=== PATIENT | female | born 1960 | race Caucasian/White ===

== ENCOUNTER 2016-11-19 20:07 | Emergency (ER) | payer OTHER, SELFPAY ==
--- NOTE | 2016-11-19 21:09 | ERPHSYRPT ---
- History of Present Illness Time Seen by Provider: 11/19/16 21:03 Source: patient Exam Limitations: no limitations Patient Subjective Stated Complaint: Pt sts sore throat - feels like knives - rates pain 8/10 x 2 days with intermittent productive cough - yellow/white sputum. Sts pain in chest with coughing, deep breathing. Pt sts recently around grandson who was sick. Sts no fever. Sts body aches. Sts vomited x 1 last night after coughing fit. Denies nausea. Triage Nursing Assessment: Pt alert, oriented, answers all questions appropriately. Skin p/w/d, resps non-labored. Pt ambulatory to tx room without difficulty steady gait noted. Lung sounds clear equal bilat, no wheezes, rales, rhonchi noted. Heart RRR. SPO2 97% room air. Physician History: This is a 56-year-old morbidly obese white female with history of peripheral neuropathy, congestive heart failure coronary artery disease kidney disease, hypercholesterolemia, high blood pressure, myocardial infarction, sleep apnea, diabetes Patient arrives with complaint of sore throat for 2 days states she's been coughing yellow sputum cough has been intermittent the patient has not had any fever she does have diffuse body aches, symptoms for 2 days Patient has not been vomiting she has no chest pain She is not short of breath Patient is on chronic narcotic analgesia patient apparently takes hydrocodone 10 /325 she states that she has not been taking as much as prescribed the last couple of days. Past medical history includes referral vascular disease, congestive heart failure, coronary artery disease, hypercholesterolemia, high blood pressure, myocardial infarction, sleep apnea, diabetes type 2, fibromyalgia, Crohn's disease, anxiety, depression, clot in the lower left arm, shingles Past surgical history includes cardiac catheter, , tubal ligation, kidney stones removed, D&C Timing/Duration: yesterday Severity: moderate Modifying Factors: Improves With: nothing Associated Symptoms: cough, malaise, other (sore throat), No nausea, No vomiting , No abdominal pain, No shortness of breath, No heartburn, No diaphoresis, No chills, No chest pain, No fever, No headaches, No loss of appetite, No rash, No syncope, No seizure, No weakness Allergies/Adverse Reactions: cyclobenzaprine HCl [From Flexeril] Allergy (Mild, Verified 10/11/16 15:17) Rash Sulfa (Sulfonamide Antibiotics) [Sulfa(Sulfonamide Antibiotics)] Allergy (Mild, Verified 07/21/16 15:17) Rash adhesive Allergy (Verified 07/21/16 15:17) nalbuphine HCl [From Nubain] Adverse Reaction (Intermediate, Verified 07/21/16 15:17) Stomach Cramps patient states she had stomach "burning" and that her legs felt like "rubber bands" meperidine HCl [From Demerol] Adverse Reaction (Mild, Verified 07/21/16 15:17) Vomiting Home Medications: Alprazolam 1 mg [Xanax 1 mg] 1 mg PO TIDPRN PRN 03/17/16 [History] Atorvastatin Calcium [Lipitor] 10 mg PO DAILY 03/17/16 [History] Carvedilol 6.25 mg [Coreg 6.25 MG] 6.25 mg PO BID 03/17/16 [History] Doxycycline Hyclate 100 mg [Vibramycin 100 MG] 100 mg PO DAILY 03/17/16 [ History] Duloxetine HCl 60 mg PO DAILY 03/17/16 [History] Ergocalciferol (Vitamin D2) [Vitamin D2] 50,000 unit PO Q7D 03/17/16 [History] Glyburide 5 mg [Micronase 5 MG] 5 mg PO BID 03/17/16 [History] Hydrochlorothiazide 25 mg [hydroDIURIL 25 MG] 12.5 mg PO DAILY 03/17/16 [ History] Hydrocodone/APAP 10/325 mg [[place] 10/325 MG Tablet] 1 tab PO Q4H PRN PRN 03/17/16 [History] Isosorbide Mononitrate 60 mg [Imdur 60MG] 120 mg PO DAILY 03/17/16 [History] Magnesium Oxide 400 mg [Mag-Ox 400] 800 mg PO DAILY 03/17/16 [History] Meclizine HCl 25 mg [Antivert 25 mg] 25 mg PO TIDPRN 03/17/16 [History] Mesalamine [Pentasa] 1,000 mg PO TID 03/17/16 [History] Metformin HCl 1000 mg [Glucophage 1000 MG] 1,000 mg PO BID 03/17/16 [History] Methocarbamol 500 mg [Robaxin 500 MG] 500 mg PO QIDPRN PRN 03/17/16 [ History] Metoclopramide HCl 10 mg [Reglan 10 MG] 10 mg PO BID PRN PRN 03/17/16 [ History] Omeprazole 20 MG [Prilosec 20 mg] 20 mg PO BID 03/17/16 [History] Sitagliptin Phosphate 50 MG [Januvia 50 MG] 100 mg PO DAILY 03/17/16 [ History] Nitroglycerin 0.4 mg Tablet [Nitrostat 0.4 MG Tablet] 0.4 mg SL Q5MIN PRN MR X 3 PRN 06/15/16 [History] Aripiprazole 10 mg [Abilify 10 MG] 2 mg HS 08/08/16 [History] Morphine Sulfate Cr 30 mg [Ms Contin 30 mg] 30 mg PO Q12H PRN PRN [History] Aspirin 81 gm Chew [Baby Aspirin 81 mg Chew] 81 mg PO DAILY 10/08/16 [ History] Nitroglycerin [Nitro-Dur] 0.3 mg TD DAILY 10/08/16 [History] Hx Tetanus, Diphtheria Vaccination/Date Given: No Hx Influenza Vaccination/Date Given: No Hx Pneumococcal Vaccination/Date Given: No Immunizations Up to Date: No - Review of Systems Constitutional: No Fever, No Chills Eyes: No Symptoms Ears, Nose, & Throat: Throat Pain, No Ear Pain, No Ear Discharge, No Hearing Changes, No Tinnitus, No Nose Pain, No Nose Congestion, No Nose Discharge, No Sinus Drainage, No Epistaxis, No Mouth Pain, No Mouth Swelling, No Loose Teeth, No Throat Swelling, No Hoarse, No Painful Swallowing, No Snoring, No Stridor Respiratory: Cough, No Cyanosis, No Dyspnea, No Dyspnea on Exertion ([place]), No Stridor, No Wheezing Cardiac: No Chest Pain, No Edema, No Syncope Abdominal/Gastrointestinal: No Abdominal Pain, No Nausea, No Vomiting, No Diarrhea Genitourinary Symptoms: No Dysuria Musculoskeletal: Myalgias, No Arthralgias, No Back Pain, No Neck Pain, No Deformity, No Fall, No Injury, No Joint Redness, No Joint Pain, No Joint Swelling Skin: No Rash Neurological: No Dizziness, No Focal Weakness, No Sensory Changes Psychological: No Symptoms Endocrine: No Symptoms All Other Systems: Reviewed and Negative - Past Medical History Pertinent Past Medical History: Yes Neurological History: Peripheral Neuropathy, Other ENT History: No Pertinent History Cardiac History: Congestive Heart Failure, Coronary Artery Disease, High Cholesterol, Hypertension, Myocardial Infarction ([place]) Respiratory History: Sleep Apnea Endocrine Medical History: Diabetes Type II Musculoskeletal History: Fibromyalgia GI Medical History: Colitis, Crohns Disease History: Other Psycho-Social History: Anxiety, Depression Female Reproductive Disorders: No Pertinent History Other Medical History: superficial blood clot lower left arm last admission dx with shingles 06/2016, dizziness, chronic pain - Past Surgical History Past Surgical History: Yes Neuro Surgical History: No Pertinent History Cardiac: Cardiac Catheterization Respiratory: No Pertinent History Gastrointestinal: Other Genitourinary: Other Musculoskeletal: No Pertinent History Female Surgical History: Section, Tubal Ligation Other Surgical History: KIDNEY STONE REMOVAL, D&C - Social History Smoking Status: Never smoker Exposure to second hand smoke: No Alcohol Use: None Drug Use: none Patient Lives Alone: No Significant Family History: diabetes, hypertension - Female History Hx Last Menstrual Period: post-menopausal Hx Now: No - Nursing Vital Signs Nursing Vital Signs: Initial Vital Signs Temperature 97.8 F Temperature Source Oral Pulse Rate 100 Respiratory Rate 20 Blood Pressure [] 140/92 Pain Intensity 7 - Physical Exam General Appearance: no apparent distress, alert Eye Exam: PERRL/EOMI, eyes nml inspection Ears, Nose, Throat Exam: TMs normal, moist mucous membranes, pharyngeal erythema , No pharynx normal (throat mildly erythematous), No TM abnormal (R), No TM abnormal (L) Neck Exam: normal inspection, non-tender, supple, full range of motion Respiratory Exam: normal breath sounds, lungs clear, airway intact, No chest tenderness, No respiratory distress, No diminished breath sounds, No accessory muscle use, No prolonged expirations, No crackles/rales, No rhonchi, No wheezing , No stridor, No pleural rub Cardiovascular Exam: regular rate/rhythm, normal heart sounds, normal peripheral pulses Gastrointestinal/Abdomen Exam: soft, normal bowel sounds, No tenderness, No mass Back Exam: normal inspection, normal range of motion, No CVA tenderness, No vertebral tenderness Extremity Exam: normal inspection, normal range of motion, pelvis stable Neurologic Exam: alert, oriented x 3, cooperative, normal mood/affect, nml cerebellar function, nml station & gait, sensation nml, No motor deficits Lymphatic Exam: No adenopathy SpO2 Interpretation: normal (97%) SpO2: 97 Oxygen Delivery: Room Air - Course Nursing assessment & vital signs reviewed: Yes - Radiology Exams Chest X-ray Interpretation: Interpreted by me (no acute disease process noted), Negative, No Pneumonia, No Pneumothorax Ordered Tests: Active Orders 24 hr Category Date Time Status CHEST 1 VIEW (PORTABLE) Stat Exams 11/19/16 21:03 Taken CULTURE, THROAT Stat Lab 11/19/16 21:10 Received STREP SCREEN-BETA A Stat Lab 11/19/16 21:10 Completed Lab/Rad Data: Laboratory Results 11/19/16 11/19/16 Range/Units 21:10 21:10 Streptococcus Screen NEGATIVE (Negative) Resp Infection Panel NEGATIVE (Negative) - Progress Progress: improved Progress Note: 11/19/16 22:48 Patient has the flu flu swab positive for influenza A. Will place patient on Tamiflu. Patient has narcotic analgesia at home. Will discharge. - Departure Time of Disposition: 22:49 Departure Disposition: Home Clinical Impression: Influenza A, Cough, Sore throat Condition: Fair Critical Care Time: No Referrals: CALVIN PALOMINO [Primary Care Provider] - Additional Instructions: Return home. Tamiflu 75 mg orally twice a day for 5 days. Pain medications as prescribed by your family doctor. Follow-up with your family doctor. Return for acute distress or for severe symptoms. Prescriptions: Oseltamivir 75 mg [Tamiflu 75MG Capsule] 75 mg PO BID #10 cap
[2016-11-19 22:36] VITALS: BP 140/92; PULSE 100
[2016-11-19 22:50] VITALS: O2SAT 97
[2016-11-19] MEDS ORDERED: Tamiflu 75MG Capsule PO ONE ×2 (22:50→22:55)
--- NOTE | 2016-11-20 08:46 | XRAY ---
Indication: Cough. COPD. Comparison: October 08, 2016 Portable chest remains clear. Heart is not enlarged. Bony thorax intact. No new/acute findings.
== END 2016-11-19 23:13 | disposition home or self-care (01) ==
LOC: ED 20:07
DX: J44.1 Chronic obstructive pulmonary disease with (acute) exacerbation (principal); R05 Cough; J02.9 Acute pharyngitis, unspecified; Z79.84 Long term (current) use of oral hypoglycemic drugs; Z79.899 Other long term (current) drug therapy
CPT/HCPCS: 71010; 87070; 87430; 87631; 99282

== ENCOUNTER 2016-11-22 11:46 | Emergency (ER) | payer OTHER, SELFPAY ==
--- NOTE | 2016-11-22 12:13 | ERPHSYRPT ---
- History of Present Illness Time Seen by Provider: 11/22/16 12:10 Source: patient Exam Limitations: no limitations Patient Subjective Stated Complaint: cough Triage Nursing Assessment: was seen on and diagnosed with flu and given tamiflu. pt states she still has cough with no sputum production. denies fever. skin warm/dry. oral intake normal. denies pain with urination or bowels. raspy cough noted- lungs diminshed Physician History: c/o cough for 2-3 days was seen on and diagnosed with flu and given tamiflu. pt states she still has cough with no sputum production. denies fever. Allergies/Adverse Reactions: cyclobenzaprine HCl [From Flexeril] Allergy (Mild, Verified 11/22/16 11:58) Rash Sulfa (Sulfonamide Antibiotics) [Sulfa(Sulfonamide Antibiotics)] Allergy (Mild, Verified 11/22/16 11:58) Rash adhesive Allergy (Verified 11/22/16 11:58) nalbuphine HCl [From Nubain] Adverse Reaction (Intermediate, Verified 11/22/16 11:58) Stomach Cramps patient states she had stomach "burning" and that her legs felt like "rubber bands" meperidine HCl [From Demerol] Adverse Reaction (Mild, Verified 11/22/16 11:58) Vomiting Home Medications: Alprazolam 1 mg [Xanax 1 mg] 1 mg PO TIDPRN PRN 03/17/16 [History] Atorvastatin Calcium [Lipitor] 10 mg PO DAILY 03/17/16 [History] Carvedilol 6.25 mg [Coreg 6.25 MG] 6.25 mg PO BID 03/17/16 [History] Doxycycline Hyclate 100 mg [Vibramycin 100 MG] 100 mg PO DAILY 03/17/16 [ History] Duloxetine HCl 60 mg PO DAILY 03/17/16 [History] Ergocalciferol (Vitamin D2) [Vitamin D2] 50,000 unit PO Q7D 03/17/16 [History] Glyburide 5 mg [Micronase 5 MG] 5 mg PO BID 03/17/16 [History] Hydrochlorothiazide 25 mg [hydroDIURIL 25 MG] 12.5 mg PO DAILY 03/17/16 [ History] Hydrocodone/APAP 10/325 mg [[place] 10/325 MG Tablet] 1 tab PO Q4H PRN PRN 03/17/16 [History] Isosorbide Mononitrate 60 mg [Imdur 60MG] 120 mg PO DAILY 03/17/16 [History] Magnesium Oxide 400 mg [Mag-Ox 400] 800 mg PO DAILY 03/17/16 [History] Meclizine HCl 25 mg [Antivert 25 mg] 25 mg PO TIDPRN 03/17/16 [History] Mesalamine [Pentasa] 1,000 mg PO TID 03/17/16 [History] Metformin HCl 1000 mg [Glucophage 1000 MG] 1,000 mg PO BID 03/17/16 [History] Methocarbamol 500 mg [Robaxin 500 MG] 500 mg PO QIDPRN PRN 03/17/16 [ History] Metoclopramide HCl 10 mg [Reglan 10 MG] 10 mg PO BID PRN PRN 03/17/16 [ History] Omeprazole 20 MG [Prilosec 20 mg] 20 mg PO BID 03/17/16 [History] Sitagliptin Phosphate 50 MG [Januvia 50 MG] 100 mg PO DAILY 03/17/16 [ History] Nitroglycerin 0.4 mg Tablet [Nitrostat 0.4 MG Tablet] 0.4 mg SL Q5MIN PRN MR X 3 PRN 06/15/16 [History] Aripiprazole 10 mg [Abilify 10 MG] 2 mg HS 08/08/16 [History] Morphine Sulfate Cr 30 mg [Ms Contin 30 mg] 30 mg PO Q12H PRN PRN [History] Aspirin 81 gm Chew [Baby Aspirin 81 mg Chew] 81 mg PO DAILY 10/08/16 [ History] Nitroglycerin [Nitro-Dur] 0.3 mg TD DAILY 10/08/16 [History] Hx Tetanus, Diphtheria Vaccination/Date Given: Yes Hx Influenza Vaccination/Date Given: No Hx Pneumococcal Vaccination/Date Given: Yes Immunizations Up to Date: Yes - Review of Systems Constitutional: No Symptoms Eyes: No Symptoms Ears, Nose, & Throat: No Symptoms Respiratory: Cough Cardiac: No Symptoms Abdominal/Gastrointestinal: No Symptoms Genitourinary Symptoms: No Symptoms Musculoskeletal: No Symptoms - Past Medical History Pertinent Past Medical History: Yes Neurological History: Peripheral Neuropathy, Other ENT History: No Pertinent History Cardiac History: Congestive Heart Failure, Coronary Artery Disease, High Cholesterol, Hypertension, Myocardial Infarction ([place]) Respiratory History: Sleep Apnea Endocrine Medical History: Diabetes Type II Musculoskeletal History: Fibromyalgia GI Medical History: Colitis, Crohns Disease History: Other Psycho-Social History: Anxiety, Depression Female Reproductive Disorders: No Pertinent History Other Medical History: superficial blood clot lower left arm last admission dx with shingles 06/2016, dizziness, chronic pain - Past Surgical History Past Surgical History: Yes Neuro Surgical History: No Pertinent History Cardiac: Cardiac Catheterization Respiratory: No Pertinent History Gastrointestinal: Other Genitourinary: Other Musculoskeletal: No Pertinent History Female Surgical History: Section, Tubal Ligation Other Surgical History: KIDNEY STONE REMOVAL, D&C - Social History Smoking Status: Never smoker Exposure to second hand smoke: No Alcohol Use: None Drug Use: none Patient Lives Alone: No Significant Family History: diabetes, hypertension - Female History Hx Now: No - Nursing Vital Signs Nursing Vital Signs: Initial Vital Signs Temperature 98.0 F Temperature Source Oral Pulse Rate 86 Respiratory Rate 22 Blood Pressure [Right Arm] 144/91 Pain Intensity 0 - Physical Exam General Appearance: no apparent distress Eye Exam: PERRL/EOMI Ears, Nose, Throat Exam: normal ENT inspection Neck Exam: normal inspection Respiratory Exam: normal breath sounds Cardiovascular Exam: regular rate/rhythm SpO2: 95 Oxygen Delivery: Room Air - Course Nursing assessment & vital signs reviewed: Yes - Progress Progress: unchanged Air Movement: good Blood Culture(s) Obtained: No Antibiotics given: No Counseled pt/family regarding: diagnosis, need for follow-up - Departure Time of Disposition: 12:11 Departure Disposition: Home Clinical Impression: Influenza A, Cough Condition: Stable Critical Care Time: No Referrals: CALVIN PALOMINO [Primary Care Provider] - Instructions: Cough -- Adult Additional Instructions: VIRAL ILLNESS 1. Rest at home and take any prescribed medications as directed or until gone. 2. Offer plenty of fluids as tolerated. 3. Acetaminophen or Ibuprofen as directed. 4. Be sure to follow up with your family physician or return to the emergency department if symptoms change or become worse. Prescriptions: Guaifenesin/Codeine Phos [Cheratussin AC Syrup] 5 ml PO QID #100 liquid
[2016-11-22 12:25] VITALS: BP 144/70; PULSE 87; O2SAT 97
== END 2016-11-22 12:25 | disposition home or self-care (01) ==
LOC: ED 11:46
DX: J11.1 Influenza due to unidentified influenza virus with other respiratory manifestations (principal); R05 Cough; I50.9 Heart failure, unspecified; I25.10 Atherosclerotic heart disease of native coronary artery without angina pectoris; E78.00 Pure hypercholesterolemia, unspecified; I10 Essential (primary) hypertension; I25.2 Old myocardial infarction
CPT/HCPCS: 99281; 99282

== ENCOUNTER 2017-02-05 13:02 | Emergency (ER) | payer MEDICAID ==
[2017-02-05] MEDS ORDERED: Sodium Chloride 0.9% 1000 ML 1,000 ML IV SCH (13:45)
[2017-02-05] MEDS ORDERED: Sodium Chloride 0.9% 1000 ML 1,000 ML ONE (13:50)
--- NOTE | 2017-02-05 13:50 | ERPHSYRPT ---
- History of Present Illness Time Seen by Provider: 02/05/17 13:46 Historian: patient Exam Limitations: no limitations Patient Subjective Stated Complaint: states having blood in stools since yesterday. hx crohns and UC. states it flares up every year. Triage Nursing Assessment: ambulated to room per self without difficulty. skin w/d, color normal. Physician History: 56-year-old white female with Crohn's arrives with complaints of blood in her stools since 2-3 days. She denies any nausea no vomiting no abdominal pain. Patient states she has a history of Crohn's she states that she cannot get her Pentaza filled without prior authorization Patient is not complaining of dizziness she is not short of breath Past medical history includes peripheral neuropathy, diabetes, sleep apnea, coronary artery disease, hypercholesterolemia, high blood pressure, [place], colitis , fibromyalgia, anxiety, depression, superficial blood clot in the left lower arm, shingles, chronic pain. Past surgical history includes cardiac catheter, tubal ligation, kidney stones Timing/Duration: day(s) (2-3 days) Activities at Onset: none Abdominal Pain Onset Location: other (no pain) Pain Radiation: other (no pain) Severity of Pain-Max: none Severity of Pain-Current: none Modifying Factors: Improves With: other (patient is out of her pentaza) Associated Symptoms: No back, No chest pain, No diaphoresis, No diarrhea, No fever/chills, No fatigue, No headache, No heartburn, No loss of appetite, No nausea, No neck pain, No rash, No shortness of breath, No syncope, No vomiting, No weakness Previous symptoms: same symptoms as today Allergies/Adverse Reactions: cyclobenzaprine HCl [From Flexeril] Allergy (Mild, Verified 02/05/17 13:14) Rash Sulfa (Sulfonamide Antibiotics) [Sulfa(Sulfonamide Antibiotics)] Allergy (Mild, Verified 02/05/17 13:14) Rash adhesive Allergy (Verified 02/05/17 13:14) nalbuphine HCl [From Nubain] Adverse Reaction (Intermediate, Verified 02/05/17 13:14) Stomach Cramps patient states she had stomach "burning" and that her legs felt like "rubber bands" meperidine HCl [From Demerol] Adverse Reaction (Mild, Verified 02/05/17 13:14) Vomiting Home Medications: Alprazolam 1 mg [Xanax 1 mg] 1 mg PO TIDPRN PRN 03/17/16 [History] Atorvastatin Calcium [Lipitor] 10 mg PO HS 03/17/16 [History] Carvedilol 6.25 mg [Coreg 6.25 MG] 6.25 mg PO BID 03/17/16 [History] Doxycycline Hyclate 100 mg [Vibramycin 100 MG] 100 mg PO DAILY 03/17/16 [ History] Duloxetine HCl 60 mg PO DAILY 03/17/16 [History] Ergocalciferol (Vitamin D2) [Vitamin D2] 50,000 unit PO Q7D 03/17/16 [History] Glyburide 5 mg [Micronase 5 MG] 5 mg PO BID 03/17/16 [History] Hydrochlorothiazide 25 mg [hydroDIURIL 25 MG] 25 mg PO DAILY 03/17/16 [ History] Hydrocodone/APAP 10/325 mg [[address] 10/325 MG Tablet] 1 tab PO Q4H PRN PRN 03/17/16 [History] Isosorbide Mononitrate 60 mg [Imdur 60MG] 120 mg PO DAILY 03/17/16 [History] Magnesium Oxide 400 mg [Mag-Ox 400] 800 mg PO DAILY 03/17/16 [History] Meclizine HCl 25 mg [Antivert 25 mg] 25 mg PO TIDPRN 03/17/16 [History] Mesalamine [Pentasa] 500 mg PO BID 03/17/16 [History] Metformin HCl 1000 mg [Glucophage 1000 MG] 1,000 mg PO BID 03/17/16 [History] Methocarbamol 500 mg [Robaxin 500 MG] 500 mg PO QIDPRN PRN 03/17/16 [ History] Omeprazole 20 MG [Prilosec 20 mg] 20 mg PO BID 03/17/16 [History] Sitagliptin Phosphate 50 MG [Januvia 50 MG] 100 mg PO DAILY 03/17/16 [ History] Nitroglycerin 0.4 mg Tablet [Nitrostat 0.4 MG Tablet] 0.4 mg SL Q5MIN PRN MR X 3 PRN 06/15/16 [History] Aripiprazole 10 mg [Abilify 10 MG] 2 mg HS 08/08/16 [History] Aspirin 81 gm Chew [Baby Aspirin 81 mg Chew] 81 mg PO DAILY 10/08/16 [ History] Nitroglycerin [Nitro-Dur] 0.3 mg TD DAILY 10/08/16 [History] Loperamide HCl [Anti-Diarrheal] 2 mg PO .PRN 01/08/17 [History] Primidone 50 MG [Mysoline 50Mg] 50 mg PO TID 02/05/17 [History] Hx Tetanus, Diphtheria Vaccination/Date Given: Yes Hx Influenza Vaccination/Date Given: No Hx Pneumococcal Vaccination/Date Given: Yes - Review of Systems Constitutional: No Fever, No Chills Eyes: No Symptoms Ears, Nose, & Throat: No Symptoms Respiratory: No Symptoms Cardiac: No Chest Pain, No Edema, No Syncope Abdominal/Gastrointestinal: Hematochezia, No Abdominal Pain, No Nausea, No Vomiting, No Diarrhea Genitourinary Symptoms: No Dysuria Musculoskeletal: No Back Pain, No Neck Pain Skin: No Rash Neurological: No Dizziness, No Focal Weakness, No Sensory Changes Psychological: No Symptoms Endocrine: No Symptoms All Other Systems: Reviewed and Negative - Past Medical History Pertinent Past Medical History: Yes Neurological History: Peripheral Neuropathy, Other ENT History: No Pertinent History Cardiac History: Congestive Heart Failure, Coronary Artery Disease, High Cholesterol, Hypertension, Myocardial Infarction ([place]) Respiratory History: Sleep Apnea Endocrine Medical History: Diabetes Type II Musculoskeletal History: Fibromyalgia GI Medical History: Colitis, Crohns Disease History: Other Psycho-Social History: Anxiety, Depression Female Reproductive Disorders: No Pertinent History Other Medical History: superficial blood clot lower left arm last admission dx with shingles 06/2016, dizziness, chronic pain - Past Surgical History Past Surgical History: Yes Neuro Surgical History: No Pertinent History Cardiac: Cardiac Catheterization Respiratory: No Pertinent History Gastrointestinal: Other Genitourinary: Other Musculoskeletal: No Pertinent History Female Surgical History: Section, Tubal Ligation Other Surgical History: KIDNEY STONE REMOVAL, D&C - Social History Smoking Status: Never smoker Exposure to second hand smoke: No Alcohol Use: None Drug Use: none Patient Lives Alone: No Significant Family History: diabetes, hypertension - Female History Hx Now: No - Nursing Vital Signs Nursing Vital Signs: Initial Vital Signs Temperature 97.6 F Temperature Source Oral Pulse Rate 72 Respiratory Rate 16 Blood Pressure [Right Arm] 145/89 Pain Intensity 8 - Physical Exam General Appearance: no apparent distress, alert, other (well-developed morbidly obese white female n no acute distress) Eye Exam: PERRL/EOMI, eyes nml inspection Ears, Nose, Throat Exam: normal ENT inspection, pharynx normal, moist mucous membranes Neck Exam: normal inspection, non-tender, supple, full range of motion Respiratory Exam: normal breath sounds, lungs clear, No respiratory distress Cardiovascular Exam: regular rate/rhythm, normal heart sounds Gastrointestinal/Abdomen Exam: soft, No tenderness, No mass Rectal Exam: other (rectal examination: no obvious bleeding, moderate amount of loose stool) Back Exam: normal inspection, normal range of motion, No CVA tenderness, No vertebral tenderness Extremity Exam: normal inspection, normal range of motion, pelvis stable Neurologic Exam: alert, oriented x 3, cooperative, normal mood/affect, nml cerebellar function, sensation nml, No motor deficits Skin Exam: normal color, warm, dry SpO2 Interpretation: normal (97%) SpO2: 97 Oxygen Delivery: Room Air - Course Nursing assessment & vital signs reviewed: Yes Ordered Tests: Active Orders 24 hr Category Date Time Status IV Insertion STAT Care 02/05/17 13:45 Active Orthostatic Vital Signs STAT Care 02/05/17 14:13 Active CBC W DIFF Stat Lab 02/05/17 13:55 Completed CMP Stat Lab 02/05/17 13:55 Completed Occult Blood,Stool Other Stat Lab 02/05/17 14:14 Completed Medication Summary Generic Name Dose Route Start Last Admin Trade Name Freq PRN Reason Stop Dose Admin Sodium Chloride 1,000 mls @ 100 mls/hr 02/05/17 13:45 02/05/17 14:07 Sodium Chloride 0.9% 1000 Ml IV 03/07/17 13:44 100 mls/hr .Q10H MITCH Administration Lab/Rad Data: Laboratory Result Diagrams 02/05/17 13:55 02/05/17 13:55 Laboratory Results 02/05/17 02/05/17 02/05/17 Range/Units 14:14 13:55 13:55 WBC 8.2 (4.0-10.5) K/mm3 RBC 4.35 (4.1-5.4) M/mm3 Hgb 11.1 L (12.0-16.0) gm/dl Hct 36.5 (35-47) % MCV 83.9 (78-100) fl MCH 25.5 L (26-32) pg MCHC 30.4 L (32-36) g/dl RDW 16.6 H (11.5-14.0) % Plt Count 203 (150-450) K/mm3 MPV 11.9 H (6-9.5) fl Gran % 77.3 H (36.0-66.0) % Lymphocytes % 12.0 L (24.0-44.0) % Monocytes % 7.0 (0.0-12.0) % Eosinophils % 3.3 (0.00-5.0) % Basophils % 0.4 (0.0-0.4) % Basophils # 0.03 (0-0.4) Sodium 139 (136-145) mEq/L Potassium 3.9 (3.5-5.1) mEq/L Chloride 101 (98-107) mEq/L Carbon Dioxide 26.9 (21-32) mEq/L Anion Gap 15.3 H (5-15) MEQ/L BUN 17 (9-20) mg/dL Creatinine 0.99 (0.55-1.30) mg/dl Estimated GFR > 60 ML/MIN Glucose 131 H (70-110) MG/DL Calcium 8.8 (8.5-10.1) mg/dL Total Bilirubin 0.2 (0.2-1.0) mg/dL AST 17 (15-37) U/L ALT 23 (12-78) U/L Alkaline Phosphatase 96 (46-116) U/L Serum Total Protein 7.3 (6.4-8.2) gm/dL Albumin 3.2 L (3.4-5.0) g/dL Stool Occult Blood POSITIVE (Negative) - Progress Progress: improved Progress Note: 02/05/17 14:19 56-year-old white female with history of peripheral neuropathy, diabetes, sleep apnea, coronary artery disease, hypercholesterolemia 48 hours, high blood pressure, myocardial infarction, colitis Patient states she has ulcerative colitis she states that she is not able to fill her Pentaza without prior authorization She states she has had blood in her stools for 2-3 days patient states this consists of seeing some normal stool with blood surrounding it. She is not feeling dizzy she is not having abdominal pain. On physical examination patient has no gross bleeding she has a moderate amount of loose stool. CMP CBC has been ordered. Orthostatic vital signs have been ordered. Occult blood has been ordered. . 02/05/17 14:54 Patient's occult blood is positive in her stool. Patient with a hemoglobin of 11.1 hemoglobin was 12.03 days ago. Patient stable vital signs. Orthostatic vital signs show a heart rate of 72 and a blood pressure 133/85 laying down heart rate 102 but blood pressure rises to 145/89 standing up Patient is given 1 L of normal saline she is stable. Case is discussed with Dr. Holguin the patient's physician. Will go ahead and place patient on tapering prednisone. Patient to follow-up with Dr. Holguin next week sooner if problems. Patient to return for acute distress, severe symptoms. Diagnosis rectal bleeding. Ulcerative colitis. - Departure Time of Disposition: 14:57 Departure Disposition: Home Clinical Impression: Ulcerative colitis Qualifiers: Ulcerative colitis location: unspecified ulcerative colitis location Digestive disease complication type: unspecified complication Qualified Code(s): K51.919 - Ulcerative colitis, unspecified with unspecified complications Gastrointestinal bleeding Qualifiers: GI bleed type/associated pathology: unspecified gastrointestinal hemorrhage type Qualified Code(s): K92.2 - Gastrointestinal hemorrhage, unspecified Condition: Fair Critical Care Time: No Referrals: CALVIN HOLGUIN [Primary Care Provider] - Instructions: Gastrointestinal Bleeding Additional Instructions: Return home. Plenty of fluids clear fluids only 24-48 hours if abdominal pain. Tapering dose of prednisone as prescribed. Follow-up with Dr. Holguin next week call for an appointment follow-up sooner if problems worsening of condition. Return for acute distress severe symptoms.
[2017-02-05 14:05] LABS: BASOPHIL % 0.4 % (0.0-0.4); Eosinophil % 3.3 % (0.00-5.0); Granulocytes % 77.3 % (36.0-66.0); Mean Cell Volume 83.9 fl (78-100); Mean Corpuscular Hemoglobin 25.5 pg (26-32); Mean Platelet Volume 11.9 fl (6-9.5); Platelet Count 203 K/mm3 (150-450); Red Blood Count 4.35 M/mm3 (4.1-5.4); Red Cell Distribution Width 16.6 % (11.5-14.0); White Blood Count 8.2 K/mm3 (4.0-10.5)
[2017-02-05 14:24] VITALS: PULSE 72
[2017-02-05 14:31] LABS: ALBUMIN 3.2 g/dL (3.4-5.0); ALKALINE PHOSPHATASE 96 U/L (46-116); ANION GAP 15.3 MEQ/L (5-15); BILIRUBIN,TOTAL 0.2 mg/dL (0.2-1.0); BLOOD UREA NITROGEN 17 mg/dL (9-20); CHLORIDE 101 mEq/L (98-107); Carbon Dioxide 26.9 mEq/L (21-32); Glucose 131 MG/DL (70-110); Potassium 3.9 mEq/L (3.5-5.1); SGOT/AST 17 U/L (15-37); SGPT/ALT 23 U/L (12-78); SODIUM 139 mEq/L (136-145); Total Protein 7.3 gm/dL (6.4-8.2)
[2017-02-05 15:08] VITALS: BP 145/89
[2017-02-05 15:19] VITALS: O2SAT 97
== END 2017-02-05 15:35 | disposition home or self-care (01) ==
LOC: ED 13:02
DX: K51.919 Ulcerative colitis, unspecified with unspecified complications (principal); K92.2 Gastrointestinal hemorrhage, unspecified; G62.9 Polyneuropathy, unspecified; E11.9 Type 2 diabetes mellitus without complications; Z79.4 Long term (current) use of insulin; G47.30 Sleep apnea, unspecified; I25.10 Atherosclerotic heart disease of native coronary artery without angina pectoris; I50.9 Heart failure, unspecified; E78.00 Pure hypercholesterolemia, unspecified; I10 Essential (primary) hypertension; F41.8 Other specified anxiety disorders; M79.7 Fibromyalgia; I25.2 Old myocardial infarction; Z79.899 Other long term (current) drug therapy
CPT/HCPCS: 36000; 36415; 80053; 82272; 85025; 96360; 99284

== ENCOUNTER 2017-03-08 18:40 | Emergency (ER) | payer OTHER ==
--- NOTE | 2017-03-08 19:25 | ERPHSYRPT ---
- History of Present Illness Time Seen by Provider: 03/08/17 19:16 Historian: patient Exam Limitations: no limitations Patient Subjective Stated Complaint: PT REPORTS CHEST PAIN BEGINNING SEFERINO 2 HRS AGO-TOOK NITRO X 3 WITH NO RELIEF-REPORTS SOB BUT DENIES DIAPHOESIS OR NAUSEA Triage Nursing Assessment: PT PINK WARM ET [id number] NONLABORED-BILATERAL EDEMA NOTED TO LOWER EXTREMITIES Physician History: Pt. with left sided chest pain started at 5PM, while sitting. Pain was sharp, localized, eased after 1 minute and did not change with nitros X 3. CP at its worse 8/10 and now 5/10. States pain worse with expiration. Pt. wit palpitations but no N/V or diaphoresis. Denies recent cough, fever, chills, dizziness or weakness. Did note bilat. feet swelling. Recently had increase in BP meds. States had "heart attack' in 2004 but did not have any stents or CABG. Have had 3 card caths, last 10/24 which showed no blockages at that time. Recently had chemical stress test, which showed blockage. Timing/Duration: hour(s) (2), intermittent Activities at Onset: rest Quality: sharpness Location: other (L sided) Chest Pain Radiation: no radiation Severity of Pain-Max: moderate Severity of Pain-Current: moderate Modifying Factors: Improves With: other (expiration) Associated Symptoms: palpitations, edema, No hurts to breathe, No diaphoresis, No weakness, No syncope, No dizziness Prior Chest Pain/Cardiac Workup: cardiac cath, heart attack, stress test, recently seen/treated Nitro Today/Relief: 0.4 mg x 1 Aspirin Treatment Today: 81 mg x 1 Allergies/Adverse Reactions: cyclobenzaprine HCl [From Flexeril] Allergy (Mild, Verified 03/08/17 18:51) Rash Sulfa (Sulfonamide Antibiotics) [Sulfa(Sulfonamide Antibiotics)] Allergy (Mild, Verified 03/08/17 18:51) Rash adhesive Allergy (Verified 03/08/17 18:51) nalbuphine HCl [From Nubain] Adverse Reaction (Intermediate, Verified 03/08/17 18:51) Stomach Cramps patient states she had stomach "burning" and that her legs felt like "rubber bands" meperidine HCl [From Demerol] Adverse Reaction (Mild, Verified 03/08/17 18:51) Vomiting Home Medications: Alprazolam 1 mg [Xanax 1 mg] 1 mg PO TIDPRN PRN 03/17/16 [History] Atorvastatin Calcium [Lipitor] 10 mg PO HS 03/17/16 [History] Carvedilol 6.25 mg [Coreg 6.25 MG] 6.25 mg PO BID 03/17/16 [History] Doxycycline Hyclate 100 mg [Vibramycin 100 MG] 100 mg PO DAILY 03/17/16 [ History] Duloxetine HCl 60 mg PO DAILY 03/17/16 [History] Ergocalciferol (Vitamin D2) [Vitamin D2] 50,000 unit PO Q7D 03/17/16 [History] Glyburide 5 mg [Micronase 5 MG] 5 mg PO BID 03/17/16 [History] Hydrochlorothiazide 25 mg [hydroDIURIL 25 MG] 25 mg PO DAILY 03/17/16 [ History] Hydrocodone/APAP 10/325 mg [[place] 10/325 MG Tablet] 1 tab PO Q4H PRN PRN 03/17/16 [History] Isosorbide Mononitrate 60 mg [Imdur 60MG] 120 mg PO DAILY 03/17/16 [History] Magnesium Oxide 400 mg [Mag-Ox 400] 800 mg PO DAILY 03/17/16 [History] Meclizine HCl 25 mg [Antivert 25 mg] 25 mg PO TIDPRN 03/17/16 [History] Mesalamine [Pentasa] 500 mg PO BID 03/17/16 [History] Metformin HCl 1000 mg [Glucophage 1000 MG] 1,000 mg PO BID 03/17/16 [History] Methocarbamol 500 mg [Robaxin 500 MG] 500 mg PO QIDPRN PRN 03/17/16 [ History] Omeprazole 20 MG [Prilosec 20 mg] 20 mg PO BID 03/17/16 [History] Sitagliptin Phosphate 50 MG [Januvia 50 MG] 100 mg PO DAILY 03/17/16 [ History] Nitroglycerin 0.4 mg Tablet [Nitrostat 0.4 MG Tablet] 0.4 mg SL Q5MIN PRN MR X 3 PRN 06/15/16 [History] Aripiprazole 10 mg [Abilify 10 MG] 2 mg HS 08/08/16 [History] Aspirin 81 gm Chew [Baby Aspirin 81 mg Chew] 81 mg PO DAILY 10/08/16 [ History] Nitroglycerin [Nitro-Dur] 0.3 mg TD DAILY 10/08/16 [History] Loperamide HCl [Anti-Diarrheal] 2 mg PO .PRN 01/08/17 [History] Primidone 50 MG [Mysoline 50Mg] 50 mg PO TID 02/05/17 [History] Hx Tetanus, Diphtheria Vaccination/Date Given: Yes Hx Influenza Vaccination/Date Given: No Hx Pneumococcal Vaccination/Date Given: Yes Immunizations Up to Date: Yes - Review of Systems Constitutional: No Symptoms, No Fever, No Chills Eyes: No Symptoms Ears, Nose, & Throat: No Symptoms Respiratory: No Cough, No Dyspnea Cardiac: Chest Pain, Edema, Palpitations, No Syncope Abdominal/Gastrointestinal: No Symptoms, No Abdominal Pain, No Nausea, No Vomiting, No Diarrhea Genitourinary Symptoms: No Dysuria Musculoskeletal: No Back Pain, No Neck Pain Skin: No Rash Neurological: No Dizziness, No Focal Weakness, No Sensory Changes Psychological: No Symptoms Endocrine: No Symptoms Immunological/Allergic: No Symptoms All Other Systems: Reviewed and Negative - Past Medical History Pertinent Past Medical History: Yes Neurological History: Peripheral Neuropathy, Other ENT History: No Pertinent History Cardiac History: Congestive Heart Failure, Coronary Artery Disease, High Cholesterol, Hypertension, Myocardial Infarction ([place]) Respiratory History: Sleep Apnea Endocrine Medical History: Diabetes Type II Musculoskeletal History: Fibromyalgia GI Medical History: Colitis, Crohns Disease History: Other Psycho-Social History: Anxiety, Depression Female Reproductive Disorders: No Pertinent History Other Medical History: superficial blood clot lower left arm last admission dx with shingles 06/2016, dizziness, chronic pain - Past Surgical History Past Surgical History: Yes Neuro Surgical History: No Pertinent History Cardiac: Cardiac Catheterization Respiratory: No Pertinent History Gastrointestinal: Other Genitourinary: Other Musculoskeletal: No Pertinent History Female Surgical History: Section, Tubal Ligation Other Surgical History: KIDNEY STONE REMOVAL, D&C - Social History Smoking Status: Never smoker Exposure to second hand smoke: No Alcohol Use: None Drug Use: none Patient Lives Alone: No Significant Family History: diabetes, hypertension - Female History Hx Now: No - Nursing Vital Signs Nursing Vital Signs: Initial Vital Signs Temperature 98.4 F Temperature Source Oral Pulse Rate [Right Radial] 94 Pulse Rate 96 Respiratory Rate 14 Blood Pressure [Right Arm] 138/73 Pain Intensity 4 - Physical Exam General Appearance: no apparent distress, alert, obese Eye Exam: PERRL/EOMI, eyes nml inspection Ears, Nose, Throat Exam: normal ENT inspection, moist mucous membranes Neck Exam: normal inspection, non-tender, supple, full range of motion Respiratory Exam: normal breath sounds, lungs clear, No respiratory distress Cardiovascular Exam: regular rate/rhythm, normal heart sounds Gastrointestinal/Abdomen Exam: soft, No tenderness, No mass Back Exam: normal inspection, No CVA tenderness, No vertebral tenderness Extremity Exam: normal inspection, normal range of motion, pedal edema (non- pitting +1 at best.) Neurologic Exam: alert, oriented x 3, cooperative, supervisor roving II-XII nml as tested, normal mood/affect, sensation nml, No motor deficits Skin Exam: normal color, warm, dry SpO2: 96 Oxygen Delivery: Room Air Ordered Tests: Active Orders 24 hr Category Date Time Status [place] Cutter Operator STAT Care 03/08/17 19:33 Completed EKG-ER Only STAT Care 03/08/17 19:33 Completed IV Insertion STAT Care 03/08/17 19:05 Active IV Insertion STAT Care 03/08/17 19:33 Active CHEST 2 VIEWS (PA AND LAT) Stat Exams 03/08/17 19:33 Taken CHEST WITH CONTRAST [CT] Stat Exams 03/08/17 21:15 Ordered BMP Stat Lab 03/08/17 19:47 Completed CBC W DIFF Stat Lab 03/08/17 19:47 Completed CK-Creatinine Phosphokinase Stat Lab 03/08/17 19:47 Completed D-DIMER QUANTITATION Stat Lab 03/08/17 19:47 Completed NT PRO BNP Stat Lab 03/08/17 19:47 Completed TROPONIN Q3H Lab 03/08/17 19:47 Completed TROPONIN Q3H Lab 03/08/17 22:45 Ordered TROPONIN Q3H Lab 03/09/17 01:45 Ordered TROPONIN Q3H Lab 03/09/17 04:45 Ordered TROPONIN Q3H Lab 03/09/17 07:45 Ordered Medication Summary Discontinued Medications Generic Name Dose Route Start Last Admin Trade Name Fadia PRN Reason Stop Dose Admin Aspirin 324 mg 03/08/17 19:33 03/08/17 19:45 Baby Aspirin 81 Mg Chew PO 03/08/17 19:34 324 mg STAT ONE Administration Aspirin Confirm 03/08/17 19:41 Baby Aspirin 81 Mg Chew Administered 03/08/17 19:42 Dose 324 mg .ROUTE .STK-MED ONE Nitroglycerin 0.4 mg 03/08/17 19:33 03/08/17 19:45 Nitrostat 0.4 Mg (Ed) SL 03/08/17 19:34 0.4 mg STAT ONE Administration Nitroglycerin Confirm 03/08/17 19:42 Nitrostat 0.4 Mg (Ed) Administered 03/08/17 19:43 Dose 0.4 mg SL .STK-MED ONE Lab/Rad Data: Laboratory Result Diagrams 03/08/17 19:47 03/08/17 19:47 Laboratory Results 03/08/17 03/08/17 03/08/17 Range/Units 19:47 19:47 19:47 WBC (4.0-10.5) K/mm3 RBC (4.1-5.4) M/mm3 Hgb (12.0-16.0) gm/dl Hct (35-47) % MCV (78-100) fl MCH (26-32) pg MCHC (32-36) g/dl RDW (11.5-14.0) % Plt Count (150-450) K/mm3 MPV (6-9.5) fl Gran % (36.0-66.0) % Lymphocytes % (24.0-44.0) % Monocytes % (0.0-12.0) % Eosinophils % (0.00-5.0) % Basophils % (0.0-0.4) % Basophils # (0-0.4) D-Dimer 0.757 H* (0.00-0.49) mg/L Sodium 141 (136-145) mEq/L Potassium 3.9 (3.5-5.1) mEq/L Chloride 103 (98-107) mEq/L Carbon Dioxide 29.6 (21-32) mEq/L Anion Gap 11.9 (5-15) MEQ/L BUN 14 (9-20) mg/dL Creatinine 1.02 (0.55-1.30) mg/dl Estimated GFR 60 ML/MIN Glucose 163 H (70-110) MG/DL Calcium 9.0 (8.5-10.1) mg/dL Creatine Kinase 58 (26-192) U/L Troponin I 0.017 (0.000-0.056) ng/ml NT-Pro-B Natriuret Pep 70 (0-125) pg/ml 03/08/17 Range/Units 19:47 WBC 7.0 (4.0-10.5) K/mm3 RBC 4.02 L (4.1-5.4) M/mm3 Hgb 10.2 L (12.0-16.0) gm/dl Hct 34.2 L (35-47) % MCV 85.1 (78-100) fl MCH 25.3 L (26-32) pg MCHC 29.8 L (32-36) g/dl RDW 16.8 H (11.5-14.0) % Plt Count 207 (150-450) K/mm3 MPV 11.8 H (6-9.5) fl Gran % 65.3 (36.0-66.0) % Lymphocytes % 21.2 L (24.0-44.0) % Monocytes % 8.2 (0.0-12.0) % Eosinophils % 4.9 (0.00-5.0) % Basophils % 0.4 (0.0-0.4) % Basophils # 0.03 (0-0.4) D-Dimer (0.00-0.49) mg/L Sodium (136-145) mEq/L Potassium (3.5-5.1) mEq/L Chloride (98-107) mEq/L Carbon Dioxide (21-32) mEq/L Anion Gap (5-15) MEQ/L BUN (9-20) mg/dL Creatinine (0.55-1.30) mg/dl Estimated GFR ML/MIN Glucose (70-110) MG/DL Calcium (8.5-10.1) mg/dL Creatine Kinase (26-192) U/L Troponin I (0.000-0.056) ng/ml NT-Pro-B Natriuret Pep (0-125) pg/ml - Progress Progress: improved Air Movement: good Progress Note: 03/08/17 21:43 Pt. given ASA, Nitro that did seem to improve her symptoms. Pt exceed wt. limit for CT scanner for chest CT. Pt. also given Lovenox after speaking to Dr. June. Blood Culture(s) Obtained: No Antibiotics given: No Discussed with Dr.: Other (Dr. June, sterile preparation technician, notified and agrees to accepting pt.) Will see patient in: other (Transfer to [facility]) Counseled pt/family regarding: diagnosis - Departure Time of Disposition: 21:45 Departure Disposition: Transfer ([facility] accepted by Dr. June) Clinical Impression: Chest pain Condition: Stable Critical Care Time: No
[2017-03-08] MEDS ORDERED: Nitrostat 0.4 MG (ED) SL ONE ×2 (19:33→19:42)
[2017-03-08] MEDS ORDERED: BABY ASPIRIN 81 MG CHEW PO ONE (19:33)
[2017-03-08] MEDS ORDERED: BABY ASPIRIN 81 MG CHEW ONE (19:41)
[2017-03-08 19:51] LABS: BASOPHIL % 0.4 % (0.0-0.4); Eosinophil % 4.9 % (0.00-5.0); Granulocytes % 65.3 % (36.0-66.0); Lymphocytes % 21.2 % (24.0-44.0); Mean Cell Volume 85.1 fl (78-100); Mean Platelet Volume 11.8 fl (6-9.5); Monocytes % 8.2 % (0.0-12.0); Platelet Count 207 K/mm3 (150-450); Red Blood Count 4.02 M/mm3 (4.1-5.4); Red Cell Distribution Width 16.8 % (11.5-14.0)
[2017-03-08 19:53] LABS: Mean Corpuscular Hemoglobin 25.3 pg (26-32)
[2017-03-08 20:22] LABS: ANION GAP 11.9 MEQ/L (5-15); Carbon Dioxide 29.6 mEq/L (21-32); Potassium 3.9 mEq/L (3.5-5.1)
[2017-03-08] MEDS ORDERED: ENOXAPARIN SODIUM SQ ONE (21:55)
[2017-03-08 22:16] VITALS: BP 141/76; PULSE 86; O2SAT 98
--- NOTE | 2017-03-09 17:02 | XRAY ---
Exam: Two-view chest from 03/08/2017. Comparison: Two-view chest from 02/02/2017. Indication: Chest pain, no prior surgeries. Findings: Upright PA and lateral chest films were obtained. The transverse heart size is normal. A small epicardial fat-pad is seen at the left cardiophrenic angle. Moderate tortuosity of both the ascending and descending thoracic aorta is seen. The remainder of the boby and mediastinal structures appears unremarkable. No central vascular congestion is seen. The lungs are adequately expanded. No air space infiltrates or other suspicious parenchymal lung abnormality is seen. No pneumothorax or pleural effusion is seen. The visualized bones appear unremarkable. Impression: 1. No acute cardiopulmonary disease is seen.
== END 2017-03-08 22:51 | disposition short-term general hospital (02) ==
LOC: ED 18:40
DX: R07.89 Other chest pain (principal); R00.2 Palpitations; Z79.899 Other long term (current) drug therapy
CPT/HCPCS: 36000; 36415; 71020; 80048; 82550; 83880; 84484; 85025; 85379; 93005; 93041; 96372; 99285; J1650; A9270-GY

== ENCOUNTER 2017-03-10 17:35 | Emergency (ER) | payer OTHER ==
[2017-03-10 17:47] VITALS: O2SAT 96
--- NOTE | 2017-03-10 18:09 | ERPHSYRPT ---
- History of Present Illness Time Seen by Provider: 03/10/17 18:03 Historian: patient Exam Limitations: no limitations Patient Subjective Stated Complaint: PT REPORTS RIGHT FLANK PAIN BEGINNING YESTERDAY-DENIES DIFFICUTLY WITH URINATION=-DENIES FEVER Triage Nursing Assessment: PT PINK WARM ET [id number] SOFT ET NONTENDER TO PALP Timing/Duration: yesterday Activities at Onset: none Quality: aching Abdominal Pain Onset Location: suprapubic Pain Radiation: no radiation Severity of Pain-Max: mild Severity of Pain-Current: mild Modifying Factors: Improves With: nothing Associated Symptoms: denies symptoms Previous symptoms: same symptoms as today Allergies/Adverse Reactions: cyclobenzaprine HCl [From Flexeril] Allergy (Mild, Verified 03/10/17 17:48) Rash Sulfa (Sulfonamide Antibiotics) [Sulfa(Sulfonamide Antibiotics)] Allergy (Mild, Verified 03/10/17 17:48) Rash adhesive Allergy (Verified 03/10/17 17:48) nalbuphine HCl [From Nubain] Adverse Reaction (Intermediate, Verified 03/10/17 17:48) Stomach Cramps patient states she had stomach "burning" and that her legs felt like "rubber bands" meperidine HCl [From Demerol] Adverse Reaction (Mild, Verified 03/10/17 17:48) Vomiting Home Medications: Alprazolam 1 mg [Xanax 1 mg] 1 mg PO TIDPRN PRN 03/17/16 [History] Atorvastatin Calcium [Lipitor] 10 mg PO HS 03/17/16 [History] Carvedilol 6.25 mg [Coreg 6.25 MG] 6.25 mg PO BID 03/17/16 [History] Doxycycline Hyclate 100 mg [Vibramycin 100 MG] 100 mg PO DAILY 03/17/16 [ History] Duloxetine HCl 60 mg PO DAILY 03/17/16 [History] Ergocalciferol (Vitamin D2) [Vitamin D2] 50,000 unit PO Q7D 03/17/16 [History] Glyburide 5 mg [Micronase 5 MG] 5 mg PO BID 03/17/16 [History] Hydrochlorothiazide 25 mg [hydroDIURIL 25 MG] 25 mg PO DAILY 03/17/16 [ History] Hydrocodone/APAP 10/325 mg [[place] 10/325 MG Tablet] 1 tab PO Q4H PRN PRN 03/17/16 [History] Isosorbide Mononitrate 60 mg [Imdur 60MG] 120 mg PO DAILY 03/17/16 [History] Magnesium Oxide 400 mg [Mag-Ox 400] 800 mg PO DAILY 03/17/16 [History] Meclizine HCl 25 mg [Antivert 25 mg] 25 mg PO TIDPRN 03/17/16 [History] Mesalamine [Pentasa] 500 mg PO BID 03/17/16 [History] Metformin HCl 1000 mg [Glucophage 1000 MG] 1,000 mg PO BID 03/17/16 [History] Methocarbamol 500 mg [Robaxin 500 MG] 500 mg PO QIDPRN PRN 03/17/16 [ History] Omeprazole 20 MG [Prilosec 20 mg] 20 mg PO BID 03/17/16 [History] Sitagliptin Phosphate 50 MG [Januvia 50 MG] 100 mg PO DAILY 03/17/16 [ History] Nitroglycerin 0.4 mg Tablet [Nitrostat 0.4 MG Tablet] 0.4 mg SL Q5MIN PRN MR X 3 PRN 06/15/16 [History] Aripiprazole 10 mg [Abilify 10 MG] 2 mg HS 08/08/16 [History] Aspirin 81 gm Chew [Baby Aspirin 81 mg Chew] 81 mg PO DAILY 10/08/16 [ History] Nitroglycerin [Nitro-Dur] 0.3 mg TD DAILY 10/08/16 [History] Loperamide HCl [Anti-Diarrheal] 2 mg PO .PRN 01/08/17 [History] Primidone 50 MG [Mysoline 50Mg] 50 mg PO TID 02/05/17 [History] Hx Tetanus, Diphtheria Vaccination/Date Given: Yes Hx Influenza Vaccination/Date Given: No Hx Pneumococcal Vaccination/Date Given: Yes Immunizations Up to Date: Yes - Review of Systems Constitutional: No Fever, No Chills Eyes: No Symptoms Ears, Nose, & Throat: No Symptoms Respiratory: No Cough, No Dyspnea Cardiac: No Chest Pain, No Edema, No Syncope Abdominal/Gastrointestinal: Abdominal Pain Genitourinary Symptoms: No Dysuria Musculoskeletal: No Back Pain, No Neck Pain Skin: No Rash Neurological: No Dizziness, No Focal Weakness, No Sensory Changes Psychological: No Symptoms Endocrine: No Symptoms Hematologic/Lymphatic: No Symptoms Immunological/Allergic: No Symptoms All Other Systems: Reviewed and Negative - Past Medical History Pertinent Past Medical History: Yes Neurological History: Peripheral Neuropathy, Other ENT History: No Pertinent History Cardiac History: Congestive Heart Failure, Coronary Artery Disease, High Cholesterol, Hypertension, Myocardial Infarction (MT) Respiratory History: Sleep Apnea Endocrine Medical History: Diabetes Type II Musculoskeletal History: Fibromyalgia GI Medical History: Colitis, Crohns Disease History: Other Psycho-Social History: Anxiety, Depression Female Reproductive Disorders: No Pertinent History Other Medical History: superficial blood clot lower left arm last admission dx with shingles 06/2016, dizziness, chronic pain - Past Surgical History Past Surgical History: Yes Neuro Surgical History: No Pertinent History Cardiac: Cardiac Catheterization Respiratory: No Pertinent History Gastrointestinal: Other Genitourinary: Other Musculoskeletal: No Pertinent History Female Surgical History: Section, Tubal Ligation Other Surgical History: KIDNEY STONE REMOVAL, D&C - Social History Smoking Status: Never smoker Exposure to second hand smoke: No Alcohol Use: None Drug Use: none Patient Lives Alone: No Significant Family History: diabetes, hypertension - Female History Hx Now: No - Nursing Vital Signs Nursing Vital Signs: Initial Vital Signs Temperature 98.1 F Temperature Source Oral Pulse Rate 82 Respiratory Rate 18 Blood Pressure [Right Arm] 126/71 Pain Intensity 8 - Physical Exam General Appearance: mild distress Eye Exam: PERRL/EOMI, eyes nml inspection Ears, Nose, Throat Exam: normal ENT inspection, pharynx normal, moist mucous membranes Neck Exam: normal inspection, non-tender, supple, full range of motion Respiratory Exam: normal breath sounds, lungs clear, No respiratory distress Cardiovascular Exam: regular rate/rhythm, normal heart sounds Gastrointestinal/Abdomen Exam: tenderness Pelvic Exam: not done Rectal Exam: not done Back Exam: normal inspection, normal range of motion, No CVA tenderness, No vertebral tenderness Extremity Exam: normal inspection, normal range of motion, pelvis stable Neurologic Exam: alert, oriented x 3, cooperative, normal mood/affect, nml cerebellar function, sensation nml, No motor deficits Skin Exam: normal color, warm, dry SpO2 Interpretation: normal SpO2: 96 Oxygen Delivery: Room Air Lab/Rad Data: Laboratory Results 03/10/17 Range/Units 18:35 Ur Collection Type CLEAN CATCH Urine Color YELLOW (YELLOW) Urine Appearance CLOUDY (CLEAR) Urine pH 7.5 (5-6) Ur Specific [place] 1.015 (1.005-1.025) Urine Protein 30 (Negative) Urine Glucose (UA) NEGATIVE (NEGATIVE) mg/dL Urine Ketones NEGATIVE (NEGATIVE) Urine Nitrite NEGATIVE (NEGATIVE) Urine Bilirubin NEGATIVE (NEGATIVE) Urine Urobilinogen 0.2 (0-1) mg/dL Urine WBC (Auto) SMALL (NEGATIVE) Urine RBC (Auto) TRACE-INTACT (0-5) Jeff/ul Urine Microscopic WBC 25-50 (0-5) /HPF Ur Epithelial Cells FEW (FEW) /HPF Urine Bacteria MANY (NEGATIVE) /HPF Specimen Received [id number] - Progress Progress: improved - Departure Time of Disposition: 08:57 Departure Disposition: Home Clinical Impression: UTI (urinary tract infection) Condition: Stable Critical Care Time: No Referrals: CALVIN PALOMINO [Primary Care Provider] - Instructions: Urinary Tract Infection (UTI) Additional Instructions: You have a urinary tract infection. There is no indication that you have a kidney stone at this time. Take Macrobid 100 mg twice a day for 7 days. Take Tylenol and ibuprofen as needed for pain. Follow-up in one to 2 days. Prescriptions: Nitrofurantoin Macro 100 mg [Macrobid 100MG Capsule] 100 mg PO BID #14 capsule
--- NOTE | 2017-03-10 18:13 | ERPHSYRPT ---
- History of Present Illness Time Seen by Provider: 03/10/17 18:09 Source: patient Exam Limitations: no limitations Patient Subjective Stated Complaint: PT REPORTS RIGHT FLANK PAIN BEGINNING YESTERDAY-DENIES DIFFICUTLY WITH URINATION=-DENIES FEVER Triage Nursing Assessment: PT PINK WARM ET [id number] SOFT ET NONTENDER TO PALP Physician History: The patient is a morbidly obese 56-year-old female who complains of 2 days of right-sided low back pain. She was in a local hospital for 2 days and when she was being discharged yesterday she noted back pain. She thought it was because she was lying in the bed for 2 days. But is still hurts today. She thinks it might be a kidney stone because she has had a kidney stone in the past. She denies any other problems such as nausea vomiting or diarrhea. Her past medical history is significant for kidney stone, chronic back pain, diabetes, COPD, morbid obesity, ulcerative colitis, Crohn's disease, and hypertension. Timing/Duration: yesterday Method of Injury: other (lying in bed) Quality: aching Back Pain Location: lumbar spine, paraspinous muscles (right) Severity of Pain-Max: mild Severity of Pain-Current: mild Modifying Factors: Improves With: nothing Associated Symptoms: denies symptoms Previous symptoms: no prior history Allergies/Adverse Reactions: cyclobenzaprine HCl [From Flexeril] Allergy (Mild, Verified 03/10/17 17:48) Rash Sulfa (Sulfonamide Antibiotics) [Sulfa(Sulfonamide Antibiotics)] Allergy (Mild, Verified 03/10/17 17:48) Rash adhesive Allergy (Verified 03/10/17 17:48) nalbuphine HCl [From Nubain] Adverse Reaction (Intermediate, Verified 03/10/17 17:48) Stomach Cramps patient states she had stomach "burning" and that her legs felt like "rubber bands" meperidine HCl [From Demerol] Adverse Reaction (Mild, Verified 03/10/17 17:48) Vomiting Home Medications: Alprazolam 1 mg [Xanax 1 mg] 1 mg PO TIDPRN PRN 03/17/16 [History] Atorvastatin Calcium [Lipitor] 10 mg PO HS 03/17/16 [History] Carvedilol 6.25 mg [Coreg 6.25 MG] 6.25 mg PO BID 03/17/16 [History] Doxycycline Hyclate 100 mg [Vibramycin 100 MG] 100 mg PO DAILY 03/17/16 [ History] Duloxetine HCl 60 mg PO DAILY 03/17/16 [History] Ergocalciferol (Vitamin D2) [Vitamin D2] 50,000 unit PO Q7D 03/17/16 [History] Glyburide 5 mg [Micronase 5 MG] 5 mg PO BID 03/17/16 [History] Hydrochlorothiazide 25 mg [hydroDIURIL 25 MG] 25 mg PO DAILY 03/17/16 [ History] Hydrocodone/APAP 10/325 mg [[place] 10/325 MG Tablet] 1 tab PO Q4H PRN PRN 03/17/16 [History] Isosorbide Mononitrate 60 mg [Imdur 60MG] 120 mg PO DAILY 03/17/16 [History] Magnesium Oxide 400 mg [Mag-Ox 400] 800 mg PO DAILY 03/17/16 [History] Meclizine HCl 25 mg [Antivert 25 mg] 25 mg PO TIDPRN 03/17/16 [History] Mesalamine [Pentasa] 500 mg PO BID 03/17/16 [History] Metformin HCl 1000 mg [Glucophage 1000 MG] 1,000 mg PO BID 03/17/16 [History] Methocarbamol 500 mg [Robaxin 500 MG] 500 mg PO QIDPRN PRN 03/17/16 [ History] Omeprazole 20 MG [Prilosec 20 mg] 20 mg PO BID 03/17/16 [History] Sitagliptin Phosphate 50 MG [Januvia 50 MG] 100 mg PO DAILY 03/17/16 [ History] Nitroglycerin 0.4 mg Tablet [Nitrostat 0.4 MG Tablet] 0.4 mg SL Q5MIN PRN MR X 3 PRN 06/15/16 [History] Aripiprazole 10 mg [Abilify 10 MG] 2 mg HS 08/08/16 [History] Aspirin 81 gm Chew [Baby Aspirin 81 mg Chew] 81 mg PO DAILY 10/08/16 [ History] Nitroglycerin [Nitro-Dur] 0.3 mg TD DAILY 10/08/16 [History] Loperamide HCl [Anti-Diarrheal] 2 mg PO .PRN 01/08/17 [History] Primidone 50 MG [Mysoline 50Mg] 50 mg PO TID 02/05/17 [History] Hx Tetanus, Diphtheria Vaccination/Date Given: Yes Hx Influenza Vaccination/Date Given: No Hx Pneumococcal Vaccination/Date Given: Yes Immunizations Up to Date: Yes - Review of Systems Constitutional: No Fever, No Chills Eyes: No Symptoms Ears, Nose, & Throat: No Symptoms Respiratory: No Cough, No Dyspnea Cardiac: No Chest Pain, No Edema, No Syncope Abdominal/Gastrointestinal: Other, No Abdominal Pain, No Nausea, No Vomiting, No Diarrhea Genitourinary Symptoms: No Dysuria Musculoskeletal: Back Pain Skin: No Rash Neurological: No Dizziness, No Focal Weakness, No Sensory Changes Psychological: No Symptoms Endocrine: No Symptoms Hematologic/Lymphatic: No Symptoms Immunological/Allergic: No Symptoms All Other Systems: Reviewed and Negative - Past Medical History Pertinent Past Medical History: Yes Neurological History: Peripheral Neuropathy, Other ENT History: No Pertinent History Cardiac History: Congestive Heart Failure, Coronary Artery Disease, High Cholesterol, Hypertension, Myocardial Infarction (CT) Respiratory History: Sleep Apnea Endocrine Medical History: Diabetes Type II Musculoskeletal History: Fibromyalgia GI Medical History: Colitis, Crohns Disease History: Other Psycho-Social History: Anxiety, Depression Female Reproductive Disorders: No Pertinent History Other Medical History: superficial blood clot lower left arm last admission dx with shingles 06/2016, dizziness, chronic pain - Past Surgical History Past Surgical History: Yes Neuro Surgical History: No Pertinent History Cardiac: Cardiac Catheterization Respiratory: No Pertinent History Gastrointestinal: Other Genitourinary: Other Musculoskeletal: No Pertinent History Female Surgical History: Section, Tubal Ligation Other Surgical History: KIDNEY STONE REMOVAL, D&C - Social History Smoking Status: Never smoker Exposure to second hand smoke: No Alcohol Use: None Drug Use: none Patient Lives Alone: No Significant Family History: diabetes, hypertension - Female History Hx Now: No - Nursing Vital Signs Nursing Vital Signs: Initial Vital Signs Temperature 98.1 F Temperature Source Oral Pulse Rate 84 Respiratory Rate 18 Blood Pressure [Right Arm] 163/94 Pain Intensity 8 - Physical Exam General Appearance: no apparent distress, alert Eye Exam: PERRL/EOMI, eyes nml inspection Ears, Nose, Throat Exam: normal ENT inspection Neck Exam: normal inspection, non-tender, supple, full range of motion, No meningismus, No midline tenderness Respiratory Exam: normal breath sounds, lungs clear, No respiratory distress Cardiovascular Exam: regular rate/rhythm, normal heart sounds Gastrointestinal Exam: soft, No tenderness, No mass Pelvic Exam: not done Rectal Exam: not done Back Exam: muscle spasm (right paraspinous muscle) Extremity Exam: normal inspection, normal range of motion, No calf tenderness, No pedal edema Neurologic Exam: alert, oriented x 3, cooperative, manager reliability II-XII nml as tested, normal mood/affect, nml station & gait, sensation nml, No motor deficits Skin Exam: normal color, warm, dry, No rash SpO2 Interpretation: normal SpO2: 96 Oxygen Delivery: Room Air Ordered Tests: Active Orders 24 hr Category Date Time Status CULTURE,URINE Stat Lab 03/10/17 18:35 Received UA W/ MICROSCOPIC Stat Lab 03/10/17 18:35 Completed Lab/Rad Data: Laboratory Results 03/10/17 Range/Units 18:35 Ur Collection Type CLEAN CATCH Urine Color YELLOW (YELLOW) Urine Appearance CLOUDY (CLEAR) Urine pH 7.5 (5-6) Ur Specific [place] 1.015 (1.005-1.025) Urine Protein 30 (Negative) Urine Glucose (UA) NEGATIVE (NEGATIVE) mg/dL Urine Ketones NEGATIVE (NEGATIVE) Urine Nitrite NEGATIVE (NEGATIVE) Urine Bilirubin NEGATIVE (NEGATIVE) Urine Urobilinogen 0.2 (0-1) mg/dL Urine WBC (Auto) SMALL (NEGATIVE) Urine RBC (Auto) TRACE-INTACT (0-5) Jeff/ul Urine Microscopic WBC 25-50 (0-5) /HPF Ur Epithelial Cells FEW (FEW) /HPF Urine Bacteria MANY (NEGATIVE) /HPF Specimen Received [id number] - Progress Progress: unchanged Counseled pt/family regarding: diagnosis, need for follow-up - Departure Time of Disposition: 19:13 Departure Disposition: Home Clinical Impression: UTI (urinary tract infection) Condition: Stable Critical Care Time: No Additional Instructions: You have a urinary tract infection. There is no indication that you have a kidney stone at this time. Take Macrobid 100 mg twice a day for 7 days. Take Tylenol and ibuprofen as needed for pain. Follow-up in one to 2 days. Prescriptions: Nitrofurantoin Macro 100 mg [Macrobid 100MG Capsule] 100 mg PO BID #14 capsule
[2017-03-10 19:06] LABS: Collection Type CLEAN CATCH
[2017-03-10 19:07] LABS: COMPLETE URINE MICROSCOPIC? YES; Ph 7.5 (5-6)
[2017-03-10 19:08] LABS: Bacteria MANY /HPF (NEGATIVE); Epithelial Cells FEW /HPF (FEW); WBC 25-50 /HPF (0-5)
[2017-03-10 19:09] LABS: ADD URINE CULTURE? YES (NO)
[2017-03-10 19:26] VITALS: BP 126/71; PULSE 82
== END 2017-03-10 19:27 | disposition home or self-care (01) ==
LOC: ED 17:35
DX: N39.0 Urinary tract infection, site not specified (principal)
CPT/HCPCS: 81000; 87077; 87086; 87186; 99282

== ENCOUNTER 2017-05-17 15:44 | Emergency (ER) | payer OTHER ==
[2017-05-17 15:54] VITALS: O2SAT 96
--- NOTE | 2017-05-17 16:16 | ERPHSYRPT ---
- History of Present Illness Time Seen by Provider: 05/17/17 16:04 Source: patient, EMS Exam Limitations: no limitations Patient Subjective Stated Complaint: pt here for rectal bleeding for a week getting worse, bright red with a few clots.abd,back, leg pain, vomited x1 yesterday, took immoduium yesterday Triage Nursing Assessment: pt alert, resp easy,skin w/d pink, abd large and soft , swelling to feet Physician History: The patient is a morbidly obese 57-year-old female brought in by ambulance from home complaining of mild rectal bleeding for 2 weeks that may have gotten slightly worse today. She says she has GI bleeding at least once a month and usually gets prednisone from her primary care provider. She called her primary care provider and was told by the nurse to come to the ER. Her rectal bleeding has been bright red blood that she notices on the toilet paper after a bowel movement. Today there was slightly more blood on the toilet paper and she thought there might of been a blood clot. She has generalized abdominal pain. She denies nausea or vomiting. He her past medical history is significant for Crohn's disease, ulcerative colitis, morbid obesity, COPD, coronary artery disease, diabetes, hypertension, and anxiety. Timing/Duration: week(s) (2) Severity: mild Associated Symptoms: denies symptoms Allergies/Adverse Reactions: cyclobenzaprine HCl [From Flexeril] Allergy (Mild, Verified 05/17/17 15:55) Rash Sulfa (Sulfonamide Antibiotics) [Sulfa(Sulfonamide Antibiotics)] Allergy (Mild, Verified 05/17/17 15:55) Rash adhesive Allergy (Verified 05/17/17 15:55) nalbuphine HCl [From Nubain] Adverse Reaction (Intermediate, Verified 05/17/17 15:55) Stomach Cramps patient states she had stomach "burning" and that her legs felt like "rubber bands" meperidine HCl [From Demerol] Adverse Reaction (Mild, Verified 05/17/17 15:55) Vomiting Home Medications: Alprazolam 1 mg [Xanax 1 mg] 1 mg PO TIDPRN PRN 03/17/16 [History] Atorvastatin Calcium [Lipitor] 10 mg PO HS 03/17/16 [History] Carvedilol 6.25 mg [Coreg 6.25 MG] 12.5 mg PO BID 03/17/16 [History] Doxycycline Hyclate 100 mg [Vibramycin 100 MG] 100 mg PO DAILY 03/17/16 [ History] Duloxetine HCl 60 mg PO DAILY 03/17/16 [History] Ergocalciferol (Vitamin D2) [Vitamin D2] 50,000 unit PO Q7D 03/17/16 [History] Glyburide 5 mg [Micronase 5 MG] 5 mg PO BID 03/17/16 [History] Hydrochlorothiazide 25 mg [hydroDIURIL 25 MG] 25 mg PO DAILY 03/17/16 [ History] Hydrocodone/APAP 10/325 mg [[place] 10/325 MG Tablet] 1 tab PO Q4H PRN PRN 03/17/16 [History] Isosorbide Mononitrate 60 mg [Imdur 60MG] 120 mg PO DAILY 03/17/16 [History] Magnesium Oxide 400 mg [Mag-Ox 400] 800 mg PO DAILY 03/17/16 [History] Meclizine HCl 25 mg [Antivert 25 mg] 25 mg PO TIDPRN 03/17/16 [History] Mesalamine [Pentasa] 500 mg PO BID 03/17/16 [History] Metformin HCl 1000 mg [Glucophage 1000 MG] 1,000 mg PO BID 03/17/16 [History] Methocarbamol 500 mg [Robaxin 500 MG] 1,000 mg PO QIDPRN PRN 03/17/16 [ History] Omeprazole 20 MG [Prilosec 20 mg] 20 mg PO BID 03/17/16 [History] Sitagliptin Phosphate 50 MG [Januvia 50 MG] 100 mg PO DAILY 03/17/16 [ History] Nitroglycerin 0.4 mg Tablet [Nitrostat 0.4 MG Tablet] 0.4 mg SL Q5MIN PRN MR X 3 PRN 06/15/16 [History] Aripiprazole 10 mg [Abilify 10 MG] 2 mg HS 08/08/16 [History] Aspirin 81 gm Chew [Baby Aspirin 81 mg Chew] 81 mg PO DAILY 10/08/16 [ History] Nitroglycerin [Nitro-Dur] 0.3 mg TD DAILY 10/08/16 [History] Loperamide HCl [Anti-Diarrheal] 2 mg PO .PRN 01/08/17 [History] Primidone 50 MG [Mysoline 50Mg] 50 mg PO TID 02/05/17 [History] Hx Tetanus, Diphtheria Vaccination/Date Given: Yes Hx Influenza Vaccination/Date Given: No Hx Pneumococcal Vaccination/Date Given: No Immunizations Up to Date: Yes - Review of Systems Constitutional: No Fever, No Chills Eyes: No Symptoms Ears, Nose, & Throat: No Symptoms Respiratory: No Cough, No Dyspnea Cardiac: No Chest Pain, No Edema, No Syncope Abdominal/Gastrointestinal: Abdominal Pain, Other (rectal bleeding) Genitourinary Symptoms: No Dysuria Musculoskeletal: No Back Pain, No Neck Pain Skin: No Rash Neurological: No Dizziness, No Focal Weakness, No Sensory Changes Psychological: No Symptoms Endocrine: No Symptoms Hematologic/Lymphatic: No Symptoms Immunological/Allergic: No Symptoms All Other Systems: Reviewed and Negative - Past Medical History Pertinent Past Medical History: Yes Neurological History: Peripheral Neuropathy, Other ENT History: No Pertinent History Cardiac History: Congestive Heart Failure, Coronary Artery Disease, High Cholesterol, Hypertension, Myocardial Infarction ([place]) Respiratory History: Sleep Apnea Endocrine Medical History: Diabetes Type II Musculoskeletal History: Fibromyalgia GI Medical History: Colitis, Crohns Disease History: Other Psycho-Social History: Anxiety, Depression Female Reproductive Disorders: No Pertinent History Other Medical History: superficial blood clot lower left arm last admission dx with shingles 06/2016, dizziness, chronic pain - Past Surgical History Past Surgical History: Yes Neuro Surgical History: No Pertinent History Cardiac: Cardiac Catheterization Respiratory: No Pertinent History Gastrointestinal: Other Genitourinary: Other Musculoskeletal: No Pertinent History Female Surgical History: Section, Tubal Ligation Other Surgical History: KIDNEY STONE REMOVAL, D&C - Social History Smoking Status: Never smoker Exposure to second hand smoke: No Alcohol Use: None Drug Use: none Patient Lives Alone: No Significant Family History: diabetes, hypertension - Female History Hx Last Menstrual Period: post Hx Now: No - Nursing Vital Signs Nursing Vital Signs: Initial Vital Signs Temperature 97.8 F 05/17/17 15:45 Pulse Rate 100 H 05/17/17 15:45 Respiratory Rate 16 05/17/17 15:45 Blood Pressure 111/59 05/17/17 15:45 O2 Sat by Pulse Oximetry 96 05/17/17 15:45 Pain Scale Pain Intensity 7 - Physical Exam General Appearance: no apparent distress, alert Eye Exam: PERRL/EOMI, eyes nml inspection Ears, Nose, Throat Exam: normal ENT inspection, TMs normal, pharynx normal, moist mucous membranes Neck Exam: normal inspection, non-tender, supple, full range of motion Respiratory Exam: normal breath sounds, lungs clear, No respiratory distress Cardiovascular Exam: regular rate/rhythm, normal heart sounds, normal peripheral pulses Gastrointestinal/Abdomen Exam: tenderness Pelvic Exam: not done Back Exam: normal inspection, normal range of motion, No CVA tenderness, No vertebral tenderness Extremity Exam: normal inspection, normal range of motion, pelvis stable Neurologic Exam: alert, oriented x 3, cooperative, normal mood/affect, nml cerebellar function, nml station & gait, sensation nml, No motor deficits Skin Exam: normal color, warm, dry, No rash Lymphatic Exam: No adenopathy SpO2 Interpretation: normal SpO2: 96 Oxygen Delivery: Room Air - Radiology Exams Abdomen X-ray Interpretation: Interpreted by me, Negative (neg abd and chest) Ordered Tests: Active Orders 24 hr Category Date Time Status IV Insertion STAT Care 05/17/17 16:21 Active OBSTR/ACUTE ABDOMEN SERIES Stat Exams 05/17/17 16:22 Taken BMP Stat Lab 05/17/17 15:55 Completed CBC W DIFF Stat Lab 05/17/17 15:55 Completed Lactic Acid Stat Lab 05/17/17 16:21 Completed Occult Blood,Stool Other Stat Lab 05/17/17 17:48 Completed PROTIME WITH INR Stat Lab 05/17/17 15:55 Completed Medication Summary Discontinued Medications Generic Name Dose Route Start Last Admin Trade Name Freq PRN Reason Stop Dose Admin Pantoprazole Sodium 40 mg 05/17/17 16:21 05/17/17 16:37 Protonix 40 Mg Iv IV 05/17/17 16:22 40 mg STAT ONE Administration Pantoprazole Sodium Confirm 05/17/17 16:32 Protonix 40 Mg Iv Administered 05/17/17 16:33 Dose 40 mg IV .STIPPLEX-MED ONE Lab/Rad Data: Laboratory Result Diagrams 05/17/17 15:55 05/17/17 15:55 Laboratory Results 05/17/17 05/17/17 05/17/17 Range/Units 17:48 16:21 15:55 WBC (4.0-10.5) K/mm3 RBC (4.1-5.4) M/mm3 Hgb (12.0-16.0) gm/dl Hct (35-47) % MCV (78-100) fl MCH (26-32) pg MCHC (32-36) g/dl RDW (11.5-14.0) % Plt Count (150-450) K/mm3 MPV (6-9.5) fl Gran % (36.0-66.0) % Lymphocytes % (24.0-44.0) % Monocytes % (0.0-12.0) % Eosinophils % (0.00-5.0) % Basophils % (0.0-0.4) % Basophils # (0-0.4) INR 1.11 (0.8-3.0) Sodium (136-145) mEq/L Potassium (3.5-5.1) mEq/L Chloride (98-107) mEq/L Carbon Dioxide (21-32) mEq/L Anion Gap (5-15) MEQ/L BUN (9-20) mg/dL Creatinine (0.55-1.30) mg/dl Estimated GFR ML/MIN Glucose (70-110) MG/DL Lactic Acid 1.3 (0.4-2.0) Calcium (8.5-10.1) mg/dL Stool Occult Blood POSITIVE (Negative) 05/17/17 05/17/17 Range/Units 15:55 15:55 WBC 10.3 (4.0-10.5) K/mm3 RBC 3.96 L (4.1-5.4) M/mm3 Hgb 10.0 L (12.0-16.0) gm/dl Hct 34.0 L (35-47) % MCV 85.9 (78-100) fl MCH 25.2 L (26-32) pg MCHC 29.4 L (32-36) g/dl RDW 17.0 H (11.5-14.0) % Plt Count 207 (150-450) K/mm3 MPV 12.5 H (6-9.5) fl Gran % 81.3 H (36.0-66.0) % Lymphocytes % 9.2 L (24.0-44.0) % Monocytes % 5.7 (0.0-12.0) % Eosinophils % 3.6 (0.00-5.0) % Basophils % 0.2 (0.0-0.4) % Basophils # 0.02 (0-0.4) INR (0.8-3.0) Sodium 144 (136-145) mEq/L Potassium 3.9 (3.5-5.1) mEq/L Chloride 106 (98-107) mEq/L Carbon Dioxide 30.2 (21-32) mEq/L Anion Gap 11.6 (5-15) MEQ/L BUN 15 (9-20) mg/dL Creatinine 0.80 (0.55-1.30) mg/dl Estimated GFR > 60 ML/MIN Glucose 80 (70-110) MG/DL Lactic Acid (0.4-2.0) Calcium 8.9 (8.5-10.1) mg/dL Stool Occult Blood (Negative) - Progress Progress: improved Counseled pt/family regarding: lab results, diagnosis, need for follow-up, rad results - Departure Time of Disposition: 18:06 Departure Disposition: Home Clinical Impression: GI bleed Condition: Stable Critical Care Time: No Additional Instructions: You had a mild GI bleed that may have been due to an exacerbation of Crohn's disease or ulcerative colitis. You were given Protonix 40 mg by IV in the ER. Take a Medrol Dosepak as directed. Follow-up with your primary care provider in 2-3 days. Prescriptions: Methylprednisolone Packet [Medrol Dosepack] 0 mg PO UD #1 packet
[2017-05-17] MEDS ORDERED: PROTONIX 40 MG IV IV ONE ×2 (16:21→16:32)
[2017-05-17 16:27] LABS: BASOPHIL % 0.2 % (0.0-0.4); Eosinophil % 3.6 % (0.00-5.0); Granulocytes % 81.3 % (36.0-66.0); Lymphocytes % 9.2 % (24.0-44.0); Mean Cell Volume 85.9 fl (78-100); Mean Platelet Volume 12.5 fl (6-9.5); Monocytes % 5.7 % (0.0-12.0); Platelet Count 207 K/mm3 (150-450); Red Blood Count 3.96 M/mm3 (4.1-5.4); White Blood Count 10.3 K/mm3 (4.0-10.5)
[2017-05-17 16:28] LABS: Mean Corpuscular Hemoglobin 25.2 pg (26-32)
[2017-05-17 16:43] LABS: INR 1.11 (0.8-3.0); PROTIME 12.6 SECONDS (9.95-12.35)
[2017-05-17 16:47] LABS: ANION GAP 11.6 MEQ/L (5-15); BLOOD UREA NITROGEN 15 mg/dL (9-20); CHLORIDE 106 mEq/L (98-107); Carbon Dioxide 30.2 mEq/L (21-32); Glucose 80 MG/DL (70-110); Potassium 3.9 mEq/L (3.5-5.1); SODIUM 144 mEq/L (136-145)
[2017-05-17 16:57] VITALS: BP 118/63; PULSE 80
--- NOTE | 2017-05-18 08:49 | XRAY ---
Indication: Rectal bleeding for 2 weeks. Comparison: Chest exam March 08, 2017. 2 views of the abdomen nonacute and nonobstructed. Solid organs unremarkable. Osseous structures intact with mild spinal degenerative spondylosis. Single PA chest again demonstrates normal heart, lungs, and bony thorax. Impression: Negative abdomen. Stable normal 1 view chest.
== END 2017-05-17 18:26 | disposition home or self-care (01) ==
LOC: ED 15:44
DX: K92.2 Gastrointestinal hemorrhage, unspecified (principal); K50.90 Crohn's disease, unspecified, without complications; K51.90 Ulcerative colitis, unspecified, without complications; E66.01 Morbid (severe) obesity due to excess calories; J44.9 Chronic obstructive pulmonary disease, unspecified; I25.10 Atherosclerotic heart disease of native coronary artery without angina pectoris; E11.9 Type 2 diabetes mellitus without complications; I10 Essential (primary) hypertension; F41.9 Anxiety disorder, unspecified; Z79.899 Other long term (current) drug therapy; Z79.84 Long term (current) use of oral hypoglycemic drugs; Z79.891 Long term (current) use of opiate analgesic
CPT/HCPCS: 36000; 36415; 74022; 80048; 82272; 83605; 85025; 85610; 96374; 99284

== ENCOUNTER 2017-12-01 17:46 | Emergency (ER) | payer OTHER ==
[2017-12-01] MEDS ORDERED: DUONEB 0.5-3 MG/3 ml Neb IH ONE ×2 (18:11→18:19)
--- NOTE | 2017-12-01 18:11 | ERPHSYRPT ---
- History of Present Illness Source: patient Exam Limitations: no limitations Patient Subjective Stated Complaint: pt states she has a cough and that at times she coughs so hard she shakes like she is having a seizure Triage Nursing Assessment: pt pale warm and [id number] noted during triage- lungs clear-pt able to speak in complete senteces with ease-pt reports all over body aches Timing/Duration: yesterday Cough Quality/Degree: moderate Possible Cause: no prior episodes Modifying Factors: Improves With: nothing Associated Symptoms: chills, cough, nasal congestion, sore throat Hx Tetanus, Diphtheria Vaccination/Date Given: Yes Hx Influenza Vaccination/Date Given: No Hx Pneumococcal Vaccination/Date Given: No Immunizations Up to Date: Yes <LITO GONZALES - Last Filed: 12/01/17 18:07> <RONALD CINTRON - Last Filed: 12/01/17 22:25> - History of Present Illness Time Seen by Provider: 12/01/17 18:00 Physician History: 57 y/o female comes to the ER with complaints of cough, congestion, and shortness of breath for the past 2 weeks. However, over the last 2 days, patient has been having subjective chills, muscle aches and worsening cough. Pt has been using mucinex with no relief. Pt states that the cough has been so bad that she feels as if she is going to pass out. No sick contacts. Pt denies any chest pain, abdominal pain, nausea, vomiting or diarrhea. (LITO GONZALES) Allergies/Adverse Reactions: cyclobenzaprine HCl [From Flexeril] Allergy (Mild, Verified 12/01/17 17:57) Rash Sulfa (Sulfonamide Antibiotics) [Sulfa(Sulfonamide Antibiotics)] Allergy (Mild, Verified 12/01/17 17:57) Rash adhesive Allergy (Verified 12/01/17 17:57) nalbuphine HCl [From Nubain] Adverse Reaction (Intermediate, Verified 12/01/17 17:57) Stomach Cramps patient states she had stomach "burning" and that her legs felt like "rubber bands" meperidine HCl [From Demerol] Adverse Reaction (Mild, Verified 12/01/17 17:57) Vomiting Home Medications: Carvedilol 6.25 mg [Coreg 6.25 MG] 12.5 mg PO BID 03/17/16 [History] Doxycycline Hyclate 100 mg [Vibramycin 100 MG] 100 mg PO DAILY 03/17/16 [ History] Duloxetine HCl 60 mg PO DAILY 03/17/16 [History] Ergocalciferol (Vitamin D2) [Vitamin D2] 50,000 unit PO Q7D 03/17/16 [History] Glyburide 5 mg [Micronase 5 MG] 5 mg PO BID 03/17/16 [History] Magnesium Oxide 400 mg [Mag-Ox 400] 800 mg PO DAILY 03/17/16 [History] Mesalamine [Pentasa] 500 mg PO BID 03/17/16 [History] Metformin HCl 1000 mg [Glucophage 1000 MG] 1,000 mg PO BID 03/17/16 [History] Methocarbamol 500 mg [Robaxin 500 MG] 1,000 mg PO QIDPRN PRN 03/17/16 [ History] Omeprazole 20 MG [Prilosec 20 mg] 20 mg PO BID 03/17/16 [History] Sitagliptin Phosphate 50 MG [Januvia 50 MG] 100 mg PO DAILY 03/17/16 [ History] Nitroglycerin 0.4 mg Tablet [Nitrostat 0.4 MG Tablet] 0.4 mg SL Q5MIN PRN MR X 3 PRN 06/15/16 [History] Aripiprazole 10 mg [Abilify 10 MG] 2 mg HS 08/08/16 [History] Aspirin 81 gm Chew [Baby Aspirin 81 mg Chew] 81 mg PO DAILY 10/08/16 [ History] Nitroglycerin [Nitro-Dur] 0.3 mg TD DAILY 10/08/16 [History] Loperamide HCl [Anti-Diarrheal] 2 mg PO .PRN 01/08/17 [History] Primidone 50 MG [Mysoline 50Mg] 50 mg PO TID 02/05/17 [History] Hydrochlorothiazide 12.5 mg DAILY 07/06/17 [History] Potassium Chloride 10 Meq Tab* [Klor Con 10 MEQ] 10 meq DAILY 09/26/17 [ History] - Review of Systems Constitutional: Chills, No Fever Eyes: No Symptoms Ears, Nose, & Throat: No Symptoms Respiratory: Cough, Dyspnea, Dyspnea on Exertion ([place]) Cardiac: No Chest Pain, No Edema, No Syncope Abdominal/Gastrointestinal: No Abdominal Pain, No Nausea, No Vomiting, No Diarrhea Genitourinary Symptoms: No Dysuria Musculoskeletal: Myalgias, No Back Pain, No Neck Pain Skin: No Rash Neurological: No Dizziness, No Focal Weakness, No Sensory Changes Psychological: No Symptoms Endocrine: No Symptoms All Other Systems: Reviewed and Negative <LITO GONZALES - Last Filed: 12/01/17 18:07> - Past Medical History Pertinent Past Medical History: Yes Neurological History: Peripheral Neuropathy, Other ENT History: No Pertinent History, Cataracts Cardiac History: Congestive Heart Failure, Coronary Artery Disease, High Cholesterol, Hypertension, Myocardial Infarction ([place]) Respiratory History: Sleep Apnea Endocrine Medical History: Diabetes Type II Musculoskeletal History: Fibromyalgia GI Medical History: Colitis, Crohns Disease History: Other Psycho-Social History: Anxiety, Depression Female Reproductive Disorders: No Pertinent History Other Medical History: superficial blood clot lower left arm last admission dx with shingles 06/2016, dizziness, chronic pain - Past Surgical History Past Surgical History: Yes Neuro Surgical History: No Pertinent History Cardiac: Cardiac Catheterization Respiratory: No Pertinent History Gastrointestinal: Other Genitourinary: Other Musculoskeletal: No Pertinent History Female Surgical History: Section, Tubal Ligation Other Surgical History: KIDNEY STONE REMOVAL, D&C - Social History Smoking Status: Never smoker Exposure to second hand smoke: No Alcohol Use: None Drug Use: none Patient Lives Alone: No Significant Family History: diabetes, hypertension - Female History Hx Now: No <LITO GONZALES - Last Filed: 12/01/17 18:07> - Physical Exam General Appearance: mild distress, alert Eye Exam: PERRL/EOMI, eyes nml inspection Ears, Nose, Throat Exam: normal ENT inspection, TMs normal, pharynx normal, moist mucous membranes Neck Exam: normal inspection, non-tender, supple, full range of motion Respiratory Exam: normal breath sounds, wheezing, No lungs clear, No respiratory distress Cardiovascular Exam: regular rate/rhythm, normal heart sounds Gastrointestinal/Abdomen Exam: soft, No tenderness Back Exam: normal inspection, No CVA tenderness, No vertebral tenderness Extremity Exam: normal inspection, normal range of motion Neurologic Exam: alert, oriented x 3, cooperative, normal mood/affect, sensation nml, No motor deficits Skin Exam: normal color, warm, dry, No rash Lymphatic Exam: No adenopathy SpO2: 96 Oxygen Delivery: Room Air <GONZALES,NOAH - Last Filed: 12/01/17 18:07> - Nursing Vital Signs Nursing Vital Signs: Initial Vital Signs Temperature 98.6 F 12/01/17 17:52 Pulse Rate 88 12/01/17 17:52 Respiratory Rate 26 H 12/01/17 17:52 Blood Pressure 187/101 12/01/17 17:52 O2 Sat by Pulse Oximetry 96 12/01/17 17:52 Pain Scale Pain Intensity 3 - Course Nursing assessment & vital signs reviewed: Yes EKG Interpreted by Me: RATE, Sinus Rhythm, Left [place] Deviation, NORMAL INTERVALS , Non-specific ST Changes - Radiology Exams Chest X-ray Interpretation: Interpreted by me, Negative <RONALD CINTRON - Last Filed: 12/01/17 22:25> Ordered Tests: Active Orders 24 hr Category Date Time Status EKG-ER Only STAT Care 12/01/17 18:11 Active EKG-ER Only STAT Care 12/01/17 20:21 Active IV Insertion STAT Care 12/01/17 18:11 Active CHEST 2 VIEWS (PA AND LAT) Stat Exams 12/01/17 18:12 Taken BLOOD CULTURE Stat Lab 12/01/17 18:34 Received CBC W DIFF Stat Lab 12/01/17 18:27 Completed CMP Stat Lab 12/01/17 18:27 Completed NT PRO BNP Stat Lab 12/01/17 18:27 Completed TROPONIN Q3H Lab 12/01/17 18:27 Completed TROPONIN Q3H Lab 12/01/17 20:30 Completed TROPONIN Q3H Lab 12/02/17 00:15 Ordered TROPONIN Q3H Lab 12/02/17 03:15 Ordered TROPONIN Q3H Lab 12/02/17 06:15 Ordered Respiratory Nebulizer STAT RT 12/01/17 18:12 Active Medication Summary Discontinued Medications Generic Name Dose Route Start Last Admin Trade Name Freq PRN Reason Stop Dose Admin Albuterol/Ipratropium 3 ml 12/01/17 18:11 12/01/17 18:33 Duoneb 0.5-3 Mg/3 Ml Neb IH 12/01/17 18:12 3 ml STAT ONE Administration Albuterol/Ipratropium Confirm 12/01/17 18:19 Duoneb 0.5-3 Mg/3 Ml Neb Administered 12/01/17 18:20 Dose 3 ml IH .STK-MED ONE Lab/Rad Data: Laboratory Result Diagrams 12/01/17 18:27 12/01/17 18:27 Laboratory Results 12/01/17 12/01/17 12/01/17 Range/Units 20:30 18:34 18:27 WBC (4.0-10.5) K/mm3 RBC (4.1-5.4) M/mm3 Hgb (12.0-16.0) gm/dl Hct (35-47) % MCV (78-100) fl MCH (26-32) pg MCHC (32-36) g/dl RDW (11.5-14.0) % Plt Count (150-450) K/mm3 MPV (6-9.5) fl Gran % (36.0-66.0) % Lymphocytes % (24.0-44.0) % Monocytes % (0.0-12.0) % Eosinophils % (0.00-5.0) % Basophils % (0.0-0.4) % Basophils # (0-0.4) Sodium (136-145) mEq/L Potassium (3.5-5.1) mEq/L Chloride (98-107) mEq/L Carbon Dioxide (21-32) mEq/L Anion Gap (5-15) MEQ/L BUN (9-20) mg/dL Creatinine (0.55-1.30) mg/dl Estimated GFR ML/MIN Glucose (70-110) MG/DL Calcium (8.5-10.1) mg/dL Total Bilirubin (0.2-1.0) mg/dL AST (15-37) U/L ALT (12-78) U/L Alkaline Phosphatase (46-116) U/L Troponin I < 0.017 < 0.017 (0.000-0.056) ng/ml NT-Pro-B Natriuret Pep (0-125) pg/ml Serum Total Protein (6.4-8.2) gm/dL Albumin (3.4-5.0) g/dL Influenza Type A Ag NEGATIVE (NEGATIVE) Influenza Type B Ag NEGATIVE (NEGATIVE) RSV (PCR) NEGATIVE (Negative) 12/01/17 12/01/17 Range/Units 18:27 18:27 WBC 9.0 (4.0-10.5) K/mm3 RBC 3.92 L (4.1-5.4) M/mm3 Hgb 9.9 L (12.0-16.0) gm/dl Hct 32.5 L (35-47) % MCV 82.9 (78-100) fl MCH 25.2 L (26-32) pg MCHC 30.5 L (32-36) g/dl RDW 17.3 H (11.5-14.0) % Plt Count 219 (150-450) K/mm3 MPV 12.2 H (6-9.5) fl Gran % 77.1 H (36.0-66.0) % Lymphocytes % 12.5 L (24.0-44.0) % Monocytes % 5.8 (0.0-12.0) % Eosinophils % 4.3 (0.00-5.0) % Basophils % 0.3 (0.0-0.4) % Basophils # 0.03 (0-0.4) Sodium 138 (136-145) mEq/L Potassium 4.7 (3.5-5.1) mEq/L Chloride 102 (98-107) mEq/L Carbon Dioxide 25.9 (21-32) mEq/L Anion Gap 14.8 (5-15) MEQ/L BUN 16 (9-20) mg/dL Creatinine 0.92 (0.55-1.30) mg/dl Estimated GFR > 60 ML/MIN Glucose 106 (70-110) MG/DL Calcium 9.0 (8.5-10.1) mg/dL Total Bilirubin 0.20 (0.2-1.0) mg/dL AST 21 (15-37) U/L ALT 14 (12-78) U/L Alkaline Phosphatase 105 (46-116) U/L Troponin I (0.000-0.056) ng/ml NT-Pro-B Natriuret Pep 142 H (0-125) pg/ml Serum Total Protein 6.7 (6.4-8.2) gm/dL Albumin 3.0 L (3.4-5.0) g/dL Influenza Type A Ag (NEGATIVE) Influenza Type B Ag (NEGATIVE) RSV (PCR) (Negative) <LITO GONZALES - Last Filed: 12/01/17 18:07> - Progress Progress: improved Air Movement: fair <RONALD CINTRON - Last Filed: 12/01/17 22:25> - Progress Progress Note: 12/01/17 22:21 Pt remains afebrile, stable, no severe pain or distress, mild cough, comfortable. I explained her all test results, will discharge her with instructions to continue oral fluids, and follow up with her doctor in 2-3 days , return if severe shortness of breath, chest pain, vomiting, or fever> 102 F. She will be started on PO Zithromax. (RONALD CINTRON) <LITO GONZALES - Last Filed: 12/01/17 18:07> - Departure Time of Disposition: 22:23 Departure Disposition: Home Critical Care Time: No <RONALD CINTRON - Last Filed: 12/01/17 22:25> - Departure Clinical Impression: Bronchitis Condition: Stable Referrals: CALVIN PALOMINO [Primary Care Provider] - Instructions: Acute Bronchitis, Acute Bronchitis, Adult (DC) Additional Instructions: Rest x 2-3 days, drink plenty of fluids, return if severe shortness of breath, vomiting, fever> 102 F! Continue Albuterol inhaler as directed! Prescriptions: Azithromycin 250 mg [Zithromax 250 MG TABLET] 250 mg PO ZPACK #6 tablet
[2017-12-01 18:53] LABS: BASOPHIL % 0.3 % (0.0-0.4); Basophil (Absolute #) 0.03 (0-0.4); Eosinophil % 4.3 % (0.00-5.0); Eosinophil (Absolute #) 0.39 (0-0.5); Granulocyte Absolute (ANC) 6.96 (1.4-6.9); Granulocytes % 77.1 % (36.0-66.0); Hematocrit 32.5 % (35-47); Hemoglobin 9.9 gm/dl (12.0-16.0); Lymphocyte (Absolute #) 1.13 (1.0-4.6); Lymphocytes % 12.5 % (24.0-44.0); Mean Cell Volume 82.9 fl (78-100); Mean Corpuscular Hgb Concent. 30.5 g/dl (32-36); Mean Platelet Volume 12.2 fl (6-9.5); Monocyte (Absolute #) 0.52 (0.0-1.3); Monocytes % 5.8 % (0.0-12.0); Platelet Count 219 K/mm3 (150-450); Red Blood Count 3.92 M/mm3 (4.1-5.4); Red Cell Distribution Width 17.3 % (11.5-14.0)
[2017-12-01 19:05] LABS: Mean Corpuscular Hemoglobin 25.2 pg (26-32)
[2017-12-01 19:15] LABS: ALKALINE PHOSPHATASE 105 U/L (46-116); ANION GAP 14.8 MEQ/L (5-15); BLOOD UREA NITROGEN 16 mg/dL (9-20); CHLORIDE 102 mEq/L (98-107); Carbon Dioxide 25.9 mEq/L (21-32); Creatinine 1 0.92 mg/dl (0.55-1.30); EST GLOMERULAR FILTRATION RATE > 60 ML/MIN; Glucose 106 MG/DL (70-110); NT PRO BNP 142 pg/ml (0-125); Potassium 4.7 mEq/L (3.5-5.1); SGOT/AST 21 U/L (15-37); SGPT/ALT 14 U/L (12-78); SODIUM 138 mEq/L (136-145); Total Protein 6.7 gm/dL (6.4-8.2)
[2017-12-01 20:01] LABS: INFLUENZA A NEGATIVE (NEGATIVE); INFLUENZA B NEGATIVE (NEGATIVE); RESPIRATORY SYNCTIAL VIRUS NEGATIVE (Negative)
[2017-12-01 22:39] VITALS: BP 129/68; PULSE 78; O2SAT 97
--- NOTE | 2017-12-02 08:42 | XRAY ---
Indication: Short of breath and cough. Seizure. Comparison: August 09, 2017. PA/lateral chest unchanged again with minimal left base atelectasis/scarring and right lung calcified granulomas. Remaining heart, lungs, and bony thorax unremarkable. No new/acute findings.
== END 2017-12-01 22:39 | disposition home or self-care (01) ==
LOC: ED 17:46
DX: J40 Bronchitis, not specified as acute or chronic (principal); Z79.899 Other long term (current) drug therapy
CPT/HCPCS: 36000; 36415; 71046; 80053; 83880; 84484; 85025; 87040; 87631; 93005; 94640; 99284; A9270-GY

== ENCOUNTER 2018-01-25 19:26 | Emergency (ER) | payer MEDICARE ==
[2018-01-25] MEDS ORDERED: Sodium Chloride 0.9% 1000 ML 1,000 ML IV STA (20:48)
[2018-01-25] MEDS ORDERED: Sodium Chloride 0.9% 1000 ML 1,000 ML ONE (20:52)
[2018-01-25 20:53] LABS: BASOPHIL % 0.2 % (0.0-0.4); Basophil (Absolute #) 0.02 (0-0.4); Eosinophil % 3.2 % (0.00-5.0); Eosinophil (Absolute #) 0.32 (0-0.5); Granulocyte Absolute (ANC) 7.71 (1.4-6.9); Granulocytes % 76.7 % (36.0-66.0); Hemoglobin 10.8 gm/dl (12.0-16.0); Lymphocyte (Absolute #) 1.32 (1.0-4.6); Lymphocytes % 13.1 % (24.0-44.0); Mean Cell Volume 84.3 fl (78-100); Mean Corpuscular Hgb Concent. 30.9 g/dl (32-36); Mean Platelet Volume 12.2 fl (6-9.5); Monocyte (Absolute #) 0.68 (0.0-1.3); Monocytes % 6.8 % (0.0-12.0); Platelet Count 249 K/mm3 (150-450); Red Blood Count 4.15 M/mm3 (4.1-5.4); Red Cell Distribution Width 17.3 % (11.5-14.0); White Blood Count 10.1 K/mm3 (4.0-10.5)
[2018-01-25 21:15] LABS: ALBUMIN 3.9 g/dL (3.5-5.0); ANION GAP 16.9 MEQ/L (5-15); BILIRUBIN,TOTAL 0.2 mg/dL (0.2-1.3); Calcium 9.6 mg/dL (8.4-10.2); Creatinine 1 1.46 mg/dL (0.52-1.04); Potassium 4.2 mmol/L (3.5-5.1); Total Protein 7.4 g/dL (6.3-8.2)
[2018-01-25 21:24] LABS: NT PRO BNP 67.6 pg/mL (0-900)
[2018-01-25 21:31] LABS: INR 1.11 (0.8-3.0)
[2018-01-25 21:53] VITALS: BP 111/59; PULSE 84
--- NOTE | 2018-01-25 21:57 | ERPHSYRPT ---
- History of Present Illness Time Seen by Provider: 01/25/18 19:50 Source: patient Exam Limitations: clinical condition Patient Subjective Stated Complaint: Pt arrives to ER with c/o dizziness that led to syncopal episode stating while walking, leaned back against the wall and slid down stating had LOC for a few seconds stating this has happened in the past. States soon after episode, checked BP and found was 90/73 manual. States while slidding down wall she "sqatted" and now has pain to left knee d/t "no cartiledge" Triage Nursing Assessment: Pt does not appear to be in any distress at this time with respirations easy even regular and unlabored. A&Ox4 and able to ambulated from EMS cot to ER bed without difficulty. States "my head feels funky " but denies dizziness. Physician History: PATIENT WITH A HISTORY OF CROHNS DISEASE, TYPE 2 DIABETES, HAS CHRONIC DIARRHEA , COMPLAINS OF NEAR SYNCOPE EPISODES X 2 DAYS AND LOW BLOOD PRESSURE. DENIES CHEST PAIN, DYSPNEA, HEADACHE, BLURRED VISION, NUMBNESS, TINGLING OR WEAKNESS IN EXTREMITIES. Timing/Duration: day(s) Severity: moderate Modifying Factors: Improves With: movement, other (STANDING) Associated Symptoms: other (DIZZINESS) Allergies/Adverse Reactions: cyclobenzaprine HCl [From Flexeril] Allergy (Mild, Verified 01/25/18 19:42) Rash Sulfa (Sulfonamide Antibiotics) [Sulfa(Sulfonamide Antibiotics)] Allergy (Mild, Verified 01/25/18 19:42) Rash adhesive Allergy (Verified 01/25/18 19:42) nalbuphine HCl [From Nubain] Adverse Reaction (Intermediate, Verified 01/25/18 19:42) Stomach Cramps patient states she had stomach "burning" and that her legs felt like "rubber bands" meperidine HCl [From Demerol] Adverse Reaction (Mild, Verified 01/25/18 19:42) Vomiting Home Medications: Carvedilol 6.25 mg [Coreg 6.25 MG] 12.5 mg PO BID 03/17/16 [History] Duloxetine HCl 60 mg PO DAILY 03/17/16 [History] Ergocalciferol (Vitamin D2) [Vitamin D2] 50,000 unit PO Q7D 03/17/16 [History] Glyburide 5 mg [Micronase 5 MG] 5 mg PO BID 03/17/16 [History] Magnesium Oxide 400 mg [Mag-Ox 400] 800 mg PO DAILY 03/17/16 [History] Mesalamine [Pentasa] 500 mg PO BID 03/17/16 [History] Metformin HCl 1000 mg [Glucophage 1000 MG] 1,000 mg PO BID 03/17/16 [History] Methocarbamol 500 mg [Robaxin 500 MG] 1,000 mg PO QIDPRN PRN 03/17/16 [ History] Omeprazole 20 MG [Prilosec 20 mg] 20 mg PO BID 03/17/16 [History] Sitagliptin Phosphate 50 MG [Januvia 50 MG] 100 mg PO DAILY 03/17/16 [ History] Nitroglycerin 0.4 mg Tablet [Nitrostat 0.4 MG Tablet] 0.4 mg SL Q5MIN PRN MR X 3 PRN 06/15/16 [History] Aripiprazole 10 mg [Abilify 10 MG] 2 mg HS 08/08/16 [History] Aspirin 81 gm Chew [Baby Aspirin 81 mg Chew] 81 mg PO DAILY 10/08/16 [ History] Nitroglycerin [Nitro-Dur] 0.3 mg TD DAILY 10/08/16 [History] Loperamide HCl [Anti-Diarrheal] 2 mg PO .PRN 01/08/17 [History] Primidone 50 MG [Mysoline 50Mg] 50 mg PO TID 02/05/17 [History] Hydrochlorothiazide 12.5 mg DAILY 07/06/17 [History] Potassium Chloride 10 Meq Tab* [Klor Con 10 MEQ] 10 meq DAILY 07/06/17 [ History] Atorvastatin Calcium 10 mg PO DAILY 01/25/18 [History] Famotidine 40 mg PO DAILY 01/25/18 [History] Lisinopril 5 mg [Zestril 5 MG] 2.5 mg PO DAILY 01/25/18 [History] Torsemide 10 mg PO 01/25/18 [History] Hx Tetanus, Diphtheria Vaccination/Date Given: Yes Hx Influenza Vaccination/Date Given: No Hx Pneumococcal Vaccination/Date Given: No Immunizations Up to Date: Yes - Review of Systems Constitutional: No Fever, No Chills Eyes: No Symptoms Ears, Nose, & Throat: No Symptoms Respiratory: No Symptoms, No Cough, No Dyspnea Cardiac: No Symptoms, No Chest Pain, No Edema, No Syncope Abdominal/Gastrointestinal: No Symptoms, No Abdominal Pain, No Nausea, No Vomiting, No Diarrhea (CHRONIC) Genitourinary Symptoms: No Symptoms, No Dysuria Musculoskeletal: No Back Pain, No Neck Pain Skin: No Rash Neurological: Dizziness, Other (LIGHTHEADEDNESS), No Focal Weakness, No Sensory Changes Psychological: No Symptoms Endocrine: No Symptoms All Other Systems: Reviewed and Negative - Past Medical History Pertinent Past Medical History: Yes Neurological History: Peripheral Neuropathy, Other ENT History: No Pertinent History, Cataracts Cardiac History: Congestive Heart Failure, Coronary Artery Disease, High Cholesterol, Hypertension, Myocardial Infarction ([place]) Respiratory History: Sleep Apnea Endocrine Medical History: Diabetes Type II Musculoskeletal History: Fibromyalgia GI Medical History: Colitis, Crohns Disease History: Other Psycho-Social History: Anxiety, Depression Female Reproductive Disorders: No Pertinent History Other Medical History: superficial blood clot lower left arm last admission dx with shingles 06/2016, dizziness, chronic pain - Past Surgical History Past Surgical History: Yes Neuro Surgical History: No Pertinent History Cardiac: Cardiac Catheterization Respiratory: No Pertinent History Gastrointestinal: Other Genitourinary: Other Musculoskeletal: No Pertinent History Female Surgical History: Section, Tubal Ligation Other Surgical History: KIDNEY STONE REMOVAL, D&C - Social History Smoking Status: Never smoker Exposure to second hand smoke: No Alcohol Use: None Drug Use: none Patient Lives Alone: No Significant Family History: diabetes, hypertension - Female History Hx Now: No - Nursing Vital Signs Nursing Vital Signs: Initial Vital Signs Temperature 98.9 F 01/25/18 19:32 Pulse Rate 86 01/25/18 19:32 Respiratory Rate 20 01/25/18 19:32 Blood Pressure 109/59 01/25/18 19:32 O2 Sat by Pulse Oximetry 95 01/25/18 19:32 Pain Scale Pain Intensity 5 - Physical Exam General Appearance: no apparent distress, alert Eye Exam: PERRL/EOMI, eyes nml inspection Ears, Nose, Throat Exam: normal ENT inspection, TMs normal, pharynx normal, moist mucous membranes Neck Exam: normal inspection, non-tender, supple, full range of motion Respiratory Exam: normal breath sounds, lungs clear, No respiratory distress Cardiovascular Exam: regular rate/rhythm, normal heart sounds, normal peripheral pulses Gastrointestinal/Abdomen Exam: soft, normal bowel sounds (NONTENDERNESS), No tenderness, No mass Back Exam: normal inspection, normal range of motion, No CVA tenderness, No vertebral tenderness Extremity Exam: normal inspection, normal range of motion, pelvis stable Neurologic Exam: alert, oriented x 3, cooperative, normal mood/affect, nml cerebellar function, nml station & gait, sensation nml, No motor deficits Skin Exam: normal color, warm, dry, No rash Lymphatic Exam: No adenopathy SpO2 Interpretation: normal SpO2: 95 Oxygen Delivery: Room Air - Course EKG Interpreted by Me: RATE, Sinus Rhythm, NORMAL AXIS, Non-specific ST Changes - Radiology Exams Chest X-ray Interpretation: Interpreted by me (POOR INSPIRATION, ELEVATION RIGHT HEMIDIAPHRAM, MILD VENOUS HILAR CONGESTION) Ordered Tests: Active Orders 24 hr Category Date Time Status Salesperson Shoes STAT Care 01/25/18 20:48 Active EKG-ER Only STAT Care 01/25/18 20:48 Active Orthostatic Vital Signs STAT Care 01/25/18 19:55 Active CHEST 1 VIEW (PORTABLE) Stat Exams 01/25/18 20:48 Taken CBC W DIFF Stat Lab 01/25/18 20:30 Completed CMP Stat Lab 01/25/18 20:30 Completed NT PRO BNP Stat Lab 01/25/18 20:30 Completed PROTIME WITH INR Stat Lab 01/25/18 20:30 Completed TROPONIN Q3H Lab 01/25/18 20:30 Completed TROPONIN Q3H Lab 01/25/18 23:15 Ordered TROPONIN Q3H Lab 01/26/18 02:15 Ordered TROPONIN Q3H Lab 01/26/18 05:15 Ordered TROPONIN Q3H Lab 01/26/18 08:15 Ordered UA W/RFX UR CULTURE Stat Lab 01/25/18 22:30 Received Medication Summary Discontinued Medications Generic Name Dose Route Start Last Admin Trade Name Freq PRN Reason Stop Dose Admin Sodium Chloride 1,000 mls @ 999 mls/hr 01/25/18 20:48 01/25/18 20:53 Sodium Chloride 0.9% 1000 Ml IV 01/25/18 21:48 999 mls/hr .Q1H1M STA Administration Sodium Chloride Confirm 04/17/18 20:52 Sodium Chloride 0.9% 1000 Ml Administered 01/25/18 20:53 Dose 1,000 mls @ ud .ROUTE .K-MED ONE Lab/Rad Data: Laboratory Result Diagrams 01/25/18 20:30 01/25/18 20:30 Laboratory Results 01/25/18 01/25/18 01/25/18 Range/Units 20:30 20:30 20:30 WBC (4.0-10.5) K/mm3 RBC (4.1-5.4) M/mm3 Hgb (12.0-16.0) gm/dl Hct (35-47) % MCV (78-100) fl MCH (26-32) pg MCHC (32-36) g/dl RDW (11.5-14.0) % Plt Count (150-450) K/mm3 MPV (6-9.5) fl Gran % (36.0-66.0) % Eos # (Auto) (0-0.5) Absolute Lymphs (auto) (1.0-4.6) Absolute Monos (auto) (0.0-1.3) Lymphocytes % (24.0-44.0) % Monocytes % (0.0-12.0) % Eosinophils % (0.00-5.0) % Basophils % (0.0-0.4) % Absolute Granulocytes (1.4-6.9) Basophils # (0-0.4) PT 12.3 (9.95-12.35) SECONDS INR 1.11 (0.8-3.0) Sodium 137 (137-145) mmol/L Potassium 4.2 (3.5-5.1) mmol/L Chloride 101 (98-107) mmol/L Carbon Dioxide 23 (22-30) mmol/L Anion Gap 16.9 H (5-15) MEQ/L BUN 22 H (7-17) mg/dL Creatinine 1.46 H (0.52-1.04) mg/dL Estimated GFR 39.4 ML/MIN Glucose 94 (74-106) mg/dL Calcium 9.6 (8.4-10.2) mg/dL Total Bilirubin 0.20 (0.2-1.3) mg/dL AST 20 (14-36) U/L ALT 17 (0-35) U/L Alkaline Phosphatase 104 (38-126) U/L Troponin I < 0.012 (0.000-0.034) ng/mL NT-Pro-B Natriuret Pep 67.6 (0-900) pg/mL Serum Total Protein 7.4 (6.3-8.2) g/dL Albumin 3.9 (3.5-5.0) g/dL 01/25/18 Range/Units 20:30 WBC 10.1 (4.0-10.5) K/mm3 RBC 4.15 (4.1-5.4) M/mm3 Hgb 10.8 L (12.0-16.0) gm/dl Hct 35.0 (35-47) % MCV 84.3 (78-100) fl MCH 26.0 (26-32) pg MCHC 30.9 L (32-36) g/dl RDW 17.3 H (11.5-14.0) % Plt Count 249 (150-450) K/mm3 MPV 12.2 H (6-9.5) fl Gran % 76.7 H (36.0-66.0) % Eos # (Auto) 0.32 (0-0.5) Absolute Lymphs (auto) 1.32 (1.0-4.6) Absolute Monos (auto) 0.68 (0.0-1.3) Lymphocytes % 13.1 L (24.0-44.0) % Monocytes % 6.8 (0.0-12.0) % Eosinophils % 3.2 (0.00-5.0) % Basophils % 0.2 (0.0-0.4) % Absolute Granulocytes 7.71 H (1.4-6.9) Basophils # 0.02 (0-0.4) PT (9.95-12.35) SECONDS INR (0.8-3.0) Sodium (137-145) mmol/L Potassium (3.5-5.1) mmol/L Chloride (98-107) mmol/L Carbon Dioxide (22-30) mmol/L Anion Gap (5-15) MEQ/L BUN (7-17) mg/dL Creatinine (0.52-1.04) mg/dL Estimated GFR ML/MIN Glucose (74-106) mg/dL Calcium (8.4-10.2) mg/dL Total Bilirubin (0.2-1.3) mg/dL AST (14-36) U/L ALT (0-35) U/L Alkaline Phosphatase (38-126) U/L Troponin I (0.000-0.034) ng/mL NT-Pro-B Natriuret Pep (0-900) pg/mL Serum Total Protein (6.3-8.2) g/dL Albumin (3.5-5.0) g/dL - Progress Progress: improved Progress Note: 01/25/18 22:50 ORTHOSTASIS SUPINE BP 105/61 PULSE 61, SITTING BP 88/50 PULSE 104, ADMINISTERED 1 LITER FLUID BOLUS, BP 109/76 Counseled pt/family regarding: lab results, diagnosis, need for follow-up, rad results - Departure Time of Disposition: 23:00 Departure Disposition: Home Clinical Impression: ORTHOSTATIC HYPOTENSION Condition: Stable Critical Care Time: No Referrals: CALVIN PALOMINO [Primary Care Provider] - Additional Instructions: AVOID TAKING LISINOPRIL 5MG UNTIL WEDNESDAY. TAPER DOSE OF COREG TO 6.25MG TWICE DAILY. CONSULT YOUR PRIMARY CARE PROVIDER FOR MEDICATION ADJUSTMENT . DRINK PLENTY OF FLUIDS. RETURN TO EMERGENCY FOR LOW BLOOD PRESSURE
[2018-01-25 21:58] VITALS: O2SAT 95
[2018-01-25 22:51] LABS: Appearance SLIGHTLY CLOUDY (CLEAR); Bilirubin NEGATIVE (NEGATIVE); Blood NEGATIVE Ery/ul (0-5); Glucose NEGATIVE (NEGATIVE); Ketones NEGATIVE (NEGATIVE); Leukocyte Esterase 1+ (NEGATIVE); Nitrite POSITIVE (NEGATIVE); Protein,Urine Dip TRACE (Negative); Urobilinogen NORMAL mg/dL (0-1)
[2018-01-25 23:02] LABS: Bacteria MODERATE /HPF (NEGATIVE); Epithelial Cells MODERATE /HPF (FEW); RBC 0-2 /HPF (0-2)
[2018-01-25] MEDS ORDERED: ROCEPHIN 1 Gm-D5w 50 ml Bag** 1 G/50 ML IVPB IV STA (23:08)
[2018-01-25] MEDS ORDERED: ROCEPHIN 1 Gm-D5w 50 ml Bag** 1 G/50 ML IVPB IV ONE (23:10)
--- NOTE | 2018-01-26 09:06 | XRAY ---
Indication: Cough. Comparison: December 01, 2017. Portable chest underinflated today accentuating the cardiopulmonary structures and crowding the lung bases. Remaining heart, lungs, and bony thorax unremarkable.
== END 2018-01-26 00:10 | disposition home or self-care (01) ==
LOC: ED 19:26
DX: I95.1 Orthostatic hypotension (principal); R42 Dizziness and giddiness; Z79.899 Other long term (current) drug therapy; E11.9 Type 2 diabetes mellitus without complications; Z79.84 Long term (current) use of oral hypoglycemic drugs; I10 Essential (primary) hypertension
CPT/HCPCS: 36000; 36415; 71045; 80053; 81000; 83880; 84484; 85025; 85610; 87077; 87086; 87186; 93005; 93041; 99283; 99284; J0696

== ENCOUNTER 2018-10-08 18:42 | Emergency (ER) | payer MEDICARE ==
--- NOTE | 2018-10-08 19:20 | ERPHSYRPT ---
- History of Present Illness Time Seen by Provider: 10/08/18 19:00 Source: patient, EMS Patient Subjective Stated Complaint: pt reports approx 1700 tonight she began having left knee pain increased with movement. pt reports seeing 3 orthopedic surgeons in the past for knee issues r/t arthritis. pt denies any injury. Triage Nursing Assessment: pt is aox3, pupils perrl, afebrile, resps easy and non labored, radial pulses strong and equal, pt skin pink warm dry. pt has obese lower extremities with no apparent edema noted, bilat knees measuring approx 61cm. skin is intact. pt ambulated several steps from cot to stretcher with no apparent difficulty. pedal pulses present and equal. Physician History: 58 y/o morbidly obese white female with diabetes and htn presents with sudden onset of anterolateral left knee pain. pt has chronic knee pain/issues. pt denies any injury. pt has been evaluated by three orthopedic surgeons, all stating they would not operate on this pt. pt states she was able to ambulate in the last 2 hours with a walker. Method of Injury: other (no injury) Occurred: hours ago (2) Quality: stabbing Severity of Pain-Max: moderate Severity of Pain-Current: mild Lower Extremities Pain: knee: left Modifying Factors: Improves With: other (ambulated) Allergies/Adverse Reactions: cyclobenzaprine HCl [From Flexeril] Allergy (Mild, Verified 10/08/18 19:04) Rash Sulfa (Sulfonamide Antibiotics) [Sulfa(Sulfonamide Antibiotics)] Allergy (Mild, Verified 10/08/18 19:04) Rash adhesive Allergy (Verified 10/08/18 19:04) nalbuphine HCl [From Nubain] Adverse Reaction (Intermediate, Verified 10/08/18 19:04) Stomach Cramps patient states she had stomach "burning" and that her legs felt like "rubber bands" meperidine HCl [From Demerol] Adverse Reaction (Mild, Verified 10/08/18 19:04) Vomiting Home Medications: Carvedilol 6.25 mg [Coreg 6.25 MG] 12.5 mg PO BID 03/17/16 [History] Duloxetine HCl 60 mg PO DAILY 03/17/16 [History] Ergocalciferol (Vitamin D2) [Vitamin D2] 50,000 unit PO Q7D 03/17/16 [History] Glyburide 5 mg [Micronase 5 MG] 5 mg PO BID 03/17/16 [History] Magnesium Oxide 400 mg [Mag-Ox 400] 800 mg PO DAILY 03/17/16 [History] Mesalamine [Pentasa] 500 mg PO BID 03/17/16 [History] Metformin HCl 1000 mg [Glucophage 1000 MG] 1,000 mg PO BID 03/17/16 [History] Methocarbamol 500 mg [Robaxin 500 MG] 1,000 mg PO QIDPRN PRN 03/17/16 [ History] Omeprazole 20 MG [Prilosec 20 mg] 20 mg PO BID 03/17/16 [History] Sitagliptin Phosphate 50 MG [Januvia 50 MG] 100 mg PO DAILY 03/17/16 [ History] Nitroglycerin 0.4 mg Tablet [Nitrostat 0.4 MG Tablet] 0.4 mg SL Q5MIN PRN MR X 3 PRN 06/15/16 [History] Aripiprazole 10 mg [Abilify 10 MG] 2 mg HS 08/08/16 [History] Aspirin 81 gm Chew [Baby Aspirin 81 mg Chew] 81 mg PO DAILY 10/08/16 [ History] Nitroglycerin [Nitro-Dur] 0.3 mg TD DAILY 10/08/16 [History] Loperamide HCl [Anti-Diarrheal] 2 mg PO .PRN 01/08/17 [History] Primidone 50 MG [Mysoline 50Mg] 50 mg PO TID 02/05/17 [History] Potassium Chloride 10 Meq Tab* [Klor Con 10 MEQ] 10 meq DAILY 07/06/17 [ History] hydroCHLOROthiazide [Hydrochlorothiazide] 12.5 mg DAILY 07/06/17 [History] Atorvastatin Calcium 10 mg PO DAILY 01/25/18 [History] Famotidine 40 mg PO DAILY 01/25/18 [History] Lisinopril 5 mg [Zestril 5 MG] 2.5 mg PO DAILY 01/25/18 [History] Torsemide 10 mg PO 01/25/18 [History] Hx Tetanus, Diphtheria Vaccination/Date Given: No Hx Influenza Vaccination/Date Given: No Hx Pneumococcal Vaccination/Date Given: No Immunizations Up to Date: Yes - Review of Systems Constitutional: No Symptoms Eyes: No Symptoms Ears, Nose, & Throat: No Symptoms Respiratory: No Symptoms Cardiac: No Symptoms Abdominal/Gastrointestinal: No Symptoms Genitourinary Symptoms: No Symptoms Musculoskeletal: Joint Pain (left knee) Skin: No Symptoms Neurological: No Symptoms Psychological: No Symptoms Endocrine: No Symptoms Hematologic/Lymphatic: No Symptoms Immunological/Allergic: No Symptoms All Other Systems: Reviewed and Negative - Past Medical History Pertinent Past Medical History: Yes Neurological History: Peripheral Neuropathy, Other ENT History: No Pertinent History, Cataracts Cardiac History: Congestive Heart Failure, Coronary Artery Disease, High Cholesterol, Hypertension, Myocardial Infarction ([place]) Respiratory History: Sleep Apnea Endocrine Medical History: Diabetes Type II Musculoskeletal History: Fibromyalgia GI Medical History: Colitis, Crohns Disease History: Other Psycho-Social History: Anxiety, Depression Female Reproductive Disorders: No Pertinent History Other Medical History: superficial blood clot lower left arm last admission dx with shingles 06/2016, dizziness, chronic pain - Past Surgical History Past Surgical History: Yes Neuro Surgical History: No Pertinent History Cardiac: Cardiac Catheterization Respiratory: No Pertinent History Gastrointestinal: Other Genitourinary: Other Musculoskeletal: No Pertinent History Female Surgical History: Section, Tubal Ligation Other Surgical History: KIDNEY STONE REMOVAL, D&C - Social History Smoking Status: Never smoker Exposure to second hand smoke: No Alcohol Use: None Drug Use: none Patient Lives Alone: No Significant Family History: diabetes, hypertension - Female History Hx Now: No - Nursing Vital Signs Nursing Vital Signs: Initial Vital Signs Temperature 98.0 F 10/08/18 18:43 Pulse Rate 100 H 10/08/18 18:43 Respiratory Rate 24 10/08/18 18:43 Blood Pressure 161/63 10/08/18 18:43 O2 Sat by Pulse Oximetry 96 10/08/18 18:43 Pain Scale Pain Intensity 4 - Physical Exam General Appearance: no apparent distress, alert, anxiety Neck Exam: normal inspection, non-tender, supple, full range of motion Cardiovascular/Respiratory Exam: chest non-tender, normal breath sounds, regular rate/rhythm Gastrointestinal/Abdominal Exam: non-tender, soft Back Exam: normal inspection, normal range of motion, No CVA tenderness, No vertebral tenderness Hips Exam: bilateral: non-tender, normal inspection, normal range of motion, no evidence of injury Legs Exam: bilateral leg: non-tender, normal inspection, normal range of motion , no evidence of injury Knees Exam: right knee: non-tender, left knee: normal inspection, normal range of motion, no evidence of injury, soft tissue tenderness Ankle Exam: bilateral ankle: non-tender, normal inspection, normal range of motion, no evidence of injury Foot Exam: bilateral foot: non-tender, normal inspection, normal range of motion , no evidence of injury Neuro/Tendon Exam: normal sensation, normal motor functions, normal tendon functions Mental Status Exam: alert, oriented x 3, cooperative Skin Exam: normal color, warm, dry SpO2 Interpretation: normal SpO2: 96 Oxygen Delivery: Room Air - Course Nursing assessment & vital signs reviewed: Yes Ordered Tests: Active Orders 24 hr Category Date Time Status KNEE (3 VIEWS) Stat Exams 10/08/18 19:22 Taken - Progress Progress: unchanged Progress Note: 10/08/18 20:39 xray left knee-tricompartmental osteoarthritis Counseled pt/family regarding: diagnosis, need for follow-up, rad results - Departure Time of Disposition: 20:40 Departure Disposition: Home Clinical Impression: Osteoarthritis Condition: Stable Critical Care Time: No Referrals: CALVIN PALOMINO [Primary Care Provider] - Additional Instructions: follow up with primary doctor and orthopedic surgeon for further management Prescriptions: Prednisone 10 mg [Deltasone 10 mg] 10 mg PO BID #12 tablet
[2018-10-08] MEDS ORDERED: NORCO 5/325 MG PO ONE (20:42)
[2018-10-08] MEDS ORDERED: DELTASONE 10 MG PO ONE (20:42)
[2018-10-08] MEDS ORDERED: DELTASONE 20 MG ONE (20:46)
[2018-10-08] MEDS ORDERED: NORCO 5/325 MG ONE (20:46)
[2018-10-08 22:04] VITALS: BP 130/70; PULSE 88; O2SAT 95
--- NOTE | 2018-10-08 22:08 | XRAY ---
Indication: Lateral knee pain. No known injury. Comparison: May 17, 2014. 3 views of the left knee demonstrates progressive worsening moderate/advanced tricompartmental degenerative changes again greatest medial compartment. No new/acute bony, articular, or soft tissue abnormalities. Comment: Preliminary interpretation was made by [facility]. No discrepancy.
== END 2018-10-08 22:05 | disposition home or self-care (01) ==
LOC: ED 18:42
DX: M17.12 Unilateral primary osteoarthritis, left knee (principal); M25.562 Pain in left knee; Z79.899 Other long term (current) drug therapy; E11.9 Type 2 diabetes mellitus without complications; Z79.84 Long term (current) use of oral hypoglycemic drugs; I10 Essential (primary) hypertension
CPT/HCPCS: 73562; 99284; A9270-GY

== ENCOUNTER 2019-01-18 09:01 | Emergency (ER) | payer MEDICARE ==
[2019-01-18 09:29] VITALS: O2SAT 98
--- NOTE | 2019-01-18 09:42 | ERPHSYRPT ---
- History of Present Illness Time Seen by Provider: 01/18/19 09:30 Historian: patient Exam Limitations: no limitations Patient Subjective Stated Complaint: states right flank pain since this AM hx kidney stone Triage Nursing Assessment: alert and in no distress. c/o pain ro right flank this AM has Hx kidney stones. denies fever. staes stones were on the right. nausdea/no vomiting Physician History: 58 y/o morbidly obese white female with h/o kidney stones, presents with sudden onset of right flank pain since this am. pt states she can take percocet and dilaudid for pain and only antibx allergic to is sulfa. pt denies cp, denies abd pain. pt does have some chronic lower back pain issues but todays pain is different. pt denies n/v/d. pt denies hematuria and denies dysuria. Timing/Duration: today Activities at Onset: none Quality: sharpness, stabbing Abdominal Pain Onset Location: flank (right ) Pain Radiation: no radiation Severity of Pain-Max: moderate Severity of Pain-Current: moderate (worse with movement) Modifying Factors: Improves With: other (took ibuprofen this am without improvement) Previous symptoms: same symptoms as today Allergies/Adverse Reactions: cyclobenzaprine HCl [From Flexeril] Allergy (Mild, Verified 01/18/19 09:30) Rash Sulfa (Sulfonamide Antibiotics) [Sulfa(Sulfonamide Antibiotics)] Allergy (Mild, Verified 01/18/19 09:30) Rash adhesive Allergy (Verified 01/18/19 09:30) nalbuphine HCl [From Nubain] Adverse Reaction (Intermediate, Verified 01/18/19 09:30) Stomach Cramps patient states she had stomach "burning" and that her legs felt like "rubber bands" meperidine HCl [From Demerol] Adverse Reaction (Mild, Verified 01/18/19 09:30) Vomiting Home Medications: Carvedilol 6.25 mg [Coreg 6.25 MG] 12.5 mg PO BID 03/17/16 [History] Duloxetine HCl 60 mg PO DAILY 03/17/16 [History] Ergocalciferol (Vitamin D2) [Vitamin D2] 50,000 unit PO Q7D 03/17/16 [History] Glyburide 5 mg [Micronase 5 MG] 5 mg PO BID 03/17/16 [History] Magnesium Oxide 400 mg [Mag-Ox 400] 800 mg PO DAILY 03/17/16 [History] Mesalamine [Pentasa] 500 mg PO BID 03/17/16 [History] Metformin HCl 1000 mg [Glucophage 1000 MG] 1,000 mg PO BID 03/17/16 [History] Methocarbamol 500 mg [Robaxin 500 MG] 1,000 mg PO QIDPRN PRN 03/17/16 [ History] Omeprazole 20 MG [Prilosec 20 mg] 20 mg PO BID 03/17/16 [History] Sitagliptin Phosphate 50 MG [Januvia 50 MG] 100 mg PO DAILY 03/17/16 [ History] Nitroglycerin 0.4 mg Tablet [Nitrostat 0.4 MG Tablet] 0.4 mg SL Q5MIN PRN MR X 3 PRN 06/15/16 [History] Aripiprazole 10 mg [Abilify 10 MG] 2 mg HS 08/08/16 [History] Aspirin 81 gm Chew [Baby Aspirin 81 mg Chew] 81 mg PO DAILY 10/08/16 [ History] Nitroglycerin [Nitro-Dur] 0.3 mg TD DAILY 10/08/16 [History] Loperamide HCl [Anti-Diarrheal] 2 mg PO .PRN 01/08/17 [History] Primidone 50 MG [Mysoline 50Mg] 50 mg PO TID 02/05/17 [History] Potassium Chloride 10 Meq Tab* [Klor Con 10 MEQ] 10 meq DAILY 07/06/17 [ History] hydroCHLOROthiazide [Hydrochlorothiazide] 12.5 mg DAILY 07/06/17 [History] Atorvastatin Calcium 10 mg PO DAILY 01/25/18 [History] Famotidine 40 mg PO DAILY 01/25/18 [History] Lisinopril 5 mg [Zestril 5 MG] 2.5 mg PO DAILY 01/25/18 [History] Torsemide 10 mg PO 01/25/18 [History] Hx Tetanus, Diphtheria Vaccination/Date Given: No Hx Influenza Vaccination/Date Given: No Hx Pneumococcal Vaccination/Date Given: No - Review of Systems Constitutional: No Symptoms Eyes: No Symptoms Ears, Nose, & Throat: No Symptoms Respiratory: No Symptoms Cardiac: No Symptoms Abdominal/Gastrointestinal: No Symptoms Genitourinary Symptoms: Flank Pain (right) Musculoskeletal: No Symptoms Skin: No Symptoms Neurological: No Symptoms Psychological: No Symptoms Endocrine: No Symptoms Hematologic/Lymphatic: No Symptoms Immunological/Allergic: No Symptoms All Other Systems: Reviewed and Negative - Past Medical History Pertinent Past Medical History: Yes Neurological History: Peripheral Neuropathy, Other ENT History: No Pertinent History, Cataracts Cardiac History: Congestive Heart Failure, Coronary Artery Disease, High Cholesterol, Hypertension, Myocardial Infarction ([place]) Respiratory History: Sleep Apnea Endocrine Medical History: Diabetes Type II Musculoskeletal History: Fibromyalgia GI Medical History: Colitis, Crohns Disease History: Other Psycho-Social History: Anxiety, Depression Female Reproductive Disorders: No Pertinent History Other Medical History: superficial blood clot lower left arm last admission dx with shingles 06/2016, dizziness, chronic pain - Past Surgical History Past Surgical History: Yes Neuro Surgical History: No Pertinent History Cardiac: Cardiac Catheterization Respiratory: No Pertinent History Gastrointestinal: Other Genitourinary: Other Musculoskeletal: No Pertinent History Female Surgical History: Section, Tubal Ligation Other Surgical History: KIDNEY STONE REMOVAL, D&C - Social History Smoking Status: Never smoker Exposure to second hand smoke: No Alcohol Use: None Drug Use: none Patient Lives Alone: No Significant Family History: diabetes, hypertension - Female History Hx Now: No - Nursing Vital Signs Nursing Vital Signs: Initial Vital Signs Temperature 97.8 F 01/18/19 09:23 Pulse Rate 94 H 01/18/19 09:23 Respiratory Rate 18 01/18/19 09:23 Blood Pressure 184/94 01/18/19 09:23 O2 Sat by Pulse Oximetry 98 01/18/19 09:23 Pain Scale Pain Intensity 6 - Physical Exam General Appearance: mild distress, alert, anxiety Eye Exam: PERRL/EOMI Ears, Nose, Throat Exam: normal ENT inspection, moist mucous membranes Neck Exam: normal inspection, non-tender, supple, full range of motion Respiratory Exam: normal breath sounds, lungs clear, airway intact, No chest tenderness, No respiratory distress Cardiovascular Exam: regular rate/rhythm, normal heart sounds, normal peripheral pulses Gastrointestinal/Abdomen Exam: soft, normal bowel sounds, No tenderness, No guarding, No rebound Pelvic Exam: not done Rectal Exam: not done Back Exam: normal inspection, normal range of motion, CVA tenderness (right), No vertebral tenderness Extremity Exam: normal inspection, normal range of motion, pelvis stable Neurologic Exam: alert, oriented x 3, cooperative, bath mixer II-XII nml as tested Skin Exam: normal color, warm, dry Lymphatic Exam: No adenopathy SpO2 Interpretation: normal SpO2: 98 O2 Delivery: Room Air - Course Nursing assessment & vital signs reviewed: Yes Ordered Tests: Active Orders 24 hr Category Date Time Status CULTURE,URINE Stat Lab 01/18/19 09:36 Received UA W/RFX UR CULTURE Stat Lab 01/18/19 09:36 Completed Lab/Rad Data: Laboratory Results 01/18/19 Range/Units 09:36 Urine Color WILLI (YELLOW) Urine Appearance CLOUDY (CLEAR) Urine pH 5.0 (5-6) Ur Specific [place] 1.034 (1.005-1.025) Urine Protein 100 (Negative) Urine Ketones TRACE (NEGATIVE) Urine Blood NEGATIVE (0-5) Jeff/ul Urine Nitrite POSITIVE (NEGATIVE) Urine Bilirubin SMALL (NEGATIVE) Urine Urobilinogen NEGATIVE (0-1) mg/dL Ur Leukocyte Esterase MODERATE (NEGATIVE) Urine WBC (Auto) 16-25 (0-5) /HPF Urine RBC (Auto) NONE (0-2) /HPF U Hyaline Cast (Auto) 3-5 (0-2) /LPF U Epithel Cells (Auto) FEW (FEW) /HPF Urine Bacteria (Auto) MANY (NEGATIVE) /HPF Urine Mucus (Auto) SLIGHT (NEGATIVE) /HPF Urine Culture Reflexed YES (NO) Urine Glucose NEGATIVE (NEGATIVE) mg/dL - Progress Progress: unchanged Counseled pt/family regarding: lab results, diagnosis, need for follow-up - Departure Departure Disposition: Home Clinical Impression: UTI (urinary tract infection) Condition: Stable Critical Care Time: No Referrals: CALVIN PALOMINO [Primary Care Provider] - Additional Instructions: drink plenty of fluids. add ibuprofen for pain. follow up with primary doctor for persistent symptoms Prescriptions: Hydrocodone/APAP 5/325 [[place] 5/325 mg] 1 each PO Q12H PRN PRN #5 tablet MDD 2 PRN Reason: Pain Ciprofloxacin [Cipro 500 MG] 500 mg PO BID #20 tablet
[2019-01-18 09:57] LABS: Appearance CLOUDY (CLEAR); Bacteria MANY /HPF (NEGATIVE); Bilirubin SMALL (NEGATIVE); Blood NEGATIVE Ery/ul (0-5); Epithelial Cells FEW /HPF (FEW); Glucose NEGATIVE (NEGATIVE); Ketones TRACE (NEGATIVE); Leukocyte Esterase MODERATE (NEGATIVE); Mucus SLIGHT /HPF (NEGATIVE); Nitrite POSITIVE (NEGATIVE); Protein,Urine Dip 100 (Negative); Specific Gravity 1.034 (1.005-1.025); Urobilinogen NEGATIVE mg/dL (0-1)
[2019-01-18 10:23] VITALS: BP 186/88; PULSE 72
== END 2019-01-18 10:27 | disposition home or self-care (01) ==
LOC: ED 09:01
DX: N39.0 Urinary tract infection, site not specified (principal); I50.9 Heart failure, unspecified; E78.00 Pure hypercholesterolemia, unspecified; I10 Essential (primary) hypertension; G62.9 Polyneuropathy, unspecified; G47.30 Sleep apnea, unspecified; I25.2 Old myocardial infarction; E11.9 Type 2 diabetes mellitus without complications; M79.7 Fibromyalgia; K50.90 Crohn's disease, unspecified, without complications; F41.8 Other specified anxiety disorders; Z87.442 Personal history of urinary calculi; Z79.899 Other long term (current) drug therapy
CPT/HCPCS: 81001; 87077; 87086; 87186; 99283

== ENCOUNTER 2019-02-07 19:04 | Emergency (ER) | payer MEDICARE ==
[2019-02-07] MEDS ORDERED: Sodium Chloride 0.9% 1000 ML 1,000 ML ONE ×2 (19:35→23:00)
[2019-02-07] MEDS: Sodium Chloride 0.9% 1000 ML 1,000 ML IV STA ×2 (19:39→23:08)
[2019-02-07] MEDS: COREG 12.5 MG PO STA (19:48)
[2019-02-07 20:04] LABS: BASOPHIL % 0.3 % (0.0-0.4); Basophil (Absolute #) 0.03 (0-0.4); Eosinophil % 5.1 % (0.00-5.0); Eosinophil (Absolute #) 0.58 (0-0.5); Granulocyte Absolute (ANC) 8.83 (1.4-6.9); Granulocytes % 77.5 % (36.0-66.0); Hematocrit 39.2 % (35-47); Hemoglobin 11.9 gm/dl (12.0-16.0); Lymphocyte (Absolute #) 1.35 (1.0-4.6); Lymphocytes % 11.9 % (24.0-44.0); Mean Cell Volume 80.5 fl (78-100); Mean Corpuscular Hemoglobin 24.4 pg (26-32); Mean Corpuscular Hgb Concent. 30.4 g/dl (32-36); Mean Platelet Volume 12.5 fl (6-9.5); Monocyte (Absolute #) 0.59 (0.0-1.3); Monocytes % 5.2 % (0.0-12.0); Platelet Count 288 K/mm3 (150-450); Red Blood Count 4.87 M/mm3 (4.1-5.4); Red Cell Distribution Width 17.5 % (11.5-14.0); White Blood Count 11.4 K/mm3 (4.0-10.5)
[2019-02-07 20:18] LABS: ALKALINE PHOSPHATASE 145 U/L (38-126); ANION GAP 19.6 MEQ/L (5-15); BLOOD UREA NITROGEN 21 mg/dL (7-17); CHLORIDE 100 mmol/L (98-107); Calcium 9.6 mg/dL (8.4-10.2); Carbon Dioxide 22 mmol/L (22-30); Glucose 220 mg/dL (74-106); MAGNESIUM 1.7 mg/dL (1.6-2.3); Potassium 4.3 mmol/L (3.5-5.1); SGOT/AST 45 U/L (14-36); SGPT/ALT 28 U/L (0-35); SODIUM 138 mmol/L (137-145); Total Protein 8.1 g/dL (6.3-8.2)
[2019-02-07 20:57] LABS: Lactic Acid 3.7 (0.4-2.0)
[2019-02-07 22:37] LABS: Slide Review 1 YES
[2019-02-07 23:14] LABS: Appearance SLIGHTLY CLOUDY (CLEAR); Bacteria RARE /HPF (NEGATIVE); Bilirubin NEGATIVE (NEGATIVE); Blood NEGATIVE Ery/ul (0-5); Epithelial Cells RARE /HPF (FEW); Glucose NEGATIVE (NEGATIVE); Hyaline Casts 0-2 /LPF (0-2); Ketones NEGATIVE (NEGATIVE); Leukocyte Esterase NEGATIVE (NEGATIVE); Mucus SLIGHT /HPF (NEGATIVE); Nitrite NEGATIVE (NEGATIVE); Protein,Urine Dip NEGATIVE (Negative); Specific Gravity 1.027 (1.005-1.025); Urobilinogen NEGATIVE mg/dL (0-1)
[2019-02-07 23:46] LABS: Lactic Acid 2.6 (0.4-2.0)
[2019-02-08 00:01] VITALS: O2SAT 96
[2019-02-08 00:38] LABS: ANION GAP 15.2 MEQ/L (5-15); BLOOD UREA NITROGEN 20 mg/dL (7-17); CHLORIDE 104 mmol/L (98-107); Calcium 8.9 mg/dL (8.4-10.2); Carbon Dioxide 23 mmol/L (22-30); Glucose 142 mg/dL (74-106); Potassium 4.1 mmol/L (3.5-5.1); SODIUM 138 mmol/L (137-145)
[2019-02-08 01:14] VITALS: BP 160/92; PULSE 88
--- NOTE | 2019-02-08 01:18 | ERPHSYRPT ---
- History of Present Illness Source: patient Exam Limitations: no limitations Patient Subjective Stated Complaint: dizziness, nausea, had hgb AIC yesterday 9.05 Triage Nursing Assessment: lungs clear, pt gets sob with minimal exertion. heart tones regular. Abd lg, obese with active bs x4 quad. no edema noted. BS 216 here in ER. Physician History: Pt is a 58 y/o female with a h/o DM II, that presented to the ER with complasins of high BG and dizziness. Pt's BG in the ER was in the 200s, but as pt had dizziness, she decided to stay in the ED. Pt complains of polydipsia and polyuria. No chest pain or palpitations. No SOB or cough. Pt denies F/C/ S. No N/V/D or abdominal pain. Timing/Duration: today Severity: mild Associated Symptoms: denies symptoms Allergies/Adverse Reactions: cyclobenzaprine HCl [From Flexeril] Allergy (Mild, Verified 01/18/19 09:30) Rash Sulfa (Sulfonamide Antibiotics) [Sulfa(Sulfonamide Antibiotics)] Allergy (Mild, Verified 01/18/19 09:30) Rash adhesive Allergy (Verified 01/18/19 09:30) nalbuphine HCl [From Nubain] Adverse Reaction (Intermediate, Verified 01/18/19 09:30) Stomach Cramps patient states she had stomach "burning" and that her legs felt like "rubber bands" ciprofloxacin [From Cipro] Adverse Reaction (Mild, Verified 02/07/19 19:24) meperidine HCl [From Demerol] Adverse Reaction (Mild, Verified 01/18/19 09:30) Vomiting Home Medications: Carvedilol 6.25 mg [Coreg 6.25 MG] 12.5 mg PO BID 03/17/16 [History] Duloxetine HCl 60 mg PO DAILY 03/17/16 [History] Ergocalciferol (Vitamin D2) [Vitamin D2] 50,000 unit PO Q7D 03/17/16 [History] Glyburide 5 mg [Micronase 5 MG] 5 mg PO BID 03/17/16 [History] Mesalamine [Pentasa] 500 mg PO BID 03/17/16 [History] Metformin HCl 1000 mg [Glucophage 1000 MG] 1,000 mg PO BID 03/17/16 [History] Methocarbamol 500 mg [Robaxin 500 MG] 1,000 mg PO QIDPRN PRN 03/17/16 [ History] Omeprazole 20 MG [Prilosec 20 mg] 20 mg PO BID 03/17/16 [History] Sitagliptin Phosphate 50 MG [Januvia 50 MG] 100 mg PO DAILY 03/17/16 [ History] Nitroglycerin 0.4 mg Tablet [Nitrostat 0.4 MG Tablet] 0.4 mg SL Q5MIN PRN MR X 3 PRN 06/15/16 [History] Aripiprazole 10 mg [Abilify 10 MG] 2 mg HS 08/08/16 [History] Aspirin 81 gm Chew [Baby Aspirin 81 mg Chew] 81 mg PO DAILY 10/08/16 [ History] Loperamide HCl [Anti-Diarrheal] 2 mg PO .PRN 01/08/17 [History] Primidone 50 MG [Mysoline 50Mg] 50 mg PO BID 02/05/17 [History] Atorvastatin Calcium 10 mg PO DAILY 01/25/18 [History] Lisinopril 5 mg [Zestril 5 MG] 2.5 mg PO DAILY 01/25/18 [History] Hx Tetanus, Diphtheria Vaccination/Date Given: No (not up to date on tetanus) Hx Influenza Vaccination/Date Given: No Hx Pneumococcal Vaccination/Date Given: No Immunizations Up to Date: No - Review of Systems Constitutional: No Fever, No Chills Eyes: No Symptoms Ears, Nose, & Throat: No Symptoms Respiratory: No Cough, No Dyspnea Cardiac: No Chest Pain, No Edema, No Syncope Abdominal/Gastrointestinal: No Abdominal Pain, No Nausea, No Vomiting, No Diarrhea Genitourinary Symptoms: No Dysuria Musculoskeletal: No Back Pain, No Neck Pain Neurological: No Dizziness, No Focal Weakness, No Sensory Changes Endocrine: Polyuria, Polydipsia - Past Medical History Pertinent Past Medical History: Yes Neurological History: Migraines ENT History: Cataracts Cardiac History: Coronary Artery Disease, High Cholesterol, Hypertension, Myocardial Infarction ([place]) Respiratory History: Asthma, Bronchitis, COPD, Sleep Apnea Endocrine Medical History: Diabetes Type II Musculoskeletal History: Arthritis, Degenerative Disk Disease, Fibromyalgia, Osteoarthritis GI Medical History: Crohns Disease, Diverticulitis, GERD History: No Pertinent History Psycho-Social History: Anxiety, Depression Female Reproductive Disorders: No Pertinent History Other Medical History: uti, yeast infection - Past Surgical History Past Surgical History: Yes Neuro Surgical History: No Pertinent History Cardiac: Cardiac Catheterization Respiratory: No Pertinent History Gastrointestinal: No Pertinent History Genitourinary: No Pertinent History Musculoskeletal: No Pertinent History Female Surgical History: Dilation & Curettage, Section, Tubal Ligation Other Surgical History: KIDNEY STONE REMOVAL, D&C - Social History Smoking Status: Never smoker Exposure to second hand smoke: Yes Alcohol Use: None Drug Use: none Patient Lives Alone: No Significant Family History: diabetes, hypertension - Female History Hx Now: No - Nursing Vital Signs Nursing Vital Signs: Initial Vital Signs Temperature 98.6 F 02/07/19 19:04 Pulse Rate 110 H 02/07/19 19:04 Respiratory Rate 20 02/07/19 19:04 Blood Pressure 190/90 02/07/19 19:04 O2 Sat by Pulse Oximetry 90 L 02/07/19 19:04 Pain Scale Pain Intensity 0 - Physical Exam General Appearance: no apparent distress, alert Eye Exam: PERRL/EOMI, eyes nml inspection Ears, Nose, Throat Exam: normal ENT inspection, TMs normal, pharynx normal, moist mucous membranes Neck Exam: normal inspection, non-tender, supple, full range of motion Respiratory Exam: normal breath sounds, lungs clear, No respiratory distress Cardiovascular Exam: regular rate/rhythm, normal heart sounds, normal peripheral pulses Gastrointestinal/Abdomen Exam: soft, normal bowel sounds, No tenderness, No mass Extremity Exam: normal inspection, normal range of motion, pelvis stable Neurologic Exam: alert, oriented x 3, cooperative, normal mood/affect, nml cerebellar function, nml station & gait, sensation nml, No motor deficits SpO2 Interpretation: normal SpO2: 96 - Course Nursing assessment & vital signs reviewed: Yes EKG Interpreted by Me: RATE (102), Sinus Rhythm, Non-specific ST Changes Ordered Tests: Active Orders 24 hr Category Date Time Status ACCUCHECK [Accucheck] STAT Care 02/07/19 19:13 Active Clean Catch Urine Specimen STAT Care 02/07/19 22:51 Active EKG-ER Only STAT Care 02/07/19 20:10 Active IV Insertion STAT Care 02/07/19 20:10 Active BMP Stat Lab 02/07/19 00:27 Completed CBC W DIFF Stat Lab 02/07/19 20:00 Completed CMP Stat Lab 02/07/19 20:00 Completed CULTURE,URINE Stat Lab 02/07/19 23:00 Received Lactic Acid Stat Lab 02/07/19 23:40 Results Lactic Acid Urgent Lab 02/07/19 20:50 Completed MAGNESIUM Stat Lab 02/07/19 20:00 Completed UA W/RFX UR CULTURE Stat Lab 02/07/19 23:00 Completed Medication Summary Discontinued Medications Generic Name Dose Route Start Last Admin Trade Name Freq PRN Reason Stop Dose Admin Carvedilol 12.5 mg 02/07/19 19:41 02/07/19 19:48 Coreg 12.5 Mg PO 02/07/19 19:42 Not Given ONCE STA Sodium Chloride 1,000 mls @ 999 mls/hr 02/07/19 19:32 02/07/19 20:40 Sodium Chloride 0.9% 1000 Ml IV 02/07/19 20:32 Infused .Q1H1M STA Infusion Sodium Chloride Confirm 02/07/19 19:35 Sodium Chloride 0.9% 1000 Ml Administered 02/07/19 19:36 Dose 1,000 mls @ ud .ROUTE .STK-MED ONE Sodium Chloride Confirm 02/07/19 23:00 Sodium Chloride 0.9% 1000 Ml Administered 02/07/19 23:01 Dose 1,000 mls @ ud .ROUTE .STK-MED ONE Sodium Chloride 1,000 mls @ 999 mls/hr 02/07/19 23:05 02/08/19 00:09 Sodium Chloride 0.9% 1000 Ml IV 02/08/19 00:05 Infused .Q1H1M STA Infusion Lab/Rad Data: Laboratory Result Diagrams 02/07/19 20:00 02/07/19 20:00 Laboratory Results 02/07/19 02/07/19 02/07/19 Range/Units 23:40 23:00 20:50 WBC (4.0-10.5) K/mm3 RBC (4.1-5.4) M/mm3 Hgb (12.0-16.0) gm/dl Hct (35-47) % MCV (78-100) fl MCH (26-32) pg MCHC (32-36) g/dl RDW (11.5-14.0) % Plt Count (150-450) K/mm3 MPV (6-9.5) fl Gran % (36.0-66.0) % Eos # (Auto) (0-0.5) Absolute Lymphs (auto) (1.0-4.6) Absolute Monos (auto) (0.0-1.3) Lymphocytes % (24.0-44.0) % Monocytes % (0.0-12.0) % Eosinophils % (0.00-5.0) % Basophils % (0.0-0.4) % Absolute Granulocytes (1.4-6.9) Basophils # (0-0.4) Sodium (137-145) mmol/L Potassium (3.5-5.1) mmol/L Chloride (98-107) mmol/L Carbon Dioxide (22-30) mmol/L Anion Gap (5-15) MEQ/L BUN (7-17) mg/dL Creatinine (0.52-1.04) mg/dL Estimated GFR ML/MIN Glucose (74-106) mg/dL Lactic Acid 2.6 H 3.7 H (0.4-2.0) Calcium (8.4-10.2) mg/dL Magnesium (1.6-2.3) mg/dL Total Bilirubin (0.2-1.3) mg/dL AST (14-36) U/L ALT (0-35) U/L Alkaline Phosphatase (38-126) U/L Serum Total Protein (6.3-8.2) g/dL Albumin (3.5-5.0) g/dL Urine Color YELLOW (YELLOW) Urine Appearance SLIGHTLY CLOUDY (CLEAR) Urine pH 5.0 (5-6) Ur Specific [place] 1.027 (1.005-1.025) Urine Protein NEGATIVE (Negative) Urine Ketones NEGATIVE (NEGATIVE) Urine Blood NEGATIVE (0-5) Jeff/ul Urine Nitrite NEGATIVE (NEGATIVE) Urine Bilirubin NEGATIVE (NEGATIVE) Urine Urobilinogen NEGATIVE (0-1) mg/dL Ur Leukocyte Esterase NEGATIVE (NEGATIVE) Urine WBC (Auto) 3-5 (0-5) /HPF Urine RBC (Auto) NONE (0-2) /HPF U Hyaline Cast (Auto) 0-2 (0-2) /LPF U Epithel Cells (Auto) RARE (FEW) /HPF Urine Bacteria (Auto) RARE (NEGATIVE) /HPF Urine Mucus (Auto) SLIGHT (NEGATIVE) /HPF Urine Culture Reflexed ORDERED SEPARATELY (NO) Urine Glucose NEGATIVE (NEGATIVE) mg/dL Slides for Path Review 02/07/19 02/07/19 02/07/19 Range/Units 20:00 20:00 00:27 WBC 11.4 H (4.0-10.5) K/mm3 RBC 4.87 (4.1-5.4) M/mm3 Hgb 11.9 L (12.0-16.0) gm/dl Hct 39.2 (35-47) % MCV 80.5 (78-100) fl MCH 24.4 L (26-32) pg MCHC 30.4 L (32-36) g/dl RDW 17.5 H (11.5-14.0) % Plt Count 288 (150-450) K/mm3 MPV 12.5 H (6-9.5) fl Gran % 77.5 H (36.0-66.0) % Eos # (Auto) 0.58 H (0-0.5) Absolute Lymphs (auto) 1.35 (1.0-4.6) Absolute Monos (auto) 0.59 (0.0-1.3) Lymphocytes % 11.9 L (24.0-44.0) % Monocytes % 5.2 (0.0-12.0) % Eosinophils % 5.1 H (0.00-5.0) % Basophils % 0.3 (0.0-0.4) % Absolute Granulocytes 8.83 H (1.4-6.9) Basophils # 0.03 (0-0.4) Sodium 138 138 (137-145) mmol/L Potassium 4.3 4.1 (3.5-5.1) mmol/L Chloride 100 104 (98-107) mmol/L Carbon Dioxide 22 23 (22-30) mmol/L Anion Gap 19.6 H 15.2 H (5-15) MEQ/L BUN 21 H 20 H (7-17) mg/dL Creatinine 0.70 0.60 (0.52-1.04) mg/dL Estimated GFR > 60.0 > 60.0 ML/MIN Glucose 220 H 142 H (74-106) mg/dL Lactic Acid (0.4-2.0) Calcium 9.6 8.9 (8.4-10.2) mg/dL Magnesium 1.7 (1.6-2.3) mg/dL Total Bilirubin 0.30 (0.2-1.3) mg/dL AST 45 H (14-36) U/L ALT 28 (0-35) U/L Alkaline Phosphatase 145 H (38-126) U/L Serum Total Protein 8.1 (6.3-8.2) g/dL Albumin 4.0 (3.5-5.0) g/dL Urine Color (YELLOW) Urine Appearance (CLEAR) Urine pH (5-6) Ur Specific [place] (1.005-1.025) Urine Protein (Negative) Urine Ketones (NEGATIVE) Urine Blood (0-5) Jeff/ul Urine Nitrite (NEGATIVE) Urine Bilirubin (NEGATIVE) Urine Urobilinogen (0-1) mg/dL Ur Leukocyte Esterase (NEGATIVE) Urine WBC (Auto) (0-5) /HPF Urine RBC (Auto) (0-2) /HPF U Hyaline Cast (Auto) (0-2) /LPF U Epithel Cells (Auto) (FEW) /HPF Urine Bacteria (Auto) (NEGATIVE) /HPF Urine Mucus (Auto) (NEGATIVE) /HPF Urine Culture Reflexed (NO) Urine Glucose (NEGATIVE) mg/dL Slides for Path Review YES - Progress Progress: improved Progress Note: 02/08/19 01:21 Pt had lab work done that showed elevated lactic acid, and a GAP of 19.6. Pt got 2 lit of NS IV and repeat lactate was 2.6 with GAP of 15.2 and BG of 142. UA was clean. Vitals improved and HR stabilized. Pt is much improved. She was educated about dehydration that is caused secondary to elevated BG. Pt was advised to f/u with her PCP, and keep diabetic diet. Pt was advised to increase her fluid intake. Discussed with : Ezio Will see patient in: office Counseled pt/family regarding: need for follow-up - Departure Departure Disposition: Home Clinical Impression: Hyperglycemia due to type 2 diabetes mellitus Condition: Stable Critical Care Time: No Referrals: CALVIN PALOMINO [Primary Care Provider] - Additional Instructions: F/u with PCP and take meds as directed. Keep DM diet, and increase fluid intake.
== END 2019-02-08 01:36 | disposition home or self-care (01) ==
LOC: ED 19:04
DX: E11.65 Type 2 diabetes mellitus with hyperglycemia (principal); I10 Essential (primary) hypertension; I25.2 Old myocardial infarction; E78.00 Pure hypercholesterolemia, unspecified; J44.9 Chronic obstructive pulmonary disease, unspecified; M19.90 Unspecified osteoarthritis, unspecified site; F41.9 Anxiety disorder, unspecified; F32.9 Major depressive disorder, single episode, unspecified; G47.30 Sleep apnea, unspecified; Z79.899 Other long term (current) drug therapy
CPT/HCPCS: 36000; 36415; 80048; 80053; 81001; 82962; 83605; 83735; 85025; 87086; 93005; 96360; 96361; 99284

== ENCOUNTER 2019-08-31 20:34 | Emergency (ER) | payer MEDICARE ==
--- NOTE | 2019-08-31 20:50 | ERPHSYRPT ---
- History of Present Illness Time Seen by Provider: 08/31/19 20:50 Allergies/Adverse Reactions: cyclobenzaprine HCl [From Flexeril] Allergy (Mild, Verified 01/18/19 09:30) Rash Sulfa (Sulfonamide Antibiotics) [Sulfa(Sulfonamide Antibiotics)] Allergy (Mild, Verified 01/18/19 09:30) Rash adhesive Allergy (Verified 01/18/19 09:30) nalbuphine HCl [From Nubain] Adverse Reaction (Intermediate, Verified 01/18/19 09:30) Stomach Cramps patient states she had stomach "burning" and that her legs felt like "rubber bands" ciprofloxacin [From Cipro] Adverse Reaction (Mild, Verified 02/07/19 19:24) meperidine HCl [From Demerol] Adverse Reaction (Mild, Verified 01/18/19 09:30) Vomiting Home Medications: Carvedilol 6.25 mg [Coreg 6.25 MG] 12.5 mg PO BID 03/17/16 [History] Duloxetine HCl 60 mg PO DAILY 03/17/16 [History] Ergocalciferol (Vitamin D2) [Vitamin D2] 50,000 unit PO Q7D 03/17/16 [History] Glyburide 5 mg [Micronase 5 MG] 5 mg PO BID 03/17/16 [History] Mesalamine [Pentasa] 500 mg PO BID 03/17/16 [History] Metformin HCl 1000 mg [Glucophage 1000 MG] 1,000 mg PO BID 03/17/16 [History] Methocarbamol 500 mg [Robaxin 500 MG] 1,000 mg PO QIDPRN PRN 03/17/16 [ History] Omeprazole 20 MG [Prilosec 20 mg] 20 mg PO BID 03/17/16 [History] Sitagliptin Phosphate 50 MG [Januvia 50 MG] 100 mg PO DAILY 03/17/16 [ History] Nitroglycerin 0.4 mg Tablet [Nitrostat 0.4 MG Tablet] 0.4 mg SL Q5MIN PRN MR X 3 PRN 06/15/16 [History] Aripiprazole 10 mg [Abilify 10 MG] 2 mg HS 08/08/16 [History] Aspirin 81 gm Chew [Baby Aspirin 81 mg Chew] 81 mg PO DAILY 10/08/16 [ History] Loperamide HCl [Anti-Diarrheal] 2 mg PO .PRN 01/08/17 [History] Primidone 50 MG [Mysoline 50Mg] 50 mg PO BID 02/05/17 [History] Atorvastatin Calcium 10 mg PO DAILY 01/25/18 [History] Lisinopril 5 mg [Zestril 5 MG] 2.5 mg PO DAILY 01/25/18 [History] Hx Tetanus, Diphtheria Vaccination/Date Given: No (not up to date on tetanus) Hx Influenza Vaccination/Date Given: No Hx Pneumococcal Vaccination/Date Given: No - Past Medical History Pertinent Past Medical History: Yes Neurological History: Migraines ENT History: Cataracts Cardiac History: Coronary Artery Disease, High Cholesterol, Hypertension, Myocardial Infarction ([place]) Respiratory History: Asthma, Bronchitis, COPD, Sleep Apnea Endocrine Medical History: Diabetes Type II Musculoskeletal History: Arthritis, Degenerative Disk Disease, Fibromyalgia, Osteoarthritis GI Medical History: Crohns Disease, Diverticulitis, GERD History: No Pertinent History Psycho-Social History: Anxiety, Depression Female Reproductive Disorders: No Pertinent History Other Medical History: uti, yeast infection - Past Surgical History Past Surgical History: Yes Neuro Surgical History: No Pertinent History Cardiac: Cardiac Catheterization Respiratory: No Pertinent History Gastrointestinal: No Pertinent History Genitourinary: No Pertinent History Musculoskeletal: No Pertinent History Female Surgical History: Dilation & Curettage, Section, Tubal Ligation Other Surgical History: KIDNEY STONE REMOVAL, D&C - Social History Smoking Status: Never smoker Exposure to second hand smoke: Yes Alcohol Use: None Drug Use: none Patient Lives Alone: No Significant Family History: diabetes, hypertension - Departure Referrals: CALVIN PALOMINO [Primary Care Provider] -
[2019-08-31 21:05] VITALS: O2SAT 96
--- NOTE | 2019-08-31 21:09 | ERPHSYRPT ---
- History of Present Illness Time Seen by Provider: 08/31/19 21:05 Historian: patient Exam Limitations: no limitations Patient Subjective Stated Complaint: pt is alert and oriented, sweating, rates pain as 7/10 in back Triage Nursing Assessment: pt alert and oriented, [id number] pain as 7/10 states she has more pain today than yesterday. Physician History: 59 y/o morbidly obese white female with h/o kidney stones but also recurrent right flank pain and utis. pt is allergic to sulfa antibx. pt denies abd pain. pt here with right flank pain. began yesterday and worse tonight. denies n/v/d Timing/Duration: yesterday Activities at Onset: none Quality: sharpness Abdominal Pain Onset Location: flank (right ) Pain Radiation: no radiation Severity of Pain-Max: mild Severity of Pain-Current: mild Associated Symptoms: back (right flank pain) Previous symptoms: same symptoms as today Allergies/Adverse Reactions: cyclobenzaprine HCl [From Flexeril] Allergy (Mild, Verified 08/31/19 21:01) Rash Sulfa (Sulfonamide Antibiotics) [Sulfa(Sulfonamide Antibiotics)] Allergy (Mild, Verified 08/31/19 21:01) Rash adhesive Allergy (Verified 08/31/19 21:01) nalbuphine HCl [From Nubain] Adverse Reaction (Intermediate, Verified 08/31/19 21:01) Stomach Cramps patient states she had stomach "burning" and that her legs felt like "rubber bands" ciprofloxacin [From Cipro] Adverse Reaction (Mild, Verified 08/31/19 21:01) meperidine HCl [From Demerol] Adverse Reaction (Mild, Verified 08/31/19 21:01) Vomiting Home Medications: Carvedilol 6.25 mg [Coreg 6.25 MG] 12.5 mg PO BID 03/17/16 [History] Duloxetine HCl 60 mg PO DAILY 03/17/16 [History] Ergocalciferol (Vitamin D2) [Vitamin D2] 50,000 unit PO Q7D 03/17/16 [History] Glyburide 5 mg [Micronase 5 MG] 5 mg PO BID 03/17/16 [History] Mesalamine [Pentasa] 500 mg PO BID 03/17/16 [History] Metformin HCl 1000 mg [Glucophage 1000 MG] 1,000 mg PO BID 03/17/16 [History] Methocarbamol 500 mg [Robaxin 500 MG] 1,000 mg PO QIDPRN PRN 03/17/16 [ History] Omeprazole 20 MG [Prilosec 20 mg] 20 mg PO BID 03/17/16 [History] Sitagliptin Phosphate 50 MG [Januvia 50 MG] 100 mg PO DAILY 03/17/16 [ History] Nitroglycerin 0.4 mg Tablet [Nitrostat 0.4 MG Tablet] 0.4 mg SL Q5MIN PRN MR X 3 PRN 06/15/16 [History] Aripiprazole 10 mg [Abilify 10 MG] 2 mg HS 08/08/16 [History] Aspirin 81 gm Chew [Baby Aspirin 81 mg Chew] 81 mg PO DAILY 10/08/16 [ History] Loperamide HCl [Anti-Diarrheal] 2 mg PO .PRN 01/08/17 [History] Primidone 50 MG [Mysoline 50Mg] 50 mg PO BID 02/05/17 [History] Atorvastatin Calcium 10 mg PO DAILY 01/25/18 [History] Lisinopril 5 mg [Zestril 5 MG] 2.5 mg PO DAILY 01/25/18 [History] Hx Tetanus, Diphtheria Vaccination/Date Given: No (not up to date on tetanus) Hx Influenza Vaccination/Date Given: No Hx Pneumococcal Vaccination/Date Given: No - Review of Systems Constitutional: No Symptoms Eyes: No Symptoms Ears, Nose, & Throat: No Symptoms Respiratory: No Symptoms Cardiac: No Symptoms Abdominal/Gastrointestinal: No Symptoms Genitourinary Symptoms: Flank Pain (right) Musculoskeletal: No Symptoms Skin: No Symptoms Neurological: No Symptoms Psychological: No Symptoms Endocrine: No Symptoms Hematologic/Lymphatic: No Symptoms Immunological/Allergic: No Symptoms All Other Systems: Reviewed and Negative - Past Medical History Pertinent Past Medical History: Yes Neurological History: Migraines ENT History: Cataracts Cardiac History: Coronary Artery Disease, High Cholesterol, Hypertension, Myocardial Infarction (ID) Respiratory History: Asthma, Bronchitis, COPD, Sleep Apnea Endocrine Medical History: Diabetes Type II Musculoskeletal History: Arthritis, Degenerative Disk Disease, Fibromyalgia, Osteoarthritis GI Medical History: Crohns Disease, Diverticulitis, GERD History: No Pertinent History Psycho-Social History: Anxiety, Depression Female Reproductive Disorders: No Pertinent History Other Medical History: uti, yeast infection, - Past Surgical History Past Surgical History: Yes Neuro Surgical History: No Pertinent History Cardiac: Cardiac Catheterization Respiratory: No Pertinent History Gastrointestinal: No Pertinent History Genitourinary: No Pertinent History Musculoskeletal: No Pertinent History Female Surgical History: Dilation & Curettage, Section, Tubal Ligation Other Surgical History: KIDNEY STONE REMOVAL, D&C - Social History Smoking Status: Never smoker Exposure to second hand smoke: Yes Alcohol Use: None Drug Use: none Patient Lives Alone: No Significant Family History: diabetes, hypertension - Female History Hx Now: No - Nursing Vital Signs Nursing Vital Signs: Initial Vital Signs Temperature 98.7 F 08/31/19 20:59 Pulse Rate 81 08/31/19 20:59 Respiratory Rate 20 08/31/19 20:59 Blood Pressure 195/90 08/31/19 20:59 O2 Sat by Pulse Oximetry 96 08/31/19 20:59 Pain Scale Pain Intensity 7 - Physical Exam General Appearance: no apparent distress, alert Eye Exam: PERRL/EOMI, eyes nml inspection Ears, Nose, Throat Exam: normal ENT inspection, moist mucous membranes Neck Exam: normal inspection, non-tender, supple, full range of motion Respiratory Exam: normal breath sounds, lungs clear, No chest tenderness, No respiratory distress, No airway intact Gastrointestinal/Abdomen Exam: soft, normal bowel sounds, No tenderness Pelvic Exam: not done Rectal Exam: not done Back Exam: normal inspection, normal range of motion, CVA tenderness (right mild ), No vertebral tenderness Extremity Exam: normal inspection, normal range of motion, pelvis stable Neurologic Exam: alert, oriented x 3, cooperative, 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 Skin Exam: normal color, warm, dry Lymphatic Exam: No adenopathy SpO2 Interpretation: normal SpO2: 96 O2 Delivery: Room Air - Course Nursing assessment & vital signs reviewed: Yes Ordered Tests: Active Orders 24 hr Category Date Time Status CULTURE,URINE Stat Lab 08/31/19 22:15 Received UA W/RFX UR CULTURE Stat Lab 08/31/19 22:15 Completed Lab/Rad Data: Laboratory Results 08/31/19 Range/Units 22:15 Urine Color YELLOW (YELLOW) Urine Appearance SLIGHTLY CLOUDY (CLEAR) Urine pH 5.0 (5-6) Ur Specific [place] 1.018 (1.005-1.025) Urine Protein NEGATIVE (Negative) Urine Ketones NEGATIVE (NEGATIVE) Urine Blood NEGATIVE (0-5) Jeff/ul Urine Nitrite POSITIVE (NEGATIVE) Urine Bilirubin NEGATIVE (NEGATIVE) Urine Urobilinogen NEGATIVE (0-1) mg/dL Ur Leukocyte Esterase SMALL (NEGATIVE) Urine WBC (Auto) 16-25 (0-5) /HPF Urine RBC (Auto) 0-2 (0-2) /HPF U Epithel Cells (Auto) NONE (FEW) /HPF Urine Bacteria (Auto) MODERATE (NEGATIVE) /HPF Urine Mucus (Auto) SLIGHT (NEGATIVE) /HPF Urine Culture Reflexed YES (NO) Urine Glucose NEGATIVE (NEGATIVE) mg/dL - Progress Progress: unchanged Counseled pt/family regarding: lab results, diagnosis - Departure Departure Disposition: Home Clinical Impression: UTI (urinary tract infection) Condition: Stable Critical Care Time: No Referrals: CALVIN PALOMINO [Primary Care Provider] - Additional Instructions: drink plenty of fluids. follow up with primary doctor further management. tylenol and ibuprofen at home Prescriptions: Cephalexin Mh 500 mg [Keflex 500 mg] 500 mg PO TID #21 capsule
[2019-08-31 22:34] LABS: Appearance SLIGHTLY CLOUDY (CLEAR); Bacteria MODERATE /HPF (NEGATIVE); Bilirubin NEGATIVE (NEGATIVE); Blood NEGATIVE Ery/ul (0-5); Glucose NEGATIVE (NEGATIVE); Ketones NEGATIVE (NEGATIVE); Leukocyte Esterase SMALL (NEGATIVE); Mucus SLIGHT /HPF (NEGATIVE); Nitrite POSITIVE (NEGATIVE); Protein,Urine Dip NEGATIVE (Negative); RBC 0-2 /HPF (0-2); Specific Gravity 1.018 (1.005-1.025); Urobilinogen NEGATIVE mg/dL (0-1)
[2019-08-31] MEDS ORDERED: NORCO 5/325 MG PO ONE (22:48)
[2019-08-31] MEDS ORDERED: Rocephin 1000 MG INJ IM ONE (22:48)
[2019-08-31] MEDS ORDERED: XYLOCAINE 1% HCL 20 ML MDV ONE (23:02)
[2019-08-31] MEDS ORDERED: Rocephin 1000 MG INJ ONE (23:02)
[2019-08-31] MEDS ORDERED: NORCO 5/325 MG ONE (23:02)
[2019-08-31 23:29] VITALS: BP 143/80; PULSE 80
== END 2019-08-31 23:20 | disposition home or self-care (01) ==
LOC: ED 20:34
DX: N39.0 Urinary tract infection, site not specified (principal); R10.9 Unspecified abdominal pain; Z79.899 Other long term (current) drug therapy; I25.10 Atherosclerotic heart disease of native coronary artery without angina pectoris; E78.00 Pure hypercholesterolemia, unspecified; I10 Essential (primary) hypertension; I25.2 Old myocardial infarction; E11.9 Type 2 diabetes mellitus without complications; J44.9 Chronic obstructive pulmonary disease, unspecified; Z79.84 Long term (current) use of oral hypoglycemic drugs
CPT/HCPCS: 81001; 87077; 87086; 87186; 96372; 99284; J0696; A9270-GY

== ENCOUNTER 2019-12-05 16:03 | Emergency (ER) | payer MEDICARE ==
--- NOTE | 2019-12-05 16:37 | ERPHSYRPT ---
- History of Present Illness Time Seen by Provider: 12/05/19 16:36 Source: patient Exam Limitations: no limitations Patient Subjective Stated Complaint: Pt states "I was seen at [facility] for bronchitis recently and I still just feel yucky. I am tired and my sugar is running high." Triage Nursing Assessment: Pt presented alert and orietned X 3, skin pwd Pt ambulates with an upright steady gait, able to speak in clear full sentences pt breathing tachy and deep. Pt stated she has body aches, cough and was recently seen at [facility] for bronchitis Physician History: Is a 59-year-old female who presents with a chief complaint of a cough and chest pain. Onset reported was 1 to 2 weeks ago. She endorsed having a productive cough a week ago in which she was coughing up green-tinged sputum and reportedly was seen at [facility] emergency department and diagnosed with bronchitis. Since that time, she is endorsed having intermittent chest pressure which she had during the ED visit which she describes as being midsternal, nonradiating, and is intermittent. The episodes of chest pain would last minutes before resolving spontaneously. She denies increasing shortness of breath from her baseline, nausea, vomiting, diaphoresis and left arm numbness and tingling. She reportedly has a follow-up appointment with her ext js developer tomorrow morning, Dr. Couch. Associated Symptoms: cough, chest pain, No nausea, No vomiting, No abdominal pain, No shortness of breath, No diaphoresis, No fever, No loss of appetite, No rash, No syncope Allergies/Adverse Reactions: cyclobenzaprine HCl [From Flexeril] Allergy (Mild, Verified 08/31/19 21:01) Rash Sulfa (Sulfonamide Antibiotics) [Sulfa(Sulfonamide Antibiotics)] Allergy (Mild, Verified 08/31/19 21:01) Rash adhesive Allergy (Verified 08/31/19 21:01) nalbuphine HCl [From Nubain] Adverse Reaction (Intermediate, Verified 08/31/19 21:01) Stomach Cramps patient states she had stomach "burning" and that her legs felt like "rubber bands" ciprofloxacin [From Cipro] Adverse Reaction (Mild, Verified 08/31/19 21:01) meperidine HCl [From Demerol] Adverse Reaction (Mild, Verified 08/31/19 21:01) Vomiting Home Medications: Duloxetine HCl 60 mg PO DAILY 03/17/16 [History] Ergocalciferol (Vitamin D2) [Vitamin D2] 50,000 unit PO Q7D 03/17/16 [History] Mesalamine [Pentasa] 500 mg PO BID 03/17/16 [History] Metformin HCl 1000 mg [Glucophage 1000 MG] 1,000 mg PO BID 03/17/16 [History] Methocarbamol 500 mg [Robaxin 500 MG] 1,000 mg PO QIDPRN PRN 03/17/16 [ History] Omeprazole 20 MG [Prilosec 20 mg] 20 mg PO BID 03/17/16 [History] Aripiprazole 10 mg [Abilify 10 MG] 2 mg PO HS 08/08/16 [History] Loperamide HCl [Anti-Diarrheal] 2 mg PO .PRN 01/08/17 [History] Primidone 50 MG [Mysoline 50Mg] 50 mg PO BID 02/05/17 [History] Atorvastatin Calcium 10 mg PO DAILY 01/25/18 [History] Alprazolam [Alprazolam ER] 0.5 mg PO TID 12/05/19 [History] Insulin Aspart Prot/Insuln Asp [Novolog Mix 70-30 Flexpen Syrn] 100 unit SQ DAILY 12/05/19 [History] Insulin Glargine,Hum.rec.anlog [Basaglar Kwikpen U-100] 100 unit SQ DAILY [History] Meclizine HCl 25 mg [Antivert 25 mg] 25 mg PO DAILY 12/05/19 [History] Hx Tetanus, Diphtheria Vaccination/Date Given: No Hx Influenza Vaccination/Date Given: No Hx Pneumococcal Vaccination/Date Given: No Immunizations Up to Date: Yes - Review of Systems Constitutional: No Fever, No Chills Eyes: No Symptoms Ears, Nose, & Throat: No Symptoms, No Nose Congestion, No Throat Pain, No Throat Swelling Respiratory: Cough, Dyspnea on Exertion ([place]), No Dyspnea Cardiac: Chest Pain, No Edema, No Palpitations, No Syncope, No Orthopnea Abdominal/Gastrointestinal: No Abdominal Pain, No Nausea, No Vomiting, No Diarrhea, No Constipation Musculoskeletal: No Symptoms Skin: No Symptoms Neurological: No Symptoms, No Dizziness, No Headache Psychological: No Symptoms Endocrine: No Symptoms Hematologic/Lymphatic: No Symptoms Immunological/Allergic: No Symptoms All Other Systems: Reviewed and Negative - Past Medical History Pertinent Past Medical History: Yes Neurological History: Migraines ENT History: Cataracts Cardiac History: Coronary Artery Disease, High Cholesterol, Hypertension, Myocardial Infarction (DC) Respiratory History: Asthma, Bronchitis, COPD, Sleep Apnea Endocrine Medical History: Diabetes Type II Musculoskeletal History: Arthritis, Degenerative Disk Disease, Fibromyalgia, Osteoarthritis GI Medical History: Crohns Disease, Diverticulitis, GERD History: No Pertinent History Psycho-Social History: Anxiety, Depression Female Reproductive Disorders: No Pertinent History Other Medical History: uti, yeast infection, - Past Surgical History Past Surgical History: Yes Neuro Surgical History: No Pertinent History Cardiac: Cardiac Catheterization Respiratory: No Pertinent History Gastrointestinal: No Pertinent History Genitourinary: No Pertinent History Musculoskeletal: No Pertinent History Female Surgical History: Dilation & Curettage, Section, Tubal Ligation Other Surgical History: KIDNEY STONE REMOVAL, D&C - Social History Smoking Status: Never smoker Exposure to second hand smoke: Yes Alcohol Use: None Drug Use: none Patient Lives Alone: No Significant Family History: diabetes, hypertension - Female History Hx Now: No - Nursing Vital Signs Nursing Vital Signs: Initial Vital Signs Temperature 98.1 F 12/05/19 16:16 Pulse Rate 102 H 12/05/19 16:16 Respiratory Rate 24 12/05/19 16:16 Blood Pressure 164/88 12/05/19 16:16 O2 Sat by Pulse Oximetry 98 12/05/19 16:16 Pain Scale Pain Intensity 0 - Physical Exam General Appearance: no apparent distress, obese, other (Patient was intermittently coughing during her emergency department stay.) Eye Exam: PERRL/EOMI, eyes nml inspection, No scleral icterus, No pale conjunctivae, No photophobia, No EOM palsy/anisocoria Ears, Nose, Throat Exam: normal ENT inspection, pharynx normal, No pharyngeal erythema Neck Exam: normal inspection Respiratory Exam: normal breath sounds, chest tenderness, lungs clear, airway intact, No respiratory distress, No diminished breath sounds Cardiovascular Exam: normal peripheral pulses, tachycardia, capillary refill <2 sec, other (Trace bilateral lower extremity edema), No murmur, No friction rub, No gallop Gastrointestinal/Abdomen Exam: soft, No tenderness, No distention, No mass, No guarding Pelvic Exam: not done Rectal Exam: deferred Back Exam: normal inspection Extremity Exam: normal inspection, No tenderness Neurologic Exam: alert, oriented x 3, cooperative Skin Exam: normal color, warm, dry, No rash, No petechiae, No jaundice Lymphatic Exam: adenopathy SpO2 Interpretation: normal SpO2: 98 O2 Delivery: Room Air - Course Nursing assessment & vital signs reviewed: Yes EKG Interpreted by Me: RATE, Sinus Rhythm, Other (Sinus tachycardiaVentricular rate 102 bpmPR 184 msQRS duration 72 msQT/QTc 342/446 msNo evidence of acute myocardial ischemia or injury. EKG is similar appearance on EKG dated December 01, 2017) - Radiology Exams Chest X-ray Interpretation: Reviewed by me, Negative (No evidence of acute cardiopulmonary process) - CT Exams Chest CT Interpretation: Negative (Compared to CTA dated March 19, 2016 there is suboptimal opacification of the pulmonary arteries. No obvious central PE no new or acute findings) Ordered Tests: Active Orders 24 hr Category Date Time Status EKG-ER Only STAT Care 12/05/19 16:36 Active IV Insertion STAT Care 12/05/19 16:36 Active CHEST 2 VIEWS (PA AND LAT) Stat Exams 12/05/19 16:36 Completed CHEST WITH CONTRAST [CT] Stat Exams 12/05/19 18:45 Taken BMP Stat Lab 12/05/19 16:40 Completed CBC W DIFF Stat Lab 12/05/19 16:40 Completed D-DIMER QUANTITATIVE Stat Lab 12/05/19 18:09 Completed TROPONIN Stat Lab 12/05/19 16:40 Completed TROPONIN Stat Lab 12/05/19 19:30 Completed Lab/Rad Data: Laboratory Result Diagrams 12/05/19 16:40 12/05/19 16:40 Laboratory Results 12/05/19 12/05/19 12/05/19 Range/Units 19:30 18:09 16:40 WBC (4.0-10.5) K/mm3 RBC (4.1-5.4) M/mm3 Hgb (12.0-16.0) gm/dl Hct (35-47) % MCV (78-100) fl MCH (26-32) pg MCHC (32-36) g/dl RDW (11.5-14.0) % Plt Count (150-450) K/mm3 MPV (7.5-11.0) fl Gran % (36.0-66.0) % Eos # (Auto) (0-0.5) Absolute Lymphs (auto) (1.0-4.6) Absolute Monos (auto) (0.0-1.3) Lymphocytes % (24.0-44.0) % Monocytes % (0.0-12.0) % Eosinophils % (0.00-5.0) % Basophils % (0.0-0.4) % Absolute Granulocytes (1.4-6.9) Basophils # (0-0.4) D-Dimer 964 H* (215-500) ng/mL Sodium (137-145) mmol/L Potassium (3.5-5.1) mmol/L Chloride (98-107) mmol/L Carbon Dioxide (22-30) mmol/L Anion Gap (5-15) MEQ/L BUN (7-17) mg/dL Creatinine (0.52-1.04) mg/dL Estimated GFR ML/MIN Glucose (74-106) mg/dL Calcium (8.4-10.2) mg/dL Troponin I < 0.012 < 0.012 (0.000-0.034) ng/mL 12/05/19 12/05/19 Range/Units 16:40 16:40 WBC 10.3 (4.0-10.5) K/mm3 RBC 4.50 (4.1-5.4) M/mm3 Hgb 10.6 L (12.0-16.0) gm/dl Hct 35.6 (35-47) % MCV 79.1 (78-100) fl MCH 23.6 L (26-32) pg MCHC 29.8 L (32-36) g/dl RDW 17.8 H (11.5-14.0) % Plt Count 335 (150-450) K/mm3 MPV 11.5 H (7.5-11.0) fl Gran % 80.7 H (36.0-66.0) % Eos # (Auto) 0.45 (0-0.5) Absolute Lymphs (auto) 1.08 (1.0-4.6) Absolute Monos (auto) 0.42 (0.0-1.3) Lymphocytes % 10.5 L (24.0-44.0) % Monocytes % 4.1 (0.0-12.0) % Eosinophils % 4.4 (0.00-5.0) % Basophils % 0.3 (0.0-0.4) % Absolute Granulocytes 8.34 H (1.4-6.9) Basophils # 0.03 (0-0.4) D-Dimer (215-500) ng/mL Sodium 138 (137-145) mmol/L Potassium 3.8 (3.5-5.1) mmol/L Chloride 106 (98-107) mmol/L Carbon Dioxide 21 L (22-30) mmol/L Anion Gap 14.4 (5-15) MEQ/L BUN 18 H (7-17) mg/dL Creatinine 0.75 (0.52-1.04) mg/dL Estimated GFR > 60.0 ML/MIN Glucose 257 H (74-106) mg/dL Calcium 9.4 (8.4-10.2) mg/dL Troponin I (0.000-0.034) ng/mL - Progress Progress: improved Progress Note: 12/05/19 20:11 Nontoxic in appearance. The patient is afebrile and looks well-hydrated. She did have some persistent tachycardia and because of her complaint of chest pain in addition to shortness of breath a d-dimer was obtained given her intermediate risk on her well score for PE and ultimately was elevated. A follow-up CTA of her chest was obtained to rule out pulmonary embolism in addition to aortic dissection it was negative for either. Serial troponins were within normal limits and her EKG appeared to have no evidence of acute myocardial ischemia or injury. Ultimately, her pain may be chest wall pain in addition to possible pleurisy and I feel she is likely suffering an upper respiratory tract infection that is likely viral at this time. She does have a prompt follow-up appointment scheduled with a ext js developer tomorrow morning and I feel that she can be safely discharged home to follow-up as scheduled for further evaluation and management for her reported chest pain. Currently I feel the likelihood of an ACS equivalent at this time is low given some of her atypical features. ED return precautions for chest pain was given. Counseled pt/family regarding: lab results, diagnosis, need for follow-up, rad results - Departure Departure Disposition: Home Clinical Impression: Chest pain in adult, Cough, Normocytic anemia, Hyperglycemia due to type 2 diabetes mellitus Condition: Stable Critical Care Time: No Referrals: CALVIN PALOMINO [Primary Care Provider] - SUJEY COUCH [CONSULTING PHYSICIAN] - Instructions: Chest Pain (DC), Hyperglycemia, Adult (DC) Additional Instructions: Please follow-up as scheduled with your ext js developer, Dr. Couch, tomorrow as scheduled per your report.
[2019-12-05 16:46] LABS: Absolute Neutrophil Ct (ANC) 8.34 (1.4-6.9); BASOPHIL % 0.3 % (0.0-0.4); Basophil (Absolute #) 0.03 (0-0.4); Eosinophil % 4.4 % (0.00-5.0); Eosinophil (Absolute #) 0.45 (0-0.5); Hematocrit 35.6 % (35-47); Hemoglobin 10.6 gm/dl (12.0-16.0); Lymphocyte (Absolute #) 1.08 (1.0-4.6); Lymphocytes % 10.5 % (24.0-44.0); Mean Cell Volume 79.1 fl (78-100); Mean Corpuscular Hemoglobin 23.6 pg (26-32); Mean Corpuscular Hgb Concent. 29.8 g/dl (32-36); Mean Platelet Volume 11.5 fl (7.5-11.0); Monocyte (Absolute #) 0.42 (0.0-1.3); Monocytes % 4.1 % (0.0-12.0); Neutrophil % 80.7 % (36.0-66.0); Platelet Count 335 K/mm3 (150-450); Red Cell Distribution Width 17.8 % (11.5-14.0); White Blood Count 10.3 K/mm3 (4.0-10.5)
[2019-12-05 17:08] LABS: ANION GAP 14.4 MEQ/L (5-15); BLOOD UREA NITROGEN 18 mg/dL (7-17); CHLORIDE 106 mmol/L (98-107); Calcium 9.4 mg/dL (8.4-10.2); Carbon Dioxide 21 mmol/L (22-30); Creatinine 1 0.75 mg/dL (0.52-1.04); Glucose 257 mg/dL (74-106); Potassium 3.8 mmol/L (3.5-5.1); SODIUM 138 mmol/L (137-145)
--- NOTE | 2019-12-05 17:14 | XRAY ---
Indication: Cough. Comparison: January 25, 2018. PA/lateral chest better inflated and clear. Heart and mediastinal structures within normal limits. Bony thorax intact with minimal degenerative changes. Impression: Nonacute chest.
[2019-12-05 20:14] VITALS: BP 109/68; PULSE 96
[2019-12-05 20:16] VITALS: O2SAT 98
--- NOTE | 2019-12-06 08:40 | XRAY ---
Indication: Chest pain, short of breath, and elevated d-dimer. Multiple contiguous axial images obtained through the chest using 100 cc Isovue 370 contrast and PE protocol. Comparison: March 19, 2016. There is suboptimal opacification of the pulmonary arteries limiting evaluation for pulmonary embolus. No obvious central pulmonary embolus. Heart is not enlarged. Aorta is normal in course and caliber. No pathologic mediastinal/hilar lymphadenopathy. Lungs again demonstrate minimal bilateral dependent atelectasis. No suspicious pulmonary mass, infiltrate, or effusion. Bony thorax intact. Limited upper abdomen again demonstrate mild fatty liver. Impression: 1. Pulmonary embolus evaluation limited due to suboptimal opacification. No obvious central pulmonary embolus. 2. No new or acute cardiopulmonary abnormalities. 3. Stable fatty liver.
== END 2019-12-05 20:21 | disposition home or self-care (01) ==
LOC: ED 16:03
DX: R07.9 Chest pain, unspecified (principal); D64.89 Other specified anemias; E11.65 Type 2 diabetes mellitus with hyperglycemia
CPT/HCPCS: 36000; 36415; 71046; 71260; 80048; 84484; 85025; 85379; 93005; 99284

== ENCOUNTER 2020-01-07 23:00 | Emergency (ER) | payer MEDICARE ==
[2020-01-07] MEDS ORDERED: BABY ASPIRIN 81 MG CHEW PO ONE (23:13)
[2020-01-07] MEDS ORDERED: Sodium Chloride 0.9% 1000 ML 1,000 ML IV STA (23:13)
[2020-01-07] MEDS ORDERED: Zofran 4 MG/2 ML VIAL IV ONE (23:15)
[2020-01-07] MEDS ORDERED: solu-MEDROL 125 MG IV ONE (23:15)
[2020-01-07] MEDS ORDERED: Zofran 4 MG/2 ML VIAL ONE (23:29)
[2020-01-07] MEDS ORDERED: BABY ASPIRIN 81 MG CHEW ONE (23:29)
[2020-01-07] MEDS ORDERED: solu-MEDROL 125 MG ONE (23:29)
[2020-01-07] MEDS ORDERED: Sodium Chloride 0.9% 1000 ML 1,000 ML ONE (23:29)
--- NOTE | 2020-01-07 23:29 | ERPHSYRPT ---
- History of Present Illness Time Seen by Provider: 01/07/20 23:03 Exam Limitations: no limitations Patient Subjective Stated Complaint: pt states her colon has been bleeding for 3 weeks- states she has been increasingly weak and has been having trouble staying awake today. states she has exertional shortness of breath Triage Nursing Assessment: pt alert and oriented, answers qustions approp. pt ambulatory with steady gait noted. pt short of breath with exertion. skin pink warm and dry. abd soft, pt reports mild tenderness with palpation. bowel sounds present x4- hyper. Physician History: Patient states that she has had a lower GI bleed for up to 3 weeks. States it is intermittently bright red stool. She states that she has no dark melena. No falls no trauma. Patient does endorse some mild shortness of breath that has been going on for a similar time period. She also feels like she is dehydrated. She feels slightly nauseous without any vomiting or diarrhea. She adamantly denies any COVID exposures. Location: lower GI bleed Quality: bright red blood Radiation: none Severity: moderate Duration: 3 weeks Timing: gradual Modifying factors/associated signs and symptoms: none tried Allergies/Adverse Reactions: cyclobenzaprine HCl [From Flexeril] Allergy (Mild, Verified 01/07/20 23:49) Rash Sulfa (Sulfonamide Antibiotics) [Sulfa(Sulfonamide Antibiotics)] Allergy (Mild, Verified 01/07/20 23:49) Rash adhesive Allergy (Verified 01/07/20 23:49) nalbuphine HCl [From Nubain] Adverse Reaction (Intermediate, Verified 01/07/20 23:49) Stomach Cramps patient states she had stomach "burning" and that her legs felt like "rubber bands" ciprofloxacin [From Cipro] Adverse Reaction (Mild, Verified 01/07/20 23:49) meperidine HCl [From Demerol] Adverse Reaction (Mild, Verified 01/07/20 23:49) Vomiting Home Medications: Duloxetine HCl 60 mg PO DAILY 03/17/16 [History] Ergocalciferol (Vitamin D2) [Vitamin D2] 50,000 unit PO Q7D 03/17/16 [History] Mesalamine [Pentasa] 500 mg PO BID 03/17/16 [History] Metformin HCl 1000 mg [Glucophage 1000 MG] 1,000 mg PO BID 03/17/16 [History] Methocarbamol 500 mg [Robaxin 500 MG] 1,000 mg PO QIDPRN PRN 03/17/16 [ History] Omeprazole 20 MG [Prilosec 20 mg] 20 mg PO BID 03/17/16 [History] Aripiprazole 10 mg [Abilify 10 MG] 2 mg PO HS 08/08/16 [History] Loperamide HCl [Anti-Diarrheal] 2 mg PO .PRN 01/08/17 [History] Primidone 50 MG [Mysoline 50Mg] 50 mg PO BID 02/05/17 [History] Atorvastatin Calcium 10 mg PO DAILY 01/25/18 [History] Alprazolam [Alprazolam ER] 0.5 mg PO TID 12/05/19 [History] Insulin Aspart Prot/Insuln Asp [Novolog Mix 70-30 Flexpen Syrn] 100 unit SQ DAILY 12/05/19 [History] Insulin Glargine,Hum.rec.anlog [Basaglar Kwikpen U-100] 100 unit SQ DAILY [History] Meclizine HCl 25 mg [Antivert 25 mg] 25 mg PO DAILY 12/05/19 [History] Hx Tetanus, Diphtheria Vaccination/Date Given: No Hx Influenza Vaccination/Date Given: No Hx Pneumococcal Vaccination/Date Given: No Immunizations Up to Date: No Travel Risk - International Travel Have you traveled outside of the country in past 3 weeks: No Have you or anyone close to you been diagnosed with or: No Do your reside in a community with a known COVID-19 case?: Yes If Yes where:: [facility] Coronavirus Screening Has patient experienced Coronavirus symptoms: No - Review of Systems Constitutional: No Fever, No Chills Eyes: No Symptoms Ears, Nose, & Throat: No Symptoms Respiratory: Dyspnea on Exertion ([place]), No Cough, No Dyspnea Cardiac: No Chest Pain, No Edema, No Syncope Abdominal/Gastrointestinal: Other (bright red blood per stool), No Abdominal Pain, No Nausea, No Vomiting, No Diarrhea Genitourinary Symptoms: No Dysuria Musculoskeletal: No Back Pain, No Neck Pain Skin: No Rash Neurological: No Dizziness, No Focal Weakness, No Sensory Changes Psychological: No Symptoms Endocrine: No Symptoms All Other Systems: Reviewed and Negative - Past Medical History Pertinent Past Medical History: Yes Neurological History: Migraines ENT History: Cataracts Cardiac History: Coronary Artery Disease, High Cholesterol, Hypertension, Myocardial Infarction ([place]) Respiratory History: Asthma, Bronchitis, COPD, Sleep Apnea Endocrine Medical History: Diabetes Type II Musculoskeletal History: Arthritis, Degenerative Disk Disease, Fibromyalgia, Osteoarthritis GI Medical History: Crohns Disease, Diverticulitis, GERD History: No Pertinent History Psycho-Social History: Anxiety, Depression Female Reproductive Disorders: No Pertinent History Other Medical History: uti, yeast infection, - Past Surgical History Past Surgical History: Yes Neuro Surgical History: No Pertinent History Cardiac: Cardiac Catheterization Respiratory: No Pertinent History Gastrointestinal: No Pertinent History Genitourinary: No Pertinent History Musculoskeletal: No Pertinent History Female Surgical History: Dilation & Curettage, Section, Tubal Ligation Other Surgical History: KIDNEY STONE REMOVAL, D&C. heart cath x3, no stents - Social History Smoking Status: Never smoker Exposure to second hand smoke: No Alcohol Use: None Drug Use: none Patient Lives Alone: No Significant Family History: diabetes, hypertension - Nursing Vital Signs Nursing Vital Signs: Initial Vital Signs Temperature 99.4 F 01/07/20 23:05 Pulse Rate 108 H 01/07/20 23:05 Respiratory Rate 22 01/07/20 23:05 Blood Pressure 174/88 01/07/20 23:05 O2 Sat by Pulse Oximetry 98 01/07/20 23:05 Pain Scale Pain Intensity 6 - Physical Exam General Appearance: no apparent distress, alert Eye Exam: PERRL/EOMI, eyes nml inspection Ears, Nose, Throat Exam: normal ENT inspection, pharynx normal, moist mucous membranes Neck Exam: normal inspection, non-tender, supple, full range of motion Respiratory Exam: normal breath sounds, lungs clear, No respiratory distress Cardiovascular Exam: regular rate/rhythm, normal heart sounds Gastrointestinal/Abdomen Exam: soft, other (No bright red blood on my rectal exam. No dark tarry stools. Rectal exam was otherwise normal. Good sphincter tone. No obvious external or internal hemorrhoids.), No tenderness, No mass Back Exam: normal inspection, normal range of motion, No CVA tenderness, No vertebral tenderness Extremity Exam: normal inspection, normal range of motion, pelvis stable Neurologic Exam: alert, oriented x 3, cooperative, normal mood/affect, nml cerebellar function, sensation nml, No motor deficits Skin Exam: normal color, warm, dry SpO2: 98 Ordered Tests: Active Orders 24 hr Category Date Time Status Cadd Instructor STAT Care 01/07/20 23:14 Active EKG-ER Only STAT Care 01/07/20 23:13 Active IV Insertion STAT Care 01/07/20 23:13 Active CHEST 1 VIEW (PORTABLE) Stat Exams 01/07/20 23:14 Taken CBC W DIFF Stat Lab 01/07/20 00:11 Completed CMP Stat Lab 01/07/20 00:11 Completed NT PRO BNP Stat Lab 01/07/20 00:11 Completed Occult Blood, Other Screening Stat Lab 01/08/20 01:05 Ordered TROPONIN Q3H Lab 01/07/20 00:11 Completed TROPONIN Q3H Lab 01/08/20 02:15 Ordered TROPONIN Q3H Lab 01/08/20 05:15 Ordered TROPONIN Q3H Lab 01/08/20 08:15 Ordered TROPONIN Q3H Lab 01/08/20 11:15 Ordered Medication Summary Discontinued Medications Generic Name Dose Route Start Last Admin Trade Name Octavioq PRN Reason Stop Dose Admin Aspirin 324 mg 01/07/20 23:13 01/07/20 23:36 Baby Aspirin 81 Mg Chew PO 01/07/20 23:14 324 mg STAT ONE Administration Aspirin Confirm 01/07/20 23:29 Baby Aspirin 81 Mg Chew Administered 01/07/20 23:30 Dose 324 mg .ROUTE .STK-MED ONE Sodium Chloride 1,000 mls @ 999 mls/hr 01/07/20 23:13 01/07/20 23:37 Sodium Chloride 0.9% 1000 Ml IV 01/08/20 00:13 999 mls/hr .Q1H1M STA Administration Sodium Chloride Confirm 01/07/20 23:29 Sodium Chloride 0.9% 1000 Ml Administered 01/07/20 23:30 Dose 1,000 mls @ ud .ROUTE .STK-MED ONE Methylprednisolone Sodium Succinate 125 mg 01/07/20 23:15 01/07/20 23:36 Solu-Medrol 125 Mg IV 01/07/20 23:16 125 mg STAT ONE Administration Methylprednisolone Sodium Succinate Confirm 01/07/20 23:29 Solu-Medrol 125 Mg Administered 01/07/20 23:30 Dose 125 mg .ROUTE .STK-MED ONE Ondansetron HCl 4 mg 01/07/20 23:15 01/07/20 23:36 Zofran 4 Mg/2 Ml Vial IV 01/07/20 23:16 4 mg STAT ONE Administration Ondansetron HCl Confirm 01/07/20 23:29 Zofran 4 Mg/2 Ml Vial Administered 01/07/20 23:30 Dose 4 mg .ROUTE .STK-MED ONE Lab/Rad Data: Laboratory Result Diagrams 01/07/20 00:11 01/07/20 00:11 Laboratory Results 01/07/20 01/07/20 01/07/20 Range/Units 00:11 00:11 00:11 WBC 6.5 (4.0-10.5) K/mm3 RBC 4.23 (4.1-5.4) M/mm3 Hgb 10.1 L (12.0-16.0) gm/dl Hct 33.4 L (35-47) % MCV 79.0 (78-100) fl MCH 23.9 L (26-32) pg MCHC 30.2 L (32-36) g/dl RDW 18.4 H (11.5-14.0) % Plt Count 259 (150-450) K/mm3 MPV 12.5 H (7.5-11.0) fl Gran % 66.9 H (36.0-66.0) % Eos # (Auto) 0.42 (0-0.5) Absolute Lymphs (auto) 1.18 (1.0-4.6) Absolute Monos (auto) 0.54 (0.0-1.3) Lymphocytes % 18.1 L (24.0-44.0) % Monocytes % 8.3 (0.0-12.0) % Eosinophils % 6.4 H (0.00-5.0) % Basophils % 0.3 (0.0-0.4) % Absolute Granulocytes 4.37 (1.4-6.9) Basophils # 0.02 (0-0.4) Sodium 136 L (137-145) mmol/L Potassium 4.4 (3.5-5.1) mmol/L Chloride 103 (98-107) mmol/L Carbon Dioxide 23 (22-30) mmol/L Anion Gap 13.5 (5-15) MEQ/L BUN 13 (7-17) mg/dL Creatinine 0.66 (0.52-1.04) mg/dL Estimated GFR > 60.0 ML/MIN Glucose 423 H (74-106) mg/dL Calcium 8.8 (8.4-10.2) mg/dL Total Bilirubin 0.30 (0.2-1.3) mg/dL AST 26 (14-36) U/L ALT 24 (0-35) U/L Alkaline Phosphatase 130 H (38-126) U/L Troponin I < 0.012 (0.000-0.034) ng/mL NT-Pro-B Natriuret Pep 133 (0-900) pg/mL Serum Total Protein 7.3 (6.3-8.2) g/dL Albumin 3.6 (3.5-5.0) g/dL Influenza Type A Ag (NEGATIVE) Influenza Type B Ag (NEGATIVE) RSV (PCR) (Negative) 01/07/20 Range/Units 00:10 WBC (4.0-10.5) K/mm3 RBC (4.1-5.4) M/mm3 Hgb (12.0-16.0) gm/dl Hct (35-47) % MCV (78-100) fl MCH (26-32) pg MCHC (32-36) g/dl RDW (11.5-14.0) % Plt Count (150-450) K/mm3 MPV (7.5-11.0) fl Gran % (36.0-66.0) % Eos # (Auto) (0-0.5) Absolute Lymphs (auto) (1.0-4.6) Absolute Monos (auto) (0.0-1.3) Lymphocytes % (24.0-44.0) % Monocytes % (0.0-12.0) % Eosinophils % (0.00-5.0) % Basophils % (0.0-0.4) % Absolute Granulocytes (1.4-6.9) Basophils # (0-0.4) Sodium (137-145) mmol/L Potassium (3.5-5.1) mmol/L Chloride (98-107) mmol/L Carbon Dioxide (22-30) mmol/L Anion Gap (5-15) MEQ/L BUN (7-17) mg/dL Creatinine (0.52-1.04) mg/dL Estimated GFR ML/MIN Glucose (74-106) mg/dL Calcium (8.4-10.2) mg/dL Total Bilirubin (0.2-1.3) mg/dL AST (14-36) U/L ALT (0-35) U/L Alkaline Phosphatase (38-126) U/L Troponin I (0.000-0.034) ng/mL NT-Pro-B Natriuret Pep (0-900) pg/mL Serum Total Protein (6.3-8.2) g/dL Albumin (3.5-5.0) g/dL Influenza Type A Ag NEGATIVE (NEGATIVE) Influenza Type B Ag NEGATIVE (NEGATIVE) RSV (PCR) NEGATIVE (Negative) - Progress Progress: improved Progress Note: 01/07/20 23:34 Differential diagnosis includes pneumonia, infection, STEMI, lower GI bleed, anemia. - We'll obtain basic labs, fluids, EKG, troponin, chest x-ray - I feel comfortable with one time negative troponin given symptoms have improved and started greater then 6 hours ago. - EKG shows no ST changes - my read. See full read below. - O2 saturations consistently greater than 95%. - CXR shows no pneumonia, pneumothorax - my read - no other obvious lab abnormalities 01/08/20 01:05 Patient feels improved with medication here. No obvious lab abnormalities. H& H is stable. Influenza swab negative. Lower suspicion for coronavirus at this time. Patient will need closer follow-up with PCP. Reexam tomorrow. Return here for any new or changing symptoms. Counseled pt/family regarding: lab results, diagnosis - Departure Departure Disposition: Home Clinical Impression: Lower gastrointestinal distress Condition: Stable Critical Care Time: No Referrals: CALVIN PALOMINO [Primary Care Provider] - Instructions: Gastrointestinal Bleeding (DC)
[2020-01-08 00:12] VITALS: O2SAT 98
[2020-01-08 00:18] LABS: Absolute Neutrophil Ct (ANC) 4.37 (1.4-6.9); BASOPHIL % 0.3 % (0.0-0.4); Basophil (Absolute #) 0.02 (0-0.4); Eosinophil % 6.4 % (0.00-5.0); Eosinophil (Absolute #) 0.42 (0-0.5); Hematocrit 33.4 % (35-47); Hemoglobin 10.1 gm/dl (12.0-16.0); Lymphocyte (Absolute #) 1.18 (1.0-4.6); Lymphocytes % 18.1 % (24.0-44.0); Mean Corpuscular Hemoglobin 23.9 pg (26-32); Mean Corpuscular Hgb Concent. 30.2 g/dl (32-36); Mean Platelet Volume 12.5 fl (7.5-11.0); Monocyte (Absolute #) 0.54 (0.0-1.3); Monocytes % 8.3 % (0.0-12.0); Neutrophil % 66.9 % (36.0-66.0); Platelet Count 259 K/mm3 (150-450); Red Blood Count 4.23 M/mm3 (4.1-5.4); Red Cell Distribution Width 18.4 % (11.5-14.0); White Blood Count 6.5 K/mm3 (4.0-10.5)
[2020-01-08 00:30] LABS: ALBUMIN 3.6 g/dL (3.5-5.0); ALKALINE PHOSPHATASE 130 U/L (38-126); ANION GAP 13.5 MEQ/L (5-15); BLOOD UREA NITROGEN 13 mg/dL (7-17); CHLORIDE 103 mmol/L (98-107); Calcium 8.8 mg/dL (8.4-10.2); Carbon Dioxide 23 mmol/L (22-30); Creatinine 1 0.66 mg/dL (0.52-1.04); Glucose 423 mg/dL (74-106); NT PRO BNP 133 pg/mL (0-900); Potassium 4.4 mmol/L (3.5-5.1); SGOT/AST 26 U/L (14-36); SGPT/ALT 24 U/L (0-35); SODIUM 136 mmol/L (137-145); Total Protein 7.3 g/dL (6.3-8.2)
[2020-01-08 00:41] LABS: INFLUENZA A NEGATIVE (NEGATIVE); INFLUENZA B NEGATIVE (NEGATIVE); RESPIRATORY SYNCTIAL VIRUS NEGATIVE (Negative)
[2020-01-08 01:06] VITALS: BP 129/77; PULSE 87
[2020-01-08 02:02] LABS: Slide Review 1 YES
--- NOTE | 2020-01-08 07:57 | XRAY ---
Indication: Pneumonia. Comparison: December 05, 2019. Portable chest less inflated and remains clear. Heart is not enlarged for AP portable technique. No new/acute findings.
== END 2020-01-08 01:12 | disposition home or self-care (01) ==
LOC: ED 23:00
DX: K30 Functional dyspepsia (principal); I10 Essential (primary) hypertension
CPT/HCPCS: 36000; 36415; 71045; 80053; 82272; 83880; 84484; 85025; 87631; 93005; 93041; 96374; 96375; 99284; J2405; J2930; A9270-GY

== ENCOUNTER 2020-08-02 03:25 | Observation (INO) | payer MEDICARE ==
--- NOTE | 2020-08-02 04:02 | ERPHSYRPT ---
- History of Present Illness Historian: patient, EMS Exam Limitations: no limitations Patient Subjective Stated Complaint: pt states she has had high blood sugar at home- was reading high. took 60 units of novolog at home at approx 1800 and night time insulin 55 units at approx 2300 Triage Nursing Assessment: pt arrive per ambulance, ambulates from ems cot into bathroom and to room. steady gait noted. pt short of breath with exertion. skin warm and dry. heart rate 91 on monitor, sinus rhythm at this time Physician History: 60 yo wf w mid-sternal chest pain wo radiation x 3 hours. Pt took 2SL NTG w improvement in pain from 6 to 4. Pain accompanied w Nausea/Dyspnea wo vomiting/diaphoresis. She has a h/o [place]/DM/Hyperlipidemia/HTN but does not smoke. EMS gave ASA. Timing/Duration: other (3Hr) Quality: sharpness Location: substernal Chest Pain Radiation: no radiation Severity of Pain-Max: moderate Severity of Pain-Current: moderate Modifying Factors: Improves With: nitroglycerin Associated Symptoms: nausea, shortness of breath, No vomiting, No palpitations, No heartburn, No abdominal pain, No cough, No hurts to breathe, No diaphoresis, No chills, No fever, No fatigue, No weakness, No swelling/lump in chest, No syncope, No rash, No headache, No dizziness, No edema, No back pain Prior Chest Pain/Cardiac Workup: heart attack Nitro Today/Relief: 0.4 mg x 2 Aspirin Treatment Today: 81 mg x 4 Allergies/Adverse Reactions: cyclobenzaprine HCl [From Flexeril] Allergy (Mild, Verified 08/02/20 03:43) Rash metoclopramide [From Reglan] Allergy (Mild, Verified 08/02/20 03:43) Rash Sulfa (Sulfonamide Antibiotics) [Sulfa(Sulfonamide Antibiotics)] Allergy (Mild, Verified 08/02/20 03:43) Rash adhesive Allergy (Verified 08/02/20 03:43) nalbuphine HCl [From Nubain] Adverse Reaction (Intermediate, Verified 08/02/20 03:43) Stomach Cramps patient states she had stomach "burning" and that her legs felt like "rubber bands" ciprofloxacin [From Cipro] Adverse Reaction (Mild, Verified 08/02/20 03:43) meperidine HCl [From Demerol] Adverse Reaction (Mild, Verified 08/02/20 03:43) Vomiting Home Medications: Duloxetine HCl 60 mg PO DAILY 03/17/16 [History] Ergocalciferol (Vitamin D2) [Vitamin D2] 50,000 unit PO Q7D 03/17/16 [History] Mesalamine [Pentasa] 500 mg PO BID 03/17/16 [History] Metformin HCl 1000 mg [Glucophage 1000 MG] 1,000 mg PO BID 03/17/16 [History] Methocarbamol 500 mg [Robaxin 500 MG] 1,000 mg PO QIDPRN PRN 03/17/16 [History] Omeprazole 20 MG [Prilosec 20 mg] 20 mg PO BID 03/17/16 [History] Aripiprazole 10 mg [Abilify 10 MG] 2 mg PO HS 08/08/16 [History] Loperamide HCl [Anti-Diarrheal] 2 mg PO .PRN PRN 01/08/17 [History] Primidone 50 MG [Mysoline 50Mg] 50 mg PO BID 02/05/17 [History] Atorvastatin Calcium 10 mg PO DAILY 01/25/18 [History] Alprazolam [Alprazolam ER] 0.5 mg PO TIDPRN 12/05/19 [History] Insulin Glargine,Hum.rec.anlog [Basaglar Kwikpen U-100] 55 unit SQ HS 12/05/19 [History] Meclizine HCl 25 mg [Antivert 25 mg] 25 mg PO DAILY PRN 12/05/19 [History] Insulin Aspart [Novolog] 32 unit SQ TID 08/02/20 [History] Hx Tetanus, Diphtheria Vaccination/Date Given: No Hx Influenza Vaccination/Date Given: No Hx Pneumococcal Vaccination/Date Given: No Immunizations Up to Date: No Travel Risk - International Travel Have you traveled outside of the country in past 3 weeks: No - Coronavirus Screening Are you exhibiting any of the following symptoms?: No Close contact with a COVID-19 positive Pt in past 14-21 Days: No - Review of Systems Constitutional: No Symptoms Eyes: No Symptoms Ears, Nose, & Throat: No Symptoms Respiratory: No Symptoms, Dyspnea Cardiac: No Symptoms, Chest Pain Abdominal/Gastrointestinal: No Symptoms, Nausea Genitourinary Symptoms: No Symptoms Musculoskeletal: No Symptoms Skin: No Symptoms Neurological: No Symptoms Psychological: No Symptoms Endocrine: No Symptoms Hematologic/Lymphatic: No Symptoms Immunological/Allergic: No Symptoms - Past Medical History Pertinent Past Medical History: Yes Neurological History: Migraines ENT History: Cataracts Cardiac History: Coronary Artery Disease, High Cholesterol, Hypertension, Myocardial Infarction ([place]) Respiratory History: Asthma, Bronchitis, COPD, Sleep Apnea Endocrine Medical History: Diabetes Type II Musculoskeletal History: Arthritis, Degenerative Disk Disease, Fibromyalgia, Osteoarthritis GI Medical History: Crohns Disease, Diverticulitis, GERD History: No Pertinent History Psycho-Social History: Anxiety, Depression Female Reproductive Disorders: No Pertinent History Other Medical History: uti, yeast infection, - Past Surgical History Past Surgical History: Yes Neuro Surgical History: No Pertinent History Cardiac: Cardiac Catheterization Respiratory: No Pertinent History Gastrointestinal: No Pertinent History Genitourinary: No Pertinent History Musculoskeletal: No Pertinent History Female Surgical History: Dilation & Curettage, Section, Tubal Ligation Other Surgical History: KIDNEY STONE REMOVAL, D&C. heart cath x3, no stents - Social History Smoking Status: Never smoker Exposure to second hand smoke: No Alcohol Use: None Drug Use: none Patient Lives Alone: No Significant Family History: diabetes, hypertension - Nursing Vital Signs Nursing Vital Signs: Initial Vital Signs Temperature 98.3 F 08/02/20 03:28 Pulse Rate 91 H 08/02/20 03:28 Respiratory Rate 24 08/02/20 03:28 Blood Pressure 148/92 08/02/20 03:28 O2 Sat by Pulse Oximetry 97 08/02/20 03:28 Pain Scale Pain Intensity 3 - Physical Exam General Appearance: no apparent distress Eye Exam: PERRL/EOMI Ears, Nose, Throat Exam: normal ENT inspection, TMs normal, pharynx normal, moist mucous membranes Neck Exam: normal inspection Respiratory Exam: normal breath sounds, lungs clear, airway intact, No respiratory distress Cardiovascular Exam: regular rate/rhythm, normal heart sounds, No murmur Gastrointestinal/Abdomen Exam: soft, normal bowel sounds Back Exam: normal inspection, normal range of motion Extremity Exam: normal inspection, normal range of motion Neurologic Exam: alert, oriented x 3, cooperative, head worker II-XII nml as tested, normal mood/affect, sensation nml, No motor deficits, No sensory deficit Skin Exam: normal color, warm, dry, No rash Lymphatic Exam: No adenopathy SpO2 Interpretation: normal SpO2: 97 O2 Delivery: Room Air - Course EKG Interpreted by Me: RATE (NSR/R89/Normal QT-QTc/low voltage due to morbid obesity) Ordered Tests: Medication Summary Discontinued Medications Generic Name Dose Route Start Last Admin Trade Name Freq PRN Reason Stop Dose Admin Acetaminophen 650 mg 08/02/20 05:25 Tylenol 325 Mg PO 09/01/20 05:24 Q4H PRN PRN PAIN AND/OR FEVER Al Hydrox/Mg Hydrox/Simethicone 30 ml 08/02/20 05:25 08/02/20 06:02 Maalox Es 30 Ml Unit Dose PO 09/01/20 05:24 30 ml Q4H PRN PRN Administration INDIGESTION Al Hydrox/Mg Hydrox/Simethicone Confirm 08/02/20 06:01 Maalox Es 30 Ml Unit Dose Administered 08/02/20 06:02 Dose 30 ml .ROUTE .STK-MED ONE Alprazolam 0.5 mg 08/02/20 09:53 Xanax 0.5 Mg PO 09/01/20 09:52 TIDPRN PRN Aripiprazole 2.5 mg 08/02/20 22:00 Abilify 10 Mg PO 09/01/20 21:59 HS MITCH Aspirin 325 mg 08/02/20 10:00 08/02/20 09:25 Ecotrin 325 Mg PO 09/01/20 09:59 325 mg DAILY MITCH Administration Duloxetine HCl 60 mg 08/02/20 10:00 08/02/20 12:57 Cymbalta 30 Mg Capsule PO 09/01/20 09:59 60 mg DAILY MITCH Administration Enoxaparin Sodium 40 mg 08/02/20 10:00 08/02/20 09:25 Enoxaparin Sodium SQ 09/01/20 09:59 40 mg DAILY MITCH Administration Ergocalciferol 50,000 unit 08/04/20 10:00 Vitamin D2 PO 09/03/20 09:59 Q7D MITCH Sodium Chloride 1,000 mls @ 50 mls/hr 08/02/20 09:00 08/02/20 12:57 Sodium Chloride 0.45% 1000 Ml IV 09/01/20 08:59 50 mls/hr .Q20H MITCH Administration Insulin Glargine 55 unit 08/02/20 22:00 Lantus Insulin SQ 09/01/20 21:59 HS MITCH Insulin Human Lispro 0 unit 08/02/20 05:25 Humalog SQ 09/01/20 05:24 UD PRN HYPERGLYCEMIA Insulin Human Lispro 0 unit 08/02/20 08:54 08/02/20 09:25 Humalog SQ 09/01/20 08:53 2 unit UD PRN Administration HYPERGLYCEMIA Insulin Human Lispro 32 unit 08/02/20 12:00 08/02/20 12:59 Humalog SQ 09/01/20 11:59 32 unit TIDWM MITCH Administration Insulin Human Regular 10 unit 08/02/20 05:01 08/02/20 05:12 Humulin R SQ 08/02/20 05:02 10 unit STAT ONE Administration Insulin Human Regular Confirm 08/02/20 05:09 Humulin R Administered 08/02/20 05:10 Dose 10 unit .ROUTE .STK-MED ONE Isosorbide Mononitrate 60 mg 08/02/20 08:46 08/02/20 12:26 Imdur 60mg PO 09/01/20 08:45 Not Given BID MITCH Loperamide HCl 2 mg 08/02/20 09:42 Imodium 2 Mg PO 09/01/20 09:41 .PRN PRN DIARRHEA Lorazepam 0.5 mg 08/02/20 12:39 08/02/20 12:59 Ativan 0.5 Mg PO 08/02/20 12:40 0.5 mg ONCE ONE Administration Magnesium Hydroxide 30 - 60 ml 08/02/20 05:25 Milk Of Magnesia 30 Ml PO 09/01/20 05:24 QDP PRN CONSTIPATION Magnesium Oxide 800 mg 08/02/20 05:02 08/02/20 05:06 Mag-Ox 400 PO 08/02/20 05:03 800 mg ONCE STA Administration Magnesium Oxide Confirm 08/02/20 05:05 Mag-Ox 400 Administered 08/02/20 05:06 Dose 800 mg .ROUTE .STK-MED ONE Metformin HCl 1,000 mg 08/02/20 10:00 08/02/20 12:57 Glucophage 500 Mg PO 09/01/20 09:59 1,000 mg BIDWM MITCH Administration Methocarbamol 1,000 mg 08/02/20 09:42 Robaxin 500 Mg PO 09/01/20 09:41 QIDPRN PRN PAIN Miscellaneous Information 1 each 08/02/20 10:15 Medication Intervention PO 09/01/20 10:14 .RN TO CHECK ON MITCH Nitroglycerin 1 gm 08/02/20 05:31 08/02/20 05:36 Nitro-Bid 2% Ud Packets TOP 08/02/20 05:32 1 gm STAT ONE Administration Nitroglycerin Confirm 08/02/20 05:33 Nitro-Bid 2% Ud Packets Administered 08/02/20 05:34 Dose 1 gm .ROUTE .STK-MED ONE Ondansetron HCl 4 mg 08/02/20 05:25 Zofran 4 Mg/2 Ml Vial IV 09/01/20 05:24 Q4H PRN PRN NAUSEA/VOMITING Pantoprazole Sodium 40 mg 08/02/20 04:37 08/02/20 04:40 Protonix 40 Mg Iv IV 08/02/20 04:38 40 mg STAT ONE Administration Pantoprazole Sodium Confirm 08/02/20 04:37 Protonix 40 Mg Iv Administered 08/02/20 04:38 Dose 40 mg IV .STK-MED ONE Primidone 50 mg 08/02/20 10:00 08/02/20 12:59 Mysoline 50mg PO 09/01/20 09:59 50 mg BID MITCH Administration Senna/Docusate Sodium 2 udtab 08/02/20 05:25 Senokot-S Tablet PO 09/01/20 05:24 BID PRN PRN CONSTIPATION Simvastatin 10 mg 08/02/20 10:00 08/02/20 12:59 Zocor 10mg PO 09/01/20 09:59 10 mg DAILY MITCH Administration Lab/Rad Data: Laboratory Result Diagrams 08/02/20 04:35 08/02/20 04:35 Laboratory Results 08/02/20 08/02/20 08/02/20 Range/Units 04:35 04:35 04:35 WBC (4.0-10.5) K/mm3 RBC (4.1-5.4) M/mm3 Hgb (12.0-16.0) gm/dl Hct (35-47) % MCV (78-100) fl MCH (26-32) pg MCHC (32-36) g/dl RDW (11.5-14.0) % Plt Count (150-450) K/mm3 Gran % (36.0-66.0) % Eos # (Auto) (0-0.5) Absolute Lymphs (auto) (1.0-4.6) Absolute Monos (auto) (0.0-1.3) Lymphocytes % (24.0-44.0) % Monocytes % (0.0-12.0) % Eosinophils % (0.00-5.0) % Basophils % (0.0-0.4) % Absolute Granulocytes (1.4-6.9) Basophils # (0-0.4) PT 13.3 H (9.95-12.35) SECONDS INR 1.18 (0.8-3.0) APTT 24.9 L (25.3-37.0) SECONDS Sodium 136 L (137-145) mmol/L Potassium 4.4 (3.5-5.1) mmol/L Chloride 102 (98-107) mmol/L Carbon Dioxide 29 (22-30) mmol/L Anion Gap 9.0 (5-15) MEQ/L BUN 16 (7-17) mg/dL Creatinine 0.70 (0.52-1.04) mg/dL Estimated GFR > 60.0 ML/MIN Glucose 345 H (74-106) mg/dL Calcium 9.3 (8.4-10.2) mg/dL Magnesium 1.5 L (1.6-2.3) mg/dL Total Bilirubin 0.30 (0.2-1.3) mg/dL AST 33 (14-36) U/L ALT 27 (0-35) U/L Alkaline Phosphatase 121 (38-126) U/L Troponin I < 0.012 (0.000-0.034) ng/mL Serum Total Protein 7.0 (6.3-8.2) g/dL Albumin 3.7 (3.5-5.0) g/dL Slides for Path Review 10/23/20 Range/Units 04:35 WBC 9.0 (4.0-10.5) K/mm3 RBC 4.34 (4.1-5.4) M/mm3 Hgb 9.5 L (12.0-16.0) gm/dl Hct 33.3 L (35-47) % MCV 76.7 L (78-100) fl MCH 21.9 L (26-32) pg MCHC 28.5 L (32-36) g/dl RDW 19.0 H (11.5-14.0) % Plt Count 213 (150-450) K/mm3 Gran % 71.5 H (36.0-66.0) % Eos # (Auto) 0.33 (0-0.5) Absolute Lymphs (auto) 1.60 (1.0-4.6) Absolute Monos (auto) 0.60 (0.0-1.3) Lymphocytes % 17.8 L (24.0-44.0) % Monocytes % 6.7 (0.0-12.0) % Eosinophils % 3.7 (0.00-5.0) % Basophils % 0.3 (0.0-0.4) % Absolute Granulocytes 6.44 (1.4-6.9) Basophils # 0.03 (0-0.4) PT (9.95-12.35) SECONDS INR (0.8-3.0) APTT (25.3-37.0) SECONDS Sodium (137-145) mmol/L Potassium (3.5-5.1) mmol/L Chloride (98-107) mmol/L Carbon Dioxide (22-30) mmol/L Anion Gap (5-15) MEQ/L BUN (7-17) mg/dL Creatinine (0.52-1.04) mg/dL Estimated GFR ML/MIN Glucose (74-106) mg/dL Calcium (8.4-10.2) mg/dL Magnesium (1.6-2.3) mg/dL Total Bilirubin (0.2-1.3) mg/dL AST (14-36) U/L ALT (0-35) U/L Alkaline Phosphatase (38-126) U/L Troponin I (0.000-0.034) ng/mL Serum Total Protein (6.3-8.2) g/dL Albumin (3.5-5.0) g/dL Slides for Path Review YES - Progress Progress: improved Progress Note: 08/02/20 05:29 Pt's pain improved during ER stay. Admit per Dr. Holguin Discussed with : Baudilio Will see patient in: hospital (observation) - Departure Departure Disposition: Observation Clinical Impression: Chest pain, Hyperglycemia due to type 2 diabetes mellitus Condition: Stable Critical Care Time: No
[2020-08-02] MEDS ORDERED: PROTONIX 40 MG IV IV ONE ×2 (04:37)
[2020-08-02 04:38] LABS: Absolute Neutrophil Ct (ANC) 6.44 (1.4-6.9); BASOPHIL % 0.3 % (0.0-0.4); Basophil (Absolute #) 0.03 (0-0.4); Eosinophil % 3.7 % (0.00-5.0); Eosinophil (Absolute #) 0.33 (0-0.5); Hematocrit 33.3 % (35-47); Hemoglobin 9.5 gm/dl (12.0-16.0); Lymphocytes % 17.8 % (24.0-44.0); Mean Cell Volume 76.7 fl (78-100); Mean Corpuscular Hemoglobin 21.9 pg (26-32); Mean Corpuscular Hgb Concent. 28.5 g/dl (32-36); Monocytes % 6.7 % (0.0-12.0); Neutrophil % 71.5 % (36.0-66.0); Platelet Count 213 K/mm3 (150-450); Red Blood Count 4.34 M/mm3 (4.1-5.4)
[2020-08-02 04:45] LABS: INR 1.18 (0.8-3.0); PROTIME 13.3 SECONDS (9.95-12.35)
[2020-08-02 04:47] LABS: PTT 24.9 SECONDS (25.3-37.0)
[2020-08-02 04:49] LABS: ALBUMIN 3.7 g/dL (3.5-5.0); ALKALINE PHOSPHATASE 121 U/L (38-126); BLOOD UREA NITROGEN 16 mg/dL (7-17); CHLORIDE 102 mmol/L (98-107); Calcium 9.3 mg/dL (8.4-10.2); Carbon Dioxide 29 mmol/L (22-30); EST GLOMERULAR FILTRATION RATE > 60.0 ML/MIN; Glucose 345 mg/dL (74-106); MAGNESIUM 1.5 mg/dL (1.6-2.3); Potassium 4.4 mmol/L (3.5-5.1); SGOT/AST 33 U/L (14-36); SGPT/ALT 27 U/L (0-35); SODIUM 136 mmol/L (137-145)
[2020-08-02] MEDS ORDERED: HUMULIN R SQ ONE (05:01)
[2020-08-02] MEDS ORDERED: MAG-OX 400 PO STA (05:02)
[2020-08-02] MEDS ORDERED: MAG-OX 400 ONE (05:05)
[2020-08-02] MEDS ORDERED: HUMULIN R ONE (05:09)
[2020-08-02] MEDS ORDERED: HUMALOG SQ PRN ×2 (05:25→08:54)
[2020-08-02] MEDS ORDERED: Senokot-S Tablet PO PRN (05:25)
[2020-08-02] MEDS ORDERED: MAALOX ES 30 ML UNIT DOSE PO PRN (05:25)
[2020-08-02] MEDS ORDERED: TYLENOL 325 MG PO PRN (05:25)
[2020-08-02] MEDS ORDERED: Zofran 4 MG/2 ML VIAL IV PRN (05:25)
[2020-08-02] MEDS ORDERED: MILK OF MAGNESIA 30 ML PO PRN (05:25)
[2020-08-02] MEDS ORDERED: NITRO-BID 2% UD PACKETS TOP ONE (05:31)
[2020-08-02] MEDS ORDERED: NITRO-BID 2% UD PACKETS ONE (05:33)
[2020-08-02] MEDS ORDERED: MAALOX ES 30 ML UNIT DOSE ONE (06:01)
[2020-08-02 08:29] LABS: Slide Review 1 YES
--- NOTE | 2020-08-02 09:14 | HP ---
CHIEF COMPLAINT: Chest pain. HISTORY OF PRESENT ILLNESS: The patient is a 60 year old white female who reports that she has been having trouble with sugars recently. Last evening she had sugar that was too high to measure. She has the [employer] to check them frequently and noted that she took 60 units of insulin, Humalog in addition to her Basaglar at night and by the time she reached the emergency room her sugars were coming down and by this morning they were down to 200. The patient however had complained of chest discomfort, heartburn and pain at level of 6 on a scale of 1 to 10. She reports she took Nitro which did resolve her pain. She presented herself to the emergency room at which time she reported she was having discomfort of about 4 on a scale of 1 to 10 and feels more like a pressure on her chest. The patient does see Dr. Selby and had heart cath in the last couple of years but apparently from what she said was okay. There was no specific mentioning of how her arteries looked otherwise. PAST MEDICAL/SURGICAL HISTORY: The patient has a long history of ulcerative colitis and diabetes mellitus. She is morbidly obese. HOME MEDICATIONS: Currently include duloxetine 60 mg a day, vitamin D 50,000 units once a week, Pentasa 500 mg b.i.d., Metformin 1,000 mg b.i.d., Robaxin 500 mg four times a day as needed for back pain, omeprazole 20 mg b.i.d., aripiprazole 2 mg at night, Lomotil 2 mg PRN for diarrhea, Primidone 50 mg b.i.d., Atorvastatin 10 mg a day, Alprazolam Extended Release 0.5 mg t.i.d., meclizine 25 mg b.i.d., NovoLog 32 units three times a day. ALLERGIES: REGLAN. SULFA. NUBAIN. CIPRO. DEMEROL. CYCLOBENZAPRINE. PHYSICAL EXAMINATION: The patient's vital signs initially in the emergency room showed temperature 98.3F, pulse 91, respiratory rate 24 and blood pressure 148/92. O2 saturation 97%. HEENT: Normocephalic, atraumatic. Pupils equal round reactive to light. Extraocular movements intact. Oropharynx is pink and moist. NECK: Supple without lymphadenopathy, thyromegaly or JVD. CHEST: Clear to auscultation with good air movement bilaterally. HEART: Regular rate and rhythm without murmurs. ABDOMEN: Soft. No palpable masses. EXTREMITIES: Without cyanosis, clubbing or edema. NEUROLOGIC: The patient is alert and oriented x3. LAB DATA AND TESTS: The patient did receive Protonix IV in the emergency room and had been placed on some Nitro paste. The patient's white count was 9,000. Her hemoglobin 9.5, PLT count 213,000. It was noted that the patient's hemoglobin has been falling somewhat over the past several times that she has been checked although she does take aspirin and has history of colitis. Her sugar in the emergency room was 345, BUN 16, creatinine 0.7. Liver enzymes were normal. Electrolytes were normal. Troponin less than 0.012. Her EKG showed no specific ST-T wave changes concerning for ischemia. ASSESSMENT: The patient has been admitted to the hospital for serial troponins. She has been placed on Nitro paste. We will give her Imdur 60 mg b.i.d. which the patient reports that she has taken at home but is not currently on her medicine list. If the patient's troponins begin rising, we will send her to her database software technician, Dr. Selby, in [place] for further evaluation and management. Otherwise, we will control her sugars with sliding scale coverage and continue her usual use of home medications otherwise.
--- NOTE | 2020-08-02 09:17 | XRAY ---
Indication: Chest pain. Comparison: January 07, 2020. Portable chest remains clear and heart is upper limits normal for AP portable technique. Bony thorax intact again with mild degenerative changes. No new/acute findings.
[2020-08-02] MEDS: Imdur 60MG PO SCH ×2 (09:25→12:26)
[2020-08-02] MEDS ORDERED: Robaxin 500 MG PO PRN (09:42)
[2020-08-02] MEDS ORDERED: IMODIUM 2 MG PO PRN (09:42)
[2020-08-02] MEDS ORDERED: ALPRAZOLAM 0.5 MG PO SCH (09:45)
[2020-08-02] MEDS ORDERED: xanAX 0.5 MG PO PRN (09:53)
[2020-08-02] MEDS ORDERED: Zocor 10MG PO SCH (10:00)
[2020-08-02] MEDS ORDERED: Ecotrin 325 MG PO SCH (10:00)
[2020-08-02] MEDS ORDERED: NON-FORMULARY ITEM (Duloxetine Hcl [Duloxetine Hcl] 60 MG) PO SCH (10:00)
[2020-08-02] MEDS ORDERED: ENOXAPARIN SODIUM SQ SCH (10:00)
[2020-08-02] MEDS ORDERED: MYSOLINE 50MG PO SCH (10:00)
[2020-08-02] MEDS ORDERED: MESALAMINE 500 MG PO SCH (10:00)
[2020-08-02] MEDS ORDERED: INSULIN ASPART 32 UNIT SQ SCH (10:00)
[2020-08-02] MEDS ORDERED: NON-FORMULARY ITEM (Metformin Hcl 1000 Mg [Glucophage 1000 Mg] 1,000 MG) PO SCH (10:00)
[2020-08-02] MEDS ORDERED: Cymbalta 30 MG Capsule PO SCH (10:00)
[2020-08-02] MEDS ORDERED: Glucophage 500 MG PO SCH (10:00)
[2020-08-02] MEDS ORDERED: MEDICATION INTERVENTION PO SCH (10:15)
[2020-08-02] MEDS ORDERED: HUMALOG SQ SCH (12:00)
[2020-08-02 12:06] VITALS: BP 133/69; PULSE 88
[2020-08-02] MEDS ORDERED: Ativan 0.5 MG PO ONE (12:39)
[2020-08-02] MEDS ORDERED: INSULIN GLARGINE HUM REC ANLOG 55 UNIT SQ SCH (22:00)
[2020-08-02] MEDS ORDERED: Lantus Insulin SQ SCH (22:00)
[2020-08-02] MEDS ORDERED: Abilify 10 MG PO SCH (22:00)
[2020-08-04] MEDS ORDERED: VITAMIN D2 PO SCH (10:00)
[2020-08-06 07:30] VITALS: O2SAT 97
== END 2020-08-02 17:25 | disposition home or self-care (01) ==
LOC: ED 03:25 → MED SURG 05:41
PROVIDERS: ADMIT Family Medicine; ATTEND Family Medicine
DX: I20.0 Unstable angina (principal); E11.9 Type 2 diabetes mellitus without complications; Z79.899 Other long term (current) drug therapy
CPT/HCPCS: 36000; 36415; 71045; 80053; 82962; 83735; 84484; 85025; 85610; 85730; 93005; 93268; 96372; 96374; 99285; J1650; J1815; J1817; A9270-GY; G0378

== ENCOUNTER 2020-12-31 06:07 | Emergency (ER) | payer MEDICARE ==
--- NOTE | 2020-12-31 06:57 | ERPHSYRPT ---
- History of Present Illness Historian: patient Exam Limitations: no limitations Patient Subjective Stated Complaint: . Triage Nursing Assessment: . Timing/Duration: day(s) (1 day) Activities at Onset: rest Quality: aching Abdominal Pain Onset Location: periumbilical, generalized abdomen Severity of Pain-Max: mild Severity of Pain-Current: mild Modifying Factors: Improves With: nothing Associated Symptoms: diarrhea, nausea, No back, No chest pain, No diaphoresis, No fever/chills, No fatigue, No headache, No heartburn, No loss of appetite, No neck pain, No rash, No shortness of breath, No syncope, No vomiting, No weakness Previous symptoms: same symptoms as today Hx Tetanus, Diphtheria Vaccination/Date Given: No Hx Influenza Vaccination/Date Given: No Hx Pneumococcal Vaccination/Date Given: No Immunizations Up to Date: Yes <CHANDAN FREEDMAN - Last Filed: 12/31/20 06:52> <JASON WHITING - Last Filed: 12/31/20 09:26> - History of Present Illness Time Seen by Provider: 12/31/20 07:10 Physician History: 60 yo wf w periumbilical abdominal pain x 1day which is rated a 3 and described as an ache. Pt has a h/o Crohn's Dz and believes this to be a flare. Pain has only been up to a 5 and nothing makes better or worse. She has had nausea/diarrhea/hematochezia wo vomiting/melena/dysuria/hematuria/fever. Pt is not on Remicade or other immuno-modulating drugs at this time. (CHANDAN FREEDMAN) Allergies/Adverse Reactions: cyclobenzaprine HCl [From Flexeril] Allergy (Mild, Verified 08/02/20 03:43) Rash metoclopramide [From Reglan] Allergy (Mild, Verified 08/02/20 03:43) Rash Sulfa (Sulfonamide Antibiotics) [Sulfa(Sulfonamide Antibiotics)] Allergy (Mild, Verified 08/02/20 03:43) Rash adhesive Allergy (Verified 08/02/20 03:43) nalbuphine HCl [From Nubain] Adverse Reaction (Intermediate, Verified 08/02/20 03:43) Stomach Cramps patient states she had stomach "burning" and that her legs felt like "rubber bands" ciprofloxacin [From Cipro] Adverse Reaction (Mild, Verified 08/02/20 03:43) meperidine HCl [From Demerol] Adverse Reaction (Mild, Verified 08/02/20 03:43) Vomiting Home Medications: Duloxetine HCl 60 mg PO DAILY 03/17/16 [History] Ergocalciferol (Vitamin D2) [Vitamin D2] 50,000 unit PO Q7D 03/17/16 [History] Mesalamine [Pentasa] 500 mg PO BID 03/17/16 [History] Metformin HCl 1000 mg [Glucophage 1000 MG] 1,000 mg PO BID 03/17/16 [History] Methocarbamol 500 mg [Robaxin 500 MG] 1,000 mg PO QIDPRN PRN 03/17/16 [History] Omeprazole 20 MG [Prilosec 20 mg] 20 mg PO BID 03/17/16 [History] Aripiprazole 10 mg [Abilify 10 MG] 2 mg PO HS 08/08/16 [History] Loperamide HCl [Anti-Diarrheal] 2 mg PO .PRN PRN 01/08/17 [History] Atorvastatin Calcium 10 mg PO DAILY 01/25/18 [History] Insulin Glargine,Hum.rec.anlog [Basaglar Kwikpen U-100] 38 unit SQ HS 12/05/19 [History] Meclizine HCl 25 mg [Antivert 25 mg] 25 mg PO DAILY PRN 12/05/19 [History] Insulin Aspart [Novolog] 36 unit SQ AC 08/02/20 [History] Isosorbide Mononitrate 60 mg [Imdur 60MG] 120 mg PO DAILY 12/31/20 [History] Levothyroxine Sodium 25 Mcg [Synthroid 25 Mcg] 25 mcg PO DAILY 12/31/20 [History] Metoprolol Succinate 100 mg [Toprol Xl 100 MG] 100 mg PO DAILY 12/31/20 [History] Travel Risk - International Travel Have you traveled outside of the country in past 3 weeks: No - Coronavirus Screening Are you exhibiting any of the following symptoms?: No Close contact with a COVID-19 positive Pt in past 14-21 Days: No <CHANDAN FREEDMAN - Last Filed: 12/31/20 06:52> - Review of Systems Constitutional: No Symptoms Eyes: No Symptoms Ears, Nose, & Throat: No Symptoms Respiratory: No Symptoms Cardiac: No Symptoms Abdominal/Gastrointestinal: Abdominal Pain, Nausea, Diarrhea, Hematochezia, No Vomiting, No Constipation, No Hematemesis, No Melena, No Dysphagia, No Appetite Changes Genitourinary Symptoms: No Symptoms Musculoskeletal: No Symptoms Skin: No Symptoms Neurological: No Symptoms Psychological: No Symptoms Endocrine: No Symptoms Hematologic/Lymphatic: No Symptoms Immunological/Allergic: No Symptoms <TANOCHANDAN - Last Filed: 12/31/20 06:52> - Past Medical History Pertinent Past Medical History: Yes Neurological History: Migraines ENT History: Cataracts Cardiac History: Coronary Artery Disease, High Cholesterol, Hypertension, Myocardial Infarction ([place]) Respiratory History: Asthma, Bronchitis, COPD, Sleep Apnea Endocrine Medical History: Diabetes Type II Musculoskeletal History: Arthritis, Degenerative Disk Disease, Fibromyalgia, Osteoarthritis GI Medical History: Crohns Disease, Diverticulitis, GERD History: No Pertinent History Psycho-Social History: Anxiety, Depression Female Reproductive Disorders: No Pertinent History Other Medical History: uti, yeast infection, neuropathy - Past Surgical History Past Surgical History: Yes Neuro Surgical History: No Pertinent History Cardiac: Cardiac Catheterization Respiratory: No Pertinent History Gastrointestinal: No Pertinent History Genitourinary: No Pertinent History Musculoskeletal: No Pertinent History Female Surgical History: Dilation & Curettage, Section, Tubal Ligation Other Surgical History: KIDNEY STONE REMOVAL, D&C. heart cath x3, no stents - Social History Smoking Status: Never smoker Exposure to second hand smoke: No Alcohol Use: None Drug Use: none Patient Lives Alone: Yes Significant Family History: diabetes, hypertension <CHANDAN FREEDMAN - Last Filed: 12/31/20 06:52> - Physical Exam General Appearance: no apparent distress Eye Exam: PERRL/EOMI, eyes nml inspection Ears, Nose, Throat Exam: normal ENT inspection, TMs normal, pharynx normal, moist mucous membranes Neck Exam: normal inspection, non-tender, supple, full range of motion, No meningismus, No mass, No Brudzinski, No Kernig's Respiratory Exam: normal breath sounds, lungs clear, airway intact, No respiratory distress Cardiovascular Exam: tachycardia (Mild wo murmur) Gastrointestinal/Abdomen Exam: soft, normal bowel sounds, tenderness (Mild diffuse wo guarding/rebound) Back Exam: normal inspection, normal range of motion, CVA tenderness Extremity Exam: normal inspection, normal range of motion Neurologic Exam: alert, oriented x 3, cooperative, 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, normal mood/affect, nml station & gait, sensation nml, No motor deficits, No sensory deficit Skin Exam: normal color, warm, dry, No rash Lymphatic Exam: No adenopathy SpO2 Interpretation: normal SpO2: 98 O2 Delivery: Room Air <CHANDAN FREEDMAN - Last Filed: 12/31/20 06:52> - Nursing Vital Signs Nursing Vital Signs: Initial Vital Signs Temperature 97.7 F 12/31/20 06:13 Pulse Rate 114 H 12/31/20 06:13 Respiratory Rate 22 12/31/20 06:13 Blood Pressure 208/104 12/31/20 06:13 O2 Sat by Pulse Oximetry 98 12/31/20 06:13 Pain Scale Pain Intensity 2 - Course Nursing assessment & vital signs reviewed: Yes - CT Exams Abdomen/Pelvis CT Interpretation: Tele-radiologist Report (CAT scan abdomen pelvis reveals bilateral renal cysts. There is an enlarging cyst of the left currently 3.6 cm previously 2.3 cm. New 1.2 cm right lower pole renal cyst remaining CT abdomen pelvis with contrast exam is negative) <JASON WHITING - Last Filed: 12/31/20 09:26> Ordered Tests: Active Orders 24 hr Category Date Time Status ABDOMEN AND PELVIS W CONTRAST [CT] Stat Exams 12/31/20 07:30 Completed AMYLASE Stat Lab 12/31/20 06:25 Completed CBC W DIFF Stat Lab 12/31/20 06:25 Completed CMP Stat Lab 12/31/20 06:25 Completed CULTURE,URINE Stat Lab 12/31/20 07:00 Received ESR [Erythrocyte Sedimentation Rate] Stat Lab 12/31/20 06:40 Completed LIPASE Stat Lab 12/31/20 06:25 Completed POCT GLUCOSE Stat Lab 12/31/20 09:09 Completed TROPONIN Q3H Lab 12/31/20 06:25 Completed TROPONIN Q3H Lab 12/31/20 09:45 Ordered TROPONIN Q3H Lab 12/31/20 12:45 Ordered TROPONIN Q3H Lab 12/31/20 15:45 Ordered TROPONIN Q3H Lab 12/31/20 18:45 Ordered UA W/RFX UR CULTURE Stat Lab 12/31/20 07:00 Completed Medication Summary Discontinued Medications Generic Name Dose Route Start Last Admin Trade Name Fadia PRN Reason Stop Dose Admin Sodium Chloride 1,000 mls @ 999 mls/hr 12/31/20 07:29 12/31/20 08:52 Sodium Chloride 0.9% 1000 Ml IV 12/31/20 08:29 Infused .Q1H1M STA Infusion Sodium Chloride Confirm 12/31/20 07:34 Sodium Chloride 0.9% 1000 Ml Administered 12/31/20 07:35 Dose 1,000 mls @ ud .ROUTE .STK-MED ONE Ceftriaxone Sodium/Dextrose 1 g in 50 mls @ 100 mls/hr 12/31/20 08:49 12/31/20 08:51 Rocephin 1 Gm-D5w 50 Ml Bag IV 12/31/20 09:18 100 mls/hr STAT ONE 100 mls/hr Administration Ceftriaxone Sodium/Dextrose Confirm 12/31/20 08:49 Rocephin 1 Gm-D5w 50 Ml Bag Administered 12/31/20 08:50 Dose 1 g in 50 mls @ ud IV .STK-MED ONE Lab/Rad Data: Laboratory Result Diagrams 12/31/20 06:25 12/31/20 06:25 Laboratory Results 12/31/20 12/31/20 12/31/20 Range/Units 09:09 07:00 06:40 WBC (4.0-10.5) K/mm3 RBC (4.1-5.4) M/mm3 Hgb (12.0-16.0) gm/dl Hct (35-47) % MCV (78-100) fl MCH (26-32) pg MCHC (32-36) g/dl RDW (11.5-14.0) % Plt Count (150-450) K/mm3 Gran % (36.0-66.0) % Eos # (Auto) (0-0.5) Absolute Lymphs (auto) (1.0-4.6) Absolute Monos (auto) (0.0-1.3) Lymphocytes % (24.0-44.0) % Monocytes % (0.0-12.0) % Eosinophils % (0.00-5.0) % Basophils % (0.0-0.4) % Absolute Granulocytes (1.4-6.9) Basophils # (0-0.4) ESR 54 H (0-20) mm/hr Sodium (137-145) mmol/L Potassium (3.5-5.1) mmol/L Chloride (98-107) mmol/L Carbon Dioxide (22-30) mmol/L Anion Gap (5-15) MEQ/L BUN (7-17) mg/dL Creatinine (0.52-1.04) mg/dL Estimated GFR ML/MIN Glucose (74-106) mg/dL POC Glucometer 248 H (74 to 106) mg/dL Calcium (8.4-10.2) mg/dL Total Bilirubin (0.2-1.3) mg/dL AST (14-36) U/L ALT (0-35) U/L Alkaline Phosphatase (38-126) U/L Troponin I (0.000-0.034) ng/mL Serum Total Protein (6.3-8.2) g/dL Albumin (3.5-5.0) g/dL Amylase (30-110) U/L Lipase (23-300) U/L Urine Color WILLI (YELLOW) Urine Appearance CLOUDY (CLEAR) Urine pH 6.0 (5-6) Ur Specific [place] 1.021 (1.005-1.025) Urine Protein 100 (Negative) Urine Ketones NEGATIVE (NEGATIVE) Urine Blood NEGATIVE (0-5) Jeff/ul Urine Nitrite NEGATIVE (NEGATIVE) Urine Bilirubin NEGATIVE (NEGATIVE) Urine Urobilinogen 2 (0-1) mg/dL Ur Leukocyte Esterase MODERATE (NEGATIVE) Urine WBC (Auto) >100 (0-5) /HPF Urine RBC (Auto) 3-5 (0-2) /HPF U Epithel Cells (Auto) RARE (FEW) /HPF Urine Bacteria (Auto) PACKED (NEGATIVE) /HPF Urine Mucus (Auto) SLIGHT (NEGATIVE) /HPF Urine Culture Reflexed YES (NO) Urine Glucose 50 (NEGATIVE) mg/dL 12/31/20 12/31/20 12/31/20 Range/Units 06:25 06:25 06:25 WBC 8.7 (4.0-10.5) K/mm3 RBC 4.82 (4.1-5.4) M/mm3 Hgb 10.0 L (12.0-16.0) gm/dl Hct 35.1 (35-47) % MCV 72.8 L (78-100) fl MCH 20.7 L (26-32) pg MCHC 28.5 L (32-36) g/dl RDW 18.8 H (11.5-14.0) % Plt Count 232 (150-450) K/mm3 Gran % 78.7 H (36.0-66.0) % Eos # (Auto) 0.26 (0-0.5) Absolute Lymphs (auto) 0.98 L (1.0-4.6) Absolute Monos (auto) 0.59 (0.0-1.3) Lymphocytes % 11.2 L (24.0-44.0) % Monocytes % 6.8 (0.0-12.0) % Eosinophils % 3.0 (0.00-5.0) % Basophils % 0.3 (0.0-0.4) % Absolute Granulocytes 6.87 (1.4-6.9) Basophils # 0.03 (0-0.4) ESR (0-20) mm/hr Sodium 136 L (137-145) mmol/L Potassium 4.0 (3.5-5.1) mmol/L Chloride 101 (98-107) mmol/L Carbon Dioxide 20 L (22-30) mmol/L Anion Gap 18.5 H (5-15) MEQ/L BUN 15 (7-17) mg/dL Creatinine 0.60 (0.52-1.04) mg/dL Estimated GFR > 60.0 ML/MIN Glucose 330 H (74-106) mg/dL POC Glucometer (74 to 106) mg/dL Calcium 9.5 (8.4-10.2) mg/dL Total Bilirubin 0.40 (0.2-1.3) mg/dL AST 38 H (14-36) U/L ALT 31 (0-35) U/L Alkaline Phosphatase 172 H (38-126) U/L Troponin I < 0.012 (0.000-0.034) ng/mL Serum Total Protein 7.7 (6.3-8.2) g/dL Albumin 4.1 (3.5-5.0) g/dL Amylase 47 (30-110) U/L Lipase 70 (23-300) U/L Urine Color (YELLOW) Urine Appearance (CLEAR) Urine pH (5-6) Ur Specific [place] (1.005-1.025) Urine Protein (Negative) Urine Ketones (NEGATIVE) Urine Blood (0-5) Jeff/ul Urine Nitrite (NEGATIVE) Urine Bilirubin (NEGATIVE) Urine Urobilinogen (0-1) mg/dL Ur Leukocyte Esterase (NEGATIVE) Urine WBC (Auto) (0-5) /HPF Urine RBC (Auto) (0-2) /HPF U Epithel Cells (Auto) (FEW) /HPF Urine Bacteria (Auto) (NEGATIVE) /HPF Urine Mucus (Auto) (NEGATIVE) /HPF Urine Culture Reflexed (NO) Urine Glucose (NEGATIVE) mg/dL - Progress Progress: improved Counseled pt/family regarding: lab results, diagnosis, need for follow-up, rad results <JASON WHITING - Last Filed: 12/31/20 09:26> - Progress Progress Note: Patient endorsed to Dr. Whiting at approximately 7 AM. Labs ordered. Labs were pending. Dr. Whiting ordered IV fluids and CT abdomen pelvis. Lab results reveals a microcytic anemia with a mild anion gap acidosis and hyperglycemia consistent with a mild DKA. Patient does have a history of diabetes. UA significant for urinary tract infection. Patient received a gram of ceftriaxone. CT abdomen pelvis shows bilateral renal cysts. Otherwise negative. Patient declined pain medication. We will hydrate patient recheck glucose and discharge home. We will forward a prescription for Keflex to patient's pharmacy to treat her urinary tract infection. Patient states she is experience bright red blood per rectum. There is no rectal bleeding at this time. Patient understands the importance of following up with her primary care doctor regarding this finding. However she states she recently had a colonoscopy that was negative. Nonetheles s this complaint needs to be looked into further on an outpatient basis. 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 Patient agrees to follow-up with her primary care doctor within 48 hours for reevaluation. She voices no other complaints or concerns at this time. 12/31/20 08:52 Accu-Chek after 1 L of fluid is 248. Patient reassessed. She feels well. Patient states is ready for discharge. Will discharge home at this time. Prescription for Keflex forwarded to patient's pharmacy. Patient voices no other complaints concerns at this time. 12/31/20 09:24 12/31/20 09:26 Portions of this note were created with voice recognition technology. There may be grammatical, spelling, punctuation or sound alike errors (JASON WHITING) <CHANDAN FREEDMAN - Last Filed: 12/31/20 06:52> - Departure Departure Disposition: Home Critical Care Time: No <JASON WHITING - Last Filed: 12/31/20 09:26> - Departure Clinical Impression: Abdominal pain, Microcytic anemia, High anion gap metabolic acidosis, Hyperglycemia, DKA (diabetic ketoacidoses), UTI (urinary tract infection), Renal cysts, acquired, bilateral, BRBPR (bright red blood per rectum) Condition: Stable Referrals: CALVIN PALOMINO [Primary Care Provider] - Additional Instructions: Discharge/Care Plan ENRICO SMALLWOOD was seen on 12/31/20 in the Emergency Room. The patient was counseled regarding Diagnosis,Lab results, Imaging studies, need for follow up and when to return to the Emergency Room. Prescriptions given: Discharge Note I have spoken with the patient and/or caregivers. I have explained the patient's condition, diagnosis and treatment plan based on the information available to me at this time. I have answered the patient's and/or caregiver's questions and addressed any concerns. The patient and/or caregivers have as good understanding of the patient's diagnosis, condition and treatment plan as can be expected at this point. The vital signs have been stable. The patient's condition is stable and appropriate for discharge from the emergency department. The patient will pursue further outpatient evaluation with the primary care physician or other designated or consulting physician as outlined in the discharge instructions. The patient and/or caregivers are agreeable to this plan of care and follow-up instructions have been explained in detail. The patient and/or caregivers have received these instruction. The patient/and or caregivers are aware that any significant change in condition or worsening of symptoms should prompt an immediate return to this or the closest emergency department or call 911. Prescriptions: Cephalexin Mh 500 mg [Keflex 500 mg] 500 mg PO BID 7 Days #14 capsule
[2020-12-31 07:07] LABS: Absolute Neutrophil Ct (ANC) 6.87 (1.4-6.9); BASOPHIL % 0.3 % (0.0-0.4); Basophil (Absolute #) 0.03 (0-0.4); Eosinophil (Absolute #) 0.26 (0-0.5); Hematocrit 35.1 % (35-47); Lymphocyte (Absolute #) 0.98 (1.0-4.6); Lymphocytes % 11.2 % (24.0-44.0); Mean Cell Volume 72.8 fl (78-100); Mean Corpuscular Hemoglobin 20.7 pg (26-32); Mean Corpuscular Hgb Concent. 28.5 g/dl (32-36); Monocyte (Absolute #) 0.59 (0.0-1.3); Monocytes % 6.8 % (0.0-12.0); Neutrophil % 78.7 % (36.0-66.0); Platelet Count 232 K/mm3 (150-450); Red Blood Count 4.82 M/mm3 (4.1-5.4); Red Cell Distribution Width 18.8 % (11.5-14.0); White Blood Count 8.7 K/mm3 (4.0-10.5)
[2020-12-31 07:20] LABS: ALBUMIN 4.1 g/dL (3.5-5.0); ALKALINE PHOSPHATASE 172 U/L (38-126); AMYLASE 47 U/L (30-110); ANION GAP 18.5 MEQ/L (5-15); BLOOD UREA NITROGEN 15 mg/dL (7-17); CHLORIDE 101 mmol/L (98-107); Calcium 9.5 mg/dL (8.4-10.2); Carbon Dioxide 20 mmol/L (22-30); EST GLOMERULAR FILTRATION RATE > 60.0 ML/MIN; Glucose 330 mg/dL (74-106); LIPASE 70 U/L (23-300); SGOT/AST 38 U/L (14-36); SGPT/ALT 31 U/L (0-35); SODIUM 136 mmol/L (137-145); Total Protein 7.7 g/dL (6.3-8.2)
[2020-12-31] MEDS ORDERED: Sodium Chloride 0.9% 1000 ML 1,000 ML IV STA (07:29)
[2020-12-31] MEDS ORDERED: Sodium Chloride 0.9% 1000 ML 1,000 ML ONE (07:34)
[2020-12-31 08:32] LABS: Appearance CLOUDY (CLEAR); Bacteria PACKED /HPF (NEGATIVE); Bilirubin NEGATIVE (NEGATIVE); Blood NEGATIVE Ery/ul (0-5); Epithelial Cells RARE /HPF (FEW); Glucose 50 mg/dL (NEGATIVE); Ketones NEGATIVE (NEGATIVE); Leukocyte Esterase MODERATE (NEGATIVE); Mucus SLIGHT /HPF (NEGATIVE); Nitrite NEGATIVE (NEGATIVE); Protein,Urine Dip 100 (Negative); Specific Gravity 1.021 (1.005-1.025); Urobilinogen 2 mg/dL (0-1); WBC >100 /HPF (0-5)
--- NOTE | 2020-12-31 08:40 | XRAY ---
Indication: Abdomen pain and diarrhea. Blood in stool. History of Crohn's disease. Multiple contiguous images obtained through the abdomen and pelvis using 80 cc Isovue 370 contrast. Comparison: June 14, 2016. Lung bases again demonstrate dependent atelectasis without focal infiltrate or effusion. Heart is not enlarged. Noncontrasted stomach and bowel loops are nonobstructed. Appendix not seen. Normal ileocecal junction. No bowel wall thickening or free fluid/air. Enlarging 3.6 cm left mid renal cyst previously 2.3 cm. New 1.2 cm right lower pole renal cyst. Remaining liver, gallbladder, pancreas, spleen, adrenal glands, kidneys, ureters, bladder, and uterus appear unremarkable. Minimal aortoiliac calcifications. No AAA or pathologic retroperitoneal lymphadenopathy. Osseous structures intact with minimal degenerative changes throughout the spine. Stable tiny fatty umbilical hernia. Impression: 1. Bilateral renal cysts. 2. Remaining CT abdomen/pelvis with contrast exam is negative.
[2020-12-31] MEDS ORDERED: ROCEPHIN 1 Gm-D5w 50 ml Bag** 1 G/50 ML IVPB IV ONE ×2 (08:49)
[2020-12-31 09:11] VITALS: BP 132/57
[2020-12-31 09:40] VITALS: PULSE 84; O2SAT 92
[2020-12-31 14:50] LABS: Slide Review 1 YES
== END 2020-12-31 09:52 | disposition home or self-care (01) ==
LOC: ED 06:07
DX: R10.9 Unspecified abdominal pain (principal)
CPT/HCPCS: 36000; 36415; 74177; 80053; 81001; 82150; 82947; 83690; 84484; 85025; 85652; 87077; 87086; 87186; 96360; 96365; 99284; J0696

== ENCOUNTER 2021-01-12 18:57 | Emergency (ER) | payer MEDICARE ==
[2021-01-12] MEDS ORDERED: Sodium Chloride 0.9% 1000 ML 1,000 ML IV STA (19:39)
[2021-01-12] MEDS ORDERED: TYLENOL 325 MG PO ONE (19:39)
[2021-01-12] MEDS ORDERED: Zofran 4 MG/2 ML VIAL IV ONE (19:39)
[2021-01-12] MEDS ORDERED: TORAdol 30 mg Injection IV ONE (19:39)
--- NOTE | 2021-01-12 19:45 | ERPHSYRPT ---
- History of Present Illness Time Seen by Provider: 01/12/21 19:00 Source: patient Exam Limitations: no limitations Patient Subjective Stated Complaint: pt states "I think that I have a kidney stone." "I had one 10 years ago." Triage Nursing Assessment: pt ambulated into the er; pt is axo x4; c/o rt lower back pain; pt states 7/10 pain; pt states that she has blood in her stool; pt has tenderness to rt lower back with palpation; clear lung sounds in all lobe; active bowel sounds in all quads; hypertensive; pt states she has history of kidney stones; pt states "It feels the same as before when I had a kidney stone." Physician History: Patient is here with right lower flank pain. Has been going on for 4 days. No known falls or trauma. Patient states that she was lifting some boxes. She states that it started hurting the day after this. No fever no chills. No chest pain, shortness of breath. No vomiting. Some very mild nausea associate with the pain. Location: right lower flank pain Quality: sharp Radiation: none Severity: moderate Duration: 4 days Timing: gradual Modifying factors/associated signs and symptoms: home medication Timing/Duration: day(s) Severity: moderate Modifying Factors: Improves With: eating Associated Symptoms: nausea Allergies/Adverse Reactions: cyclobenzaprine HCl [From Flexeril] Allergy (Mild, Verified 01/12/21 19:08) Rash metoclopramide [From Reglan] Allergy (Mild, Verified 01/12/21 19:08) Rash Sulfa (Sulfonamide Antibiotics) [Sulfa(Sulfonamide Antibiotics)] Allergy (Mild, Verified 01/12/21 19:08) Rash adhesive Allergy (Verified 01/12/21 19:08) nalbuphine HCl [From Nubain] Adverse Reaction (Intermediate, Verified 01/12/21 19:08) Stomach Cramps patient states she had stomach "burning" and that her legs felt like "rubber bands" ciprofloxacin [From Cipro] Adverse Reaction (Mild, Verified 01/12/21 19:08) meperidine HCl [From Demerol] Adverse Reaction (Mild, Verified 01/12/21 19:08) Vomiting Home Medications: Duloxetine HCl 60 mg PO DAILY 03/17/16 [History] Ergocalciferol (Vitamin D2) [Vitamin D2] 50,000 unit PO Q7D 03/17/16 [History] Mesalamine [Pentasa] 500 mg PO BID 03/17/16 [History] Metformin HCl 1000 mg [Glucophage 1000 MG] 1,000 mg PO BID 03/17/16 [History] Methocarbamol 500 mg [Robaxin 500 MG] 1,000 mg PO QIDPRN PRN 03/17/16 [History] Omeprazole 20 MG [Prilosec 20 mg] 20 mg PO BID 03/17/16 [History] Aripiprazole 10 mg [Abilify 10 MG] 2 mg PO HS 08/08/16 [History] Atorvastatin Calcium 10 mg PO DAILY 01/25/18 [History] Insulin Glargine,Hum.rec.anlog [Basaglar Kwikpen U-100] 36 unit SQ HS 12/05/19 [History] Meclizine HCl 25 mg [Antivert 25 mg] 25 mg PO DAILY PRN 12/05/19 [History] Insulin Aspart [Novolog] 38 unit SQ ACHS 08/02/20 [History] Isosorbide Mononitrate 60 mg [Imdur 60MG] 120 mg PO DAILY 12/31/20 [History] Levothyroxine Sodium 25 Mcg [Synthroid 25 Mcg] 25 mcg PO DAILY 12/31/20 [History] Metoprolol Succinate 100 mg [Toprol Xl 100 MG] 100 mg PO DAILY 12/31/20 [History] Hx Tetanus, Diphtheria Vaccination/Date Given: No Hx Influenza Vaccination/Date Given: No Hx Pneumococcal Vaccination/Date Given: No Travel Risk - International Travel Have you traveled outside of the country in past 3 weeks: No - Coronavirus Screening Are you exhibiting any of the following symptoms?: No Close contact with a COVID-19 positive Pt in past 14-21 Days: No - Vaccine Status Have you recieved a Covid-19 vaccination: No - Review of Systems Constitutional: No Fever, No Chills Eyes: No Symptoms Ears, Nose, & Throat: No Symptoms Respiratory: No Cough, No Dyspnea Cardiac: No Chest Pain, No Edema, No Syncope Abdominal/Gastrointestinal: Other (right lower flank pain), No Abdominal Pain, No Nausea, No Vomiting, No Diarrhea Genitourinary Symptoms: No Dysuria Musculoskeletal: No Back Pain, No Neck Pain Skin: No Rash Neurological: No Dizziness, No Focal Weakness, No Sensory Changes Psychological: No Symptoms Endocrine: No Symptoms All Other Systems: Reviewed and Negative - Past Medical History Pertinent Past Medical History: Yes Neurological History: Migraines ENT History: Cataracts Cardiac History: Coronary Artery Disease, High Cholesterol, Hypertension, Myocardial Infarction (MT) Respiratory History: Asthma, Bronchitis, COPD, Sleep Apnea Endocrine Medical History: Diabetes Type II Musculoskeletal History: Arthritis, Degenerative Disk Disease, Fibromyalgia, Osteoarthritis GI Medical History: Crohns Disease, Diverticulitis, GERD History: No Pertinent History Psycho-Social History: Anxiety, Depression Female Reproductive Disorders: No Pertinent History Other Medical History: uti, yeast infection, neuropathy - Past Surgical History Past Surgical History: Yes Neuro Surgical History: No Pertinent History Cardiac: Cardiac Catheterization Respiratory: No Pertinent History Gastrointestinal: No Pertinent History Genitourinary: No Pertinent History Musculoskeletal: No Pertinent History Female Surgical History: Dilation & Curettage, Section, Tubal Ligation Other Surgical History: KIDNEY STONE REMOVAL, D&C. heart cath x3, no stents - Social History Smoking Status: Never smoker Exposure to second hand smoke: No Alcohol Use: None Drug Use: none Patient Lives Alone: Yes Significant Family History: diabetes, hypertension - Female History Hx Now: No - Nursing Vital Signs Nursing Vital Signs: Initial Vital Signs Temperature 98.1 F 01/12/21 19:12 Pulse Rate 82 01/12/21 19:12 Respiratory Rate 24 01/12/21 19:12 Blood Pressure 152/69 01/12/21 19:12 O2 Sat by Pulse Oximetry 96 01/12/21 19:12 Pain Scale Pain Intensity 5 - Physical Exam General Appearance: no apparent distress, alert Eye Exam: PERRL/EOMI, eyes nml inspection Ears, Nose, Throat Exam: normal ENT inspection, TMs normal, pharynx normal, moist mucous membranes Neck Exam: normal inspection, non-tender, supple, full range of motion Respiratory Exam: normal breath sounds, lungs clear, No respiratory distress Cardiovascular Exam: regular rate/rhythm, normal heart sounds, normal peripheral pulses Gastrointestinal/Abdomen Exam: soft, normal bowel sounds, other (right lower flank tenderness to palpation ), No tenderness, No mass Back Exam: normal inspection, normal range of motion, No CVA tenderness, No vertebral tenderness Extremity Exam: normal inspection, normal range of motion, pelvis stable Neurologic Exam: alert, oriented x 3, cooperative, normal mood/affect, nml cerebellar function, nml station & gait, sensation nml, No motor deficits Skin Exam: normal color, warm, dry, No rash Lymphatic Exam: No adenopathy SpO2: 96 - Course Nursing assessment & vital signs reviewed: No Ordered Tests: Active Orders 24 hr Category Date Time Status EKG-ER Only STAT Care 01/12/21 19:39 Active IV Insertion STAT Care 01/12/21 19:39 Active ABDOMEN AND PELVIS W CONTRAST [CT] Stat Exams 01/12/21 20:52 Taken CBC W DIFF Stat Lab 01/12/21 19:35 Completed CMP Stat Lab 01/12/21 19:35 Completed CULTURE,URINE Stat Lab 01/12/21 19:35 Received LIPASE Stat Lab 01/12/21 19:35 Completed UA W/RFX UR CULTURE Stat Lab 01/12/21 19:35 Completed Medication Summary Discontinued Medications Generic Name Dose Route Start Last Admin Trade Name Freq PRN Reason Stop Dose Admin Acetaminophen 975 mg 01/12/21 19:39 01/12/21 20:02 Tylenol 325 Mg PO 01/12/21 19:40 975 mg STAT ONE Administration Acetaminophen Confirm 01/12/21 19:58 Tylenol 325 Mg Administered 01/12/21 19:59 Dose 975 mg .ROUTE .STK-MED ONE Sodium Chloride 1,000 mls @ 999 mls/hr 01/12/21 19:39 01/12/21 21:03 Sodium Chloride 0.9% 1000 Ml IV 01/12/21 20:39 Infused .Q1H1M STA Infusion Sodium Chloride Confirm 01/12/21 19:58 Sodium Chloride 0.9% 1000 Ml Administered 01/12/21 19:59 Dose 1,000 mls @ ud .ROUTE .STK-MED ONE Piperacillin Sod/Tazobactam 100 mls @ 200 mls/hr 01/12/21 20:52 01/12/21 21:19 Sod 4.5 gm/ Sodium Chloride IV 01/12/21 21:21 200 mls/hr STAT ONE Administration Sodium Chloride Confirm 01/12/21 21:14 Sodium Chloride 100ml Mini-Bag Plus Administered 01/12/21 21:15 Dose 100 mls @ ud IV .STK-MED ONE Ketorolac Tromethamine 30 mg 01/12/21 19:39 01/12/21 20:02 Toradol 30 Mg Injection IV 01/12/21 19:40 30 mg STAT ONE Administration Ketorolac Tromethamine Confirm 01/12/21 19:58 Toradol 30 Mg Injection Administered 01/12/21 19:59 Dose 30 mg .ROUTE .STK-MED ONE Ondansetron HCl 4 mg 01/12/21 19:39 01/12/21 20:03 Zofran 4 Mg/2 Ml Vial IV 01/12/21 19:40 4 mg STAT ONE Administration Ondansetron HCl Confirm 01/12/21 19:58 Zofran 4 Mg/2 Ml Vial Administered 01/12/21 19:59 Dose 4 mg .ROUTE .STK-MED ONE Piperacillin Sod/Tazobactam Sod Confirm 01/12/21 21:14 Zosyn Inj Administered 01/12/21 21:15 Dose 4.5 gm IV .STK-MED ONE Lab/Rad Data: Laboratory Result Diagrams 01/12/21 19:35 01/12/21 19:35 Laboratory Results 01/12/21 01/12/21 01/12/21 Range/Units 19:35 19:35 19:35 WBC 11.3 H (4.0-10.5) K/mm3 RBC 4.57 (4.1-5.4) M/mm3 Hgb 9.6 L (12.0-16.0) gm/dl Hct 33.6 L (35-47) % MCV 73.5 L (78-100) fl MCH 21.0 L (26-32) pg MCHC 28.6 L (32-36) g/dl RDW 19.3 H (11.5-14.0) % Plt Count 313 (150-450) K/mm3 Gran % 76.1 H (36.0-66.0) % Eos # (Auto) 0.26 (0-0.5) Absolute Lymphs (auto) 1.55 (1.0-4.6) Absolute Monos (auto) 0.87 (0.0-1.3) Lymphocytes % 13.7 L (24.0-44.0) % Monocytes % 7.7 (0.0-12.0) % Eosinophils % 2.3 (0.00-5.0) % Basophils % 0.2 (0.0-0.4) % Absolute Granulocytes 8.62 H (1.4-6.9) Basophils # 0.02 (0-0.4) Sodium 137 (137-145) mmol/L Potassium 4.1 (3.5-5.1) mmol/L Chloride 104 (98-107) mmol/L Carbon Dioxide 18 L (22-30) mmol/L Anion Gap 18.9 H (5-15) MEQ/L BUN 12 (7-17) mg/dL Creatinine 0.71 (0.52-1.04) mg/dL Estimated GFR > 60.0 ML/MIN Glucose 109 H (74-106) mg/dL Calcium 9.5 (8.4-10.2) mg/dL Total Bilirubin 0.40 (0.2-1.3) mg/dL AST 33 (14-36) U/L ALT 23 (0-35) U/L Alkaline Phosphatase 126 (38-126) U/L Serum Total Protein 7.8 (6.3-8.2) g/dL Albumin 4.0 (3.5-5.0) g/dL Lipase 18 L (23-300) U/L Urine Color WILLI (YELLOW) Urine Appearance CLOUDY (CLEAR) Urine pH 5.0 (5-6) Ur Specific [place] 1.034 (1.005-1.025) Urine Protein 100 (Negative) Urine Ketones NEGATIVE (NEGATIVE) Urine Blood SMALL (0-5) Jeff/ul Urine Nitrite POSITIVE (NEGATIVE) Urine Bilirubin NEGATIVE (NEGATIVE) Urine Urobilinogen NEGATIVE (0-1) mg/dL Ur Leukocyte Esterase SMALL (NEGATIVE) Urine WBC (Auto) 11-15 (0-5) /HPF Urine RBC (Auto) 3-5 (0-2) /HPF U Hyaline Cast (Auto) 0-2 (0-2) /LPF U Epithel Cells (Auto) RARE (FEW) /HPF Urine Bacteria (Auto) MANY (NEGATIVE) /HPF Urine Mucus (Auto) SLIGHT (NEGATIVE) /HPF Urine Culture Reflexed YES (NO) Urine Glucose 150 (NEGATIVE) mg/dL - Progress Progress: improved Progress Note: 01/12/21 19:45 differential diagnosis includes kidney stone, compression fracture, infection, UTI, triple AAA - basic labs including: CBC, lipase, CMP, UA - insert IV for fluids, pain meds, nausea control - consider imaging: CT ab/pelvis 01/12/21 21:35 UA demonstrates obvious UTI. First dose of antibiotics given IV in the emergency room tonight. Going home we will place patient on Bactrim. Close follow-up with PCP to check urine cultures. Patient will return here for any new or worsening symptoms. No signs of sepsis or other sinister pathology tonight. Plan of care was discussed with patient and all questions answered. The patient is agreeable to be discharged home and both verbal and printed discharge instructions were provided.The patient agreed to seek outpatient follow up as discussed. The patient was given strict instructions to return to the emergency department for worsening symptoms or any other emergent concerns. The patient verbalized understanding. Counseled pt/family regarding: lab results, diagnosis, need for follow-up, rad results - Departure Departure Disposition: Home Clinical Impression: UTI (urinary tract infection) Condition: Stable Critical Care Time: No Referrals: CALVIN PALOMINO [Primary Care Provider] - Instructions: Acute Cystitis (DC) Prescriptions: Smz/Tmp Ds Tablet [Bactrim Ds Tablet] 1 udtab PO BID #14 tablet
[2021-01-12 19:53] LABS: Absolute Neutrophil Ct (ANC) 8.62 (1.4-6.9); BASOPHIL % 0.2 % (0.0-0.4); Basophil (Absolute #) 0.02 (0-0.4); Eosinophil % 2.3 % (0.00-5.0); Eosinophil (Absolute #) 0.26 (0-0.5); Hematocrit 33.6 % (35-47); Hemoglobin 9.6 gm/dl (12.0-16.0); Lymphocyte (Absolute #) 1.55 (1.0-4.6); Lymphocytes % 13.7 % (24.0-44.0); Mean Cell Volume 73.5 fl (78-100); Mean Corpuscular Hgb Concent. 28.6 g/dl (32-36); Monocyte (Absolute #) 0.87 (0.0-1.3); Monocytes % 7.7 % (0.0-12.0); Neutrophil % 76.1 % (36.0-66.0); Platelet Count 313 K/mm3 (150-450); Red Blood Count 4.57 M/mm3 (4.1-5.4); Red Cell Distribution Width 19.3 % (11.5-14.0); White Blood Count 11.3 K/mm3 (4.0-10.5)
[2021-01-12 19:54] LABS: Appearance CLOUDY (CLEAR); Bacteria MANY /HPF (NEGATIVE); Bilirubin NEGATIVE (NEGATIVE); Blood SMALL Ery/ul (0-5); Epithelial Cells RARE /HPF (FEW); Glucose 150 mg/dL (NEGATIVE); Hyaline Casts 0-2 /LPF (0-2); Ketones NEGATIVE (NEGATIVE); Leukocyte Esterase SMALL (NEGATIVE); Mucus SLIGHT /HPF (NEGATIVE); Nitrite POSITIVE (NEGATIVE); Protein,Urine Dip 100 (Negative); Specific Gravity 1.034 (1.005-1.025); Urobilinogen NEGATIVE mg/dL (0-1)
[2021-01-12] MEDS ORDERED: Zofran 4 MG/2 ML VIAL ONE (19:58)
[2021-01-12] MEDS ORDERED: TYLENOL 325 MG ONE (19:58)
[2021-01-12] MEDS ORDERED: TORAdol 30 mg Injection ONE (19:58)
[2021-01-12] MEDS ORDERED: Sodium Chloride 0.9% 1000 ML 1,000 ML ONE (19:58)
[2021-01-12 20:00] LABS: ALKALINE PHOSPHATASE 126 U/L (38-126); ANION GAP 18.9 MEQ/L (5-15); BLOOD UREA NITROGEN 12 mg/dL (7-17); CHLORIDE 104 mmol/L (98-107); Calcium 9.5 mg/dL (8.4-10.2); Carbon Dioxide 18 mmol/L (22-30); Creatinine 1 0.71 mg/dL (0.52-1.04); EST GLOMERULAR FILTRATION RATE > 60.0 ML/MIN; Glucose 109 mg/dL (74-106); LIPASE 18 U/L (23-300); Potassium 4.1 mmol/L (3.5-5.1); SGOT/AST 33 U/L (14-36); SGPT/ALT 23 U/L (0-35); SODIUM 137 mmol/L (137-145); Total Protein 7.8 g/dL (6.3-8.2)
[2021-01-12] MEDS ORDERED: Zosyn INJ 4.5 GM in Sodium Chloride 100ML MINI-BAG PLUS 100 ML IV ONE (20:52)
[2021-01-12] MEDS ORDERED: Sodium Chloride 100ML MINI-BAG PLUS 100 ML IV ONE (21:14)
[2021-01-12] MEDS ORDERED: Zosyn INJ IV ONE (21:14)
[2021-01-12 21:23] VITALS: O2SAT 96
[2021-01-12 21:56] VITALS: BP 124/65; PULSE 71
[2021-01-13 02:18] LABS: Slide Review 1 YES
--- NOTE | 2021-01-13 08:54 | XRAY ---
Indication: Right flank pain. Multiple contiguous axial images obtained through the abdomen and pelvis using 80 cc Isovue 370 contrast. Comparison: December 31, 2020. Lung bases again noted demonstrates bilateral dependent atelectasis. No infiltrate or effusion. Heart is not enlarged. Noncontrasted stomach and bowel loops remain nonobstructed. Appendix not seen. No free fluid/air. Stable bilateral renal cysts. Remaining liver, gallbladder, pancreas, spleen, adrenal glands, kidneys, ureters, bladder, and uterus appear unremarkable. Stable minimal aortoiliac calcifications. No AAA or pathologic retroperitoneal lymphadenopathy. Osseous structures intact again with minimal degenerative changes throughout the spine and mild degenerative changes both hips. Impression: Stable CT abdomen/pelvis with contrast exam again demonstrating incidental bilateral renal cysts and chronic bony findings. No new or acute abnormalities. Comment: Preliminary interpretation was made by [facility]. No critical discrepancy.
== END 2021-01-12 21:56 | disposition home or self-care (01) ==
LOC: ED 18:57
DX: N39.0 Urinary tract infection, site not specified (principal)
CPT/HCPCS: 36000; 36415; 74177; 80053; 81001; 83690; 85025; 87077; 87086; 87186; 93005; 96374; 96375; 99284; J1885; J2405; J2543; A9270-GY

== ENCOUNTER 2021-01-18 05:45 | Inpatient (IN) | payer MEDICARE ==
--- NOTE | 2021-01-18 06:00 | ERPHSYRPT ---
- History of Present Illness Historian: patient Exam Limitations: no limitations Timing/Duration: day(s) (3) Activities at Onset: none Quality: fullness, pressure Abdominal Pain Onset Location: generalized abdomen Pain Radiation: no radiation Severity of Pain-Max: mild Severity of Pain-Current: mild Modifying Factors: Improves With: nothing Associated Symptoms: shortness of breath, No nausea, No vomiting Previous symptoms: same symptoms as today Hx Tetanus, Diphtheria Vaccination/Date Given: No Hx Influenza Vaccination/Date Given: No Hx Pneumococcal Vaccination/Date Given: No <WIL OCONNELL - Last Filed: 01/18/21 07:08> <TIM SANDERS - Last Filed: 01/18/21 10:06> - History of Present Illness Time Seen by Provider: 01/18/21 06:00 Physician History: This is a morbidly obese 60-year-old white female with a history of coronary artery disease Hypertension, myocardial infarction, asthma, hypothyroidism, elevated cholesterol, COPD, diabetes, diverticulitis, Crohn's disease (on Pentasa) gastroesophageal reflux disease, anxiety and depression and presents with rectal bleeding has been present for 3 days and associated mild shortness of breath. Patient is not on any anticoagulation therapy. Patient was seen here on 01/12/2021 and diagnosed with a urinary tract infection and was sent home with a prescription of Bactrim DS. Her current symptoms are different than that on the prior visit. Patient states she often has some rectal bleeding but this last 3 days there is been associated blood clots. She denies chest pain. She describes her abdominal pain is more of a pressure or fullness bilaterally and generally. (WIL OCONNELL) Allergies/Adverse Reactions: cyclobenzaprine HCl [From Flexeril] Allergy (Mild, Verified 01/18/21 06:38) Rash metoclopramide [From Reglan] Allergy (Mild, Verified 01/18/21 06:38) Rash Sulfa (Sulfonamide Antibiotics) [Sulfa(Sulfonamide Antibiotics)] Allergy (Mild, Verified 01/18/21 06:38) Rash adhesive Allergy (Verified 01/18/21 06:38) nalbuphine HCl [From Nubain] Adverse Reaction (Intermediate, Verified 01/18/21 06:38) Stomach Cramps patient states she had stomach "burning" and that her legs felt like "rubber bands" ciprofloxacin [From Cipro] Adverse Reaction (Mild, Verified 01/18/21 06:38) meperidine HCl [From Demerol] Adverse Reaction (Mild, Verified 01/18/21 06:38) Vomiting Home Medications: Duloxetine HCl 60 mg PO DAILY 03/17/16 [History] Ergocalciferol (Vitamin D2) [Vitamin D2] 50,000 unit PO Q7D 03/17/16 [History] Mesalamine [Pentasa] 500 mg PO BID 03/17/16 [History] Metformin HCl 1000 mg [Glucophage 1000 MG] 1,000 mg PO BID 03/17/16 [History] Methocarbamol 500 mg [Robaxin 500 MG] 1,000 mg PO QIDPRN PRN 03/17/16 [History] Omeprazole 20 MG [Prilosec 20 mg] 20 mg PO BID 03/17/16 [History] Aripiprazole 10 mg [Abilify 10 MG] 2 mg PO HS 08/08/16 [History] Atorvastatin Calcium 10 mg PO DAILY 01/25/18 [History] Insulin Glargine,Hum.rec.anlog [Basaglar Kwikpen U-100] 36 unit SQ HS 12/05/19 [History] Meclizine HCl 25 mg [Antivert 25 mg] 25 mg PO DAILY PRN 12/05/19 [History] Insulin Aspart [Novolog] 38 unit SQ AC 08/02/20 [History] Isosorbide Mononitrate 60 mg [Imdur 60MG] 120 mg PO DAILY 12/31/20 [History] Levothyroxine Sodium 25 Mcg [Synthroid 25 Mcg] 25 mcg PO DAILY 12/31/20 [History] Metoprolol Succinate 100 mg [Toprol Xl 100 MG] 100 mg PO DAILY 12/31/20 [History] Travel Risk - International Travel Have you traveled outside of the country in past 3 weeks: No - Coronavirus Screening Are you exhibiting any of the following symptoms?: No Close contact with a COVID-19 positive Pt in past 14-21 Days: No - Vaccine Status Have you recieved a Covid-19 vaccination: No <WIL OCONNELL - Last Filed: 01/18/21 07:08> - Review of Systems Constitutional: No Symptoms Eyes: No Symptoms Ears, Nose, & Throat: No Symptoms Respiratory: Dyspnea Cardiac: No Symptoms Abdominal/Gastrointestinal: Abdominal Pain, Hematochezia Genitourinary Symptoms: No Symptoms Musculoskeletal: No Symptoms Skin: No Symptoms Neurological: No Symptoms Psychological: No Symptoms Endocrine: No Symptoms Hematologic/Lymphatic: No Symptoms Immunological/Allergic: No Symptoms All Other Systems: Reviewed and Negative <WIL OCONNELL - Last Filed: 01/18/21 07:08> - Past Medical History Pertinent Past Medical History: Yes Neurological History: Migraines ENT History: Cataracts Cardiac History: Coronary Artery Disease, High Cholesterol, Hypertension, Myocardial Infarction ([place]) Respiratory History: Asthma, Bronchitis, COPD, Sleep Apnea Endocrine Medical History: Diabetes Type II Musculoskeletal History: Arthritis, Degenerative Disk Disease, Fibromyalgia, Osteoarthritis GI Medical History: Crohns Disease, Diverticulitis, GERD History: No Pertinent History Psycho-Social History: Anxiety, Depression Female Reproductive Disorders: No Pertinent History Other Medical History: uti, yeast infection, neuropathy - Past Surgical History Past Surgical History: Yes Neuro Surgical History: No Pertinent History Cardiac: Cardiac Catheterization Respiratory: No Pertinent History Gastrointestinal: No Pertinent History Genitourinary: No Pertinent History Musculoskeletal: No Pertinent History Female Surgical History: Dilation & Curettage, Section, Tubal Ligation Other Surgical History: KIDNEY STONE REMOVAL, D&C. heart cath x3, no stents - Social History Smoking Status: Never smoker Exposure to second hand smoke: No Alcohol Use: None Drug Use: none Patient Lives Alone: Yes Significant Family History: diabetes, hypertension <WIL OCONNELL - Last Filed: 01/18/21 07:08> - Physical Exam General Appearance: no apparent distress, alert, anxiety, obese Eye Exam: PERRL/EOMI, eyes nml inspection Ears, Nose, Throat Exam: normal ENT inspection, moist mucous membranes Neck Exam: normal inspection, non-tender, supple, full range of motion Respiratory Exam: normal breath sounds, lungs clear, airway intact, No chest tenderness, No respiratory distress Cardiovascular Exam: regular rate/rhythm, normal heart sounds, normal peripheral pulses Gastrointestinal/Abdomen Exam: soft, normal bowel sounds, tenderness, No guarding (Mild diffuse), No rebound Pelvic Exam: not done Rectal Exam: not done Back Exam: normal inspection, normal range of motion, No CVA tenderness, No vertebral tenderness Extremity Exam: normal inspection, normal range of motion, pelvis stable Neurologic Exam: alert, oriented x 3, cooperative, cath lab manager II-XII nml as tested, normal mood/affect, nml cerebellar function, nml station & gait, sensation nml Skin Exam: normal color, warm, dry Lymphatic Exam: No adenopathy SpO2 Interpretation: normal O2 Delivery: Room Air <WIL OCONNELL - Last Filed: 01/18/21 07:08> - Nursing Vital Signs Nursing Vital Signs: Initial Vital Signs Temperature 98.2 F 01/18/21 06:14 Pulse Rate 86 01/18/21 06:14 Respiratory Rate 20 01/18/21 06:14 Blood Pressure 163/86 01/18/21 06:14 O2 Sat by Pulse Oximetry 95 01/18/21 06:14 Pain Scale Pain Intensity 6 - Course Nursing assessment & vital signs reviewed: Yes <WIL OCONNELL - Last Filed: 01/18/21 07:08> Ordered Tests: Active Orders 24 hr Category Date Time Status EKG-ER Only STAT Care 01/18/21 08:21 Active IV Insertion STAT Care 01/18/21 06:50 Active ABDOMEN AND PELVIS W/0 CONTRAS [CT] Stat Exams 01/18/21 06:50 Completed CHEST WITH CONTRAST [CT] Stat Exams 01/18/21 08:01 Taken AMYLASE Stat Lab 01/18/21 06:51 Completed CBC W DIFF Stat Lab 01/18/21 06:51 Completed CMP Stat Lab 01/18/21 06:51 Completed D-DIMER QUANTITATIVE Stat Lab 01/18/21 06:51 Completed LIPASE Stat Lab 01/18/21 06:51 Completed Lactic Acid Stat Lab 01/18/21 07:25 Completed Manual Differential NC Stat Lab 01/18/21 06:51 Completed POCT GLUCOSE Stat Lab 01/18/21 09:49 Completed PROTIME WITH INR Stat Lab 01/18/21 06:51 Completed TROPONIN Q3H Lab 01/18/21 08:30 Completed TROPONIN Q3H Lab 01/18/21 11:30 Ordered TROPONIN Q3H Lab 01/18/21 14:30 Ordered TROPONIN Q3H Lab 01/18/21 17:30 Ordered TROPONIN Q3H Lab 01/18/21 20:30 Ordered TROPONIN Q3H Lab 01/18/21 23:30 Ordered Medication Summary Discontinued Medications Generic Name Dose Route Start Last Admin Trade Name Fadia PRN Reason Stop Dose Admin Hydralazine HCl 10 mg 01/18/21 08:05 01/18/21 09:56 Apresoline 20 Mg/Ml Inj IV 01/18/21 08:06 10 mg STAT ONE Administration Hydralazine HCl Confirm 01/18/21 08:17 Apresoline 20 Mg/Ml Inj Administered 01/18/21 08:18 Dose 20 mg .ROUTE .STK-MED ONE Sodium Chloride 1,000 mls @ 999 mls/hr 01/18/21 06:50 01/18/21 08:17 Sodium Chloride 0.9% 1000 Ml IV 01/18/21 07:50 Infused .Q1H1M STA Infusion Sodium Chloride Confirm 01/18/21 07:15 Sodium Chloride 0.9% 1000 Ml Administered 01/18/21 07:16 Dose 1,000 mls @ ud .ROUTE .STK-MED ONE Piperacillin Sod/Tazobactam 100 mls @ 200 mls/hr 01/18/21 08:38 Sod 3.375 gm/ Sodium Chloride IV 01/18/21 09:07 STAT ONE Methylprednisolone Sodium Succinate 125 mg 01/18/21 08:01 01/18/21 08:19 Solu-Medrol 125 Mg IV 01/18/21 08:02 125 mg STAT ONE Administration Methylprednisolone Sodium Succinate Confirm 01/18/21 08:16 Solu-Medrol 125 Mg Administered 01/18/21 08:17 Dose 125 mg .ROUTE .STK-MED ONE Lab/Rad Data: Laboratory Result Diagrams 01/18/21 06:51 01/18/21 06:51 Laboratory Results 01/18/21 01/18/21 01/18/21 Range/Units 09:49 08:30 07:25 WBC (4.0-10.5) K/mm3 RBC (4.1-5.4) M/mm3 Hgb (12.0-16.0) gm/dl Hct (35-47) % MCV (78-100) fl MCH (26-32) pg MCHC (32-36) g/dl RDW (11.5-14.0) % Plt Count (150-450) K/mm3 PT (9.95-12.35) SECONDS INR (0.8-3.0) D-Dimer (215-500) ng/mL Sodium (137-145) mmol/L Potassium (3.5-5.1) mmol/L Chloride (98-107) mmol/L Carbon Dioxide (22-30) mmol/L Anion Gap (5-15) MEQ/L BUN (7-17) mg/dL Creatinine (0.52-1.04) mg/dL Estimated GFR ML/MIN Glucose (74-106) mg/dL POC Glucometer 258 H (74 to 106) mg/dL Lactic Acid 1.8 (0.4-2.0) Calcium (8.4-10.2) mg/dL Total Bilirubin (0.2-1.3) mg/dL AST (14-36) U/L ALT (0-35) U/L Alkaline Phosphatase (38-126) U/L Troponin I 0.014 (0.000-0.034) ng/mL Serum Total Protein (6.3-8.2) g/dL Albumin (3.5-5.0) g/dL Amylase (30-110) U/L Lipase (23-300) U/L 01/18/21 01/18/21 01/18/21 Range/Units 06:51 06:51 06:51 WBC 6.5 (4.0-10.5) K/mm3 RBC 4.02 L (4.1-5.4) M/mm3 Hgb 8.5 L (12.0-16.0) gm/dl Hct 29.4 L (35-47) % MCV 73.1 L (78-100) fl MCH 21.1 L (26-32) pg MCHC 28.9 L (32-36) g/dl RDW 19.0 H (11.5-14.0) % Plt Count 227 (150-450) K/mm3 PT 13.4 H (9.95-12.35) SECONDS INR 1.18 (0.8-3.0) D-Dimer 1867 H* (215-500) ng/mL Sodium 136 L (137-145) mmol/L Potassium 3.7 (3.5-5.1) mmol/L Chloride 103 (98-107) mmol/L Carbon Dioxide 25 (22-30) mmol/L Anion Gap 11.9 (5-15) MEQ/L BUN 10 (7-17) mg/dL Creatinine 0.54 (0.52-1.04) mg/dL Estimated GFR > 60.0 ML/MIN Glucose 293 H (74-106) mg/dL POC Glucometer (74 to 106) mg/dL Lactic Acid (0.4-2.0) Calcium 8.8 (8.4-10.2) mg/dL Total Bilirubin 0.40 (0.2-1.3) mg/dL AST 24 (14-36) U/L ALT 18 (0-35) U/L Alkaline Phosphatase 134 H (38-126) U/L Troponin I (0.000-0.034) ng/mL Serum Total Protein 6.5 (6.3-8.2) g/dL Albumin 3.3 L (3.5-5.0) g/dL Amylase 32 (30-110) U/L Lipase 19 L (23-300) U/L - Progress Progress: improved Counseled pt/family regarding: lab results, diagnosis, need for follow-up, rad results <WIL OCONNELL - Last Filed: 01/18/21 07:08> <TIM SANDERS - Last Filed: 01/18/21 10:06> - Progress Progress Note: 01/18/21 06:49 I reviewed the patient history, condition and pending lab and radiographic studies that need to be followed up on with Dr. Sanders. He accepts the patient in transfer at shift change. (WIL OCONNELL) 01/18/21 09:30 60 years old with multiple medical problems is checked out to me at shift change from Dr. Oconnell with pending work-up. Patient presented with 3 days history of left-sided dull aching pain and hematochezia and passing clots last night. She was also complaining of generalized weakness some some shortness of breath. Her work-up showed drop of hemoglobin from her baseline around 10-8.5 with normal platelets. Chemistry profile showed elevated blood glucose but she is not in DKA. She is given fluid bolus. She is not hypotensive and her blood pressure is actually on the higher side of 180s. Will give hydralazine if it goes to [address] abdomen pelvis without contrast showed diffuse colitis on the left, given a dose of Zosyn. She is also given Solu-Medrol for acute flareup of Crohn's. Discussed with , reviewed patient history, work-up, recommended transfer to facility with GI services because of her dropping hemoglobin which I believe is reasonable. I have discussed with [facility] hospitalist as patient has multiple other specialist up there and wants to go there. Patient would be accepted after discussion with GI on-call at [facility]. 01/18/21 10:[address] Phil Plaza, GI on-call at [facility], reviewed patient history/pres entation and work-up. Thanks this is the classic presentation of Crohn's flareup, recommended keeping patient in here and giving IV Solu-Medrol 40 mg twice daily and then switch to oral. If hemoglobin further drops patient needs transfusions. Do not think patient needs to be scoped are need any intervention from GI standpoint. I have discussed with again and he is okay with keeping patient in here. Plan discussed with patient to understand and agrees with it. (TIM SANDERS) - Departure Departure Disposition: Home Critical Care Time: No <WIL OCONNELL - Last Filed: 01/18/21 07:08> - Departure Departure Disposition: Transfer <TIM SANDERS - Last Filed: 01/18/21 10:06> - Departure Clinical Impression: Acute lower GI bleeding, Colitis, Symptomatic anemia, Hyperglycemia, Uncontrolled hypertension Condition: Stable Referrals: CALVIN PALOMINO [Primary Care Provider] -
[2021-01-18] MEDS ORDERED: Sodium Chloride 0.9% 1000 ML 1,000 ML IV STA (06:50)
[2021-01-18] MEDS ORDERED: Sodium Chloride 0.9% 1000 ML 1,000 ML ONE (07:15)
[2021-01-18 07:50] LABS: INR 1.18 (0.8-3.0); PROTIME 13.4 SECONDS (9.95-12.35)
[2021-01-18 07:56] LABS: Hematocrit 29.4 % (35-47); Hemoglobin 8.5 gm/dl (12.0-16.0); Mean Cell Volume 73.1 fl (78-100); Mean Corpuscular Hemoglobin 21.1 pg (26-32); Mean Corpuscular Hgb Concent. 28.9 g/dl (32-36); Platelet Count 227 K/mm3 (150-450); Red Blood Count 4.02 M/mm3 (4.1-5.4); White Blood Count 6.5 K/mm3 (4.0-10.5)
[2021-01-18 07:57] LABS: ALBUMIN 3.3 g/dL (3.5-5.0); ALKALINE PHOSPHATASE 134 U/L (38-126); AMYLASE 32 U/L (30-110); ANION GAP 11.9 MEQ/L (5-15); BLOOD UREA NITROGEN 10 mg/dL (7-17); CHLORIDE 103 mmol/L (98-107); Calcium 8.8 mg/dL (8.4-10.2); Carbon Dioxide 25 mmol/L (22-30); Creatinine 1 0.54 mg/dL (0.52-1.04); EST GLOMERULAR FILTRATION RATE > 60.0 ML/MIN; Glucose 293 mg/dL (74-106); LIPASE 19 U/L (23-300); Potassium 3.7 mmol/L (3.5-5.1); SGOT/AST 24 U/L (14-36); SGPT/ALT 18 U/L (0-35); SODIUM 136 mmol/L (137-145); Total Protein 6.5 g/dL (6.3-8.2)
[2021-01-18] MEDS ORDERED: solu-MEDROL 125 MG IV ONE (08:01)
[2021-01-18] MEDS ORDERED: APRESOLINE 20 MG/ML INJ IV ONE (08:05)
[2021-01-18] MEDS ORDERED: solu-MEDROL 125 MG ONE (08:16)
[2021-01-18] MEDS ORDERED: APRESOLINE 20 MG/ML INJ ONE (08:17)
[2021-01-18] MEDS ORDERED: Zosyn 3.375 GM Vial 3.375 GM in Sodium Chloride 100ML MINI-BAG PLUS 100 ML IV ONE (08:38)
--- NOTE | 2021-01-18 08:40 | XRAY ---
Indication: Rectal bleeding. History of Crohn's disease. Multiple contiguous axial images obtained through the abdomen and pelvis without contrast. Comparison: January 12, 2021. Lung bases again demonstrates mild dependent atelectasis. Heart is not enlarged. Noncontrasted stomach and bowel loops remain nonobstructed. Normal ileocecal junction. Appendix not seen. Distal transverse, descending, and proximal sigmoid colon now demonstrates mild wall thickening with minimal stranding favoring colitis. No free fluid/air. Gallbladder moderately distended without gallstones or biliary distention. Stable bilateral renal cysts. Remaining liver, gallbladder, pancreas, spleen, adrenal glands, kidneys, ureters, bladder, and uterus appear unremarkable for noncontrast exam. Stable minimal aortoiliac calcifications without AAA. Impression: 1. New mild left hemicolon colitis as detailed. No complications. 2. Distended gallbladder without gallstones. 3. Stable bilateral renal cysts. Comment: Preliminary interpretation was made by C. No critical discrepancy.
[2021-01-18] MEDS ORDERED: HOLD METFORMIN PRODUCTS FOR 48 HOURS MC SCH (09:00)
[2021-01-18] MEDS ORDERED: Zosyn 3.375 GM Vial IV ONE (10:22)
[2021-01-18] MEDS ORDERED: Sodium Chloride 100ML MINI-BAG PLUS 100 ML IV ONE (10:23)
[2021-01-18 11:39] LABS: INFLUENZA A NEGATIVE (NEGATIVE); INFLUENZA B NEGATIVE (NEGATIVE); RESPIRATORY SYNCTIAL VIRUS NEGATIVE (Negative)
--- NOTE | 2021-01-18 12:19 | XRAY ---
Indication: Short of breath. Elevated d-dimer. Multiple contiguous images obtained through the chest using 100 cc Isovue 370 contrast and PE protocol. Comparison: December 20, 2020. There is good opacification of the pulmonary arteries to include the lobar and segmental branches. No pulmonary embolus. Heart is borderline enlarged. Aorta is normal in course and caliber. No pathologic mediastinal/hilar lymphadenopathy. Lungs again demonstrates mild bilateral dependent atelectasis. Stable benign medial right upper lobe and peripheral right middle lobe noncalcified micronodules. No new pulmonary mass, infiltrate, or effusion. Bony thorax intact with minimal degenerative changes throughout the spine. CT abdomen/pelvis reported separately. Impression: 1. Negative pulmonary embolus. No acute cardiopulmonary abnormalities. 2. Stable benign right upper/right middle lobe noncalcified micronodules. Comment: Preliminary interpretation was made by [facility]. No critical discrepancy.
[2021-01-18 12:40] LABS: ABO TYPING A; RH TYPING POSITIVE
[2021-01-18 12:42] LABS: Antibody Screen POSITIVE (NEGATIVE)
[2021-01-18] MEDS ORDERED: HUMALOG SQ PRN (12:42)
[2021-01-18] MEDS ORDERED: Zofran 4 MG/2 ML VIAL IV PRN (12:42)
[2021-01-18] MEDS ORDERED: MORPHINE SULFATE 2 MG INJ IV PRN (12:42)
[2021-01-18] MEDS ORDERED: HUMULIN R SQ PRN (12:42)
--- NOTE | 2021-01-18 12:47 | PCM.HP ---
History of Present Illness - Chief Complaint Chief Complaint: abdominal pain for 2-3 days History of Present Illness: is a 60 year old female morbidly obese with a history of coronary artery disease Hypertension, myocardial infarction, asthma, hypothyroidism, elevated cholesterol, COPD, diabetes, diverticulitis, Crohn's disease (on Pentasa) gastroesophageal reflux disease, anxiety and depression and presents with rectal bleeding has been present for 3 days and associated mild shortness of breath. Patient is not on any anticoagulation therapy. Patient was seen here on 01/12/2021 and diagnosed with a urinary tract infection and was sent home with a prescription of Bactrim DS. Her current symptoms are different than that on the prior visit. Patient states she often has some rectal bleeding but this last 3 days there is been associated blood clots. She denies chest pain. She describes her abdominal pain is more of a pressure or fullness bilaterally and generally. - Review of Systems Constitutional: No Fever, No Chills Eyes: No Symptoms Ears, Nose, & Throat: No Symptoms Respiratory: No Cough, No Short Of Breath Cardiac: No Chest Pain, No Edema, No Syncope Abdominal/Gastrointestinal: No Abdominal Pain, No Nausea, No Vomiting, No Diarrhea Genitourinary Symptoms: No Dysuria Musculoskeletal: No Back Pain, No Neck Pain Skin: No Rash Neurological: No Dizziness, No Focal Weakness, No Sensory Changes Psychological: No Symptoms Endocrine: No Symptoms Hematologic/Lymphatic: No Symptoms Immunological/Allergic: No Symptoms Medications & Allergies Home Medications: Home Medication List Duloxetine HCl 60 mg PO DAILY 03/17/16 [History Confirmed 01/18/21] Ergocalciferol (Vitamin D2) [Vitamin D2] 50,000 unit PO Q7D 03/17/16 [History Confirmed 01/18/21] Mesalamine [Pentasa] 500 mg PO BID 03/17/16 [History Confirmed 01/18/21] Metformin HCl 1000 mg [Glucophage 1000 MG] 1,000 mg PO BID 03/17/16 [History Confirmed 01/18/21] Methocarbamol 500 mg [Robaxin 500 MG] 1,000 mg PO QIDPRN PRN 03/17/16 [History Confirmed 01/18/21] Omeprazole 20 MG [Prilosec 20 mg] 20 mg PO BID 03/17/16 [History Confirmed 01/18/21] Aripiprazole 10 mg [Abilify 10 MG] 2 mg PO HS 08/08/16 [History Confirmed 01/18/21] Atorvastatin Calcium 10 mg PO DAILY 01/25/18 [History Confirmed 01/18/21] Insulin Glargine,Hum.rec.anlog [Basaglar Kwikpen U-100] 36 unit SQ HS 12/05/19 [History Confirmed 01/18/21] Meclizine HCl 25 mg [Antivert 25 mg] 25 mg PO DAILY PRN 12/05/19 [History Confirmed 01/18/21] Insulin Aspart [Novolog] 38 unit SQ AC 08/02/20 [History Confirmed 01/18/21] Isosorbide Mononitrate 60 mg [Imdur 60MG] 120 mg PO DAILY 12/31/20 [History Confirmed 01/18/21] Levothyroxine Sodium 25 Mcg [Synthroid 25 Mcg] 25 mcg PO DAILY 12/31/20 [History Confirmed 01/18/21] Metoprolol Succinate 100 mg [Toprol Xl 100 MG] 100 mg PO DAILY 12/31/20 [History Confirmed 01/18/21] Allergies/Adverse Reactions: Allergies Allergy/AdvReac Type Severity Reaction Status Date / Time cyclobenzaprine HCl Allergy Mild Rash Verified 01/18/21 06:38 [From Flexeril] metoclopramide [From Reglan] Allergy Mild Rash Verified 01/18/21 06:38 Sulfa (Sulfonamide Allergy Mild Rash Verified 01/18/21 06:38 Antibiotics) [Sulfa(Sulfonamide Antibiotics)] adhesive Allergy Verified 01/18/21 06:38 nalbuphine HCl [From Nubain] AdvReac Intermediate Stomach Verified 01/18/21 06:38 Cramps ciprofloxacin [From Cipro] AdvReac Mild Verified 01/18/21 06:38 meperidine HCl [From Demerol] AdvReac Mild Vomiting Verified 01/18/21 06:38 - Past Medical History Past Medical History: Yes Neurological History: Migraines ENT History: Cataracts Cardiac History: Coronary Artery Disease, High Cholesterol, Hypertension, Myocardial Infarction (CT) Respiratory History: Asthma, Bronchitis, COPD, Sleep Apnea Endocrine Medical History: Diabetes Type II Musculoskelatal History: Arthritis, Degenerative Disk Disease, Fibromyalgia, Osteoarthritis GI Medical History: Crohns Disease, Diverticulitis, GERD History: No Pertinent History Pyscho-Social History: Anxiety, Depression Reproductive Disorders: No Pertinent History Comment: uti, yeast infection, neuropathy - Past Surgical History Past Surgical History: Yes Neuro Surgical History: No Pertinent History Cardiac History: Cardiac Catheterization Respiratory Surgery: No Pertinent History GI Surgical History: No Pertinent History Genitourinary Surgical Hx: No Pertinent History Musculskeletal Surgical Hx: No Pertinent History Female Surgical History: Dilation & Curettage, Section, Tubal Ligation Other Surgical History: KIDNEY STONE REMOVAL, D&C. heart cath x3, no stents - Social History Smoking Status: Never smoker Exposure to second hand smoke: No Alcohol: None Drug Use: none Significant Family History: diabetes, hypertension - Physical Exam Vital Signs: Vital Signs - 24 hr Temp Pulse Resp BP Pulse Ox 01/18/21 12:00 86 22 183/90 97 01/18/21 10:28 95 H 25 H 173/64 97 01/18/21 09:31 84 14 182/90 93 L 01/18/21 08:06 82 17 181/76 97 01/18/21 07:41 98.2 F 80 18 186/87 96 01/18/21 06:14 98.2 F 86 20 163/86 95 General Appearance: no apparent distress, alert Neurologic Exam: alert, oriented x 3, cooperative, normal mood/affect, nml cerebellar function, nml station & gait, sensation nml, No motor deficits Eye Exam: PERRL/EOMI, eyes nml inspection Ears, Nose, Throat Exam: normal ENT inspection, TMs normal, pharynx normal, moist mucous membranes Neck Exam: normal inspection, non-tender, supple, full range of motion Respiratory Exam: normal breath sounds, lungs clear, No respiratory distress Cardiovascular Exam: regular rate/rhythm, normal heart sounds, normal peripheral pulses Gastrointestinal/Abdomen Exam: soft, normal bowel sounds, No tenderness, No mass Back Exam: normal inspection, normal range of motion, No CVA tenderness, No aaron tebral tenderness Extremity Exam: normal inspection, normal range of motion, pelvis stable Skin Exam: normal color, warm, dry, No rash Lymphatic Exam: No adenopathy Results - Labs Lab/Micro Results: Lab Results-Last 24 Hours 01/18/21 01/18/21 01/18/21 Range/Units 06:51 06:51 06:51 WBC 6.5 (4.0-10.5) K/mm3 RBC 4.02 L (4.1-5.4) M/mm3 Hgb 8.5 L (12.0-16.0) gm/dl Hct 29.4 L (35-47) % MCV 73.1 L (78-100) fl MCH 21.1 L (26-32) pg MCHC 28.9 L (32-36) g/dl RDW 19.0 H (11.5-14.0) % Plt Count 227 (150-450) K/mm3 PT 13.4 H (9.95-12.35) SECONDS INR 1.18 (0.8-3.0) D-Dimer 1867 H* (215-500) ng/mL Sodium 136 L (137-145) mmol/L Potassium 3.7 (3.5-5.1) mmol/L Chloride 103 (98-107) mmol/L Carbon Dioxide 25 (22-30) mmol/L Anion Gap 11.9 (5-15) MEQ/L BUN 10 (7-17) mg/dL Creatinine 0.54 (0.52-1.04) mg/dL Estimated GFR > 60.0 ML/MIN Glucose 293 H (74-106) mg/dL POC Glucometer (74 to 106) mg/dL Lactic Acid (0.4-2.0) Calcium 8.8 (8.4-10.2) mg/dL Total Bilirubin 0.40 (0.2-1.3) mg/dL AST 24 (14-36) U/L ALT 18 (0-35) U/L Alkaline Phosphatase 134 H (38-126) U/L Troponin I (0.000-0.034) ng/mL Serum Total Protein 6.5 (6.3-8.2) g/dL Albumin 3.3 L (3.5-5.0) g/dL Amylase 32 (30-110) U/L Lipase 19 L (23-300) U/L Influenza Type A Ag (NEGATIVE) Influenza Type B Ag (NEGATIVE) RSV (PCR) (Negative) SARS-CoV-2 (PCR) (NEGATIVE) ABO Group Rh Factor Antibody Screen (NEGATIVE) 01/18/21 01/18/21 01/18/21 Range/Units 07:25 08:30 09:49 WBC (4.0-10.5) K/mm3 RBC (4.1-5.4) M/mm3 Hgb (12.0-16.0) gm/dl Hct (35-47) % MCV (78-100) fl MCH (26-32) pg MCHC (32-36) g/dl RDW (11.5-14.0) % Plt Count (150-450) K/mm3 PT (9.95-12.35) SECONDS INR (0.8-3.0) D-Dimer (215-500) ng/mL Sodium (137-145) mmol/L Potassium (3.5-5.1) mmol/L Chloride (98-107) mmol/L Carbon Dioxide (22-30) mmol/L Anion Gap (5-15) MEQ/L BUN (7-17) mg/dL Creatinine (0.52-1.04) mg/dL Estimated GFR ML/MIN Glucose (74-106) mg/dL POC Glucometer 258 H (74 to 106) mg/dL Lactic Acid 1.8 (0.4-2.0) Calcium (8.4-10.2) mg/dL Total Bilirubin (0.2-1.3) mg/dL AST (14-36) U/L ALT (0-35) U/L Alkaline Phosphatase (38-126) U/L Troponin I 0.014 (0.000-0.034) ng/mL Serum Total Protein (6.3-8.2) g/dL Albumin (3.5-5.0) g/dL Amylase (30-110) U/L Lipase (23-300) U/L Influenza Type A Ag (NEGATIVE) Influenza Type B Ag (NEGATIVE) RSV (PCR) (Negative) SARS-CoV-2 (PCR) (NEGATIVE) ABO Group Rh Factor Antibody Screen (NEGATIVE) 01/18/21 01/18/21 01/18/21 Range/Units 10:30 10:55 12:00 WBC (4.0-10.5) K/mm3 RBC (4.1-5.4) M/mm3 Hgb (12.0-16.0) gm/dl Hct (35-47) % MCV (78-100) fl MCH (26-32) pg MCHC (32-36) g/dl RDW (11.5-14.0) % Plt Count (150-450) K/mm3 PT (9.95-12.35) SECONDS INR (0.8-3.0) D-Dimer (215-500) ng/mL Sodium (137-145) mmol/L Potassium (3.5-5.1) mmol/L Chloride (98-107) mmol/L Carbon Dioxide (22-30) mmol/L Anion Gap (5-15) MEQ/L BUN (7-17) mg/dL Creatinine (0.52-1.04) mg/dL Estimated GFR ML/MIN Glucose (74-106) mg/dL POC Glucometer (74 to 106) mg/dL Lactic Acid (0.4-2.0) Calcium (8.4-10.2) mg/dL Total Bilirubin (0.2-1.3) mg/dL AST (14-36) U/L ALT (0-35) U/L Alkaline Phosphatase (38-126) U/L Troponin I < 0.012 (0.000-0.034) ng/mL Serum Total Protein (6.3-8.2) g/dL Albumin (3.5-5.0) g/dL Amylase (30-110) U/L Lipase (23-300) U/L Influenza Type A Ag NEGATIVE (NEGATIVE) Influenza Type B Ag NEGATIVE (NEGATIVE) RSV (PCR) NEGATIVE (Negative) SARS-CoV-2 (PCR) NEGATIVE (NEGATIVE) ABO Group A Rh Factor POSITIVE Antibody Screen POSITIVE (NEGATIVE) - Radiology Impressions Radiology Exams & Impressions: Radiology Procedures Category Date Time Status ABDOMEN AND PELVIS W/0 CONTRAS [CT] Stat Exams 01/18/21 06:50 Completed CHEST WITH CONTRAST [CT] Stat Exams 01/18/21 08:01 Completed Assessment/Plan (1) Colitis Current Visit: Yes Status: Acute Assessment & Plan: Chief Complaint Diagnosis lower GI bleed Allergies Allergy/AdvReac Type Severity Reaction Status Date / Time cyclobenzaprine HCl Allergy Mild Rash Verified 01/18/21 06:38 [From Flexeril] metoclopramide [From Reglan] Allergy Mild Rash Verified 01/18/21 06:38 Sulfa (Sulfonamide Allergy Mild Rash Verified 01/18/21 06:38 Antibiotics) [Sulfa(Sulfonamide Antibiotics)] adhesive Allergy Verified 01/18/21 06:38 nalbuphine HCl [From Nubain] AdvReac Intermediate Stomach Verified 01/18/21 06:38 Cramps ciprofloxacin [From Cipro] AdvReac Mild Verified 01/18/21 06:38 meperidine HCl [From Demerol] AdvReac Mild Vomiting Verified 01/18/21 06:38 Vital Signs (Last 24 hours) Temp Pulse Resp BP Pulse Ox 01/18/21 12:00 86 22 183/90 97 01/18/21 10:28 95 H 25 H 173/64 97 01/18/21 09:31 84 14 182/90 93 L 01/18/21 08:06 82 17 181/76 97 01/18/21 07:41 98.2 F 80 18 186/87 96 01/18/21 06:14 98.2 F 86 20 163/86 95 Current Medications Generic Name Dose Route Start Last Admin Trade Name Freq PRN Reason Stop Dose Admin Acetaminophen 650 mg 01/18/21 12:42 Tylenol 325 Mg PO 02/17/21 12:41 Q4H PRN PRN PAIN AND/OR FEVER Sodium Chloride 1,000 mls @ 100 mls/hr 01/18/21 12:42 Sodium Chloride 0.9% 1000 Ml IV 02/17/21 12:41 .Q10H MITCH Piperacillin Sod/Tazobactam 100 mls @ 200 mls/hr 01/18/21 12:42 Sod 3.375 gm/ Sodium Chloride IV 02/17/21 12:41 Q6HT MITCH Insulin Human Lispro 0 unit 01/18/21 12:42 Humalog SQ 02/17/21 12:41 UD PRN HYPERGLYCEMIA Insulin Human Regular 0 unit 01/18/21 12:42 Humulin R SQ 02/17/21 12:41 UD PRN HYPERGLYCEMIA Methylprednisolone Sodium Succinate 40 mg 01/18/21 12:42 Solu-Medrol 125 Mg IV 02/17/21 12:41 Q6H MITCH Morphine Sulfate 2 mg 01/18/21 12:42 Morphine Sulfate 2 Mg Inj IV 01/23/21 12:41 Q4H PRN PRN PAIN Ondansetron HCl 4 mg 01/18/21 12:42 Zofran 4 Mg/2 Ml Vial IV 02/17/21 12:41 Q6H PRN PRN NAUSEA/VOMITING Pantoprazole Sodium 40 mg 01/19/21 10:00 Protonix 40 Mg Iv IV 02/18/21 09:59 Q24H10 MITCH Discontinued Medications Generic Name Dose Route Start Last Admin Trade Name Freq PRN Reason Stop Dose Admin Hydralazine HCl 10 mg 01/18/21 08:05 01/18/21 09:56 Apresoline 20 Mg/Ml Inj IV 01/18/21 08:06 10 mg STAT ONE Administration Hydralazine HCl Confirm 01/18/21 08:17 Apresoline 20 Mg/Ml Inj Administered 01/18/21 08:18 Dose 20 mg .ROUTE .STK-MED ONE Sodium Chloride 1,000 mls @ 999 mls/hr 01/18/21 06:50 01/18/21 08:17 Sodium Chloride 0.9% 1000 Ml IV 01/18/21 07:50 Infused .Q1H1M STA Infusion Sodium Chloride Confirm 01/18/21 07:15 Sodium Chloride 0.9% 1000 Ml Administered 01/18/21 07:16 Dose 1,000 mls @ ud .ROUTE .STK-MED ONE Piperacillin Sod/Tazobactam 100 mls @ 200 mls/hr 01/18/21 08:38 01/18/21 10:24 Sod 3.375 gm/ Sodium Chloride IV 01/18/21 09:07 200 mls/hr STAT ONE Administration Sodium Chloride Confirm 01/18/21 10:23 Sodium Chloride 100ml Mini-Bag Plus Administered 01/18/21 10:24 Dose 100 mls @ ud IV .STK-MED ONE Methylprednisolone Sodium Succinate 125 mg 01/18/21 08:01 01/18/21 08:19 Solu-Medrol 125 Mg IV 01/18/21 08:02 125 mg STAT ONE Administration Methylprednisolone Sodium Succinate Confirm 01/18/21 08:16 Solu-Medrol 125 Mg Administered 01/18/21 08:17 Dose 125 mg .ROUTE .STK-MED ONE Piperacillin Sod/Tazobactam Sod Confirm 01/18/21 10:22 Zosyn 3.375 Gm Vial Administered 01/18/21 10:23 Dose 3.375 gm IV .STK-MED ONE Intake & Output (Last 24 hours) 01/16/21 01/17/21 01/18/21 01/19/21 11:59 11:59 11:59 11:59 Weight 161.025 kg Laboratory Results (Last 24 hours) 01/18/21 01/18/21 01/18/21 12:00 10:55 10:30 WBC RBC Hgb Hct MCV MCH MCHC RDW Plt Count PT INR D-Dimer Sodium Potassium Chloride Carbon Dioxide Anion Gap BUN Creatinine Estimated GFR Glucose POC Glucometer Lactic Acid Calcium Total Bilirubin AST ALT Alkaline Phosphatase Troponin I < 0.012 Serum Total Protein Albumin Amylase Lipase Influenza Type A Ag NEGATIVE Influenza Type B Ag NEGATIVE RSV (PCR) NEGATIVE SARS-CoV-2 (PCR) NEGATIVE ABO Group A Rh Factor POSITIVE Antibody Screen POSITIVE 01/18/21 01/18/21 01/18/21 09:49 08:30 07:25 WBC RBC Hgb Hct MCV MCH MCHC RDW Plt Count PT INR D-Dimer Sodium Potassium Chloride Carbon Dioxide Anion Gap BUN Creatinine Estimated GFR Glucose POC Glucometer 258 H Lactic Acid 1.8 Calcium Total Bilirubin AST ALT Alkaline Phosphatase Troponin I 0.014 Serum Total Protein Albumin Amylase Lipase Influenza Type A Ag Influenza Type B Ag RSV (PCR) SARS-CoV-2 (PCR) ABO Group Rh Factor Antibody Screen 01/18/21 01/18/21 01/18/21 06:51 06:51 06:51 WBC 6.5 RBC 4.02 L Hgb 8.5 L Hct 29.4 L MCV 73.1 L MCH 21.1 L MCHC 28.9 L RDW 19.0 H Plt Count 227 PT 13.4 H INR 1.18 D-Dimer 1867 H* Sodium 136 L Potassium 3.7 Chloride 103 Carbon Dioxide 25 Anion Gap 11.9 BUN 10 Creatinine 0.54 Estimated GFR > 60.0 Glucose 293 H POC Glucometer Lactic Acid Calcium 8.8 Total Bilirubin 0.40 AST 24 ALT 18 Alkaline Phosphatase 134 H Troponin I Serum Total Protein 6.5 Albumin 3.3 L Amylase 32 Lipase 19 L Influenza Type A Ag Influenza Type B Ag RSV (PCR) SARS-CoV-2 (PCR) ABO Group Rh Factor Antibody Screen Orders (Last 24 hours) Category Date Time Status Bedrest ROUTINE Activity 01/18/21 12:42 Active Up With Assistance ROUTINE Activity 01/18/21 12:42 Active Admit as Inpatient ROUTINE Care 01/18/21 12:42 Active Code Status Order ROUTINE Care 01/18/21 12:42 Active Code Status Order ROUTINE Care 01/18/21 12:42 Active EKG-ER Only STAT Care 01/18/21 08:21 Completed Fall Protocol ROUTINE Care 01/18/21 12:42 Active IV Care Q6H Care 01/18/21 12:42 Active IV Care Q6H Care 01/18/21 12:42 Active IV Insertion STAT Care 01/18/21 06:50 Completed POCT Glucose Check ACHS Care 01/18/21 12:42 Active Antonio Reza, Apply ROUTINE Care 01/18/21 12:42 Active Weight,Daily 0600 Care 01/18/21 12:42 Active ABDOMEN AND PELVIS W/0 CONTRAS [CT] Stat Exams 01/18/21 06:50 Completed CHEST WITH CONTRAST [CT] Stat Exams 01/18/21 08:01 Completed AMYLASE Stat Lab 01/18/21 06:51 Completed CBC W DIFF AM.LAB Lab 01/19/21 04:00 Ordered CBC W DIFF Stat Lab 01/18/21 06:51 Completed CMP AM.LAB Lab 01/19/21 04:00 Ordered CMP Stat Lab 01/18/21 06:51 Completed D-DIMER QUANTITATIVE Stat Lab 01/18/21 06:51 Completed LIPASE Stat Lab 01/18/21 06:51 Completed Lactic Acid Stat Lab 01/18/21 07:25 Completed Manual Differential NC Stat Lab 01/18/21 06:51 Completed POCT GLUCOSE Stat Lab 01/18/21 09:49 Completed PROTIME WITH INR Stat Lab 01/18/21 06:51 Completed TROPONIN Q3H Lab 01/18/21 08:30 Completed TROPONIN Q3H Lab 01/18/21 12:00 Completed TROPONIN Q3H Lab 01/18/21 14:30 Ordered TROPONIN Q3H Lab 01/18/21 17:30 Ordered TROPONIN Q3H Lab 01/18/21 20:30 Ordered TROPONIN Q3H Lab 01/18/21 23:30 Ordered TYPE AND SCREEN Stat Lab 01/18/21 10:30 Completed Acetaminophen 325 mg [Tylenol 325 mg] Med 01/18/21 12:42 Active 650 mg PO Q4H PRN PRN HydrALAzine HCL 20 MG INJ [Apresoline 20 mg/ml Inj Med 01/18/21 08:05 Discontinued *] 10 mg IV STAT ONE HydrALAzine HCL 20 MG INJ [Apresoline 20 mg/ml Inj Med 01/18/21 08:17 Discontinued *] 20 mg .ROUTE .STK-MED ONE Insulin Lispro [Humalog] Med 01/18/21 12:42 Ordered See Dose Instructions SQ UD PRN Insulin Regular, Human [Humulin R] Med 01/18/21 12:42 Ordered See Dose Instructions SQ UD PRN Methylprednis Sod Succ 125 mg* [solu-MEDROL 125 MG] Med 01/18/21 08:16 Discontinued 125 mg .ROUTE .STK-MED ONE Methylprednis Sod Succ 125 mg* [solu-MEDROL 125 MG] Med 01/18/21 08:01 Discontinued 125 mg IV STAT ONE Methylprednis Sod Succ 125 mg* [solu-MEDROL 125 MG] Med 01/18/21 12:42 Ordered 40 mg IV Q6H Morphine Sulfate 2 mg Inj Med 01/18/21 12:42 Active 2 mg IV Q4H PRN PRN NaCl 0.9% 100 ml Mini-Bag Plus [Sodium Chloride 100ML Med 01/18/21 10:23 Discontinued MINI-BAG PLUS] 100 ml IV UD NaCl 0.9% 1000 ml [Sodium Chloride 0.9% 1000 ML] 1,000 Med 01/18/21 07:15 Discontinued ml .ROUTE UD NaCl 0.9% 1000 ml [Sodium Chloride 0.9% 1000 ML] 1,000 Med 01/18/21 12:42 Active ml IV 100 mls/hr NaCl 0.9% 1000 ml [Sodium Chloride 0.9% 1000 ML] 1,000 Med 01/18/21 06:50 Discontinued ml IV 999 mls/hr Ondansetron HCl 4 mg/2 ml [Zofran 4 MG/2 ML VIAL] Med 01/18/21 12:42 Ordered 4 mg IV Q6H PRN PRN Pantoprazole 40 mg [Protonix 40 mg IV] Med 01/19/21 10:00 Ordered 40 mg IV Q24H10 Piperacillin/Tazobactam 3.375G [Zosyn 3.375 GM Vial] Med 01/18/21 10:22 Discontinued 3.375 gm IV .STK-MED ONE Piperacillin/Tazobactam 3.375G [Zosyn 3.375 GM Vial] 3. Med 01/18/21 12:42 Ordered 375 gm NaCl 0.9% 100 ml Mini-Bag Plus [Sodium Chloride 100ML MINI-BAG PLUS] 100 ml IV Q6HT Piperacillin/Tazobactam 3.375G [Zosyn 3.375 GM Vial] 3. Med 01/18/21 08:38 Discontinued 375 gm NaCl 0.9% 100 ml Mini-Bag Plus [Sodium Chloride 100ML MINI-BAG PLUS] 100 ml IV STAT Transfer Order Routine Transfer 01/18/21 Completed Code(s): K52.9 - NONINFECTIVE GASTROENTERITIS AND COLITIS, UNSPECIFIED (2) Uncontrolled hypertension Current Visit: Yes Status: Acute Code(s): I10 - ESSENTIAL (PRIMARY) HYPERTENSION (3) Abdominal pain Current Visit: No Status: Acute Code(s): R10.9 - UNSPECIFIED ABDOMINAL PAIN
[2021-01-18 12:59] LABS: Eosinophil 3 % (0.00-3.0); Lymphocytes 28 % (24-44); Monocyte 1 % (0.0-12.0); Neutrophils 68 % (36.0-66.0); Total Cells Counted 100
[2021-01-18 13:00] LABS: ANISOCYTOSIS 1+; Platelet Estimate NORMAL (NORMAL); Poikilocytosis 1+; Polychromasia 1+
[2021-01-18] MEDS ORDERED: PROTONIX 40 MG IV IV SCH (13:00)
[2021-01-18] MEDS: Sodium Chloride 0.9% 1000 ML 1,000 ML IV SCH ×2 (13:16→23:46)
[2021-01-18] MEDS: solu-MEDROL 40 MG IV SCH ×3 (13:22→23:46)
[2021-01-18] MEDS ORDERED: ANTIVERT 25 MG PO PRN (15:09)
[2021-01-18] MEDS ORDERED: Ventolin Hfa MDI IH PRN (15:09)
[2021-01-18] MEDS ORDERED: VENTOLIN COMMON CANISTER IH PRN (15:18)
[2021-01-18] MEDS ORDERED: MEDICATION INTERVENTION PO SCH (15:30)
[2021-01-18] MEDS: Zocor 10MG PO SCH (15:33)
[2021-01-18] MEDS: Imdur 60MG PO SCH (15:33)
[2021-01-18] MEDS: Paxil 20 MG PO SCH (15:34)
[2021-01-18] MEDS: Cymbalta 30 MG Capsule PO SCH (15:35)
[2021-01-18] MEDS: SYNTHROID 25 MCG PO SCH (15:35)
[2021-01-18] MEDS: Toprol Xl 100 MG PO SCH (15:35)
[2021-01-18] MEDS: HUMALOG SQ PRN ×2 (15:38→21:50)
[2021-01-18] MEDS: PERCOCET TABLET 5/325MG PO PRN ×2 (15:43→22:04)
[2021-01-18] MEDS: HUMALOG SQ SCH (17:09)
[2021-01-18] MEDS: Zosyn 3.375 GM Vial 3.375 GM in Sodium Chloride 100ML MINI-BAG PLUS 100 ML IV SCH ×2 (19:00→23:47)
[2021-01-18] MEDS: Protonix 40MG Tablet PO SCH (21:49)
[2021-01-18] MEDS: Lantus Insulin SQ SCH (21:50)
[2021-01-18] MEDS: Abilify 10 MG PO SCH (21:50)
[2021-01-18] MEDS ORDERED: IMODIUM 2 MG PO ONE (21:56)
[2021-01-18] MEDS ORDERED: NON-FORMULARY ITEM (Omeprazole 20 Mg [Prilosec 20 Mg] 20 MG) PO SCH (22:00)
[2021-01-18] MEDS ORDERED: NON-FORMULARY ITEM (Metformin Hcl 1000 Mg [Glucophage 1000 Mg] 1,000 MG) PO SCH (22:00)
[2021-01-18] MEDS ORDERED: MESALAMINE 500 MG PO SCH (22:00)
[2021-01-18] MEDS ORDERED: INSULIN GLARGINE HUM REC ANLOG 36 UNIT SQ SCH (22:00)
[2021-01-19] MEDS: Zosyn 3.375 GM Vial 3.375 GM in Sodium Chloride 100ML MINI-BAG PLUS 100 ML IV SCH ×4 (05:39→23:44)
[2021-01-19] MEDS: solu-MEDROL 40 MG IV SCH ×4 (05:39→23:44)
[2021-01-19 06:07] LABS: Mean Cell Volume 73.7 fl (78-100); Mean Corpuscular Hemoglobin 21.1 pg (26-32); Mean Corpuscular Hgb Concent. 28.6 g/dl (32-36); Platelet Count 257 K/mm3 (150-450); Red Cell Distribution Width 19.1 % (11.5-14.0); White Blood Count 5.9 K/mm3 (4.0-10.5)
[2021-01-19 06:19] LABS: ALBUMIN 3.4 g/dL (3.5-5.0); ALKALINE PHOSPHATASE 123 U/L (38-126); BLOOD UREA NITROGEN 15 mg/dL (7-17); CHLORIDE 103 mmol/L (98-107); Calcium 8.4 mg/dL (8.4-10.2); Carbon Dioxide 21 mmol/L (22-30); Creatinine 1 0.72 mg/dL (0.52-1.04); EST GLOMERULAR FILTRATION RATE > 60.0 ML/MIN; Glucose 472 mg/dL (74-106); Potassium 4.3 mmol/L (3.5-5.1); SGOT/AST 22 U/L (14-36); SGPT/ALT 19 U/L (0-35); SODIUM 132 mmol/L (137-145); Total Protein 6.5 g/dL (6.3-8.2)
[2021-01-19 07:29] LABS: BAND 6 % (0.0-2.0); Lymphocytes 6 % (24-44); Monocyte 1 % (0.0-12.0); Neutrophils 87 % (36.0-66.0); Total Cells Counted 100
[2021-01-19 07:30] LABS: Hypochromia 2+; Microcytosis 1+; Platelet Estimate NORMAL (NORMAL); Polychromasia 1+
[2021-01-19 07:31] LABS: ANISOCYTOSIS 1+
[2021-01-19] MEDS ORDERED: INSULIN GLARGINE HUM REC ANLOG 36 UNIT SQ SCH (08:00)
[2021-01-19] MEDS: Lantus Insulin SQ SCH ×2 (08:31→21:34)
[2021-01-19] MEDS: HUMALOG SQ SCH ×3 (08:32→17:59)
[2021-01-19] MEDS: HUMALOG SQ PRN ×3 (08:32→17:59)
--- NOTE | 2021-01-19 08:56 | PCM.NOTE ---
Date and Time: 01/19/21 0854 Subjective Assessment: doing better today, last 24 hours events noted. - Review of Systems Constitutional: No Fever, No Chills Eyes: No Symptoms Ears, Nose, & Throat: No Symptoms Respiratory: No Cough, No Short Of Breath Cardiac: No Chest Pain, No Edema, No Syncope Abdominal/Gastrointestinal: No Abdominal Pain, No Nausea, No Vomiting, No Diarrhea Genitourinary Symptoms: No Dysuria Musculoskeletal: No Back Pain, No Neck Pain Skin: No Rash Neurological: No Dizziness, No Focal Weakness, No Sensory Changes Psychological: No Symptoms Endocrine: No Symptoms Hematologic/Lymphatic: No Symptoms Immunological/Allergic: No Symptoms Objective Exam General Appearance: no apparent distress, alert Neurologic Exam: alert, oriented x 3, cooperative, normal mood/affect, nml cerebellar function, sensation nml, No motor deficits Skin Exam: normal color, warm, dry Eye Exam: PERRL, EOMI, eyes nml inspection Ears, Nose, Throat Exam: normal ENT inspection, pharynx normal, moist mucous membranes Neck Exam: normal inspection, non-tender, supple, full range of motion Respiratory Exam: normal breath sounds, lungs clear, No respiratory distress Cardiovascular Exam: regular rate/rhythm, normal heart sounds Gastrointestinal/Abdomen Exam: soft, No tenderness, No mass Extremity Exam: normal inspection, normal range of motion Back Exam: normal inspection, normal range of motion, No CVA tenderness, No vertebral tenderness Pelvic Exam: deferred Rectal Exam: deferred OBJECTIVE DATA Vital Signs: Vital Signs - 24 hr Temp Pulse Resp BP Pulse Ox 01/19/21 08:00 97.7 F 75 18 132/69 96 01/19/21 06:52 71 20 94 L 01/19/21 04:00 98.0 F 76 22 175/81 97 01/18/21 23:44 97.8 F 76 24 154/67 97 01/18/21 20:01 102 H 22 98 01/18/21 19:37 98.5 F 91 H 28 H 158/74 97 01/18/21 16:00 97.3 F 94 H 175/84 94 L 01/18/21 15:54 102 H 20 98 01/18/21 14:37 98.2 F 86 22 142/64 97 01/18/21 12:00 86 22 183/90 97 01/18/21 10:28 95 H 25 H 173/64 97 01/18/21 09:31 84 14 182/90 93 L Pain Assessment - Last Documented Pain Intensity 3 Pain Scale Used 0-10 Pain Scale Intake and Output: Intake & Output 01/16/21 01/17/21 01/18/21 01/19/21 11:59 11:59 11:59 11:59 Intake Total 3193 Balance 3193 Weight 161.025 kg 159.8 kg Lab Results: Lab Results-Last 24 Hours 01/18/21 01/18/21 01/18/21 Range/Units 06:51 08:30 09:49 WBC (4.0-10.5) K/mm3 RBC (4.1-5.4) M/mm3 Hgb (12.0-16.0) gm/dl Hct (35-47) % MCV (78-100) fl MCH (26-32) pg MCHC (32-36) g/dl RDW (11.5-14.0) % Plt Count (150-450) K/mm3 Segmented Neutrophils 68 H (36.0-66.0) % Band Neutrophils (0.0-2.0) % Lymphocytes (Manual) 28 (24-44) % Monocytes (Manual) 1 (0.0-12.0) % Eosinophils (Manual) 3 (0.00-3.0) % Hypochromia Platelet Estimate NORMAL (NORMAL) RBC Morphology ABNORMAL Polychromasia 1+ Poikilocytosis 1+ Anisocytosis 1+ Microcytosis Sodium (137-145) mmol/L Potassium (3.5-5.1) mmol/L Chloride (98-107) mmol/L Carbon Dioxide (22-30) mmol/L Anion Gap (5-15) MEQ/L BUN (7-17) mg/dL Creatinine (0.52-1.04) mg/dL Estimated GFR ML/MIN Glucose (74-106) mg/dL POC Glucometer 258 H (74 to 106) mg/dL Calcium (8.4-10.2) mg/dL Total Bilirubin (0.2-1.3) mg/dL AST (14-36) U/L ALT (0-35) U/L Alkaline Phosphatase (38-126) U/L Troponin I 0.014 (0.000-0.034) ng/mL Serum Total Protein (6.3-8.2) g/dL Albumin (3.5-5.0) g/dL Influenza Type A Ag (NEGATIVE) Influenza Type B Ag (NEGATIVE) RSV (PCR) (Negative) SARS-CoV-2 (PCR) (NEGATIVE) ABO Group Rh Factor Antibody Screen (NEGATIVE) 01/18/21 01/18/21 01/18/21 Range/Units 10:30 10:55 12:00 WBC (4.0-10.5) K/mm3 RBC (4.1-5.4) M/mm3 Hgb (12.0-16.0) gm/dl Hct (35-47) % MCV (78-100) fl MCH (26-32) pg MCHC (32-36) g/dl RDW (11.5-14.0) % Plt Count (150-450) K/mm3 Segmented Neutrophils (36.0-66.0) % Band Neutrophils (0.0-2.0) % Lymphocytes (Manual) (24-44) % Monocytes (Manual) (0.0-12.0) % Eosinophils (Manual) (0.00-3.0) % Hypochromia Platelet Estimate (NORMAL) RBC Morphology Polychromasia Poikilocytosis Anisocytosis Microcytosis Sodium (137-145) mmol/L Potassium (3.5-5.1) mmol/L Chloride (98-107) mmol/L Carbon Dioxide (22-30) mmol/L Anion Gap (5-15) MEQ/L BUN (7-17) mg/dL Creatinine (0.52-1.04) mg/dL Estimated GFR ML/MIN Glucose (74-106) mg/dL POC Glucometer (74 to 106) mg/dL Calcium (8.4-10.2) mg/dL Total Bilirubin (0.2-1.3) mg/dL AST (14-36) U/L ALT (0-35) U/L Alkaline Phosphatase (38-126) U/L Troponin I < 0.012 (0.000-0.034) ng/mL Serum Total Protein (6.3-8.2) g/dL Albumin (3.5-5.0) g/dL Influenza Type A Ag NEGATIVE (NEGATIVE) Influenza Type B Ag NEGATIVE (NEGATIVE) RSV (PCR) NEGATIVE (Negative) SARS-CoV-2 (PCR) NEGATIVE (NEGATIVE) ABO Group A Rh Factor POSITIVE Antibody Screen POSITIVE (NEGATIVE) 01/18/21 01/18/21 01/18/21 Range/Units 14:35 16:48 17:15 WBC (4.0-10.5) K/mm3 RBC (4.1-5.4) M/mm3 Hgb (12.0-16.0) gm/dl Hct (35-47) % MCV (78-100) fl MCH (26-32) pg MCHC (32-36) g/dl RDW (11.5-14.0) % Plt Count (150-450) K/mm3 Segmented Neutrophils (36.0-66.0) % Band Neutrophils (0.0-2.0) % Lymphocytes (Manual) (24-44) % Monocytes (Manual) (0.0-12.0) % Eosinophils (Manual) (0.00-3.0) % Hypochromia Platelet Estimate (NORMAL) RBC Morphology Polychromasia Poikilocytosis Anisocytosis Microcytosis Sodium (137-145) mmol/L Potassium (3.5-5.1) mmol/L Chloride (98-107) mmol/L Carbon Dioxide (22-30) mmol/L Anion Gap (5-15) MEQ/L BUN (7-17) mg/dL Creatinine (0.52-1.04) mg/dL Estimated GFR ML/MIN Glucose (74-106) mg/dL POC Glucometer 498 H (74 to 106) mg/dL Calcium (8.4-10.2) mg/dL Total Bilirubin (0.2-1.3) mg/dL AST (14-36) U/L ALT (0-35) U/L Alkaline Phosphatase (38-126) U/L Troponin I < 0.012 < 0.012 (0.000-0.034) ng/mL Serum Total Protein (6.3-8.2) g/dL Albumin (3.5-5.0) g/dL Influenza Type A Ag (NEGATIVE) Influenza Type B Ag (NEGATIVE) RSV (PCR) (Negative) SARS-CoV-2 (PCR) (NEGATIVE) ABO Group Rh Factor Antibody Screen (NEGATIVE) 01/18/21 01/18/21 01/19/21 Range/Units 20:15 20:59 05:20 WBC 5.9 (4.0-10.5) K/mm3 RBC 3.80 L (4.1-5.4) M/mm3 Hgb 8.0 L (12.0-16.0) gm/dl Hct 28.0 L (35-47) % MCV 73.7 L (78-100) fl MCH 21.1 L (26-32) pg MCHC 28.6 L (32-36) g/dl RDW 19.1 H (11.5-14.0) % Plt Count 257 (150-450) K/mm3 Segmented Neutrophils 87 H (36.0-66.0) % Band Neutrophils 6 H (0.0-2.0) % Lymphocytes (Manual) 6 L (24-44) % Monocytes (Manual) 1 (0.0-12.0) % Eosinophils (Manual) (0.00-3.0) % Hypochromia 2+ Platelet Estimate NORMAL (NORMAL) RBC Morphology ABNORMAL Polychromasia 1+ Poikilocytosis Anisocytosis 1+ Microcytosis 1+ Sodium (137-145) mmol/L Potassium (3.5-5.1) mmol/L Chloride (98-107) mmol/L Carbon Dioxide (22-30) mmol/L Anion Gap (5-15) MEQ/L BUN (7-17) mg/dL Creatinine (0.52-1.04) mg/dL Estimated GFR ML/MIN Glucose (74-106) mg/dL POC Glucometer 412 H (74 to 106) mg/dL Calcium (8.4-10.2) mg/dL Total Bilirubin (0.2-1.3) mg/dL AST (14-36) U/L ALT (0-35) U/L Alkaline Phosphatase (38-126) U/L Troponin I < 0.012 (0.000-0.034) ng/mL Serum Total Protein (6.3-8.2) g/dL Albumin (3.5-5.0) g/dL Influenza Type A Ag (NEGATIVE) Influenza Type B Ag (NEGATIVE) RSV (PCR) (Negative) SARS-CoV-2 (PCR) (NEGATIVE) ABO Group Rh Factor Antibody Screen (NEGATIVE) 01/19/21 01/19/21 Range/Units 05:20 07:04 WBC (4.0-10.5) K/mm3 RBC (4.1-5.4) M/mm3 Hgb (12.0-16.0) gm/dl Hct (35-47) % MCV (78-100) fl MCH (26-32) pg MCHC (32-36) g/dl RDW (11.5-14.0) % Plt Count (150-450) K/mm3 Segmented Neutrophils (36.0-66.0) % Band Neutrophils (0.0-2.0) % Lymphocytes (Manual) (24-44) % Monocytes (Manual) (0.0-12.0) % Eosinophils (Manual) (0.00-3.0) % Hypochromia Platelet Estimate (NORMAL) RBC Morphology Polychromasia Poikilocytosis Anisocytosis Microcytosis Sodium 132 L (137-145) mmol/L Potassium 4.3 (3.5-5.1) mmol/L Chloride 103 (98-107) mmol/L Carbon Dioxide 21 L (22-30) mmol/L Anion Gap 12.0 (5-15) MEQ/L BUN 15 (7-17) mg/dL Creatinine 0.72 (0.52-1.04) mg/dL Estimated GFR > 60.0 ML/MIN Glucose 472 H (74-106) mg/dL POC Glucometer 451 H (74 to 106) mg/dL Calcium 8.4 (8.4-10.2) mg/dL Total Bilirubin 0.50 (0.2-1.3) mg/dL AST 22 (14-36) U/L ALT 19 (0-35) U/L Alkaline Phosphatase 123 (38-126) U/L Troponin I (0.000-0.034) ng/mL Serum Total Protein 6.5 (6.3-8.2) g/dL Albumin 3.4 L (3.5-5.0) g/dL Influenza Type A Ag (NEGATIVE) Influenza Type B Ag (NEGATIVE) RSV (PCR) (Negative) SARS-CoV-2 (PCR) (NEGATIVE) ABO Group Rh Factor Antibody Screen (NEGATIVE) Radiology Exams: Radiology Procedures Category Date Time Status ABDOMEN AND PELVIS W/0 CONTRAS [CT] Stat Exams 01/18/21 06:50 Completed CHEST WITH CONTRAST [CT] Stat Exams 01/18/21 08:[address]/ABDOMEN AND PELVIS W/0 CONTRAS Indication: Rectal bleeding. History of Crohn's disease. Multiple contiguous axial images obtained through the abdomen and pelvis without contrast. Comparison: January 12, 2021. Lung bases again demonstrates mild dependent atelectasis. Heart is not enlarged. Noncontrasted stomach and bowel loops remain nonobstructed. Normal ileocecal junction. Appendix not seen. Distal transverse, descending, and proximal sigmoid colon now demonstrates mild wall thickening with minimal stranding favoring colitis. No free fluid/air. Gallbladder moderately distended without gallstones or biliary distention. Stable bilateral renal cysts. Remaining liver, gallbladder, pancreas, spleen, adrenal glands, kidneys, ureters, bladder, and uterus appear unremarkable for noncontrast exam. Stable minimal aortoiliac calcifications without AAA. Impression: 1. New mild left hemicolon colitis as detailed. No complications. 2. Distended gallbladder without gallstones. 3. Stable bilateral renal cysts. CT/CHEST WITH CONTRAST Indication: Short of breath. Elevated d-dimer. Multiple contiguous images obtained through the chest using 100 cc Isovue 370 contrast and PE protocol. Comparison: December 20, 2020. There is good opacification of the pulmonary arteries to include the lobar and segmental branches. No pulmonary embolus. Heart is borderline enlarged. Aorta is normal in course and caliber. No pathologic mediastinal/hilar lymphadenopathy. Lungs again demonstrates mild bilateral dependent atelectasis. Stable benign medial right upper lobe and peripheral right middle lobe noncalcified micronodules. No new pulmonary mass, infiltrate, or effusion. Bony thorax intact with minimal degenerative changes throughout the spine. CT abdomen/pelvis reported separately. Impression: 1. Negative pulmonary embolus. No acute cardiopulmonary abnormalities. 2. Stable benign right upper/right middle lobe noncalcified micronodules. Assessment/Plan (1) Colitis Current Visit: Yes Status: Acute Assessment & Plan: Left hemicolon colitis Code(s): K52.9 - NONINFECTIVE GASTROENTERITIS AND COLITIS, UNSPECIFIED (2) Uncontrolled hypertension Current Visit: Yes Status: Acute Code(s): I10 - ESSENTIAL (PRIMARY) HYPERTENSION (3) Abdominal pain Current Visit: Yes Status: Acute Qualifiers: Abdominal location: left lower quadrant Qualified Code(s): R10.32 - Left lower quadrant pain Code(s): R10.9 - UNSPECIFIED ABDOMINAL PAIN
[2021-01-19] MEDS: Protonix 40MG Tablet PO SCH ×2 (09:38→21:33)
[2021-01-19] MEDS: Toprol Xl 100 MG PO SCH (09:38)
[2021-01-19] MEDS: Zocor 10MG PO SCH (09:38)
[2021-01-19] MEDS: SYNTHROID 25 MCG PO SCH (09:38)
[2021-01-19] MEDS: Cymbalta 30 MG Capsule PO SCH (09:38)
[2021-01-19] MEDS: Imdur 60MG PO SCH (09:38)
[2021-01-19] MEDS: Paxil 20 MG PO SCH (09:39)
[2021-01-19] MEDS ORDERED: NON-FORMULARY ITEM (Paroxetine Hcl [Paxil] 10 MG) PO SCH (10:00)
[2021-01-19] MEDS ORDERED: VITAMIN D2 PO SCH (10:00)
[2021-01-19] MEDS ORDERED: NON-FORMULARY ITEM (Duloxetine Hcl [Duloxetine Hcl] 60 MG) PO SCH (10:00)
[2021-01-19] MEDS: Sodium Chloride 0.9% 1000 ML 1,000 ML IV SCH (12:32)
[2021-01-19] MEDS: Abilify 10 MG PO SCH (21:34)
[2021-01-20] MEDS: Sodium Chloride 0.9% 1000 ML 1,000 ML IV SCH ×2 (01:08→10:31)
[2021-01-20] MEDS: PERCOCET TABLET 5/325MG PO PRN (03:15)
[2021-01-20 05:33] LABS: Absolute Neutrophil Ct (ANC) 7.36 (1.4-6.9); BASOPHIL % 0.2 % (0.0-0.4); Basophil (Absolute #) 0.02 (0-0.4); Eosinophil (Absolute #) 0 (0-0.5); Hemoglobin 7.2 gm/dl (12.0-16.0); Lymphocyte (Absolute #) 0.65 (1.0-4.6); Lymphocytes % 7.8 % (24.0-44.0); Mean Cell Volume 74.2 fl (78-100); Mean Corpuscular Hemoglobin 19.8 pg (26-32); Mean Corpuscular Hgb Concent. 26.7 g/dl (32-36); Monocyte (Absolute #) 0.33 (0.0-1.3); Monocytes % 3.9 % (0.0-12.0); Neutrophil % 88.1 % (36.0-66.0); Platelet Count 245 K/mm3 (150-450); Red Blood Count 3.64 M/mm3 (4.1-5.4); Red Cell Distribution Width 19.1 % (11.5-14.0); White Blood Count 8.4 K/mm3 (4.0-10.5)
[2021-01-20 05:48] LABS: ALBUMIN 3.3 g/dL (3.5-5.0); ALKALINE PHOSPHATASE 108 U/L (38-126); ANION GAP 17.7 MEQ/L (5-15); BLOOD UREA NITROGEN 18 mg/dL (7-17); CHLORIDE 102 mmol/L (98-107); Calcium 7.6 mg/dL (8.4-10.2); Carbon Dioxide 18 mmol/L (22-30); Creatinine 1 0.61 mg/dL (0.52-1.04); EST GLOMERULAR FILTRATION RATE > 60.0 ML/MIN; Glucose 356 mg/dL (74-106); Potassium 4.5 mmol/L (3.5-5.1); SGOT/AST 67 U/L (14-36); SGPT/ALT 42 U/L (0-35); SODIUM 133 mmol/L (137-145); Total Protein 6.3 g/dL (6.3-8.2)
[2021-01-20] MEDS: solu-MEDROL 40 MG IV SCH (06:32)
[2021-01-20] MEDS: Zosyn 3.375 GM Vial 3.375 GM in Sodium Chloride 100ML MINI-BAG PLUS 100 ML IV SCH ×4 (06:32→23:58)
[2021-01-20] MEDS: TYLENOL 325 MG PO PRN ×2 (06:42→20:12)
[2021-01-20 07:31] LABS: Slide Review 1 YES
[2021-01-20] MEDS: Lantus Insulin SQ SCH ×2 (08:15→21:39)
[2021-01-20] MEDS: HUMALOG SQ SCH ×3 (08:15→17:19)
[2021-01-20 09:58] LABS: CROSS MATCH (PRBC) COMPATIBLE (COMPATIBLE)
[2021-01-20] MEDS ORDERED: FEOSOL 325 MG PO SCH (10:00)
[2021-01-20] MEDS ORDERED: DELTASONE 20 MG PO SCH (10:00)
[2021-01-20] MEDS: Cymbalta 30 MG Capsule PO SCH (10:27)
[2021-01-20] MEDS: Paxil 20 MG PO SCH (10:27)
[2021-01-20] MEDS: Zocor 10MG PO SCH (10:28)
[2021-01-20] MEDS: Toprol Xl 100 MG PO SCH (10:28)
[2021-01-20] MEDS: Glucophage 500 MG PO SCH ×2 (10:29→17:20)
[2021-01-20] MEDS: Imdur 60MG PO SCH (10:29)
[2021-01-20] MEDS: Protonix 40MG Tablet PO SCH ×2 (10:29→21:38)
[2021-01-20] MEDS: SYNTHROID 25 MCG PO SCH (10:30)
[2021-01-20] MEDS: Robaxin 500 MG PO PRN ×2 (10:30→17:41)
[2021-01-20] MEDS: HUMALOG SQ PRN ×2 (12:16→17:20)
[2021-01-20] MEDS: IMODIUM 2 MG PO PRN (12:17)
[2021-01-20 19:10] LABS: Hematocrit 31.2 % (35-47); Hemoglobin 9.2 gm/dl (12.0-16.0)
[2021-01-20] MEDS: Abilify 10 MG PO SCH (21:39)
[2021-01-20] MEDS: HYDROCODONE-ACETAMIN 10-325 MG PO PRN (22:09)
[2021-01-21] MEDS: IMODIUM 2 MG PO PRN (03:06)
[2021-01-21] MEDS: Zosyn 3.375 GM Vial 3.375 GM in Sodium Chloride 100ML MINI-BAG PLUS 100 ML IV SCH (04:55)
[2021-01-21] MEDS: HYDROCODONE-ACETAMIN 10-325 MG PO PRN (04:55)
[2021-01-21] MEDS: Sodium Chloride 0.9% 1000 ML 1,000 ML IV SCH (04:56)
[2021-01-21 07:48] VITALS: BP 181/84; PULSE 62; O2SAT 94
--- NOTE | 2021-01-21 08:27 | DS ---
DISCHARGE DIAGNOSES: 1) ACUTE EXACERBATION OF ULCERATIVE COLITIS. 2) IRON DEFICIENCY AND BLOOD LOSS ANEMIA. HOSPITAL COURSE: The patient is a 60 year-old white female who presented to the emergency room with complaints of abdominal pain for the past two or three days particularly in the left lower quadrant. She had increase in her rectal bleeding from her ulcerative colitis. The patient has been on Pentasa for this. The patient's other problems including her anxiety and depression issues. She is also diabetic and morbidly obese. The patient was admitted to the hospital on IV steroids. For the colitis issue she was also given Zosyn for potential infection of bacterial nature and IV fluids. The patient did improve somewhat with the IV steroids. Her hemoglobin had dropped down to 7.2 and therefore was transfused 2 units of blood on 01/20/2021 which brought her hemoglobin up to 7.2. Iron level showed her iron to be very low and she was started also on iron p.o. The patient improved to the point she felt like she was almost back to her baseline by 01/21/2021 and was discharged home on this day. She was discharged home on prednisone at 30 mg a day which will be modified on a taper when we will see her in the office next week. She was given 325 mg of iron due to her iron deficiency issue and Augment 875 twice a day for an additional seven days for potential for bacterial infection exacerbating her colitis. The patient's laboratory studies otherwise showed her to have ProBNP level slightly elevated at 1,000. We therefore ordered echocardiogram to be sure that she was not having any issues with decreased ejection fraction. Her iron level again was noted to be less than 10. Her white count was 8,400. Her PLT count is 245,000 on 01/20/2021. She had also glucose of 356 on that day with a BUN of 18 and creatinine of 0.61. Her sodium was slightly low at 133. Her CO2 was slightly low at 18. Liver enzymes were minimally elevated with AST 67 and ALT 42. On 01/19/2021, she did have 6 bands and 87 polys which was reason for continuing her antibiotics. She had CT scan performed on admission showed new mild left hemicolon colitis and distended gallbladder without gallstones. Again, discharge plan is for the patient to return home on prednisone 30 mg a day, for the colitis flare up Augmentin 875 twice a day as well and iron 325 mg daily for her iron deficiency issue. She will continue on her usual home medications otherwise which includes Metformin 1,000 mg b.i.d., methocarbamol 500 mg q.i.d. PRN for back spasms, metoprolol XL 100 mg daily, omeprazole 20 mg b.i.d., paroxetine 10 mg a day.
== END 2021-01-21 08:55 | disposition home or self-care (01) | DRG 386 ==
LOC: ED 05:45 → MED SURG 12:27
PROVIDERS: ADMIT General Practice; ATTEND Family Medicine
DX: K51.90 Ulcerative colitis, unspecified, without complications (principal); D62 Acute posthemorrhagic anemia; D50.9 Iron deficiency anemia, unspecified; E11.9 Type 2 diabetes mellitus without complications; F41.8 Other specified anxiety disorders; I10 Essential (primary) hypertension; Z86.79 Personal history of other diseases of the circulatory system; J44.9 Chronic obstructive pulmonary disease, unspecified; E03.9 Hypothyroidism, unspecified; Z79.899 Other long term (current) drug therapy; R10.9 Unspecified abdominal pain; Z20.828 Contact with and (suspected) exposure to other viral communicable diseases
CPT/HCPCS: 0241U; 36000; 36415; 71260; 74176; 80053; 82150; 82947; 83540; 83605; 83690; 83880; 84484; 85014; 85018; 85025; 85379; 85610; 86850; 86870; 86900; 86901; 86922; 93005; 93306; 94640; 94760; 96360; 96365; 96374; 96375; 99285; P9016; J0360; J1817; J2920; J2930; A9270-GY

== ENCOUNTER 2021-01-31 13:08 | Emergency (ER) | payer MEDICARE ==
[2021-01-31] MEDS ORDERED: BABY ASPIRIN 81 MG CHEW PO ONE (13:50)
[2021-01-31] MEDS ORDERED: DUONEB 0.5-3 MG/3 ml Neb IH ONE (14:06)
[2021-01-31] MEDS: DUONEB 0.5-3 MG/3 ml Neb IH ONE ×2 (14:13→15:59)
--- NOTE | 2021-01-31 14:14 | XRAY ---
Indication: Chest pain. Comparison: August 02, 2020. PA/lateral chest remains clear. Heart and mediastinal structures within normal limits. Bony thorax intact again with mild degenerative changes. No new/acute findings.
[2021-01-31 14:18] LABS: Absolute Neutrophil Ct (ANC) 5.96 (1.4-6.9); BASOPHIL % 0.5 % (0.0-0.4); Basophil (Absolute #) 0.04 (0-0.4); Eosinophil % 7.1 % (0.00-5.0); Eosinophil (Absolute #) 0.56 (0-0.5); Hematocrit 38.4 % (35-47); Hemoglobin 11.2 gm/dl (12.0-16.0); Lymphocyte (Absolute #) 0.92 (1.0-4.6); Lymphocytes % 11.6 % (24.0-44.0); Mean Cell Volume 77.7 fl (78-100); Mean Corpuscular Hemoglobin 22.7 pg (26-32); Mean Corpuscular Hgb Concent. 29.2 g/dl (32-36); Mean Platelet Volume 11.5 fl (7.5-11.0); Monocyte (Absolute #) 0.43 (0.0-1.3); Monocytes % 5.4 % (0.0-12.0); Neutrophil % 75.4 % (36.0-66.0); Platelet Count 285 K/mm3 (150-450); Red Blood Count 4.94 M/mm3 (4.1-5.4); Red Cell Distribution Width 23.2 % (11.5-14.0); White Blood Count 7.9 K/mm3 (4.0-10.5)
[2021-01-31] MEDS ORDERED: Zofran 4 MG/2 ML VIAL IV ONE (14:26)
[2021-01-31] MEDS ORDERED: MORPHINE SULFATE 4 MG INJ IV ONE (14:26)
[2021-01-31] MEDS ORDERED: Zofran 4 MG/2 ML VIAL ONE (14:32)
[2021-01-31] MEDS ORDERED: MORPHINE SULFATE 4 MG INJ ONE (14:33)
[2021-01-31 14:37] LABS: ALKALINE PHOSPHATASE 349 U/L (38-126); ANION GAP 12.3 MEQ/L (5-15); BLOOD UREA NITROGEN 15 mg/dL (7-17); CHLORIDE 100 mmol/L (98-107); Calcium 8.9 mg/dL (8.4-10.2); Carbon Dioxide 28 mmol/L (22-30); Creatinine 1 0.79 mg/dL (0.52-1.04); EST GLOMERULAR FILTRATION RATE > 60.0 ML/MIN; Glucose 225 mg/dL (74-106); MAGNESIUM 1.9 mg/dL (1.6-2.3); NT PRO BNP 1970 pg/mL (0-900); Potassium 4.4 mmol/L (3.5-5.1); SGOT/AST 225 U/L (14-36); SGPT/ALT 252 U/L (0-35); SODIUM 136 mmol/L (137-145); Total Protein 7.2 g/dL (6.3-8.2)
[2021-01-31] MEDS ORDERED: NITRO-BID 2% UD PACKETS ONE (15:03)
[2021-01-31] MEDS ORDERED: NITRO-BID 2% UD PACKETS TOP ONE (15:04)
--- NOTE | 2021-01-31 15:17 | ERPHSYRPT ---
- History of Present Illness Time Seen by Provider: 01/31/21 13:14 Historian: patient Exam Limitations: no limitations Patient Subjective Stated Complaint: SOB/CP x 1 week+ Triage Nursing Assessment: pt to ED c/o CP and SOB for a week a more. was h ospitalized here last week and has not felt well since DC. rates 2/10 dull CP in center of chest. SOB noted after ambulation to room. O2 sat 97% on RA. lungs clear and equal bilaterally, heart sounds clear. Physician History: 60 years old morbidly obese female with history of coronary artery disease, hypertension, hyperlipidemia, diabetes mellitus, asthma/COPD, Crohn's disease with recent admission for GI bleed needing 2 pints of blood presented today with 1 week history of intermittent substernal to central chest tightness pressure/dull aching pain with no radiation which is aggravated with activity and occasionally having pain even at resting. Patient also reports having shortness of breath her baseline but for 1 week she is having a little more than usual shortness of breath especially with activity. She does have palpitations at times. Denies any fever chills or sick contact. Patient reports having similar symptoms in the past and had cardiac cath done almost a year ago which was negative. Timing/Duration: week(s) (1), intermittent, gradual onset Activities at Onset: activity, rest Quality: dullness, pressure Location: substernal, central Chest Pain Radiation: no radiation Severity of Pain-Max: moderate Severity of Pain-Current: mild Modifying Factors: Worsens With: exertion Associated Symptoms: palpitations, shortness of breath, fatigue Prior Chest Pain/Cardiac Workup: cardiac cath Nitro Today/Relief: no nitro taken today Aspirin Treatment Today: no aspirin today Allergies/Adverse Reactions: cyclobenzaprine HCl [From Flexeril] Allergy (Mild, Verified 01/18/21 06:38) Rash metoclopramide [From Reglan] Allergy (Mild, Verified 01/18/21 06:38) Rash Sulfa (Sulfonamide Antibiotics) [Sulfa(Sulfonamide Antibiotics)] Allergy (Mild, Verified 01/18/21 06:38) Rash adhesive Allergy (Verified 01/18/21 13:29) Rash nalbuphine HCl [From Nubain] Adverse Reaction (Intermediate, Verified 01/18/21 06:38) Stomach Cramps patient states she had stomach "burning" and that her legs felt like "rubber bands" ciprofloxacin [From Cipro] Adverse Reaction (Mild, Verified 01/18/21 06:38) meperidine HCl [From Demerol] Adverse Reaction (Mild, Verified 01/18/21 06:38) Vomiting morphine Adverse Reaction (Verified 01/18/21 13:32) ADDICTION PT STATES SHE TOOK MORPHINE YEARS AGO AND IT WAS HARD TO GET OFF OF IT AND DOES NOT WANT IT Home Medications: Duloxetine HCl 60 mg PO DAILY 03/17/16 [History] Ergocalciferol (Vitamin D2) [Vitamin D2] 50,000 unit PO Q7D 03/17/16 [History] Mesalamine [Pentasa] 500 mg PO BID 03/17/16 [History] Metformin HCl 1000 mg [Glucophage 1000 MG] 1,000 mg PO BID 03/17/16 [History] Methocarbamol 500 mg [Robaxin 500 MG] 1,000 mg PO QIDPRN PRN 03/17/16 [History] Omeprazole 20 MG [Prilosec 20 mg] 20 mg PO BID 03/17/16 [History] Aripiprazole 10 mg [Abilify 10 MG] 2 mg PO HS 08/08/16 [History] Atorvastatin Calcium 10 mg PO DAILY 01/25/18 [History] Insulin Glargine,Hum.rec.anlog [Basaglar Kwikpen U-100] 36 unit SQ HS 12/05/19 [History] Meclizine HCl 25 mg [Antivert 25 mg] 25 mg PO DAILY PRN 12/05/19 [History] Insulin Aspart [Novolog] 38 unit SQ AC 08/02/20 [History] Isosorbide Mononitrate 60 mg [Imdur 60MG] 120 mg PO DAILY 12/31/20 [History] Levothyroxine Sodium 25 Mcg [Synthroid 25 Mcg] 25 mcg PO DAILY 12/31/20 [History] Metoprolol Succinate 100 mg [Toprol Xl 100 MG] 100 mg PO DAILY 12/31/20 [History] Albuterol Sulfate [Albuterol Sulfate Hfa] 2 puffs IH Q4HPRN PRN 01/18/21 [History] Insulin Glargine,Hum.rec.anlog [Geena Roger U-100] 36 unit SQ BREAKFAST 01/18/21 [History] PARoxetine HCl [Paxil] 10 mg PO DAILY 01/18/21 [History] Hx Tetanus, Diphtheria Vaccination/Date Given: No Hx Influenza Vaccination/Date Given: No Hx Pneumococcal Vaccination/Date Given: No Immunizations Up to Date: No Travel Risk - International Travel Have you traveled outside of the country in past 3 weeks: No - Coronavirus Screening Are you exhibiting any of the following symptoms?: Yes Symptoms: Shortness of Breath Close contact with a COVID-19 positive Pt in past 14-21 Days: No - Vaccine Status Have you recieved a Covid-19 vaccination: No - Review of Systems Constitutional: Fatigue Eyes: No Symptoms Ears, Nose, & Throat: No Symptoms Respiratory: Dyspnea, Dyspnea on Exertion ([place]), Wheezing Cardiac: Chest Pain, Palpitations Abdominal/Gastrointestinal: Hematochezia Genitourinary Symptoms: No Symptoms Musculoskeletal: Arthralgias, Myalgias Skin: No Symptoms Neurological: No Symptoms Psychological: No Symptoms Endocrine: No Symptoms Hematologic/Lymphatic: No Symptoms Immunological/Allergic: No Symptoms - Past Medical History Pertinent Past Medical History: Yes Neurological History: Migraines ENT History: Cataracts Cardiac History: Coronary Artery Disease, High Cholesterol, Hypertension, Myocardial Infarction (ND) Respiratory History: Asthma, Bronchitis, COPD, Sleep Apnea Endocrine Medical History: Diabetes Type II Musculoskeletal History: Arthritis, Degenerative Disk Disease, Fibromyalgia, Osteoarthritis GI Medical History: Crohns Disease, Diverticulitis, GERD History: No Pertinent History Psycho-Social History: Anxiety, Depression Female Reproductive Disorders: No Pertinent History Other Medical History: uti, yeast infection, neuropathy - Past Surgical History Past Surgical History: Yes Neuro Surgical History: No Pertinent History Cardiac: Cardiac Catheterization Respiratory: No Pertinent History Gastrointestinal: No Pertinent History Genitourinary: No Pertinent History Musculoskeletal: No Pertinent History Female Surgical History: Dilation & Curettage, Section, Tubal Ligation Other Surgical History: KIDNEY STONE REMOVAL. heart cath x3, no stents - Social History Smoking Status: Never smoker Exposure to second hand smoke: No Alcohol Use: None Drug Use: none Patient Lives Alone: Yes Significant Family History: diabetes, hypertension - Female History Hx Now: No - Nursing Vital Signs Nursing Vital Signs: Initial Vital Signs Temperature 98.1 F 01/31/21 13:09 Pulse Rate 91 H 01/31/21 13:09 Respiratory Rate 24 01/31/21 13:09 Blood Pressure 166/81 01/31/21 13:09 O2 Sat by Pulse Oximetry 97 01/31/21 13:09 Pain Scale Pain Intensity 6 - Physical Exam General Appearance: no apparent distress, alert Eye Exam: PERRL/EOMI, eyes nml inspection Ears, Nose, Throat Exam: normal ENT inspection, TMs normal, pharynx normal Neck Exam: normal inspection, non-tender, supple, full range of motion Respiratory Exam: No chest tenderness (Hello in letter because) Cardiovascular Exam: regular rate/rhythm, normal heart sounds Gastrointestinal/Abdomen Exam: soft, normal bowel sounds Back Exam: normal inspection, No CVA tenderness Extremity Exam: normal inspection, normal range of motion, pelvis stable Neurologic Exam: alert, oriented x 3, cooperative, normal mood/affect Skin Exam: normal color SpO2 Interpretation: normal SpO2: 97 O2 Delivery: Room Air - Course EKG Interpreted by Me: RATE (95), Sinus Rhythm, NORMAL AXIS, NORMAL INTERVALS, Q-wave, Non-specific ST Changes Ordered Tests: Active Orders 24 hr Category Date Time Status Sports Official STAT Care 01/31/21 13:49 Active EKG-ER Only STAT Care 01/31/21 13:49 Active IV Insertion STAT Care 01/31/21 13:49 Active CHEST 2 VIEWS (PA AND LAT) Stat Exams 01/31/21 13:49 Completed CBC W DIFF Stat Lab 01/31/21 14:10 Completed CMP Stat Lab 01/31/21 14:10 Completed D-DIMER QUANTITATIVE Stat Lab 01/31/21 15:00 Completed MAGNESIUM Stat Lab 01/31/21 14:10 Completed NT PRO BNP Stat Lab 01/31/21 14:10 Completed TROPONIN Q3H Lab 01/31/21 14:10 Completed TROPONIN Q3H Lab 01/31/21 17:00 Ordered TROPONIN Q3H Lab 01/31/21 20:00 Ordered TROPONIN Q3H Lab 01/31/21 23:00 Ordered TROPONIN Q3H Lab 02/01/21 02:00 Ordered Respiratory Therapy Assessment DAILY RT 01/31/21 14:21 Active Medication Summary Discontinued Medications Generic Name Dose Route Start Last Admin Trade Name Freq PRN Reason Stop Dose Admin Albuterol/Ipratropium 3 ml 01/31/21 13:49 01/31/21 15:59 Duoneb 0.5-3 Mg/3 Ml Neb IH 01/31/21 13:50 3 ml STAT ONE Administration Albuterol/Ipratropium Confirm 01/31/21 14:06 Duoneb 0.5-3 Mg/3 Ml Neb Administered 01/31/21 14:07 Dose 3 ml IH .STK-MED ONE Aspirin 324 mg 01/31/21 13:50 01/31/21 14:07 Baby Aspirin 81 Mg Chew PO 01/31/21 13:51 Not Given STAT ONE Furosemide 40 mg 01/31/21 15:42 01/31/21 15:49 Lasix 40 Mg/4 Ml IV 01/31/21 15:43 Not Given STAT ONE Morphine Sulfate 4 mg 01/31/21 14:26 01/31/21 14:33 Morphine Sulfate 4 Mg Inj IV 01/31/21 14:27 4 mg STAT ONE Administration Morphine Sulfate Confirm 01/31/21 14:33 Morphine Sulfate 4 Mg Inj Administered 01/31/21 14:34 Dose 4 mg .ROUTE .STK-MED ONE Nitroglycerin Confirm 01/31/21 15:03 Nitro-Bid 2% Ud Packets Administered 01/31/21 15:04 Dose 1 gm .ROUTE .STK-MED ONE Nitroglycerin 0.5 gm 01/31/21 15:04 01/31/21 15:07 Nitro-Bid 2% Ud Packets TOP 01/31/21 15:05 0.5 gm STAT ONE Administration Ondansetron HCl 4 mg 01/31/21 14:26 01/31/21 14:33 Zofran 4 Mg/2 Ml Vial IV 01/31/21 14:27 4 mg STAT ONE Administration Ondansetron HCl Confirm 01/31/21 14:32 Zofran 4 Mg/2 Ml Vial Administered 01/31/21 14:33 Dose 4 mg .ROUTE .STK-MED ONE Lab/Rad Data: Laboratory Result Diagrams 01/31/21 14:10 01/31/21 14:10 Laboratory Results 01/31/21 01/31/21 01/31/21 Range/Units 15:00 14:10 14:10 WBC (4.0-10.5) K/mm3 RBC (4.1-5.4) M/mm3 Hgb (12.0-16.0) gm/dl Hct (35-47) % MCV (78-100) fl MCH (26-32) pg MCHC (32-36) g/dl RDW (11.5-14.0) % Plt Count (150-450) K/mm3 MPV (7.5-11.0) fl Gran % (36.0-66.0) % Eos # (Auto) (0-0.5) Absolute Lymphs (auto) (1.0-4.6) Absolute Monos (auto) (0.0-1.3) Lymphocytes % (24.0-44.0) % Monocytes % (0.0-12.0) % Eosinophils % (0.00-5.0) % Basophils % (0.0-0.4) % Absolute Granulocytes (1.4-6.9) Basophils # (0-0.4) D-Dimer 778 H* (215-500) ng/mL Sodium 136 L (137-145) mmol/L Potassium 4.4 (3.5-5.1) mmol/L Chloride 100 (98-107) mmol/L Carbon Dioxide 28 (22-30) mmol/L Anion Gap 12.3 (5-15) MEQ/L BUN 15 (7-17) mg/dL Creatinine 0.79 (0.52-1.04) mg/dL Estimated GFR > 60.0 ML/MIN Glucose 225 H (74-106) mg/dL Calcium 8.9 (8.4-10.2) mg/dL Magnesium 1.9 (1.6-2.3) mg/dL Total Bilirubin 1.30 (0.2-1.3) mg/dL AST 225 H (14-36) U/L ALT 252 H (0-35) U/L Alkaline Phosphatase 349 H (38-126) U/L Troponin I 0.058 H* (0.000-0.034) ng/mL NT-Pro-B Natriuret Pep 1970 H (0-900) pg/mL Serum Total Protein 7.2 (6.3-8.2) g/dL Albumin 4.0 (3.5-5.0) g/dL 01/31/21 Range/Units 14:10 WBC 7.9 (4.0-10.5) K/mm3 RBC 4.94 (4.1-5.4) M/mm3 Hgb 11.2 L (12.0-16.0) gm/dl Hct 38.4 (35-47) % MCV 77.7 L (78-100) fl MCH 22.7 L (26-32) pg MCHC 29.2 L (32-36) g/dl RDW 23.2 H (11.5-14.0) % Plt Count 285 (150-450) K/mm3 MPV 11.5 H (7.5-11.0) fl Gran % 75.4 H (36.0-66.0) % Eos # (Auto) 0.56 H (0-0.5) Absolute Lymphs (auto) 0.92 L (1.0-4.6) Absolute Monos (auto) 0.43 (0.0-1.3) Lymphocytes % 11.6 L (24.0-44.0) % Monocytes % 5.4 (0.0-12.0) % Eosinophils % 7.1 H (0.00-5.0) % Basophils % 0.5 (0.0-0.4) % Absolute Granulocytes 5.96 (1.4-6.9) Basophils # 0.04 (0-0.4) D-Dimer (215-500) ng/mL Sodium (137-145) mmol/L Potassium (3.5-5.1) mmol/L Chloride (98-107) mmol/L Carbon Dioxide (22-30) mmol/L Anion Gap (5-15) MEQ/L BUN (7-17) mg/dL Creatinine (0.52-1.04) mg/dL Estimated GFR ML/MIN Glucose (74-106) mg/dL Calcium (8.4-10.2) mg/dL Magnesium (1.6-2.3) mg/dL Total Bilirubin (0.2-1.3) mg/dL AST (14-36) U/L ALT (0-35) U/L Alkaline Phosphatase (38-126) U/L Troponin I (0.000-0.034) ng/mL NT-Pro-B Natriuret Pep (0-900) pg/mL Serum Total Protein (6.3-8.2) g/dL Albumin (3.5-5.0) g/dL - Progress Progress: improved, re-examined Air Movement: good Progress Note: 01/31/21 15:29 60 years old female with multiple comorbidities evaluated for intermittent chest pain and shortness of breath for 1 week. EKG did not show any acute ST elevations. She is recommended aspirin which she refused because of recent bleed. She is given morphine and on reevaluation her pain is better. Patient has much improvement in her hemoglobin to 11. Chemistry profile showed elevated transaminases without any abdominal pain and initial troponins is 0.058. Patient has a D-dimer of 778. Patient always have elevated D-dimers and I have recently seen this patient with a D-dimers in 1800 and CTA chest was negative. Does not have any history of PE or DVT. On reevaluation she is complaining of increasing chest discomfort and given Nitropaste. Patient also has increased swelling in lower extremities and elevated BNP. I believe she has some element of CHF exacerbation as well but her blood pressure is on the lower side, will hold off on Lasix for. I have discussed with Dr. Palomino her primary care who has reviewed her record, recommended transfer to facility with cardiology services in-house. 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 01/31/21 15:50 Discussed with [place] hospitalist Dr. Flores, reviewed history work-up and current management. Agreed with not doing CTA purposes persistently elevated D- dimer in the past with negative's CTAs and patient not getting hypoxic. He will reevaluate patient once and there to see if she needs CTA as patient would be getting diet twice if she has to go for cardiac cath again tonight. I have also discussed with Dr. Galvan he will see patient once she is there. 01/31/21 15:52 Blood Culture(s) Obtained: No Antibiotics given: No Discussed with : Baudilio, Other Counseled pt/family regarding: lab results, diagnosis, rad results - Departure Clinical Impression: NSTEMI (non-ST elevated myocardial infarction) Condition: Stable Critical Care Time: No Referrals: CALVIN PALOMINO [Primary Care Provider] -
[2021-01-31] MEDS ORDERED: Lasix 40 MG/4 ML IV ONE (15:42)
[2021-01-31 18:01] VITALS: BP 96/60; PULSE 77; O2SAT 95
== END 2021-01-31 18:30 | disposition short-term general hospital (02) ==
LOC: ED 13:08
DX: I21.4 Non-ST elevation (NSTEMI) myocardial infarction (principal)
CPT/HCPCS: 36000; 36415; 71046; 80053; 83735; 83880; 84484; 85025; 85379; 93005; 93041; 94640; 96374; 96375; 99285; J2270; J2405; A9270-GY

== ENCOUNTER 2021-02-21 00:37 | Observation (INO) | payer MEDICARE ==
--- NOTE | 2021-02-21 00:41 | ERPHSYRPT ---
- History of Present Illness Time Seen by Provider: 02/21/21 00:41 Historian: patient Exam Limitations: no limitations Physician History: This is a 60-year-old morbidly obese white female who has a history of Crohn's disease, coronary artery disease, hypertension, hyperlipidemia, diabetes, asthma, COPD, gastroesophageal reflux disease and hypothyroidism and presents wi th 7-hour history of chest pain. She describes this as slow onset, bilateral anterior chest achiness with sharp radiation bilaterally into both shoulders. Patient has had 3 cardiac caths in the past, the most recent approximately a year ago that were negative. She has had no cardiac stents in place. Her primary care physician is Dr. Holguin. Her preventative maintenance technician is Dr. Selby. Patient was seen on 01/31/2021 with similar complaints. She was sent to [facility] and had a work-up and it was negative and she was discharged to home in approximately 24 to 48 hours after her arrival. Patient has a history of permanently elevated D-dimer. She has had several CTAs of the chest performed in the past and they have been negative for any pulmonary emboli. Patient is not short of breath. Upon arrival into the emergency department her symptoms have significantly dissipated. Patient states that she has been much more active in the last 12 to 24 hours and she feels this may have contributed to her chest discomfort. Timing/Duration: yesterday (6 PM), intermittent, gradual onset, improved Quality: aching, sharpness Location: other (Fever chest wall) Severity of Pain-Max: mild Severity of Pain-Current: none Modifying Factors: Improves With: movement Associated Symptoms: denies symptoms Prior Chest Pain/Cardiac Workup: cardiac cath, recently seen/treated, recent hospitalization Nitro Today/Relief: no nitro taken today Aspirin Treatment Today: no aspirin today Allergies/Adverse Reactions: cyclobenzaprine HCl [From Flexeril] Allergy (Mild, Verified 02/21/21 00:54) Rash metoclopramide [From Reglan] Allergy (Mild, Verified 02/21/21 00:54) Rash Sulfa (Sulfonamide Antibiotics) [Sulfa(Sulfonamide Antibiotics)] Allergy (Mild, Verified 02/21/21 00:54) Rash adhesive Allergy (Verified 02/21/21 00:54) Rash nalbuphine HCl [From Nubain] Adverse Reaction (Intermediate, Verified 02/21/21 00:54) Stomach Cramps patient states she had stomach "burning" and that her legs felt like "rubber bands" ciprofloxacin [From Cipro] Adverse Reaction (Mild, Verified 02/21/21 00:54) meperidine HCl [From Demerol] Adverse Reaction (Mild, Verified 02/21/21 00:54) Vomiting morphine Adverse Reaction (Verified 02/21/21 00:54) ADDICTION PT STATES SHE TOOK MORPHINE YEARS AGO AND IT WAS HARD TO GET OFF OF IT AND DOES NOT WANT IT Home Medications: Duloxetine HCl 60 mg PO DAILY 03/17/16 [History] Ergocalciferol (Vitamin D2) [Vitamin D2] 50,000 unit PO Q7D 03/17/16 [History] Mesalamine [Pentasa] 500 mg PO BID 03/17/16 [History] Metformin HCl 1000 mg [Glucophage 1000 MG] 1,000 mg PO BID 03/17/16 [History] Methocarbamol 500 mg [Robaxin 500 MG] 1,000 mg PO QIDPRN PRN 03/17/16 [History] Omeprazole 20 MG [Prilosec 20 mg] 20 mg PO BID 03/17/16 [History] Atorvastatin Calcium 10 mg PO DAILY 01/25/18 [History] Insulin Glargine,Hum.rec.anlog [Basaglar Kwikpen U-100] 36 unit SQ HS 12/05/19 [History] Meclizine HCl 25 mg [Antivert 25 mg] 25 mg PO DAILY PRN 12/05/19 [History] Insulin Aspart [Novolog] 38 unit SQ AC 08/02/20 [History] Isosorbide Mononitrate 60 mg [Imdur 60MG] 120 mg PO DAILY 12/31/20 [History] Levothyroxine Sodium 25 Mcg [Synthroid 25 Mcg] 25 mcg PO DAILY 12/31/20 [History] Metoprolol Succinate 100 mg [Toprol Xl 100 MG] 100 mg PO DAILY 12/31/20 [H istory] Albuterol Sulfate [Albuterol Sulfate Hfa] 2 puffs IH Q4HPRN PRN 01/18/21 [History] Insulin Glargine,Hum.rec.anlog [Basaglar Kwikpen U-100] 36 unit SQ BREAKFAST 01/18/21 [History] PARoxetine HCl [Paxil] 10 mg PO DAILY 01/18/21 [History] Hx Tetanus, Diphtheria Vaccination/Date Given: No Hx Influenza Vaccination/Date Given: No Hx Pneumococcal Vaccination/Date Given: No Travel Risk - International Travel Have you traveled outside of the country in past 3 weeks: No - Coronavirus Screening Are you exhibiting any of the following symptoms?: No Close contact with a COVID-19 positive Pt in past 14-21 Days: No - Vaccine Status Have you recieved a Covid-19 vaccination: No - Review of Systems Constitutional: No Symptoms Eyes: No Symptoms Ears, Nose, & Throat: No Symptoms Respiratory: No Symptoms Cardiac: Chest Pain Abdominal/Gastrointestinal: No Symptoms Genitourinary Symptoms: No Symptoms Musculoskeletal: No Symptoms Skin: No Symptoms Neurological: No Symptoms Psychological: No Symptoms Endocrine: No Symptoms Hematologic/Lymphatic: No Symptoms Immunological/Allergic: No Symptoms All Other Systems: Reviewed and Negative - Past Medical History Pertinent Past Medical History: Yes Neurological History: Migraines ENT History: Cataracts Cardiac History: Coronary Artery Disease, High Cholesterol, Hypertension, Myocardial Infarction ([place]) Respiratory History: Asthma, Bronchitis, COPD, Sleep Apnea Endocrine Medical History: Diabetes Type II Musculoskeletal History: Arthritis, Degenerative Disk Disease, Fibromyalgia, Osteoarthritis GI Medical History: Crohns Disease, Diverticulitis, GERD History: No Pertinent History Psycho-Social History: Anxiety, Depression Female Reproductive Disorders: No Pertinent History Other Medical History: uti, yeast infection, neuropathy - Past Surgical History Past Surgical History: Yes Neuro Surgical History: No Pertinent History Cardiac: Cardiac Catheterization Respiratory: No Pertinent History Gastrointestinal: No Pertinent History Genitourinary: No Pertinent History Musculoskeletal: No Pertinent History Female Surgical History: Dilation & Curettage, Section, Tubal Ligation Other Surgical History: KIDNEY STONE REMOVAL. heart cath x3, no stents - Social History Smoking Status: Never smoker Exposure to second hand smoke: No Alcohol Use: None Drug Use: none Patient Lives Alone: Yes Significant Family History: diabetes, hypertension - Nursing Vital Signs Nursing Vital Signs: Initial Vital Signs Temperature 98.1 F 02/21/21 00:41 Pulse Rate 84 02/21/21 00:41 Respiratory Rate 28 H 02/21/21 00:41 Blood Pressure 179/86 02/21/21 00:41 O2 Sat by Pulse Oximetry 98 02/21/21 00:41 Pain Scale Pain Intensity 4 - Physical Exam General Appearance: no apparent distress, alert, anxiety, obese Eye Exam: PERRL/EOMI Ears, Nose, Throat Exam: normal ENT inspection, moist mucous membranes Neck Exam: normal inspection, non-tender, supple, full range of motion Respiratory Exam: normal breath sounds, lungs clear, airway intact, No chest tenderness, No respiratory distress Cardiovascular Exam: regular rate/rhythm, normal heart sounds, normal peripheral pulses Gastrointestinal/Abdomen Exam: soft, normal bowel sounds, No tenderness Pelvic Exam: not done Rectal Exam: not done Back Exam: normal inspection, normal range of motion, No CVA tenderness, No vertebral tenderness Extremity Exam: normal inspection, normal range of motion, pelvis stable Neurologic Exam: alert, oriented x 3, cooperative, 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 There is new borderline prolonged WI interval and new anterior Q waves but possibly due to LVH. This was compared to the comparison EKG, 01/31/2001) Ordered Tests: Active Orders 24 hr Category Date Time Status EKG-ER Only STAT Care 02/21/21 00:46 Active IV Insertion STAT Care 02/21/21 00:46 Active Pulse Oximetry (ED) STAT Care 02/21/21 00:46 Active CHEST 1 VIEW (PORTABLE) Stat Exams 02/21/21 05:29 Taken CBC W DIFF Stat Lab 02/21/21 00:50 Completed CMP Stat Lab 02/21/21 00:50 Completed D-DIMER QUANTITATIVE Stat Lab 02/21/21 00:50 Completed MAGNESIUM Stat Lab 02/21/21 00:50 Completed NT PRO BNP Stat Lab 02/21/21 00:50 Completed PROTIME WITH INR Stat Lab 02/21/21 00:50 Completed T4 (Thyroxine) Stat Lab 02/21/21 00:50 Completed TROPONIN Q3H Lab 02/21/21 00:50 Completed TROPONIN Q3H Lab 02/21/21 04:00 Completed TROPONIN Q3H Lab 02/21/21 07:00 Ordered TROPONIN Q3H Lab 02/21/21 10:00 Ordered TROPONIN Q3H Lab 02/21/21 13:00 Ordered TSH [TSH, 3RD Generation] Stat Lab 02/21/21 00:50 Completed Transfer Order Routine Transfer 02/21/21 Ordered Medication Summary Discontinued Medications Generic Name Dose Route Start Last Admin Trade Name Faida PRN Reason Stop Dose Admin Acetaminophen 650 mg 02/21/21 04:27 02/21/21 04:32 Tylenol 325 Mg PO 02/21/21 04:28 650 mg STAT STA Administration Acetaminophen Confirm 02/21/21 04:31 Tylenol 325 Mg Administered 02/21/21 04:32 Dose 650 mg .ROUTE .STK-MED ONE Aspirin 324 mg 02/21/21 00:46 02/21/21 01:05 Baby Aspirin 81 Mg Chew PO 02/21/21 00:47 324 mg STAT ONE Administration Aspirin Confirm 02/21/21 01:06 Baby Aspirin 81 Mg Chew Administered 02/21/21 01:07 Dose 324 mg .ROUTE .STK-MED ONE Morphine Sulfate 2 mg 02/21/21 05:10 02/21/21 05:18 Morphine Sulfate 2 Mg Inj IV 02/21/21 05:11 2 mg STAT ONE Administration Morphine Sulfate Confirm 02/21/21 05:17 Morphine Sulfate 2 Mg Inj Administered 02/21/21 05:18 Dose 2 mg .ROUTE .STK-MED ONE Ondansetron HCl Confirm 02/21/21 02:54 Zofran 4 Mg/2 Ml Vial Administered 02/21/21 02:55 Dose 4 mg .ROUTE .STK-MED ONE Ondansetron HCl 4 mg 02/21/21 02:55 02/21/21 02:56 Zofran 4 Mg/2 Ml Vial IV 02/21/21 02:56 4 mg STAT ONE Administration Lab/Rad Data: Laboratory Result Diagrams 02/21/21 00:50 02/21/21 00:50 Laboratory Results 02/21/21 02/21/21 02/21/21 Range/Units 04:00 00:50 00:50 WBC (4.0-10.5) K/mm3 RBC (4.1-5.4) M/mm3 Hgb (12.0-16.0) gm/dl Hct (35-47) % MCV (78-100) fl MCH (26-32) pg MCHC (32-36) g/dl RDW (11.5-14.0) % Plt Count (150-450) K/mm3 Gran % (36.0-66.0) % Eos # (Auto) (0-0.5) Absolute Lymphs (auto) (1.0-4.6) Absolute Monos (auto) (0.0-1.3) Lymphocytes % (24.0-44.0) % Monocytes % (0.0-12.0) % Eosinophils % (0.00-5.0) % Basophils % (0.0-0.4) % Absolute Granulocytes (1.4-6.9) Basophils # (0-0.4) PT (9.95-12.35) SECONDS INR (0.8-3.0) D-Dimer (215-500) ng/mL Sodium (137-145) mmol/L Potassium (3.5-5.1) mmol/L Chloride (98-107) mmol/L Carbon Dioxide (22-30) mmol/L Anion Gap (5-15) MEQ/L BUN (7-17) mg/dL Creatinine (0.52-1.04) mg/dL Estimated GFR ML/MIN Glucose (74-106) mg/dL Calcium (8.4-10.2) mg/dL Magnesium (1.6-2.3) mg/dL Total Bilirubin (0.2-1.3) mg/dL AST (14-36) U/L ALT (0-35) U/L Alkaline Phosphatase (38-126) U/L Troponin I < 0.012 (0.000-0.034) ng/mL NT-Pro-B Natriuret Pep (0-900) pg/mL Serum Total Protein (6.3-8.2) g/dL Albumin (3.5-5.0) g/dL Thyroxine (T4) 7.06 (5.53-10.96) ug/dL TSH 3rd Generation 4.440 (0.47-4.68) mIU/L Slides for Path Review 02/21/21 02/21/21 02/21/21 Range/Units 00:50 00:50 00:50 WBC (4.0-10.5) K/mm3 RBC (4.1-5.4) M/mm3 Hgb (12.0-16.0) gm/dl Hct (35-47) % MCV (78-100) fl MCH (26-32) pg MCHC (32-36) g/dl RDW (11.5-14.0) % Plt Count (150-450) K/mm3 Gran % (36.0-66.0) % Eos # (Auto) (0-0.5) Absolute Lymphs (auto) (1.0-4.6) Absolute Monos (auto) (0.0-1.3) Lymphocytes % (24.0-44.0) % Monocytes % (0.0-12.0) % Eosinophils % (0.00-5.0) % Basophils % (0.0-0.4) % Absolute Granulocytes (1.4-6.9) Basophils # (0-0.4) PT 12.6 H (9.95-12.35) SECONDS INR 1.11 (0.8-3.0) D-Dimer 368 (215-500) ng/mL Sodium 132 L (137-145) mmol/L Potassium 4.0 (3.5-5.1) mmol/L Chloride 96 L (98-107) mmol/L Carbon Dioxide 26 (22-30) mmol/L Anion Gap 14.5 (5-15) MEQ/L BUN 13 (7-17) mg/dL Creatinine 0.73 (0.52-1.04) mg/dL Estimated GFR > 60.0 ML/MIN Glucose 433 H (74-106) mg/dL Calcium 9.0 (8.4-10.2) mg/dL Magnesium 1.6 (1.6-2.3) mg/dL Total Bilirubin 0.30 (0.2-1.3) mg/dL AST 36 (14-36) U/L ALT 32 (0-35) U/L Alkaline Phosphatase 259 H (38-126) U/L Troponin I 0.012 (0.000-0.034) ng/mL NT-Pro-B Natriuret Pep 462 (0-900) pg/mL Serum Total Protein 7.3 (6.3-8.2) g/dL Albumin 4.0 (3.5-5.0) g/dL Thyroxine (T4) (5.53-10.96) ug/dL TSH 3rd Generation (0.47-4.68) mIU/L Slides for Path Review 02/21/21 Range/Units 00:50 WBC 9.6 (4.0-10.5) K/mm3 RBC 4.60 (4.1-5.4) M/mm3 Hgb 11.0 L (12.0-16.0) gm/dl Hct 37.6 (35-47) % MCV 81.7 (78-100) fl MCH 23.9 L (26-32) pg MCHC 29.3 L (32-36) g/dl RDW 23.3 H (11.5-14.0) % Plt Count 226 (150-450) K/mm3 Gran % 77.7 H (36.0-66.0) % Eos # (Auto) 0.19 (0-0.5) Absolute Lymphs (auto) 1.38 (1.0-4.6) Absolute Monos (auto) 0.53 (0.0-1.3) Lymphocytes % 14.5 L (24.0-44.0) % Monocytes % 5.5 (0.0-12.0) % Eosinophils % 2.0 (0.00-5.0) % Basophils % 0.3 (0.0-0.4) % Absolute Granulocytes 7.42 H (1.4-6.9) Basophils # 0.03 (0-0.4) PT (9.95-12.35) SECONDS INR (0.8-3.0) D-Dimer (215-500) ng/mL Sodium (137-145) mmol/L Potassium (3.5-5.1) mmol/L Chloride (98-107) mmol/L Carbon Dioxide (22-30) mmol/L Anion Gap (5-15) MEQ/L BUN (7-17) mg/dL Creatinine (0.52-1.04) mg/dL Estimated GFR ML/MIN Glucose (74-106) mg/dL Calcium (8.4-10.2) mg/dL Magnesium (1.6-2.3) mg/dL Total Bilirubin (0.2-1.3) mg/dL AST (14-36) U/L ALT (0-35) U/L Alkaline Phosphatase (38-126) U/L Troponin I (0.000-0.034) ng/mL NT-Pro-B Natriuret Pep (0-900) pg/mL Serum Total Protein (6.3-8.2) g/dL Albumin (3.5-5.0) g/dL Thyroxine (T4) (5.53-10.96) ug/dL TSH 3rd Generation (0.47-4.68) mIU/L Slides for Path Review YES - Progress Progress: re-examined Air Movement: good Progress Note: 02/21/21 05:25 Patient has persistent chest pain which is an 8 out of 10. 02/21/21 06:05 Medical decision making: This patient continues to have intermittent chest pain with levels of 2 out of 10 and as high as 8 out of 10. Her D-dimer is normal as is the 2 levels of troponin that were drawn at 0-hour and at 3-hour respectively. Her chest x-ray shows no acute cardiopulmonary process. I contacted [facility] which is where she preferred to be transferred to. However, they do not have any beds available. Therefore, I contacted the patient's primary care physician, Dr. Holguin and he agrees to place the patient in observation. The patient has had 3 - cardiac catheterizations in the past. Most recently approximately 1 year ago. They were negative per patient report. Patient has not had any cardiac stents placed. She has had several CAT scans of the chest with contrast in the past, none of which have shown any pulmonary emboli. Those CAT scans were performed based on significantly elevated D-dimer levels. Today's D-dimer level is normal. Because of her persistent chest pain we will place her in observation in a monitored bed and Dr. Holguin will evaluate her and manage her care while in the hospital Blood Culture(s) Obtained: No Antibiotics given: No Counseled pt/family regarding: lab results, diagnosis, rad results - Departure Departure Disposition: Observation Clinical Impression: Chest pain Condition: Stable Critical Care Time: No Referrals: CALVIN HOLGUIN [Primary Care Provider] -
[2021-02-21] MEDS ORDERED: BABY ASPIRIN 81 MG CHEW PO ONE (00:46)
[2021-02-21] MEDS ORDERED: BABY ASPIRIN 81 MG CHEW ONE (01:06)
[2021-02-21 01:11] LABS: INR 1.11 (0.8-3.0); PROTIME 12.6 SECONDS (9.95-12.35)
[2021-02-21 01:24] LABS: ALKALINE PHOSPHATASE 259 U/L (38-126); ANION GAP 14.5 MEQ/L (5-15); BLOOD UREA NITROGEN 13 mg/dL (7-17); CHLORIDE 96 mmol/L (98-107); Carbon Dioxide 26 mmol/L (22-30); Creatinine 1 0.73 mg/dL (0.52-1.04); EST GLOMERULAR FILTRATION RATE > 60.0 ML/MIN; Glucose 433 mg/dL (74-106); MAGNESIUM 1.6 mg/dL (1.6-2.3); NT PRO BNP 462 pg/mL (0-900); SGOT/AST 36 U/L (14-36); SGPT/ALT 32 U/L (0-35); SODIUM 132 mmol/L (137-145); Total Protein 7.3 g/dL (6.3-8.2)
[2021-02-21 01:25] LABS: Absolute Neutrophil Ct (ANC) 7.42 (1.4-6.9); BASOPHIL % 0.3 % (0.0-0.4); Basophil (Absolute #) 0.03 (0-0.4); Eosinophil (Absolute #) 0.19 (0-0.5); Hematocrit 37.6 % (35-47); Lymphocyte (Absolute #) 1.38 (1.0-4.6); Lymphocytes % 14.5 % (24.0-44.0); Mean Cell Volume 81.7 fl (78-100); Mean Corpuscular Hemoglobin 23.9 pg (26-32); Mean Corpuscular Hgb Concent. 29.3 g/dl (32-36); Monocyte (Absolute #) 0.53 (0.0-1.3); Monocytes % 5.5 % (0.0-12.0); Neutrophil % 77.7 % (36.0-66.0); Platelet Count 226 K/mm3 (150-450); Red Cell Distribution Width 23.3 % (11.5-14.0); White Blood Count 9.6 K/mm3 (4.0-10.5)
[2021-02-21 02:11] LABS: Slide Review 1 YES
[2021-02-21] MEDS ORDERED: Zofran 4 MG/2 ML VIAL ONE (02:54)
[2021-02-21] MEDS ORDERED: Zofran 4 MG/2 ML VIAL IV ONE (02:55)
[2021-02-21] MEDS ORDERED: TYLENOL 325 MG PO STA (04:27)
[2021-02-21] MEDS ORDERED: TYLENOL 325 MG ONE (04:31)
[2021-02-21] MEDS ORDERED: MORPHINE SULFATE 2 MG INJ IV ONE (05:10)
[2021-02-21] MEDS ORDERED: MORPHINE SULFATE 2 MG INJ ONE (05:17)
[2021-02-21 07:20] LABS: INFLUENZA A NEGATIVE (NEGATIVE); INFLUENZA B NEGATIVE (NEGATIVE); RESPIRATORY SYNCTIAL VIRUS NEGATIVE (Negative)
[2021-02-21] MEDS ORDERED: TYLENOL 325 MG PO PRN (07:48)
[2021-02-21] MEDS ORDERED: HUMULIN R SQ PRN (07:48)
[2021-02-21] MEDS ORDERED: Zofran 4 MG/2 ML VIAL IV PRN (07:48)
[2021-02-21 08:00] VITALS: BP 142/65; PULSE 70; O2SAT 94
--- NOTE | 2021-02-21 11:04 | SSS ---
DISCHARGE DIAGNOSIS: CHEST WALL PAIN. HISTORY: The patient is a 60 year-old white female who presented to the emergency room with complaints of in the left sternal border. She reports it did radiate up into both shoulders. After she got laying down for a while, she did take a Nitro that she felt maybe helped somewhat. The patient was seen in the emergency room and was kept for seven hours while two troponins were done which were negative at less than 0.012. The patient had a recent work up at [facility] approximately two weeks ago likewise was negative at that time. On evaluation the patient was brought into the hospital where I saw her first thing in the morning. On examination when I pressed on her chest wall on the left side it about brought her up off the table where she complained of the pain. The patient was in my opinion obviously having some chest wall symptoms and was otherwise doing well. She has a past history of long standing ulcerative colitis. She is also morbidly obese and has diabetes mellitus. She has had three heart caths previously which have all been essentially normal with the last one about a year ago. She sees Dr. Homero Selby as her applications support specialist. PAST MEDICAL/SURGICAL HISTORY: HOME MEDICATIONS: Duloxetine 50 mg a day, vitamin D 50,000 units weekly, Pentasa 500 mg twice a day, Metformin 1,000 mg twice a day, Robaxin 1,000 mg four times a day, omeprazole 20 mg b.i.d., atorvastatin 10 mg. She is on insulin 36 units subcu at night with Basaglar, Antivert 25 mg t.i.d. PRN for dizziness, NovoLog 38 units a.c., isosorbide 60 mg two tablets a day, Synthroid 25 mcg a day, metoprolol 100 mg daily, Albuterol PRN, paroxetine 10 mg daily. ALLERGIES: MULTIPLE MEDICATIONS. FLEXERIL. REGLAN. SULFA. NUBAIN. CIPRO. DEMEROL. MORPHINE. PHYSICAL EXAMINATION: Her vital signs on admission showed her temperature 98.1F, pulse 84, respiratory rate 28 and blood pressure 139/86. O2 saturation 98%. HEENT: Normocephalic, atraumatic. Pupils equal round reactive to light. Extraocular movements intact. Oropharynx is pink and moist. NECK: Supple without lymphadenopathy, thyromegaly or JVD. CHEST: Clear to auscultation. HEART: Regular rate and rhythm. Exquisitely tender at the left sternal border to palpation. ABDOMEN: Soft. No palpable masses. EXTREMITIES: Without cyanosis, clubbing or edema. NEUROLOGIC: The patient is alert and oriented x3. LAB DATA AND TESTS: Her EKG appears to be normal sinus rhythm without any ST-T wave changes. Her COVID, RSV and influenza was negative. Thyroxine was 7.06 which is normal. TSH was also normal at 4.44. The troponins were less than 0.012. Her INR was 1.11. Her metabolic panel showed nonfasting glucose at 433, BUN 13, creatinine 0.73. Sodium slightly low at 132. Electrolytes were normal. Liver enzymes were normal. Alkaline phosphatase somewhat elevated at 259. The white count was 9,600, hemoglobin 11.0, PLT count 226,000. ASSESSMENT: A patient with such obvious chest wall pain was immediately able to be discharged home with instructions to continue her usual home medications and to follow up in the office in a week. She was instructed to use ice packs on her chest wall and follow that with Voltaren gel. If she had further problems she could always return to the hospital at any time. She also could see her applications support specialist, Dr. Selby, who had seen her fairly recently having been at [facility].
--- NOTE | 2021-02-21 14:47 | XRAY ---
Exam: AP upright portable chest film from 02/21/2021. Comparison: Two-view chest series from 01/31/2021. Indication: Chest pain. Findings: The heart size appears towards the upper limits of normal representing no significant change. A small epicardial fat-pad is seen at the left cardiophrenic angle. Calcification within the aortic arch and moderate tortuosity of the ascending and descending thoracic aorta are again seen. The remainder of the boby and mediastinal structures appears unremarkable. The lungs are adequately inflated. There is minimal elevation/eventration of the right hemidiaphragm. No air space infiltrates, vascular congestion, pneumothorax, or pleural effusion is seen. Mild osteoarthritic spurring is seen at the right acromioclavicular joint and medial edge of the left humeral head. There is also mild degenerative change at the superior lateral cortical surface of the right humeral head. Impression: 1. No acute cardiopulmonary process is seen.
== END 2021-02-21 09:05 | disposition home or self-care (01) ==
LOC: ED 00:37 → MED SURG 07:46
PROVIDERS: ADMIT Family Medicine; ATTEND Family Medicine
DX: R07.89 Other chest pain (principal); I10 Essential (primary) hypertension; E11.9 Type 2 diabetes mellitus without complications; E78.5 Hyperlipidemia, unspecified; J44.9 Chronic obstructive pulmonary disease, unspecified; E03.9 Hypothyroidism, unspecified; I25.10 Atherosclerotic heart disease of native coronary artery without angina pectoris; Z79.899 Other long term (current) drug therapy; Z20.828 Contact with and (suspected) exposure to other viral communicable diseases
CPT/HCPCS: 0241U; 36000; 36415; 71045; 80053; 83735; 83880; 84436; 84443; 84484; 85025; 85379; 85610; 93005; 93268; 94760; 96374; 96375; 99285; G0378; J2270; J2405; A9270-GY

== ENCOUNTER 2021-04-04 08:57 | Emergency (ER) | payer MEDICARE ==
[2021-04-04] MEDS ORDERED: MORPHINE SULFATE 2 MG INJ IV ONE (09:02)
[2021-04-04] MEDS ORDERED: Sodium Chloride 0.9% 1000 ML 1,000 ML IV SCH (09:15)
[2021-04-04] MEDS ORDERED: MORPHINE SULFATE 2 MG INJ ONE (09:20)
[2021-04-04] MEDS ORDERED: Sodium Chloride 0.9% 1000 ML 1,000 ML ONE (09:20)
--- NOTE | 2021-04-04 09:21 | ERPHSYRPT ---
- History of Present Illness Time Seen by Provider: 04/04/21 09:05 Historian: patient Exam Limitations: no limitations Patient Subjective Stated Complaint: pt here for chest pain to center of her chest nonradiating since 0600 this morning, with some sob Triage Nursing Assessment: pt alert,resp easy, skin w/d/p. abd soft, no edema, face mask in place, Physician History: Patient is a 60-year-old white female who presents from home by ambulance with a complaint of chest pain since 6 AM. She describes initial onset of pain rated a 8 of 10. She denies any nausea or vomiting some shortness of breath and a headache. She also says the pain is left anterior chest nonpleuritic does not radiate. Patient reports an MN 15 years ago. Timing/Duration: today Activities at Onset: none Quality: stabbing, throbbing Location: substernal Chest Pain Radiation: no radiation Severity of Pain-Max: moderate Severity of Pain-Current: moderate Modifying Factors: Improves With: nothing Associated Symptoms: shortness of breath, headache, No nausea, No vomiting Prior Chest Pain/Cardiac Workup: heart attack Nitro Today/Relief: 0.4 mg x 4 Aspirin Treatment Today: 325 mg x 1, provided by EMS Allergies/Adverse Reactions: cyclobenzaprine HCl [From Flexeril] Allergy (Mild, Verified 04/04/21 09:09) Rash metoclopramide [From Reglan] Allergy (Mild, Verified 04/04/21 09:09) Rash Sulfa (Sulfonamide Antibiotics) [Sulfa(Sulfonamide Antibiotics)] Allergy (Mild, Verified 04/04/21 09:09) Rash adhesive Allergy (Verified 04/04/21 09:09) Rash nalbuphine HCl [From Nubain] Adverse Reaction (Intermediate, Verified 04/04/21 09:09) Stomach Cramps patient states she had stomach "burning" and that her legs felt like "rubber bands" ciprofloxacin [From Cipro] Adverse Reaction (Mild, Verified 04/04/21 09:09) meperidine HCl [From Demerol] Adverse Reaction (Mild, Verified 04/04/21 09:09) Vomiting morphine Adverse Reaction (Verified 04/04/21 09:09) ADDICTION PT STATES SHE TOOK MORPHINE YEARS AGO AND IT WAS HARD TO GET OFF OF IT AND DOES NOT WANT IT Home Medications: Duloxetine HCl 60 mg PO DAILY 03/17/16 [History] Ergocalciferol (Vitamin D2) [Vitamin D2] 50,000 unit PO Q7D 03/17/16 [History] Mesalamine [Pentasa] 500 mg PO BID 03/17/16 [History] Metformin HCl 1000 mg [Glucophage 1000 MG] 1,000 mg PO BID 03/17/16 [History] Methocarbamol 500 mg [Robaxin 500 MG] 1,000 mg PO QIDPRN PRN 03/17/16 [History] Omeprazole 20 MG [Prilosec 20 mg] 20 mg PO BID 03/17/16 [History] Atorvastatin Calcium 10 mg PO DAILY 01/25/18 [History] Insulin Glargine,Hum.rec.anlog [Basaglar Kwikpen U-100] 36 unit SQ HS 12/05/19 [History] Meclizine HCl 25 mg [Antivert 25 mg] 25 mg PO DAILY PRN 12/05/19 [History] Insulin Aspart [Novolog] 38 unit SQ AC 08/02/20 [History] Isosorbide Mononitrate 60 mg [Imdur 60MG] 120 mg PO DAILY 12/31/20 [History] Levothyroxine Sodium 25 Mcg [Synthroid 25 Mcg] 25 mcg PO DAILY 12/31/20 [History] Metoprolol Succinate 100 mg [Toprol Xl 100 MG] 100 mg PO DAILY 12/31/20 [History] Albuterol Sulfate [Albuterol Sulfate Hfa] 2 puffs IH Q4HPRN PRN 01/18/21 [History] Insulin Glargine,Hum.rec.anlog [Basaglar Kwikpen U-100] 36 unit SQ BREAKFAST 01/18/21 [History] PARoxetine HCl [Paxil] 10 mg PO DAILY 01/18/21 [History] Hx Tetanus, Diphtheria Vaccination/Date Given: No Hx Influenza Vaccination/Date Given: No Hx Pneumococcal Vaccination/Date Given: No Immunizations Up to Date: Yes Travel Risk - International Travel Have you traveled outside of the country in past 3 weeks: No - Coronavirus Screening Are you exhibiting any of the following symptoms?: No Close contact with a COVID-19 positive Pt in past 14-21 Days: No - Vaccine Status Have you recieved a Covid-19 vaccination: No - Review of Systems Constitutional: No Fever, No Chills Eyes: No Symptoms Ears, Nose, & Throat: No Symptoms Respiratory: No Cough, No Dyspnea Cardiac: Chest Pain, No Edema, No Syncope Abdominal/Gastrointestinal: No Abdominal Pain, No Nausea, No Vomiting, No Diarrhea Genitourinary Symptoms: No Dysuria Musculoskeletal: No Back Pain, No Neck Pain Skin: No Rash Neurological: No Dizziness, No Focal Weakness, No Sensory Changes Psychological: No Symptoms Endocrine: No Symptoms All Other Systems: Reviewed and Negative - Past Medical History Pertinent Past Medical History: Yes Neurological History: Migraines ENT History: Cataracts Cardiac History: Coronary Artery Disease, High Cholesterol, Hypertension, Myocardial Infarction ([place]) Respiratory History: Asthma, Bronchitis, COPD, Sleep Apnea Endocrine Medical History: Diabetes Type II Musculoskeletal History: Arthritis, Degenerative Disk Disease, Fibromyalgia, Osteoarthritis GI Medical History: Crohns Disease, Diverticulitis, GERD History: No Pertinent History Psycho-Social History: Anxiety, Depression Female Reproductive Disorders: No Pertinent History Other Medical History: uti, yeast infection, neuropathy - Past Surgical History Past Surgical History: Yes Neuro Surgical History: No Pertinent History Cardiac: Cardiac Catheterization Respiratory: No Pertinent History Gastrointestinal: No Pertinent History Genitourinary: No Pertinent History Musculoskeletal: No Pertinent History Female Surgical History: Dilation & Curettage, Section, Tubal Ligation Other Surgical History: KIDNEY STONE REMOVAL. heart cath x3, no stents - Social History Smoking Status: Never smoker Exposure to second hand smoke: No Alcohol Use: None Drug Use: none Patient Lives Alone: Yes Significant Family History: diabetes, hypertension - Female History Hx Last Menstrual Period: psot - Nursing Vital Signs Nursing Vital Signs: Initial Vital Signs Temperature 97.2 F 04/04/21 08:58 Pulse Rate 80 04/04/21 08:58 Respiratory Rate 20 04/04/21 08:58 Blood Pressure 133/76 04/04/21 08:58 O2 Sat by Pulse Oximetry 97 04/04/21 08:58 Pain Scale Pain Intensity 4 - Physical Exam General Appearance: moderate distress, alert Eye Exam: PERRL/EOMI, eyes nml inspection Ears, Nose, Throat Exam: normal ENT inspection, moist mucous membranes Neck Exam: normal inspection, non-tender, supple, full range of motion Respiratory Exam: normal breath sounds, lungs clear, No respiratory distress Cardiovascular Exam: regular rate/rhythm, normal heart sounds Gastrointestinal/Abdomen Exam: soft, No tenderness, No mass Back Exam: normal inspection, No CVA tenderness, No vertebral tenderness Extremity Exam: normal inspection, normal range of motion Neurologic Exam: alert, oriented x 3, cooperative, normal mood/affect, sensation nml, No motor deficits Skin Exam: normal color, warm, dry SpO2: 97 - Course Nursing assessment & vital signs reviewed: Yes EKG Interpreted by Me: RATE (75), Sinus Rhythm, NORMAL AXIS, prolonged QT interval, NORMAL QRS, Non-specific ST Changes - Radiology Exams Chest X-ray Interpretation: Negative - CT Exams Chest CT Interpretation: Other (CT of the chest shows no evidence of pulmonary embolism no change from 01/18/2021) Ordered Tests: Active Orders 24 hr Category Date Time Status EKG-ER Only STAT Care 04/04/21 09:02 Active IV Insertion STAT Care 04/04/21 09:02 Active CHEST 1 VIEW (PORTABLE) Stat Exams 04/04/21 09:02 Completed CHEST WITH CONTRAST [CT] Stat Exams 04/04/21 09:54 Completed AMYLASE Stat Lab 04/04/21 09:15 Completed CBC W DIFF Stat Lab 04/04/21 09:15 Completed CMP Stat Lab 04/04/21 09:15 Completed CULTURE,URINE Stat Lab 04/04/21 10:16 Received D-DIMER QUANTITATIVE Stat Lab 04/04/21 09:15 Completed LIPASE Stat Lab 04/04/21 09:15 Completed Lactic Acid Stat Lab 04/04/21 09:02 Completed Lactic Acid Stat Lab 04/04/21 11:46 Received MAGNESIUM Stat Lab 04/04/21 09:15 Completed NT PRO BNP Stat Lab 04/04/21 09:15 Completed PROTIME WITH INR Stat Lab 04/04/21 09:15 Completed TROPONIN Q3H Lab 04/04/21 09:15 Completed TROPONIN Q3H Lab 04/04/21 11:50 Completed TROPONIN Q3H Lab 04/04/21 15:15 Ordered TROPONIN Q3H Lab 04/04/21 18:15 Ordered TROPONIN Q3H Lab 04/04/21 21:15 Ordered UA W/RFX UR CULTURE Stat Lab 04/04/21 10:16 Completed Medication Summary Generic Name Dose Route Start Last Admin Trade Name Freq PRN Reason Stop Dose Admin Sodium Chloride 1,000 mls @ 100 mls/hr 04/04/21 09:15 04/04/21 09:24 Sodium Chloride 0.9% 1000 Ml IV 05/04/21 09:14 100 mls/hr .Q10H MITCH Administration Discontinued Medications Generic Name Dose Route Start Last Admin Trade Name Fadia PRN Reason Stop Dose Admin Morphine Sulfate 2 mg 04/04/21 09:02 04/04/21 09:26 Morphine Sulfate 2 Mg Inj IV 04/04/21 09:03 2 mg STAT ONE Administration Morphine Sulfate Confirm 04/04/21 09:20 Morphine Sulfate 2 Mg Inj Administered 04/04/21 09:21 Dose 2 mg .ROUTE .STK-MED ONE Lab/Rad Data: Laboratory Result Diagrams 04/04/21 09:15 04/04/21 09:15 Laboratory Results 04/04/21 04/04/21 04/04/21 Range/Units 11:50 10:16 09:15 WBC (4.0-10.5) K/mm3 RBC (4.1-5.4) M/mm3 Hgb (12.0-16.0) gm/dl Hct (35-47) % MCV (78-100) fl MCH (26-32) pg MCHC (32-36) g/dl RDW (11.5-14.0) % Plt Count (150-450) K/mm3 MPV (7.5-11.0) fl Gran % (36.0-66.0) % Eos # (Auto) (0-0.5) Absolute Lymphs (auto) (1.0-4.6) Absolute Monos (auto) (0.0-1.3) Lymphocytes % (24.0-44.0) % Monocytes % (0.0-12.0) % Eosinophils % (0.00-5.0) % Basophils % (0.0-0.4) % Absolute Granulocytes (1.4-6.9) Basophils # (0-0.4) PT (9.4-12.5) SECONDS INR (0.8-3.0) D-Dimer (215-500) ng/mL Sodium (137-145) mmol/L Potassium (3.5-5.1) mmol/L Chloride (98-107) mmol/L Carbon Dioxide (22-30) mmol/L Anion Gap (5-15) MEQ/L BUN (7-17) mg/dL Creatinine (0.52-1.04) mg/dL Estimated GFR ML/MIN Glucose (74-106) mg/dL Lactic Acid (0.4-2.0) Calcium (8.4-10.2) mg/dL Magnesium (1.6-2.3) mg/dL Total Bilirubin (0.2-1.3) mg/dL AST (14-36) U/L ALT (0-35) U/L Alkaline Phosphatase (38-126) U/L Troponin I < 0.012 < 0.012 (0.000-0.034) ng/mL NT-Pro-B Natriuret Pep (0-900) pg/mL Serum Total Protein (6.3-8.2) g/dL Albumin (3.5-5.0) g/dL Amylase (30-110) U/L Lipase (23-300) U/L Urine Color WILLI (YELLOW) Urine Appearance CLOUDY (CLEAR) Urine pH 5.0 (5-6) Ur Specific Seffner 1.020 (1.005-1.025) Urine Protein 30 (Negative) Urine Ketones NEGATIVE (NEGATIVE) Urine Blood NEGATIVE (0-5) Jeff/ul Urine Nitrite POSITIVE (NEGATIVE) Urine Bilirubin NEGATIVE (NEGATIVE) Urine Urobilinogen 2 (0-1) mg/dL Ur Leukocyte Esterase MODERATE (NEGATIVE) Urine WBC (Auto) >100 (0-5) /HPF Urine RBC (Auto) 3-5 (0-2) /HPF U Epithel Cells (Auto) FEW (FEW) /HPF Urine Bacteria (Auto) MANY (NEGATIVE) /HPF Urine Mucus (Auto) SLIGHT (NEGATIVE) /HPF Urine Culture Reflexed YES (NO) Urine Glucose 150 (NEGATIVE) mg/dL 04/04/21 04/04/21 04/04/21 Range/Units 09:15 09:15 09:15 WBC 7.5 (4.0-10.5) K/mm3 RBC 4.87 (4.1-5.4) M/mm3 Hgb 12.1 (12.0-16.0) gm/dl Hct 40.2 (35-47) % MCV 82.5 (78-100) fl MCH 24.8 L (26-32) pg MCHC 30.1 L (32-36) g/dl RDW 18.2 H (11.5-14.0) % Plt Count 219 (150-450) K/mm3 MPV 12.5 H (7.5-11.0) fl Gran % 74.0 H (36.0-66.0) % Eos # (Auto) 0.29 (0-0.5) Absolute Lymphs (auto) 1.09 (1.0-4.6) Absolute Monos (auto) 0.54 (0.0-1.3) Lymphocytes % 14.5 L (24.0-44.0) % Monocytes % 7.2 (0.0-12.0) % Eosinophils % 3.9 (0.00-5.0) % Basophils % 0.4 (0.0-0.4) % Absolute Granulocytes 5.55 (1.4-6.9) Basophils # 0.03 (0-0.4) PT 13.3 H (9.4-12.5) SECONDS INR 1.13 (0.8-3.0) D-Dimer 576 H* (215-500) ng/mL Sodium 137 (137-145) mmol/L Potassium 4.0 (3.5-5.1) mmol/L Chloride 100 (98-107) mmol/L Carbon Dioxide 28 (22-30) mmol/L Anion Gap 13.1 (5-15) MEQ/L BUN 10 (7-17) mg/dL Creatinine 0.65 (0.52-1.04) mg/dL Estimated GFR > 60.0 ML/MIN Glucose 265 H (74-106) mg/dL Lactic Acid (0.4-2.0) Calcium 9.5 (8.4-10.2) mg/dL Magnesium 1.4 L (1.6-2.3) mg/dL Total Bilirubin 0.40 (0.2-1.3) mg/dL AST 28 (14-36) U/L ALT 26 (0-35) U/L Alkaline Phosphatase 225 H (38-126) U/L Troponin I (0.000-0.034) ng/mL NT-Pro-B Natriuret Pep 513 (0-900) pg/mL Serum Total Protein 7.0 (6.3-8.2) g/dL Albumin 3.7 (3.5-5.0) g/dL Amylase 30 (30-110) U/L Lipase 27 (23-300) U/L Urine Color (YELLOW) Urine Appearance (CLEAR) Urine pH (5-6) Ur Specific Seffner (1.005-1.025) Urine Protein (Negative) Urine Ketones (NEGATIVE) Urine Blood (0-5) Jeff/ul Urine Nitrite (NEGATIVE) Urine Bilirubin (NEGATIVE) Urine Urobilinogen (0-1) mg/dL Ur Leukocyte Esterase (NEGATIVE) Urine WBC (Auto) (0-5) /HPF Urine RBC (Auto) (0-2) /HPF U Epithel Cells (Auto) (FEW) /HPF Urine Bacteria (Auto) (NEGATIVE) /HPF Urine Mucus (Auto) (NEGATIVE) /HPF Urine Culture Reflexed (NO) Urine Glucose (NEGATIVE) mg/dL 04/04/21 Range/Units 09:02 WBC (4.0-10.5) K/mm3 RBC (4.1-5.4) M/mm3 Hgb (12.0-16.0) gm/dl Hct (35-47) % MCV (78-100) fl MCH (26-32) pg MCHC (32-36) g/dl RDW (11.5-14.0) % Plt Count (150-450) K/mm3 MPV (7.5-11.0) fl Gran % (36.0-66.0) % Eos # (Auto) (0-0.5) Absolute Lymphs (auto) (1.0-4.6) Absolute Monos (auto) (0.0-1.3) Lymphocytes % (24.0-44.0) % Monocytes % (0.0-12.0) % Eosinophils % (0.00-5.0) % Basophils % (0.0-0.4) % Absolute Granulocytes (1.4-6.9) Basophils # (0-0.4) PT (9.4-12.5) SECONDS INR (0.8-3.0) D-Dimer (215-500) ng/mL Sodium (137-145) mmol/L Potassium (3.5-5.1) mmol/L Chloride (98-107) mmol/L Carbon Dioxide (22-30) mmol/L Anion Gap (5-15) MEQ/L BUN (7-17) mg/dL Creatinine (0.52-1.04) mg/dL Estimated GFR ML/MIN Glucose (74-106) mg/dL Lactic Acid 2.4 H (0.4-2.0) Calcium (8.4-10.2) mg/dL Magnesium (1.6-2.3) mg/dL Total Bilirubin (0.2-1.3) mg/dL AST (14-36) U/L ALT (0-35) U/L Alkaline Phosphatase (38-126) U/L Troponin I (0.000-0.034) ng/mL NT-Pro-B Natriuret Pep (0-900) pg/mL Serum Total Protein (6.3-8.2) g/dL Albumin (3.5-5.0) g/dL Amylase (30-110) U/L Lipase (23-300) U/L Urine Color (YELLOW) Urine Appearance (CLEAR) Urine pH (5-6) Ur Specific Seffner (1.005-1.025) Urine Protein (Negative) Urine Ketones (NEGATIVE) Urine Blood (0-5) Jeff/ul Urine Nitrite (NEGATIVE) Urine Bilirubin (NEGATIVE) Urine Urobilinogen (0-1) mg/dL Ur Leukocyte Esterase (NEGATIVE) Urine WBC (Auto) (0-5) /HPF Urine RBC (Auto) (0-2) /HPF U Epithel Cells (Auto) (FEW) /HPF Urine Bacteria (Auto) (NEGATIVE) /HPF Urine Mucus (Auto) (NEGATIVE) /HPF Urine Culture Reflexed (NO) Urine Glucose (NEGATIVE) mg/dL - Progress Progress: improved Air Movement: good Blood Culture(s) Obtained: No Antibiotics given: Yes, No - Departure Departure Disposition: Home Clinical Impression: Chest pain, atypical, Urinary tract infection Condition: Stable Critical Care Time: Yes Critical Care Time(excluding separately billable procedures): Critical 30-74 mins Instructions: Chest Pain (DC), Urinary Tract Infections in Adults Prescriptions: Hydrocodone/Acetaminophen [Hydrocodone-Acetamin 5-325 mg] 1 each PO Q6H 3 Days #12 tablet MDD 4 Cephalexin Mh 500 mg [Keflex 500 mg] 500 mg PO TID #21 capsule
[2021-04-04 09:23] LABS: Absolute Neutrophil Ct (ANC) 5.55 (1.4-6.9); BASOPHIL % 0.4 % (0.0-0.4); Basophil (Absolute #) 0.03 (0-0.4); Eosinophil % 3.9 % (0.00-5.0); Eosinophil (Absolute #) 0.29 (0-0.5); Hematocrit 40.2 % (35-47); Hemoglobin 12.1 gm/dl (12.0-16.0); Lymphocyte (Absolute #) 1.09 (1.0-4.6); Lymphocytes % 14.5 % (24.0-44.0); Mean Cell Volume 82.5 fl (78-100); Mean Corpuscular Hemoglobin 24.8 pg (26-32); Mean Corpuscular Hgb Concent. 30.1 g/dl (32-36); Mean Platelet Volume 12.5 fl (7.5-11.0); Monocyte (Absolute #) 0.54 (0.0-1.3); Monocytes % 7.2 % (0.0-12.0); Platelet Count 219 K/mm3 (150-450); Red Blood Count 4.87 M/mm3 (4.1-5.4); Red Cell Distribution Width 18.2 % (11.5-14.0); White Blood Count 7.5 K/mm3 (4.0-10.5)
[2021-04-04 09:32] LABS: INR 1.13 (0.8-3.0); PROTIME 13.3 SECONDS (9.4-12.5)
[2021-04-04 09:42] LABS: ALBUMIN 3.7 g/dL (3.5-5.0); ALKALINE PHOSPHATASE 225 U/L (38-126); AMYLASE 30 U/L (30-110); ANION GAP 13.1 MEQ/L (5-15); BLOOD UREA NITROGEN 10 mg/dL (7-17); CHLORIDE 100 mmol/L (98-107); Calcium 9.5 mg/dL (8.4-10.2); Carbon Dioxide 28 mmol/L (22-30); Creatinine 1 0.65 mg/dL (0.52-1.04); EST GLOMERULAR FILTRATION RATE > 60.0 ML/MIN; Glucose 265 mg/dL (74-106); LIPASE 27 U/L (23-300); MAGNESIUM 1.4 mg/dL (1.6-2.3); NT PRO BNP 513 pg/mL (0-900); SGOT/AST 28 U/L (14-36); SGPT/ALT 26 U/L (0-35); SODIUM 137 mmol/L (137-145)
--- NOTE | 2021-04-04 10:02 | XRAY ---
Exam: AP upright portable chest film from 04/04/2021. Comparison: AP upright portable chest film from 02/21/2021. Indication: Pain. Findings: The transverse heart size appears within normal limits. Atherosclerotic calcification of the aortic arch and moderate tortuosity of the descending thoracic aorta are again seen. The remainder of the boby and mediastinal structures appears unremarkable. The lungs are adequately inflated. Slight elevation of the right hemidiaphragm with respect to the left hemidiaphragm is seen representing no change. No air space infiltrates, vascular congestion, pneumothorax, or pleural effusions are seen. It appears the superior margin lung apices have been barely cut off. No acute osseous process is seen. Impression: 1. No acute cardiopulmonary process is seen, no change from 02/21/2021.
[2021-04-04 10:33] LABS: Appearance CLOUDY (CLEAR); Bacteria MANY /HPF (NEGATIVE); Bilirubin NEGATIVE (NEGATIVE); Blood NEGATIVE Ery/ul (0-5); Epithelial Cells FEW /HPF (FEW); Glucose 150 mg/dL (NEGATIVE); Ketones NEGATIVE (NEGATIVE); Leukocyte Esterase MODERATE (NEGATIVE); Mucus SLIGHT /HPF (NEGATIVE); Nitrite POSITIVE (NEGATIVE); Protein,Urine Dip 30 (Negative); Urobilinogen 2 mg/dL (0-1); WBC >100 /HPF (0-5)
--- NOTE | 2021-04-04 11:51 | XRAY ---
Exam: CT of the chest with IV contrast from 04/04/2021. CTDI: 29.65 mGy Comparison: AP portable chest film from 04/04/[address] of the chest with IV contrast from 01/18/2021. Indication: 60-year-old female with elevated d-dimer and chest pain. Technique: Post-IV contrast axial images were obtained through the chest using the PE protocol during automated injection of 100 ML's of Isovue 370 contrast material. Reconstructed coronal and sagittal images were created and reviewed. Findings: The pulmonary arteries enhance well revealing no filling defects to suggest clot/emboli. This is unchanged from 01/18/2021. A tortuous, atherosclerotic thoracic aorta is seen. Vascular calcification is seen within the aortic arch. No thoracic aortic aneurysm or dissection is seen. I see no pathological mediastinal or perihilar lymphadenopathy. No infiltrates, pneumothorax, or pleural fluid is seen. Minimal posterior dependent atelectasis is seen at the right lung base. There is a tiny stable nodule within the medial right upper lung field representing no change. There is also another very small stable nodular density within the lateral right middle lobe. A suspicious soft tissue lung mass is not seen. The upper abdomen reveals no significant abnormality. The adrenal glands are only partially included on this exam. Of that seen, no abnormalities are detected. Mild scattered thoracic spondylosis is seen. I see no acute fracture or aggressive bone lesion within the skeleton. Impression: 1. No CT evidence of pulmonary embolism is seen, no change from 01/18/2021. 2. Minimal posterior right basilar dependent atelectatic changes are seen. There are also a couple tiny micronodules within the right lung representing no change. 3. No acute cardiopulmonary disease is seen.
[2021-04-04 13:04] VITALS: BP 160/85; PULSE 75; O2SAT 94
== END 2021-04-04 13:37 | disposition home or self-care (01) ==
LOC: ED 08:57
DX: R07.89 Other chest pain (principal); N39.0 Urinary tract infection, site not specified; R51.9 Headache, unspecified; R06.02 Shortness of breath; Z79.899 Other long term (current) drug therapy; I25.10 Atherosclerotic heart disease of native coronary artery without angina pectoris; E78.00 Pure hypercholesterolemia, unspecified; I10 Essential (primary) hypertension; I25.2 Old myocardial infarction; E11.9 Type 2 diabetes mellitus without complications
CPT/HCPCS: 36000; 36415; 71045; 71260; 80053; 81001; 82150; 83605; 83690; 83735; 83880; 84484; 85025; 85379; 85610; 87077; 87086; 87186; 93005; 96374; 99284; 99291; J2270

== ENCOUNTER 2021-05-20 02:11 | Emergency (ER) | payer MEDICARE ==
[2021-05-20 02:38] LABS: Absolute Neutrophil Ct (ANC) 5.95 (1.4-6.9); BASOPHIL % 0.4 % (0.0-0.4); Basophil (Absolute #) 0.03 (0-0.4); Eosinophil % 6.3 % (0.00-5.0); Eosinophil (Absolute #) 0.54 (0-0.5); Hematocrit 35.5 % (35-47); Hemoglobin 10.6 gm/dl (12.0-16.0); Lymphocyte (Absolute #) 1.49 (1.0-4.6); Lymphocytes % 17.5 % (24.0-44.0); Mean Cell Volume 84.5 fl (78-100); Mean Corpuscular Hemoglobin 25.2 pg (26-32); Mean Corpuscular Hgb Concent. 29.9 g/dl (32-36); Mean Platelet Volume 12.6 fl (7.5-11.0); Monocyte (Absolute #) 0.51 (0.0-1.3); Neutrophil % 69.8 % (36.0-66.0); Platelet Count 217 K/mm3 (150-450); Red Cell Distribution Width 16.7 % (11.5-14.0); White Blood Count 8.5 K/mm3 (4.0-10.5)
--- NOTE | 2021-05-20 02:53 | ERPHSYRPT ---
- History of Present Illness Source: patient Exam Limitations: no limitations Patient Subjective Stated Complaint: Patient states " I started feeling SOB around 2300 and it hasn't got any better." Triage Nursing Assessment: Patient arrived to ED and was 1 assist to room in W/C by staff. Patient A/O times 4. Patient able to follow instructions without difficulty. Patient 02 sat upon arrival 99% on room air. Patient with no grunting or gasping and no use of accessory muscle use. Cap refill < 3 seconds. No acute respiratory distress noted. Respiratory regular and easy and nonlabored. + BS times 4 quads. ABD large, obese, non-distended. Patient with no pain or discomfort upon palpitation. Patient with non-pitting edema to bilateral lower extremities. + radial and pedal pulses noted. Patien t states appetite and fluid intake has been normal. Patient states she has had some nausea but no vomiting. Patient states she has had couple of loose stools. Patient denies any dizziness or increase in weakness. Lungs diminshed throughout A/P. No wheezing or course lung sounds heard. Physician History: 61 yo morbidly obese WF w cough/coryza/dyspnea x 3 days. She denies fever/CP/N/V/Melena/hematochezia. Pt states that she does feel some chest di scomfort w deep breaths. Timing/Duration: other (3 days) Activities at Onset: rest Severity of Dyspnea-Max: mild Severity of Dyspnea-Current: mild Possible Cause: occasional episodes Modifying Factors: Improves With: activity Associated Symptoms: cough, productive cough, No lightheadedness, No wheezing, No weakness, No ankle swelling, No chills, No hemoptysis, No calf pain, No dizziness, No heaviness, No heart racing, No lightheadedness, No leg swelling, No muscle spasms feet, No muscle spasms hands, No painful breathing, No sweating, No tightness, No tingling face, No tingling hands Allergies/Adverse Reactions: cyclobenzaprine HCl [From Flexeril] Allergy (Mild, Verified 05/20/21 02:21) Rash metoclopramide [From Reglan] Allergy (Mild, Verified 05/20/21 02:21) Rash Sulfa (Sulfonamide Antibiotics) [Sulfa(Sulfonamide Antibiotics)] Allergy (Mild, Verified 05/20/21 02:21) Rash adhesive Allergy (Verified 05/20/21 02:21) Rash nalbuphine HCl [From Nubain] Adverse Reaction (Intermediate, Verified 05/20/21 02:21) Stomach Cramps patient states she had stomach "burning" and that her legs felt like "rubber bands" ciprofloxacin [From Cipro] Adverse Reaction (Mild, Verified 05/20/21 02:21) meperidine HCl [From Demerol] Adverse Reaction (Mild, Verified 05/20/21 02:21) Vomiting morphine Adverse Reaction (Verified 05/20/21 02:21) ADDICTION PT STATES SHE TOOK MORPHINE YEARS AGO AND IT WAS HARD TO GET OFF OF IT AND DOES NOT WANT IT Home Medications: Duloxetine HCl 60 mg PO DAILY 03/17/16 [History] Ergocalciferol (Vitamin D2) [Vitamin D2] 50,000 unit PO Q7D 03/17/16 [History] Mesalamine [Pentasa] 500 mg PO BID 03/17/16 [History] Metformin HCl 1000 mg [Glucophage 1000 MG] 1,000 mg PO BID 03/17/16 [History] Methocarbamol 500 mg [Robaxin 500 MG] 1,000 mg PO QIDPRN PRN 03/17/16 [History] Omeprazole 20 MG [Prilosec 20 mg] 20 mg PO BID 03/17/16 [History] Atorvastatin Calcium 10 mg PO DAILY 01/25/18 [History] Insulin Glargine,Hum.rec.anlog [Basaglar Kwikpen U-100] 38 unit SQ HS 12/05/19 [History] Meclizine HCl 25 mg [Antivert 25 mg] 25 mg PO DAILY PRN 12/05/19 [History] Insulin Aspart [Novolog] 44 unit SQ AC 08/02/20 [History] Isosorbide Mononitrate 60 mg [Imdur 60MG] 120 mg PO DAILY 12/31/20 [History] Levothyroxine Sodium 25 Mcg [Synthroid 25 Mcg] 25 mcg PO DAILY 12/31/20 [History] Metoprolol Succinate 100 mg [Toprol Xl 100 MG] 100 mg PO DAILY 12/31/20 [History] Albuterol Sulfate [Albuterol Sulfate Hfa] 2 puffs IH Q4HPRN PRN 01/18/21 [History] PARoxetine HCl [Paxil] 10 mg PO DAILY 01/18/21 [History] Hx Tetanus, Diphtheria Vaccination/Date Given: No Hx Influenza Vaccination/Date Given: No Hx Pneumococcal Vaccination/Date Given: No Immunizations Up to Date: Yes Travel Risk - International Travel Have you traveled outside of the country in past 3 weeks: No - Coronavirus Screening Are you exhibiting any of the following symptoms?: Yes Symptoms: Cough: New Onset, Shortness of Breath, Headaches/Body Aches/Fatigue Close contact with a COVID-19 positive Pt in past 14-21 Days: No - Vaccine Status Have you recieved a Covid-19 vaccination: No - Review of Systems Constitutional: No Symptoms Eyes: No Symptoms Ears, Nose, & Throat: No Symptoms Respiratory: No Symptoms, Cough, Dyspnea, Dyspnea on Exertion (ARRINTGON) Cardiac: No Symptoms Abdominal/Gastrointestinal: No Symptoms Genitourinary Symptoms: No Symptoms Musculoskeletal: No Symptoms Skin: No Symptoms Neurological: No Symptoms Psychological: No Symptoms Endocrine: No Symptoms Hematologic/Lymphatic: No Symptoms Immunological/Allergic: No Symptoms - Past Medical History Pertinent Past Medical History: Yes Neurological History: Migraines ENT History: Cataracts Cardiac History: Coronary Artery Disease, High Cholesterol, Hypertension, Myocardial Infarction ([place]) Respiratory History: Asthma, Bronchitis, COPD, Sleep Apnea Endocrine Medical History: Diabetes Type II Musculoskeletal History: Arthritis, Degenerative Disk Disease, Fibromyalgia, Osteoarthritis GI Medical History: Crohns Disease, Diverticulitis, GERD History: No Pertinent History Psycho-Social History: Anxiety, Depression Female Reproductive Disorders: No Pertinent History Other Medical History: HX UTI, HX Yeast Infection, Neuropathy - Past Surgical History Past Surgical History: Yes Neuro Surgical History: No Pertinent History Cardiac: Cardiac Catheterization Respiratory: No Pertinent History Gastrointestinal: No Pertinent History Genitourinary: No Pertinent History Musculoskeletal: No Pertinent History Female Surgical History: Dilation & Curettage, Section, Tubal Ligation Other Surgical History: KIDNEY STONE REMOVAL. heart cath x3, no stents - Social History Smoking Status: Light tobacco smoker How long have you smoked: years Exposure to second hand smoke: No Alcohol Use: None Drug Use: none Patient Lives Alone: Yes Significant Family History: no pertinent family hx, diabetes, hypertension - Female History Hx Last Menstrual Period: POST Hx Now: No - Nursing Vital Signs Nursing Vital Signs: Initial Vital Signs Temperature 98.0 F 05/20/21 02:12 Pulse Rate 97 H 05/20/21 02:12 Respiratory Rate 24 05/20/21 02:12 Blood Pressure 170/90 05/20/21 02:12 O2 Sat by Pulse Oximetry 99 05/20/21 02:12 Pain Scale Pain Intensity 0 Hypertensive - Physical Exam General Appearance: no apparent distress Eye Exam: PERRL/EOMI, eyes nml inspection Ears, Nose, Throat Exam: hearing grossly normal, normal ENT inspection, normal pharynx Neck Exam: normal inspection, non-tender, supple, full range of motion, No Brudzinski, No Kernig's, No meningismus, No carotid bruit, No JVD Respiratory Exam: airway intact, crackles/rales (Faint L base but overall clear), No respiratory distress Cardiovascular/Chest Exam: normal heart sounds, regular rate/rhythm Abdominal/Gastrointestinal Exam: soft, normal bowel sounds, No tenderness Neurologic Exam: alert, oriented x 3, 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, 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, normal mood/affect, nml cerebellar function, nml station & gait, sensation nml, No motor deficits, No sensory deficit Skin Exam: normal color, warm, dry Lymphatic Exam: No adenopathy SpO2 Interpretation: normal SpO2: 99 O2 Delivery: Room Air - Course Nursing assessment & vital signs reviewed: Yes EKG Interpreted by Me: RATE (NSR/R99/Poor R wave progression/Prolonged QTc/Possible early LAFB/No acute ST changes) - Radiology Exams Chest X-ray Interpretation: Interpreted by me (NAD) Ordered Tests: Active Orders 24 hr Category Date Time Status EKG-ER Only STAT Care 05/20/21 02:22 Completed CHEST 1 VIEW (PORTABLE) Stat Exams 05/20/21 02:23 Taken CBC W DIFF Stat Lab 05/20/21 02:30 Completed CMP Stat Lab 05/20/21 02:30 Completed NT PRO BNP Stat Lab 05/20/21 02:30 Completed TROPONIN Q3H Lab 05/20/21 02:30 Completed Lab/Rad Data: Laboratory Result Diagrams 05/20/21 02:30 05/20/21 02:30 Laboratory Results 05/20/21 05/20/21 05/20/21 Range/Units 02:30 02:30 02:30 WBC (4.0-10.5) K/mm3 RBC (4.1-5.4) M/mm3 Hgb (12.0-16.0) gm/dl Hct (35-47) % MCV (78-100) fl MCH (26-32) pg MCHC (32-36) g/dl RDW (11.5-14.0) % Plt Count (150-450) K/mm3 MPV (7.5-11.0) fl Gran % (36.0-66.0) % Eos # (Auto) (0-0.5) Absolute Lymphs (auto) (1.0-4.6) Absolute Monos (auto) (0.0-1.3) Lymphocytes % (24.0-44.0) % Monocytes % (0.0-12.0) % Eosinophils % (0.00-5.0) % Basophils % (0.0-0.4) % Absolute Granulocytes (1.4-6.9) Basophils # (0-0.4) Sodium 135 L (137-145) mmol/L Potassium 4.2 (3.5-5.1) mmol/L Chloride 100 (98-107) mmol/L Carbon Dioxide 24 (22-30) mmol/L Anion Gap 15.0 (5-15) MEQ/L BUN 19 H (7-17) mg/dL Creatinine 0.56 (0.52-1.04) mg/dL Estimated GFR > 60.0 ML/MIN Glucose 411 H (74-106) mg/dL Calcium 9.1 (8.4-10.2) mg/dL Total Bilirubin 0.20 (0.2-1.3) mg/dL AST 61 H (14-36) U/L ALT 52 H (0-35) U/L Alkaline Phosphatase 218 H (38-126) U/L Troponin I < 0.012 (0.000-0.034) ng/mL NT-Pro-B Natriuret Pep 260 (0-900) pg/mL Serum Total Protein 7.2 (6.3-8.2) g/dL Albumin 3.7 (3.5-5.0) g/dL SARS-CoV-2 (PCR) NEGATIVE (NEGATIVE) 05/20/21 Range/Units 02:30 WBC 8.5 (4.0-10.5) K/mm3 RBC 4.20 (4.1-5.4) M/mm3 Hgb 10.6 L (12.0-16.0) gm/dl Hct 35.5 (35-47) % MCV 84.5 (78-100) fl MCH 25.2 L (26-32) pg MCHC 29.9 L (32-36) g/dl RDW 16.7 H (11.5-14.0) % Plt Count 217 (150-450) K/mm3 MPV 12.6 H (7.5-11.0) fl Gran % 69.8 H (36.0-66.0) % Eos # (Auto) 0.54 H (0-0.5) Absolute Lymphs (auto) 1.49 (1.0-4.6) Absolute Monos (auto) 0.51 (0.0-1.3) Lymphocytes % 17.5 L (24.0-44.0) % Monocytes % 6.0 (0.0-12.0) % Eosinophils % 6.3 H (0.00-5.0) % Basophils % 0.4 (0.0-0.4) % Absolute Granulocytes 5.95 (1.4-6.9) Basophils # 0.03 (0-0.4) Sodium (137-145) mmol/L Potassium (3.5-5.1) mmol/L Chloride (98-107) mmol/L Carbon Dioxide (22-30) mmol/L Anion Gap (5-15) MEQ/L BUN (7-17) mg/dL Creatinine (0.52-1.04) mg/dL Estimated GFR ML/MIN Glucose (74-106) mg/dL Calcium (8.4-10.2) mg/dL Total Bilirubin (0.2-1.3) mg/dL AST (14-36) U/L ALT (0-35) U/L Alkaline Phosphatase (38-126) U/L Troponin I (0.000-0.034) ng/mL NT-Pro-B Natriuret Pep (0-900) pg/mL Serum Total Protein (6.3-8.2) g/dL Albumin (3.5-5.0) g/dL SARS-CoV-2 (PCR) (NEGATIVE) - Progress Counseled pt/family regarding: lab results, diagnosis, need for follow-up, rad results - Departure Departure Disposition: Home Clinical Impression: Bronchitis Condition: Stable Critical Care Time: No Referrals: CALVIN PALOMINO [Primary Care Provider] - Instructions: Shortness of Breath (Dyspnea) (DC), Acute Bronchitis Additional Instructions: Start Doxycycline twice a day for 10 days Follow up with your family MD in 1-2 days Return to ER for increasing shortness of breath or temperature greater than 100.5 Prescriptions: Doxycycline Monohydrate 100 mg PO BID #20 tablet
[2021-05-20 03:02] LABS: ALBUMIN 3.7 g/dL (3.5-5.0); ALKALINE PHOSPHATASE 218 U/L (38-126); BLOOD UREA NITROGEN 19 mg/dL (7-17); CHLORIDE 100 mmol/L (98-107); Calcium 9.1 mg/dL (8.4-10.2); Carbon Dioxide 24 mmol/L (22-30); Creatinine 1 0.56 mg/dL (0.52-1.04); EST GLOMERULAR FILTRATION RATE > 60.0 ML/MIN; Glucose 411 mg/dL (74-106); NT PRO BNP 260 pg/mL (0-900); Potassium 4.2 mmol/L (3.5-5.1); SGOT/AST 61 U/L (14-36); SGPT/ALT 52 U/L (0-35); SODIUM 135 mmol/L (137-145); Total Protein 7.2 g/dL (6.3-8.2)
[2021-05-20 04:15] VITALS: BP 136/62; PULSE 98
[2021-05-20 05:51] VITALS: O2SAT 99
--- NOTE | 2021-05-20 09:16 | XRAY ---
Indication: Cough. Dyspnea. Comparison: April 04, 2021. Portable chest slightly less inflated again without focal infiltrate, consolidation, or large effusion. Heart not enlarged again with tortuous descending aorta. Bony thorax intact again with mild osteopenia and degenerative changes. Impression: Continued nonacute chest with chronic features.
== END 2021-05-20 04:16 | disposition home or self-care (01) ==
LOC: ED 02:11
DX: J40 Bronchitis, not specified as acute or chronic (principal)
CPT/HCPCS: 36415; 71045; 80053; 83880; 84484; 85025; 93005; 99284; U0003

== ENCOUNTER 2021-05-31 13:41 | Emergency (ER) | payer MEDICARE ==
[2021-05-31] MEDS ORDERED: Pepcid 20 MG PO ONE (14:36)
[2021-05-31] MEDS ORDERED: ZOFRAN ODT 4 MG PO ONE (14:37)
--- NOTE | 2021-05-31 14:41 | ERPHSYRPT ---
- History of Present Illness Time Seen by Provider: 05/31/21 14:37 Source: patient Exam Limitations: no limitations Patient Subjective Stated Complaint: Pt states "I was diagnosed with bronchitis by Dr. Holguin and he put me on prednisone and this new antibiotic and now I am nauseated really bad." Triage Nursing Assessment: PT presented alert and oriented X 3, skin pwd Pt ambulates with an upright steady gait, able to speak in clear full sentences. Pt coughing intermittantly, able to speak in full raspy sentences. Physician History: Pt states "I was diagnosed with bronchitis by Dr. Holguin and he put me on prednisone and this new antibiotic and now I am nauseated really bad." c/o stomach upset. no other symptoms Severity: mild Associated Symptoms: denies symptoms Allergies/Adverse Reactions: cyclobenzaprine HCl [From Flexeril] Allergy (Mild, Verified 05/20/21 02:21) Rash metoclopramide [From Reglan] Allergy (Mild, Verified 05/20/21 02:21) Rash Sulfa (Sulfonamide Antibiotics) [Sulfa(Sulfonamide Antibiotics)] Allergy (Mild, Verified 05/20/21 02:21) Rash adhesive Allergy (Verified 05/20/21 02:21) Rash nalbuphine HCl [From Nubain] Adverse Reaction (Intermediate, Verified 05/20/21 02:21) Stomach Cramps patient states she had stomach "burning" and that her legs felt like "rubber bands" ciprofloxacin [From Cipro] Adverse Reaction (Mild, Verified 05/20/21 02:21) meperidine HCl [From Demerol] Adverse Reaction (Mild, Verified 05/20/21 02:21) Vomiting morphine Adverse Reaction (Verified 05/20/21 02:21) ADDICTION PT STATES SHE TOOK MORPHINE YEARS AGO AND IT WAS HARD TO GET OFF OF IT AND DOES NOT WANT IT Home Medications: Duloxetine HCl 60 mg PO DAILY 03/17/16 [History] Ergocalciferol (Vitamin D2) [Vitamin D2] 50,000 unit PO Q7D 03/17/16 [History] Mesalamine [Pentasa] 500 mg PO BID 03/17/16 [History] Metformin HCl 1000 mg [Glucophage 1000 MG] 1,000 mg PO BID 03/17/16 [History] Methocarbamol 500 mg [Robaxin 500 MG] 1,000 mg PO QIDPRN PRN 03/17/16 [History] Omeprazole 20 MG [Prilosec 20 mg] 20 mg PO BID 03/17/16 [History] Atorvastatin Calcium 10 mg PO DAILY 01/25/18 [History] Insulin Glargine,Hum.rec.anlog [Basaglar Kwikpen U-100] 38 unit SQ HS 12/05/19 [History] Meclizine HCl 25 mg [Antivert 25 mg] 25 mg PO DAILY PRN 12/05/19 [History] Insulin Aspart [Novolog] 44 unit SQ AC 08/02/20 [History] Isosorbide Mononitrate 60 mg [Imdur 60MG] 120 mg PO DAILY 12/31/20 [History] Levothyroxine Sodium 25 Mcg [Synthroid 25 Mcg] 25 mcg PO DAILY 12/31/20 [History] Metoprolol Succinate 100 mg [Toprol Xl 100 MG] 100 mg PO DAILY 12/31/20 [History] Albuterol Sulfate [Albuterol Sulfate Hfa] 2 puffs IH Q4HPRN PRN 01/18/21 [History] PARoxetine HCl [Paxil] 10 mg PO DAILY 01/18/21 [History] Cefdinir [Omnicef] 300 mg PO BID 05/31/21 [History] Hx Tetanus, Diphtheria Vaccination/Date Given: No Hx Influenza Vaccination/Date Given: No Hx Pneumococcal Vaccination/Date Given: No Immunizations Up to Date: Yes Travel Risk - International Travel Have you traveled outside of the country in past 3 weeks: No - Coronavirus Screening Are you exhibiting any of the following symptoms?: No - Vaccine Status Have you recieved a Covid-19 vaccination: No - Review of Systems Constitutional: No Fever, No Chills Eyes: No Symptoms Ears, Nose, & Throat: No Symptoms Respiratory: No Cough, No Dyspnea Cardiac: No Chest Pain, No Edema, No Syncope Abdominal/Gastrointestinal: Nausea, No Abdominal Pain, No Vomiting, No Diarrhea Genitourinary Symptoms: No Dysuria Musculoskeletal: No Back Pain, No Neck Pain Skin: No Rash Neurological: No Dizziness, No Focal Weakness, No Sensory Changes Psychological: No Symptoms Endocrine: No Symptoms All Other Systems: Reviewed and Negative - Past Medical History Pertinent Past Medical History: Yes Neurological History: Migraines ENT History: Cataracts Cardiac History: Coronary Artery Disease, High Cholesterol, Hypertension, Myocardial Infarction ([place]) Respiratory History: Asthma, Bronchitis, COPD, Sleep Apnea Endocrine Medical History: Diabetes Type II Musculoskeletal History: Arthritis, Degenerative Disk Disease, Fibromyalgia, Osteoarthritis GI Medical History: Crohns Disease, Diverticulitis, GERD History: No Pertinent History Psycho-Social History: Anxiety, Depression Female Reproductive Disorders: No Pertinent History Other Medical History: HX UTI, HX Yeast Infection, Neuropathy - Past Surgical History Past Surgical History: Yes Neuro Surgical History: No Pertinent History Cardiac: Cardiac Catheterization Respiratory: No Pertinent History Gastrointestinal: No Pertinent History Genitourinary: No Pertinent History Musculoskeletal: No Pertinent History Female Surgical History: Dilation & Curettage, Section, Tubal Ligation Other Surgical History: KIDNEY STONE REMOVAL. heart cath x3, no stents - Social History Smoking Status: Light tobacco smoker How long have you smoked: years Exposure to second hand smoke: No Alcohol Use: None Drug Use: none Patient Lives Alone: Yes Significant Family History: no pertinent family hx, diabetes, hypertension - Nursing Vital Signs Nursing Vital Signs: Initial Vital Signs Temperature 97.8 F 05/31/21 13:51 Pulse Rate 82 05/31/21 13:51 Respiratory Rate 22 05/31/21 13:51 Blood Pressure 138/71 05/31/21 13:51 O2 Sat by Pulse Oximetry 96 05/31/21 13:51 Pain Scale Pain Intensity 4 - Physical Exam General Appearance: no apparent distress, alert Eye Exam: PERRL/EOMI, eyes nml inspection Ears, Nose, Throat Exam: normal ENT inspection, TMs normal, pharynx normal, moist mucous membranes Neck Exam: normal inspection, non-tender, supple, full range of motion Respiratory Exam: normal breath sounds, lungs clear, No respiratory distress Cardiovascular Exam: regular rate/rhythm, normal heart sounds, normal peripheral pulses Gastrointestinal/Abdomen Exam: soft, normal bowel sounds, No tenderness, No mass Back Exam: normal inspection, normal range of motion, No CVA tenderness, No vertebral tenderness Extremity Exam: normal inspection, normal range of motion, pelvis stable Neurologic Exam: alert, oriented x 3, cooperative, normal mood/affect, nml cerebellar function, nml station & gait, sensation nml, No motor deficits Skin Exam: normal color, warm, dry, No rash Lymphatic Exam: No adenopathy SpO2: 96 - Course Nursing assessment & vital signs reviewed: Yes Ordered Tests: Medication Summary Generic Name Dose Route Start Last Admin Trade Name Freq PRN Reason Stop Dose Admin Ondansetron HCl 4 mg 05/31/21 14:37 Zofran Odt 4 Mg PO 05/31/21 14:38 STAT ONE Discontinued Medications Generic Name Dose Route Start Last Admin Trade Name Freq PRN Reason Stop Dose Admin Famotidine 40 mg 05/31/21 14:36 Pepcid 20 Mg PO 05/31/21 14:37 STAT ONE - Progress Progress: improved, pain not gone completely Counseled pt/family regarding: diagnosis, need for follow-up - Departure Departure Disposition: Home Clinical Impression: Gastritis, allergic reaction Condition: Stable Critical Care Time: No Referrals: CALVIN HOLGUIN [Primary Care Provider] - Instructions: Side Effects From Medicines, Adverse Drug Reactions, Adult (DC) Additional Instructions: Stop ceftin. Start Zpak. Continue Probiotics [place] JAMESON was seen on 05/31/21 n the Emergency Room. At that time you were treated for an emergent condition, during your visit Laboratory, Radiology and/or other procedures may have been ordered. It is very important that you follow-up with your Primary Care Physician CALVIN HOLGUIN within the next 24-48 hours to review your Emergency Room visit and the final results of testing that was ordered. Some test results such as Urine Cultures, Blood Cultures, and other cultures if ordered will not be finalized for 24-48 hours. If you do not have a Primary Care Provider please call the medical records department at [phone] ext [phone] to obtain a copy of your results or you may sign into our patient portal to obtain these results by visiting us @ [email or web address] and completing the following steps: 1. Click on the Patient Portal link 2. Click the Patient Self Enrollment Link to complete the enrollment form and entering your 3. Once the enrollment form is completed you will receive an email with a temporary ID and password at the email address you provided. 4. Next choose a user name and password. Your user name must be at least 4 characters long and your password must be at least 4 characters long. 5. Choose a security question from the list and provide your answer to the question. If you already have signed into the Health Portal you may access your Health Care Information 03/05 by the following steps: 1. Login to our website @ [email or web address] 2. Enter your original user name and password. FAQS The [facility] Health Portal is an online tool that contains your Lab Results, Radiology Reports, Visit History, Discharge Instructions and Health Summary Lab and Radiology Results will not be available for 72 hours on the portal. The Portal is a secure site, passwords are encryted and URLs are re-written so they cannot be copied and pasted. You and authorized family members are the only ones who can access your Portal. Also there is a timeout feature that protects your information if you leave the Portal page open. If you have technical difficulty please use the Contact Us link on the page this will allow you to submit any questions you have regarding the Portal or you may contact the Medical Record Department at [phone]. Prescriptions: Azithromycin [Zithromax] 250 mg PO UD 5 Days #6 tablet
[2021-05-31] MEDS ORDERED: Pepcid 20 MG ONE (14:43)
[2021-05-31] MEDS ORDERED: ZOFRAN ODT 4 MG ONE (14:43)
[2021-05-31 14:59] VITALS: BP 131/69; PULSE 78; O2SAT 98
== END 2021-05-31 14:59 | disposition home or self-care (01) ==
LOC: ED 13:41
DX: K29.70 Gastritis, unspecified, without bleeding (principal); T78.40XA Allergy, unspecified, initial encounter; Z79.899 Other long term (current) drug therapy; I10 Essential (primary) hypertension; I25.2 Old myocardial infarction; E11.9 Type 2 diabetes mellitus without complications; G47.30 Sleep apnea, unspecified; K50.90 Crohn's disease, unspecified, without complications
CPT/HCPCS: 99283; Q0162; A9270-GY

== ENCOUNTER 2021-06-10 21:53 | Observation (INO) | payer MEDICARE ==
[2021-06-10] MEDS ORDERED: Zofran 4 MG/2 ML VIAL IV ONE (23:05)
[2021-06-10] MEDS ORDERED: TYLENOL 325 MG PO ONE (23:05)
[2021-06-10] MEDS ORDERED: Zofran 4 MG/2 ML VIAL ONE (23:48)
[2021-06-10] MEDS ORDERED: TYLENOL 325 MG ONE (23:48)
--- NOTE | 2021-06-10 23:52 | ERPHSYRPT ---
- History of Present Illness Time Seen by Provider: 06/10/21 22:00 Source: patient Exam Limitations: no limitations Patient Subjective Stated Complaint: Patient states " I don't have just one specific complaint. I have been having N/V, cough, Headache, loose stools etc now for over a month and I am tired of it. I was here 3 weeks ago and was tested for COVID which was Negative." The nausea and headache is wan has brought me in tonight." Triage Nursing Assessment: Patient arrived to ED and ambulated back to room without difficulty. Patient A/O times 4. Patient able to follow instructions without difficulty. Patient stated she has general complaints that involve COVID-19. Patient stated she has a dry, non-productive cough and she isn't able to get anything up. Lungs diminished A/P throughout. Respiratory regular and easy and non-labored. No acute respiratory distress noted. 02 sat 97% on room air. No accessory muscle use or nasal flaring noted. Patient noted to have DX COPD. Patient stated she did see PCP about 1 week ago and she just finished prednisone that he ordered. Patient ABD large, obese, non-tender. Patient denies any pain or discomfort upon palpitation. Patient with non-pitting edema to bilateral lower extremities. + pedal pulses noted bilateral. Patient states she has been nauseated all day but no vomiting. Patient states she has been having loose stools for last month. Patient states appetite and fluid intake has been normal. Skin turgor < 3 seconds. Oral mucosa moist. No visual S/S of dehydration noted. Urine collected and dark yellow/orange in color. Patient denies any pain or burning upon urination. Physician History: 61 years old female with history of diabetes mellitus, hypertension, morbid obesity presented in the ER with multiple complaints for almost 1 month. Patient reports off-and-on headache, body aches, generalized weakness fatigue, nausea, and loose stool, cough with some shortness of breath on exertion which are progressively worsening. She has finished course of Z-Marlo and has been tested for Covid 3 weeks ago which was negative. Denies any fever but has chi lls. Timing/Duration: week(s) (4), intermittent, gradual onset, worse Cough Quality/Degree: moderate, dry cough Possible Cause: unknown cause Associated Symptoms: chills, chest pain/soreness, cough, dizziness, headache, lightheadedness, nasal congestion, nasal drainage, shortness of breath, sinus in fection, sore throat, No fever Allergies/Adverse Reactions: cyclobenzaprine HCl [From Flexeril] Allergy (Mild, Verified 06/10/21 22:45) Rash metoclopramide [From Reglan] Allergy (Mild, Verified 06/10/21 22:45) Rash Sulfa (Sulfonamide Antibiotics) [Sulfa(Sulfonamide Antibiotics)] Allergy (Mild, Verified 06/10/21 22:45) Rash adhesive Allergy (Verified 06/10/21 22:45) Rash nalbuphine HCl [From Nubain] Adverse Reaction (Intermediate, Verified 06/10/21 22:45) Stomach Cramps patient states she had stomach "burning" and that her legs felt like "rubber bands" ciprofloxacin [From Cipro] Adverse Reaction (Mild, Verified 06/10/21 22:45) meperidine HCl [From Demerol] Adverse Reaction (Mild, Verified 06/10/21 22:45) Vomiting morphine Adverse Reaction (Verified 06/10/21 22:45) ADDICTION PT STATES SHE TOOK MORPHINE YEARS AGO AND IT WAS HARD TO GET OFF OF IT AND D OES NOT WANT IT Home Medications: Duloxetine HCl 60 mg PO DAILY 03/17/16 [History] Mesalamine [Pentasa] 500 mg PO BID 03/17/16 [History] Metformin HCl 1000 mg [Glucophage 1000 MG] 1,000 mg PO BID 03/17/16 [History] Methocarbamol 500 mg [Robaxin 500 MG] 1,000 mg PO QIDPRN PRN 03/17/16 [History] Omeprazole 20 MG [Prilosec 20 mg] 20 mg PO BID 03/17/16 [History] Atorvastatin Calcium 10 mg PO DAILY 01/25/18 [History] Insulin Glargine,Hum.rec.anlog [Basaglar Kwikpen U-100] 38 unit SQ HS 12/05/19 [History] Meclizine HCl 25 mg [Antivert 25 mg] 25 mg PO DAILY PRN 12/05/19 [History] Insulin Aspart [Novolog] 44 unit SQ AC 08/02/20 [History] Isosorbide Mononitrate 60 mg [Imdur 60MG] 120 mg PO DAILY 12/31/20 [History] Levothyroxine Sodium 25 Mcg [Synthroid 25 Mcg] 25 mcg PO DAILY 12/31/20 [History] Metoprolol Succinate 100 mg [Toprol Xl 100 MG] 100 mg PO DAILY 12/31/20 [History] Albuterol Sulfate [Albuterol Sulfate Hfa] 2 puffs IH Q4HPRN PRN 01/18/21 [History] PARoxetine HCl [Paxil] 10 mg PO DAILY 01/18/21 [History] L.acidoph,Paracasei, B.lactis [Probiotic] 1 cap PO DAILY 06/11/21 [History] Hx Tetanus, Diphtheria Vaccination/Date Given: No Hx Influenza Vaccination/Date Given: No Hx Pneumococcal Vaccination/Date Given: No Immunizations Up to Date: Yes Travel Risk - International Travel Have you traveled outside of the country in past 3 weeks: No - Coronavirus Screening Are you exhibiting any of the following symptoms?: Yes Symptoms: Cough: New Onset, Shortness of Breath, Vomiting/Diarrhea, Loss of Ta klaudia or Smell, Headaches/Body Aches/Fatigue Close contact with a COVID-19 positive Pt in past 14-21 Days: No - Vaccine Status Have you recieved a Covid-19 vaccination: No - Review of Systems Constitutional: Chills, Fatigue, Weakness Eyes: No Symptoms Ears, Nose, & Throat: Nose Congestion Respiratory: Cough, Dyspnea, Wheezing Cardiac: Chest Pain Abdominal/Gastrointestinal: Abdominal Pain, Nausea, Diarrhea Genitourinary Symptoms: No Symptoms Musculoskeletal: Back Pain, Myalgias Skin: No Symptoms Neurological: Dizziness, Headache Psychological: Anxiety Endocrine: No Symptoms Hematologic/Lymphatic: No Symptoms Immunological/Allergic: No Symptoms - Past Medical History Pertinent Past Medical History: Yes Neurological History: Migraines ENT History: Cataracts Cardiac History: Coronary Artery Disease, High Cholesterol, Hypertension, Myocardial Infarction (CT) Respiratory History: Asthma, Bronchitis, COPD, Sleep Apnea Endocrine Medical History: Diabetes Type II Musculoskeletal History: Arthritis, Degenerative Disk Disease, Fibromyalgia, Osteoarthritis GI Medical History: Crohns Disease, Diverticulitis, GERD History: No Pertinent History Psycho-Social History: Anxiety, Depression Female Reproductive Disorders: No Pertinent History Other Medical History: HX UTI, HX Yeast Infection, Neuropathy - Past Surgical History Past Surgical History: Yes Neuro Surgical History: No Pertinent History Cardiac: Cardiac Catheterization Respiratory: No Pertinent History Gastrointestinal: No Pertinent History Genitourinary: No Pertinent History Musculoskeletal: No Pertinent History Female Surgical History: Dilation & Curettage, Section, Tubal Ligation Other Surgical History: KIDNEY STONE REMOVAL. heart cath x3, no stents - Social History Smoking Status: Never smoker How long have you smoked: years Exposure to second hand smoke: No Alcohol Use: None Drug Use: none Patient Lives Alone: Yes Significant Family History: no pertinent family hx, diabetes, hypertension - Female History Hx Last Menstrual Period: POST Hx Now: No - Nursing Vital Signs Nursing Vital Signs: Initial Vital Signs Temperature 97.9 F 06/10/21 22:42 Pulse Rate 113 H 06/10/21 22:42 Respiratory Rate 24 06/10/21 22:42 Blood Pressure 178/86 06/10/21 22:42 O2 Sat by Pulse Oximetry 97 06/10/21 22:42 Pain Scale Pain Intensity 2 - Physical Exam General Appearance: no apparent distress, alert Eye Exam: PERRL/EOMI, eyes nml inspection Ears, Nose, Throat Exam: moist mucous membranes, pharyngeal erythema Neck Exam: normal inspection, non-tender, full range of motion Respiratory Exam: normal breath sounds, lungs clear Cardiovascular Exam: normal heart sounds, tachycardia Gastrointestinal/Abdomen Exam: soft, normal bowel sounds, No tenderness Back Exam: normal inspection, normal range of motion Extremity Exam: normal inspection, normal range of motion, pelvis stable Neurologic Exam: alert, oriented x 3, cooperative, smoke control supervisor II-XII nml as tested, nml cerebellar function, sensation nml, No motor deficits, No sensory deficit Skin Exam: normal color SpO2 Interpretation: normal SpO2: 95 O2 Delivery: Room Air Ordered Tests: Medication Summary Discontinued Medications Generic Name Dose Route Start Last Admin Trade Name Freq PRN Reason Stop Dose Admin Acetaminophen 975 mg 06/10/21 23:05 06/10/21 23:50 Tylenol 325 Mg PO 06/10/21 23:06 975 mg STAT ONE Administration Acetaminophen Confirm 06/10/21 23:48 Tylenol 325 Mg Administered 06/10/21 23:49 Dose 975 mg .ROUTE .STK-MED ONE Albuterol Sulfate 2 puff 06/11/21 10:15 Ventolin Common Canister IH 07/11/21 10:14 Q4HPRN PRN Albuterol/Ipratropium 3 ml 06/11/21 04:19 Duoneb 0.5-3 Mg/3 Ml Neb IH 07/11/21 04:18 Q4HPRN PRN SHORTNESS OF BREATH/WHEEZING Diclofenac Sodium 1 gm 06/11/21 10:00 06/12/21 11:09 Voltaren Gel TP 07/11/21 09:59 Not Given TID MITCH Duloxetine HCl 60 mg 06/11/21 10:00 06/12/21 11:08 Cymbalta 30 Mg Capsule PO 07/11/21 09:59 60 mg DAILY MITCH Administration Sodium Chloride 1,000 mls @ 999 mls/hr 06/11/21 00:17 06/11/21 02:44 Sodium Chloride 0.9% 1000 Ml IV 06/11/21 01:17 Infused .Q1H1M STA Infusion Levofloxacin/Dextrose 750 mg in 150 mls @ 100 mls/hr 06/11/21 00:44 06/11/21 02:44 Levofloxacin 750mg/150ml D5w IV 06/11/21 02:13 Infused STAT STA Infusion Sodium Chloride Confirm 06/11/21 01:01 Sodium Chloride 0.9% 1000 Ml Administered 06/11/21 01:02 Dose 1,000 mls @ ud .ROUTE .STK-MED ONE Levofloxacin/Dextrose Confirm 06/11/21 01:01 Levofloxacin 750mg/150ml D5w Administered 06/11/21 01:02 Dose 750 mg in 150 mls @ ud IV .STK-MED ONE Levofloxacin/Dextrose 750 mg in 150 mls @ 100 mls/hr 06/11/21 22:00 06/11/21 21:32 Levofloxacin 750mg/150ml D5w IV 07/11/21 21:59 100 mls/hr Q24H22 MITCH Administration Insulin Glargine 38 unit 06/11/21 22:00 06/11/21 21:32 Lantus Insulin SQ 07/11/21 21:59 38 unit HS MITCH Administration Insulin Human Lispro 0 unit 06/11/21 04:19 06/11/21 13:01 Humalog SQ 07/11/21 04:18 5 unit UD PRN Administration HYPERGLYCEMIA Insulin Human Lispro 44 unit 06/11/21 11:30 06/12/21 08:38 Humalog SQ 07/11/21 11:29 44 unit AC MITCH Administration Insulin Human Regular 8 unit 06/11/21 00:28 06/11/21 01:04 Humulin R IV 06/11/21 00:29 8 unit STAT ONE Administration Insulin Human Regular Confirm 06/11/21 01:00 Humulin R Administered 06/11/21 01:01 Dose 8 unit .ROUTE .STK-MED ONE Isosorbide Mononitrate 120 mg 06/11/21 10:00 06/12/21 11:15 Imdur 60mg PO 07/11/21 09:59 Not Given DAILY MITCH Ketorolac Tromethamine 30 mg 06/11/21 07:44 06/11/21 07:57 Toradol 30 Mg Injection IV 06/11/21 07:45 30 mg NOW ONE Administration Lactobacillus Acidophilus 1 tab 06/11/21 10:00 06/12/21 11:08 Acidophilus Tablet PO 07/11/21 09:59 1 tab DAILY MITCH Administration Levothyroxine Sodium 25 mcg 06/11/21 10:00 06/12/21 11:08 Synthroid 25 Mcg PO 07/11/21 09:59 25 mcg DAILY MITCH Administration Meclizine HCl 25 mg 06/11/21 09:49 Antivert 25 Mg PO 07/11/21 09:48 DAILY PRN DIZZINESS Methocarbamol 1,000 mg 06/11/21 09:49 Robaxin 500 Mg PO 07/11/21 09:48 QIDPRN PRN PAIN Metoprolol Succinate 100 mg 06/11/21 10:00 06/12/21 11:14 Toprol Xl 100 Mg PO 07/11/21 09:59 Not Given DAILY [facility] Miscellaneous Information 1 each 06/11/21 10:00 Medication Intervention MC 07/11/21 09:59 .RN TO CHECK MITCH Non-Formulary Medication 500 mg 06/11/21 10:00 Mesalamine [Pentasa] PO 07/11/21 09:59 BID MITCH Ondansetron HCl 4 mg 06/10/21 23:05 06/10/21 23:50 Zofran 4 Mg/2 Ml Vial IV 06/10/21 23:06 4 mg STAT ONE Administration Ondansetron HCl Confirm 06/10/21 23:48 Zofran 4 Mg/2 Ml Vial Administered 06/10/21 23:49 Dose 4 mg .ROUTE .STK-MED ONE Ondansetron HCl 4 mg 06/11/21 04:19 06/11/21 18:33 Zofran 4 Mg/2 Ml Vial IV 07/11/21 04:18 4 mg Q6H PRN PRN Administration NAUSEA/VOMITING Oxycodone/Acetaminophen 2 tab 06/10/21 23:59 06/11/21 00:12 Percocet Tablet 5/325mg PO 06/11/21 00:00 2 tab STAT ONE Administration Oxycodone/Acetaminophen Confirm 06/11/21 00:11 Percocet Tablet 5/325mg Administered 06/11/21 00:12 Dose 2 tab .ROUTE .STK-MED ONE Oxycodone/Acetaminophen 2 tab 06/11/21 08:44 06/12/21 07:13 Percocet Tablet 5/325mg PO 06/16/21 08:43 2 tab Q6H PRN PRN Administration PAIN Pantoprazole Sodium 40 mg 06/11/21 10:00 Protonix 40 Mg Iv IV 07/11/21 09:59 Q24H10 MITCH Pantoprazole Sodium 40 mg 06/11/21 10:00 06/12/21 11:08 Protonix 40mg Tablet PO 07/11/21 09:59 40 mg DAILY MITCH Administration Simvastatin 10 mg 06/11/21 10:00 06/12/21 11:08 Zocor 10mg PO 07/11/21 09:59 10 mg DAILY MITCH Administration Sumatriptan Succinate 6 mg 06/11/21 08:44 06/12/21 08:57 Imitrex 6 Mg/0.5 Ml SQ 07/11/21 09:59 6 mg DAILY PRN Administration migraine Lab/Rad Data: Laboratory Result Diagrams 06/10/21 23:21 06/10/21 23:21 Laboratory Results 06/11/21 06/11/21 06/11/21 Range/Units 02:02 02:00 01:49 WBC (4.0-10.5) K/mm3 RBC (4.1-5.4) M/mm3 Hgb (12.0-16.0) gm/dl Hct (35-47) % MCV (78-100) fl MCH (26-32) pg MCHC (32-36) g/dl RDW (11.5-14.0) % Plt Count (150-450) K/mm3 MPV (7.5-11.0) fl Gran % (36.0-66.0) % Eos # (Auto) (0-0.5) Absolute Lymphs (auto) (1.0-4.6) Absolute Monos (auto) (0.0-1.3) Lymphocytes % (24.0-44.0) % Monocytes % (0.0-12.0) % Eosinophils % (0.00-5.0) % Basophils % (0.0-0.4) % Absolute Granulocytes (1.4-6.9) Basophils # (0-0.4) Sodium (137-145) mmol/L Potassium (3.5-5.1) mmol/L Chloride (98-107) mmol/L Carbon Dioxide (22-30) mmol/L Anion Gap (5-15) MEQ/L BUN (7-17) mg/dL Creatinine (0.52-1.04) mg/dL Estimated GFR ML/MIN Glucose (74-106) mg/dL Lactic Acid 2.3 H (0.4-2.0) Calcium (8.4-10.2) mg/dL Total Bilirubin (0.2-1.3) mg/dL AST (14-36) U/L ALT (0-35) U/L Alkaline Phosphatase (38-126) U/L Troponin I < 0.012 (0.000-0.034) ng/mL Serum Total Protein (6.3-8.2) g/dL Albumin (3.5-5.0) g/dL Lipase (23-300) U/L Urine Color (YELLOW) Urine Appearance (CLEAR) Urine pH (5-6) Ur Specific Brain[place] (1.005-1.025) Urine Protein (Negative) Urine Ketones (NEGATIVE) Urine Blood (0-5) Jeff/ul Urine Nitrite (NEGATIVE) Urine Bilirubin (NEGATIVE) Urine Urobilinogen (0-1) mg/dL Ur Leukocyte Esterase (NEGATIVE) Urine WBC (Auto) (0-5) /HPF Urine RBC (Auto) (0-2) /HPF U Epithel Cells (Auto) (FEW) /HPF Urine Bacteria (Auto) (NEGATIVE) /HPF Urine Mucus (Auto) (NEGATIVE) /HPF Urine Culture Reflexed (NO) Urine Glucose (NEGATIVE) mg/dL SARS-CoV-2 (PCR) NEGATIVE (NEGATIVE) 06/10/21 06/10/21 06/10/21 Range/Units 23:29 23:21 23:21 WBC (4.0-10.5) K/mm3 RBC (4.1-5.4) M/mm3 Hgb (12.0-16.0) gm/dl Hct (35-47) % MCV (78-100) fl MCH (26-32) pg MCHC (32-36) g/dl RDW (11.5-14.0) % Plt Count (150-450) K/mm3 MPV (7.5-11.0) fl Gran % (36.0-66.0) % Eos # (Auto) (0-0.5) Absolute Lymphs (auto) (1.0-4.6) Absolute Monos (auto) (0.0-1.3) Lymphocytes % (24.0-44.0) % Monocytes % (0.0-12.0) % Eosinophils % (0.00-5.0) % Basophils % (0.0-0.4) % Absolute Granulocytes (1.4-6.9) Basophils # (0-0.4) Sodium 132 L (137-145) mmol/L Potassium 4.6 (3.5-5.1) mmol/L Chloride 100 (98-107) mmol/L Carbon Dioxide 18 L (22-30) mmol/L Anion Gap 18.7 H (5-15) MEQ/L BUN 14 (7-17) mg/dL Creatinine 0.67 (0.52-1.04) mg/dL Estimated GFR > 60.0 ML/MIN Glucose 475 H (74-106) mg/dL Lactic Acid 3.4 H (0.4-2.0) Calcium 9.5 (8.4-10.2) mg/dL Total Bilirubin 0.70 (0.2-1.3) mg/dL AST 40 H (14-36) U/L ALT 36 H (0-35) U/L Alkaline Phosphatase 214 H (38-126) U/L Troponin I (0.000-0.034) ng/mL Serum Total Protein 7.5 (6.3-8.2) g/dL Albumin 4.0 (3.5-5.0) g/dL Lipase 62 (23-300) U/L Urine Color YELLOW (YELLOW) Urine Appearance SLIGHTLY CLOUDY (CLEAR) Urine pH 5.0 (5-6) Ur Specific Brain[place] 1.030 (1.005-1.025) Urine Protein 30 (Negative) Urine Ketones NEGATIVE (NEGATIVE) Urine Blood NEGATIVE (0-5) Jeff/ul Urine Nitrite NEGATIVE (NEGATIVE) Urine Bilirubin NEGATIVE (NEGATIVE) Urine Urobilinogen NEGATIVE (0-1) mg/dL Ur Leukocyte Esterase NEGATIVE (NEGATIVE) Urine WBC (Auto) 0-2 (0-5) /HPF Urine RBC (Auto) NONE (0-2) /HPF U Epithel Cells (Auto) RARE (FEW) /HPF Urine Bacteria (Auto) NONE (NEGATIVE) /HPF Urine Mucus (Auto) SLIGHT (NEGATIVE) /HPF Urine Culture Reflexed NO (NO) Urine Glucose >=500 (NEGATIVE) mg/dL SARS-CoV-2 (PCR) (NEGATIVE) 06/10/21 06/10/21 Range/Units 23:21 23:15 WBC 6.3 (4.0-10.5) K/mm3 RBC 4.66 (4.1-5.4) M/mm3 Hgb 12.0 (12.0-16.0) gm/dl Hct 38.8 (35-47) % MCV 83.3 (78-100) fl MCH 25.8 L (26-32) pg MCHC 30.9 L (32-36) g/dl RDW 17.3 H (11.5-14.0) % Plt Count 215 (150-450) K/mm3 MPV 12.7 H (7.5-11.0) fl Gran % 75.6 H (36.0-66.0) % Eos # (Auto) 0.12 (0-0.5) Absolute Lymphs (auto) 0.94 L (1.0-4.6) Absolute Monos (auto) 0.44 (0.0-1.3) Lymphocytes % 15.0 L (24.0-44.0) % Monocytes % 7.0 (0.0-12.0) % Eosinophils % 1.9 (0.00-5.0) % Basophils % 0.5 (0.0-0.4) % Absolute Granulocytes 4.75 (1.4-6.9) Basophils # 0.03 (0-0.4) Sodium (137-145) mmol/L Potassium (3.5-5.1) mmol/L Chloride (98-107) mmol/L Carbon Dioxide (22-30) mmol/L Anion Gap (5-15) MEQ/L BUN (7-17) mg/dL Creatinine (0.52-1.04) mg/dL Estimated GFR ML/MIN Glucose (74-106) mg/dL Lactic Acid (0.4-2.0) Calcium (8.4-10.2) mg/dL Total Bilirubin (0.2-1.3) mg/dL AST (14-36) U/L ALT (0-35) U/L Alkaline Phosphatase (38-126) U/L Troponin I < 0.012 (0.000-0.034) ng/mL Serum Total Protein (6.3-8.2) g/dL Albumin (3.5-5.0) g/dL Lipase (23-300) U/L Urine Color (YELLOW) Urine Appearance (CLEAR) Urine pH (5-6) Ur Specific [place] (1.005-1.025) Urine Protein (Negative) Urine Ketones (NEGATIVE) Urine Blood (0-5) Jeff/ul Urine Nitrite (NEGATIVE) Urine Bilirubin (NEGATIVE) Urine Urobilinogen (0-1) mg/dL Ur Leukocyte Esterase (NEGATIVE) Urine WBC (Auto) (0-5) /HPF Urine RBC (Auto) (0-2) /HPF U Epithel Cells (Auto) (FEW) /HPF Urine Bacteria (Auto) (NEGATIVE) /HPF Urine Mucus (Auto) (NEGATIVE) /HPF Urine Culture Reflexed (NO) Urine Glucose (NEGATIVE) mg/dL SARS-CoV-2 (PCR) (NEGATIVE) - Progress Progress: improved Air Movement: fair Progress Note: 06/11/21 00:44 61 years old is evaluated for multiple complaints. Patient oxygen saturation is dropping to 92% and resting. Chest x-ray showed questionable infiltrates bilaterally. She is given a dose of Levaquin. Has normal white count, lactate of 3.4. Has elevated glucose of 475 with a gap of 18 and bicarb of 18 as well but negative ketones in urine. I believe patient is not in DKA. I have given her insulin. Patient will be admitted for observation. Discussed with Dr. Obando and patient is accepted for admission. Discussed with Dr.: Rachid Will see patient in: hospital (observation) Counseled pt/family regarding: lab results, diagnosis, rad results - Departure Departure Disposition: Observation Clinical Impression: Hyperglycemia, Bronchitis, Sepsis Condition: Good Critical Care Time: No
[2021-06-10 23:55] LABS: Absolute Neutrophil Ct (ANC) 4.75 (1.4-6.9); BASOPHIL % 0.5 % (0.0-0.4); Basophil (Absolute #) 0.03 (0-0.4); Eosinophil % 1.9 % (0.00-5.0); Eosinophil (Absolute #) 0.12 (0-0.5); Hematocrit 38.8 % (35-47); Lymphocyte (Absolute #) 0.94 (1.0-4.6); Mean Cell Volume 83.3 fl (78-100); Mean Corpuscular Hemoglobin 25.8 pg (26-32); Mean Corpuscular Hgb Concent. 30.9 g/dl (32-36); Mean Platelet Volume 12.7 fl (7.5-11.0); Monocyte (Absolute #) 0.44 (0.0-1.3); Neutrophil % 75.6 % (36.0-66.0); Platelet Count 215 K/mm3 (150-450); Red Blood Count 4.66 M/mm3 (4.1-5.4); Red Cell Distribution Width 17.3 % (11.5-14.0); White Blood Count 6.3 K/mm3 (4.0-10.5)
[2021-06-10 23:58] LABS: Appearance SLIGHTLY CLOUDY (CLEAR); Bilirubin NEGATIVE (NEGATIVE); Blood NEGATIVE Ery/ul (0-5); Epithelial Cells RARE /HPF (FEW); Glucose >=500 mg/dL (NEGATIVE); Ketones NEGATIVE (NEGATIVE); Leukocyte Esterase NEGATIVE (NEGATIVE); Mucus SLIGHT /HPF (NEGATIVE); Nitrite NEGATIVE (NEGATIVE); Protein,Urine Dip 30 (Negative); Urobilinogen NEGATIVE mg/dL (0-1); WBC 0-2 /HPF (0-5)
[2021-06-10] MEDS ORDERED: PERCOCET TABLET 5/325MG PO ONE (23:59)
[2021-06-11 00:03] LABS: ALKALINE PHOSPHATASE 214 U/L (38-126); ANION GAP 18.7 MEQ/L (5-15); BLOOD UREA NITROGEN 14 mg/dL (7-17); CHLORIDE 100 mmol/L (98-107); Calcium 9.5 mg/dL (8.4-10.2); Carbon Dioxide 18 mmol/L (22-30); Creatinine 1 0.67 mg/dL (0.52-1.04); EST GLOMERULAR FILTRATION RATE > 60.0 ML/MIN; Glucose 475 mg/dL (74-106); LIPASE 62 U/L (23-300); Potassium 4.6 mmol/L (3.5-5.1); SGOT/AST 40 U/L (14-36); SGPT/ALT 36 U/L (0-35); SODIUM 132 mmol/L (137-145); Total Protein 7.5 g/dL (6.3-8.2)
[2021-06-11] MEDS ORDERED: PERCOCET TABLET 5/325MG ONE (00:11)
[2021-06-11] MEDS ORDERED: Sodium Chloride 0.9% 1000 ML 1,000 ML IV STA (00:17)
[2021-06-11] MEDS ORDERED: HUMULIN R IV ONE (00:28)
[2021-06-11] MEDS ORDERED: LEVOFLOXACIN 750MG/150ML D5W 750 MG/150 ML BAG IV STA (00:44)
[2021-06-11] MEDS ORDERED: HUMULIN R ONE (01:00)
[2021-06-11] MEDS ORDERED: LEVOFLOXACIN 750MG/150ML D5W 750 MG/150 ML BAG IV ONE (01:01)
[2021-06-11] MEDS ORDERED: Sodium Chloride 0.9% 1000 ML 1,000 ML ONE (01:01)
[2021-06-11] MEDS ORDERED: DUONEB 0.5-3 MG/3 ml Neb IH PRN (04:19)
[2021-06-11] MEDS: Zofran 4 MG/2 ML VIAL IV PRN ×2 (05:42→18:33)
[2021-06-11] MEDS ORDERED: TORAdol 30 mg Injection IV ONE (07:44)
[2021-06-11] MEDS: HUMALOG SQ PRN ×2 (08:39→13:01)
[2021-06-11] MEDS ORDERED: Imitrex 6 MG/0.5 ML SQ PRN (08:44)
--- NOTE | 2021-06-11 08:50 | PCM.HP ---
History of Present Illness - Chief Complaint Chief Complaint: NAUSEA,PAIN History of Present Illness: is a 61 year old female pt of Dr. Holguin'gavino with DM, COPD, Crohn's dz, Ulcerative colitis, HTN, OA of the knee, anxiety, migraine, and morbid obesity who was admitted through ER with sepsis, bronchitis, and hyperglycemia. She has been sick for the past 1 mo; saw ER 3 weeks ago and was dx with bronchitis. Was given steroids and antibiotics at one point; Dr. Holguin saw the pt and had changed her antibiotic, then discontinued them altogether. She has been on a probiotic. She has been having sx of nausea, increased SOB and cough, PUENTES, myalgias, weakness/fatigue, loose stools, [place], and chills. In ER last night her O2 dropped to 92% on RA at rest. Her CXR had question of infiltrates bilaterally, so she was put on levaquin 750mg daily. Her heart rate was elevated. Her WBC were nl. Her BS was 475 and she was given insulin; however her CO2 was nl so she was not in DKA. This morning she is c/o PUENTES; was just given toradol 30mg IV x 1. Used to take imitrex with good results. C/o nausea today, which is better with zofran. - Review of Systems Constitutional: Chills, Fatigue, Weakness, Weight Loss (past 3 wks) Respiratory: Cough, Short Of Breath Cardiac: Edema (intermittent, LE bilat) Abdominal/Gastrointestinal: Nausea, Vomiting, Diarrhea, Hematochezia (chronic), Appetite Changes Musculoskeletal: Myalgias Neurological: Headache Psychological: Anxiety, No Suicidal Ideations, No Homicidal Ideations Hematologic/Lymphatic: Anemia (had transfusion 3 mo ago due to rectal bleeding) All Other Systems: Reviewed and Negative Medications & Allergies Home Medications: Home Medication List Duloxetine HCl 60 mg PO DAILY 03/17/16 [History Confirmed 06/11/21] Mesalamine [Pentasa] 500 mg PO BID 03/17/16 [History Confirmed 06/11/21] Metformin HCl 1000 mg [Glucophage 1000 MG] 1,000 mg PO BID 03/17/16 [History Confirmed 06/11/21] Methocarbamol 500 mg [Robaxin 500 MG] 1,000 mg PO QIDPRN PRN 03/17/16 [History Confirmed 06/11/21] Omeprazole 20 MG [Prilosec 20 mg] 20 mg PO BID 03/17/16 [History Confirmed 06/11/21] Atorvastatin Calcium 10 mg PO DAILY 01/25/18 [History Confirmed 06/11/21] Insulin Glargine,Hum.rec.anlog [Basaglar Kwikpen U-100] 38 unit SQ HS 12/05/19 [History Confirmed 06/11/21] Meclizine HCl 25 mg [Antivert 25 mg] 25 mg PO DAILY PRN 12/05/19 [History Confirmed 06/11/21] Insulin Aspart [Novolog] 44 unit SQ AC 08/02/20 [History Confirmed 06/11/21] Isosorbide Mononitrate 60 mg [Imdur 60MG] 120 mg PO DAILY 12/31/20 [History Confirmed 06/11/21] Levothyroxine Sodium 25 Mcg [Synthroid 25 Mcg] 25 mcg PO DAILY 12/31/20 [History Confirmed 06/11/21] Metoprolol Succinate 100 mg [Toprol Xl 100 MG] 100 mg PO DAILY 12/31/20 [History Confirmed 06/11/21] Albuterol Sulfate [Albuterol Sulfate Hfa] 2 puffs IH Q4HPRN PRN 01/18/21 [History Confirmed 06/11/21] PARoxetine HCl [Paxil] 10 mg PO DAILY 01/18/21 [History Confirmed 06/11/21] Diclofenac Sodium Gel [Voltaren GEL] 100 gm TP TID #1 gel..gm. 02/21/21 [Rx Confirmed 06/11/21] L.acidoph,Paracasei, B.lactis [Probiotic] 1 cap PO DAILY 06/11/21 [History Confirmed 06/11/21] Allergies/Adverse Reactions: Allergies Allergy/AdvReac Type Severity Reaction Status Date / Time cyclobenzaprine HCl Allergy Mild Rash Verified 06/10/21 22:45 [From Flexeril] metoclopramide [From Reglan] Allergy Mild Rash Verified 06/10/21 22:45 Sulfa (Sulfonamide Allergy Mild Rash Verified 06/10/21 22:45 Antibiotics) [Sulfa(Sulfonamide Antibiotics)] adhesive Allergy Rash Verified 06/10/21 22:45 nalbuphine HCl [From Nubain] AdvReac Intermediate Stomach Verified 06/10/21 22:45 Cramps ciprofloxacin [From Cipro] AdvReac Mild Verified 06/10/21 22:45 meperidine HCl [From Demerol] AdvReac Mild Vomiting Verified 06/10/21 22:45 morphine AdvReac ADDICTION Verified 06/10/21 22:45 - Past Medical History Past Medical History: Yes Neurological History: Migraines ENT History: Cataracts Cardiac History: Coronary Artery Disease, High Cholesterol, Hypertension, Myocardial Infarction ([place]) Respiratory History: Asthma, Bronchitis, COPD, Sleep Apnea Endocrine Medical History: Diabetes Type II Musculoskelatal History: Arthritis, Degenerative Disk Disease, Fibromyalgia, Osteoarthritis GI Medical History: Crohns Disease, Diverticulitis, GERD History: No Pertinent History Pyscho-Social History: Anxiety, Depression Reproductive Disorders: No Pertinent History Comment: HX UTI, HX Yeast Infection, Neuropathy - Female History Hx Last Menstrual Period: POST Are you now?: No - Past Surgical History Past Surgical History: Yes Neuro Surgical History: No Pertinent History Cardiac History: Cardiac Catheterization Respiratory Surgery: No Pertinent History GI Surgical History: No Pertinent History Genitourinary Surgical Hx: No Pertinent History Musculskeletal Surgical Hx: No Pertinent History Female Surgical History: Dilation & Curettage, Section, Tubal Ligation Other Surgical History: KIDNEY STONE REMOVAL. heart cath x3, no stents - Social History Smoking Status: Former smoker How long have you smoked: years Exposure to second hand smoke: No Alcohol: None Drug Use: none Significant Family History: no pertinent family hx, diabetes, hypertension - Physical Exam Vital Signs: Vital Signs - 24 hr Temp Pulse Resp BP Pulse Ox 06/11/21 05:12 111 H 20 97 06/11/21 04:37 98.6 F 83 20 114/64 95 06/11/21 04:00 85 20 120/80 97 06/11/21 03:17 90 114/87 95 06/11/21 02:45 91 H 124/61 94 L 06/11/21 01:00 99 H 20 118/81 95 06/11/21 00:47 100 H 113/73 94 L 06/11/21 00:46 95 06/10/21 23:00 115 H 24 116/83 95 06/10/21 22:42 97.9 F 113 H 24 178/86 97 General Appearance: no apparent distress, alert Neurologic Exam: oriented x 3, cooperative Eye Exam: eyes nml inspection Ears, Nose, Throat Exam: moist mucous membranes Neck Exam: normal inspection, non-tender, No lymphadenopathy Respiratory Exam: normal breath sounds, lungs clear, No crackles/rales, No rhonchi, No wheezing Cardiovascular Exam: regular rate/rhythm, normal heart sounds, No murmur Gastrointestinal/Abdomen Exam: soft, normal bowel sounds, tenderness (RUQ), No mass, No guarding, No rebound Back Exam: normal inspection, No CVA tenderness, No rash Extremity Exam: normal inspection, other (no pitting pretibial edema LE bilat) Skin Exam: normal color, warm, dry, No rash Results - Labs Lab/Micro Results: Lab Results-Last 24 Hours 06/10/21 06/10/21 06/10/21 Range/Units 23:15 23:21 23:21 WBC 6.3 (4.0-10.5) K/mm3 RBC 4.66 (4.1-5.4) M/mm3 Hgb 12.0 (12.0-16.0) gm/dl Hct 38.8 (35-47) % MCV 83.3 (78-100) fl MCH 25.8 L (26-32) pg MCHC 30.9 L (32-36) g/dl RDW 17.3 H (11.5-14.0) % Plt Count 215 (150-450) K/mm3 MPV 12.7 H (7.5-11.0) fl Gran % 75.6 H (36.0-66.0) % Eos # (Auto) 0.12 (0-0.5) Absolute Lymphs (auto) 0.94 L (1.0-4.6) Absolute Monos (auto) 0.44 (0.0-1.3) Lymphocytes % 15.0 L (24.0-44.0) % Monocytes % 7.0 (0.0-12.0) % Eosinophils % 1.9 (0.00-5.0) % Basophils % 0.5 (0.0-0.4) % Absolute Granulocytes 4.75 (1.4-6.9) Basophils # 0.03 (0-0.4) Sodium 132 L (137-145) mmol/L Potassium 4.6 (3.5-5.1) mmol/L Chloride 100 (98-107) mmol/L Carbon Dioxide 18 L (22-30) mmol/L Anion Gap 18.7 H (5-15) MEQ/L BUN 14 (7-17) mg/dL Creatinine 0.67 (0.52-1.04) mg/dL Estimated GFR > 60.0 ML/MIN Glucose 475 H (74-106) mg/dL POC Glucometer (74 to 106) mg/dL Lactic Acid (0.4-2.0) Calcium 9.5 (8.4-10.2) mg/dL Total Bilirubin 0.70 (0.2-1.3) mg/dL AST 40 H (14-36) U/L ALT 36 H (0-35) U/L Alkaline Phosphatase 214 H (38-126) U/L Troponin I < 0.012 (0.000-0.034) ng/mL Serum Total Protein 7.5 (6.3-8.2) g/dL Albumin 4.0 (3.5-5.0) g/dL Lipase 62 (23-300) U/L Urine Color (YELLOW) Urine Appearance (CLEAR) Urine pH (5-6) Ur Specific [place] (1.005-1.025) Urine Protein (Negative) Urine Ketones (NEGATIVE) Urine Blood (0-5) Jeff/ul Urine Nitrite (NEGATIVE) Urine Bilirubin (NEGATIVE) Urine Urobilinogen (0-1) mg/dL Ur Leukocyte Esterase (NEGATIVE) Urine WBC (Auto) (0-5) /HPF Urine RBC (Auto) (0-2) /HPF U Epithel Cells (Auto) (FEW) /HPF Urine Bacteria (Auto) (NEGATIVE) /HPF Urine Mucus (Auto) (NEGATIVE) /HPF Urine Culture Reflexed (NO) Urine Glucose (NEGATIVE) mg/dL SARS-CoV-2 (PCR) (NEGATIVE) 06/10/21 06/10/21 06/11/21 Range/Units 23:21 23:29 01:49 WBC (4.0-10.5) K/mm3 RBC (4.1-5.4) M/mm3 Hgb (12.0-16.0) gm/dl Hct (35-47) % MCV (78-100) fl MCH (26-32) pg MCHC (32-36) g/dl RDW (11.5-14.0) % Plt Count (150-450) K/mm3 MPV (7.5-11.0) fl Gran % (36.0-66.0) % Eos # (Auto) (0-0.5) Absolute Lymphs (auto) (1.0-4.6) Absolute Monos (auto) (0.0-1.3) Lymphocytes % (24.0-44.0) % Monocytes % (0.0-12.0) % Eosinophils % (0.00-5.0) % Basophils % (0.0-0.4) % Absolute Granulocytes (1.4-6.9) Basophils # (0-0.4) Sodium (137-145) mmol/L Potassium (3.5-5.1) mmol/L Chloride (98-107) mmol/L Carbon Dioxide (22-30) mmol/L Anion Gap (5-15) MEQ/L BUN (7-17) mg/dL Creatinine (0.52-1.04) mg/dL Estimated GFR ML/MIN Glucose (74-106) mg/dL POC Glucometer (74 to 106) mg/dL Lactic Acid 3.4 H 2.3 H (0.4-2.0) Calcium (8.4-10.2) mg/dL Total Bilirubin (0.2-1.3) mg/dL AST (14-36) U/L ALT (0-35) U/L Alkaline Phosphatase (38-126) U/L Troponin I (0.000-0.034) ng/mL Serum Total Protein (6.3-8.2) g/dL Albumin (3.5-5.0) g/dL Lipase (23-300) U/L Urine Color YELLOW (YELLOW) Urine Appearance SLIGHTLY CLOUDY (CLEAR) Urine pH 5.0 (5-6) Ur Specific [place] 1.030 (1.005-1.025) Urine Protein 30 (Negative) Urine Ketones NEGATIVE (NEGATIVE) Urine Blood NEGATIVE (0-5) Jeff/ul Urine Nitrite NEGATIVE (NEGATIVE) Urine Bilirubin NEGATIVE (NEGATIVE) Urine Urobilinogen NEGATIVE (0-1) mg/dL Ur Leukocyte Esterase NEGATIVE (NEGATIVE) Urine WBC (Auto) 0-2 (0-5) /HPF Urine RBC (Auto) NONE (0-2) /HPF U Epithel Cells (Auto) RARE (FEW) /HPF Urine Bacteria (Auto) NONE (NEGATIVE) /HPF Urine Mucus (Auto) SLIGHT (NEGATIVE) /HPF Urine Culture Reflexed NO (NO) Urine Glucose >=500 (NEGATIVE) mg/dL SARS-CoV-2 (PCR) (NEGATIVE) 06/11/21 06/11/21 06/11/21 Range/Units 02:00 02:02 04:16 WBC (4.0-10.5) K/mm3 RBC (4.1-5.4) M/mm3 Hgb (12.0-16.0) gm/dl Hct (35-47) % MCV (78-100) fl MCH (26-32) pg MCHC (32-36) g/dl RDW (11.5-14.0) % Plt Count (150-450) K/mm3 MPV (7.5-11.0) fl Gran % (36.0-66.0) % Eos # (Auto) (0-0.5) Absolute Lymphs (auto) (1.0-4.6) Absolute Monos (auto) (0.0-1.3) Lymphocytes % (24.0-44.0) % Monocytes % (0.0-12.0) % Eosinophils % (0.00-5.0) % Basophils % (0.0-0.4) % Absolute Granulocytes (1.4-6.9) Basophils # (0-0.4) Sodium (137-145) mmol/L Potassium (3.5-5.1) mmol/L Chloride (98-107) mmol/L Carbon Dioxide (22-30) mmol/L Anion Gap (5-15) MEQ/L BUN (7-17) mg/dL Creatinine (0.52-1.04) mg/dL Estimated GFR ML/MIN Glucose (74-106) mg/dL POC Glucometer 285 H (74 to 106) mg/dL Lactic Acid (0.4-2.0) Calcium (8.4-10.2) mg/dL Total Bilirubin (0.2-1.3) mg/dL AST (14-36) U/L ALT (0-35) U/L Alkaline Phosphatase (38-126) U/L Troponin I < 0.012 (0.000-0.034) ng/mL Serum Total Protein (6.3-8.2) g/dL Albumin (3.5-5.0) g/dL Lipase (23-300) U/L Urine Color (YELLOW) Urine Appearance (CLEAR) Urine pH (5-6) Ur Specific [place] (1.005-1.025) Urine Protein (Negative) Urine Ketones (NEGATIVE) Urine Blood (0-5) Jeff/ul Urine Nitrite (NEGATIVE) Urine Bilirubin (NEGATIVE) Urine Urobilinogen (0-1) mg/dL Ur Leukocyte Esterase (NEGATIVE) Urine WBC (Auto) (0-5) /HPF Urine RBC (Auto) (0-2) /HPF U Epithel Cells (Auto) (FEW) /HPF Urine Bacteria (Auto) (NEGATIVE) /HPF Urine Mucus (Auto) (NEGATIVE) /HPF Urine Culture Reflexed (NO) Urine Glucose (NEGATIVE) mg/dL SARS-CoV-2 (PCR) NEGATIVE (NEGATIVE) 06/11/21 06/11/21 Range/Units 05:15 07:38 WBC (4.0-10.5) K/mm3 RBC (4.1-5.4) M/mm3 Hgb (12.0-16.0) gm/dl Hct (35-47) % MCV (78-100) fl MCH (26-32) pg MCHC (32-36) g/dl RDW (11.5-14.0) % Plt Count (150-450) K/mm3 MPV (7.5-11.0) fl Gran % (36.0-66.0) % Eos # (Auto) (0-0.5) Absolute Lymphs (auto) (1.0-4.6) Absolute Monos (auto) (0.0-1.3) Lymphocytes % (24.0-44.0) % Monocytes % (0.0-12.0) % Eosinophils % (0.00-5.0) % Basophils % (0.0-0.4) % Absolute Granulocytes (1.4-6.9) Basophils # (0-0.4) Sodium (137-145) mmol/L Potassium (3.5-5.1) mmol/L Chloride (98-107) mmol/L Carbon Dioxide (22-30) mmol/L Anion Gap (5-15) MEQ/L BUN (7-17) mg/dL Creatinine (0.52-1.04) mg/dL Estimated GFR ML/MIN Glucose (74-106) mg/dL POC Glucometer 246 H (74 to 106) mg/dL Lactic Acid (0.4-2.0) Calcium (8.4-10.2) mg/dL Total Bilirubin (0.2-1.3) mg/dL AST (14-36) U/L ALT (0-35) U/L Alkaline Phosphatase (38-126) U/L Troponin I < 0.012 (0.000-0.034) ng/mL Serum Total Protein (6.3-8.2) g/dL Albumin (3.5-5.0) g/dL Lipase (23-300) U/L Urine Color (YELLOW) Urine Appearance (CLEAR) Urine pH (5-6) Ur Specific [place] (1.005-1.025) Urine Protein (Negative) Urine Ketones (NEGATIVE) Urine Blood (0-5) Jeff/ul Urine Nitrite (NEGATIVE) Urine Bilirubin (NEGATIVE) Urine Urobilinogen (0-1) mg/dL Ur Leukocyte Esterase (NEGATIVE) Urine WBC (Auto) (0-5) /HPF Urine RBC (Auto) (0-2) /HPF U Epithel Cells (Auto) (FEW) /HPF Urine Bacteria (Auto) (NEGATIVE) /HPF Urine Mucus (Auto) (NEGATIVE) /HPF Urine Culture Reflexed (NO) Urine Glucose (NEGATIVE) mg/dL SARS-CoV-2 (PCR) (NEGATIVE) - Radiology Impressions Radiology Exams & Impressions: Radiology Procedures Category Date Time Status CHEST 1 VIEW (PORTABLE) Stat Exams 06/10/21 22:52 Taken - Other Procedures and Tests Respiratory Therapy 06/11/21 04:19 Oxygen Nasal Cannula 2 lpm 06/11/21 05:06 Respiratory Therapy Assessment DAILY Assessment/Plan (1) Sepsis Current Visit: Yes Status: Acute Qualifiers: Sepsis type: sepsis due to unspecified organism Sepsis acute organ dysfunction status: unspecified Qualified Code(s): A41.9 - Sepsis, unspecified organism Assessment & Plan: Blood cultures are pending. (2) Pneumonia Current Visit: Yes Status: Acute Qualifiers: Pneumonia type: due to unspecified organism Laterality: bilateral Lung location: lower lobe of lung Qualified Code(s): J18.9 - Pneumonia, unspecified organism Assessment & Plan: Await final CXR read. On Levaquin 750mg IV daily, day #2. Code(s): J18.9 - PNEUMONIA, UNSPECIFIED ORGANISM (3) Headache Current Visit: Yes Status: Acute Qualifiers: Headache type: unspecified Headache chronicity pattern: chronic headache Intractability: not intractable Qualified Code(s): R51.9 - Headache, unspecified; G89.29 - Other chronic pain Assessment & Plan: Toradol given; imitrex prn. Also has percocet if needed. Code(s): R51.9 - HEADACHE, UNSPECIFIED (4) Hyperglycemia Current Visit: Yes Status: Chronic Code(s): R73.9 - HYPERGLYCEMIA, UNSPEC IFIED (5) Type 2 diabetes mellitus Current Visit: No Status: Acute Qualifiers: Diabetes mellitus keno terminal operator insulin use: with keno terminal operator use Diabetes mellitus complication status: with hyperglycemia Qualified Code(s): E11.65 - Type 2 diabetes mellitus with hyperglycemia; Z79.4 - senior living (current) use of insulin Assessment & Plan: Sees Dr. Chen monthly. Will check a1c. (6) Coronary artery disease Current Visit: No Status: Chronic Qualifiers: Coronary Disease-Associated Artery/Lesion type: unspecified vessel or lesion type [place] vs. transplanted heart: [place] heart Associated angina: without angina Qualified Code(s): I25.10 - Atherosclerotic heart disease of [place] coronary artery without angina pectoris Code(s): I25.10 - ATHSCL HEART DISEASE OF [place] CORONARY ARTERY W/O ANG PCTRS (7) Morbid obesity Current Visit: No Status: Chronic Code(s): E66.01 - MORBID (SEVERE) OBESITY DUE TO EXCESS CALORIES (8) DVT prophylaxis Current Visit: Yes Status: Acute Assessment & Plan: Would like to avoid lovenox in this pt with Crohn's/UC and chronic intestinal bleeding who had a transfusion in the last 3 months. SCDs when lying in bed, but discussed with pt being up and moving around the room, which is preferable. Code(s): Z29.9 - ENCOUNTER FOR PROPHYLACTIC MEASURES, UNSPECIFIED
--- NOTE | 2021-06-11 09:03 | XRAY ---
Indication: Fever and cough. Suspect Covid 19. Comparison: May 20, 2021. Portable chest unchanged again slightly underinflated and clear. Heart not enlarged again with tortuous descending aorta. No new/acute findings.
[2021-06-11] MEDS ORDERED: Robaxin 500 MG PO PRN (09:49)
[2021-06-11] MEDS ORDERED: ANTIVERT 25 MG PO PRN (09:49)
[2021-06-11] MEDS ORDERED: MESALAMINE 500 MG PO SCH (10:00)
[2021-06-11] MEDS ORDERED: MEDICATION INTERVENTION MC SCH (10:00)
[2021-06-11] MEDS ORDERED: NON-FORMULARY ITEM (L.Acidoph,Paracasei, B.Lactis [Probiotic] 1 CAP) PO SCH (10:00)
[2021-06-11] MEDS ORDERED: PROTONIX 40 MG IV IV SCH (10:00)
[2021-06-11] MEDS ORDERED: NON-FORMULARY ITEM (Omeprazole 20 Mg [Prilosec 20 Mg] 20 MG) PO SCH (10:00)
[2021-06-11] MEDS ORDERED: VENTOLIN COMMON CANISTER IH PRN (10:15)
[2021-06-11] MEDS: SYNTHROID 25 MCG PO SCH (10:48)
[2021-06-11] MEDS: Acidophilus TABLET PO SCH (10:49)
[2021-06-11] MEDS: Protonix 40MG Tablet PO SCH (10:50)
[2021-06-11] MEDS: Zocor 10MG PO SCH (10:50)
[2021-06-11] MEDS: Imdur 60MG PO SCH (10:51)
[2021-06-11] MEDS: Cymbalta 30 MG Capsule PO SCH (10:51)
[2021-06-11] MEDS: Toprol Xl 100 MG PO SCH (10:52)
[2021-06-11] MEDS: Voltaren GEL TP SCH ×3 (10:54→21:32)
[2021-06-11] MEDS ORDERED: INSULIN ASPART SQ SCH (11:30)
[2021-06-11] MEDS: HUMALOG SQ SCH ×2 (13:01→18:46)
[2021-06-11] MEDS: PERCOCET TABLET 5/325MG PO PRN (16:17)
[2021-06-11] MEDS ORDERED: Lantus Insulin SQ SCH (22:00)
[2021-06-11] MEDS ORDERED: LEVOFLOXACIN 750MG/150ML D5W 750 MG/150 ML BAG IV SCH (22:00)
[2021-06-12] MEDS: PERCOCET TABLET 5/325MG PO PRN ×2 (01:35→07:13)
[2021-06-12 05:30] LABS: Absolute Neutrophil Ct (ANC) 4.29 (1.4-6.9); BASOPHIL % 0.3 % (0.0-0.4); Basophil (Absolute #) 0.02 (0-0.4); Eosinophil % 3.6 % (0.00-5.0); Eosinophil (Absolute #) 0.22 (0-0.5); Hematocrit 37.7 % (35-47); Hemoglobin 11.2 gm/dl (12.0-16.0); Lymphocyte (Absolute #) 1.03 (1.0-4.6); Lymphocytes % 17.1 % (24.0-44.0); Mean Cell Volume 87.1 fl (78-100); Mean Corpuscular Hemoglobin 25.9 pg (26-32); Mean Corpuscular Hgb Concent. 29.7 g/dl (32-36); Mean Platelet Volume 13.4 fl (7.5-11.0); Monocyte (Absolute #) 0.48 (0.0-1.3); Monocytes % 7.9 % (0.0-12.0); Neutrophil % 71.1 % (36.0-66.0); Platelet Count 162 K/mm3 (150-450); Red Blood Count 4.33 M/mm3 (4.1-5.4); Red Cell Distribution Width 17.7 % (11.5-14.0)
[2021-06-12 05:47] LABS: ALBUMIN 3.5 g/dL (3.5-5.0); ALKALINE PHOSPHATASE 163 U/L (38-126); ANION GAP 14.1 MEQ/L (5-15); BLOOD UREA NITROGEN 14 mg/dL (7-17); CHLORIDE 102 mmol/L (98-107); Calcium 9.3 mg/dL (8.4-10.2); Carbon Dioxide 21 mmol/L (22-30); Creatinine 1 0.63 mg/dL (0.52-1.04); EST GLOMERULAR FILTRATION RATE > 60.0 ML/MIN; Glucose 267 mg/dL (74-106); Potassium 4.2 mmol/L (3.5-5.1); SGOT/AST 25 U/L (14-36); SGPT/ALT 26 U/L (0-35); SODIUM 132 mmol/L (137-145); Total Protein 6.6 g/dL (6.3-8.2)
[2021-06-12] MEDS: HUMALOG SQ SCH (08:38)
--- NOTE | 2021-06-12 08:47 | PCM.DS ---
Discharge Summary Date of Admission: 06/11/21 04:11 Admitting Physician: LULI BARTON Primary Care Provider: CALVIN MARRERO Allergies Allergies cyclobenzaprine HCl [From Flexeril] Allergy (Mild, Verified 06/10/21 22:45) Rash metoclopramide [From Reglan] Allergy (Mild, Verified 06/10/21 22:45) Rash Sulfa (Sulfonamide Antibiotics) [Sulfa(Sulfonamide Antibiotics)] Allergy (Mild, Verified 06/10/21 22:45) Rash adhesive Allergy (Verified 06/10/21 22:45) Rash nalbuphine HCl [From Nubain] Adverse Reaction (Intermediate, Verified 06/10/21 22:45) Stomach Cramps patient states she had stomach "burning" and that her legs felt like "rubber bands" ciprofloxacin [From Cipro] Adverse Reaction (Mild, Verified 06/10/21 22:45) meperidine HCl [From Demerol] Adverse Reaction (Mild, Verified 06/10/21 22:45) Vomiting morphine Adverse Reaction (Verified 06/10/21 22:45) ADDICTION PT STATES SHE TOOK MORPHINE YEARS AGO AND IT WAS HARD TO GET OFF OF IT AND DOES NOT WANT IT Hospital Summary - Hospital Course Hospital Course: Pt is a 61 yo female pt of Dr. Marrero with PMHx of DM, COPD, Crohn's dz, Ulcerative colitis, HTN, OA of the knee, anxiety, migraine, and morbid obesity who was admitted through ER with sepsis, bronchitis, and hyperglycemia. She was started on IV levaquin; was initiallyl on 2L NC but has been off of O2 overnight. She has c/o PUENTES since admission; apparently only has had PUENTES for the past 1 mo (she has remote hx of PUENTES but hasn't had any for years). She is humberto po. Labs are non acute. WBC nl. HR nl. She will get an MRI of the brain today and if nonacute will be discharged to home today on levaquin po. Will f/u with Dr. Marrero next week. - Vitals & Intake/Output Vital Signs: Vital Signs Temperature 97.8 F 06/12/21 08:00 Pulse Rate 67 06/12/21 08:00 Respiratory Rate 18 06/12/21 08:00 Blood Pressure 95/55 06/12/21 08:00 O2 Sat by Pulse Oximetry 96 06/12/21 08:00 Intake & Output: Intake & Output 06/09/21 06/10/21 06/11/21 06/12/21 11:59 11:59 11:59 11:59 Intake Total 240 1580 Output Total 200 1850 Balance 40 -270 Weight 147.5 kg 149.7 kg - Lab Result Diagrams: 06/12/21 04:25 06/12/21 04:25 Lab Results-Last 24 Hrs: Lab Results-Last 24 Hours 06/11/21 06/11/21 06/11/21 Range/Units 08:36 09:26 11:23 WBC (4.0-10.5) K/mm3 RBC (4.1-5.4) M/mm3 Hgb (12.0-16.0) gm/dl Hct (35-47) % MCV (78-100) fl MCH (26-32) pg MCHC (32-36) g/dl RDW (11.5-14.0) % Plt Count (150-450) K/mm3 MPV (7.5-11.0) fl Gran % (36.0-66.0) % Eos # (Auto) (0-0.5) Absolute Lymphs (auto) (1.0-4.6) Absolute Monos (auto) (0.0-1.3) Lymphocytes % (24.0-44.0) % Monocytes % (0.0-12.0) % Eosinophils % (0.00-5.0) % Basophils % (0.0-0.4) % Absolute Granulocytes (1.4-6.9) Basophils # (0-0.4) Sodium (137-145) mmol/L Potassium (3.5-5.1) mmol/L Chloride (98-107) mmol/L Carbon Dioxide (22-30) mmol/L Anion Gap (5-15) MEQ/L BUN (7-17) mg/dL Creatinine (0.52-1.04) mg/dL Estimated GFR ML/MIN Glucose (74-106) mg/dL POC Glucometer (74 to 106) mg/dL Hemoglobin A1c 11.78 H (4.5-6.0) % Calcium (8.4-10.2) mg/dL Total Bilirubin (0.2-1.3) mg/dL AST (14-36) U/L ALT (0-35) U/L Alkaline Phosphatase (38-126) U/L Troponin I < 0.012 < 0.012 (0.000-0.034) ng/mL Serum Total Protein (6.3-8.2) g/dL Albumin (3.5-5.0) g/dL 06/11/21 06/11/21 06/11/21 Range/Units 11:49 16:52 21:02 WBC (4.0-10.5) K/mm3 RBC (4.1-5.4) M/mm3 Hgb (12.0-16.0) gm/dl Hct (35-47) % MCV (78-100) fl MCH (26-32) pg MCHC (32-36) g/dl RDW (11.5-14.0) % Plt Count (150-450) K/mm3 MPV (7.5-11.0) fl Gran % (36.0-66.0) % Eos # (Auto) (0-0.5) Absolute Lymphs (auto) (1.0-4.6) Absolute Monos (auto) (0.0-1.3) Lymphocytes % (24.0-44.0) % Monocytes % (0.0-12.0) % Eosinophils % (0.00-5.0) % Basophils % (0.0-0.4) % Absolute Granulocytes (1.4-6.9) Basophils # (0-0.4) Sodium (137-145) mmol/L Potassium (3.5-5.1) mmol/L Chloride (98-107) mmol/L Carbon Dioxide (22-30) mmol/L Anion Gap (5-15) MEQ/L BUN (7-17) mg/dL Creatinine (0.52-1.04) mg/dL Estimated GFR ML/MIN Glucose (74-106) mg/dL POC Glucometer 222 H 119 H 228 H (74 to 106) mg/dL Hemoglobin A1c (4.5-6.0) % Calcium (8.4-10.2) mg/dL Total Bilirubin (0.2-1.3) mg/dL AST (14-36) U/L ALT (0-35) U/L Alkaline Phosphatase (38-126) U/L Troponin I (0.000-0.034) ng/mL Serum Total Protein (6.3-8.2) g/dL Albumin (3.5-5.0) g/dL 06/12/21 06/12/21 06/12/21 Range/Units 04:25 04:25 07:38 WBC 6.0 (4.0-10.5) K/mm3 RBC 4.33 (4.1-5.4) M/mm3 Hgb 11.2 L (12.0-16.0) gm/dl Hct 37.7 (35-47) % MCV 87.1 (78-100) fl MCH 25.9 L (26-32) pg MCHC 29.7 L (32-36) g/dl RDW 17.7 H (11.5-14.0) % Plt Count 162 (150-450) K/mm3 MPV 13.4 H (7.5-11.0) fl Gran % 71.1 H (36.0-66.0) % Eos # (Auto) 0.22 (0-0.5) Absolute Lymphs (auto) 1.03 (1.0-4.6) Absolute Monos (auto) 0.48 (0.0-1.3) Lymphocytes % 17.1 L (24.0-44.0) % Monocytes % 7.9 (0.0-12.0) % Eosinophils % 3.6 (0.00-5.0) % Basophils % 0.3 (0.0-0.4) % Absolute Granulocytes 4.29 (1.4-6.9) Basophils # 0.02 (0-0.4) Sodium 132 L (137-145) mmol/L Potassium 4.2 (3.5-5.1) mmol/L Chloride 102 (98-107) mmol/L Carbon Dioxide 21 L (22-30) mmol/L Anion Gap 14.1 (5-15) MEQ/L BUN 14 (7-17) mg/dL Creatinine 0.63 (0.52-1.04) mg/dL Estimated GFR > 60.0 ML/MIN Glucose 267 H (74-106) mg/dL POC Glucometer 201 H (74 to 106) mg/dL Hemoglobin A1c (4.5-6.0) % Calcium 9.3 (8.4-10.2) mg/dL Total Bilirubin 0.40 (0.2-1.3) mg/dL AST 25 (14-36) U/L ALT 26 (0-35) U/L Alkaline Phosphatase 163 H (38-126) U/L Troponin I (0.000-0.034) ng/mL Serum Total Protein 6.6 (6.3-8.2) g/dL Albumin 3.5 (3.5-5.0) g/dL Micro Results-Entire Visit: Microbiology 06/10/21 23:50 Blood Culture - Preliminary Blood NO GROWTH TO DATE 06/10/21 23:45 Blood Culture - Preliminary Blood NO GROWTH TO DATE Accuchecks Date 06/12/21 Date 06/11/21 Date 06/11/21 Date 06/11/21 Time 07:30 Time 21:00 Time 04:55 - Radiology Exams Ordered Rad Exams-Entire Visit: Radiology Procedures Category Date Time Status CHEST 1 VIEW (PORTABLE) Stat Exams 06/10/21 22:52 Completed MRI BRAIN W & W/O CONTRAST [MRI] Routine Exams 06/12/21 08:39 Ordered - Procedures and Test Procedures and Tests throughout Hospitalization: Therapy Orders & Screens 06/11/21 04:19 Oxygen Nasal Cannula 2 lpm Comment: 06/11/21 04:54 RT Screen per Nursing Assess ONCE Comment: Protocol Order Physician Instructions: Greater than 3 points order RT Admission Screen Reason For Exam: Triggered on Admission Diagnosis: NAUSEA,PAIN Diagnosis: NAUSEA,PAIN Home O2: No Asthma: Yes CHF: No Home CPAP/BIPAP: Yes Home Nebs/MDI: Yes Total Points: 14 06/11/21 05:06 Respiratory Therapy Assessment DAILY Comment: Diagnosis: NAUSEA,PAIN 06/11/21 12:08 RT Miscellaneous Order ROUTINE Comment: Physician Instructions: WEAN OFF OXYGEN- PATIENT DOES NOT WEAR ANY AT HOME Reason For Exam: Diagnosis: NAUSEA,PAIN Discharge Exam General Appearance: no apparent distress, alert, obese Neurologic Exam: oriented x 3, cooperative, normal mood/affect Eye Exam: eyes nml inspection Ears, Nose, Throat Exam: moist mucous membranes Neck Exam: normal inspection Respiratory Exam: normal breath sounds, lungs clear, No crackles/rales, No rho nchi, No wheezing Cardiovascular Exam: regular rate/rhythm, normal heart sounds, No murmur Gastrointestinal/Abdomen Exam: soft, normal bowel sounds, No tenderness, No mass Extremity Exam: normal inspection Skin Exam: normal color, warm, dry, No rash Final Diagnosis/Problem List - Final Discharge Diagnosis/Problem (1) Sepsis Current Visit: Yes Status: Resolved Assessment & Plan: Blood cultures negative x 2 at this time. (2) COPD exacerbation Current Visit: Yes Status: Acute Assessment & Plan: home on po levaquin. Code(s): J44.1 - CHRONIC OBSTRUCTIVE PULMONARY DISEASE W (ACUTE) EXACERBATION (3) Pneumonia Current Visit: Yes Status: Ruled-out Code(s): J18.9 - PNEUMONIA, UNSPECIFIED ORGANISM (4) Headache Current Visit: Yes Status: Acute Assessment & Plan: MRI brain. Code(s): R51.9 - HEADACHE, UNSPECIFIED (5) Hyperglycemia Current Visit: Yes Status: Chronic Assessment & Plan: a1c is > 11 - she has seen endocrinology. Following up with Dr. marrero as well. Code(s): R73.9 - HYPERGLYCEMIA, UNSPECIFIED (6) Type 2 diabetes mellitus Current Visit: No Status: Chronic (7) Coronary artery disease Current Visit: No Status: Chronic Code(s): I25.10 - ATHSCL HEART DISEASE OF [place] CORONARY ARTERY W/O ANG PCTRS (8) Morbid obesity Current Visit: No Status: Chronic Code(s): E66.01 - MORBID (SEVERE) OBESITY DUE TO EXCESS CALORIES (9) DVT prophylaxis Current Visit: Yes Status: Acute Code(s): Z29.9 - ENCOUNTER FOR PROPHYLACTIC MEASURES, UNSPECIFIED - Discharge Disposition: Home, Self-Care Condition: Good Prescriptions: New SUMAtriptan succinate [Imitrex 50 mg] 50 mg PO DAILY PRN PRN 30 Days #9 tablet PRN Reason: Headache Levofloxacin [Levaquin] 750 mg PO DAILY #8 tablet Continue Mesalamine [Pentasa] 500 mg PO BID Metformin HCl 1000 mg [Glucophage 1000 MG] 1,000 mg PO BID Omeprazole 20 MG [Prilosec 20 mg] 20 mg PO BID Methocarbamol 500 mg [Robaxin 500 MG] 1,000 mg PO QIDPRN PRN PRN Reason: Pain Duloxetine HCl 60 mg PO DAILY Atorvastatin Calcium 10 mg PO DAILY Insulin Glargine,Hum.rec.anlog [Yohannesaglmaria esther Gordillopen U-100] 38 unit SQ HS Meclizine HCl 25 mg [Antivert 25 mg] 25 mg PO DAILY PRN PRN Reason: Dizziness Insulin Aspart [Novolog] 44 unit SQ AC Levothyroxine Sodium 25 Mcg [Synthroid 25 Mcg] 25 mcg PO DAILY Isosorbide Mononitrate 60 mg [Imdur 60MG] 120 mg PO DAILY Metoprolol Succinate 100 mg [Toprol Xl 100 MG] 100 mg PO DAILY Albuterol Sulfate [Albuterol Sulfate Hfa] 2 puffs IH Q4HPRN PRN PRN Reason: Shortness Of Breath PARoxetine HCl [Paxil] 10 mg PO DAILY Diclofenac Sodium Gel [Voltaren GEL] 100 gm TP TID #1 gel..gm. L.acidoph,Paracasei, B.lactis [Probiotic] 1 cap PO DAILY Additional Instructions: If any chest pain or tightness with imitrex, stop using it and go to ER. Follow up with: CALVIN MARRERO [Primary Care Provider] -
--- NOTE | 2021-06-12 10:48 | XRAY ---
Indication: New onset headache 1 month. Blurry vision. Sagittal, coronal, and axial MRI brain performed using pre-and post T1, T2, FLAIR, diffusion, and ADC sequences. 29 cc Dotarem contrast use. Comparison: None Age-appropriate global atrophy with moderate periventricular degenerative micro-ischemia signal bilaterally. Diffusion images are negative for restricted signal. No acute intracranial hemorrhage, abnormal extra-axial fluid collection, or mass effect. Postcontrast T1 axial image demonstrates sub-5 mm high signal left basal ganglia. No corresponding signal abnormality on other pre or postcontrast images and therefore not felt to be real. Otherwise no abnormal enhancing intra or extra-axial mass. Fourth ventricle is midline without hydrocephalus. 7/8 cranial nerve complex bilaterally symmetric. Normal flow void signal within the major intracerebral circulation. Normal appearing craniocervical junction and sella turcica. Paranasal sinuses are clear. Impression: 1. Normal aging brain including atrophy and degenerative micro-ischemia. 2. Remaining MRI brain with contrast exam is negative.
[2021-06-12] MEDS: Acidophilus TABLET PO SCH (11:08)
[2021-06-12] MEDS: SYNTHROID 25 MCG PO SCH (11:08)
[2021-06-12] MEDS: Zocor 10MG PO SCH (11:08)
[2021-06-12] MEDS: Cymbalta 30 MG Capsule PO SCH (11:08)
[2021-06-12] MEDS: Protonix 40MG Tablet PO SCH (11:08)
[2021-06-12] MEDS: Voltaren GEL TP SCH (11:09)
[2021-06-12] MEDS: Toprol Xl 100 MG PO SCH (11:14)
[2021-06-12] MEDS: Imdur 60MG PO SCH (11:15)
[2021-06-12 12:59] VITALS: BP 98/49; PULSE 69
[2021-06-13 17:22] VITALS: O2SAT 95
== END 2021-06-12 12:13 | disposition home or self-care (01) ==
LOC: ED 21:53 → MED SURG 06-11 04:11
PROVIDERS: ADMIT Family Medicine; ATTEND Family Medicine
DX: A41.9 Sepsis, unspecified organism (principal); J18.9 Pneumonia, unspecified organism; R51.9 Headache, unspecified; E11.65 Type 2 diabetes mellitus with hyperglycemia; J44.1 Chronic obstructive pulmonary disease with (acute) exacerbation; R53.83 Other fatigue; I10 Essential (primary) hypertension; R07.9 Chest pain, unspecified; R42 Dizziness and giddiness; Z79.899 Other long term (current) drug therapy; I25.10 Atherosclerotic heart disease of native coronary artery without angina pectoris; E66.01 Morbid (severe) obesity due to excess calories; R53.1 Weakness; Z20.822 Contact with and (suspected) exposure to COVID-19
CPT/HCPCS: 36000; 36415; 70553; 71045; 80053; 81001; 82947; 83036; 83605; 83690; 84484; 85025; 87040; 93268; 94760; 96360; 96374; 96375; 99285; G0378; U0003; J1815; J1817; J1885; J1956; J2405; J3030; A9270-GY

== ENCOUNTER 2021-06-17 12:12 | Emergency (ER) | payer MEDICARE ==
--- NOTE | 2021-06-17 12:22 | ERPHSYRPT ---
- History of Present Illness Time Seen by Provider: 06/17/21 12:21 Source: patient Exam Limitations: no limitations Physician History: This is a 61-year-old morbidly obese white female patient of Dr. Holguin who has a history of Crohn's disease, diabetes, hypothyroidism, gastroesophageal reflux disease hypertension, fibromyalgia, COPD and sleep apnea who presents today with a few day history of left upper quadrant abdominal pain and loose stools with blood within it. Patient does not see a dental technician metal. She has not had a colonoscopy in the recent past. Patient states when she has the symptoms usually Dr. Holguin just calls and steroids and the symptoms resolved. However, Dr. Holguin's not the office today. Patient has has been seen several times in this emergency department for symptoms of nausea, vomiting, cough, headache and diarrhea. Her primary complaints today is that of bloody diarrhea and the left upper quadrant abdominal pain. Timing/Duration: other (Chronic symptoms for over a month) Severity: mild Associated Symptoms: abdominal pain (Left upper quadrant), No nausea, No vomiting, No shortness of breath, No chest pain Allergies/Adverse Reactions: cyclobenzaprine HCl [From Flexeril] Allergy (Mild, Verified 06/17/21 12:39) Rash metoclopramide [From Reglan] Allergy (Mild, Verified 06/17/21 12:39) Rash Sulfa (Sulfonamide Antibiotics) [Sulfa(Sulfonamide Antibiotics)] Allergy (Mild, Verified 06/17/21 12:39) Rash adhesive Allergy (Verified 06/17/21 12:39) Rash nalbuphine HCl [From Nubain] Adverse Reaction (Intermediate, Verified 06/17/21 12:39) Stomach Cramps patient states she had stomach "burning" and that her legs felt like "rubber bands" ciprofloxacin [From Cipro] Adverse Reaction (Mild, Verified 06/17/21 12:39) meperidine HCl [From Demerol] Adverse Reaction (Mild, Verified 06/17/21 12:39) Vomiting morphine Adverse Reaction (Verified 06/17/21 12:39) ADDICTION PT STATES SHE TOOK MORPHINE YEARS AGO AND IT WAS HARD TO GET OFF OF IT AND DOES NOT WANT IT Home Medications: Duloxetine HCl 60 mg PO DAILY 03/17/16 [History] Mesalamine [Pentasa] 500 mg PO BID 03/17/16 [History] Metformin HCl 1000 mg [Glucophage 1000 MG] 1,000 mg PO BID 03/17/16 [History] Methocarbamol 500 mg [Robaxin 500 MG] 1,000 mg PO QIDPRN PRN 03/17/16 [History] Omeprazole 20 MG [Prilosec 20 mg] 20 mg PO BID 03/17/16 [History] Atorvastatin Calcium 10 mg PO DAILY 01/25/18 [History] Insulin Glargine,Hum.rec.anlog [Basaglar Kwikpen U-100] 38 unit SQ HS 12/05/19 [History] Meclizine HCl 25 mg [Antivert 25 mg] 25 mg PO DAILY PRN 12/05/19 [History] Insulin Aspart [Novolog] 44 unit SQ AC 08/02/20 [History] Isosorbide Mononitrate 60 mg [Imdur 60MG] 120 mg PO DAILY 12/31/20 [History] Levothyroxine Sodium 25 Mcg [Synthroid 25 Mcg] 25 mcg PO DAILY 12/31/20 [History] Metoprolol Succinate 100 mg [Toprol Xl 100 MG] 100 mg PO DAILY 12/31/20 [History] Albuterol Sulfate [Albuterol Sulfate Hfa] 2 puffs IH Q4HPRN PRN 01/18/21 [History] PARoxetine HCl [Paxil] 10 mg PO DAILY 01/18/21 [History] L.acidoph,Paracasei, B.lactis [Probiotic] 1 cap PO DAILY 06/11/21 [History] Hx Tetanus, Diphtheria Vaccination/Date Given: No Hx Influenza Vaccination/Date Given: No Hx Pneumococcal Vaccination/Date Given: No Travel Risk - International Travel Have you traveled outside of the country in past 3 weeks: No - Coronavirus Screening Are you exhibiting any of the following symptoms?: No Close contact with a COVID-19 positive Pt in past 14-21 Days: No - Vaccine Status Have you recieved a Covid-19 vaccination: No - Review of Systems Constitutional: No Symptoms Eyes: No Symptoms Ears, Nose, & Throat: No Symptoms Respiratory: No Symptoms Cardiac: No Symptoms Abdominal/Gastrointestinal: Abdominal Pain (Left upper quadrant), Diarrhea, Constipation, No Nausea, No Vomiting Genitourinary Symptoms: No Symptoms Musculoskeletal: No Symptoms Skin: No Symptoms Neurological: No Symptoms Psychological: No Symptoms Endocrine: No Symptoms Hematologic/Lymphatic: No Symptoms Immunological/Allergic: No Symptoms All Other Systems: Reviewed and Negative - Past Medical History Pertinent Past Medical History: Yes Neurological History: Migraines ENT History: Cataracts Cardiac History: Coronary Artery Disease, High Cholesterol, Hypertension, Myocardial Infarction ([place]) Respiratory History: Asthma, Bronchitis, COPD, Sleep Apnea Endocrine Medical History: Diabetes Type II Musculoskeletal History: Arthritis, Degenerative Disk Disease, Fibromyalgia, Osteoarthritis GI Medical History: Crohns Disease, Diverticulitis, GERD History: No Pertinent History Psycho-Social History: Anxiety, Depression Female Reproductive Disorders: No Pertinent History Other Medical History: HX UTI, HX Yeast Infection, Neuropathy - Past Surgical History Past Surgical History: Yes Neuro Surgical History: No Pertinent History Cardiac: Cardiac Catheterization Respiratory: No Pertinent History Gastrointestinal: No Pertinent History Genitourinary: No Pertinent History Musculoskeletal: No Pertinent History Female Surgical History: Dilation & Curettage, Section, Tubal Ligation Other Surgical History: KIDNEY STONE REMOVAL. heart cath x3, no stents - Social History Smoking Status: Never smoker How long have you smoked: years Exposure to second hand smoke: No Alcohol Use: None Drug Use: none Patient Lives Alone: Yes Significant Family History: no pertinent family hx, diabetes, hypertension - Nursing Vital Signs Nursing Vital Signs: Initial Vital Signs Temperature 97 F 06/17/21 12:30 Pulse Rate 120 H 06/17/21 12:30 Respiratory Rate 34 H 06/17/21 12:30 Blood Pressure 171/92 06/17/21 12:30 O2 Sat by Pulse Oximetry 97 06/17/21 12:30 Pain Scale Pain Intensity 4 - Physical Exam General Appearance: no apparent distress, alert, anxiety Eye Exam: PERRL/EOMI, eyes nml inspection Ears, Nose, Throat Exam: normal ENT inspection, moist mucous membranes Neck Exam: normal inspection, non-tender, supple, full range of motion Respiratory Exam: normal breath sounds, lungs clear, No chest tenderness, No respiratory distress Cardiovascular Exam: tachycardia Gastrointestinal/Abdomen Exam: soft, normal bowel sounds, tenderness (Left upper quadrant), guarding (Left upper quadrant), No rebound Pelvic Exam: not done Rectal Exam: not done Back Exam: normal inspection, normal range of motion, No CVA tenderness, No vertebral tenderness Extremity Exam: normal inspection, normal range of motion, pelvis stable Neurologic Exam: alert, oriented x 3, cooperative, landscape 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 II-XII nml as tested, normal mood/affect, nml cerebellar function, nml station & gait, sensation nml Skin Exam: normal color, warm, dry Lymphatic Exam: No adenopathy SpO2 Interpretation: normal O2 Delivery: Room Air - Course Nursing assessment & vital signs reviewed: Yes Ordered Tests: Active Orders 24 hr Category Date Time Status IV Insertion STAT Care 06/17/21 13:12 Active ABDOMEN AND PELVIS W/0 CONTRAS [CT] Stat Exams 06/17/21 13:15 Completed AMYLASE Stat Lab 06/17/21 13:25 Completed CBC W DIFF Stat Lab 06/17/21 13:25 Completed CMP Stat Lab 06/17/21 13:25 Completed LIPASE Stat Lab 06/17/21 13:25 Completed Lactic Acid Stat Lab 06/17/21 13:30 Completed UA W/RFX UR CULTURE Stat Lab 06/17/21 13:28 Completed Medication Summary Discontinued Medications Generic Name Dose Route Start Last Admin Trade Name Fadia PRN Reason Stop Dose Admin Methylprednisolone Sodium 0 mg 06/17/21 14:17 06/17/21 14:21 Succinate 125 mg/ Sterile IV 06/17/21 14:18 125 mg Water 2 ml STAT ONE Administration Sodium Chloride 1,000 mls @ 999 mls/hr 06/17/21 13:12 06/17/21 13:37 Sodium Chloride 0.9% 1000 Ml IV 06/17/21 14:12 999 mls/hr .Q1H1M STA Administration Sodium Chloride Confirm 06/17/21 13:23 Sodium Chloride 0.9% 1000 Ml Administered 06/17/21 13:24 Dose 1,000 mls @ ud .ROUTE .STK-MED ONE Sodium Chloride Confirm 06/17/21 13:33 Sodium Chloride 0.9% 1000 Ml Administered 06/17/21 13:34 Dose 1,000 mls @ ud .ROUTE .STK-MED ONE Methylprednisolone Sodium Succinate Confirm 06/17/21 14:19 Solu-Medrol Administered 06/17/21 14:20 Dose 125 mg .ROUTE .STK-MED ONE Pantoprazole Sodium 40 mg 06/17/21 13:12 06/17/21 13:36 Protonix 40 Mg Iv IV 06/17/21 13:13 40 mg STAT ONE Administration Pantoprazole Sodium Confirm 06/17/21 13:23 Protonix 40 Mg Iv Administered 06/17/21 13:24 Dose 40 mg IV .STK-MED ONE Pantoprazole Sodium Confirm 06/17/21 13:33 Protonix 40 Mg Iv Administered 06/17/21 13:34 Dose 40 mg IV .STK-MED ONE Sterile Water Confirm 06/17/21 14:19 Sterile H2o 10 Ml Administered 06/17/21 14:20 Dose 10 ml IJ .STK-MED ONE Lab/Rad Data: Laboratory Result Diagrams 06/17/21 13:25 06/17/21 13:25 Laboratory Results 06/17/21 06/17/21 06/17/21 Range/Units 13:30 13:28 13:25 WBC (4.0-10.5) K/mm3 RBC (4.1-5.4) M/mm3 Hgb (12.0-16.0) gm/dl Hct (35-47) % MCV (78-100) fl MCH (26-32) pg MCHC (32-36) g/dl RDW (11.5-14.0) % Plt Count (150-450) K/mm3 MPV (7.5-11.0) fl Gran % (36.0-66.0) % Eos # (Auto) (0-0.5) Absolute Lymphs (auto) (1.0-4.6) Absolute Monos (auto) (0.0-1.3) Lymphocytes % (24.0-44.0) % Monocytes % (0.0-12.0) % Eosinophils % (0.00-5.0) % Basophils % (0.0-0.4) % Absolute Granulocytes (1.4-6.9) Basophils # (0-0.4) Sodium 137 (137-145) mmol/L Potassium 3.5 (3.5-5.1) mmol/L Chloride 105 (98-107) mmol/L Carbon Dioxide 17 L (22-30) mmol/L Anion Gap 18.0 H (5-15) MEQ/L BUN 10 (7-17) mg/dL Creatinine 0.69 (0.52-1.04) mg/dL Estimated GFR > 60.0 ML/MIN Glucose 229 H (74-106) mg/dL Lactic Acid 3.0 H (0.4-2.0) Calcium 8.6 (8.4-10.2) mg/dL Total Bilirubin 0.90 (0.2-1.3) mg/dL AST 18 (14-36) U/L ALT 22 (0-35) U/L Alkaline Phosphatase 147 H (38-126) U/L Serum Total Protein 6.8 (6.3-8.2) g/dL Albumin 3.4 L (3.5-5.0) g/dL Amylase 44 (30-110) U/L Lipase 51 (23-300) U/L Urine Color YELLOW (YELLOW) Urine Appearance SLIGHTLY CLOUDY (CLEAR) Urine pH 6.0 (5-6) Ur Specific [place] 1.013 (1.005-1.025) Urine Protein NEGATIVE (Negative) Urine Ketones NEGATIVE (NEGATIVE) Urine Blood NEGATIVE (0-5) Jeff/ul Urine Nitrite NEGATIVE (NEGATIVE) Urine Bilirubin NEGATIVE (NEGATIVE) Urine Urobilinogen NEGATIVE (0-1) mg/dL Ur Leukocyte Esterase SMALL (NEGATIVE) Urine WBC (Auto) 0-2 (0-5) /HPF Urine RBC (Auto) 3-5 (0-2) /HPF U Epithel Cells (Auto) RARE (FEW) /HPF Urine Bacteria (Auto) RARE (NEGATIVE) /HPF Urine Mucus (Auto) SLIGHT (NEGATIVE) /HPF Urine Culture Reflexed NO (NO) Urine Glucose 50 (NEGATIVE) mg/dL 06/17/21 Range/Units 13:25 WBC 7.6 (4.0-10.5) K/mm3 RBC 4.55 (4.1-5.4) M/mm3 Hgb 11.7 L (12.0-16.0) gm/dl Hct 38.2 (35-47) % MCV 84.0 (78-100) fl MCH 25.7 L (26-32) pg MCHC 30.6 L (32-36) g/dl RDW 17.3 H (11.5-14.0) % Plt Count 206 (150-450) K/mm3 MPV 12.4 H (7.5-11.0) fl Gran % 76.7 H (36.0-66.0) % Eos # (Auto) 0.19 (0-0.5) Absolute Lymphs (auto) 1.02 (1.0-4.6) Absolute Monos (auto) 0.54 (0.0-1.3) Lymphocytes % 13.4 L (24.0-44.0) % Monocytes % 7.1 (0.0-12.0) % Eosinophils % 2.5 (0.00-5.0) % Basophils % 0.3 (0.0-0.4) % Absolute Granulocytes 5.85 (1.4-6.9) Basophils # 0.02 (0-0.4) Sodium (137-145) mmol/L Potassium (3.5-5.1) mmol/L Chloride (98-107) mmol/L Carbon Dioxide (22-30) mmol/L Anion Gap (5-15) MEQ/L BUN (7-17) mg/dL Creatinine (0.52-1.04) mg/dL Estimated GFR ML/MIN Glucose (74-106) mg/dL Lactic Acid (0.4-2.0) Calcium (8.4-10.2) mg/dL Total Bilirubin (0.2-1.3) mg/dL AST (14-36) U/L ALT (0-35) U/L Alkaline Phosphatase (38-126) U/L Serum Total Protein (6.3-8.2) g/dL Albumin (3.5-5.0) g/dL Amylase (30-110) U/L Lipase (23-300) U/L Urine Color (YELLOW) Urine Appearance (CLEAR) Urine pH (5-6) Ur Specific [place] (1.005-1.025) Urine Protein (Negative) Urine Ketones (NEGATIVE) Urine Blood (0-5) Jeff/ul Urine Nitrite (NEGATIVE) Urine Bilirubin (NEGATIVE) Urine Urobilinogen (0-1) mg/dL Ur Leukocyte Esterase (NEGATIVE) Urine WBC (Auto) (0-5) /HPF Urine RBC (Auto) (0-2) /HPF U Epithel Cells (Auto) (FEW) /HPF Urine Bacteria (Auto) (NEGATIVE) /HPF Urine Mucus (Auto) (NEGATIVE) /HPF Urine Culture Reflexed (NO) Urine Glucose (NEGATIVE) mg/dL - Progress Progress: improved, pain not gone completely, re-examined Progress Note: 06/17/21 14:19 CAT scan of the abdomen and pelvis without contrast shows recurrent mild left hemicolon colitis. Counseled pt/family regarding: lab results, diagnosis, need for follow-up, rad results - Departure Departure Disposition: Home Clinical Impression: Colitis Condition: Stable Critical Care Time: No Referrals: CALVIN HOLGUIN [Primary Care Provider] - Additional Instructions: Drink plenty of clear liquids. Take your medication as prescribed. Follow-up with Dr. Holguin in his office for further management. Prescriptions: Ciprofloxacin [Cipro 500 MG] 500 mg PO BID #14 tablet Prednisone 10 mg [Deltasone 10 mg] 10 mg PO TID #12 tablet Metronidazole 500 mg [Flagyl 500 MG] 500 mg PO TID #21 tablet
[2021-06-17] MEDS ORDERED: PROTONIX 40 MG IV IV ONE ×3 (13:12→13:33)
[2021-06-17] MEDS ORDERED: Sodium Chloride 0.9% 1000 ML 1,000 ML IV STA (13:12)
[2021-06-17] MEDS ORDERED: Sodium Chloride 0.9% 1000 ML 0 ML ONE (13:23)
[2021-06-17] MEDS ORDERED: Sodium Chloride 0.9% 1000 ML 1,000 ML ONE (13:33)
[2021-06-17 13:36] LABS: Appearance SLIGHTLY CLOUDY (CLEAR); Bacteria RARE /HPF (NEGATIVE); Bilirubin NEGATIVE (NEGATIVE); Blood NEGATIVE Ery/ul (0-5); Epithelial Cells RARE /HPF (FEW); Glucose 50 mg/dL (NEGATIVE); Ketones NEGATIVE (NEGATIVE); Leukocyte Esterase SMALL (NEGATIVE); Mucus SLIGHT /HPF (NEGATIVE); Nitrite NEGATIVE (NEGATIVE); Protein,Urine Dip NEGATIVE (Negative); Specific Gravity 1.013 (1.005-1.025); Urobilinogen NEGATIVE mg/dL (0-1); WBC 0-2 /HPF (0-5)
[2021-06-17 13:54] LABS: Absolute Neutrophil Ct (ANC) 5.85 (1.4-6.9); BASOPHIL % 0.3 % (0.0-0.4); Basophil (Absolute #) 0.02 (0-0.4); Eosinophil % 2.5 % (0.00-5.0); Eosinophil (Absolute #) 0.19 (0-0.5); Hematocrit 38.2 % (35-47); Hemoglobin 11.7 gm/dl (12.0-16.0); Lymphocyte (Absolute #) 1.02 (1.0-4.6); Lymphocytes % 13.4 % (24.0-44.0); Mean Corpuscular Hemoglobin 25.7 pg (26-32); Mean Corpuscular Hgb Concent. 30.6 g/dl (32-36); Mean Platelet Volume 12.4 fl (7.5-11.0); Monocyte (Absolute #) 0.54 (0.0-1.3); Monocytes % 7.1 % (0.0-12.0); Neutrophil % 76.7 % (36.0-66.0); Platelet Count 206 K/mm3 (150-450); Red Blood Count 4.55 M/mm3 (4.1-5.4); Red Cell Distribution Width 17.3 % (11.5-14.0); White Blood Count 7.6 K/mm3 (4.0-10.5)
--- NOTE | 2021-06-17 14:15 | XRAY ---
Indication: Abdomen/pelvic pain and nausea. Blood in stool. Crohn's disease/ulcerative colitis. Multiple contiguous axial images obtained through the abdomen and pelvis without contrast. Comparison: January 18, 2021. Lung bases again demonstrates minimal dependent atelectasis. No infiltrate or effusion. Heart is not enlarged. Noncontrasted stomach and bowel loops are nonobstructed. Appendix not seen. Distal transverse and mid to proximal descending colon demonstrates mild circumferential wall thickening with minimal pericolonic stranding favoring colitis. No free fluid/air. New tiny gallbladder sludge/gravel in the dependent portion. Stable bilateral renal cysts. Remaining liver, gallbladder, pancreas, spleen, adrenal glands, kidneys, ureters, bladder, and uterus are unremarkable for noncontrast exam. Stable minimal aortoiliac calcifications without AAA. Osseous structures intact again with mild degenerative changes throughout the thoracolumbar spine. Impression: 1. Recurrent mild left hemicolon colitis. No complications. 2. New tiny gallbladder sludge/gravel. 3. Again incidental bilateral renal cysts.
[2021-06-17] MEDS ORDERED: solu-MEDROL 125 MG, Sterile H2O 10 ml 2 ML IV ONE ×2 (14:17)
[2021-06-17] MEDS ORDERED: Sterile H2O 10 ml IJ ONE (14:19)
[2021-06-17] MEDS ORDERED: solu-MEDROL ONE (14:19)
[2021-06-17 14:57] LABS: ALBUMIN 3.4 g/dL (3.5-5.0); ALKALINE PHOSPHATASE 147 U/L (38-126); AMYLASE 44 U/L (30-110); BLOOD UREA NITROGEN 10 mg/dL (7-17); CHLORIDE 105 mmol/L (98-107); Calcium 8.6 mg/dL (8.4-10.2); Carbon Dioxide 17 mmol/L (22-30); Creatinine 1 0.69 mg/dL (0.52-1.04); EST GLOMERULAR FILTRATION RATE > 60.0 ML/MIN; Glucose 229 mg/dL (74-106); LIPASE 51 U/L (23-300); Potassium 3.5 mmol/L (3.5-5.1); SGOT/AST 18 U/L (14-36); SGPT/ALT 22 U/L (0-35); SODIUM 137 mmol/L (137-145); Total Protein 6.8 g/dL (6.3-8.2)
[2021-06-17 15:14] VITALS: BP 122/80; PULSE 102; O2SAT 95
[2021-06-17] MEDS ORDERED: MORPHINE SULFATE 4 MG INJ IV ONE (16:16)
== END 2021-06-17 16:20 | disposition home or self-care (01) ==
LOC: ED 12:12
DX: K52.9 Noninfective gastroenteritis and colitis, unspecified (principal)
CPT/HCPCS: 36000; 36415; 74176; 80053; 81001; 82150; 83605; 83690; 85025; 96360; 96374; 96375; 99284; J2930

== ENCOUNTER 2021-06-30 07:09 | Emergency (ER) | payer MEDICARE ==
[2021-06-30 07:33] VITALS: O2SAT 99
--- NOTE | 2021-06-30 07:50 | ERPHSYRPT ---
- History of Present Illness Source: patient Exam Limitations: no limitations Patient Subjective Stated Complaint: pt here for rash to [place] area for 3 days now, she finished antiboitcs 3 days ago Triage Nursing Assessment: pt alert, resp labored with getting undressed, face mask in place, pt was incont of stool and had to go to bathroom tp get cleaned up, Physician History: 61 yo wf w perineal rash x 3 days. Pt is morbidly obese and has just recently finished cipro/Flagyl for Crohn's dz. She still has chronic diarrhea and states that her DM has had borderline control. Timing/Duration: other (3 days) Quality: painful Severity: moderate Location: genitalia, perirectal Possible Causes: other (DM/Diarrhea) Associated Symptoms: No blisters, No change in skin texture, No difficulty breathing, No edema, No fever, No flushing, No headache, No hives, No jaundice, No malaise, No nasal congestion, No numbness, No pallor, No paresthesia, No petechiae, No rash, No sore throat, No swelling/mass/lumps, No tingling Allergies/Adverse Reactions: cyclobenzaprine HCl [From Flexeril] Allergy (Mild, Verified 06/30/21 07:18) Rash metoclopramide [From Reglan] Allergy (Mild, Verified 06/30/21 07:18) Rash Sulfa (Sulfonamide Antibiotics) [Sulfa(Sulfonamide Antibiotics)] Allergy (Mild, Verified 06/30/21 07:18) Rash adhesive Allergy (Verified 06/30/21 07:18) Rash nalbuphine HCl [From Nubain] Adverse Reaction (Intermediate, Verified 06/30/21 07:18) Stomach Cramps patient states she had stomach "burning" and that her legs felt like "rubber bands" ciprofloxacin [From Cipro] Adverse Reaction (Mild, Verified 06/30/21 07:18) meperidine HCl [From Demerol] Adverse Reaction (Mild, Verified 06/30/21 07:18) Vomiting morphine Adverse Reaction (Verified 06/30/21 07:18) ADDICTION PT STATES SHE TOOK MORPHINE YEARS AGO AND IT WAS HARD TO GET OFF OF IT AND DOES NOT WANT IT Home Medications: Duloxetine HCl 60 mg PO DAILY 03/17/16 [History] Mesalamine [Pentasa] 500 mg PO BID 03/17/16 [History] Metformin HCl 1000 mg [Glucophage 1000 MG] 1,000 mg PO BID 03/17/16 [History] Methocarbamol 500 mg [Robaxin 500 MG] 1,000 mg PO QIDPRN PRN 03/17/16 [History] Omeprazole 20 MG [Prilosec 20 mg] 20 mg PO BID 03/17/16 [History] Atorvastatin Calcium 10 mg PO DAILY 01/25/18 [History] Insulin Glargine,Hum.rec.anlog [Basaglar Kwikpen U-100] 38 unit SQ HS 12/05/19 [History] Meclizine HCl 25 mg [Antivert 25 mg] 25 mg PO DAILY PRN 12/05/19 [History] Insulin Aspart [Novolog] 44 unit SQ AC 08/02/20 [History] Isosorbide Mononitrate 60 mg [Imdur 60MG] 120 mg PO DAILY 12/31/20 [History] Levothyroxine Sodium 25 Mcg [Synthroid 25 Mcg] 25 mcg PO DAILY 12/31/20 [History] Metoprolol Succinate 100 mg [Toprol Xl 100 MG] 100 mg PO DAILY 12/31/20 [History] Albuterol Sulfate [Albuterol Sulfate Hfa] 2 puffs IH Q4HPRN PRN 01/18/21 [ History] PARoxetine HCl [Paxil] 10 mg PO DAILY 01/18/21 [History] L.acidoph,Paracasei, B.lactis [Probiotic] 1 cap PO DAILY 06/11/21 [History] Hx Tetanus, Diphtheria Vaccination/Date Given: No Hx Influenza Vaccination/Date Given: No Hx Pneumococcal Vaccination/Date Given: No Immunizations Up to Date: Yes Travel Risk - International Travel Have you traveled outside of the country in past 3 weeks: No - Coronavirus Screening Are you exhibiting any of the following symptoms?: No Close contact with a COVID-19 positive Pt in past 14-21 Days: No - Vaccine Status Have you recieved a Covid-19 vaccination: No - Review of Systems Constitutional: No Symptoms Eyes: No Symptoms Ears, Nose, & Throat: No Symptoms Respiratory: No Symptoms Cardiac: No Symptoms Abdominal/Gastrointestinal: No Symptoms, Diarrhea Genitourinary Symptoms: No Symptoms Musculoskeletal: No Symptoms Skin: No Symptoms Neurological: No Symptoms Psychological: No Symptoms Endocrine: No Symptoms Hematologic/Lymphatic: No Symptoms Immunological/Allergic: No Symptoms - Past Medical History Pertinent Past Medical History: Yes Neurological History: Migraines ENT History: Cataracts Cardiac History: Coronary Artery Disease, High Cholesterol, Hypertension, Myocardial Infarction ([place]) Respiratory History: Asthma, Bronchitis, COPD, Sleep Apnea Endocrine Medical History: Diabetes Type II Musculoskeletal History: Arthritis, Degenerative Disk Disease, Fibromyalgia, Osteoarthritis GI Medical History: Crohns Disease, Diverticulitis, GERD History: No Pertinent History Psycho-Social History: Anxiety, Depression Female Reproductive Disorders: No Pertinent History Other Medical History: HX UTI, HX Yeast Infection, Neuropathy - Past Surgical History Past Surgical History: Yes Neuro Surgical History: No Pertinent History Cardiac: Cardiac Catheterization Respiratory: No Pertinent History Gastrointestinal: No Pertinent History Genitourinary: No Pertinent History Musculoskeletal: No Pertinent History Female Surgical History: Dilation & Curettage, Section, Tubal Ligation Other Surgical History: KIDNEY STONE REMOVAL. heart cath x3, no stents - Social History Smoking Status: Never smoker How long have you smoked: years Exposure to second hand smoke: No Alcohol Use: None Drug Use: none Patient Lives Alone: Yes Significant Family History: no pertinent family hx, diabetes, hypertension - Female History Hx Last Menstrual Period: post Hx Now: No - Nursing Vital Signs Nursing Vital Signs: Initial Vital Signs Temperature 97.8 F 06/30/21 07:19 Pulse Rate 130 H 06/30/21 07:19 Respiratory Rate 28 H 06/30/21 07:19 Blood Pressure 229/110 06/30/21 07:19 O2 Sat by Pulse Oximetry 97 06/30/21 07:19 Pain Scale Pain Intensity 9 Hypertensive - Physical Exam General Appearance: no apparent distress Eye Exam: PERRL/EOMI, eyes nml inspection Ears, Nose, Throat Exam: normal ENT inspection, TMs normal, pharynx normal, moist mucous membranes, tonsillar exudate Neck Exam: normal inspection, non-tender, supple, No meningismus, No mass, No Brudzinski, No Kernig's Respiratory Exam: normal breath sounds, lungs clear, airway intact Cardiovascular Exam: tachycardia Gastrointestinal/Abdomen Exam: soft, normal bowel sounds, No tenderness Back Exam: normal inspection, normal range of motion, No CVA tenderness, No vertebral tenderness Extremity Exam: normal inspection, normal range of motion Neurologic Exam: alert, oriented x 3, cooperative, cardiac nurse II-XII nml as tested, normal mood/affect, nml cerebellar function, nml station & gait, sensation nml, No motor deficits, No sensory deficit Skin Exam: other (Yeast infection perineal/perianal area) SpO2: 99 O2 Delivery: Room Air - Course Nursing assessment & vital signs reviewed: Yes Ordered Tests: Active Orders 24 hr Category Date Time Status CBC W DIFF Stat Lab 06/30/21 07:50 Completed CMP Stat Lab 06/30/21 07:50 Completed Lab/Rad Data: Laboratory Result Diagrams 06/30/21 07:50 06/30/21 07:50 Laboratory Results 06/30/21 06/30/21 Range/Units 07:50 07:50 WBC 9.7 (4.0-10.5) K/mm3 RBC 5.00 (4.1-5.4) M/mm3 Hgb 12.9 (12.0-16.0) gm/dl Hct 42.5 (35-47) % MCV 85.0 (78-100) fl MCH 25.8 L (26-32) pg MCHC 30.4 L (32-36) g/dl RDW 18.3 H (11.5-14.0) % Plt Count 302 (150-450) K/mm3 MPV 11.4 H (7.5-11.0) fl Gran % 81.9 H (36.0-66.0) % Eos # (Auto) 0.11 (0-0.5) Absolute Lymphs (auto) 0.84 L (1.0-4.6) Absolute Monos (auto) 0.80 (0.0-1.3) Lymphocytes % 8.6 L (24.0-44.0) % Monocytes % 8.2 (0.0-12.0) % Eosinophils % 1.1 (0.00-5.0) % Basophils % 0.2 (0.0-0.4) % Absolute Granulocytes 7.96 H (1.4-6.9) Basophils # 0.02 (0-0.4) Sodium 134 L (137-145) mmol/L Potassium 3.3 L (3.5-5.1) mmol/L Chloride 105 (98-107) mmol/L Carbon Dioxide 17 L (22-30) mmol/L Anion Gap 15.8 H (5-15) MEQ/L BUN 12 (7-17) mg/dL Creatinine 0.66 (0.52-1.04) mg/dL Estimated GFR > 60.0 ML/MIN Glucose 291 H (74-106) mg/dL Calcium 8.8 (8.4-10.2) mg/dL Total Bilirubin 0.40 (0.2-1.3) mg/dL AST 24 (14-36) U/L ALT 22 (0-35) U/L Alkaline Phosphatase 103 (38-126) U/L Serum Total Protein 6.4 (6.3-8.2) g/dL Albumin 3.4 L (3.5-5.0) g/dL - Progress Progress: improved Progress Note: 06/30/21 20:13 BP decreased before discharge Counseled pt/family regarding: lab results, diagnosis, need for follow-up - Departure Departure Disposition: Home Clinical Impression: Candidiasis of genitalia Condition: Stable Critical Care Time: No Referrals: CALVIN HOLGUIN [Primary Care Provider] - Instructions: Yeast Infection ([place]) Additional Instructions: Keep area dry When you get out of bath/shower, use a hair rooting machine operator to get affected areas completely dry Use Nystatin cream twice a day to affected area Diflucan once a day for 5 days Follow up with Dr. Holguin in 2-3 days Take your insulin when you get home Return to ER as needed Prescriptions: Fluconazole [Diflucan] 150 mg PO DAILY #5 tablet Nystatin Cream 30 gm [Nystop 30 gm Cream] 30 gm TP BID #30 gm
[2021-06-30 07:54] LABS: Absolute Neutrophil Ct (ANC) 7.96 (1.4-6.9); BASOPHIL % 0.2 % (0.0-0.4); Basophil (Absolute #) 0.02 (0-0.4); Eosinophil % 1.1 % (0.00-5.0); Eosinophil (Absolute #) 0.11 (0-0.5); Hematocrit 42.5 % (35-47); Hemoglobin 12.9 gm/dl (12.0-16.0); Lymphocyte (Absolute #) 0.84 (1.0-4.6); Lymphocytes % 8.6 % (24.0-44.0); Mean Corpuscular Hemoglobin 25.8 pg (26-32); Mean Corpuscular Hgb Concent. 30.4 g/dl (32-36); Mean Platelet Volume 11.4 fl (7.5-11.0); Monocytes % 8.2 % (0.0-12.0); Neutrophil % 81.9 % (36.0-66.0); Platelet Count 302 K/mm3 (150-450); Red Cell Distribution Width 18.3 % (11.5-14.0); White Blood Count 9.7 K/mm3 (4.0-10.5)
[2021-06-30 08:10] LABS: ALBUMIN 3.4 g/dL (3.5-5.0); ALKALINE PHOSPHATASE 103 U/L (38-126); ANION GAP 15.8 MEQ/L (5-15); BLOOD UREA NITROGEN 12 mg/dL (7-17); CHLORIDE 105 mmol/L (98-107); Calcium 8.8 mg/dL (8.4-10.2); Carbon Dioxide 17 mmol/L (22-30); Creatinine 1 0.66 mg/dL (0.52-1.04); EST GLOMERULAR FILTRATION RATE > 60.0 ML/MIN; Glucose 291 mg/dL (74-106); Potassium 3.3 mmol/L (3.5-5.1); SGOT/AST 24 U/L (14-36); SODIUM 134 mmol/L (137-145); Total Protein 6.4 g/dL (6.3-8.2)
[2021-06-30 08:15] LABS: SGPT/ALT 22 U/L (0-35)
[2021-06-30 08:33] VITALS: BP 134/79; PULSE 110
== END 2021-06-30 08:45 | disposition home or self-care (01) ==
LOC: ED 07:09
DX: B37.89 Other sites of candidiasis (principal); I25.10 Atherosclerotic heart disease of native coronary artery without angina pectoris; E78.00 Pure hypercholesterolemia, unspecified; I10 Essential (primary) hypertension; I25.2 Old myocardial infarction; E11.9 Type 2 diabetes mellitus without complications; Z79.899 Other long term (current) drug therapy
CPT/HCPCS: 36415; 80053; 85025; 99283

== ENCOUNTER 2021-07-02 03:26 | Inpatient (IN) | payer MEDICARE ==
[2021-07-02] MEDS ORDERED: Zofran 4 MG/2 ML VIAL IV ONE (04:08)
[2021-07-02] MEDS ORDERED: Hydromorphone 1 mg/ml Injection IV ONE (04:08)
[2021-07-02] MEDS ORDERED: Sodium Chloride 0.9% 1000 ML 1,000 ML IV STA (04:08)
[2021-07-02] MEDS ORDERED: solu-MEDROL 125 MG, Sterile H2O 10 ml 2 ML IV ONE ×2 (04:11)
[2021-07-02] MEDS ORDERED: Sterile H2O 10 ml IJ ONE (04:18)
[2021-07-02] MEDS ORDERED: Zofran 4 MG/2 ML VIAL ONE (04:18)
[2021-07-02] MEDS ORDERED: Hydromorphone 1 mg/ml Injection ONE (04:18)
[2021-07-02] MEDS ORDERED: solu-MEDROL ONE (04:18)
[2021-07-02] MEDS ORDERED: Sodium Chloride 0.9% 1000 ML 1,000 ML ONE (04:18)
[2021-07-02 04:35] LABS: Absolute Neutrophil Ct (ANC) 6.03 (1.4-6.9); BASOPHIL % 0.2 % (0.0-0.4); Basophil (Absolute #) 0.02 (0-0.4); Eosinophil % 2.5 % (0.00-5.0); Hematocrit 38.4 % (35-47); Hemoglobin 11.7 gm/dl (12.0-16.0); Lymphocyte (Absolute #) 1.13 (1.0-4.6); Mean Cell Volume 84.4 fl (78-100); Mean Corpuscular Hemoglobin 25.7 pg (26-32); Mean Corpuscular Hgb Concent. 30.5 g/dl (32-36); Mean Platelet Volume 12.1 fl (7.5-11.0); Monocyte (Absolute #) 0.69 (0.0-1.3); Monocytes % 8.6 % (0.0-12.0); Neutrophil % 74.7 % (36.0-66.0); Platelet Count 211 K/mm3 (150-450); Red Blood Count 4.55 M/mm3 (4.1-5.4); Red Cell Distribution Width 17.7 % (11.5-14.0); White Blood Count 8.1 K/mm3 (4.0-10.5)
[2021-07-02 04:43] LABS: INR 1.13 (0.8-3.0); PROTIME 13.3 SECONDS (9.4-12.5)
[2021-07-02 04:48] LABS: ALBUMIN 3.2 g/dL (3.5-5.0); ALKALINE PHOSPHATASE 113 U/L (38-126); AMYLASE 38 U/L (30-110); ANION GAP 14.7 MEQ/L (5-15); BLOOD UREA NITROGEN 8 mg/dL (7-17); CHLORIDE 102 mmol/L (98-107); Calcium 8.5 mg/dL (8.4-10.2); Carbon Dioxide 20 mmol/L (22-30); Creatinine 1 0.59 mg/dL (0.52-1.04); EST GLOMERULAR FILTRATION RATE > 60.0 ML/MIN; Glucose 349 mg/dL (74-106); LIPASE 35 U/L (23-300); SGOT/AST 16 U/L (14-36); SGPT/ALT 17 U/L (0-35); SODIUM 133 mmol/L (137-145); Total Protein 6.1 g/dL (6.3-8.2)
--- NOTE | 2021-07-02 05:07 | ERPHSYRPT ---
- History of Present Illness Time Seen by Provider: 07/02/21 03:45 Historian: patient Exam Limitations: no limitations Patient Subjective Stated Complaint: pt states she has been having diarrhea for approx 1 month states she has been having blood in her stools for approx 1 week and tonight has been passing clots Triage Nursing Assessment: pt alert and oriented, answers questions approp. pt ambulatory with steady gait noted. pt short of breath with exertion- states is her normal. skin pink warm and dry. abd soft and nontender to light palpation. bowel sounds present x4 quads and hyper. Physician History: Patient is a 61-year-old female who has a diagnosis she states of Crohn's disease and ulcerative colitis. She says she has been having rectal bleeding primarily melena for 1 month but tonight she did experience some clots. She has been on tapering prednisone and she just finished some Flagyl. She denies any fever chills sweats nausea or vomiting she does have some diffuse abdominal pain. She had a CT 3 weeks ago which confirmed inflammation and the area between the transverse and the descending colon. Timing/Duration: week(s) (4) Activities at Onset: none Quality: cramping Abdominal Pain Onset Location: generalized abdomen Pain Radiation: no radiation Allergies/Adverse Reactions: cyclobenzaprine HCl [From Flexeril] Allergy (Mild, Verified 07/02/21 03:48) Rash metoclopramide [From Reglan] Allergy (Mild, Verified 07/02/21 03:48) Rash Sulfa (Sulfonamide Antibiotics) [Sulfa(Sulfonamide Antibiotics)] Allergy (Mild, Verified 07/02/21 03:48) Rash adhesive Allergy (Verified 07/02/21 03:48) Rash nalbuphine HCl [From Nubain] Adverse Reaction (Intermediate, Verified 07/02/21 03:48) Stomach Cramps patient states she had stomach "burning" and that her legs felt like "rubber bands" ciprofloxacin [From Cipro] Adverse Reaction (Mild, Verified 07/02/21 03:48) meperidine HCl [From Demerol] Adverse Reaction (Mild, Verified 07/02/21 03:48) Vomiting morphine Adverse Reaction (Verified 07/02/21 03:48) ADDICTION PT STATES SHE TOOK MORPHINE YEARS AGO AND IT WAS HARD TO GET OFF OF IT AND DOES NOT WANT IT Home Medications: Duloxetine HCl 60 mg PO DAILY 03/17/16 [History] Mesalamine [Pentasa] 500 mg PO BID 03/17/16 [History] Metformin HCl 1000 mg [Glucophage 1000 MG] 1,000 mg PO BID 03/17/16 [History] Methocarbamol 500 mg [Robaxin 500 MG] 1,000 mg PO QIDPRN PRN 03/17/16 [History] Omeprazole 20 MG [Prilosec 20 mg] 20 mg PO BID 03/17/16 [History] Atorvastatin Calcium 10 mg PO DAILY 01/25/18 [History] Insulin Glargine,Hum.rec.anlog [Basaglar Kwikpen U-100] 38 unit SQ HS 12/05/19 [History] Meclizine HCl 25 mg [Antivert 25 mg] 25 mg PO DAILY PRN 12/05/19 [History] Insulin Aspart [Novolog] 44 unit SQ AC 08/02/20 [History] Isosorbide Mononitrate 60 mg [Imdur 60MG] 120 mg PO DAILY 12/31/20 [History] Levothyroxine Sodium 25 Mcg [Synthroid 25 Mcg] 25 mcg PO DAILY 12/31/20 [History] Metoprolol Succinate 100 mg [Toprol Xl 100 MG] 100 mg PO DAILY 12/31/20 [History] Albuterol Sulfate [Albuterol Sulfate Hfa] 2 puffs IH Q4HPRN PRN 01/18/21 [History] PARoxetine HCl [Paxil] 10 mg PO DAILY 01/18/21 [History] L.acidoph,Paracasei, B.lactis [Probiotic] 1 cap PO DAILY 06/11/21 [History] Hx Tetanus, Diphtheria Vaccination/Date Given: No Hx Influenza Vaccination/Date Given: No Hx Pneumococcal Vaccination/Date Given: No Immunizations Up to Date: No Travel Risk - International Travel Have you traveled outside of the country in past 3 weeks: No - Coronavirus Screening Are you exhibiting any of the following symptoms?: No - Vaccine Status Have you recieved a Covid-19 vaccination: No - Past Medical History Pertinent Past Medical History: Yes Neurological History: Migraines ENT History: Cataracts Cardiac History: Coronary Artery Disease, High Cholesterol, Hypertension, Myocardial Infarction ([place]) Respiratory History: Asthma, Bronchitis, COPD, Sleep Apnea Endocrine Medical History: Diabetes Type II Musculoskeletal History: Arthritis, Degenerative Disk Disease, Fibromyalgia, Osteoarthritis GI Medical History: Crohns Disease, Diverticulitis, GERD History: No Pertinent History Psycho-Social History: Anxiety, Depression Female Reproductive Disorders: No Pertinent History Other Medical History: HX UTI, HX Yeast Infection, Neuropathy - Past Surgical History Past Surgical History: Yes Neuro Surgical History: No Pertinent History Cardiac: Cardiac Catheterization Respiratory: No Pertinent History Gastrointestinal: No Pertinent History Genitourinary: No Pertinent History Musculoskeletal: No Pertinent History Female Surgical History: Dilation & Curettage, Section, Tubal Ligation Other Surgical History: KIDNEY STONE REMOVAL. heart cath x3, no stents - Social History Smoking Status: Never smoker How long have you smoked: years Exposure to second hand smoke: No Alcohol Use: None Drug Use: none Patient Lives Alone: Yes Significant Family History: no pertinent family hx, diabetes, hypertension - Nursing Vital Signs Nursing Vital Signs: Initial Vital Signs Temperature 98.2 F 07/02/21 03:39 Pulse Rate 115 H 07/02/21 03:39 Respiratory Rate 24 07/02/21 03:39 Blood Pressure 182/103 07/02/21 03:39 O2 Sat by Pulse Oximetry 99 07/02/21 03:39 Pain Scale Pain Intensity 4 - Physical Exam General Appearance: mild distress, alert Eye Exam: PERRL/EOMI, eyes nml inspection Ears, Nose, Throat Exam: normal ENT inspection, pharynx normal, moist mucous membranes Neck Exam: normal inspection, non-tender, supple, full range of motion Respiratory Exam: normal breath sounds, lungs clear, No respiratory distress Cardiovascular Exam: regular rate/rhythm, normal heart sounds Gastrointestinal/Abdomen Exam: soft, normal bowel sounds, tenderness, guarding, No mass Back Exam: normal inspection, normal range of motion, No CVA tenderness, No vertebral tenderness Extremity Exam: normal inspection, normal range of motion, pelvis stable Neurologic Exam: alert, oriented x 3, cooperative, normal mood/affect, nml cerebellar function, sensation nml, No motor deficits Skin Exam: normal color, warm, dry SpO2: 99 - Course Nursing assessment & vital signs reviewed: Yes EKG Interpreted by Me: RATE (102), Sinus Tach, NORMAL AXIS, Right [place] Deviation, Non-specific ST Changes, Other (Poor R wave progression) - Radiology Exams Chest X-ray Interpretation: Interpreted by me, Negative - CT Exams Chest CT Interpretation: Tele-radiologist Report Ordered Tests: Active Orders 24 hr Category Date Time Status EKG-ER Only STAT Care 07/02/21 04:08 Active IV Insertion STAT Care 07/02/21 04:08 Active ABDOMEN AND PELVIS W CONTRAST [CT] Stat Exams 07/02/21 04:51 Taken CHEST 1 VIEW (PORTABLE) Stat Exams 07/02/21 04:24 Taken AMYLASE Stat Lab 07/02/21 04:30 Completed CBC W DIFF Stat Lab 07/02/21 04:30 Completed CMP Stat Lab 07/02/21 04:30 Completed FECAL OCCULT BLOOD - SCREENING Stat Lab 07/02/21 04:30 Completed LIPASE Stat Lab 07/02/21 04:30 Completed Lactic Acid Stat Lab 07/02/21 04:28 Completed Lactic Acid Stat Lab 07/02/21 06:32 Received PROTIME WITH INR Stat Lab 07/02/21 04:30 Completed TROPONIN Q3H Lab 07/02/21 04:30 Completed TROPONIN Q3H Lab 07/02/21 07:15 Ordered TROPONIN Q3H Lab 07/02/21 10:15 Ordered TROPONIN Q3H Lab 07/02/21 13:15 Ordered TROPONIN Q3H Lab 07/02/21 16:15 Ordered UA W/RFX UR CULTURE Stat Lab 07/02/21 06:16 Ordered Medication Summary Discontinued Medications Generic Name Dose Route Start Last Admin Trade Name Freq PRN Reason Stop Dose Admin Methylprednisolone Sodium 0 mg 07/02/21 04:11 07/02/21 04:24 Succinate 125 mg/ Sterile IV 07/02/21 04:12 125 mg Water 2 ml STAT ONE Administration Hydromorphone HCl 1 mg 07/02/21 04:08 07/02/21 04:25 Hydromorphone 1 Mg/Ml Injection IV 07/02/21 04:09 1 mg STAT ONE Administration Hydromorphone HCl Confirm 07/02/21 04:18 Hydromorphone 1 Mg/Ml Injection Administered 07/02/21 04:19 Dose 1 mg .ROUTE .STK-MED ONE Sodium Chloride 1,000 mls @ 999 mls/hr 07/02/21 04:08 07/02/21 04:24 Sodium Chloride 0.9% 1000 Ml IV 07/02/21 05:08 999 mls/hr .Q1H1M STA Administration Sodium Chloride Confirm 07/02/21 04:18 Sodium Chloride 0.9% 1000 Ml Administered 07/02/21 04:19 Dose 1,000 mls @ ud .ROUTE .STK-MED ONE Methylprednisolone Sodium Succinate Confirm 07/02/21 04:18 Solu-Medrol Administered 07/02/21 04:19 Dose 125 mg .ROUTE .STK-MED ONE Ondansetron HCl 4 mg 07/02/21 04:08 07/02/21 04:24 Zofran 4 Mg/2 Ml Vial IV 07/02/21 04:09 4 mg STAT ONE Administration Ondansetron HCl Confirm 07/02/21 04:18 Zofran 4 Mg/2 Ml Vial Administered 07/02/21 04:19 Dose 4 mg .ROUTE .STK-MED ONE Potassium Bicarbonate 25 meq 07/02/21 05:08 07/02/21 05:10 K-Lyte 25 Meq PO 07/02/21 05:09 25 meq STAT ONE Administration Potassium Bicarbonate Confirm 07/02/21 05:09 K-Lyte 25 Meq Administered 07/02/21 05:10 Dose 25 meq .ROUTE .STK-MED ONE Sterile Water Confirm 07/02/21 04:18 Sterile H2o 10 Ml Administered 07/02/21 04:19 Dose 10 ml IJ .STK-MED ONE Lab/Rad Data: Laboratory Result Diagrams 07/02/21 04:30 07/02/21 04:30 Laboratory Results 07/02/21 07/02/21 07/02/21 Range/Units 04:30 04:30 04:30 WBC (4.0-10.5) K/mm3 RBC (4.1-5.4) M/mm3 Hgb (12.0-16.0) gm/dl Hct (35-47) % MCV (78-100) fl MCH (26-32) pg MCHC (32-36) g/dl RDW (11.5-14.0) % Plt Count (150-450) K/mm3 MPV (7.5-11.0) fl Gran % (36.0-66.0) % Eos # (Auto) (0-0.5) Absolute Lymphs (auto) (1.0-4.6) Absolute Monos (auto) (0.0-1.3) Lymphocytes % (24.0-44.0) % Monocytes % (0.0-12.0) % Eosinophils % (0.00-5.0) % Basophils % (0.0-0.4) % Absolute Granulocytes (1.4-6.9) Basophils # (0-0.4) PT 13.3 H (9.4-12.5) SECONDS INR 1.13 (0.8-3.0) Sodium 133 L (137-145) mmol/L Potassium 3.0 L* (3.5-5.1) mmol/L Chloride 102 (98-107) mmol/L Carbon Dioxide 20 L (22-30) mmol/L Anion Gap 14.7 (5-15) MEQ/L BUN 8 (7-17) mg/dL Creatinine 0.59 (0.52-1.04) mg/dL Estimated GFR > 60.0 ML/MIN Glucose 349 H (74-106) mg/dL Lactic Acid (0.4-2.0) Calcium 8.5 (8.4-10.2) mg/dL Total Bilirubin 0.50 (0.2-1.3) mg/dL AST 16 (14-36) U/L ALT 17 (0-35) U/L Alkaline Phosphatase 113 (38-126) U/L Troponin I < 0.012 (0.000-0.034) ng/mL Serum Total Protein 6.1 L (6.3-8.2) g/dL Albumin 3.2 L (3.5-5.0) g/dL Amylase 38 (30-110) U/L Lipase 35 (23-300) U/L Stool Occult Blood (NEGATIVE) 07/02/21 07/02/21 07/02/21 Range/Units 04:30 04:30 04:28 WBC 8.1 (4.0-10.5) K/mm3 RBC 4.55 (4.1-5.4) M/mm3 Hgb 11.7 L (12.0-16.0) gm/dl Hct 38.4 (35-47) % MCV 84.4 (78-100) fl MCH 25.7 L (26-32) pg MCHC 30.5 L (32-36) g/dl RDW 17.7 H (11.5-14.0) % Plt Count 211 (150-450) K/mm3 MPV 12.1 H (7.5-11.0) fl Gran % 74.7 H (36.0-66.0) % Eos # (Auto) 0.20 (0-0.5) Absolute Lymphs (auto) 1.13 (1.0-4.6) Absolute Monos (auto) 0.69 (0.0-1.3) Lymphocytes % 14.0 L (24.0-44.0) % Monocytes % 8.6 (0.0-12.0) % Eosinophils % 2.5 (0.00-5.0) % Basophils % 0.2 (0.0-0.4) % Absolute Granulocytes 6.03 (1.4-6.9) Basophils # 0.02 (0-0.4) PT (9.4-12.5) SECONDS INR (0.8-3.0) Sodium (137-145) mmol/L Potassium (3.5-5.1) mmol/L Chloride (98-107) mmol/L Carbon Dioxide (22-30) mmol/L Anion Gap (5-15) MEQ/L BUN (7-17) mg/dL Creatinine (0.52-1.04) mg/dL Estimated GFR ML/MIN Glucose (74-106) mg/dL Lactic Acid 2.9 H (0.4-2.0) Calcium (8.4-10.2) mg/dL Total Bilirubin (0.2-1.3) mg/dL AST (14-36) U/L ALT (0-35) U/L Alkaline Phosphatase (38-126) U/L Troponin I (0.000-0.034) ng/mL Serum Total Protein (6.3-8.2) g/dL Albumin (3.5-5.0) g/dL Amylase (30-110) U/L Lipase (23-300) U/L Stool Occult Blood POSITIVE A (NEGATIVE) - Progress Progress: unchanged - Departure Departure Disposition: In-patient Admission Clinical Impression: Inflammatory bowel disease, Pancolitis, Hyperglycemia due to type 2 diabetes mellitus Condition: Fair Critical Care Time: No Referrals: CALVIN PALOMINO [Primary Care Provider] -
[2021-07-02] MEDS ORDERED: K-LYTE 25 MEQ PO ONE (05:08)
[2021-07-02] MEDS ORDERED: K-LYTE 25 MEQ ONE (05:09)
[2021-07-02 06:19] LABS: 027 TOX PROD PRESUMPTIVE NEGATIVE (NEGATIVE); TOXIGENIC C. DIFF ORG NEGATIVE (NEGATIVE)
[2021-07-02] MEDS ORDERED: Zofran 4 MG/2 ML VIAL IV PRN (06:39)
[2021-07-02 06:44] LABS: Appearance SLIGHTLY CLOUDY (CLEAR); Bacteria MODERATE /HPF (NEGATIVE); Bilirubin NEGATIVE (NEGATIVE); Blood MODERATE Ery/ul (0-5); Epithelial Cells FEW /HPF (FEW); Glucose >=500 mg/dL (NEGATIVE); Ketones NEGATIVE (NEGATIVE); Leukocyte Esterase LARGE (NEGATIVE); Mucus SLIGHT /HPF (NEGATIVE); Nitrite POSITIVE (NEGATIVE); Protein,Urine Dip 30 (Negative); Specific Gravity >1.060 (1.005-1.025); Urobilinogen NEGATIVE mg/dL (0-1)
[2021-07-02] MEDS ORDERED: Zosyn 3.375 GM Vial IV ONE (07:19)
[2021-07-02] MEDS ORDERED: Sodium Chloride 100ML MINI-BAG PLUS 100 ML IV ONE (07:19)
[2021-07-02] MEDS: Zosyn 3.375 GM Vial 3.375 GM in Sodium Chloride 100ML MINI-BAG PLUS 100 ML IV SCH ×4 (07:23→23:16)
[2021-07-02] MEDS: Sodium Chloride 0.9% 1000 ML 1,000 ML IV SCH ×2 (09:48→21:11)
[2021-07-02] MEDS: HOLD METFORMIN PRODUCTS FOR 48 HOURS MC SCH (09:48)
[2021-07-02] MEDS ORDERED: PROTONIX 40 MG IV IV SCH (10:00)
[2021-07-02] MEDS ORDERED: NON-FORMULARY ITEM (Sumatriptan Succinate [Imitrex 50 Mg] 50 MG) PO PRN (12:04)
[2021-07-02] MEDS ORDERED: ANTIVERT 25 MG PO PRN (12:04)
[2021-07-02] MEDS ORDERED: Ventolin Hfa MDI IH PRN (12:04)
[2021-07-02] MEDS ORDERED: Robaxin 500 MG PO PRN ×2 (12:04→12:14)
[2021-07-02] MEDS ORDERED: VENTOLIN COMMON CANISTER IH PRN (12:15)
[2021-07-02] MEDS: SYNTHROID 25 MCG PO SCH (13:13)
[2021-07-02] MEDS: Imdur 60MG PO SCH (13:13)
[2021-07-02] MEDS: DIFLUCAN PO SCH (13:14)
[2021-07-02] MEDS: Toprol Xl 100 MG PO SCH (13:14)
[2021-07-02] MEDS ORDERED: MEDICATION INTERVENTION MC SCH ×2 (13:15)
[2021-07-02] MEDS: solu-MEDROL 125 MG, Sterile H2O 10 ml 2 ML IV SCH ×6 (13:15→23:16)
[2021-07-02] MEDS: HUMALOG SQ PRN ×2 (13:24→17:24)
[2021-07-02] MEDS: Zocor 10MG PO SCH (13:28)
[2021-07-02] MEDS: Acidophilus TABLET PO SCH (13:29)
[2021-07-02] MEDS: Cymbalta 30 MG Capsule PO SCH (13:29)
[2021-07-02] MEDS: Protonix 40MG Tablet PO SCH (13:30)
[2021-07-02] MEDS: Voltaren GEL TP SCH ×2 (14:23→21:13)
[2021-07-02] MEDS: Hydromorphone 1 mg/ml Injection IV PRN ×2 (15:44→23:58)
[2021-07-02] MEDS ORDERED: INSULIN ASPART SQ SCH (16:30)
[2021-07-02] MEDS: HUMALOG SQ SCH (16:38)
--- NOTE | 2021-07-02 19:47 | XRAY ---
Exam: AP portable chest film from 07/02/2021. Comparison: AP portable chest film from 06/10/2021. Indication: Abdominal pain; bleed. Findings: The film was obtained in a lordotic projection. The transverse heart size is within normal limits for this AP portable technique. Mild vascular calcification within the aortic arch and mild tortuosity of both the ascending and descending thoracic aorta are again seen. The remainder of the boby and mediastinal structures appears unremarkable. The lungs are again mildly hypoinflated with minimal elevation/eventration of the right hemidiaphragm. No air space infiltrates, vascular congestion, pneumothorax, or pleural fluid is seen. Mild osteoarthritic spurring/degenerative changes seen involving both acromioclavicular joints. There is a small apparent spur along the inferior medial margin of the left humeral head. Some hypertrophic degenerative change is seen at the superior lateral margin of each humeral head. Impression: 1. Mildly hypoinflated chest with minimal elevation/eventration of the right hemidiaphragm. No acute cardiopulmonary disease is seen.
--- NOTE | 2021-07-02 20:26 | XRAY ---
Exam: CT of the abdomen and pelvis with IV contrast from 07/02/2021. Total exam DLP: 3372.46 mGy-cm Comparison: CT of the abdomen and pelvis without IV contrast from 06/17/2021. Indication: 61-year-old female with left upper quadrant abdominal pain with diarrhea and blood in stool. Pain is becoming worse. Previous information sheet stated Crohn's disease, ulcerative colitis. Correlate clinically. Technique: Post-IV contrast axial images were obtained through the abdomen and pelvis during automated injection of 80 cc of Isovue-370 contrast material. Reconstructed coronal and sagittal images were created and reviewed. Delayed axial images were obtained as well. Findings: The visualized lung bases reveal minimal posterior bibasilar atelectasis. The transverse heart size is normal. Mild left coronary artery vascular calcification is seen. The liver appears of unremarkable size. No focal hepatic mass or intrahepatic biliary duct distention is seen. The gallbladder is mildly distended and is remarkable for minimal cholelithiasis or sludge within the posterior dependent aspect. No gallbladder wall thickening is seen. No extrahepatic biliary duct distention is seen. The spleen is of normal size and reveals no mass. Both the pancreas and adrenal glands appear unremarkable. The kidneys are of unremarkable size. No renal calculi or hydronephrosis is seen. There is a 3.9 cm oval-shaped cyst at the lateral aspect of the upper pole of the left kidney. There is a 1.5 cm oval cyst at the inferior pole of the right kidney. Both kidneys function on delay images. No solid renal mass is seen. A mildly tortuous and calcified abdominal aorta is seen. No abdominal aortic aneurysm or abnormal retroperitoneal lymphadenopathy is seen. Some vascular calcification is also seen within the iliac arteries. I see no free intraperitoneal air or bowel containing ventral hernia. There is a small fat-containing umbilical hernia measuring about 2.3 cm in width. The bowel gas pattern is abnormal. There is a loss of haustral folds within the transverse colon. In addition, I note diffuse colonic bowel wall thickening, most pronounced within the splenic flexure and descending colon. Some pericolonic fat stranding is seen. The findings are consistent with extensive colitis. Correlate clinically regarding inflammatory bowel disease. Infectious colitis would be another possibility. The small bowel appears unremarkable. There is no free intraperitoneal fluid. I see no findings of appendicitis within the right lower quadrant. There is abundant intraperitoneal fat. The uterus is mildly anteflexed. The urinary bladder is mildly distended and appears grossly unremarkable. No other pelvic mass or abnormal pelvic lymphadenopathy is seen. Mild colon wall thickening is seen within the sigmoid colon, although I believe there is some sparing of the rectum. A fat-containing left inguinal hernia is seen. The skeleton reveals no acute fracture or aggressive bone lesion. Mild lower thoracic spondylosis is seen. I note findings consistent with mild degenerative disc disease at both L3-L4 and L5-S1. Small anterior lateral vertebral endplate spurs are seen within the lumbar spine. Moderate left L4-L5 facet joint osteoarthritic spurring is seen. I also note mild bilateral facet joint arthropathy at L5-S1. Impression: 1. Abnormal bowel gas pattern most consistent with pancolitis with relative sparing of the rectum. Colitis is most pronounced within the splenic flexure and descending colon. No abscess is seen. 2 major considerations include inflammatory bowel disease versus infectious colitis. Correlate clinically. 2. Mildly dilated gallbladder with the suggestion of minimal cholelithiasis versus sludge at the posterior dependent aspect of the gallbladder lumen. No biliary duct distention is seen. 3. I see a cyst within each kidney, as discussed above. 4. No free intraperitoneal air or free intraperitoneal fluid is seen. No other acute intraperitoneal process is seen. 5. Small fat-containing umbilical hernia and mild fat-containing left inguinal hernia. 6. Spine findings, as discussed above.
[2021-07-02] MEDS: NYSTOP 30 GM CREAM TP SCH (21:13)
[2021-07-02] MEDS ORDERED: NON-FORMULARY ITEM (Metformin Hcl 1000 Mg [Glucophage 1000 Mg] 1,000 MG) PO SCH (22:00)
[2021-07-02] MEDS ORDERED: MESALAMINE 500 MG PO SCH (22:00)
[2021-07-02] MEDS ORDERED: INSULIN GLARGINE HUM REC ANLOG 38 UNIT SQ SCH (22:00)
[2021-07-02] MEDS ORDERED: Lantus Insulin SQ SCH (22:00)
[2021-07-02] MEDS ORDERED: NON-FORMULARY ITEM (Omeprazole 20 Mg [Prilosec 20 Mg] 20 MG) PO SCH (22:00)
[2021-07-03] MEDS: Zosyn 3.375 GM Vial 3.375 GM in Sodium Chloride 100ML MINI-BAG PLUS 100 ML IV SCH ×3 (05:06→17:13)
[2021-07-03] MEDS: solu-MEDROL 125 MG, Sterile H2O 10 ml 2 ML IV SCH ×8 (05:07→23:26)
[2021-07-03] MEDS: Sodium Chloride 0.9% 1000 ML 1,000 ML IV SCH ×3 (05:23→19:39)
[2021-07-03 05:42] LABS: Absolute Neutrophil Ct (ANC) 7.56 (1.4-6.9); BASOPHIL % 0.1 % (0.0-0.4); Basophil (Absolute #) 0.01 (0-0.4); Eosinophil (Absolute #) 0 (0-0.5); Hematocrit 35.6 % (35-47); Hemoglobin 10.7 gm/dl (12.0-16.0); Lymphocyte (Absolute #) 0.53 (1.0-4.6); Lymphocytes % 6.4 % (24.0-44.0); Mean Cell Volume 85.2 fl (78-100); Mean Corpuscular Hemoglobin 25.6 pg (26-32); Mean Corpuscular Hgb Concent. 30.1 g/dl (32-36); Mean Platelet Volume 11.3 fl (7.5-11.0); Monocyte (Absolute #) 0.22 (0.0-1.3); Monocytes % 2.6 % (0.0-12.0); Neutrophil % 90.9 % (36.0-66.0); Platelet Count 307 K/mm3 (150-450); Red Blood Count 4.18 M/mm3 (4.1-5.4); Red Cell Distribution Width 18.1 % (11.5-14.0); White Blood Count 8.3 K/mm3 (4.0-10.5)
[2021-07-03 06:05] LABS: ALBUMIN 3.2 g/dL (3.5-5.0); ALKALINE PHOSPHATASE 100 U/L (38-126); ANION GAP 15.5 MEQ/L (5-15); BLOOD UREA NITROGEN 14 mg/dL (7-17); CHLORIDE 103 mmol/L (98-107); Calcium 8.2 mg/dL (8.4-10.2); Carbon Dioxide 20 mmol/L (22-30); Creatinine 1 0.71 mg/dL (0.52-1.04); EST GLOMERULAR FILTRATION RATE > 60.0 ML/MIN; Glucose 328 mg/dL (74-106); Potassium 3.6 mmol/L (3.5-5.1); SGOT/AST 16 U/L (14-36); SGPT/ALT 16 U/L (0-35); SODIUM 135 mmol/L (137-145); Total Protein 6.2 g/dL (6.3-8.2)
[2021-07-03 06:46] LABS: Slide Review 1 YES
[2021-07-03] MEDS: HUMALOG SQ SCH ×3 (08:50→17:13)
[2021-07-03] MEDS: Paxil 20 MG PO SCH (09:44)
[2021-07-03] MEDS: Zocor 10MG PO SCH (09:44)
[2021-07-03] MEDS: Imdur 60MG PO SCH (09:44)
[2021-07-03] MEDS: Cymbalta 30 MG Capsule PO SCH (09:44)
[2021-07-03] MEDS: Acidophilus TABLET PO SCH (09:44)
[2021-07-03] MEDS: SYNTHROID 25 MCG PO SCH (09:44)
[2021-07-03] MEDS: Protonix 40MG Tablet PO SCH (09:44)
[2021-07-03] MEDS: DIFLUCAN PO SCH (09:45)
[2021-07-03] MEDS: Toprol Xl 100 MG PO SCH (09:46)
[2021-07-03] MEDS: HOLD METFORMIN PRODUCTS FOR 48 HOURS MC SCH (09:47)
[2021-07-03] MEDS: NYSTOP 30 GM CREAM TP SCH ×2 (09:47→21:49)
[2021-07-03] MEDS: Voltaren GEL TP SCH ×3 (09:48→21:49)
[2021-07-03] MEDS ORDERED: NON-FORMULARY ITEM (Duloxetine Hcl [Duloxetine Hcl] 60 MG) PO SCH (10:00)
[2021-07-03] MEDS ORDERED: NON-FORMULARY ITEM (L.Acidoph,Paracasei, B.Lactis [Probiotic] 1 CAP) PO SCH (10:00)
[2021-07-03] MEDS ORDERED: NON-FORMULARY ITEM (Paroxetine Hcl [Paxil] 10 MG) PO SCH (10:00)
--- NOTE | 2021-07-03 10:24 | HP ---
CHIEF COMPLAINT: Diarrhea with blood in the stool. HISTORY OF PRESENT ILLNESS: The patient is a 61 year-old white female who presents for the above complaints. The patient noticed she has been increasing problems over the past two to three days and noticed she began passing blood clots. The patient presented to the emergency room for evaluation and management. The patient has known history of ulcerative colitis which she has had for years and has endoscopic evaluations with biopsies on a regular basis looking for dysplasia. She is due to have another one soon which we will do after the patient's acute care is taken care of. PAST MEDICAL/SURGICAL HISTORY: Otherwise significant for diabetes mellitus type II. She has gastroesophageal reflux disease symptoms as well. She is on thyroid medication, blood pressure medicine and depression medications. HOME MEDICATIONS: Included duloxetine 60 mg a day, Pentasa 500 mg twice a day, Metformin 1,000 mg twice a day, Robaxin 500 mg four times a day PRN for back pain, omeprazole 20 mg twice a day, atorvastatin 10 mg a day. She takes Basaglar 38 units in the evening, meclizine 25 mg t.i.d. PRN for dizziness, NovoLog insulin 44 units subcu a.c., isosorbide 60 mg tablet two tablets a day, levothyroxine 25 mcg daily, Toprol XL 100 mg daily, Albuterol PRN, paroxetine 10 mg a day, Probiotic. ALLERGIES: SULFA. FLEXERIL. REGLAN. NUBAIN. CIPRO. DERMOL. MORPHINE (The patient reports that the morphine was more of an addiction issue and she did not want to get back on it as it was hard to get off). ADHESIVE TAPE. PHYSICAL EXAMINATION: The patient's vital signs on admission showed her temperature to be 98.2F, pulse 115, respiratory rate 24 and blood pressure 182/103. O2 saturation 99%. HEENT: Normocephalic, atraumatic. Pupils equal round reactive to light. Extraocular movements intact. Oropharynx is slightly dry. NECK: Supple without lymphadenopathy, thyromegaly or JVD. CHEST: Clear to auscultation. HEART: Regular rate and rhythm without murmurs, rubs or gallops. ABDOMEN: Soft but diffusely tender. No palpable masses are felt. EXTREMITIES: Without cyanosis, clubbing or edema. NEUROLOGIC: The patient is alert and oriented x3. LAB DATA AND TESTS: LABS: UA with specific gravity 1.060, large leukocytes, positive for nitrite with 11-15 white blood cells per high power field. Her troponin was less than 0.012. Lactic acid 1.2. INR 1.13. She had a fecal occult blood test which was positive. Her initial lactic acid was 2.9. White count 8.1 with hemoglobin 11.7, PLT count 211,000. Her glucose nonfasting was 349, BUN 8, creatinine 0.59. Sodium was slightly low at 133, potassium low at 3.0. Her liver enzymes were normal. Amylase and lipase were normal. COVID test was negative. RADIOLOGIC: She had x-rays including chest x-ray showing mild hypo-inflated chest, elevation of the right hemidiaphragm. No cardiopulmonary disease was noted. CT scan of the abdomen revealed abnormal bowel gas pattern consistent with pancolitis, relative sparing of the rectum. Colitis is most pronounced in the splenic flexure and descending colon. No abscess is seen. She had a mildly dilated gallbladder suggestion of minimal cholelithiasis versus sludge. No free intraperitoneal air or fluid. Small fat-containing umbilical hernia and left inguinal hernia. ASSESSMENT: A patient with exacerbation of her ulcerative colitis having hematochezia. The patient has been admitted for IV fluids, IV steroids of Solu-Medrol 125 mg every six hours. She will be placed on high dose sliding scale coverage due to her propensity to have elevated sugars without steroids and this will certainly make her sugars go up. The patient otherwise is placed on compression dressings on her legs to prevent deep vein thrombosis as we do not want to give her any blood thinners at the present time with the bleeding in the bowel. The patient otherwise is currently stable.
[2021-07-03] MEDS: FLAGYL 500 MG IVPB 500 MG/100 ML BAG IV SCH ×3 (11:54→23:30)
[2021-07-03 13:37] LABS: Adenovirus F 40/41 NEGATIVE (NEGATIVE); Astrovirus NEGATIVE (NEGATIVE); C. Difficile Organism NEGATIVE (NEGATIVE); Campylobacter NEGATIVE (NEGATIVE); Cryptosporidium NEGATIVE (NEGATIVE); Cyclospora cayentanensis NEGATIVE (NEGATIVE); Entamoeaba histolytica NEGATIVE (NEGATIVE); Enteroaggregative E.coli NEGATIVE (NEGATIVE); Enteropathogenic E.coli NEGATIVE (NEGATIVE); Enterotoxigenic E.coli NEGATIVE (NEGATIVE); Giardia lamblia NEGATIVE (NEGATIVE); Plesiomonas shigelloides NEGATIVE (NEGATIVE); Salmonella NEGATIVE (NEGATIVE); Shiga-like toxin prod.E.coli NEGATIVE (NEGATIVE); Vibrio NEGATIVE (NEGATIVE); Vibrio cholerae NEGATIVE (NEGATIVE); Yersinia enterocolitica NEGATIVE (NEGATIVE)
[2021-07-03 13:38] LABS: Norovirus GI/GII NEGATIVE (NEGATIVE); Rotavirus A NEGATIVE (NEGATIVE); Sapovirus NEGATIVE (NEGATIVE)
[2021-07-03] MEDS: Hydromorphone 1 mg/ml Injection IV PRN (19:48)
[2021-07-03] MEDS: Lantus Insulin SQ SCH (21:49)
[2021-07-03] MEDS: HUMALOG SQ PRN (21:50)
[2021-07-04] MEDS: Zosyn 3.375 GM Vial 3.375 GM in Sodium Chloride 100ML MINI-BAG PLUS 100 ML IV SCH ×4 (00:25→17:49)
[2021-07-04] MEDS: Hydromorphone 1 mg/ml Injection IV PRN ×4 (01:14→19:46)
[2021-07-04] MEDS: solu-MEDROL 125 MG, Sterile H2O 10 ml 2 ML IV SCH ×2 (05:00)
[2021-07-04] MEDS: FLAGYL 500 MG IVPB 500 MG/100 ML BAG IV SCH ×3 (05:01→17:14)
[2021-07-04 05:42] LABS: Absolute Neutrophil Ct (ANC) 4.76 (1.4-6.9); Basophil (Absolute #) 0 (0-0.4); Eosinophil (Absolute #) 0 (0-0.5); Hematocrit 36.6 % (35-47); Hemoglobin 10.6 gm/dl (12.0-16.0); Lymphocyte (Absolute #) 0.38 (1.0-4.6); Lymphocytes % 7.1 % (24.0-44.0); Mean Cell Volume 89.3 fl (78-100); Mean Corpuscular Hemoglobin 25.9 pg (26-32); Mean Platelet Volume 11.2 fl (7.5-11.0); Monocyte (Absolute #) 0.24 (0.0-1.3); Monocytes % 4.5 % (0.0-12.0); Neutrophil % 88.4 % (36.0-66.0); Platelet Count 241 K/mm3 (150-450); Red Cell Distribution Width 18.6 % (11.5-14.0); White Blood Count 5.4 K/mm3 (4.0-10.5)
[2021-07-04 05:50] LABS: ALBUMIN 3.1 g/dL (3.5-5.0); ALKALINE PHOSPHATASE 136 U/L (38-126); ANION GAP 11.9 MEQ/L (5-15); BLOOD UREA NITROGEN 19 mg/dL (7-17); CHLORIDE 105 mmol/L (98-107); Carbon Dioxide 20 mmol/L (22-30); Creatinine 1 0.85 mg/dL (0.52-1.04); EST GLOMERULAR FILTRATION RATE > 60.0 ML/MIN; Glucose 270 mg/dL (74-106); Potassium 4.4 mmol/L (3.5-5.1); SGOT/AST 46 U/L (14-36); SGPT/ALT 20 U/L (0-35); SODIUM 133 mmol/L (137-145)
[2021-07-04] MEDS: HUMALOG SQ SCH ×3 (08:03→17:13)
[2021-07-04 08:20] LABS: Slide Review 1 YES
[2021-07-04] MEDS ORDERED: DIFLUCAN PO ONE (08:30)
[2021-07-04] MEDS: Paxil 20 MG PO SCH (09:23)
[2021-07-04] MEDS: Cymbalta 30 MG Capsule PO SCH (09:24)
[2021-07-04] MEDS: Imdur 60MG PO SCH (09:25)
[2021-07-04] MEDS: DIFLUCAN PO SCH (09:25)
[2021-07-04] MEDS: SYNTHROID 25 MCG PO SCH (09:25)
[2021-07-04] MEDS: Voltaren GEL TP SCH ×3 (09:25→22:09)
[2021-07-04] MEDS: Protonix 40MG Tablet PO SCH (09:25)
[2021-07-04] MEDS: Zocor 10MG PO SCH (09:25)
[2021-07-04] MEDS: Toprol Xl 100 MG PO SCH (09:25)
[2021-07-04] MEDS: Acidophilus TABLET PO SCH (09:25)
[2021-07-04] MEDS: NYSTOP 30 GM CREAM TP SCH ×2 (09:26→22:08)
[2021-07-04] MEDS: solu-MEDROL 60 MG, Sterile H2O 10 ml 2 ML IV SCH ×4 (13:16→22:05)
[2021-07-04] MEDS: Lantus Insulin SQ SCH (22:07)
[2021-07-05] MEDS: Hydromorphone 1 mg/ml Injection IV PRN ×5 (00:21→21:54)
[2021-07-05] MEDS: FLAGYL 500 MG IVPB 500 MG/100 ML BAG IV SCH ×4 (00:22→18:56)
[2021-07-05] MEDS: Zosyn 3.375 GM Vial 3.375 GM in Sodium Chloride 100ML MINI-BAG PLUS 100 ML IV SCH ×5 (01:07→23:52)
[2021-07-05] MEDS: solu-MEDROL 60 MG, Sterile H2O 10 ml 2 ML IV SCH ×6 (05:35→21:33)
[2021-07-05 06:36] LABS: BASOPHIL % 0.2 % (0.0-0.4); Basophil (Absolute #) 0.01 (0-0.4); Eosinophil (Absolute #) 0 (0-0.5); Hematocrit 34.8 % (35-47); Hemoglobin 10.2 gm/dl (12.0-16.0); Lymphocytes % 4.7 % (24.0-44.0); Mean Cell Volume 87.7 fl (78-100); Mean Corpuscular Hemoglobin 25.7 pg (26-32); Mean Corpuscular Hgb Concent. 29.3 g/dl (32-36); Mean Platelet Volume 11.9 fl (7.5-11.0); Monocyte (Absolute #) 0.32 (0.0-1.3); Monocytes % 5.1 % (0.0-12.0); Platelet Count 239 K/mm3 (150-450); Red Blood Count 3.97 M/mm3 (4.1-5.4); Red Cell Distribution Width 18.3 % (11.5-14.0); White Blood Count 6.3 K/mm3 (4.0-10.5)
[2021-07-05 06:46] LABS: ALBUMIN 3.1 g/dL (3.5-5.0); ALKALINE PHOSPHATASE 155 U/L (38-126); ANION GAP 14.9 MEQ/L (5-15); BLOOD UREA NITROGEN 19 mg/dL (7-17); CHLORIDE 105 mmol/L (98-107); Calcium 8.3 mg/dL (8.4-10.2); Carbon Dioxide 21 mmol/L (22-30); Creatinine 1 0.83 mg/dL (0.52-1.04); EST GLOMERULAR FILTRATION RATE > 60.0 ML/MIN; Glucose 173 mg/dL (74-106); Potassium 4.1 mmol/L (3.5-5.1); SGOT/AST 54 U/L (14-36); SGPT/ALT 34 U/L (0-35); SODIUM 137 mmol/L (137-145); Total Protein 6.1 g/dL (6.3-8.2)
[2021-07-05] MEDS: HUMALOG SQ SCH ×3 (07:36→18:05)
[2021-07-05] MEDS: HUMALOG SQ PRN ×2 (07:37→20:56)
[2021-07-05 08:39] LABS: Slide Review 1 YES
[2021-07-05] MEDS: Acidophilus TABLET PO SCH (09:08)
[2021-07-05] MEDS: Cymbalta 30 MG Capsule PO SCH (09:08)
[2021-07-05] MEDS: NYSTOP 30 GM CREAM TP SCH ×2 (09:09→21:41)
[2021-07-05] MEDS: DIFLUCAN PO SCH (09:10)
[2021-07-05] MEDS: Imdur 60MG PO SCH (09:11)
[2021-07-05] MEDS: Protonix 40MG Tablet PO SCH (09:11)
[2021-07-05] MEDS: Toprol Xl 100 MG PO SCH (09:11)
[2021-07-05] MEDS: SYNTHROID 25 MCG PO SCH (09:11)
[2021-07-05] MEDS: Zocor 10MG PO SCH (09:12)
[2021-07-05] MEDS: Paxil 20 MG PO SCH (09:12)
[2021-07-05] MEDS: Sodium Chloride 0.9% 1000 ML 1,000 ML IV SCH ×2 (09:16→18:14)
[2021-07-05] MEDS: Voltaren GEL TP SCH ×3 (18:06→21:48)
[2021-07-05] MEDS: Lantus Insulin SQ SCH (21:34)
[2021-07-06] MEDS: FLAGYL 500 MG IVPB 500 MG/100 ML BAG IV SCH ×2 (00:40→06:30)
[2021-07-06] MEDS: Hydromorphone 1 mg/ml Injection IV PRN ×2 (02:08→05:47)
[2021-07-06] MEDS: Sodium Chloride 0.9% 1000 ML 1,000 ML IV SCH (02:09)
[2021-07-06] MEDS: Zosyn 3.375 GM Vial 3.375 GM in Sodium Chloride 100ML MINI-BAG PLUS 100 ML IV SCH (05:46)
[2021-07-06] MEDS: solu-MEDROL 60 MG, Sterile H2O 10 ml 2 ML IV SCH ×2 (05:47)
[2021-07-06] MEDS: HUMALOG SQ SCH ×3 (08:27→16:54)
[2021-07-06] MEDS ORDERED: NORCO 5/325 MG PO PRN (09:14)
[2021-07-06] MEDS ORDERED: ZOFRAN ODT 4 MG PO PRN (09:18)
[2021-07-06] MEDS: DELTASONE 20 MG PO SCH (10:05)
[2021-07-06] MEDS: SYNTHROID 25 MCG PO SCH (10:05)
[2021-07-06] MEDS: Cymbalta 30 MG Capsule PO SCH (10:05)
[2021-07-06] MEDS: Zocor 10MG PO SCH (10:05)
[2021-07-06] MEDS: Flagyl 500 MG PO SCH ×3 (10:05→21:30)
[2021-07-06] MEDS: Toprol Xl 100 MG PO SCH (10:05)
[2021-07-06] MEDS: Acidophilus TABLET PO SCH (10:05)
[2021-07-06] MEDS: Imdur 60MG PO SCH (10:05)
[2021-07-06] MEDS: Paxil 20 MG PO SCH (10:06)
[2021-07-06] MEDS: Protonix 40MG Tablet PO SCH (10:06)
[2021-07-06] MEDS: Augmentin 875-125 Tablet PO SCH ×2 (10:06→21:30)
[2021-07-06] MEDS: DIFLUCAN PO SCH (10:07)
[2021-07-06] MEDS: Voltaren GEL TP SCH ×3 (10:07→21:30)
[2021-07-06] MEDS: NYSTOP 30 GM CREAM TP SCH ×2 (10:08→21:26)
[2021-07-06] MEDS: HYDROCODONE-ACETAMIN 10-325 MG PO PRN ×2 (13:26→23:29)
[2021-07-06] MEDS: HUMALOG SQ PRN (21:27)
[2021-07-06] MEDS: Lantus Insulin SQ SCH (21:29)
[2021-07-07] MEDS: HYDROCODONE-ACETAMIN 10-325 MG PO PRN (05:18)
[2021-07-07 05:55] LABS: Hematocrit 37.8 % (35-47); Hemoglobin 11.3 gm/dl (12.0-16.0); Mean Cell Volume 86.3 fl (78-100); Mean Corpuscular Hemoglobin 25.8 pg (26-32); Mean Corpuscular Hgb Concent. 29.9 g/dl (32-36); Mean Platelet Volume 11.5 fl (7.5-11.0); Platelet Count 200 K/mm3 (150-450); Red Blood Count 4.38 M/mm3 (4.1-5.4); Red Cell Distribution Width 18.2 % (11.5-14.0); White Blood Count 8.5 K/mm3 (4.0-10.5)
[2021-07-07 06:08] LABS: ALKALINE PHOSPHATASE 145 U/L (38-126); ANION GAP 12.4 MEQ/L (5-15); BLOOD UREA NITROGEN 18 mg/dL (7-17); CHLORIDE 105 mmol/L (98-107); Calcium 8.5 mg/dL (8.4-10.2); Carbon Dioxide 24 mmol/L (22-30); Creatinine 1 0.83 mg/dL (0.52-1.04); EST GLOMERULAR FILTRATION RATE > 60.0 ML/MIN; Glucose 190 mg/dL (74-106); Potassium 3.8 mmol/L (3.5-5.1); SGOT/AST 28 U/L (14-36); SGPT/ALT 40 U/L (0-35); SODIUM 138 mmol/L (137-145); Total Protein 5.7 g/dL (6.3-8.2)
[2021-07-07 07:17] VITALS: BP 191/100; PULSE 66; O2SAT 97
[2021-07-07] MEDS: HUMALOG SQ SCH (08:23)
[2021-07-07] MEDS: Protonix 40MG Tablet PO SCH (09:35)
[2021-07-07] MEDS: Toprol Xl 100 MG PO SCH (09:35)
[2021-07-07] MEDS: Cymbalta 30 MG Capsule PO SCH (09:35)
[2021-07-07] MEDS: Paxil 20 MG PO SCH (09:36)
[2021-07-07] MEDS: SYNTHROID 25 MCG PO SCH (09:36)
[2021-07-07] MEDS: Flagyl 500 MG PO SCH (09:37)
[2021-07-07] MEDS: Acidophilus TABLET PO SCH (09:37)
[2021-07-07] MEDS: Zocor 10MG PO SCH (09:37)
[2021-07-07] MEDS: DELTASONE 20 MG PO SCH (09:37)
[2021-07-07] MEDS: Imdur 60MG PO SCH (09:45)
[2021-07-07] MEDS: Augmentin 875-125 Tablet PO SCH (09:51)
[2021-07-07] MEDS: NYSTOP 30 GM CREAM TP SCH (09:52)
[2021-07-07] MEDS: DIFLUCAN PO SCH (09:52)
[2021-07-07] MEDS: Voltaren GEL TP SCH (09:53)
--- NOTE | 2021-07-10 13:59 | DS ---
DISCHARGE DIAGNOSIS: 1. EXACERBATION OF ULCERATIVE COLITIS. 2. RECTAL BLEEDING. BRIEF HISTORY: The patient is a 61 y/o WF with a long history of ulcerative colitis. Reported she had increasing stools and blood in the stools was noted. She was also complaining of pain through her abdomen. She was brought in to the hospital and treated with IV steroid medications and IV antibiotics. The patient was placed on Dilaudid for pain control. Each morning I saw her she reported that the stools were better, but still had some mucus and blood in it occasionally. The patient is up and moving well. She is concerned about going back home presently due to no money and food insecurity. She reports that Joshua, her son, may be able to help her with this until she gets pain on Wednesday and be able to get her medication. We will discharge the patient home with home health care. Discharge Planning will see the patient in regards to the possible help with her food insecurity issue. She will be sent home on Prednisone 60 mg q d for 5 days and I will see her in 3 days in the office. She will also be on Augmentin and Flagyl for control of any infectious process. Otherwise, the patient is known to be diabetic, but her sugars have been reasonable despite the high dose steroids with the fasting blood sugar this morning at 190. BUN was 18, creatinine 0.83. Electrolytes were essentially normal. Her protein is somewhat low. Hgb was 11.3, WBC 8500, platelet count 200,000. She did also have a urinary tract infection which is sensitive to pretty much everything. The urinary tract infection grew Klebsiella pneumoniae and Citrobacter freundii. The patient was instructed to come back to the hospital if she felt like things were getting any worse. We will send her home on some [place] for pain control for a few more days, but will get her off as soon as we can due to her previous history of narcotic addiction.
== END 2021-07-07 10:00 | disposition home or self-care (01) | DRG 386 ==
LOC: ED 03:26 → MED SURG 09:25 → OBSVTOIN 09:25
PROVIDERS: ADMIT Family Medicine; ATTEND Family Medicine
DX: K51.90 Ulcerative colitis, unspecified, without complications (principal); K62.5 Hemorrhage of anus and rectum; N39.0 Urinary tract infection, site not specified; E11.9 Type 2 diabetes mellitus without complications; R10.84 Generalized abdominal pain; Z79.899 Other long term (current) drug therapy; J44.9 Chronic obstructive pulmonary disease, unspecified; I10 Essential (primary) hypertension; E78.00 Pure hypercholesterolemia, unspecified; G47.30 Sleep apnea, unspecified; Z20.822 Contact with and (suspected) exposure to COVID-19
CPT/HCPCS: 0097U; 36000; 36415; 71045; 74177; 80053; 81001; 82150; 82947; 83605; 83690; 84484; 85025; 85027; 85610; 87077; 87086; 87186; 87493; 93005; 94760; 96360; 96365; 96374; 96375; 99283; 99285; G0328; U0003; 82274; J1170; J1817; J2405; J2930; A9270-GY

== ENCOUNTER 2021-07-24 05:45 | Emergency (ER) | payer MEDICARE ==
--- NOTE | 2021-07-24 06:57 | ERPHSYRPT ---
- History of Present Illness Historian: patient Exam Limitations: no limitations Patient Subjective Stated Complaint: bleeding from my rectum Triage Nursing Assessment: pt c/o rectal bleeding x2 this morning, last time at 0400. Pt states, "moderate amount of mostly bright red blood". Abd lg, obese with active bs x4 quad, tender on palpation. Lungs clear. Pt was admitted x6 days here at [facility] on 07/02/21 for same thing. Pt is scheduled for colonoscopy on 07/28/[address] Palomino. Timing/Duration: yesterday (1), gradual onset, worse Activities at Onset: rest Quality: cramping, sharpness Abdominal Pain Onset Location: [facility] Severity of Pain-Max: moderate Severity of Pain-Current: moderate Modifying Factors: Improves With: nothing Previous symptoms: same symptoms as today Hx Tetanus, Diphtheria Vaccination/Date Given: No Hx Influenza Vaccination/Date Given: No Hx Pneumococcal Vaccination/Date Given: No Immunizations Up to Date: No <TIM SANDERS - Last Filed: 07/24/21 07:02> <JASON WHITING - Last Filed: 07/24/21 16:17> - History of Present Illness Time Seen by Provider: 07/24/21 06:36 Physician History: 61 years old morbidly obese female presented to ER with chief complaint of hematochezia x2 since yesterday. Patient does have history of Crohn's/ulcerative colitis with a recent CAT scan showing pancolitis. Patient reports bright red blood moderate in amount last night and this morning with associated increasing pain in the left upper quadrant. Patient is scheduled to have colonoscopy on 18 of this month. Recently finished a course of steroid and antibiotics. Feels weak fatigued and tired. No fever or chills reported. (TIM SANDERS) Allergies/Adverse Reactions: cyclobenzaprine HCl [From Flexeril] Allergy (Mild, Verified 07/24/21 06:05) Rash metoclopramide [From Reglan] Allergy (Mild, Verified 07/24/21 06:05) Rash Sulfa (Sulfonamide Antibiotics) [Sulfa(Sulfonamide Antibiotics)] Allergy (Mild, Verified 07/24/21 06:05) Rash adhesive Allergy (Verified 07/24/21 06:05) Rash nalbuphine HCl [From Nubain] Adverse Reaction (Intermediate, Verified 07/24/21 06:05) Stomach Cramps patient states she had stomach "burning" and that her legs felt like "rubber bands" ciprofloxacin [From Cipro] Adverse Reaction (Mild, Verified 07/24/21 06:05) Rash meperidine HCl [From Demerol] Adverse Reaction (Mild, Verified 07/24/21 06:05) Vomiting morphine Adverse Reaction (Verified 07/24/21 06:05) ADDICTION PT STATES SHE TOOK MORPHINE YEARS AGO AND IT WAS HARD TO GET OFF OF IT AND DOES NOT WANT IT Home Medications: Duloxetine HCl 60 mg PO DAILY 03/17/16 [History] Mesalamine [Pentasa] 500 mg PO BID 03/17/16 [History] Metformin HCl 1000 mg [Glucophage 1000 MG] 1,000 mg PO BID 03/17/16 [History] Methocarbamol 500 mg [Robaxin 500 MG] 1,000 mg PO QIDPRN PRN 03/17/16 [History] Omeprazole 20 MG [Prilosec 20 mg] 20 mg PO BID 03/17/16 [History] Atorvastatin Calcium 10 mg PO DAILY 01/25/18 [History] Insulin Glargine,Hum.rec.anlog [Basaglar Kwikpen U-100] 38 unit SQ HS 12/05/19 [ History] Meclizine HCl 25 mg [Antivert 25 mg] 25 mg PO DAILY PRN 12/05/19 [History] Insulin Aspart [Novolog] 44 unit SQ AC 08/02/20 [History] Isosorbide Mononitrate 60 mg [Imdur 60MG] 120 mg PO DAILY 12/31/20 [History] Levothyroxine Sodium 25 Mcg [Synthroid 25 Mcg] 25 mcg PO DAILY 12/31/20 [History] Metoprolol Succinate 100 mg [Toprol Xl 100 MG] 100 mg PO DAILY 12/31/20 [History] Albuterol Sulfate [Albuterol Sulfate Hfa] 2 puffs IH Q4HPRN PRN 01/18/21 [History] PARoxetine HCl [Paxil] 10 mg PO DAILY 01/18/21 [History] L.acidoph,Paracasei, B.lactis [Probiotic] 1 cap PO DAILY 06/11/21 [History] Travel Risk - International Travel Have you traveled outside of the country in past 3 weeks: No - Coronavirus Screening Are you exhibiting any of the following symptoms?: Yes Symptoms: Shortness of Breath, Vomiting/Diarrhea, Headaches/Body Aches/Fatigue Close contact with a COVID-19 positive Pt in past 14-21 Days: No - Vaccine Status Have you recieved a Covid-19 vaccination: No <TIM SANDERS - Last Filed: 07/24/21 07:02> - Review of Systems Constitutional: Fatigue, Weakness Eyes: No Symptoms Ears, Nose, & Throat: No Symptoms Respiratory: No Symptoms Cardiac: No Symptoms Abdominal/Gastrointestinal: Abdominal Pain, Hematochezia Genitourinary Symptoms: No Symptoms Musculoskeletal: Back Pain Skin: No Symptoms Neurological: No Symptoms Psychological: No Symptoms Hematologic/Lymphatic: No Symptoms Immunological/Allergic: No Symptoms (Gag) <TIM SANDERS - Last Filed: 07/24/21 07:02> - Past Medical History Pertinent Past Medical History: Yes Neurological History: Migraines ENT History: Cataracts Cardiac History: Coronary Artery Disease, High Cholesterol, Hypertension, 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[place]) Respiratory History: Asthma, Bronchitis, COPD, Sleep Apnea Endocrine Medical History: Diabetes Type II Musculoskeletal History: Arthritis, Degenerative Disk Disease, Fibromyalgia, Osteoarthritis GI Medical History: Crohns Disease, Diverticulitis, GERD, Irritable Bowel History: No Pertinent History Psycho-Social History: Anxiety, Depression Female Reproductive Disorders: No Pertinent History Other Medical History: HX UTI, HX Yeast Infection, Neuropathy - Past Surgical History Past Surgical History: Yes Neuro Surgical History: No Pertinent History Cardiac: Cardiac Catheterization Respiratory: No Pertinent History Gastrointestinal: No Pertinent History Genitourinary: No Pertinent History Musculoskeletal: No Pertinent History Female Surgical History: Dilation & Curettage, Section, Tubal Ligation Other Surgical History: KIDNEY STONE REMOVAL. heart cath x3, no stents - Social History Smoking Status: Never smoker How long have you smoked: years Exposure to second hand smoke: No Alcohol Use: None Drug Use: none Patient Lives Alone: Yes Significant Family History: no pertinent family hx, diabetes, hypertension - Female History Hx Now: No <TIM SANDERS - Last Filed: 07/24/21 07:02> - Physical Exam General Appearance: no apparent distress, alert Eye Exam: PERRL/EOMI, eyes nml inspection Ears, Nose, Throat Exam: normal ENT inspection, pharynx normal Neck Exam: normal inspection, non-tender, supple, full range of motion Respiratory Exam: normal breath sounds, lungs clear Cardiovascular Exam: regular rate/rhythm, normal heart sounds, tachycardia Gastrointestinal/Abdomen Exam: soft, normal bowel sounds, tenderness (LUQ) Back Exam: normal inspection, normal range of motion Extremity Exam: normal inspection, normal range of motion Neurologic Exam: alert, oriented x 3, cooperative Skin Exam: normal color SpO2 Interpretation: normal SpO2: 95 O2 Delivery: Room Air <TIM SANDERS - Last Filed: 07/24/21 07:02> - Nursing Vital Signs Nursing Vital Signs: Initial Vital Signs Temperature 98.5 F 07/24/21 05:52 Pulse Rate 110 H 07/24/21 05:52 Respiratory Rate 26 H 07/24/21 05:52 Blood Pressure 204/125 07/24/21 05:52 O2 Sat by Pulse Oximetry 95 07/24/21 05:52 Pain Scale Pain Intensity 0 - Course Nursing assessment & vital signs reviewed: Yes - CT Exams Abdomen/Pelvis CT Interpretation: Tele-radiologist Report (Very minimal residual versus recurrent descending colitis. Stable minimal gallbladder sludge/gravel, bilateral renal cyst and chronic bony findings. Remaining CT abdomen pelvis with contrast exam is negative) <JASON WHITING - Last Filed: 07/24/21 16:17> Ordered Tests: Active Orders 24 hr Category Date Time Status ABDOMEN AND PELVIS W CONTRAST [CT] Stat Exams 07/24/21 09:33 Completed CBC W DIFF Stat Lab 07/24/21 06:09 Completed CMP Stat Lab 07/24/21 06:09 Completed CMP Stat Lab 07/24/21 14:55 Completed CULTURE,URINE Stat Lab 07/24/21 10:21 Received LIPASE Stat Lab 07/24/21 06:09 Completed Manual Differential NC Stat Lab 07/24/21 06:09 Completed POCT GLUCOSE Stat Lab 07/24/21 12:26 Completed UA W/RFX UR CULTURE Stat Lab 07/24/21 10:21 Completed Medication Summary Discontinued Medications Generic Name Dose Route Start Last Admin Trade Name Freq PRN Reason Stop Dose Admin Sodium Chloride 1,000 mls @ 999 mls/hr 07/24/21 10:36 07/24/21 12:03 Sodium Chloride 0.9% 1000 Ml IV 07/24/21 11:36 Infused .Q1H1M STA Infusion Sodium Chloride Confirm 07/24/21 10:47 Sodium Chloride 0.9% 1000 Ml Administered 07/24/21 10:48 Dose 1,000 mls @ ud .ROUTE .STK-MED ONE Ceftriaxone Sodium/Dextrose 1 g in 50 mls @ 100 mls/hr 07/24/21 14:49 07/24/21 15:41 Rocephin 1 Gm-D5w 50 Ml Bag IV 07/24/21 15:18 Infused STAT STA Infusion Ceftriaxone Sodium/Dextrose Confirm 07/24/21 14:52 Rocephin 2 Gm-D5w 50ml Bag Administered 07/24/21 14:53 Dose 2 g in 50 mls @ ud IV .STK-MED ONE Ceftriaxone Sodium/Dextrose Confirm 07/24/21 14:53 Rocephin 1 Gm-D5w 50 Ml Bag Administered 07/24/21 14:54 Dose 1 g in 50 mls @ ud IV .STK-MED ONE Insulin Human Regular 8 unit 07/24/21 10:35 07/24/21 10:58 Insulin Regular, Human 1 Unit SQ 07/24/21 10:36 8 unit STAT ONE Administration Insulin Human Regular Confirm 07/24/21 10:57 Insulin Regular, Human 1 Unit Administered 07/24/21 10:58 Dose 8 unit .ROUTE .STK-MED ONE Lab/Rad Data: Laboratory Result Diagrams 07/24/21 06:09 07/24/21 14:55 Laboratory Results 07/24/21 07/24/21 07/24/21 Range/Units 14:55 12:26 10:21 WBC (4.0-10.5) K/mm3 RBC (4.1-5.4) M/mm3 Hgb (12.0-16.0) gm/dl Hct (35-47) % MCV (78-100) fl MCH (26-32) pg MCHC (32-36) g/dl RDW (11.5-14.0) % Plt Count (150-450) K/mm3 MPV (7.5-11.0) fl Segmented Neutrophils (36.0-66.0) % Lymphocytes (Manual) (24-44) % Monocytes (Manual) (0.0-12.0) % Eosinophils (Manual) (0.00-3.0) % Platelet Estimate (NORMAL) RBC Morphology Anisocytosis Microcytosis Sodium 135 L (137-145) mmol/L Potassium 4.1 (3.5-5.1) mmol/L Chloride 101 (98-107) mmol/L Carbon Dioxide 26 (22-30) mmol/L Anion Gap 12.2 (5-15) MEQ/L BUN 11 (7-17) mg/dL Creatinine 0.58 (0.52-1.04) mg/dL Estimated GFR > 60.0 ML/MIN Glucose 309 H (74-106) mg/dL POC Glucometer 368 H (74 to 106) mg/dL Calcium 9.0 (8.4-10.2) mg/dL Total Bilirubin 0.60 (0.2-1.3) mg/dL AST 59 H (14-36) U/L ALT 74 H (0-35) U/L Alkaline Phosphatase 400 H (38-126) U/L Serum Total Protein 6.6 (6.3-8.2) g/dL Albumin 3.4 L (3.5-5.0) g/dL Lipase (23-300) U/L Urine Color YELLOW (YELLOW) Urine Appearance CLEAR (CLEAR) Urine pH 6.0 (5-6) Ur Specific Rena Lara 1.028 (1.005-1.025) Urine Protein NEGATIVE (Negative) Urine Ketones NEGATIVE (NEGATIVE) Urine Blood SMALL (0-5) Jeff/ul Urine Nitrite POSITIVE (NEGATIVE) Urine Bilirubin NEGATIVE (NEGATIVE) Urine Urobilinogen NEGATIVE (0-1) mg/dL Ur Leukocyte Esterase NEGATIVE (NEGATIVE) Urine WBC (Auto) 3-5 (0-5) /HPF Urine RBC (Auto) NONE (0-2) /HPF U Epithel Cells (Auto) NONE (FEW) /HPF Urine Bacteria (Auto) FEW (NEGATIVE) /HPF Urine Culture Reflexed YES (NO) Urine Glucose >=500 (NEGATIVE) mg/dL 07/24/21 07/24/21 Range/Units 06:09 06:09 WBC 4.7 (4.0-10.5) K/mm3 RBC 4.31 (4.1-5.4) M/mm3 Hgb 11.4 L (12.0-16.0) gm/dl Hct 38.0 (35-47) % MCV 88.2 (78-100) fl MCH 26.5 (26-32) pg MCHC 30.0 L (32-36) g/dl RDW 19.1 H (11.5-14.0) % Plt Count 226 (150-450) K/mm3 MPV 13.7 H (7.5-11.0) fl Segmented Neutrophils 70 H (36.0-66.0) % Lymphocytes (Manual) 23 L (24-44) % Monocytes (Manual) 4 (0.0-12.0) % Eosinophils (Manual) 3 (0.00-3.0) % Platelet Estimate NORMAL (NORMAL) RBC Morphology ABNORMAL Anisocytosis 1+ Microcytosis 1+ Sodium 133 L (137-145) mmol/L Potassium 4.5 (3.5-5.1) mmol/L Chloride 98 (98-107) mmol/L Carbon Dioxide 21 L (22-30) mmol/L Anion Gap 19.2 H (5-15) MEQ/L BUN 16 (7-17) mg/dL Creatinine 0.62 (0.52-1.04) mg/dL Estimated GFR > 60.0 ML/MIN Glucose 594 H* (74-106) mg/dL POC Glucometer (74 to 106) mg/dL Calcium 9.5 (8.4-10.2) mg/dL Total Bilirubin 0.50 (0.2-1.3) mg/dL AST 104 H (14-36) U/L ALT 90 H (0-35) U/L Alkaline Phosphatase 472 H (38-126) U/L Serum Total Protein 7.1 (6.3-8.2) g/dL Albumin 3.8 (3.5-5.0) g/dL Lipase 155 (23-300) U/L Urine Color (YELLOW) Urine Appearance (CLEAR) Urine pH (5-6) Ur Specific Rena Lara (1.005-1.025) Urine Protein (Negative) Urine Ketones (NEGATIVE) Urine Blood (0-5) Jeff/ul Urine Nitrite (NEGATIVE) Urine Bilirubin (NEGATIVE) Urine Urobilinogen (0-1) mg/dL Ur Leukocyte Esterase (NEGATIVE) Urine WBC (Auto) (0-5) /HPF Urine RBC (Auto) (0-2) /HPF U Epithel Cells (Auto) (FEW) /HPF Urine Bacteria (Auto) (NEGATIVE) /HPF Urine Culture Reflexed (NO) Urine Glucose (NEGATIVE) mg/dL - Progress Progress: unchanged <TIM SANDERS - Last Filed: 07/24/21 07:02> - Progress Progress: improved Counseled pt/family regarding: lab results, diagnosis, need for follow-up, rad results <JASON WHITING - Last Filed: 07/24/21 16:17> - Progress Progress Note: 07/24/21 07:03 Care is transferred to Dr. Whiting at shift change with pending work-up. (TIM SANDERS) Patient endorsed to Dr. Whiting at approximately [address] Whiting advised to follow- up on pending labs and imaging studies. Patient reassessed. No rectal bleeding in our ED. Rectal area was evaluated with RN. Patient has multiple external hemorrhoids. It is likely the bleeding is coming from dislocation. Patient has no abdominal pain at this time. CT scan reveals resolving colitis as compared to CT performed in June. Laboratory work-up revealed hyperglycemia with a anion gap acidosis. Patient received 8 units of regular insulin subcu as well as IV fluids. Repeat labs were obtained. Anion gap closed. Hyperglycemia improved. Patient feels well. Patient is ready for discharge. Will discharge at this time. 07/24/21 16:06 07/24/21 16:10 Patient has urinary tract infection. We will treat with ciprofloxacin. Patient will be given a prescription for Flagyl as well as there is some evidence of colitis this is unclear if this is resolving colitis or new developing colitis. Patient agrees to follow-up with primary care doctor within 48 hours for reevaluation. She voices no other complaints concerns at this time. 07/24/21 16:15 Patient requesting discharge as she has to take care of her grandson tomorrow. 07/24/21 16:16 Patient currently scheduled to undergo a colonoscopy on 07/28/2021. (JASON WHITING) <TIM SANDERS - Last Filed: 07/24/21 07:02> - Departure Departure Disposition: Home Critical Care Time: No <JASON WHITING - Last Filed: 07/24/21 16:17> - Departure Clinical Impression: Resolving colitis, Gallbladder sludge, Bilateral renal cysts, Arthritis of spine, UTI (urinary tract infection), Bleeding external hemorrhoids Condition: Stable Referrals: CALVIN PALOMNIO [Primary Care Provider] - Additional Instructions: Discharge/Care Plan ENRICO SMALWLOOD was seen on 07/24/21 in the Emergency Room. The patient was counseled regarding Diagnosis,Lab results, Imaging studies, need for follow up and when to return to the Emergency Room. Prescriptions given: Discharge Note I have spoken with the patient and/or caregivers. I have explained the patient's condition, diagnosis and treatment plan based on the information available to me at this time. I have answered the patient's and/or caregiver's questions and addressed any concerns. The patient and/or caregivers have as good understanding of the patient's diagnosis, condition and treatment plan as can be expected at this point. The vital signs have been stable. The patient's condition is stable and appropriate for discharge from the emergency department. The patient will pursue further outpatient evaluation with the primary care physician or other designated or consulting physician as outlined in the discharge instructions. The patient and/or caregivers are agreeable to this plan of care and follow-up instructions have been explained in detail. The patient and/or caregivers have received these instruction. The patient/and or caregivers are aware that any significant change in condition or worsening of symptoms should prompt an immediate return to this or the closest emergency department or call 911. Prescriptions: Amox Tr/Potass Clav. 875 mg [Augmentin 875-125 Tablet] 1 each PO BID 7 Days #14 tablet
[2021-07-24 07:25] LABS: Hemoglobin 11.4 gm/dl (12.0-16.0); Mean Cell Volume 88.2 fl (78-100); Mean Corpuscular Hemoglobin 26.5 pg (26-32); Mean Platelet Volume 13.7 fl (7.5-11.0); Platelet Count 226 K/mm3 (150-450); Red Blood Count 4.31 M/mm3 (4.1-5.4); Red Cell Distribution Width 19.1 % (11.5-14.0); White Blood Count 4.7 K/mm3 (4.0-10.5)
[2021-07-24 08:21] LABS: ANISOCYTOSIS 1+; Eosinophil 3 % (0.00-3.0); Lymphocytes 23 % (24-44); Monocyte 4 % (0.0-12.0); Neutrophils 70 % (36.0-66.0); Total Cells Counted 100
[2021-07-24 08:22] LABS: Microcytosis 1+; Platelet Estimate NORMAL (NORMAL)
[2021-07-24 08:37] LABS: ALBUMIN 3.8 g/dL (3.5-5.0); ALKALINE PHOSPHATASE 472 U/L (38-126); ANION GAP 19.2 MEQ/L (5-15); BLOOD UREA NITROGEN 16 mg/dL (7-17); CHLORIDE 98 mmol/L (98-107); Calcium 9.5 mg/dL (8.4-10.2); Carbon Dioxide 21 mmol/L (22-30); Creatinine 1 0.62 mg/dL (0.52-1.04); EST GLOMERULAR FILTRATION RATE > 60.0 ML/MIN; LIPASE 155 U/L (23-300); Potassium 4.5 mmol/L (3.5-5.1); SGOT/AST 104 U/L (14-36); SGPT/ALT 90 U/L (0-35); SODIUM 133 mmol/L (137-145); Total Protein 7.1 g/dL (6.3-8.2)
[2021-07-24 08:51] LABS: Glucose 594 mg/dL (74-106)
--- NOTE | 2021-07-24 09:52 | XRAY ---
Indication: Diarrhea and blood in stool. Colitis. Multiple contiguous axial images obtained through the abdomen and pelvis using 80 cc Isovue 370 contrast. Comparison: July 02, 2021. Lung bases again demonstrates mild bibasilar dependent atelectasis. Heart not enlarged. Noncontrasted stomach and bowel loops nonobstructed with normal appendix. Previous colitis has markedly improved with very minimal pericolonic stranding mid descending colon, residual versus recurrent. No free fluid/air. Gallbladder again demonstrates minimal sludge/gravel in dependent portion. Stable bilateral renal cysts. Remaining liver, gallbladder, pancreas, spleen, adrenal glands, kidneys, ureters, bladder, and uterus are unremarkable. Stable minimal aortoiliac calcifications. No AAA or pathologic retroperitoneal lymphadenopathy. Osseous structures intact again with minimal degenerative changes throughout the spine. Impression: 1. Very minimal residual versus recurrent descending colitis. 2. Stable minimal gallbladder sludge/gravel, bilateral renal cysts, and chronic bony findings. 3. Remaining CT abdomen/pelvis with contrast exam is negative.
[2021-07-24] MEDS ORDERED: HUMULIN R SQ ONE (10:35)
[2021-07-24] MEDS ORDERED: Sodium Chloride 0.9% 1000 ML 1,000 ML IV STA (10:36)
[2021-07-24 10:41] LABS: Appearance CLEAR (CLEAR); Bacteria FEW /HPF (NEGATIVE); Bilirubin NEGATIVE (NEGATIVE); Blood SMALL Ery/ul (0-5); Glucose >=500 mg/dL (NEGATIVE); Ketones NEGATIVE (NEGATIVE); Leukocyte Esterase NEGATIVE (NEGATIVE); Nitrite POSITIVE (NEGATIVE); Protein,Urine Dip NEGATIVE (Negative); Specific Gravity 1.028 (1.005-1.025); Urobilinogen NEGATIVE mg/dL (0-1)
[2021-07-24] MEDS ORDERED: Sodium Chloride 0.9% 1000 ML 1,000 ML ONE (10:47)
[2021-07-24] MEDS ORDERED: HUMULIN R ONE (10:57)
[2021-07-24] MEDS ORDERED: ROCEPHIN 1 Gm-D5w 50 ml Bag** 1 G/50 ML IVPB IV STA (14:49)
[2021-07-24] MEDS ORDERED: ROCEPHIN 2 Gm-D5w 50ML BAG** 0 G/0 ML IVPB IV ONE (14:52)
[2021-07-24] MEDS ORDERED: ROCEPHIN 1 Gm-D5w 50 ml Bag** 1 G/50 ML IVPB IV ONE (14:53)
[2021-07-24 15:14] VITALS: BP 128/75; PULSE 92; O2SAT 98
[2021-07-24 15:16] LABS: ALBUMIN 3.4 g/dL (3.5-5.0); ALKALINE PHOSPHATASE 400 U/L (38-126); ANION GAP 12.2 MEQ/L (5-15); BLOOD UREA NITROGEN 11 mg/dL (7-17); CHLORIDE 101 mmol/L (98-107); Carbon Dioxide 26 mmol/L (22-30); Creatinine 1 0.58 mg/dL (0.52-1.04); EST GLOMERULAR FILTRATION RATE > 60.0 ML/MIN; Glucose 309 mg/dL (74-106); Potassium 4.1 mmol/L (3.5-5.1); SGOT/AST 59 U/L (14-36); SGPT/ALT 74 U/L (0-35); SODIUM 135 mmol/L (137-145); Total Protein 6.6 g/dL (6.3-8.2)
== END 2021-07-24 16:22 | disposition home or self-care (01) ==
LOC: ED 05:45
DX: K52.9 Noninfective gastroenteritis and colitis, unspecified (principal); K82.8 Other specified diseases of gallbladder; N28.1 Cyst of kidney, acquired; M47.9 Spondylosis, unspecified; N39.0 Urinary tract infection, site not specified; K64.8 Other hemorrhoids
CPT/HCPCS: 36415; 74177; 80053; 81001; 82947; 83690; 85025; 87077; 87086; 87186; 96360; 96365; 96372; 99284; J0696; J1815

== ENCOUNTER 2021-08-04 22:16 | Emergency (ER) | payer MEDICARE ==
--- NOTE | 2021-08-04 22:22 | ERPHSYRPT ---
- History of Present Illness Time Seen by Provider: 08/04/21 22:22 Source: patient Exam Limitations: no limitations Physician History: This is a 61-year-old obese white female patient of Dr. Holguin who presents with sudden onset of left facial numbness and weakness in her left upper extremity that has now completely resolved prior to arrival to the emergency department. Patient was brought to the emergency department via EMS. Patient's blood sugar upon arrival into the emergency department was 408. Patient is morbidly obese. She has a history of Crohn's disease, insulin-dependent diabetes, hypothyroidism, gastroesophageal reflux disease, hypertension, fibrom yalgia, sleep apnea, COPD, anxiety, depression, myocardial infarction and coronary artery disease. Patient denies shortness of breath. She denies chest pain. She does not have any abdominal pain. She has had no nausea vomiting or diarrhea. She has no history of TIAs or strokes in the past. Timing/Duration: today, hour(s) (1.5), resolved prior to arrival, sudden Severity: mild Associated Symptoms: denies symptoms Allergies/Adverse Reactions: cyclobenzaprine HCl [From Flexeril] Allergy (Mild, Verified 07/24/21 06:05) Rash metoclopramide [From Reglan] Allergy (Mild, Verified 07/24/21 06:05) Rash Sulfa (Sulfonamide Antibiotics) [Sulfa(Sulfonamide Antibiotics)] Allergy (Mild, Verified 07/24/21 06:05) Rash adhesive Allergy (Verified 07/24/21 06:05) Rash nalbuphine HCl [From Nubain] Adverse Reaction (Intermediate, Verified 07/24/21 06:05) Stomach Cramps patient states she had stomach "burning" and that her legs felt like "rubber bands" ciprofloxacin [From Cipro] Adverse Reaction (Mild, Verified 07/24/21 06:05) Rash meperidine HCl [From Demerol] Adverse Reaction (Mild, Verified 07/24/21 06:05) Vomiting morphine Adverse Reaction (Verified 07/24/21 06:05) ADDICTION PT STATES SHE TOOK MORPHINE YEARS AGO AND IT WAS HARD TO GET OFF OF IT AND DOES NOT WANT IT Home Medications: Duloxetine HCl 60 mg PO DAILY 03/17/16 [History] Mesalamine [Pentasa] 500 mg PO BID 03/17/16 [History] Metformin HCl 1000 mg [Glucophage 1000 MG] 1,000 mg PO BID 03/17/16 [History] Methocarbamol 500 mg [Robaxin 500 MG] 1,000 mg PO QIDPRN PRN 03/17/16 [History] Omeprazole 20 MG [Prilosec 20 mg] 20 mg PO BID 03/17/16 [History] Atorvastatin Calcium 10 mg PO DAILY 01/25/18 [History] Insulin Glargine,Hum.rec.anlog [Basaglar Kwikpen U-100] 38 unit SQ HS 12/05/19 [History] Meclizine HCl 25 mg [Antivert 25 mg] 25 mg PO DAILY PRN 12/05/19 [History] Insulin Aspart [Novolog] 44 unit SQ AC 08/02/20 [History] Isosorbide Mononitrate 60 mg [Imdur 60MG] 120 mg PO DAILY 12/31/20 [History] Levothyroxine Sodium 25 Mcg [Synthroid 25 Mcg] 25 mcg PO DAILY 12/31/20 [History] Metoprolol Succinate 100 mg [Toprol Xl 100 MG] 100 mg PO DAILY 12/31/20 [History] Albuterol Sulfate [Albuterol Sulfate Hfa] 2 puffs IH Q4HPRN PRN 01/18/21 [History] PARoxetine HCl [Paxil] 10 mg PO DAILY 01/18/21 [History] L.acidoph,Paracasei, B.lactis [Probiotic] 1 cap PO DAILY 06/11/21 [History] Hx Tetanus, Diphtheria Vaccination/Date Given: No Hx Influenza Vaccination/Date Given: No Hx Pneumococcal Vaccination/Date Given: No Travel Risk - International Travel Have you traveled outside of the country in past 3 weeks: No - Coronavirus Screening Are you exhibiting any of the following symptoms?: No Close contact with a COVID-19 positive Pt in past 14-21 Days: No - Vaccine Status Have you recieved a Covid-19 vaccination: No - Review of Systems Constitutional: No Symptoms Eyes: No Symptoms Ears, Nose, & Throat: No Symptoms Respiratory: No Symptoms Cardiac: No Symptoms Abdominal/Gastrointestinal: No Symptoms Genitourinary Symptoms: No Symptoms Musculoskeletal: No Symptoms Skin: No Symptoms Neurological: Parasthesia (Now resolved) Psychological: No Symptoms Endocrine: No Symptoms Hematologic/Lymphatic: No Symptoms Immunological/Allergic: No Symptoms All Other Systems: Reviewed and Negative - Past Medical History Pertinent Past Medical History: Yes Neurological History: Migraines ENT History: Cataracts Cardiac History: Coronary Artery Disease, High Cholesterol, Hypertension, Myocardial Infarction ([place]) Respiratory History: Asthma, Bronchitis, COPD, Sleep Apnea Endocrine Medical History: Diabetes Type II Musculoskeletal History: Arthritis, Degenerative Disk Disease, Fibromyalgia, Osteoarthritis GI Medical History: Crohns Disease, Diverticulitis, GERD, Irritable Bowel History: No Pertinent History Psycho-Social History: Anxiety, Depression Female Reproductive Disorders: No Pertinent History Other Medical History: HX UTI, HX Yeast Infection, Neuropathy - Past Surgical History Past Surgical History: Yes Neuro Surgical History: No Pertinent History Cardiac: Cardiac Catheterization Respiratory: No Pertinent History Gastrointestinal: No Pertinent History Genitourinary: No Pertinent History Musculoskeletal: No Pertinent History Female Surgical History: Dilation & Curettage, Section, Tubal Ligation Other Surgical History: KIDNEY STONE REMOVAL. heart cath x3, no stents - Social History Smoking Status: Never smoker How long have you smoked: years Exposure to second hand smoke: No Alcohol Use: None Drug Use: none Patient Lives Alone: Yes Significant Family History: no pertinent family hx, diabetes, hypertension - Nursing Vital Signs Nursing Vital Signs: Initial Vital Signs Temperature 97.8 F 08/04/21 22:24 Pulse Rate 98 H 08/04/21 22:24 Respiratory Rate 22 08/04/21 22:24 Blood Pressure 133/87 08/04/21 22:24 O2 Sat by Pulse Oximetry 99 08/04/21 22:24 Pain Scale Pain Intensity 3 - Physical Exam General Appearance: no apparent distress, alert, anxiety, obese Eye Exam: PERRL/EOMI, eyes nml inspection Ears, Nose, Throat Exam: normal ENT inspection, moist mucous membranes Neck Exam: normal inspection, non-tender, supple, full range of motion Respiratory Exam: normal breath sounds, lungs clear, airway intact, No chest tenderness, No respiratory distress Cardiovascular Exam: regular rate/rhythm, normal heart sounds, normal peripheral pulses Gastrointestinal/Abdomen Exam: soft, normal bowel sounds, No tenderness Pelvic Exam: not done Rectal Exam: not done Back Exam: normal inspection, normal range of motion, No CVA tenderness, No vertebral tenderness Extremity Exam: normal inspection, normal range of motion, pelvis stable Neurologic Exam: alert, oriented x 3, cooperative, rn labor and delivery II-XII nml as tested, normal mood/affect, nml cerebellar function, nml station & gait, sensation nml Skin Exam: normal color, warm, dry Lymphatic Exam: No adenopathy SpO2 Interpretation: normal O2 Delivery: Room Air - Course Nursing assessment & vital signs reviewed: Yes Ordered Tests: Active Orders 24 hr Category Date Time Status EKG-ER Only STAT Care 08/04/21 22:36 Active IV Insertion STAT Care 08/04/21 22:36 Active NPO (ED) STAT Care 08/04/21 22:36 Active Pulse Oximetry (ED) STAT Care 08/04/21 22:36 Active HEAD WITHOUT CONTRAST [CT] Stat Exams 08/04/21 22:23 Taken CBC W DIFF Stat Lab 08/04/21 22:45 Completed CMP Stat Lab 08/04/21 22:45 Completed CULTURE,URINE Stat Lab 08/04/21 22:54 Received Manual Differential NC Stat Lab 08/04/21 22:45 Completed POCT GLUCOSE Stat Lab 08/04/21 22:24 Completed PROTIME WITH INR Stat Lab 08/04/21 22:45 Completed T4 (Thyroxine) Stat Lab 08/04/21 22:45 Completed TSH, 3RD Generation Stat Lab 08/04/21 22:45 Completed UA W/RFX UR CULTURE Stat Lab 08/04/21 22:54 Completed Medication Summary Discontinued Medications Generic Name Dose Route Start Last Admin Trade Name Freq PRN Reason Stop Dose Admin Insulin Human Regular 6 unit 08/04/21 22:37 08/04/21 23:02 Insulin Regular, Human 1 Unit IV 08/04/21 22:38 6 unit STAT ONE Administration Insulin Human Regular Confirm 08/04/21 23:00 Insulin Regular, Human 1 Unit Administered 08/04/21 23:01 Dose 6 unit .[facility]TE [employer] Lab/Rad Data: Laboratory Result Diagrams 08/04/21 22:45 08/04/21 22:45 Laboratory Results 08/04/21 08/04/21 08/04/21 Range/Units 22:54 22:45 22:45 WBC (4.0-10.5) K/mm3 RBC (4.1-5.4) M/mm3 Hgb (12.0-16.0) gm/dl Hct (35-47) % MCV (78-100) fl MCH (26-32) pg MCHC (32-36) g/dl RDW (11.5-14.0) % Plt Count (150-450) K/mm3 MPV (7.5-11.0) fl Absolute Granulocytes (1.4-6.9) PT 12.4 (9.4-12.5) SECONDS INR 1.05 (0.8-3.0) Sodium 133 L (137-145) mmol/L Potassium 4.2 (3.5-5.1) mmol/L Chloride 101 (98-107) mmol/L Carbon Dioxide 20 L (22-30) mmol/L Anion Gap 16.9 H (5-15) MEQ/L BUN 14 (7-17) mg/dL Creatinine 0.58 (0.52-1.04) mg/dL Estimated GFR > 60.0 ML/MIN Glucose 407 H (74-106) mg/dL POC Glucometer (74 to 106) mg/dL Calcium 9.8 (8.4-10.2) mg/dL Total Bilirubin 0.40 (0.2-1.3) mg/dL AST 47 H (14-36) U/L ALT 41 H (0-35) U/L Alkaline Phosphatase 327 H (38-126) U/L Serum Total Protein 7.4 (6.3-8.2) g/dL Albumin 3.9 (3.5-5.0) g/dL Thyroxine (T4) 8.71 (5.53-10.96) ug/dL TSH 3rd Generation 1.920 (0.47-4.68) mIU/L Urine Color YELLOW (YELLOW) Urine Appearance SLIGHTLY CLOUDY (CLEAR) Urine pH 5.0 (5-6) Ur Specific [place] 1.026 (1.005-1.025) Urine Protein NEGATIVE (Negative) Urine Ketones NEGATIVE (NEGATIVE) Urine Blood MODERATE (0-5) Jeff/ul Urine Nitrite POSITIVE (NEGATIVE) Urine Bilirubin NEGATIVE (NEGATIVE) Urine Urobilinogen NEGATIVE (0-1) mg/dL Ur Leukocyte Esterase LARGE (NEGATIVE) Urine WBC (Auto) 16-25 (0-5) /HPF Urine RBC (Auto) 3-5 (0-2) /HPF U Hyaline Cast (Auto) 0-2 (0-2) /LPF U Epithel Cells (Auto) RARE (FEW) /HPF Urine Bacteria (Auto) FEW (NEGATIVE) /HPF Urine Mucus (Auto) SLIGHT (NEGATIVE) /HPF Urine Culture Reflexed YES (NO) Urine Glucose >=500 (NEGATIVE) mg/dL 08/04/21 08/04/21 Range/Units 22:45 22:24 WBC 7.9 (4.0-10.5) K/mm3 RBC 4.58 (4.1-5.4) M/mm3 Hgb 12.5 (12.0-16.0) gm/dl Hct 40.0 (35-47) % MCV 87.3 (78-100) fl MCH 27.3 (26-32) pg MCHC 31.3 L (32-36) g/dl RDW 17.7 H (11.5-14.0) % Plt Count 267 (150-450) K/mm3 MPV 12.7 H (7.5-11.0) fl Absolute Granulocytes 5.91 (1.4-6.9) PT (9.4-12.5) SECONDS INR (0.8-3.0) Sodium (137-145) mmol/L Potassium (3.5-5.1) mmol/L Chloride (98-107) mmol/L Carbon Dioxide (22-30) mmol/L Anion Gap (5-15) MEQ/L BUN (7-17) mg/dL Creatinine (0.52-1.04) mg/dL Estimated GFR ML/MIN Glucose (74-106) mg/dL POC Glucometer 408 H (74 to 106) mg/dL Calcium (8.4-10.2) mg/dL Total Bilirubin (0.2-1.3) mg/dL AST (14-36) U/L ALT (0-35) U/L Alkaline Phosphatase (38-126) U/L Serum Total Protein (6.3-8.2) g/dL Albumin (3.5-5.0) g/dL Thyroxine (T4) (5.53-10.96) ug/dL TSH 3rd Generation (0.47-4.68) mIU/L Urine Color (YELLOW) Urine Appearance (CLEAR) Urine pH (5-6) Ur Specific [place] (1.005-1.025) Urine Protein (Negative) Urine Ketones (NEGATIVE) Urine Blood (0-5) Jeff/ul Urine Nitrite (NEGATIVE) Urine Bilirubin (NEGATIVE) Urine Urobilinogen (0-1) mg/dL Ur Leukocyte Esterase (NEGATIVE) Urine WBC (Auto) (0-5) /HPF Urine RBC (Auto) (0-2) /HPF U Hyaline Cast (Auto) (0-2) /LPF U Epithel Cells (Auto) (FEW) /HPF Urine Bacteria (Auto) (NEGATIVE) /HPF Urine Mucus (Auto) (NEGATIVE) /HPF Urine Culture Reflexed (NO) Urine Glucose (NEGATIVE) mg/dL - Departure Departure Disposition: Home Clinical Impression: UTI (urinary tract infection), Hyperglycemia, Left facial numbness Condition: Stable Critical Care Time: No Referrals: CALVIN HOLGUIN [Primary Care Provider] - Additional Instructions: Drink plenty fluids. Monitor your blood sugar closely and follow a diabetic diet. Take your diabetic medication as prescribed. Take all your medication as prescribed. Follow-up with your primary care doctor tomorrow by phone in order to arrange a follow-up appointment. Prescriptions: Cefdinir 300 mg PO BID 7 Days #14 cap
[2021-08-04 22:50] LABS: Absolute Neutrophil Ct (ANC) 5.91 (1.4-6.9); Hemoglobin 12.5 gm/dl (12.0-16.0); Mean Cell Volume 87.3 fl (78-100); Mean Corpuscular Hemoglobin 27.3 pg (26-32); Mean Corpuscular Hgb Concent. 31.3 g/dl (32-36); Mean Platelet Volume 12.7 fl (7.5-11.0); Platelet Count 267 K/mm3 (150-450); Red Blood Count 4.58 M/mm3 (4.1-5.4); Red Cell Distribution Width 17.7 % (11.5-14.0); White Blood Count 7.9 K/mm3 (4.0-10.5)
[2021-08-04 22:58] LABS: INR 1.05 (0.8-3.0); PROTIME 12.4 SECONDS (9.4-12.5)
[2021-08-04] MEDS ORDERED: HUMULIN R ONE (23:00)
[2021-08-04] MEDS: HUMULIN R IV ONE (23:02)
[2021-08-04 23:09] LABS: Appearance SLIGHTLY CLOUDY (CLEAR); Bacteria FEW /HPF (NEGATIVE); Bilirubin NEGATIVE (NEGATIVE); Blood MODERATE Ery/ul (0-5); Epithelial Cells RARE /HPF (FEW); Glucose >=500 mg/dL (NEGATIVE); Hyaline Casts 0-2 /LPF (0-2); Ketones NEGATIVE (NEGATIVE); Leukocyte Esterase LARGE (NEGATIVE); Mucus SLIGHT /HPF (NEGATIVE); Nitrite POSITIVE (NEGATIVE); Protein,Urine Dip NEGATIVE (Negative); Specific Gravity 1.026 (1.005-1.025); Urobilinogen NEGATIVE mg/dL (0-1)
[2021-08-04 23:33] LABS: ALBUMIN 3.9 g/dL (3.5-5.0); ALKALINE PHOSPHATASE 327 U/L (38-126); ANION GAP 16.9 MEQ/L (5-15); BLOOD UREA NITROGEN 14 mg/dL (7-17); CHLORIDE 101 mmol/L (98-107); Calcium 9.8 mg/dL (8.4-10.2); Carbon Dioxide 20 mmol/L (22-30); Creatinine 1 0.58 mg/dL (0.52-1.04); EST GLOMERULAR FILTRATION RATE > 60.0 ML/MIN; Glucose 407 mg/dL (74-106); Potassium 4.2 mmol/L (3.5-5.1); SGOT/AST 47 U/L (14-36); SGPT/ALT 41 U/L (0-35); SODIUM 133 mmol/L (137-145); T4 (Thyroxine) 8.71 ug/dL (5.53-10.96); Total Protein 7.4 g/dL (6.3-8.2)
[2021-08-04 23:43] LABS: BAND 1 % (0.0-2.0); Lymphocytes 18 % (24-44); Monocyte 6 % (0.0-12.0); Neutrophils 75 % (36.0-66.0); Platelet Estimate NORMAL (NORMAL); Total Cells Counted 100
[2021-08-04] MEDS ORDERED: ROCEPHIN 1 Gm-D5w 50 ml Bag** 1 G/50 ML IVPB IV ONE (23:47)
[2021-08-04] MEDS: ROCEPHIN 1 Gm-D5w 50 ml Bag** 1 G/50 ML IVPB IV STA (23:50)
[2021-08-05 00:30] VITALS: BP 120/68; PULSE 87; O2SAT 99
--- NOTE | 2021-08-05 09:04 | XRAY ---
Indication: Left-sided numbness. Stroke. Multiple contiguous axial images obtained through the head without contrast. Comparison: April 29, 2016. There remains age-appropriate global atrophy and mild periventricular degenerative micro-ischemia bilaterally. No acute intracranial hemorrhage, abnormal extra-axial fluid collection, or mass effect. Fourth ventricle is midline without hydrocephalus. Bony calvarium intact again with incidental hyperostosis frontalis interna. Visualized paranasal sinuses and mastoid air cells are clear. Impression: Continued nonacute senile brain. Comment: Preliminary interpretation made by [facility]. No critical discrepancy.
== END 2021-08-05 00:30 | disposition home or self-care (01) ==
LOC: ED 22:16
DX: N39.0 Urinary tract infection, site not specified (principal); E11.65 Type 2 diabetes mellitus with hyperglycemia; R20.0 Anesthesia of skin; Z79.899 Other long term (current) drug therapy; I25.10 Atherosclerotic heart disease of native coronary artery without angina pectoris; I10 Essential (primary) hypertension; I25.2 Old myocardial infarction; J44.9 Chronic obstructive pulmonary disease, unspecified; G47.30 Sleep apnea, unspecified
CPT/HCPCS: 36000; 36415; 70450; 80053; 81001; 82947; 84436; 84443; 85025; 85610; 87077; 87086; 87186; 93005; 94760; 96374; 99284; J0696; J1815

== ENCOUNTER 2021-08-11 17:25 | Emergency (ER) | payer MEDICARE ==
--- NOTE | 2021-08-11 17:47 | ERPHSYRPT ---
- History of Present Illness Source: patient Exam Limitations: no limitations Associated Symptoms: nausea, abdominal pain, other (Rectal bleeding), No vomiting, No shortness of breath Hx Tetanus, Diphtheria Vaccination/Date Given: No Hx Influenza Vaccination/Date Given: No Hx Pneumococcal Vaccination/Date Given: No <CECILE NORRIS - Last Filed: 08/11/21 19:16> <CHANDAN GASTON KenSunitha - Last Filed: 08/11/21 21:20> - History of Present Illness Time Seen by Provider: 08/11/21 17:35 Physician History: The patient is a 61-year-old female with a past medical history significant for ulcerative colitis who presents with a chief complaint of rectal bleeding. Of note, the rectal bleeding started this afternoon after she was having a bowel movement. She states that she had noted blood in the toilet and upon wiping. She states on average she will have anywhere between 2-3 bloody bowel movements a week and has been followed as an outpatient by her PCP Dr. Palomino. She underwent a recent hospitalization for colitis and finished a 5-day course of prednisone and subsequently was discharged on July 10, 2021. She also finished antibiotic regimen consisting of Augmentin and Flagyl for this colitis in case there was some infectious process on top of the autoimmune or inflammatory process. She is supposed to follow-up as an outpatient on July 28 to have a colonoscopy but cannot make the appointment due to lack of transportation. She states she has had ongoing left lower quadrant abdominal pain for months that is relatively unchanged. She denies fever, chills and states that she has diarrhea daily and this is chronic. She currently is not followed by a drill foreman as an outpatient. (CECILE NORRIS) Allergies/Adverse Reactions: cyclobenzaprine HCl [From Flexeril] Allergy (Mild, Verified 08/11/21 17:45) Rash metoclopramide [From Reglan] Allergy (Mild, Verified 08/11/21 17:45) Rash Sulfa (Sulfonamide Antibiotics) [Sulfa(Sulfonamide Antibiotics)] Allergy (Mild, Verified 08/11/21 17:45) Rash adhesive Allergy (Verified 08/11/21 17:45) Rash nalbuphine HCl [From Nubain] Adverse Reaction (Intermediate, Verified 08/11/21 17:45) Stomach Cramps patient states she had stomach "burning" and that her legs felt like "rubber bands" ciprofloxacin [From Cipro] Adverse Reaction (Mild, Verified 08/11/21 17:45) Rash meperidine HCl [From Demerol] Adverse Reaction (Mild, Verified 08/11/21 17:45) Vomiting morphine Adverse Reaction (Verified 08/11/21 17:45) ADDICTION PT STATES SHE TOOK MORPHINE YEARS AGO AND IT WAS HARD TO GET OFF OF IT AND DOES NOT WANT IT Home Medications: Duloxetine HCl 60 mg PO DAILY 03/17/16 [History] Mesalamine [Pentasa] 500 mg PO BID 03/17/16 [History] Metformin HCl 1000 mg [Glucophage 1000 MG] 1,000 mg PO BID 03/17/16 [History] Methocarbamol 500 mg [Robaxin 500 MG] 1,000 mg PO QIDPRN PRN 03/17/16 [History] Omeprazole 20 MG [Prilosec 20 mg] 20 mg PO BID 03/17/16 [History] Atorvastatin Calcium 10 mg PO DAILY 01/25/18 [History] Insulin Glargine,Hum.rec.anlog [Basaglar Kwikpen U-100] 38 unit SQ HS 12/05/19 [History] Meclizine HCl 25 mg [Antivert 25 mg] 25 mg PO DAILY PRN 12/05/19 [History] Insulin Aspart [Novolog] 44 unit SQ AC 08/02/20 [History] Isosorbide Mononitrate 60 mg [Imdur 60MG] 120 mg PO DAILY 12/31/20 [History] Levothyroxine Sodium 25 Mcg [Synthroid 25 Mcg] 25 mcg PO DAILY 12/31/20 [History] Metoprolol Succinate 100 mg [Toprol Xl 100 MG] 100 mg PO DAILY 12/31/20 [History] Albuterol Sulfate [Albuterol Sulfate Hfa] 2 puffs IH Q4HPRN PRN 01/18/21 [History] PARoxetine HCl [Paxil] 10 mg PO DAILY 01/18/21 [History] L.acidoph,Paracasei, B.lactis [Probiotic] 1 cap PO DAILY 06/11/21 [History] Travel Risk - Vaccine Status Have you recieved a Covid-19 vaccination: No <CECILE NORRIS - Last Filed: 08/11/21 19:16> - Review of Systems Constitutional: No Fever, No Chills Respiratory: No Cough, No Cyanosis Cardiac: No Chest Pain Abdominal/Gastrointestinal: Abdominal Pain, Nausea, Diarrhea, Hematochezia, No Vomiting, No Hematemesis, No Melena Genitourinary Symptoms: No Dysuria Musculoskeletal: No Symptoms Skin: No Symptoms Neurological: No Symptoms Psychological: No Symptoms All Other Systems: Reviewed and Negative <MYRNACECILE - Last Filed: 08/11/21 19:16> - Past Medical History Pertinent Past Medical History: Yes Neurological History: Migraines ENT History: Cataracts Cardiac History: Coronary Artery Disease, High Cholesterol, Hypertension, Myocardial Infarction ([place]) Respiratory History: Asthma, Bronchitis, COPD, Sleep Apnea Endocrine Medical History: Diabetes Type II Musculoskeletal History: Arthritis, Degenerative Disk Disease, Fibromyalgia, Osteoarthritis GI Medical History: Crohns Disease, Diverticulitis, GERD, Irritable Bowel History: No Pertinent History Psycho-Social History: Anxiety, Depression Female Reproductive Disorders: No Pertinent History Other Medical History: HX UTI, HX Yeast Infection, Neuropathy - Past Surgical History Past Surgical History: Yes Neuro Surgical History: No Pertinent History Cardiac: Cardiac Catheterization Respiratory: No Pertinent History Gastrointestinal: No Pertinent History Genitourinary: No Pertinent History Musculoskeletal: No Pertinent History Female Surgical History: Dilation & Curettage, Section, Tubal Ligation Other Surgical History: KIDNEY STONE REMOVAL. heart cath x3, no stents - Social History Smoking Status: Never smoker How long have you smoked: years Exposure to second hand smoke: No Alcohol Use: None Drug Use: none Patient Lives Alone: Yes Significant Family History: no pertinent family hx, diabetes, hypertension <MYRNA,CECILE - Last Filed: 08/11/21 19:16> - Physical Exam General Appearance: no apparent distress, alert, obese Eye Exam: No scleral icterus Neck Exam: non-tender, supple Respiratory Exam: lungs clear, airway intact, No chest tenderness, No respiratory distress Cardiovascular Exam: regular rate/rhythm, normal heart sounds, No murmur, No friction rub, No gallop Gastrointestinal/Abdomen Exam: soft, normal bowel sounds, tenderness (Mild LLQ tenderness with no rebound tenderness or guarding), No distention, No mass, No guarding Rectal Exam: hemorrhoids, other (External hemorrhoids noted with no evidence of a thrombosed hemorrhoid ), No tenderness Extremity Exam: normal inspection Neurologic Exam: alert, oriented x 3, normal mood/affect Skin Exam: normal color, warm, dry, No rash, No petechiae, No jaundice SpO2 Interpretation: normal <CECILE NORRIS - Last Filed: 08/11/21 19:16> - Nursing Vital Signs Nursing Vital Signs: Initial Vital Signs Temperature 97.6 F 08/11/21 17:36 Pulse Rate 117 H 08/11/21 17:36 Respiratory Rate 20 08/11/21 17:36 Blood Pressure 130/72 08/11/21 17:36 O2 Sat by Pulse Oximetry 100 08/11/21 17:36 Pain Scale Pain Intensity 5 Ordered Tests: Active Orders 24 hr Category Date Time Status IV Insertion STAT Care 08/11/21 17:46 Active ABDOMEN AND PELVIS W CONTRAST [CT] Stat Exams 08/11/21 17:45 Taken BMP Stat Lab 08/11/21 18:20 Completed CBC W DIFF Stat Lab 08/11/21 18:20 Completed CULTURE,URINE Stat Lab 08/11/21 19:33 Received UA W/RFX UR CULTURE Stat Lab 08/11/21 19:33 Completed Lab/Rad Data: Laboratory Result Diagrams 08/11/21 18:20 08/11/21 18:20 Laboratory Results 08/11/21 08/11/21 08/11/21 Range/Units 19:33 18:20 18:20 WBC 8.1 (4.0-10.5) K/mm3 RBC 4.38 (4.1-5.4) M/mm3 Hgb 11.7 L (12.0-16.0) gm/dl Hct 38.3 (35-47) % MCV 87.4 (78-100) fl MCH 26.7 (26-32) pg MCHC 30.5 L (32-36) g/dl RDW 16.9 H (11.5-14.0) % Plt Count 167 (150-450) K/mm3 MPV 12.5 H (7.5-11.0) fl Gran % 81.8 H (36.0-66.0) % Eos # (Auto) 0.31 (0-0.5) Absolute Lymphs (auto) 0.70 L (1.0-4.6) Absolute Monos (auto) 0.43 (0.0-1.3) Lymphocytes % 8.7 L (24.0-44.0) % Monocytes % 5.3 (0.0-12.0) % Eosinophils % 3.8 (0.00-5.0) % Basophils % 0.4 (0.0-0.4) % Absolute Granulocytes 6.61 (1.4-6.9) Basophils # 0.03 (0-0.4) Sodium 133 L (137-145) mmol/L Potassium 3.8 (3.5-5.1) mmol/L Chloride 102 (98-107) mmol/L Carbon Dioxide 20 L (22-30) mmol/L Anion Gap 13.9 (5-15) MEQ/L BUN 9 (7-17) mg/dL Creatinine 0.80 (0.52-1.04) mg/dL Estimated GFR > 60.0 ML/MIN Glucose 310 H (74-106) mg/dL Calcium 9.1 (8.4-10.2) mg/dL Urine Color YELLOW (YELLOW) Urine Appearance SLIGHTLY CLOUDY (CLEAR) Urine pH 6.0 (5-6) Ur Specific Arrey >=1.030 (1.005-1.025) Urine Protein 30 (Negative) Urine Ketones NEGATIVE (NEGATIVE) Urine Blood SMALL (0-5) Jeff/ul Urine Nitrite NEGATIVE (NEGATIVE) Urine Bilirubin NEGATIVE (NEGATIVE) Urine Urobilinogen NEGATIVE (0-1) mg/dL Ur Leukocyte Esterase MODERATE (NEGATIVE) Urine WBC (Auto) 3-5 (0-5) /HPF Urine RBC (Auto) 3-5 (0-2) /HPF U Epithel Cells (Auto) MODERATE (FEW) /HPF Urine Bacteria (Auto) RARE (NEGATIVE) /HPF Urine Mucus (Auto) SLIGHT (NEGATIVE) /HPF Urine Culture Reflexed YES (NO) Urine Glucose NEGATIVE (NEGATIVE) mg/dL C. difficile Screen (NEGATIVE) C.difficile 027-[id number] (NEGATIVE) 08/11/21 Range/Units 18:14 WBC (4.0-10.5) K/mm3 RBC (4.1-5.4) M/mm3 Hgb (12.0-16.0) gm/dl Hct (35-47) % MCV (78-100) fl MCH (26-32) pg MCHC (32-36) g/dl RDW (11.5-14.0) % Plt Count (150-450) K/mm3 MPV (7.5-11.0) fl Gran % (36.0-66.0) % Eos # (Auto) (0-0.5) Absolute Lymphs (auto) (1.0-4.6) Absolute Monos (auto) (0.0-1.3) Lymphocytes % (24.0-44.0) % Monocytes % (0.0-12.0) % Eosinophils % (0.00-5.0) % Basophils % (0.0-0.4) % Absolute Granulocytes (1.4-6.9) Basophils # (0-0.4) Sodium (137-145) mmol/L Potassium (3.5-5.1) mmol/L Chloride (98-107) mmol/L Carbon Dioxide (22-30) mmol/L Anion Gap (5-15) MEQ/L BUN (7-17) mg/dL Creatinine (0.52-1.04) mg/dL Estimated GFR ML/MIN Glucose (74-106) mg/dL Calcium (8.4-10.2) mg/dL Urine Color (YELLOW) Urine Appearance (CLEAR) Urine pH (5-6) Ur Specific Arrey (1.005-1.025) Urine Protein (Negative) Urine Ketones (NEGATIVE) Urine Blood (0-5) Jeff/ul Urine Nitrite (NEGATIVE) Urine Bilirubin (NEGATIVE) Urine Urobilinogen (0-1) mg/dL Ur Leukocyte Esterase (NEGATIVE) Urine WBC (Auto) (0-5) /HPF Urine RBC (Auto) (0-2) /HPF U Epithel Cells (Auto) (FEW) /HPF Urine Bacteria (Auto) (NEGATIVE) /HPF Urine Mucus (Auto) (NEGATIVE) /HPF Urine Culture Reflexed (NO) Urine Glucose (NEGATIVE) mg/dL C. difficile Screen POSITIVE (NEGATIVE) C.difficile [id number] PRESUMPTIVE NEGATIVE (NEGATIVE) - Progress Progress: unchanged Counseled pt/family regarding: lab results <CECILE NORRIS - Last Filed: 08/11/21 19:16> - Progress Progress: improved <CHANDAN GASTON - Last Filed: 08/11/21 21:20> - Progress Progress Note: 08/11/21 18:33 I reviewed the patient's EMR and it appears her hemoglobin is stable. 08/11/21 18:53 The patient is a 73-year-old female with a IV of the patient's BMP. She has a serum sodium of 133 and a glucose of 310 and her serum sodium likely reflects a pseudohyponatremia. Her serum bicarb is 20 which is her baseline. 08/11/21 18:55 I reviewed the patient's EMR and it appears she had a recent hospital admission on July 02, 2021 for bloody stools and pain throughout her abdomen and was found to have evidence of colitis of the distal sigmoid colon and rectum on her CT scan during that hospitalization. She received IV steroids and IV antibiotics and was placed on Dilaudid for pain. She subsequently was di scharged home on 60 mg of prednisone to take daily for 5 days in addition to Augmentin and Flagyl. It appears she was given a short course of Platter to take for pain. It also appears there is documentation that the patient has had narcotic addiction. 08/11/21 18:57 Nontoxic in appearance. The patient presents with rectal bleeding which I believe is likely sequelae of her known ulcerative colitis. She also has left lower quadrant abdominal pain and tenderness that she has had for a couple jeronimo hs which is also likely sequelae of her ulcerative colitis. Labs to include CBC and BMP in addition to stool studies to check for C. difficile colitis will be ordered. CT scan of her abdomen pelvis with contrast will also be ordered to eval for evidence of abscess, fistula, colitis, mass and is currently pending. At this time, the patient appears to be relatively comfortable and has not required any pain medication at this time. Patient care will be transitioned to Dr. Gaston pending CT results plus minus consultation with her primary care provider or the on-call primary care provider for further recommendations/disposition. (CECILE NORRIS) 08/11/21 21:19 CT scan shows continued colitis. Mild versus residual descending colitis. Patient is already on antibiotics for this. Gallbladder stable. Patient's pain mostly resolved at this point in time. She will need close follow-up with her PCP, outpatient endoscopy. She can return here at any point in time for further evaluation. H&H stable. Nontoxic-appearing, soft abdomen on my reexam. No rebound no guarding. (CHANDAN GASTON) <CECILE NORRIS - Last Filed: 08/11/21 19:16> - Departure Departure Disposition: Home Critical Care Time: No <CHANDAN GASTON - Last Filed: 08/11/21 21:20> - Departure Clinical Impression: Rectal bleeding, Normocytic anemia, History of ulcerative colitis, Coronary artery disease Condition: Stable Referrals: CALVIN PALOMINO [Primary Care Provider] - Instructions: Acute Abdomen (Belly Pain), Adult (DC), Bloody Stools, Adult (DC)
[2021-08-11 18:25] LABS: Absolute Neutrophil Ct (ANC) 6.61 (1.4-6.9); BASOPHIL % 0.4 % (0.0-0.4); Basophil (Absolute #) 0.03 (0-0.4); Eosinophil % 3.8 % (0.00-5.0); Eosinophil (Absolute #) 0.31 (0-0.5); Hematocrit 38.3 % (35-47); Hemoglobin 11.7 gm/dl (12.0-16.0); Lymphocytes % 8.7 % (24.0-44.0); Mean Cell Volume 87.4 fl (78-100); Mean Corpuscular Hemoglobin 26.7 pg (26-32); Mean Corpuscular Hgb Concent. 30.5 g/dl (32-36); Mean Platelet Volume 12.5 fl (7.5-11.0); Monocyte (Absolute #) 0.43 (0.0-1.3); Monocytes % 5.3 % (0.0-12.0); Neutrophil % 81.8 % (36.0-66.0); Platelet Count 167 K/mm3 (150-450); Red Blood Count 4.38 M/mm3 (4.1-5.4); Red Cell Distribution Width 16.9 % (11.5-14.0); White Blood Count 8.1 K/mm3 (4.0-10.5)
[2021-08-11 18:50] LABS: ANION GAP 13.9 MEQ/L (5-15); BLOOD UREA NITROGEN 9 mg/dL (7-17); CHLORIDE 102 mmol/L (98-107); Calcium 9.1 mg/dL (8.4-10.2); Carbon Dioxide 20 mmol/L (22-30); EST GLOMERULAR FILTRATION RATE > 60.0 ML/MIN; Glucose 310 mg/dL (74-106); Potassium 3.8 mmol/L (3.5-5.1); SODIUM 133 mmol/L (137-145)
[2021-08-11 19:02] LABS: 027 TOX PROD PRESUMPTIVE NEGATIVE (NEGATIVE)
[2021-08-11 19:30] LABS: TOXIGENIC C. DIFF ORG POSITIVE (NEGATIVE)
[2021-08-11 19:46] LABS: Appearance SLIGHTLY CLOUDY (CLEAR); Bacteria RARE /HPF (NEGATIVE); Bilirubin NEGATIVE (NEGATIVE); Blood SMALL Ery/ul (0-5); Epithelial Cells MODERATE /HPF (FEW); Glucose NEGATIVE (NEGATIVE); Ketones NEGATIVE (NEGATIVE); Leukocyte Esterase MODERATE (NEGATIVE); Mucus SLIGHT /HPF (NEGATIVE); Nitrite NEGATIVE (NEGATIVE); Protein,Urine Dip 30 (Negative); Urobilinogen NEGATIVE mg/dL (0-1)
[2021-08-11 20:04] LABS: Specific Gravity >=1.030 (1.005-1.025)
[2021-08-11 20:31] VITALS: PULSE 91
[2021-08-11 21:26] VITALS: BP 113/71; O2SAT 97
--- NOTE | 2021-08-12 08:37 | XRAY ---
Indication: Left lower quadrant pain. Rectal bleeding. History of ulcerative colitis. Multiple contiguous axial images obtained through the abdomen and pelvis using 100 cc Isovue 370 contrast. Comparison: July 24, 2021. Lung bases again demonstrates minimal dependent atelectasis. No infiltrate or effusion. Heart is not enlarged. Noncontrasted stomach and bowel loops are nonobstructed. Descending and proximal sigmoid colon demonstrates mild circumferential wall thickening with minimal pericolonic stranding, residual versus recurrent colitis. No free fluid/air. Gallbladder is now moderately distended again with tiny gravel/sludge in the dependent portion. Stable bilateral renal cysts. Remaining liver, gallbladder, pancreas, spleen, adrenal glands, kidneys, ureters, bladder, and uterus appear unremarkable. There remains minimal aortoiliac calcifications. No AAA or pathologic retroperitoneal lymphadenopathy. Osseous structures intact again with minimal degenerative changes throughout the spine. Stable small fatty left inguinal hernia. Impression: 1. Again mild residual versus recurrent left hemicolon colitis. 2. Abnormal distended gallbladder again with tiny gravel/sludge. 3. Again incidental bilateral renal cysts, small fatty left inguinal hernia, and chronic bony findings.
== END 2021-08-11 21:33 | disposition home or self-care (01) ==
LOC: ED 17:25
DX: K62.5 Hemorrhage of anus and rectum (principal); D64.9 Anemia, unspecified; K51.90 Ulcerative colitis, unspecified, without complications; I25.10 Atherosclerotic heart disease of native coronary artery without angina pectoris
CPT/HCPCS: 36000; 36415; 74177; 80048; 81001; 85025; 87086; 87493; 99284

== ENCOUNTER 2021-10-03 18:18 | Observation (INO) | payer MEDICARE ==
--- NOTE | 2021-10-03 19:05 | ERPHSYRPT ---
- History of Present Illness Time Seen by Provider: 10/03/21 19:00 Historian: patient, family Exam Limitations: no limitations Patient Subjective Stated Complaint: Pt was out of her paxil so she took 2 Cymbalta and then later her abdomen began hurting and she has a history of colitis and she didn't make it to the restroom and she "had a blowout" and she is feeling pain in her LLQ now Triage Nursing Assessment: Pt brought to the ER by EMS, tachycardic, rates abdominal pain as 4/10, pulses normal, denies vomiting, has nausea, hasn't eaten since yesterday due to a decreased appetite Physician History: Pt reports took 2 cymbalta 60 mg instead of one today and has been vomiting since, but also has UC treated , and this seems to be flaring with more aqbd pain today. abd is diffusly tender but without [id number] signs or masses or distension. discussed risk/benefit of CT and pt wishes to proceed. Timing/Duration: today Activities at Onset: none Quality: cramping, sharpness Abdominal Pain Onset Location: generalized abdomen Pain Radiation: RUQ, LUQ Severity of Pain-Max: moderate Severity of Pain-Current: moderate Associated Symptoms: diarrhea, nausea, vomiting Previous symptoms: different symptoms, recently seen, recently treated Allergies/Adverse Reactions: cyclobenzaprine HCl [From Flexeril] Allergy (Mild, Verified 10/03/21 18:32) Rash metoclopramide [From Reglan] Allergy (Mild, Verified 10/03/21 18:32) Rash Sulfa (Sulfonamide Antibiotics) [Sulfa(Sulfonamide Antibiotics)] Allergy (Mild, Verified 10/03/21 18:32) Rash adhesive Allergy (Verified 10/03/21 18:32) Rash nalbuphine HCl [From Nubain] Adverse Reaction (Intermediate, Verified 10/03/21 18:32) Stomach Cramps patient states she had stomach "burning" and that her legs felt like "rubber bands" ciprofloxacin [From Cipro] Adverse Reaction (Mild, Verified 10/03/21 18:32) Rash meperidine HCl [From Demerol] Adverse Reaction (Mild, Verified 10/03/21 18:32) Vomiting morphine Adverse Reaction (Verified 10/03/21 18:32) ADDICTION PT STATES SHE TOOK MORPHINE YEARS AGO AND IT WAS HARD TO GET OFF OF IT AND DOES NOT WANT IT Home Medications: Duloxetine HCl 60 mg PO DAILY 03/17/16 [History] Mesalamine [Pentasa] 500 mg PO BID 03/17/16 [History] Metformin HCl 1000 mg [Glucophage 1000 MG] 1,000 mg PO BID 03/17/16 [History] Methocarbamol 500 mg [Robaxin 500 MG] 1,000 mg PO QIDPRN PRN 03/17/16 [History] Omeprazole 20 MG [Prilosec 20 mg] 20 mg PO BID 03/17/16 [History] Atorvastatin Calcium 10 mg PO DAILY 01/25/18 [History] Insulin Glargine,Hum.rec.anlog [Basaglar Kwikpen U-100] 38 unit SQ HS 12/05/19 [History] Meclizine HCl 25 mg [Antivert 25 mg] 25 mg PO DAILY PRN 12/05/19 [History] Insulin Aspart [Novolog] 44 unit SQ AC 08/02/20 [History] Isosorbide Mononitrate 60 mg [Imdur 60MG] 120 mg PO DAILY 12/31/20 [History] Levothyroxine Sodium 25 Mcg [Synthroid 25 Mcg] 25 mcg PO DAILY 12/31/20 [History] Metoprolol Succinate 100 mg [Toprol Xl 100 MG] 100 mg PO DAILY 12/31/20 [History] Albuterol Sulfate [Albuterol Sulfate Hfa] 2 puffs IH Q4HPRN PRN 01/18/21 [History] PARoxetine HCl [Paxil] 10 mg PO DAILY 01/18/21 [History] L.acidoph,Paracasei, B.lactis [Probiotic] 1 cap PO DAILY 06/11/21 [History] Hx Tetanus, Diphtheria Vaccination/Date Given: No Hx Influenza Vaccination/Date Given: No Hx Pneumococcal Vaccination/Date Given: No Travel Risk - International Travel Have you traveled outside of the country in past 3 weeks: No - Coronavirus Screening Are you exhibiting any of the following symptoms?: No Close contact with a COVID-19 positive Pt in past 14-21 Days: No - Vaccine Status Have you recieved a Covid-19 vaccination: No - Review of Systems Constitutional: No Fever, No Chills Eyes: No Symptoms Ears, Nose, & Throat: No Symptoms Respiratory: No Cough, No Dyspnea Cardiac: No Chest Pain, No Edema, No Syncope Abdominal/Gastrointestinal: Abdominal Pain, Nausea, Vomiting, Hematochezia, No Diarrhea Genitourinary Symptoms: No Dysuria Musculoskeletal: No Back Pain, No Neck Pain Skin: No Rash Neurological: No Dizziness, No Focal Weakness, No Sensory Changes Psychological: No Symptoms Endocrine: No Symptoms All Other Systems: Reviewed and Negative - Past Medical History Pertinent Past Medical History: Yes Neurological History: Migraines ENT History: Cataracts Cardiac History: Coronary Artery Disease, High Cholesterol, Hypertension, Myocardial Infarction ([place]) Respiratory History: Asthma, Bronchitis, COPD, Sleep Apnea Endocrine Medical History: Diabetes Type II Musculoskeletal History: Arthritis, Degenerative Disk Disease, Fibromyalgia, Osteoarthritis GI Medical History: Crohns Disease, Diverticulitis, GERD, Irritable Bowel History: No Pertinent History Psycho-Social History: Anxiety, Depression Female Reproductive Disorders: No Pertinent History Other Medical History: HX UTI, HX Yeast Infection, Neuropathy - Past Surgical History Past Surgical History: Yes Neuro Surgical History: No Pertinent History Cardiac: Cardiac Catheterization Respiratory: No Pertinent History Gastrointestinal: No Pertinent History Genitourinary: No Pertinent History Musculoskeletal: No Pertinent History Female Surgical History: Dilation & Curettage, Section, Tubal Ligation Other Surgical History: KIDNEY STONE REMOVAL. heart cath x3, no stents - Social History Smoking Status: Never smoker How long have you smoked: years Exposure to second hand smoke: No Alcohol Use: None Drug Use: none Patient Lives Alone: Yes Significant Family History: no pertinent family hx, diabetes, hypertension - Female History Hx Now: No - Nursing Vital Signs Nursing Vital Signs: Initial Vital Signs Temperature 98.0 F 10/03/21 18:23 Pulse Rate 115 H 10/03/21 18:23 Respiratory Rate 30 H 10/03/21 18:23 Blood Pressure 123/69 10/03/21 18:23 O2 Sat by Pulse Oximetry 97 10/03/21 18:23 Pain Scale Pain Intensity 8 - Physical Exam General Appearance: no apparent distress, alert Eye Exam: PERRL/EOMI, eyes nml inspection Ears, Nose, Throat Exam: normal ENT inspection, pharynx normal, moist mucous membranes Neck Exam: normal inspection, non-tender, supple, full range of motion Respiratory Exam: normal breath sounds, lungs clear, No respiratory distress Cardiovascular Exam: regular rate/rhythm, normal heart sounds Gastrointestinal/Abdomen Exam: soft, tenderness, guarding, No mass, No pulsatile mass, No rebound Pelvic Exam: deferred Rectal Exam: deferred Back Exam: normal inspection, normal range of motion, No CVA tenderness, No vertebral tenderness Extremity Exam: normal inspection, normal range of motion, pelvis stable Neurologic Exam: alert, oriented x 3, cooperative, normal mood/affect, nml ce rebellar function, sensation nml, No motor deficits Skin Exam: normal color, warm, dry SpO2: 97 - Course Nursing assessment & vital signs reviewed: Yes EKG Interpreted by Me: Sinus Tach, 1st degree AV Block, Non-specific ST Changes - CT Exams Abdomen/Pelvis CT Interpretation: Tele-radiologist Report, Other (colitis, cholelithiasis) Ordered Tests: Active Orders 24 hr Category Date Time Status EKG-ER Only STAT Care 10/03/21 19:07 Active IV Insertion STAT Care 10/03/21 19:07 Active ABDOMEN AND PELVIS W/0 CONTRAS [CT] Stat Exams 10/03/21 19:08 Taken AMYLASE Stat Lab 10/03/21 19:12 Completed BNP [NT PRO BNP] Stat Lab 10/03/21 21:03 Ordered CBC W DIFF Stat Lab 10/03/21 19:12 Completed CMP Stat Lab 10/03/21 19:12 Completed FECAL OCCULT BLOOD - SCREENING Stat Lab 10/03/21 19:50 Completed LIPASE Stat Lab 10/03/21 19:12 Completed Lactic Acid Stat Lab 10/03/21 20:13 Completed TROPONIN Q3H Lab 10/03/21 19:12 Completed TROPONIN Q3H Lab 10/03/21 22:15 Ordered TROPONIN Q3H Lab 10/04/21 01:15 Ordered TROPONIN Q3H Lab 10/04/21 04:15 Ordered TROPONIN Q3H Lab 10/04/21 07:15 Ordered UA W/RFX UR CULTURE Stat Lab 10/03/21 19:08 Ordered Medication Summary Discontinued Medications Generic Name Dose Route Start Last Admin Trade Name Freq PRN Reason Stop Dose Admin Methylprednisolone Sodium 0 mg 10/03/21 19:57 10/03/21 20:02 Succinate 125 mg/ Sterile IV 10/03/21 19:58 125 mg Water 2 ml STAT ONE Administration Hydromorphone HCl 1 mg 10/03/21 20:30 10/03/21 20:33 Hydromorphone 1 Mg/1ml Inj 1 Mg/Ml Syringe IV 10/03/21 20:31 1 mg STAT ONE Administration Hydromorphone HCl Confirm 10/03/21 20:32 Hydromorphone 1 Mg/1ml Inj 1 Mg/Ml Syringe Administered 10/03/21 20:33 Dose 1 mg .ROUTE .STK-MED ONE Sodium Chloride 1,000 mls @ 999 mls/hr 10/03/21 19:07 10/03/21 20:17 Sodium Chloride 0.9% 1000 Ml IV 10/03/21 20:07 Infused .Q1H1M STA Infusion Sodium Chloride Confirm 10/03/21 19:14 Sodium Chloride 0.9% 1000 Ml Administered 10/03/21 19:15 Dose 1,000 mls @ ud .ROUTE .STK-MED ONE Insulin Human Regular 10 unit 10/03/21 19:26 10/03/21 19:40 Insulin Regular, Human 1 Unit IV 10/03/21 19:27 10 unit STAT ONE Administration Insulin Human Regular Confirm 10/03/21 19:39 Insulin Regular, Human 1 Unit Administered 10/03/21 19:40 Dose 10 unit .ROUTE .STK-MED ONE Methylprednisolone Sodium Succinate Confirm 10/03/21 20:01 Methylprednis Sod Succ 125 Mg/2 Ml Vial Administered 10/03/21 20:02 Dose 125 mg .ROUTE .STK-MED ONE Ondansetron HCl 4 mg 10/03/21 19:07 10/03/21 19:16 Ondansetron Hcl 4 Mg/2 Ml Vial IV 10/03/21 19:08 4 mg STAT ONE Administration Ondansetron HCl Confirm 10/03/21 19:13 Ondansetron Hcl 4 Mg/2 Ml Vial Administered 10/03/21 19:14 Dose 4 mg .ROUTE .STK-MED ONE Lab/Rad Data: Laboratory Result Diagrams 10/03/21 19:12 10/03/21 19:12 Laboratory Results 10/03/21 10/03/21 10/03/21 Range/Units 20:13 19:50 19:12 WBC (4.0-10.5) K/mm3 RBC (4.1-5.4) M/mm3 Hgb (12.0-16.0) gm/dl Hct (35-47) % MCV (78-100) fl MCH (26-32) pg MCHC (32-36) g/dl RDW (11.5-14.0) % Plt Count (150-450) K/mm3 MPV (7.5-11.0) fl Gran % (36.0-66.0) % Eos # (Auto) (0-0.5) Absolute Lymphs (auto) (1.0-4.6) Absolute Monos (auto) (0.0-1.3) Lymphocytes % (24.0-44.0) % Monocytes % (0.0-12.0) % Eosinophils % (0.00-5.0) % Basophils % (0.0-0.4) % Absolute Granulocytes (1.4-6.9) Basophils # (0-0.4) Sodium (137-145) mmol/L Potassium (3.5-5.1) mmol/L Chloride (98-107) mmol/L Carbon Dioxide (22-30) mmol/L Anion Gap (5-15) MEQ/L BUN (7-17) mg/dL Creatinine (0.52-1.04) mg/dL Estimated GFR ML/MIN Glucose (74-106) mg/dL Lactic Acid 3.7 H (0.4-2.0) Calcium (8.4-10.2) mg/dL Total Bilirubin (0.2-1.3) mg/dL AST (14-36) U/L ALT (0-35) U/L Alkaline Phosphatase (38-126) U/L Troponin I < 0.012 (0.000-0.034) ng/mL Serum Total Protein (6.3-8.2) g/dL Albumin (3.5-5.0) g/dL Amylase (30-110) U/L Lipase (23-300) U/L Stool Occult Blood POSITIVE A (NEGATIVE) 10/03/21 10/03/21 Range/Units 19:12 19:12 WBC 7.4 (4.0-10.5) K/mm3 RBC 4.38 (4.1-5.4) M/mm3 Hgb 11.1 L (12.0-16.0) gm/dl Hct 37.2 (35-47) % MCV 84.9 (78-100) fl MCH 25.3 L (26-32) pg MCHC 29.8 L (32-36) g/dl RDW 16.5 H (11.5-14.0) % Plt Count 252 (150-450) K/mm3 MPV 12.8 H (7.5-11.0) fl Gran % 74.4 H (36.0-66.0) % Eos # (Auto) 0.34 (0-0.5) Absolute Lymphs (auto) 0.97 L (1.0-4.6) Absolute Monos (auto) 0.54 (0.0-1.3) Lymphocytes % 13.2 L (24.0-44.0) % Monocytes % 7.3 (0.0-12.0) % Eosinophils % 4.6 (0.00-5.0) % Basophils % 0.5 (0.0-0.4) % Absolute Granulocytes 5.47 (1.4-6.9) Basophils # 0.04 (0-0.4) Sodium 134 L (137-145) mmol/L Potassium 4.1 (3.5-5.1) mmol/L Chloride 103 (98-107) mmol/L Carbon Dioxide 17 L (22-30) mmol/L Anion Gap 18.1 H (5-15) MEQ/L BUN 13 (7-17) mg/dL Creatinine 0.94 (0.52-1.04) mg/dL Estimated GFR > 60.0 ML/MIN Glucose 352 H (74-106) mg/dL Lactic Acid (0.4-2.0) Calcium 9.7 (8.4-10.2) mg/dL Total Bilirubin 0.60 (0.2-1.3) mg/dL AST 35 (14-36) U/L ALT 22 (0-35) U/L Alkaline Phosphatase 160 H (38-126) U/L Troponin I (0.000-0.034) ng/mL Serum Total Protein 7.3 (6.3-8.2) g/dL Albumin 4.1 (3.5-5.0) g/dL Amylase 48 (30-110) U/L Lipase 84 (23-300) U/L Stool Occult Blood (NEGATIVE) - Progress Progress: improved, re-examined Progress Note: 10/03/21 21:06 discussed with pt and Dr. Wagner covering and all agree best to place on obs and begin steroids and AB, check stools , and check BNP, give IV fluids. Discussed with .: Patricia Will see patient in: hospital (observation) Counseled pt/family regarding: lab results, diagnosis, need for follow-up, rad results - Departure Departure Disposition: Observation Clinical Impression: Ulcerative colitis Condition: Good Critical Care Time: No Referrals: CALVIN PALOMINO [Primary Care Provider] - Follow up/PCP as directed
[2021-10-03] MEDS ORDERED: Zofran 4 MG/2 ML VIAL IV ONE (19:07)
[2021-10-03] MEDS ORDERED: Sodium Chloride 0.9% 1000 ML 1,000 ML IV STA (19:07)
[2021-10-03] MEDS ORDERED: Zofran 4 MG/2 ML VIAL ONE (19:13)
[2021-10-03] MEDS ORDERED: Sodium Chloride 0.9% 1000 ML 1,000 ML ONE (19:14)
[2021-10-03 19:15] LABS: Absolute Neutrophil Ct (ANC) 5.47 (1.4-6.9); BASOPHIL % 0.5 % (0.0-0.4); Basophil (Absolute #) 0.04 (0-0.4); Eosinophil % 4.6 % (0.00-5.0); Eosinophil (Absolute #) 0.34 (0-0.5); Hematocrit 37.2 % (35-47); Hemoglobin 11.1 gm/dl (12.0-16.0); Lymphocyte (Absolute #) 0.97 (1.0-4.6); Lymphocytes % 13.2 % (24.0-44.0); Mean Cell Volume 84.9 fl (78-100); Mean Corpuscular Hemoglobin 25.3 pg (26-32); Mean Corpuscular Hgb Concent. 29.8 g/dl (32-36); Mean Platelet Volume 12.8 fl (7.5-11.0); Monocyte (Absolute #) 0.54 (0.0-1.3); Monocytes % 7.3 % (0.0-12.0); Neutrophil % 74.4 % (36.0-66.0); Platelet Count 252 K/mm3 (150-450); Red Blood Count 4.38 M/mm3 (4.1-5.4); Red Cell Distribution Width 16.5 % (11.5-14.0); White Blood Count 7.4 K/mm3 (4.0-10.5)
[2021-10-03 19:21] LABS: ALBUMIN 4.1 g/dL (3.5-5.0); ALKALINE PHOSPHATASE 160 U/L (38-126); AMYLASE 48 U/L (30-110); ANION GAP 18.1 MEQ/L (5-15); BLOOD UREA NITROGEN 13 mg/dL (7-17); CHLORIDE 103 mmol/L (98-107); Calcium 9.7 mg/dL (8.4-10.2); Carbon Dioxide 17 mmol/L (22-30); Creatinine 1 0.94 mg/dL (0.52-1.04); EST GLOMERULAR FILTRATION RATE > 60.0 ML/MIN; Glucose 352 mg/dL (74-106); LIPASE 84 U/L (23-300); Potassium 4.1 mmol/L (3.5-5.1); SGOT/AST 35 U/L (14-36); SGPT/ALT 22 U/L (0-35); SODIUM 134 mmol/L (137-145); Total Protein 7.3 g/dL (6.3-8.2)
[2021-10-03] MEDS ORDERED: HUMULIN R IV ONE (19:26)
[2021-10-03] MEDS ORDERED: HUMULIN R ONE (19:39)
[2021-10-03] MEDS ORDERED: solu-MEDROL 125 MG, Sterile H2O 10 ml 2 ML IV ONE ×2 (19:57)
[2021-10-03] MEDS ORDERED: solu-MEDROL ONE (20:01)
[2021-10-03] MEDS ORDERED: Hydromorphone 1 mg/ml Injection IV ONE (20:30)
[2021-10-03] MEDS ORDERED: Hydromorphone 1 mg/ml Injection ONE (20:32)
[2021-10-03 22:02] LABS: INFLUENZA A NEGATIVE (NEGATIVE); INFLUENZA B NEGATIVE (NEGATIVE); RESPIRATORY SYNCTIAL VIRUS NEGATIVE (Negative); SARS-CoV-2 Xpert Express NEGATIVE (NEGATIVE)
[2021-10-03] MEDS: Sodium Chloride 0.9% 1000 ML 1,000 ML IV SCH (23:34)
[2021-10-04] MEDS ORDERED: solu-MEDROL 60 MG, Sterile H2O 10 ml 2 ML IV SCH ×2
[2021-10-04] MEDS: Pepcid 20 MG VIAL IV SCH ×3 (00:39→21:31)
[2021-10-04] MEDS: Hydromorphone 1 mg/ml Injection IV PRN ×5 (00:39→23:01)
[2021-10-04] MEDS: FLAGYL 500 MG IVPB 500 MG/100 ML BAG IV SCH ×5 (00:47→23:01)
[2021-10-04 03:36] LABS: Amourphous Crystal FEW /HPF (NEGATIVE); Appearance CLOUDY (CLEAR); Bacteria RARE /HPF (NEGATIVE); Bilirubin NEGATIVE (NEGATIVE); Blood SMALL Ery/ul (0-5); Epithelial Cells FEW /HPF (FEW); Glucose 50 mg/dL (NEGATIVE); Ketones TRACE (NEGATIVE); Leukocyte Esterase MODERATE (NEGATIVE); Mucus MODERATE /HPF (NEGATIVE); Nitrite POSITIVE (NEGATIVE); Protein,Urine Dip 100 (Negative); Specific Gravity 1.027 (1.005-1.025); Urobilinogen NEGATIVE mg/dL (0-1); WBC 26-50 /HPF (0-5)
[2021-10-04] MEDS ORDERED: solu-MEDROL ONE (03:37)
[2021-10-04] MEDS ORDERED: Sterile H2O 10 ml IJ ONE ×2 (03:38→03:45)
[2021-10-04 04:55] LABS: Absolute Neutrophil Ct (ANC) 8.22 (1.4-6.9); BASOPHIL % 0.1 % (0.0-0.4); Basophil (Absolute #) 0.01 (0-0.4); Eosinophil % 0.1 % (0.00-5.0); Eosinophil (Absolute #) 0.01 (0-0.5); Hematocrit 38.1 % (35-47); Hemoglobin 11.2 gm/dl (12.0-16.0); Lymphocytes % 6.8 % (24.0-44.0); Mean Cell Volume 85.6 fl (78-100); Mean Corpuscular Hemoglobin 25.2 pg (26-32); Mean Corpuscular Hgb Concent. 29.4 g/dl (32-36); Mean Platelet Volume 12.6 fl (7.5-11.0); Monocyte (Absolute #) 0.02 (0.0-1.3); Monocytes % 0.2 % (0.0-12.0); Neutrophil % 92.8 % (36.0-66.0); Platelet Count 225 K/mm3 (150-450); Red Blood Count 4.45 M/mm3 (4.1-5.4); Red Cell Distribution Width 16.7 % (11.5-14.0); White Blood Count 8.9 K/mm3 (4.0-10.5)
[2021-10-04 05:12] LABS: ALBUMIN 4.2 g/dL (3.5-5.0); ALKALINE PHOSPHATASE 149 U/L (38-126); ANION GAP 18.2 MEQ/L (5-15); BLOOD UREA NITROGEN 16 mg/dL (7-17); CHLORIDE 103 mmol/L (98-107); Calcium 9.1 mg/dL (8.4-10.2); Creatinine 1 0.87 mg/dL (0.52-1.04); EST GLOMERULAR FILTRATION RATE > 60.0 ML/MIN; Glucose 398 mg/dL (74-106); NT PRO BNP 73.4 pg/mL (0-900); Potassium 4.5 mmol/L (3.5-5.1); SGOT/AST 26 U/L (14-36); SGPT/ALT 21 U/L (0-35); SODIUM 133 mmol/L (137-145); Total Protein 7.5 g/dL (6.3-8.2)
[2021-10-04 05:15] LABS: Carbon Dioxide 16 mmol/L (22-30)
[2021-10-04] MEDS: HUMULIN R SQ PRN ×3 (08:10→17:23)
--- NOTE | 2021-10-04 08:14 | XRAY ---
Indication: Left upper quadrant pain, diarrhea, and nausea 2 months. Ulcerative colitis. Multiple contiguous axial images obtained through the abdomen and pelvis without contrast. Comparison: August 11, 2021. Lung bases again demonstrates dependent atelectasis. No infiltrate or effusion. Heart is not enlarged. Noncontrasted stomach and bowel loops are nonobstructed. Normal appendix. Colon again demonstrates distal transverse, descending, and lesser degree sigmoid minimal bowel wall thickening with minimal pericolonic stranding favoring colitis. No free fluid/air. Again tiny gallstones/gravel and bilateral renal cysts. Remaining liver, gallbladder, pancreas, spleen, adrenal glands, kidneys, ureters, bladder, and uterus are unremarkable for noncontrast exam. Again minimal aortoiliac calcifications without AAA. Osseous structures intact again with minimal degenerative changes throughout the spine. Stable small fatty left inguinal hernia. Impression: 1. Again mild left hemicolon colitis. No complications. 2. Again tiny gallstones/gravel, bilateral renal cysts, small fatty left inguinal hernia, and chronic bony findings. Comment: Preliminary interpretation made by [facility]. No critical discrepancy.
[2021-10-04] MEDS ORDERED: Ventolin Hfa MDI IH PRN (09:16)
[2021-10-04] MEDS ORDERED: ZOFRAN ODT 4 MG PO PRN (09:16)
[2021-10-04] MEDS ORDERED: Robaxin 500 MG PO PRN (09:16)
[2021-10-04] MEDS ORDERED: NON-FORMULARY ITEM (Sumatriptan Succinate [Imitrex 50 Mg] 50 MG Tablet) PO PRN (09:16)
[2021-10-04] MEDS ORDERED: VENTOLIN COMMON CANISTER IH PRN (09:26)
[2021-10-04] MEDS ORDERED: MEDICATION INTERVENTION MC PRN (09:39)
[2021-10-04] MEDS ORDERED: MEDICATION INTERVENTION MC SCH (09:45)
[2021-10-04] MEDS ORDERED: MESALAMINE 500 MG PO SCH (10:00)
[2021-10-04] MEDS ORDERED: NON-FORMULARY ITEM (Duloxetine Hcl [Duloxetine Hcl] 60 MG Capsule.Dr) PO SCH (10:00)
[2021-10-04] MEDS ORDERED: NON-FORMULARY ITEM (Atorvastatin Calcium [Atorvastatin Calcium] 10 MG Tablet) PO SCH (10:00)
[2021-10-04] MEDS ORDERED: NON-FORMULARY ITEM (Metformin Hcl 1000 Mg [Glucophage 1000 Mg] 1,000 MG Tablet) PO SCH (10:00)
[2021-10-04] MEDS ORDERED: NON-FORMULARY ITEM (L.Acidoph,Paracasei, B.Lactis [Probiotic] 1 EACH Capsule) PO SCH (10:00)
[2021-10-04] MEDS ORDERED: NON-FORMULARY ITEM (Omeprazole 20 Mg [Prilosec 20 Mg] 20 MG Capsule.Dr) PO SCH (10:00)
[2021-10-04] MEDS ORDERED: NON-FORMULARY ITEM (Paroxetine Hcl [Paxil] 10 MG Tablet) PO SCH (10:00)
[2021-10-04] MEDS: LEVOFLOXACIN 750MG/150ML D5W 750 MG/150 ML BAG IV SCH (10:18)
[2021-10-04] MEDS: Sodium Chloride 0.9% 1000 ML 1,000 ML IV SCH ×2 (10:18→21:31)
[2021-10-04] MEDS: Acidophilus TABLET PO SCH (10:19)
[2021-10-04] MEDS: ANTIVERT 25 MG PO PRN (10:19)
[2021-10-04] MEDS: Cymbalta 30 MG Capsule PO SCH (10:19)
[2021-10-04] MEDS: Glucophage 500 MG PO SCH ×2 (10:19→17:22)
[2021-10-04] MEDS: Paxil 20 MG PO SCH (10:20)
[2021-10-04] MEDS: Toprol Xl 100 MG PO SCH (10:20)
[2021-10-04] MEDS: Protonix 40MG Tablet PO SCH (10:20)
[2021-10-04] MEDS: Zocor 10MG PO SCH (10:20)
[2021-10-04] MEDS: SYNTHROID 25 MCG PO SCH (10:20)
[2021-10-04] MEDS: Imdur 60MG PO SCH (10:20)
[2021-10-04] MEDS ORDERED: NON-FORMULARY ITEM (Insulin Aspart [Novolog] 100 UNIT/ML Vial) SQ SCH (11:30)
[2021-10-04] MEDS: HUMALOG SQ SCH ×2 (12:39→17:23)
[2021-10-04] MEDS: solu-MEDROL IV SCH ×3 (12:41→23:01)
[2021-10-04] MEDS: Zofran 4 MG/2 ML VIAL IV PRN ×2 (16:50→23:01)
[2021-10-04] MEDS ORDERED: NON-FORMULARY ITEM (Insulin Glargine,Hum.Rec.Anlog [Basaglar Kwikpen U-100] 100 UNIT/ML In SQ SCH (22:00)
[2021-10-04] MEDS ORDERED: Lantus Insulin SQ SCH (22:00)
[2021-10-05] MEDS: Hydromorphone 1 mg/ml Injection IV PRN ×2 (03:07→11:09)
[2021-10-05] MEDS: FLAGYL 500 MG IVPB 500 MG/100 ML BAG IV SCH ×3 (05:09→13:05)
[2021-10-05] MEDS: solu-MEDROL IV SCH ×2 (05:09→12:14)
[2021-10-05] MEDS: Zofran 4 MG/2 ML VIAL IV PRN (05:10)
[2021-10-05] MEDS: Sodium Chloride 0.9% 1000 ML 1,000 ML IV SCH (06:25)
[2021-10-05 06:31] LABS: Absolute Neutrophil Ct (ANC) 13.89 (1.4-6.9); BASOPHIL % 0.1 % (0.0-0.4); Basophil (Absolute #) 0.01 (0-0.4); Eosinophil (Absolute #) 0 (0-0.5); Hematocrit 30.8 % (35-47); Hemoglobin 8.9 gm/dl (12.0-16.0); Lymphocyte (Absolute #) 0.44 (1.0-4.6); Mean Cell Volume 87.7 fl (78-100); Mean Corpuscular Hemoglobin 25.4 pg (26-32); Mean Corpuscular Hgb Concent. 28.9 g/dl (32-36); Mean Platelet Volume 12.2 fl (7.5-11.0); Monocyte (Absolute #) 0.16 (0.0-1.3); Monocytes % 1.1 % (0.0-12.0); Neutrophil % 95.8 % (36.0-66.0); Platelet Count 154 K/mm3 (150-450); Red Blood Count 3.51 M/mm3 (4.1-5.4); Red Cell Distribution Width 16.3 % (11.5-14.0); White Blood Count 14.5 K/mm3 (4.0-10.5)
[2021-10-05 07:08] LABS: ALBUMIN 3.4 g/dL (3.5-5.0); ALKALINE PHOSPHATASE 98 U/L (38-126); ANION GAP 14.8 MEQ/L (5-15); BLOOD UREA NITROGEN 23 mg/dL (7-17); CHLORIDE 104 mmol/L (98-107); Calcium 8.2 mg/dL (8.4-10.2); Carbon Dioxide 19 mmol/L (22-30); Creatinine 1 0.83 mg/dL (0.52-1.04); EST GLOMERULAR FILTRATION RATE > 60.0 ML/MIN; Glucose 310 mg/dL (74-106); PROCALCITONIN 0.064 ng/mL (0.030-0.080); Potassium 4.1 mmol/L (3.5-5.1); SGOT/AST 18 U/L (14-36); SGPT/ALT 17 U/L (0-35); SODIUM 134 mmol/L (137-145); Total Protein 6.4 g/dL (6.3-8.2)
[2021-10-05] MEDS: Glucophage 500 MG PO SCH (08:05)
[2021-10-05] MEDS: HUMALOG SQ SCH ×2 (08:05→12:14)
[2021-10-05 10:58] LABS: Slide Review 1 YES
[2021-10-05] MEDS: ANTIVERT 25 MG PO PRN (10:59)
[2021-10-05] MEDS: Cymbalta 30 MG Capsule PO SCH (10:59)
[2021-10-05] MEDS: Paxil 20 MG PO SCH (10:59)
[2021-10-05] MEDS: SYNTHROID 25 MCG PO SCH (10:59)
[2021-10-05] MEDS: Imdur 60MG PO SCH (11:00)
[2021-10-05] MEDS: Pepcid 20 MG VIAL IV SCH (11:00)
[2021-10-05] MEDS: Acidophilus TABLET PO SCH (11:00)
[2021-10-05] MEDS: Protonix 40MG Tablet PO SCH (11:00)
[2021-10-05] MEDS: Zocor 10MG PO SCH (11:00)
[2021-10-05] MEDS: Toprol Xl 100 MG PO SCH (11:00)
[2021-10-05] MEDS: LEVOFLOXACIN 750MG/150ML D5W 750 MG/150 ML BAG IV SCH (11:09)
[2021-10-05 14:37] VITALS: BP 130/55; PULSE 85; O2SAT 97
[2021-10-07 15:08] LABS: Adenovirus F40/41 Not Detected (Not Detected); Astrovirus Not Detected (Not Detected); Campylobacter Not Detected (Not Detected); Cryptosporidium Not Detected (Not Detected); Cyclospora cayetanensis Not Detected (Not Detected); Entamoeba histolytica Not Detected (Not Detected); Enteroaggregative E coli Not Detected (Not Detected); Giardia lamblia Not Detected (Not Detected); Norovirus GI/GII Not Detected (Not Detected); Plesiomonas shigelloides Not Detected (Not Detected); Rotavirus A Not Detected (Not Detected); Salmonella Not Detected (Not Detected); Shigella/Enterinvasive E coli Not Detected (Not Detected); Vibrio Not Detected (Not Detected); Vibrio cholerae Not Detected (Not Detected); Yersinia enterocolitica Not Detected (Not Detected)
[2021-10-07 15:57] LABS: Sapovirus Not Detected (Not Detected)
== END 2021-10-05 16:10 | disposition home or self-care (01) ==
LOC: ED 18:18 → MED SURG 22:40
PROVIDERS: ADMIT Family Medicine; ATTEND Family Medicine
DX: K51.90 Ulcerative colitis, unspecified, without complications (principal); R07.89 Other chest pain; R00.0 Tachycardia, unspecified; E11.9 Type 2 diabetes mellitus without complications; I25.10 Atherosclerotic heart disease of native coronary artery without angina pectoris; E78.00 Pure hypercholesterolemia, unspecified; I10 Essential (primary) hypertension; I25.2 Old myocardial infarction; Z20.828 Contact with and (suspected) exposure to other viral communicable diseases; Z79.899 Other long term (current) drug therapy
CPT/HCPCS: 0097U; 0241U; 36000; 36415; 74176; 80053; 81001; 82150; 82947; 83605; 83690; 83880; 84145; 84484; 85025; 87077; 87086; 87186; 93005; 93268; 94760; 96360; 96374; 96375; 99285; G0328; G0378; 82274; J1170; J1815; J1817; J1956; J2405; J2930; A9270-GY

== ENCOUNTER 2022-04-15 16:21 | Observation (INO) | payer MEDICARE ==
[2022-04-15 16:59] LABS: Absolute Neutrophil Ct (ANC) 5.21 x10^3/uL (1.4-6.9); Basophil (Absolute #) 0.04 x10^3/uL (0-0.4); Eosinophil % 5.1 % (0.00-5.0); Eosinophil (Absolute #) 0.38 x10^3/uL (0-0.5); Hematocrit 38.1 % (35-47); Hemoglobin 12.2 g/dL (12.0-16.0); Lymphocyte (Absolute #) 1.19 x10^3/uL (1.0-4.6); Mean Cell Volume 88.6 fL (78-100); Mean Corpuscular Hemoglobin 28.4 pg (26-32); Mean Platelet Volume 12.8 fL (7.5-11.0); Monocytes % 8.1 % (0.0-12.0); Neutrophil % 69.9 % (36.0-66.0); Platelet Count 207 x10^3/uL (150-450); Red Cell Distribution Width 14.7 % (11.5-14.0); White Blood Count 7.5 x10^3/uL (4.0-10.5)
--- NOTE | 2022-04-15 17:04 | XRAY ---
Indication: Chest pain. Comparison: July 02, 2021. Portable chest remains clear again with mild right hemidiaphragm elevation. Heart not enlarged. Bony thorax intact again with osteopenia and degenerative changes. Impression: Continued nonacute chest with chronic features.
[2022-04-15 17:16] LABS: ALBUMIN 3.1 g/dL (3.5-5.0); ALKALINE PHOSPHATASE 180 U/L (38-126); ANION GAP 15.6 MEQ/L (5-15); BLOOD UREA NITROGEN 8 mg/dL (7-17); CHLORIDE 106 mmol/L (98-107); Carbon Dioxide 18 mmol/L (22-30); Creatinine 1 0.59 mg/dL (0.52-1.04); EST GLOMERULAR FILTRATION RATE > 60.0 ML/MIN; Glucose 349 mg/dL (74-106); NT PRO BNP 633 pg/mL (0-900); Potassium 4.1 mmol/L (3.5-5.1); SGOT/AST 34 U/L (14-36); SGPT/ALT 18 U/L (0-35); SODIUM 135 mmol/L (137-145); Total Protein 6.3 g/dL (6.3-8.2)
--- NOTE | 2022-04-15 18:14 | ERPHSYRPT ---
- History of Present Illness Time Seen by Provider: 04/15/22 16:30 Historian: patient Exam Limitations: no limitations Patient Subjective Stated Complaint: pt here for chest pain and sob,pain to center of chest, she states she moved on wednesday and has not felt well since ,and that she missed placed her meds and has been out since wednesday, was seen wednesday at [facility] for same thing Triage Nursing Assessment: pt walked in, resp distress, face mask in place , skin warm, moist, pink , chest clear, she has 2nd toe amputated on right foot, h as sore on left 3rd digit Physician History: Patient is a 61-year-old female presents to emergency department for evaluation of chest pain or shortness of breath. Patient has a history of COPD. Patient believes she may be experiencing a COPD exacerbation. Patient states she was hypoxic at home. Patient states she feels better when a fan is blowing on her. No hematuria or dysuria. Patient states she develops frequent UTIs. No associated nausea vomiting or diaphoresis. Patient states she is got a history of blood clots. Patient has been off of her blood thinner for the past 5 days. Symptoms are constant. Symptoms are moderate in intensity. No specific wors ening improving factors. Patient voices no other complaints or concerns at this time. Portions of this note were created with voice recognition technology. There may be grammatical, spelling, punctuation or sound alike errors Timing/Duration: today Activities at Onset: none Quality: aching Location: substernal Chest Pain Radiation: no radiation Severity of Pain-Max: moderate Severity of Pain-Current: mild Modifying Factors: Improves With: nothing Associated Symptoms: denies symptoms Prior Chest Pain/Cardiac Workup: no prior chest pain Nitro Today/Relief: no nitro taken today Aspirin Treatment Today: no aspirin today Allergies/Adverse Reactions: cyclobenzaprine HCl [From Flexeril] Allergy (Mild, Verified 04/15/22 16:34) Rash metoclopramide [From Reglan] Allergy (Mild, Verified 04/15/22 16:34) Rash Sulfa (Sulfonamide Antibiotics) [Sulfa(Sulfonamide Antibiotics)] Allergy (Mild, Verified 04/15/22 16:34) Rash adhesive Allergy (Verified 04/15/22 16:34) Rash nalbuphine HCl [From Nubain] Adverse Reaction (Intermediate, Verified 04/15/22 16:34) Stomach Cramps patient states she had stomach "burning" and that her legs felt like "rubber bands" ciprofloxacin [From Cipro] Adverse Reaction (Mild, Verified 04/15/22 16:34) Rash meperidine HCl [From Demerol] Adverse Reaction (Mild, Verified 04/15/22 16:34) Vomiting morphine Adverse Reaction (Verified 04/15/22 16:34) ADDICTION PT STATES SHE TOOK MORPHINE YEARS AGO AND IT WAS HARD TO GET OFF OF IT AND DOES NOT WANT IT Home Medications: Duloxetine HCl 60 mg PO DAILY 03/17/16 [History] Mesalamine [Pentasa] 500 mg PO BID 03/17/16 [History] Metformin HCl 1000 mg [Glucophage 1000 MG] 1,000 mg PO BID 03/17/16 [History] Methocarbamol [Robaxin] 1,000 mg PO QIDPRN PRN 03/17/16 [History] Omeprazole 20 MG [Prilosec 20 mg] 20 mg PO BID 03/17/16 [History] Atorvastatin Calcium 10 mg PO DAILY 01/25/18 [History] Insulin Glargine,Hum.rec.anlog [Basaglar Kwikpen U-100] 38 unit SQ HS 12/05/19 [History] Meclizine HCl 25 mg [Antivert 25 mg] 25 mg PO DAILY PRN 12/05/19 [History] Insulin Aspart [Novolog] 44 unit SQ AC 08/02/20 [History] Isosorbide Mononitrate 60 mg [Imdur 60MG] 120 mg PO DAILY 12/31/20 [History] Levothyroxine Sodium 25 Mcg [Synthroid 25 Mcg] 25 mcg PO DAILY 12/31/20 [History] Metoprolol Succinate 100 mg [Toprol Xl 100 MG] 100 mg PO DAILY 12/31/20 [History] Albuterol Sulfate [Albuterol Sulfate Hfa] 2 puffs IH Q4HPRN PRN 01/18/21 [ History] PARoxetine HCl [Paxil] 10 mg PO DAILY 01/18/21 [History] L.acidoph,Paracasei, B.lactis [Probiotic] 1 cap PO DAILY 06/11/21 [History] Hx Tetanus, Diphtheria Vaccination/Date Given: No Hx Influenza Vaccination/Date Given: No Hx Pneumococcal Vaccination/Date Given: No Immunizations Up to Date: Yes Travel Risk - International Travel Have you traveled outside of the country in past 3 weeks: No - Coronavirus Screening Are you exhibiting any of the following symptoms?: Yes Symptoms: Shortness of Breath Close contact with a COVID-19 positive Pt in past 14-21 Days: No - Vaccine Status Have you recieved a Covid-19 vaccination: No - Review of Systems Constitutional: No Symptoms, No Fever, No Chills Eyes: No Symptoms Ears, Nose, & Throat: No Symptoms Respiratory: No Symptoms, No Cough, No Dyspnea Cardiac: No Symptoms, No Chest Pain, No Edema, No Syncope Abdominal/Gastrointestinal: No Symptoms, No Abdominal Pain, No Nausea, No Vomi ting, No Diarrhea Genitourinary Symptoms: No Symptoms, No Dysuria Musculoskeletal: No Symptoms, No Back Pain, No Neck Pain Skin: No Symptoms, No Rash Neurological: No Symptoms, No Dizziness, No Focal Weakness, No Sensory Changes Psychological: No Symptoms Endocrine: No Symptoms Hematologic/Lymphatic: No Symptoms Immunological/Allergic: No Symptoms All Other Systems: Reviewed and Negative - Past Medical History Pertinent Past Medical History: Yes Neurological History: Migraines ENT History: Cataracts Cardiac History: Coronary Artery Disease, High Cholesterol, Hypertension, Myocardial Infarction (IA) Respiratory History: Asthma, Bronchitis, COPD, Sleep Apnea Endocrine Medical History: Diabetes Type II Musculoskeletal History: Arthritis, Degenerative Disk Disease, Fibromyalgia, Osteoarthritis GI Medical History: Crohns Disease, Diverticulitis, GERD, Irritable Bowel History: No Pertinent History Psycho-Social History: Anxiety, Depression Female Reproductive Disorders: No Pertinent History Other Medical History: HX UTI, HX Yeast Infection, Neuropathy, degenerative joint disease - Past Surgical History Past Surgical History: Yes Neuro Surgical History: No Pertinent History Cardiac: Cardiac Catheterization Respiratory: No Pertinent History Gastrointestinal: No Pertinent History Genitourinary: No Pertinent History Musculoskeletal: No Pertinent History Female Surgical History: Dilation & Curettage, Section, Tubal Ligation Other Surgical History: KIDNEY STONE REMOVAL, right 2nd toe amputated 2021. heart cath x3, no stents - Social History Smoking Status: Never smoker How long have you smoked: years Exposure to second hand smoke: No Alcohol Use: None Drug Use: none Patient Lives Alone: No Significant Family History: no pertinent family hx, diabetes, hypertension - Nursing Vital Signs Nursing Vital Signs: Initial Vital Signs Temperature 99.2 F 04/15/22 16:22 Pulse Rate 108 H 04/15/22 16:22 Respiratory Rate 28 H 04/15/22 16:22 Blood Pressure 169/109 04/15/22 16:22 O2 Sat by Pulse Oximetry 98 04/15/22 16:22 Pain Scale Pain Intensity 5 - Physical Exam General Appearance: no apparent distress, alert Eye Exam: PERRL/EOMI, eyes nml inspection Ears, Nose, Throat Exam: normal ENT inspection, moist mucous membranes Neck Exam: normal inspection, non-tender, supple, full range of motion Respiratory Exam: normal breath sounds, lungs clear, airway intact, No respiratory distress Cardiovascular Exam: regular rate/rhythm, normal heart sounds Gastrointestinal/Abdomen Exam: soft, No tenderness, No mass Back Exam: normal inspection, No CVA tenderness, No vertebral tenderness Extremity Exam: normal inspection, normal range of motion Neurologic Exam: alert, oriented x 3, cooperative, normal mood/affect, sensation nml, No motor deficits Skin Exam: normal color, warm, dry SpO2 Interpretation: normal SpO2: 96 O2 Delivery: Room Air - Course Nursing assessment & vital signs reviewed: Yes EKG Interpreted by Me: Sinus Tach (102), NORMAL AXIS, NORMAL INTERVALS - Radiology Exams Chest X-ray Interpretation: Teleradiologist Report (Nonacute chest with chronic features) - CT Exams Chest CT Interpretation: Tele-radiologist Report (New nonoccluding right upper lobe PE. Stable fatty liver and left renal cyst) Ordered Tests: Active Orders 24 hr Category Date Time Status Newspaper Peddler STAT Care 04/15/22 16:45 Active EKG-ER Only STAT Care 04/15/22 16:44 Active IV Insertion STAT Care 04/15/22 16:44 Active Pulse Oximetry (ED) STAT Care 04/15/22 16:44 Active CHEST 1 VIEW (PORTABLE) Stat Exams 04/15/22 16:45 Completed CHEST WITH CONTRAST [CT] Stat Exams 04/15/22 20:21 Taken BLOOD CULTURE Stat Lab 04/15/22 19:15 Received CBC W DIFF Stat Lab 04/15/22 16:45 Completed CMP Stat Lab 04/15/22 16:45 Completed CULTURE,URINE Stat Lab 04/15/22 21:29 Received NT PRO BNP Stat Lab 04/15/22 16:45 Completed TROPONIN Q3H Lab 04/15/22 16:45 Completed TROPONIN Q3H Lab 04/15/22 19:15 Completed TROPONIN Q3H Lab 04/15/22 22:45 Ordered TROPONIN Q3H Lab 04/16/22 01:45 Ordered TROPONIN Q3H Lab 04/16/22 04:45 Ordered UA W/RFX CULTURE Stat Lab 04/15/22 21:29 Completed Respiratory Therapy Assessment DAILY RT 04/15/22 18:57 Active Transfer Order Routine Transfer 04/15/22 Ordered Medication Summary Discontinued Medications Generic Name Dose Route Start Last Admin Trade Name Freq PRN Reason Stop Dose Admin Albuterol/Ipratropium 3 ml 04/15/22 18:46 04/15/22 19:05 Ipratropium/Albuterol Sulfate 3 Ml Ampul.Neb IH 04/15/22 18:47 3 ml STAT ONE Administration Albuterol/Ipratropium Confirm 04/15/22 19:01 Ipratropium/Albuterol Sulfate 3 Ml Ampul.Neb Administered 04/15/22 19:02 Dose 3 ml IH .STK-MED ONE Methylprednisolone Sodium 0 mg 04/15/22 18:46 04/15/22 18:56 Succinate 125 mg/ Sterile IV 04/15/22 18:47 125 mg Water 2 ml STAT ONE Administration Enoxaparin Sodium 120 mg 04/15/22 21:59 04/15/22 22:03 Enoxaparin Sodium 120 Mg/0.8 Ml Syringe SQ 04/15/22 22:00 120 mg STAT STA Administration Enoxaparin Sodium Confirm 04/15/22 22:02 Enoxaparin Sodium 120 Mg/0.8 Ml Syringe Administered 04/15/22 22:03 Dose 120 mg SQ .STK-MED ONE Ceftriaxone Sodium/Dextrose 2 g in 50 mls @ 100 mls/hr 04/15/22 18:48 04/15/22 19:32 Rocephin 2 Gm-D5w 50ml Bag IV 04/15/22 19:17 Infused STAT STA Infusion Azithromycin 500 mg in 250 mls @ 250 mls/hr 04/15/22 18:48 04/15/22 21:30 Zithromax 500 Mg/ 250 Ml Nacl Premix IV 04/15/22 19:47 Infused STAT STA Infusion Azithromycin Confirm 04/15/22 18:52 Zithromax 500 Mg/ 250 Ml Nacl Premix Administered 04/15/22 18:53 Dose 500 mg in 250 mls @ ud IV .STK-MED ONE Ceftriaxone Sodium/Dextrose Confirm 04/15/22 18:52 Rocephin 2 Gm-D5w 50ml Bag Administered 04/15/22 18:53 Dose 2 g in 50 mls @ ud IV .STK-MED ONE Methylprednisolone Sodium Succinate Confirm 04/15/22 18:52 Methylprednis Sod Succ 125 Mg/2 Ml Vial Administered 04/15/22 18:53 Dose 125 mg .ROUTE .STK-MED ONE Sterile Water Confirm 04/15/22 18:53 Water For Injection,Sterile 10 Ml Vial Administered 04/15/22 18:54 Dose 10 ml IJ .STK-MED ONE Lab/Rad Data: Laboratory Result Diagrams 04/15/22 16:45 04/15/22 16:45 Laboratory Results 04/15/22 04/15/22 04/15/22 Range/Units 21:29 19:15 19:15 WBC (4.0-10.5) x10^3/uL RBC (4.1-5.4) x10^6/uL Hgb (12.0-16.0) g/dL Hct (35-47) % MCV (78-100) fL MCH (26-32) pg MCHC (32-36) g/dL RDW (11.5-14.0) % Plt Count (150-450) x10^3/uL MPV (7.5-11.0) fL Gran % (36.0-66.0) % Immature Gran % (Auto) (0.00-0.4) % Nucleat RBC Rel Count (0.00-0.1) % Eos # (Auto) (0-0.5) x10^3/uL Immature Gran # (Auto) (0.00-0.03) x10^3u/L Absolute Lymphs (auto) (1.0-4.6) x10^3/uL Absolute Monos (auto) (0.0-1.3) x10^3/uL Absolute Nucleated RBC (0.00-0.01) x10^3u/L Lymphocytes % (24.0-44.0) % Monocytes % (0.0-12.0) % Eosinophils % (0.00-5.0) % Basophils % (0.0-0.4) % Absolute Granulocytes (1.4-6.9) x10^3/uL Basophils # (0-0.4) x10^3/uL Sodium (137-145) mmol/L Potassium (3.5-5.1) mmol/L Chloride (98-107) mmol/L Carbon Dioxide (22-30) mmol/L Anion Gap (5-15) MEQ/L BUN (7-17) mg/dL Creatinine (0.52-1.04) mg/dL Estimated GFR ML/MIN Glucose (74-106) mg/dL Calcium (8.4-10.2) mg/dL Total Bilirubin (0.2-1.3) mg/dL AST (14-36) U/L ALT (0-35) U/L Alkaline Phosphatase (38-126) U/L Troponin I 0.014 (0.000-0.034) ng/mL NT-Pro-B Natriuret Pep (0-900) pg/mL Serum Total Protein (6.3-8.2) g/dL Albumin (3.5-5.0) g/dL Urinalys Dipstick Clnc MAIN LAB Urine Color YELLOW (YELLOW) Urine Appearance CLEAR (CLEAR) Urine pH 5.5 (5-6) Ur Specific [place] 1.020 (1.005-1.025) POC Urine Protein Conf TRACE (Negative) Urine Ketones TRACE (NEGATIVE) Urine Nitrite POSITIVE (NEGATIVE) Urine Bilirubin NEGATIVE (NEGATIVE) Urine Urobilinogen 0.2 (0-1) mg/dL Urine Leukocytes SMALL (NEGATIVE) Urine WBC (Auto) 26-50 (0-5) /HPF Urine RBC (Auto) 3-5 (0-2) /HPF U Epithel Cells (Auto) RARE (FEW) /HPF Urine Bacteria (Auto) PACKED (NEGATIVE) /HPF Urine RBC TRACE-INTACT (0-5) Jeff/ul Urine Mucus (Auto) SLIGHT (NEGATIVE) /HPF Ur Culture Indicated? YES Urine Glucose 250 (NEGATIVE) mg/dL Influenza Type A Ag NEGATIVE (NEGATIVE) Influenza Type B Ag NEGATIVE (NEGATIVE) RSV (PCR) NEGATIVE (Negative) SARS-CoV-2 (PCR) NEGATIVE (NEGATIVE) 07/06/22 07/06/22 07/06/22 Range/Units 16:45 16:45 16:45 WBC 7.5 (4.0-10.5) x10^3/uL RBC 4.30 (4.1-5.4) x10^6/uL Hgb 12.2 (12.0-16.0) g/dL Hct 38.1 (35-47) % MCV 88.6 (78-100) fL MCH 28.4 (26-32) pg MCHC 32.0 (32-36) g/dL RDW 14.7 H (11.5-14.0) % Plt Count 207 (150-450) x10^3/uL MPV 12.8 H (7.5-11.0) fL Gran % 69.9 H (36.0-66.0) % Immature Gran % (Auto) 0.4 (0.00-0.4) % Nucleat RBC Rel Count 0.0 (0.00-0.1) % Eos # (Auto) 0.38 (0-0.5) x10^3/uL Immature Gran # (Auto) 0.03 (0.00-0.03) x10^3u/L Absolute Lymphs (auto) 1.19 (1.0-4.6) x10^3/uL Absolute Monos (auto) 0.60 (0.0-1.3) x10^3/uL Absolute Nucleated RBC 0.00 (0.00-0.01) x10^3u/L Lymphocytes % 16.0 L (24.0-44.0) % Monocytes % 8.1 (0.0-12.0) % Eosinophils % 5.1 H (0.00-5.0) % Basophils % 0.5 (0.0-0.4) % Absolute Granulocytes 5.21 (1.4-6.9) x10^3/uL Basophils # 0.04 (0-0.4) x10^3/uL Sodium 135 L (137-145) mmol/L Potassium 4.1 (3.5-5.1) mmol/L Chloride 106 (98-107) mmol/L Carbon Dioxide 18 L (22-30) mmol/L Anion Gap 15.6 H (5-15) MEQ/L BUN 8 (7-17) mg/dL Creatinine 0.59 (0.52-1.04) mg/dL Estimated GFR > 60.0 ML/MIN Glucose 349 H (74-106) mg/dL Calcium 9.0 (8.4-10.2) mg/dL Total Bilirubin 0.30 (0.2-1.3) mg/dL AST 34 (14-36) U/L ALT 18 (0-35) U/L Alkaline Phosphatase 180 H (38-126) U/L Troponin I < 0.012 (0.000-0.034) ng/mL NT-Pro-B Natriuret Pep 633 (0-900) pg/mL Serum Total Protein 6.3 (6.3-8.2) g/dL Albumin 3.1 L (3.5-5.0) g/dL Urinalys Dipstick Clnc Urine Color (YELLOW) Urine Appearance (CLEAR) Urine pH (5-6) Ur Specific [place] (1.005-1.025) POC Urine Protein Conf (Negative) Urine Ketones (NEGATIVE) Urine Nitrite (NEGATIVE) Urine Bilirubin (NEGATIVE) Urine Urobilinogen (0-1) mg/dL Urine Leukocytes (NEGATIVE) Urine WBC (Auto) (0-5) /HPF Urine RBC (Auto) (0-2) /HPF U Epithel Cells (Auto) (FEW) /HPF Urine Bacteria (Auto) (NEGATIVE) /HPF Urine RBC (0-5) Jeff/ul Urine Mucus (Auto) (NEGATIVE) /HPF Ur Culture Indicated? Urine Glucose (NEGATIVE) mg/dL Influenza Type A Ag (NEGATIVE) Influenza Type B Ag (NEGATIVE) RSV (PCR) (Negative) SARS-CoV-2 (PCR) (NEGATIVE) - Progress Progress: improved Air Movement: good Progress Note: Patient reassessed. She feels much better. Patient received albuterol nebulizer treatment. Steroids administered. Antibiotics administered which will cover both COPD exacerbation and urinary tract infection. CTA chest reveals a pulmonary embolus. Patient received weight-based Lovenox. Patient was hypoxic. Patient on 2 L nasal cannula. Patient resting comfortably. She voices no other complaints concerns at this time. Case discussed with Dr. Wahl covering Dr. Holguin who accepts admission to observation. Plan of care discussed with patient. She agrees to admission at [facility] for further evaluation and treatment. Portions of this note were created with voice recognition technology. There may be grammatical, spelling, punctuation or sound alike errors 04/15/22 22:21 Blood Culture(s) Obtained: Yes Antibiotics given: Yes Discussed with : Slime Will see patient in: hospital (observation) Counseled pt/family regarding: lab results, diagnosis, rad results - Departure Departure Disposition: Observation Clinical Impression: Hypoxia, COPD exacerbation, Chest pain, Hyperglycemia, UTI (urinary tract infection), Pulmonary embolus, Fatty liver, Renal cyst Condition: Stable Critical Care Time: No Referrals: CALVIN HOLGUIN [Primary Care Provider] - Follow up/PCP as directed Instructions: Chronic Obstructive Pulmonary Disease
[2022-04-15] MEDS ORDERED: DUONEB 0.5-3 MG/3 ml Neb IH ONE ×2 (18:46→19:01)
[2022-04-15] MEDS ORDERED: solu-MEDROL 125 MG, Sterile H2O 10 ml 2 ML IV ONE ×2 (18:46)
[2022-04-15] MEDS ORDERED: Zithromax 500 MG/ 250 ML NaCl Premix 500 MG/250 ML IVPB IV STA (18:48)
[2022-04-15] MEDS ORDERED: ROCEPHIN 2 Gm-D5w 50ML BAG** 2 G/50 ML IVPB IV STA (18:48)
[2022-04-15] MEDS ORDERED: ROCEPHIN 2 Gm-D5w 50ML BAG** 2 G/50 ML IVPB IV ONE (18:52)
[2022-04-15] MEDS ORDERED: solu-MEDROL ONE (18:52)
[2022-04-15] MEDS ORDERED: Zithromax 500 MG/ 250 ML NaCl Premix 500 MG/250 ML IVPB IV ONE (18:52)
[2022-04-15] MEDS ORDERED: Sterile H2O 10 ml IJ ONE (18:53)
[2022-04-15 20:03] LABS: INFLUENZA A NEGATIVE (NEGATIVE); INFLUENZA B NEGATIVE (NEGATIVE); RESPIRATORY SYNCTIAL VIRUS NEGATIVE (Negative); SARS-CoV-2 Xpert Express NEGATIVE (NEGATIVE)
[2022-04-15 21:37] LABS: Bacteria PACKED /HPF (NEGATIVE); Epithelial Cells RARE /HPF (FEW); Mucus SLIGHT /HPF (NEGATIVE); WBC 26-50 /HPF (0-5)
[2022-04-15 21:41] LABS: Appearance CLEAR (CLEAR); Bilirubin NEGATIVE (NEGATIVE); Glucose 250 mg/dL (NEGATIVE); Ketones TRACE (NEGATIVE); RBC TRACE-INTACT Ery/ul (0-5)
[2022-04-15 21:42] LABS: Dipstick done @ ? MAIN LAB; Nitrite POSITIVE (NEGATIVE); Ph 5.5 (5-6); Protein,Urine Dip TRACE (Negative); Urine Cultured Indicated? YES; Urobilinogen 0.2 mg/dL (0-1)
[2022-04-15] MEDS ORDERED: ENOXAPARIN SODIUM SQ STA (21:59)
[2022-04-15] MEDS ORDERED: ENOXAPARIN SODIUM SQ ONE (22:02)
[2022-04-15] MEDS ORDERED: ENOXAPARIN SODIUM SQ SCH (23:18)
[2022-04-15] MEDS ORDERED: PROVENTIL Solution 2.5 MG/0.5 ML IH ONE (23:44)
[2022-04-15] MEDS: PROVENTIL 2.5 MG/3 ML NEB IH SCH (23:49)
[2022-04-16] MEDS ORDERED: solu-MEDROL ONE ×2 (00:18→05:47)
[2022-04-16] MEDS ORDERED: Sterile H2O 10 ml IJ ONE (00:18)
[2022-04-16] MEDS: solu-MEDROL 60 MG, Sterile H2O 10 ml 2 ML IV SCH ×4 (00:27→06:17)
[2022-04-16 02:54] LABS: Hematocrit 39.1 % (35-47); Hemoglobin 12.1 g/dL (12.0-16.0); Mean Cell Volume 90.7 fL (78-100); Mean Corpuscular Hemoglobin 28.1 pg (26-32); Mean Corpuscular Hgb Concent. 30.9 g/dL (32-36); Mean Platelet Volume 12.2 fL (7.5-11.0); Platelet Count 168 x10^3/uL (150-450); Red Blood Count 4.31 x10^6/uL (4.1-5.4); Red Cell Distribution Width 14.6 % (11.5-14.0); White Blood Count 7.4 x10^3/uL (4.0-10.5)
[2022-04-16] MEDS ORDERED: PROVENTIL Solution 2.5 MG/0.5 ML IH ONE (03:03)
[2022-04-16] MEDS ORDERED: PROVENTIL 2.5 MG/3 ML NEB IH PRN (03:11)
[2022-04-16 03:43] LABS: ALBUMIN 3.4 g/dL (3.5-5.0); ALKALINE PHOSPHATASE 184 U/L (38-126); ANION GAP 19.1 MEQ/L (5-15); BLOOD UREA NITROGEN 11 mg/dL (7-17); CHLORIDE 103 mmol/L (98-107); Calcium 8.6 mg/dL (8.4-10.2); Creatinine 1 0.61 mg/dL (0.52-1.04); EST GLOMERULAR FILTRATION RATE > 60.0 ML/MIN; Potassium 4.2 mmol/L (3.5-5.1); SGOT/AST 25 U/L (14-36); SGPT/ALT 17 U/L (0-35); SODIUM 133 mmol/L (137-145); Total Protein 6.7 g/dL (6.3-8.2)
[2022-04-16 03:53] LABS: Glucose 555 mg/dL (74-106)
[2022-04-16 03:54] LABS: Carbon Dioxide 16 mmol/L (22-30)
[2022-04-16] MEDS ORDERED: HUMALOG SQ ONE (04:16)
[2022-04-16] MEDS ORDERED: HUMULIN R SQ PRN (04:18)
[2022-04-16] MEDS ORDERED: HUMALOG SQ PRN (04:24)
[2022-04-16] MEDS: TYLENOL 325 MG PO PRN ×2 (05:26→15:07)
[2022-04-16] MEDS ORDERED: VENTOLIN COMMON CANISTER IH PRN ×2 (08:33→08:46)
[2022-04-16] MEDS ORDERED: NON-FORMULARY ITEM (Sumatriptan Succinate [Imitrex 50 Mg] 50 MG Tablet) PO PRN (08:33)
[2022-04-16] MEDS ORDERED: ZOFRAN ODT 4 MG PO PRN (08:33)
--- NOTE | 2022-04-16 08:54 | XRAY ---
Indication: Short of breath. Pulmonary embolus. History right lower extremity DVT. Multiple contiguous axial images obtained through the chest using 100 cc Isovue 370 contrast and PE protocol. Comparison: April 04, 2021. Good opacification of the pulmonary arteries to include the lobar and segmental branches. New nonoccluding pulmonary emboli in the distal right upper lobe pulmonary artery extending into the segmental branches. Heart not enlarged. Aorta remains minimally arteriosclerotic without aneurysm/dissection. No pathologic mediastinal/hilar lymphadenopathy. Lungs demonstrates moderate bilateral dependent atelectasis. No suspicious pulmonary mass, infiltrate, consolidation, effusion, or pneumothorax. Bony thorax intact again with minimal degenerative changes throughout the spine. Limited upper abdomen again demonstrates mild diffuse fatty liver, tiny gallstone, and incompletely visualized 2.7 cm left renal cyst. Impression: 1. New right upper lobe nonoccluding pulmonary emboli. 2. Again incidental fatty liver, tiny gallstone, and left renal cyst.
[2022-04-16] MEDS ORDERED: MEDICATION INTERVENTION MC SCH ×2 (09:00)
[2022-04-16] MEDS: ELIQUIS 2.5 MG TABLET PO SCH ×2 (09:05→10:30)
[2022-04-16 09:27] LABS: ALBUMIN 3.4 g/dL (3.5-5.0); ALKALINE PHOSPHATASE 178 U/L (38-126); ANION GAP 17.8 MEQ/L (5-15); BLOOD UREA NITROGEN 12 mg/dL (7-17); CHLORIDE 103 mmol/L (98-107); Calcium 8.8 mg/dL (8.4-10.2); Carbon Dioxide 17 mmol/L (22-30); Creatinine 1 0.63 mg/dL (0.52-1.04); EST GLOMERULAR FILTRATION RATE > 60.0 ML/MIN; Potassium 4.1 mmol/L (3.5-5.1); SGOT/AST 27 U/L (14-36); SGPT/ALT 19 U/L (0-35); SODIUM 134 mmol/L (137-145); Total Protein 6.9 g/dL (6.3-8.2)
[2022-04-16 09:29] LABS: Glucose 517 mg/dL (74-106)
[2022-04-16] MEDS ORDERED: NON-FORMULARY ITEM (Paroxetine Hcl [Paxil] 10 MG Tablet) PO SCH (10:00)
[2022-04-16] MEDS ORDERED: ENOXAPARIN SODIUM SQ SCH (10:00)
[2022-04-16] MEDS ORDERED: NON-FORMULARY ITEM (L.Acidoph,Paracasei, B.Lactis [Probiotic] 1 EACH Capsule) PO SCH (10:00)
[2022-04-16] MEDS ORDERED: NON-FORMULARY ITEM (Omeprazole 20 Mg [Prilosec 20 Mg] 20 MG Capsule.Dr) PO SCH (10:00)
[2022-04-16] MEDS ORDERED: NON-FORMULARY ITEM (Duloxetine Hcl [Duloxetine Hcl] 60 MG Capsule.Dr) PO SCH (10:00)
[2022-04-16] MEDS ORDERED: ROCEPHIN 1 Gm-D5w 50 ml Bag** 1 G/50 ML IVPB IV SCH (10:00)
[2022-04-16] MEDS ORDERED: MESALAMINE 500 MG PO SCH (10:00)
[2022-04-16] MEDS ORDERED: NON-FORMULARY ITEM (Atorvastatin Calcium [Atorvastatin Calcium] 10 MG Tablet) PO SCH (10:00)
[2022-04-16] MEDS: SYNTHROID 25 MCG PO SCH (10:29)
[2022-04-16] MEDS: Paxil 20 MG PO SCH (10:29)
[2022-04-16] MEDS: Toprol Xl 100 MG PO SCH (10:29)
[2022-04-16] MEDS: Imdur 60MG PO SCH (10:29)
[2022-04-16] MEDS: Cymbalta 30 MG Capsule PO SCH (10:30)
[2022-04-16] MEDS: Acidophilus TABLET PO SCH (10:30)
[2022-04-16] MEDS: Zocor 10MG PO SCH (10:30)
[2022-04-16] MEDS: Protonix 40MG Tablet PO SCH ×2 (10:30→21:08)
[2022-04-16] MEDS ORDERED: NON-FORMULARY ITEM (Insulin Aspart [Novolog] 100 UNIT/ML Vial) SQ SCH (11:30)
[2022-04-16] MEDS: HUMALOG SQ SCH ×2 (12:38→17:19)
[2022-04-16] MEDS: ULTRAM 50 MG PO PRN ×2 (15:02→21:16)
[2022-04-16] MEDS: PROVENTIL 2.5 MG/3 ML NEB IH SCH (19:35)
[2022-04-16] MEDS ORDERED: NON-FORMULARY ITEM (Insulin Glargine,Hum.Rec.Anlog [Basaglar Kwikpen U-100] 100 UNIT/ML In SQ SCH (22:00)
[2022-04-16] MEDS ORDERED: Lantus Insulin SQ SCH (22:00)
[2022-04-16] MEDS ORDERED: Zithromax 500 MG/ 250 ML NaCl Premix 500 MG/250 ML IVPB IV SCH (22:00)
[2022-04-17] MEDS: TYLENOL 325 MG PO PRN ×2 (03:33→09:03)
[2022-04-17] MEDS: ULTRAM 50 MG PO PRN ×2 (03:33→09:38)
[2022-04-17] MEDS: HUMALOG SQ SCH ×2 (08:15→13:02)
--- NOTE | 2022-04-17 08:46 | SSS ---
DISCHARGE DIAGNOSES: 1) SHORTNESS OF BREATH. 2) DIABETES MELLITUS TYPE II, OUT OF CONTROL. HISTORY: The patient is a 61-year-old white female who presented to the emergency room with complaints of shortness of breath. She had been in the [facility] Emergency Room and then again in ours and was admitted to the hospital. There she was diagnosed with chronic obstructive pulmonary disease with acute exacerbation. It was noted however that the patient has never had chronic obstructive pulmonary disease in the past. She is not a smoker. She is quite heavy and has always been morbidly obese. She had recently been kicked out of her daughter's house and has moved into her son's house and she is living on a couch. She has otherwise Social Security from her late check coming in but otherwise has no other means of support. She is quite depressed and has been for a while. She has had multiple medical hospitalizations including a ten day stay at [facility] recently for exacerbation of ulcerative colitis which she has had for at least 20 years. PAST MEDICAL/SURGICAL HISTORY: The patient's history otherwise is significant for having had a long history of Crohn's colitis. She has had problems with anxiety and depression. She previously had hypertension, hyperlipidemia and what she states is previous myocardial infarction. HOME MEDICATIONS: Medications at home which is not taking currently because she has it packed away at some storage facility were duloxetine 60 mg a day, Pentasa 500 mg b.i.d., Metformin 1,000 mg b.i.d., omeprazole 20 mg twice a day, atorvastatin 10 mg a day. She is taking 38 units of long acting insulin in the evening. She takes meclizine 25 mg on a PRN basis. She uses 44 units of Aspart Insulin with meals, isosorbide mononitrate 120 mg a day, levothyroxine 25 mg a day, metoprolol extended release 100 mg daily. She uses Albuterol on PRN basis, paroxetine 10 mg a day. Robaxin will be discontinued which she was taking 1,000 mg four times a day as needed. ALLERGIES: FLEXERIL. REGLAN. SULFA. NUBAIN. CIPRO. DEMEROL. MORPHINE. PHYSICAL EXAMINATION: The patient's vital signs on admission showed her temperature to be 99.2F, pulse 108, respiratory rate 28 and blood pressure 169/109. O2 saturation 98%. HEENT: Normocephalic, atraumatic. Pupils equal round reactive to light. Extraocular movements intact. Oropharynx is pink and moist. NECK: Supple without lymphadenopathy, thyromegaly or JVD. CHEST: Clear to auscultation. HEART: Regular rate and rhythm without murmurs, rubs or gallops heard. ABDOMEN: Soft. No palpable masses. EXTREMITIES: Without cyanosis, clubbing or edema. NEUROLOGIC: The patient is alert and oriented x3 with no focal deficits. LAB DATA AND TESTS: The patient's laboratory studies in the emergency room showed a troponin less than 0.012. She had a normal CBC. Serial troponins have all been less than 0.012. She had a sugar of 555, BUN 11, creatinine 061. Sodium was slightly low at 133. Her CO2 was slightly low also at 16. HOSPITAL COURSE: The patient was admitted to the [facility] and she was initially given Solu-Medrol in the emergency room which caused her sugars to remain quite elevated and this was discontinued through her stay and her last blood was 111. The patient also received Rocephin and Zithromax initially. The patient was diagnosed with a new nonoccluding pulmonary emboli on a chest CT scan. There was incidental fatty liver and a tiny gallstone and left renal cyst. Her chest x-ray otherwise showed no new acute pathology. During the patient's stay again the emergency room treatments of Rocephin, Zithromax and Solu-Medrol were all discontinued. The patient does not have any wheezing and no previous history of significant chronic obstructive pulmonary disease although she does occasionally use Albuterol. The patient's diabetes is under better control now and being off of the steroids is under much better control. The patient wishes to go to a rehab at this time. [facility] has assessed her and will be hopefully taking her this morning. She has had previous extensive stays in their facility for rehab after a hospitalization. The patient will be discharged on her usual home medications as listed above. She will be offered an appointment to see me in the office in one week.
[2022-04-17] MEDS: Toprol Xl 100 MG PO SCH (09:36)
[2022-04-17] MEDS: Imdur 60MG PO SCH (09:36)
[2022-04-17] MEDS: ELIQUIS 2.5 MG TABLET PO SCH (09:36)
[2022-04-17] MEDS: Paxil 20 MG PO SCH (09:37)
[2022-04-17] MEDS: Protonix 40MG Tablet PO SCH (09:37)
[2022-04-17] MEDS: Acidophilus TABLET PO SCH (09:37)
[2022-04-17] MEDS: Cymbalta 30 MG Capsule PO SCH (09:37)
[2022-04-17] MEDS: Zocor 10MG PO SCH (09:37)
[2022-04-17] MEDS: SYNTHROID 25 MCG PO SCH (09:38)
[2022-04-17 12:33] VITALS: BP 139/71; PULSE 71; O2SAT 95
== END 2022-04-17 12:45 | disposition home health service (06) ==
LOC: ED 16:21 → MED SURG 23:18
PROVIDERS: ADMIT Family Medicine; ATTEND Family Medicine
DX: R06.02 Shortness of breath (principal); E11.65 Type 2 diabetes mellitus with hyperglycemia; J44.1 Chronic obstructive pulmonary disease with (acute) exacerbation; E66.9 Obesity, unspecified; N39.0 Urinary tract infection, site not specified; F32.A Depression, unspecified; K50.90 Crohn's disease, unspecified, without complications; I10 Essential (primary) hypertension; E78.5 Hyperlipidemia, unspecified; I25.2 Old myocardial infarction; Z79.899 Other long term (current) drug therapy; Z20.828 Contact with and (suspected) exposure to other viral communicable diseases
CPT/HCPCS: 0241U; 36000; 36415; 71045; 71260; 80053; 81015; 82947; 83880; 84484; 85025; 85027; 87040; 87077; 87086; 87186; 93005; 93041; 94640; 94760; 94762; 96360; 96365; 96372; 96374; 97110; 97161; 99285; 93268; J0456; J0696; J1650; J1817; J2930; J7609; A9270-GY; G0378

== ENCOUNTER 2022-04-20 10:19 | Observation (INO) | payer MEDICARE ==
[2022-04-20] MEDS ORDERED: DUONEB 0.5-3 MG/3 ml Neb IH ONE ×2 (10:49→10:58)
--- NOTE | 2022-04-20 10:49 | ERPHSYRPT ---
- History of Present Illness Time Seen by Provider: 04/20/22 10:35 Source: patient Exam Limitations: no limitations Patient Subjective Stated Complaint: pt here for increase sob, she was dc on wednesday for a dvt and was unable to get blood thinner filled, she has been out si nce dc, she states she aslo fell getting in to house on wednesday and has pain to both breasts. Triage Nursing Assessment: pt alert, arrived per wc, skin w/d/p, resp labored with excertion, chest clear, no cough at present time, has sore to 3rd toe, no drainage or redness, no edema , bruising to both breasts Physician History: Patient is a 61-year-old female presents to our emergency department with complaints of progressive shortness of breath. Patient was discharged from our hospital 4 days ago after treatment for a pulmonary embolus. A prescription for Eliquis was forwarded to patient's pharmacy however they were unable to fill her Eliquis. Patient has been 4 days without her blood thinner at this point. Patient shortness of breath worse with exertion. No chest pain. No nausea vomiting or diaphoresis. Symptoms are progressive. Symptoms are moderate in intensity. Patient advises that she fell at her son's house and now has tend erness to both breast. Upon physical examination there is bruising to both breasts. Patient voices no other complaints or concerns at this time. Portions of this note were created with voice recognition technology. There may be grammatical, spelling, punctuation or sound alike errors Timing/Duration: day(s) (4 days) Activities at Onset: none Severity of Dyspnea-Max: moderate Severity of Dyspnea-Current: moderate Modifying Factors: Improves With: activity Associated Symptoms: dizziness (Patient complains of mild resting dizziness however patient is tachypneic at rest) Allergies/Adverse Reactions: cyclobenzaprine HCl [From Flexeril] Allergy (Mild, Verified 04/20/22 10:24) Rash metoclopramide [From Reglan] Allergy (Mild, Verified 04/20/22 10:24) Rash Sulfa (Sulfonamide Antibiotics) [Sulfa(Sulfonamide Antibiotics)] Allergy (Mild, Verified 04/20/22 10:24) Rash adhesive Allergy (Verified 04/20/22 10:24) Rash nalbuphine HCl [From Nubain] Adverse Reaction (Intermediate, Verified 04/20/22 10:24) Stomach Cramps patient states she had stomach "burning" and that her legs felt like "rubber bands" ciprofloxacin [From Cipro] Adverse Reaction (Mild, Verified 04/20/22 10:24) Rash meperidine HCl [From Demerol] Adverse Reaction (Mild, Verified 04/20/22 10:24) Vomiting morphine Adverse Reaction (Verified 04/20/22 10:24) ADDICTION PT STATES SHE TOOK MORPHINE YEARS AGO AND IT WAS HARD TO GET OFF OF IT AND DOES NOT WANT IT Home Medications: Duloxetine HCl 60 mg PO DAILY 03/17/16 [History] Mesalamine [Pentasa] 500 mg PO BID 03/17/16 [History] Methocarbamol [Robaxin] 1,000 mg PO QIDPRN PRN 03/17/16 [History] Omeprazole 20 MG [Prilosec 20 mg] 20 mg PO BID 03/17/16 [History] Atorvastatin Calcium 10 mg PO DAILY 01/25/18 [History] Insulin Glargine,Hum.rec.anlog [Basaglar Kwikpen U-100] 38 unit SQ HS 12/05/19 [History] Meclizine HCl 25 mg [Antivert 25 mg] 25 mg PO DAILY PRN 12/05/19 [History] Insulin Aspart [Novolog] 44 unit SQ AC 08/02/20 [History] Isosorbide Mononitrate 60 mg [Imdur 60MG] 120 mg PO DAILY 12/31/20 [History] Levothyroxine Sodium 25 Mcg [Synthroid 25 Mcg] 25 mcg PO DAILY 12/31/20 [History] Metoprolol Succinate 100 mg [Toprol Xl 100 MG] 100 mg PO DAILY 12/31/20 [History] Albuterol Sulfate [Albuterol Sulfate Hfa] 2 puffs IH Q4HPRN PRN 01/18/21 [History] PARoxetine HCl [Paxil] 10 mg PO DAILY 01/18/21 [History] L.acidoph,Paracasei, B.lactis [Probiotic] 1 cap PO DAILY 06/11/21 [History] Hx Tetanus, Diphtheria Vaccination/Date Given: No Hx Influenza Vaccination/Date Given: No Hx Pneumococcal Vaccination/Date Given: No Immunizations Up to Date: Yes Travel Risk - International Travel Have you traveled outside of the country in past 3 weeks: No - Coronavirus Screening Are you exhibiting any of the following symptoms?: No Close contact with a COVID-19 positive Pt in past 14-21 Days: No - Vaccine Status Have you recieved a Covid-19 vaccination: No - Review of Systems Constitutional: No Symptoms, No Fever, No Chills Eyes: No Symptoms Ears, Nose, & Throat: No Symptoms Respiratory: No Symptoms, No Cough, No Dyspnea Cardiac: No Symptoms, No Chest Pain, No Edema, No Syncope Abdominal/Gastrointestinal: No Symptoms, No Abdominal Pain, No Nausea, No Vomiting, No Diarrhea Genitourinary Symptoms: No Symptoms, No Dysuria Musculoskeletal: No Symptoms, No Back Pain, No Neck Pain Skin: No Symptoms, No Rash Neurological: No Symptoms, No Dizziness, No Focal Weakness, No Sensory Changes Psychological: No Symptoms Endocrine: No Symptoms Immunological/Allergic: No Symptoms All Other Systems: Reviewed and Negative - Past Medical History Pertinent Past Medical History: Yes Neurological History: Migraines ENT History: Cataracts Cardiac History: Coronary Artery Disease, High Cholesterol, Hypertension, Myocardial Infarction (AR) Respiratory History: Asthma, Bronchitis, COPD, Sleep Apnea Endocrine Medical History: Diabetes Type II Musculoskeletal History: Arthritis, Degenerative Disk Disease, Fibromyalgia, Osteoarthritis GI Medical History: Crohns Disease, Diverticulitis, GERD, Irritable Bowel History: No Pertinent History Psycho-Social History: Anxiety, Depression Female Reproductive Disorders: No Pertinent History Other Medical History: HX UTI, HX Yeast Infection, Neuropathy, degenerative joint disease - Past Surgical History Past Surgical History: Yes Neuro Surgical History: No Pertinent History Cardiac: Cardiac Catheterization Respiratory: No Pertinent History Gastrointestinal: No Pertinent History Genitourinary: No Pertinent History Musculoskeletal: No Pertinent History Female Surgical History: Dilation & Curettage, Section, Tubal Ligation Other Surgical History: KIDNEY STONE REMOVAL, right 2nd toe amputated 2021. heart cath x3, no stents - Social History Smoking Status: Never smoker How long have you smoked: years Exposure to second hand smoke: No Alcohol Use: None Drug Use: none Patient Lives Alone: No Significant Family History: no pertinent family hx, diabetes, hypertension - Nursing Vital Signs Nursing Vital Signs: Initial Vital Signs Temperature 97.4 F 04/20/22 10:27 Pulse Rate 116 H 04/20/22 10:27 Respiratory Rate 28 H 04/20/22 10:27 Blood Pressure 123/92 04/20/22 10:27 O2 Sat by Pulse Oximetry 97 04/20/22 10:27 Pain Scale Pain Intensity 5 - Physical Exam General Appearance: no apparent distress, alert, other (Patient lying in bed. She is tachypneic.) Eye Exam: PERRL/EOMI, eyes nml inspection, No scleral icterus Ears, Nose, Throat Exam: hearing grossly normal, normal ENT inspection, sinus pain/drainage Neck Exam: normal inspection, supple, full range of motion Respiratory Exam: normal breath sounds, lungs clear, airway intact, other (Tachypneic), No wheezing, No stridor Cardiovascular/Chest Exam: normal heart sounds, normal peripheral pulses, tachycardia Abdominal/Gastrointestinal Exam: soft, No tenderness, No distention, No mass Extremity Exam: non-tender, normal range of motion, normal inspection, no calf tenderness, no pedal edema Peripheral Pulses Exam: dorsalis-pedis (R): 2+, dorsalis-pedis (L): 2+ Neurologic Exam: alert, oriented x 3, cooperative, faculty criminal justice II-XII nml as tested, se nsation nml, No motor deficits Skin Exam: normal color, warm, No dry SpO2 Interpretation: normal SpO2: 97 O2 Delivery: Room Air - Course Nursing assessment & vital signs reviewed: Yes EKG Interpreted by Me: RATE, Sinus Tach, NORMAL AXIS, NORMAL INTERVALS Ordered Tests: Active Orders 24 hr Category Date Time Status Issuing Operator STAT Care 04/20/22 10:43 Active EKG-ER Only STAT Care 04/20/22 10:42 Active IV Insertion STAT Care 04/20/22 10:42 Active Pulse Oximetry (ED) STAT Care 04/20/22 10:42 Active CHEST WITH CONTRAST [CT] Stat Exams 04/20/22 10:47 Completed BLOOD CULTURE Stat Lab 04/20/22 10:40 Received CBC W DIFF Stat Lab 04/20/22 10:30 Completed CMP Stat Lab 04/20/22 10:30 Completed NT PRO BNP Stat Lab 04/20/22 10:30 Completed TROPONIN Q3H Lab 04/20/22 10:30 Completed TROPONIN Q3H Lab 04/20/22 13:45 Ordered TROPONIN Q3H Lab 04/20/22 16:45 Ordered TROPONIN Q3H Lab 04/20/22 19:45 Ordered TROPONIN Q3H Lab 04/20/22 22:45 Ordered Respiratory Therapy Assessment DAILY RT 04/20/22 11:21 Active Transfer Order Routine Transfer 04/20/22 Ordered Medication Summary Discontinued Medications Generic Name Dose Route Start Last Admin Trade Name Freq PRN Reason Stop Dose Admin Albuterol/Ipratropium 3 ml 04/20/22 10:49 04/20/22 11:19 Ipratropium/Albuterol Sulfate 3 Ml Ampul.Neb IH 04/20/22 10:50 3 ml STAT ONE Administration Albuterol/Ipratropium Confirm 04/20/22 10:58 Ipratropium/Albuterol Sulfate 3 Ml Ampul.Neb Administered 04/20/22 10:59 Dose 3 ml IH .STK-MED ONE Enoxaparin Sodium 120 mg 04/20/22 12:15 04/20/22 12:20 Enoxaparin Sodium 120 Mg/0.8 Ml Syringe SQ 04/20/22 12:16 120 mg STAT STA Administration Enoxaparin Sodium Confirm 04/20/22 12:19 Enoxaparin Sodium 120 Mg/0.8 Ml Syringe Administered 04/20/22 12:20 Dose 120 mg SQ .STK-MED ONE Potassium Chloride 40 meq 04/20/22 12:09 04/20/22 12:19 Potassium Chloride Tab 10 Meq Tab PO 04/20/22 12:10 40 meq STAT ONE Administration Potassium Chloride Confirm 04/20/22 12:19 Potassium Chloride Tab 10 Meq Tab Administered 04/20/22 12:20 Dose 40 meq PO .STK-MED ONE Lab/Rad Data: Laboratory Result Diagrams 04/20/22 10:30 04/20/22 10:30 Laboratory Results 04/20/22 04/20/22 04/20/22 Range/Units 10:55 10:30 10:30 WBC (4.0-10.5) x10^3/uL RBC (4.1-5.4) x10^6/uL Hgb (12.0-16.0) g/dL Hct (35-47) % MCV (78-100) fL MCH (26-32) pg MCHC (32-36) g/dL RDW (11.5-14.0) % Plt Count (150-450) x10^3/uL MPV (7.5-11.0) fL Gran % (36.0-66.0) % Immature Gran % (Auto) (0.00-0.4) % Nucleat RBC Rel Count (0.00-0.1) % Eos # (Auto) (0-0.5) x10^3/uL Immature Gran # (Auto) (0.00-0.03) x10^3u/L Absolute Lymphs (auto) (1.0-4.6) x10^3/uL Absolute Monos (auto) (0.0-1.3) x10^3/uL Absolute Nucleated RBC (0.00-0.01) x10^3u/L Lymphocytes % (24.0-44.0) % Monocytes % (0.0-12.0) % Eosinophils % (0.00-5.0) % Basophils % (0.0-0.4) % Absolute Granulocytes (1.4-6.9) x10^3/uL Basophils # (0-0.4) x10^3/uL Sodium 137 (137-145) mmol/L Potassium 3.0 L* (3.5-5.1) mmol/L Chloride 106 (98-107) mmol/L Carbon Dioxide 18 L (22-30) mmol/L Anion Gap 15.3 H (5-15) MEQ/L BUN 7 (7-17) mg/dL Creatinine 0.69 (0.52-1.04) mg/dL Estimated GFR > 60.0 ML/MIN Glucose 240 H (74-106) mg/dL Calcium 8.8 (8.4-10.2) mg/dL Total Bilirubin 0.60 (0.2-1.3) mg/dL AST 27 (14-36) U/L ALT 18 (0-35) U/L Alkaline Phosphatase 146 H (38-126) U/L Troponin I < 0.012 (0.000-0.034) ng/mL NT-Pro-B Natriuret Pep 835 (0-900) pg/mL Serum Total Protein 6.6 (6.3-8.2) g/dL Albumin 3.3 L (3.5-5.0) g/dL Influenza Type A Ag NEGATIVE (NEGATIVE) Influenza Type B Ag NEGATIVE (NEGATIVE) RSV (PCR) NEGATIVE (Negative) SARS-CoV-2 (PCR) NEGATIVE (NEGATIVE) 04/20/22 Range/Units 10:30 WBC 8.8 (4.0-10.5) x10^3/uL RBC 4.58 (4.1-5.4) x10^6/uL Hgb 12.7 (12.0-16.0) g/dL Hct 40.5 (35-47) % MCV 88.4 (78-100) fL MCH 27.7 (26-32) pg MCHC 31.4 L (32-36) g/dL RDW 14.7 H (11.5-14.0) % Plt Count 258 (150-450) x10^3/uL MPV 12.1 H (7.5-11.0) fL Gran % 76.7 H (36.0-66.0) % Immature Gran % (Auto) 0.5 H (0.00-0.4) % Nucleat RBC Rel Count 0.0 (0.00-0.1) % Eos # (Auto) 0.60 H (0-0.5) x10^3/uL Immature Gran # (Auto) 0.04 H (0.00-0.03) x10^3u/L Absolute Lymphs (auto) 0.89 L (1.0-4.6) x10^3/uL Absolute Monos (auto) 0.50 (0.0-1.3) x10^3/uL Absolute Nucleated RBC 0.00 (0.00-0.01) x10^3u/L Lymphocytes % 10.1 L (24.0-44.0) % Monocytes % 5.7 (0.0-12.0) % Eosinophils % 6.8 H (0.00-5.0) % Basophils % 0.2 (0.0-0.4) % Absolute Granulocytes 6.74 (1.4-6.9) x10^3/uL Basophils # 0.02 (0-0.4) x10^3/uL Sodium (137-145) mmol/L Potassium (3.5-5.1) mmol/L Chloride (98-107) mmol/L Carbon Dioxide (22-30) mmol/L Anion Gap (5-15) MEQ/L BUN (7-17) mg/dL Creatinine (0.52-1.04) mg/dL Estimated GFR ML/MIN Glucose (74-106) mg/dL Calcium (8.4-10.2) mg/dL Total Bilirubin (0.2-1.3) mg/dL AST (14-36) U/L ALT (0-35) U/L Alkaline Phosphatase (38-126) U/L Troponin I (0.000-0.034) ng/mL NT-Pro-B Natriuret Pep (0-900) pg/mL Serum Total Protein (6.3-8.2) g/dL Albumin (3.5-5.0) g/dL Influenza Type A Ag (NEGATIVE) Influenza Type B Ag (NEGATIVE) RSV (PCR) (Negative) SARS-CoV-2 (PCR) (NEGATIVE) - Progress Progress: improved Air Movement: good Progress Note: Patient is a 61-year-old female with a previously known pulmonary embolus. Patient recently discharged from our hospital. Patient unable to fill her prescription for Eliquis. In the interim patient developed worsening shortness of breath. A new not previously observed left lower lobe PE observed which may have possibly been present during the last CT scan. However at this point she has both a right upper lobe and left lower lobe PE. Case discussed with Dr. Holguin who accepts admission to observation. Plan of care discussed with patient. She agrees to admission [facility] for further evaluation and treatment. Portions of this note were created with voice recognition technology. There may be grammatical, spelling, punctuation or sound alike errors 04/20/22 12:22 Blood Culture(s) Obtained: Yes Antibiotics given: No Discussed with : Baudilio Will see patient in: hospital (observation) Counseled pt/family regarding: lab results, diagnosis, rad results - Departure Departure Disposition: Observation Clinical Impression: SOB (shortness of breath), Tachypnea, Tachycardia, Pulmonary embolus, Hypokalemia, Hyperglycemia, Arteriosclerosis, Fatty liver, Renal cyst Condition: Stable Critical Care Time: No Referrals: CALVIN HOLGUIN [Primary Care Provider] - Follow up/PCP as directed
[2022-04-20 11:01] LABS: Absolute Neutrophil Ct (ANC) 6.74 x10^3/uL (1.4-6.9); Basophil (Absolute #) 0.02 x10^3/uL (0-0.4); Eosinophil % 6.8 % (0.00-5.0); Hematocrit 40.5 % (35-47); Hemoglobin 12.7 g/dL (12.0-16.0); Lymphocyte (Absolute #) 0.89 x10^3/uL (1.0-4.6); Lymphocytes % 10.1 % (24.0-44.0); Mean Cell Volume 88.4 fL (78-100); Mean Corpuscular Hemoglobin 27.7 pg (26-32); Mean Corpuscular Hgb Concent. 31.4 g/dL (32-36); Mean Platelet Volume 12.1 fL (7.5-11.0); Monocytes % 5.7 % (0.0-12.0); Neutrophil % 76.7 % (36.0-66.0); Platelet Count 258 x10^3/uL (150-450); Red Blood Count 4.58 x10^6/uL (4.1-5.4); Red Cell Distribution Width 14.7 % (11.5-14.0); White Blood Count 8.8 x10^3/uL (4.0-10.5)
[2022-04-20 11:21] LABS: ALBUMIN 3.3 g/dL (3.5-5.0); ALKALINE PHOSPHATASE 146 U/L (38-126); ANION GAP 15.3 MEQ/L (5-15); BLOOD UREA NITROGEN 7 mg/dL (7-17); CHLORIDE 106 mmol/L (98-107); Calcium 8.8 mg/dL (8.4-10.2); Carbon Dioxide 18 mmol/L (22-30); Creatinine 1 0.69 mg/dL (0.52-1.04); EST GLOMERULAR FILTRATION RATE > 60.0 ML/MIN; Glucose 240 mg/dL (74-106); NT PRO BNP 835 pg/mL (0-900); SGOT/AST 27 U/L (14-36); SGPT/ALT 18 U/L (0-35); SODIUM 137 mmol/L (137-145); Total Protein 6.6 g/dL (6.3-8.2)
[2022-04-20 11:39] LABS: INFLUENZA A NEGATIVE (NEGATIVE); INFLUENZA B NEGATIVE (NEGATIVE); RESPIRATORY SYNCTIAL VIRUS NEGATIVE (Negative); SARS-CoV-2 Xpert Express NEGATIVE (NEGATIVE)
--- NOTE | 2022-04-20 12:05 | XRAY ---
Indication: Continued short of breath. Known pulmonary embolus. Multiple contiguous axial images obtained through the chest using 100 cc Isovue 370 contrast and PE protocol. Comparison: April 15, 2022. Good opacification of the pulmonary arteries with grossly stable nonoccluding pulmonary emboli in the distal right upper lobe pulmonary artery extending into the segmental branches. Nonoccluding pulmonary emboli in the medial segment left lower lobe not well seen on previous exam due to respiration artifact but present in retrospect. Heart not enlarged. Aorta minimally arteriosclerotic without aneurysm/dissection. No pathologic mediastinal/hilar lymphadenopathy. Lungs again demonstrates bilateral dependent atelectasis less than before. No new pulmonary mass, infiltrate, consolidation, or effusion Bony thorax intact again with minimal degenerative changes throughout the spine. Limited upper abdomen again demonstrates fatty liver and partially visualized left mid renal cyst. Impression: 1. Grossly stable nonobstructing right upper lobe and lesser degree nonobstructing left lower lobe pulmonary emboli. 2. No new cardiopulmonary abnormalities. 3. Again incidental fatty liver and left renal cyst.
[2022-04-20] MEDS ORDERED: Klor Con PO ONE ×2 (12:09→12:19)
[2022-04-20] MEDS ORDERED: ENOXAPARIN SODIUM SQ STA (12:15)
[2022-04-20] MEDS ORDERED: ENOXAPARIN SODIUM SQ ONE (12:19)
[2022-04-20] MEDS: PROVENTIL 2.5 MG/3 ML NEB IH SCH ×2 (15:16→18:53)
[2022-04-20] MEDS ORDERED: VENTOLIN COMMON CANISTER IH PRN (15:38)
[2022-04-20] MEDS ORDERED: MEDICATION INTERVENTION MC SCH (16:15)
[2022-04-20] MEDS ORDERED: NON-FORMULARY ITEM (Insulin Aspart [Novolog] 100 UNIT/ML Vial) SQ SCH (16:30)
[2022-04-20] MEDS: Imdur 60MG PO SCH (17:22)
[2022-04-20] MEDS: HUMALOG SQ SCH (17:22)
[2022-04-20] MEDS: SYNTHROID 25 MCG PO SCH (17:22)
[2022-04-20] MEDS: Toprol Xl 100 MG PO SCH (17:23)
[2022-04-20] MEDS: Acidophilus TABLET PO SCH (17:23)
[2022-04-20] MEDS: Cymbalta 30 MG Capsule PO SCH (17:23)
[2022-04-20] MEDS: Zocor 10MG PO SCH (17:23)
[2022-04-20] MEDS: Paxil 20 MG PO SCH (17:23)
[2022-04-20] MEDS: ULTRAM 50 MG PO PRN ×2 (17:24→21:18)
[2022-04-20] MEDS: Protonix 40MG Tablet PO SCH (21:11)
[2022-04-20] MEDS: ELIQUIS 2.5 MG TABLET PO SCH (21:11)
[2022-04-20] MEDS ORDERED: NON-FORMULARY ITEM (Omeprazole 20 Mg [Prilosec 20 Mg] 20 MG Capsule.Dr) PO SCH (22:00)
[2022-04-20] MEDS ORDERED: Lantus Insulin SQ SCH (22:00)
[2022-04-20] MEDS ORDERED: MESALAMINE 500 MG PO SCH (22:00)
[2022-04-20] MEDS ORDERED: NON-FORMULARY ITEM (Insulin Glargine,Hum.Rec.Anlog [Basaglar Kwikpen U-100] 100 UNIT/ML In SQ SCH (22:00)
[2022-04-20] MEDS ORDERED: NON-FORMULARY ITEM (Apixaban*** [Eliquis 5 Mg Tablet***] 5 MG Tablet) PO SCH (22:00)
[2022-04-21 05:36] LABS: Hematocrit 32.9 % (35-47); Hemoglobin 10.3 g/dL (12.0-16.0); Mean Cell Volume 90.6 fL (78-100); Mean Corpuscular Hemoglobin 28.4 pg (26-32); Mean Corpuscular Hgb Concent. 31.3 g/dL (32-36); Mean Platelet Volume 12.5 fL (7.5-11.0); Platelet Count 215 x10^3/uL (150-450); Red Blood Count 3.63 x10^6/uL (4.1-5.4); Red Cell Distribution Width 15.1 % (11.5-14.0); White Blood Count 6.4 x10^3/uL (4.0-10.5)
[2022-04-21 06:06] LABS: ALBUMIN 2.8 g/dL (3.5-5.0); ALKALINE PHOSPHATASE 129 U/L (38-126); ANION GAP 10.8 MEQ/L (5-15); BLOOD UREA NITROGEN 9 mg/dL (7-17); CHLORIDE 103 mmol/L (98-107); Calcium 8.3 mg/dL (8.4-10.2); Carbon Dioxide 26 mmol/L (22-30); Creatinine 1 0.74 mg/dL (0.52-1.04); EST GLOMERULAR FILTRATION RATE > 60.0 ML/MIN; Glucose 200 mg/dL (74-106); Potassium 3.6 mmol/L (3.5-5.1); SGOT/AST 38 U/L (14-36); SGPT/ALT 17 U/L (0-35); SODIUM 136 mmol/L (137-145); Total Protein 5.8 g/dL (6.3-8.2)
[2022-04-21] MEDS: HUMALOG SQ SCH ×2 (08:04→12:31)
[2022-04-21 08:19] VITALS: PULSE 72
[2022-04-21] MEDS ORDERED: NORCO 5/325 MG PO PRN (08:23)
[2022-04-21] MEDS: Imdur 60MG PO SCH (09:22)
[2022-04-21] MEDS: ELIQUIS 2.5 MG TABLET PO SCH (09:22)
[2022-04-21] MEDS: Protonix 40MG Tablet PO SCH (09:22)
[2022-04-21] MEDS: SYNTHROID 25 MCG PO SCH (09:22)
[2022-04-21] MEDS: Paxil 20 MG PO SCH (09:23)
[2022-04-21] MEDS: Toprol Xl 100 MG PO SCH (09:23)
[2022-04-21] MEDS: Acidophilus TABLET PO SCH (09:23)
[2022-04-21] MEDS: Cymbalta 30 MG Capsule PO SCH (09:24)
[2022-04-21] MEDS: Zocor 10MG PO SCH (09:24)
[2022-04-21] MEDS ORDERED: NON-FORMULARY ITEM (Duloxetine Hcl [Duloxetine Hcl] 60 MG Capsule.Dr) PO SCH (10:00)
[2022-04-21] MEDS ORDERED: NON-FORMULARY ITEM (Atorvastatin Calcium [Atorvastatin Calcium] 10 MG Tablet) PO SCH (10:00)
[2022-04-21] MEDS ORDERED: NON-FORMULARY ITEM (Paroxetine Hcl [Paxil] 10 MG Tablet) PO SCH (10:00)
[2022-04-21] MEDS ORDERED: NON-FORMULARY ITEM (L.Acidoph,Paracasei, B.Lactis [Probiotic] 1 EACH Capsule) PO SCH (10:00)
--- NOTE | 2022-04-21 12:02 | SSS ---
DISCHARGE DIAGNOSES: 1) NONOCCLUDING PULMONARY EMBOLISM. 2) CHEST WALL CONTUSION. 3) FALL. 4) DIABETES MELLITUS TYPE II. 5) CHRONIC COLITIS. HISTORY: The patient is a 61-year-old white female who had apparently been discharged from the hospital approximately four days ago. Over the weekend, the patient was unable to obtain her Eliquis which she was prescribed. Apparently she went to the [facility] in [place] where the prescription was sent and they reported that they did not have the medication when she got there. She went the entire weekend without medication. The patient also apparently experienced a fall going up the stairs at her son's house experiencing a significant contusion to the chest wall with bruising to both breasts. The patient presented to the hospital with complaints of chest pain and shortness of breath due to the above complaints. PAST MEDICAL/SURGICAL HISTORY: Significant for long-term chronic ulcerative colitis. She also has coronary artery disease, hypertension, hyperlipidemia, previous myocardial infarction, diabetes mellitus type II, asthma, bronchitis, sleep apnea, anxiety, depression. HOME MEDICATIONS: Includes Duloxetine 60 mg a day, mesalamine 500 mg b.i.d., methocarbamol 1,000 mg four times a day PRN, omeprazole 20 mg b.i.d., atorvastatin 10 mg a day. She takes 38 units of insulin Glargine a day, meclizine 25 mg four times a day PRN dizziness, NovoLog 44 units subcu a.c., isosorbide mononitrate 120 mg a day, levothyroxine 25 mcg a day, metoprolol 100 mg a day, Albuterol PRN basis, paroxetine 10 mg a day. ALLERGIES: FLEXERIL. REGLAN. SULFA. NUBAIN. CIPRO. DEMEROL. MORPHINE. PHYSICAL EXAMINATION: The patient's evaluation in the emergency room revealed her vital signs with a temperature 97.4F, pulse 116, respiratory rate 28 and blood pressure 123/92. O2 saturation 97%. HEENT: Normocephalic, atraumatic. Pupils equal round reactive to light. Extraocular movements intact. Oropharynx is pink and moist. NECK: Supple without lymphadenopathy, thyromegaly or JVD. CHEST: Clear to auscultation. HEART: Regular rate and rhythm without murmurs, rubs or gallops. BREASTS: Erythema and bruising noted on both breasts. ABDOMEN: Soft. No palpable masses. EXTREMITIES: Without cyanosis, clubbing or edema. NEUROLOGIC: The patient is alert and oriented x3 with no focal deficits noted. LAB DATA AND TESTS: The patient's evaluation in the emergency room included repeat CT scan of the chest which revealed nonoccluding pulmonary emboli in the right upper and left lower segments which are not different from previously. She shows again incidental fatty liver disease. The patient's laboratory studies otherwise showed her troponin to be less than 0.012 serially x5. Her hemoglobin 10.3, white blood cell count 6.4, PLT count 215,000. It was noted the patient's potassium was 3.0 therefore she received 40 mEq p.o. and afterwards potassium was up to 3.6. Nonfasting sugar on 04/21/2022 was 200. HOSPITAL COURSE: The patient was admitted for observation. She complained of chest pain from the chest wall contusion. She was given tramadol but asked for stronger pain medication for this. The patient was receiving physical therapy and occupational therapy evaluation previously. She was felt to not need rehab as she was able to get up and go to the bathroom by herself but with the recent fall it is obvious the patient does still have some residual problems with strength. We recommend that she go to outpatient physical therapy as before and did well there previously. Psychosocial - The patient has problems. She recently moved from her daughters to her sons as she felt that somebody was knocking on the door and trying to get in at 3 a.m. on the morning she decided to move to her son's for safety reasons. She is living on the couch at her son's house. She has no place of her own presently. The patient does have a source of income from Disability but currently has no place of her own. Recommendation is for the patient to go to rehab again. She will be on Eliquis in addition to her home medications as listed above at twice daily for the nonoccluding pulmonary emboli. She will be given [place] 5/325 for her pain due to chest wall contusion.
[2022-04-21 12:06] VITALS: BP 148/65; O2SAT 95
== END 2022-04-21 14:42 ==
LOC: ED 10:19 → MED SURG 13:10
PROVIDERS: ADMIT Family Medicine; ATTEND Family Medicine
DX: I26.99 Other pulmonary embolism without acute cor pulmonale (principal); S20.02XA Contusion of left breast, initial encounter; S20.01XA Contusion of right breast, initial encounter; W18.30XA Fall on same level, unspecified, initial encounter; E11.9 Type 2 diabetes mellitus without complications; K51.90 Ulcerative colitis, unspecified, without complications; R06.02 Shortness of breath; I25.10 Atherosclerotic heart disease of native coronary artery without angina pectoris; I10 Essential (primary) hypertension; E78.5 Hyperlipidemia, unspecified; I25.2 Old myocardial infarction; Z91.14 Patient's other noncompliance with medication regimen; Z79.899 Other long term (current) drug therapy; Z79.01 Long term (current) use of anticoagulants
CPT/HCPCS: 0241U; 36000; 36415; 71260; 80053; 82947; 83880; 84484; 85025; 85027; 87040; 93005; 93041; 94640; 94760; 94762; 96372; 97161; 99285; 93268; J1650; J1817; J7609; A9270-GY; G0378

== ENCOUNTER 2022-06-03 03:23 | Observation (INO) | payer MEDICARE ==
[2022-06-03 04:10] LABS: Absolute Neutrophil Ct (ANC) 3.17 x10^3/uL (1.4-6.9); Basophil (Absolute #) 0.03 x10^3/uL (0-0.4); Eosinophil % 4.5 % (0.00-5.0); Eosinophil (Absolute #) 0.21 x10^3/uL (0-0.5); Hematocrit 29.3 % (35-47); Hemoglobin 8.6 g/dL (12.0-16.0); Lymphocyte (Absolute #) 0.82 x10^3/uL (1.0-4.6); Lymphocytes % 17.7 % (24.0-44.0); Mean Cell Volume 93.3 fL (78-100); Mean Corpuscular Hemoglobin 27.4 pg (26-32); Mean Corpuscular Hgb Concent. 29.4 g/dL (32-36); Monocyte (Absolute #) 0.38 x10^3/uL (0.0-1.3); Monocytes % 8.2 % (0.0-12.0); Neutrophil % 68.8 % (36.0-66.0); Platelet Count 261 x10^3/uL (150-450); Red Blood Count 3.14 x10^6/uL (4.1-5.4); Red Cell Distribution Width 15.9 % (11.5-14.0); White Blood Count 4.6 x10^3/uL (4.0-10.5)
--- NOTE | 2022-06-03 04:11 | ERPHSYRPT ---
- History of Present Illness Time Seen by Provider: 06/03/22 03:30 Source: patient Exam Limitations: no limitations Patient Subjective Stated Complaint: I've been short of breath x2-3 days and it's worse when I lay down to sleep. Triage Nursing Assessment: pt ambulated into ER having sob. Pt c/o sob x3 days and has a non prod cough. Pt denies any chest pain. Lungs clear ant and post, heart tones reg. Abd obese and round with active bs x4 quad, nontender. Pt has been around 2 grandchildren with covid and was tested on Wednesday at [facility] and was negative. Physician History: Patient is a 62-year-old female presents to emergency department for evaluation of shortness of breath. Symptoms have been progressive over the past 3 days. Patient states that shortness of breath is worse when she lays flat. Shortness of breath improves when she sits upright. She has been experiencing some dry cough. No fever. Patient denies chest pain. No nausea vomiting or diaphoresis. No diarrhea. No rash. Symptoms are mild to moderate in intensity. Patient voices no other complaints or concerns at this time. Portions of this note were created with voice recognition technology. There may be grammatical, spelling, punctuation or sound alike errors Timing/Duration: day(s) (3 days) Activities at Onset: none Severity of Dyspnea-Max: moderate Severity of Dyspnea-Current: mild Possible Cause: occasional episodes Modifying Factors: Improves With: lying down Associated Symptoms: cough, ankle swelling, dizziness, No fever, No wheezing, No hemoptysis, No painful breathing, No tightness Allergies/Adverse Reactions: cyclobenzaprine HCl [From Flexeril] Allergy (Mild, Verified 06/03/22 03:37) Rash metoclopramide [From Reglan] Allergy (Mild, Verified 06/03/22 03:37) Rash Sulfa (Sulfonamide Antibiotics) [Sulfa(Sulfonamide Antibiotics)] Allergy (Mild, Verified 06/03/22 03:37) Rash adhesive Allergy (Verified 06/03/22 03:37) Rash nalbuphine HCl [From Nubain] Adverse Reaction (Intermediate, Verified 06/03/22 03:37) Stomach Cramps patient states she had stomach "burning" and that her legs felt like "rubber bands" ciprofloxacin [From Cipro] Adverse Reaction (Mild, Verified 06/03/22 03:37) Rash meperidine HCl [From Demerol] Adverse Reaction (Mild, Verified 06/03/22 03:37) Vomiting morphine Adverse Reaction (Verified 06/03/22 03:37) ADDICTION PT STATES SHE TOOK MORPHINE YEARS AGO AND IT WAS HARD TO GET OFF OF IT AND DOES NOT WANT IT Home Medications: Duloxetine HCl 60 mg PO DAILY 03/17/16 [History] Mesalamine [Pentasa] 500 mg PO BID 03/17/16 [History] Methocarbamol [Robaxin] 1,000 mg PO QIDPRN PRN 03/17/16 [History] Omeprazole 20 MG [Prilosec 20 mg] 20 mg PO BID 03/17/16 [History] Atorvastatin Calcium 10 mg PO DAILY 01/25/18 [History] Insulin Glargine,Hum.rec.anlog [Basaglar Kwikpen U-100] 38 unit SQ HS 12/05/19 [History] Meclizine HCl 25 mg [Antivert 25 mg] 25 mg PO DAILY PRN PRN 12/05/19 [History] Insulin Aspart [Novolog] 44 unit SQ AC 08/02/20 [History] Isosorbide Mononitrate 60 mg [Imdur 60MG] 120 mg PO DAILY 12/31/20 [History] Levothyroxine Sodium 25 Mcg [Synthroid 25 Mcg] 25 mcg PO DAILY 12/31/20 [History] Metoprolol Succinate 100 mg [Toprol Xl 100 MG] 100 mg PO DAILY 12/31/20 [History] PARoxetine HCl [Paxil] 30 mg PO DAILY 01/18/21 [History] Rivaroxaban [Xarelto] 20 mg PO DAILY 06/03/22 [History] Hx Tetanus, Diphtheria Vaccination/Date Given: No (unknown) Hx Influenza Vaccination/Date Given: No Hx Pneumococcal Vaccination/Date Given: No Immunizations Up to Date: No Travel Risk - International Travel Have you traveled outside of the country in past 3 weeks: No - Coronavirus Screening Are you exhibiting any of the following symptoms?: No Symptoms: Shortness of Breath, Headaches/Body Aches/Fatigue Close contact with a COVID-19 positive Pt in past 14-21 Days: Yes - Vaccine Status Have you recieved a Covid-19 vaccination: No - Review of Systems Constitutional: No Symptoms, No Fever, No Chills Eyes: No Symptoms Ears, Nose, & Throat: No Symptoms Respiratory: No Symptoms, No Cough, No Dyspnea Cardiac: No Symptoms, No Chest Pain, No Edema, No Syncope Abdominal/Gastrointestinal: No Symptoms, No Abdominal Pain, No Nausea, No Vomiting, No Diarrhea Genitourinary Symptoms: No Symptoms, No Dysuria Musculoskeletal: No Symptoms, No Back Pain, No Neck Pain Skin: No Symptoms, No Rash Neurological: No Symptoms, No Dizziness, No Focal Weakness, No Sensory Changes Psychological: No Symptoms Endocrine: No Symptoms Hematologic/Lymphatic: No Symptoms Immunological/Allergic: No Symptoms All Other Systems: Reviewed and Negative - Past Medical History Pertinent Past Medical History: Yes Neurological History: Migraines, Peripheral Neuropathy ENT History: Cataracts Cardiac History: Coronary Artery Disease, High Cholesterol, Hypertension, Myocardial Infarction ([place]) Respiratory History: Asthma, Bronchitis, CHF, COPD, Sleep Apnea Endocrine Medical History: Diabetes Type II Musculoskeletal History: Arthritis, Degenerative Disk Disease, Fibromyalgia, Osteoarthritis GI Medical History: Crohns Disease, Diverticulitis, GERD, Irritable Bowel History: No Pertinent History Psycho-Social History: Anxiety, Depression Female Reproductive Disorders: No Pertinent History Other Medical History: HX UTI, HX Yeast Infection, Neuropathy, degenerative joint disease - Past Surgical History Past Surgical History: Yes Neuro Surgical History: No Pertinent History Cardiac: Cardiac Catheterization Respiratory: No Pertinent History Gastrointestinal: No Pertinent History Genitourinary: No Pertinent History Musculoskeletal: No Pertinent History Female Surgical History: Dilation & Curettage, Section, Tubal Ligation Other Surgical History: KIDNEY STONE REMOVAL, right 2nd toe amputated 2021. heart cath x3, no stents, clot removal rt thigh artery - Social History Smoking Status: Never smoker How long have you smoked: years Exposure to second hand smoke: No Alcohol Use: None Drug Use: none Patient Lives Alone: No Significant Family History: no pertinent family hx, diabetes, hypertension - Nursing Vital Signs Nursing Vital Signs: Initial Vital Signs Temperature 98.4 F 06/03/22 03:24 Pulse Rate 111 H 06/03/22 03:24 Respiratory Rate 28 H 06/03/22 03:24 Blood Pressure 154/129 06/03/22 03:24 O2 Sat by Pulse Oximetry 98 06/03/22 03:24 Pain Scale Pain Intensity 5 - Physical Exam General Appearance: no apparent distress, alert Eye Exam: PERRL/EOMI Ears, Nose, Throat Exam: hearing grossly normal, normal ENT inspection, normal pharynx Neck Exam: normal inspection, supple, No full range of motion Respiratory Exam: normal breath sounds, lungs clear, airway intact, No chest tenderness Cardiovascular/Chest Exam: normal heart sounds, regular rate/rhythm Abdominal/Gastrointestinal Exam: soft, No tenderness, No distention, No mass Extremity Exam: non-tender, normal range of motion, normal inspection, no calf tenderness, no pedal edema Neurologic Exam: alert, oriented x 3, cooperative, digester II-XII nml as tested, sensation nml, No motor deficits Skin Exam: normal color, warm, No dry Lymphatic Exam: adenopathy SpO2 Interpretation: normal SpO2: 98 O2 Delivery: Room Air - Course Nursing assessment & vital signs reviewed: Yes EKG Interpreted by Me: RATE (99), Sinus Rhythm, NORMAL AXIS, NORMAL INTERVALS - Radiology Exams Chest X-ray Interpretation: Interpreted by me (Clear lung gillespie, normal cardiac silhouette, intact bony thorax. Osteopenia) Ordered Tests: Active Orders 24 hr Category Date Time Status Homicide Detective STAT Care 06/03/22 04:13 Active EKG-ER Only STAT Care 06/03/22 04:12 Active IV Insertion STAT Care 06/03/22 04:12 Active Pulse Oximetry (ED) STAT Care 06/03/22 04:12 Active CHEST 1 VIEW (PORTABLE) Stat Exams 06/03/22 03:57 Taken CHEST WITH CONTRAST [CT] Stat Exams 06/03/22 05:56 Taken BLOOD CULTURE Stat Lab 06/03/22 04:40 Received CBC W DIFF Stat Lab 06/03/22 04:01 Completed CMP Stat Lab 06/03/22 04:01 Completed CULTURE,URINE Stat Lab 06/03/22 03:57 Received D-DIMER QUANTITATIVE Stat Lab 06/03/22 04:30 Received NT PRO BNP Routine Lab 06/03/22 04:01 Completed TROPONIN Q4H Lab 06/03/22 04:01 Completed TROPONIN Q4H Lab 06/03/22 08:00 Ordered TROPONIN Q4H Lab 06/03/22 12:00 Ordered UA W/RFX CULTURE Stat Lab 06/03/22 03:57 Completed Respiratory Therapy Assessment DAILY RT 06/03/22 04:35 Active Medication Summary Discontinued Medications Generic Name Dose Route Start Last Admin Trade Name Fadia PRN Reason Stop Dose Admin Albuterol/Ipratropium 3 ml 06/03/22 04:18 06/03/22 04:25 Ipratropium/Albuterol Sulfate 3 Ml Ampul.Neb IH 06/03/22 04:19 3 ml STAT ONE Administration Albuterol/Ipratropium Confirm 06/03/22 04:25 Ipratropium/Albuterol Sulfate 3 Ml Ampul.Neb Administered 06/03/22 04:26 Dose 3 ml IH .STK-MED ONE Methylprednisolone Sodium 0 mg 06/03/22 04:18 06/03/22 04:31 Succinate 125 mg/ Sterile IV 06/03/22 04:19 125 mg Water 2 ml STAT ONE Administration Methylprednisolone Sodium Succinate Confirm 06/03/22 04:30 Methylprednis Sod Succ 125 Mg/2 Ml Vial Administered 06/03/22 04:31 Dose 125 mg .ROUTE .STK-MED ONE Sterile Water Confirm 06/03/22 04:30 Water For Injection,Sterile 10 Ml Vial Administered 06/03/22 04:31 Dose 10 ml IJ .STK-MED ONE Lab/Rad Data: Laboratory Result Diagrams 06/03/22 04:01 06/03/22 04:01 Laboratory Results 06/03/22 06/03/22 06/03/22 Range/Units 04:40 04:30 04:01 WBC (4.0-10.5) x10^3/uL RBC (4.1-5.4) x10^6/uL Hgb (12.0-16.0) g/dL Hct (35-47) % MCV (78-100) fL MCH (26-32) pg MCHC (32-36) g/dL RDW (11.5-14.0) % Plt Count (150-450) x10^3/uL MPV (7.5-11.0) fL Gran % (36.0-66.0) % Immature Gran % (Auto) (0.00-0.4) % Nucleat RBC Rel Count (0.00-0.1) % Eos # (Auto) (0-0.5) x10^3/uL Immature Gran # (Auto) (0.00-0.03) x10^3u/L Absolute Lymphs (auto) (1.0-4.6) x10^3/uL Absolute Monos (auto) (0.0-1.3) x10^3/uL Absolute Nucleated RBC (0.00-0.01) x10^3u/L Lymphocytes % (24.0-44.0) % Monocytes % (0.0-12.0) % Eosinophils % (0.00-5.0) % Basophils % (0.0-0.4) % Absolute Granulocytes (1.4-6.9) x10^3/uL Basophils # (0-0.4) x10^3/uL Sodium 135 L (137-145) mmol/L Potassium 4.4 (3.5-5.1) mmol/L Chloride 102 (98-107) mmol/L Carbon Dioxide 22 (22-30) mmol/L Anion Gap 15.0 (5-15) MEQ/L BUN 9 (7-17) mg/dL Creatinine 0.57 (0.52-1.04) mg/dL Estimated GFR > 60.0 ML/MIN Glucose 279 H (74-106) mg/dL Calcium 9.1 (8.4-10.2) mg/dL Total Bilirubin 0.40 (0.2-1.3) mg/dL AST 42 H (14-36) U/L ALT 24 (0-35) U/L Alkaline Phosphatase 268 H (38-126) U/L Troponin I (0.000-0.034) ng/mL NT-Pro-B Natriuret Pep (0-900) pg/mL Serum Total Protein 6.2 L (6.3-8.2) g/dL Albumin 3.3 L (3.5-5.0) g/dL Urinalys Dipstick Clnc Urine Color (YELLOW) Urine Appearance (CLEAR) Urine pH (5-6) Ur Specific [place] (1.005-1.025) POC Urine Protein Conf (Negative) Urine Ketones (NEGATIVE) Urine Nitrite (NEGATIVE) Urine Bilirubin (NEGATIVE) Urine Urobilinogen (0-1) mg/dL Urine Leukocytes (NEGATIVE) Urine WBC (Auto) (0-5) /HPF Urine RBC (Auto) (0-2) /HPF U Epithel Cells (Auto) (FEW) /HPF Urine Bacteria (Auto) Urine RBC (0-5) Jeff/ul Urine Mucus (Auto) (NEGATIVE) /HPF Ur Culture Indicated? Urine Glucose (NEGATIVE) mg/dL Influenza Type A Ag NEGATIVE (NEGATIVE) Influenza Type B Ag NEGATIVE (NEGATIVE) RSV (PCR) NEGATIVE (Negative) SARS-CoV-2 (PCR) NEGATIVE (NEGATIVE) ABO Group A Rh Factor POSITIVE Antibody Screen NEGATIVE (NEGATIVE) 06/03/22 06/03/22 06/03/22 Range/Units 04:01 04:01 03:57 WBC 4.6 (4.0-10.5) x10^3/uL RBC 3.14 L (4.1-5.4) x10^6/uL Hgb 8.6 L (12.0-16.0) g/dL Hct 29.3 L (35-47) % MCV 93.3 (78-100) fL MCH 27.4 (26-32) pg MCHC 29.4 L (32-36) g/dL RDW 15.9 H (11.5-14.0) % Plt Count 261 (150-450) x10^3/uL MPV 12.0 H (7.5-11.0) fL Gran % 68.8 H (36.0-66.0) % Immature Gran % (Auto) 0.2 (0.00-0.4) % Nucleat RBC Rel Count 0.0 (0.00-0.1) % Eos # (Auto) 0.21 (0-0.5) x10^3/uL Immature Gran # (Auto) 0.01 (0.00-0.03) x10^3u/L Absolute Lymphs (auto) 0.82 L (1.0-4.6) x10^3/uL Absolute Monos (auto) 0.38 (0.0-1.3) x10^3/uL Absolute Nucleated RBC 0.00 (0.00-0.01) x10^3u/L Lymphocytes % 17.7 L (24.0-44.0) % Monocytes % 8.2 (0.0-12.0) % Eosinophils % 4.5 (0.00-5.0) % Basophils % 0.6 (0.0-0.4) % Absolute Granulocytes 3.17 (1.4-6.9) x10^3/uL Basophils # 0.03 (0-0.4) x10^3/uL Sodium (137-145) mmol/L Potassium (3.5-5.1) mmol/L Chloride (98-107) mmol/L Carbon Dioxide (22-30) mmol/L Anion Gap (5-15) MEQ/L BUN (7-17) mg/dL Creatinine (0.52-1.04) mg/dL Estimated GFR ML/MIN Glucose (74-106) mg/dL Calcium (8.4-10.2) mg/dL Total Bilirubin (0.2-1.3) mg/dL AST (14-36) U/L ALT (0-35) U/L Alkaline Phosphatase (38-126) U/L Troponin I < 0.012 (0.000-0.034) ng/mL NT-Pro-B Natriuret Pep 888 (0-900) pg/mL Serum Total Protein (6.3-8.2) g/dL Albumin (3.5-5.0) g/dL Urinalys Dipstick Clnc MAIN LAB Urine Color YELLOW (YELLOW) Urine Appearance CLEAR (CLEAR) Urine pH 6.0 (5-6) Ur Specific [place] 1.025 (1.005-1.025) POC Urine Protein Conf NEGATIVE (Negative) Urine Ketones NEGATIVE (NEGATIVE) Urine Nitrite NEGATIVE (NEGATIVE) Urine Bilirubin NEGATIVE (NEGATIVE) Urine Urobilinogen 0.2 (0-1) mg/dL Urine Leukocytes SMALL (NEGATIVE) Urine WBC (Auto) 3-5 (0-5) /HPF Urine RBC (Auto) 3-5 (0-2) /HPF U Epithel Cells (Auto) FEW (FEW) /HPF Urine Bacteria (Auto) Not Reportable Urine RBC NEGATIVE (0-5) Jeff/ul Urine Mucus (Auto) SLIGHT (NEGATIVE) /HPF Ur Culture Indicated? YES Urine Glucose 500 (NEGATIVE) mg/dL Influenza Type A Ag (NEGATIVE) Influenza Type B Ag (NEGATIVE) RSV (PCR) (Negative) SARS-CoV-2 (PCR) (NEGATIVE) ABO Group Rh Factor Antibody Screen (NEGATIVE) - Progress Progress: improved Air Movement: good Progress Note: 06/03/22 06:[address] Chapman who excepts admission to observation. Patient is profoundly anemic. Type and screen blood ordered however due to antibodies blood would not be available till this afternoon. Patient has a history of PE. She has not been compliant with her anticoagulation/blood thinner. D-dimer not available due to machine not working. CTA chest ordered. Results pending. Change of shift. Patient Dors Dr. Saleh who will follow up on CTA chest. Patient will be admitted for further evaluation and treatment. Portions of this note were created with voice recognition technology. There may be grammatical, spelling, punctuation or sound alike errors Blood Culture(s) Obtained: Yes Antibiotics given: No Discussed with : Gm Will see patient in: hospital (observation) Counseled pt/family regarding: lab results, diagnosis, rad results - Departure Departure Disposition: Observation Clinical Impression: SOB (shortness of breath), Normocytic anemia Condition: Stable Critical Care Time: No Referrals: CALVIN PALOMINO [Primary Care Provider] - Follow up/PCP as directed
[2022-06-03] MEDS ORDERED: solu-MEDROL 125 MG, Sterile H2O 10 ml 2 ML IV ONE ×2 (04:18)
[2022-06-03] MEDS ORDERED: DUONEB 0.5-3 MG/3 ml Neb IH ONE ×2 (04:18→04:25)
[2022-06-03] MEDS ORDERED: solu-MEDROL ONE ×2 (04:30→17:29)
[2022-06-03] MEDS ORDERED: Sterile H2O 10 ml IJ ONE (04:30)
[2022-06-03 05:06] LABS: Epithelial Cells FEW /HPF (FEW); Mucus SLIGHT /HPF (NEGATIVE)
[2022-06-03 05:07] LABS: Appearance CLEAR (CLEAR); Bilirubin NEGATIVE (NEGATIVE); Dipstick done @ ? MAIN LAB; Glucose 500 mg/dL (NEGATIVE); Ketones NEGATIVE (NEGATIVE); Nitrite NEGATIVE (NEGATIVE); Protein,Urine Dip NEGATIVE (Negative); RBC NEGATIVE Ery/ul (0-5); Specific Gravity 1.025 (1.005-1.025); Urobilinogen 0.2 mg/dL (0-1)
[2022-06-03 05:09] LABS: Urine Cultured Indicated? YES
[2022-06-03 05:20] LABS: INFLUENZA A NEGATIVE (NEGATIVE); INFLUENZA B NEGATIVE (NEGATIVE); RESPIRATORY SYNCTIAL VIRUS NEGATIVE (Negative); SARS-CoV-2 Xpert Express NEGATIVE (NEGATIVE)
[2022-06-03 05:22] LABS: ALBUMIN 3.3 g/dL (3.5-5.0); ALKALINE PHOSPHATASE 268 U/L (38-126); BLOOD UREA NITROGEN 9 mg/dL (7-17); CHLORIDE 102 mmol/L (98-107); Calcium 9.1 mg/dL (8.4-10.2); Carbon Dioxide 22 mmol/L (22-30); Creatinine 1 0.57 mg/dL (0.52-1.04); EST GLOMERULAR FILTRATION RATE > 60.0 ML/MIN; Glucose 279 mg/dL (74-106); Potassium 4.4 mmol/L (3.5-5.1); SGOT/AST 42 U/L (14-36); SGPT/ALT 24 U/L (0-35); SODIUM 135 mmol/L (137-145); Total Protein 6.2 g/dL (6.3-8.2)
[2022-06-03 05:33] LABS: NT PRO BNP 888 pg/mL (0-900); TROPONIN < 0.012 ng/mL (0.000-0.034)
[2022-06-03 06:07] LABS: ABO TYPING A; RH TYPING POSITIVE
[2022-06-03 06:08] LABS: Antibody Screen NEGATIVE (NEGATIVE)
[2022-06-03] MEDS ORDERED: MORPHINE SULFATE 4 MG INJ IV ONE (06:29)
[2022-06-03] MEDS ORDERED: MORPHINE SULFATE 4 MG INJ ONE (06:50)
[2022-06-03] MEDS: Sodium Chloride 0.9% 1000 ML 1,000 ML IV SCH (08:57)
[2022-06-03] MEDS ORDERED: VENTOLIN COMMON CANISTER IH PRN (09:04)
[2022-06-03] MEDS: solu-MEDROL 60 MG, Sterile H2O 10 ml 2 ML IV SCH ×6 (12:17→23:08)
[2022-06-03] MEDS: HUMALOG SQ PRN ×3 (12:31→21:22)
[2022-06-03] MEDS ORDERED: xanAX 0.5 MG PO PRN (13:01)
[2022-06-03] MEDS ORDERED: NORCO 5/325 MG PO PRN (13:01)
[2022-06-03] MEDS ORDERED: Reglan 10 MG PO PRN (13:01)
[2022-06-03] MEDS ORDERED: Robaxin PO PRN (13:01)
[2022-06-03] MEDS ORDERED: Nitrostat 0.4 MG Tablet SL PRN (13:01)
[2022-06-03] MEDS ORDERED: IMODIUM 2 MG PO PRN (13:01)
[2022-06-03] MEDS ORDERED: ANTIVERT 25 MG PO PRN (13:01)
[2022-06-03] MEDS ORDERED: VITAMIN D2 PO SCH (13:15)
[2022-06-03] MEDS ORDERED: XARELTO 10 MG TABLET PO SCH (14:00)
[2022-06-03] MEDS ORDERED: ECOTRIN 81 MG PO SCH (14:00)
[2022-06-03] MEDS ORDERED: MEDICATION INTERVENTION MC SCH (14:00)
[2022-06-03] MEDS: MORPHINE SULFATE 4 MG INJ IV PRN ×2 (14:02→19:51)
[2022-06-03] MEDS: Lantus Insulin SQ SCH ×2 (14:03→21:21)
[2022-06-03] MEDS: MAG-OX 400 PO SCH (14:04)
[2022-06-03] MEDS: Januvia 50 MG PO SCH (14:04)
[2022-06-03] MEDS: Acidophilus TABLET PO SCH ×2 (14:05→21:19)
[2022-06-03] MEDS: Ranexa 500 MG PO SCH ×2 (14:05→21:21)
[2022-06-03] MEDS: Imdur 60MG PO SCH (14:05)
[2022-06-03] MEDS: Protonix 40MG Tablet PO SCH ×2 (14:05→21:20)
[2022-06-03] MEDS: Zestril 5 MG PO SCH (14:05)
[2022-06-03] MEDS: MYSOLINE 50MG PO SCH ×2 (14:05→21:20)
[2022-06-03] MEDS: DELTASONE 20 MG PO SCH ×2 (14:05→21:20)
[2022-06-03] MEDS: Zocor 10MG PO SCH (14:06)
[2022-06-03] MEDS: Abilify 10 MG PO SCH (14:07)
[2022-06-03] MEDS: COREG 12.5 MG PO SCH ×2 (14:08→21:19)
[2022-06-03] MEDS: Paxil 20 MG PO SCH (14:08)
[2022-06-03] MEDS: Cymbalta 30 MG Capsule PO SCH (14:09)
[2022-06-03] MEDS: SYNTHROID 25 MCG PO SCH (14:11)
[2022-06-03] MEDS: NON-FORMULARY ITEM PO SCH ×2 (14:19→21:21)
[2022-06-03 15:54] LABS: Absolute Neutrophil Ct (ANC) 5.01 x10^3/uL (1.4-6.9); Basophil (Absolute #) 0.01 x10^3/uL (0-0.4); Eosinophil (Absolute #) 0 x10^3/uL (0-0.5); Hematocrit 29.7 % (35-47); Lymphocyte (Absolute #) 0.33 x10^3/uL (1.0-4.6); Lymphocytes % 6.1 % (24.0-44.0); Mean Cell Volume 92.5 fL (78-100); Mean Corpuscular Hgb Concent. 30.3 g/dL (32-36); Mean Platelet Volume 11.8 fL (7.5-11.0); Monocyte (Absolute #) 0.04 x10^3/uL (0.0-1.3); Monocytes % 0.7 % (0.0-12.0); Neutrophil % 92.6 % (36.0-66.0); Platelet Count 271 x10^3/uL (150-450); Red Blood Count 3.21 x10^6/uL (4.1-5.4); Red Cell Distribution Width 15.9 % (11.5-14.0); White Blood Count 5.4 x10^3/uL (4.0-10.5)
[2022-06-03] MEDS ORDERED: NON-FORMULARY ITEM (Insulin Aspart [Novolog] 100 UNIT/ML Vial) SQ SCH (16:30)
[2022-06-03] MEDS: HUMALOG SQ SCH (17:08)
[2022-06-03] MEDS: Glucophage 500 MG PO SCH ×2 (17:30→18:04)
--- NOTE | 2022-06-03 17:45 | PCM.HP ---
History of Present Illness - Chief Complaint Chief Complaint: shortness of breath for 1 day History of Present Illness: is a 62 year old female.presents to emergency department for evaluation of shortness of breath. Symptoms have been progressive over the past 3 days. Patient states that shortness of breath is worse when she lays flat. Shortness of breath improves when she sits upright. She has been experiencing some dry cough. No fever. Patient denies chest pain. No nausea vomiting or diaphoresis. No diarrhea. No rash. Symptoms are mild to moderate in intensity. Patient voices no other complaints or concerns at this time. - Review of Systems Constitutional: No Fever, No Chills Eyes: No Symptoms Ears, Nose, & Throat: No Symptoms Respiratory: Cough, Short Of Breath, Wheezing Cardiac: No Chest Pain, No Edema, No Syncope Abdominal/Gastrointestinal: No Abdominal Pain, No Nausea, No Vomiting, No Diarrhea Genitourinary Symptoms: No Dysuria Musculoskeletal: No Back Pain, No Neck Pain Skin: No Rash Neurological: No Dizziness, No Focal Weakness, No Sensory Changes Psychological: No Symptoms Endocrine: No Symptoms Hematologic/Lymphatic: No Symptoms Immunological/Allergic: No Symptoms Medications & Allergies Home Medications: Home Medication List Duloxetine HCl 60 mg PO DAILY 03/17/16 [History Confirmed 06/03/22] Mesalamine [Pentasa] 500 mg PO BID 03/17/16 [History Confirmed 06/03/22] Methocarbamol [Robaxin] 1,000 mg PO QIDPRN PRN 03/17/16 [History Confirmed 06/03/22] Omeprazole 20 MG [Prilosec 20 mg] 20 mg PO BID 03/17/16 [History Confirmed 06/03/22] Atorvastatin Calcium 10 mg PO DAILY 01/25/18 [History Confirmed 06/03/22] Insulin Glargine,Hum.rec.anlog [Basaglar Kwikpen U-100] 20 unit SQ HS 12/05/19 [History Confirmed 06/03/22] Meclizine HCl 25 mg [Antivert 25 mg] 25 mg PO Q8H PRN PRN 12/05/19 [History Confirmed 06/03/22] Insulin Aspart [Novolog] 7 unit SQ AC 08/02/20 [History Confirmed 06/03/22] Isosorbide Mononitrate 60 mg [Imdur 60MG] 60 mg PO DAILY 12/31/20 [History Confirmed 06/03/22] Levothyroxine Sodium 25 Mcg [Synthroid 25 Mcg] 25 mcg PO DAILY 12/31/20 [History Confirmed 06/03/22] PARoxetine HCl [Paxil] 30 mg PO DAILY 01/18/21 [History Confirmed 06/03/22] Alprazolam [Xanax] 0.5 mg PO TID PRN PRN 06/03/22 [History Confirmed 06/03/22] Aripiprazole [Abilify] 2 mg PO DAILY 06/03/22 [History Confirmed 06/03/22] Aspirin [Aspirin EC] 81 mg PO DAILY 06/03/22 [History Confirmed 06/03/22] Duloxetine HCl 60 mg PO DAILY 06/03/22 [History Confirmed 06/03/22] Ergocalciferol (Vitamin D2) [Vitamin D2] 1,250 mcg PO 2XW 06/03/22 [History Confirmed 06/03/22] Ergocalciferol (Vitamin D2) [Vitamin D2] 50,000 unit PO 2XW 06/03/22 [History Confirmed 06/03/22] Fluticasone Propion/Salmeterol [Fluticasone-Salmeterol 250-50] 1 each IH BIDRT 06/03/22 [History Confirmed 06/03/22] Hydrocodone/Acetaminophen [Hydrocodone-Acetamin 5-325 mg] 1 tab PO Q6HPRN PRN MDD 4 06/03/22 [History Confirmed 06/03/22] Insulin Detemir [Levemir] 20 unit SQ BID 06/03/22 [History Confirmed 06/03/22] Loperamide HCl [Loperamide] 4 mg PO Q12H PRN PRN 06/03/22 [History Confirmed 06/03/22] Magnesium Oxide 400 mg [Mag-Ox 400] 800 mg PO DAILY 06/03/22 [History Confirmed 06/03/22] Metformin HCl [Metformin ER Osmotic] 1,000 mg PO BID 06/03/22 [History Confirmed 06/03/22] Metoclopramide HCl [Reglan] 10 mg PO Q6H PRN PRN 06/03/22 [History Confirmed 06/03/22] Nitroglycerin 0.4 mg Tablet [Nitrostat 0.4 MG Tablet] 0.4 mg SL Q5MIN PRN MR X 3 PRN 06/03/22 [History Confirmed 06/03/22] Pravastatin Sodium 80 mg PO DAILY 06/03/22 [History Confirmed 06/03/22] Prednisone 20 mg [Deltasone 20 mg] 20 mg PO BID 06/03/22 [History Confirme d 06/03/22] Primidone 50 MG [Mysoline 50Mg] 50 mg PO TID 06/03/22 [History Confirmed 06/03/22] Ranolazine 500 MG [Ranexa 500 MG] 500 mg PO BID 06/03/22 [History Confirmed 06/03/22] Rivaroxaban [Xarelto] 20 mg PO DAILY 06/03/22 [History Confirmed 06/03/22] Rivaroxaban [Xarelto] 20 mg PO DAILY 06/03/22 [History Confirmed 06/03/22] Saccharomyces Boulardii [Florastor] 250 mg PO BID 06/03/22 [History Confirmed 06/03/22] Sitagliptin Phosphate [Januvia] 100 mg PO DAILY 06/03/22 [History Confirmed 06/03/22] azaTHIOprine [Azathioprine] 50 mg PO BID 06/03/22 [History Confirmed 06/03/22] carvediloL [Carvedilol] 25 mg PO BID 06/03/22 [History Confirmed 06/03/22] lisinopriL [Zestril] 2.5 mg PO DAILY 06/03/22 [History Confirmed 06/03/22] Allergies/Adverse Reactions: Allergies Allergy/AdvReac Type Severity Reaction Status Date / Time cyclobenzaprine HCl Allergy Mild Rash Verified 06/03/22 03:37 [From Flexeril] metoclopramide [From Reglan] Allergy Mild Rash Verified 06/03/22 03:37 Sulfa (Sulfonamide Allergy Mild Rash Verified 06/03/22 03:37 Antibiotics) [Sulfa(Sulfonamide Antibiotics)] adhesive Allergy Rash Verified 06/03/22 03:37 nalbuphine HCl [From Nubain] AdvReac Intermediate Stomach Verified 06/03/22 03:37 Cramps ciprofloxacin [From Cipro] AdvReac Mild Rash Verified 06/03/22 03:37 meperidine HCl [From Demerol] AdvReac Mild Vomiting Verified 06/03/22 03:37 - Past Medical History Past Medical History: Yes Neurological History: Migraines, Peripheral Neuropathy ENT History: Cataracts Cardiac History: Coronary Artery Disease, High Cholesterol, Hypertension, Myocardial Infarction ([place]) Respiratory History: Asthma, Bronchitis, CHF, COPD, Sleep Apnea Endocrine Medical History: Diabetes Type II Musculoskelatal History: Arthritis, Degenerative Disk Disease, Fibromyalgia, Osteoarthritis GI Medical History: Crohns Disease, Diverticulitis, GERD, Irritable Bowel History: No Pertinent History Pyscho-Social History: Anxiety, Depression Reproductive Disorders: No Pertinent History Comment: HX UTI, HX Yeast Infection, Neuropathy, degenerative joint disease - Female History Are you now?: No - Past Surgical History Past Surgical History: Yes Neuro Surgical History: No Pertinent History Cardiac History: Cardiac Catheterization Respiratory Surgery: No Pertinent History GI Surgical History: No Pertinent History Genitourinary Surgical Hx: No Pertinent History Musculskeletal Surgical Hx: No Pertinent History Female Surgical History: Dilation & Curettage, Section, Tubal Ligation Other Surgical History: KIDNEY STONE REMOVAL, right 2nd toe amputated 2021. heart cath x3, no stents, clot removal rt thigh artery - Social History Smoking Status: Former smoker How long have you smoked: years Exposure to second hand smoke: No Alcohol: None Drug Use: none Significant Family History: no pertinent family hx, diabetes, hypertension - Physical Exam Vital Signs: Vital Signs - 24 hr Temp Pulse Resp BP Pulse Ox 06/03/22 16:00 97.8 F 93 H 18 138/69 94 L 06/03/22 12:00 98.2 F 96 H 17 147/74 94 L 06/03/22 09:17 96 H 17 94 L 06/03/22 08:39 98.2 F 96 H 17 153/81 94 L 06/03/22 06:51 98 06/03/22 06:22 89 22 180/92 97 06/03/22 05:00 96 H 17 153/107 97 06/03/22 04:27 99 06/03/22 04:25 89 36 H 100 06/03/22 04:00 91 H 30 H 194/100 99 06/03/22 03:34 28 H 98 06/03/22 03:24 98.4 F 111 H 28 H 154/129 98 General Appearance: no apparent distress, alert Neurologic Exam: alert, oriented x 3, cooperative, normal mood/affect, nml cerebellar function, nml station & gait, sensation nml, No motor deficits Eye Exam: PERRL/EOMI, eyes nml inspection Ears, Nose, Throat Exam: normal ENT inspection, TMs normal, pharynx normal, moist mucous membranes Neck Exam: normal inspection, non-tender, supple, full range of motion Respiratory Exam: diminished breath sounds, rhonchi, wheezing, No respiratory distress Cardiovascular Exam: regular rate/rhythm, normal heart sounds, normal peripheral pulses Gastrointestinal/Abdomen Exam: soft, normal bowel sounds, No tenderness, No mass Back Exam: normal inspection, normal range of motion, No CVA tenderness, No vertebral tenderness Extremity Exam: normal inspection, normal range of motion, pelvis stable Skin Exam: normal color, warm, dry, No rash Lymphatic Exam: No adenopathy Results - Labs Lab/Micro Results: Lab Results-Last 24 Hours 06/03/22 06/03/22 06/03/22 Range/Units 03:57 04:01 04:01 WBC 4.6 (4.0-10.5) x10^3/uL RBC 3.14 L (4.1-5.4) x10^6/uL Hgb 8.6 L (12.0-16.0) g/dL Hct 29.3 L (35-47) % MCV 93.3 (78-100) fL MCH 27.4 (26-32) pg MCHC 29.4 L (32-36) g/dL RDW 15.9 H (11.5-14.0) % Plt Count 261 (150-450) x10^3/uL MPV 12.0 H (7.5-11.0) fL Gran % 68.8 H (36.0-66.0) % Immature Gran % (Auto) 0.2 (0.00-0.4) % Nucleat RBC Rel Count 0.0 (0.00-0.1) % Eos # (Auto) 0.21 (0-0.5) x10^3/uL Immature Gran # (Auto) 0.01 (0.00-0.03) x10^3u/L Absolute Lymphs (auto) 0.82 L (1.0-4.6) x10^3/uL Absolute Monos (auto) 0.38 (0.0-1.3) x10^3/uL Absolute Nucleated RBC 0.00 (0.00-0.01) x10^3u/L Lymphocytes % 17.7 L (24.0-44.0) % Monocytes % 8.2 (0.0-12.0) % Eosinophils % 4.5 (0.00-5.0) % Basophils % 0.6 (0.0-0.4) % Absolute Granulocytes 3.17 (1.4-6.9) x10^3/uL Basophils # 0.03 (0-0.4) x10^3/uL D-Dimer (0.0-0.50) mg/L Sodium (137-145) mmol/L Potassium (3.5-5.1) mmol/L Chloride (98-107) mmol/L Carbon Dioxide (22-30) mmol/L Anion Gap (5-15) MEQ/L BUN (7-17) mg/dL Creatinine (0.52-1.04) mg/dL Estimated GFR ML/MIN Glucose (74-106) mg/dL POC Glucometer (74 to 106) mg/dL Calcium (8.4-10.2) mg/dL Total Bilirubin (0.2-1.3) mg/dL AST (14-36) U/L ALT (0-35) U/L Alkaline Phosphatase (38-126) U/L Troponin I < 0.012 (0.000-0.034) ng/mL NT-Pro-B Natriuret Pep 888 (0-900) pg/mL Serum Total Protein (6.3-8.2) g/dL Albumin (3.5-5.0) g/dL Urinalys Dipstick Clnc MAIN LAB Urine Color YELLOW (YELLOW) Urine Appearance CLEAR (CLEAR) Urine pH 6.0 (5-6) Ur Specific [place] 1.025 (1.005-1.025) POC Urine Protein Conf NEGATIVE (Negative) Urine Ketones NEGATIVE (NEGATIVE) Urine Nitrite NEGATIVE (NEGATIVE) Urine Bilirubin NEGATIVE (NEGATIVE) Urine Urobilinogen 0.2 (0-1) mg/dL Urine Leukocytes SMALL (NEGATIVE) Urine WBC (Auto) 3-5 (0-5) /HPF Urine RBC (Auto) 3-5 (0-2) /HPF U Epithel Cells (Auto) FEW (FEW) /HPF Urine Bacteria (Auto) Not Reportable Urine RBC NEGATIVE (0-5) Jeff/ul Urine Mucus (Auto) SLIGHT (NEGATIVE) /HPF Ur Culture Indicated? YES Urine Glucose 500 (NEGATIVE) mg/dL Influenza Type A Ag (NEGATIVE) Influenza Type B Ag (NEGATIVE) RSV (PCR) (Negative) SARS-CoV-2 (PCR) (NEGATIVE) ABO Group Rh Factor Antibody Screen (NEGATIVE) 06/03/22 06/03/22 06/03/22 Range/Units 04:01 04:30 04:30 WBC (4.0-10.5) x10^3/uL RBC (4.1-5.4) x10^6/uL Hgb (12.0-16.0) g/dL Hct (35-47) % MCV (78-100) fL MCH (26-32) pg MCHC (32-36) g/dL RDW (11.5-14.0) % Plt Count (150-450) x10^3/uL MPV (7.5-11.0) fL Gran % (36.0-66.0) % Immature Gran % (Auto) (0.00-0.4) % Nucleat RBC Rel Count (0.00-0.1) % Eos # (Auto) (0-0.5) x10^3/uL Immature Gran # (Auto) (0.00-0.03) x10^3u/L Absolute Lymphs (auto) (1.0-4.6) x10^3/uL Absolute Monos (auto) (0.0-1.3) x10^3/uL Absolute Nucleated RBC (0.00-0.01) x10^3u/L Lymphocytes % (24.0-44.0) % Monocytes % (0.0-12.0) % Eosinophils % (0.00-5.0) % Basophils % (0.0-0.4) % Absolute Granulocytes (1.4-6.9) x10^3/uL Basophils # (0-0.4) x10^3/uL D-Dimer 1.19 H* (0.0-0.50) mg/L Sodium 135 L (137-145) mmol/L Potassium 4.4 (3.5-5.1) mmol/L Chloride 102 (98-107) mmol/L Carbon Dioxide 22 (22-30) mmol/L Anion Gap 15.0 (5-15) MEQ/L BUN 9 (7-17) mg/dL Creatinine 0.57 (0.52-1.04) mg/dL Estimated GFR > 60.0 ML/MIN Glucose 279 H (74-106) mg/dL POC Glucometer (74 to 106) mg/dL Calcium 9.1 (8.4-10.2) mg/dL Total Bilirubin 0.40 (0.2-1.3) mg/dL AST 42 H (14-36) U/L ALT 24 (0-35) U/L Alkaline Phosphatase 268 H (38-126) U/L Troponin I (0.000-0.034) ng/mL NT-Pro-B Natriuret Pep (0-900) pg/mL Serum Total Protein 6.2 L (6.3-8.2) g/dL Albumin 3.3 L (3.5-5.0) g/dL Urinalys Dipstick Clnc Urine Color (YELLOW) Urine Appearance (CLEAR) Urine pH (5-6) Ur Specific [place] (1.005-1.025) POC Urine Protein Conf (Negative) Urine Ketones (NEGATIVE) Urine Nitrite (NEGATIVE) Urine Bilirubin (NEGATIVE) Urine Urobilinogen (0-1) mg/dL Urine Leukocytes (NEGATIVE) Urine WBC (Auto) (0-5) /HPF Urine RBC (Auto) (0-2) /HPF U Epithel Cells (Auto) (FEW) /HPF Urine Bacteria (Auto) Urine RBC (0-5) Jeff/ul Urine Mucus (Auto) (NEGATIVE) /HPF Ur Culture Indicated? Urine Glucose (NEGATIVE) mg/dL Influenza Type A Ag (NEGATIVE) Influenza Type B Ag (NEGATIVE) RSV (PCR) (Negative) SARS-CoV-2 (PCR) (NEGATIVE) ABO Group A Rh Factor POSITIVE Antibody Screen NEGATIVE (NEGATIVE) 06/03/22 06/03/22 06/03/22 Range/Units 04:40 08:00 12:28 WBC (4.0-10.5) x10^3/uL RBC (4.1-5.4) x10^6/uL Hgb (12.0-16.0) g/dL Hct (35-47) % MCV (78-100) fL MCH (26-32) pg MCHC (32-36) g/dL RDW (11.5-14.0) % Plt Count (150-450) x10^3/uL MPV (7.5-11.0) fL Gran % (36.0-66.0) % Immature Gran % (Auto) (0.00-0.4) % Nucleat RBC Rel Count (0.00-0.1) % Eos # (Auto) (0-0.5) x10^3/uL Immature Gran # (Auto) (0.00-0.03) x10^3u/L Absolute Lymphs (auto) (1.0-4.6) x10^3/uL Absolute Monos (auto) (0.0-1.3) x10^3/uL Absolute Nucleated RBC (0.00-0.01) x10^3u/L Lymphocytes % (24.0-44.0) % Monocytes % (0.0-12.0) % Eosinophils % (0.00-5.0) % Basophils % (0.0-0.4) % Absolute Granulocytes (1.4-6.9) x10^3/uL Basophils # (0-0.4) x10^3/uL D-Dimer (0.0-0.50) mg/L Sodium (137-145) mmol/L Potassium (3.5-5.1) mmol/L Chloride (98-107) mmol/L Carbon Dioxide (22-30) mmol/L Anion Gap (5-15) MEQ/L BUN (7-17) mg/dL Creatinine (0.52-1.04) mg/dL Estimated GFR ML/MIN Glucose (74-106) mg/dL POC Glucometer 500 H (74 to 106) mg/dL Calcium (8.4-10.2) mg/dL Total Bilirubin (0.2-1.3) mg/dL AST (14-36) U/L ALT (0-35) U/L Alkaline Phosphatase (38-126) U/L Troponin I 0.014 (0.000-0.034) ng/mL NT-Pro-B Natriuret Pep (0-900) pg/mL Serum Total Protein (6.3-8.2) g/dL Albumin (3.5-5.0) g/dL Urinalys Dipstick Clnc Urine Color (YELLOW) Urine Appearance (CLEAR) Urine pH (5-6) Ur Specific [place] (1.005-1.025) POC Urine Protein Conf (Negative) Urine Ketones (NEGATIVE) Urine Nitrite (NEGATIVE) Urine Bilirubin (NEGATIVE) Urine Urobilinogen (0-1) mg/dL Urine Leukocytes (NEGATIVE) Urine WBC (Auto) (0-5) /HPF Urine RBC (Auto) (0-2) /HPF U Epithel Cells (Auto) (FEW) /HPF Urine Bacteria (Auto) Urine RBC (0-5) Jeff/ul Urine Mucus (Auto) (NEGATIVE) /HPF Ur Culture Indicated? Urine Glucose (NEGATIVE) mg/dL Influenza Type A Ag NEGATIVE (NEGATIVE) Influenza Type B Ag NEGATIVE (NEGATIVE) RSV (PCR) NEGATIVE (Negative) SARS-CoV-2 (PCR) NEGATIVE (NEGATIVE) ABO Group Rh Factor Antibody Screen (NEGATIVE) 06/03/22 06/03/22 06/03/22 Range/Units 12:43 15:40 16:37 WBC 5.4 (4.0-10.5) x10^3/uL RBC 3.21 L (4.1-5.4) x10^6/uL Hgb 9.0 L (12.0-16.0) g/dL Hct 29.7 L (35-47) % MCV 92.5 (78-100) fL MCH 28.0 (26-32) pg MCHC 30.3 L (32-36) g/dL RDW 15.9 H (11.5-14.0) % Plt Count 271 (150-450) x10^3/uL MPV 11.8 H (7.5-11.0) fL Gran % 92.6 H (36.0-66.0) % Immature Gran % (Auto) 0.4 (0.00-0.4) % Nucleat RBC Rel Count 0.0 (0.00-0.1) % Eos # (Auto) 0 (0-0.5) x10^3/uL Immature Gran # (Auto) 0.02 (0.00-0.03) x10^3u/L Absolute Lymphs (auto) 0.33 L (1.0-4.6) x10^3/uL Absolute Monos (auto) 0.04 (0.0-1.3) x10^3/uL Absolute Nucleated RBC 0.00 (0.00-0.01) x10^3u/L Lymphocytes % 6.1 L (24.0-44.0) % Monocytes % 0.7 (0.0-12.0) % Eosinophils % 0.0 (0.00-5.0) % Basophils % 0.2 (0.0-0.4) % Absolute Granulocytes 5.01 (1.4-6.9) x10^3/uL Basophils # 0.01 (0-0.4) x10^3/uL D-Dimer (0.0-0.50) mg/L Sodium (137-145) mmol/L Potassium (3.5-5.1) mmol/L Chloride (98-107) mmol/L Carbon Dioxide (22-30) mmol/L Anion Gap (5-15) MEQ/L BUN (7-17) mg/dL Creatinine (0.52-1.04) mg/dL Estimated GFR ML/MIN Glucose (74-106) mg/dL POC Glucometer 515 H* (74 to 106) mg/dL Calcium (8.4-10.2) mg/dL Total Bilirubin (0.2-1.3) mg/dL AST (14-36) U/L ALT (0-35) U/L Alkaline Phosphatase (38-126) U/L Troponin I < 0.012 (0.000-0.034) ng/mL NT-Pro-B Natriuret Pep (0-900) pg/mL Serum Total Protein (6.3-8.2) g/dL Albumin (3.5-5.0) g/dL Urinalys Dipstick Clnc Urine Color (YELLOW) Urine Appearance (CLEAR) Urine pH (5-6) Ur Specific [place] (1.005-1.025) POC Urine Protein Conf (Negative) Urine Ketones (NEGATIVE) Urine Nitrite (NEGATIVE) Urine Bilirubin (NEGATIVE) Urine Urobilinogen (0-1) mg/dL Urine Leukocytes (NEGATIVE) Urine WBC (Auto) (0-5) /HPF Urine RBC (Auto) (0-2) /HPF U Epithel Cells (Auto) (FEW) /HPF Urine Bacteria (Auto) Urine RBC (0-5) Jeff/ul Urine Mucus (Auto) (NEGATIVE) /HPF Ur Culture Indicated? Urine Glucose (NEGATIVE) mg/dL Influenza Type A Ag (NEGATIVE) Influenza Type B Ag (NEGATIVE) RSV (PCR) (Negative) SARS-CoV-2 (PCR) (NEGATIVE) ABO Group Rh Factor Antibody Screen (NEGATIVE) 06/03/22 Range/Units 16:48 WBC (4.0-10.5) x10^3/uL RBC (4.1-5.4) x10^6/uL Hgb (12.0-16.0) g/dL Hct (35-47) % MCV (78-100) fL MCH (26-32) pg MCHC (32-36) g/dL RDW (11.5-14.0) % Plt Count (150-450) x10^3/uL MPV (7.5-11.0) fL Gran % (36.0-66.0) % Immature Gran % (Auto) (0.00-0.4) % Nucleat RBC Rel Count (0.00-0.1) % Eos # (Auto) (0-0.5) x10^3/uL Immature Gran # (Auto) (0.00-0.03) x10^3u/L Absolute Lymphs (auto) (1.0-4.6) x10^3/uL Absolute Monos (auto) (0.0-1.3) x10^3/uL Absolute Nucleated RBC (0.00-0.01) x10^3u/L Lymphocytes % (24.0-44.0) % Monocytes % (0.0-12.0) % Eosinophils % (0.00-5.0) % Basophils % (0.0-0.4) % Absolute Granulocytes (1.4-6.9) x10^3/uL Basophils # (0-0.4) x10^3/uL D-Dimer (0.0-0.50) mg/L Sodium (137-145) mmol/L Potassium (3.5-5.1) mmol/L Chloride (98-107) mmol/L Carbon Dioxide (22-30) mmol/L Anion Gap (5-15) MEQ/L BUN (7-17) mg/dL Creatinine (0.52-1.04) mg/dL Estimated GFR ML/MIN Glucose (74-106) mg/dL POC Glucometer 578 H* (74 to 106) mg/dL Calcium (8.4-10.2) mg/dL Total Bilirubin (0.2-1.3) mg/dL AST (14-36) U/L ALT (0-35) U/L Alkaline Phosphatase (38-126) U/L Troponin I (0.000-0.034) ng/mL NT-Pro-B Natriuret Pep (0-900) pg/mL Serum Total Protein (6.3-8.2) g/dL Albumin (3.5-5.0) g/dL Urinalys Dipstick Clnc Urine Color (YELLOW) Urine Appearance (CLEAR) Urine pH (5-6) Ur Specific [place] (1.005-1.025) POC Urine Protein Conf (Negative) Urine Ketones (NEGATIVE) Urine Nitrite (NEGATIVE) Urine Bilirubin (NEGATIVE) Urine Urobilinogen (0-1) mg/dL Urine Leukocytes (NEGATIVE) Urine WBC (Auto) (0-5) /HPF Urine RBC (Auto) (0-2) /HPF U Epithel Cells (Auto) (FEW) /HPF Urine Bacteria (Auto) Urine RBC (0-5) Jeff/ul Urine Mucus (Auto) (NEGATIVE) /HPF Ur Culture Indicated? Urine Glucose (NEGATIVE) mg/dL Influenza Type A Ag (NEGATIVE) Influenza Type B Ag (NEGATIVE) RSV (PCR) (Negative) SARS-CoV-2 (PCR) (NEGATIVE) ABO Group Rh Factor Antibody Screen (NEGATIVE) Accuchecks Date 06/03/22 Date 06/03/22 - Radiology Impressions Radiology Exams & Impressions: Radiology Procedures Category Date Time Status CHEST 1 VIEW (PORTABLE) Stat Exams 06/03/22 03:57 Taken CHEST WITH CONTRAST [CT] Stat Exams 06/03/22 05:56 Taken - Other Procedures and Tests Respiratory Therapy 06/03/22 04:35 Respiratory Therapy Assessment DAILY Assessment/Plan (1) COPD exacerbation Current Visit: Yes Status: Acute Assessment & Plan: Chief Complaint Diagnosis shortness of breath Allergies Allergy/AdvReac Type Severity Reaction Status Date / Time cyclobenzaprine HCl Allergy Mild Rash Verified 06/03/22 03:37 [From Flexeril] metoclopramide [From Reglan] Allergy Mild Rash Verified 06/03/22 03:37 Sulfa (Sulfonamide Allergy Mild Rash Verified 06/03/22 03:37 Antibiotics) [Sulfa(Sulfonamide Antibiotics)] adhesive Allergy Rash Verified 06/03/22 03:37 nalbuphine HCl [From Nubain] AdvReac Intermediate Stomach Verified 06/03/22 03:37 Cramps ciprofloxacin [From Cipro] AdvReac Mild Rash Verified 06/03/22 03:37 meperidine HCl [From Demerol] AdvReac Mild Vomiting Verified 06/03/22 03:37 Vital Signs (Last 24 hours) Temp Pulse Resp BP Pulse Ox 06/03/22 16:00 97.8 F 93 H 18 138/69 94 L 06/03/22 12:00 98.2 F 96 H 17 147/74 94 L 06/03/22 09:17 96 H 17 94 L 06/03/22 08:39 98.2 F 96 H 17 153/81 94 L 06/03/22 06:51 98 06/03/22 06:22 89 22 180/92 97 06/03/22 05:00 96 H 17 153/107 97 06/03/22 04:27 99 06/03/22 04:25 89 36 H 100 06/03/22 04:00 91 H 30 H 194/100 99 06/03/22 03:34 28 H 98 06/03/22 03:24 98.4 F 111 H 28 H 154/129 98 Home Medications Medication Instructions Recorded Confirmed Last Taken Type Alprazolam [Xanax] 0.5 mg PO TID PRN PRN 06/03/22 06/03/22 Unknown History Aripiprazole [Abilify] 2 mg PO DAILY 06/03/22 06/03/22 06/02/22 History Aspirin [Aspirin EC] 81 mg PO DAILY 06/03/22 06/03/22 06/02/22 History Duloxetine HCl 60 mg PO DAILY 06/03/22 06/03/22 06/02/22 History Ergocalciferol (Vitamin D2) 1,250 mcg PO 2XW 06/03/22 06/03/22 Unknown History [Vitamin D2] Ergocalciferol (Vitamin D2) 50,000 unit PO 2XW 06/03/22 06/03/22 Unknown History [Vitamin D2] Fluticasone Propion/Salmeterol 1 each IH BIDRT 06/03/22 06/03/22 06/02/22 Histo ry [Fluticasone-Salmeterol 250-50] Hydrocodone/Acetaminophen 1 tab PO Q6HPRN PRN MDD 4 06/03/22 06/03/22 Unknown History [Hydrocodone-Acetamin 5-325 mg] Insulin Detemir [Levemir] 20 unit SQ BID 06/03/22 06/03/22 06/02/22 History Loperamide HCl [Loperamide] 4 mg PO Q12H PRN PRN 06/03/22 06/03/22 Unknown History Magnesium Oxide 400 mg [Mag-Ox 800 mg PO DAILY 06/03/22 06/03/22 06/02/22 History 400] Metformin HCl [Metformin ER 1,000 mg PO BID 06/03/22 06/03/22 06/02/22 History Osmotic] Metoclopramide HCl [Reglan] 10 mg PO Q6H PRN PRN 06/03/22 06/03/22 Unknown History Nitroglycerin 0.4 mg Tablet 0.4 mg SL Q5MIN PRN MR X 3 PRN 06/03/22 06/03/22 Unknown History [Nitrostat 0.4 MG Tablet] Pravastatin Sodium 80 mg PO DAILY 06/03/22 06/03/22 06/02/22 History Prednisone 20 mg [Deltasone 20 20 mg PO BID 06/03/22 06/03/22 06/02/22 History mg] Primidone 50 MG [Mysoline 50Mg] 50 mg PO TID 06/03/22 06/03/22 06/02/22 History Ranolazine 500 MG [Ranexa 500 500 mg PO BID 06/03/22 06/03/22 06/02/22 History MG] Rivaroxaban [Xarelto] 20 mg PO DAILY 06/03/22 06/03/22 Unknown History Rivaroxaban [Xarelto] 20 mg PO DAILY 06/03/22 06/03/22 06/02/22 History Saccharomyces Boulardii [Florastor] 250 mg PO BID 06/03/22 06/03/22 06/02/22 History Sitagliptin Phosphate [Januvia] 100 mg PO DAILY 06/03/22 06/03/22 06/02/22 History azaTHIOprine [Azathioprine] 50 mg PO BID 06/03/22 06/03/22 06/02/22 History carvediloL [Carvedilol] 25 mg PO BID 06/03/22 06/03/22 06/02/22 History lisinopriL [Zestril] 2.5 mg PO DAILY 06/03/22 06/03/22 06/02/22 History Current Medications Generic Name Dose Route Start Last Admin Trade Name Freq PRN Reason Stop Dose Admin Hydrocodone Bitart/Acetaminophen 1 tab 06/03/22 13:01 Hydrocodone/Apap 5/325 Mg Tablet PO 06/08/22 13:00 Q6HPRN PRN PAIN Albuterol Sulfate 2 puff 06/03/22 09:04 Albuterol Common Canister Inhaler IH 07/03/22 09:03 Q4H PRN PRN SHORTNESS OF BREATH/WHEEZING Alprazolam 0.5 mg 06/03/22 13:01 Alprazolam 0.5 Mg Tablet PO 07/03/22 13:00 TID PRN PRN ANXIETY Aripiprazole 2.5 mg 06/03/22 14:00 06/03/22 14:07 Aripiprazole 10 Mg Tablet PO 07/03/22 13:59 2.5 mg DAILY MITCH Administration Aspirin 81 mg 06/03/22 14:00 06/03/22 14:11 Aspirin 81 Mg Tablet.Ec PO 07/03/22 13:59 81 mg DAILY MITCH Administration Carvedilol 25 mg 06/03/22 14:00 06/03/22 14:08 Carvedilol 12.5 Mg Tablet PO 07/03/22 13:59 25 mg BID MITCH Administration Methylprednisolone Sodium 0 mg 06/03/22 12:00 06/03/22 17:31 Succinate 60 mg/ Sterile Water IV 07/03/22 11:59 60 mg 2 ml Q6HT MITCH Administration Duloxetine HCl 60 mg 06/03/22 14:00 06/03/22 14:09 Duloxetine Hcl 30 Mg Cap PO 07/03/22 13:59 60 mg DAILY MITCH Administration Ergocalciferol 50,000 unit 06/04/22 10:00 Ergocalciferol (Vitamin D2) 50,000 Unit Capsule PO 07/04/22 09:59 SuTh MITCH Sodium Chloride 1,000 mls @ 50 mls/hr 06/03/22 07:45 06/03/22 08:57 Sodium Chloride 0.9% 1000 Ml IV 07/03/22 07:44 50 mls/hr .Q20H MITCH Administration Insulin Glargine 20 unit 06/03/22 14:00 06/03/22 14:03 Insulin Glargine 1 Unit SQ 07/03/22 13:59 20 unit BID MITCH Administration Insulin Human Lispro 0 unit 06/03/22 07:33 06/03/22 17:10 Insulin Lispro 1 Unit SQ 07/03/22 07:32 12 unit UD PRN Administration HYPERGLYCEMIA Insulin Human Lispro 7 unit 06/03/22 16:30 06/03/22 17:08 Insulin Lispro 1 Unit SQ 07/03/22 16:29 7 unit AC MITCH Administration Isosorbide Mononitrate 60 mg 06/03/22 14:00 06/03/22 14:05 Isosorbide Mononitrate 60 Mg Tab PO 07/03/22 13:59 60 mg DAILY MITCH Administration Lactobacillus Acidophilus 1 tab 06/03/22 14:00 06/03/22 14:05 Lactobacillus Acidophilus 1 Tab Tablet PO 07/03/22 13:59 1 tab BID MITCH Administration Levothyroxine Sodium 25 mcg 06/03/22 14:00 06/03/22 14:11 Levothyroxine Sodium 25 Mcg Tablet PO 07/03/22 13:59 25 mcg DAILY MITCH Administration Lisinopril 2.5 mg 06/03/22 14:00 06/03/22 14:05 Lisinopril 5 Mg Tablet PO 07/03/22 13:59 2.5 mg DAILY MITCH Administration Loperamide HCl 4 mg 06/03/22 13:01 Loperamide Hcl 2 Mg Capsule PO 07/03/22 13:00 Q12H PRN PRN DIARRHEA Magnesium Oxide 800 mg 06/03/22 14:00 06/03/22 14:04 Magnesium Oxide 400 Mg Tablet PO 07/03/22 13:59 800 mg DAILY MITCH Administration Meclizine HCl 25 mg 06/03/22 13:01 Meclizine Hcl 25 Mg Tablet PO 07/03/22 13:00 Q8H PRN PRN DIZZINESS Metformin HCl 1,000 mg 06/03/22 17:00 06/03/22 17:30 Metformin Hcl 500 Mg Tablet PO 07/03/22 16:59 1,000 mg BIDWM MITCH Administration Methocarbamol 1,000 mg 06/03/22 13:01 Methocarbamol 500 Mg Tablet PO 07/03/22 13:00 QIDPRN PRN PAIN Metoclopramide HCl 10 mg 06/03/22 13:01 Metoclopramide Hcl 10 Mg Tablet PO 07/03/22 13:00 Q6H PRN PRN INDIGESTION Miscellaneous Information 1 each 06/03/22 14:00 Medication Intervention 1 Each Each 07/03/22 13:59 .RN TO CHECK MITCH Morphine Sulfate 4 mg 06/03/22 13:24 06/03/22 14:02 Morphine Sulfate 4 Mg/Ml Injection IV 06/08/22 13:23 4 mg Q4H PRN PRN Administration PAIN Nitroglycerin 0.4 mg 06/03/22 13:01 Nitroglycerin 0.4 Mg Tablet Bottle SL 07/03/22 13:00 Q5MIN PRN MR X 3 PRN CHEST PAIN Azathioprine 50mg 1 each 06/03/22 14:00 06/03/22 14:19 Tablet PO 07/03/22 13:59 1 each BID MITCH Administration Pantoprazole Sodium 40 mg 06/03/22 14:00 06/03/22 14:05 Protonix (Pantoprazole) 40 Mg Tablet PO 07/03/22 13:59 40 mg BID MITCH Administration Paroxetine HCl 30 mg 06/03/22 14:00 06/03/22 14:08 Paroxetine Hcl 20 Mg Tablet PO 07/03/22 13:59 30 mg DAILY MITCH Administration Prednisone 20 mg 06/03/22 14:00 06/03/22 14:05 Prednisone 20 Mg Tablet PO 07/03/22 13:59 20 mg BID MITCH Administration Primidone 50 mg 06/03/22 15:00 06/03/22 14:05 Primidone 50 Mg Tablet PO 07/03/22 14:59 50 mg TID MITCH Administration Ranolazine 500 mg 06/03/22 14:00 06/03/22 14:05 Ranolazine 500 Mg Tab.Sr.12h PO 07/03/22 13:59 500 mg BID MITCH Administration Rivaroxaban 20 mg 06/03/22 14:00 06/03/22 14:09 Rivaroxaban 10 Mg Tablet PO 07/03/22 13:59 20 mg DAILY MITCH Administration Simvastatin 10 mg 06/03/22 14:00 06/03/22 14:06 Simvastatin 10 Mg Tablet PO 07/03/22 13:59 10 mg DAILY MITCH Administration Sitagliptin Phosphate 100 mg 06/03/22 14:00 06/03/22 14:04 Sitagliptin Phosphate 50 Mg Tablet PO 07/03/22 13:59 100 mg DAILY MITCH Administration Discontinued Medications Generic Name Dose Route Start Last Admin Trade Name Freq PRN Reason Stop Dose Admin Albuterol/Ipratropium 3 ml 06/03/22 04:18 06/03/22 04:25 Ipratropium/Albuterol Sulfate 3 Ml Ampul.Neb IH 06/03/22 04:19 3 ml STAT ONE Administration Albuterol/Ipratropium Confirm 06/03/22 04:25 Ipratropium/Albuterol Sulfate 3 Ml Ampul.Neb Administered 06/03/22 04:26 Dose 3 ml IH .STK-MED ONE Methylprednisolone Sodium 0 mg 06/03/22 04:18 06/03/22 04:31 Succinate 125 mg/ Sterile IV 06/03/22 04:19 125 mg Water 2 ml STAT ONE Administration Methylprednisolone Sodium Succinate Confirm 06/03/22 04:30 Methylprednis Sod Succ 125 Mg/2 Ml Vial Administered 06/03/22 04:31 Dose 125 mg .ROUTE .STK-MED ONE Methylprednisolone Sodium Succinate Confirm 06/03/22 17:29 Methylprednis Sod Succ 125 Mg/2 Ml Vial Administered 06/03/22 17:30 Dose 125 mg .ROUTE .STK-MED ONE Morphine Sulfate 4 mg 06/03/22 06:29 06/03/22 06:51 Morphine Sulfate 4 Mg/Ml Injection IV 06/03/22 06:30 4 mg STAT ONE Administration Morphine Sulfate Confirm 06/03/22 06:50 Morphine Sulfate 4 Mg/Ml Injection Administered 06/03/22 06:51 Dose 4 mg .ROUTE .STK-MED ONE Fluticasone/Salmeterol 2 puff 06/03/22 19:00 Fluticasone/Salmeterol 115/21 - 120 Puff Common Canister IH 07/03/22 18:59 BIDRT MITCH Sterile Water Confirm 06/03/22 04:30 Water For Injection,Sterile 10 Ml Vial Administered 06/03/22 04:31 Dose 10 ml IJ .STK-MED ONE Intake & Output (Last 24 hours) 06/01/22 06/02/22 06/03/22 06/04/22 11:59 11:59 11:59 11:59 Intake Total 240 360 Balance 240 360 Weight 139.2 kg Microbiology Results (Last 24 hours) 06/03/22 03:57 Clean Catch Midstream Urine Culture - Pending 06/03/22 04:40 Blood Blood Culture Gram Stain - Pending 06/03/22 04:40 Blood Blood Culture - Pending 06/03/22 04:01 Blood Blood Culture Gram Stain - Pending 06/03/22 04:01 Blood Blood Culture - Pending Laboratory Results (Last 24 hours) 06/03/22 06/03/22 06/03/22 16:48 16:37 15:40 WBC 5.4 RBC 3.21 L Hgb 9.0 L Hct 29.7 L MCV 92.5 MCH 28.0 MCHC 30.3 L RDW 15.9 H Plt Count 271 MPV 11.8 H Gran % 92.6 H Immature Gran % (Auto) 0.4 Nucleat RBC Rel Count 0.0 Eos # (Auto) 0 Immature Gran # (Auto) 0.02 Absolute Lymphs (auto) 0.33 L Absolute Monos (auto) 0.04 Absolute Nucleated RBC 0.00 Lymphocytes % 6.1 L Monocytes % 0.7 Eosinophils % 0.0 Basophils % 0.2 Absolute Granulocytes 5.01 Basophils # 0.01 D-Dimer Sodium Potassium Chloride Carbon Dioxide Anion Gap BUN Creatinine Estimated GFR Glucose POC Glucometer 578 H* 515 H* Calcium Total Bilirubin AST ALT Alkaline Phosphatase Troponin I NT-Pro-B Natriuret Pep Serum Total Protein Albumin Urinalys Dipstick Clnc Urine Color Urine Appearance Urine pH Ur Specific [place] POC Urine Protein Conf Urine Ketones Urine Nitrite Urine Bilirubin Urine Urobilinogen Urine Leukocytes Urine WBC (Auto) Urine RBC (Auto) U Epithel Cells (Auto) Urine Bacteria (Auto) Urine RBC Urine Mucus (Auto) Ur Culture Indicated? Urine Glucose Influenza Type A Ag Influenza Type B Ag RSV (PCR) SARS-CoV-2 (PCR) ABO Group Rh Factor Antibody Screen 06/03/22 06/03/22 06/03/22 12:43 12:28 08:00 WBC RBC Hgb Hct MCV MCH MCHC RDW Plt Count MPV Gran % Immature Gran % (Auto) Nucleat RBC Rel Count Eos # (Auto) Immature Gran # (Auto) Absolute Lymphs (auto) Absolute Monos (auto) Absolute Nucleated RBC Lymphocytes % Monocytes % Eosinophils % Basophils % Absolute Granulocytes Basophils # D-Dimer Sodium Potassium Chloride Carbon Dioxide Anion Gap BUN Creatinine Estimated GFR Glucose POC Glucometer 500 H Calcium Total Bilirubin AST ALT Alkaline Phosphatase Troponin I < 0.012 0.014 NT-Pro-B Natriuret Pep Serum Total Protein Albumin Urinalys Dipstick Clnc Urine Color Urine Appearance Urine pH Ur Specific [place] POC Urine Protein Conf Urine Ketones Urine Nitrite Urine Bilirubin Urine Urobilinogen Urine Leukocytes Urine WBC (Auto) Urine RBC (Auto) U Epithel Cells (Auto) Urine Bacteria (Auto) Urine RBC Urine Mucus (Auto) Ur Culture Indicated? Urine Glucose Influenza Type A Ag Influenza Type B Ag RSV (PCR) SARS-CoV-2 (PCR) ABO Group Rh Factor Antibody Screen 06/03/22 06/03/22 06/03/22 04:40 04:30 04:30 WBC RBC Hgb Hct MCV MCH MCHC RDW Plt Count MPV Gran % Immature Gran % (Auto) Nucleat RBC Rel Count Eos # (Auto) Immature Gran # (Auto) Absolute Lymphs (auto) Absolute Monos (auto) Absolute Nucleated RBC Lymphocytes % Monocytes % Eosinophils % Basophils % Absolute Granulocytes Basophils # D-Dimer 1.19 H* Sodium Potassium Chloride Carbon Dioxide Anion Gap BUN Creatinine Estimated GFR Glucose POC Glucometer Calcium Total Bilirubin AST ALT Alkaline Phosphatase Troponin I NT-Pro-B Natriuret Pep Serum Total Protein Albumin Urinalys Dipstick Clnc Urine Color Urine Appearance Urine pH Ur Specific [place] POC Urine Protein Conf Urine Ketones Urine Nitrite Urine Bilirubin Urine Urobilinogen Urine Leukocytes Urine WBC (Auto) Urine RBC (Auto) U Epithel Cells (Auto) Urine Bacteria (Auto) Urine RBC Urine Mucus (Auto) Ur Culture Indicated? Urine Glucose Influenza Type A Ag NEGATIVE Influenza Type B Ag NEGATIVE RSV (PCR) NEGATIVE SARS-CoV-2 (PCR) NEGATIVE ABO Group A Rh Factor POSITIVE Antibody Screen NEGATIVE 06/03/22 06/03/22 06/03/22 04:01 04:01 04:01 WBC 4.6 RBC 3.14 L Hgb 8.6 L Hct 29.3 L MCV 93.3 MCH 27.4 MCHC 29.4 L RDW 15.9 H Plt Count 261 MPV 12.0 H Gran % 68.8 H Immature Gran % (Auto) 0.2 Nucleat RBC Rel Count 0.0 Eos # (Auto) 0.21 Immature Gran # (Auto) 0.01 Absolute Lymphs (auto) 0.82 L Absolute Monos (auto) 0.38 Absolute Nucleated RBC 0.00 Lymphocytes % 17.7 L Monocytes % 8.2 Eosinophils % 4.5 Basophils % 0.6 Absolute Granulocytes 3.17 Basophils # 0.03 D-Dimer Sodium 135 L Potassium 4.4 Chloride 102 Carbon Dioxide 22 Anion Gap 15.0 BUN 9 Creatinine 0.57 Estimated GFR > 60.0 Glucose 279 H POC Glucometer Calcium 9.1 Total Bilirubin 0.40 AST 42 H ALT 24 Alkaline Phosphatase 268 H Troponin I < 0.012 NT-Pro-B Natriuret Pep 888 Serum Total Protein 6.2 L Albumin 3.3 L Urinalys Dipstick Clnc Urine Color Urine Appearance Urine pH Ur Specific [place] POC Urine Protein Conf Urine Ketones Urine Nitrite Urine Bilirubin Urine Urobilinogen Urine Leukocytes Urine WBC (Auto) Urine RBC (Auto) U Epithel Cells (Auto) Urine Bacteria (Auto) Urine RBC Urine Mucus (Auto) Ur Culture Indicated? Urine Glucose Influenza Type A Ag Influenza Type B Ag RSV (PCR) SARS-CoV-2 (PCR) ABO Group Rh Factor Antibody Screen 06/03/22 03:57 WBC RBC Hgb Hct MCV MCH MCHC RDW Plt Count MPV Gran % Immature Gran % (Auto) Nucleat RBC Rel Count Eos # (Auto) Immature Gran # (Auto) Absolute Lymphs (auto) Absolute Monos (auto) Absolute Nucleated RBC Lymphocytes % Monocytes % Eosinophils % Basophils % Absolute Granulocytes Basophils # D-Dimer Sodium Potassium Chloride Carbon Dioxide Anion Gap BUN Creatinine Estimated GFR Glucose POC Glucometer Calcium Total Bilirubin AST ALT Alkaline Phosphatase Troponin I NT-Pro-B Natriuret Pep Serum Total Protein Albumin Urinalys Dipstick Clnc MAIN LAB Urine Color YELLOW Urine Appearance CLEAR Urine pH 6.0 Ur Specific [place] 1.025 POC Urine Protein Conf NEGATIVE Urine Ketones NEGATIVE Urine Nitrite NEGATIVE Urine Bilirubin NEGATIVE Urine Urobilinogen 0.2 Urine Leukocytes SMALL Urine WBC (Auto) 3-5 Urine RBC (Auto) 3-5 U Epithel Cells (Auto) FEW Urine Bacteria (Auto) Not Reportable Urine RBC NEGATIVE Urine Mucus (Auto) SLIGHT Ur Culture Indicated? YES Urine Glucose 500 Influenza Type A Ag Influenza Type B Ag RSV (PCR) SARS-CoV-2 (PCR) ABO Group Rh Factor Antibody Screen Orders (Last 24 hours) Category Date Time Status Up With Assistance ROUTINE Activity 06/03/22 07:33 Active Shallot Packer STAT Care 06/03/22 04:13 Active Code Status Order ROUTINE Care 06/03/22 07:34 Active EKG-ER Only STAT Care 06/03/22 04:12 Completed IV Care Q6H Care 06/03/22 07:34 Active IV Insertion STAT Care 06/03/22 04:12 Completed Intake and Output Q12H Care 06/03/22 07:33 Active POCT Glucose Check ACHS Care 06/03/22 07:[address] in Observation ROUTINE Care 06/03/22 07:34 Active Pulse Oximetry (ED) STAT Care 06/03/22 04:12 Completed Vital Signs Q4H Care 06/03/22 07:33 Active Weight,Daily 0600 Care 06/03/22 07:34 Active Cardio-Pulmonary Rehab .as ordered Cons 06/03/22 08:59 Active 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 ROUTINE Cons 06/03/22 08:59 Active Consistent Carbohydrate Diet 1800 Calorie Diet 06/03/22 Breakfast Active CHEST 1 VIEW (PORTABLE) Stat Exams 06/03/22 03:57 Taken CHEST WITH CONTRAST [CT] Stat Exams 06/03/22 05:56 Taken BLOOD COMPONENT REQUEST Stat Lab 06/03/22 04:51 Completed BLOOD CULTURE Stat Lab 06/03/22 04:40 Received CBC AM.LAB Lab 06/04/22 04:00 Ordered CBC W DIFF Routine Lab 06/03/22 15:40 Completed CBC W DIFF Stat Lab 06/03/22 04:01 Completed CMP AM.LAB Lab 06/04/22 04:00 Ordered CMP Routine Lab 06/03/22 15:40 Received CMP Stat Lab 06/03/22 04:01 Completed COVID/FLU/RSV Panel Stat Lab 06/03/22 04:40 Completed CULTURE,URINE Stat Lab 06/03/22 03:57 Received D-DIMER QUANTITATIVE Stat Lab 06/03/22 04:30 Completed Glucose Stat Lab 06/03/22 17:10 Received NT PRO BNP Routine Lab 06/03/22 04:01 Completed POCT GLUCOSE Stat Lab 06/03/22 12:28 Completed POCT GLUCOSE Stat Lab 06/03/22 16:36 Received POCT GLUCOSE Stat Lab 06/03/22 16:37 Completed POCT GLUCOSE Stat Lab 06/03/22 16:48 Completed TROPONIN Q4H Lab 06/03/22 04:01 Completed TROPONIN Q4H Lab 06/03/22 08:00 Completed TROPONIN Q4H Lab 06/03/22 12:43 Completed TYPE AND SCREEN Stat Lab 06/03/22 04:30 Completed UA W/RFX CULTURE Stat Lab 06/03/22 03:57 Completed ALPRAZolam 0.5 MG [xanAX 0.5 MG] Med 06/03/22 13:01 Active 0.5 mg PO TID PRN PRN Albuterol Common Canister [Ventolin Common Canister* Med 06/03/22 09:04 Active ] 2 puff IH Q4H PRN PRN Albuterol/Ipratropium 3ml Neb* [DUONEB 0.5-3 MG/3 ml Med 06/03/22 04:25 Discontinued Neb] 3 ml IH .STK-MED ONE Albuterol/Ipratropium 3ml Neb* [DUONEB 0.5-3 MG/3 ml Med 06/03/22 04:18 Discontinued Neb] 3 ml IH STAT ONE Aripiprazole 10 mg [Abilify 10 MG] Med 06/03/22 14:00 Active 2.5 mg PO DAILY Aspirin EC 81 mg [Ecotrin 81 mg] Med 06/03/22 14:00 Active 81 mg PO DAILY Carvedilol 12.5 mg [Coreg 12.5 mg] Med 06/03/22 14:00 Active 25 mg PO BID Duloxetine HCl 30 mg [Cymbalta 30 MG Capsule] Med 06/03/22 14:00 Active 60 mg PO DAILY Ergocalciferol (Vitamin D2) [Vitamin D2] Med 06/04/22 10:00 Active 50,000 unit PO SuTh Fluticasone/Salmeterol 115/21 [Advair Hfa 115/21 Common Med 06/03/22 19:00 Discontinued canister*] 2 puff IH BIDRT Hydrocodone/APAP 5/325 [[place] 5/325 mg] Med 06/03/22 13:01 Active 1 tab PO Q6HPRN PRN Insulin Glargine [Lantus Insulin] Med 06/03/22 14:00 Active 20 unit SQ BID Insulin Lispro [Humalog] Med 06/03/22 16:30 Active 7 unit SQ AC Insulin Lispro [Humalog] Med 06/03/22 07:33 Active See Dose Instructions SQ UD PRN Isosorbide Mononitrate 60 mg [Imdur 60MG] Med 06/03/22 14:00 Active 60 mg PO DAILY Lactobacillus Acidophilus [Acidophilus TABLET] Med 06/03/22 14:00 Active 1 tab PO BID Levothyroxine Sodium 25 Mcg [Synthroid 25 Mcg] Med 06/03/22 14:00 Active 25 mcg PO DAILY Lisinopril 5 mg [Zestril 5 MG] Med 06/03/22 14:00 Active 2.5 mg PO DAILY Loperamide HCl 2 mg [Imodium 2 mg] Med 06/03/22 13:01 Active 4 mg PO Q12H PRN PRN Magnesium Oxide 400 mg [Mag-Ox 400] Med 06/03/22 14:00 Active 800 mg PO DAILY Meclizine HCl 25 mg [Antivert 25 mg] Med 06/03/22 13:01 Active 25 mg PO Q8H PRN PRN Medication Intervention Med 06/03/22 14:00 Active 1 each MC .RN TO CHECK Metformin HCl 500 mg [Glucophage 500 MG] Med 06/03/22 17:00 Active 1,000 mg PO BIDWM Methocarbamol [Robaxin] Med 06/03/22 13:01 Active 1,000 mg PO QIDPRN PRN Methylprednis Sod Succ 125 mg* [solu-MEDROL] Med 06/03/22 04:30 Discontinued 125 mg .ROUTE .STK-MED ONE Methylprednis Sod Succ 125 mg* [solu-MEDROL] Med 06/03/22 17:29 Discontinued 125 mg .ROUTE .STK-MED ONE Methylprednis Sod Succ 125 mg* [solu-MEDROL] 125 mg Med 06/03/22 04:18 Discontinued Water For Injection,Sterile [Sterile H2O 10 ml] 2 ml IV STAT Methylprednis Sod Succ 125 mg* [solu-MEDROL] 60 mg Med 06/03/22 12:00 Active Water For Injection,Sterile [Sterile H2O 10 ml] 2 ml IV Q6HT Metoclopramide HCl 10 mg [Reglan 10 MG] Med 06/03/22 13:01 Active 10 mg PO Q6H PRN PRN Morphine Sulfate 4 mg Inj Med 06/03/22 06:50 Discontinued 4 mg .ROUTE .STK-MED ONE Morphine Sulfate 4 mg Inj Med 06/03/22 13:24 Active 4 mg IV Q4H PRN PRN Morphine Sulfate 4 mg Inj Med 06/03/22 06:29 Discontinued 4 mg IV STAT ONE NaCl 0.9% 1000 ml [Sodium Chloride 0.9% 1000 ML] 1,000 Med 06/03/22 07:45 Active ml IV 50 mls/hr Nitroglycerin 0.4 mg Tablet [Nitrostat 0.4 MG Tablet Med 06/03/22 13:01 Active ] 0.4 mg SL Q5MIN PRN MR X 3 PRN Non-Formulary Drug [Non-Formulary Item] Med 06/03/22 14:00 Active 1 each PO BID PANTOPRAZOLE 40 mg Tablet [Protonix 40MG Tablet] Med 06/03/22 14:00 Active 40 mg PO BID Paroxetine HCl 20 mg [Paxil 20 MG] Med 06/03/22 14:00 Active 30 mg PO DAILY Prednisone 20 mg [Deltasone 20 mg] Med 06/03/22 14:00 Active 20 mg PO BID Primidone 50 MG [Mysoline 50Mg] Med 06/03/22 15:00 Active 50 mg PO TID Ranolazine 500 MG [Ranexa 500 MG] Med 06/03/22 14:00 Active 500 mg PO BID Rivaroxaban 10 mg Tablet [Xarelto 10 mg Tablet] Med 06/03/22 14:00 Active 20 mg PO DAILY Simvastatin 10 mg [Zocor 10MG] Med 06/03/22 14:00 Active 10 mg PO DAILY Sitagliptin Phosphate 50 MG [Januvia 50 MG] Med 06/03/22 14:00 Active 100 mg PO DAILY Water For Injection,Sterile [Sterile H2O 10 ml] Med 06/03/22 04:30 Discontinued 10 ml IJ .STK-MED ONE Pulse Oximetry CONTINUOUS RT 06/03/22 07:36 Active Respiratory Therapy Assessment DAILY RT 06/03/22 04:35 Active Respiratory Therapy Consult ROUTINE RT 06/03/22 07:37 Completed Transfer Order Routine Transfer 06/03/22 Completed Patient Care Notes (Last 24 hours) 06/03/22 12:56 Case Management Note by Lyric Hauser PATIENT HAS [facility]. THEY WERE NOTIFIED SHE WAS HERE. THEY WILL NEED NOTIFIED AT TIME OF DC AT [phone]. THEY WILL NEED FAXED THE DC INSTRUCTIONS, DC MED LIST AND DC SUMMARY ( IF AVAILABLE) TO [phone] Initialized on 06/03/22 12:56 - END OF NOTE Code(s): J44.1 - CHRONIC OBSTRUCTIVE PULMONARY DISEASE W (ACUTE) EXACERBATION (2) SOB (shortness of breath) Current Visit: Yes Status: Acute Code(s): R06.02 - SHORTNESS OF BREATH
[2022-06-03] MEDS ORDERED: FLUTICASONE-SALMETEROL 250-50 IH SCH (19:00)
[2022-06-03] MEDS ORDERED: Advair Hfa 115/21 Common canister IH SCH (19:00)
[2022-06-03 19:14] LABS: ALBUMIN 3.6 g/dL (3.5-5.0); ALKALINE PHOSPHATASE 250 U/L (38-126); ANION GAP 19.7 MEQ/L (5-15); BLOOD UREA NITROGEN 14 mg/dL (7-17); CHLORIDE 97 mmol/L (98-107); Carbon Dioxide 19 mmol/L (22-30); Creatinine 1 0.68 mg/dL (0.52-1.04); EST GLOMERULAR FILTRATION RATE > 60.0 ML/MIN; Potassium 4.6 mmol/L (3.5-5.1); SGOT/AST 36 U/L (14-36); SODIUM 131 mmol/L (137-145); Total Protein 6.7 g/dL (6.3-8.2)
[2022-06-03 19:31] LABS: SGPT/ALT 36 U/L (0-35)
[2022-06-03 20:06] LABS: Glucose 583 mg/dL (74-106)
[2022-06-03] MEDS ORDERED: SACCHAROMYCES BOULARDII 250 MG PO SCH (22:00)
[2022-06-03] MEDS ORDERED: NON-FORMULARY ITEM (Carvedilol [Carvedilol] 25 MG Tablet) PO SCH (22:00)
[2022-06-03] MEDS ORDERED: NON-FORMULARY ITEM (Metformin Hcl [Metformin Er Osmotic] 1,000 MG Tab.Er.24) PO SCH (22:00)
[2022-06-03] MEDS ORDERED: NON-FORMULARY ITEM (Insulin Glargine,Hum.Rec.Anlog [Basaglar Kwikpen U-100] 100 UNIT/ML In SQ SCH (22:00)
[2022-06-03] MEDS ORDERED: MESALAMINE 500 MG PO SCH (22:00)
[2022-06-03] MEDS ORDERED: NON-FORMULARY ITEM (Insulin Detemir [Levemir] 100 UNIT/ML Vial) SQ SCH (22:00)
[2022-06-03] MEDS ORDERED: NON-FORMULARY ITEM (Omeprazole 20 Mg [Prilosec 20 Mg] 20 MG Capsule.Dr) PO SCH (22:00)
[2022-06-03] MEDS ORDERED: AZATHIOPRINE 50 MG PO SCH (22:00)
[2022-06-03 22:49] LABS: Lymphocytes 8 % (24-44); Total Cells Counted 100
[2022-06-03 22:50] LABS: ANISOCYTOSIS 1+; Platelet Estimate NORMAL (NORMAL); Polychromasia 1+
[2022-06-04] MEDS: Sodium Chloride 0.9% 1000 ML 1,000 ML IV SCH (02:27)
[2022-06-04] MEDS: MORPHINE SULFATE 4 MG INJ IV PRN ×3 (04:13→20:54)
[2022-06-04] MEDS ORDERED: solu-MEDROL ONE (04:22)
[2022-06-04] MEDS: solu-MEDROL 60 MG, Sterile H2O 10 ml 2 ML IV SCH ×4 (05:27→11:36)
[2022-06-04 05:28] LABS: Hematocrit 25.3 % (35-47); Hemoglobin 7.8 g/dL (12.0-16.0); Mean Corpuscular Hemoglobin 27.8 pg (26-32); Mean Corpuscular Hgb Concent. 30.8 g/dL (32-36); Platelet Count 258 x10^3/uL (150-450); Red Blood Count 2.81 x10^6/uL (4.1-5.4); Red Cell Distribution Width 15.7 % (11.5-14.0); White Blood Count 5.9 x10^3/uL (4.0-10.5)
[2022-06-04 06:03] LABS: ALBUMIN 3.3 g/dL (3.5-5.0); ALKALINE PHOSPHATASE 205 U/L (38-126); ANION GAP 14.2 MEQ/L (5-15); BLOOD UREA NITROGEN 18 mg/dL (7-17); CHLORIDE 95 mmol/L (98-107); Calcium 8.4 mg/dL (8.4-10.2); Carbon Dioxide 22 mmol/L (22-30); Creatinine 1 0.67 mg/dL (0.52-1.04); EST GLOMERULAR FILTRATION RATE > 60.0 ML/MIN; Glucose 468 mg/dL (74-106); Potassium 4.6 mmol/L (3.5-5.1); SGOT/AST 18 U/L (14-36); SGPT/ALT 20 U/L (0-35); SODIUM 127 mmol/L (137-145); Total Protein 6.1 g/dL (6.3-8.2)
[2022-06-04] MEDS: HOLD METFORMIN PRODUCTS FOR 48 HOURS MC SCH ×2 (07:18→08:37)
[2022-06-04] MEDS: HUMALOG SQ PRN ×4 (07:43→20:54)
[2022-06-04] MEDS: HUMALOG SQ SCH ×3 (07:43→16:59)
[2022-06-04] MEDS: MAG-OX 400 PO SCH (09:06)
[2022-06-04] MEDS: Acidophilus TABLET PO SCH ×2 (09:07→21:01)
[2022-06-04] MEDS: Zocor 10MG PO SCH (09:07)
[2022-06-04] MEDS: Januvia 50 MG PO SCH (09:07)
[2022-06-04] MEDS: Paxil 20 MG PO SCH (09:07)
[2022-06-04] MEDS: SYNTHROID 25 MCG PO SCH (09:07)
[2022-06-04] MEDS: Cymbalta 30 MG Capsule PO SCH (09:07)
[2022-06-04] MEDS: Abilify 10 MG PO SCH (09:08)
[2022-06-04] MEDS: MYSOLINE 50MG PO SCH ×3 (09:08→21:00)
[2022-06-04] MEDS: DELTASONE 20 MG PO SCH ×2 (09:08→21:01)
[2022-06-04] MEDS: Ranexa 500 MG PO SCH ×2 (09:08→21:01)
[2022-06-04] MEDS: COREG 12.5 MG PO SCH ×2 (09:08→21:00)
[2022-06-04] MEDS: Lantus Insulin SQ SCH ×2 (09:09→21:00)
[2022-06-04] MEDS: Imdur 60MG PO SCH (09:09)
[2022-06-04] MEDS: Protonix 40MG Tablet PO SCH ×2 (09:10→21:01)
[2022-06-04] MEDS: Zestril 5 MG PO SCH (09:10)
[2022-06-04] MEDS: NON-FORMULARY ITEM PO SCH ×2 (09:10→21:02)
[2022-06-04] MEDS ORDERED: NON-FORMULARY ITEM (Rivaroxaban [Xarelto] 20 MG Tablet) PO SCH ×2 (10:00)
[2022-06-04] MEDS ORDERED: NON-FORMULARY ITEM (Lisinopril [Zestril] 2.5 MG Tablet) PO SCH (10:00)
[2022-06-04] MEDS ORDERED: NON-FORMULARY ITEM (Aripiprazole [Abilify] 2 MG Tablet) PO SCH (10:00)
[2022-06-04] MEDS ORDERED: NON-FORMULARY ITEM (Pravastatin Sodium [Pravastatin Sodium] 80 MG Tablet) PO SCH (10:00)
[2022-06-04] MEDS ORDERED: NON-FORMULARY ITEM (Paroxetine Hcl [Paxil] 10 MG Tablet) PO SCH (10:00)
[2022-06-04] MEDS ORDERED: NON-FORMULARY ITEM (Duloxetine Hcl [Duloxetine Hcl] 60 MG Capsule.Dr) PO SCH ×2 (10:00)
[2022-06-04] MEDS ORDERED: VITAMIN D2 PO SCH (10:00)
[2022-06-04] MEDS ORDERED: NON-FORMULARY ITEM (Atorvastatin Calcium [Atorvastatin Calcium] 10 MG Tablet) PO SCH (10:00)
[2022-06-04 10:12] LABS: INFLUENZA A NEGATIVE (NEGATIVE); INFLUENZA B NEGATIVE (NEGATIVE); RESPIRATORY SYNCTIAL VIRUS NEGATIVE (Negative); SARS-CoV-2 Xpert Express NEGATIVE (NEGATIVE)
--- NOTE | 2022-06-04 12:44 | PCM.NOTE ---
Date and Time: 06/04/22 1243 Subjective Assessment: doing better - Review of Systems Constitutional: No Fever, No Chills Eyes: No Symptoms Ears, Nose, & Throat: No Symptoms Respiratory: No Cough, No Short Of Breath Cardiac: No Chest Pain, No Edema, No Syncope Abdominal/Gastrointestinal: No Abdominal Pain, No Nausea, No Vomiting, No Diarrhea Genitourinary Symptoms: No Dysuria Musculoskeletal: No Back Pain, No Neck Pain Skin: No Rash Neurological: No Dizziness, No Focal Weakness, No Sensory Changes Psychological: No Symptoms Endocrine: No Symptoms Hematologic/Lymphatic: No Symptoms Immunological/Allergic: No Symptoms Objective Exam General Appearance: no apparent distress, alert Neurologic Exam: alert, oriented x 3, cooperative, normal mood/affect, nml cerebellar function, sensation nml, No motor deficits Skin Exam: normal color, warm, dry Eye Exam: PERRL, EOMI, eyes nml inspection Ears, Nose, Throat Exam: normal ENT inspection, pharynx normal, moist mucous membranes Neck Exam: normal inspection, non-tender, supple, full range of motion Respiratory Exam: normal breath sounds, lungs clear, No respiratory distress Cardiovascular Exam: regular rate/rhythm, normal heart sounds Gastrointestinal/Abdomen Exam: soft, No tenderness, No mass Extremity Exam: normal inspection, normal range of motion Back Exam: normal inspection, normal range of motion, No CVA tenderness, No vertebral tenderness Pelvic Exam: deferred Rectal Exam: deferred OBJECTIVE DATA Vital Signs: Vital Signs - 24 hr Temp Pulse Resp BP Pulse Ox 06/04/22 11:32 97.3 F 80 19 103/61 94 L 06/04/22 08:00 97.1 F 85 17 159/81 95 06/04/22 07:20 80 20 94 L 06/04/22 03:20 97.5 F 83 20 137/67 95 06/04/22 00:00 97.5 F 86 19 138/67 96 06/03/22 20:00 85 18 96 06/03/22 19:57 97.7 F 89 20 135/67 90 L 06/03/22 16:00 97.8 F 93 H 18 138/69 94 L Pain Assessment - Last Documented Pain Intensity 0 Pain Scale Used FLACC Intake and Output: Intake & Output 06/02/22 06/03/22 06/04/22 06/05/22 11:59 11:59 11:59 11:59 Intake Total 240 4451 Balance 240 4445 Weight 139.2 kg 141.5 kg Lab Results: Lab Results-Last 24 Hours 06/03/22 06/03/22 06/03/22 Range/Units 04:30 04:30 12:43 WBC (4.0-10.5) x10^3/uL RBC (4.1-5.4) x10^6/uL Hgb (12.0-16.0) g/dL Hct (35-47) % MCV (78-100) fL MCH (26-32) pg MCHC (32-36) g/dL RDW (11.5-14.0) % Plt Count (150-450) x10^3/uL MPV (7.5-11.0) fL Gran % (36.0-66.0) % Immature Gran % (Auto) (0.00-0.4) % Nucleat RBC Rel Count (0.00-0.1) % Eos # (Auto) (0-0.5) x10^3/uL Immature Gran # (Auto) (0.00-0.03) x10^3u/L Absolute Lymphs (auto) (1.0-4.6) x10^3/uL Absolute Monos (auto) (0.0-1.3) x10^3/uL Absolute Nucleated RBC (0.00-0.01) x10^3u/L Lymphocytes % (24.0-44.0) % Monocytes % (0.0-12.0) % Eosinophils % (0.00-5.0) % Basophils % (0.0-0.4) % Absolute Granulocytes (1.4-6.9) x10^3/uL Segmented Neutrophils (36.0-66.0) % Lymphocytes (Manual) (24-44) % Basophils # (0-0.4) x10^3/uL Platelet Estimate (NORMAL) Polychromasia Anisocytosis Sodium (137-145) mmol/L Potassium (3.5-5.1) mmol/L Chloride (98-107) mmol/L Carbon Dioxide (22-30) mmol/L Anion Gap (5-15) MEQ/L BUN (7-17) mg/dL Creatinine (0.52-1.04) mg/dL Estimated GFR ML/MIN Glucose (74-106) mg/dL POC Glucometer (50 to 500) mg/dL Calcium (8.4-10.2) mg/dL Total Bilirubin (0.2-1.3) mg/dL AST (14-36) U/L ALT (0-35) U/L Alkaline Phosphatase (38-126) U/L Troponin I < 0.012 (0.000-0.034) ng/mL Serum Total Protein (6.3-8.2) g/dL Albumin (3.5-5.0) g/dL Influenza Type A Ag (NEGATIVE) Influenza Type B Ag (NEGATIVE) RSV (PCR) (Negative) SARS-CoV-2 (PCR) (NEGATIVE) Crossmatch COMPATIBLE COMPATIBLE (COMPATIBLE) 06/03/22 06/03/22 06/03/22 Range/Units 15:40 15:40 16:37 WBC 5.4 (4.0-10.5) x10^3/uL RBC 3.21 L (4.1-5.4) x10^6/uL Hgb 9.0 L (12.0-16.0) g/dL Hct 29.7 L (35-47) % MCV 92.5 (78-100) fL MCH 28.0 (26-32) pg MCHC 30.3 L (32-36) g/dL RDW 15.9 H (11.5-14.0) % Plt Count 271 (150-450) x10^3/uL MPV 11.8 H (7.5-11.0) fL Gran % 92.6 H (36.0-66.0) % Immature Gran % (Auto) 0.4 (0.00-0.4) % Nucleat RBC Rel Count 0.0 (0.00-0.1) % Eos # (Auto) 0 (0-0.5) x10^3/uL Immature Gran # (Auto) 0.02 (0.00-0.03) x10^3u/L Absolute Lymphs (auto) 0.33 L (1.0-4.6) x10^3/uL Absolute Monos (auto) 0.04 (0.0-1.3) x10^3/uL Absolute Nucleated RBC 0.00 (0.00-0.01) x10^3u/L Lymphocytes % 6.1 L (24.0-44.0) % Monocytes % 0.7 (0.0-12.0) % Eosinophils % 0.0 (0.00-5.0) % Basophils % 0.2 (0.0-0.4) % Absolute Granulocytes 5.01 (1.4-6.9) x10^3/uL Segmented Neutrophils 92 H (36.0-66.0) % Lymphocytes (Manual) 8 L (24-44) % Basophils # 0.01 (0-0.4) x10^3/uL Platelet Estimate NORMAL (NORMAL) Polychromasia 1+ Anisocytosis 1+ Sodium 131 L (137-145) mmol/L Potassium 4.6 (3.5-5.1) mmol/L Chloride 97 L (98-107) mmol/L Carbon Dioxide 19 L (22-30) mmol/L Anion Gap 19.7 H (5-15) MEQ/L BUN 14 (7-17) mg/dL Creatinine 0.68 (0.52-1.04) mg/dL Estimated GFR > 60.0 ML/MIN Glucose 583 H* (74-106) mg/dL POC Glucometer 515 H* (50 to 500) mg/dL Calcium 9.0 (8.4-10.2) mg/dL Total Bilirubin 0.40 (0.2-1.3) mg/dL AST 36 (14-36) U/L ALT 36 H (0-35) U/L Alkaline Phosphatase 250 H (38-126) U/L Troponin I (0.000-0.034) ng/mL Serum Total Protein 6.7 (6.3-8.2) g/dL Albumin 3.6 (3.5-5.0) g/dL Influenza Type A Ag (NEGATIVE) Influenza Type B Ag (NEGATIVE) RSV (PCR) (Negative) SARS-CoV-2 (PCR) (NEGATIVE) Crossmatch (COMPATIBLE) 06/03/22 06/03/22 06/03/22 Range/Units 16:48 17:10 20:30 WBC (4.0-10.5) x10^3/uL RBC (4.1-5.4) x10^6/uL Hgb (12.0-16.0) g/dL Hct (35-47) % MCV (78-100) fL MCH (26-32) pg MCHC (32-36) g/dL RDW (11.5-14.0) % Plt Count (150-450) x10^3/uL MPV (7.5-11.0) fL Gran % (36.0-66.0) % Immature Gran % (Auto) (0.00-0.4) % Nucleat RBC Rel Count (0.00-0.1) % Eos # (Auto) (0-0.5) x10^3/uL Immature Gran # (Auto) (0.00-0.03) x10^3u/L Absolute Lymphs (auto) (1.0-4.6) x10^3/uL Absolute Monos (auto) (0.0-1.3) x10^3/uL Absolute Nucleated RBC (0.00-0.01) x10^3u/L Lymphocytes % (24.0-44.0) % Monocytes % (0.0-12.0) % Eosinophils % (0.00-5.0) % Basophils % (0.0-0.4) % Absolute Granulocytes (1.4-6.9) x10^3/uL Segmented Neutrophils (36.0-66.0) % Lymphocytes (Manual) (24-44) % Basophils # (0-0.4) x10^3/uL Platelet Estimate (NORMAL) Polychromasia Anisocytosis Sodium (137-145) mmol/L Potassium (3.5-5.1) mmol/L Chloride (98-107) mmol/L Carbon Dioxide (22-30) mmol/L Anion Gap (5-15) MEQ/L BUN (7-17) mg/dL Creatinine (0.52-1.04) mg/dL Estimated GFR ML/MIN Glucose 555 H* (74-106) mg/dL POC Glucometer 578 H* 466 H (50 to 500) mg/dL Calcium (8.4-10.2) mg/dL Total Bilirubin (0.2-1.3) mg/dL AST (14-36) U/L ALT (0-35) U/L Alkaline Phosphatase (38-126) U/L Troponin I (0.000-0.034) ng/mL Serum Total Protein (6.3-8.2) g/dL Albumin (3.5-5.0) g/dL Influenza Type A Ag (NEGATIVE) Influenza Type B Ag (NEGATIVE) RSV (PCR) (Negative) SARS-CoV-2 (PCR) (NEGATIVE) Crossmatch (COMPATIBLE) 06/04/22 06/04/22 06/04/22 Range/Units 05:00 05:00 06:57 WBC 5.9 (4.0-10.5) x10^3/uL RBC 2.81 L (4.1-5.4) x10^6/uL Hgb 7.8 L (12.0-16.0) g/dL Hct 25.3 L (35-47) % MCV 90.0 (78-100) fL MCH 27.8 (26-32) pg MCHC 30.8 L (32-36) g/dL RDW 15.7 H (11.5-14.0) % Plt Count 258 (150-450) x10^3/uL MPV 12.0 H (7.5-11.0) fL Gran % (36.0-66.0) % Immature Gran % (Auto) (0.00-0.4) % Nucleat RBC Rel Count (0.00-0.1) % Eos # (Auto) (0-0.5) x10^3/uL Immature Gran # (Auto) (0.00-0.03) x10^3u/L Absolute Lymphs (auto) (1.0-4.6) x10^3/uL Absolute Monos (auto) (0.0-1.3) x10^3/uL Absolute Nucleated RBC (0.00-0.01) x10^3u/L Lymphocytes % (24.0-44.0) % Monocytes % (0.0-12.0) % Eosinophils % (0.00-5.0) % Basophils % (0.0-0.4) % Absolute Granulocytes (1.4-6.9) x10^3/uL Segmented Neutrophils (36.0-66.0) % Lymphocytes (Manual) (24-44) % Basophils # (0-0.4) x10^3/uL Platelet Estimate (NORMAL) Polychromasia Anisocytosis Sodium 127 L (137-145) mmol/L Potassium 4.6 (3.5-5.1) mmol/L Chloride 95 L (98-107) mmol/L Carbon Dioxide 22 (22-30) mmol/L Anion Gap 14.2 (5-15) MEQ/L BUN 18 H (7-17) mg/dL Creatinine 0.67 (0.52-1.04) mg/dL Estimated GFR > 60.0 ML/MIN Glucose 468 H (74-106) mg/dL POC Glucometer 425 H (50 to 500) mg/dL Calcium 8.4 (8.4-10.2) mg/dL Total Bilirubin 0.50 (0.2-1.3) mg/dL AST 18 (14-36) U/L ALT 20 (0-35) U/L Alkaline Phosphatase 205 H (38-126) U/L Troponin I (0.000-0.034) ng/mL Serum Total Protein 6.1 L (6.3-8.2) g/dL Albumin 3.3 L (3.5-5.0) g/dL Influenza Type A Ag (NEGATIVE) Influenza Type B Ag (NEGATIVE) RSV (PCR) (Negative) SARS-CoV-2 (PCR) (NEGATIVE) Crossmatch (COMPATIBLE) 06/04/22 06/04/22 Range/Units 09:00 11:11 WBC (4.0-10.5) x10^3/uL RBC (4.1-5.4) x10^6/uL Hgb (12.0-16.0) g/dL Hct (35-47) % MCV (78-100) fL MCH (26-32) pg MCHC (32-36) g/dL RDW (11.5-14.0) % Plt Count (150-450) x10^3/uL MPV (7.5-11.0) fL Gran % (36.0-66.0) % Immature Gran % (Auto) (0.00-0.4) % Nucleat RBC Rel Count (0.00-0.1) % Eos # (Auto) (0-0.5) x10^3/uL Immature Gran # (Auto) (0.00-0.03) x10^3u/L Absolute Lymphs (auto) (1.0-4.6) x10^3/uL Absolute Monos (auto) (0.0-1.3) x10^3/uL Absolute Nucleated RBC (0.00-0.01) x10^3u/L Lymphocytes % (24.0-44.0) % Monocytes % (0.0-12.0) % Eosinophils % (0.00-5.0) % Basophils % (0.0-0.4) % Absolute Granulocytes (1.4-6.9) x10^3/uL Segmented Neutrophils (36.0-66.0) % Lymphocytes (Manual) (24-44) % Basophils # (0-0.4) x10^3/uL Platelet Estimate (NORMAL) Polychromasia Anisocytosis Sodium (137-145) mmol/L Potassium (3.5-5.1) mmol/L Chloride (98-107) mmol/L Carbon Dioxide (22-30) mmol/L Anion Gap (5-15) MEQ/L BUN (7-17) mg/dL Creatinine (0.52-1.04) mg/dL Estimated GFR ML/MIN Glucose (74-106) mg/dL POC Glucometer 409 H (50 to 500) mg/dL Calcium (8.4-10.2) mg/dL Total Bilirubin (0.2-1.3) mg/dL AST (14-36) U/L ALT (0-35) U/L Alkaline Phosphatase (38-126) U/L Troponin I (0.000-0.034) ng/mL Serum Total Protein (6.3-8.2) g/dL Albumin (3.5-5.0) g/dL Influenza Type A Ag NEGATIVE (NEGATIVE) Influenza Type B Ag NEGATIVE (NEGATIVE) RSV (PCR) NEGATIVE (Negative) SARS-CoV-2 (PCR) NEGATIVE (NEGATIVE) Crossmatch (COMPATIBLE) Radiology Exams: Radiology Procedures Category Date Time Status CHEST 1 VIEW (PORTABLE) Stat Exams 06/03/22 03:57 Taken CHEST WITH CONTRAST [CT] Stat Exams 06/03/22 05:56 Taken Multi-Disciplinary Progress Notes: Multi-Disciplinary Progress Notes 06/04/22 10:29 Case Management Note by Lyric Hauser PATIENT CONTINUES TO DENY ANY NEW NEEDS AT TIME OF DC. SHE LIVES WITH HER SON AND ALREADY HAS [facility] SET UP Initialized on 06/04/22 10:29 - END OF NOTE 08/24/22 12:56 Case Management Note by Lyric Hauser PATIENT HAS [facility]. THEY WERE NOTIFIED SHE WAS HERE. THEY WILL NEED NOTIFIED AT TIME OF DC AT [phone]. THEY WILL NEED FAXED THE DC INSTRUC TIONS, DC MED LIST AND DC SUMMARY ( IF AVAILABLE) TO [phone] Initialized on 06/03/22 12:56 - END OF NOTE Assessment/Plan (1) COPD exacerbation Current Visit: Yes Status: Acute Code(s): J44.1 - CHRONIC OBSTRUCTIVE PULMONARY DISEASE W (ACUTE) EXACERBATION (2) SOB (shortness of breath) Current Visit: Yes Status: Resolved Code(s): R06.02 - SHORTNESS OF BREATH (3) Normocytic anemia Current Visit: Yes Status: Acute Code(s): D64.9 - ANEMIA, UNSPECIFIED (4) Arthritis of spine Current Visit: Yes Status: Chronic Code(s): M47.819 - SPONDYLOSIS WITHOUT MYELOPATHY OR RADICULOPATHY, SITE [facility]
--- NOTE | 2022-06-04 23:06 | XRAY ---
Exam: AP upright portable chest film from 06/03/2022. Comparison: AP upright portable chest film from 04/15/2022. Indication: Shortness of breath. Findings: The heart size is within normal limits for this AP portable technique representing no change. Moderate tortuosity of the thoracic aorta is seen. Some chronic central bronchial wall thickening is noted. The lungs are adequately expanded. No airspace disease, vascular congestion, pneumothorax, or pleural fluid is seen. I again see minimal elevation of the right hemidiaphragm. Mild degenerative changes are seen within both shoulder girdles. Impression: 1. No acute cardiopulmonary disease is seen, no change from 04/15/2022.
[2022-06-05 05:30] LABS: Absolute Neutrophil Ct (ANC) 8.93 x10^3/uL (1.4-6.9); Basophil (Absolute #) 0.01 x10^3/uL (0-0.4); Eosinophil (Absolute #) 0 x10^3/uL (0-0.5); Hematocrit 27.8 % (35-47); Hemoglobin 8.2 g/dL (12.0-16.0); Lymphocyte (Absolute #) 0.43 x10^3/uL (1.0-4.6); Lymphocytes % 4.4 % (24.0-44.0); Mean Cell Volume 92.7 fL (78-100); Mean Corpuscular Hemoglobin 27.3 pg (26-32); Mean Corpuscular Hgb Concent. 29.5 g/dL (32-36); Monocyte (Absolute #) 0.27 x10^3/uL (0.0-1.3); Monocytes % 2.8 % (0.0-12.0); Neutrophil % 92.1 % (36.0-66.0); Platelet Count 261 x10^3/uL (150-450); Red Cell Distribution Width 15.5 % (11.5-14.0); White Blood Count 9.7 x10^3/uL (4.0-10.5)
[2022-06-05] MEDS: Medrol Dosepack PO SCH ×2 (07:07→12:15)
[2022-06-05] MEDS ORDERED: MEDROL 4 MG PO SCH ×4 (07:30→22:00)
--- NOTE | 2022-06-05 07:34 | PCM.DS ---
Discharge Summary Date of Admission: 06/03/22 08:30 Admitting Physician: ANNELISE DOTY Primary Care Provider: CALVIN PALOMINO Allergies Allergies cyclobenzaprine HCl [From Flexeril] Allergy (Mild, Verified 06/03/22 03:37) Rash metoclopramide [From Reglan] Allergy (Mild, Verified 06/03/22 03:37) Rash Sulfa (Sulfonamide Antibiotics) [Sulfa(Sulfonamide Antibiotics)] Allergy (Mild, Verified 06/03/22 03:37) Rash adhesive Allergy (Verified 06/03/22 03:37) Rash nalbuphine HCl [From Nubain] Adverse Reaction (Intermediate, Verified 06/03/22 03:37) Stomach Cramps patient states she had stomach "burning" and that her legs felt like "rubber bands" ciprofloxacin [From Cipro] Adverse Reaction (Mild, Verified 06/03/22 03:37) Rash meperidine HCl [From Demerol] Adverse Reaction (Mild, Verified 06/03/22 03:37) Vomiting Hospital Summary - Hospital Course Hospital Course: Chief Complaint Diagnosis shortness of breath for 1 day Allergies Allergy/AdvReac Type Severity Reaction Status Date / Time cyclobenzaprine HCl Allergy Mild Rash Verified 06/03/22 03:37 [From Flexeril] metoclopramide [From Reglan] Allergy Mild Rash Verified 06/03/22 03:37 Sulfa (Sulfonamide Allergy Mild Rash Verified 06/03/22 03:37 Antibiotics) [Sulfa(Sulfonamide Antibiotics)] adhesive Allergy Rash Verified 06/03/22 03:37 nalbuphine HCl [From Nubain] AdvReac Intermediate Stomach Verified 06/03/22 03:37 Cramps ciprofloxacin [From Cipro] AdvReac Mild Rash Verified 06/03/22 03:37 meperidine HCl [From Demerol] AdvReac Mild Vomiting Verified 06/03/22 03:37 Vital Signs (Last 24 hours) Temp Pulse Resp BP Pulse Ox 06/05/22 04:00 97.3 F 73 18 123/71 95 06/05/22 00:03 93 L 06/04/22 23:44 97.0 F 77 20 123/61 95 06/04/22 22:35 94 L 06/04/22 19:44 97.9 F 79 20 113/65 94 L 06/04/22 19:30 79 20 95 06/04/22 16:00 96.2 F 77 18 114/56 94 L 06/04/22 11:32 97.3 F 80 19 103/61 94 L 06/04/22 08:00 97.1 F 85 17 159/81 95 Home Medications Medication Instructions Recorded Confirmed Last Taken Type Alprazolam [Xanax] 0.5 mg PO TID PRN PRN 06/03/22 06/03/22 Unknown History Aripiprazole [Abilify] 2 mg PO DAILY 06/03/22 06/03/22 06/02/22 History Aspirin [Aspirin EC] 81 mg PO DAILY 06/03/22 06/03/22 06/02/22 History Duloxetine HCl 60 mg PO DAILY 06/03/22 06/03/22 06/02/22 History Ergocalciferol (Vitamin D2) 1,250 mcg PO 2XW 06/03/22 06/03/22 Unknown History [Vitamin D2] Ergocalciferol (Vitamin D2) 50,000 unit PO 2XW 06/03/22 06/03/22 Unknown History [Vitamin D2] Fluticasone Propion/Salmeterol 1 each IH BIDRT 06/03/22 06/03/22 06/02/22 History [Fluticasone-Salmeterol 250-50] Hydrocodone/Acetaminophen 1 tab PO Q6HPRN PRN MDD 4 06/03/22 06/03/22 Unknown History [Hydrocodone-Acetamin 5-325 mg] Insulin Detemir [Levemir] 20 unit SQ BID 06/03/22 06/03/22 06/02/22 History Loperamide HCl [Loperamide] 4 mg PO Q12H PRN PRN 06/03/22 06/03/22 Unknown History Magnesium Oxide 400 mg [Mag-Ox 800 mg PO DAILY 06/03/22 06/03/22 06/02/22 History 400] Metformin HCl [Metformin ER 1,000 mg PO BID 06/03/22 06/03/22 06/02/22 History Osmotic] Metoclopramide HCl [Reglan] 10 mg PO Q6H PRN PRN 06/03/22 06/03/22 Unknown History Nitroglycerin 0.4 mg Tablet 0.4 mg SL Q5MIN PRN MR X 3 PRN 06/03/22 06/03/22 Unknown History [Nitrostat 0.4 MG Tablet] Pravastatin Sodium 80 mg PO DAILY 06/03/22 06/03/22 06/02/22 History Prednisone 20 mg [Deltasone 20 20 mg PO BID 06/03/22 06/03/22 06/02/22 History mg] Primidone 50 MG [Mysoline 50Mg] 50 mg PO TID 06/03/22 06/03/22 06/02/22 History Ranolazine 500 MG [Ranexa 500 500 mg PO BID 06/03/22 06/03/22 06/02/22 H istory MG] Rivaroxaban [Xarelto] 20 mg PO DAILY 06/03/22 06/03/22 Unknown History Rivaroxaban [Xarelto] 20 mg PO DAILY 06/03/22 06/03/22 06/02/22 History Saccharomyces Boulardii [Florastor] 250 mg PO BID 06/03/22 06/03/22 06/02/22 History Sitagliptin Phosphate [Januvia] 100 mg PO DAILY 06/03/22 06/03/22 06/02/22 History azaTHIOprine [Azathioprine] 50 mg PO BID 06/03/22 06/03/22 06/02/22 History carvediloL [Carvedilol] 25 mg PO BID 06/03/22 06/03/22 06/02/22 History lisinopriL [Zestril] 2.5 mg PO DAILY 06/03/22 06/03/22 06/02/22 History Current Medications Generic Name Dose Route Start Last Admin Trade Name Freq PRN Reason Stop Dose Admin Hydrocodone Bitart/Acetaminophen 1 tab 06/03/22 13:01 Hydrocodone/Apap 5/325 Mg Tablet PO 06/08/22 13:00 Q6HPRN PRN PAIN Albuterol Sulfate 2 puff 06/03/22 09:04 Albuterol Common Canister Inhaler IH 07/03/22 09:03 Q4H PRN PRN SHORTNESS OF BREATH/WHEEZING Alprazolam 0.5 mg 06/03/22 13:01 Alprazolam 0.5 Mg Tablet PO 07/03/22 13:00 TID PRN PRN ANXIETY Aripiprazole 2.5 mg 06/03/22 14:00 06/04/22 09:08 Aripiprazole 10 Mg Tablet PO 07/03/22 13:59 2.5 mg DAILY MITCH Administration Carvedilol 25 mg 06/03/22 14:00 06/04/22 21:00 Carvedilol 12.5 Mg Tablet PO 07/03/22 13:59 25 mg BID MITCH Administration Duloxetine HCl 60 mg 06/03/22 14:00 06/04/22 09:07 Duloxetine Hcl 30 Mg Cap PO 07/03/22 13:59 60 mg DAILY MITCH Administration Ergocalciferol 50,000 unit 06/04/22 10:00 06/04/22 09:11 Ergocalciferol (Vitamin D2) 50,000 Unit Capsule PO 07/04/22 09:59 50,000 unit SuTh MITCH Administration Insulin Glargine 20 unit 06/03/22 14:00 06/04/22 21:00 Insulin Glargine 1 Unit SQ 07/03/22 13:59 20 unit BID MITCH Administration Insulin Human Lispro 0 unit 06/03/22 07:33 06/04/22 20:54 Insulin Lispro 1 Unit SQ 07/03/22 07:32 12 unit UD PRN Administration HYPERGLYCEMIA Insulin Human Lispro 7 unit 06/03/22 16:30 06/04/22 16:59 Insulin Lispro 1 Unit SQ 07/03/22 16:29 7 unit AC MITCH Administration Isosorbide Mononitrate 60 mg 06/03/22 14:00 06/04/22 09:09 Isosorbide Mononitrate 60 Mg Tab PO 07/03/22 13:59 60 mg DAILY MITCH Administration Lactobacillus Acidophilus 1 tab 06/03/22 14:00 06/04/22 21:01 Lactobacillus Acidophilus 1 Tab Tablet PO 07/03/22 13:59 1 tab BID MITCH Administration Levothyroxine Sodium 25 mcg 06/03/22 14:00 06/04/22 09:07 Levothyroxine Sodium 25 Mcg Tablet PO 07/03/22 13:59 25 mcg DAILY MITCH Administration Lisinopril 2.5 mg 06/03/22 14:00 06/04/22 09:10 Lisinopril 5 Mg Tablet PO 07/03/22 13:59 2.5 mg DAILY MITCH Administration Loperamide HCl 4 mg 06/03/22 13:01 Loperamide Hcl 2 Mg Capsule PO 07/03/22 13:00 Q12H PRN PRN DIARRHEA Magnesium Oxide 800 mg 06/03/22 14:00 06/04/22 09:06 Magnesium Oxide 400 Mg Tablet PO 07/03/22 13:59 800 mg DAILY MITCH Administration Meclizine HCl 25 mg 06/03/22 13:01 Meclizine Hcl 25 Mg Tablet PO 07/03/22 13:00 Q8H PRN PRN DIZZINESS Metformin HCl 1,000 mg 06/05/22 08:00 Metformin Hcl 500 Mg Tablet PO 07/05/22 07:59 BIDWM MITCH Methocarbamol 1,000 mg 06/03/22 13:01 Methocarbamol 500 Mg Tablet PO 07/03/22 13:00 QIDPRN PRN PAIN Methylprednisolone 0 mg 06/04/22 15:15 Methylprednisolone 4 Mg Packet PO 07/04/22 15:14 UD [facility] Methylprednisolone 4 mg 06/05/22 12:30 Methylprednisolone 4 Mg Tablet PO 06/08/22 12:31 1230 [facility] Methylprednisolone 4 mg 06/05/22 18:30 Methylprednisolone 4 Mg Tablet PO 06/07/22 18:31 1830 [facility] Methylprednisolone 8 mg 06/05/22 22:00 Methylprednisolone 4 Mg Tablet PO 06/06/22 22:01 HS [facility] Methylprednisolone 4 mg 06/06/22 07:30 Methylprednisolone 4 Mg Tablet PO 06/10/22 07:31 QDAC MITCH Methylprednisolone 4 mg 06/07/22 22:00 Methylprednisolone 4 Mg Tablet PO 06/09/22 22:01 HS [facility] Metoclopramide HCl 10 mg 06/03/22 13:01 Metoclopramide Hcl 10 Mg Tablet PO 07/03/22 13:00 Q6H PRN PRN INDIGESTION Miscellaneous Information 1 each 06/03/22 14:00 Medication Intervention 1 Each Each 07/03/22 13:59 .RN TO CHECK MITCH Morphine Sulfate 4 mg 06/03/22 13:24 06/04/22 20:54 Morphine Sulfate 4 Mg/Ml Injection IV 06/08/22 13:23 4 mg Q4H PRN PRN Administration PAIN Nitroglycerin 0.4 mg 06/03/22 13:01 Nitroglycerin 0.4 Mg Tablet Bottle SL 07/03/22 13:00 Q5MIN PRN MR X 3 PRN CHEST PAIN Azathioprine 50mg 1 each 06/03/22 14:00 06/04/22 21:02 Tablet PO 07/03/22 13:59 1 each BID MITCH Administration Non-Formulary Medication 1 each 06/03/22 08:30 06/04/22 08:37 Hold Metformin Products For 48hrs 06/05/22 07:59 1 each Q24H MITCH Administration Pantoprazole Sodium 40 mg 06/03/22 14:00 06/04/22 21:01 Protonix (Pantoprazole) 40 Mg Tablet PO 07/03/22 13:59 40 mg BID MITCH Administration Paroxetine HCl 30 mg 06/03/22 14:00 06/04/22 09:07 Paroxetine Hcl 20 Mg Tablet PO 07/03/22 13:59 30 mg DAILY MITCH Administration Primidone 50 mg 06/03/22 15:00 06/04/22 21:00 Primidone 50 Mg Tablet PO 07/03/22 14:59 50 mg TID MITCH Administration Ranolazine 500 mg 06/03/22 14:00 06/04/22 21:01 Ranolazine 500 Mg Tab.Sr.12h PO 07/03/22 13:59 500 mg BID MITCH Administration Simvastatin 10 mg 06/03/22 14:00 06/04/22 09:07 Simvastatin 10 Mg Tablet PO 07/03/22 13:59 10 mg DAILY MITCH Administration Sitagliptin Phosphate 100 mg 06/03/22 14:00 06/04/22 09:07 Sitagliptin Phosphate 50 Mg Tablet PO 07/03/22 13:59 100 mg DAILY MITCH Administration Discontinued Medications Generic Name Dose Route Start Last Admin Trade Name Freq PRN Reason Stop Dose Admin Albuterol/Ipratropium 3 ml 06/03/22 04:18 06/03/22 04:25 Ipratropium/Albuterol Sulfate 3 Ml Ampul.Neb IH 06/03/22 04:19 3 ml STAT ONE Administration Albuterol/Ipratropium Confirm 06/03/22 04:25 Ipratropium/Albuterol Sulfate 3 Ml Ampul.Neb Administered 06/03/22 04:26 Dose 3 ml IH .STK-MED ONE Aspirin 81 mg 06/03/22 14:00 06/03/22 14:11 Aspirin 81 Mg Tablet.Ec PO 07/03/22 13:59 81 mg DAILY MITCH Administration Methylprednisolone Sodium 0 mg 06/03/22 04:18 06/03/22 04:31 Succinate 125 mg/ Sterile IV 06/03/22 04:19 125 mg Water 2 ml STAT ONE Administration Methylprednisolone Sodium 0 mg 06/03/22 12:00 06/04/22 11:36 Succinate 60 mg/ Sterile Water IV 07/03/22 11:59 0.96 mg 2 ml Q6HT MITCH Administration Sodium Chloride 1,000 mls @ 50 mls/hr 06/03/22 07:45 06/04/22 02:27 Sodium Chloride 0.9% 1000 Ml IV 07/03/22 07:44 50 mls/hr .Q20H MITCH Administration Metformin HCl 1,000 mg 06/03/22 17:00 06/03/22 18:04 Metformin Hcl 500 Mg Tablet PO 07/03/22 16:59 Not Given BIDWM MITCH Methylprednisolone 8 mg 06/05/22 07:30 06/05/22 07:12 Methylprednisolone 4 Mg Tablet PO 06/05/22 07:31 8 mg QDAC MITCH Administration Methylprednisolone Sodium Succinate Confirm 06/03/22 04:30 Methylprednis Sod Succ 125 Mg/2 Ml Vial Administered 06/03/22 04:31 Dose 125 mg .ROUTE .STK-MED ONE Methylprednisolone Sodium Succinate Confirm 06/03/22 17:29 Methylprednis Sod Succ 125 Mg/2 Ml Vial Administered 06/03/22 17:30 Dose 125 mg .ROUTE .STK-MED ONE Methylprednisolone Sodium Succinate Confirm 06/04/22 04:22 Methylprednis Sod Succ 125 Mg/2 Ml Vial Administered 06/04/22 04:23 Dose 125 mg .ROUTE .STK-MED ONE Morphine Sulfate 4 mg 06/03/22 06:29 06/03/22 06:51 Morphine Sulfate 4 Mg/Ml Injection IV 06/03/22 06:30 4 mg STAT ONE Administration Morphine Sulfate Confirm 06/03/22 06:50 Morphine Sulfate 4 Mg/Ml Injection Administered 06/03/22 06:51 Dose 4 mg .ROUTE .STK-MED ONE Prednisone 20 mg 06/03/22 14:00 06/04/22 21:01 Prednisone 20 Mg Tablet PO 07/03/22 13:59 20 mg BID MITCH Administration Rivaroxaban 20 mg 06/03/22 14:00 06/03/22 14:09 Rivaroxaban 10 Mg Tablet PO 07/03/22 13:59 20 mg DAILY MITCH Administration Fluticasone/Salmeterol 2 puff 06/03/22 19:00 Fluticasone/Salmeterol 115/21 - 120 Puff Common Canister IH 07/03/22 18:59 BIDRT MITCH Sterile Water Confirm 06/03/22 04:30 Water For Injection,Sterile 10 Ml Vial Administered 06/03/22 04:31 Dose 10 ml IJ .STK-MED ONE Intake & Output (Last 24 hours) 06/02/22 06/03/22 06/04/22 06/05/22 11:59 11:59 11:59 11:59 Intake Total 240 4445 1440 Balance 240 4445 1440 Weight 139.2 kg 141.5 kg 144.6 kg Microbiology Results (Last 24 hours) 06/03/22 03:57 Clean Catch Midstream Urine Culture - Final MIXED VIVEK; 3 OR MORE TYPES. NO PREDOMINANT ORGANISM. NO FURTHER WORKUP. PLEASE RESUBMIT IF CLINICALLY INDICATED. 06/03/22 04:40 Blood Blood Culture Gram Stain - Pending 06/03/22 04:40 Blood Blood Culture - Preliminary NO GROWTH TO DATE Laboratory Results (Last 24 hours) 06/05/22 06/04/22 06/04/22 05:20 20:44 17:30 WBC 9.7 RBC 3.00 L Hgb 8.2 L Hct 27.8 L MCV 92.7 MCH 27.3 MCHC 29.5 L RDW 15.5 H Plt Count 261 MPV 12.0 H Gran % 92.1 H Immature Gran % (Auto) 0.6 H Nucleat RBC Rel Count 0.0 Eos # (Auto) 0 Immature Gran # (Auto) 0.06 H Absolute Lymphs (auto) 0.43 L Absolute Monos (auto) 0.27 Absolute Nucleated RBC 0.00 Lymphocytes % 4.4 L Monocytes % 2.8 Eosinophils % 0.0 Basophils % 0.1 Absolute Granulocytes 8.93 H Basophils # 0.01 POC Glucometer 456 H Hemoglobin A1c 9.37 H Influenza Type A Ag Influenza Type B Ag RSV (PCR) SARS-CoV-2 (PCR) 06/04/22 06/04/22 06/04/22 16:05 11:11 09:00 WBC RBC Hgb Hct MCV MCH MCHC RDW Plt Count MPV Gran % Immature Gran % (Auto) Nucleat RBC Rel Count Eos # (Auto) Immature Gran # (Auto) Absolute Lymphs (auto) Absolute Monos (auto) Absolute Nucleated RBC Lymphocytes % Monocytes % Eosinophils % Basophils % Absolute Granulocytes Basophils # POC Glucometer 399 H 409 H Hemoglobin A1c Influenza Type A Ag NEGATIVE Influenza Type B Ag NEGATIVE RSV (PCR) NEGATIVE SARS-CoV-2 (PCR) NEGATIVE Orders (Last 24 hours) Category Date Time Status CBC W DIFF Routine Lab 06/05/22 05:20 Completed COVID/FLU/RSV Panel Urgent Lab 06/04/22 09:00 Completed HEMOGLOBIN A1C Urgent Lab 06/04/22 17:30 Completed POCT GLUCOSE Stat Lab 06/04/22 06:57 Completed POCT GLUCOSE Stat Lab 06/04/22 11:11 Completed POCT GLUCOSE Stat Lab 06/04/22 16:05 Completed POCT GLUCOSE Stat Lab 06/04/22 20:44 Completed Ergocalciferol (Vitamin D2) [Vitamin D2] Med 06/04/22 10:00 Active 50,000 unit PO SuTh Metformin HCl 500 mg [Glucophage 500 MG] Med 06/05/22 08:00 Active 1,000 mg PO BIDWM Methylprednisolone 4 mg [Medrol 4 mg] Med 06/05/22 12:30 Active 4 mg PO 1230 Methylprednisolone 4 mg [Medrol 4 mg] Med 06/05/22 18:30 Active 4 mg PO 1830 Methylprednisolone 4 mg [Medrol 4 mg] Med 06/07/22 22:00 Active 4 mg PO HS Methylprednisolone 4 mg [Medrol 4 mg] Med 06/06/22 07:30 Active 4 mg PO QDAC Methylprednisolone 4 mg [Medrol 4 mg] Med 06/05/22 22:00 Active 8 mg PO HS Methylprednisolone 4 mg [Medrol 4 mg] Med 06/05/22 07:30 Discontinued 8 mg PO QDAC Methylprednisolone Packet [Medrol Dosepack] Med 06/04/22 15:15 Active See Dose Instructions PO UD Patient Care Notes (Last 24 hours) 06/04/22 10:29 Case Management Note by Lyric Hauser PATIENT CONTINUES TO DENY ANY NEW NEEDS AT TIME OF DC. SHE LIVES WITH HER SON AND ALREADY HAS C SET UP Initialized on 06/04/22 10:29 - END OF NOTE - Vitals & Intake/Output Vital Signs: Vital Signs Temperature 97.3 F 06/05/22 04:00 Pulse Rate 73 06/05/22 04:00 Respiratory Rate 18 06/05/22 04:00 Blood Pressure 123/71 06/05/22 04:00 O2 Sat by Pulse Oximetry 95 06/05/22 04:00 Intake & Output: Intake & Output 06/02/22 06/03/22 06/04/22 06/05/22 11:59 11:59 11:59 11:59 Intake Total 240 4445 1440 Balance 240 4445 1440 Weight 139.2 kg 141.5 kg 144.6 kg - Lab Result Diagrams: 06/05/22 05:20 06/04/22 05:00 Lab Results-Last 24 Hrs: Lab Results-Last 24 Hours 06/04/22 06/04/22 06/04/22 Range/Units 09:00 11:11 16:05 WBC (4.0-10.5) x10^3/uL RBC (4.1-5.4) x10^6/uL Hgb (12.0-16.0) g/dL Hct (35-47) % MCV (78-100) fL MCH (26-32) pg MCHC (32-36) g/dL RDW (11.5-14.0) % Plt Count (150-450) x10^3/uL MPV (7.5-11.0) fL Gran % (36.0-66.0) % Immature Gran % (Auto) (0.00-0.4) % Nucleat RBC Rel Count (0.00-0.1) % Eos # (Auto) (0-0.5) x10^3/uL Immature Gran # (Auto) (0.00-0.03) x10^3u/L Absolute Lymphs (auto) (1.0-4.6) x10^3/uL Absolute Monos (auto) (0.0-1.3) x10^3/uL Absolute Nucleated RBC (0.00-0.01) x10^3u/L Lymphocytes % (24.0-44.0) % Monocytes % (0.0-12.0) % Eosinophils % (0.00-5.0) % Basophils % (0.0-0.4) % Absolute Granulocytes (1.4-6.9) x10^3/uL Basophils # (0-0.4) x10^3/uL POC Glucometer 409 H 399 H (74 to 106) mg/dL Hemoglobin A1c (4.5-6.0) % Influenza Type A Ag NEGATIVE (NEGATIVE) Influenza Type B Ag NEGATIVE (NEGATIVE) RSV (PCR) NEGATIVE (Negative) SARS-CoV-2 (PCR) NEGATIVE (NEGATIVE) 06/04/22 06/04/22 06/05/22 Range/Units 17:30 20:44 05:20 WBC 9.7 (4.0-10.5) x10^3/uL RBC 3.00 L (4.1-5.4) x10^6/uL Hgb 8.2 L (12.0-16.0) g/dL Hct 27.8 L (35-47) % MCV 92.7 (78-100) fL MCH 27.3 (26-32) pg MCHC 29.5 L (32-36) g/dL RDW 15.5 H (11.5-14.0) % Plt Count 261 (150-450) x10^3/uL MPV 12.0 H (7.5-11.0) fL Gran % 92.1 H (36.0-66.0) % Immature Gran % (Auto) 0.6 H (0.00-0.4) % Nucleat RBC Rel Count 0.0 (0.00-0.1) % Eos # (Auto) 0 (0-0.5) x10^3/uL Immature Gran # (Auto) 0.06 H (0.00-0.03) x10^3u/L Absolute Lymphs (auto) 0.43 L (1.0-4.6) x10^3/uL Absolute Monos (auto) 0.27 (0.0-1.3) x10^3/uL Absolute Nucleated RBC 0.00 (0.00-0.01) x10^3u/L Lymphocytes % 4.4 L (24.0-44.0) % Monocytes % 2.8 (0.0-12.0) % Eosinophils % 0.0 (0.00-5.0) % Basophils % 0.1 (0.0-0.4) % Absolute Granulocytes 8.93 H (1.4-6.9) x10^3/uL Basophils # 0.01 (0-0.4) x10^3/uL POC Glucometer 456 H (74 to 106) mg/dL Hemoglobin A1c 9.37 H (4.5-6.0) % Influenza Type A Ag (NEGATIVE) Influenza Type B Ag (NEGATIVE) RSV (PCR) (Negative) SARS-CoV-2 (PCR) (NEGATIVE) Micro Results-Entire Visit: Microbiology 06/03/22 03:57 Urine Culture - Final Clean Catch Midstream MIXED VIVEK; 3 OR MORE TYPES. NO PREDOMINANT ORGANISM. NO FURTHER WORKUP. PLEASE RESUBMIT IF CLINICALLY INDICATED. 06/03/22 04:40 Blood Culture - Preliminary Blood NO GROWTH TO DATE 06/03/22 04:01 Blood Culture Gram Stain - Final Blood Accuchecks Date 06/04/22 Date 06/04/22 Date 06/04/22 Time 21:04 - Procedures and Test Procedures and Tests throughout Hospitalization: Therapy Orders & Screens 06/03/22 04:35 Respiratory Therapy Assessment DAILY Comment: 06/03/22 07:37 Respiratory Therapy Consult ROUTINE Comment: Reason For Exam: Discharge Exam General Appearance: no apparent distress, alert Neurologic Exam: alert, oriented x 3, cooperative, normal mood/affect, nml cerebellar function, sensation nml, No motor deficits Eye Exam: PERRL, EOMI, eyes nml inspection Ears, Nose, Throat Exam: normal ENT inspection, pharynx normal, moist mucous membranes Neck Exam: normal inspection, non-tender, supple, full range of motion Respiratory Exam: diminished breath sounds, No respiratory distress Cardiovascular Exam: regular rate/rhythm, normal heart sounds Gastrointestinal/Abdomen Exam: soft, No tenderness, No mass Pelvic Exam: deferred Rectal Exam: deferred Back Exam: normal inspection, normal range of motion, No CVA tenderness, No vertebral tenderness Extremity Exam: normal inspection, normal range of motion Skin Exam: normal color, warm, dry Final Diagnosis/Problem List - Final Discharge Diagnosis/Problem (1) COPD exacerbation Current Visit: Yes Status: Resolved Code(s): J44.1 - CHRONIC OBSTRUCTIVE PULMONARY DISEASE W (ACUTE) EXACERBATION (2) SOB (shortness of breath) Current Visit: Yes Status: Resolved Code(s): R06.02 - SHORTNESS OF BREATH (3) Normocytic anemia Current Visit: Yes Status: Acute Code(s): D64.9 - ANEMIA, UNSPECIFIED (4) Arthritis of spine Current Visit: Yes Status: Chronic Code(s): M47.819 - SPONDYLOSIS WITHOUT MYELOPATHY OR RADICULOPATHY, SITE UNSP - Discharge Discharge Date: 06/05/22 Disposition: Home, Self-Care Condition: Stable Prescriptions: No Action Mesalamine [Pentasa] 500 mg PO BID Omeprazole 20 MG [Prilosec 20 mg] 20 mg PO BID Methocarbamol [Robaxin] 1,000 mg PO QIDPRN PRN PRN Reason: Pain Duloxetine HCl 60 mg PO DAILY Atorvastatin Calcium 10 mg PO DAILY Insulin Glargine,Hum.rec.anlog [Basaglar Kwikpen U-100] 20 unit SQ HS Meclizine HCl 25 mg [Antivert 25 mg] 25 mg PO Q8H PRN PRN PRN Reason: Dizziness Insulin Aspart [Novolog] 7 unit SQ AC Levothyroxine Sodium 25 Mcg [Synthroid 25 Mcg] 25 mcg PO DAILY Isosorbide Mononitrate 60 mg [Imdur 60MG] 60 mg PO DAILY PARoxetine HCl [Paxil] 30 mg PO DAILY Rivaroxaban [Xarelto] 20 mg PO DAILY Saccharomyces Boulardii [Florastor] 250 mg PO BID Rivaroxaban [Xarelto] 20 mg PO DAILY Ranolazine 500 MG [Ranexa 500 MG] 500 mg PO BID Primidone 50 MG [Mysoline 50Mg] 50 mg PO TID Prednisone 20 mg [Deltasone 20 mg] 20 mg PO BID Pravastatin Sodium 80 mg PO DAILY Nitroglycerin 0.4 mg Tablet [Nitrostat 0.4 MG Tablet] 0.4 mg SL Q5MIN PRN MR X 3 PRN PRN Reason: Chest Pain Metoclopramide HCl [Reglan] 10 mg PO Q6H PRN PRN PRN Reason: Indigestion Metformin HCl [Metformin ER Osmotic] 1,000 mg PO BID Magnesium Oxide 400 mg [Mag-Ox 400] 800 mg PO DAILY Loperamide HCl [Loperamide] 4 mg PO Q12H PRN PRN PRN Reason: Diarrhea lisinopriL [Zestril] 2.5 mg PO DAILY Insulin Detemir [Levemir] 20 unit SQ BID Hydrocodone/Acetaminophen [Hydrocodone-Acetamin 5-325 mg] 1 tab PO Q6HPRN PRN MDD 4 PRN Reason: Pain Fluticasone Propion/Salmeterol [Fluticasone-Salmeterol 250-50] 1 each IH BIDRT Ergocalciferol (Vitamin D2) [Vitamin D2] 50,000 unit PO 2XW Ergocalciferol (Vitamin D2) [Vitamin D2] 1,250 mcg PO 2XW Duloxetine HCl 60 mg PO DAILY carvediloL [Carvedilol] 25 mg PO BID azaTHIOprine [Azathioprine] 50 mg PO BID Aspirin [Aspirin EC] 81 mg PO DAILY Aripiprazole [Abilify] 2 mg PO DAILY Alprazolam [Xanax] 0.5 mg PO TID PRN PRN PRN Reason: Anxiety Sitagliptin Phosphate [Januvia] 100 mg PO DAILY Follow up with: CALVIN PALOMINO [Primary Care Provider] - 7 Days
[2022-06-05] MEDS: HUMALOG SQ SCH ×2 (07:50→12:14)
[2022-06-05] MEDS: HUMALOG SQ PRN ×2 (07:50→12:14)
[2022-06-05] MEDS ORDERED: Glucophage 500 MG PO SCH (08:00)
[2022-06-05 08:01] LABS: Slide Review 1 YES
[2022-06-05] MEDS: Imdur 60MG PO SCH (09:12)
[2022-06-05] MEDS: Acidophilus TABLET PO SCH (09:12)
[2022-06-05] MEDS: Abilify 10 MG PO SCH (09:12)
[2022-06-05] MEDS: Zocor 10MG PO SCH (09:12)
[2022-06-05] MEDS: Zestril 5 MG PO SCH (09:12)
[2022-06-05] MEDS: SYNTHROID 25 MCG PO SCH (09:12)
[2022-06-05] MEDS: COREG 12.5 MG PO SCH (09:13)
[2022-06-05] MEDS: Paxil 20 MG PO SCH (09:13)
[2022-06-05] MEDS: Cymbalta 30 MG Capsule PO SCH (09:13)
[2022-06-05] MEDS: MYSOLINE 50MG PO SCH (09:13)
[2022-06-05] MEDS: MAG-OX 400 PO SCH (09:13)
[2022-06-05] MEDS: Januvia 50 MG PO SCH (09:13)
[2022-06-05] MEDS: NON-FORMULARY ITEM PO SCH (09:14)
[2022-06-05] MEDS: Lantus Insulin SQ SCH (09:14)
[2022-06-05] MEDS: Protonix 40MG Tablet PO SCH (09:14)
[2022-06-05] MEDS: Ranexa 500 MG PO SCH (09:14)
[2022-06-05] MEDS: MORPHINE SULFATE 4 MG INJ IV PRN (09:28)
[2022-06-05 11:25] VITALS: BP 124/67; PULSE 75; O2SAT 98
--- NOTE | 2022-06-06 02:00 | XRAY ---
Exam: CT of the chest with IV contrast, per PE protocol, from 06/03/2022. CTDI: 27.35 mGy Comparison: CT of the chest with IV contrast from 04/20/[address] of the chest with IV contrast from 04/15/2022. Indication: 62-year-old female with history of pulmonary emboli, particularly within right upper lobe, in early April,. She now complains of shortness of breath, chest pain, back pain. Technique: Post-IV contrast axial images were obtained through the chest using 100 cc of Isovue-370 contrast material using the PE protocol. Reconstructed coronal and sagittal images were created and reviewed. Axial and coronal MIP images were generated as well. Findings: Prior emboli within the right upper lobe pulmonary arteries on 04/15/2022 and 04/20/2022 have essentially resolved representing improvement. I see no new evidence of pulmonary embolism. There is no evidence of thoracic aortic dissection or aneurysm. The right hemidiaphragm is again noted to be mildly elevated. The heart size is within normal limits. Some coronary artery vascular calcification is seen within the left anterior descending coronary and circumflex artery on the left. No pericardial effusion is seen. There is a lymph node just anterior to the right mainstem bronchus measuring 1.2 cm in width on axial image #213. I don't believe this represents a significant change. I also note another stable lymph node a bit more laterally within the right hilum measuring 1.2 cm in short axis on axial image #216. There are also some smaller pericarinal lymph nodes which are essentially unchanged. I believe these lymph nodes are probably reactive. No definite pathological mediastinal lymphadenopathy is seen. Minimal posterior dependent compression atelectasis is seen at the posterior right lung base. I again see a tiny calcified granuloma within the medial right upper lobe. There is a tiny nonspecific subpleural 4 mm nodule posterolaterally within the right upper lobe. I believe this is unchanged. No other suspicious soft tissue lung nodule or infiltrate is seen. No pneumothorax or pleural fluid is seen. The upper abdomen reveals minimal high attenuation density within the posterior aspect of the gallbladder lumen consistent with cholelithiasis. The adrenal glands appear unremarkable. There is a 4.1 cm in diameter cyst at the lateral aspect of the upper pole of the left kidney. No other significant disease is seen within the visualized upper abdomen. The skeleton reveals moderate degenerative disc disease at C6-C7 and mild diffuse thoracic spondylosis. No acute fracture or aggressive bone lesion is seen. Impression: 1. Prior pulmonary emboli, particularly within the right upper lobe in early April,, are no longer seen. No new pulmonary emboli are seen. 2. I again see some nonspecific lymph nodes within the mediastinum which I believe are probably reactive and unchanged. 3. Cholelithiasis and a left renal cyst are again seen. 4. No other acute cardiopulmonary disease is seen.
[2022-06-06] MEDS ORDERED: MEDROL 4 MG PO SCH (07:30)
[2022-06-07] MEDS ORDERED: MEDROL 4 MG PO SCH (22:00)
== END 2022-06-05 13:35 | disposition home or self-care (01) ==
LOC: ED 03:23 → MED SURG 08:30
PROVIDERS: ADMIT General Practice; ATTEND General Practice
DX: J44.1 Chronic obstructive pulmonary disease with (acute) exacerbation (principal); R06.02 Shortness of breath; D64.9 Anemia, unspecified; M47.819 Spondylosis without myelopathy or radiculopathy, site unspecified; I25.10 Atherosclerotic heart disease of native coronary artery without angina pectoris; E78.00 Pure hypercholesterolemia, unspecified; I10 Essential (primary) hypertension; I25.2 Old myocardial infarction; E11.9 Type 2 diabetes mellitus without complications; Z20.828 Contact with and (suspected) exposure to other viral communicable diseases; Z79.899 Other long term (current) drug therapy; Z87.891 Personal history of nicotine dependence
CPT/HCPCS: 0241U; 36000; 36415; 71045; 71260; 80053; 81015; 82947; 83036; 83880; 84484; 85025; 85027; 85379; 86850; 86900; 86901; 86902; 86922; 87040; 87086; 93005; 93041; 94640; 94760; 94762; 96374; 96375; 99285; G0378; 86870; J1817; J2270; J2930; A9270-GY

== ENCOUNTER 2022-06-29 19:03 | Emergency (ER) | payer MEDICARE ==
[2022-06-29 19:14] VITALS: O2SAT 96
--- NOTE | 2022-06-29 19:19 | ERPHSYRPT ---
- History of Present Illness Time Seen by Provider: 06/29/22 19:17 Source: patient Exam Limitations: no limitations Patient Subjective Stated Complaint: pt states she has back pain today that has lasted two days. states lower back is hurting into r hip and down r leg states pain caused her to vomit today and states she has a cough and headache, rates pain as 9/10 Triage Nursing Assessment: pt is alert and oriented, walked in to room with some difficulty, states pain in back is 9/10 Physician History: This is an obese 62-year-old white female patient of Dr. Holguin and presents with a constellation of symptoms including headache, body aches backache and cough for approximately 2 days. Patient denies chest pain. She does not have significant shortness of breath. Patient also was noted to have couple of vomiting episodes in the last 2 days. Patient does not have abdominal pain. Patient has a history of morbid obesity, gastroesophageal reflux disease, hypothyroidism, coronary disease, hyperlipidemia, CHF, COPD and insulin- dependent diabetes. Patient drove herself into the emergency department. Patient denies acute traumatic injury to her back. Timing/Duration: day(s) (2) Cough Quality/Degree: mild Possible Cause: occasional episodes Modifying Factors: Improves With: coughing Associated Symptoms: cough, headache, muscle aches, No chest pain/soreness, No shortness of breath Allergies/Adverse Reactions: cyclobenzaprine HCl [From Flexeril] Allergy (Mild, Verified 06/29/22 19:14) Rash metoclopramide [From Reglan] Allergy (Mild, Verified 06/29/22 19:14) Rash Sulfa (Sulfonamide Antibiotics) [Sulfa(Sulfonamide Antibiotics)] Allergy (Mild, Verified 06/29/22 19:14) Rash adhesive Allergy (Verified 06/29/22 19:14) Rash nalbuphine HCl [From Nubain] Adverse Reaction (Intermediate, Verified 06/29/22 19:14) Stomach Cramps patient states she had stomach "burning" and that her legs felt like "rubber bands" ciprofloxacin [From Cipro] Adverse Reaction (Mild, Verified 06/29/22 19:14) Rash meperidine HCl [From Demerol] Adverse Reaction (Mild, Verified 06/29/22 19:14) Vomiting Home Medications: Duloxetine HCl 60 mg PO DAILY 03/17/16 [History] Mesalamine [Pentasa] 500 mg PO BID 03/17/16 [History] Methocarbamol [Robaxin] 1,000 mg PO QIDPRN PRN 03/17/16 [History] Omeprazole 20 MG [Prilosec 20 mg] 20 mg PO BID 03/17/16 [History] Atorvastatin Calcium 10 mg PO DAILY 01/25/18 [History] Insulin Glargine,Hum.rec.anlog [Basaglar Kwikpen U-100] 20 unit SQ HS 12/05/19 [History] Meclizine HCl 25 mg [Antivert 25 mg] 25 mg PO Q8H PRN PRN 12/05/19 [History] Insulin Aspart [Novolog] 7 unit SQ AC 08/02/20 [History] Isosorbide Mononitrate 60 mg [Imdur 60MG] 60 mg PO DAILY 12/31/20 [History] Levothyroxine Sodium 25 Mcg [Synthroid 25 Mcg] 25 mcg PO DAILY 12/31/20 [History] PARoxetine HCl [Paxil] 30 mg PO DAILY 01/18/21 [History] Alprazolam [Xanax] 0.5 mg PO TID PRN PRN 06/03/22 [History] Aripiprazole [Abilify] 2 mg PO DAILY 06/03/22 [History] Aspirin [Aspirin EC] 81 mg PO DAILY 06/03/22 [History] Duloxetine HCl 60 mg PO DAILY 06/03/22 [History] Ergocalciferol (Vitamin D2) [Vitamin D2] 1,250 mcg PO 2XW 06/03/22 [History] Ergocalciferol (Vitamin D2) [Vitamin D2] 50,000 unit PO 2XW 06/03/22 [History] Fluticasone Propion/Salmeterol [Fluticasone-Salmeterol 250-50] 1 each IH BIDRT 06/03/22 [History] Hydrocodone/Acetaminophen [Hydrocodone-Acetamin 5-325 mg] 1 tab PO Q6HPRN PRN MDD 4 06/03/22 [History] Insulin Detemir [Levemir] 20 unit SQ BID 06/03/22 [History] Loperamide HCl [Loperamide] 4 mg PO Q12H PRN PRN 06/03/22 [History] Magnesium Oxide 400 mg [Mag-Ox 400] 800 mg PO DAILY 06/03/22 [History] Metformin HCl [Metformin ER Osmotic] 1,000 mg PO BID 06/03/22 [History] Metoclopramide HCl [Reglan] 10 mg PO Q6H PRN PRN 06/03/22 [History] Nitroglycerin 0.4 mg Tablet [Nitrostat 0.4 MG Tablet] 0.4 mg SL Q5MIN PRN MR X 3 PRN 06/03/22 [History] Pravastatin Sodium 80 mg PO DAILY 06/03/22 [History] Prednisone 20 mg [Deltasone 20 mg] 20 mg PO BID 06/03/22 [History] Primidone 50 MG [Mysoline 50Mg] 50 mg PO TID 06/03/22 [History] Ranolazine 500 MG [Ranexa 500 MG] 500 mg PO BID 06/03/22 [History] Rivaroxaban [Xarelto] 20 mg PO DAILY 06/03/22 [History] Rivaroxaban [Xarelto] 20 mg PO DAILY 06/03/22 [History] Saccharomyces Boulardii [Florastor] 250 mg PO BID 06/03/22 [History] Sitagliptin Phosphate [Januvia] 100 mg PO DAILY 06/03/22 [History] azaTHIOprine [Azathioprine] 50 mg PO BID 06/03/22 [History] carvediloL [Carvedilol] 25 mg PO BID 06/03/22 [History] lisinopriL [Zestril] 2.5 mg PO DAILY 06/03/22 [History] Hx Tetanus, Diphtheria Vaccination/Date Given: No (unknown) Hx Influenza Vaccination/Date Given: No Hx Pneumococcal Vaccination/Date Given: No Travel Risk - International Travel Have you traveled outside of the country in past 3 weeks: No - Coronavirus Screening Are you exhibiting any of the following symptoms?: Yes Symptoms: Cough: New Onset, Vomiting/Diarrhea, Headaches/Body Aches/Fatigue Close contact with a COVID-19 positive Pt in past 14-21 Days: No - Vaccine Status Have you recieved a Covid-19 vaccination: No - Review of Systems Constitutional: No Symptoms Eyes: No Symptoms Ears, Nose, & Throat: No Symptoms Respiratory: Cough, No Dyspnea, No Wheezing Cardiac: No Symptoms, No Chest Pain Abdominal/Gastrointestinal: Nausea, Vomiting, No Abdominal Pain, No Diarrhea, No Constipation Genitourinary Symptoms: No Symptoms Musculoskeletal: Arthralgias, Myalgias Skin: No Symptoms Neurological: No Symptoms Psychological: No Symptoms Endocrine: No Symptoms Hematologic/Lymphatic: No Symptoms Immunological/Allergic: No Symptoms All Other Systems: Reviewed and Negative - Past Medical History Pertinent Past Medical History: Yes Neurological History: Migraines, Peripheral Neuropathy ENT History: Cataracts Cardiac History: Coronary Artery Disease, High Cholesterol, Hypertension, Myocardial Infarction (SD) Respiratory History: Asthma, Bronchitis, CHF, COPD, Sleep Apnea Endocrine Medical History: Diabetes Type II Musculoskeletal History: Arthritis, Degenerative Disk Disease, Fibromyalgia, Osteoarthritis GI Medical History: Crohns Disease, Diverticulitis, GERD, Irritable Bowel History: No Pertinent History Psycho-Social History: Anxiety, Depression Female Reproductive Disorders: No Pertinent History Other Medical History: HX UTI, HX Yeast Infection, Neuropathy, degenerative joint disease - Past Surgical History Past Surgical History: Yes Neuro Surgical History: No Pertinent History Cardiac: Cardiac Catheterization Respiratory: No Pertinent History Gastrointestinal: No Pertinent History Genitourinary: No Pertinent History Musculoskeletal: No Pertinent History Female Surgical History: Dilation & Curettage, Section, Tubal Ligation Other Surgical History: KIDNEY STONE REMOVAL, right 2nd toe amputated 2021. heart cath x3, no stents, clot removal rt thigh artery - Social History Smoking Status: Former smoker How long have you smoked: years Exposure to second hand smoke: No Alcohol Use: None Drug Use: none Patient Lives Alone: No Significant Family History: no pertinent family hx, diabetes, hypertension - Nursing Vital Signs Nursing Vital Signs: Initial Vital Signs Temperature 98.3 F 06/29/22 19:06 Pulse Rate 115 H 06/29/22 19:06 Respiratory Rate 22 06/29/22 19:06 Blood Pressure 147/70 06/29/22 19:06 O2 Sat by Pulse Oximetry 96 06/29/22 19:06 Pain Scale Pain Intensity 9 - Physical Exam General Appearance: no apparent distress, alert, anxiety, obese Eye Exam: PERRL/EOMI, eyes nml inspection Ears, Nose, Throat Exam: normal ENT inspection, moist mucous membranes Neck Exam: normal inspection, non-tender, supple, full range of motion Respiratory Exam: normal breath sounds, lungs clear, airway intact, No chest tenderness, No respiratory distress Cardiovascular Exam: tachycardia Gastrointestinal/Abdomen Exam: soft, normal bowel sounds, No tenderness Pelvic Exam: not done Rectal Exam: not done Back Exam: normal inspection, normal range of motion, No CVA tenderness, No vertebral tenderness Extremity Exam: normal inspection, normal range of motion, pelvis stable Neurologic Exam: alert, oriented x 3, cooperative, 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 tested, normal mood/affect, nml cerebellar function, nml station & gait, sensation nml Skin Exam: normal color, warm, dry Lymphatic Exam: No adenopathy SpO2 Interpretation: normal SpO2: 96 O2 Delivery: Room Air - Course Nursing assessment & vital signs reviewed: Yes Ordered Tests: Active Orders 24 hr Category Date Time Status CHEST 1 VIEW (PORTABLE) Stat Exams 06/29/22 19:17 Taken Medication Summary Discontinued Medications Generic Name Dose Route Start Last Admin Trade Name Fadia PRN Reason Stop Dose Admin Methylprednisolone Sodium 0 mg 06/29/22 20:12 06/29/22 20:20 Succinate 125 mg/ Sterile IM 06/29/22 20:13 125 mg Water 2 ml STAT ONE Administration Levofloxacin 500 mg 06/29/22 20:12 06/29/22 20:20 Levofloxacin 500 Mg Tablet PO 06/29/22 20:13 500 mg STAT ONE Administration Levofloxacin Confirm 06/29/22 20:19 Levofloxacin 500 Mg Tablet Administered 06/29/22 20:20 Dose 500 mg .ROUTE .STK-MED ONE Methylprednisolone Sodium Succinate Confirm 06/29/22 20:19 Methylprednis Sod Succ 125 Mg/2 Ml Vial Administered 06/29/22 20:20 Dose 125 mg .ROUTE .STK-MED ONE Sterile Water Confirm 06/29/22 20:18 Water For Injection,Sterile 10 Ml Vial Administered 06/29/22 20:19 Dose 10 ml IJ .STK-MED ONE Lab/Rad Data: Laboratory Results 06/29/22 Range/Units 19:30 Influenza Type A Ag NEGATIVE (NEGATIVE) Influenza Type B Ag NEGATIVE (NEGATIVE) RSV (PCR) NEGATIVE (Negative) SARS-CoV-2 (PCR) NEGATIVE (NEGATIVE) - Progress Progress: improved Air Movement: good Progress Note: 09/19/22 19:59 Chest x-ray shows no acute cardiopulmonary process. Blood Culture(s) Obtained: No Antibiotics given: Yes Counseled pt/family regarding: diagnosis, need for follow-up, rad results - Departure Departure Disposition: Home Clinical Impression: Upper respiratory infection Condition: Stable Critical Care Time: No Referrals: CALVIN HOLGUIN [Primary Care Provider] - Follow up/PCP as directed Additional Instructions: Drink plenty of fluids. Monitor your blood sugar closely while taking the prednisone. Take the antibiotics as prescribed. Follow-up with your primary c are physician tomorrow to make arranges for follow-up appointment for further evaluation and management. Prescriptions: Hydrocodone/Acetaminophen [Hydrocodone-Acetamn 7.5-325/15] 10 ml PO Q8H PRN PRN #120 ml MDD 30 ml PRN Reason: Cough Prednisone 10 mg [Deltasone 10 mg] 10 mg PO TID #12 tablet Levofloxacin [Levaquin 500 MG Tablet] 500 mg PO DAILY #7 tablet
[2022-06-29 20:09] LABS: INFLUENZA A NEGATIVE (NEGATIVE); INFLUENZA B NEGATIVE (NEGATIVE); RESPIRATORY SYNCTIAL VIRUS NEGATIVE (Negative); SARS-CoV-2 Xpert Express NEGATIVE (NEGATIVE)
[2022-06-29] MEDS ORDERED: solu-MEDROL 125 MG, Sterile H2O 10 ml 2 ML IM ONE ×2 (20:12)
[2022-06-29] MEDS ORDERED: Levofloxacin 500 MG Tablet PO ONE (20:12)
[2022-06-29] MEDS ORDERED: Sterile H2O 10 ml IJ ONE (20:18)
[2022-06-29] MEDS ORDERED: solu-MEDROL ONE (20:19)
[2022-06-29] MEDS ORDERED: Levofloxacin 500 MG Tablet ONE (20:19)
[2022-06-29] MEDS ORDERED: HYDROCODONE-ACETAMIN 2.5-108/5 ML SOLUTION PO STA (20:38)
[2022-06-29] MEDS ORDERED: HYDROCODONE-ACETAMIN 2.5-108/5 ML SOLUTION ONE (20:41)
[2022-06-29 20:56] VITALS: BP 138/70; PULSE 101
--- NOTE | 2022-06-30 08:56 | XRAY ---
Indication: Cough. Comparison: June 03, 2022 Portable chest remains slightly underinflated and clear. Heart not enlarged. Bony thorax intact again with osteopenia and degenerative changes. No new/acute findings.
== END 2022-06-29 20:55 | disposition home or self-care (01) ==
LOC: ED 19:03
DX: J06.9 Acute upper respiratory infection, unspecified (principal); R05.1 Acute cough; R51.9 Headache, unspecified; M79.10 Myalgia, unspecified site; R11.2 Nausea with vomiting, unspecified; E78.5 Hyperlipidemia, unspecified; I11.0 Hypertensive heart disease with heart failure; I50.9 Heart failure, unspecified; E11.42 Type 2 diabetes mellitus with diabetic polyneuropathy; Z79.4 Long term (current) use of insulin; Z79.891 Long term (current) use of opiate analgesic; Z79.52 Long term (current) use of systemic steroids; Z79.84 Long term (current) use of oral hypoglycemic drugs; Z79.01 Long term (current) use of anticoagulants; Z28.310 Unvaccinated for COVID-19
CPT/HCPCS: 0241U; 71045; 96372; 99283; J2930; A9270-GY

== ENCOUNTER 2022-08-15 23:10 | Inpatient (IN) | payer MEDICARE ==
[2022-08-15] MEDS ORDERED: DUONEB 0.5-3 MG/3 ml Neb IH ONE ×2 (23:39→23:56)
[2022-08-15] MEDS ORDERED: solu-MEDROL 125 MG, Sterile H2O 10 ml 2 ML IV ONE ×2 (23:39)
--- NOTE | 2022-08-15 23:49 | ERPHSYRPT ---
- History of Present Illness Time Seen by Provider: 08/15/22 23:11 Source: patient Exam Limitations: no limitations Patient Subjective Stated Complaint: pt states "Last Wednesday I fell on my back. I didn't think anything of it. On Wednesday I went to [facility] for chest pain and was admitted. I went to [facility] and was in the ICU for pneumonia and a fast heart rate. I was on a cardizem drip. I was released Wednesday. I went back to [facility] Wednesday night for shortness of breath and they sent me home. I am short of breath, I can't catch my breath." Triage Nursing Assessment: pt came into the er; pt is axo x4; c/o SOB; pt states 8/10 pain to rt back; labored breathing present; clear lung sounds in all lobes; 100% on room air; hypertensive; tachycardic; skin PDW; wound vac present to rt thigh Physician History: 62-year-old female morbidly obese with history of COPD, hypertension, hyperlipidemia, DVT on Eliquis, COPD presented in the ER with chief complaint of shortness of breath for almost 1 week. Patient reports she has been at [facility] 3 times this week and has been admitted but still having shortness of breath. Patient reports it comes and goes and have wheezing and more with activity and better with breathing treatment. She was diagnosed with pneumonia at [facility], was given antibiotic prescription but she has not picked up yet. Denies fever or chills. Timing/Duration: week(s) (1), gradual onset, worse Activities at Onset: rest Severity of Dyspnea-Max: moderate Severity of Dyspnea-Current: moderate Possible Cause: unknown cause Modifying Factors: Improves With: albuterol nebulizer. Worsens With: coughing, exertion Associated Symptoms: chest pain/discomfort, muscle spasms hands, tightness Allergies/Adverse Reactions: cyclobenzaprine HCl [From Flexeril] Allergy (Mild, Verified 08/15/22 23:14) Rash metoclopramide [From Reglan] Allergy (Mild, Verified 08/15/22 23:14) Rash Sulfa (Sulfonamide Antibiotics) [Sulfa(Sulfonamide Antibiotics)] Allergy (Mild, Verified 08/15/22 23:14) Rash adhesive Allergy (Verified 08/15/22 23:14) Rash nalbuphine HCl [From Nubain] Adverse Reaction (Intermediate, Verified 08/15/22 23:14) Stomach Cramps patient states she had stomach "burning" and that her legs felt like "rubber bands" ciprofloxacin [From Cipro] Adverse Reaction (Mild, Verified 08/15/22 23:14) Rash meperidine HCl [From Demerol] Adverse Reaction (Mild, Verified 08/15/22 23:14) Vomiting Home Medications: Duloxetine HCl 60 mg PO DAILY 03/17/16 [History] Mesalamine [Pentasa] 500 mg PO BID 03/17/16 [History] Methocarbamol [Robaxin] 1,000 mg PO QIDPRN PRN 03/17/16 [History] Omeprazole 20 MG [Prilosec 20 mg] 20 mg PO BID 03/17/16 [History] Atorvastatin Calcium 10 mg PO DAILY 01/25/18 [History] Insulin Glargine,Hum.rec.anlog [Basaglar Kwikpen U-100] 38 unit SQ HS 12/05/19 [History] Meclizine HCl 25 mg [Antivert 25 mg] 25 mg PO Q8H PRN PRN 12/05/19 [History] Insulin Aspart [Novolog] 15 unit SQ AC 08/02/20 [History] Isosorbide Mononitrate 60 mg [Imdur 60MG] 120 mg PO DAILY 12/31/20 [History] Levothyroxine Sodium 25 Mcg [Synthroid 25 Mcg] 25 mcg PO DAILY 12/31/20 [History] PARoxetine HCl [Paxil] 30 mg PO DAILY 01/18/21 [History] Aripiprazole [Abilify] 2 mg PO DAILY 06/03/22 [History] Fluticasone Propion/Salmeterol [Fluticasone-Salmeterol 250-50] 1 each IH BIDRT 06/03/22 [History] Loperamide HCl [Loperamide] 4 mg PO Q12H PRN PRN 06/03/22 [History] Magnesium Oxide 400 mg [Mag-Ox 400] 800 mg PO DAILY 06/03/22 [History] Nitroglycerin 0.4 mg Tablet [Nitrostat 0.4 MG Tablet] 0.4 mg SL Q5MIN PRN MR X 3 PRN 06/03/22 [History] Pravastatin Sodium 80 mg PO DAILY 06/03/22 [History] Primidone 50 MG [Mysoline 50Mg] 50 mg PO TID 06/03/22 [History] Ranolazine 500 MG [Ranexa 500 MG] 500 mg PO BID 06/03/22 [History] Saccharomyces Boulardii [Florastor] 250 mg PO BID 06/03/22 [History] azaTHIOprine [Azathioprine] 50 mg PO BID 06/03/22 [History] carvediloL [Carvedilol] 25 mg PO BID 06/03/22 [History] lisinopriL [Zestril] 2.5 mg PO DAILY 06/03/22 [History] Apixaban [Eliquis 5 mg Tablet] 5 mg PO BID 08/16/22 [History] Hx Tetanus, Diphtheria Vaccination/Date Given: No (unknown) Hx Influenza Vaccination/Date Given: No Hx Pneumococcal Vaccination/Date Given: No Travel Risk - International Travel Have you traveled outside of the country in past 3 weeks: No - Coronavirus Screening Are you exhibiting any of the following symptoms?: Yes Symptoms: Shortness of Breath Close contact with a COVID-19 positive Pt in past 14-21 Days: No - Vaccine Status Have you recieved a Covid-19 vaccination: No - Review of Systems Constitutional: Fatigue, Weakness Eyes: No Symptoms Ears, Nose, & Throat: No Symptoms Respiratory: Cough, Cyanosis, Dyspnea, Dyspnea on Exertion ([place]), Wheezing Cardiac: Chest Pain Abdominal/Gastrointestinal: No Symptoms Genitourinary Symptoms: No Symptoms Musculoskeletal: No Symptoms Skin: No Symptoms Neurological: No Symptoms Endocrine: No Symptoms Hematologic/Lymphatic: No Symptoms Immunological/Allergic: No Symptoms - Past Medical History Pertinent Past Medical History: Yes Neurological History: Migraines, Peripheral Neuropathy ENT History: Cataracts Cardiac History: Coronary Artery Disease, High Cholesterol, Hypertension, Myoca rdial Infarction (ID) Respiratory History: Asthma, Bronchitis, CHF, COPD, Sleep Apnea Endocrine Medical History: Diabetes Type II Musculoskeletal History: Arthritis, Degenerative Disk Disease, Fibromyalgia, Osteoarthritis GI Medical History: Crohns Disease, Diverticulitis, GERD, Irritable Bowel History: No Pertinent History Psycho-Social History: Anxiety, Depression Female Reproductive Disorders: No Pertinent History Other Medical History: HX UTI, HX Yeast Infection, Neuropathy, degenerative joint disease - Past Surgical History Past Surgical History: Yes Neuro Surgical History: No Pertinent History Cardiac: Cardiac Catheterization Respiratory: No Pertinent History Gastrointestinal: No Pertinent History Genitourinary: No Pertinent History Musculoskeletal: No Pertinent History Female Surgical History: Dilation & Curettage, Section, Tubal Ligation Other Surgical History: KIDNEY STONE REMOVAL, right 2nd toe amputated 2021. heart cath x3, no stents, clot removal rt thigh artery - Social History Smoking Status: Former smoker How long have you smoked: years Exposure to second hand smoke: No Alcohol Use: None Drug Use: none Patient Lives Alone: No Significant Family History: no pertinent family hx, diabetes, hypertension - Nursing Vital Signs Nursing Vital Signs: Initial Vital Signs Temperature 97.1 F 08/15/22 23:14 Pulse Rate 104 H 08/15/22 23:14 Respiratory Rate 38 H 08/15/22 23:14 Blood Pressure 177/113 08/15/22 23:14 O2 Sat by Pulse Oximetry 100 08/15/22 23:14 Pain Scale Pain Intensity 5 - Physical Exam General Appearance: no apparent distress, alert Eye Exam: PERRL/EOMI, eyes nml inspection Ears, Nose, Throat Exam: hearing grossly normal Neck Exam: normal inspection, full range of motion Respiratory Exam: diminished breath sounds, accessory muscle use, wheezing Cardiovascular/Chest Exam: normal heart sounds, regular rate/rhythm Abdominal/Gastrointestinal Exam: soft, normal bowel sounds, No tenderness Extremity Exam: normal range of motion, swelling (Wound VAC applied) Neurologic Exam: alert, oriented x 3, cooperative Skin Exam: normal color SpO2 Interpretation: normal SpO2: 100 O2 Delivery: Room Air - Course EKG Interpreted by Me: RATE (103), Sinus Tach, NORMAL AXIS, NORMAL INTERVALS, Q- wave, Non-specific ST Changes Ordered Tests: Active Orders 24 hr Category Date Time Status Consistent Carbohydrate Diet 1800 Calorie Diet 08/16/22 Breakfast Active CBC W DIFF AM.LAB Lab 08/17/22 05:00 Completed CMP AM.LAB Lab 08/17/22 05:00 Completed TROPONIN Q4H Lab 08/16/22 06:30 Completed Medication Summary Generic Name Dose Route Start Last Admin Trade Name Freq PRN Reason Stop Dose Admin Acetaminophen 650 mg 08/16/22 04:32 Acetaminophen 325 Mg Tablet PO 09/15/22 04:31 Q4H PRN PRN PAIN AND/OR FEVER Hydrocodone Bitart/Acetaminophen 10 ml 08/16/22 13:09 Hydrocodone/Acetaminophen 5 Ml Udcup PO 08/21/22 13:08 Q8H PRN PRN COUGH Albuterol/Ipratropium 3 ml 08/16/22 07:00 08/17/22 07:14 Ipratropium/Albuterol Sulfate 3 Ml Ampul.Neb IH 09/15/22 06:59 3 ml Q6HRT MITCH Administration Apixaban 5 mg 08/16/22 14:00 08/16/22 21:46 Apixaban 2.5 Mg Tablet PO 09/15/22 13:59 5 mg BID MITCH Administration Aripiprazole 2.5 mg 08/16/22 14:00 08/16/22 13:28 Aripiprazole 10 Mg Tablet PO 09/15/22 13:59 2.5 mg DAILY MITCH Administration Carvedilol 25 mg 08/16/22 22:00 08/16/22 21:45 Carvedilol 12.5 Mg Tablet PO 09/15/22 21:59 25 mg BID MITCH Administration Diltiazem HCl 30 mg 08/16/22 12:30 08/16/22 21:45 Diltiazem Hcl 30 Mg Tablet PO 09/15/22 12:29 30 mg QID MITCH Administration Duloxetine HCl 60 mg 08/16/22 14:00 08/16/22 13:25 Duloxetine Hcl 30 Mg Cap PO 09/15/22 13:59 60 mg DAILY MITCH Administration Insulin Glargine 38 unit 08/16/22 22:00 08/16/22 21:46 Insulin Glargine 1 Unit SQ 09/15/22 21:59 38 unit HS MITCH Administration Insulin Human Lispro 0 unit 08/16/22 04:32 08/16/22 21:46 Insulin Lispro 1 Unit SQ 09/15/22 04:31 15 unit UD PRN Administration HYPERGLYCEMIA Insulin Human Lispro 15 unit 08/16/22 16:30 08/16/22 17:44 Insulin Lispro 1 Unit SQ 09/15/22 16:29 15 unit AC MITCH Administration Isosorbide Mononitrate 120 mg 08/17/22 10:00 Isosorbide Mononitrate 60 Mg Tab PO 09/16/22 09:59 DAILY MITCH Lactobacillus Acidophilus 1 tab 08/16/22 14:00 08/16/22 21:45 Lactobacillus Acidophilus 1 Tab Tablet PO 09/15/22 13:59 1 tab BID MITCH Administration Levothyroxine Sodium 25 mcg 08/16/22 14:00 08/16/22 14:44 Levothyroxine Sodium 25 Mcg Tablet PO 09/15/22 13:59 25 mcg DAILY MITCH Administration Lisinopril 2.5 mg 08/17/22 10:00 Lisinopril 5 Mg Tablet PO 09/16/22 09:59 DAILY MITCH Loperamide HCl 4 mg 08/16/22 12:51 Loperamide Hcl 2 Mg Capsule PO 09/15/22 12:50 Q12H PRN PRN DIARRHEA Lorazepam 1 mg 08/16/22 12:18 Lorazepam 1 Mg Tablet PO 09/15/22 12:17 TID PRN PRN ANXIETY Magnesium Oxide 800 mg 08/16/22 14:00 08/16/22 13:26 Magnesium Oxide 400 Mg Tablet PO 09/15/22 13:59 800 mg DAILY MITCH Administration Meclizine HCl 25 mg 08/16/22 12:51 Meclizine Hcl 25 Mg Tablet PO 09/15/22 12:50 Q8H PRN PRN DIZZINESS Methocarbamol 1,000 mg 08/16/22 12:51 Methocarbamol 500 Mg Tablet PO 09/15/22 12:50 QIDPRN PRN PAIN Miscellaneous Information 1 each 08/16/22 14:15 Medication Intervention 1 Each Each 09/15/22 14:14 .RN TO CHECK MITCH Miscellaneous Information 1 each 08/16/22 14:15 Medication Intervention 1 Each Each 09/15/22 14:14 .RN TO CHECK MITCH Morphine Sulfate 2 mg 08/16/22 04:32 08/16/22 18:38 Morphine Sulfate 2 Mg/Ml Inj IV 08/21/22 04:31 2 mg Q4H PRN PRN Administration PAIN Nitroglycerin 0.4 mg 08/16/22 12:51 Nitroglycerin 0.4 Mg Tablet Bottle SL 09/15/22 12:50 Q5MIN PRN MR X 3 PRN CHEST PAIN Non-Formulary Medication 10 mg 08/17/22 10:00 Atorvastatin Calcium [Atorvastatin Calcium] PO 09/16/22 09:59 DAILY [facility] Non-Formulary Medication 80 mg 08/17/22 10:00 Pravastatin Sodium [Pravastatin Sodium] PO 09/16/22 09:59 DAILY MITCH Ondansetron HCl 4 mg 08/16/22 04:32 Ondansetron Hcl 4 Mg/2 Ml Vial IV 09/15/22 04:31 Q6H PRN PRN NAUSEA/VOMITING Pantoprazole Sodium 40 mg 08/16/22 22:00 08/16/22 21:46 Protonix (Pantoprazole) 40 Mg Tablet PO 09/15/22 21:59 40 mg BID MITCH Administration Paroxetine HCl 30 mg 08/16/22 14:00 08/16/22 14:43 Paroxetine Hcl 20 Mg Tablet PO 09/15/22 13:59 30 mg DAILY MITCH Administration Primidone 50 mg 08/16/22 15:00 08/16/22 21:46 Primidone 50 Mg Tablet PO 09/15/22 14:59 50 mg TID MITCH Administration Ranolazine 500 mg 08/16/22 14:00 08/16/22 21:46 Ranolazine 500 Mg Tab.Sr.12h PO 09/15/22 13:59 500 mg BID MITCH Administration Fluticasone/Salmeterol 2 puff 08/16/22 19:00 08/17/22 07:16 Fluticasone/Salmeterol 115/21 - 120 Puff Common Canister IH 09/15/22 18:59 2 puff BIDRT MITCH Administration Discontinued Medications Generic Name Dose Route Start Last Admin Trade Name Freq PRN Reason Stop Dose Admin Albuterol/Ipratropium 3 ml 08/15/22 23:39 08/16/22 00:13 Ipratropium/Albuterol Sulfate 3 Ml Ampul.Neb IH 08/15/22 23:40 3 ml STAT ONE Administration Albuterol/Ipratropium Confirm 08/15/22 23:56 Ipratropium/Albuterol Sulfate 3 Ml Ampul.Neb Administered 08/15/22 23:57 Dose 3 ml IH .STK-MED ONE Albuterol/Ipratropium Confirm 08/16/22 05:02 Ipratropium/Albuterol Sulfate 3 Ml Ampul.Neb Administered 08/16/22 05:03 Dose 3 ml IH .STK-MED ONE Carvedilol 25 mg 08/16/22 05:39 08/16/22 05:44 Carvedilol 12.5 Mg Tablet PO 08/16/22 05:40 25 mg ONCE ONE Administration Methylprednisolone Sodium 0 mg 08/15/22 23:39 08/15/22 23:58 Succinate 125 mg/ Sterile IV 08/15/22 23:40 125 mg Water 2 ml STAT ONE Administration Furosemide 40 mg 08/16/22 02:15 08/16/22 04:22 Furosemide 40 Mg/4 Ml Vial IV 08/16/22 02:16 40 mg STAT ONE Administration Furosemide Confirm 08/16/22 04:21 Furosemide 40 Mg/4 Ml Vial Administered 08/16/22 04:22 Dose 40 mg .ROUTE .STK-MED ONE Magnesium Sulfate/Dextrose 100 mls @ 100 mls/hr 08/16/22 02:30 08/16/22 04:22 Magnesium 1 Gm / 100 Ml D5w IV 08/16/22 04:29 100 mls/hr Q1H MITCH Administration Magnesium Sulfate/Dextrose Confirm 08/16/22 04:21 Magnesium 1 Gm / 100 Ml D5w Administered 08/16/22 04:22 Dose 200 mls @ ud IV .STK-MED ONE Isosorbide Mononitrate 120 mg 08/16/22 05:40 08/16/22 05:44 Isosorbide Mononitrate 60 Mg Tab PO 08/16/22 05:41 120 mg ONCE ONE Administration Lisinopril 2.5 mg 08/16/22 05:40 08/16/22 05:44 Lisinopril 5 Mg Tablet PO 08/16/22 05:41 2.5 mg ONCE ONE Administration Lorazepam 0.5 mg 08/16/22 10:34 08/16/22 10:46 Lorazepam 0.5 Mg Tablet PO 09/15/22 10:33 0.5 mg TID PRN PRN Administration ANXIETY Methylprednisolone Sodium Succinate Confirm 08/15/22 23:57 Methylprednis Sod Succ 125 Mg/2 Ml Vial Administered 08/15/22 23:58 Dose 125 mg .ROUTE .STK-MED ONE Morphine Sulfate Confirm 08/16/22 00:34 Morphine Sulfate 4 Mg/Ml Injection Administered 08/16/22 00:35 Dose 4 mg .ROUTE .STK-MED ONE Morphine Sulfate 4 mg 08/16/22 01:33 EST 08/16/22 04:12 Morphine Sulfate 4 Mg/Ml Injection IV 08/16/22 01:34 EST 4 mg STAT ONE Administration Ondansetron HCl Confirm 08/16/22 00:33 Ondansetron Hcl 4 Mg/2 Ml Vial Administered 08/16/22 00:34 Dose 4 mg .ROUTE .STK-MED ONE Ondansetron HCl Confirm 08/16/22 01:39 EST Ondansetron Hcl 4 Mg/2 Ml Vial Administered 08/16/22 01:40 EST Dose 4 mg .ROUTE .STK-MED ONE Ondansetron HCl 4 mg 08/16/22 04:12 08/16/22 04:13 Ondansetron Hcl 4 Mg/2 Ml Vial IV 08/16/22 04:13 4 mg STAT ONE Administration Pantoprazole Sodium 40 mg 08/16/22 10:00 08/16/22 17:40 Pantoprazole 40 Mg Vial IV 09/15/22 09:59 Not Given Q24H10 MITCH Sterile Water Confirm 08/15/22 23:57 Water For Injection,Sterile 10 Ml Vial Administered 08/15/22 23:58 Dose 10 ml IJ .STK-MED ONE Lab/Rad Data: Laboratory Result Diagrams 08/15/22 00:00 08/15/22 00:00 Laboratory Results 08/16/22 08/16/22 08/16/22 Range/Units 02:45 00:53 00:07 WBC (4.0-10.5) x10^3/uL RBC (4.1-5.4) x10^6/uL Hgb (12.0-16.0) g/dL Hct (35-47) % MCV (78-100) fL MCH (26-32) pg MCHC (32-36) g/dL RDW (11.5-14.0) % Plt Count (150-450) x10^3/uL MPV (7.5-11.0) fL Gran % (36.0-66.0) % Immature Gran % (Auto) (0.00-0.4) % Nucleat RBC Rel Count (0.00-0.1) % Eos # (Auto) (0-0.5) x10^3/uL Immature Gran # (Auto) (0.00-0.03) x10^3u/L Absolute Lymphs (auto) (1.0-4.6) x10^3/uL Absolute Monos (auto) (0.0-1.3) x10^3/uL Absolute Nucleated RBC (0.00-0.01) x10^3u/L Lymphocytes % (24.0-44.0) % Monocytes % (0.0-12.0) % Eosinophils % (0.00-5.0) % Basophils % (0.0-0.4) % Absolute Granulocytes (1.4-6.9) x10^3/uL Basophils # (0-0.4) x10^3/uL Sodium (137-145) mmol/L Potassium (3.5-5.1) mmol/L Chloride (98-107) mmol/L Carbon Dioxide (22-30) mmol/L Anion Gap (5-15) MEQ/L BUN (7-17) mg/dL Creatinine (0.52-1.04) mg/dL Estimated GFR ML/MIN Glucose (74-106) mg/dL Lactic Acid 1.5 (0.4-2.0) Calcium (8.4-10.2) mg/dL Magnesium (1.6-2.3) mg/dL Total Bilirubin (0.2-1.3) mg/dL AST (14-36) U/L ALT (0-35) U/L Alkaline Phosphatase (38-126) U/L Troponin I 0.015 (0.000-0.034) ng/mL NT-Pro-B Natriuret Pep (0-900) pg/mL Serum Total Protein (6.3-8.2) g/dL Albumin (3.5-5.0) g/dL Influenza Type A Ag NEGATIVE (NEGATIVE) Influenza Type B Ag NEGATIVE (NEGATIVE) RSV (PCR) NEGATIVE (Negative) SARS-CoV-2 (PCR) NEGATIVE (NEGATIVE) Slides for Path Review 08/15/22 08/15/22 08/15/22 Range/Units 00:00 00:00 00:00 WBC 11.5 H (4.0-10.5) x10^3/uL RBC 3.77 L (4.1-5.4) x10^6/uL Hgb 8.9 L (12.0-16.0) g/dL Hct 31.4 L (35-47) % MCV 83.3 (78-100) fL MCH 23.6 L (26-32) pg MCHC 28.3 L (32-36) g/dL RDW 17.2 H (11.5-14.0) % Plt Count 234 (150-450) x10^3/uL MPV 12.3 H (7.5-11.0) fL Gran % 86.2 H (36.0-66.0) % Immature Gran % (Auto) 0.4 (0.00-0.4) % Nucleat RBC Rel Count 0.0 (0.00-0.1) % Eos # (Auto) 0.26 (0-0.5) x10^3/uL Immature Gran # (Auto) 0.05 H (0.00-0.03) x10^3u/L Absolute Lymphs (auto) 0.65 L (1.0-4.6) x10^3/uL Absolute Monos (auto) 0.58 (0.0-1.3) x10^3/uL Absolute Nucleated RBC 0.00 (0.00-0.01) x10^3u/L Lymphocytes % 5.7 L (24.0-44.0) % Monocytes % 5.1 (0.0-12.0) % Eosinophils % 2.3 (0.00-5.0) % Basophils % 0.3 (0.0-0.4) % Absolute Granulocytes 9.90 H (1.4-6.9) x10^3/uL Basophils # 0.03 (0-0.4) x10^3/uL Sodium 137 (137-145) mmol/L Potassium 4.1 (3.5-5.1) mmol/L Chloride 97 L (98-107) mmol/L Carbon Dioxide 30 (22-30) mmol/L Anion Gap 13.7 (5-15) MEQ/L BUN 10 (7-17) mg/dL Creatinine 0.73 (0.52-1.04) mg/dL Estimated GFR > 60.0 ML/MIN Glucose 253 H (74-106) mg/dL Lactic Acid (0.4-2.0) Calcium 8.8 (8.4-10.2) mg/dL Magnesium 1.4 L (1.6-2.3) mg/dL Total Bilirubin 0.90 (0.2-1.3) mg/dL AST 33 (14-36) U/L ALT 33 (0-35) U/L Alkaline Phosphatase 454 H (38-126) U/L Troponin I 0.019 (0.000-0.034) ng/mL NT-Pro-B Natriuret Pep 1820 H (0-900) pg/mL Serum Total Protein 7.5 (6.3-8.2) g/dL Albumin 3.6 (3.5-5.0) g/dL Influenza Type A Ag (NEGATIVE) Influenza Type B Ag (NEGATIVE) RSV (PCR) (Negative) SARS-CoV-2 (PCR) (NEGATIVE) Slides for Path Review YES - Progress Progress: re-examined Air Movement: fair Progress Note: 08/16/22 02:17 62-year-old is evaluated for shortness of breath. She is given DuoNeb and st eroid, on reevaluation feeling mild improvement. Patient has history of PE despite being on NOACs and have obtained CTA which showed no pulmonary embolism but some pleural effusion. Work-up showed a white count of 11 and a normal lactate with mildly low magnesium of 1.4 for which she is getting replacement. She also has BNP of 1800, given a dose of Lasix. I believe patient has a combination of CHF and COPD exacerbation. We will continue with the neb treatments and IV Lasix. Discussed with Dr. Obando and patient is being admitted for observation. 08/16/22 02:18 Blood Culture(s) Obtained: Yes Antibiotics given: Yes, No Discussed with : Rachid Will see patient in: hospital (observation) Counseled pt/family regarding: lab results, diagnosis, rad results - Departure Departure Disposition: Observation Clinical Impression: COPD (chronic obstructive pulmonary disease) CHF exacerbation Qualifiers: Heart failure type: systolic Qualified Code(s): I50.23 - Acute on chronic systolic (congestive) heart failure Condition: Stable Critical Care Time: No
[2022-08-15] MEDS ORDERED: Sterile H2O 10 ml IJ ONE (23:57)
[2022-08-15] MEDS ORDERED: solu-MEDROL ONE (23:57)
[2022-08-16 00:16] LABS: Basophil (Absolute #) 0.03 x10^3/uL (0-0.4); Eosinophil % 2.3 % (0.00-5.0); Eosinophil (Absolute #) 0.26 x10^3/uL (0-0.5); Hematocrit 31.4 % (35-47); Hemoglobin 8.9 g/dL (12.0-16.0); Lymphocyte (Absolute #) 0.65 x10^3/uL (1.0-4.6); Lymphocytes % 5.7 % (24.0-44.0); Mean Cell Volume 83.3 fL (78-100); Mean Corpuscular Hemoglobin 23.6 pg (26-32); Mean Corpuscular Hgb Concent. 28.3 g/dL (32-36); Mean Platelet Volume 12.3 fL (7.5-11.0); Monocyte (Absolute #) 0.58 x10^3/uL (0.0-1.3); Monocytes % 5.1 % (0.0-12.0); Neutrophil % 86.2 % (36.0-66.0); Platelet Count 234 x10^3/uL (150-450); Red Blood Count 3.77 x10^6/uL (4.1-5.4); Red Cell Distribution Width 17.2 % (11.5-14.0); White Blood Count 11.5 x10^3/uL (4.0-10.5)
[2022-08-16] MEDS ORDERED: Zofran 4 MG/2 ML VIAL ONE ×2 (00:33→01:39)
[2022-08-16] MEDS ORDERED: MORPHINE SULFATE 4 MG INJ ONE (00:34)
[2022-08-16 00:40] LABS: ALBUMIN 3.6 g/dL (3.5-5.0); ALKALINE PHOSPHATASE 454 U/L (38-126); ANION GAP 13.7 MEQ/L (5-15); BLOOD UREA NITROGEN 10 mg/dL (7-17); CHLORIDE 97 mmol/L (98-107); Calcium 8.8 mg/dL (8.4-10.2); Carbon Dioxide 30 mmol/L (22-30); Creatinine 1 0.73 mg/dL (0.52-1.04); EST GLOMERULAR FILTRATION RATE > 60.0 ML/MIN; Glucose 253 mg/dL (74-106); MAGNESIUM 1.4 mg/dL (1.6-2.3); NT PRO BNP 1820 pg/mL (0-900); Potassium 4.1 mmol/L (3.5-5.1); SGOT/AST 33 U/L (14-36); SGPT/ALT 33 U/L (0-35); SODIUM 137 mmol/L (137-145); Total Protein 7.5 g/dL (6.3-8.2)
[2022-08-16] MEDS ORDERED: MORPHINE SULFATE 4 MG INJ IV ONE (01:33)
[2022-08-16 01:37] LABS: INFLUENZA A NEGATIVE (NEGATIVE); INFLUENZA B NEGATIVE (NEGATIVE); RESPIRATORY SYNCTIAL VIRUS NEGATIVE (Negative); SARS-CoV-2 Xpert Express NEGATIVE (NEGATIVE)
[2022-08-16] MEDS ORDERED: Lasix 40 MG/4 ML IV ONE (02:15)
[2022-08-16 04:06] LABS: Slide Review 1 YES
[2022-08-16] MEDS ORDERED: Zofran 4 MG/2 ML VIAL IV ONE (04:12)
[2022-08-16] MEDS ORDERED: Magnesium 1 Gm / 100 Ml D5W*** 200 ML IV ONE (04:21)
[2022-08-16] MEDS ORDERED: Lasix 40 MG/4 ML ONE (04:21)
[2022-08-16] MEDS: Magnesium 1 Gm / 100 Ml D5W*** 100 ML IV SCH (04:22)
[2022-08-16] MEDS ORDERED: TYLENOL 325 MG PO PRN (04:32)
[2022-08-16] MEDS ORDERED: Zofran 4 MG/2 ML VIAL IV PRN (04:32)
[2022-08-16] MEDS ORDERED: DUONEB 0.5-3 MG/3 ml Neb IH ONE (05:02)
[2022-08-16] MEDS ORDERED: COREG 12.5 MG PO ONE (05:39)
[2022-08-16] MEDS ORDERED: Imdur 60MG PO ONE (05:40)
[2022-08-16] MEDS ORDERED: Zestril 5 MG PO ONE (05:40)
[2022-08-16] MEDS: DUONEB 0.5-3 MG/3 ml Neb IH SCH ×3 (05:40→18:35)
[2022-08-16] MEDS: HUMALOG SQ PRN ×3 (08:20→21:46)
--- NOTE | 2022-08-16 09:19 | XRAY ---
Indication: Short of breath. Pulmonary embolus. Multiple contiguous axial images obtained through the chest using 100 cc Isovue-370 contrast and PE protocol. Comparison: June 03, 2022. Good opacification of the pulmonary arteries to include the lobar and segmental branches. No pulmonary embolus. Heart is again borderline enlarged. Aorta is again normal in course and caliber. No pathologic mediastinal/hilar lymphadenopathy. Lungs demonstrates new mild right lower lobe subsegmental atelectasis with tiny effusion. Left lung demonstrates minimal dependent atelectasis. No suspicious pulmonary mass/nodule. Again chronic right hemidiaphragm elevation. Bony thorax intact again with minimal degenerative changes throughout the spine. Limited upper abdomen again images mild fatty liver. Impression: 1. Continued negative pulmonary embolus. 2. New right lower lobe subsegmental atelectasis and tiny effusion. 3. Again right hemidiaphragm elevation, degenerative spondylosis, and fatty liver. Comment: Preliminary interpretation made by C. No critical discrepancy.
[2022-08-16] MEDS ORDERED: PROTONIX 40 MG IV IV SCH (10:00)
[2022-08-16] MEDS ORDERED: Ativan 0.5 MG PO PRN ×2 (10:34→12:02)
[2022-08-16] MEDS ORDERED: HYDROCODONE PO PRN (12:51)
[2022-08-16] MEDS ORDERED: IMODIUM 2 MG PO PRN (12:51)
[2022-08-16] MEDS ORDERED: SOLU PO PRN (12:51)
[2022-08-16] MEDS ORDERED: ACETAMINOPHEN PO PRN (12:51)
[2022-08-16] MEDS ORDERED: ANTIVERT 25 MG PO PRN (12:51)
[2022-08-16] MEDS ORDERED: Nitrostat 0.4 MG Tablet SL PRN (12:51)
[2022-08-16] MEDS ORDERED: [UNRECOGNIZED DRUG - OTHER] PO PRN (12:51)
[2022-08-16] MEDS: MORPHINE SULFATE 2 MG INJ IV PRN ×2 (13:10→18:38)
[2022-08-16] MEDS: Cardizem 30 MG PO SCH ×4 (13:10→21:45)
[2022-08-16] MEDS: Cymbalta 30 MG Capsule PO SCH (13:25)
[2022-08-16] MEDS: ELIQUIS 2.5 MG TABLET PO SCH ×2 (13:25→21:46)
[2022-08-16] MEDS: MAG-OX 400 PO SCH (13:26)
[2022-08-16] MEDS: Abilify 10 MG PO SCH (13:28)
[2022-08-16] MEDS ORDERED: MEDICATION INTERVENTION MC SCH ×2 (14:15)
--- NOTE | 2022-08-16 14:34 | PCM.HP ---
History of Present Illness - Chief Complaint Chief Complaint: CHF, COPD History of Present Illness: is a 62 year old female pt of Dr. Holguin with morbid obesity, afib, COPD, HTN, hyperlipidemia, DVT (on Eliquis), DM (A1c 9.37 in May), and ulcerative colitis who was admitted through ER with CHF exacerbation and COPD exacerbation. She fell 8d ago and landed on her back - was off balance and pre-syncopal. Two days later she went to [facility] and was admitted for CP - states her troponins were normal and she left the next day (Wednesday). Two days later, she was admitted to [facility] ICU for PNA and afib with RVR (pt endorses being on cardizem drip). Was released the next day. Yesterday she was more SOB with 8/10 pain to her R back and was brought to [facility] ER by private car. Was 100% on RA, hypertensive tachycardic. Had wound vac to R thigh. Was wheezing with activity and better with nebs. Turns out she never picked up her abx rx from [facility]. She tells me she feels a little better today. Increasingly SOB with any exertion. In the night I was called for tachycardia/afib (HR in the 140s) - she had missed several days of carvedilol (takes 25 po BID) so that was restarted. She says 2-3 wks have seen her SOb and tachycardic. She was in [employer] about 2 weeks ago and felt ok when she left. Wound R thigh is from Dr. Santana's surgery, 05/17/22, removing a clot from an artery. Last dressing change last Sat. Pt states she's been in and out of [facility], and they are supposed to get her into [facility]. She and her family are unable to care for her at home. - Review of Systems Constitutional: Chills Ears, Nose, & Throat: Other (chronic rhinorrhea) Respiratory: Short Of Breath Cardiac: Edema (intermittent LE edema if sitting), Palpitations Abdominal/Gastrointestinal: Abdominal Pain (with eating), Hematochezia (intermittent) Musculoskeletal: Fall, Injury (R thigh) Neurological: Other (off balance with fall) Psychological: Anxiety All Other Systems: Reviewed and Negative Medications & Allergies Home Medications: Home Medication List Duloxetine HCl 60 mg PO DAILY 03/17/16 [History Confirmed 08/16/22] Mesalamine [Pentasa] 500 mg PO BID 03/17/16 [History Confirmed 08/16/22] Methocarbamol [Robaxin] 1,000 mg PO QIDPRN PRN 03/17/16 [History Confirmed 08/16/22] Omeprazole 20 MG [Prilosec 20 mg] 20 mg PO BID 03/17/16 [History Confirmed 08/16/22] Atorvastatin Calcium 10 mg PO DAILY 01/25/18 [History Confirmed 08/16/22] Insulin Glargine,Hum.rec.anlog [Basaglar Kwikpen U-100] 38 unit SQ HS 12/05/19 [History Confirmed 08/16/22] Meclizine HCl 25 mg [Antivert 25 mg] 25 mg PO Q8H PRN PRN 12/05/19 [History Confirmed 08/16/22] Insulin Aspart [Novolog] 15 unit SQ AC 08/02/20 [History Confirmed 08/16/22] Isosorbide Mononitrate 60 mg [Imdur 60MG] 120 mg PO DAILY 12/31/20 [History Confirmed 08/16/22] Levothyroxine Sodium 25 Mcg [Synthroid 25 Mcg] 25 mcg PO DAILY 12/31/20 [History Confirmed 08/16/22] PARoxetine HCl [Paxil] 30 mg PO DAILY 01/18/21 [History Confirmed 08/16/22] Aripiprazole [Abilify] 2 mg PO DAILY 06/03/22 [History Confirmed 08/16/22] Fluticasone Propion/Salmeterol [Fluticasone-Salmeterol 250-50] 1 each IH BIDRT 06/03/22 [History Confirmed 08/16/22] Loperamide HCl [Loperamide] 4 mg PO Q12H PRN PRN 06/03/22 [History Confirmed 08/16/22] Magnesium Oxide 400 mg [Mag-Ox 400] 800 mg PO DAILY 06/03/22 [History Conf irmed 08/16/22] Nitroglycerin 0.4 mg Tablet [Nitrostat 0.4 MG Tablet] 0.4 mg SL Q5MIN PRN MR X 3 PRN 06/03/22 [History Confirmed 08/16/22] Pravastatin Sodium 80 mg PO DAILY 06/03/22 [History Confirmed 08/16/22] Primidone 50 MG [Mysoline 50Mg] 50 mg PO TID 06/03/22 [History Confirmed 08/16/22] Ranolazine 500 MG [Ranexa 500 MG] 500 mg PO BID 06/03/22 [History Confirmed 08/16/22] Saccharomyces Boulardii [Florastor] 250 mg PO BID 06/03/22 [History Confirmed 08/16/22] azaTHIOprine [Azathioprine] 50 mg PO BID 06/03/22 [History Confirmed 08/16/22] carvediloL [Carvedilol] 25 mg PO BID 06/03/22 [History Confirmed 08/16/22] lisinopriL [Zestril] 2.5 mg PO DAILY 06/03/22 [History Confirmed 08/16/22] Hydrocodone/Acetaminophen [Hydrocodone-Acetamn 7.5-325/15] 10 ml PO Q8H PRN PRN #120 ml MDD 30 ml 06/29/22 [Rx Confirmed 08/16/22] Apixaban [Eliquis 5 mg Tablet] 5 mg PO BID 08/16/22 [History Confirmed 08/16/22] Allergies/Adverse Reactions: Allergies Allergy/AdvReac Type Severity Reaction Status Date / Time cyclobenzaprine HCl Allergy Mild Rash Verified 08/15/22 23:14 [From Flexeril] metoclopramide [From Reglan] Allergy Mild Rash Verified 08/15/22 23:14 Sulfa (Sulfonamide Allergy Mild Rash Verified 08/15/22 23:14 Antibiotics) [Sulfa(Sulfonamide Antibiotics)] adhesive Allergy Rash Verified 08/15/22 23:14 nalbuphine HCl [From Nubain] AdvReac Intermediate Stomach Verified 08/15/22 23:14 Cramps ciprofloxacin [From Cipro] AdvReac Mild Rash Verified 08/15/22 23:14 meperidine HCl [From Demerol] AdvReac Mild Vomiting Verified 08/15/22 23:14 - Past Medical History Past Medical History: Yes Neurological History: Migraines, Peripheral Neuropathy ENT History: Cataracts Cardiac History: Coronary Artery Disease, High Cholesterol, Hypertension, Myocardial Infarction ([place]), Other Respiratory History: Asthma, Bronchitis, CHF, COPD, Sleep Apnea Endocrine Medical History: Diabetes Type II Musculoskelatal History: Arthritis, Degenerative Disk Disease, Fibromyalgia, Osteoarthritis GI Medical History: Crohns Disease, Diverticulitis, GERD, Irritable Bowel History: No Pertinent History Pyscho-Social History: Anxiety, Depression Reproductive Disorders: No Pertinent History Comment: HX UTI, HX Yeast Infection, Neuropathy, degenerative joint disease, A Fib - Female History Are you now?: No - Past Surgical History Past Surgical History: Yes Neuro Surgical History: No Pertinent History Cardiac History: Cardiac Catheterization Respiratory Surgery: No Pertinent History GI Surgical History: No Pertinent History Genitourinary Surgical Hx: No Pertinent History Musculskeletal Surgical Hx: No Pertinent History Female Surgical History: Dilation & Curettage, Section, Tubal Ligation Other Surgical History: KIDNEY STONE REMOVAL, right 2nd toe amputated 2021. heart cath x3, no stents, clot removal rt thigh artery - Social History Smoking Status: Former smoker How long have you smoked: years Exposure to second hand smoke: No Alcohol: None Drug Use: none Significant Family History: no pertinent family hx, diabetes, hypertension - Physical Exam Vital Signs: Vital Signs - 24 hr Temp Pulse Resp BP Pulse Ox 08/16/22 12:00 97.0 F 124 H 18 117/70 97 08/16/22 08:00 97.1 F 144 H 16 104/64 98 08/16/22 05:46 97.5 F 141 H 28 H 204/103 93 L 08/16/22 05:40 137 H 38 H 97 08/16/22 04:00 100 H 30 H 166/98 95 08/16/22 03:00 99 H 26 H 188/76 96 08/16/22 02:28 100 08/16/22 01:00 EST 95 H 194/90 96 08/16/22 01:00 EDT 96 H 189/100 98 08/16/22 00:13 100 H 39 H 96 08/16/22 00:11 99 H 188/100 97 08/15/22 23:14 97.1 F 104 H 38 H 177/113 100 General Appearance: no apparent distress, obese Neurologic Exam: oriented x 3, cooperative Eye Exam: eyes nml inspection Ears, Nose, Throat Exam: moist mucous membranes Neck Exam: normal inspection Respiratory Exam: normal breath sounds, lungs clear, No crackles/rales, No rhonchi, No wheezing Cardiovascular Exam: tachycardia, irregular, No murmur Gastrointestinal/Abdomen Exam: soft, normal bowel sounds, No tenderness, No distention, No mass, No guarding, No rebound Back Exam: normal inspection, No rash Extremity Exam: swelling (nonpitting edema bilat LE), other (wound R mid thigh with wound vac present, no surrounding erythema) Skin Exam: normal color, warm, dry, No rash Wound Assessment: Skin/Wound Assessment Wound/Incision Assessment Start: 08/16/22 06:10 Text: Status: Active Freq: Q6H Protocol: Document 08/16/22 08:00 AR (Rec: 08/16/22 08:35 AR [id number]) Wound/Incision Assessment Right Anterior Thigh Wound Assessment Shift Assessment Comment WOUND VAC IN PLACE Results - Labs Lab/Micro Results: Lab Results-Last 24 Hours 08/15/22 08/15/22 08/15/22 Range/Units 00:00 00:00 00:00 WBC 11.5 H (4.0-10.5) x10^3/uL RBC 3.77 L (4.1-5.4) x10^6/uL Hgb 8.9 L (12.0-16.0) g/dL Hct 31.4 L (35-47) % MCV 83.3 (78-100) fL MCH 23.6 L (26-32) pg MCHC 28.3 L (32-36) g/dL RDW 17.2 H (11.5-14.0) % Plt Count 234 (150-450) x10^3/uL MPV 12.3 H (7.5-11.0) fL Gran % 86.2 H (36.0-66.0) % Immature Gran % (Auto) 0.4 (0.00-0.4) % Nucleat RBC Rel Count 0.0 (0.00-0.1) % Eos # (Auto) 0.26 (0-0.5) x10^3/uL Immature Gran # (Auto) 0.05 H (0.00-0.03) x10^3u/L Absolute Lymphs (auto) 0.65 L (1.0-4.6) x10^3/uL Absolute Monos (auto) 0.58 (0.0-1.3) x10^3/uL Absolute Nucleated RBC 0.00 (0.00-0.01) x10^3u/L Lymphocytes % 5.7 L (24.0-44.0) % Monocytes % 5.1 (0.0-12.0) % Eosinophils % 2.3 (0.00-5.0) % Basophils % 0.3 (0.0-0.4) % Absolute Granulocytes 9.90 H (1.4-6.9) x10^3/uL Basophils # 0.03 (0-0.4) x10^3/uL Sodium 137 (137-145) mmol/L Potassium 4.1 (3.5-5.1) mmol/L Chloride 97 L (98-107) mmol/L Carbon Dioxide 30 (22-30) mmol/L Anion Gap 13.7 (5-15) MEQ/L BUN 10 (7-17) mg/dL Creatinine 0.73 (0.52-1.04) mg/dL Estimated GFR > 60.0 ML/MIN Glucose 253 H (74-106) mg/dL POC Glucometer (74 to 106) mg/dL Lactic Acid (0.4-2.0) Calcium 8.8 (8.4-10.2) mg/dL Magnesium 1.4 L (1.6-2.3) mg/dL Total Bilirubin 0.90 (0.2-1.3) mg/dL AST 33 (14-36) U/L ALT 33 (0-35) U/L Alkaline Phosphatase 454 H (38-126) U/L Troponin I 0.019 (0.000-0.034) ng/mL NT-Pro-B Natriuret Pep 1820 H (0-900) pg/mL Serum Total Protein 7.5 (6.3-8.2) g/dL Albumin 3.6 (3.5-5.0) g/dL Procalcitonin (0.030-0.080) ng/mL Influenza Type A Ag (NEGATIVE) Influenza Type B Ag (NEGATIVE) RSV (PCR) (Negative) SARS-CoV-2 (PCR) (NEGATIVE) Slides for Path Review YES 08/16/22 08/16/22 08/16/22 Range/Units 00:07 00:53 02:45 WBC (4.0-10.5) x10^3/uL RBC (4.1-5.4) x10^6/uL Hgb (12.0-16.0) g/dL Hct (35-47) % MCV (78-100) fL MCH (26-32) pg MCHC (32-36) g/dL RDW (11.5-14.0) % Plt Count (150-450) x10^3/uL MPV (7.5-11.0) fL Gran % (36.0-66.0) % Immature Gran % (Auto) (0.00-0.4) % Nucleat RBC Rel Count (0.00-0.1) % Eos # (Auto) (0-0.5) x10^3/uL Immature Gran # (Auto) (0.00-0.03) x10^3u/L Absolute Lymphs (auto) (1.0-4.6) x10^3/uL Absolute Monos (auto) (0.0-1.3) x10^3/uL Absolute Nucleated RBC (0.00-0.01) x10^3u/L Lymphocytes % (24.0-44.0) % Monocytes % (0.0-12.0) % Eosinophils % (0.00-5.0) % Basophils % (0.0-0.4) % Absolute Granulocytes (1.4-6.9) x10^3/uL Basophils # (0-0.4) x10^3/uL Sodium (137-145) mmol/L Potassium (3.5-5.1) mmol/L Chloride (98-107) mmol/L Carbon Dioxide (22-30) mmol/L Anion Gap (5-15) MEQ/L BUN (7-17) mg/dL Creatinine (0.52-1.04) mg/dL Estimated GFR ML/MIN Glucose (74-106) mg/dL POC Glucometer (74 to 106) mg/dL Lactic Acid 1.5 (0.4-2.0) Calcium (8.4-10.2) mg/dL Magnesium (1.6-2.3) mg/dL Total Bilirubin (0.2-1.3) mg/dL AST (14-36) U/L ALT (0-35) U/L Alkaline Phosphatase (38-126) U/L Troponin I 0.015 (0.000-0.034) ng/mL NT-Pro-B Natriuret Pep (0-900) pg/mL Serum Total Protein (6.3-8.2) g/dL Albumin (3.5-5.0) g/dL Procalcitonin (0.030-0.080) ng/mL Influenza Type A Ag NEGATIVE (NEGATIVE) Influenza Type B Ag NEGATIVE (NEGATIVE) RSV (PCR) NEGATIVE (Negative) SARS-CoV-2 (PCR) NEGATIVE (NEGATIVE) Slides for Path Review 08/16/22 08/16/22 08/16/22 Range/Units 06:30 06:30 07:08 WBC (4.0-10.5) x10^3/uL RBC (4.1-5.4) x10^6/uL Hgb (12.0-16.0) g/dL Hct (35-47) % MCV (78-100) fL MCH (26-32) pg MCHC (32-36) g/dL RDW (11.5-14.0) % Plt Count (150-450) x10^3/uL MPV (7.5-11.0) fL Gran % (36.0-66.0) % Immature Gran % (Auto) (0.00-0.4) % Nucleat RBC Rel Count (0.00-0.1) % Eos # (Auto) (0-0.5) x10^3/uL Immature Gran # (Auto) (0.00-0.03) x10^3u/L Absolute Lymphs (auto) (1.0-4.6) x10^3/uL Absolute Monos (auto) (0.0-1.3) x10^3/uL Absolute Nucleated RBC (0.00-0.01) x10^3u/L Lymphocytes % (24.0-44.0) % Monocytes % (0.0-12.0) % Eosinophils % (0.00-5.0) % Basophils % (0.0-0.4) % Absolute Granulocytes (1.4-6.9) x10^3/uL Basophils # (0-0.4) x10^3/uL Sodium (137-145) mmol/L Potassium (3.5-5.1) mmol/L Chloride (98-107) mmol/L Carbon Dioxide (22-30) mmol/L Anion Gap (5-15) MEQ/L BUN (7-17) mg/dL Creatinine (0.52-1.04) mg/dL Estimated GFR ML/MIN Glucose (74-106) mg/dL POC Glucometer 421 H (74 to 106) mg/dL Lactic Acid (0.4-2.0) Calcium (8.4-10.2) mg/dL Magnesium (1.6-2.3) mg/dL Total Bilirubin (0.2-1.3) mg/dL AST (14-36) U/L ALT (0-35) U/L Alkaline Phosphatase (38-126) U/L Troponin I 0.013 (0.000-0.034) ng/mL NT-Pro-B Natriuret Pep (0-900) pg/mL Serum Total Protein (6.3-8.2) g/dL Albumin (3.5-5.0) g/dL Procalcitonin 0.156 H (0.030-0.080) ng/mL Influenza Type A Ag (NEGATIVE) Influenza Type B Ag (NEGATIVE) RSV (PCR) (Negative) SARS-CoV-2 (PCR) (NEGATIVE) Slides for Path Review 08/16/22 08/16/22 Range/Units 12:06 12:14 WBC (4.0-10.5) x10^3/uL RBC (4.1-5.4) x10^6/uL Hgb (12.0-16.0) g/dL Hct (35-47) % MCV (78-100) fL MCH (26-32) pg MCHC (32-36) g/dL RDW (11.5-14.0) % Plt Count (150-450) x10^3/uL MPV (7.5-11.0) fL Gran % (36.0-66.0) % Immature Gran % (Auto) (0.00-0.4) % Nucleat RBC Rel Count (0.00-0.1) % Eos # (Auto) (0-0.5) x10^3/uL Immature Gran # (Auto) (0.00-0.03) x10^3u/L Absolute Lymphs (auto) (1.0-4.6) x10^3/uL Absolute Monos (auto) (0.0-1.3) x10^3/uL Absolute Nucleated RBC (0.00-0.01) x10^3u/L Lymphocytes % (24.0-44.0) % Monocytes % (0.0-12.0) % Eosinophils % (0.00-5.0) % Basophils % (0.0-0.4) % Absolute Granulocytes (1.4-6.9) x10^3/uL Basophils # (0-0.4) x10^3/uL Sodium (137-145) mmol/L Potassium (3.5-5.1) mmol/L Chloride (98-107) mmol/L Carbon Dioxide (22-30) mmol/L Anion Gap (5-15) MEQ/L BUN (7-17) mg/dL Creatinine (0.52-1.04) mg/dL Estimated GFR ML/MIN Glucose (74-106) mg/dL POC Glucometer 518 H* 478 H (74 to 106) mg/dL Lactic Acid (0.4-2.0) Calcium (8.4-10.2) mg/dL Magnesium (1.6-2.3) mg/dL Total Bilirubin (0.2-1.3) mg/dL AST (14-36) U/L ALT (0-35) U/L Alkaline Phosphatase (38-126) U/L Troponin I (0.000-0.034) ng/mL NT-Pro-B Natriuret Pep (0-900) pg/mL Serum Total Protein (6.3-8.2) g/dL Albumin (3.5-5.0) g/dL Procalcitonin (0.030-0.080) ng/mL Influenza Type A Ag (NEGATIVE) Influenza Type B Ag (NEGATIVE) RSV (PCR) (Negative) SARS-CoV-2 (PCR) (NEGATIVE) Slides for Path Review Accuchecks Date 08/16/22 Date 08/16/22 Time 12:05 - Radiology Impressions Radiology Exams & Impressions: Radiology Procedures Category Date Time Status CHEST WITH CONTRAST [CT] Stat Exams 08/15/22 23:40 Completed - Other Procedures and Tests Respiratory Therapy 08/16/22 01:05 Respiratory Therapy Assessment DAILY 08/16/22 04:32 Oxygen Nasal Cannula 2 lpm Assessment/Plan (1) Atrial fibrillation with RVR Current Visit: Yes Status: Acute Assessment & Plan: Her BP was initially high, then dropped to 104 systolic. Recheck of BP 117/70. HR 124. Has restarted home meds. Adding cardizem 30mg po QID. Code(s): I48.91 - UNSPECIFIED ATRIAL FIBRILLATION (2) COPD exacerbation Current Visit: No Status: Resolved Assessment & Plan: Had one dose 125mg solumedrol in ER. No wheezing on my exam. I think her SOB is more related to her cardiac issues (afib with RVR, causing CHF exacerbation). Code(s): J44.1 - CHRONIC OBSTRUCTIVE PULMONARY DISEASE W (ACUTE) EXACERBATION (3) CHF exacerbation Current Visit: Yes Status: Acute Qualifiers: Heart failure type: systolic Qualified Code(s): I50.23 - Acute on chronic systolic (congestive) heart failure Assessment & Plan: troponins neg x 3. Code(s): I50.9 - HEART FAILURE, UNSPECIFIED (4) Hypomagnesemia Current Visit: Yes Status: Acute Assessment & Plan: repleted. recheck in a.m. Code(s): E83.42 - HYPOMAGNESEMIA (5) Leg wound, right Current Visit: Yes Status: Acute Qualifiers: Encounter type: initial encounter Qualified Code(s): S81.801A - Unspecified open wound, right lower leg, initial encounter Assessment & Plan: Post-surgical. Wound vac. PT to evaluate/change dressing tomorrow, thank you. I did a procalcitonin and it did not indicate need for treatment definitively (<0.25) - pt thought there may have been pus in the lesion; there is no evident erythema around it, and she may have mistaken wound bed matter for pus. 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
[2022-08-16] MEDS: Acidophilus TABLET PO SCH ×2 (14:42→21:45)
[2022-08-16] MEDS: MYSOLINE 50MG PO SCH ×2 (14:42→21:46)
[2022-08-16] MEDS: Ranexa 500 MG PO SCH ×2 (14:43→21:46)
[2022-08-16] MEDS: Paxil 20 MG PO SCH (14:43)
[2022-08-16] MEDS: SYNTHROID 25 MCG PO SCH (14:44)
[2022-08-16] MEDS ORDERED: NON-FORMULARY ITEM (Insulin Aspart [Novolog] 100 UNIT/ML Vial) SQ SCH (16:30)
[2022-08-16] MEDS: HUMALOG SQ SCH (17:44)
[2022-08-16] MEDS: Advair Hfa 115/21 Common canister IH SCH (18:36)
[2022-08-16] MEDS ORDERED: FLUTICASONE-SALMETEROL 250-50 IH SCH (19:00)
[2022-08-16] MEDS: Lantus Insulin SQ SCH (21:46)
[2022-08-16] MEDS: Protonix 40MG Tablet PO SCH (21:46)
[2022-08-16] MEDS ORDERED: NON-FORMULARY ITEM (Insulin Glargine,Hum.Rec.Anlog [Basaglar Kwikpen U-100] 100 UNIT/ML In SQ SCH (22:00)
[2022-08-16] MEDS ORDERED: MESALAMINE 500 MG PO SCH (22:00)
[2022-08-16] MEDS ORDERED: SACCHAROMYCES BOULARDII 250 MG PO SCH (22:00)
[2022-08-16] MEDS ORDERED: AZATHIOPRINE 50 MG PO SCH (22:00)
[2022-08-16] MEDS ORDERED: NON-FORMULARY ITEM (Omeprazole 20 Mg [Prilosec 20 Mg] 20 MG Capsule.Dr) PO SCH (22:00)
[2022-08-16] MEDS ORDERED: NON-FORMULARY ITEM (Carvedilol [Carvedilol] 25 MG Tablet) PO SCH (22:00)
[2022-08-16] MEDS ORDERED: NON-FORMULARY ITEM (Apixaban*** [Eliquis 5 Mg Tablet***] 5 MG Tablet) PO SCH (22:00)
[2022-08-16] MEDS ORDERED: COREG 12.5 MG PO SCH (22:00)
[2022-08-17] MEDS: DUONEB 0.5-3 MG/3 ml Neb IH SCH ×4 (00:50→18:27)
[2022-08-17 05:45] LABS: Basophil (Absolute #) 0.01 x10^3/uL (0-0.4); Eosinophil % 0.1 % (0.00-5.0); Eosinophil (Absolute #) 0.01 x10^3/uL (0-0.5); Hematocrit 27.9 % (35-47); Lymphocyte (Absolute #) 0.87 x10^3/uL (1.0-4.6); Lymphocytes % 5.8 % (24.0-44.0); Mean Cell Volume 81.1 fL (78-100); Mean Corpuscular Hemoglobin 23.3 pg (26-32); Mean Corpuscular Hgb Concent. 28.7 g/dL (32-36); Mean Platelet Volume 12.6 fL (7.5-11.0); Monocyte (Absolute #) 0.62 x10^3/uL (0.0-1.3); Monocytes % 4.1 % (0.0-12.0); Neutrophil % 89.2 % (36.0-66.0); Platelet Count 277 x10^3/uL (150-450); Red Blood Count 3.44 x10^6/uL (4.1-5.4); Red Cell Distribution Width 17.1 % (11.5-14.0)
[2022-08-17 06:32] LABS: ALBUMIN 3.5 g/dL (3.5-5.0); ALKALINE PHOSPHATASE 350 U/L (38-126); ANION GAP 12.8 MEQ/L (5-15); BLOOD UREA NITROGEN 32 mg/dL (7-17); CHLORIDE 93 mmol/L (98-107); Calcium 8.4 mg/dL (8.4-10.2); Carbon Dioxide 30 mmol/L (22-30); Creatinine 1 0.98 mg/dL (0.52-1.04); EST GLOMERULAR FILTRATION RATE > 60.0 ML/MIN; Glucose 408 mg/dL (74-106); Potassium 4.7 mmol/L (3.5-5.1); SGOT/AST 18 U/L (14-36); SGPT/ALT 25 U/L (0-35); SODIUM 131 mmol/L (137-145); Total Protein 7.3 g/dL (6.3-8.2)
[2022-08-17 06:59] LABS: Slide Review 1 YES
[2022-08-17] MEDS: Advair Hfa 115/21 Common canister IH SCH ×2 (07:16→18:27)
[2022-08-17] MEDS: HUMALOG SQ SCH ×3 (07:36→18:07)
[2022-08-17] MEDS: HUMALOG SQ PRN ×3 (07:37→22:03)
--- NOTE | 2022-08-17 08:34 | PCM.NOTE ---
Date and Time: 08/17/22827 Subjective Assessment: Pt is feeling better, sob when up to bathroom but improved from before. Notes when her BP has been down in the past, that's when she's had syncope. Last syncope 8d ago, and has had chest and back pain since then Objective Exam Wound Assessment: Skin/Wound Assessment Wound/Incision Assessment Start: 08/16/22 06:10 Text: Status: Active Freq: Q6H Protocol: Document 08/17/22 02:00 RB (Rec: 08/17/22 04:59 RB [id number]) Wound/Incision Assessment Right Anterior Thigh Wound Assessment Shift Assessment Comment WOUND VAC IN PLACE OBJECTIVE DATA Vital Signs: Vital Signs - 24 hr Temp Pulse Resp BP Pulse Ox 08/17/22 07:38 97.9 F 61 16 116/78 95 08/17/22 07:24 100 08/17/22 07:18 69 20 95 08/17/22 04:00 97.5 F 60 22 102/50 93 L 08/17/22 00:50 57 L 16 91 L 08/16/22 23:30 97.0 F 84 22 114/57 94 L 08/16/22 19:48 97.3 F 97 H 24 132/66 94 L 08/16/22 18:40 102 H 18 95 08/16/22 16:00 97.0 F 105 H 20 120/59 90 L 08/16/22 12:00 97.0 F 124 H 18 117/70 97 Pain Assessment - Last Documented Pain Intensity 0 Pain Scale Used FLACC Intake and Output: Intake & Output 08/14/22 08/15/22 08/16/22 08/17/22 12:59 12:59 11:59 11:59 Intake Total 2520 Output Total 1950 Balance 570 Weight 127 kg Lab Results: Lab Results-Last 24 Hours 08/16/22 08/16/22 08/16/22 Range/Units 06:30 12:06 12:14 WBC (4.0-10.5) x10^3/uL RBC (4.1-5.4) x10^6/uL Hgb (12.0-16.0) g/dL Hct (35-47) % MCV (78-100) fL MCH (26-32) pg MCHC (32-36) g/dL RDW (11.5-14.0) % Plt Count (150-450) x10^3/uL MPV (7.5-11.0) fL Gran % (36.0-66.0) % Immature Gran % (Auto) (0.00-0.4) % Nucleat RBC Rel Count (0.00-0.1) % Eos # (Auto) (0-0.5) x10^3/uL Immature Gran # (Auto) (0.00-0.03) x10^3u/L Absolute Lymphs (auto) (1.0-4.6) x10^3/uL Absolute Monos (auto) (0.0-1.3) x10^3/uL Absolute Nucleated RBC (0.00-0.01) x10^3u/L Lymphocytes % (24.0-44.0) % Monocytes % (0.0-12.0) % Eosinophils % (0.00-5.0) % Basophils % (0.0-0.4) % Absolute Granulocytes (1.4-6.9) x10^3/uL Basophils # (0-0.4) x10^3/uL Sodium (137-145) mmol/L Potassium (3.5-5.1) mmol/L Chloride (98-107) mmol/L Carbon Dioxide (22-30) mmol/L Anion Gap (5-15) MEQ/L BUN (7-17) mg/dL Creatinine (0.52-1.04) mg/dL Estimated GFR ML/MIN Glucose (74-106) mg/dL POC Glucometer 518 H* 478 H (50 to 500) mg/dL Calcium (8.4-10.2) mg/dL Total Bilirubin (0.2-1.3) mg/dL AST (14-36) U/L ALT (0-35) U/L Alkaline Phosphatase (38-126) U/L Serum Total Protein (6.3-8.2) g/dL Albumin (3.5-5.0) g/dL Procalcitonin 0.156 H (0.030-0.080) ng/mL Slides for Path Review 08/16/22 08/16/22 08/17/22 Range/Units 16:21 21:14 05:00 WBC 15.0 H (4.0-10.5) x10^3/uL RBC 3.44 L (4.1-5.4) x10^6/uL Hgb 8.0 L (12.0-16.0) g/dL Hct 27.9 L (35-47) % MCV 81.1 (78-100) fL MCH 23.3 L (26-32) pg MCHC 28.7 L (32-36) g/dL RDW 17.1 H (11.5-14.0) % Plt Count 277 (150-450) x10^3/uL MPV 12.6 H (7.5-11.0) fL Gran % 89.2 H (36.0-66.0) % Immature Gran % (Auto) 0.7 H (0.00-0.4) % Nucleat RBC Rel Count 0.0 (0.00-0.1) % Eos # (Auto) 0.01 (0-0.5) x10^3/uL Immature Gran # (Auto) 0.10 H (0.00-0.03) x10^3u/L Absolute Lymphs (auto) 0.87 L (1.0-4.6) x10^3/uL Absolute Monos (auto) 0.62 (0.0-1.3) x10^3/uL Absolute Nucleated RBC 0.00 (0.00-0.01) x10^3u/L Lymphocytes % 5.8 L (24.0-44.0) % Monocytes % 4.1 (0.0-12.0) % Eosinophils % 0.1 (0.00-5.0) % Basophils % 0.1 (0.0-0.4) % Absolute Granulocytes 13.40 H (1.4-6.9) x10^3/uL Basophils # 0.01 (0-0.4) x10^3/uL Sodium (137-145) mmol/L Potassium (3.5-5.1) mmol/L Chloride (98-107) mmol/L Carbon Dioxide (22-30) mmol/L Anion Gap (5-15) MEQ/L BUN (7-17) mg/dL Creatinine (0.52-1.04) mg/dL Estimated GFR ML/MIN Glucose (74-106) mg/dL POC Glucometer 463 H 495 H (50 to 500) mg/dL Calcium (8.4-10.2) mg/dL Total Bilirubin (0.2-1.3) mg/dL AST (14-36) U/L ALT (0-35) U/L Alkaline Phosphatase (38-126) U/L Serum Total Protein (6.3-8.2) g/dL Albumin (3.5-5.0) g/dL Procalcitonin (0.030-0.080) ng/mL Slides for Path Review YES 08/17/22 08/17/22 Range/Units 05:00 07:27 WBC (4.0-10.5) x10^3/uL RBC (4.1-5.4) x10^6/uL Hgb (12.0-16.0) g/dL Hct (35-47) % MCV (78-100) fL MCH (26-32) pg MCHC (32-36) g/dL RDW (11.5-14.0) % Plt Count (150-450) x10^3/uL MPV (7.5-11.0) fL Gran % (36.0-66.0) % Immature Gran % (Auto) (0.00-0.4) % Nucleat RBC Rel Count (0.00-0.1) % Eos # (Auto) (0-0.5) x10^3/uL Immature Gran # (Auto) (0.00-0.03) x10^3u/L Absolute Lymphs (auto) (1.0-4.6) x10^3/uL Absolute Monos (auto) (0.0-1.3) x10^3/uL Absolute Nucleated RBC (0.00-0.01) x10^3u/L Lymphocytes % (24.0-44.0) % Monocytes % (0.0-12.0) % Eosinophils % (0.00-5.0) % Basophils % (0.0-0.4) % Absolute Granulocytes (1.4-6.9) x10^3/uL Basophils # (0-0.4) x10^3/uL Sodium 131 L (137-145) mmol/L Potassium 4.7 (3.5-5.1) mmol/L Chloride 93 L (98-107) mmol/L Carbon Dioxide 30 (22-30) mmol/L Anion Gap 12.8 (5-15) MEQ/L BUN 32 H (7-17) mg/dL Creatinine 0.98 (0.52-1.04) mg/dL Estimated GFR > 60.0 ML/MIN Glucose 408 H (74-106) mg/dL POC Glucometer 379 H (50 to 500) mg/dL Calcium 8.4 (8.4-10.2) mg/dL Total Bilirubin 0.40 (0.2-1.3) mg/dL AST 18 (14-36) U/L ALT 25 (0-35) U/L Alkaline Phosphatase 350 H (38-126) U/L Serum Total Protein 7.3 (6.3-8.2) g/dL Albumin 3.5 (3.5-5.0) g/dL Procalcitonin (0.030-0.080) ng/mL Slides for Path Review Radiology Exams: Radiology Procedures Category Date Time Status CHEST WITH CONTRAST [CT] Stat Exams 08/15/22 23:40 Completed Multi-Disciplinary Progress Notes: Multi-Disciplinary Progress Notes 08/16/22 13:00 Respiratory Note by Elvira Cleaning Pt refused duoneb neb treatment at this time. She reports no SOB at this time. Heart rate was 118, respiratory rate was 20, SpO2 was 92% on 2L and breath sounds were diminished to clear. Initialized on 08/16/22 13:00 - END OF NOTE Assessment/Plan (1) Atrial fibrillation with RVR Current Visit: Yes Status: Acute Assessment & Plan: Much better on cardizem. Decreasing her carvedilol, however, from12.5mg po BID to 6.25mg po BID because of her lower BPs. Code(s): I48.91 - UNSPECIFIED ATRIAL FIBRILLATION (2) COPD exacerbation Current Visit: No Status: Resolved Assessment & Plan: WBC are 15.0 with L shift; will start IV rocephin. Code(s): J44.1 - CHRONIC OBSTRUCTIVE PULMONARY DISEASE W (ACUTE) EXACERBATION (3) CHF exacerbation Current Visit: Yes Status: Acute Qualifiers: Heart failure type: systolic Qualified Code(s): I50.23 - Acute on chronic systolic (congestive) heart failure Code(s): I50.9 - HEART FAILURE, UNSPECIFIED (4) Hypomagnesemia Current Visit: Yes Status: Acute Code(s): E83.42 - HYPOMAGNESEMIA (5) Leg wound, right Current Visit: Yes Status: Acute Qualifiers: Encounter type: subsequent encounter Qualified Code(s): S81.801D - Unspecified open wound, right lower leg, subsequent encounter Assessment & Plan: Has wound vac. PT to eval/change dressing today. 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 Last echo 01/2021 - will repeat. May just be related to hypotension. Code(s): R55 - SYNCOPE AND COLLAPSE (8) Anemia Current Visit: Yes Status: Acute Qualifiers: Anemia type: unspecified type Qualified Code(s): D64.9 - Anemia, unspecified Assessment & Plan: With her heart dz, if Hgb < 8 would transfuse. Was 8.9 yesterday and 8.0 today. Hemoccult. Code(s): D64.9 - ANEMIA, UNSPECIFIED (9) Hyponatremia Current Visit: Yes Status: Acute Assessment & Plan: Fluid restriction to start today. Alternatively, could be related to SSRI. Not on thiazide diuretic. Code(s): E87.1 - HYPO-OSMOLALITY AND HYPONATREMIA (10) Diabetes mellitus type II, uncontrolled Current Visit: Yes Status: Chronic Qualifiers: Glycemic state: with hyperglycemia Qualified Code(s): E11.65 - Type 2 diabetes mellitus with hyperglycemia Code(s): LCI2504 -
[2022-08-17] MEDS: HYDROCODONE-ACETAMIN 2.5-108/5 ML SOLUTION PO PRN (08:57)
[2022-08-17] MEDS ORDERED: NON-FORMULARY ITEM (Atorvastatin Calcium [Atorvastatin Calcium] 10 MG Tablet) PO SCH (10:00)
[2022-08-17] MEDS ORDERED: NON-FORMULARY ITEM (Duloxetine Hcl [Duloxetine Hcl] 60 MG Capsule.Dr) PO SCH (10:00)
[2022-08-17] MEDS ORDERED: NON-FORMULARY ITEM (Lisinopril [Zestril] 2.5 MG Tablet) PO SCH (10:00)
[2022-08-17] MEDS ORDERED: NON-FORMULARY ITEM (Aripiprazole [Abilify] 2 MG Tablet) PO SCH (10:00)
[2022-08-17] MEDS ORDERED: NON-FORMULARY ITEM (Paroxetine Hcl [Paxil] 10 MG Tablet) PO SCH (10:00)
[2022-08-17] MEDS ORDERED: NON-FORMULARY ITEM (Pravastatin Sodium [Pravastatin Sodium] 80 MG Tablet) PO SCH (10:00)
[2022-08-17] MEDS: Cymbalta 30 MG Capsule PO SCH (10:31)
[2022-08-17] MEDS: Abilify 10 MG PO SCH (10:31)
[2022-08-17] MEDS: Paxil 20 MG PO SCH (10:31)
[2022-08-17] MEDS: MAG-OX 400 PO SCH (10:32)
[2022-08-17] MEDS: Coreg PO SCH ×2 (10:32→22:01)
[2022-08-17] MEDS: Zestril 5 MG PO SCH (10:32)
[2022-08-17] MEDS: Imdur 60MG PO SCH (10:32)
[2022-08-17] MEDS: MYSOLINE 50MG PO SCH ×3 (10:32→22:01)
[2022-08-17] MEDS: Cardizem CD PO SCH (10:32)
[2022-08-17] MEDS: SYNTHROID 25 MCG PO SCH (10:32)
[2022-08-17] MEDS: ELIQUIS 2.5 MG TABLET PO SCH ×2 (10:32→22:00)
[2022-08-17] MEDS: Protonix 40MG Tablet PO SCH ×2 (10:32→22:01)
[2022-08-17] MEDS: Acidophilus TABLET PO SCH ×2 (10:32→22:00)
[2022-08-17] MEDS: ROCEPHIN 1 Gm-D5w 50 ml Bag** 1 G/50 ML IVPB IV SCH (10:33)
[2022-08-17] MEDS: Ranexa 500 MG PO SCH ×2 (10:33→22:00)
--- NOTE | 2022-08-17 11:01 | XRAY ---
Indication: Syncopal episode. History atrial fibrillation. Two-dimensional sonogram and color Doppler imaging of the carotid arteries of the neck performed. Comparison: None Examination of the right carotid circulation demonstrates widely patent common carotid artery. Minimal calcified plaquing at the level of the bulb extending into the origin of the internal carotid and external arteries. PSV of the CCA is 67 cm/s. PSV of the ICA is 55 cm/s. ICA/CCA ratio is 0.8. Nonvisualization vertebral artery. Examination of the left carotid circulation demonstrates tortuous common carotid artery. Minimal calcified plaquing at the level of the bulb extending into the origin of the internal carotid and proximal external carotid arteries. Internal carotid artery is tortuous. PSV of the CCA is 106 cm/s. PSV of the ICA is 74 cm/s. ICA/CCA ratio is 0.7. Normal antegrade vertebral artery flow. Impression: Minimal arteriosclerotic plaquing bilaterally as detailed. Velocity measurements and ratios are negative for hemodynamically significant flow-limiting stenosis. Nonvisualization right vertebral artery.
[2022-08-17] MEDS: Lantus Insulin SQ SCH (22:01)
[2022-08-17] MEDS: Robaxin PO PRN (23:42)
[2022-08-17] MEDS: Ativan 1 MG PO PRN (23:43)
[2022-08-18] MEDS: DUONEB 0.5-3 MG/3 ml Neb IH SCH ×4 (01:09→19:27)
[2022-08-18 05:43] LABS: Absolute Neutrophil Ct (ANC) 6.29 x10^3/uL (1.4-6.9); Basophil (Absolute #) 0.04 x10^3/uL (0-0.4); Eosinophil % 4.6 % (0.00-5.0); Eosinophil (Absolute #) 0.37 x10^3/uL (0-0.5); Hemoglobin 8.4 g/dL (12.0-16.0); Lymphocyte (Absolute #) 0.81 x10^3/uL (1.0-4.6); Lymphocytes % 10.2 % (24.0-44.0); Mean Cell Volume 83.1 fL (78-100); Mean Corpuscular Hemoglobin 23.3 pg (26-32); Mean Platelet Volume 12.8 fL (7.5-11.0); Monocyte (Absolute #) 0.42 x10^3/uL (0.0-1.3); Monocytes % 5.3 % (0.0-12.0); Neutrophil % 78.9 % (36.0-66.0); Platelet Count 301 x10^3/uL (150-450); Red Blood Count 3.61 x10^6/uL (4.1-5.4); Red Cell Distribution Width 17.1 % (11.5-14.0)
[2022-08-18 06:11] LABS: ALBUMIN 3.5 g/dL (3.5-5.0); ALKALINE PHOSPHATASE 408 U/L (38-126); ANION GAP 10.2 MEQ/L (5-15); BLOOD UREA NITROGEN 32 mg/dL (7-17); CHLORIDE 97 mmol/L (98-107); Calcium 8.4 mg/dL (8.4-10.2); Carbon Dioxide 29 mmol/L (22-30); Creatinine 1 0.89 mg/dL (0.52-1.04); EST GLOMERULAR FILTRATION RATE > 60.0 ML/MIN; Glucose 170 mg/dL (74-106); MAGNESIUM 1.8 mg/dL (1.6-2.3); Potassium 4.1 mmol/L (3.5-5.1); SGOT/AST 65 U/L (14-36); SGPT/ALT 34 U/L (0-35); SODIUM 133 mmol/L (137-145); Total Protein 7.1 g/dL (6.3-8.2)
[2022-08-18 06:39] LABS: Slide Review 1 YES
[2022-08-18] MEDS: Advair Hfa 115/21 Common canister IH SCH ×2 (07:20→19:28)
[2022-08-18] MEDS: MORPHINE SULFATE 2 MG INJ IV PRN (07:44)
[2022-08-18] MEDS: HUMALOG SQ SCH ×3 (10:04→18:36)
[2022-08-18] MEDS: ROCEPHIN 1 Gm-D5w 50 ml Bag** 1 G/50 ML IVPB IV SCH (10:14)
[2022-08-18] MEDS: MYSOLINE 50MG PO SCH ×3 (10:15→22:05)
[2022-08-18] MEDS: MAG-OX 400 PO SCH (10:15)
[2022-08-18] MEDS: Paxil 20 MG PO SCH (10:15)
[2022-08-18] MEDS: Ranexa 500 MG PO SCH ×2 (10:15→22:05)
[2022-08-18] MEDS: Cymbalta 30 MG Capsule PO SCH (10:16)
[2022-08-18] MEDS: SYNTHROID 25 MCG PO SCH (10:16)
[2022-08-18] MEDS: Acidophilus TABLET PO SCH ×2 (10:16→22:05)
[2022-08-18] MEDS: Coreg PO SCH ×2 (10:16→22:04)
[2022-08-18] MEDS: Abilify 10 MG PO SCH (10:16)
[2022-08-18] MEDS: ELIQUIS 2.5 MG TABLET PO SCH ×2 (10:16→22:04)
[2022-08-18] MEDS: Protonix 40MG Tablet PO SCH ×2 (10:16→22:05)
[2022-08-18] MEDS: Cardizem CD PO SCH (10:16)
[2022-08-18] MEDS: Imdur 60MG PO SCH (10:18)
[2022-08-18] MEDS: Zestril 5 MG PO SCH (10:19)
[2022-08-18] MEDS: Robaxin PO PRN (10:56)
--- NOTE | 2022-08-18 11:50 | PCM.NOTE ---
Date and Time: 08/18/22 1145 Subjective Assessment: Patient c/o feeling weak and back pain chronic /worse. Is on Morphine,transition to oral pain med. Was accepted to [facility] for Rehab but Hgb 8 past 3 days with heme positive stool today. Will do CTabd/pelvis and Gen Surg consult. Patient is on Eliquis for Afib. Objective Exam General Appearance: mild distress (voices LBP) Neurologic Exam: alert, oriented x 3 Skin Exam: warm, dry, pale Wound Assessment: Skin/Wound Assessment Wound/Incision Assessment Start: 08/16/22 06:10 Text: Status: Active Freq: Q6H Protocol: Document 08/18/22 08:00 AR (Rec: 08/18/22 11:11 AR [id number]) Wound/Incision Assessment Right Anterior Thigh Wound Assessment Shift Assessment Comment PT ADDRESSING DRESSING CHANGES Respiratory Exam: diminished breath sounds (bases) Cardiovascular Exam: irregular (rate 88) Gastrointestinal/Abdomen Exam: soft (decresed BS,tender periumbilical no guarding) OBJECTIVE DATA Vital Signs: Vital Signs - 24 hr Temp Pulse Resp BP Pulse Ox 08/18/22 08:03 83 18 92 L 08/18/22 07:51 97.9 F 84 16 140/84 95 08/18/22 04:00 98.2 F 88 18 124/70 94 L 08/18/22 01:09 80 22 92 L 08/17/22 23:29 96.8 F 80 20 118/61 93 L 08/17/22 20:00 95.9 F 94 H 20 127/87 93 L 08/17/22 18:31 94 H 20 93 L 08/17/22 16:00 97.9 F 67 16 104/56 92 L 08/17/22 13:22 103 H 22 92 L 08/17/22 11:57 97.8 F 79 16 162/67 96 Pain Assessment - Last Documented Pain Intensity 9 Pain Scale Used 0-10 Pain Scale Intake and Output: Intake & Output 08/15/22 08/16/22 08/17/22 08/18/22 12:59 11:59 11:59 11:59 Intake Total 3300 1033 Output Total 1950 Balance 1350 1033 Weight 127 kg 125 kg Lab Results: Lab Results-Last 24 Hours 11/07/22 11/07/22 11/08/22 Range/Units 16:35 21:22 04:30 WBC 8.0 (4.0-10.5) x10^3/uL RBC 3.61 L (4.1-5.4) x10^6/uL Hgb 8.4 L (12.0-16.0) g/dL Hct 30.0 L (35-47) % MCV 83.1 (78-100) fL MCH 23.3 L (26-32) pg MCHC 28.0 L (32-36) g/dL RDW 17.1 H (11.5-14.0) % Plt Count 301 (150-450) x10^3/uL MPV 12.8 H (7.5-11.0) fL Gran % 78.9 H (36.0-66.0) % Immature Gran % (Auto) 0.5 H (0.00-0.4) % Nucleat RBC Rel Count 0.0 (0.00-0.1) % Eos # (Auto) 0.37 (0-0.5) x10^3/uL Immature Gran # (Auto) 0.04 H (0.00-0.03) x10^3u/L Absolute Lymphs (auto) 0.81 L (1.0-4.6) x10^3/uL Absolute Monos (auto) 0.42 (0.0-1.3) x10^3/uL Absolute Nucleated RBC 0.00 (0.00-0.01) x10^3u/L Lymphocytes % 10.2 L (24.0-44.0) % Monocytes % 5.3 (0.0-12.0) % Eosinophils % 4.6 (0.00-5.0) % Basophils % 0.5 (0.0-0.4) % Absolute Granulocytes 6.29 (1.4-6.9) x10^3/uL Basophils # 0.04 (0-0.4) x10^3/uL Sodium (137-145) mmol/L Potassium (3.5-5.1) mmol/L Chloride (98-107) mmol/L Carbon Dioxide (22-30) mmol/L Anion Gap (5-15) MEQ/L BUN (7-17) mg/dL Creatinine (0.52-1.04) mg/dL Estimated GFR ML/MIN Glucose (74-106) mg/dL POC Glucometer 148 H 271 H (74 to 106) mg/dL Calcium (8.4-10.2) mg/dL Magnesium (1.6-2.3) mg/dL Total Bilirubin (0.2-1.3) mg/dL AST (14-36) U/L ALT (0-35) U/L Alkaline Phosphatase (38-126) U/L Serum Total Protein (6.3-8.2) g/dL Albumin (3.5-5.0) g/dL Stool Occult Blood (NEGATIVE) Slides for Path Review YES 08/18/22 08/18/22 08/18/22 Range/Units 05:40 06:25 07:32 WBC (4.0-10.5) x10^3/uL RBC (4.1-5.4) x10^6/uL Hgb (12.0-16.0) g/dL Hct (35-47) % MCV (78-100) fL MCH (26-32) pg MCHC (32-36) g/dL RDW (11.5-14.0) % Plt Count (150-450) x10^3/uL MPV (7.5-11.0) fL Gran % (36.0-66.0) % Immature Gran % (Auto) (0.00-0.4) % Nucleat RBC Rel Count (0.00-0.1) % Eos # (Auto) (0-0.5) x10^3/uL Immature Gran # (Auto) (0.00-0.03) x10^3u/L Absolute Lymphs (auto) (1.0-4.6) x10^3/uL Absolute Monos (auto) (0.0-1.3) x10^3/uL Absolute Nucleated RBC (0.00-0.01) x10^3u/L Lymphocytes % (24.0-44.0) % Monocytes % (0.0-12.0) % Eosinophils % (0.00-5.0) % Basophils % (0.0-0.4) % Absolute Granulocytes (1.4-6.9) x10^3/uL Basophils # (0-0.4) x10^3/uL Sodium 133 L (137-145) mmol/L Potassium 4.1 (3.5-5.1) mmol/L Chloride 97 L (98-107) mmol/L Carbon Dioxide 29 (22-30) mmol/L Anion Gap 10.2 (5-15) MEQ/L BUN 32 H (7-17) mg/dL Creatinine 0.89 (0.52-1.04) mg/dL Estimated GFR > 60.0 ML/MIN Glucose 170 H (74-106) mg/dL POC Glucometer 143 H (74 to 106) mg/dL Calcium 8.4 (8.4-10.2) mg/dL Magnesium 1.8 (1.6-2.3) mg/dL Total Bilirubin 0.40 (0.2-1.3) mg/dL AST 65 H (14-36) U/L ALT 34 (0-35) U/L Alkaline Phosphatase 408 H (38-126) U/L Serum Total Protein 7.1 (6.3-8.2) g/dL Albumin 3.5 (3.5-5.0) g/dL Stool Occult Blood POSITIVE A (NEGATIVE) Slides for Path Review 08/18/22 Range/Units 11:42 WBC (4.0-10.5) x10^3/uL RBC (4.1-5.4) x10^6/uL Hgb (12.0-16.0) g/dL Hct (35-47) % MCV (78-100) fL MCH (26-32) pg MCHC (32-36) g/dL RDW (11.5-14.0) % Plt Count (150-450) x10^3/uL MPV (7.5-11.0) fL Gran % (36.0-66.0) % Immature Gran % (Auto) (0.00-0.4) % Nucleat RBC Rel Count (0.00-0.1) % Eos # (Auto) (0-0.5) x10^3/uL Immature Gran # (Auto) (0.00-0.03) x10^3u/L Absolute Lymphs (auto) (1.0-4.6) x10^3/uL Absolute Monos (auto) (0.0-1.3) x10^3/uL Absolute Nucleated RBC (0.00-0.01) x10^3u/L Lymphocytes % (24.0-44.0) % Monocytes % (0.0-12.0) % Eosinophils % (0.00-5.0) % Basophils % (0.0-0.4) % Absolute Granulocytes (1.4-6.9) x10^3/uL Basophils # (0-0.4) x10^3/uL Sodium (137-145) mmol/L Potassium (3.5-5.1) mmol/L Chloride (98-107) mmol/L Carbon Dioxide (22-30) mmol/L Anion Gap (5-15) MEQ/L BUN (7-17) mg/dL Creatinine (0.52-1.04) mg/dL Estimated GFR ML/MIN Glucose (74-106) mg/dL POC Glucometer 128 H (74 to 106) mg/dL Calcium (8.4-10.2) mg/dL Magnesium (1.6-2.3) mg/dL Total Bilirubin (0.2-1.3) mg/dL AST (14-36) U/L ALT (0-35) U/L Alkaline Phosphatase (38-126) U/L Serum Total Protein (6.3-8.2) g/dL Albumin (3.5-5.0) g/dL Stool Occult Blood (NEGATIVE) Slides for Path Review Radiology Exams: Radiology Procedures Category Date Time Status ABDOMEN AND PELVIS W CONTRAST [CT] Urgent Exams 08/18/22 11:37 Ordered CAROTID BILATERAL [US] Routine Exams 08/17/22 08:50 Completed ECHO W/2D AND DOPPLER [US] Routine Exams 08/17/22 08:50 Taken Multi-Disciplinary Progress Notes: Multi-Disciplinary Progress Notes 08/18/22 10:48 Case Management Note by Lyric Hauser HAS ACCEPTED PATIENT AND WILL BE READY TODAY- DR. GIBBONS, PRIMARY RN AND PATIENT AWARE Initialized on 08/18/22 10:48 - END OF NOTE 08/17/22 16:25 (created 08/18/22 10:17) Case Management Note by Cassy Garcia [facility] NURSE CALLED TO REPORT THAT PT MISSED APPOINTMENT WITH DR CROWE TODAY. ALSO, REPORTED THAT DR. CROWE DID NOT KNOW THAT PT HAD A WOUND VAC AND THAT IT WAS NOT ORDERED BY HIM. INTREPID NURSE UNSURE WHERE ORDER FOR WOUND VAC ORIGINATED FROM. Initialized on 08/18/22 10:17 - END OF NOTE 08/17/22 16:15 (created 08/18/22 08:47) Case Management Note by Cassy Garcia FROM [facility] CALLED AND REPORTED THAT THEY CAN ACCEPT PT FOR REHAB STAY. THEY WILL BE READY FOR PATIENT SOON TOMORROW, 08/18/22. Initialized on 08/18/22 08:47 - END OF NOTE 08/17/22 12:00 Case Management Note by Lyric Hauser [facility]- PATIENT GRADUATED PHYSICAL THERAPY AT THEIR FACILITY THEN DCD HOME. THEY REPORT PATIENT WAS UNCOOPERATIVE WITH THEM IN GETTING THE [employer] PROCESS COMPLETED TO GET PATIENT ON FULL MEDICAID. PATIENT REFUSED TO HAVE [employer] REGIONAL SALES MANAGER SEE HER AT THEIR FACILITY THEN ALSO REFUSED TO HAVE THE REGIONAL SALES MANAGER COME TO HER HOME. THEY REPORT PATIENT HAS MEDICARE DAYS AVAILABLE BUT WILL NOT BE TAKING BACK AT THIS TIME. S/W PATIENT- SHE IS INTERESTED AGAIN IN A REHAB STAY. PATIENT NOTIFIED THAT THIS AGAIN WOULD BE A SHORT TERM STAY PATIENT WILL LIKELY IMPROVE ENOUGH THAT THE FACILITY WILL NOT BE ABLE TO BILL MEDICARE. PATIENT NOTIFIED THAT IN ORDER TO GET CONT'D HELP SHE MUST ALLOW [employer] TO DO THE NECESSARY ASSESSMENTS IN ORDER FOR PATIENT HOPEFULLY GET FULL MEDICAID THEN SHE WOULD HAVE MORE OPTIONS FOR HOUSING HELP, ASSISTED LIVING OR HELP AT HOME SERVICES. SHE VERIFIED UNDERSTANDING. SHE WOULD LIKE REFERRAL FAXED TO [facility]. REFERRALS FAXED AT THIS TIME Initialized on 08/17/22 12:00 - END OF NOTE Assessment/Plan (1) Heme + stool Current Visit: Yes Status: Acute Assessment & Plan: CT abd pelvis and Gen surg consult possible scope.Is on Eliquis and needs to remain anticoagulated for Afib.Follow Hgb, is 8.4 today,8 on admission. (2) Afib Current Visit: Yes Status: Acute Assessment & Plan: rate controlled Code(s): I48.91 - UNSPECIFIED ATRIAL FIBRILLATION (3) Chronic back pain Current Visit: Yes Status: Chronic Assessment & Plan: stop Morphine, start Percocet Code(s): M54.9 - DORSALGIA, UNSPECIFIED; G89.29 - OTHER CHRONIC PAIN
[2022-08-18] MEDS: OXYCODONE-ACETAMINOPHEN 10-325 PO PRN ×2 (16:54→22:05)
[2022-08-18] MEDS: HUMALOG SQ PRN (22:01)
[2022-08-18] MEDS: Lantus Insulin SQ SCH (22:02)
[2022-08-18] MEDS: HYDROCODONE-ACETAMIN 2.5-108/5 ML SOLUTION PO PRN (22:09)
[2022-08-19] MEDS: DUONEB 0.5-3 MG/3 ml Neb IH SCH ×4 (01:52→19:23)
[2022-08-19] MEDS: Advair Hfa 115/21 Common canister IH SCH ×2 (06:33→19:23)
[2022-08-19 07:09] LABS: Basophil (Absolute #) 0.03 x10^3/uL (0-0.4); Eosinophil % 13.9 % (0.00-5.0); Eosinophil (Absolute #) 0.72 x10^3/uL (0-0.5); Hematocrit 29.5 % (35-47); Hemoglobin 8.3 g/dL (12.0-16.0); Lymphocyte (Absolute #) 0.64 x10^3/uL (1.0-4.6); Lymphocytes % 12.3 % (24.0-44.0); Mean Cell Volume 83.3 fL (78-100); Mean Corpuscular Hemoglobin 23.4 pg (26-32); Mean Corpuscular Hgb Concent. 28.1 g/dL (32-36); Mean Platelet Volume 11.8 fL (7.5-11.0); Monocyte (Absolute #) 0.48 x10^3/uL (0.0-1.3); Monocytes % 9.2 % (0.0-12.0); Neutrophil % 63.6 % (36.0-66.0); Platelet Count 293 x10^3/uL (150-450); Red Blood Count 3.54 x10^6/uL (4.1-5.4); Red Cell Distribution Width 17.1 % (11.5-14.0); White Blood Count 5.2 x10^3/uL (4.0-10.5)
[2022-08-19 07:15] LABS: ANION GAP 12.6 MEQ/L (5-15); BLOOD UREA NITROGEN 23 mg/dL (7-17); CHLORIDE 99 mmol/L (98-107); Calcium 8.5 mg/dL (8.4-10.2); Carbon Dioxide 29 mmol/L (22-30); Creatinine 1 0.84 mg/dL (0.52-1.04); EST GLOMERULAR FILTRATION RATE > 60.0 ML/MIN; Glucose 125 mg/dL (74-106); Potassium 4.4 mmol/L (3.5-5.1); SODIUM 137 mmol/L (137-145)
[2022-08-19] MEDS: ROCEPHIN 1 Gm-D5w 50 ml Bag** 1 G/50 ML IVPB IV SCH (08:22)
[2022-08-19] MEDS: Ranexa 500 MG PO SCH ×2 (08:23→21:49)
[2022-08-19] MEDS: Cardizem CD PO SCH (08:23)
[2022-08-19] MEDS: Cymbalta 30 MG Capsule PO SCH (08:23)
[2022-08-19] MEDS: Imdur 60MG PO SCH (08:24)
[2022-08-19] MEDS: MYSOLINE 50MG PO SCH ×3 (08:24→21:50)
[2022-08-19] MEDS: Paxil 20 MG PO SCH (08:24)
[2022-08-19] MEDS: SYNTHROID 25 MCG PO SCH (08:24)
[2022-08-19] MEDS: MAG-OX 400 PO SCH (08:24)
[2022-08-19] MEDS: Acidophilus TABLET PO SCH ×2 (08:26→21:49)
[2022-08-19] MEDS: Protonix 40MG Tablet PO SCH ×2 (08:26→21:50)
[2022-08-19] MEDS: Coreg PO SCH ×2 (08:27→21:50)
[2022-08-19] MEDS: ELIQUIS 2.5 MG TABLET PO SCH ×2 (08:27→21:49)
[2022-08-19] MEDS: Abilify 10 MG PO SCH (08:27)
[2022-08-19] MEDS: Zestril 5 MG PO SCH (08:29)
--- NOTE | 2022-08-19 08:40 | XRAY ---
Indication: Bright red blood in stool. Multiple contiguous axial images obtained through the abdomen and pelvis using total of 150 cc Isovue 370 contrast. cardiac technologist reports approximately 50 cc contrast infiltrated at left chest IV site. Patient's nurse made aware of infiltration with new right arm IV site obtained. Additional 100 cc contrast was injected. Comparison: October 03, 2021 Visualized lower chest demonstrates incompletely visualized large IV contrast infiltration left anterior chest wall. CT chest reported 2 days ago. There is mild diffuse respiration artifact throughout the exam. Noncontrasted stomach and bowel loops appear nonobstructed with normal appendix. No free fluid/air. Gallbladder demonstrates tiny stone, mild wall thickening/enhancement, and tiny pericholecystic fluid concerning for acute cholecystitis. Mild biliary tree prominence. No free fluid/air. Both kidneys enhance and excrete with stable left renal cyst. No suspicious solid renal mass, hydronephrosis, or hydroureter. Remaining liver, pancreas, spleen, adrenal glands, kidneys, ureters, bladder, and uterus are unremarkable. Again minimal scattered aortoiliac calcifications. No AAA or pathologic retroperitoneal lymphadenopathy. Osseous structures intact again with minimal degenerative changes throughout the spine. Stable small fatty left inguinal hernia. Impression: 1. Incompletely visualized left chest wall IV contrast infiltration. 2. Mild diffuse respiration artifact. 3. Tiny gallstone with abnormal gallbladder wall thickening/enhancement and pericholecystic fluid. Rule out acute cholecystitis. Sonogram may yield further information. 4. Stable left renal cyst, degenerative spondylosis, and fatty left inguinal hernia.
[2022-08-19 09:35] LABS: Slide Review 1 YES
--- NOTE | 2022-08-19 12:34 | PCM.DS ---
Discharge Summary Date of Admission: 08/16/22 14:28 Admitting Physician: LULI BARTON Consults: Consults on Case 08/18/22 11:43 Consult Surgery ROUTINE Primary Care Provider: CALVIN PALOMINO Allergies Allergies cyclobenzaprine HCl [From Flexeril] Allergy (Mild, Verified 08/15/22 23:14) Rash metoclopramide [From Reglan] Allergy (Mild, Verified 08/15/22 23:14) Rash Sulfa (Sulfonamide Antibiotics) [Sulfa(Sulfonamide Antibiotics)] Allergy (Mild, Verified 08/15/22 23:14) Rash adhesive Allergy (Verified 08/15/22 23:14) Rash nalbuphine HCl [From Nubain] Adverse Reaction (Intermediate, Verified 08/15/22 23:14) Stomach Cramps patient states she had stomach "burning" and that her legs felt like "rubber bands" ciprofloxacin [From Cipro] Adverse Reaction (Mild, Verified 08/15/22 23:14) Rash meperidine HCl [From Demerol] Adverse Reaction (Mild, Verified 08/15/22 23:14) Vomiting Hospital Summary - Hospital Course Hospital Course: is a 62 year old female pt of Dr. Palomino with morbid obesity, afib, COPD, HTN, hyperlipidemia, DVT (on Eliquis), DM (A1c 9.37 in May), and ulcerative colitis who was admitted through ER with CHF exacerbation and COPD exacerbation. troponins neg x 3. Had very high BP intially, which fell when her home meds were restarted. Has been hypoxemic and will go home on O2. Started having increased HR, up to 140s, so started on po cardizem which did control the rate. We had to decrease po carvedilol from 12.5po BID to 6.25po BID to maintain her BP, and she still runs 100s systolic. She is up out of bed by herself, says she is "a little wobbly" but does not feel she is going to fall. I urged her to ask for assistance when she is up if feeling wobbly at all. Her Hgb has been stable at just over 8.0. She does have Hx Ulcerative Colitis and has been having blood in her stool for the past year or so. Had a transfusion in Jun 2021. Is planning to start seeing DR. Xavier in for GI. CT ab/pelvis done yesterday was nonacute. Surgery is consulted, thank you. This morning her breathing is good. Does have some increased nasal drainage. Is supposed to go to [place] after being evaluated by surgery. - Vitals & Intake/Output Vital Signs: Vital Signs Temperature 97.0 F 08/19/22 11:36 Pulse Rate 83 08/19/22 11:36 Respiratory Rate 18 08/19/22 11:36 Blood Pressure 106/53 08/19/22 11:36 O2 Sat by Pulse Oximetry 93 L 08/19/22 11:36 Intake & Output: Intake & Output 08/17/22 08/18/22 08/19/22 08/20/22 11:59 11:59 11:59 11:59 Intake Total 3300 1033 780 Output Total 1950 0 Balance 1350 1033 -1270 Weight 127 kg 125 kg - Lab Result Diagrams: 08/19/22 06:55 08/19/22 06:55 Lab Results-Last 24 Hrs: Lab Results-Last 24 Hours 08/18/22 08/19/22 08/19/22 Range/Units 20:50 06:55 06:55 WBC 5.2 (4.0-10.5) x10^3/uL RBC 3.54 L (4.1-5.4) x10^6/uL Hgb 8.3 L (12.0-16.0) g/dL Hct 29.5 L (35-47) % MCV 83.3 (78-100) fL MCH 23.4 L (26-32) pg MCHC 28.1 L (32-36) g/dL RDW 17.1 H (11.5-14.0) % Plt Count 293 (150-450) x10^3/uL MPV 11.8 H (7.5-11.0) fL Gran % 63.6 (36.0-66.0) % Immature Gran % (Auto) 0.4 (0.00-0.4) % Nucleat RBC Rel Count 0.0 (0.00-0.1) % Eos # (Auto) 0.72 H (0-0.5) x10^3/uL Immature Gran # (Auto) 0.02 (0.00-0.03) x10^3u/L Absolute Lymphs (auto) 0.64 L (1.0-4.6) x10^3/uL Absolute Monos (auto) 0.48 (0.0-1.3) x10^3/uL Absolute Nucleated RBC 0.00 (0.00-0.01) x10^3u/L Lymphocytes % 12.3 L (24.0-44.0) % Monocytes % 9.2 (0.0-12.0) % Eosinophils % 13.9 H (0.00-5.0) % Basophils % 0.6 (0.0-0.4) % Absolute Granulocytes 3.30 (1.4-6.9) x10^3/uL Basophils # 0.03 (0-0.4) x10^3/uL Sodium 137 (137-145) mmol/L Potassium 4.4 (3.5-5.1) mmol/L Chloride 99 (98-107) mmol/L Carbon Dioxide 29 (22-30) mmol/L Anion Gap 12.6 (5-15) MEQ/L BUN 23 H (7-17) mg/dL Creatinine 0.84 (0.52-1.04) mg/dL Estimated GFR > 60.0 ML/MIN Glucose 125 H (74-106) mg/dL POC Glucometer 243 H (74 to 106) mg/dL Calcium 8.5 (8.4-10.2) mg/dL Slides for Path Review YES 08/19/22 08/19/22 Range/Units 07:00 11:33 WBC (4.0-10.5) x10^3/uL RBC (4.1-5.4) x10^6/uL Hgb (12.0-16.0) g/dL Hct (35-47) % MCV (78-100) fL MCH (26-32) pg MCHC (32-36) g/dL RDW (11.5-14.0) % Plt Count (150-450) x10^3/uL MPV (7.5-11.0) fL Gran % (36.0-66.0) % Immature Gran % (Auto) (0.00-0.4) % Nucleat RBC Rel Count (0.00-0.1) % Eos # (Auto) (0-0.5) x10^3/uL Immature Gran # (Auto) (0.00-0.03) x10^3u/L Absolute Lymphs (auto) (1.0-4.6) x10^3/uL Absolute Monos (auto) (0.0-1.3) x10^3/uL Absolute Nucleated RBC (0.00-0.01) x10^3u/L Lymphocytes % (24.0-44.0) % Monocytes % (0.0-12.0) % Eosinophils % (0.00-5.0) % Basophils % (0.0-0.4) % Absolute Granulocytes (1.4-6.9) x10^3/uL Basophils # (0-0.4) x10^3/uL Sodium (137-145) mmol/L Potassium (3.5-5.1) mmol/L Chloride (98-107) mmol/L Carbon Dioxide (22-30) mmol/L Anion Gap (5-15) MEQ/L BUN (7-17) mg/dL Creatinine (0.52-1.04) mg/dL Estimated GFR ML/MIN Glucose (74-106) mg/dL POC Glucometer 113 H 170 H (74 to 106) mg/dL Calcium (8.4-10.2) mg/dL Slides for Path Review Micro Results-Entire Visit: Microbiology 08/15/22 00:00 Blood Culture - Preliminary Blood NO GROWTH TO DATE 08/15/22 00:00 Blood Culture - Preliminary Blood NO GROWTH TO DATE Accuchecks Date 08/19/22 Date 08/19/22 Time 11:36 Time 07:58 - Radiology Exams Ordered Rad Exams-Entire Visit: Radiology Procedures Category Date Time Status ABDOMEN AND PELVIS W CONTRAST [CT] Urgent Exams 08/18/22 11:37 Completed - Procedures and Test Procedures and Tests throughout Hospitalization: Therapy Orders & Screens 08/16/22 01:05 Respiratory Therapy Assessment DAILY Comment: 08/16/22 04:32 Oxygen Nasal Cannula 2 lpm Comment: 08/16/22 06:10 OT Screen per Nursing Assess ONCE Comment: Protocol Order Physician Instructions: Greater than 3 points order OT Admission Screening Reason For Exam: Triggered on Admission Diagnosis: CHF, COPD Open Wound/Cellutlitis/Pressure Ulcers: Yes: current wound vac Acute Fx/ORIF/Change in wt bearing status: No Severe MUSCULOSKELETAL pain: No ADL Dysfunction: No Acute CVA w/Hemiparesis/Hemiplegia: No Decreased Functional Mobility/Strength: No Sprain/Strain: No Acute Post-op Mobility Dysfunction: No Total Points: 5 PT Screen per Nursing Assess ONCE Comment: Protocol Order Physician Instructions: Greater than 3 points order PT Admission Screenin Reason For Exam: Triggered on Admission Diagnosis: CHF, COPD Open Wound/Cellutlitis/Pressure Ulcers: Yes: current wound vac Acute Fx/ORIF/Change in wt bearing status: No Severe MUSCULOSKELETAL pain: No ADL Dysfunction: No Acute CVA w/Hemiparesis/Hemiplegia: No Decreased Functional Mobility/Strength: No Sprain/Strain: No Acute Post-op Mobility Dysfunction: No Total Points: 5 RT Screen per Nursing Assess ONCE Comment: Protocol Order Physician Instructions: Greater than 3 points order RT Admission Screen Reason For Exam: Triggered on Admission Diagnosis: CHF, COPD Diagnosis: CHF, COPD Pneumonia: No Home O2: No Asthma: Yes CHF: Yes Home CPAP/BIPAP: No Home Nebs/MDI: No Total Points: 7 08/16/22 10:35 PT Eval & Treat (MD Order) ONCE Reason for Eval:: wound vac R thigh - last changed >1 wk ago Diagnosis: CHF, COPD Discharge Exam General Appearance: no apparent distress, obese Neurologic Exam: oriented x 3, cooperative Eye Exam: eyes nml inspection Wound Assessment: Skin/Wound Assessment Wound/Incision Assessment Start: 08/16/22 06: 10 Text: Status: Active Freq: Q6H Protocol: Document 08/19/22 02:00 RB (Rec: 08/19/22 02:46 RB [id number]) Wound/Incision Assessment Right Anterior Thigh Wound Assessment Shift Assessment Wound Type Incision Dressing Status Dry & Intact Comment MEPILEX DRESSING IN PLACE CHANGED TODAY BY PT Final Diagnosis/Problem List - Final Discharge Diagnosis/Problem (1) Atrial fibrillation with RVR Current Visit: Yes Status: Resolved Assessment & Plan: Home on cardizem in addition to carvedilol. 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 May be related to BPs. Code(s): R55 - SYNCOPE AND COLLAPSE (8) Anemia Current Visit: Yes Status: Chronic Assessment & Plan: Surgery evaluating, if wants OP eval will d/c to [place] home today. Code(s): D64.9 - ANEMIA, UNSPECIFIED (9) Hyponatremia Current Visit: Yes Status: Resolved Code(s): E87.1 - HYPO-OSMOLALITY AND HYPONATREMIA (10) Muscular deconditioning Current Visit: Yes Status: Chronic Code(s): R29.898 - OTH SYMPTOMS AND SIGNS INVOLVING THE MUSCULOSKELETAL SYSTEM (11) Hypoxemia Current Visit: Yes Status: Acute Code(s): R09.02 - HYPOXEMIA - Discharge Disposition: DC TO [place] Condition: Stable Prescriptions: New Diltiazem HCl Cd [Cardizem CD ] 120 mg PO DAILY #30 cap Carvedilol [Coreg ] 6.25 mg PO BID #60 tablet Albuterol/Ipratropium 3ml Neb* [DUONEB 0.5-3 MG/3 ml Neb] 3 ml IH QID PRN #60 unit PRN Reason: shortness of breath Continue Mesalamine [Pentasa] 500 mg PO BID Omeprazole 20 MG [Prilosec 20 mg] 20 mg PO BID Methocarbamol [Robaxin] 1,000 mg PO QIDPRN PRN PRN Reason: Pain Duloxetine HCl 60 mg PO DAILY Atorvastatin Calcium 10 mg PO DAILY Insulin Glargine,Hum.rec.anlog [Basaglar Kwikpen U-100] 38 unit SQ HS Meclizine HCl 25 mg [Antivert 25 mg] 25 mg PO Q8H PRN PRN PRN Reason: Dizziness Insulin Aspart [Novolog] 15 unit SQ AC Levothyroxine Sodium 25 Mcg [Synthroid 25 Mcg] 25 mcg PO DAILY Isosorbide Mononitrate 60 mg [Imdur 60MG] 120 mg PO DAILY PARoxetine HCl [Paxil] 30 mg PO DAILY Saccharomyces Boulardii [Florastor] 250 mg PO BID Ranolazine 500 MG [Ranexa 500 MG] 500 mg PO BID Primidone 50 MG [Mysoline 50Mg] 50 mg PO TID Pravastatin Sodium 80 mg PO DAILY Nitroglycerin 0.4 mg Tablet [Nitrostat 0.4 MG Tablet] 0.4 mg SL Q5MIN PRN MR X 3 PRN PRN Reason: Chest Pain Magnesium Oxide 400 mg [Mag-Ox 400] 800 mg PO DAILY Loperamide HCl [Loperamide] 4 mg PO Q12H PRN PRN PRN Reason: Diarrhea lisinopriL [Zestril] 2.5 mg PO DAILY Fluticasone Propion/Salmeterol [Fluticasone-Salmeterol 250-50] 1 each IH BIDRT azaTHIOprine [Azathioprine] 50 mg PO BID Aripiprazole [Abilify] 2 mg PO DAILY Hydrocodone/Acetaminophen [Hydrocodone-Acetamn 7.5-325/15] 10 ml PO Q8H PRN PRN #120 ml MDD 30 ml PRN Reason: Cough Apixaban [Eliquis 5 mg Tablet] 5 mg PO BID Discontinued carvediloL [Carvedilol] 25 mg PO BID Additional Instructions: CARE HOME ORDERS: ADMIT TO SNF CARE DIABETIC DIET ACHS ACCU CHECKS 2L/NC DRESSING CHANGES THREE TIMES A WEEK AND NEEDED FOLLOWS: CLEANSE WITH STERILE WATER, DRESS WITH ALGINATE IN WOUND BED, SECURE WITH MEPILEX BORDER 6X6 SEE ATTACHED MEDLIST Follow up with: LORIE CROWE [COURTESY STAFF] - 08/24/22 2:15 pm Forms: [facility]
[2022-08-19] MEDS: HUMALOG SQ SCH ×3 (12:43→17:19)
[2022-08-19] MEDS: OXYCODONE-ACETAMINOPHEN 10-325 PO PRN ×2 (15:58→21:49)
[2022-08-19] MEDS: Ativan 1 MG PO PRN (20:04)
[2022-08-19] MEDS: Lantus Insulin SQ SCH (21:47)
[2022-08-20] MEDS: DUONEB 0.5-3 MG/3 ml Neb IH SCH ×2 (01:14→07:57)
[2022-08-20 05:48] LABS: Hematocrit 29.8 % (35-47); Hemoglobin 8.1 g/dL (12.0-16.0); Mean Cell Volume 84.2 fL (78-100); Mean Corpuscular Hemoglobin 22.9 pg (26-32); Mean Corpuscular Hgb Concent. 27.2 g/dL (32-36); Mean Platelet Volume 12.4 fL (7.5-11.0); Platelet Count 329 x10^3/uL (150-450); Red Blood Count 3.54 x10^6/uL (4.1-5.4); Red Cell Distribution Width 17.2 % (11.5-14.0); White Blood Count 6.6 x10^3/uL (4.0-10.5)
[2022-08-20 07:20] LABS: Slide Review YES
[2022-08-20 08:04] VITALS: PULSE 73
[2022-08-20] MEDS: Advair Hfa 115/21 Common canister IH SCH (08:06)
[2022-08-20 08:08] VITALS: BP 121/70; O2SAT 91
[2022-08-20] MEDS: HUMALOG SQ SCH (08:46)
[2022-08-20] MEDS: OXYCODONE-ACETAMINOPHEN 10-325 PO PRN (08:46)
--- NOTE | 2022-08-20 08:53 | PCM.DS ---
Discharge Summary Date of Admission: 08/16/22 14:28 Admitting Physician: LULI BARTON Consults: Consults on Case 08/18/22 11:43 Consult Surgery ROUTINE Primary Care Provider: CALVIN PALOMINO Allergies Allergies cyclobenzaprine HCl [From Flexeril] Allergy (Mild, Verified 08/15/22 23:14) Rash metoclopramide [From Reglan] Allergy (Mild, Verified 08/15/22 23:14) Rash Sulfa (Sulfonamide Antibiotics) [Sulfa(Sulfonamide Antibiotics)] Allergy (Mild, Verified 08/15/22 23:14) Rash adhesive Allergy (Verified 08/15/22 23:14) Rash nalbuphine HCl [From Nubain] Adverse Reaction (Intermediate, Verified 08/15/22 23:14) Stomach Cramps patient states she had stomach "burning" and that her legs felt like "rubber bands" ciprofloxacin [From Cipro] Adverse Reaction (Mild, Verified 08/15/22 23:14) Rash meperidine HCl [From Demerol] Adverse Reaction (Mild, Verified 08/15/22 23:14) Vomiting Hospital Summary - Hospital Course Hospital Course: is a 62 year old female pt of Dr. Palomino with morbid obesity, afib, COPD, HTN, hyperlipidemia, DVT (on Eliquis), DM (A1c 9.37 in May), and ulcerative colitis who was admitted through ER with CHF exacerbation and COPD exacerbation. troponins neg x 3. Had very high BP intially, which fell when her home meds were restarted. Has been hypoxemic and will go home on O2. Started having increased HR, up to 140s, so started on po cardizem which did control the rate. We had to decrease po carvedilol from 12.5po BID to 6.25po BID to maintain her BP, and she still runs 100s systolic. She is up out of bed by herself, says she is "a little wobbly" but does not feel she is going to fall. I urged her to ask for assistance when she is up if feeling wobbly at all. Her Hgb has been stable at just over 8.0. She does have Hx Ulcerative Colitis and has been having blood in her stool for the past year or so. Had a transfusion in Jun 2021. Is planning to start seeing DR. Xavier in for GI. CT ab/pelvis done two days ago was nonacute. Surgery consulted yesterday, thank you. This morning her breathing is good. SOB with exertion. C/o back pain, which is chronic for her. Discharging to [employer] this morning. - Vitals & Intake/Output Vital Signs: Vital Signs Temperature 96.2 F 08/20/22 08:00 Pulse Rate 73 08/20/22 08:00 Respiratory Rate 17 08/20/22 08:00 Blood Pressure 121/70 08/20/22 08:00 O2 Sat by Pulse Oximetry 91 L 08/20/22 08:00 Intake & Output: Intake & Output 08/17/22 08/18/22 08/19/22 08/20/22 11:59 11:59 11:59 11:59 Intake Total 3300 3177 967 7233 Output Total 1950 2050 800 Balance 1350 1033 -1070 1180 Weight 127 kg 125 kg 124.9 kg - Lab Result Diagrams: 08/20/22 05:00 08/19/22 06:55 Lab Results-Last 24 Hrs: Lab Results-Last 24 Hours 08/19/22 08/19/22 08/19/22 Range/Units 06:55 11:33 16:00 WBC (4.0-10.5) x10^3/uL RBC (4.1-5.4) x10^6/uL Hgb (12.0-16.0) g/dL Hct (35-47) % MCV (78-100) fL MCH (26-32) pg MCHC (32-36) g/dL RDW (11.5-14.0) % Plt Count (150-450) x10^3/uL MPV (7.5-11.0) fL POC Glucometer 170 H 165 H (74 to 106) mg/dL Slides for Path Review YES 08/19/22 08/20/22 08/20/22 Range/Units 21:23 05:00 06:59 WBC 6.6 (4.0-10.5) x10^3/uL RBC 3.54 L (4.1-5.4) x10^6/uL Hgb 8.1 L (12.0-16.0) g/dL Hct 29.8 L (35-47) % MCV 84.2 (78-100) fL MCH 22.9 L (26-32) pg MCHC 27.2 L (32-36) g/dL RDW 17.2 H (11.5-14.0) % Plt Count 329 (150-450) x10^3/uL MPV 12.4 H (7.5-11.0) fL POC Glucometer 109 H 111 H (74 to 106) mg/dL Slides for Path Review YES Micro Results-Entire Visit: Microbiology 08/15/22 00:00 Blood Culture Gram Stain - Final Blood Not Reportable Blood Culture - Final NO GROWTH 08/15/22 00:00 Blood Culture Gram Stain - Final Blood Not Reportable Blood Culture - Final NO GROWTH Accuchecks Date 08/20/22 Date 08/19/22 Date 08/19/22 Date 08/19/22 Time 16:23 Time 16:23 Time 11:36 - Radiology Exams Ordered Rad Exams-Entire Visit: Radiology Procedures Category Date Time Status ABDOMEN AND PELVIS W CONTRAST [CT] Urgent Exams 08/18/22 11:37 Completed - Procedures and Test Procedures and Tests throughout Hospitalization: Therapy Orders & Screens 08/16/22 01:05 Respiratory Therapy Assessment DAILY Comment: 08/16/22 04:32 Oxygen Nasal Cannula 2 lpm Comment: 08/16/22 06:10 OT Screen per Nursing Assess ONCE Comment: Protocol Order Physician Instructions: Greater than 3 points order OT Admission Screening Reason For Exam: Triggered on Admission Diagnosis: CHF, COPD Open Wound/Cellutlitis/Pressure Ulcers: Yes: current wound vac Acute Fx/ORIF/Change in wt bearing status: No Severe MUSCULOSKELETAL pain: No ADL Dysfunction: No Acute CVA w/Hemiparesis/Hemiplegia: No Decreased Functional Mobility/Strength: No Sprain/Strain: No Acute Post-op Mobility Dysfunction: No Total Points: 5 PT Screen per Nursing Assess ONCE Comment: Protocol Order Physician Instructions: Greater than 3 points order PT Admission Screenin Reason For Exam: Triggered on Admission Diagnosis: CHF, COPD Open Wound/Cellutlitis/Pressure Ulcers: Yes: current wound vac Acute Fx/ORIF/Change in wt bearing status: No Severe MUSCULOSKELETAL pain: No ADL Dysfunction: No Acute CVA w/Hemiparesis/Hemiplegia: No Decreased Functional Mobility/Strength: No Sprain/Strain: No Acute Post-op Mobility Dysfunction: No Total Points: 5 RT Screen per Nursing Assess ONCE Comment: Protocol Order Physician Instructions: Greater than 3 points order RT Admission Screen Reason For Exam: Triggered on Admission Diagnosis: CHF, COPD Diagnosis: CHF, COPD Pneumonia: No Home O2: No Asthma: Yes CHF: Yes Home CPAP/BIPAP: No Home Nebs/MDI: No Total Points: 7 08/16/22 10:35 PT Eval & Treat (MD Order) ONCE Reason for Eval:: wound vac R thigh - last changed >1 wk ago Diagnosis: CHF, COPD Discharge Exam General Appearance: no apparent distress, obese Neurologic Exam: oriented x 3, cooperative Eye Exam: eyes nml inspection Ears, Nose, Throat Exam: moist mucous membranes Neck Exam: normal inspection Respiratory Exam: lungs clear, crackles/rales (faint crackles RLL), No rhonchi, No wheezing Cardiovascular Exam: regular rate/rhythm, normal heart sounds, No murmur Gastrointestinal/Abdomen Exam: soft, normal bowel sounds, No tenderness, No distention, No mass, No guarding, No rebound Extremity Exam: normal inspection, swelling (nonpitting edema as usual), No tenderness Skin Exam: normal color, warm, dry, No rash Wound Assessment: Skin/Wound Assessment Wound/Incision Assessment Start: 08/16/22 06:10 Text: Status: Active Freq: Q6H Protocol: Document 08/20/22 08:00 IRIS (Rec: 08/20/22 08:16 RAFANE [id number]) Wound/Incision Assessment Right Anterior Thigh Wound Assessment Shift Assessment Wound Type Incision Dressing Status Dry & Intact Comment MEPILEX DRESSING IN PLACE CDI Final Diagnosis/Problem List - Final Discharge Diagnosis/Problem (1) Atrial fibrillation with RVR Current Visit: Yes Status: Resolved Code(s): I48.91 - UNSPECIFIED ATRIAL FIBRILLATION (2) COPD exacerbation Current Visit: No Status: Resolved Code(s): J44.1 - CHRONIC OBSTRUCTIVE PULMONARY DISEASE W (ACUTE) EXACERBATION (3) CHF exacerbation Current Visit: Yes Status: Resolved Code(s): I50.9 - HEART FAILURE, UNSPECIFIED (4) Hypomagnesemia Current Visit: Yes Status: Resolved Code(s): E83.42 - HYPOMAGNESEMIA (5) Leg wound, right Current Visit: Yes Status: Chronic Code(s): S81.801A - UNSPECIFIED OPEN WOUND, RIGHT LOWER LEG, INITIAL ENCOUNTER (6) 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 Current Visit: Yes Status: Chronic Code(s): E11.51 - TYPE 2 DIABETES W DIABETIC PERIPHERAL ANGIOPATH W/O GANGRENE; I70.209 - UNSP ATHSCL [place] ARTERIES OF EXTREMITIES, UNSP EXTREMITY (7) Syncope Current Visit: Yes Status: Acute Code(s): R55 - SYNCOPE AND COLLAPSE (8) Anemia Current Visit: Yes Status: Chronic Code(s): D64.9 - ANEMIA, UNSPECIFIED (9) Hyponatremia Current Visit: Yes Status: Resolved Code(s): E87.1 - HYPO-OSMOLALITY AND HYPONATREMIA (10) Muscular deconditioning Current Visit: Yes Status: Chronic Code(s): R29.898 - OTH SYMPTOMS AND SIGNS INVOLVING THE MUSCULOSKELETAL SYSTEM (11) Hypoxemia Current Visit: Yes Status: Acute Code(s): R09.02 - HYPOXEMIA - Discharge Disposition: DC TO [place] Condition: Stable Prescriptions: New Diltiazem HCl Cd [Cardizem CD ] 120 mg PO DAILY #30 cap Carvedilol [Coreg ] 6.25 mg PO BID #60 tablet Albuterol/Ipratropium 3ml Neb* [DUONEB 0.5-3 MG/3 ml Neb] 3 ml IH QID PRN #60 unit PRN Reason: shortness of breath Continue Mesalamine [Pentasa] 500 mg PO BID Omeprazole 20 MG [Prilosec 20 mg] 20 mg PO BID Methocarbamol [Robaxin] 1,000 mg PO QIDPRN PRN PRN Reason: Pain Duloxetine HCl 60 mg PO DAILY Atorvastatin Calcium 10 mg PO DAILY Insulin Glargine,Hum.rec.anlog [Basaglar Kwikpen U-100] 38 unit SQ HS Meclizine HCl 25 mg [Antivert 25 mg] 25 mg PO Q8H PRN PRN PRN Reason: Dizziness Insulin Aspart [Novolog] 15 unit SQ AC Levothyroxine Sodium 25 Mcg [Synthroid 25 Mcg] 25 mcg PO DAILY Isosorbide Mononitrate 60 mg [Imdur 60MG] 120 mg PO DAILY PARoxetine HCl [Paxil] 30 mg PO DAILY Saccharomyces Boulardii [Florastor] 250 mg PO BID Ranolazine 500 MG [Ranexa 500 MG] 500 mg PO BID Primidone 50 MG [Mysoline 50Mg] 50 mg PO TID Pravastatin Sodium 80 mg PO DAILY Nitroglycerin 0.4 mg Tablet [Nitrostat 0.4 MG Tablet] 0.4 mg SL Q5MIN PRN MR X 3 PRN PRN Reason: Chest Pain Magnesium Oxide 400 mg [Mag-Ox 400] 800 mg PO DAILY Loperamide HCl [Loperamide] 4 mg PO Q12H PRN PRN PRN Reason: Diarrhea lisinopriL [Zestril] 2.5 mg PO DAILY Fluticasone Propion/Salmeterol [Fluticasone-Salmeterol 250-50] 1 each IH BIDRT azaTHIOprine [Azathioprine] 50 mg PO BID Aripiprazole [Abilify] 2 mg PO DAILY Hydrocodone/Acetaminophen [Hydrocodone-Acetamn 7.5-325/15] 10 ml PO Q8H PRN PRN #120 ml MDD 30 ml PRN Reason: Cough Apixaban [Eliquis 5 mg Tablet] 5 mg PO BID Discontinued carvediloL [Carvedilol] 25 mg PO BID Outpatient Orders: CBC Time Frame: 1 Week, Facility: [facility], Location: LABORATORY Additional Instructions: USP ORDERS: ADMIT TO [facility] CARE DIABETIC DIET ACHS ACCU CHECKS 2L/NC CHECK CBC IN ONE WEEK DRESSING CHANGES THREE TIMES A WEEK AND NEEDED FOLLOWS: CLEANSE WITH STERILE WATER, DRESS WITH ALGINATE IN WOUND BED, SECURE WITH MEPILEX BORDER 6X6 SEE ATTACHED MEDLIST Follow up with: LORIE CROWE [COURTESY STAFF] - 08/24/22 2:15 pm JUAN JUAN [ACTIVE STAFF] - 08/25/22 2:45 pm (Karlene Pinto) Forms: Transfer Record [facility]
--- NOTE | 2022-08-20 15:08 | ECHO ---
DATE OF PROCEDURE: 08/17/2022 CLINICAL INFORMATION: Syncope. The M-mode 2D, and Doppler echocardiogram including color flow Doppler are technically difficult related to the patient's breathing. The left ventricle is normal in size. There is mild concentric left ventricular hypertrophy. There is no thrombus present. The left ventricular systolic function is mildly decreased. The ejection fraction is calculated to be 44%. The right ventricle is normal. The left atrium is moderately dilated. The interatrial septum is intact. The right atrium is normal. The aortic valve opens well. It is trileaflet. There is mild aortic regurgitation. There is mitral valve leaflet calcification. The tricuspid valve is normal. The pulmonic valve is not well visualized. The aortic root is normal. There is no pericardial effusion present. IMPRESSION: 1) MILD CONCENTRIC LEFT VENTRICULAR HYPERTROPHY. 2) MILD DECREASE IN LEFT VENTRICULAR SYSTOLIC FUNCTION. 3) MODERATE LEFT ATRIAL DILATATION. 4) MILD AORTIC REGURGITATION. 5) HYPERKINESIS OF THE SEPTUM WHICH IS MILD.
== END 2022-08-20 09:48 | DRG 309 ==
LOC: ED 23:10 → MED SURG 08-16 04:31 → OBSVTOIN 08-16 14:28
PROVIDERS: ADMIT Family Medicine; ATTEND Family Medicine
DX: I48.91 Unspecified atrial fibrillation (principal); E87.1 Hypo-osmolality and hyponatremia; J44.1 Chronic obstructive pulmonary disease with (acute) exacerbation; I11.0 Hypertensive heart disease with heart failure; I50.9 Heart failure, unspecified; E83.42 Hypomagnesemia; S81.801A Unspecified open wound, right lower leg, initial encounter; E11.51 Type 2 diabetes mellitus with diabetic peripheral angiopathy without gangrene; I70.209 Unspecified atherosclerosis of native arteries of extremities, unspecified extremity; E11.65 Type 2 diabetes mellitus with hyperglycemia; R55 Syncope and collapse; D64.9 Anemia, unspecified; M54.9 Dorsalgia, unspecified; G89.29 Other chronic pain; R29.898 Other symptoms and signs involving the musculoskeletal system; R09.02 Hypoxemia; Z79.899 Other long term (current) drug therapy; R19.5 Other fecal abnormalities
CPT/HCPCS: 0241U; 36000; 36415; 71260; 74177; 80048; 80053; 82947; 83605; 83735; 83880; 84145; 84484; 85025; 85027; 87040; 93005; 93041; 93306; 93880; 94640; 94760; 96374; 97161; 99285; G0328; 82274; J0696; J1817; J1940; J2270; J2405; J2930; J3475; A9270-GY

== ENCOUNTER 2022-10-06 14:09 | Observation (INO) | payer MEDICARE ==
[2022-10-06] MEDS ORDERED: ROCEPHIN 1 Gm-D5w 50 ml Bag** 1 G/50 ML IVPB IV STA (14:44)
[2022-10-06] MEDS ORDERED: solu-MEDROL 125 MG, Sterile H2O 10 ml 2 ML IV ONE ×2 (14:44)
[2022-10-06] MEDS ORDERED: Sodium Chloride 0.9% 1000 ML 1,000 ML IV SCH ×2 (14:45→17:45)
[2022-10-06] MEDS ORDERED: Sterile H2O 10 ml IJ ONE (15:04)
[2022-10-06] MEDS ORDERED: ROCEPHIN 1 Gm-D5w 50 ml Bag** 1 G/50 ML IVPB IV ONE (15:05)
[2022-10-06] MEDS ORDERED: solu-MEDROL ONE (15:05)
--- NOTE | 2022-10-06 15:07 | XRAY ---
Indication: Cough and short of breath. Comparison: June 29, 2022 Portable chest now underinflated with new bibasilar subsegmental atelectasis/scarring. Remaining heart and upper lungs unremarkable. Bony thorax intact again with osteopenia and degenerative changes.
[2022-10-06 15:22] LABS: Absolute Neutrophil Ct (ANC) 4.64 x10^3/uL (1.4-6.9); Basophil (Absolute #) 0.02 x10^3/uL (0-0.4); Eosinophil % 0.4 % (0.00-5.0); Eosinophil (Absolute #) 0.02 x10^3/uL (0-0.5); Hematocrit 30.3 % (35-47); Hemoglobin 8.5 g/dL (12.0-16.0); Lymphocytes % 8.8 % (24.0-44.0); Mean Cell Volume 78.1 fL (78-100); Mean Corpuscular Hemoglobin 21.9 pg (26-32); Mean Corpuscular Hgb Concent. 28.1 g/dL (32-36); Mean Platelet Volume 11.4 fL (7.5-11.0); Monocytes % 8.8 % (0.0-12.0); Neutrophil % 81.2 % (36.0-66.0); Platelet Count 238 x10^3/uL (150-450); Red Blood Count 3.88 x10^6/uL (4.1-5.4); Red Cell Distribution Width 18.6 % (11.5-14.0); White Blood Count 5.7 x10^3/uL (4.0-10.5)
--- NOTE | 2022-10-06 15:27 | ERPHSYRPT ---
- History of Present Illness Time Seen by Provider: 10/06/22 14:20 Source: patient Exam Limitations: no limitations Patient Subjective Stated Complaint: Pt reports she was recently admitted with pneumonia and discharged to [place]. She was discharged home without oxygen. Yesterday she became short of breath that has continued to worsen. Triage Nursing Assessment: Pt arrived by EMS cot and transfered to bed with assist x1. Alert and oriented x3. Skin W/D/P. Respirations easy on EMS cot, became short of breath after transfering to ER bed. Fine crackles bilat lower lung bases. Nonpitting edema to bilat lower extremities, left worse than right. Physician History: Patient is a 62-year-old female who presents with a complaint of shortness of breath she does have a history of COPD and CHF. Her shortness of breath is gotten progressively worse over the past month but last night she started with increased symptoms could not lay down to sleep had to sleep sitting up she was recently released from the hospital with right lower lobe pneumonia. As mentioned above she does have longstanding COPD and CHF. Timing/Duration: yesterday Activities at Onset: none Severity of Dyspnea-Max: moderate Severity of Dyspnea-Current: moderate Possible Cause: frequent episodes Modifying Factors: Improves With: albuterol nebulizer, oxygen Associated Symptoms: edema, wheezing, ankle swelling, leg swelling, productive cough Allergies/Adverse Reactions: cyclobenzaprine HCl [From Flexeril] Allergy (Mild, Verified 10/06/22 15:33) Rash metoclopramide [From Reglan] Allergy (Mild, Verified 10/06/22 15:33) Rash Sulfa (Sulfonamide Antibiotics) [Sulfa(Sulfonamide Antibiotics)] Allergy (Mild, Verified 10/06/22 15:33) Rash adhesive Allergy (Verified 10/06/22 15:33) Rash nalbuphine HCl [From Nubain] Adverse Reaction (Intermediate, Verified 10/06/22 15:33) Stomach Cramps patient states she had stomach "burning" and that her legs felt like "rubber bands" ciprofloxacin [From Cipro] Adverse Reaction (Mild, Verified 10/06/22 15:33) Rash meperidine HCl [From Demerol] Adverse Reaction (Mild, Verified 10/06/22 15:33) Vomiting Home Medications: Duloxetine HCl 60 mg PO DAILY 03/17/16 [History] Mesalamine [Pentasa] 500 mg PO BID 03/17/16 [History] Omeprazole 20 MG [Prilosec 20 mg] 20 mg PO BID 03/17/16 [History] Atorvastatin Calcium 10 mg PO DAILY 01/25/18 [History] Meclizine HCl 25 mg [Antivert 25 mg] 25 mg PO Q8H PRN PRN 12/05/19 [History] Isosorbide Mononitrate 60 mg [Imdur 60MG] 60 mg PO DAILY 12/31/20 [History] Levothyroxine Sodium 25 Mcg [Synthroid 25 Mcg] 25 mcg PO DAILY 12/31/20 [History] Aripiprazole [Abilify] 2 mg PO DAILY 06/03/22 [History] Fluticasone Propion/Salmeterol [Fluticasone-Salmeterol 250-50] 1 each IH BIDRT 06/03/22 [History] Loperamide HCl [Loperamide] 4 mg PO Q12H PRN PRN 06/03/22 [History] Magnesium Oxide 400 mg [Mag-Ox 400] 800 mg PO DAILY 06/03/22 [History] Nitroglycerin 0.4 mg Tablet [Nitrostat 0.4 MG Tablet] 0.4 mg SL Q5MIN PRN MR X 3 PRN 06/03/22 [History] Pravastatin Sodium 80 mg PO DAILY 06/03/22 [History] Primidone 50 MG [Mysoline 50Mg] 50 mg PO TID 06/03/22 [History] Ranolazine 500 MG [Ranexa 500 MG] 500 mg PO BID 06/03/22 [History] Saccharomyces Boulardii [Florastor] 250 mg PO BID 06/03/22 [History] azaTHIOprine [Azathioprine] 50 mg PO BID 06/03/22 [History] lisinopriL [Zestril] 2.5 mg PO DAILY 06/03/22 [History] Apixaban [Eliquis 5 mg Tablet] 5 mg PO BID 08/16/22 [History] Acetaminophen 325 mg [Tylenol 325 mg] 2 tab PO Q4HPRN PRN 10/06/22 [History] Albuterol Sulfate [Proventil Hfa] 2 puff IH Q6HPRN PRN 10/06/22 [History] Furosemide 40 mg [Lasix 40 MG] 40 mg PO DAILY 10/06/22 [History] Hydrocodone/Acetaminophen [Hydrocodone-Acetamin 7.5-325] 1 tab PO BID PRN 10/06/22 [History] Hydrocortisone [Proctocort] 28.35 gm RC Q12H PRN PRN 10/06/22 [History] Insulin Aspart [NovoLOG Insulin] See Rx Instructions .ROUTE .COMPLEX 10/06/22 [History] Insulin Glargine,Hum.rec.anlog [Insulin Glargine] 42 units SQ HS 10/06/22 [History] Lorazepam 0.5 mg [Ativan 0.5 MG] 0.5 mg PO [id number] PRN 10/06/22 [History] Magnesium Hydroxide 30 ml [Milk of Magnesia 30 ml] 30 ml PO DAILY PRN 10/06/22 [History] Metformin HCl 500 mg [Glucophage 500 MG] 500 mg PO DAILY 10/06/22 [His tory] Potassium Chloride 10 meq PO DAILY 10/06/22 [History] Hx Tetanus, Diphtheria Vaccination/Date Given: No (unknown) Hx Influenza Vaccination/Date Given: No Hx Pneumococcal Vaccination/Date Given: No Travel Risk - International Travel Have you traveled outside of the country in past 3 weeks: No - Coronavirus Screening Symptoms: Cough: New Onset, Shortness of Breath Close contact with a COVID-19 positive Pt in past 14-21 Days: No - Vaccine Status Have you recieved a Covid-19 vaccination: No - Review of Systems Constitutional: Weakness Eyes: No Symptoms Ears, Nose, & Throat: No Symptoms Respiratory: Cough, Dyspnea, Dyspnea on Exertion ([place]), Wheezing Cardiac: No Chest Pain, No Edema, No Syncope Abdominal/Gastrointestinal: No Abdominal Pain, No Nausea, No Vomiting, No Diarrhea Genitourinary Symptoms: No Dysuria Musculoskeletal: No Back Pain, No Neck Pain Skin: No Rash Neurological: No Dizziness, No Focal Weakness, No Sensory Changes Psychological: No Symptoms Endocrine: No Symptoms All Other Systems: Reviewed and Negative - Past Medical History Pertinent Past Medical History: Yes Neurological History: Migraines, Peripheral Neuropathy ENT History: Cataracts Cardiac History: Coronary Artery Disease, High Cholesterol, Hypertension, Myocardial Infarction ([place]) Respiratory History: Asthma, Bronchitis, CHF, COPD, Sleep Apnea Endocrine Medical History: Diabetes Type II Musculoskeletal History: Arthritis, Degenerative Disk Disease, Fibromyalgia, Osteoarthritis GI Medical History: Crohns Disease, Diverticulitis, GERD, Irritable Bowel History: No Pertinent History Psycho-Social History: Anxiety, Depression Female Reproductive Disorders: No Pertinent History Other Medical History: HX UTI, HX Yeast Infection, Neuropathy, degenerative joint disease - Past Surgical History Past Surgical History: Yes Neuro Surgical History: No Pertinent History Cardiac: Cardiac Catheterization Respiratory: No Pertinent History Gastrointestinal: No Pertinent History Genitourinary: No Pertinent History Musculoskeletal: No Pertinent History Female Surgical History: Dilation & Curettage, Section, Tubal Ligation Other Surgical History: KIDNEY STONE REMOVAL, right 2nd toe amputated 2021. heart cath x3, no stents, clot removal rt thigh artery - Social History Smoking Status: Former smoker How long have you smoked: years Exposure to second hand smoke: No Alcohol Use: None Drug Use: none Patient Lives Alone: No Significant Family History: no pertinent family hx, diabetes, hypertension - Nursing Vital Signs Nursing Vital Signs: Initial Vital Signs Temperature 99.8 F 10/06/22 14:12 Pulse Rate 82 10/06/22 14:12 Respiratory Rate 22 10/06/22 14:12 Blood Pressure 165/98 10/06/22 14:12 O2 Sat by Pulse Oximetry 98 10/06/22 14:12 Pain Scale Pain Intensity 4 - Physical Exam General Appearance: mild distress Eye Exam: PERRL/EOMI Ears, Nose, Throat Exam: hearing grossly normal, normal ENT inspection Neck Exam: normal inspection, supple Respiratory Exam: respiratory distress, airway intact, diminished breath sounds, crackles/rales, wheezing Cardiovascular/Chest Exam: normal heart sounds, regular rate/rhythm Abdominal/Gastrointestinal Exam: soft, No tenderness, No distention, No mass Rectal Exam: deferred Extremity Exam: pedal edema Neurologic Exam: alert, oriented x 3, cooperative Skin Exam: normal color, warm, dry SpO2 Interpretation: O2 applied (2 L nasal cannula) SpO2: 98 O2 Delivery: Nasal Cannula - Course Nursing assessment & vital signs reviewed: Yes EKG Interpreted by Me: RATE (100), Sinus Rhythm, NORMAL AXIS, 1st degree AV Block, Non-specific ST Changes - Radiology Exams Chest X-ray Interpretation: Reviewed by me - CT Exams Chest CT Interpretation: Other (No PE noted) Ordered Tests: Active Orders 24 hr Category Date Time Status EKG-ER Only STAT Care 10/06/22 14:44 Active IV Insertion STAT Care 10/06/22 14:44 Active CHEST 1 VIEW (PORTABLE) Stat Exams 10/06/22 14:45 Completed CHEST WITH CONTRAST [CT] Stat Exams 10/06/22 15:47 Completed BLOOD CULTURE Stat Lab 10/06/22 15:05 Received CBC W DIFF Stat Lab 10/06/22 15:00 Completed CMP Stat Lab 10/06/22 15:00 Completed CULTURE,SPUTUM Stat Lab 10/06/22 16:14 Ordered D-DIMER QUANTITATIVE Stat Lab 10/06/22 15:00 Completed Lactic Acid Stat Lab 10/06/22 15:07 Completed MAGNESIUM Stat Lab 10/06/22 15:00 Completed NT PRO BNP Stat Lab 10/06/22 15:00 Completed PROTIME WITH INR Stat Lab 10/06/22 15:00 Completed PTT Stat Lab 10/06/22 15:00 Completed TROPONIN Q4H Lab 10/06/22 15:00 Completed TROPONIN Q4H Lab 10/06/22 18:45 Ordered TROPONIN Q4H Lab 10/06/22 22:45 Ordered BiPap/CPAP STAT RT 10/06/22 14:44 Completed Medication Summary Generic Name Dose Route Start Last Admin Trade Name Freq PRN Reason Stop Dose Admin Sodium Chloride 1,000 mls @ 50 mls/hr 10/06/22 14:45 10/06/22 15:06 Sodium Chloride 0.9% 1000 Ml IV 11/05/22 14:44 50 mls/hr .Q20H MITCH Administration Discontinued Medications Generic Name Dose Route Start Last Admin Trade Name Freq PRN Reason Stop Dose Admin Methylprednisolone Sodium 0 mg 10/06/22 14:44 10/06/22 15:10 Succinate 125 mg/ Sterile IV 10/06/22 14:45 125 mg Water 2 ml STAT ONE Administration Furosemide 40 mg 10/06/22 15:45 10/06/22 15:55 Furosemide 40 Mg/4 Ml Vial IV 10/06/22 15:46 40 mg STAT ONE Administration Furosemide Confirm 10/06/22 15:55 Furosemide 40 Mg/4 Ml Vial Administered 10/06/22 15:56 Dose 40 mg .ROUTE .STK-MED ONE Ceftriaxone Sodium/Dextrose 1 g in 50 mls @ 100 mls/hr 10/06/22 14:44 10/06/22 16:47 Rocephin 1 Gm-D5w 50 Ml Bag IV 10/06/22 15:13 Infused STAT STA Infusion Ceftriaxone Sodium/Dextrose Confirm 10/06/22 15:05 Rocephin 1 Gm-D5w 50 Ml Bag Administered 10/06/22 15:06 Dose 1 g in 50 mls @ ud IV .STK-MED ONE Methylprednisolone Sodium Succinate Confirm 10/06/22 15:05 Methylprednis Sod Succ 125 Mg/2 Ml Vial Administered 10/06/22 15:06 Dose 125 mg .ROUTE .STK-MED ONE Morphine Sulfate 4 mg 10/06/22 15:39 10/06/22 15:48 Morphine Sulfate 4 Mg/Ml Injection IV 10/06/22 15:40 4 mg STAT ONE Administration Morphine Sulfate Confirm 10/06/22 15:45 Morphine Sulfate 4 Mg/Ml Injection Administered 10/06/22 15:46 Dose 4 mg .ROUTE .STK-MED ONE Ondansetron HCl 4 mg 10/06/22 15:53 10/06/22 15:55 Ondansetron Hcl 4 Mg/2 Ml Vial IV 10/06/22 15:54 4 mg STAT ONE Administration Ondansetron HCl Confirm 10/06/22 15:55 Ondansetron Hcl 4 Mg/2 Ml Vial Administered 10/06/22 15:56 Dose 4 mg .ROUTE .STK-MED ONE Sterile Water Confirm 10/06/22 15:04 Water For Injection,Sterile 10 Ml Vial Administered 10/06/22 15:05 Dose 10 ml IJ .STK-MED ONE Lab/Rad Data: Laboratory Result Diagrams 10/06/22 15:00 10/06/22 15:00 Laboratory Results 10/06/22 10/06/22 10/06/22 Range/Units Unknown 15:07 15:00 WBC (4.0-10.5) x10^3/uL RBC (4.1-5.4) x10^6/uL Hgb (12.0-16.0) g/dL Hct (35-47) % MCV (78-100) fL MCH (26-32) pg MCHC (32-36) g/dL RDW (11.5-14.0) % Plt Count (150-450) x10^3/uL MPV (7.5-11.0) fL Gran % (36.0-66.0) % Immature Gran % (Auto) (0.00-0.4) % Nucleat RBC Rel Count (0.00-0.1) % Eos # (Auto) (0-0.5) x10^3/uL Immature Gran # (Auto) (0.00-0.03) x10^3u/L Absolute Lymphs (auto) (1.0-4.6) x10^3/uL Absolute Monos (auto) (0.0-1.3) x10^3/uL Absolute Nucleated RBC (0.00-0.01) x10^3u/L Lymphocytes % (24.0-44.0) % Monocytes % (0.0-12.0) % Eosinophils % (0.00-5.0) % Basophils % (0.0-0.4) % Absolute Granulocytes (1.4-6.9) x10^3/uL Basophils # (0-0.4) x10^3/uL PT (9.4-12.5) SECONDS INR (0.8-3.0) APTT (25.1-36.5) SECONDS D-Dimer (0.0-0.50) mg/L Sodium (137-145) mmol/L Potassium (3.5-5.1) mmol/L Chloride (98-107) mmol/L Carbon Dioxide (22-30) mmol/L Anion Gap (5-15) MEQ/L BUN (7-17) mg/dL Creatinine (0.52-1.04) mg/dL Estimated GFR ML/MIN Glucose (74-106) mg/dL Lactic Acid 1.1 (0.4-2.0) Calcium (8.4-10.2) mg/dL Magnesium (1.6-2.3) mg/dL Total Bilirubin (0.2-1.3) mg/dL AST (14-36) U/L ALT (0-35) U/L Alkaline Phosphatase (38-126) U/L Troponin I < 0.012 (0.000-0.034) ng/mL NT-Pro-B Natriuret Pep (0-900) pg/mL Serum Total Protein (6.3-8.2) g/dL Albumin (3.5-5.0) g/dL Influenza Type A Ag NEGATIVE (NEGATIVE) Influenza Type B Ag NEGATIVE (NEGATIVE) RSV (PCR) NEGATIVE (Negative) SARS-CoV-2 (PCR) POSITIVE A (NEGATIVE) 10/06/22 10/06/22 10/06/22 Range/Units 15:00 15:00 15:00 WBC 5.7 (4.0-10.5) x10^3/uL RBC 3.88 L (4.1-5.4) x10^6/uL Hgb 8.5 L (12.0-16.0) g/dL Hct 30.3 L (35-47) % MCV 78.1 (78-100) fL MCH 21.9 L (26-32) pg MCHC 28.1 L (32-36) g/dL RDW 18.6 H (11.5-14.0) % Plt Count 238 (150-450) x10^3/uL MPV 11.4 H (7.5-11.0) fL Gran % 81.2 H (36.0-66.0) % Immature Gran % (Auto) 0.4 (0.00-0.4) % Nucleat RBC Rel Count 0.0 (0.00-0.1) % Eos # (Auto) 0.02 (0-0.5) x10^3/uL Immature Gran # (Auto) 0.02 (0.00-0.03) x10^3u/L Absolute Lymphs (auto) 0.50 L (1.0-4.6) x10^3/uL Absolute Monos (auto) 0.50 (0.0-1.3) x10^3/uL Absolute Nucleated RBC 0.00 (0.00-0.01) x10^3u/L Lymphocytes % 8.8 L (24.0-44.0) % Monocytes % 8.8 (0.0-12.0) % Eosinophils % 0.4 (0.00-5.0) % Basophils % 0.4 (0.0-0.4) % Absolute Granulocytes 4.64 (1.4-6.9) x10^3/uL Basophils # 0.02 (0-0.4) x10^3/uL PT 11.4 (9.4-12.5) SECONDS INR 1.08 (0.8-3.0) APTT 28.5 (25.1-36.5) SECONDS D-Dimer 1.06 H* (0.0-0.50) mg/L Sodium 132 L (137-145) mmol/L Potassium 3.8 (3.5-5.1) mmol/L Chloride 101 (98-107) mmol/L Carbon Dioxide 25 (22-30) mmol/L Anion Gap 9.6 (5-15) MEQ/L BUN 10 (7-17) mg/dL Creatinine 0.48 L (0.52-1.04) mg/dL Estimated GFR > 60.0 ML/MIN Glucose 188 H (74-106) mg/dL Lactic Acid (0.4-2.0) Calcium 8.7 (8.4-10.2) mg/dL Magnesium 1.5 L (1.6-2.3) mg/dL Total Bilirubin 0.50 (0.2-1.3) mg/dL AST 50 H (14-36) U/L ALT 26 (0-35) U/L Alkaline Phosphatase 465 H (38-126) U/L Troponin I (0.000-0.034) ng/mL NT-Pro-B Natriuret Pep 1050 H (0-900) pg/mL Serum Total Protein 8.3 H (6.3-8.2) g/dL Albumin 3.8 (3.5-5.0) g/dL Influenza Type A Ag (NEGATIVE) Influenza Type B Ag (NEGATIVE) RSV (PCR) (Negative) SARS-CoV-2 (PCR) (NEGATIVE) - Progress Progress: improved Air Movement: good Blood Culture(s) Obtained: No Antibiotics given: Yes Discussed with : Gm - Departure Departure Disposition: Observation Clinical Impression: COVID-19, COPD (chronic obstructive pulmonary disease), CHF (congestive heart failure) Condition: Fair Critical Care Time: No Referrals: CALVIN PALOMINO [Primary Care Provider] - Follow up/PCP as directed Instructions: Chronic Obstructive Pulmonary Disease, Heart Failure
[2022-10-06 15:39] LABS: ALBUMIN 3.8 g/dL (3.5-5.0); ALKALINE PHOSPHATASE 465 U/L (38-126); ANION GAP 9.6 MEQ/L (5-15); BLOOD UREA NITROGEN 10 mg/dL (7-17); CHLORIDE 101 mmol/L (98-107); Calcium 8.7 mg/dL (8.4-10.2); Carbon Dioxide 25 mmol/L (22-30); Creatinine 1 0.48 mg/dL (0.52-1.04); EST GLOMERULAR FILTRATION RATE > 60.0 ML/MIN; Glucose 188 mg/dL (74-106); MAGNESIUM 1.5 mg/dL (1.6-2.3); NT PRO BNP 1050 pg/mL (0-900); Potassium 3.8 mmol/L (3.5-5.1); SGOT/AST 50 U/L (14-36); SGPT/ALT 26 U/L (0-35); SODIUM 132 mmol/L (137-145); Total Protein 8.3 g/dL (6.3-8.2)
[2022-10-06] MEDS ORDERED: MORPHINE SULFATE 4 MG INJ IV ONE (15:39)
[2022-10-06 15:40] LABS: INR 1.08 (0.8-3.0); PROTIME 11.4 SECONDS (9.4-12.5); PTT 28.5 SECONDS (25.1-36.5)
[2022-10-06 15:42] LABS: D-DIMER QUANTITATIVE 1.06 mg/L (0.0-0.50)
[2022-10-06] MEDS ORDERED: Lasix 40 MG/4 ML IV ONE (15:45)
[2022-10-06] MEDS ORDERED: MORPHINE SULFATE 4 MG INJ ONE (15:45)
[2022-10-06] MEDS ORDERED: Zofran 4 MG/2 ML VIAL IV ONE (15:53)
[2022-10-06] MEDS ORDERED: Lasix 40 MG/4 ML ONE (15:55)
[2022-10-06] MEDS ORDERED: Zofran 4 MG/2 ML VIAL ONE (15:55)
--- NOTE | 2022-10-06 16:59 | XRAY ---
Indication: Short of breath. Elevated d-dimer. Multiple contiguous axial images obtained through the chest using 100 cc Isovue 370 contrast. Comparison: August 15, 2022 Adequate opacification of the pulmonary arteries. However mild diffuse respiration artifact limits evaluation for pulmonary embolus. No obvious pulmonary embolus. Heart remains borderline enlarged. Aorta remains normal in course and caliber. No pathologic mediastinal/hilar lymphadenopathy. Stable chronic right hemidiaphragm elevation with adjacent subsegmental atelectasis. No suspicious pulmonary mass, infiltrate, effusion, or pneumothorax. Bony thorax intact again with minimal degenerative changes throughout the spine. Limited upper abdomen again demonstrates fatty liver. Stable tiny gallstones and left renal cyst as seen on August 18, 2022 exam. Impression: 1. Respiration artifact limits evaluation for pulmonary embolus. Again no obvious pulmonary embolus. 2. Again chronic right hemidiaphragm elevation with adjacent subsegmental atelectasis. 3. No new or acute cardiopulmonary abnormalities. 4. Incidental fatty liver, tiny gallstones, and left renal cyst.
[2022-10-06 17:00] LABS: INFLUENZA A NEGATIVE (NEGATIVE); INFLUENZA B NEGATIVE (NEGATIVE); RESPIRATORY SYNCTIAL VIRUS NEGATIVE (Negative)
[2022-10-06 17:06] LABS: SARS-CoV-2 Xpert Express POSITIVE (NEGATIVE)
[2022-10-06] MEDS ORDERED: Zofran 4 MG/2 ML VIAL IV PRN (17:34)
[2022-10-06] MEDS ORDERED: ENOXAPARIN SODIUM SQ SCH ×2 (17:45→23:00)
[2022-10-06] MEDS ORDERED: VENTOLIN COMMON CANISTER IH SCH (19:00)
[2022-10-06 21:52] LABS: Slide Review 1 YES
[2022-10-06] MEDS ORDERED: Zithromax 500 MG/ 250 ML NaCl Premix 500 MG/250 ML IVPB IV SCH (23:30)
[2022-10-07] MEDS ORDERED: COREG 12.5 MG PO SCH (00:01)
[2022-10-07] MEDS ORDERED: Ativan 0.5 MG PO PRN (00:03)
[2022-10-07] MEDS ORDERED: Lantus Insulin SQ SCH (00:05)
[2022-10-07] MEDS: MYSOLINE 50MG PO SCH ×3 (00:50→15:54)
[2022-10-07] MEDS: Ranexa 500 MG PO SCH ×2 (00:50→08:32)
[2022-10-07] MEDS: ELIQUIS 2.5 MG TABLET PO SCH ×2 (00:51→08:34)
[2022-10-07] MEDS ORDERED: NORCO 7.5/325 MG TAB PO PRN ×2 (00:51→07:44)
[2022-10-07 05:04] LABS: Absolute Neutrophil Ct (ANC) 2.89 x10^3/uL (1.4-6.9); Basophil (Absolute #) 0 x10^3/uL (0-0.4); Eosinophil (Absolute #) 0 x10^3/uL (0-0.5); Hematocrit 27.4 % (35-47); Lymphocyte (Absolute #) 0.55 x10^3/uL (1.0-4.6); Lymphocytes % 14.7 % (24.0-44.0); Mean Cell Volume 76.8 fL (78-100); Mean Corpuscular Hemoglobin 22.4 pg (26-32); Mean Corpuscular Hgb Concent. 29.2 g/dL (32-36); Mean Platelet Volume 11.9 fL (7.5-11.0); Platelet Count 246 x10^3/uL (150-450); Red Blood Count 3.57 x10^6/uL (4.1-5.4); Red Cell Distribution Width 18.9 % (11.5-14.0); White Blood Count 3.8 x10^3/uL (4.0-10.5)
[2022-10-07 05:23] LABS: ALBUMIN 3.6 g/dL (3.5-5.0); ALKALINE PHOSPHATASE 387 U/L (38-126); ANION GAP 11.1 MEQ/L (5-15); BLOOD UREA NITROGEN 18 mg/dL (7-17); CHLORIDE 98 mmol/L (98-107); Calcium 8.3 mg/dL (8.4-10.2); Carbon Dioxide 26 mmol/L (22-30); Creatinine 1 0.59 mg/dL (0.52-1.04); EST GLOMERULAR FILTRATION RATE > 60.0 ML/MIN; Glucose 315 mg/dL (74-106); NT PRO BNP 1080 pg/mL (0-900); Potassium 3.6 mmol/L (3.5-5.1); SGOT/AST 35 U/L (14-36); SGPT/ALT 23 U/L (0-35); SODIUM 131 mmol/L (137-145); Total Protein 7.6 g/dL (6.3-8.2)
[2022-10-07] MEDS ORDERED: Lasix 40 MG/4 ML IV SCH (06:00)
[2022-10-07] MEDS ORDERED: FLUTICASONE-SALMETEROL 250-50 IH SCH ×2 (07:00→19:00)
[2022-10-07] MEDS ORDERED: VENTOLIN COMMON CANISTER IH SCH (07:00)
[2022-10-07] MEDS ORDERED: HYDROCORTISONE RC PRN (07:44)
[2022-10-07] MEDS ORDERED: VENTOLIN COMMON CANISTER IH PRN (07:44)
[2022-10-07] MEDS ORDERED: MILK OF MAGNESIA 30 ML PO PRN (07:44)
[2022-10-07] MEDS ORDERED: Nitrostat 0.4 MG Tablet SL PRN (07:44)
[2022-10-07] MEDS ORDERED: TYLENOL 325 MG PO PRN (07:44)
[2022-10-07] MEDS ORDERED: IMODIUM 2 MG PO PRN (07:44)
[2022-10-07] MEDS ORDERED: ANTIVERT 25 MG PO PRN (07:44)
[2022-10-07 08:22] LABS: Slide Review 1 YES
[2022-10-07] MEDS ORDERED: MEDICATION INTERVENTION MC SCH ×4 (08:30→09:00)
[2022-10-07] MEDS ORDERED: Cardizem CD PO SCH (10:00)
[2022-10-07] MEDS ORDERED: MAG-OX 400 PO SCH (10:00)
[2022-10-07] MEDS ORDERED: Imdur 60MG PO SCH (10:00)
[2022-10-07] MEDS ORDERED: AZATHIOPRINE 50 MG PO SCH (10:00)
[2022-10-07] MEDS ORDERED: Zestril 5 MG PO SCH (10:00)
[2022-10-07] MEDS ORDERED: Glucophage 500 MG PO SCH (10:00)
[2022-10-07] MEDS ORDERED: Lasix 40 MG PO SCH (10:00)
[2022-10-07] MEDS ORDERED: Acidophilus TABLET PO SCH (10:00)
[2022-10-07] MEDS ORDERED: MESALAMINE 500 MG PO SCH (10:00)
[2022-10-07] MEDS ORDERED: NON-FORMULARY ITEM (Lisinopril [Zestril] 2.5 MG Tablet) PO SCH (10:00)
[2022-10-07] MEDS ORDERED: SYNTHROID 25 MCG PO SCH (10:00)
[2022-10-07] MEDS ORDERED: Coreg PO SCH (10:00)
[2022-10-07] MEDS ORDERED: Klor Con PO SCH (10:00)
[2022-10-07] MEDS ORDERED: NON-FORMULARY ITEM (Duloxetine Hcl [Duloxetine Hcl] 60 MG Capsule.Dr) PO SCH (10:00)
[2022-10-07] MEDS ORDERED: NON-FORMULARY ITEM (Aripiprazole [Abilify] 2 MG Tablet) PO SCH (10:00)
[2022-10-07] MEDS ORDERED: Cymbalta 30 MG Capsule PO SCH (10:00)
[2022-10-07] MEDS ORDERED: Protonix 40MG Tablet PO SCH (10:00)
[2022-10-07] MEDS ORDERED: SACCHAROMYCES BOULARDII 250 MG PO SCH (10:00)
[2022-10-07] MEDS ORDERED: ROCEPHIN 1 Gm-D5w 50 ml Bag** 1 G/50 ML IVPB IV SCH (10:00)
[2022-10-07 12:10] VITALS: BP 127/75; PULSE 85; O2SAT 93
--- NOTE | 2022-10-07 18:22 | PCM.SSS ---
History of Present Illness - Chief Complaint Chief Complaint: c/o shortness of breath for 1-2 days History of Present Illness: is a 62 year old female.who presents with a complaint of shortness of breath she does have a history of COPD and CHF. Her shortness of breath is gotten progressively worse over the past month but last night she started with increased symptoms could not lay down to sleep had to sleep sitting up she was recently released from the hospital with right lower lobe pneumonia. As mentioned above she does have longstanding COPD and CHF. Timing/Duration: yesterday Activities at Onset: none Severity of Dyspnea-Max: moderate Severity of Dyspnea-Current: moderate Possible Cause: frequent episodes Modifying Factors: Improves With: albuterol nebulizer, oxygen Associated Symptoms: edema, wheezing, ankle swelling, leg swelling, productive cough - Review of Systems Constitutional: No Fever, No Chills Eyes: No Symptoms Ears, Nose, & Throat: No Symptoms Respiratory: Short Of Breath, No Cough Cardiac: No Chest Pain, No Edema, No Syncope Abdominal/Gastrointestinal: No Abdominal Pain, No Nausea, No Vomiting, No Diarrhea Genitourinary Symptoms: No Dysuria Musculoskeletal: No Back Pain, No Neck Pain Skin: No Rash Neurological: No Dizziness, No Focal Weakness, No Sensory Changes Psychological: No Symptoms Endocrine: No Symptoms Hematologic/Lymphatic: No Symptoms Immunological/Allergic: No Symptoms Medications & Allergies Home Medications: Home Medication List Duloxetine HCl 60 mg PO DAILY 03/17/16 [History Confirmed 10/06/22] Mesalamine [Pentasa] 500 mg PO BID 03/17/16 [History Confirmed 10/06/22] Omeprazole 20 MG [Prilosec 20 mg] 20 mg PO BID 03/17/16 [History Confirmed ] Atorvastatin Calcium 10 mg PO DAILY 01/25/18 [History Confirmed 10/06/22] Meclizine HCl 25 mg [Antivert 25 mg] 25 mg PO Q8H PRN PRN 12/05/19 [History Confirmed 10/06/22] Isosorbide Mononitrate 60 mg [Imdur 60MG] 60 mg PO DAILY 12/31/20 [History Confirmed 10/06/22] Levothyroxine Sodium 25 Mcg [Synthroid 25 Mcg] 25 mcg PO DAILY 12/31/20 [History Confirmed 10/06/22] Aripiprazole [Abilify] 2 mg PO DAILY 06/03/22 [History Confirmed 10/06/22] Fluticasone Propion/Salmeterol [Fluticasone-Salmeterol 250-50] 1 each IH BIDRT 06/03/22 [History Confirmed 10/06/22] Loperamide HCl [Loperamide] 4 mg PO Q12H PRN PRN 06/03/22 [History Confirmed 10/06/22] Magnesium Oxide 400 mg [Mag-Ox 400] 800 mg PO DAILY 06/03/22 [History Confirmed 10/06/22] Nitroglycerin 0.4 mg Tablet [Nitrostat 0.4 MG Tablet] 0.4 mg SL Q5MIN PRN MR X 3 PRN 06/03/22 [History Confirmed 10/06/22] Pravastatin Sodium 80 mg PO DAILY 06/03/22 [History Confirmed 10/06/22] Primidone 50 MG [Mysoline 50Mg] 50 mg PO TID 06/03/22 [History Confirmed 10/06/22] Ranolazine 500 MG [Ranexa 500 MG] 500 mg PO BID 06/03/22 [History Confirmed 10/06/22] Saccharomyces Boulardii [Florastor] 250 mg PO BID 06/03/22 [History Confirmed 10/06/22] azaTHIOprine [Azathioprine] 50 mg PO BID 06/03/22 [History Confirmed 10/06/22] lisinopriL [Zestril] 2.5 mg PO DAILY 06/03/22 [History Confirmed 10/06/22] Apixaban [Eliquis 5 mg Tablet] 5 mg PO BID 08/16/22 [History Confirmed 10/06/22] Carvedilol [Coreg ] 6.25 mg PO BID #60 tablet 08/19/22 [Rx Confirmed 10/06/22] Diltiazem HCl Cd [Cardizem CD ] 120 mg PO DAILY #30 cap 08/19/22 [Rx Confirmed 10/06/22] Acetaminophen 325 mg [Tylenol 325 mg] 2 tab PO Q4HPRN PRN 10/06/22 [History Confirmed 10/06/22] Albuterol Sulfate [Proventil Hfa] 2 puff IH Q6HPRN PRN 10/06/22 [History Confirmed 10/06/22] Furosemide 40 mg [Lasix 40 MG] 40 mg PO DAILY 10/06/22 [History Confirmed 10/06/22] Hydrocodone/Acetaminophen [Hydrocodone-Acetamin 7.5-325] 1 tab PO BID PRN 10/06/22 [History Confirmed 10/06/22] Hydrocortisone [Proctocort] 28.35 gm RC Q12H PRN PRN 10/06/22 [History Confirmed 10/06/22] Insulin Aspart [NovoLOG Insulin] See Rx Instructions .ROUTE .COMPLEX 10/06/22 [History Confirmed 10/06/22] Insulin Glargine,Hum.rec.anlog [Insulin Glargine] 42 units SQ HS 10/06/22 [History Confirmed 10/06/22] Lorazepam 0.5 mg [Ativan 0.5 MG] 0.5 mg PO [id number] PRN 10/06/22 [History Confirmed 10/06/22] Magnesium Hydroxide 30 ml [Milk of Magnesia 30 ml] 30 ml PO DAILY PRN 10/06/22 [History Confirmed 10/06/22] Metformin HCl 500 mg [Glucophage 500 MG] 500 mg PO DAILY 10/06/22 [History Confirmed 10/06/22] Potassium Chloride 10 meq PO DAILY 10/06/22 [History Confirmed 10/06/22] Allergies/Adverse Reactions: Allergies Allergy/AdvReac Type Severity Reaction Status Date / Time cyclobenzaprine HCl Allergy Mild Rash Verified 10/06/22 15:33 [From Flexeril] metoclopramide [From Reglan] Allergy Mild Rash Verified 10/06/22 15:33 Sulfa (Sulfonamide Allergy Mild Rash Verified 10/06/22 15:33 Antibiotics) [Sulfa(Sulfonamide Antibiotics)] adhesive Allergy Rash Verified 10/06/22 15:33 nalbuphine HCl [From Nubain] AdvReac Intermediate Stomach Verified 10/06/22 15:33 Cramps ciprofloxacin [From Cipro] AdvReac Mild Rash Verified 10/06/22 15:33 meperidine HCl [From Demerol] AdvReac Mild Vomiting Verified 10/06/22 15:33 - Past Medical History Past Medical History: Yes Neurological History: Migraines, Peripheral Neuropathy ENT History: Cataracts Cardiac History: Coronary Artery Disease, High Cholesterol, Hypertension, Myocardial Infarction ([place]) Respiratory History: Asthma, Bronchitis, CHF, COPD, Sleep Apnea Endocrine Medical History: Diabetes Type II Musculoskelatal History: Arthritis, Degenerative Disk Disease, Fibromyalgia, Osteoarthritis GI Medical History: Crohns Disease, Diverticulitis, GERD, Irritable Bowel History: No Pertinent History Pyscho-Social History: Anxiety, Depression Reproductive Disorders: No Pertinent History Comment: HX UTI, HX Yeast Infection, Neuropathy, degenerative joint disease - Past Surgical History Past Surgical History: Yes Neuro Surgical History: No Pertinent History Cardiac History: Cardiac Catheterization Respiratory Surgery: No Pertinent History GI Surgical History: No Pertinent History Genitourinary Surgical Hx: No Pertinent History Musculskeletal Surgical Hx: No Pertinent History Female Surgical History: Dilation & Curettage, Section, Tubal Ligation Other Surgical History: KIDNEY STONE REMOVAL, right 2nd toe amputated 2021. heart cath x3, no stents, clot removal rt thigh artery - Social History Smoking Status: Former smoker How long have you smoked: years Exposure to second hand smoke: No Alcohol: None Drug Use: none Significant Family History: no pertinent family hx, diabetes, hypertension - Physical Exam Vital Signs: Vital Signs - 24 hr Temp Pulse Resp BP Pulse Ox 10/07/22 12:00 98.4 F 85 18 127/75 93 L 10/07/22 08:26 76 17 98 10/07/22 08:00 97.6 F 76 17 87/61 98 10/07/22 04:00 98.7 F 86 24 132/80 93 L 10/07/22 00:00 98.9 F 90 20 163/91 93 L 10/06/22 22:08 86 24 92 L General Appearance: no apparent distress, alert Neurologic Exam: alert, oriented x 3, cooperative, normal mood/affect, nml cerebellar function, nml station & gait, sensation nml, No motor deficits Eye Exam: PERRL/EOMI, eyes nml inspection Ears, Nose, Throat Exam: normal ENT inspection, TMs normal, pharynx normal, moist mucous membranes Neck Exam: normal inspection, non-tender, supple, full range of motion Respiratory Exam: diminished breath sounds, No respiratory distress Cardiovascular Exam: regular rate/rhythm, normal heart sounds, normal peripheral pulses Gastrointestinal/Abdomen Exam: soft, normal bowel sounds, No tenderness, No mass Back Exam: normal inspection, normal range of motion, No CVA tenderness, No vertebral tenderness Extremity Exam: normal inspection, normal range of motion, pelvis stable Skin Exam: normal color, warm, dry, No rash Lymphatic Exam: No adenopathy Results - Labs Lab/Micro Results: Lab Results-Last 24 Hours 10/06/22 10/06/22 10/06/22 Range/Units 15:00 19:05 23:07 WBC (4.0-10.5) x10^3/uL RBC (4.1-5.4) x10^6/uL Hgb (12.0-16.0) g/dL Hct (35-47) % MCV (78-100) fL MCH (26-32) pg MCHC (32-36) g/dL RDW (11.5-14.0) % Plt Count (150-450) x10^3/uL MPV (7.5-11.0) fL Gran % (36.0-66.0) % Immature Gran % (Auto) (0.00-0.4) % Nucleat RBC Rel Count (0.00-0.1) % Eos # (Auto) (0-0.5) x10^3/uL Immature Gran # (Auto) (0.00-0.03) x10^3u/L Absolute Lymphs (auto) (1.0-4.6) x10^3/uL Absolute Monos (auto) (0.0-1.3) x10^3/uL Absolute Nucleated RBC (0.00-0.01) x10^3u/L Lymphocytes % (24.0-44.0) % Monocytes % (0.0-12.0) % Eosinophils % (0.00-5.0) % Basophils % (0.0-0.4) % Absolute Granulocytes (1.4-6.9) x10^3/uL Basophils # (0-0.4) x10^3/uL Sodium (137-145) mmol/L Potassium (3.5-5.1) mmol/L Chloride (98-107) mmol/L Carbon Dioxide (22-30) mmol/L Anion Gap (5-15) MEQ/L BUN (7-17) mg/dL Creatinine (0.52-1.04) mg/dL Estimated GFR ML/MIN Glucose (74-106) mg/dL POC Glucometer (74 to 106) mg/dL Lactic Acid (0.4-2.0) Calcium (8.4-10.2) mg/dL Total Bilirubin (0.2-1.3) mg/dL AST (14-36) U/L ALT (0-35) U/L Alkaline Phosphatase (38-126) U/L Troponin I < 0.012 < 0.012 (0.000-0.034) ng/mL NT-Pro-B Natriuret Pep (0-900) pg/mL Serum Total Protein (6.3-8.2) g/dL Albumin (3.5-5.0) g/dL Slides for Path Review YES 10/07/22 10/07/22 10/07/22 Range/Units 04:27 04:27 05:13 WBC 3.8 L (4.0-10.5) x10^3/uL RBC 3.57 L (4.1-5.4) x10^6/uL Hgb 8.0 L (12.0-16.0) g/dL Hct 27.4 L (35-47) % MCV 76.8 L (78-100) fL MCH 22.4 L (26-32) pg MCHC 29.2 L (32-36) g/dL RDW 18.9 H (11.5-14.0) % Plt Count 246 (150-450) x10^3/uL MPV 11.9 H (7.5-11.0) fL Gran % 77.0 H (36.0-66.0) % Immature Gran % (Auto) 0.3 (0.00-0.4) % Nucleat RBC Rel Count 0.0 (0.00-0.1) % Eos # (Auto) 0 (0-0.5) x10^3/uL Immature Gran # (Auto) 0.01 (0.00-0.03) x10^3u/L Absolute Lymphs (auto) 0.55 L (1.0-4.6) x10^3/uL Absolute Monos (auto) 0.30 (0.0-1.3) x10^3/uL Absolute Nucleated RBC 0.00 (0.00-0.01) x10^3u/L Lymphocytes % 14.7 L (24.0-44.0) % Monocytes % 8.0 (0.0-12.0) % Eosinophils % 0.0 (0.00-5.0) % Basophils % 0.0 (0.0-0.4) % Absolute Granulocytes 2.89 (1.4-6.9) x10^3/uL Basophils # 0 (0-0.4) x10^3/uL Sodium 131 L (137-145) mmol/L Potassium 3.6 (3.5-5.1) mmol/L Chloride 98 (98-107) mmol/L Carbon Dioxide 26 (22-30) mmol/L Anion Gap 11.1 (5-15) MEQ/L BUN 18 H (7-17) mg/dL Creatinine 0.59 (0.52-1.04) mg/dL Estimated GFR > 60.0 ML/MIN Glucose 315 H (74-106) mg/dL POC Glucometer (74 to 106) mg/dL Lactic Acid 1.6 (0.4-2.0) Calcium 8.3 L (8.4-10.2) mg/dL Total Bilirubin 0.40 (0.2-1.3) mg/dL AST 35 (14-36) U/L ALT 23 (0-35) U/L Alkaline Phosphatase 387 H (38-126) U/L Troponin I (0.000-0.034) ng/mL NT-Pro-B Natriuret Pep 1080 H (0-900) pg/mL Serum Total Protein 7.6 (6.3-8.2) g/dL Albumin 3.6 (3.5-5.0) g/dL Slides for Path Review YES 10/07/22 10/07/22 Range/Units 07:18 11:50 WBC (4.0-10.5) x10^3/uL RBC (4.1-5.4) x10^6/uL Hgb (12.0-16.0) g/dL Hct (35-47) % MCV (78-100) fL MCH (26-32) pg MCHC (32-36) g/dL RDW (11.5-14.0) % Plt Count (150-450) x10^3/uL MPV (7.5-11.0) fL Gran % (36.0-66.0) % Immature Gran % (Auto) (0.00-0.4) % Nucleat RBC Rel Count (0.00-0.1) % Eos # (Auto) (0-0.5) x10^3/uL Immature Gran # (Auto) (0.00-0.03) x10^3u/L Absolute Lymphs (auto) (1.0-4.6) x10^3/uL Absolute Monos (auto) (0.0-1.3) x10^3/uL Absolute Nucleated RBC (0.00-0.01) x10^3u/L Lymphocytes % (24.0-44.0) % Monocytes % (0.0-12.0) % Eosinophils % (0.00-5.0) % Basophils % (0.0-0.4) % Absolute Granulocytes (1.4-6.9) x10^3/uL Basophils # (0-0.4) x10^3/uL Sodium (137-145) mmol/L Potassium (3.5-5.1) mmol/L Chloride (98-107) mmol/L Carbon Dioxide (22-30) mmol/L Anion Gap (5-15) MEQ/L BUN (7-17) mg/dL Creatinine (0.52-1.04) mg/dL Estimated GFR ML/MIN Glucose (74-106) mg/dL POC Glucometer 227 H 162 H (74 to 106) mg/dL Lactic Acid (0.4-2.0) Calcium (8.4-10.2) mg/dL Total Bilirubin (0.2-1.3) mg/dL AST (14-36) U/L ALT (0-35) U/L Alkaline Phosphatase (38-126) U/L Troponin I (0.000-0.034) ng/mL NT-Pro-B Natriuret Pep (0-900) pg/mL Serum Total Protein (6.3-8.2) g/dL Albumin (3.5-5.0) g/dL Slides for Path Review Accuchecks Date 10/07/22 Date 10/07/22 - Radiology Impressions Radiology Exams & Impressions: Radiology Procedures Category Date Time Status CHEST 1 VIEW (PORTABLE) Stat Exams 10/06/22 14:45 Completed CHEST WITH CONTRAST [CT] Stat Exams 10/06/22 15:[address]/CHEST WITH CONTRAST Indication: Short of breath. Elevated d-dimer. Multiple contiguous axial images obtained through the chest using 100 cc Isovue 370 contrast. Comparison: August 15, 2022 Adequate opacification of the pulmonary arteries. However mild diffuse respiration artifact limits evaluation for pulmonary embolus. No obvious pulmonary embolus. Heart remains borderline enlarged. Aorta remains normal in course and caliber. No pathologic mediastinal/hilar lymphadenopathy. Stable chronic right hemidiaphragm elevation with adjacent subsegmental atelectasis. No suspicious pulmonary mass, infiltrate, effusion, or pneumothorax. Bony thorax intact again with minimal degenerative changes throughout the spine. Limited upper abdomen again demonstrates fatty liver. Stable tiny gallstones and left renal cyst as seen on August 18, 2022 exam. Impression: 1. Respiration artifact limits evaluation for pulmonary embolus. Again no obvious pulmonary embolus. 2. Again chronic right hemidiaphragm elevation with adjacent subsegmental atelectasis. 3. No new or acute cardiopulmonary abnormalities. 4. Incidental fatty liver, tiny gallstones, and left renal cyst. Assessment/Plan (1) COPD exacerbation Status: Resolved Code(s): J44.1 - CHRONIC OBSTRUCTIVE PULMONARY DISEASE W (ACUTE) EXACERBATION (2) Elevated d-dimer Status: Chronic Code(s): R79.89 - OTHER SPECIFIED ABNORMAL FINDINGS OF BLOOD CHEMISTRY (3) Atrial fibrillation with RVR Status: Chronic Code(s): I48.91 - UNSPECIFIED ATRIAL FIBRILLATION (4) CHF exacerbation Status: Resolved Qualifiers: Heart failure type: combined systolic and diastolic Qualified Code(s): I50.43 - Acute on chronic combined systolic (congestive) and diastolic (congestive) heart failure Code(s): I50.9 - HEART FAILURE, UNSPECIFIED Hospital Summary - Hospital Course Hospital Course: Allergies Allergy/AdvReac Type Severity Reaction Status Date / Time cyclobenzaprine HCl Allergy Mild Rash Verified 10/06/22 15:33 [From Flexeril] metoclopramide [From Reglan] Allergy Mild Rash Verified 10/06/22 15:33 Sulfa (Sulfonamide Allergy Mild Rash Verified 10/06/22 15:33 Antibiotics) [Sulfa(Sulfonamide Antibiotics)] adhesive Allergy Rash Verified 10/06/22 15:33 nalbuphine HCl [From Nubain] AdvReac Intermediate Stomach Verified 10/06/22 15:33 Cramps ciprofloxacin [From Cipro] AdvReac Mild Rash Verified 10/06/22 15:33 meperidine HCl [From Demerol] AdvReac Mild Vomiting Verified 10/06/22 15:33 Vital Signs (Last 24 hours) Temp Pulse Resp BP Pulse Ox 10/07/22 12:00 98.4 F 85 18 127/75 93 L 10/07/22 08:26 76 17 98 10/07/22 08:00 97.6 F 76 17 87/61 98 10/07/22 04:00 98.7 F 86 24 132/80 93 L 10/07/22 00:00 98.9 F 90 20 163/91 93 L 10/06/22 22:08 86 24 92 L Home Medications Medication Instructions Recorded Confirmed Last Taken Type Acetaminophen 325 mg [Tylenol 2 tab PO Q4HPRN PRN 10/06/22 10/06/22 Unknown History 325 mg] Albuterol Sulfate [Proventil Hfa] 2 puff IH Q6HPRN PRN 10/06/22 10/06/22 Unknown History Furosemide 40 mg [Lasix 40 40 mg PO DAILY 10/06/22 10/06/22 Unknown History MG] Hydrocodone/Acetaminophen 1 tab PO BID PRN 10/06/22 10/06/22 Unknown History [Hydrocodone-Acetamin 7.5-325] Hydrocortisone [Proctocort] 28.35 gm RC Q12H PRN PRN 10/06/22 10/06/22 Unknown History Insulin Aspart [NovoLOG Insulin] See Rx Instructions .ROUTE .COMPLEX 10/06/22 10/06/22 Unknown History Insulin Glargine,Hum.rec.anlog 42 units SQ HS 10/06/22 10/06/22 Unknown History [Insulin Glargine] Lorazepam 0.5 mg [Ativan 0.5 0.5 mg PO [id number] PRN 10/06/22 10/06/22 Unknown History MG] Magnesium Hydroxide 30 ml [Milk 30 ml PO DAILY PRN 10/06/22 10/06/22 Unknown History of Magnesia 30 ml] Metformin HCl 500 mg 500 mg PO DAILY 10/06/22 10/06/22 Unknown History [Glucophage 500 MG] Potassium Chloride 10 meq PO DAILY 10/06/22 10/06/22 Unknown History Current Medications Discontinued Medications Generic Name Dose Route Start Last Admin Trade Name Freq PRN Reason Stop Dose Admin Acetaminophen 650 mg 10/07/22 07:44 Acetaminophen 325 Mg Tablet PO 11/06/22 07:43 Q4HPRN PRN PAIN Hydrocodone Bitart/Acetaminophen 1 tab 10/07/22 00:51 10/07/22 01:00 Hydrocodone /Apap 7.5/325 Mg 1 Each Tablet PO 10/12/22 00:50 1 tab BID PRN PRN Administration PAIN Hydrocodone Bitart/Acetaminophen 1 tab 10/07/22 07:44 Hydrocodone /Apap 7.5/325 Mg 1 Each Tablet PO 10/12/22 07:43 BID PRN PAIN Albuterol Sulfate 4 puff 10/06/22 19:00 10/06/22 23:21 Albuterol Common Canister Inhaler 11/05/22 18:59 Not Given QIDRT [facility] Albuterol Sulfate 4 puff 10/07/22 07:00 10/07/22 07:34 Albuterol Common Canister Inhaler 11/06/22 06:59 4 puff BIDRT [facility] Administration Albuterol Sulfate 2 puff 10/07/22 07:44 Albuterol Common Canister Inhaler 11/06/22 07:43 Q6HPRN PRN SHORTNESS OF BREATH Apixaban 5 mg 10/07/22 00:02 10/07/22 08:34 Apixaban 2.5 Mg Tablet PO 11/06/22 00:01 5 mg BID MITCH Administration Carvedilol 6.25 mg 10/07/22 00:01 10/07/22 00:50 Carvedilol 12.5 Mg Tablet PO 11/06/22 00:00 6.25 mg BID MITCH Administration Carvedilol 6.25 mg 10/07/22 10:00 10/07/22 08:57 Carvedilol 6.25 Mg Tablet PO 11/06/22 09:59 6.25 mg BID MITCH Administration Methylprednisolone Sodium 0 mg 10/06/22 14:44 10/06/22 15:10 Succinate 125 mg/ Sterile IV 10/06/22 14:45 125 mg Water 2 ml STAT ONE Administration Diltiazem HCl 120 mg 10/07/22 10:00 10/07/22 08:33 Diltiazem Hcl Cd 120 Mg Cap.Sr.24h PO 11/06/22 09:59 120 mg DAILY MITCH Administration Duloxetine HCl 60 mg 10/07/22 10:00 10/07/22 08:31 Duloxetine Hcl 30 Mg Cap PO 11/06/22 09:59 60 mg DAILY MITCH Administration Enoxaparin Sodium 130 mg 10/06/22 23:00 10/07/22 00:49 Enoxaparin Sodium 150 Mg/Ml Syringe 1 mg/kg (130 mg) 11/05/22 22:59 130 mg SQ Administration Q24H MITCH Furosemide 40 mg 10/06/22 15:45 10/06/22 15:55 Furosemide 40 Mg/4 Ml Vial IV 10/06/22 15:46 40 mg STAT ONE Administration Furosemide Confirm 10/06/22 15:55 Furosemide 40 Mg/4 Ml Vial Administered 10/06/22 15:56 Dose 40 mg .ROUTE .STK-MED ONE Furosemide 40 mg 10/07/22 06:00 10/07/22 06:32 Furosemide 40 Mg/4 Ml Vial IV 11/06/22 05:59 40 mg Q12H MITCH Administration Furosemide 40 mg 10/07/22 10:00 Furosemide 40 Mg Tablet PO 11/06/22 09:59 DAILY MITCH Sodium Chloride 1,000 mls @ 50 mls/hr 10/06/22 14:45 10/06/22 15:06 Sodium Chloride 0.9% 1000 Ml IV 11/05/22 14:44 50 mls/hr .Q20H MITCH Administration Ceftriaxone Sodium/Dextrose 1 g in 50 mls @ 100 mls/hr 10/06/22 14:44 10/06/22 16:47 Rocephin 1 Gm-D5w 50 Ml Bag IV 10/06/22 15:13 Infused STAT STA Infusion Ceftriaxone Sodium/Dextrose Confirm 10/06/22 15:05 Rocephin 1 Gm-D5w 50 Ml Bag Administered 10/06/22 15:06 Dose 1 g in 50 mls @ ud IV .STK-MED ONE Sodium Chloride 1,000 mls @ 0 mls/hr 10/06/22 17:45 Sodium Chloride 0.9% 1000 Ml IV 11/05/22 17:44 .Q0M MITCH KVO Azithromycin 500 mg in 250 mls @ 250 mls/hr 10/06/22 23:30 10/07/22 00:48 Zithromax 500 Mg/ 250 Ml Nacl Premix IV 11/05/22 23:29 250 mls/hr Q24H22 MITCH Administration Ceftriaxone Sodium/Dextrose 1 g in 50 mls @ 100 mls/hr 10/07/22 10:00 10/07/22 08:58 Rocephin 1 Gm-D5w 50 Ml Bag IV 10/10/22 09:59 100 mls/hr Q24H10 MITCH Administration Insulin Glargine 42 unit 10/07/22 00:05 10/07/22 00:48 Insulin Glargine 1 Unit SQ 11/06/22 00:04 42 unit HS MITCH Administration Isosorbide Mononitrate 60 mg 10/07/22 10:00 10/07/22 08:34 Isosorbide Mononitrate 60 Mg Tab PO 11/06/22 09:59 60 mg DAILY MITCH Administration Lactobacillus Acidophilus 1 tab 10/07/22 10:00 10/07/22 08:32 Lactobacillus Acidophilus 1 Tab Tablet PO 11/06/22 09:59 1 tab DAILY MITCH Administration Levothyroxine Sodium 25 mcg 10/07/22 10:00 10/07/22 08:34 Levothyroxine Sodium 25 Mcg Tablet PO 11/06/22 09:59 25 mcg DAILY MITCH Administration Lisinopril 2.5 mg 10/07/22 10:00 10/07/22 08:33 Lisinopril 5 Mg Tablet PO 11/06/22 09:59 2.5 mg DAILY MITCH Administration Loperamide HCl 4 mg 10/07/22 07:44 Loperamide Hcl 2 Mg Capsule PO 11/06/22 07:43 Q12H PRN PRN DIARRHEA Lorazepam 0.5 mg 10/07/22 00:03 10/07/22 01:04 Lorazepam 0.5 Mg Tablet PO 11/06/22 00:02 0.5 mg Q12H PRN PRN Administration ANXIETY Magnesium Hydroxide 30 ml 10/07/22 07:44 Magnesium Hydroxide 30 Ml Udcup PO 11/06/22 07:43 QDP PRN CONSTIPATION Magnesium Oxide 800 mg 10/07/22 10:00 10/07/22 08:33 Magnesium Oxide 400 Mg Tablet PO 11/06/22 09:59 800 mg DAILY MITCH Administration Meclizine HCl 25 mg 10/07/22 07:44 Meclizine Hcl 25 Mg Tablet PO 11/06/22 07:43 Q8H PRN PRN DIZZINESS Metformin HCl 500 mg 10/07/22 10:00 10/07/22 08:32 Metformin Hcl 500 Mg Tablet PO 11/06/22 09:59 500 mg DAILY MITCH Administration Methylprednisolone Sodium Succinate Confirm 10/06/22 15:05 Methylprednis Sod Succ 125 Mg/2 Ml Vial Administered 10/06/22 15:06 Dose 125 mg .ROUTE .STK-MED ONE Miscellaneous Information 1 each 10/07/22 08:30 Medication Intervention 1 Each Each 11/06/22 08:29 .RN TO CHECK MITCH Miscellaneous Information 1 each 10/07/22 08:30 Medication Intervention 1 Each Each 11/06/22 08:29 .RN TO CHECK MITCH Miscellaneous Information 1 each 10/07/22 08:30 Medication Intervention 1 Each Each 11/06/22 08:29 .RN TO CHECK MITCH Miscellaneous Information 1 each 10/07/22 09:00 Medication Intervention 1 Each Each 11/06/22 08:59 .RN TO CHECK MITCH Morphine Sulfate 4 mg 10/06/22 15:39 10/06/22 15:48 Morphine Sulfate 4 Mg/Ml Injection IV 10/06/22 15:40 4 mg STAT ONE Administration Morphine Sulfate Confirm 10/06/22 15:45 Morphine Sulfate 4 Mg/Ml Injection Administered 10/06/22 15:46 Dose 4 mg .ROUTE .STK-MED ONE Nitroglycerin 0.4 mg 10/07/22 07:44 Nitroglycerin 0.4 Mg Tablet Bottle SL 11/06/22 07:43 Q5MIN PRN MR X 3 PRN CHEST PAIN Ondansetron HCl 4 mg 10/06/22 15:53 10/06/22 15:55 Ondansetron Hcl 4 Mg/2 Ml Vial IV 10/06/22 15:54 4 mg STAT ONE Administration Ondansetron HCl Confirm 10/06/22 15:55 Ondansetron Hcl 4 Mg/2 Ml Vial Administered 10/06/22 15:56 Dose 4 mg .ROUTE .STK-MED ONE Ondansetron HCl 4 mg 10/06/22 17:34 Ondansetron Hcl 4 Mg/2 Ml Vial IV 11/05/22 17:33 Q6H PRN PRN NAUSEA/VOMITING Pantoprazole Sodium 40 mg 10/07/22 10:00 10/07/22 08:34 Protonix (Pantoprazole) 40 Mg Tablet PO 11/06/22 09:59 40 mg BID MITCH Administration Potassium Chloride 10 meq 10/07/22 10:00 10/07/22 08:33 Potassium Chloride Tab 10 Meq Tab PO 11/06/22 09:59 10 meq DAILY MITCH Administration Primidone 50 mg 10/07/22 00:07 10/07/22 15:54 Primidone 50 Mg Tablet PO 11/06/22 00:06 50 mg TID MITCH Administration Ranolazine 500 mg 10/07/22 00:09 10/07/22 08:32 Ranolazine 500 Mg Tab.Sr.12h PO 11/06/22 00:08 500 mg Q12HT MITCH Administration Sterile Water Confirm 10/06/22 15:04 Water For Injection,Sterile 10 Ml Vial Administered 10/06/22 15:05 Dose 10 ml IJ .STK-MED ONE Intake & Output (Last 24 hours) 10/05/22 10/06/22 10/07/22 10/08/22 11:59 11:59 11:59 11:59 Intake Total 1244 240 Output Total 5250 Balance -4006 240 Weight 126 kg Microbiology Results (Last 24 hours) 10/06/22 16:14 Sputum - Expectorant Gram Stain - Pending 10/06/22 16:14 Sputum - Expectorant Sputum Culture - Pending 10/06/22 15:05 Blood Blood Culture Gram Stain - Pending 10/06/22 15:05 Blood Blood Culture - Pending 10/06/22 15:00 Blood Blood Culture Gram Stain - Pending 10/06/22 15:00 Blood Blood Culture - Pending Laboratory Results (Last 24 hours) 10/07/22 10/07/22 10/07/22 11:50 07:18 05:13 WBC RBC Hgb Hct MCV MCH MCHC RDW Plt Count MPV Gran % Immature Gran % (Auto) Nucleat RBC Rel Count Eos # (Auto) Immature Gran # (Auto) Absolute Lymphs (auto) Absolute Monos (auto) Absolute Nucleated RBC Lymphocytes % Monocytes % Eosinophils % Basophils % Absolute Granulocytes Basophils # Sodium Potassium Chloride Carbon Dioxide Anion Gap BUN Creatinine Estimated GFR Glucose POC Glucometer 162 H 227 H Lactic Acid 1.6 Calcium Total Bilirubin AST ALT Alkaline Phosphatase Troponin I NT-Pro-B Natriuret Pep Serum Total Protein Albumin Slides for Path Review 10/07/22 10/07/22 10/06/22 04:27 04:27 23:07 WBC 3.8 L RBC 3.57 L Hgb 8.0 L Hct 27.4 L MCV 76.8 L MCH 22.4 L MCHC 29.2 L RDW 18.9 H Plt Count 246 MPV 11.9 H Gran % 77.0 H Immature Gran % (Auto) 0.3 Nucleat RBC Rel Count 0.0 Eos # (Auto) 0 Immature Gran # (Auto) 0.01 Absolute Lymphs (auto) 0.55 L Absolute Monos (auto) 0.30 Absolute Nucleated RBC 0.00 Lymphocytes % 14.7 L Monocytes % 8.0 Eosinophils % 0.0 Basophils % 0.0 Absolute Granulocytes 2.89 Basophils # 0 Sodium 131 L Potassium 3.6 Chloride 98 Carbon Dioxide 26 Anion Gap 11.1 BUN 18 H Creatinine 0.59 Estimated GFR > 60.0 Glucose 315 H POC Glucometer Lactic Acid Calcium 8.3 L Total Bilirubin 0.40 AST 35 ALT 23 Alkaline Phosphatase 387 H Troponin I < 0.012 NT-Pro-B Natriuret Pep 1080 H Serum Total Protein 7.6 Albumin 3.6 Slides for Path Review YES 10/06/22 10/06/22 19:05 15:00 WBC RBC Hgb Hct MCV MCH MCHC RDW Plt Count MPV Gran % Immature Gran % (Auto) Nucleat RBC Rel Count Eos # (Auto) Immature Gran # (Auto) Absolute Lymphs (auto) Absolute Monos (auto) Absolute Nucleated RBC Lymphocytes % Monocytes % Eosinophils % Basophils % Absolute Granulocytes Basophils # Sodium Potassium Chloride Carbon Dioxide Anion Gap BUN Creatinine Estimated GFR Glucose POC Glucometer Lactic Acid Calcium Total Bilirubin AST ALT Alkaline Phosphatase Troponin I < 0.012 NT-Pro-B Natriuret Pep Serum Total Protein Albumin Slides for Path Review YES Orders (Last 24 hours) Category Date Time Status Bedrest with BRP/BSC ROUTINE Activity 10/06/22 17:35 Completed 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 Care 10/06/22 17:35 Completed IV Care Q6H Care 10/06/22 17:34 Completed Intake and Output Q12H Care 10/06/22 17:34 Completed Isolation, Initiate & Maintain Q6H Care 10/06/22 17:34 Completed POCT Glucose Check ACHS Care 10/06/22 17:[address] in Observation ROUTINE Care 10/06/22 17:34 Completed Vital Signs Q4H Care 10/06/22 17:34 Completed Weight,Daily 0600 Care 10/06/22 17:34 Completed Cardio-Pulmonary Rehab .as ordered Cons 10/06/22 21:24 Completed Consistent Carbohydrate Diet 2000 Calorie Diet 10/07/22 Breakfast Completed Discharge Routine Discharge 10/07/22 13:15 Ordered CBC W DIFF AM.LAB Lab 10/07/22 04:27 Completed CMP AM.LAB Lab 10/07/22 04:27 Completed Lactic Acid AM.LAB Lab 10/07/22 05:13 Completed NT PRO BNP AM.LAB Lab 10/07/22 04:27 Completed POCT GLUCOSE Stat Lab 10/07/22 07:18 Completed POCT GLUCOSE Stat Lab 10/07/22 11:50 Completed TROPONIN Q4H Lab 10/06/22 19:05 Completed TROPONIN Q4H Lab 10/06/22 23:07 Completed Acetaminophen 325 mg [Tylenol 325 mg] Med 10/07/22 07:44 Discontinued 650 mg PO Q4HPRN PRN Albuterol Common Canister [Ventolin Common Canister* Med 10/07/22 07:44 Discontinued ] 2 puff IH Q6HPRN PRN Albuterol Common Canister [Ventolin Common Canister* Med 10/07/22 07:00 Discontinued ] 4 puff IH BIDRT Albuterol Common Canister [Ventolin Common Canister* Med 10/06/22 19:00 Discontinued ] 4 puff IH QIDRT Apixaban [Eliquis 2.5 mg Tablet] Med 10/07/22 00:02 Discontinued 5 mg PO BID Azithromycin 500 mg/250 ml [Zithromax 500 MG/ 250 ML Med 10/06/22 23:30 Discontinued NaCl Premix] 500 mg in 250 ml IV Q24H22 Carvedilol [Coreg ] Med 10/07/22 10:00 Discontinued 6.25 mg PO BID Carvedilol 12.5 mg [Coreg 12.5 mg] Med 10/07/22 00:01 Discontinued 6.25 mg PO BID Ceftriaxone 1 GM/50 ML PREMIX* [ROCEPHIN 1 Gm-D5w 50 ml Med 10/07/22 10:00 Discontinued Bag] 1 g in 50 ml IV Q24H10 Diltiazem HCl Cd [Cardizem CD ] Med 10/07/22 10:00 Discontinued 120 mg PO DAILY Duloxetine HCl 30 mg [Cymbalta 30 MG Capsule] Med 10/07/22 10:00 Discontinued 60 mg PO DAILY Enoxaparin Sodium [Enoxaparin Sodium] Med 10/06/22 23:00 Discontinued 130 mg SQ Q24H Fluticasone Propion/Salmeterol [Fluticasone-Salmeterol Med 10/07/22 07:00 Discontinued 250-50] 1 each IH BIDRT Fluticasone Propion/Salmeterol [Fluticasone-Salmeterol Med 10/07/22 19:00 Discontinued 250-50] 1 each IH BIDRT Furosemide 40 mg [Lasix 40 MG] Med 10/07/22 10:00 Discontinued 40 mg PO DAILY Furosemide 40 mg/4 ml [Lasix 40 MG/4 ML] Med 10/07/22 06:00 Discontinued 40 mg IV Q12H Hydrocodone /APAP 7.5/325 mg [[place] 7.5/325 mg Tab Med 10/07/22 07:44 Discontinued ] 1 tab PO BID PRN Hydrocodone /APAP 7.5/325 mg [[place] 7.5/325 mg Tab Med 10/07/22 00:51 Discontinued ] 1 tab PO BID PRN PRN Insulin Glargine [Lantus Insulin] Med 10/07/22 00:05 Discontinued 42 unit SQ HS Isosorbide Mononitrate 60 mg [Imdur 60MG] Med 10/07/22 10:00 Discontinued 60 mg PO DAILY Lactobacillus Acidophilus [Acidophilus TABLET] Med 10/07/22 10:00 Discontinued 1 tab PO DAILY Levothyroxine Sodium 25 Mcg [Synthroid 25 Mcg] Med 10/07/22 10:00 Discontinued 25 mcg PO DAILY Lisinopril 5 mg [Zestril 5 MG] Med 10/07/22 10:00 Discontinued 2.5 mg PO DAILY Loperamide HCl 2 mg [Imodium 2 mg] Med 10/07/22 07:44 Discontinued 4 mg PO Q12H PRN PRN Lorazepam 0.5 mg [Ativan 0.5 MG] Med 10/07/22 00:03 Discontinued 0.5 mg PO Q12H PRN PRN Magnesium Hydroxide 30 ml [Milk of Magnesia 30 ml Med 10/07/22 07:44 Discontinued ] 30 ml PO QDP PRN Magnesium Oxide 400 mg [Mag-Ox 400] Med 10/07/22 10:00 Discontinued 800 mg PO DAILY Meclizine HCl 25 mg [Antivert 25 mg] Med 10/07/22 07:44 Discontinued 25 mg PO Q8H PRN PRN Medication Intervention Med 10/07/22 08:30 Discontinued 1 each .RN TO CHECK Medication Intervention Med 10/07/22 08:30 Discontinued 1 each MC .RN TO CHECK Medication Intervention Med 10/07/22 08:30 Discontinued 1 each .RN TO CHECK Medication Intervention Med 10/07/22 09:00 Discontinued 1 each MC .RN TO CHECK Metformin HCl 500 mg [Glucophage 500 MG] Med 10/07/22 10:00 Discontinued 500 mg PO DAILY NaCl 0.9% 1000 ml [Sodium Chloride 0.9% 1000 ML] 1,000 Med 10/06/22 17:45 Discontinued ml IV KVO Nitroglycerin 0.4 mg Tablet [Nitrostat 0.4 MG Tablet Med 10/07/22 07:44 Discontinued ] 0.4 mg SL Q5MIN PRN MR X 3 PRN Ondansetron HCl 4 mg/2 ml [Zofran 4 MG/2 ML VIAL] Med 10/06/22 17:34 Discontinued 4 mg IV Q6H PRN PRN PANTOPRAZOLE 40 mg Tablet [Protonix 40MG Tablet] Med 10/07/22 10:00 Discontinued 40 mg PO BID Potassium Chloride Tab* [Klor Con] Med 10/07/22 10:00 Discontinued 10 meq PO DAILY Primidone 50 MG [Mysoline 50Mg] Med 10/07/22 00:07 Discontinued 50 mg PO TID Ranolazine 500 MG [Ranexa 500 MG] Med 10/07/22 00:09 Discontinued 500 mg PO Q12HT EKG REPEAT IN AM RT 10/06/22 17:34 Completed Oxygen Nasal Cannula 2 lpm RT 10/06/22 21:39 Completed Pulse Oximetry .continuos RT 10/06/22 21:39 Completed Respiratory MDI BID RT 10/07/22 07:00 Completed Respiratory Therapy Assessment DAILY RT 10/06/22 21:40 Completed Respiratory Therapy Consult ROUTINE RT 10/06/22 17:34 Completed Patient Care Notes (Last 24 hours) 10/07/22 13:18 Case Management Note by Lyric Hauser [facility] DELIVERED ROLLATOR Initialized on 10/07/22 13:18 - END OF NOTE 10/07/22 11:58 Respiratory Note by Veronica Davis PT PLACED ON ROOM AIR. O2 SAT 93%. Initialized on 10/07/22 11:58 - END OF NOTE 10/07/22 11:48 Case Management Note by Lyric Hauser PRIMARY RN GIVEN PULSE OX TO SEND HOME WITH PATIENT AT TIME OF DC. Initialized on 10/07/22 11:48 - END OF NOTE 10/07/22 11:42 Case Management Note by Lyric Hauser Addendum entered by Lyric Hauser 10/07/22 11:50: ORDER FOR ROLLATOR SUBMITTED Original Note: S/W NIA FROM [facility]. PATIENT HAS HAD 2 WALKERS ORDERED BUT PATIENT HAS NEVER ANSWERED THEIR CALLS/CALLED THEM BACK TO [facility] GET THEM DELIVERED. WILL SEND NEW ORDER IN FOR ROLLATOR THIS WAS THE LAST THAT WAS ORDERED. NIA NOTIFIED- HE WILL TRY TO HAVE IT DELIVERED TODAY PRIOR TO DC Initialized on 10/07/22 11:42 - END OF NOTE 10/07/22 11:37 Case Management Note by Lyric Hauser PATIENT HAS INTRPID C. THEY WERE NOTIFIED SHE IS HERE OBS. THEY WILL NEED CONTACTED AT TIME OF DC AT [phone]. THEY WILL NEED FAXED THE DC INSTRUCTIONS, DC MED LIST AND DC SUMMARY ( IF AVAILABLE) TO [phone] Initialized on 10/07/22 11:37 - END OF NOTE - Vitals & Intake/Output Vital Signs: Vital Signs Temperature 98.4 F 10/07/22 12:00 Pulse Rate 85 10/07/22 12:00 Respiratory Rate 18 10/07/22 12:00 Blood Pressure 127/75 10/07/22 12:00 O2 Sat by Pulse Oximetry 93 L 10/07/22 12:00 Intake & Output: Intake & Output 10/05/22 10/06/22 10/07/22 10/08/22 11:59 11:59 11:59 11:59 Intake Total 1244 240 Output Total 5250 Balance -4006 240 Weight 126 kg - Lab Result Diagrams: 10/07/22 04:27 10/07/22 04:27 Lab Results-Last 24 Hrs: Lab Results-Last 24 Hours 10/06/22 10/06/22 10/06/22 Range/Units 15:00 19:05 23:07 WBC (4.0-10.5) x10^3/uL RBC (4.1-5.4) x10^6/uL Hgb (12.0-16.0) g/dL Hct (35-47) % MCV (78-100) fL MCH (26-32) pg MCHC (32-36) g/dL RDW (11.5-14.0) % Plt Count (150-450) x10^3/uL MPV (7.5-11.0) fL Gran % (36.0-66.0) % Immature Gran % (Auto) (0.00-0.4) % Nucleat RBC Rel Count (0.00-0.1) % Eos # (Auto) (0-0.5) x10^3/uL Immature Gran # (Auto) (0.00-0.03) x10^3u/L Absolute Lymphs (auto) (1.0-4.6) x10^3/uL Absolute Monos (auto) (0.0-1.3) x10^3/uL Absolute Nucleated RBC (0.00-0.01) x10^3u/L Lymphocytes % (24.0-44.0) % Monocytes % (0.0-12.0) % Eosinophils % (0.00-5.0) % Basophils % (0.0-0.4) % Absolute Granulocytes (1.4-6.9) x10^3/uL Basophils # (0-0.4) x10^3/uL Sodium (137-145) mmol/L Potassium (3.5-5.1) mmol/L Chloride (98-107) mmol/L Carbon Dioxide (22-30) mmol/L Anion Gap (5-15) MEQ/L BUN (7-17) mg/dL Creatinine (0.52-1.04) mg/dL Estimated GFR ML/MIN Glucose (74-106) mg/dL POC Glucometer (74 to 106) mg/dL Lactic Acid (0.4-2.0) Calcium (8.4-10.2) mg/dL Total Bilirubin (0.2-1.3) mg/dL AST (14-36) U/L ALT (0-35) U/L Alkaline Phosphatase (38-126) U/L Troponin I < 0.012 < 0.012 (0.000-0.034) ng/mL NT-Pro-B Natriuret Pep (0-900) pg/mL Serum Total Protein (6.3-8.2) g/dL Albumin (3.5-5.0) g/dL Slides for Path Review YES 10/07/22 10/07/22 10/07/22 Range/Units 04:27 04:27 05:13 WBC 3.8 L (4.0-10.5) x10^3/uL RBC 3.57 L (4.1-5.4) x10^6/uL Hgb 8.0 L (12.0-16.0) g/dL Hct 27.4 L (35-47) % MCV 76.8 L (78-100) fL MCH 22.4 L (26-32) pg MCHC 29.2 L (32-36) g/dL RDW 18.9 H (11.5-14.0) % Plt Count 246 (150-450) x10^3/uL MPV 11.9 H (7.5-11.0) fL Gran % 77.0 H (36.0-66.0) % Immature Gran % (Auto) 0.3 (0.00-0.4) % Nucleat RBC Rel Count 0.0 (0.00-0.1) % Eos # (Auto) 0 (0-0.5) x10^3/uL Immature Gran # (Auto) 0.01 (0.00-0.03) x10^3u/L Absolute Lymphs (auto) 0.55 L (1.0-4.6) x10^3/uL Absolute Monos (auto) 0.30 (0.0-1.3) x10^3/uL Absolute Nucleated RBC 0.00 (0.00-0.01) x10^3u/L Lymphocytes % 14.7 L (24.0-44.0) % Monocytes % 8.0 (0.0-12.0) % Eosinophils % 0.0 (0.00-5.0) % Basophils % 0.0 (0.0-0.4) % Absolute Granulocytes 2.89 (1.4-6.9) x10^3/uL Basophils # 0 (0-0.4) x10^3/uL Sodium 131 L (137-145) mmol/L Potassium 3.6 (3.5-5.1) mmol/L Chloride 98 (98-107) mmol/L Carbon Dioxide 26 (22-30) mmol/L Anion Gap 11.1 (5-15) MEQ/L BUN 18 H (7-17) mg/dL Creatinine 0.59 (0.52-1.04) mg/dL Estimated GFR > 60.0 ML/MIN Glucose 315 H (74-106) mg/dL POC Glucometer (74 to 106) mg/dL Lactic Acid 1.6 (0.4-2.0) Calcium 8.3 L (8.4-10.2) mg/dL Total Bilirubin 0.40 (0.2-1.3) mg/dL AST 35 (14-36) U/L ALT 23 (0-35) U/L Alkaline Phosphatase 387 H (38-126) U/L Troponin I (0.000-0.034) ng/mL NT-Pro-B Natriuret Pep 1080 H (0-900) pg/mL Serum Total Protein 7.6 (6.3-8.2) g/dL Albumin 3.6 (3.5-5.0) g/dL Slides for Path Review YES 10/07/22 10/07/22 Range/Units 07:18 11:50 WBC (4.0-10.5) x10^3/uL RBC (4.1-5.4) x10^6/uL Hgb (12.0-16.0) g/dL Hct (35-47) % MCV (78-100) fL MCH (26-32) pg MCHC (32-36) g/dL RDW (11.5-14.0) % Plt Count (150-450) x10^3/uL MPV (7.5-11.0) fL Gran % (36.0-66.0) % Immature Gran % (Auto) (0.00-0.4) % Nucleat RBC Rel Count (0.00-0.1) % Eos # (Auto) (0-0.5) x10^3/uL Immature Gran # (Auto) (0.00-0.03) x10^3u/L Absolute Lymphs (auto) (1.0-4.6) x10^3/uL Absolute Monos (auto) (0.0-1.3) x10^3/uL Absolute Nucleated RBC (0.00-0.01) x10^3u/L Lymphocytes % (24.0-44.0) % Monocytes % (0.0-12.0) % Eosinophils % (0.00-5.0) % Basophils % (0.0-0.4) % Absolute Granulocytes (1.4-6.9) x10^3/uL Basophils # (0-0.4) x10^3/uL Sodium (137-145) mmol/L Potassium (3.5-5.1) mmol/L Chloride (98-107) mmol/L Carbon Dioxide (22-30) mmol/L Anion Gap (5-15) MEQ/L BUN (7-17) mg/dL Creatinine (0.52-1.04) mg/dL Estimated GFR ML/MIN Glucose (74-106) mg/dL POC Glucometer 227 H 162 H (74 to 106) mg/dL Lactic Acid (0.4-2.0) Calcium (8.4-10.2) mg/dL Total Bilirubin (0.2-1.3) mg/dL AST (14-36) U/L ALT (0-35) U/L Alkaline Phosphatase (38-126) U/L Troponin I (0.000-0.034) ng/mL NT-Pro-B Natriuret Pep (0-900) pg/mL Serum Total Protein (6.3-8.2) g/dL Albumin (3.5-5.0) g/dL Slides for Path Review Micro Results-Entire Visit: Accuchecks Date 10/07/22 Date 10/07/22 - Radiology Exams Ordered Rad Exams-Entire Visit: Radiology Procedures Category Date Time Status CHEST 1 VIEW (PORTABLE) Stat Exams 10/06/22 14:45 Completed CHEST WITH CONTRAST [CT] Stat Exams 10/06/22 15:47 Completed - Procedures and Test Procedures and Tests throughout Hospitalization: Therapy Orders & Screens 10/06/22 14:44 BiPap/CPAP STAT Comment: 10/06/22 17:34 EKG REPEAT IN AM Comment: Respiratory Therapy Consult ROUTINE Comment: Reason For Exam: 10/06/22 21:39 Oxygen Nasal Cannula 2 lpm Comment: 10/06/22 21:40 Respiratory Therapy Assessment DAILY Comment: 10/07/22 07:00 Respiratory MDI BID Comment: - Discharge Discharge Date: 10/07/22 Disposition: HOME HEALTH SERVICE Condition: Fair Prescriptions: No Action Mesalamine [Pentasa] 500 mg PO BID Omeprazole 20 MG [Prilosec 20 mg] 20 mg PO BID Duloxetine HCl 60 mg PO DAILY Atorvastatin Calcium 10 mg PO DAILY Meclizine HCl 25 mg [Antivert 25 mg] 25 mg PO Q8H PRN PRN PRN Reason: Dizziness Levothyroxine Sodium 25 Mcg [Synthroid 25 Mcg] 25 mcg PO DAILY Isosorbide Mononitrate 60 mg [Imdur 60MG] 60 mg PO DAILY Saccharomyces Boulardii [Florastor] 250 mg PO BID Ranolazine 500 MG [Ranexa 500 MG] 500 mg PO BID Primidone 50 MG [Mysoline 50Mg] 50 mg PO TID Pravastatin Sodium 80 mg PO DAILY Nitroglycerin 0.4 mg Tablet [Nitrostat 0.4 MG Tablet] 0.4 mg SL Q5MIN PRN MR X 3 PRN PRN Reason: Chest Pain Magnesium Oxide 400 mg [Mag-Ox 400] 800 mg PO DAILY Loperamide HCl [Loperamide] 4 mg PO Q12H PRN PRN PRN Reason: Diarrhea lisinopriL [Zestril] 2.5 mg PO DAILY Fluticasone Propion/Salmeterol [Fluticasone-Salmeterol 250-50] 1 each IH BIDRT azaTHIOprine [Azathioprine] 50 mg PO BID Aripiprazole [Abilify] 2 mg PO DAILY Apixaban [Eliquis 5 mg Tablet] 5 mg PO BID Diltiazem HCl Cd [Cardizem CD ] 120 mg PO DAILY #30 cap Carvedilol [Coreg ] 6.25 mg PO BID #60 tablet Furosemide 40 mg [Lasix 40 MG] 40 mg PO DAILY Insulin Glargine,Hum.rec.anlog [Insulin Glargine] 42 units SQ HS Lorazepam 0.5 mg [Ativan 0.5 MG] 0.5 mg PO [id number] PRN PRN Reason: Anxiety Acetaminophen 325 mg [Tylenol 325 mg] 2 tab PO Q4HPRN PRN PRN Reason: Pain Albuterol Sulfate [Proventil Hfa] 2 puff IH Q6HPRN PRN PRN Reason: Shortness Of Breath Hydrocortisone [Proctocort] 28.35 gm RC Q12H PRN PRN PRN Reason: Hemorrhoids Potassium Chloride 10 meq PO DAILY Insulin Aspart [NovoLOG Insulin] See Rx Instructions .ROUTE .COMPLEX Hydrocodone/Acetaminophen [Hydrocodone-Acetamin 7.5-325] 1 tab PO BID PRN PRN Reason: Pain Metformin HCl 500 mg [Glucophage 500 MG] 500 mg PO DAILY Magnesium Hydroxide 30 ml [Milk of Magnesia 30 ml] 30 ml PO DAILY PRN PRN Reason: Constipation Instructions: COVID-19 (DC) Additional Instructions: IF YOU HAVE ANY TROUBLE AT HOME. [facility]- THEIR PHONE NUMBER IS ON YOUR [facility] AT HOME. Follow up with: CALVIN PALOMINO [Primary Care Provider] - 10/16/22 9:30 am
== END 2022-10-07 16:20 | disposition home health service (06) ==
LOC: ED 14:09 → MED SURG 21:01
PROVIDERS: ADMIT General Practice; ATTEND General Practice
DX: J44.1 Chronic obstructive pulmonary disease with (acute) exacerbation (principal); R79.89 Other specified abnormal findings of blood chemistry; I48.20 Chronic atrial fibrillation, unspecified; I11.0 Hypertensive heart disease with heart failure; I50.9 Heart failure, unspecified; E11.9 Type 2 diabetes mellitus without complications; R60.0 Localized edema; E78.5 Hyperlipidemia, unspecified; I25.10 Atherosclerotic heart disease of native coronary artery without angina pectoris; Z79.01 Long term (current) use of anticoagulants; Z79.899 Other long term (current) drug therapy; Z20.828 Contact with and (suspected) exposure to other viral communicable diseases
CPT/HCPCS: 0241U; 36000; 36415; 71045; 71260; 80053; 82947; 83605; 83735; 83880; 84484; 85025; 85379; 85610; 85730; 87040; 93005; 94640; 94762; 96365; 96374; 96375; 99285; 93268; J0456; J0696; J1650; J1940; J2270; J2405; J2930; A9270-GY; G0378

== ENCOUNTER 2022-10-20 16:15 | Observation (INO) | payer MEDICARE ==
--- NOTE | 2022-10-20 16:28 | ERPHSYRPT ---
- History of Present Illness Time Seen by Provider: 10/20/22 16:28 Source: patient Exam Limitations: no limitations Physician History: This is a morbidly obese 62-year-old white female patient of Dr. Christopher who has oxygen dependent COPD, CHF, hyperlipidemia, gastroesophageal reflux disease, hypothyroidism, insulin-dependent diabetes, peripheral neuropathy, coronary a rtery disease and is on Eliquis, sleep apnea, hypertension and fibromyalgia. Patient is here often to the emergency department in our hospital because of issues with cough and shortness of breath. She has significant COPD and CHF symptoms. Patient was admitted to the hospital here at [facility] on 10/06/2022 and discharged on 10/07/2022. She went home and in the last 2 to 3 days her symptoms of nonproductive cough, bilateral lower extremity swelling and shortness of air have increased. Upon arrival to the emergency department, the patient's room air oxygen saturation level is 98%. She denies chest pain. She denies abdominal pain. She has not had any vomiting or diarrhea symptoms. Timing/Duration: day(s), worse (2 to 3 days) Cough Quality/Degree: mild, dry cough Possible Cause: frequent episodes Modifying Factors: Improves With: activity, coughing, oxygen Associated Symptoms: cough, shortness of breath, No fever, No chest pain/sor eness, No sore throat Allergies/Adverse Reactions: cyclobenzaprine HCl [From Flexeril] Allergy (Mild, Verified 10/20/22 16:23) Rash metoclopramide [From Reglan] Allergy (Mild, Verified 10/20/22 16:23) Rash Sulfa (Sulfonamide Antibiotics) [Sulfa(Sulfonamide Antibiotics)] Allergy (Mild, Verified 10/20/22 16:23) Rash adhesive Allergy (Verified 10/20/22 16:23) Rash nalbuphine HCl [From Nubain] Adverse Reaction (Intermediate, Verified 10/20/22 16:23) Stomach Cramps patient states she had stomach "burning" and that her legs felt like "rubber bands" ciprofloxacin [From Cipro] Adverse Reaction (Mild, Verified 10/20/22 16:23) Rash meperidine HCl [From Demerol] Adverse Reaction (Mild, Verified 10/20/22 16:23) Vomiting Home Medications: Duloxetine HCl 60 mg PO DAILY 03/17/16 [History] Mesalamine [Pentasa] 500 mg PO BID 03/17/16 [History] Omeprazole 20 MG [Prilosec 20 mg] 20 mg PO BID 03/17/16 [History] Atorvastatin Calcium 10 mg PO DAILY 01/25/18 [History] Meclizine HCl 25 mg [Antivert 25 mg] 25 mg PO Q8H PRN PRN 12/05/19 [ History] Isosorbide Mononitrate 60 mg [Imdur 60MG] 60 mg PO DAILY 12/31/20 [History] Levothyroxine Sodium 25 Mcg [Synthroid 25 Mcg] 25 mcg PO DAILY 12/31/20 [History] Aripiprazole [Abilify] 2 mg PO DAILY 06/03/22 [History] Fluticasone Propion/Salmeterol [Fluticasone-Salmeterol 250-50] 1 each IH BIDRT 06/03/22 [History] Loperamide HCl [Loperamide] 4 mg PO Q12H PRN PRN 06/03/22 [History] Magnesium Oxide 400 mg [Mag-Ox 400] 800 mg PO DAILY 06/03/22 [History] Nitroglycerin 0.4 mg Tablet [Nitrostat 0.4 MG Tablet] 0.4 mg SL Q5MIN PRN MR X 3 PRN 06/03/22 [History] Pravastatin Sodium 80 mg PO DAILY 06/03/22 [History] Primidone 50 MG [Mysoline 50Mg] 50 mg PO TID 06/03/22 [History] Ranolazine 500 MG [Ranexa 500 MG] 500 mg PO BID 06/03/22 [History] Saccharomyces Boulardii [Florastor] 250 mg PO BID 06/03/22 [History] azaTHIOprine [Azathioprine] 50 mg PO BID 06/03/22 [History] lisinopriL [Zestril] 2.5 mg PO DAILY 06/03/22 [History] Apixaban [Eliquis 5 mg Tablet] 5 mg PO BID 08/16/22 [History] Acetaminophen 325 mg [Tylenol 325 mg] 2 tab PO Q4HPRN PRN 10/06/22 [History] Albuterol Sulfate [Proventil Hfa] 2 puff IH Q6HPRN PRN 10/06/22 [History] Furosemide 40 mg [Lasix 40 MG] 40 mg PO DAILY 10/06/22 [History] Hydrocodone/Acetaminophen [Hydrocodone-Acetamin 7.5-325] 1 tab PO BID PRN 10/06/22 [History] Hydrocortisone [Proctocort] 28.35 gm RC Q12H PRN PRN 10/06/22 [History] Insulin Aspart [NovoLOG Insulin] See Rx Instructions .ROUTE .COMPLEX 10/06/22 [History] Insulin Glargine,Hum.rec.anlog [Insulin Glargine] 42 units SQ HS 10/06/22 [History] Lorazepam 0.5 mg [Ativan 0.5 MG] 0.5 mg PO [id number] PRN 10/06/22 [History] Magnesium Hydroxide 30 ml [Milk of Magnesia 30 ml] 30 ml PO DAILY PRN 10/06/22 [History] Metformin HCl 500 mg [Glucophage 500 MG] 500 mg PO DAILY 10/06/22 [History] Potassium Chloride 10 meq PO DAILY 10/06/22 [History] Hx Tetanus, Diphtheria Vaccination/Date Given: No (unknown) Hx Influenza Vaccination/Date Given: No Hx Pneumococcal Vaccination/Date Given: No Travel Risk - International Travel Have you traveled outside of the country in past 3 weeks: No - Coronavirus Screening Are you exhibiting any of the following symptoms?: Yes Symptoms: Cough: New Onset, Shortness of Breath - Vaccine Status Have you recieved a Covid-19 vaccination: No - Review of Systems Constitutional: Weakness Eyes: No Symptoms Ears, Nose, & Throat: No Symptoms Respiratory: Cough, Dyspnea Cardiac: No Symptoms Abdominal/Gastrointestinal: No Symptoms Genitourinary Symptoms: No Symptoms Musculoskeletal: No Symptoms Neurological: No Symptoms Psychological: No Symptoms Endocrine: No Symptoms Hematologic/Lymphatic: No Symptoms Immunological/Allergic: No Symptoms All Other Systems: Reviewed and Negative - Past Medical History Pertinent Past Medical History: Yes Neurological History: Migraines, Peripheral Neuropathy ENT History: Cataracts Cardiac History: Coronary Artery Disease, High Cholesterol, Hypertension, Myocardial Infarction ([place]) Respiratory History: Asthma, Bronchitis, CHF, COPD, Sleep Apnea Endocrine Medical History: Diabetes Type II Musculoskeletal History: Arthritis, Degenerative Disk Disease, Fibromyalgia, O steoarthritis GI Medical History: Crohns Disease, Diverticulitis, GERD, Irritable Bowel History: No Pertinent History Psycho-Social History: Anxiety, Depression Female Reproductive Disorders: No Pertinent History Other Medical History: HX UTI, HX Yeast Infection, Neuropathy, degenerative joint disease - Past Surgical History Past Surgical History: Yes Neuro Surgical History: No Pertinent History Cardiac: Cardiac Catheterization Respiratory: No Pertinent History Gastrointestinal: No Pertinent History Genitourinary: No Pertinent History Musculoskeletal: No Pertinent History Female Surgical History: Dilation & Curettage, Section, Tubal Ligation Other Surgical History: KIDNEY STONE REMOVAL, right 2nd toe amputated 2021. heart cath x3, no stents, clot removal rt thigh artery - Social History Smoking Status: Former smoker How long have you smoked: years Exposure to second hand smoke: No Alcohol Use: None Drug Use: none Patient Lives Alone: No Significant Family History: no pertinent family hx, diabetes, hypertension - Nursing Vital Signs Nursing Vital Signs: Initial Vital Signs Temperature 97.2 F 10/20/22 16:21 Pulse Rate 86 10/20/22 16:21 Respiratory Rate 38 H 10/20/22 16:21 Blood Pressure 170/110 10/20/22 16:21 O2 Sat by Pulse Oximetry 96 10/20/22 16:21 Pain Scale Pain Intensity 4 - Physical Exam General Appearance: mild distress, alert, anxiety, obese Eye Exam: PERRL/EOMI, eyes nml inspection Ears, Nose, Throat Exam: normal ENT inspection, moist mucous membranes Neck Exam: normal inspection, non-tender, supple, full range of motion Respiratory Exam: normal breath sounds, lungs clear, airway intact, No chest tenderness, No respiratory distress, No rhonchi, No wheezing Cardiovascular Exam: regular rate/rhythm, normal heart sounds, normal peripheral pulses Gastrointestinal/Abdomen Exam: soft, normal bowel sounds, No tenderness Pelvic Exam: not done Rectal Exam: not done Back Exam: normal inspection, normal range of motion, CVA tenderness Extremity Exam: pedal edema, other (Chronic lymphedema and venous stasis disease) Skin Exam: other (Chronic venous stasis disease bilateral lower extremity) Lymphatic Exam: No adenopathy SpO2 Interpretation: normal SpO2: 97 O2 Delivery: Room Air - Course Nursing assessment & vital signs reviewed: Yes Ordered Tests: Active Orders 24 hr Category Date Time Status EKG-ER Only STAT Care 10/20/22 16:39 Active IV Insertion STAT Care 10/20/22 16:39 Active Pulse Oximetry (ED) STAT Care 10/20/22 16:39 Active CHEST 1 VIEW (PORTABLE) Stat Exams 10/20/22 16:39 Completed BLOOD CULTURE Stat Lab 10/20/22 16:40 Received CBC W DIFF Stat Lab 10/20/22 16:55 Completed CMP Stat Lab 10/20/22 16:55 Completed NT PRO BNP Stat Lab 10/20/22 16:55 Completed TROPONIN Q4H Lab 10/20/22 16:55 Completed TROPONIN Q4H Lab 10/20/22 20:45 Ordered TROPONIN Q4H Lab 10/21/22 00:45 Ordered Lab/Rad Data: Laboratory Result Diagrams 10/20/22 16:55 10/20/22 16:55 Laboratory Results 10/20/22 10/20/22 10/20/22 Range/Units 16:57 16:55 16:55 WBC (4.0-10.5) x10^3/uL RBC (4.1-5.4) x10^6/uL Hgb (12.0-16.0) g/dL Hct (35-47) % MCV (78-100) fL MCH (26-32) pg MCHC (32-36) g/dL RDW (11.5-14.0) % Plt Count (150-450) x10^3/uL MPV (7.5-11.0) fL Gran % (36.0-66.0) % Immature Gran % (Auto) (0.00-0.4) % Nucleat RBC Rel Count (0.00-0.1) % Eos # (Auto) (0-0.5) x10^3/uL Immature Gran # (Auto) (0.00-0.03) x10^3u/L Absolute Lymphs (auto) (1.0-4.6) x10^3/uL Absolute Monos (auto) (0.0-1.3) x10^3/uL Absolute Nucleated RBC (0.00-0.01) x10^3u/L Lymphocytes % (24.0-44.0) % Monocytes % (0.0-12.0) % Eosinophils % (0.00-5.0) % Basophils % (0.0-0.4) % Absolute Granulocytes (1.4-6.9) x10^3/uL Basophils # (0-0.4) x10^3/uL Sodium 135 L (137-145) mmol/L Potassium 4.9 (3.5-5.1) mmol/L Chloride 103 (98-107) mmol/L Carbon Dioxide 27 (22-30) mmol/L Anion Gap 9.9 (5-15) MEQ/L BUN 11 (7-17) mg/dL Creatinine 0.53 (0.52-1.04) mg/dL Estimated GFR > 60.0 ML/MIN Glucose 306 H (74-106) mg/dL Calcium 8.8 (8.4-10.2) mg/dL Total Bilirubin 0.60 (0.2-1.3) mg/dL AST 49 H (14-36) U/L ALT 30 (0-35) U/L Alkaline Phosphatase 384 H (38-126) U/L Troponin I < 0.012 (0.000-0.034) ng/mL NT-Pro-B Natriuret Pep 223 (0-900) pg/mL Serum Total Protein 7.5 (6.3-8.2) g/dL Albumin 3.5 (3.5-5.0) g/dL Influenza Type A Ag NEGATIVE (NEGATIVE) Influenza Type B Ag NEGATIVE (NEGATIVE) RSV (PCR) NEGATIVE (Negative) SARS-CoV-2 (PCR) NEGATIVE (NEGATIVE) 10/20/22 Range/Units 16:55 WBC 6.0 (4.0-10.5) x10^3/uL RBC 3.61 L (4.1-5.4) x10^6/uL Hgb 7.8 L (12.0-16.0) g/dL Hct 28.1 L (35-47) % MCV 77.8 L (78-100) fL MCH 21.6 L (26-32) pg MCHC 27.8 L (32-36) g/dL RDW 18.8 H (11.5-14.0) % Plt Count 191 (150-450) x10^3/uL MPV 11.5 H (7.5-11.0) fL Gran % 82.0 H (36.0-66.0) % Immature Gran % (Auto) 0.3 (0.00-0.4) % Nucleat RBC Rel Count 0.0 (0.00-0.1) % Eos # (Auto) 0.14 (0-0.5) x10^3/uL Immature Gran # (Auto) 0.02 (0.00-0.03) x10^3u/L Absolute Lymphs (auto) 0.58 L (1.0-4.6) x10^3/uL Absolute Monos (auto) 0.32 (0.0-1.3) x10^3/uL Absolute Nucleated RBC 0.00 (0.00-0.01) x10^3u/L Lymphocytes % 9.7 L (24.0-44.0) % Monocytes % 5.4 (0.0-12.0) % Eosinophils % 2.4 (0.00-5.0) % Basophils % 0.2 (0.0-0.4) % Absolute Granulocytes 4.88 (1.4-6.9) x10^3/uL Basophils # 0.01 (0-0.4) x10^3/uL Sodium (137-145) mmol/L Potassium (3.5-5.1) mmol/L Chloride (98-107) mmol/L Carbon Dioxide (22-30) mmol/L Anion Gap (5-15) MEQ/L BUN (7-17) mg/dL Creatinine (0.52-1.04) mg/dL Estimated GFR ML/MIN Glucose (74-106) mg/dL Calcium (8.4-10.2) mg/dL Total Bilirubin (0.2-1.3) mg/dL AST (14-36) U/L ALT (0-35) U/L Alkaline Phosphatase (38-126) U/L Troponin I (0.000-0.034) ng/mL NT-Pro-B Natriuret Pep (0-900) pg/mL Serum Total Protein (6.3-8.2) g/dL Albumin (3.5-5.0) g/dL Influenza Type A Ag (NEGATIVE) Influenza Type B Ag (NEGATIVE) RSV (PCR) (Negative) SARS-CoV-2 (PCR) (NEGATIVE) - Progress Progress: improved, re-examined Air Movement: good Progress Note: 10/20/22 17:51 Chest x-ray read by me shows cardiomegaly with no acute infiltrate or other acute cardiopulmonary process present 10/20/22 18:19 Medical decision-making: I reviewed this patient's history, physical findings and the results of the patient's chest x-ray and laboratory draws with Dr. Topher Choi. This patient has coronary artery disease. Her hemoglobin levels, since the end of May 2022 has run anywhere between 7.8 and 9.0. I spoke with Dr. Topher Choi and we decided that the patient be best served to place her in observation and provide her with transfusions of 1 unit packed red blood cells to make sure that her hemoglobin is above 8.0. We will place her in obser vation and provide her with respiratory therapy nebulizer treatments as well as recheck of labs in the morning. Blood Culture(s) Obtained: Yes Counseled pt/family regarding: lab results, diagnosis, need for follow-up, rad results - Departure Departure Disposition: Observation Clinical Impression: Shortness of breath, Symptomatic anemia Condition: Fair Critical Care Time: Yes Critical Care Time(excluding separately billable procedures): Critical 30-74 mins (40 minutes) Referrals: CALVIN PALOMINO [Primary Care Provider] - Follow up/PCP as directed
[2022-10-20 17:05] LABS: Absolute Neutrophil Ct (ANC) 4.88 x10^3/uL (1.4-6.9); Basophil (Absolute #) 0.01 x10^3/uL (0-0.4); Eosinophil % 2.4 % (0.00-5.0); Eosinophil (Absolute #) 0.14 x10^3/uL (0-0.5); Hematocrit 28.1 % (35-47); Hemoglobin 7.8 g/dL (12.0-16.0); Lymphocyte (Absolute #) 0.58 x10^3/uL (1.0-4.6); Lymphocytes % 9.7 % (24.0-44.0); Mean Cell Volume 77.8 fL (78-100); Mean Corpuscular Hemoglobin 21.6 pg (26-32); Mean Corpuscular Hgb Concent. 27.8 g/dL (32-36); Mean Platelet Volume 11.5 fL (7.5-11.0); Monocyte (Absolute #) 0.32 x10^3/uL (0.0-1.3); Monocytes % 5.4 % (0.0-12.0); Platelet Count 191 x10^3/uL (150-450); Red Blood Count 3.61 x10^6/uL (4.1-5.4); Red Cell Distribution Width 18.8 % (11.5-14.0)
--- NOTE | 2022-10-20 17:17 | XRAY ---
Indication: Cough and short of breath. Comparison: October 06, 2022 Portable chest remains underinflated with grossly stable bibasilar subsegmental atelectasis/scarring, right hemidiaphragm elevation, and borderline cardiomegaly. Remaining upper lungs unremarkable. No new cardiopulmonary abnormalities.
[2022-10-20 17:28] LABS: ALBUMIN 3.5 g/dL (3.5-5.0); ALKALINE PHOSPHATASE 384 U/L (38-126); ANION GAP 9.9 MEQ/L (5-15); BLOOD UREA NITROGEN 11 mg/dL (7-17); CHLORIDE 103 mmol/L (98-107); Calcium 8.8 mg/dL (8.4-10.2); Carbon Dioxide 27 mmol/L (22-30); Creatinine 1 0.53 mg/dL (0.52-1.04); EST GLOMERULAR FILTRATION RATE > 60.0 ML/MIN; Glucose 306 mg/dL (74-106); NT PRO BNP 223 pg/mL (0-900); Potassium 4.9 mmol/L (3.5-5.1); SGOT/AST 49 U/L (14-36); SGPT/ALT 30 U/L (0-35); SODIUM 135 mmol/L (137-145); Total Protein 7.5 g/dL (6.3-8.2)
[2022-10-20 17:40] LABS: INFLUENZA A NEGATIVE (NEGATIVE); INFLUENZA B NEGATIVE (NEGATIVE); RESPIRATORY SYNCTIAL VIRUS NEGATIVE (Negative); SARS-CoV-2 Xpert Express NEGATIVE (NEGATIVE)
[2022-10-20] MEDS ORDERED: solu-MEDROL 125 MG, Sterile H2O 10 ml 2 ML IV ONE ×2 (18:38)
[2022-10-20] MEDS ORDERED: HYDROCODONE-ACETAMIN 2.5-108/5 ML SOLUTION PO STA (18:38)
[2022-10-20] MEDS ORDERED: HYDROCODONE-ACETAMIN 2.5-108/5 ML SOLUTION ONE (20:32)
[2022-10-20] MEDS ORDERED: Sterile H2O 10 ml IJ ONE (20:32)
[2022-10-20] MEDS ORDERED: solu-MEDROL ONE (20:32)
[2022-10-20] MEDS ORDERED: Zofran 4 MG/2 ML VIAL IV PRN (20:59)
[2022-10-20] MEDS ORDERED: TYLENOL 325 MG PO PRN (20:59)
[2022-10-20 21:58] LABS: ABO TYPING A; Antibody Screen NEGATIVE (NEGATIVE); RH TYPING POSITIVE
[2022-10-20 22:19] LABS: Slide Review 1 YES
[2022-10-20] MEDS: solu-MEDROL IV SCH (22:53)
[2022-10-20] MEDS ORDERED: Ativan 0.5 MG ONE (23:01)
[2022-10-20] MEDS ORDERED: Coreg ONE (23:01)
[2022-10-20] MEDS ORDERED: VENTOLIN COMMON CANISTER IH PRN (23:15)
[2022-10-20] MEDS: Protonix 40MG Tablet PO SCH ×2 (23:17→23:20)
[2022-10-20] MEDS: Ativan 0.5 MG PO SCH ×2 (23:17→23:20)
[2022-10-20] MEDS: ELIQUIS 2.5 MG TABLET PO SCH ×2 (23:17→23:19)
[2022-10-20] MEDS: HUMALOG SQ SCH (23:19)
[2022-10-21 00:08] LABS: CROSS MATCH (PRBC) COMPATIBLE (COMPATIBLE)
[2022-10-21] MEDS ORDERED: Sodium Chloride 0.9% 500 ML 500 ML IV ONE (01:56)
[2022-10-21] MEDS: HYDROCODONE-ACETAMIN 2.5-108/5 ML SOLUTION PO PRN ×2 (02:18→08:37)
[2022-10-21] MEDS: Advair Hfa 115/21 Common canister IH SCH ×3 (04:43→19:32)
[2022-10-21 06:24] LABS: Absolute Neutrophil Ct (ANC) 3.09 x10^3/uL (1.4-6.9); Basophil (Absolute #) 0 x10^3/uL (0-0.4); Eosinophil (Absolute #) 0 x10^3/uL (0-0.5); Hematocrit 31.3 % (35-47); Lymphocyte (Absolute #) 0.22 x10^3/uL (1.0-4.6); Lymphocytes % 6.6 % (24.0-44.0); Mean Cell Volume 77.3 fL (78-100); Mean Corpuscular Hemoglobin 22.2 pg (26-32); Mean Corpuscular Hgb Concent. 28.8 g/dL (32-36); Mean Platelet Volume 11.6 fL (7.5-11.0); Monocyte (Absolute #) 0.01 x10^3/uL (0.0-1.3); Monocytes % 0.3 % (0.0-12.0); Neutrophil % 92.5 % (36.0-66.0); Platelet Count 187 x10^3/uL (150-450); Red Blood Count 4.05 x10^6/uL (4.1-5.4); Red Cell Distribution Width 18.6 % (11.5-14.0); White Blood Count 3.3 x10^3/uL (4.0-10.5)
[2022-10-21 06:42] LABS: ALBUMIN 3.5 g/dL (3.5-5.0); ALKALINE PHOSPHATASE 383 U/L (38-126); ANION GAP 11.1 MEQ/L (5-15); BLOOD UREA NITROGEN 12 mg/dL (7-17); CHLORIDE 100 mmol/L (98-107); Calcium 8.8 mg/dL (8.4-10.2); Carbon Dioxide 25 mmol/L (22-30); Creatinine 1 0.51 mg/dL (0.52-1.04); EST GLOMERULAR FILTRATION RATE > 60.0 ML/MIN; NT PRO BNP 538 pg/mL (0-900); Potassium 4.7 mmol/L (3.5-5.1); SGOT/AST 38 U/L (14-36); SGPT/ALT 29 U/L (0-35); SODIUM 131 mmol/L (137-145); Total Protein 7.3 g/dL (6.3-8.2)
[2022-10-21 06:52] LABS: Glucose 532 mg/dL (74-106)
[2022-10-21] MEDS: HUMALOG SQ SCH ×5 (07:00→21:23)
[2022-10-21 08:21] LABS: Slide Review 1 YES
[2022-10-21] MEDS: Protonix 40MG Tablet PO SCH ×3 (09:01→21:22)
[2022-10-21] MEDS: Sterile H2O 10 ml IJ SCH ×2 (09:02→21:33)
[2022-10-21] MEDS: Coreg PO SCH ×2 (09:02→21:23)
[2022-10-21] MEDS: solu-MEDROL IV SCH ×2 (09:02→21:33)
[2022-10-21] MEDS: ELIQUIS 2.5 MG TABLET PO SCH ×3 (09:02→21:23)
[2022-10-21] MEDS ORDERED: COREG 12.5 MG PO SCH (10:00)
--- NOTE | 2022-10-21 11:36 | PCM.HP ---
History of Present Illness - Chief Complaint Chief Complaint: shortness of breath History of Present Illness: is a 62 year old female pt of Dr. Holguin with PMHx COPD, DM, CHF, GERD, CAD, afib (on Eliquis), chronic anemia, TRACY, HTN, fibromyalgia, and ulcerative colitis who was admitted through ER with SOB, symptomatic anemia, hyponatremia. Hgb 7.8. Troponins were neg x 3. Her BNP is normal. Pt c/o 2d of cough in ER, with LE edema and SOB. She told me she's had SOB for weeks. Was increased yesterday and went to ER (by private car). Had subj fever, cough prod white sputum. Has had intermittent CP L chest rad to back, 04/19, wtih diaphoresis, nause, and palpitations. Her hgb has been around 8 for some time, has been below 8 x 1 recently. Since she has a hx CAD and Eliquis, we did transfuse 1 unit PRBC and her hgbimproved to 9.0. Na was initially 135 and is 131 today. Alk phos is 383. - Review of Systems Constitutional: Fever (subj at home; Tma 100.0 here) Respiratory: Cough, Short Of Breath Cardiac: Chest Pain, Edema (chronic) Abdominal/Gastrointestinal: Hematochezia (occ) Skin: Rash (intermittent, inferior to breasts) Neurological: Dizziness, Other (syncope - says she has discussed with her other doctors) Psychological: Anxiety (when she's SOB) All Other Systems: Reviewed and Negative Medications & Allergies Home Medications: Home Medication List Duloxetine HCl 60 mg PO DAILY 03/17/16 [History Confirmed 10/20/22] Mesalamine [Pentasa] 500 mg PO BID 03/17/16 [History Confirmed 10/20/22] Omeprazole 20 MG [Prilosec 20 mg] 20 mg PO BID 03/17/16 [History Confirmed 10/20/22] Atorvastatin Calcium 10 mg PO DAILY 01/25/18 [History Confirmed 10/20/22] Meclizine HCl 25 mg [Antivert 25 mg] 25 mg PO Q8H PRN PRN 12/05/19 [History Confirmed 10/20/22] Isosorbide Mononitrate 60 mg [Imdur 60MG] 60 mg PO DAILY 12/31/20 [History Confirmed 10/20/22] Levothyroxine Sodium 25 Mcg [Synthroid 25 Mcg] 25 mcg PO DAILY 12/31/20 [History Confirmed 10/20/22] Aripiprazole [Abilify] 2 mg PO DAILY 06/03/22 [History Confirmed 10/20/22] Fluticasone Propion/Salmeterol [Fluticasone-Salmeterol 250-50] 1 each IH BIDRT 06/03/22 [History Confirmed 10/20/22] Loperamide HCl [Loperamide] 4 mg PO Q12H PRN PRN 06/03/22 [History Confirmed 10/20/22] Magnesium Oxide 400 mg [Mag-Ox 400] 800 mg PO DAILY 06/03/22 [History Confirmed 10/20/22] Nitroglycerin 0.4 mg Tablet [Nitrostat 0.4 MG Tablet] 0.4 mg SL Q5MIN PRN MR X 3 PRN 06/03/22 [History Confirmed 10/20/22] Pravastatin Sodium 80 mg PO DAILY 06/03/22 [History Confirmed 10/20/22] Primidone 50 MG [Mysoline 50Mg] 50 mg PO TID 06/03/22 [History Confirmed 10/20/22] Ranolazine 500 MG [Ranexa 500 MG] 500 mg PO BID 06/03/22 [History Confirmed 10/20/22] Saccharomyces Boulardii [Florastor] 250 mg PO BID 06/03/22 [History Confirmed 10/20/22] azaTHIOprine [Azathioprine] 50 mg PO BID 06/03/22 [History Confirmed 10/20/22] lisinopriL [Zestril] 2.5 mg PO DAILY 06/03/22 [History Confirmed 10/20/22] Apixaban [Eliquis 5 mg Tablet] 5 mg PO BID 08/16/22 [History Confirmed 10/20/22] Carvedilol [Coreg ] 6.25 mg PO BID #60 tablet 08/19/22 [Rx Confirmed 10/20/22] Diltiazem HCl Cd [Cardizem CD ] 120 mg PO DAILY #30 cap 08/19/22 [Rx Confirmed 10/20/22] Acetaminophen 325 mg [Tylenol 325 mg] 2 tab PO Q4HPRN PRN 10/06/22 [History Confirmed 10/20/22] Albuterol Sulfate [Proventil Hfa] 2 puff IH Q6HPRN PRN 10/06/22 [History Confirmed 10/20/22] Furosemide 40 mg [Lasix 40 MG] 40 mg PO DAILY 10/06/22 [History Confirmed 10/20/22] Hydrocodone/Acetaminophen [Hydrocodone-Acetamin 7.5-325] 1 tab PO BID PRN 10/06/22 [History Confirmed 10/20/22] Hydrocortisone [Proctocort] 28.35 gm RC Q12H PRN PRN 10/06/22 [History Confirmed 10/20/22] Insulin Aspart [NovoLOG Insulin] See Rx Instructions .ROUTE .COMPLEX 10/06/22 [History Confirmed 10/20/22] Insulin Glargine,Hum.rec.anlog [Insulin Glargine] 42 units SQ HS 10/06/22 [History Confirmed 10/20/22] Lorazepam 0.5 mg [Ativan 0.5 MG] 0.5 mg PO [id number] PRN 10/06/22 [History Confirmed 10/20/22] Magnesium Hydroxide 30 ml [Milk of Magnesia 30 ml] 30 ml PO DAILY PRN 10/06/22 [History Confirmed 10/20/22] Metformin HCl 500 mg [Glucophage 500 MG] 500 mg PO DAILY 10/06/22 [History Confirmed 10/20/22] Potassium Chloride 10 meq PO DAILY 10/06/22 [History Confirmed 10/20/22] Allergies/Adverse Reactions: Allergies Allergy/AdvReac Type Severity Reaction Status Date / Time cyclobenzaprine HCl Allergy Mild Rash Verified 10/20/22 16:23 [From Flexeril] metoclopramide [From Reglan] Allergy Mild Rash Verified 10/20/22 16:23 Sulfa (Sulfonamide Allergy Mild Rash Verified 10/20/22 16:23 Antibiotics) [Sulfa(Sulfonamide Antibiotics)] adhesive Allergy Rash Verified 10/20/22 16:23 nalbuphine HCl [From Nubain] AdvReac Intermediate Stomach Verified 10/20/22 16:23 Cramps ciprofloxacin [From Cipro] AdvReac Mild Rash Verified 10/20/22 16:23 meperidine HCl [From Demerol] AdvReac Mild Vomiting Verified 10/20/22 16:23 - Past Medical History Past Medical History: Yes Neurological History: Migraines, Peripheral Neuropathy ENT History: Cataracts Cardiac History: Coronary Artery Disease, High Cholesterol, Hypertension, Myocardial Infarction ([place]) Respiratory History: Asthma, Bronchitis, CHF, COPD, Sleep Apnea Endocrine Medical History: Diabetes Type II Musculoskelatal History: Arthritis, Degenerative Disk Disease, Fibromyalgia, Osteoarthritis GI Medical History: Crohns Disease, Diverticulitis, GERD, Irritable Bowel History: No Pertinent History Pyscho-Social History: Anxiety, Depression Reproductive Disorders: No Pertinent History Comment: HX UTI, HX Yeast Infection, Neuropathy, degenerative joint disease - Past Surgical History Past Surgical History: Yes Neuro Surgical History: No Pertinent History Cardiac History: Cardiac Catheterization Respiratory Surgery: No Pertinent History GI Surgical History: No Pertinent History Genitourinary Surgical Hx: No Pertinent History Musculskeletal Surgical Hx: No Pertinent History Female Surgical History: Dilation & Curettage, Section, Tubal Ligation Other Surgical History: KIDNEY STONE REMOVAL, right 2nd toe amputated 2021. heart cath x3, no stents, clot removal rt thigh artery - Social History Smoking Status: Former smoker How long have you smoked: years Exposure to second hand smoke: No Alcohol: None Drug Use: none Significant Family History: no pertinent family hx, diabetes, hypertension - Physical Exam Vital Signs: Vital Signs - 24 hr Temp Pulse Resp BP BP Pulse Ox 10/21/22 07:46 97 H 18 96 10/21/22 07:07 97.9 F 94 H 16 173/80 92 L 10/21/22 05:17 97.5 F 92 H 22 143/82 97 10/21/22 04:30 97.5 F 91 H 24 145/82 96 10/21/22 03:15 98.4 F 102 H 20 172/92 95 10/21/22 02:45 97.8 F 96 H 20 163/72 96 10/21/22 00:00 98.3 F 106 H 20 172/97 94 L 10/20/22 23:30 97 10/20/22 23:02 115 H 28 H 95 10/20/22 21:15 100.0 F 103 H 24 144/81 103 H 10/20/22 20:10 99 H 29 H 179/95 96 10/20/22 19:15 103 H 28 H 167/88 95 10/20/22 18:21 97 10/20/22 18:00 97 H 33 H 159/97 95 10/20/22 17:15 99 10/20/22 17:05 86 27 H 159/101 97 10/20/22 16:25 40 H 97 10/20/22 16:21 97.2 F 86 38 H 170/110 96 10/20/22 16:16 97 General Appearance: no apparent distress, obese Neurologic Exam: oriented x 3, cooperative Eye Exam: eyes nml inspection Ears, Nose, Throat Exam: moist mucous membranes Neck Exam: normal inspection Respiratory Exam: diminished breath sounds, prolonged expirations, No crackles/rales, No rhonchi, No wheezing Cardiovascular Exam: regular rate/rhythm, normal heart sounds, No murmur Gastrointestinal/Abdomen Exam: soft, normal bowel sounds, No tenderness, No mass, No guarding, No rebound Extremity Exam: normal inspection, swelling (trace pretibial) Skin Exam: normal color, warm, dry, No rash Results - Labs Lab/Micro Results: Lab Results-Last 24 Hours 10/20/22 10/20/22 10/20/22 Range/Units 16:55 16:55 16:55 WBC 6.0 (4.0-10.5) x10^3/uL RBC 3.61 L (4.1-5.4) x10^6/uL Hgb 7.8 L (12.0-16.0) g/dL Hct 28.1 L (35-47) % MCV 77.8 L (78-100) fL MCH 21.6 L (26-32) pg MCHC 27.8 L (32-36) g/dL RDW 18.8 H (11.5-14.0) % Plt Count 191 (150-450) x10^3/uL MPV 11.5 H (7.5-11.0) fL Gran % 82.0 H (36.0-66.0) % Immature Gran % (Auto) 0.3 (0.00-0.4) % Nucleat RBC Rel Count 0.0 (0.00-0.1) % Eos # (Auto) 0.14 (0-0.5) x10^3/uL Immature Gran # (Auto) 0.02 (0.00-0.03) x10^3u/L Absolute Lymphs (auto) 0.58 L (1.0-4.6) x10^3/uL Absolute Monos (auto) 0.32 (0.0-1.3) x10^3/uL Absolute Nucleated RBC 0.00 (0.00-0.01) x10^3u/L Lymphocytes % 9.7 L (24.0-44.0) % Monocytes % 5.4 (0.0-12.0) % Eosinophils % 2.4 (0.00-5.0) % Basophils % 0.2 (0.0-0.4) % Absolute Granulocytes 4.88 (1.4-6.9) x10^3/uL Basophils # 0.01 (0-0.4) x10^3/uL Sodium 135 L (137-145) mmol/L Potassium 4.9 (3.5-5.1) mmol/L Chloride 103 (98-107) mmol/L Carbon Dioxide 27 (22-30) mmol/L Anion Gap 9.9 (5-15) MEQ/L BUN 11 (7-17) mg/dL Creatinine 0.53 (0.52-1.04) mg/dL Estimated GFR > 60.0 ML/MIN Glucose 306 H (74-106) mg/dL POC Glucometer (74 to 106) mg/dL Calcium 8.8 (8.4-10.2) mg/dL Total Bilirubin 0.60 (0.2-1.3) mg/dL AST 49 H (14-36) U/L ALT 30 (0-35) U/L Alkaline Phosphatase 384 H (38-126) U/L Troponin I < 0.012 (0.000-0.034) ng/mL NT-Pro-B Natriuret Pep 223 (0-900) pg/mL Serum Total Protein 7.5 (6.3-8.2) g/dL Albumin 3.5 (3.5-5.0) g/dL Procalcitonin (0.030-0.080) ng/mL Influenza Type A Ag (NEGATIVE) Influenza Type B Ag (NEGATIVE) RSV (PCR) (Negative) SARS-CoV-2 (PCR) (NEGATIVE) Slides for Path Review YES ABO Group Rh Factor Antibody Screen (NEGATIVE) Crossmatch (COMPATIBLE) 10/20/22 10/20/22 10/20/22 Range/Units 16:57 20:00 20:00 WBC (4.0-10.5) x10^3/uL RBC (4.1-5.4) x10^6/uL Hgb (12.0-16.0) g/dL Hct (35-47) % MCV (78-100) fL MCH (26-32) pg MCHC (32-36) g/dL RDW (11.5-14.0) % Plt Count (150-450) x10^3/uL MPV (7.5-11.0) fL Gran % (36.0-66.0) % Immature Gran % (Auto) (0.00-0.4) % Nucleat RBC Rel Count (0.00-0.1) % Eos # (Auto) (0-0.5) x10^3/uL Immature Gran # (Auto) (0.00-0.03) x10^3u/L Absolute Lymphs (auto) (1.0-4.6) x10^3/uL Absolute Monos (auto) (0.0-1.3) x10^3/uL Absolute Nucleated RBC (0.00-0.01) x10^3u/L Lymphocytes % (24.0-44.0) % Monocytes % (0.0-12.0) % Eosinophils % (0.00-5.0) % Basophils % (0.0-0.4) % Absolute Granulocytes (1.4-6.9) x10^3/uL Basophils # (0-0.4) x10^3/uL Sodium (137-145) mmol/L Potassium (3.5-5.1) mmol/L Chloride (98-107) mmol/L Carbon Dioxide (22-30) mmol/L Anion Gap (5-15) MEQ/L BUN (7-17) mg/dL Creatinine (0.52-1.04) mg/dL Estimated GFR ML/MIN Glucose (74-106) mg/dL POC Glucometer (74 to 106) mg/dL Calcium (8.4-10.2) mg/dL Total Bilirubin (0.2-1.3) mg/dL AST (14-36) U/L ALT (0-35) U/L Alkaline Phosphatase (38-126) U/L Troponin I < 0.012 (0.000-0.034) ng/mL NT-Pro-B Natriuret Pep (0-900) pg/mL Serum Total Protein (6.3-8.2) g/dL Albumin (3.5-5.0) g/dL Procalcitonin (0.030-0.080) ng/mL Influenza Type A Ag NEGATIVE (NEGATIVE) Influenza Type B Ag NEGATIVE (NEGATIVE) RSV (PCR) NEGATIVE (Negative) SARS-CoV-2 (PCR) NEGATIVE (NEGATIVE) Slides for Path Review ABO Group A Rh Factor POSITIVE Antibody Screen NEGATIVE (NEGATIVE) Crossmatch COMPATIBLE (COMPATIBLE) 10/20/22 10/21/22 10/21/22 Range/Units 21:13 04:51 06:22 WBC (4.0-10.5) x10^3/uL RBC (4.1-5.4) x10^6/uL Hgb (12.0-16.0) g/dL Hct (35-47) % MCV (78-100) fL MCH (26-32) pg MCHC (32-36) g/dL RDW (11.5-14.0) % Plt Count (150-450) x10^3/uL MPV (7.5-11.0) fL Gran % (36.0-66.0) % Immature Gran % (Auto) (0.00-0.4) % Nucleat RBC Rel Count (0.00-0.1) % Eos # (Auto) (0-0.5) x10^3/uL Immature Gran # (Auto) (0.00-0.03) x10^3u/L Absolute Lymphs (auto) (1.0-4.6) x10^3/uL Absolute Monos (auto) (0.0-1.3) x10^3/uL Absolute Nucleated RBC (0.00-0.01) x10^3u/L Lymphocytes % (24.0-44.0) % Monocytes % (0.0-12.0) % Eosinophils % (0.00-5.0) % Basophils % (0.0-0.4) % Absolute Granulocytes (1.4-6.9) x10^3/uL Basophils # (0-0.4) x10^3/uL Sodium (137-145) mmol/L Potassium (3.5-5.1) mmol/L Chloride (98-107) mmol/L Carbon Dioxide (22-30) mmol/L Anion Gap (5-15) MEQ/L BUN (7-17) mg/dL Creatinine (0.52-1.04) mg/dL Estimated GFR ML/MIN Glucose (74-106) mg/dL POC Glucometer 221 H (74 to 106) mg/dL Calcium (8.4-10.2) mg/dL Total Bilirubin (0.2-1.3) mg/dL AST (14-36) U/L ALT (0-35) U/L Alkaline Phosphatase (38-126) U/L Troponin I < 0.012 (0.000-0.034) ng/mL NT-Pro-B Natriuret Pep (0-900) pg/mL Serum Total Protein (6.3-8.2) g/dL Albumin (3.5-5.0) g/dL Procalcitonin 0.054 (0.030-0.080) ng/mL Influenza Type A Ag (NEGATIVE) Influenza Type B Ag (NEGATIVE) RSV (PCR) (Negative) SARS-CoV-2 (PCR) (NEGATIVE) Slides for Path Review ABO Group Rh Factor Antibody Screen (NEGATIVE) Crossmatch (COMPATIBLE) 10/21/22 10/21/22 10/21/22 Range/Units 06:22 06:22 07:21 WBC 3.3 L (4.0-10.5) x10^3/uL RBC 4.05 L (4.1-5.4) x10^6/uL Hgb 9.0 L (12.0-16.0) g/dL Hct 31.3 L (35-47) % MCV 77.3 L (78-100) fL MCH 22.2 L (26-32) pg MCHC 28.8 L (32-36) g/dL RDW 18.6 H (11.5-14.0) % Plt Count 187 (150-450) x10^3/uL MPV 11.6 H (7.5-11.0) fL Gran % 92.5 H (36.0-66.0) % Immature Gran % (Auto) 0.6 H (0.00-0.4) % Nucleat RBC Rel Count 0.0 (0.00-0.1) % Eos # (Auto) 0 (0-0.5) x10^3/uL Immature Gran # (Auto) 0.02 (0.00-0.03) x10^3u/L Absolute Lymphs (auto) 0.22 L (1.0-4.6) x10^3/uL Absolute Monos (auto) 0.01 (0.0-1.3) x10^3/uL Absolute Nucleated RBC 0.00 (0.00-0.01) x10^3u/L Lymphocytes % 6.6 L (24.0-44.0) % Monocytes % 0.3 (0.0-12.0) % Eosinophils % 0.0 (0.00-5.0) % Basophils % 0.0 (0.0-0.4) % Absolute Granulocytes 3.09 (1.4-6.9) x10^3/uL Basophils # 0 (0-0.4) x10^3/uL Sodium 131 L (137-145) mmol/L Potassium 4.7 (3.5-5.1) mmol/L Chloride 100 (98-107) mmol/L Carbon Dioxide 25 (22-30) mmol/L Anion Gap 11.1 (5-15) MEQ/L BUN 12 (7-17) mg/dL Creatinine 0.51 L (0.52-1.04) mg/dL Estimated GFR > 60.0 ML/MIN Glucose 532 H* (74-106) mg/dL POC Glucometer 419 H (74 to 106) mg/dL Calcium 8.8 (8.4-10.2) mg/dL Total Bilirubin 0.60 (0.2-1.3) mg/dL AST 38 H (14-36) U/L ALT 29 (0-35) U/L Alkaline Phosphatase 383 H (38-126) U/L Troponin I (0.000-0.034) ng/mL NT-Pro-B Natriuret Pep 538 (0-900) pg/mL Serum Total Protein 7.3 (6.3-8.2) g/dL Albumin 3.5 (3.5-5.0) g/dL Procalcitonin (0.030-0.080) ng/mL Influenza Type A Ag (NEGATIVE) Influenza Type B Ag (NEGATIVE) RSV (PCR) (Negative) SARS-CoV-2 (PCR) (NEGATIVE) Slides for Path Review YES ABO Group Rh Factor Antibody Screen (NEGATIVE) Crossmatch (COMPATIBLE) 10/21/22 Range/Units 08:32 WBC (4.0-10.5) x10^3/uL RBC (4.1-5.4) x10^6/uL Hgb (12.0-16.0) g/dL Hct (35-47) % MCV (78-100) fL MCH (26-32) pg MCHC (32-36) g/dL RDW (11.5-14.0) % Plt Count (150-450) x10^3/uL MPV (7.5-11.0) fL Gran % (36.0-66.0) % Immature Gran % (Auto) (0.00-0.4) % Nucleat RBC Rel Count (0.00-0.1) % Eos # (Auto) (0-0.5) x10^3/uL Immature Gran # (Auto) (0.00-0.03) x10^3u/L Absolute Lymphs (auto) (1.0-4.6) x10^3/uL Absolute Monos (auto) (0.0-1.3) x10^3/uL Absolute Nucleated RBC (0.00-0.01) x10^3u/L Lymphocytes % (24.0-44.0) % Monocytes % (0.0-12.0) % Eosinophils % (0.00-5.0) % Basophils % (0.0-0.4) % Absolute Granulocytes (1.4-6.9) x10^3/uL Basophils # (0-0.4) x10^3/uL Sodium (137-145) mmol/L Potassium (3.5-5.1) mmol/L Chloride (98-107) mmol/L Carbon Dioxide (22-30) mmol/L Anion Gap (5-15) MEQ/L BUN (7-17) mg/dL Creatinine (0.52-1.04) mg/dL Estimated GFR ML/MIN Glucose (74-106) mg/dL POC Glucometer 434 H (74 to 106) mg/dL Calcium (8.4-10.2) mg/dL Total Bilirubin (0.2-1.3) mg/dL AST (14-36) U/L ALT (0-35) U/L Alkaline Phosphatase (38-126) U/L Troponin I (0.000-0.034) ng/mL NT-Pro-B Natriuret Pep (0-900) pg/mL Serum Total Protein (6.3-8.2) g/dL Albumin (3.5-5.0) g/dL Procalcitonin (0.030-0.080) ng/mL Influenza Type A Ag (NEGATIVE) Influenza Type B Ag (NEGATIVE) RSV (PCR) (Negative) SARS-CoV-2 (PCR) (NEGATIVE) Slides for Path Review ABO Group Rh Factor Antibody Screen (NEGATIVE) Crossmatch (COMPATIBLE) Accuchecks Date 10/21/22 Time 07:35 - Radiology Impressions Radiology Exams & Impressions: Radiology Procedures Category Date Time Status CHEST 1 VIEW (PORTABLE) Stat Exams 10/20/22 16:39 Completed - Other Procedures and Tests Respiratory Therapy 10/20/22 23:15 Respiratory Therapy Assessment DAILY 10/20/22 23:30 Oxygen NASAL CANNULA 2 lpm Assessment/Plan (1) Shortness of breath Current Visit: Yes Status: Acute Assessment & Plan: Does not appear terrible SOB to me currently. Will have PT work with pt to help eval [place] (and also for gen deconditioning). Code(s): R06.02 - SHORTNESS OF BREATH (2) COPD exacerbation Current Visit: No Status: Resolved Assessment & Plan: Likely, per history. She is on 40mg solumedrol q12h. Procalcitonin is nl, so will avoid abx for now. Code(s): J44.1 - CHRONIC OBSTRUCTIVE PULMONARY DISEASE W (ACUTE) EXACERBATION (3) Symptomatic anemia Current Visit: Yes Status: Acute Assessment & Plan: Any sx due to anemia should be resolved at current hgb of 9.0. Code(s): D64.9 - ANEMIA, UNSPECIFIED (4) Afib Current Visit: No Status: Acute Qualifiers: Atrial fibrillation type: unspecified Qualified Code(s): I48.91 - Unspecified atrial fibrillation Code(s): I48.91 - UNSPECIFIED ATRIAL FIBRILLATION (5) Type 2 diabetes mellitus Current Visit: No Status: Chronic Qualifiers: Diabetes mellitus half-way insulin use: with manager intermediate use Diabetes mellitus complication status: with hyperglycemia Qualified Code(s): E11.65 - Type 2 diabetes mellitus with hyperglycemia; Z79.4 - termite helper (current) use of insulin (6) Ulcerative colitis Current Visit: No Status: Chronic Qualifiers: Ulcerative colitis location: unspecified ulcerative colitis location Digestive disease complication type: unspecified complication Qualified Code(s): K51.919 - Ulcerative colitis, unspecified with unspecified complications Assessment & Plan: Not sure if this is the cause of her anemia. Code(s): K51.90 - ULCERATIVE COLITIS, UNSPECIFIED, WITHOUT COMPLICATIONS (7) Muscular deconditioning Current Visit: Yes Status: Chronic Code(s): R29.898 - OTH SYMPTOMS AND SIGNS INVOLVING THE MUSCULOSKELETAL SYSTEM
[2022-10-21] MEDS: Lidoderm Patch 5% TOP SCH (11:59)
[2022-10-21] MEDS ORDERED: NORCO 7.5/325 MG TAB PO PRN (13:44)
[2022-10-21] MEDS ORDERED: IMODIUM 2 MG PO PRN (13:44)
[2022-10-21] MEDS ORDERED: VENTOLIN COMMON CANISTER IH PRN (13:44)
[2022-10-21] MEDS ORDERED: TYLENOL 325 MG PO PRN (13:44)
[2022-10-21] MEDS ORDERED: MILK OF MAGNESIA 30 ML PO PRN (13:44)
[2022-10-21] MEDS ORDERED: ANTIVERT 25 MG PO PRN (13:44)
[2022-10-21] MEDS ORDERED: HYDROCORTISONE RC PRN (13:44)
[2022-10-21] MEDS ORDERED: Nitrostat 0.4 MG Tablet SL PRN (13:44)
[2022-10-21] MEDS ORDERED: MEDICATION INTERVENTION MC SCH ×3 (14:15)
[2022-10-21] MEDS: Cymbalta 30 MG Capsule PO SCH (15:09)
[2022-10-21] MEDS: Abilify 10 MG PO SCH (15:10)
[2022-10-21] MEDS: Zestril 5 MG PO SCH (15:10)
[2022-10-21] MEDS: Lasix 40 MG PO SCH (15:10)
[2022-10-21] MEDS: Klor Con PO SCH (15:10)
[2022-10-21] MEDS: Imdur 60MG PO SCH (15:10)
[2022-10-21] MEDS: Cardizem CD PO SCH (15:10)
[2022-10-21] MEDS: Zocor 10MG PO SCH (15:11)
[2022-10-21] MEDS: MAG-OX 400 PO SCH (15:11)
[2022-10-21] MEDS: MYSOLINE 50MG PO SCH ×2 (15:11→21:23)
[2022-10-21] MEDS: HYDROCODONE-ACETAMIN 10-325 MG PO PRN ×2 (15:11→21:22)
[2022-10-21] MEDS: SYNTHROID 25 MCG PO SCH (15:11)
[2022-10-21] MEDS ORDERED: PHARMACY DOSING REQUIRED: VANCOMYCIN IV STA (16:28)
[2022-10-21] MEDS: VANCOMYCIN 1 GRAM/200 ML BAG 1 GM/200 ML PIGGYBACK IV SCH (18:25)
[2022-10-21] MEDS: Acidophilus TABLET PO SCH (21:22)
[2022-10-21] MEDS: Ranexa 500 MG PO SCH (21:23)
[2022-10-21] MEDS: Ativan 0.5 MG PO PRN (21:23)
[2022-10-21] MEDS ORDERED: SACCHAROMYCES BOULARDII 250 MG PO SCH (22:00)
[2022-10-21] MEDS ORDERED: MESALAMINE 500 MG PO SCH (22:00)
[2022-10-21] MEDS ORDERED: AZATHIOPRINE 50 MG PO SCH (22:00)
[2022-10-21] MEDS ORDERED: Lantus Insulin SQ SCH (22:00)
[2022-10-22] MEDS: VANCOMYCIN 1 GRAM/200 ML BAG 1 GM/200 ML PIGGYBACK IV SCH ×2 (01:56→08:56)
[2022-10-22] MEDS: Advair Hfa 115/21 Common canister IH SCH (07:37)
[2022-10-22 07:40] LABS: Absolute Neutrophil Ct (ANC) 5.94 x10^3/uL (1.4-6.9); Basophil (Absolute #) 0 x10^3/uL (0-0.4); Eosinophil (Absolute #) 0 x10^3/uL (0-0.5); Hematocrit 27.8 % (35-47); Lymphocytes % 6.1 % (24.0-44.0); Mean Cell Volume 76.4 fL (78-100); Mean Corpuscular Hgb Concent. 28.8 g/dL (32-36); Mean Platelet Volume 12.1 fL (7.5-11.0); Monocyte (Absolute #) 0.21 x10^3/uL (0.0-1.3); Monocytes % 3.2 % (0.0-12.0); Neutrophil % 90.4 % (36.0-66.0); Platelet Count 193 x10^3/uL (150-450); Red Blood Count 3.64 x10^6/uL (4.1-5.4); Red Cell Distribution Width 18.6 % (11.5-14.0); White Blood Count 6.6 x10^3/uL (4.0-10.5)
[2022-10-22] MEDS: Lidoderm Patch 5% TOP SCH (08:44)
[2022-10-22] MEDS: Cymbalta 30 MG Capsule PO SCH (08:46)
[2022-10-22] MEDS: Ranexa 500 MG PO SCH (08:46)
[2022-10-22] MEDS: SYNTHROID 25 MCG PO SCH (08:46)
[2022-10-22] MEDS: Klor Con PO SCH (08:47)
[2022-10-22] MEDS: Zocor 10MG PO SCH (08:47)
[2022-10-22] MEDS: ELIQUIS 2.5 MG TABLET PO SCH (08:47)
[2022-10-22] MEDS: Coreg PO SCH (08:47)
[2022-10-22] MEDS: Zestril 5 MG PO SCH (08:48)
[2022-10-22] MEDS: MAG-OX 400 PO SCH (08:48)
[2022-10-22] MEDS: Abilify 10 MG PO SCH (08:49)
[2022-10-22] MEDS: Acidophilus TABLET PO SCH (08:49)
[2022-10-22] MEDS: Cardizem CD PO SCH (08:49)
[2022-10-22] MEDS: MYSOLINE 50MG PO SCH (08:49)
[2022-10-22] MEDS: Imdur 60MG PO SCH (08:49)
[2022-10-22] MEDS: Protonix 40MG Tablet PO SCH (08:50)
[2022-10-22] MEDS: Lasix 40 MG PO SCH (08:50)
[2022-10-22] MEDS: solu-MEDROL IV SCH (08:56)
[2022-10-22] MEDS: Ativan 0.5 MG PO PRN (09:04)
[2022-10-22] MEDS: Sterile H2O 10 ml IJ SCH (09:06)
[2022-10-22] MEDS: HUMALOG SQ SCH (09:09)
[2022-10-22 09:39] LABS: ANION GAP 11.5 MEQ/L (5-15); BLOOD UREA NITROGEN 22 mg/dL (7-17); CHLORIDE 99 mmol/L (98-107); Calcium 8.5 mg/dL (8.4-10.2); Carbon Dioxide 24 mmol/L (22-30); EST GLOMERULAR FILTRATION RATE > 60.0 ML/MIN; Glucose 443 mg/dL (74-106); Potassium 4.9 mmol/L (3.5-5.1); SODIUM 129 mmol/L (137-145)
[2022-10-22] MEDS ORDERED: NON-FORMULARY ITEM (Lisinopril [Zestril] 2.5 MG Tablet) PO SCH (10:00)
[2022-10-22] MEDS ORDERED: NON-FORMULARY ITEM (Aripiprazole [Abilify] 2 MG Tablet) PO SCH (10:00)
[2022-10-22] MEDS ORDERED: NON-FORMULARY ITEM (Pravastatin Sodium [Pravastatin Sodium] 80 MG Tablet) PO SCH (10:00)
[2022-10-22] MEDS ORDERED: NON-FORMULARY ITEM (Atorvastatin Calcium [Atorvastatin Calcium] 10 MG Tablet) PO SCH (10:00)
[2022-10-22] MEDS ORDERED: NON-FORMULARY ITEM (Duloxetine Hcl [Duloxetine Hcl] 60 MG Capsule.Dr) PO SCH (10:00)
[2022-10-22 10:35] VITALS: BP 146/78; PULSE 86; O2SAT 94
[2022-10-22 11:07] LABS: Slide Review 1 YES
--- NOTE | 2022-10-22 13:08 | PCM.DS ---
Discharge Summary Date of Admission: 10/20/22 20:47 Admitting Physician: LULI BARTON Primary Care Provider: CALVIN HOLGUIN Allergies Allergies cyclobenzaprine HCl [From Flexeril] Allergy (Mild, Verified 10/20/22 16:23) Rash metoclopramide [From Reglan] Allergy (Mild, Verified 10/20/22 16:23) Rash Sulfa (Sulfonamide Antibiotics) [Sulfa(Sulfonamide Antibiotics)] Allergy (Mild, Verified 10/20/22 16:23) Rash adhesive Allergy (Verified 10/20/22 16:23) Rash nalbuphine HCl [From Nubain] Adverse Reaction (Intermediate, Verified 10/20/22 16:23) Stomach Cramps patient states she had stomach "burning" and that her legs felt like "rubber bands" ciprofloxacin [From Cipro] Adverse Reaction (Mild, Verified 10/20/22 16:23) Rash meperidine HCl [From Demerol] Adverse Reaction (Mild, Verified 10/20/22 16:23) Vomiting Hospital Summary - Hospital Course Hospital Course: is a 62 year old female pt of Dr. Holguin with PMHx COPD, DM, CHF, GERD, CAD, afib (on Eliquis), chronic anemia, TRACY, HTN, fibromyalgia, and ulcerative colitis who was admitted through ER with SOB, symptomatic anemia, hyponatremia. Hgb 7.8. Troponins were neg x 3. Her BNP was normal. She was given 1 unit PRBC, since she has CAD, and her hgb viv to 9.0. She had a positive blood culture and was started on IV vancomycin. Final result is probable contaminant. Pt is doing very well today, off O2 and looks very good. Lori po. Will discharge pt to home on po steroid. She will f/u with PCP in 1 week. - Vitals & Intake/Output Vital Signs: Vital Signs Temperature 96.9 F 10/22/22 10:34 Pulse Rate 86 10/22/22 10:34 Respiratory Rate 20 10/22/22 10:34 Blood Pressure 146/78 10/22/22 10:34 O2 Sat by Pulse Oximetry 94 L 10/22/22 10:34 Intake & Output: Intake & Output 10/20/22 10/21/22 10/22/22 10/23/22 11:59 11:59 11:59 11:59 Intake Total 6429 2549 Balance 2689 2549 Weight 132 kg - Lab Result Diagrams: 10/22/22 07:39 10/22/22 07:39 Lab Results-Last 24 Hrs: Lab Results-Last 24 Hours 10/21/22 10/21/22 10/21/22 Range/Units 16:18 18:30 20:40 WBC (4.0-10.5) x10^3/uL RBC (4.1-5.4) x10^6/uL Hgb (12.0-16.0) g/dL Hct (35-47) % MCV (78-100) fL MCH (26-32) pg MCHC (32-36) g/dL RDW (11.5-14.0) % Plt Count (150-450) x10^3/uL MPV (7.5-11.0) fL Gran % (36.0-66.0) % Immature Gran % (Auto) (0.00-0.4) % Nucleat RBC Rel Count (0.00-0.1) % Eos # (Auto) (0-0.5) x10^3/uL Immature Gran # (Auto) (0.00-0.03) x10^3u/L Absolute Lymphs (auto) (1.0-4.6) x10^3/uL Absolute Monos (auto) (0.0-1.3) x10^3/uL Absolute Nucleated RBC (0.00-0.01) x10^3u/L Lymphocytes % (24.0-44.0) % Monocytes % (0.0-12.0) % Eosinophils % (0.00-5.0) % Basophils % (0.0-0.4) % Absolute Granulocytes (1.4-6.9) x10^3/uL Basophils # (0-0.4) x10^3/uL Sodium (137-145) mmol/L Potassium (3.5-5.1) mmol/L Chloride (98-107) mmol/L Carbon Dioxide (22-30) mmol/L Anion Gap (5-15) MEQ/L BUN (7-17) mg/dL Creatinine (0.52-1.04) mg/dL Estimated GFR ML/MIN Glucose (74-106) mg/dL POC Glucometer 384 H 446 H (74 to 106) mg/dL Hemoglobin A1c 8.64 H (4.5-6.0) % Calcium (8.4-10.2) mg/dL Slides for Path Review 10/22/22 10/22/22 10/22/22 Range/Units 06:53 07:39 07:39 WBC 6.6 (4.0-10.5) x10^3/uL RBC 3.64 L (4.1-5.4) x10^6/uL Hgb 8.0 L (12.0-16.0) g/dL Hct 27.8 L (35-47) % MCV 76.4 L (78-100) fL MCH 22.0 L (26-32) pg MCHC 28.8 L (32-36) g/dL RDW 18.6 H (11.5-14.0) % Plt Count 193 (150-450) x10^3/uL MPV 12.1 H (7.5-11.0) fL Gran % 90.4 H (36.0-66.0) % Immature Gran % (Auto) 0.3 (0.00-0.4) % Nucleat RBC Rel Count 0.0 (0.00-0.1) % Eos # (Auto) 0 (0-0.5) x10^3/uL Immature Gran # (Auto) 0.02 (0.00-0.03) x10^3u/L Absolute Lymphs (auto) 0.40 L (1.0-4.6) x10^3/uL Absolute Monos (auto) 0.21 (0.0-1.3) x10^3/uL Absolute Nucleated RBC 0.00 (0.00-0.01) x10^3u/L Lymphocytes % 6.1 L (24.0-44.0) % Monocytes % 3.2 (0.0-12.0) % Eosinophils % 0.0 (0.00-5.0) % Basophils % 0.0 (0.0-0.4) % Absolute Granulocytes 5.94 (1.4-6.9) x10^3/uL Basophils # 0 (0-0.4) x10^3/uL Sodium 129 L (137-145) mmol/L Potassium 4.9 (3.5-5.1) mmol/L Chloride 99 (98-107) mmol/L Carbon Dioxide 24 (22-30) mmol/L Anion Gap 11.5 (5-15) MEQ/L BUN 22 H (7-17) mg/dL Creatinine 0.50 L (0.52-1.04) mg/dL Estimated GFR > 60.0 ML/MIN Glucose 443 H (74-106) mg/dL POC Glucometer 397 H (74 to 106) mg/dL Hemoglobin A1c (4.5-6.0) % Calcium 8.5 (8.4-10.2) mg/dL Slides for Path Review YES 10/22/22 Range/Units 11:11 WBC (4.0-10.5) x10^3/uL RBC (4.1-5.4) x10^6/uL Hgb (12.0-16.0) g/dL Hct (35-47) % MCV (78-100) fL MCH (26-32) pg MCHC (32-36) g/dL RDW (11.5-14.0) % Plt Count (150-450) x10^3/uL MPV (7.5-11.0) fL Gran % (36.0-66.0) % Immature Gran % (Auto) (0.00-0.4) % Nucleat RBC Rel Count (0.00-0.1) % Eos # (Auto) (0-0.5) x10^3/uL Immature Gran # (Auto) (0.00-0.03) x10^3u/L Absolute Lymphs (auto) (1.0-4.6) x10^3/uL Absolute Monos (auto) (0.0-1.3) x10^3/uL Absolute Nucleated RBC (0.00-0.01) x10^3u/L Lymphocytes % (24.0-44.0) % Monocytes % (0.0-12.0) % Eosinophils % (0.00-5.0) % Basophils % (0.0-0.4) % Absolute Granulocytes (1.4-6.9) x10^3/uL Basophils # (0-0.4) x10^3/uL Sodium (137-145) mmol/L Potassium (3.5-5.1) mmol/L Chloride (98-107) mmol/L Carbon Dioxide (22-30) mmol/L Anion Gap (5-15) MEQ/L BUN (7-17) mg/dL Creatinine (0.52-1.04) mg/dL Estimated GFR ML/MIN Glucose (74-106) mg/dL POC Glucometer 396 H (74 to 106) mg/dL Hemoglobin A1c (4.5-6.0) % Calcium (8.4-10.2) mg/dL Slides for Path Review Micro Results-Entire Visit: Microbiology 10/20/22 16:40 Blood Culture Gram Stain - Final Blood Blood Culture - Preliminary Coagulase Negative Staph. Possible Contaminant. Clinical judgement required. NO FURTHER WORKUP WILL BE PERFORMED UNLESS PHYSICIAN REQUESTED WITHIN THE NEXT 72 HOURS Accuchecks Date 10/22/22 Date 10/22/22 Date 10/21/22 Date 10/21/22 Time 11:41 Time 07:15 Time 21:00 Time 16:26 - Radiology Exams Ordered Rad Exams-Entire Visit: Radiology Procedures Category Date Time Status CHEST 1 VIEW (PORTABLE) Stat Exams 10/20/22 16:39 Completed - Procedures and Test Procedures and Tests throughout Hospitalization: Therapy Orders & Screens 10/20/22 20:59 EKG REPEAT IN AM Comment: Respiratory Therapy Consult ROUTINE Comment: Reason For Exam: 10/20/22 23:15 Respiratory Therapy Assessment DAILY Comment: Diagnosis: shortness of breath 10/20/22 23:30 Oxygen NASAL CANNULA 2 lpm Comment: Diagnosis: shortness of breath 10/21/22 07:00 Respiratory MDI BID Comment: ADVAIR 115/21 2 PUFFS BID Diagnosis: shortness of breath 10/21/22 11:14 PT Eval & Treat (MD Order) ONCE Reason for Eval:: Deconditioning - is pt safe to d/c to home? Diagnosis: shortness of breath Discharge Exam General Appearance: no apparent distress, alert, obese Neurologic Exam: oriented x 3, cooperative Eye Exam: eyes nml inspection Ears, Nose, Throat Exam: moist mucous membranes Neck Exam: normal inspection Respiratory Exam: normal breath sounds, lungs clear, No crackles/rales, No rhonchi, No wheezing Cardiovascular Exam: regular rate/rhythm, normal heart sounds, No murmur Gastrointestinal/Abdomen Exam: soft, normal bowel sounds, No tenderness, No distention, No mass, No guarding, No rebound Back Exam: normal inspection, No rash Extremity Exam: normal inspection, No pedal edema, No swelling, No tenderness Skin Exam: normal color, warm, dry, No rash Final Diagnosis/Problem List - Final Discharge Diagnosis/Problem (1) Shortness of breath Current Visit: Yes Status: Resolved Code(s): R06.02 - SHORTNESS OF BREATH (2) COPD exacerbation Current Visit: No Status: Resolved Assessment & Plan: Will continue to treat with po steroid Code(s): J44.1 - CHRONIC OBSTRUCTIVE PULMONARY DISEASE W (ACUTE) EXACERBATION (3) Afib Current Visit: No Status: Acute Code(s): I48.91 - UNSPECIFIED ATRIAL FIBRILLATION (4) Type 2 diabetes mellitus Current Visit: No Status: Chronic (5) Ulcerative colitis Current Visit: No Status: Chronic Code(s): K51.90 - ULCERATIVE COLITIS, UNSPECIFIED, WITHOUT COMPLICATIONS (6) Muscular deconditioning Current Visit: Yes Status: Chronic Code(s): R29.898 - OT SYMPTOMS AND SIGNS INVOLVING THE MUSCULOSKELETAL SYSTEM (7) Anemia Current Visit: No Status: Chronic Code(s): D64.9 - ANEMIA, UNSPECIFIED - Discharge Disposition: Home, Self-Care Condition: Stable Prescriptions: New Prednisone 20 mg [Deltasone 20 mg] 20 mg PO DAILY 7 Days #17 tablet Continue Mesalamine [Pentasa] 500 mg PO BID Omeprazole 20 MG [Prilosec 20 mg] 20 mg PO BID Duloxetine HCl 60 mg PO DAILY Atorvastatin Calcium 10 mg PO DAILY Meclizine HCl 25 mg [Antivert 25 mg] 25 mg PO Q8H PRN PRN PRN Reason: Dizziness Levothyroxine Sodium 25 Mcg [Synthroid 25 Mcg] 25 mcg PO DAILY Isosorbide Mononitrate 60 mg [Imdur 60MG] 60 mg PO DAILY Saccharomyces Boulardii [Florastor] 250 mg PO BID Ranolazine 500 MG [Ranexa 500 MG] 500 mg PO BID Primidone 50 MG [Mysoline 50Mg] 50 mg PO TID Pravastatin Sodium 80 mg PO DAILY Nitroglycerin 0.4 mg Tablet [Nitrostat 0.4 MG Tablet] 0.4 mg SL Q5MIN PRN MR X 3 PRN PRN Reason: Chest Pain Magnesium Oxide 400 mg [Mag-Ox 400] 800 mg PO DAILY Loperamide HCl [Loperamide] 4 mg PO Q12H PRN PRN PRN Reason: Diarrhea lisinopriL [Zestril] 2.5 mg PO DAILY Fluticasone Propion/Salmeterol [Fluticasone-Salmeterol 250-50] 1 each IH BIDRT azaTHIOprine [Azathioprine] 50 mg PO BID Aripiprazole [Abilify] 2 mg PO DAILY Apixaban [Eliquis 5 mg Tablet] 5 mg PO BID Diltiazem HCl Cd [Cardizem CD ] 120 mg PO DAILY #30 cap Carvedilol [Coreg ] 6.25 mg PO BID #60 tablet Furosemide 40 mg [Lasix 40 MG] 40 mg PO DAILY Insulin Glargine,Hum.rec.anlog [Insulin Glargine] 42 units SQ HS Lorazepam 0.5 mg [Ativan 0.5 MG] 0.5 mg PO [id number] PRN PRN Reason: Anxiety Acetaminophen 325 mg [Tylenol 325 mg] 2 tab PO Q4HPRN PRN PRN Reason: Pain Albuterol Sulfate [Proventil Hfa] 2 puff IH Q6HPRN PRN PRN Reason: Shortness Of Breath Hydrocortisone [Proctocort] 28.35 gm RC Q12H PRN PRN PRN Reason: Hemorrhoids Potassium Chloride 10 meq PO DAILY Insulin Aspart [NovoLOG Insulin] See Rx Instructions .ROUTE .COMPLEX Hydrocodone/Acetaminophen [Hydrocodone-Acetamin 7.5-325] 1 tab PO BID PRN PRN Reason: Pain Metformin HCl 500 mg [Glucophage 500 MG] 500 mg PO DAILY Magnesium Hydroxide 30 ml [Milk of Magnesia 30 ml] 30 ml PO DAILY PRN PRN Reason: Constipation Follow up with: CALVIN HOLGUIN [Primary Care Provider] -
== END 2022-10-22 14:45 | disposition home health service (06) ==
LOC: ED 16:15 → MED SURG 20:47
PROVIDERS: ADMIT Family Medicine; ATTEND Family Medicine
DX: R06.02 Shortness of breath (principal); J44.1 Chronic obstructive pulmonary disease with (acute) exacerbation; I48.91 Unspecified atrial fibrillation; E11.9 Type 2 diabetes mellitus without complications; K51.90 Ulcerative colitis, unspecified, without complications; I11.0 Hypertensive heart disease with heart failure; I50.9 Heart failure, unspecified; I25.10 Atherosclerotic heart disease of native coronary artery without angina pectoris; R60.9 Edema, unspecified; R29.898 Other symptoms and signs involving the musculoskeletal system; D64.9 Anemia, unspecified; Z79.01 Long term (current) use of anticoagulants; Z79.899 Other long term (current) drug therapy; Z20.828 Contact with and (suspected) exposure to other viral communicable diseases; Z99.81 Dependence on supplemental oxygen
CPT/HCPCS: 0241U; 36000; 36415; 36430; 71045; 80048; 80053; 82947; 83036; 83880; 84145; 84484; 85025; 86850; 86900; 86901; 86905; 86922; 87040; 93005; 94640; 94760; 96374; 99285; 99291; G0378; J1817; J2920; J2930; P9016; A9270-GY; J3370

== ENCOUNTER 2022-10-25 22:41 | Observation (INO) | payer MEDICARE ==
[2022-10-25] MEDS ORDERED: DUONEB 0.5-3 MG/3 ml Neb IH ONE ×2 (23:10→23:49)
[2022-10-25] MEDS ORDERED: solu-MEDROL 125 MG, Sterile H2O 10 ml 2 ML IV ONE ×2 (23:10)
[2022-10-25] MEDS ORDERED: Magnesium 1 Gm / 100 Ml D5W*** 100 ML IV ONE (23:12)
[2022-10-25] MEDS: Magnesium 1 Gm / 100 Ml D5W*** 100 ML IV SCH (23:13)
[2022-10-25] MEDS ORDERED: Sterile H2O 10 ml IJ ONE (23:15)
[2022-10-25] MEDS ORDERED: solu-MEDROL ONE (23:15)
[2022-10-25] MEDS ORDERED: Sodium Chloride 0.9% 1000 ML 1,000 ML IV SCH (23:15)
--- NOTE | 2022-10-25 23:28 | ERPHSYRPT ---
- History of Present Illness Time Seen by Provider: 10/25/22 23:23 Source: patient, family, EMS Exam Limitations: no limitations Patient Subjective Stated Complaint: pt states she has been short of breath since 1900, pt states her back hurts and she is more SOB than usual. couging up some clear phlegm Triage Nursing Assessment: pt is alert and oriented, answers questions appropriatly, pt has swelling in BLE, HR is 106, BP 177/129. lungs clear b ilaterally. Physician History: pt has had shortness of breath/ COPD for many years and has inhalers at home. SHe was acutely SOBreath today. SHe has noted increased swelling of both legs. She has multiple co-morbidities of COPD, Ulcerative Colitis , Diabetes with glucose of 455 tonight, hptn with elevated BP urgency DBP 129 independent HX to collaborate from pt and EMS. Ordered EKG, Trops BNP, D DImer, CBC, CMP, Mg, US legs, CXR, and reviewed results with pt to direct f/u advice. Timing/Duration: hour(s) Activities at Onset: none Severity of Dyspnea-Max: moderate Severity of Dyspnea-Current: moderate Possible Cause: frequent episodes Modifying Factors: Improves With: albuterol inhaler Associated Symptoms: cough, edema, leg swelling Allergies/Adverse Reactions: cyclobenzaprine HCl [From Flexeril] Allergy (Mild, Verified 10/20/22 16:23) Rash metoclopramide [From Reglan] Allergy (Mild, Verified 10/20/22 16:23) Rash Sulfa (Sulfonamide Antibiotics) [Sulfa(Sulfonamide Antibiotics)] Allergy (Mild, Verified 10/20/22 16:23) Rash adhesive Allergy (Verified 10/20/22 16:23) Rash nalbuphine HCl [From Nubain] Adverse Reaction (Intermediate, Verified 10/20/22 16:23) Stomach Cramps patient states she had stomach "burning" and that her legs felt like "rubber bands" ciprofloxacin [From Cipro] Adverse Reaction (Mild, Verified 10/20/22 16:23) Rash meperidine HCl [From Demerol] Adverse Reaction (Mild, Verified 10/20/22 16:23) Vomiting Home Medications: Duloxetine HCl 60 mg PO DAILY 03/17/16 [History] Mesalamine [Pentasa] 500 mg PO BID 03/17/16 [History] Omeprazole 20 MG [Prilosec 20 mg] 20 mg PO BID 03/17/16 [History] Atorvastatin Calcium 10 mg PO DAILY 01/25/18 [History] Meclizine HCl 25 mg [Antivert 25 mg] 25 mg PO Q8H PRN PRN 12/05/19 [History] Isosorbide Mononitrate 60 mg [Imdur 60MG] 60 mg PO DAILY 12/31/20 [History] Levothyroxine Sodium 25 Mcg [Synthroid 25 Mcg] 25 mcg PO DAILY 12/31/20 [History] Aripiprazole [Abilify] 2 mg PO DAILY 06/03/22 [History] Fluticasone Propion/Salmeterol [Fluticasone-Salmeterol 250-50] 1 each IH BIDRT 06/03/22 [History] Loperamide HCl [Loperamide] 4 mg PO Q12H PRN PRN 06/03/22 [History] Magnesium Oxide 400 mg [Mag-Ox 400] 800 mg PO DAILY 06/03/22 [History] Nitroglycerin 0.4 mg Tablet [Nitrostat 0.4 MG Tablet] 0.4 mg SL Q5MIN PRN MR X 3 PRN 06/03/22 [History] Pravastatin Sodium 80 mg PO DAILY 06/03/22 [History] Primidone 50 MG [Mysoline 50Mg] 50 mg PO TID 06/03/22 [History] Ranolazine 500 MG [Ranexa 500 MG] 500 mg PO BID 06/03/22 [History] Saccharomyces Boulardii [Florastor] 250 mg PO BID 06/03/22 [History] azaTHIOprine [Azathioprine] 50 mg PO BID 06/03/22 [History] lisinopriL [Zestril] 2.5 mg PO DAILY 06/03/22 [History] Apixaban [Eliquis 5 mg Tablet] 5 mg PO BID 08/16/22 [History] Acetaminophen 325 mg [Tylenol 325 mg] 2 tab PO Q4HPRN PRN 10/06/22 [History] Albuterol Sulfate [Proventil Hfa] 2 puff IH Q6HPRN PRN 10/06/22 [History] Furosemide 40 mg [Lasix 40 MG] 40 mg PO DAILY 10/06/22 [History] Hydrocodone/Acetaminophen [Hydrocodone-Acetamin 7.5-325] 1 tab PO BID PRN 10/06/22 [History] Hydrocortisone [Proctocort] 28.35 gm RC Q12H PRN PRN 10/06/22 [History] Insulin Aspart [NovoLOG Insulin] See Rx Instructions .ROUTE .COMPLEX 10/06/22 [History] Insulin Glargine,Hum.rec.anlog [Insulin Glargine] 42 units SQ HS 10/06/22 [History] Lorazepam 0.5 mg [Ativan 0.5 MG] 0.5 mg PO [id number] PRN 10/06/22 [History] Magnesium Hydroxide 30 ml [Milk of Magnesia 30 ml] 30 ml PO DAILY PRN 10/06/22 [History] Metformin HCl 500 mg [Glucophage 500 MG] 500 mg PO DAILY 10/06/22 [History] Potassium Chloride 10 meq PO DAILY 10/06/22 [History] Hx Tetanus, Diphtheria Vaccination/Date Given: No (unknown) Hx Influenza Vaccination/Date Given: No Hx Pneumococcal Vaccination/Date Given: No Travel Risk - International Travel Have you traveled outside of the country in past 3 weeks: No - Coronavirus Screening Are you exhibiting any of the following symptoms?: Yes Symptoms: Shortness of Breath Close contact with a COVID-19 positive Pt in past 14-21 Days: No - Vaccine Status Have you recieved a Covid-19 vaccination: No - Review of Systems Constitutional: No Fever, No Chills Eyes: No Symptoms Ears, Nose, & Throat: No Symptoms Respiratory: Dyspnea, No Cough Cardiac: Edema, No Chest Pain, No Syncope Abdominal/Gastrointestinal: Nausea, No Abdominal Pain, No Vomiting, No Diarrhea Genitourinary Symptoms: No Dysuria Musculoskeletal: No Back Pain, No Neck Pain Skin: No Rash Neurological: No Dizziness, No Focal Weakness, No Sensory Changes Psychological: No Symptoms Endocrine: No Symptoms Hematologic/Lymphatic: No Symptoms Immunological/Allergic: No Symptoms All Other Systems: Reviewed and Negative - Past Medical History Pertinent Past Medical History: Yes Neurological History: Migraines, Peripheral Neuropathy ENT History: Cataracts Cardiac History: Coronary Artery Disease, High Cholesterol, Hypertension, Myocardial Infarction ([place]) Respiratory History: Asthma, Bronchitis, CHF, COPD, Sleep Apnea Endocrine Medical History: Diabetes Type II Musculoskeletal History: Arthritis, Degenerative Disk Disease, Fibromyalgia, Osteoarthritis GI Medical History: Crohns Disease, Diverticulitis, GERD, Irritable Bowel History: No Pertinent History Psycho-Social History: Anxiety, Depression Female Reproductive Disorders: No Pertinent History Other Medical History: HX UTI, HX Yeast Infection, Neuropathy, degenerative joint disease - Past Surgical History Past Surgical History: Yes Neuro Surgical History: No Pertinent History Cardiac: Cardiac Catheterization Respiratory: No Pertinent History Gastrointestinal: No Pertinent History Genitourinary: No Pertinent History Musculoskeletal: No Pertinent History Female Surgical History: Dilation & Curettage, Section, Tubal Ligation Other Surgical History: KIDNEY STONE REMOVAL, right 2nd toe amputated 2021. heart cath x3, no stents, clot removal rt thigh artery - Social History Smoking Status: Former smoker How long have you smoked: years Exposure to second hand smoke: No Alcohol Use: None Drug Use: none Patient Lives Alone: No Significant Family History: no pertinent family hx, diabetes, hypertension - Nursing Vital Signs Nursing Vital Signs: Initial Vital Signs Temperature 99.3 F 10/25/22 22:46 Pulse Rate 105 H 10/25/22 22:46 Respiratory Rate 24 10/25/22 22:46 Blood Pressure 177/129 10/25/22 22:46 O2 Sat by Pulse Oximetry 96 10/25/22 22:46 Pain Scale Pain Intensity 3 - Physical Exam General Appearance: no apparent distress, alert Eye Exam: PERRL/EOMI Ears, Nose, Throat Exam: hearing grossly normal, normal ENT inspection, normal pharynx Neck Exam: normal inspection, supple Respiratory Exam: airway intact, rhonchi Cardiovascular/Chest Exam: normal heart sounds, regular rate/rhythm Abdominal/Gastrointestinal Exam: soft, No tenderness, No distention, No mass Extremity Exam: non-tender, normal range of motion, no calf tenderness, pedal edema, swelling, No atiya's sign Peripheral Pulses Exam: carotid (R): 2+, carotid (L): 2+, femoral (R): 2+, femor al (L): 2+, dorsalis-pedis (R): 2+, dorsalis-pedis (L): 2+ Neurologic Exam: alert, oriented x 3, cooperative, veneer drier II-XII nml as tested, sensation nml, No motor deficits Skin Exam: normal color, warm, No dry SpO2 Interpretation: normal SpO2: 95 O2 Delivery: Room Air - Course Nursing assessment & vital signs reviewed: Yes EKG Interpreted by Me: Sinus Rhythm, Sinus Tach, Non-specific ST Changes, Other (prolonged CO ) - Radiology Exams Chest X-ray Interpretation: Reviewed by me, Other (venous congestion and cardiomegally) - Radiology Ultrasound Exam Venous Lower Extremity Ultrasound: tele radiology report, Other (No DVT) Ordered Tests: Active Orders 24 hr Category Date Time Status Operating Room Registered Nurse STAT Care 10/25/22 23:07 Active EKG-ER Only STAT Care 10/25/22 23:05 Active IV Insertion STAT Care 10/25/22 23:05 Active Pulse Oximetry (ED) STAT Care 10/25/22 23:05 Active CHEST 1 VIEW (PORTABLE) Stat Exams 10/25/22 23:05 Taken VENOUS BILATERAL EXTREMITY [US] Stat Exams 10/26/22 00:21 Taken AMYLASE Stat Lab 10/25/22 23:37 Completed CBC W DIFF Stat Lab 10/25/22 23:37 Completed CMP Stat Lab 10/25/22 23:37 Completed COVID AG -BINAX NOW RAPID TEST Stat Lab 10/26/22 00:53 Completed D-DIMER QUANTITATIVE Stat Lab 10/25/22 23:37 Completed LIPASE Stat Lab 10/25/22 23:37 Completed Lactic Acid Stat Lab 10/25/22 23:58 Completed Lactic Acid Stat Lab 10/26/22 02:01 Received MAGNESIUM Stat Lab 10/25/22 23:37 Completed NT PRO BNP Stat Lab 10/25/22 23:37 Completed TROPONIN Q4H Lab 10/25/22 23:37 Completed TROPONIN Q4H Lab 10/26/22 03:15 Ordered TROPONIN Q4H Lab 10/26/22 07:15 Ordered UA W/RFX UR CULTURE Stat Lab 10/26/22 01:52 Ordered Respiratory Therapy Assessment DAILY RT 10/25/22 23:55 Completed Medication Summary Generic Name Dose Route Start Last Admin Trade Name Freq PRN Reason Stop Dose Admin Sodium Chloride 1,000 mls @ 100 mls/hr 10/25/22 23:15 10/25/22 23:13 Sodium Chloride 0.9% 1000 Ml IV 11/24/22 23:14 100 mls/hr .Q10H MITCH Administration Magnesium Sulfate/Dextrose 100 mls @ 100 mls/hr 10/25/22 23:15 10/26/22 01:08 Magnesium 1 Gm / 100 Ml D5w IV 10/26/22 01:14 100 mls/hr Q1H MITCH Administration Discontinued Medications Generic Name Dose Route Start Last Admin Trade Name Fadia PRN Reason Stop Dose Admin Hydrocodone Bitart/Acetaminophen 1 tablet 10/26/22 01:04 10/26/22 01:08 Hydrocodone/Acetamin 10-325 Mg Tablet PO 10/26/22 01:05 1 tablet STAT ONE Administration Albuterol/Ipratropium 3 ml 10/25/22 23:10 10/25/22 23:52 Ipratropium/Albuterol Sulfate 3 Ml Ampul.Neb IH 10/25/22 23:11 3 ml STAT ONE Administration Albuterol/Ipratropium Confirm 10/25/22 23:49 Ipratropium/Albuterol Sulfate 3 Ml Ampul.Neb Administered 10/25/22 23:50 Dose 3 ml IH .STK-MED ONE Methylprednisolone Sodium 0 mg 10/25/22 23:10 10/25/22 23:15 Succinate 125 mg/ Sterile IV 10/25/22 23:11 125 mg Water 2 ml STAT ONE Administration Insulin Human Regular 10 unit 10/26/22 00:58 10/26/22 01:09 Insulin Regular, Human 1 Unit IV 10/26/22 00:59 10 unit STAT ONE Administration Insulin Human Regular Confirm 10/26/22 01:07 Insulin Regular, Human 1 Unit Administered 10/26/22 01:08 Dose 10 unit .ROUTE .STK-MED ONE Lorazepam 1 mg 10/26/22 01:52 10/26/22 01:54 Lorazepam 1 Mg Tablet PO 10/26/22 01:53 1 mg STAT ONE Administration Lorazepam Confirm 10/26/22 01:53 Lorazepam 1 Mg Tablet Administered 10/26/22 01:54 Dose 1 mg .ROUTE .STK-MED ONE Methylprednisolone Sodium Succinate Confirm 10/25/22 23:15 Methylprednis Sod Succ 125 Mg/2 Ml Vial Administered 10/25/22 23:16 Dose 125 mg .ROUTE .STK-MED ONE Sterile Water Confirm 10/25/22 23:15 Water For Injection,Sterile 10 Ml Vial Administered 10/25/22 23:16 Dose 10 ml IJ .Enthuse-MED ONE Lab/Rad Data: Laboratory Result Diagrams 10/25/22 23:37 10/25/22 23:37 Laboratory Results 10/26/22 10/25/22 10/25/22 Range/Units 00:53 23:58 23:37 WBC (4.0-10.5) x10^3/uL RBC (4.1-5.4) x10^6/uL Hgb (12.0-16.0) g/dL Hct (35-47) % MCV (78-100) fL MCH (26-32) pg MCHC (32-36) g/dL RDW (11.5-14.0) % Plt Count (150-450) x10^3/uL MPV (7.5-11.0) fL Gran % (36.0-66.0) % Immature Gran % (Auto) (0.00-0.4) % Nucleat RBC Rel Count (0.00-0.1) % Eos # (Auto) (0-0.5) x10^3/uL Immature Gran # (Auto) (0.00-0.03) x10^3u/L Absolute Lymphs (auto) (1.0-4.6) x10^3/uL Absolute Monos (auto) (0.0-1.3) x10^3/uL Absolute Nucleated RBC (0.00-0.01) x10^3u/L Lymphocytes % (24.0-44.0) % Monocytes % (0.0-12.0) % Eosinophils % (0.00-5.0) % Basophils % (0.0-0.4) % Absolute Granulocytes (1.4-6.9) x10^3/uL Basophils # (0-0.4) x10^3/uL D-Dimer (0.0-0.50) mg/L Sodium (137-145) mmol/L Potassium (3.5-5.1) mmol/L Chloride (98-107) mmol/L Carbon Dioxide (22-30) mmol/L Anion Gap (5-15) MEQ/L BUN (7-17) mg/dL Creatinine (0.52-1.04) mg/dL Estimated GFR ML/MIN Glucose (74-106) mg/dL Lactic Acid 2.5 H (0.4-2.0) Calcium (8.4-10.2) mg/dL Magnesium (1.6-2.3) mg/dL Total Bilirubin (0.2-1.3) mg/dL AST (14-36) U/L ALT (0-35) U/L Alkaline Phosphatase (38-126) U/L Troponin I (0.000-0.034) ng/mL NT-Pro-B Natriuret Pep (0-900) pg/mL Serum Total Protein (6.3-8.2) g/dL Albumin (3.5-5.0) g/dL Amylase (30-110) U/L Lipase (23-300) U/L Influenza Type A Ag NEGATIVE (NEGATIVE) Influenza Type B Ag NEGATIVE (NEGATIVE) RSV (PCR) NEGATIVE (Negative) SARS-CoV-2 (PCR) POSITIVE A (NEGATIVE) SARS-CoV-2 Ag (Rapid) NEGATIVE (NEGATIVE) Slides for Path Review 10/25/22 10/25/22 10/25/22 Range/Units 23:37 23:37 23:37 WBC (4.0-10.5) x10^3/uL RBC (4.1-5.4) x10^6/uL Hgb (12.0-16.0) g/dL Hct (35-47) % MCV (78-100) fL MCH (26-32) pg MCHC (32-36) g/dL RDW (11.5-14.0) % Plt Count (150-450) x10^3/uL MPV (7.5-11.0) fL Gran % (36.0-66.0) % Immature Gran % (Auto) (0.00-0.4) % Nucleat RBC Rel Count (0.00-0.1) % Eos # (Auto) (0-0.5) x10^3/uL Immature Gran # (Auto) (0.00-0.03) x10^3u/L Absolute Lymphs (auto) (1.0-4.6) x10^3/uL Absolute Monos (auto) (0.0-1.3) x10^3/uL Absolute Nucleated RBC (0.00-0.01) x10^3u/L Lymphocytes % (24.0-44.0) % Monocytes % (0.0-12.0) % Eosinophils % (0.00-5.0) % Basophils % (0.0-0.4) % Absolute Granulocytes (1.4-6.9) x10^3/uL Basophils # (0-0.4) x10^3/uL D-Dimer 0.77 H* (0.0-0.50) mg/L Sodium 135 L (137-145) mmol/L Potassium 3.8 (3.5-5.1) mmol/L Chloride 101 (98-107) mmol/L Carbon Dioxide 30 (22-30) mmol/L Anion Gap 8.2 (5-15) MEQ/L BUN 13 (7-17) mg/dL Creatinine 0.74 (0.52-1.04) mg/dL Estimated GFR > 60.0 ML/MIN Glucose 358 H (74-106) mg/dL Lactic Acid (0.4-2.0) Calcium 8.3 L (8.4-10.2) mg/dL Magnesium 1.7 (1.6-2.3) mg/dL Total Bilirubin 0.50 (0.2-1.3) mg/dL AST 54 H (14-36) U/L ALT 36 H (0-35) U/L Alkaline Phosphatase 348 H (38-126) U/L Troponin I < 0.012 (0.000-0.034) ng/mL NT-Pro-B Natriuret Pep 1150 H (0-900) pg/mL Serum Total Protein 7.0 (6.3-8.2) g/dL Albumin 3.5 (3.5-5.0) g/dL Amylase 62 (30-110) U/L Lipase 85 (23-300) U/L Influenza Type A Ag (NEGATIVE) Influenza Type B Ag (NEGATIVE) RSV (PCR) (Negative) SARS-CoV-2 (PCR) (NEGATIVE) SARS-CoV-2 Ag (Rapid) (NEGATIVE) Slides for Path Review 10/25/22 Range/Units 23:37 WBC 5.4 (4.0-10.5) x10^3/uL RBC 4.18 (4.1-5.4) x10^6/uL Hgb 9.2 L (12.0-16.0) g/dL Hct 32.7 L (35-47) % MCV 78.2 (78-100) fL MCH 22.0 L (26-32) pg MCHC 28.1 L (32-36) g/dL RDW 18.7 H (11.5-14.0) % Plt Count 201 (150-450) x10^3/uL MPV 11.8 H (7.5-11.0) fL Gran % 75.7 H (36.0-66.0) % Immature Gran % (Auto) 0.2 (0.00-0.4) % Nucleat RBC Rel Count 0.0 (0.00-0.1) % Eos # (Auto) 0.22 (0-0.5) x10^3/uL Immature Gran # (Auto) 0.01 (0.00-0.03) x10^3u/L Absolute Lymphs (auto) 0.60 L (1.0-4.6) x10^3/uL Absolute Monos (auto) 0.46 (0.0-1.3) x10^3/uL Absolute Nucleated RBC 0.00 (0.00-0.01) x10^3u/L Lymphocytes % 11.2 L (24.0-44.0) % Monocytes % 8.6 (0.0-12.0) % Eosinophils % 4.1 (0.00-5.0) % Basophils % 0.2 (0.0-0.4) % Absolute Granulocytes 4.08 (1.4-6.9) x10^3/uL Basophils # 0.01 (0-0.4) x10^3/uL D-Dimer (0.0-0.50) mg/L Sodium (137-145) mmol/L Potassium (3.5-5.1) mmol/L Chloride (98-107) mmol/L Carbon Dioxide (22-30) mmol/L Anion Gap (5-15) MEQ/L BUN (7-17) mg/dL Creatinine (0.52-1.04) mg/dL Estimated GFR ML/MIN Glucose (74-106) mg/dL Lactic Acid (0.4-2.0) Calcium (8.4-10.2) mg/dL Magnesium (1.6-2.3) mg/dL Total Bilirubin (0.2-1.3) mg/dL AST (14-36) U/L ALT (0-35) U/L Alkaline Phosphatase (38-126) U/L Troponin I (0.000-0.034) ng/mL NT-Pro-B Natriuret Pep (0-900) pg/mL Serum Total Protein (6.3-8.2) g/dL Albumin (3.5-5.0) g/dL Amylase (30-110) U/L Lipase (23-300) U/L Influenza Type A Ag (NEGATIVE) Influenza Type B Ag (NEGATIVE) RSV (PCR) (Negative) SARS-CoV-2 (PCR) (NEGATIVE) SARS-CoV-2 Ag (Rapid) (NEGATIVE) Slides for Path Review YES - Progress Progress: improved, re-examined Air Movement: good Progress Note: 10/26/22 01:00 pt was unable to tolerate albuterol due to prior rxn hx , and the IV would not sustain PE protocol so was DC,d to preserve IV for Tx. This will complicate the pts care efforts. 10/26/22 02:39 discussed with pt and consulted Dr. Wagner and all agree best to place pt in on obs to control DM, hptn, CHF and COPD. we discussed the delicate balance for this pt being relatively dehydrated from DM and needing fluids but still having some mild CHF to watch out for during rehydration. ( so No diuresis yet) we discussed D dimer and will wait for VQ scan in am and tx with proph lovenox meantime. discussed risk and benefit of lovenox and antibiotics with pt and she wishes to proceed. Blood Culture(s) Obtained: No Antibiotics given: No Discussed with : Patricia Will see patient in: hospital (observation) Counseled pt/family regarding: lab results, diagnosis, need for follow-up, rad results - Departure Departure Disposition: Observation Clinical Impression: CHF (congestive heart failure), Diabetes mellitus type II, uncontrolled, Elevated d-dimer, COPD (chronic obstructive pulmonary disease), COPD exacerbation, History of ulcerative colitis, Poorly-controlled hypertension Condition: Good Critical Care Time: No Referrals: GEORGETTE,CALVIN F [Primary Care Provider] - Follow up/PCP as directed Instructions: Heart Failure, Chronic Obstructive Pulmonary Disease
[2022-10-25 23:42] LABS: Absolute Neutrophil Ct (ANC) 4.08 x10^3/uL (1.4-6.9); Basophil (Absolute #) 0.01 x10^3/uL (0-0.4); Eosinophil % 4.1 % (0.00-5.0); Eosinophil (Absolute #) 0.22 x10^3/uL (0-0.5); Hematocrit 32.7 % (35-47); Hemoglobin 9.2 g/dL (12.0-16.0); Lymphocytes % 11.2 % (24.0-44.0); Mean Cell Volume 78.2 fL (78-100); Mean Corpuscular Hgb Concent. 28.1 g/dL (32-36); Mean Platelet Volume 11.8 fL (7.5-11.0); Monocyte (Absolute #) 0.46 x10^3/uL (0.0-1.3); Monocytes % 8.6 % (0.0-12.0); Neutrophil % 75.7 % (36.0-66.0); Platelet Count 201 x10^3/uL (150-450); Red Blood Count 4.18 x10^6/uL (4.1-5.4); Red Cell Distribution Width 18.7 % (11.5-14.0); White Blood Count 5.4 x10^3/uL (4.0-10.5)
[2022-10-25 23:58] LABS: ALBUMIN 3.5 g/dL (3.5-5.0); ALKALINE PHOSPHATASE 348 U/L (38-126); AMYLASE 62 U/L (30-110); ANION GAP 8.2 MEQ/L (5-15); BLOOD UREA NITROGEN 13 mg/dL (7-17); CHLORIDE 101 mmol/L (98-107); Calcium 8.3 mg/dL (8.4-10.2); Carbon Dioxide 30 mmol/L (22-30); Creatinine 1 0.74 mg/dL (0.52-1.04); EST GLOMERULAR FILTRATION RATE > 60.0 ML/MIN; Glucose 358 mg/dL (74-106); LIPASE 85 U/L (23-300); MAGNESIUM 1.7 mg/dL (1.6-2.3); NT PRO BNP 1150 pg/mL (0-900); Potassium 3.8 mmol/L (3.5-5.1); SGOT/AST 54 U/L (14-36); SGPT/ALT 36 U/L (0-35); SODIUM 135 mmol/L (137-145)
[2022-10-26 00:16] LABS: INFLUENZA A NEGATIVE (NEGATIVE); INFLUENZA B NEGATIVE (NEGATIVE); RESPIRATORY SYNCTIAL VIRUS NEGATIVE (Negative)
[2022-10-26 00:22] LABS: SARS-CoV-2 Xpert Express POSITIVE (NEGATIVE)
[2022-10-26] MEDS ORDERED: HUMULIN R IV ONE (00:58)
[2022-10-26] MEDS ORDERED: HYDROCODONE-ACETAMIN 10-325 MG PO ONE (01:04)
[2022-10-26] MEDS ORDERED: HUMULIN R ONE (01:07)
[2022-10-26] MEDS: Magnesium 1 Gm / 100 Ml D5W*** 100 ML IV SCH (01:08)
[2022-10-26 01:10] LABS: Slide Review 1 YES
[2022-10-26] MEDS ORDERED: Ativan 1 MG PO ONE (01:52)
[2022-10-26] MEDS ORDERED: Ativan 1 MG ONE (01:53)
[2022-10-26 03:11] LABS: Appearance Turbid (Clear); Bacteria Many /HPF (None Seen); Bilirubin Negative (Negative); Blood NHT (Negative); Epithelial Cells Rare /HPF (None Seen); Glucose, Urine >=1000 mg/dL (Negative); Hyaline Casts NONE SEEN /LPF (0-2); Ketones Negative (Negative); Leukocyte Esterase Moderate (Negative); Nitrite Positive (Negative); Ph 7.5 (4.6-8.0); Protein,Urine Dip Trace (Negative); RBC 21-50 /HPF (0-5); Urobilinogen 0.2 mg/dL (0.2); WBC 51-100 /HPF (0-5)
[2022-10-26 03:12] LABS: ADD URINE CULTURE? YES (NO)
[2022-10-26] MEDS ORDERED: HYDROCODONE-ACETAMIN 10-325 MG PO PRN (03:51)
[2022-10-26] MEDS ORDERED: Ativan 1 MG PO PRN (03:51)
[2022-10-26 05:38] LABS: Hematocrit 33.6 % (35-47); Hemoglobin 9.6 g/dL (12.0-16.0); Mean Cell Volume 79.1 fL (78-100); Mean Corpuscular Hemoglobin 22.6 pg (26-32); Mean Corpuscular Hgb Concent. 28.6 g/dL (32-36); Mean Platelet Volume 11.5 fL (7.5-11.0); Platelet Count 153 x10^3/uL (150-450); Red Blood Count 4.25 x10^6/uL (4.1-5.4); Red Cell Distribution Width 19.4 % (11.5-14.0); White Blood Count 4.9 x10^3/uL (4.0-10.5)
[2022-10-26] MEDS ORDERED: VENTOLIN COMMON CANISTER IH PRN (06:01)
[2022-10-26] MEDS ORDERED: solu-MEDROL ONE (06:02)
[2022-10-26] MEDS ORDERED: Sterile H2O 10 ml IJ ONE (06:02)
[2022-10-26] MEDS ORDERED: PIPERACILLIN/TAZOBACTAM IV ONE (06:03)
[2022-10-26] MEDS ORDERED: Sodium Chloride 100ML MINI-BAG PLUS 100 ML IV ONE (06:04)
[2022-10-26] MEDS: PIPERACILLIN/TAZOBACTAM 3.375 GM in Sodium Chloride 100ML MINI-BAG PLUS 100 ML IV SCH ×4 (06:06→23:35)
[2022-10-26] MEDS: solu-MEDROL 60 MG, Sterile H2O 10 ml 2 ML IV SCH ×8 (06:07→23:35)
[2022-10-26 06:09] LABS: ALBUMIN 3.6 g/dL (3.5-5.0); ALKALINE PHOSPHATASE 386 U/L (38-126); ANION GAP 10.9 MEQ/L (5-15); BLOOD UREA NITROGEN 15 mg/dL (7-17); CHLORIDE 102 mmol/L (98-107); Calcium 8.4 mg/dL (8.4-10.2); Carbon Dioxide 24 mmol/L (22-30); Creatinine 1 0.55 mg/dL (0.52-1.04); EST GLOMERULAR FILTRATION RATE > 60.0 ML/MIN; Glucose 426 mg/dL (74-106); Potassium 4.4 mmol/L (3.5-5.1); SGOT/AST 52 U/L (14-36); SGPT/ALT 41 U/L (0-35); SODIUM 132 mmol/L (137-145); Total Protein 7.3 g/dL (6.3-8.2)
[2022-10-26] MEDS: Advair Hfa 115/21 Common canister IH SCH ×2 (07:14→18:29)
[2022-10-26 07:25] LABS: Slide Review YES
[2022-10-26] MEDS: HUMALOG SQ PRN ×4 (07:53→23:34)
[2022-10-26] MEDS: Zestril 5 MG PO SCH (07:53)
[2022-10-26] MEDS: ELIQUIS 2.5 MG TABLET PO SCH ×2 (07:54→21:18)
[2022-10-26] MEDS: Coreg PO SCH ×2 (07:54→21:18)
[2022-10-26] MEDS: Sodium Chloride 0.9% 1000 ML 1,000 ML IV SCH ×2 (07:55→21:43)
--- NOTE | 2022-10-26 08:42 | XRAY ---
Indication: Short of breath. Comparison: October 20, 2022 Portable chest remains underinflated with grossly stable bibasilar subsegmental atelectasis/scarring, right hemidiaphragm elevation, and borderline cardiomegaly. Remaining upper lungs again clear. No new/acute findings.
--- NOTE | 2022-10-26 08:44 | XRAY ---
Indication: Bilateral leg swelling, pain, and short of breath. Two-dimensional sonogram and color Doppler imaging of the major venous vessels of the left and right leg performed. Comparison: None Sonogram limited due to patient body habitus. No obvious thrombus seen in the examined deep venous vessels of the left and right leg including greater saphenous vein. Veins demonstrate normal compressibility. Venous waveforms are normal with and without augmentation. Impression: Left and right legs grossly negative for DVT. Comment: Preliminary report was given.
[2022-10-26] MEDS ORDERED: Coreg 3.125 MG PO SCH (10:00)
[2022-10-26] MEDS ORDERED: ANTIVERT 25 MG PO PRN (11:20)
[2022-10-26] MEDS ORDERED: HYDROCORTISONE RC PRN (11:20)
[2022-10-26] MEDS ORDERED: TYLENOL 325 MG PO PRN (11:20)
[2022-10-26] MEDS ORDERED: MILK OF MAGNESIA 30 ML PO PRN (11:20)
[2022-10-26 11:42] LABS: MAGNESIUM 2.2 mg/dL (1.6-2.3); TSH, 3RD Generation 0.709 mIU/L (0.47-4.68)
[2022-10-26] MEDS ORDERED: CORTISONE 1% CREAM TOP PRN (11:46)
[2022-10-26] MEDS ORDERED: MEDICATION INTERVENTION MC SCH (12:00)
[2022-10-26] MEDS: Abilify 10 MG PO SCH (12:27)
[2022-10-26] MEDS: Cymbalta 30 MG Capsule PO SCH (12:27)
[2022-10-26] MEDS: MAG-OX 400 PO SCH (12:27)
[2022-10-26] MEDS: Ranexa 500 MG PO SCH ×2 (12:27→21:19)
[2022-10-26] MEDS: Zocor 10MG PO SCH (12:29)
[2022-10-26] MEDS: Protonix 40MG Tablet PO SCH ×2 (12:29→21:19)
[2022-10-26] MEDS: Lasix 40 MG PO SCH (12:29)
[2022-10-26] MEDS: Klor Con PO SCH (12:30)
[2022-10-26] MEDS: NON-FORMULARY ITEM PO SCH ×2 (12:30→21:19)
[2022-10-26] MEDS: Cardizem CD PO SCH (12:30)
[2022-10-26] MEDS: Imdur 60MG PO SCH (12:30)
[2022-10-26] MEDS: Acidophilus TABLET PO SCH ×2 (12:30→21:18)
[2022-10-26] MEDS: Glucophage 500 MG PO SCH (12:30)
[2022-10-26] MEDS: SYNTHROID 25 MCG PO SCH (12:30)
--- NOTE | 2022-10-26 12:41 | XRAY ---
Indication: Chest pain and short of breath. High d-dimer. History of PE. Negative limited CT pulmonary embolus exam and negative bilateral leg venous ultrasound. Comparison: None Patient received 5.8 mCi technetium 99 MAA for the perfusion portion of the exam. Patient inhaled 34.5 mCi of aerosolized technetium 99 DTPA for the ventilation portion of the exam. Multiple planar images obtained. Perfusion images demonstrates homogeneous radiopharmaceutical activity bilaterally. No segmental/subsegmental perfusion defects. Ventilation images also demonstrates homogeneous radiopharmaceutical activity bilaterally. Incidental presumed chronic right hemidiaphragm elevation on both ventilation/perfusion images. Impression: Nuclear medicine ventilation/perfusion scan is normal.
[2022-10-26] MEDS: MYSOLINE 50MG PO SCH ×2 (15:18→21:18)
[2022-10-26] MEDS ORDERED: Zofran 4 MG/2 ML VIAL IV PRN (15:20)
--- NOTE | 2022-10-26 20:12 | PCM.HP ---
History of Present Illness - Chief Complaint Chief Complaint: Exac COPD, Uncontrolled DM, Elevated D-Dimer History of Present Illness: is a 62 year old female who presented to ER with progressive worsening of shortness of breath . Has COPD and recent Covid ,now Ag negative. Medications & Allergies Home Medications: Home Medication List Duloxetine HCl 60 mg PO DAILY 03/17/16 [History Confirmed 10/26/22] Mesalamine [Pentasa] 500 mg PO BID 03/17/16 [History Confirmed 10/26/22] Omeprazole 20 MG [Prilosec 20 mg] 20 mg PO BID 03/17/16 [History Confirmed 10/26/22] Atorvastatin Calcium 10 mg PO DAILY 01/25/18 [History Confirmed 10/26/22] Meclizine HCl 25 mg [Antivert 25 mg] 25 mg PO Q8H PRN PRN 12/05/19 [History Confirmed 10/26/22] Isosorbide Mononitrate 60 mg [Imdur 60MG] 60 mg PO DAILY 12/31/20 [History Confirmed 10/26/22] Levothyroxine Sodium 25 Mcg [Synthroid 25 Mcg] 25 mcg PO DAILY 12/31/20 [History Confirmed 10/26/22] Aripiprazole [Abilify] 2 mg PO DAILY 06/03/22 [History Confirmed 10/26/22] Fluticasone Propion/Salmeterol [Fluticasone-Salmeterol 250-50] 1 each IH BIDRT 06/03/22 [History Confirmed 10/26/22] Loperamide HCl [Loperamide] 4 mg PO Q12H PRN PRN 06/03/22 [History Confirmed 10/26/22] Magnesium Oxide 400 mg [Mag-Ox 400] 800 mg PO DAILY 06/03/22 [History Confirmed 10/26/22] Nitroglycerin 0.4 mg Tablet [Nitrostat 0.4 MG Tablet] 0.4 mg SL Q5MIN PRN MR X 3 PRN 06/03/22 [History Confirmed 10/26/22] Pravastatin Sodium 80 mg PO DAILY 06/03/22 [History Confirmed 10/26/22] Primidone 50 MG [Mysoline 50Mg] 50 mg PO TID 06/03/22 [History Confirmed 10/26/22] Ranolazine 500 MG [Ranexa 500 MG] 500 mg PO BID 06/03/22 [History Confirmed 10/26/22] Saccharomyces Boulardii [Florastor] 250 mg PO BID 06/03/22 [History Confirmed 10/26/22] azaTHIOprine [Azathioprine] 50 mg PO BID 06/03/22 [History Confirmed 10/26/22] lisinopriL [Zestril] 2.5 mg PO DAILY 06/03/22 [History Confirmed 10/26/22] Apixaban [Eliquis 5 mg Tablet] 5 mg PO BID 08/16/22 [History Confirmed 10/26/22] Carvedilol [Coreg ] 6.25 mg PO BID #60 tablet 08/19/22 [Rx Confirmed 10/26/22] Diltiazem HCl Cd [Cardizem CD ] 120 mg PO DAILY #30 cap 08/19/22 [Rx Confirmed 10/26/22] Acetaminophen 325 mg [Tylenol 325 mg] 2 tab PO Q4HPRN PRN 10/06/22 [History Confirmed 10/26/22] Albuterol Sulfate [Proventil Hfa] 2 puff IH Q6HPRN PRN 10/06/22 [History Confirmed 10/26/22] Furosemide 40 mg [Lasix 40 MG] 40 mg PO DAILY 10/06/22 [History Confirmed 10/26/22] Hydrocodone/Acetaminophen [Hydrocodone-Acetamin 7.5-325] 1 tab PO BID PRN 10/06/22 [History Confirmed 10/26/22] Hydrocortisone [Proctocort] 28.35 gm RC Q12H PRN PRN 10/06/22 [History Confirmed 10/26/22] Insulin Aspart [NovoLOG Insulin] See Rx Instructions .ROUTE .COMPLEX 10/06/22 [History Confirmed 10/26/22] Insulin Glargine,Hum.rec.anlog [Insulin Glargine] 42 units SQ HS 10/06/22 [History Confirmed 10/26/22] Lorazepam 0.5 mg [Ativan 0.5 MG] 0.5 mg PO [id number] PRN 10/06/22 [History Confirmed 10/26/22] Magnesium Hydroxide 30 ml [Milk of Magnesia 30 ml] 30 ml PO DAILY PRN 10/06/22 [History Confirmed 10/26/22] Metformin HCl 500 mg [Glucophage 500 MG] 500 mg PO DAILY 10/06/22 [History Confirmed 10/26/22] Potassium Chloride 10 meq PO DAILY 10/06/22 [History Confirmed 10/26/22] Prednisone 20 mg [Deltasone 20 mg] 20 mg PO DAILY 7 Days #17 tablet 10/22/22 [Rx Confirmed 10/26/22] Allergies/Adverse Reactions: Allergies Allergy/AdvReac Type Severity Reaction Status Date / Time cyclobenzaprine HCl Allergy Mild Rash Verified 10/26/22 02:40 [From Flexeril] metoclopramide [From Reglan] Allergy Mild Rash Verified 10/26/22 02:40 Sulfa (Sulfonamide Allergy Mild Rash Verified 10/26/22 02:40 Antibiotics) [Sulfa(Sulfonamide Antibiotics)] adhesive Allergy Rash Verified 10/26/22 02:40 nalbuphine HCl [From Nubain] AdvReac Intermediate Stomach Verified 10/26/22 02:40 Cramps ciprofloxacin [From Cipro] AdvReac Mild Rash Verified 10/26/22 02:40 meperidine HCl [From Demerol] AdvReac Mild Vomiting Verified 10/26/22 02:40 - Past Medical History Past Medical History: Yes Neurological History: Migraines, Peripheral Neuropathy ENT History: Cataracts Cardiac History: Coronary Artery Disease, High Cholesterol, Hypertension, Myocardial Infarction ([place]) Respiratory History: Asthma, Bronchitis, CHF, COPD, Sleep Apnea Endocrine Medical History: Diabetes Type II Musculoskelatal History: Arthritis, Degenerative Disk Disease, Fibromyalgia, Osteoarthritis GI Medical History: Crohns Disease, Diverticulitis, GERD, Irritable Bowel History: No Pertinent History Pyscho-Social History: Anxiety, Depression Reproductive Disorders: No Pertinent History Comment: HX UTI, HX Yeast Infection, Neuropathy, degenerative joint disease - Past Surgical History Past Surgical History: Yes Neuro Surgical History: No Pertinent History Cardiac History: Cardiac Catheterization Respiratory Surgery: No Pertinent History GI Surgical History: No Pertinent History Genitourinary Surgical Hx: No Pertinent History Musculskeletal Surgical Hx: No Pertinent History Female Surgical History: Dilation & Curettage, Section, Tubal Ligation Other Surgical History: KIDNEY STONE REMOVAL, right 2nd toe amputated 2021. heart cath x3, no stents, clot removal rt thigh artery - Social History Smoking Status: Former smoker How long have you smoked: years Exposure to second hand smoke: No Alcohol: None Drug Use: none Significant Family History: no pertinent family hx, diabetes, hypertension - Physical Exam Vital Signs: Vital Signs - 24 hr Temp Pulse Resp BP Pulse Ox 10/26/22 19:27 98.0 F 105 H 16 127/73 92 L 10/26/22 18:29 103 H 16 95 10/26/22 17:47 97.7 F 105 H 16 188/90 98 10/26/22 14:40 105 H 16 188/90 98 10/26/22 11:28 97.7 F 101 H 17 164/82 95 10/26/22 07:15 99 H 18 92 L 10/26/22 07:09 98.6 F 96 H 17 187/96 91 L 10/26/22 05:49 89 L 10/26/22 05:30 96 H 22 89 L 10/26/22 05:00 204/96 10/26/22 03:58 97.8 F 99 H 32 H 203/112 95 10/26/22 03:20 95 H 32 H 203/111 95 10/26/22 02:51 95 10/26/22 02:11 101 H 18 194/113 100 10/26/22 01:16 95 H 18 98 10/26/22 00:14 96 H 20 196/86 98 10/25/22 23:55 96 H 24 97 10/25/22 23:05 97 H 20 196/96 98 10/25/22 22:46 99.3 F 105 H 24 177/129 95 Results - Labs Lab/Micro Results: Lab Results-Last 24 Hours 10/25/22 10/25/22 10/25/22 Range/Units 23:37 23:37 23:37 WBC 5.4 (4.0-10.5) x10^3/uL RBC 4.18 (4.1-5.4) x10^6/uL Hgb 9.2 L (12.0-16.0) g/dL Hct 32.7 L (35-47) % MCV 78.2 (78-100) fL MCH 22.0 L (26-32) pg MCHC 28.1 L (32-36) g/dL RDW 18.7 H (11.5-14.0) % Plt Count 201 (150-450) x10^3/uL MPV 11.8 H (7.5-11.0) fL Gran % 75.7 H (36.0-66.0) % Immature Gran % (Auto) 0.2 (0.00-0.4) % Nucleat RBC Rel Count 0.0 (0.00-0.1) % Eos # (Auto) 0.22 (0-0.5) x10^3/uL Immature Gran # (Auto) 0.01 (0.00-0.03) x10^3u/L Absolute Lymphs (auto) 0.60 L (1.0-4.6) x10^3/uL Absolute Monos (auto) 0.46 (0.0-1.3) x10^3/uL Absolute Nucleated RBC 0.00 (0.00-0.01) x10^3u/L Lymphocytes % 11.2 L (24.0-44.0) % Monocytes % 8.6 (0.0-12.0) % Eosinophils % 4.1 (0.00-5.0) % Basophils % 0.2 (0.0-0.4) % Absolute Granulocytes 4.08 (1.4-6.9) x10^3/uL Basophils # 0.01 (0-0.4) x10^3/uL D-Dimer 0.77 H* (0.0-0.50) mg/L Sodium 135 L (137-145) mmol/L Potassium 3.8 (3.5-5.1) mmol/L Chloride 101 (98-107) mmol/L Carbon Dioxide 30 (22-30) mmol/L Anion Gap 8.2 (5-15) MEQ/L BUN 13 (7-17) mg/dL Creatinine 0.74 (0.52-1.04) mg/dL Estimated GFR > 60.0 ML/MIN Glucose 358 H (74-106) mg/dL POC Glucometer (74 to 106) mg/dL Lactic Acid (0.4-2.0) Calcium 8.3 L (8.4-10.2) mg/dL Magnesium 1.7 (1.6-2.3) mg/dL Total Bilirubin 0.50 (0.2-1.3) mg/dL AST 54 H (14-36) U/L ALT 36 H (0-35) U/L Alkaline Phosphatase 348 H (38-126) U/L Troponin I (0.000-0.034) ng/mL NT-Pro-B Natriuret Pep 1150 H (0-900) pg/mL Serum Total Protein 7.0 (6.3-8.2) g/dL Albumin 3.5 (3.5-5.0) g/dL Amylase 62 (30-110) U/L Lipase 85 (23-300) U/L TSH 3rd Generation (0.47-4.68) mIU/L Urine Color (Yellow) Urine Appearance (Clear) Urine pH (4.6-8.0) Ur Specific Froid (1.005-1.030) Urine Protein (Negative) Urine Glucose (UA) (Negative) mg/dL Urine Ketones (Negative) Urine Blood (Negative) Urine Nitrite (Negative) Urine Bilirubin (Negative) Urine Urobilinogen (0.2) mg/dL Ur Leukocyte Esterase (Negative) U Hyaline Cast (Auto) (0-2) /LPF Urine Microscopic RBC (0-5) /HPF Urine Microscopic WBC (0-5) /HPF Ur Epithelial Cells (None Seen) /HPF Urine Bacteria (None Seen) /HPF Urine Culture Reflexed (NO) Influenza Type A Ag (NEGATIVE) Influenza Type B Ag (NEGATIVE) RSV (PCR) (Negative) SARS-CoV-2 (PCR) (NEGATIVE) SARS-CoV-2 Ag (Rapid) (NEGATIVE) Slides for Path Review YES 10/25/22 10/25/22 10/25/22 Range/Units 23:37 23:37 23:58 WBC (4.0-10.5) x10^3/uL RBC (4.1-5.4) x10^6/uL Hgb (12.0-16.0) g/dL Hct (35-47) % MCV (78-100) fL MCH (26-32) pg MCHC (32-36) g/dL RDW (11.5-14.0) % Plt Count (150-450) x10^3/uL MPV (7.5-11.0) fL Gran % (36.0-66.0) % Immature Gran % (Auto) (0.00-0.4) % Nucleat RBC Rel Count (0.00-0.1) % Eos # (Auto) (0-0.5) x10^3/uL Immature Gran # (Auto) (0.00-0.03) x10^3u/L Absolute Lymphs (auto) (1.0-4.6) x10^3/uL Absolute Monos (auto) (0.0-1.3) x10^3/uL Absolute Nucleated RBC (0.00-0.01) x10^3u/L Lymphocytes % (24.0-44.0) % Monocytes % (0.0-12.0) % Eosinophils % (0.00-5.0) % Basophils % (0.0-0.4) % Absolute Granulocytes (1.4-6.9) x10^3/uL Basophils # (0-0.4) x10^3/uL D-Dimer (0.0-0.50) mg/L Sodium (137-145) mmol/L Potassium (3.5-5.1) mmol/L Chloride (98-107) mmol/L Carbon Dioxide (22-30) mmol/L Anion Gap (5-15) MEQ/L BUN (7-17) mg/dL Creatinine (0.52-1.04) mg/dL Estimated GFR ML/MIN Glucose (74-106) mg/dL POC Glucometer (74 to 106) mg/dL Lactic Acid 2.5 H (0.4-2.0) Calcium (8.4-10.2) mg/dL Magnesium (1.6-2.3) mg/dL Total Bilirubin (0.2-1.3) mg/dL AST (14-36) U/L ALT (0-35) U/L Alkaline Phosphatase (38-126) U/L Troponin I < 0.012 (0.000-0.034) ng/mL NT-Pro-B Natriuret Pep (0-900) pg/mL Serum Total Protein (6.3-8.2) g/dL Albumin (3.5-5.0) g/dL Amylase (30-110) U/L Lipase (23-300) U/L TSH 3rd Generation (0.47-4.68) mIU/L Urine Color (Yellow) Urine Appearance (Clear) Urine pH (4.6-8.0) Ur Specific Froid (1.005-1.030) Urine Protein (Negative) Urine Glucose (UA) (Negative) mg/dL Urine Ketones (Negative) Urine Blood (Negative) Urine Nitrite (Negative) Urine Bilirubin (Negative) Urine Urobilinogen (0.2) mg/dL Ur Leukocyte Esterase (Negative) U Hyaline Cast (Auto) (0-2) /LPF Urine Microscopic RBC (0-5) /HPF Urine Microscopic WBC (0-5) /HPF Ur Epithelial Cells (None Seen) /HPF Urine Bacteria (None Seen) /HPF Urine Culture Reflexed (NO) Influenza Type A Ag NEGATIVE (NEGATIVE) Influenza Type B Ag NEGATIVE (NEGATIVE) RSV (PCR) NEGATIVE (Negative) SARS-CoV-2 (PCR) POSITIVE A (NEGATIVE) SARS-CoV-2 Ag (Rapid) (NEGATIVE) Slides for Path Review 10/26/22 10/26/22 10/26/22 Range/Units 00:53 02:01 02:47 WBC (4.0-10.5) x10^3/uL RBC (4.1-5.4) x10^6/uL Hgb (12.0-16.0) g/dL Hct (35-47) % MCV (78-100) fL MCH (26-32) pg MCHC (32-36) g/dL RDW (11.5-14.0) % Plt Count (150-450) x10^3/uL MPV (7.5-11.0) fL Gran % (36.0-66.0) % Immature Gran % (Auto) (0.00-0.4) % Nucleat RBC Rel Count (0.00-0.1) % Eos # (Auto) (0-0.5) x10^3/uL Immature Gran # (Auto) (0.00-0.03) x10^3u/L Absolute Lymphs (auto) (1.0-4.6) x10^3/uL Absolute Monos (auto) (0.0-1.3) x10^3/uL Absolute Nucleated RBC (0.00-0.01) x10^3u/L Lymphocytes % (24.0-44.0) % Monocytes % (0.0-12.0) % Eosinophils % (0.00-5.0) % Basophils % (0.0-0.4) % Absolute Granulocytes (1.4-6.9) x10^3/uL Basophils # (0-0.4) x10^3/uL D-Dimer (0.0-0.50) mg/L Sodium (137-145) mmol/L Potassium (3.5-5.1) mmol/L Chloride (98-107) mmol/L Carbon Dioxide (22-30) mmol/L Anion Gap (5-15) MEQ/L BUN (7-17) mg/dL Creatinine (0.52-1.04) mg/dL Estimated GFR ML/MIN Glucose (74-106) mg/dL POC Glucometer (74 to 106) mg/dL Lactic Acid 1.5 (0.4-2.0) Calcium (8.4-10.2) mg/dL Magnesium (1.6-2.3) mg/dL Total Bilirubin (0.2-1.3) mg/dL AST (14-36) U/L ALT (0-35) U/L Alkaline Phosphatase (38-126) U/L Troponin I (0.000-0.034) ng/mL NT-Pro-B Natriuret Pep (0-900) pg/mL Serum Total Protein (6.3-8.2) g/dL Albumin (3.5-5.0) g/dL Amylase (30-110) U/L Lipase (23-300) U/L TSH 3rd Generation (0.47-4.68) mIU/L Urine Color Yellow (Yellow) Urine Appearance Turbid A (Clear) Urine pH 7.5 (4.6-8.0) Ur Specific Froid 1.020 (1.005-1.030) Urine Protein Trace A (Negative) Urine Glucose (UA) >=1000 A (Negative) mg/dL Urine Ketones Negative (Negative) Urine Blood NHT (Negative) Urine Nitrite Positive A (Negative) Urine Bilirubin Negative (Negative) Urine Urobilinogen 0.2 (0.2) mg/dL Ur Leukocyte Esterase Moderate A (Negative) U Hyaline Cast (Auto) NONE SEEN (0-2) /LPF Urine Microscopic RBC 21-50 A (0-5) /HPF Urine Microscopic WBC 51-100 A (0-5) /HPF Ur Epithelial Cells Rare (None Seen) /HPF Urine Bacteria Many A (None Seen) /HPF Urine Culture Reflexed YES (NO) Influenza Type A Ag (NEGATIVE) Influenza Type B Ag (NEGATIVE) RSV (PCR) (Negative) SARS-CoV-2 (PCR) (NEGATIVE) SARS-CoV-2 Ag (Rapid) NEGATIVE (NEGATIVE) Slides for Path Review 10/26/22 10/26/22 10/26/22 Range/Units 03:09 05:40 05:40 WBC 4.9 (4.0-10.5) x10^3/uL RBC 4.25 (4.1-5.4) x10^6/uL Hgb 9.6 L (12.0-16.0) g/dL Hct 33.6 L (35-47) % MCV 79.1 (78-100) fL MCH 22.6 L (26-32) pg MCHC 28.6 L (32-36) g/dL RDW 19.4 H (11.5-14.0) % Plt Count 153 (150-450) x10^3/uL MPV 11.5 H (7.5-11.0) fL Gran % (36.0-66.0) % Immature Gran % (Auto) (0.00-0.4) % Nucleat RBC Rel Count (0.00-0.1) % Eos # (Auto) (0-0.5) x10^3/uL Immature Gran # (Auto) (0.00-0.03) x10^3u/L Absolute Lymphs (auto) (1.0-4.6) x10^3/uL Absolute Monos (auto) (0.0-1.3) x10^3/uL Absolute Nucleated RBC (0.00-0.01) x10^3u/L Lymphocytes % (24.0-44.0) % Monocytes % (0.0-12.0) % Eosinophils % (0.00-5.0) % Basophils % (0.0-0.4) % Absolute Granulocytes (1.4-6.9) x10^3/uL Basophils # (0-0.4) x10^3/uL D-Dimer (0.0-0.50) mg/L Sodium (137-145) mmol/L Potassium (3.5-5.1) mmol/L Chloride (98-107) mmol/L Carbon Dioxide (22-30) mmol/L Anion Gap (5-15) MEQ/L BUN (7-17) mg/dL Creatinine (0.52-1.04) mg/dL Estimated GFR ML/MIN Glucose (74-106) mg/dL POC Glucometer (74 to 106) mg/dL Lactic Acid (0.4-2.0) Calcium (8.4-10.2) mg/dL Magnesium (1.6-2.3) mg/dL Total Bilirubin (0.2-1.3) mg/dL AST (14-36) U/L ALT (0-35) U/L Alkaline Phosphatase (38-126) U/L Troponin I < 0.012 < 0.012 (0.000-0.034) ng/mL NT-Pro-B Natriuret Pep (0-900) pg/mL Serum Total Protein (6.3-8.2) g/dL Albumin (3.5-5.0) g/dL Amylase (30-110) U/L Lipase (23-300) U/L TSH 3rd Generation (0.47-4.68) mIU/L Urine Color (Yellow) Urine Appearance (Clear) Urine pH (4.6-8.0) Ur Specific Froid (1.005-1.030) Urine Protein (Negative) Urine Glucose (UA) (Negative) mg/dL Urine Ketones (Negative) Urine Blood (Negative) Urine Nitrite (Negative) Urine Bilirubin (Negative) Urine Urobilinogen (0.2) mg/dL Ur Leukocyte Esterase (Negative) U Hyaline Cast (Auto) (0-2) /LPF Urine Microscopic RBC (0-5) /HPF Urine Microscopic WBC (0-5) /HPF Ur Epithelial Cells (None Seen) /HPF Urine Bacteria (None Seen) /HPF Urine Culture Reflexed (NO) Influenza Type A Ag (NEGATIVE) Influenza Type B Ag (NEGATIVE) RSV (PCR) (Negative) SARS-CoV-2 (PCR) (NEGATIVE) SARS-CoV-2 Ag (Rapid) (NEGATIVE) Slides for Path Review YES 10/26/22 10/26/22 10/26/22 Range/Units 05:40 05:40 06:52 WBC (4.0-10.5) x10^3/uL RBC (4.1-5.4) x10^6/uL Hgb (12.0-16.0) g/dL Hct (35-47) % MCV (78-100) fL MCH (26-32) pg MCHC (32-36) g/dL RDW (11.5-14.0) % Plt Count (150-450) x10^3/uL MPV (7.5-11.0) fL Gran % (36.0-66.0) % Immature Gran % (Auto) (0.00-0.4) % Nucleat RBC Rel Count (0.00-0.1) % Eos # (Auto) (0-0.5) x10^3/uL Immature Gran # (Auto) (0.00-0.03) x10^3u/L Absolute Lymphs (auto) (1.0-4.6) x10^3/uL Absolute Monos (auto) (0.0-1.3) x10^3/uL Absolute Nucleated RBC (0.00-0.01) x10^3u/L Lymphocytes % (24.0-44.0) % Monocytes % (0.0-12.0) % Eosinophils % (0.00-5.0) % Basophils % (0.0-0.4) % Absolute Granulocytes (1.4-6.9) x10^3/uL Basophils # (0-0.4) x10^3/uL D-Dimer (0.0-0.50) mg/L Sodium 132 L (137-145) mmol/L Potassium 4.4 (3.5-5.1) mmol/L Chloride 102 (98-107) mmol/L Carbon Dioxide 24 (22-30) mmol/L Anion Gap 10.9 (5-15) MEQ/L BUN 15 (7-17) mg/dL Creatinine 0.55 (0.52-1.04) mg/dL Estimated GFR > 60.0 ML/MIN Glucose 426 H (74-106) mg/dL POC Glucometer 367 H (74 to 106) mg/dL Lactic Acid (0.4-2.0) Calcium 8.4 (8.4-10.2) mg/dL Magnesium 2.2 (1.6-2.3) mg/dL Total Bilirubin 0.60 (0.2-1.3) mg/dL AST 52 H (14-36) U/L ALT 41 H (0-35) U/L Alkaline Phosphatase 386 H (38-126) U/L Troponin I (0.000-0.034) ng/mL NT-Pro-B Natriuret Pep (0-900) pg/mL Serum Total Protein 7.3 (6.3-8.2) g/dL Albumin 3.6 (3.5-5.0) g/dL Amylase (30-110) U/L Lipase (23-300) U/L TSH 3rd Generation 0.709 (0.47-4.68) mIU/L Urine Color (Yellow) Urine Appearance (Clear) Urine pH (4.6-8.0) Ur Specific Froid (1.005-1.030) Urine Protein (Negative) Urine Glucose (UA) (Negative) mg/dL Urine Ketones (Negative) Urine Blood (Negative) Urine Nitrite (Negative) Urine Bilirubin (Negative) Urine Urobilinogen (0.2) mg/dL Ur Leukocyte Esterase (Negative) U Hyaline Cast (Auto) (0-2) /LPF Urine Microscopic RBC (0-5) /HPF Urine Microscopic WBC (0-5) /HPF Ur Epithelial Cells (None Seen) /HPF Urine Bacteria (None Seen) /HPF Urine Culture Reflexed (NO) Influenza Type A Ag (NEGATIVE) Influenza Type B Ag (NEGATIVE) RSV (PCR) (Negative) SARS-CoV-2 (PCR) (NEGATIVE) SARS-CoV-2 Ag (Rapid) (NEGATIVE) Slides for Path Review 10/26/22 10/26/22 Range/Units 11:16 16:25 WBC (4.0-10.5) x10^3/uL RBC (4.1-5.4) x10^6/uL Hgb (12.0-16.0) g/dL Hct (35-47) % MCV (78-100) fL MCH (26-32) pg MCHC (32-36) g/dL RDW (11.5-14.0) % Plt Count (150-450) x10^3/uL MPV (7.5-11.0) fL Gran % (36.0-66.0) % Immature Gran % (Auto) (0.00-0.4) % Nucleat RBC Rel Count (0.00-0.1) % Eos # (Auto) (0-0.5) x10^3/uL Immature Gran # (Auto) (0.00-0.03) x10^3u/L Absolute Lymphs (auto) (1.0-4.6) x10^3/uL Absolute Monos (auto) (0.0-1.3) x10^3/uL Absolute Nucleated RBC (0.00-0.01) x10^3u/L Lymphocytes % (24.0-44.0) % Monocytes % (0.0-12.0) % Eosinophils % (0.00-5.0) % Basophils % (0.0-0.4) % Absolute Granulocytes (1.4-6.9) x10^3/uL Basophils # (0-0.4) x10^3/uL D-Dimer (0.0-0.50) mg/L Sodium (137-145) mmol/L Potassium (3.5-5.1) mmol/L Chloride (98-107) mmol/L Carbon Dioxide (22-30) mmol/L Anion Gap (5-15) MEQ/L BUN (7-17) mg/dL Creatinine (0.52-1.04) mg/dL Estimated GFR ML/MIN Glucose (74-106) mg/dL POC Glucometer 439 H 462 H (74 to 106) mg/dL Lactic Acid (0.4-2.0) Calcium (8.4-10.2) mg/dL Magnesium (1.6-2.3) mg/dL Total Bilirubin (0.2-1.3) mg/dL AST (14-36) U/L ALT (0-35) U/L Alkaline Phosphatase (38-126) U/L Troponin I (0.000-0.034) ng/mL NT-Pro-B Natriuret Pep (0-900) pg/mL Serum Total Protein (6.3-8.2) g/dL Albumin (3.5-5.0) g/dL Amylase (30-110) U/L Lipase (23-300) U/L TSH 3rd Generation (0.47-4.68) mIU/L Urine Color (Yellow) Urine Appearance (Clear) Urine pH (4.6-8.0) Ur Specific Froid (1.005-1.030) Urine Protein (Negative) Urine Glucose (UA) (Negative) mg/dL Urine Ketones (Negative) Urine Blood (Negative) Urine Nitrite (Negative) Urine Bilirubin (Negative) Urine Urobilinogen (0.2) mg/dL Ur Leukocyte Esterase (Negative) U Hyaline Cast (Auto) (0-2) /LPF Urine Microscopic RBC (0-5) /HPF Urine Microscopic WBC (0-5) /HPF Ur Epithelial Cells (None Seen) /HPF Urine Bacteria (None Seen) /HPF Urine Culture Reflexed (NO) Influenza Type A Ag (NEGATIVE) Influenza Type B Ag (NEGATIVE) RSV (PCR) (Negative) SARS-CoV-2 (PCR) (NEGATIVE) SARS-CoV-2 Ag (Rapid) (NEGATIVE) Slides for Path Review Accuchecks Date 10/26/22 Date 10/26/22 Date 10/26/22 Time 16:31 Time 11:29 Time 07:08 - Radiology Impressions Radiology Exams & Impressions: Radiology Procedures Category Date Time Status CHEST 1 VIEW (PORTABLE) Stat Exams 10/25/22 23:05 Completed PULMONARY PERF VENTILATION [NUCMED] Stat Exams 10/26/22 03:51 Completed VENOUS BILATERAL EXTREMITY [US] Stat Exams 10/26/22 00:21 Completed - Other Procedures and Tests Respiratory Therapy 10/25/22 23:55 Respiratory Therapy Assessment DAILY Assessment/Plan (1) COPD exacerbation Current Visit: Yes Status: Acute Code(s): J44.1 - CHRONIC OBSTRUCTIVE PULMONARY DISEASE W (ACUTE) EXACERBATION (2) CHF (congestive heart failure) Current Visit: Yes Status: Chronic Assessment & Plan: mild elevation BNP Code(s): I50.9 - HEART FAILURE, UNSPECIFIED (3) Diabetes mellitus type II, uncontrolled Current Visit: Yes Status: Chronic Qualifiers: Glycemic state: with hyperglycemia Code(s): TPY9709 - (4) Anemia Current Visit: No Status: Chronic Qualifiers: Anemia type: unspecified type Qualified Code(s): D64.9 - Anemia, unspecified Assessment & Plan: chronic since Eliquis ,will follow Code(s): D64.9 - ANEMIA, UNSPECIFIED (5) Hx of femoral artery thrombosis Current Visit: Yes Status: Resolved Assessment & Plan: MAY 2022,Dr Santana treated Code(s): Z86.718 - PERSONAL HISTORY OF OTHER VENOUS THROMBOSIS AND EMBOLISM
[2022-10-26] MEDS: NORCO 7.5/325 MG TAB PO PRN (21:19)
[2022-10-26] MEDS: Ativan 0.5 MG PO PRN (21:19)
[2022-10-26] MEDS ORDERED: AZATHIOPRINE 50 MG PO SCH (22:00)
[2022-10-26] MEDS ORDERED: NON-FORMULARY ITEM (Omeprazole 20 Mg [Prilosec 20 Mg] 20 MG Capsule.Dr) PO SCH (22:00)
[2022-10-26] MEDS ORDERED: MESALAMINE 500 MG PO SCH (22:00)
[2022-10-26] MEDS ORDERED: SACCHAROMYCES BOULARDII 250 MG PO SCH (22:00)
[2022-10-26] MEDS ORDERED: Lantus Insulin SQ SCH (22:00)
[2022-10-27] MEDS: HUMALOG SQ PRN ×5 (00:31→21:55)
[2022-10-27] MEDS: solu-MEDROL 60 MG, Sterile H2O 10 ml 2 ML IV SCH ×4 (05:35→11:17)
[2022-10-27] MEDS: PIPERACILLIN/TAZOBACTAM 3.375 GM in Sodium Chloride 100ML MINI-BAG PLUS 100 ML IV SCH ×3 (05:35→17:48)
[2022-10-27] MEDS: Advair Hfa 115/21 Common canister IH SCH ×2 (07:15→18:48)
[2022-10-27] MEDS: VENTOLIN COMMON CANISTER IH PRN ×2 (07:16→18:48)
[2022-10-27] MEDS: Ranexa 500 MG PO SCH ×2 (08:06→21:58)
[2022-10-27] MEDS: ELIQUIS 2.5 MG TABLET PO SCH (08:06)
[2022-10-27] MEDS: Cymbalta 30 MG Capsule PO SCH (08:06)
[2022-10-27] MEDS: Acidophilus TABLET PO SCH ×2 (08:06→21:58)
[2022-10-27] MEDS: MAG-OX 400 PO SCH (08:06)
[2022-10-27] MEDS: SYNTHROID 25 MCG PO SCH (08:07)
[2022-10-27] MEDS: Protonix 40MG Tablet PO SCH (08:07)
[2022-10-27] MEDS: Cardizem CD PO SCH (08:07)
[2022-10-27] MEDS: Zestril 5 MG PO SCH (08:07)
[2022-10-27] MEDS: Coreg PO SCH ×2 (08:07→21:58)
[2022-10-27] MEDS: MYSOLINE 50MG PO SCH ×3 (08:07→21:58)
[2022-10-27] MEDS: Klor Con PO SCH (08:07)
[2022-10-27] MEDS: Imdur 60MG PO SCH (08:07)
[2022-10-27] MEDS: Glucophage 500 MG PO SCH (08:07)
[2022-10-27] MEDS: Abilify 10 MG PO SCH (08:08)
[2022-10-27] MEDS: Zocor 10MG PO SCH (08:08)
[2022-10-27] MEDS: Lasix 40 MG PO SCH (08:08)
[2022-10-27] MEDS: NON-FORMULARY ITEM PO SCH ×2 (08:10→21:59)
[2022-10-27] MEDS ORDERED: NON-FORMULARY ITEM (Duloxetine Hcl [Duloxetine Hcl] 60 MG Capsule.Dr) PO SCH (10:00)
[2022-10-27] MEDS ORDERED: NON-FORMULARY ITEM (Atorvastatin Calcium [Atorvastatin Calcium] 10 MG Tablet) PO SCH (10:00)
[2022-10-27] MEDS ORDERED: NON-FORMULARY ITEM (Aripiprazole [Abilify] 2 MG Tablet) PO SCH (10:00)
[2022-10-27] MEDS: Ativan 0.5 MG PO PRN (11:46)
[2022-10-27] MEDS: NORCO 7.5/325 MG TAB PO PRN ×2 (11:46→23:52)
--- NOTE | 2022-10-27 13:56 | PCM.NOTE ---
Date and Time: 10/27/22 1351 Subjective Assessment: Sugar up to 597 on moderate dos SS plus Glargine 42 units on 1999 richa carb control-will adjust. UTI gram neg bacteria growing. BNP elevated on admit-retest but breathing easier still requiring continuous O2. Objective Exam General Appearance: no apparent distress Neurologic Exam: alert, oriented x 3, cooperative, normal mood/affect Skin Exam: normal color, warm, dry Respiratory Exam: other (improved aeration still diminishes no eew) Gastrointestinal/Abdomen Exam: soft (nontender) Extremity Exam: pedal edema OBJECTIVE DATA Vital Signs: Vital Signs - 24 hr Temp Pulse Resp BP Pulse Ox 10/27/22 11:11 97.7 F 90 18 161/85 99 10/27/22 07:37 87 16 96 10/27/22 07:00 96.8 F 86 19 167/77 95 10/27/22 03:00 96.2 F 100 H 29 H 184/86 94 L 10/26/22 23:00 96.8 F 94 H 24 117/80 95 10/26/22 19:27 98.0 F 105 H 16 127/73 92 L 10/26/22 18:29 103 H 16 95 10/26/22 17:47 97.7 F 105 H 16 188/90 98 10/26/22 14:40 105 H 16 188/90 98 Pain Assessment - Last Documented Pain Intensity 7 Pain Scale Used 0-10 Pain Scale Intake and Output: Intake & Output 10/25/22 10/26/22 10/27/22 10/28/22 11:59 11:59 11:59 11:59 Intake Total 240 2865 360 Output Total 3350 500 Balance 240 -485 -140 Weight 133.7 kg 133.8 kg Lab Results: Lab Results-Last 24 Hours 10/26/22 10/26/22 10/26/22 Range/Units 16:25 22:20 22:25 Glucose (74-106) mg/dL POC Glucometer 462 H 501 H* 556 H* (74 to 106) mg/dL 10/26/22 10/27/22 10/27/22 Range/Units 22:50 00:20 01:21 Glucose 597 H* (74-106) mg/dL POC Glucometer 484 H 467 H (74 to 106) mg/dL 10/27/22 10/27/22 Range/Units 06:41 11:27 Glucose (74-106) mg/dL POC Glucometer 344 H 492 H (74 to 106) mg/dL Radiology Exams: Radiology Procedures Category Date Time Status CHEST 1 VIEW (PORTABLE) Stat Exams 10/25/22 23:05 Completed PULMONARY PERF VENTILATION [NUCMED] Stat Exams 10/26/22 03:51 Completed VENOUS BILATERAL EXTREMITY [US] Stat Exams 10/26/22 00:21 Completed Multi-Disciplinary Progress Notes: Multi-Disciplinary Progress Notes 10/27/22 10:57 Case Management Note by Lyric Hauser S/W PATIENT- SHE CONTINUES TO DENY ANY NEW NEEDS. SHE PLANS TO RETURN HOME WITH HER SON AND C. ACO AWARE OF REPEATED STAYS AND WILL SEE WHAT THEY CAN DO TO ASSIST PATIENT IN MEDICAID PROCESS FOR ASSISTED LIVING PLACEMENT Initialized on 10/27/22 10:57 - END OF NOTE 10/26/22 14:39 Pharmacy Note by Gustabo Ceja 1-16: PLEASE BE AWARE OF POSSIBLE DRUG INTERACTIONS WITH PATIENT'S HOME MEDS: CATEGORY X: PRIMIDONE MAY DECREASE THE CONCENTRATION OF RANEXA CATEGORY D: PRIMIDONE MAY DECREASE THE CONCENTRATION OF ABILIFY PRIMIDONE MAY DECREASE THE CONCENTRATION OF ELIQUIS CATEGORY C: CYMBALTA MAY INCREASE THE CONCENTRATION OF ABILIFY. CYMBALTA MAY INCREASE THE BLEEDING RISK OF ELIQUIS. PHARMACY DEPT. Initialized on 10/26/22 14:39 - END OF NOTE Assessment/Plan (1) COPD exacerbation Current Visit: Yes Status: Acute Assessment & Plan: improved Code(s): J44.1 - CHRONIC OBSTRUCTIVE PULMONARY DISEASE W (ACUTE) EXACERBATION (2) Hyperglycemia Current Visit: No Status: Acute Assessment & Plan: insulin and diet adjusted Code(s): R73.9 - HYPERGLYCEMIA, UNSPECIFIED (3) Hypoxia Current Visit: No Status: Acute Assessment & Plan: will req home O2 Code(s): R09.02 - HYPOXEMIA (4) UTI (urinary tract infection) Current Visit: No Status: Acute Assessment & Plan: is on Pip/Rafael awaiting final urine cult Code(s): N39.0 - URINARY TRACT INFECTION, SITE NOT SPECIFIED
[2022-10-27] MEDS ORDERED: Lantus Insulin SQ SCH (14:07)
[2022-10-27 14:59] LABS: Absolute Neutrophil Ct (ANC) 8.61 x10^3/uL (1.4-6.9); Basophil (Absolute #) 0.01 x10^3/uL (0-0.4); Eosinophil (Absolute #) 0 x10^3/uL (0-0.5); Hematocrit 28.7 % (35-47); Hemoglobin 8.1 g/dL (12.0-16.0); Lymphocyte (Absolute #) 0.24 x10^3/uL (1.0-4.6); Lymphocytes % 2.6 % (24.0-44.0); Mean Cell Volume 78.8 fL (78-100); Mean Corpuscular Hemoglobin 22.3 pg (26-32); Mean Corpuscular Hgb Concent. 28.2 g/dL (32-36); Monocyte (Absolute #) 0.24 x10^3/uL (0.0-1.3); Monocytes % 2.6 % (0.0-12.0); Neutrophil % 94.4 % (36.0-66.0); Platelet Count 218 x10^3/uL (150-450); Red Blood Count 3.64 x10^6/uL (4.1-5.4); Red Cell Distribution Width 18.6 % (11.5-14.0); White Blood Count 9.1 x10^3/uL (4.0-10.5)
[2022-10-27 15:21] LABS: ANION GAP 12.5 MEQ/L (5-15); BLOOD UREA NITROGEN 26 mg/dL (7-17); CHLORIDE 97 mmol/L (98-107); Calcium 8.4 mg/dL (8.4-10.2); Carbon Dioxide 26 mmol/L (22-30); EST GLOMERULAR FILTRATION RATE > 60.0 ML/MIN; SODIUM 130 mmol/L (137-145)
[2022-10-27] MEDS ORDERED: PROTONIX 40 MG IV IV SCH (19:00)
[2022-10-27 19:32] LABS: Slide Review 1 YES
[2022-10-27] MEDS ORDERED: solu-MEDROL 40 MG, Sterile H2O 10 ml 1 ML IV SCH ×2 (22:00)
[2022-10-27] MEDS: Sodium Chloride 0.9% 1000 ML 1,000 ML IV SCH (23:52)
[2022-10-28] MEDS: Ativan 0.5 MG PO PRN (00:02)
[2022-10-28] MEDS: PIPERACILLIN/TAZOBACTAM 3.375 GM in Sodium Chloride 100ML MINI-BAG PLUS 100 ML IV SCH ×2 (00:33→05:50)
[2022-10-28] MEDS: Advair Hfa 115/21 Common canister IH SCH (07:08)
[2022-10-28] MEDS: VENTOLIN COMMON CANISTER IH PRN (07:09)
[2022-10-28 07:34] VITALS: BP 143/74; PULSE 106; O2SAT 97
[2022-10-28 08:18] LABS: Hematocrit 31.2 % (35-47); Hemoglobin 8.6 g/dL (12.0-16.0); Mean Cell Volume 79.4 fL (78-100); Mean Corpuscular Hemoglobin 21.9 pg (26-32); Mean Corpuscular Hgb Concent. 27.6 g/dL (32-36); Mean Platelet Volume 11.6 fL (7.5-11.0); Platelet Count 212 x10^3/uL (150-450); Red Blood Count 3.93 x10^6/uL (4.1-5.4); Red Cell Distribution Width 18.7 % (11.5-14.0); White Blood Count 9.1 x10^3/uL (4.0-10.5)
[2022-10-28] MEDS: Glucophage 500 MG PO SCH (08:46)
[2022-10-28] MEDS: SYNTHROID 25 MCG PO SCH (08:47)
[2022-10-28] MEDS: Zocor 10MG PO SCH (08:47)
[2022-10-28] MEDS: Abilify 10 MG PO SCH (08:48)
[2022-10-28] MEDS: Cymbalta 30 MG Capsule PO SCH (08:48)
[2022-10-28] MEDS: MAG-OX 400 PO SCH (08:49)
[2022-10-28] MEDS: Ranexa 500 MG PO SCH (08:50)
[2022-10-28] MEDS: Acidophilus TABLET PO SCH (08:50)
[2022-10-28] MEDS: Cardizem CD PO SCH (08:51)
[2022-10-28] MEDS: Imdur 60MG PO SCH (08:51)
[2022-10-28] MEDS: Zestril 5 MG PO SCH (08:51)
[2022-10-28] MEDS: Klor Con PO SCH (08:52)
[2022-10-28] MEDS: Coreg PO SCH (08:52)
[2022-10-28] MEDS: Lasix 40 MG PO SCH (08:53)
[2022-10-28] MEDS: MYSOLINE 50MG PO SCH (08:53)
[2022-10-28] MEDS: NON-FORMULARY ITEM PO SCH (08:54)
[2022-10-28 09:25] LABS: Slide Review YES
[2022-10-28] MEDS ORDERED: solu-MEDROL 40 MG, Sterile H2O 10 ml 1 ML IV SCH ×2 (10:00)
--- NOTE | 2022-10-28 10:00 | CONS ---
CONSULT DATE: 10/27/2022 HISTORY: A 62-year-old female with chronic obstructive pulmonary disease, uncontrolled diabetes, has history of some clots in her leg and pulmonary embolism in the past. She has been on Eliquis in the past. She had anemia. I was asked to see for possible endoscopy this admission given her anemia. PAST MEDICAL HISTORY: Chronic obstructive pulmonary disease, sleep apnea, coronary artery disease, cataracts, migraines, hypothyroidism, hypertension, diabetes type II, arthritis, osteoarthritis, fibromyalgia, degenerative disc disease. History of myocardial infarction in the past. Reported history of some inflammatory bowel disease or Crohn's. She had some reflux and irritable bowel in the past. Anxiety and depression. PAST SURGICAL HISTORY: Cardiac catheterization but no stents. She said Dr. Holguin did her scope years ago. D&C, section, tubal, kidney stone removal. Right second toe amputation. She had clot removed in the past. She had endoscopy in the past. HOME MEDICATIONS: She has been on duloxetine, Pentasa, Prilosec, atorvastatin, Antivert, Imdur and Synthroid for some hypothyroidism. She has been on Abilify, fluticasone-Salmeterol spray, loperamide, Mag-Ox, Nitrostat PRN, Pravastatin, Primidone, Ranexa, Florastor, azathioprine, Zestril, Eliquis, Coreg, Cardizem, Tylenol, Proventil HFA, Lasix, hydrocodone, Proctocort, NovoLog insulin, Insulin Glargine, Ativan, Milk of Magnesia, Glucophage, Deltasone, potassium chloride. ALLERGIES: CYCLOBENZAPRINE. SULFA. REGLAN. NUBAIN. CIPRO. DEMEROL. FAMILY HISTORY: Negative for colon cancer according to the patient. SOCIAL HISTORY: Former smoker. LAB DATA AND TESTS: She said her hemoglobin was down to 7 range and was up to 9.2. Platelet count 201,000. Troponin was negative. REVIEW OF SYSTEMS: Fourteen systems reviewed pertinent for as noted above. She is a former smoker. No chest pain or palpitations currently. Pertinent for the chronic medical illnesses as noted above. PHYSICAL EXAMINATION: GENERAL: No acute distress. HEENT: Sclera nonicteric. NECK: No JVD. CHEST: Equal excursion, nonlabored breathing. CVS: Regular rate and rhythm. ABDOMEN: Soft, nontender. She is a little bit overweight. EXTREMITIES: No significant edema. NEURO: Alert. PSYCH: Appropriate mood and affect. RECTAL: Deferred timed to endoscopy exam. IMPRESSION: Anemia unclear etiology. She had her Eliquis held. She is not a candidate for any procedure tomorrow but possibly by if she continues holding her Eliquis. Will put her on clear liquids tomorrow and see if Dr. Kahn has time to do an upper and lower scope on when he is down this way. General risk of bleeding or infection, risk of bowel injury or perforation but not limited to, risk of missed or nondiagnosis or incomplete exam. I feel she would benefit from EGD and colonoscopy possibly on . She agrees to the plan.
== END 2022-10-28 11:30 | disposition home health service (06) ==
LOC: ED 22:41 → MED SURG 10-26 03:34
PROVIDERS: ADMIT Family Medicine; ATTEND Family Medicine
DX: J44.1 Chronic obstructive pulmonary disease with (acute) exacerbation (principal); E11.65 Type 2 diabetes mellitus with hyperglycemia; R79.89 Other specified abnormal findings of blood chemistry; I11.0 Hypertensive heart disease with heart failure; I50.9 Heart failure, unspecified; I25.10 Atherosclerotic heart disease of native coronary artery without angina pectoris; E78.5 Hyperlipidemia, unspecified; D64.9 Anemia, unspecified; R09.02 Hypoxemia; N39.0 Urinary tract infection, site not specified; Z86.16 Personal history of COVID-19; Z79.899 Other long term (current) drug therapy; Z86.718 Personal history of other venous thrombosis and embolism; Z20.828 Contact with and (suspected) exposure to other viral communicable diseases; Z79.01 Long term (current) use of anticoagulants
CPT/HCPCS: 0241U; 36000; 36415; 71045; 78582; 80048; 80053; 81001; 82150; 82274; 82947; 83036; 83605; 83690; 83735; 83880; 84443; 84484; 85025; 85027; 85379; 87077; 87086; 87186; 87811; 93005; 93041; 93268; 93970; 94640; 94760; 94762; 96374; 96375; 99285; A9540; A9567; J1815; J1817; J2405; J2920; J2930; J3475; A9270-GY; G0328; G0378

== ENCOUNTER 2022-11-04 12:00 | Observation (INO) | payer MEDICARE ==
[2022-11-04] MEDS ORDERED: BABY ASPIRIN 81 MG CHEW PO ONE (12:05)
[2022-11-04] MEDS ORDERED: BABY ASPIRIN 81 MG CHEW ONE (12:22)
[2022-11-04] MEDS: CARDIZEM DRIP 100 MG/100 ML D5W 100 ML IV PRN ×2 (12:25→18:54)
[2022-11-04 12:37] LABS: Absolute Neutrophil Ct (ANC) 6.63 x10^3/uL (1.4-6.9); BASOPHIL % 0.2 % (0.0-0.4); Basophil (Absolute #) 0.02 x10^3/uL (0-0.4); Eosinophil % 2.5 % (0.00-5.0); Eosinophil (Absolute #) 0.21 x10^3/uL (0-0.5); Hematocrit 33.6 % (35-47); Hemoglobin 9.5 g/dL (12.0-16.0); IMMATURE GRAN # 0.03 x10^3u/L (0.00-0.03); IMMATURE GRAN % 0.4 % (0.00-0.4); Lymphocyte (Absolute #) 0.92 x10^3/uL (1.0-4.6); Lymphocytes % 10.8 % (24.0-44.0); Mean Cell Volume 77.8 fL (78-100); Mean Corpuscular Hgb Concent. 28.3 g/dL (32-36); Mean Platelet Volume 12.2 fL (7.5-11.0); Monocyte (Absolute #) 0.74 x10^3/uL (0.0-1.3); Monocytes % 8.7 % (0.0-12.0); Neutrophil % 77.4 % (36.0-66.0); Platelet Count 222 x10^3/uL (150-450); Red Blood Count 4.32 x10^6/uL (4.1-5.4); Red Cell Distribution Width 19.8 % (11.5-14.0); White Blood Count 8.6 x10^3/uL (4.0-10.5)
[2022-11-04 12:43] LABS: D-DIMER QUANTITATIVE 0.57 mg/L (0.0-0.50); INR 1.03 (0.8-3.0); PROTIME 10.9 SECONDS (9.4-12.5)
[2022-11-04 12:45] LABS: ISTAT CREA 0.6 mg/dL (0.6-1.3); ISTAT K 4.4 mmol/L (3.5-4.9); ISTAT iCA 1.21 mmol/L (1.12-1.32)
--- NOTE | 2022-11-04 12:52 | XRAY ---
Indication: Short of breath. Comparison: October 25, 2022. Portable chest remains unchanged again with minimal bibasilar subsegmental atelectasis/scarring, right hemidiaphragm elevation, and borderline cardiomegaly. No new cardiopulmonary abnormalities.
[2022-11-04 13:15] LABS: ISTAT cTNI 0.05 ng/mL (0.00-0.03)
[2022-11-04] MEDS ORDERED: MORPHINE SULFATE 4 MG INJ IV ONE (14:04)
[2022-11-04 14:15] LABS: Slide Review 1 YES
[2022-11-04] MEDS ORDERED: Zofran 4 MG/2 ML VIAL IV ONE (14:31)
[2022-11-04] MEDS ORDERED: Zofran 4 MG/2 ML VIAL ONE (14:33)
[2022-11-04] MEDS ORDERED: MORPHINE SULFATE 4 MG INJ ONE (14:34)
[2022-11-04] MEDS ORDERED: Zofran 4 MG/2 ML VIAL IV PRN (15:06)
[2022-11-04 15:13] LABS: Direct Bilirubin 0.3 mg/dL (0.0-0.4)
--- NOTE | 2022-11-04 15:43 | ERPHSYRPT ---
- History of Present Illness Time Seen by Provider: 11/04/22 12:03 Source: patient Exam Limitations: no limitations Patient Subjective Stated Complaint: PT states "I was here two weeks ago for the same thing and I am short of breath and I am just tired." Triage Nursing Assessment: Pt presented alert and oriented X3, skin pwd. Pt speaks in two to three word sentences. pt tachypneic. pt grunting. Pt legs bialt lower extremity edema noted. Physician History: Patient here with acute on chronic shortness of breath. Patient arrives in A. fib with RVR. She is short of breath. She is on 4 L. This is her basic. Patient is on Eliquis. Patient denies missing any doses of Eliquis. Patient has no falls or trauma. No fever or chills. Timing/Duration: today Severity: moderate Allergies/Adverse Reactions: cyclobenzaprine HCl [From Flexeril] Allergy (Mild, Verified 10/26/22 02:40) Rash metoclopramide [From Reglan] Allergy (Mild, Verified 10/26/22 02:40) Rash Sulfa (Sulfonamide Antibiotics) [Sulfa(Sulfonamide Antibiotics)] Allergy (Mild, Verified 10/26/22 02:40) Rash adhesive Allergy (Verified 10/26/22 02:40) Rash nalbuphine HCl [From Nubain] Adverse Reaction (Intermediate, Verified 10/26/22 02:40) Stomach Cramps patient states she had stomach "burning" and that her legs felt like "rubber bands" ciprofloxacin [From Cipro] Adverse Reaction (Mild, Verified 10/26/22 02:40) Rash meperidine HCl [From Demerol] Adverse Reaction (Mild, Verified 10/26/22 02:40) Vomiting Home Medications: Duloxetine HCl 60 mg PO DAILY 03/17/16 [History] Mesalamine [Pentasa] 500 mg PO BID 03/17/16 [History] Omeprazole 20 MG [Prilosec 20 mg] 20 mg PO BID 03/17/16 [History] Atorvastatin Calcium 10 mg PO DAILY 01/25/18 [History] Meclizine HCl 25 mg [Antivert 25 mg] 25 mg PO Q8H PRN PRN 12/05/19 [History] Isosorbide Mononitrate 60 mg [Imdur 60MG] 60 mg PO DAILY 12/31/20 [History] Levothyroxine Sodium 25 Mcg [Synthroid 25 Mcg] 25 mcg PO DAILY 12/31/20 [History] Aripiprazole [Abilify] 2 mg PO DAILY 06/03/22 [History] Fluticasone Propion/Salmeterol [Fluticasone-Salmeterol 250-50] 1 each IH BIDRT 06/03/22 [History] Loperamide HCl [Loperamide] 4 mg PO Q12H PRN PRN 06/03/22 [History] Magnesium Oxide 400 mg [Mag-Ox 400] 800 mg PO DAILY 06/03/22 [History] Nitroglycerin 0.4 mg Tablet [Nitrostat 0.4 MG Tablet] 0.4 mg SL Q5MIN PRN MR X 3 PRN 06/03/22 [History] Pravastatin Sodium 80 mg PO DAILY 06/03/22 [History] Primidone 50 MG [Mysoline 50Mg] 50 mg PO TID 06/03/22 [History] Ranolazine 500 MG [Ranexa 500 MG] 500 mg PO BID 06/03/22 [History] Saccharomyces Boulardii [Florastor] 250 mg PO BID 06/03/22 [History] azaTHIOprine [Azathioprine] 50 mg PO BID 06/03/22 [History] lisinopriL [Zestril] 2.5 mg PO DAILY 06/03/22 [History] Apixaban [Eliquis 5 mg Tablet] 5 mg PO BID 08/16/22 [History] Acetaminophen 325 mg [Tylenol 325 mg] 2 tab PO Q4HPRN PRN 10/06/22 [Histo ry] Albuterol Sulfate [Proventil Hfa] 2 puff IH Q6HPRN PRN 10/06/22 [History] Furosemide 40 mg [Lasix 40 MG] 40 mg PO DAILY 10/06/22 [History] Hydrocodone/Acetaminophen [Hydrocodone-Acetamin 7.5-325] 1 tab PO BID PRN 10/06/22 [History] Hydrocortisone [Proctocort] 28.35 gm RC Q12H PRN PRN 10/06/22 [History] Insulin Aspart [NovoLOG Insulin] See Rx Instructions .ROUTE .COMPLEX 10/06/22 [History] Insulin Glargine,Hum.rec.anlog [Insulin Glargine] 42 units SQ HS 10/06/22 [History] Lorazepam 0.5 mg [Ativan 0.5 MG] 0.5 mg PO [id number] PRN 10/06/22 [History] Magnesium Hydroxide 30 ml [Milk of Magnesia 30 ml] 30 ml PO DAILY PRN 10/06/22 [History] Metformin HCl 500 mg [Glucophage 500 MG] 500 mg PO DAILY 10/06/22 [History] Potassium Chloride 10 meq PO DAILY 10/06/22 [History] Hx Tetanus, Diphtheria Vaccination/Date Given: No (unknown) Hx Influenza Vaccination/Date Given: No Hx Pneumococcal Vaccination/Date Given: No Immunizations Up to Date: Yes Travel Risk - International Travel Have you traveled outside of the country in past 3 weeks: No - Coronavirus Screening Are you exhibiting any of the following symptoms?: No Close contact with a COVID-19 positive Pt in past 14-21 Days: No - Vaccine Status Have you recieved a Covid-19 vaccination: No - Review of Systems Constitutional: No Fever, No Chills Eyes: No Symptoms Ears, Nose, & Throat: No Symptoms Respiratory: No Cough, No Dyspnea Cardiac: Palpitations, Other (A. fib with RVR), No Chest Pain, No Edema, No Syncope Abdominal/Gastrointestinal: No Abdominal Pain, No Nausea, No Vomiting, No Diarrhea Genitourinary Symptoms: No Dysuria Musculoskeletal: No Back Pain, No Neck Pain Skin: No Rash Neurological: No Dizziness, No Focal Weakness, No Sensory Changes Psychological: No Symptoms Endocrine: No Symptoms All Other Systems: Reviewed and Negative - Past Medical History Pertinent Past Medical History: Yes Neurological History: Migraines, Peripheral Neuropathy ENT History: Cataracts Cardiac History: Coronary Artery Disease, High Cholesterol, Hypertension, Myocardial Infarction (AR), Other Respiratory History: Asthma, Bronchitis, CHF, COPD, Sleep Apnea Endocrine Medical History: Diabetes Type II Musculoskeletal History: Arthritis, Degenerative Disk Disease, Fibromyalgia, Osteoarthritis GI Medical History: Crohns Disease, Diverticulitis, GERD, Irritable Bowel History: No Pertinent History Psycho-Social History: Anxiety, Depression Female Reproductive Disorders: No Pertinent History Other Medical History: HX UTI, HX Yeast Infection, Neuropathy, degenerative joint disease - Past Surgical History Past Surgical History: Yes Neuro Surgical History: No Pertinent History Cardiac: Cardiac Catheterization Respiratory: No Pertinent History Gastrointestinal: No Pertinent History Genitourinary: No Pertinent History Musculoskeletal: No Pertinent History Female Surgical History: Dilation & Curettage, Section, Tubal Ligation Other Surgical History: KIDNEY STONE REMOVAL, right 2nd toe amputated 2021. heart cath x3, no stents, clot removal rt thigh artery - Social History Smoking Status: Former smoker How long have you smoked: years Exposure to second hand smoke: No Alcohol Use: None Drug Use: none Patient Lives Alone: No Significant Family History: no pertinent family hx, diabetes, hypertension - Nursing Vital Signs Nursing Vital Signs: Initial Vital Signs Temperature 98.7 F 11/04/22 12:02 Pulse Rate 130 H 11/04/22 12:02 Respiratory Rate 24 11/04/22 12:02 Blood Pressure 147/97 11/04/22 12:02 O2 Sat by Pulse Oximetry 100 11/04/22 12:02 Pain Scale Pain Intensity 4 - Physical Exam General Appearance: no apparent distress, alert, other (Appear short of breath) Eye Exam: PERRL/EOMI, eyes nml inspection Ears, Nose, Throat Exam: normal ENT inspection, TMs normal, pharynx normal, moist mucous membranes Neck Exam: normal inspection, non-tender, supple, full range of motion Respiratory Exam: normal breath sounds, lungs clear, No respiratory distress Cardiovascular Exam: normal heart sounds, normal peripheral pulses, irregular, other (A. fib with RVR) Gastrointestinal/Abdomen Exam: soft, normal bowel sounds, No tenderness, No mass Back Exam: normal inspection, normal range of motion, No CVA tenderness, No vertebral tenderness Extremity Exam: normal inspection, normal range of motion, pelvis stable Neurologic Exam: alert, oriented x 3, cooperative, normal mood/affect, nml cerebellar function, nml station & gait, sensation nml, No motor deficits Skin Exam: normal color, warm, dry, No rash Lymphatic Exam: No adenopathy SpO2: 97 - Course Nursing assessment & vital signs reviewed: Yes EKG Interpreted by Me: A-fib Ordered Tests: Active Orders 24 hr Category Date Time Status Call Admit Doctor for Orders ON ADMISSION Care 11/04/22 15:06 Active [employer] Consultant STAT Care 11/04/22 12:06 Active Code Status Order ROUTINE Care 11/04/22 15:06 Active EKG-ER Only STAT Care 11/04/22 12:05 Active IV Care Q6H Care 11/04/22 15:06 Active IV Insertion STAT Care 11/04/22 12:[address] in Observation ROUTINE Care 11/04/22 15:06 Active Heart-Healthy Diet Diet 11/05/22 Breakfast Active CHEST 1 VIEW (PORTABLE) Stat Exams 11/04/22 12:06 Completed CHEST WITH CONTRAST [CT] Stat Exams 11/04/22 13:00 Ordered BMP AM.LAB Lab 11/05/22 04:00 Ordered CBC W DIFF AM.LAB Lab 11/05/22 04:00 Ordered CBC W DIFF Stat Lab 11/04/22 Completed D-DIMER QUANTITATIVE Stat Lab 11/04/22 Completed Direct Bilirubin Stat Lab 11/04/22 Completed NT PRO BNP Stat Lab 11/04/22 Completed PROTIME WITH INR Stat Lab 11/04/22 Completed TROPONIN Q4H Lab 11/04/22 16:15 Ordered TROPONIN Q4H Lab 11/04/22 20:15 Ordered Medication Summary Generic Name Dose Route Start Last Admin Trade Name Freq PRN Reason Stop Dose Admin Diltiazem HCl 100 mls @ 5 mls/hr 11/04/22 12:08 11/04/22 12:25 Cardizem Drip 100 Mg/100 Ml D5w IV 12/04/22 12:07 5 mg/hr .Q20H PRN 5 mls/hr HEART RATE/ A-FIB Administration Protocol 5 MG/HR Insulin Human Lispro 0 unit 11/04/22 15:06 Insulin Lispro 1 Unit SQ 12/04/22 15:05 UD PRN HYPERGLYCEMIA Morphine Sulfate 2 mg 11/04/22 15:06 Morphine Sulfate 2 Mg/Ml Inj IV 11/09/22 15:05 Q4H PRN PRN PAIN Ondansetron HCl 4 mg 11/04/22 15:06 Ondansetron Hcl 4 Mg/2 Ml Vial IV 12/04/22 15:05 Q6H PRN PRN NAUSEA/VOMITING Discontinued Medications Generic Name Dose Route Start Last Admin Trade Name Freq PRN Reason Stop Dose Admin Aspirin 324 mg 11/04/22 12:05 11/04/22 12:24 Aspirin 81 Mg Tab.Chew PO 11/04/22 12:06 324 mg STAT ONE Administration Aspirin Confirm 11/04/22 12:22 Aspirin 81 Mg Tab.Chew Administered 11/04/22 12:23 Dose 324 mg .ROUTE .STK-MED ONE Morphine Sulfate 4 mg 11/04/22 14:04 11/04/22 14:36 Morphine Sulfate 4 Mg/Ml Injection IV 11/04/22 14:05 4 mg STAT ONE Administration Morphine Sulfate Confirm 11/04/22 14:34 Morphine Sulfate 4 Mg/Ml Injection Administered 11/04/22 14:35 Dose 4 mg .ROUTE .STK-MED ONE Ondansetron HCl 4 mg 11/04/22 14:31 11/04/22 14:36 Ondansetron Hcl 4 Mg/2 Ml Vial IV 11/04/22 14:32 4 mg STAT ONE Administration Ondansetron HCl Confirm 11/04/22 14:33 Ondansetron Hcl 4 Mg/2 Ml Vial Administered 11/04/22 14:34 Dose 4 mg .ROUTE .STK-MED ONE Lab/Rad Data: Laboratory Result Diagrams 11/04/22 Unknown 11/04/22 12:15 Laboratory Results 11/04/22 11/04/22 11/04/22 Range/Units Unknown Unknown Unknown WBC 8.6 (4.0-10.5) x10^3/uL RBC 4.32 (4.1-5.4) x10^6/uL Hgb 9.5 L (12.0-16.0) g/dL Hct 33.6 L (35-47) % MCV 77.8 L (78-100) fL MCH 22.0 L (26-32) pg MCHC 28.3 L (32-36) g/dL RDW 19.8 H (11.5-14.0) % Plt Count 222 (150-450) x10^3/uL MPV 12.2 H (7.5-11.0) fL Gran % 77.4 H (36.0-66.0) % Immature Gran % (Auto) 0.4 (0.00-0.4) % Nucleat RBC Rel Count 0.0 (0.00-0.1) % Eos # (Auto) 0.21 (0-0.5) x10^3/uL Immature Gran # (Auto) 0.03 (0.00-0.03) x10^3u/L Absolute Lymphs (auto) 0.92 L (1.0-4.6) x10^3/uL Absolute Monos (auto) 0.74 (0.0-1.3) x10^3/uL Absolute Nucleated RBC 0.00 (0.00-0.01) x10^3u/L Lymphocytes % 10.8 L (24.0-44.0) % Monocytes % 8.7 (0.0-12.0) % Eosinophils % 2.5 (0.00-5.0) % Basophils % 0.2 (0.0-0.4) % Absolute Granulocytes 6.63 (1.4-6.9) x10^3/uL Basophils # 0.02 (0-0.4) x10^3/uL PT 10.9 (9.4-12.5) SECONDS INR 1.03 (0.8-3.0) D-Dimer 0.57 H (0.0-0.50) mg/L Sodium Direct (138-146) mmol/L Potassium (3.5-4.9) mmol/L Chloride (98-109) mmol/L Carbon Dioxide (24-29) mmol/L Venous BUN (8-26) mg/dL Creatinine (0.6-1.3) mg/dL Glucose (70-105) mg/dL Ionized Calcium (1.12-1.32) mmol/L Direct Bilirubin 0.3 (0.0-0.4) mg/dL Troponin (0.00-0.03) ng/mL Troponin I NT-Pro-B Natriuret Pep 713 (0-900) pg/mL Slides for Path Review YES 11/04/22 Range/Units 12:15 WBC (4.0-10.5) x10^3/uL RBC (4.1-5.4) x10^6/uL Hgb (12.0-16.0) g/dL Hct (35-47) % MCV (78-100) fL MCH (26-32) pg MCHC (32-36) g/dL RDW (11.5-14.0) % Plt Count (150-450) x10^3/uL MPV (7.5-11.0) fL Gran % (36.0-66.0) % Immature Gran % (Auto) (0.00-0.4) % Nucleat RBC Rel Count (0.00-0.1) % Eos # (Auto) (0-0.5) x10^3/uL Immature Gran # (Auto) (0.00-0.03) x10^3u/L Absolute Lymphs (auto) (1.0-4.6) x10^3/uL Absolute Monos (auto) (0.0-1.3) x10^3/uL Absolute Nucleated RBC (0.00-0.01) x10^3u/L Lymphocytes % (24.0-44.0) % Monocytes % (0.0-12.0) % Eosinophils % (0.00-5.0) % Basophils % (0.0-0.4) % Absolute Granulocytes (1.4-6.9) x10^3/uL Basophils # (0-0.4) x10^3/uL PT (9.4-12.5) SECONDS INR (0.8-3.0) D-Dimer (0.0-0.50) mg/L Sodium Direct 134 L (138-146) mmol/L Potassium 4.4 (3.5-4.9) mmol/L Chloride 93 L (98-109) mmol/L Carbon Dioxide 30 H (24-29) mmol/L Venous BUN 24 (8-26) mg/dL Creatinine 0.6 (0.6-1.3) mg/dL Glucose 454 H (70-105) mg/dL Ionized Calcium 1.21 (1.12-1.32) mmol/L Direct Bilirubin (0.0-0.4) mg/dL Troponin 0.05 H (0.00-0.03) ng/mL Troponin I Cancelled NT-Pro-B Natriuret Pep (0-900) pg/mL Slides for Path Review - Progress Progress: improved Progress Note: 11/04/22 15:46 Patient is here with A. fib with RVR. Patient will be started on a diltiazem drip. Patient has some low back pain. However no chest pain. Patient's D- dimer is 0.57. Per age-adjusted D-dimer this is negative. I did discuss over the phone with on-call physician, Dr. Wahl. We made the decision not to obtain a CTA of the chest today looking for PE. This is because patient is already on Eliquis, age-adjusted D-dimer negative, improved on diltiazem drip. Less likely to be a PE today. Although, not impossible therefore Dr. Wahl will see and reexamine make his decision. Patient's Trope slightly elevated however this is with an expected limits given A. fib with RVR. EKG shows A. fib with RVR without obvious other ST changes. Plan for continued diltiazem drip, admission to the ICU. ED critical care statement As staff physician, I have provided critical care. Time: 65 min Criteria for critical illness: A. fib with RVR on diltiazem drip Treatment and management provided include: Coordination of management with ETC care team, consultants, and inpatient care team. [id number] assessment of condition and response to therapy. Review and interpretation of emergent diagnostic testing. Medical chart review and completion. Direction and immediate supervision of the following therapy: Critical care was time spent personally by me on the following activities: blood draw for specimens, development of treatment plan with patient or surrogate, discussions with consultants, discussions with primary provider, interpretation of cardiac output measurements, evaluation of patient's response to treatment, examination of patient, obtaining history from patient or surrogate, ordering and performing treatments and interventions, ordering and review of laboratory studies, ordering and review of radiographic studies, pulse oximetry, re-evaluation of patient's condition and review of old charts. This time was independent of all procedures performed. Bipin Gaston Discussed with Dr.: Slime Will see patient in: hospital (observation) Counseled pt/family regarding: lab results, diagnosis, need for follow-up, rad results - Departure Departure Disposition: Observation Clinical Impression: Atrial fibrillation with RVR Condition: Stable Critical Care Time: No Referrals: CALVIN PALOMINO [Primary Care Provider] - Follow up/PCP as directed
[2022-11-04 16:02] LABS: INFLUENZA A NEGATIVE (NEGATIVE); INFLUENZA B NEGATIVE (NEGATIVE); RESPIRATORY SYNCTIAL VIRUS NEGATIVE (Negative); SARS-CoV-2 Xpert Express NEGATIVE (NEGATIVE)
[2022-11-04] MEDS ORDERED: VENTOLIN COMMON CANISTER IH PRN (16:40)
[2022-11-04] MEDS ORDERED: TYLENOL 325 MG PO PRN (16:40)
[2022-11-04] MEDS: Lasix 20 MG/2 ML IV SCH (17:14)
[2022-11-04] MEDS ORDERED: MEDICATION INTERVENTION MC SCH ×3 (17:15)
[2022-11-04] MEDS: HUMALOG SQ PRN ×2 (17:39→20:39)
[2022-11-04] MEDS: Advair Hfa 115/21 Common canister IH SCH (18:03)
[2022-11-04] MEDS: NORCO 7.5/325 MG TAB PO PRN (18:51)
[2022-11-04] MEDS ORDERED: FLUTICASONE-SALMETEROL 250-50 IH SCH (19:00)
[2022-11-04] MEDS: Ativan 0.5 MG PO PRN (20:16)
[2022-11-04] MEDS: MORPHINE SULFATE 2 MG INJ IV PRN (20:16)
--- NOTE | 2022-11-04 20:26 | PCM.HP ---
History of Present Illness - Chief Complaint Chief Complaint: afib/rvr History of Present Illness: late entry, patient was seen in ER around 4:00pm) is a 62 year old female patient of Dr Holguin, she presented to the ER today with a primary complaint of dyspnea, she reports steadily worsening shortness of breath for the last several days, she had some chest pain in ER but she attributed this to her difficulty breathing. She has worsening swelling of her feet and lower legs and for the last several nights had to sleep sitting up as she was very dyspneic when lying flat. She has a longstanding cardiac history including a fib and has seen Dr Selby in the past and the care group in [place] but Dr Selby and Dr Robert from [place] most recently, she reported compliance with meds but was stating she had been on metoprolol at one point but her current med list has coreg 6.125mg bid, she seems very unsure of her current medications but reports compliance with everything. - Review of Systems Constitutional: No Fever, No Chills Respiratory: Short Of Breath Cardiac: Chest Pain (resolved with morphine in ER), Edema, Orthopnea Abdominal/Gastrointestinal: No Abdominal Pain, No Nausea, No Vomiting, No Diarrhea Genitourinary Symptoms: No Dysuria Skin: No Rash All Other Systems: Reviewed and Negative Medications & Allergies Home Medications: Home Medication List Duloxetine HCl 60 mg PO DAILY 03/17/16 [History Confirmed 11/04/22] Mesalamine [Pentasa] 500 mg PO BID 03/17/16 [History Confirmed 11/04/22] Omeprazole 20 MG [Prilosec 20 mg] 20 mg PO BID 03/17/16 [History Confirmed 11/04/22] Atorvastatin Calcium 10 mg PO DAILY 01/25/18 [History Confirmed 11/04/22] Meclizine HCl 25 mg [Antivert 25 mg] 25 mg PO Q8H PRN PRN 12/05/19 [History Confirmed 11/04/22] Isosorbide Mononitrate 60 mg [Imdur 60MG] 60 mg PO DAILY 12/31/20 [History Confirmed 11/04/22] Levothyroxine Sodium 25 Mcg [Synthroid 25 Mcg] 25 mcg PO DAILY 03/23/21 [History Confirmed 11/04/22] Aripiprazole [Abilify] 2 mg PO DAILY 06/03/22 [History Confirmed 11/04/22] Fluticasone Propion/Salmeterol [Fluticasone-Salmeterol 250-50] 1 each IH BIDRT 06/03/22 [History Confirmed 11/04/22] Loperamide HCl [Loperamide] 4 mg PO Q12H PRN PRN 06/03/22 [History Confirmed 11/04/22] Magnesium Oxide 400 mg [Mag-Ox 400] 800 mg PO DAILY 06/03/22 [History Confirmed 11/04/22] Nitroglycerin 0.4 mg Tablet [Nitrostat 0.4 MG Tablet] 0.4 mg SL Q5MIN PRN MR X 3 PRN 06/03/22 [History Confirmed 11/04/22] Pravastatin Sodium 80 mg PO DAILY 06/03/22 [History Confirmed 11/04/22] Primidone 50 MG [Mysoline 50Mg] 50 mg PO TID 06/03/22 [History Confirmed 11/04/22] Ranolazine 500 MG [Ranexa 500 MG] 500 mg PO BID 06/03/22 [History Confirmed 11/04/22] Saccharomyces Boulardii [Florastor] 250 mg PO BID 06/03/22 [History Confirmed 11/04/22] azaTHIOprine [Azathioprine] 50 mg PO BID 06/03/22 [History Confirmed 11/04/22] lisinopriL [Zestril] 2.5 mg PO DAILY 06/03/22 [History Confirmed 11/04/22] Apixaban [Eliquis 5 mg Tablet] 5 mg PO BID 08/16/22 [History Confirmed 0 11/04/22] Carvedilol [Coreg ] 6.25 mg PO BID #60 tablet 08/19/22 [Rx Confirmed 11/04/22] Diltiazem HCl Cd [Cardizem CD ] 120 mg PO DAILY #30 cap 08/19/22 [Rx Confirmed 11/04/22] Acetaminophen 325 mg [Tylenol 325 mg] 2 tab PO Q4HPRN PRN 10/06/22 [History Confirmed 11/04/22] Albuterol Sulfate [Proventil Hfa] 2 puff IH Q6HPRN PRN 10/06/22 [History Confirmed 11/04/22] Furosemide 40 mg [Lasix 40 MG] 40 mg PO DAILY 10/06/22 [History Confirmed 11/04/22] Hydrocodone/Acetaminophen [Hydrocodone-Acetamin 7.5-325] 1 tab PO BID PRN 10/06/22 [History Confirmed 11/04/22] Hydrocortisone [Proctocort] 28.35 gm RC Q12H PRN PRN 10/06/22 [History Confirmed 11/04/22] Insulin Aspart [NovoLOG Insulin] See Rx Instructions .ROUTE .COMPLEX 10/06/22 [History Confirmed 11/04/22] Insulin Glargine,Hum.rec.anlog [Insulin Glargine] 42 units SQ HS 10/06/22 [History Confirmed 11/04/22] Lorazepam 0.5 mg [Ativan 0.5 MG] 0.5 mg PO [id number] PRN 10/06/22 [History Confirmed 11/04/22] Magnesium Hydroxide 30 ml [Milk of Magnesia 30 ml] 30 ml PO DAILY PRN 10/06/22 [History Confirmed 11/04/22] Metformin HCl 500 mg [Glucophage 500 MG] 500 mg PO DAILY 10/06/22 [History Confirmed 11/04/22] Potassium Chloride 10 meq PO DAILY 10/06/22 [History Confirmed 11/04/22] Allergies/Adverse Reactions: Allergies Allergy/AdvReac Type Severity Reaction Status Date / Time cyclobenzaprine HCl Allergy Mild Rash Verified 10/26/22 02:40 [From Flexeril] metoclopramide [From Reglan] Allergy Mild Rash Verified 10/26/22 02:40 Sulfa (Sulfonamide Allergy Mild Rash Verified 10/26/22 02:40 Antibiotics) [Sulfa(Sulfonamide Antibiotics)] adhesive Allergy Rash Verified 10/26/22 02:40 nalbuphine HCl [From Nubain] AdvReac Intermediate Stomach Verified 10/26/22 02:40 Cramps ciprofloxacin [From Cipro] AdvReac Mild Rash Verified 10/26/22 02:40 meperidine HCl [From Demerol] AdvReac Mild Vomiting Verified 10/26/22 02:40 - Past Medical History Past Medical History: Yes Neurological History: Migraines, Peripheral Neuropathy ENT History: Cataracts Cardiac History: Coronary Artery Disease, High Cholesterol, Hypertension, Myocardial Infarction ([place]), Other Respiratory History: Asthma, Bronchitis, CHF, COPD, Sleep Apnea Endocrine Medical History: Diabetes Type II Musculoskelatal History: Arthritis, Degenerative Disk Disease, Fibromyalgia, Osteoarthritis GI Medical History: Crohns Disease, Diverticulitis, GERD, Irritable Bowel History: No Pertinent History Pyscho-Social History: Anxiety, Depression Reproductive Disorders: No Pertinent History Comment: HX UTI, HX Yeast Infection, Neuropathy, degenerative joint disease - Female History Are you now?: No - Past Surgical History Past Surgical History: Yes Neuro Surgical History: No Pertinent History Cardiac History: Cardiac Catheterization Respiratory Surgery: No Pertinent History GI Surgical History: No Pertinent History Genitourinary Surgical Hx: No Pertinent History Musculskeletal Surgical Hx: No Pertinent History Female Surgical History: Dilation & Curettage, Section, Tubal Ligation Other Surgical History: KIDNEY STONE REMOVAL, right 2nd toe amputated 2021. heart cath x3, no stents, clot removal rt thigh artery - Social History Smoking Status: Former smoker How long have you smoked: years Exposure to second hand smoke: No Alcohol: None Drug Use: none Significant Family History: no pertinent family hx, diabetes, hypertension - Physical Exam Vital Signs: Vital Signs - 24 hr Temp Pulse Resp BP BP Pulse Ox 11/04/22 20:00 95 H 11/04/22 19:14 97 F 92 H 18 111/55 97 11/04/22 18:55 94 H 107/52 11/04/22 18:06 99 H 22 97 11/04/22 17:57 100 H 104/69 11/04/22 17:22 70 18 98 11/04/22 17:00 83 18 113/65 11/04/22 16:46 97.3 F 70 19 113/65 98 11/04/22 16:38 97.3 F 70 19 113/65 98 11/04/22 15:50 97 11/04/22 15:09 98.9 F 114 H 22 103/70 97 11/04/22 14:01 121 H 24 104/79 98 11/04/22 13:05 150 H 22 116/82 96 11/04/22 12:25 142 H 24 111/62 11/04/22 12:02 98.7 F 130 H 24 147/97 100 General Appearance: mild distress, obese Neurologic Exam: alert, oriented x 3, cooperative Eye Exam: PERRL/EOMI, eyes nml inspection Neck Exam: normal inspection, non-tender, supple, full range of motion Respiratory Exam: crackles/rales Cardiovascular Exam: irregular Gastrointestinal/Abdomen Exam: soft, normal bowel sounds, No tenderness, No mass Extremity Exam: pedal edema, swelling Skin Exam: normal color, warm, dry, No rash Results - Labs Lab/Micro Results: Lab Results-Last 24 Hours 11/04/22 11/04/22 11/04/22 Range/Units 12:15 15:10 16:18 WBC (4.0-10.5) x10^3/uL RBC (4.1-5.4) x10^6/uL Hgb (12.0-16.0) g/dL Hct (35-47) % MCV (78-100) fL MCH (26-32) pg MCHC (32-36) g/dL RDW (11.5-14.0) % Plt Count (150-450) x10^3/uL MPV (7.5-11.0) fL Gran % (36.0-66.0) % Immature Gran % (Auto) (0.00-0.4) % Nucleat RBC Rel Count (0.00-0.1) % Eos # (Auto) (0-0.5) x10^3/uL Immature Gran # (Auto) (0.00-0.03) x10^3u/L Absolute Lymphs (auto) (1.0-4.6) x10^3/uL Absolute Monos (auto) (0.0-1.3) x10^3/uL Absolute Nucleated RBC (0.00-0.01) x10^3u/L Lymphocytes % (24.0-44.0) % Monocytes % (0.0-12.0) % Eosinophils % (0.00-5.0) % Basophils % (0.0-0.4) % Absolute Granulocytes (1.4-6.9) x10^3/uL Basophils # (0-0.4) x10^3/uL PT (9.4-12.5) SECONDS INR (0.8-3.0) D-Dimer (0.0-0.50) mg/L Sodium Direct 134 L (138-146) mmol/L Potassium 4.4 (3.5-4.9) mmol/L Chloride 93 L (98-109) mmol/L Carbon Dioxide 30 H (24-29) mmol/L Venous BUN 24 (8-26) mg/dL Creatinine 0.6 (0.6-1.3) mg/dL Glucose 454 H (70-105) mg/dL POC Glucometer (74 to 106) mg/dL Ionized Calcium 1.21 (1.12-1.32) mmol/L Direct Bilirubin (0.0-0.4) mg/dL Troponin 0.05 H (0.00-0.03) ng/mL Troponin I Cancelled 0.022 NT-Pro-B Natriuret Pep (0-900) pg/mL Influenza Type A Ag NEGATIVE (NEGATIVE) Influenza Type B Ag NEGATIVE (NEGATIVE) RSV (PCR) NEGATIVE (Negative) SARS-CoV-2 (PCR) NEGATIVE (NEGATIVE) Slides for Path Review 11/04/22 11/04/22 11/04/22 Range/Units 17:29 Unknown Unknown WBC 8.6 (4.0-10.5) x10^3/uL RBC 4.32 (4.1-5.4) x10^6/uL Hgb 9.5 L (12.0-16.0) g/dL Hct 33.6 L (35-47) % MCV 77.8 L (78-100) fL MCH 22.0 L (26-32) pg MCHC 28.3 L (32-36) g/dL RDW 19.8 H (11.5-14.0) % Plt Count 222 (150-450) x10^3/uL MPV 12.2 H (7.5-11.0) fL Gran % 77.4 H (36.0-66.0) % Immature Gran % (Auto) 0.4 (0.00-0.4) % Nucleat RBC Rel Count 0.0 (0.00-0.1) % Eos # (Auto) 0.21 (0-0.5) x10^3/uL Immature Gran # (Auto) 0.03 (0.00-0.03) x10^3u/L Absolute Lymphs (auto) 0.92 L (1.0-4.6) x10^3/uL Absolute Monos (auto) 0.74 (0.0-1.3) x10^3/uL Absolute Nucleated RBC 0.00 (0.00-0.01) x10^3u/L Lymphocytes % 10.8 L (24.0-44.0) % Monocytes % 8.7 (0.0-12.0) % Eosinophils % 2.5 (0.00-5.0) % Basophils % 0.2 (0.0-0.4) % Absolute Granulocytes 6.63 (1.4-6.9) x10^3/uL Basophils # 0.02 (0-0.4) x10^3/uL PT (9.4-12.5) SECONDS INR (0.8-3.0) D-Dimer (0.0-0.50) mg/L Sodium Direct (138-146) mmol/L Potassium (3.5-4.9) mmol/L Chloride (98-109) mmol/L Carbon Dioxide (24-29) mmol/L Venous BUN (8-26) mg/dL Creatinine (0.6-1.3) mg/dL Glucose (70-105) mg/dL POC Glucometer 404 H (74 to 106) mg/dL Ionized Calcium (1.12-1.32) mmol/L Direct Bilirubin 0.3 (0.0-0.4) mg/dL Troponin (0.00-0.03) ng/mL Troponin I NT-Pro-B Natriuret Pep 713 (0-900) pg/mL Influenza Type A Ag (NEGATIVE) Influenza Type B Ag (NEGATIVE) RSV (PCR) (Negative) SARS-CoV-2 (PCR) (NEGATIVE) Slides for Path Review YES 11/04/22 Range/Units Unknown WBC (4.0-10.5) x10^3/uL RBC (4.1-5.4) x10^6/uL Hgb (12.0-16.0) g/dL Hct (35-47) % MCV (78-100) fL MCH (26-32) pg MCHC (32-36) g/dL RDW (11.5-14.0) % Plt Count (150-450) x10^3/uL MPV (7.5-11.0) fL Gran % (36.0-66.0) % Immature Gran % (Auto) (0.00-0.4) % Nucleat RBC Rel Count (0.00-0.1) % Eos # (Auto) (0-0.5) x10^3/uL Immature Gran # (Auto) (0.00-0.03) x10^3u/L Absolute Lymphs (auto) (1.0-4.6) x10^3/uL Absolute Monos (auto) (0.0-1.3) x10^3/uL Absolute Nucleated RBC (0.00-0.01) x10^3u/L Lymphocytes % (24.0-44.0) % Monocytes % (0.0-12.0) % Eosinophils % (0.00-5.0) % Basophils % (0.0-0.4) % Absolute Granulocytes (1.4-6.9) x10^3/uL Basophils # (0-0.4) x10^3/uL PT 10.9 (9.4-12.5) SECONDS INR 1.03 (0.8-3.0) D-Dimer 0.57 H (0.0-0.50) mg/L Sodium Direct (138-146) mmol/L Potassium (3.5-4.9) mmol/L Chloride (98-109) mmol/L Carbon Dioxide (24-29) mmol/L Venous BUN (8-26) mg/dL Creatinine (0.6-1.3) mg/dL Glucose (70-105) mg/dL POC Glucometer (74 to 106) mg/dL Ionized Calcium (1.12-1.32) mmol/L Direct Bilirubin (0.0-0.4) mg/dL Troponin (0.00-0.03) ng/mL Troponin I NT-Pro-B Natriuret Pep (0-900) pg/mL Influenza Type A Ag (NEGATIVE) Influenza Type B Ag (NEGATIVE) RSV (PCR) (Negative) SARS-CoV-2 (PCR) (NEGATIVE) Slides for Path Review - Radiology Impressions Radiology Exams & Impressions: Radiology Procedures Category Date Time Status CHEST 1 VIEW (PORTABLE) Stat Exams 11/04/22 12:06 Completed - Other Procedures and Tests Respiratory Therapy 11/04/22 17:20 Oxygen Nasal Cannula 3 lpm 11/05/22 07:00 Respiratory Therapy Assessment DAILY Assessment/Plan (1) Atrial fibrillation with RVR Current Visit: Yes Status: Chronic Assessment & Plan: rate controlled on cardizem gtt at 10mg/hr, continue coreg as per home med list as well as eliquis. last echo was 08/2022 with preserved EF. will consult [facility] tomorrow as patient has had multipel recent admissions and needs regular followup Code(s): I48.91 - UNSPECIFIED ATRIAL FIBRILLATION (2) CHF (congestive heart failure) Current Visit: Yes Status: Acute Assessment & Plan: IV lasix ordered, likely from uncontrolled heart rate with a fib. will monitor I/Os, mathur was placed in the ER Code(s): I50.9 - HEART FAILURE, UNSPECIFIED
[2022-11-04] MEDS: Lantus Insulin SQ SCH (20:40)
[2022-11-04] MEDS ORDERED: Robaxin PO ONE (21:49)
[2022-11-04] MEDS ORDERED: NON-FORMULARY ITEM (Apixaban*** [Eliquis 5 Mg Tablet***] 5 MG Tablet) PO SCH (22:00)
[2022-11-04] MEDS ORDERED: SACCHAROMYCES BOULARDII 250 MG PO SCH (22:00)
[2022-11-04] MEDS ORDERED: NON-FORMULARY ITEM (Omeprazole 20 Mg [Prilosec 20 Mg] 20 MG Capsule.Dr) PO SCH (22:00)
[2022-11-04] MEDS ORDERED: AZATHIOPRINE 50 MG PO SCH (22:00)
[2022-11-04] MEDS ORDERED: MESALAMINE 500 MG PO SCH (22:00)
[2022-11-04] MEDS: MYSOLINE 50MG PO SCH (23:06)
[2022-11-04] MEDS: Ranexa 500 MG PO SCH (23:06)
[2022-11-04] MEDS: Protonix 40MG Tablet PO SCH (23:06)
[2022-11-04] MEDS: ELIQUIS 2.5 MG TABLET PO SCH (23:06)
[2022-11-04] MEDS: Coreg PO SCH (23:07)
[2022-11-05] MEDS: MORPHINE SULFATE 2 MG INJ IV PRN ×3 (00:35→16:36)
[2022-11-05 04:57] LABS: Absolute Neutrophil Ct (ANC) 3.37 x10^3/uL (1.4-6.9); BASOPHIL % 0.4 % (0.0-0.4); Basophil (Absolute #) 0.02 x10^3/uL (0-0.4); Eosinophil % 4.4 % (0.00-5.0); Eosinophil (Absolute #) 0.22 x10^3/uL (0-0.5); Hematocrit 29.8 % (35-47); Hemoglobin 8.6 g/dL (12.0-16.0); IMMATURE GRAN # 0.02 x10^3u/L (0.00-0.03); IMMATURE GRAN % 0.4 % (0.00-0.4); Lymphocyte (Absolute #) 0.88 x10^3/uL (1.0-4.6); Lymphocytes % 17.5 % (24.0-44.0); Mean Cell Volume 78.4 fL (78-100); Mean Corpuscular Hemoglobin 22.6 pg (26-32); Mean Corpuscular Hgb Concent. 28.9 g/dL (32-36); Mean Platelet Volume 11.3 fL (7.5-11.0); Monocyte (Absolute #) 0.51 x10^3/uL (0.0-1.3); Monocytes % 10.2 % (0.0-12.0); Neutrophil % 67.1 % (36.0-66.0); Platelet Count 166 x10^3/uL (150-450); Red Cell Distribution Width 20.1 % (11.5-14.0)
[2022-11-05 05:31] LABS: ANION GAP 5.9 MEQ/L (5-15); BLOOD UREA NITROGEN 29 mg/dL (7-17); CHLORIDE 95 mmol/L (98-107); Calcium 8.1 mg/dL (8.4-10.2); Carbon Dioxide 34 mmol/L (22-30); Creatinine 1 0.62 mg/dL (0.52-1.04); EST GLOMERULAR FILTRATION RATE > 60.0 ML/MIN; Glucose 263 mg/dL (74-106); Potassium 4.7 mmol/L (3.5-5.1); SODIUM 131 mmol/L (137-145)
[2022-11-05] MEDS: Advair Hfa 115/21 Common canister IH SCH ×2 (06:53→18:28)
[2022-11-05 07:31] LABS: Slide Review 1 YES
--- NOTE | 2022-11-05 07:46 | PCM.NOTE ---
Date and Time: 11/05/22 0744 Subjective Assessment: swelling in legs and dyspnea is improved, heart rate is currently in the 70's and 80's off cardizem gtt. Objective Exam General Appearance: no apparent distress, obese Neurologic Exam: alert, oriented x 3 Respiratory Exam: crackles/rales (clearing) Cardiovascular Exam: irregular Extremity Exam: swelling (improving) OBJECTIVE DATA Vital Signs: Vital Signs - 24 hr Temp Pulse Resp BP BP Pulse Ox 11/05/22 07:33 82 11/05/22 06:55 75 22 99 11/05/22 06:35 98.1 F 74 32 H 103/80 94 L 11/05/22 04:47 75 18 117/76 100 11/05/22 03:41 97.4 F 67 18 113/66 92 L 11/05/22 00:34 98.1 F 81 18 102/76 99 11/04/22 23:07 97.3 F 79 18 101/68 98 11/04/22 22:26 97.8 F 82 18 126/70 98 11/04/22 21:38 84 126/61 11/04/22 21:20 87 110/68 11/04/22 20:39 85 93/58 11/04/22 20:21 85 112/62 11/04/22 20:00 95 H 11/04/22 19:14 97 F 92 H 18 111/55 97 11/04/22 18:55 94 H 107/52 11/04/22 18:06 99 H 22 97 11/04/22 17:57 100 H 104/69 11/04/22 17:22 70 18 98 11/04/22 17:00 83 18 113/65 11/04/22 16:46 97.3 F 70 19 113/65 98 11/04/22 16:38 97.3 F 70 19 113/65 98 11/04/22 15:50 97 11/04/22 15:09 98.9 F 114 H 22 103/70 97 11/04/22 14:01 121 H 24 104/79 98 11/04/22 13:05 150 H 22 116/82 96 11/04/22 12:25 142 H 24 111/62 11/04/22 12:02 98.7 F 130 H 24 147/97 100 Pain Assessment - Last Documented Pain Intensity 7 Pain Scale Used 0-10 Pain Scale Intake and Output: Intake & Output 11/02/22 11/03/22 11/04/22 11/05/22 11:59 11:59 11:59 11:59 Intake Total 550 Output Total 1400 Balance -850 Weight 131.9 kg Lab Results: Lab Results-Last 24 Hours 11/04/22 11/04/22 11/04/22 Range/Units 12:15 15:10 16:18 WBC (4.0-10.5) x10^3/uL RBC (4.1-5.4) x10^6/uL Hgb (12.0-16.0) g/dL Hct (35-47) % MCV (78-100) fL MCH (26-32) pg MCHC (32-36) g/dL RDW (11.5-14.0) % Plt Count (150-450) x10^3/uL MPV (7.5-11.0) fL Gran % (36.0-66.0) % Immature Gran % (Auto) (0.00-0.4) % Nucleat RBC Rel Count (0.00-0.1) % Eos # (Auto) (0-0.5) x10^3/uL Immature Gran # (Auto) (0.00-0.03) x10^3u/L Absolute Lymphs (auto) (1.0-4.6) x10^3/uL Absolute Monos (auto) (0.0-1.3) x10^3/uL Absolute Nucleated RBC (0.00-0.01) x10^3u/L Lymphocytes % (24.0-44.0) % Monocytes % (0.0-12.0) % Eosinophils % (0.00-5.0) % Basophils % (0.0-0.4) % Absolute Granulocytes (1.4-6.9) x10^3/uL Basophils # (0-0.4) x10^3/uL PT (9.4-12.5) SECONDS INR (0.8-3.0) D-Dimer (0.0-0.50) mg/L Sodium (137-145) mmol/L Sodium Direct 134 L (138-146) mmol/L Potassium 4.4 (3.5-4.9) mmol/L Chloride 93 L (98-109) mmol/L Carbon Dioxide 30 H (24-29) mmol/L Anion Gap (5-15) MEQ/L BUN (7-17) mg/dL Venous BUN 24 (8-26) mg/dL Creatinine 0.6 (0.6-1.3) mg/dL Estimated GFR ML/MIN Glucose 454 H (70-105) mg/dL POC Glucometer (74 to 106) mg/dL Calcium (8.4-10.2) mg/dL Ionized Calcium 1.21 (1.12-1.32) mmol/L Direct Bilirubin (0.0-0.4) mg/dL Troponin 0.05 H (0.00-0.03) ng/mL Troponin I Cancelled 0.022 NT-Pro-B Natriuret Pep (0-900) pg/mL Influenza Type A Ag NEGATIVE (NEGATIVE) Influenza Type B Ag NEGATIVE (NEGATIVE) RSV (PCR) NEGATIVE (Negative) SARS-CoV-2 (PCR) NEGATIVE (NEGATIVE) Slides for Path Review 11/04/22 11/04/22 11/04/22 Range/Units 17:29 20:29 20:31 WBC (4.0-10.5) x10^3/uL RBC (4.1-5.4) x10^6/uL Hgb (12.0-16.0) g/dL Hct (35-47) % MCV (78-100) fL MCH (26-32) pg MCHC (32-36) g/dL RDW (11.5-14.0) % Plt Count (150-450) x10^3/uL MPV (7.5-11.0) fL Gran % (36.0-66.0) % Immature Gran % (Auto) (0.00-0.4) % Nucleat RBC Rel Count (0.00-0.1) % Eos # (Auto) (0-0.5) x10^3/uL Immature Gran # (Auto) (0.00-0.03) x10^3u/L Absolute Lymphs (auto) (1.0-4.6) x10^3/uL Absolute Monos (auto) (0.0-1.3) x10^3/uL Absolute Nucleated RBC (0.00-0.01) x10^3u/L Lymphocytes % (24.0-44.0) % Monocytes % (0.0-12.0) % Eosinophils % (0.00-5.0) % Basophils % (0.0-0.4) % Absolute Granulocytes (1.4-6.9) x10^3/uL Basophils # (0-0.4) x10^3/uL PT (9.4-12.5) SECONDS INR (0.8-3.0) D-Dimer (0.0-0.50) mg/L Sodium (137-145) mmol/L Sodium Direct (138-146) mmol/L Potassium (3.5-4.9) mmol/L Chloride (98-109) mmol/L Carbon Dioxide (24-29) mmol/L Anion Gap (5-15) MEQ/L BUN (7-17) mg/dL Venous BUN (8-26) mg/dL Creatinine (0.6-1.3) mg/dL Estimated GFR ML/MIN Glucose (70-105) mg/dL POC Glucometer 404 H 378 H (74 to 106) mg/dL Calcium (8.4-10.2) mg/dL Ionized Calcium (1.12-1.32) mmol/L Direct Bilirubin (0.0-0.4) mg/dL Troponin (0.00-0.03) ng/mL Troponin I 0.020 NT-Pro-B Natriuret Pep (0-900) pg/mL Influenza Type A Ag (NEGATIVE) Influenza Type B Ag (NEGATIVE) RSV (PCR) (Negative) SARS-CoV-2 (PCR) (NEGATIVE) Slides for Path Review 11/04/22 11/04/22 11/04/22 Range/Units Unknown Unknown Unknown WBC 8.6 (4.0-10.5) x10^3/uL RBC 4.32 (4.1-5.4) x10^6/uL Hgb 9.5 L (12.0-16.0) g/dL Hct 33.6 L (35-47) % MCV 77.8 L (78-100) fL MCH 22.0 L (26-32) pg MCHC 28.3 L (32-36) g/dL RDW 19.8 H (11.5-14.0) % Plt Count 222 (150-450) x10^3/uL MPV 12.2 H (7.5-11.0) fL Gran % 77.4 H (36.0-66.0) % Immature Gran % (Auto) 0.4 (0.00-0.4) % Nucleat RBC Rel Count 0.0 (0.00-0.1) % Eos # (Auto) 0.21 (0-0.5) x10^3/uL Immature Gran # (Auto) 0.03 (0.00-0.03) x10^3u/L Absolute Lymphs (auto) 0.92 L (1.0-4.6) x10^3/uL Absolute Monos (auto) 0.74 (0.0-1.3) x10^3/uL Absolute Nucleated RBC 0.00 (0.00-0.01) x10^3u/L Lymphocytes % 10.8 L (24.0-44.0) % Monocytes % 8.7 (0.0-12.0) % Eosinophils % 2.5 (0.00-5.0) % Basophils % 0.2 (0.0-0.4) % Absolute Granulocytes 6.63 (1.4-6.9) x10^3/uL Basophils # 0.02 (0-0.4) x10^3/uL PT 10.9 (9.4-12.5) SECONDS INR 1.03 (0.8-3.0) D-Dimer 0.57 H (0.0-0.50) mg/L Sodium (137-145) mmol/L Sodium Direct (138-146) mmol/L Potassium (3.5-4.9) mmol/L Chloride (98-109) mmol/L Carbon Dioxide (24-29) mmol/L Anion Gap (5-15) MEQ/L BUN (7-17) mg/dL Venous BUN (8-26) mg/dL Creatinine (0.6-1.3) mg/dL Estimated GFR ML/MIN Glucose (70-105) mg/dL POC Glucometer (74 to 106) mg/dL Calcium (8.4-10.2) mg/dL Ionized Calcium (1.12-1.32) mmol/L Direct Bilirubin 0.3 (0.0-0.4) mg/dL Troponin (0.00-0.03) ng/mL Troponin I NT-Pro-B Natriuret Pep 713 (0-900) pg/mL Influenza Type A Ag (NEGATIVE) Influenza Type B Ag (NEGATIVE) RSV (PCR) (Negative) SARS-CoV-2 (PCR) (NEGATIVE) Slides for Path Review YES 11/05/22 11/05/22 11/05/22 Range/Units 04:48 04:48 07:05 WBC 5.0 (4.0-10.5) x10^3/uL RBC 3.80 L (4.1-5.4) x10^6/uL Hgb 8.6 L (12.0-16.0) g/dL Hct 29.8 L (35-47) % MCV 78.4 (78-100) fL MCH 22.6 L (26-32) pg MCHC 28.9 L (32-36) g/dL RDW 20.1 H (11.5-14.0) % Plt Count 166 (150-450) x10^3/uL MPV 11.3 H (7.5-11.0) fL Gran % 67.1 H (36.0-66.0) % Immature Gran % (Auto) 0.4 (0.00-0.4) % Nucleat RBC Rel Count 0.0 (0.00-0.1) % Eos # (Auto) 0.22 (0-0.5) x10^3/uL Immature Gran # (Auto) 0.02 (0.00-0.03) x10^3u/L Absolute Lymphs (auto) 0.88 L (1.0-4.6) x10^3/uL Absolute Monos (auto) 0.51 (0.0-1.3) x10^3/uL Absolute Nucleated RBC 0.00 (0.00-0.01) x10^3u/L Lymphocytes % 17.5 L (24.0-44.0) % Monocytes % 10.2 (0.0-12.0) % Eosinophils % 4.4 (0.00-5.0) % Basophils % 0.4 (0.0-0.4) % Absolute Granulocytes 3.37 (1.4-6.9) x10^3/uL Basophils # 0.02 (0-0.4) x10^3/uL PT (9.4-12.5) SECONDS INR (0.8-3.0) D-Dimer (0.0-0.50) mg/L Sodium 131 L (137-145) mmol/L Sodium Direct (138-146) mmol/L Potassium 4.7 (3.5-4.9) mmol/L Chloride 95 L (98-109) mmol/L Carbon Dioxide 34 H (24-29) mmol/L Anion Gap 5.9 (5-15) MEQ/L BUN 29 H (7-17) mg/dL Venous BUN (8-26) mg/dL Creatinine 0.62 (0.6-1.3) mg/dL Estimated GFR > 60.0 ML/MIN Glucose 263 H (70-105) mg/dL POC Glucometer 184 H (74 to 106) mg/dL Calcium 8.1 L (8.4-10.2) mg/dL Ionized Calcium (1.12-1.32) mmol/L Direct Bilirubin (0.0-0.4) mg/dL Troponin (0.00-0.03) ng/mL Troponin I NT-Pro-B Natriuret Pep (0-900) pg/mL Influenza Type A Ag (NEGATIVE) Influenza Type B Ag (NEGATIVE) RSV (PCR) (Negative) SARS-CoV-2 (PCR) (NEGATIVE) Slides for Path Review YES Radiology Exams: Radiology Procedures Category Date Time Status CHEST 1 VIEW (PORTABLE) Stat Exams 11/04/22 12:06 Completed Assessment/Plan (1) Atrial fibrillation with RVR Current Visit: Yes Status: Chronic Assessment & Plan: continue eliquis, rate controlled controlled with coreg alone, will monitor and add po cardizem if needed Code(s): I48.91 - UNSPECIFIED ATRIAL FIBRILLATION (2) CHF (congestive heart failure) Current Visit: Yes Status: Acute Assessment & Plan: per nursing 1200mL out mathur, improving clinically. likely home tomorrow Code(s): I50.9 - HEART FAILURE, UNSPECIFIED
[2022-11-05] MEDS: NORCO 7.5/325 MG TAB PO PRN ×2 (08:03→22:19)
[2022-11-05] MEDS: Zocor 10MG PO SCH (08:05)
[2022-11-05] MEDS: SYNTHROID 25 MCG PO SCH (08:05)
[2022-11-05] MEDS: Coreg PO SCH ×2 (08:05→22:20)
[2022-11-05] MEDS: Ranexa 500 MG PO SCH ×2 (08:05→22:19)
[2022-11-05] MEDS: ELIQUIS 2.5 MG TABLET PO SCH ×2 (08:05→22:19)
[2022-11-05] MEDS: Imdur 60MG PO SCH (08:05)
[2022-11-05] MEDS: MYSOLINE 50MG PO SCH ×3 (08:05→22:19)
[2022-11-05] MEDS: Acidophilus TABLET PO SCH (08:05)
[2022-11-05] MEDS: Lasix 20 MG/2 ML IV SCH ×2 (08:05→15:48)
[2022-11-05] MEDS: Protonix 40MG Tablet PO SCH ×2 (08:05→22:20)
[2022-11-05] MEDS: Cymbalta 30 MG Capsule PO SCH (08:05)
[2022-11-05] MEDS: MAG-OX 400 PO SCH (08:05)
[2022-11-05] MEDS: Klor Con PO SCH (08:06)
[2022-11-05] MEDS ORDERED: NON-FORMULARY ITEM (Atorvastatin Calcium [Atorvastatin Calcium] 10 MG Tablet) PO SCH (10:00)
[2022-11-05] MEDS ORDERED: NON-FORMULARY ITEM (Duloxetine Hcl [Duloxetine Hcl] 60 MG Capsule.Dr) PO SCH (10:00)
[2022-11-05] MEDS ORDERED: NON-FORMULARY ITEM (Aripiprazole [Abilify] 2 MG Tablet) PO SCH (10:00)
[2022-11-05] MEDS: Ativan 0.5 MG PO PRN (10:20)
[2022-11-05] MEDS: HUMALOG SQ PRN ×2 (15:53→22:20)
[2022-11-05] MEDS: Lantus Insulin SQ SCH (22:20)
[2022-11-06] MEDS: MORPHINE SULFATE 2 MG INJ IV PRN (04:41)
[2022-11-06] MEDS: Advair Hfa 115/21 Common canister IH SCH (07:23)
--- NOTE | 2022-11-06 08:31 | PCM.DS ---
Discharge Summary Date of Admission: 11/04/22 16:21 Admitting Physician: YESY HASKINS Primary Care Provider: CALVIN PALOMINO Allergies Allergies cyclobenzaprine HCl [From Flexeril] Allergy (Mild, Verified 10/26/22 02:40) Rash metoclopramide [From Reglan] Allergy (Mild, Verified 10/26/22 02:40) Rash Sulfa (Sulfonamide Antibiotics) [Sulfa(Sulfonamide Antibiotics)] Allergy (Mild, Verified 10/26/22 02:40) Rash adhesive Allergy (Verified 10/26/22 02:40) Rash nalbuphine HCl [From Nubain] Adverse Reaction (Intermediate, Verified 10/26/22 02:40) Stomach Cramps patient states she had stomach "burning" and that her legs felt like "rubber bands" ciprofloxacin [From Cipro] Adverse Reaction (Mild, Verified 10/26/22 02:40) Rash meperidine HCl [From Demerol] Adverse Reaction (Mild, Verified 10/26/22 02:40) Vomiting Hospital Summary - Hospital Course Hospital Course: patient was admitted with a fib with RVR, started on cardizem gtt and converted to sinus rhythm now and feeling better. also found to be in chf and has diuresed >4L since arrival. her lungs are clear, she is on 3L oxygen which is her baseline flow rate. she is felt ready for discharge today. currently living with her son and sleeping on a couch, she feels she would be better served to discharge to a facility for higher level of care as he has multiple recent hospital admissions - Vitals & Intake/Output Vital Signs: Vital Signs Temperature 98.1 F 11/06/22 07:30 Pulse Rate 71 11/06/22 07:30 Respiratory Rate 16 11/06/22 07:30 Blood Pressure 111/67 11/06/22 07:30 O2 Sat by Pulse Oximetry 98 11/06/22 07:30 Intake & Output: Intake & Output 11/03/22 11/04/22 11/05/22 11/06/22 11:59 11:59 11:59 11:59 Intake Total 550 1920 Output Total 1400 3250 Balance -850 -1330 Weight 131.9 kg - Lab Result Diagrams: 11/05/22 04:48 11/05/22 04:48 Lab Results-Last 24 Hrs: Lab Results-Last 24 Hours 11/05/22 11/05/22 11/05/22 Range/Units 11:15 15:49 20:11 POC Glucometer 236 H 356 H 290 H (74 to 106) mg/dL 11/06/22 Range/Units 07:09 POC Glucometer 100 (74 to 106) mg/dL Micro Results-Entire Visit: Accuchecks Date 11/06/22 Time 07:36 - Radiology Exams Ordered Rad Exams-Entire Visit: Radiology Procedures Category Date Time Status CHEST 1 VIEW (PORTABLE) Stat Exams 11/04/22 12:06 Completed - Procedures and Test Procedures and Tests throughout Hospitalization: Therapy Orders & Screens 11/04/22 17:20 Oxygen Nasal Cannula 3 lpm Comment: Diagnosis: afib/rvr 11/05/22 07:00 Respiratory Therapy Assessment DAILY Comment: Diagnosis: afib/rvr Discharge Exam General Appearance: no apparent distress, obese Respiratory Exam: normal breath sounds, lungs clear Cardiovascular Exam: regular rate/rhythm, normal heart sounds Gastrointestinal/Abdomen Exam: soft, No tenderness, No mass Extremity Exam: pedal edema, swelling Skin Exam: normal color, warm, dry Final Diagnosis/Problem List - Final Discharge Diagnosis/Problem (1) Atrial fibrillation with RVR Current Visit: Yes Status: Chronic Assessment & Plan: converted at this time, continue current po meds Code(s): I48.91 - UNSPECIFIED ATRIAL FIBRILLATION (2) CHF (congestive heart failure) Current Visit: Yes Status: Acute Assessment & Plan: appears euvolemic and doing well at this time. Code(s): I50.9 - HEART FAILURE, UNSPECIFIED - Discharge Disposition: DC TO ANY "OTHER" [facility] Condition: Good Prescriptions: Continue Mesalamine [Pentasa] 500 mg PO BID Omeprazole 20 MG [Prilosec 20 mg] 20 mg PO BID Duloxetine HCl 60 mg PO DAILY Atorvastatin Calcium 10 mg PO DAILY Meclizine HCl 25 mg [Antivert 25 mg] 25 mg PO Q8H PRN PRN PRN Reason: Dizziness Levothyroxine Sodium 25 Mcg [Synthroid 25 Mcg] 25 mcg PO DAILY Isosorbide Mononitrate 60 mg [Imdur 60MG] 60 mg PO DAILY Saccharomyces Boulardii [Florastor] 250 mg PO BID Ranolazine 500 MG [Ranexa 500 MG] 500 mg PO BID Primidone 50 MG [Mysoline 50Mg] 50 mg PO TID Pravastatin Sodium 80 mg PO DAILY Nitroglycerin 0.4 mg Tablet [Nitrostat 0.4 MG Tablet] 0.4 mg SL Q5MIN PRN MR X 3 PRN PRN Reason: Chest Pain Magnesium Oxide 400 mg [Mag-Ox 400] 800 mg PO DAILY Loperamide HCl [Loperamide] 4 mg PO Q12H PRN PRN PRN Reason: Diarrhea lisinopriL [Zestril] 2.5 mg PO DAILY Fluticasone Propion/Salmeterol [Fluticasone-Salmeterol 250-50] 1 each IH BIDRT azaTHIOprine [Azathioprine] 50 mg PO BID Aripiprazole [Abilify] 2 mg PO DAILY Apixaban [Eliquis 5 mg Tablet] 5 mg PO BID Carvedilol [Coreg ] 6.25 mg PO BID #60 tablet Furosemide 40 mg [Lasix 40 MG] 40 mg PO DAILY Insulin Glargine,Hum.rec.anlog [Insulin Glargine] 42 units SQ HS Acetaminophen 325 mg [Tylenol 325 mg] 2 tab PO Q4HPRN PRN PRN Reason: Pain Albuterol Sulfate [Proventil Hfa] 2 puff IH Q6HPRN PRN PRN Reason: Shortness Of Breath Hydrocortisone [Proctocort] 28.35 gm RC Q12H PRN PRN PRN Reason: Hemorrhoids Potassium Chloride 10 meq PO DAILY Insulin Aspart [NovoLOG Insulin] See Rx Instructions .ROUTE .COMPLEX Metformin HCl 500 mg [Glucophage 500 MG] 500 mg PO DAILY Magnesium Hydroxide 30 ml [Milk of Magnesia 30 ml] 30 ml PO DAILY PRN PRN Reason: Constipation Hydrocodone/Acetaminophen [Hydrocodone-Acetamin 7.5-325] 1 tab PO BID PRN #60 tablet MDD 2 PRN Reason: Pain Discontinued Diltiazem HCl Cd [Cardizem CD ] 120 mg PO DAILY #30 cap Lorazepam 0.5 mg [Ativan 0.5 MG] 0.5 mg PO [id number] PRN PRN Reason: Anxiety Follow up with: CALVIN PALOMINO [Primary Care Provider] -
[2022-11-06] MEDS: Cymbalta 30 MG Capsule PO SCH (09:54)
[2022-11-06] MEDS: Klor Con PO SCH (09:55)
[2022-11-06] MEDS: SYNTHROID 25 MCG PO SCH (09:55)
[2022-11-06] MEDS: MAG-OX 400 PO SCH (09:55)
[2022-11-06] MEDS: ELIQUIS 2.5 MG TABLET PO SCH (09:55)
[2022-11-06] MEDS: Ranexa 500 MG PO SCH (09:55)
[2022-11-06] MEDS: Acidophilus TABLET PO SCH (09:56)
[2022-11-06] MEDS: Protonix 40MG Tablet PO SCH (09:56)
[2022-11-06] MEDS: NORCO 7.5/325 MG TAB PO PRN (09:56)
[2022-11-06] MEDS: Imdur 60MG PO SCH (09:56)
[2022-11-06] MEDS: MYSOLINE 50MG PO SCH (09:57)
[2022-11-06] MEDS: Coreg PO SCH (09:57)
[2022-11-06] MEDS: Zocor 10MG PO SCH (09:58)
[2022-11-06] MEDS: Lasix 20 MG/2 ML IV SCH (09:58)
[2022-11-06 11:07] VITALS: BP 113/63; PULSE 82; O2SAT 94
== END 2022-11-06 13:35 | disposition home health service (06) ==
LOC: ED 12:00 → ICU 16:21 → MED SURG 11-05 07:35
PROVIDERS: ADMIT Family Medicine; ATTEND Family Medicine
DX: I48.20 Chronic atrial fibrillation, unspecified (principal); I11.0 Hypertensive heart disease with heart failure; I50.9 Heart failure, unspecified; I25.10 Atherosclerotic heart disease of native coronary artery without angina pectoris; E11.9 Type 2 diabetes mellitus without complications; E78.5 Hyperlipidemia, unspecified; R60.0 Localized edema; R06.00 Dyspnea, unspecified; Z79.01 Long term (current) use of anticoagulants; Z79.899 Other long term (current) drug therapy; Z20.828 Contact with and (suspected) exposure to other viral communicable diseases; Z99.81 Dependence on supplemental oxygen
CPT/HCPCS: 0241U; 36000; 36415; 71045; 80047; 80048; 82248; 82947; 83880; 84484; 85025; 85379; 85610; 93005; 93041; 94640; 94762; 96365; 96366; 96374; 96375; 99285; 93268; J1817; J1940; J2270; J2405; A9270-GY; G0378

== ENCOUNTER 2022-11-11 15:27 | Observation (INO) | payer MEDICARE ==
[2022-11-11] MEDS ORDERED: HUMULIN R 100 UNIT in Sodium Chloride 0.9% 100 ML IV PRN (15:43)
[2022-11-11] MEDS ORDERED: HUMULIN R IV ONE (15:43)
[2022-11-11] MEDS ORDERED: Sodium Chloride 0.9% 1000 ML 1,000 ML IV STA (15:43)
[2022-11-11] MEDS ORDERED: Sodium Chloride 0.9% 1000 ML 1,000 ML ONE (15:49)
[2022-11-11] MEDS ORDERED: HUMULIN R ONE (15:59)
[2022-11-11 16:03] LABS: VBG BASE EXCESS 8.7 (-2.0-2.0); VBG HCO3- 30.4 meq/L (22-28); VBG HEMOGLOBIN 10.5; VBG O2 SATURATION 78.1 (95-100); VBG POTASSIUM 4.6 (3.5-5.1)
[2022-11-11 16:04] LABS: VBG CARBOXYHEMOGLOBIN 11.5 % T HGB (0.0-6.9); VBG pH 7.6 (7.32-7.42)
[2022-11-11 16:08] LABS: Absolute Neutrophil Ct (ANC) 3.52 x10^3/uL (1.4-6.9); BASOPHIL % 0.8 % (0.0-0.4); Basophil (Absolute #) 0.04 x10^3/uL (0-0.4); Eosinophil % 4.6 % (0.00-5.0); Eosinophil (Absolute #) 0.23 x10^3/uL (0-0.5); Hematocrit 34.6 % (35-47); Hemoglobin 9.8 g/dL (12.0-16.0); IMMATURE GRAN # 0.02 x10^3u/L (0.00-0.03); IMMATURE GRAN % 0.4 % (0.00-0.4); Lymphocyte (Absolute #) 0.74 x10^3/uL (1.0-4.6); Lymphocytes % 14.9 % (24.0-44.0); Mean Cell Volume 80.7 fL (78-100); Mean Corpuscular Hemoglobin 22.8 pg (26-32); Mean Corpuscular Hgb Concent. 28.3 g/dL (32-36); Mean Platelet Volume 12.1 fL (7.5-11.0); Monocyte (Absolute #) 0.42 x10^3/uL (0.0-1.3); Monocytes % 8.5 % (0.0-12.0); Neutrophil % 70.8 % (36.0-66.0); Platelet Count 224 x10^3/uL (150-450); Red Blood Count 4.29 x10^6/uL (4.1-5.4); Red Cell Distribution Width 21.1 % (11.5-14.0)
[2022-11-11 16:20] LABS: ANION GAP 8.8 MEQ/L (5-15); BLOOD UREA NITROGEN 20 mg/dL (7-17); CHLORIDE 92 mmol/L (98-107); Carbon Dioxide 33 mmol/L (22-30); Creatinine 1 0.49 mg/dL (0.52-1.04); EST GLOMERULAR FILTRATION RATE > 60.0 ML/MIN; Potassium 4.8 mmol/L (3.5-5.1); SODIUM 129 mmol/L (137-145)
[2022-11-11 16:21] LABS: ALBUMIN 3.6 g/dL (3.5-5.0); ALKALINE PHOSPHATASE 321 U/L (38-126); Calcium 9.9 mg/dL (8.4-10.2); SGOT/AST 32 U/L (14-36); SGPT/ALT 26 U/L (0-35); Total Protein 6.5 g/dL (6.3-8.2)
[2022-11-11] MEDS ORDERED: Zofran 4 MG/2 ML VIAL IV ONE (16:30)
--- NOTE | 2022-11-11 16:31 | XRAY ---
Indication: Hyperglycemia. Comparison: November 04, 2022 Portable chest unchanged again demonstrating minimal bibasilar subsegmental atelectasis/scarring, right hemidiaphragm elevation, and borderline cardiomegaly. No new/acute abnormalities.
[2022-11-11 16:36] LABS: Glucose 647 mg/dL (74-106)
[2022-11-11] MEDS ORDERED: Zofran 4 MG/2 ML VIAL ONE (16:52)
--- NOTE | 2022-11-11 17:32 | ERPHSYRPT ---
- History of Present Illness Time Seen by Provider: 11/11/22 15:40 Source: patient Exam Limitations: no limitations Patient Subjective Stated Complaint: Pt c/o of hyperglycemia and afib Triage Nursing Assessment: Pt brought to the ER by EMS, tachycardic, hypertensive, rates overall pain as 9-10/10, breathing heavily, pt states that she has a couple of decubitus ulcers on her buttocks that have been causing extreme pain, pulses normal, skin nl/w/d, Physician History: Patient is a 62-year-old white female who presents with a complaint of high blood sugars. Numerous readings at home on her glucometer rated as high and that was confirmed by EMS. She called her doctor's office Dr. Holguin and he instructed her to come to the ER. She also complains of some sacral ulcers and some difficulty breathing.She has a frequent patient found in the ER. Timing/Duration: today Severity: moderate Modifying Factors: Improves With: nothing Allergies/Adverse Reactions: cyclobenzaprine HCl [From Flexeril] Allergy (Mild, Verified 11/11/22 15:48) Rash metoclopramide [From Reglan] Allergy (Mild, Verified 11/11/22 15:48) Rash Sulfa (Sulfonamide Antibiotics) [Sulfa(Sulfonamide Antibiotics)] Allergy (Mild, Verified 11/11/22 15:48) Rash adhesive Allergy (Verified 11/11/22 15:48) Rash nalbuphine HCl [From Nubain] Adverse Reaction (Intermediate, Verified 11/11/22 15:48) Stomach Cramps patient states she had stomach "burning" and that her legs felt like "rubber bands" ciprofloxacin [From Cipro] Adverse Reaction (Mild, Verified 11/11/22 15:48) Rash meperidine HCl [From Demerol] Adverse Reaction (Mild, Verified 11/11/22 15:48) Vomiting Home Medications: Duloxetine HCl 60 mg PO DAILY 03/17/16 [History] Mesalamine [Pentasa] 500 mg PO BID 03/17/16 [History] Omeprazole 20 MG [Prilosec 20 mg] 20 mg PO BID 03/17/16 [History] Atorvastatin Calcium 10 mg PO DAILY 01/25/18 [History] Meclizine HCl 25 mg [Antivert 25 mg] 25 mg PO Q8H PRN PRN 12/05/19 [History] Isosorbide Mononitrate 60 mg [Imdur 60MG] 60 mg PO DAILY 12/31/20 [History] Levothyroxine Sodium 25 Mcg [Synthroid 25 Mcg] 25 mcg PO DAILY 12/31/20 [History] Aripiprazole [Abilify] 2 mg PO DAILY 06/03/22 [History] Fluticasone Propion/Salmeterol [Fluticasone-Salmeterol 250-50] 1 each IH BIDRT 06/03/22 [History] Loperamide HCl [Loperamide] 4 mg PO Q12H PRN PRN 06/03/22 [History] Magnesium Oxide 400 mg [Mag-Ox 400] 800 mg PO DAILY 06/03/22 [History] Nitroglycerin 0.4 mg Tablet [Nitrostat 0.4 MG Tablet] 0.4 mg SL Q5MIN PRN MR X 3 PRN 06/03/22 [History] Pravastatin Sodium 80 mg PO DAILY 06/03/22 [History] Primidone 50 MG [Mysoline 50Mg] 50 mg PO TID 06/03/22 [History] Ranolazine 500 MG [Ranexa 500 MG] 500 mg PO BID 06/03/22 [History] Saccharomyces Boulardii [Florastor] 250 mg PO BID 06/03/22 [History] azaTHIOprine [Azathioprine] 50 mg PO BID 06/03/22 [History] lisinopriL [Zestril] 2.5 mg PO DAILY 06/03/22 [History] Apixaban [Eliquis 5 mg Tablet] 5 mg PO BID 08/16/22 [History] Acetaminophen 325 mg [Tylenol 325 mg] 2 tab PO Q4HPRN PRN 10/06/22 [History] Albuterol Sulfate [Proventil Hfa] 2 puff IH Q6HPRN PRN 10/06/22 [History] Furosemide 40 mg [Lasix 40 MG] 40 mg PO DAILY 10/06/22 [History] Hydrocortisone [Proctocort] 28.35 gm RC Q12H PRN PRN 10/06/22 [History] Insulin Aspart [NovoLOG Insulin] See Rx Instructions .ROUTE .COMPLEX 10/06/22 [History] Insulin Glargine,Hum.rec.anlog [Insulin Glargine] 42 units SQ HS 10/06/22 [History] Magnesium Hydroxide 30 ml [Milk of Magnesia 30 ml] 30 ml PO DAILY PRN 10/06/22 [History] Metformin HCl 500 mg [Glucophage 500 MG] 500 mg PO DAILY 10/06/22 [History] Potassium Chloride 10 meq PO DAILY 10/06/22 [History] Hx Tetanus, Diphtheria Vaccination/Date Given: No (unknown) Hx Influenza Vaccination/Date Given: No Hx Pneumococcal Vaccination/Date Given: No Travel Risk - International Travel Have you traveled outside of the country in past 3 weeks: No - Coronavirus Screening Are you exhibiting any of the following symptoms?: No - Vaccine Status Have you recieved a Covid-19 vaccination: No - Review of Systems Constitutional: No Fever, No Chills Eyes: No Symptoms Ears, Nose, & Throat: No Symptoms Respiratory: No Cough, No Dyspnea Cardiac: No Chest Pain, No Edema, No Syncope Abdominal/Gastrointestinal: No Abdominal Pain, No Nausea, No Vomiting, No Diarrhea Genitourinary Symptoms: No Dysuria Musculoskeletal: No Back Pain, No Neck Pain Skin: No Rash Neurological: No Dizziness, No Focal Weakness, No Sensory Changes Psychological: No Symptoms Endocrine: No Symptoms All Other Systems: Reviewed and Negative - Past Medical History Pertinent Past Medical History: Yes Neurological History: Migraines, Peripheral Neuropathy ENT History: Cataracts Cardiac History: Coronary Artery Disease, High Cholesterol, Hypertension, Myocardial Infarction ([place]), Other Respiratory History: Asthma, Bronchitis, CHF, COPD, Sleep Apnea Endocrine Medical History: Diabetes Type II Musculoskeletal History: Arthritis, Degenerative Disk Disease, Fibromyalgia, Osteoarthritis GI Medical History: Crohns Disease, Diverticulitis, GERD, Irritable Bowel History: No Pertinent History Psycho-Social History: Anxiety, Depression Female Reproductive Disorders: No Pertinent History Other Medical History: HX UTI, HX Yeast Infection, Neuropathy, degenerative joint disease - Past Surgical History Past Surgical History: Yes Neuro Surgical History: No Pertinent History Cardiac: Cardiac Catheterization Respiratory: No Pertinent History Gastrointestinal: No Pertinent History Genitourinary: No Pertinent History Musculoskeletal: No Pertinent History Female Surgical History: Dilation & Curettage, Section, Tubal Ligation Other Surgical History: KIDNEY STONE REMOVAL, right 2nd toe amputated 2021. heart cath x3, no stents, clot removal rt thigh artery - Social History Smoking Status: Former smoker How long have you smoked: years Exposure to second hand smoke: No Alcohol Use: None Drug Use: none Patient Lives Alone: No Significant Family History: no pertinent family hx, diabetes, hypertension - Nursing Vital Signs Nursing Vital Signs: Initial Vital Signs Pulse Rate 120 H 11/11/22 15:30 Blood Pressure 180/105 11/11/22 15:30 O2 Sat by Pulse Oximetry 100 11/11/22 15:30 Pain Scale Pain Intensity 9 - Physical Exam General Appearance: no apparent distress, alert Eye Exam: PERRL/EOMI, eyes nml inspection Ears, Nose, Throat Exam: normal ENT inspection, TMs normal, pharynx normal, moist mucous membranes Neck Exam: normal inspection, non-tender, supple, full range of motion Respiratory Exam: normal breath sounds, lungs clear, No respiratory distress Cardiovascular Exam: regular rate/rhythm, normal heart sounds, normal peripheral pulses Gastrointestinal/Abdomen Exam: soft, normal bowel sounds, No tenderness, No mass Back Exam: normal inspection, normal range of motion, No CVA tenderness, No vertebral tenderness Extremity Exam: normal inspection, normal range of motion, pelvis stable Neurologic Exam: alert, oriented x 3, cooperative, normal mood/affect, nml cerebellar function, nml station & gait, sensation nml, No motor deficits Skin Exam: normal color, warm, dry, No rash Lymphatic Exam: No adenopathy SpO2 Interpretation: O2 applied SpO2: 100 O2 Delivery: Nasal Cannula - Course Nursing assessment & vital signs reviewed: Yes Ordered Tests: Active Orders 24 hr Category Date Time Status EKG-ER Only STAT Care 11/11/22 15:43 Active IV Insertion STAT Care 11/11/22 15:43 Active POCT Glucose Check STAT Care 11/11/22 15:43 Active CHEST 1 VIEW (PORTABLE) Stat Exams 11/11/22 15:43 Completed BLOOD CULTURE Stat Lab 11/11/22 15:50 Received BLOOD CULTURE Stat Lab 11/11/22 15:55 Received CBC W DIFF Stat Lab 11/11/22 15:50 Completed CMP Stat Lab 11/11/22 15:50 Completed CULTURE,URINE Stat Lab 11/11/22 Received Lactic Acid Stat Lab 11/11/22 18:06 Received Lactic Acid Urgent Lab 11/11/22 15:53 Completed POCT GLUCOSE Stat Lab 11/11/22 16:57 Completed POCT GLUCOSE Stat Lab 11/11/22 18:07 Completed UA W/RFX UR CULTURE Stat Lab 11/11/22 Completed VENOUS BLOOD GAS Urgent Lab 11/11/22 15:58 Completed Medication Summary Generic Name Dose Route Start Last Admin Trade Name Fadia PRN Reason Stop Dose Admin Insulin Human Regular 100 unit 100 mls @ 13.154 mls/hr 11/11/22 15:43 11/11/22 17:01 / Sodium Chloride IV 12/11/22 15:42 0 unit/kg/hr .Q7H37M PRN 0 mls/hr DKA/HYPERGLYCEMIA Infusion 0.1 UNIT/KG/HR Discontinued Medications Generic Name Dose Route Start Last Admin Trade Name Fadia PRN Reason Stop Dose Admin Fentanyl Citrate 75 mcg 11/11/22 17:37 11/11/22 18:03 Fentanyl Citrate 100 Mcg/2 Ml* Vial IV 11/11/22 17:38 75 mcg STAT ONE Administration Fentanyl Citrate Confirm 11/11/22 18:03 Fentanyl Citrate 100 Mcg/2 Ml* Vial Administered 11/11/22 18:04 Dose 100 mcg .ROUTE .STK-MED ONE Sodium Chloride 1,000 mls @ 999 mls/hr 11/11/22 15:43 11/11/22 16:55 Sodium Chloride 0.9% 1000 Ml IV 11/11/22 16:43 Infused .Q1H1M STA Infusion Sodium Chloride Confirm 11/11/22 15:49 Sodium Chloride 0.9% 1000 Ml Administered 11/11/22 15:50 Dose 1,000 mls @ ud .ROUTE .STK-MED ONE Insulin Human Isoph/Insulin Regular 20 unit 11/11/22 18:19 11/11/22 18:39 Insulin Nph/Reg 70/30 SQ 11/11/22 18:20 20 unit STAT ONE Administration Insulin Human Isoph/Insulin Regular Confirm 11/11/22 18:29 Insulin Nph/Reg 70/30 Administered 11/11/22 18:30 Dose 20 unit .ROUTE .STK-MED ONE Insulin Human Regular 10 unit 11/11/22 15:43 11/11/22 16:00 Insulin Regular, Human 1 Unit IV 11/11/22 15:44 10 unit STAT ONE Administration Insulin Human Regular Confirm 11/11/22 15:59 Insulin Regular, Human 1 Unit Administered 11/11/22 16:00 Dose 10 unit .ROUTE .STK-MED ONE Ondansetron HCl 4 mg 11/11/22 16:30 11/11/22 16:52 Ondansetron Hcl 4 Mg/2 Ml Vial IV 11/11/22 16:31 4 mg STAT ONE Administration Ondansetron HCl Confirm 11/11/22 16:52 Ondansetron Hcl 4 Mg/2 Ml Vial Administered 11/11/22 16:53 Dose 4 mg .ROUTE .STK-MED ONE Lab/Rad Data: Laboratory Result Diagrams 11/11/22 15:50 11/11/22 15:50 Laboratory Results 11/11/22 11/11/22 11/11/22 Range/Units Unknown 18:07 16:57 WBC (4.0-10.5) x10^3/uL RBC (4.1-5.4) x10^6/uL Hgb (12.0-16.0) g/dL Hct (35-47) % MCV (78-100) fL MCH (26-32) pg MCHC (32-36) g/dL RDW (11.5-14.0) % Plt Count (150-450) x10^3/uL MPV (7.5-11.0) fL Gran % (36.0-66.0) % Immature Gran % (Auto) (0.00-0.4) % Nucleat RBC Rel Count (0.00-0.1) % Eos # (Auto) (0-0.5) x10^3/uL Immature Gran # (Auto) (0.00-0.03) x10^3u/L Absolute Lymphs (auto) (1.0-4.6) x10^3/uL Absolute Monos (auto) (0.0-1.3) x10^3/uL Absolute Nucleated RBC (0.00-0.01) x10^3u/L Lymphocytes % (24.0-44.0) % Monocytes % (0.0-12.0) % Eosinophils % (0.00-5.0) % Basophils % (0.0-0.4) % Absolute Granulocytes (1.4-6.9) x10^3/uL Basophils # (0-0.4) x10^3/uL pO2/FiO2 Ratio % VBG pH (7.32-7.42) VBG pCO2 at Pat Temp (42-55) mm/Hg VBG pO2 at Pat Temp (25-40) mm/Hg VBG HCO3 (22-28) meq/L VBG O2 Sat (Rena) (95-100) VBG Base Excess (-2.0-2.0) VBG Hemoglobin VBG Carboxyhemoglobin (0.0-6.9) % T HGB POC Potassium (3.5-5.1) Sodium (137-145) mmol/L Potassium (3.5-5.1) mmol/L Chloride (98-107) mmol/L Carbon Dioxide (22-30) mmol/L Anion Gap (5-15) MEQ/L BUN (7-17) mg/dL Creatinine (0.52-1.04) mg/dL Estimated GFR ML/MIN Glucose (74-106) mg/dL POC Glucometer 358 H 347 H (74 to 106) mg/dL Lactic Acid (0.4-2.0) Calcium (8.4-10.2) mg/dL Total Bilirubin (0.2-1.3) mg/dL AST (14-36) U/L ALT (0-35) U/L Alkaline Phosphatase (38-126) U/L Serum Total Protein (6.3-8.2) g/dL Albumin (3.5-5.0) g/dL Urine Color Yellow (Yellow) Urine Appearance Clear (Clear) Urine pH 5.5 (4.6-8.0) Ur Specific Mccoy 1.020 (1.005-1.030) Urine Protein Negative (Negative) Urine Glucose (UA) >=1000 A (Negative) mg/dL Urine Ketones Negative (Negative) Urine Blood NHT (Negative) Urine Nitrite Negative (Negative) Urine Bilirubin Negative (Negative) Urine Urobilinogen 0.2 (0.2) mg/dL Ur Leukocyte Esterase Moderate A (Negative) U Hyaline Cast (Auto) NONE SEEN (0-2) /LPF Urine Microscopic RBC 0-2 (0-5) /HPF Urine Microscopic WBC 6-10 A (0-5) /HPF Ur Epithelial Cells Rare (None Seen) /HPF Urine Bacteria Few A (None Seen) /HPF Urine Yeast (Budding) Rare A (None Seen) /HPF Urine Culture Reflexed YES (NO) 11/11/22 11/11/22 11/11/22 Range/Units 15:58 15:53 15:50 WBC (4.0-10.5) x10^3/uL RBC (4.1-5.4) x10^6/uL Hgb (12.0-16.0) g/dL Hct (35-47) % MCV (78-100) fL MCH (26-32) pg MCHC (32-36) g/dL RDW (11.5-14.0) % Plt Count (150-450) x10^3/uL MPV (7.5-11.0) fL Gran % (36.0-66.0) % Immature Gran % (Auto) (0.00-0.4) % Nucleat RBC Rel Count (0.00-0.1) % Eos # (Auto) (0-0.5) x10^3/uL Immature Gran # (Auto) (0.00-0.03) x10^3u/L Absolute Lymphs (auto) (1.0-4.6) x10^3/uL Absolute Monos (auto) (0.0-1.3) x10^3/uL Absolute Nucleated RBC (0.00-0.01) x10^3u/L Lymphocytes % (24.0-44.0) % Monocytes % (0.0-12.0) % Eosinophils % (0.00-5.0) % Basophils % (0.0-0.4) % Absolute Granulocytes (1.4-6.9) x10^3/uL Basophils # (0-0.4) x10^3/uL pO2/FiO2 Ratio 21.0 % VBG pH 7.60 H* (7.32-7.42) VBG pCO2 at Pat Temp 31 L (42-55) mm/Hg VBG pO2 at Pat Temp 37 (25-40) mm/Hg VBG HCO3 30.4 H* (22-28) meq/L VBG O2 Sat (Rena) 78.1 L (95-100) VBG Base Excess 8.7 H (-2.0-2.0) VBG Hemoglobin 10.5 VBG Carboxyhemoglobin 11.5 H* (0.0-6.9) % T HGB POC Potassium 4.6 (3.5-5.1) Sodium 129 L (137-145) mmol/L Potassium 4.8 (3.5-5.1) mmol/L Chloride 92 L (98-107) mmol/L Carbon Dioxide 33 H (22-30) mmol/L Anion Gap 8.8 (5-15) MEQ/L BUN 20 H (7-17) mg/dL Creatinine 0.49 L (0.52-1.04) mg/dL Estimated GFR > 60.0 ML/MIN Glucose 647 H* (74-106) mg/dL POC Glucometer (74 to 106) mg/dL Lactic Acid 2.9 H (0.4-2.0) Calcium 9.9 (8.4-10.2) mg/dL Total Bilirubin 0.50 (0.2-1.3) mg/dL AST 32 (14-36) U/L ALT 26 (0-35) U/L Alkaline Phosphatase 321 H (38-126) U/L Serum Total Protein 6.5 (6.3-8.2) g/dL Albumin 3.6 (3.5-5.0) g/dL Urine Color (Yellow) Urine Appearance (Clear) Urine pH (4.6-8.0) Ur Specific Mccoy (1.005-1.030) Urine Protein (Negative) Urine Glucose (UA) (Negative) mg/dL Urine Ketones (Negative) Urine Blood (Negative) Urine Nitrite (Negative) Urine Bilirubin (Negative) Urine Urobilinogen (0.2) mg/dL Ur Leukocyte Esterase (Negative) U Hyaline Cast (Auto) (0-2) /LPF Urine Microscopic RBC (0-5) /HPF Urine Microscopic WBC (0-5) /HPF Ur Epithelial Cells (None Seen) /HPF Urine Bacteria (None Seen) /HPF Urine Yeast (Budding) (None Seen) /HPF Urine Culture Reflexed (NO) 11/11/22 Range/Units 15:50 WBC 5.0 (4.0-10.5) x10^3/uL RBC 4.29 (4.1-5.4) x10^6/uL Hgb 9.8 L (12.0-16.0) g/dL Hct 34.6 L (35-47) % MCV 80.7 (78-100) fL MCH 22.8 L (26-32) pg MCHC 28.3 L (32-36) g/dL RDW 21.1 H (11.5-14.0) % Plt Count 224 (150-450) x10^3/uL MPV 12.1 H (7.5-11.0) fL Gran % 70.8 H (36.0-66.0) % Immature Gran % (Auto) 0.4 (0.00-0.4) % Nucleat RBC Rel Count 0.0 (0.00-0.1) % Eos # (Auto) 0.23 (0-0.5) x10^3/uL Immature Gran # (Auto) 0.02 (0.00-0.03) x10^3u/L Absolute Lymphs (auto) 0.74 L (1.0-4.6) x10^3/uL Absolute Monos (auto) 0.42 (0.0-1.3) x10^3/uL Absolute Nucleated RBC 0.00 (0.00-0.01) x10^3u/L Lymphocytes % 14.9 L (24.0-44.0) % Monocytes % 8.5 (0.0-12.0) % Eosinophils % 4.6 (0.00-5.0) % Basophils % 0.8 (0.0-0.4) % Absolute Granulocytes 3.52 (1.4-6.9) x10^3/uL Basophils # 0.04 (0-0.4) x10^3/uL pO2/FiO2 Ratio % VBG pH (7.32-7.42) VBG pCO2 at Pat Temp (42-55) mm/Hg VBG pO2 at Pat Temp (25-40) mm/Hg VBG HCO3 (22-28) meq/L VBG O2 Sat (Rena) (95-100) VBG Base Excess (-2.0-2.0) VBG Hemoglobin VBG Carboxyhemoglobin (0.0-6.9) % T HGB POC Potassium (3.5-5.1) Sodium (137-145) mmol/L Potassium (3.5-5.1) mmol/L Chloride (98-107) mmol/L Carbon Dioxide (22-30) mmol/L Anion Gap (5-15) MEQ/L BUN (7-17) mg/dL Creatinine (0.52-1.04) mg/dL Estimated GFR ML/MIN Glucose (74-106) mg/dL POC Glucometer (74 to 106) mg/dL Lactic Acid (0.4-2.0) Calcium (8.4-10.2) mg/dL Total Bilirubin (0.2-1.3) mg/dL AST (14-36) U/L ALT (0-35) U/L Alkaline Phosphatase (38-126) U/L Serum Total Protein (6.3-8.2) g/dL Albumin (3.5-5.0) g/dL Urine Color (Yellow) Urine Appearance (Clear) Urine pH (4.6-8.0) Ur Specific Mccoy (1.005-1.030) Urine Protein (Negative) Urine Glucose (UA) (Negative) mg/dL Urine Ketones (Negative) Urine Blood (Negative) Urine Nitrite (Negative) Urine Bilirubin (Negative) Urine Urobilinogen (0.2) mg/dL Ur Leukocyte Esterase (Negative) U Hyaline Cast (Auto) (0-2) /LPF Urine Microscopic RBC (0-5) /HPF Urine Microscopic WBC (0-5) /HPF Ur Epithelial Cells (None Seen) /HPF Urine Bacteria (None Seen) /HPF Urine Yeast (Budding) (None Seen) /HPF Urine Culture Reflexed (NO) - Progress Progress: improved Discussed with Dr.: Palencia - Departure Departure Disposition: Home Clinical Impression: Hyperglycemia, Urinary incontinence, COPD (chronic obstructive pulmonary disease), Afib Condition: Stable Critical Care Time: No Referrals: CALVIN HOLGUIN [Primary Care Provider] - Follow up/PCP as directed Instructions: Chronic Obstructive Pulmonary Disease
[2022-11-11] MEDS ORDERED: SUBLIMAZE 100 MCG/2 ML IV ONE (17:37)
[2022-11-11] MEDS ORDERED: SUBLIMAZE 100 MCG/2 ML ONE (18:03)
[2022-11-11 18:13] LABS: ADD URINE CULTURE? YES (NO); Appearance Clear (Clear); Bacteria Few /HPF (None Seen); Bilirubin Negative (Negative); Blood NHT (Negative); Budding Yeast Rare /HPF (None Seen); Epithelial Cells Rare /HPF (None Seen); Glucose, Urine >=1000 mg/dL (Negative); Hyaline Casts NONE SEEN /LPF (0-2); Ketones Negative (Negative); Leukocyte Esterase Moderate (Negative); Nitrite Negative (Negative); Ph 5.5 (4.6-8.0); Protein,Urine Dip Negative (Negative); RBC 0-2 /HPF (0-5); Urobilinogen 0.2 mg/dL (0.2)
[2022-11-11] MEDS ORDERED: Novolin 70/30 SQ ONE (18:19)
[2022-11-11] MEDS ORDERED: Novolin 70/30 ONE (18:29)
[2022-11-11 20:21] LABS: INFLUENZA A NEGATIVE (NEGATIVE); INFLUENZA B NEGATIVE (NEGATIVE); RESPIRATORY SYNCTIAL VIRUS NEGATIVE (Negative); SARS-CoV-2 Xpert Express NEGATIVE (NEGATIVE)
[2022-11-11 20:43] LABS: Slide Review 1 YES
[2022-11-11] MEDS ORDERED: VENTOLIN COMMON CANISTER IH PRN (21:54)
[2022-11-11] MEDS: HUMALOG SQ PRN (22:49)
[2022-11-11] MEDS: Sodium Chloride 0.9% 1000 ML 1,000 ML IV SCH (23:26)
[2022-11-11] MEDS ORDERED: Lantus Insulin SQ SCH (23:56)
[2022-11-12] MEDS: Protonix 40MG Tablet PO SCH ×3 (00:18→22:34)
[2022-11-12] MEDS: Ranexa 500 MG PO SCH ×3 (00:18→22:34)
[2022-11-12] MEDS: MYSOLINE 50MG PO SCH ×4 (00:18→22:33)
[2022-11-12] MEDS: ELIQUIS 2.5 MG TABLET PO SCH ×3 (00:18→22:34)
[2022-11-12] MEDS: HYDROCODONE-ACETAMIN 10-325 MG PO PRN ×2 (00:19→12:35)
[2022-11-12] MEDS: TYLENOL 325 MG PO PRN ×3 (04:08→20:50)
[2022-11-12 05:43] LABS: Absolute Neutrophil Ct (ANC) 2.93 x10^3/uL (1.4-6.9); BASOPHIL % 0.4 % (0.0-0.4); Basophil (Absolute #) 0.02 x10^3/uL (0-0.4); Eosinophil % 8.4 % (0.00-5.0); Eosinophil (Absolute #) 0.39 x10^3/uL (0-0.5); Hematocrit 29.1 % (35-47); Hemoglobin 8.1 g/dL (12.0-16.0); IMMATURE GRAN # 0.01 x10^3u/L (0.00-0.03); IMMATURE GRAN % 0.2 % (0.00-0.4); Lymphocyte (Absolute #) 0.84 x10^3/uL (1.0-4.6); Lymphocytes % 18.1 % (24.0-44.0); Mean Cell Volume 79.9 fL (78-100); Mean Corpuscular Hemoglobin 22.3 pg (26-32); Mean Corpuscular Hgb Concent. 27.8 g/dL (32-36); Mean Platelet Volume 11.8 fL (7.5-11.0); Monocyte (Absolute #) 0.44 x10^3/uL (0.0-1.3); Monocytes % 9.5 % (0.0-12.0); Neutrophil % 63.4 % (36.0-66.0); Platelet Count 206 x10^3/uL (150-450); Red Blood Count 3.64 x10^6/uL (4.1-5.4); Red Cell Distribution Width 20.6 % (11.5-14.0); White Blood Count 4.6 x10^3/uL (4.0-10.5)
[2022-11-12 06:02] LABS: ALBUMIN 3.2 g/dL (3.5-5.0); ALKALINE PHOSPHATASE 224 U/L (38-126); ANION GAP 4.9 MEQ/L (5-15); BLOOD UREA NITROGEN 22 mg/dL (7-17); CHLORIDE 96 mmol/L (98-107); Calcium 8.7 mg/dL (8.4-10.2); Carbon Dioxide 35 mmol/L (22-30); Creatinine 1 0.54 mg/dL (0.52-1.04); EST GLOMERULAR FILTRATION RATE > 60.0 ML/MIN; Glucose 195 mg/dL (74-106); Potassium 4.1 mmol/L (3.5-5.1); SGOT/AST 24 U/L (14-36); SGPT/ALT 21 U/L (0-35); SODIUM 132 mmol/L (137-145); Total Protein 6.1 g/dL (6.3-8.2)
[2022-11-12] MEDS: Sodium Chloride 0.9% 1000 ML 1,000 ML IV SCH (06:16)
[2022-11-12 08:36] LABS: Slide Review 1 YES
--- NOTE | 2022-11-12 08:40 | PCM.HP ---
History of Present Illness - Chief Complaint Chief Complaint: Hyperglycemia History of Present Illness: is a 62 year old female patient of Dr Holguin who had a blood sugar greater than 500 yesterday, she has been seen by Dr Galan in the past but not recently due to multiple admission. she is currently only treating her sugars with sliding scale insulin, was on basaglar in the past but states she was told at another facility it was too much insulin. her home health nurse contacted Dr Holguin's nurse yesterday and advised to send Francesca to the ER in spite of hyperglycemia being her only complaint. She doesn't feel well vaguely, has chronic low back pain but no other complaints other than unable to control her blood sugars. - Review of Systems Constitutional: No Fever, No Chills Respiratory: No Cough, No Short Of Breath Cardiac: No Chest Pain, No Edema, No Syncope Abdominal/Gastrointestinal: No Abdominal Pain, No Nausea, No Vomiting, No Diarrhea Genitourinary Symptoms: No Dysuria Skin: No Rash All Other Systems: Reviewed and Negative Medications & Allergies Home Medications: Home Medication List Duloxetine HCl 60 mg PO DAILY 03/17/16 [History Confirmed 11/11/22] Mesalamine [Pentasa] 500 mg PO BID 03/17/16 [History Confirmed 11/11/22] Omeprazole 20 MG [Prilosec 20 mg] 20 mg PO BID 03/17/16 [History Confirmed 11/11/22] Atorvastatin Calcium 10 mg PO DAILY 01/25/18 [History Confirmed 11/11/22] Meclizine HCl 25 mg [Antivert 25 mg] 25 mg PO Q8H PRN PRN 12/05/19 [History Confirmed 11/11/22] Isosorbide Mononitrate 60 mg [Imdur 60MG] 60 mg PO DAILY 12/31/20 [History Confirmed 11/11/22] Levothyroxine Sodium 25 Mcg [Synthroid 25 Mcg] 25 mcg PO DAILY 12/31/20 [History Confirmed 11/11/22] Aripiprazole [Abilify] 2 mg PO DAILY 06/03/22 [History Confirmed 11/11/22] Fluticasone Propion/Salmeterol [Fluticasone-Salmeterol 250-50] 1 each IH BIDRT 06/03/22 [History Confirmed 11/11/22] Loperamide HCl [Loperamide] 4 mg PO Q12H PRN PRN 06/03/22 [History Confirmed 11/11/22] Magnesium Oxide 400 mg [Mag-Ox 400] 800 mg PO DAILY 06/03/22 [History Confirmed 11/11/22] Nitroglycerin 0.4 mg Tablet [Nitrostat 0.4 MG Tablet] 0.4 mg SL Q5MIN PRN MR X 3 PRN 06/03/22 [History Confirmed 11/11/22] Pravastatin Sodium 80 mg PO DAILY 06/03/22 [History Confirmed 11/11/22] Primidone 50 MG [Mysoline 50Mg] 50 mg PO TID 06/03/22 [History Confirmed 11/11/22] Ranolazine 500 MG [Ranexa 500 MG] 500 mg PO BID 06/03/22 [History Confirmed 11/11/22] Saccharomyces Boulardii [Florastor] 250 mg PO BID 06/03/22 [History Confirmed 11/11/22] azaTHIOprine [Azathioprine] 50 mg PO BID 06/03/22 [History Confirmed 11/11/22] lisinopriL [Zestril] 2.5 mg PO DAILY 06/03/22 [History Confirmed 11/11/22] Apixaban [Eliquis 5 mg Tablet] 5 mg PO BID 08/16/22 [History Confirmed 11/11/22] Carvedilol [Coreg ] 6.25 mg PO BID #60 tablet 08/19/22 [Rx Confirmed 11/11/22] Acetaminophen 325 mg [Tylenol 325 mg] 2 tab PO Q4HPRN PRN 10/06/22 [History Confirmed 11/11/22] Albuterol Sulfate [Proventil Hfa] 2 puff IH Q6HPRN PRN 10/06/22 [History Confirmed 11/11/22] Furosemide 40 mg [Lasix 40 MG] 40 mg PO DAILY 10/06/22 [History Confirmed 11/11/22] Hydrocortisone [Proctocort] 28.35 gm RC Q12H PRN PRN 10/06/22 [History Confirmed 11/11/22] Insulin Aspart [NovoLOG Insulin] See Rx Instructions .ROUTE .COMPLEX 10/06/22 [History Confirmed 11/11/22] Insulin Glargine,Hum.rec.anlog [Insulin Glargine] 42 units SQ HS 10/06/22 [Histo ry Confirmed 11/11/22] Magnesium Hydroxide 30 ml [Milk of Magnesia 30 ml] 30 ml PO DAILY PRN 10/06/22 [History Confirmed 11/11/22] Metformin HCl 500 mg [Glucophage 500 MG] 500 mg PO DAILY 10/06/22 [History Confirmed 11/11/22] Potassium Chloride 10 meq PO DAILY 10/06/22 [History Confirmed 11/11/22] Hydrocodone/Acetaminophen [Hydrocodone-Acetamin 7.5-325] 1 tab PO BID PRN #60 tablet MDD 2 11/06/22 [Rx Confirmed 11/11/22] Allergies/Adverse Reactions: Allergies Allergy/AdvReac Type Severity Reaction Status Date / Time cyclobenzaprine HCl Allergy Mild Rash Verified 11/11/22 15:48 [From Flexeril] metoclopramide [From Reglan] Allergy Mild Rash Verified 11/11/22 15:48 Sulfa (Sulfonamide Allergy Mild Rash Verified 11/11/22 15:48 Antibiotics) [Sulfa(Sulfonamide Antibiotics)] adhesive Allergy Rash Verified 11/11/22 15:48 nalbuphine HCl [From Nubain] AdvReac Intermediate Stomach Verified 11/11/22 15:48 Cramps ciprofloxacin [From Cipro] AdvReac Mild Rash Verified 11/11/22 15:48 meperidine HCl [From Demerol] AdvReac Mild Vomiting Verified 11/11/22 15:48 - Past Medical History Past Medical History: Yes Neurological History: Migraines, Peripheral Neuropathy ENT History: Cataracts Cardiac History: Coronary Artery Disease, High Cholesterol, Hypertension, Myocardial Infarction (IA), Other Respiratory History: Asthma, Bronchitis, CHF, COPD, Sleep Apnea Endocrine Medical History: Diabetes Type II Musculoskelatal History: Arthritis, Degenerative Disk Disease, Fibromyalgia, Osteoarthritis GI Medical History: Crohns Disease, Diverticulitis, GERD, Irritable Bowel History: No Pertinent History Pyscho-Social History: Anxiety, Depression Reproductive Disorders: No Pertinent History Comment: HX UTI, HX Yeast Infection, Neuropathy, degenerative joint disease - Female History Are you now?: No - Past Surgical History Past Surgical History: Yes Neuro Surgical History: No Pertinent History Cardiac History: Cardiac Catheterization Respiratory Surgery: No Pertinent History GI Surgical History: No Pertinent History Genitourinary Surgical Hx: No Pertinent History Musculskeletal Surgical Hx: No Pertinent History Female Surgical History: Dilation & Curettage, Section, Tubal Ligation Other Surgical History: KIDNEY STONE REMOVAL, right 2nd toe amputated 2021. heart cath x3, no stents, clot removal rt thigh artery - Social History Smoking Status: Never smoker How long have you smoked: years Exposure to second hand smoke: No Alcohol: None Drug Use: none Significant Family History: no pertinent family hx, diabetes, hypertension - Physical Exam Vital Signs: Vital Signs - 24 hr Temp Pulse Resp BP BP Pulse Ox 11/12/22 07:48 98.0 F 92 H 18 109/57 100 11/12/22 03:42 98.7 F 97 H 24 102/59 99 11/11/22 23:47 98.3 F 100 H 26 H 98/53 99 11/11/22 21:40 74 16 99 11/11/22 21:28 97.3 F 101 H 22 129/58 99 11/11/22 20:23 120 H 113/52 99 11/11/22 19:46 124 H 97/57 97 11/11/22 19:05 116 H 18 106/66 95 11/11/22 19:01 100 11/11/22 17:25 122 H 24 125/61 99 11/11/22 16:27 123 H 20 129/41 98 11/11/22 15:30 120 H 180/105 100 General Appearance: no apparent distress, obese Neurologic Exam: alert, oriented x 3 Respiratory Exam: normal breath sounds, lungs clear, No respiratory distress Cardiovascular Exam: regular rate/rhythm, normal heart sounds, normal peripheral pulses Gastrointestinal/Abdomen Exam: soft, normal bowel sounds, No tenderness, No mass Extremity Exam: normal inspection, normal range of motion, pelvis stable Skin Exam: normal color, warm, dry, No rash Wound Assessment: Skin/Wound Assessment Wound/Incision Assessment Start: 11/11/22 21:49 Text: Status: Active Freq: Q6H Protocol: Document 11/12/22 02:00 CW (Rec: 11/12/22 03:40 CW [id number]) Wound/Incision Assessment Buttock Wound Assessment Admission Wound Stage Stage II Drainage Amount Minimal Drainage Description Serosanguineous Drainage Odor None/Absent General Appearance Open to air Length (cm) (cm) 1.5 Width (cm) (cm) 1.5 Wound Bed Greatest Portion Red (Granulation) Surrounding Tissue Causey Comment NO CHANGE, ZINC CREAM APPLIED Right Buttock Wound Assessment Admission Wound Stage Stage II Drainage Amount Minimal Drainage Description Serosanguineous Drainage Odor None/Absent General Appearance Open to air Length (cm) (cm) 2 Width (cm) (cm) 1.5 Wound Bed Greatest Portion Red (Granulation) Surrounding Tissue Causey Comment NO CHANGE, ZINC APPLIED. Wound Photo Photo Taken Yes Date: 11/12/22 Comment: TAKEN BY Marino GEORGE RN Results - Labs Lab/Micro Results: Lab Results-Last 24 Hours 11/11/22 11/11/22 11/11/22 Range/Units 15:50 15:50 15:53 WBC 5.0 (4.0-10.5) x10^3/uL RBC 4.29 (4.1-5.4) x10^6/uL Hgb 9.8 L (12.0-16.0) g/dL Hct 34.6 L (35-47) % MCV 80.7 (78-100) fL MCH 22.8 L (26-32) pg MCHC 28.3 L (32-36) g/dL RDW 21.1 H (11.5-14.0) % Plt Count 224 (150-450) x10^3/uL MPV 12.1 H (7.5-11.0) fL Gran % 70.8 H (36.0-66.0) % Immature Gran % (Auto) 0.4 (0.00-0.4) % Nucleat RBC Rel Count 0.0 (0.00-0.1) % Eos # (Auto) 0.23 (0-0.5) x10^3/uL Immature Gran # (Auto) 0.02 (0.00-0.03) x10^3u/L Absolute Lymphs (auto) 0.74 L (1.0-4.6) x10^3/uL Absolute Monos (auto) 0.42 (0.0-1.3) x10^3/uL Absolute Nucleated RBC 0.00 (0.00-0.01) x10^3u/L Lymphocytes % 14.9 L (24.0-44.0) % Monocytes % 8.5 (0.0-12.0) % Eosinophils % 4.6 (0.00-5.0) % Basophils % 0.8 (0.0-0.4) % Absolute Granulocytes 3.52 (1.4-6.9) x10^3/uL Basophils # 0.04 (0-0.4) x10^3/uL pO2/FiO2 Ratio % VBG pH (7.32-7.42) VBG pCO2 at Pat Temp (42-55) mm/Hg VBG pO2 at Pat Temp (25-40) mm/Hg VBG HCO3 (22-28) meq/L VBG O2 Sat (Rena) (95-100) VBG Base Excess (-2.0-2.0) VBG Hemoglobin VBG Carboxyhemoglobin (0.0-6.9) % T HGB POC Potassium (3.5-5.1) Sodium 129 L (137-145) mmol/L Potassium 4.8 (3.5-5.1) mmol/L Chloride 92 L (98-107) mmol/L Carbon Dioxide 33 H (22-30) mmol/L Anion Gap 8.8 (5-15) MEQ/L BUN 20 H (7-17) mg/dL Creatinine 0.49 L (0.52-1.04) mg/dL Estimated GFR > 60.0 ML/MIN Glucose 647 H* (74-106) mg/dL POC Glucometer (74 to 106) mg/dL Lactic Acid 2.9 H (0.4-2.0) Calcium 9.9 (8.4-10.2) mg/dL Total Bilirubin 0.50 (0.2-1.3) mg/dL AST 32 (14-36) U/L ALT 26 (0-35) U/L Alkaline Phosphatase 321 H (38-126) U/L Serum Total Protein 6.5 (6.3-8.2) g/dL Albumin 3.6 (3.5-5.0) g/dL Urine Color (Yellow) Urine Appearance (Clear) Urine pH (4.6-8.0) Ur Specific [place] (1.005-1.030) Urine Protein (Negative) Urine Glucose (UA) (Negative) mg/dL Urine Ketones (Negative) Urine Blood (Negative) Urine Nitrite (Negative) Urine Bilirubin (Negative) Urine Urobilinogen (0.2) mg/dL Ur Leukocyte Esterase (Negative) U Hyaline Cast (Auto) (0-2) /LPF Urine Microscopic RBC (0-5) /HPF Urine Microscopic WBC (0-5) /HPF Ur Epithelial Cells (None Seen) /HPF Urine Bacteria (None Seen) /HPF Urine Yeast (Budding) (None Seen) /HPF Urine Culture Reflexed (NO) Influenza Type A Ag (NEGATIVE) Influenza Type B Ag (NEGATIVE) RSV (PCR) (Negative) SARS-CoV-2 (PCR) (NEGATIVE) Slides for Path Review YES 11/11/22 11/11/22 11/11/22 Range/Units 15:58 16:57 18:06 WBC (4.0-10.5) x10^3/uL RBC (4.1-5.4) x10^6/uL Hgb (12.0-16.0) g/dL Hct (35-47) % MCV (78-100) fL MCH (26-32) pg MCHC (32-36) g/dL RDW (11.5-14.0) % Plt Count (150-450) x10^3/uL MPV (7.5-11.0) fL Gran % (36.0-66.0) % Immature Gran % (Auto) (0.00-0.4) % Nucleat RBC Rel Count (0.00-0.1) % Eos # (Auto) (0-0.5) x10^3/uL Immature Gran # (Auto) (0.00-0.03) x10^3u/L Absolute Lymphs (auto) (1.0-4.6) x10^3/uL Absolute Monos (auto) (0.0-1.3) x10^3/uL Absolute Nucleated RBC (0.00-0.01) x10^3u/L Lymphocytes % (24.0-44.0) % Monocytes % (0.0-12.0) % Eosinophils % (0.00-5.0) % Basophils % (0.0-0.4) % Absolute Granulocytes (1.4-6.9) x10^3/uL Basophils # (0-0.4) x10^3/uL pO2/FiO2 Ratio 21.0 % VBG pH 7.60 H* (7.32-7.42) VBG pCO2 at Pat Temp 31 L (42-55) mm/Hg VBG pO2 at Pat Temp 37 (25-40) mm/Hg VBG HCO3 30.4 H* (22-28) meq/L VBG O2 Sat (Rena) 78.1 L (95-100) VBG Base Excess 8.7 H (-2.0-2.0) VBG Hemoglobin 10.5 VBG Carboxyhemoglobin 11.5 H* (0.0-6.9) % T HGB POC Potassium 4.6 (3.5-5.1) Sodium (137-145) mmol/L Potassium (3.5-5.1) mmol/L Chloride (98-107) mmol/L Carbon Dioxide (22-30) mmol/L Anion Gap (5-15) MEQ/L BUN (7-17) mg/dL Creatinine (0.52-1.04) mg/dL Estimated GFR ML/MIN Glucose (74-106) mg/dL POC Glucometer 347 H (74 to 106) mg/dL Lactic Acid 1.9 (0.4-2.0) Calcium (8.4-10.2) mg/dL Total Bilirubin (0.2-1.3) mg/dL AST (14-36) U/L ALT (0-35) U/L Alkaline Phosphatase (38-126) U/L Serum Total Protein (6.3-8.2) g/dL Albumin (3.5-5.0) g/dL Urine Color (Yellow) Urine Appearance (Clear) Urine pH (4.6-8.0) Ur Specific [place] (1.005-1.030) Urine Protein (Negative) Urine Glucose (UA) (Negative) mg/dL Urine Ketones (Negative) Urine Blood (Negative) Urine Nitrite (Negative) Urine Bilirubin (Negative) Urine Urobilinogen (0.2) mg/dL Ur Leukocyte Esterase (Negative) U Hyaline Cast (Auto) (0-2) /LPF Urine Microscopic RBC (0-5) /HPF Urine Microscopic WBC (0-5) /HPF Ur Epithelial Cells (None Seen) /HPF Urine Bacteria (None Seen) /HPF Urine Yeast (Budding) (None Seen) /HPF Urine Culture Reflexed (NO) Influenza Type A Ag (NEGATIVE) Influenza Type B Ag (NEGATIVE) RSV (PCR) (Negative) SARS-CoV-2 (PCR) (NEGATIVE) Slides for Path Review 11/11/22 11/11/22 11/11/22 Range/Units 18:07 19:29 22:10 WBC (4.0-10.5) x10^3/uL RBC (4.1-5.4) x10^6/uL Hgb (12.0-16.0) g/dL Hct (35-47) % MCV (78-100) fL MCH (26-32) pg MCHC (32-36) g/dL RDW (11.5-14.0) % Plt Count (150-450) x10^3/uL MPV (7.5-11.0) fL Gran % (36.0-66.0) % Immature Gran % (Auto) (0.00-0.4) % Nucleat RBC Rel Count (0.00-0.1) % Eos # (Auto) (0-0.5) x10^3/uL Immature Gran # (Auto) (0.00-0.03) x10^3u/L Absolute Lymphs (auto) (1.0-4.6) x10^3/uL Absolute Monos (auto) (0.0-1.3) x10^3/uL Absolute Nucleated RBC (0.00-0.01) x10^3u/L Lymphocytes % (24.0-44.0) % Monocytes % (0.0-12.0) % Eosinophils % (0.00-5.0) % Basophils % (0.0-0.4) % Absolute Granulocytes (1.4-6.9) x10^3/uL Basophils # (0-0.4) x10^3/uL pO2/FiO2 Ratio % VBG pH (7.32-7.42) VBG pCO2 at Pat Temp (42-55) mm/Hg VBG pO2 at Pat Temp (25-40) mm/Hg VBG HCO3 (22-28) meq/L VBG O2 Sat (Rena) (95-100) VBG Base Excess (-2.0-2.0) VBG Hemoglobin VBG Carboxyhemoglobin (0.0-6.9) % T HGB POC Potassium (3.5-5.1) Sodium (137-145) mmol/L Potassium (3.5-5.1) mmol/L Chloride (98-107) mmol/L Carbon Dioxide (22-30) mmol/L Anion Gap (5-15) MEQ/L BUN (7-17) mg/dL Creatinine (0.52-1.04) mg/dL Estimated GFR ML/MIN Glucose (74-106) mg/dL POC Glucometer 358 H 338 H (74 to 106) mg/dL Lactic Acid (0.4-2.0) Calcium (8.4-10.2) mg/dL Total Bilirubin (0.2-1.3) mg/dL AST (14-36) U/L ALT (0-35) U/L Alkaline Phosphatase (38-126) U/L Serum Total Protein (6.3-8.2) g/dL Albumin (3.5-5.0) g/dL Urine Color (Yellow) Urine Appearance (Clear) Urine pH (4.6-8.0) Ur Specific [place] (1.005-1.030) Urine Protein (Negative) Urine Glucose (UA) (Negative) mg/dL Urine Ketones (Negative) Urine Blood (Negative) Urine Nitrite (Negative) Urine Bilirubin (Negative) Urine Urobilinogen (0.2) mg/dL Ur Leukocyte Esterase (Negative) U Hyaline Cast (Auto) (0-2) /LPF Urine Microscopic RBC (0-5) /HPF Urine Microscopic WBC (0-5) /HPF Ur Epithelial Cells (None Seen) /HPF Urine Bacteria (None Seen) /HPF Urine Yeast (Budding) (None Seen) /HPF Urine Culture Reflexed (NO) Influenza Type A Ag NEGATIVE (NEGATIVE) Influenza Type B Ag NEGATIVE (NEGATIVE) RSV (PCR) NEGATIVE (Negative) SARS-CoV-2 (PCR) NEGATIVE (NEGATIVE) Slides for Path Review 11/11/22 11/12/22 11/12/22 Range/Units Unknown 03:06 04:56 WBC 4.6 (4.0-10.5) x10^3/uL RBC 3.64 L (4.1-5.4) x10^6/uL Hgb 8.1 L (12.0-16.0) g/dL Hct 29.1 L (35-47) % MCV 79.9 (78-100) fL MCH 22.3 L (26-32) pg MCHC 27.8 L (32-36) g/dL RDW 20.6 H (11.5-14.0) % Plt Count 206 (150-450) x10^3/uL MPV 11.8 H (7.5-11.0) fL Gran % 63.4 (36.0-66.0) % Immature Gran % (Auto) 0.2 (0.00-0.4) % Nucleat RBC Rel Count 0.0 (0.00-0.1) % Eos # (Auto) 0.39 (0-0.5) x10^3/uL Immature Gran # (Auto) 0.01 (0.00-0.03) x10^3u/L Absolute Lymphs (auto) 0.84 L (1.0-4.6) x10^3/uL Absolute Monos (auto) 0.44 (0.0-1.3) x10^3/uL Absolute Nucleated RBC 0.00 (0.00-0.01) x10^3u/L Lymphocytes % 18.1 L (24.0-44.0) % Monocytes % 9.5 (0.0-12.0) % Eosinophils % 8.4 H (0.00-5.0) % Basophils % 0.4 (0.0-0.4) % Absolute Granulocytes 2.93 (1.4-6.9) x10^3/uL Basophils # 0.02 (0-0.4) x10^3/uL pO2/FiO2 Ratio % VBG pH (7.32-7.42) VBG pCO2 at Pat Temp (42-55) mm/Hg VBG pO2 at Pat Temp (25-40) mm/Hg VBG HCO3 (22-28) meq/L VBG O2 Sat (Rena) (95-100) VBG Base Excess (-2.0-2.0) VBG Hemoglobin VBG Carboxyhemoglobin (0.0-6.9) % T HGB POC Potassium (3.5-5.1) Sodium (137-145) mmol/L Potassium (3.5-5.1) mmol/L Chloride (98-107) mmol/L Carbon Dioxide (22-30) mmol/L Anion Gap (5-15) MEQ/L BUN (7-17) mg/dL Creatinine (0.52-1.04) mg/dL Estimated GFR ML/MIN Glucose (74-106) mg/dL POC Glucometer 191 H (74 to 106) mg/dL Lactic Acid (0.4-2.0) Calcium (8.4-10.2) mg/dL Total Bilirubin (0.2-1.3) mg/dL AST (14-36) U/L ALT (0-35) U/L Alkaline Phosphatase (38-126) U/L Serum Total Protein (6.3-8.2) g/dL Albumin (3.5-5.0) g/dL Urine Color Yellow (Yellow) Urine Appearance Clear (Clear) Urine pH 5.5 (4.6-8.0) Ur Specific [place] 1.020 (1.005-1.030) Urine Protein Negative (Negative) Urine Glucose (UA) >=1000 A (Negative) mg/dL Urine Ketones Negative (Negative) Urine Blood NHT (Negative) Urine Nitrite Negative (Negative) Urine Bilirubin Negative (Negative) Urine Urobilinogen 0.2 (0.2) mg/dL Ur Leukocyte Esterase Moderate A (Negative) U Hyaline Cast (Auto) NONE SEEN (0-2) /LPF Urine Microscopic RBC 0-2 (0-5) /HPF Urine Microscopic WBC 6-10 A (0-5) /HPF Ur Epithelial Cells Rare (None Seen) /HPF Urine Bacteria Few A (None Seen) /HPF Urine Yeast (Budding) Rare A (None Seen) /HPF Urine Culture Reflexed YES (NO) Influenza Type A Ag (NEGATIVE) Influenza Type B Ag (NEGATIVE) RSV (PCR) (Negative) SARS-CoV-2 (PCR) (NEGATIVE) Slides for Path Review 11/12/22 11/12/22 11/12/22 Range/Units 04:56 05:42 06:58 WBC (4.0-10.5) x10^3/uL RBC (4.1-5.4) x10^6/uL Hgb (12.0-16.0) g/dL Hct (35-47) % MCV (78-100) fL MCH (26-32) pg MCHC (32-36) g/dL RDW (11.5-14.0) % Plt Count (150-450) x10^3/uL MPV (7.5-11.0) fL Gran % (36.0-66.0) % Immature Gran % (Auto) (0.00-0.4) % Nucleat RBC Rel Count (0.00-0.1) % Eos # (Auto) (0-0.5) x10^3/uL Immature Gran # (Auto) (0.00-0.03) x10^3u/L Absolute Lymphs (auto) (1.0-4.6) x10^3/uL Absolute Monos (auto) (0.0-1.3) x10^3/uL Absolute Nucleated RBC (0.00-0.01) x10^3u/L Lymphocytes % (24.0-44.0) % Monocytes % (0.0-12.0) % Eosinophils % (0.00-5.0) % Basophils % (0.0-0.4) % Absolute Granulocytes (1.4-6.9) x10^3/uL Basophils # (0-0.4) x10^3/uL pO2/FiO2 Ratio % VBG pH (7.32-7.42) VBG pCO2 at Pat Temp (42-55) mm/Hg VBG pO2 at Pat Temp (25-40) mm/Hg VBG HCO3 (22-28) meq/L VBG O2 Sat (Rena) (95-100) VBG Base Excess (-2.0-2.0) VBG Hemoglobin VBG Carboxyhemoglobin (0.0-6.9) % T HGB POC Potassium (3.5-5.1) Sodium 132 L (137-145) mmol/L Potassium 4.1 (3.5-5.1) mmol/L Chloride 96 L (98-107) mmol/L Carbon Dioxide 35 H (22-30) mmol/L Anion Gap 4.9 L (5-15) MEQ/L BUN 22 H (7-17) mg/dL Creatinine 0.54 (0.52-1.04) mg/dL Estimated GFR > 60.0 ML/MIN Glucose 195 H (74-106) mg/dL POC Glucometer 160 H (74 to 106) mg/dL Lactic Acid 2.0 (0.4-2.0) Calcium 8.7 (8.4-10.2) mg/dL Total Bilirubin 0.50 (0.2-1.3) mg/dL AST 24 (14-36) U/L ALT 21 (0-35) U/L Alkaline Phosphatase 224 H (38-126) U/L Serum Total Protein 6.1 L (6.3-8.2) g/dL Albumin 3.2 L (3.5-5.0) g/dL Urine Color (Yellow) Urine Appearance (Clear) Urine pH (4.6-8.0) Ur Specific [place] (1.005-1.030) Urine Protein (Negative) Urine Glucose (UA) (Negative) mg/dL Urine Ketones (Negative) Urine Blood (Negative) Urine Nitrite (Negative) Urine Bilirubin (Negative) Urine Urobilinogen (0.2) mg/dL Ur Leukocyte Esterase (Negative) U Hyaline Cast (Auto) (0-2) /LPF Urine Microscopic RBC (0-5) /HPF Urine Microscopic WBC (0-5) /HPF Ur Epithelial Cells (None Seen) /HPF Urine Bacteria (None Seen) /HPF Urine Yeast (Budding) (None Seen) /HPF Urine Culture Reflexed (NO) Influenza Type A Ag (NEGATIVE) Influenza Type B Ag (NEGATIVE) RSV (PCR) (Negative) SARS-CoV-2 (PCR) (NEGATIVE) Slides for Path Review Microbiology 11/11/22 Unknown Urine Culture - Preliminary Clean Catch Midstream NO GROWTH TO DATE Accuchecks Date 11/12/22 Date 11/11/22 Date 11/11/22 Time 17:00 Time 17:00 - Radiology Impressions Radiology Exams & Impressions: Radiology Procedures Category Date Time Status CHEST 1 VIEW (PORTABLE) Stat Exams 11/11/22 15:43 Completed - Other Procedures and Tests Respiratory Therapy 11/11/22 21:48 Oxygen Nasal Cannula 3 lpm Respiratory Therapy Assessment DAILY Assessment/Plan (1) Uncontrolled type 2 diabetes mellitus Current Visit: Yes Status: Acute Assessment & Plan: plan to add basal insulin lantus 30 units daily and give scheduled humalog 20 units with meals and monitor. patient will need a consistent regimen prior to discharge to prevent readmission, she has chronic recurrent hospital [facility] dmissions. Code(s): PCT9093 - (2) CHF (congestive heart failure) Current Visit: No Status: Chronic Code(s): I50.9 - HEART FAILURE, UNSPECIFIED (3) Chronic back pain Current Visit: No Status: Chronic Code(s): M54.9 - DORSALGIA, UNSPECIFIED; G89.29 - OTHER CHRONIC PAIN (4) Coronary artery disease Current Visit: No Status: Chronic Qualifiers: Code(s): I25.10 - ATHSCL HEART DISEASE OF [place] CORONARY ARTERY W/O ANG PCTRS
[2022-11-12] MEDS ORDERED: Lantus Insulin SQ SCH (08:41)
[2022-11-12] MEDS: SYNTHROID 25 MCG PO SCH (11:08)
[2022-11-12] MEDS: Klor Con PO SCH (11:08)
[2022-11-12] MEDS: Cymbalta 30 MG Capsule PO SCH (11:08)
[2022-11-12] MEDS: Imdur 60MG PO SCH (11:09)
[2022-11-12] MEDS: MAG-OX 400 PO SCH (11:09)
[2022-11-12] MEDS: Lasix 40 MG PO SCH (11:09)
[2022-11-12] MEDS: Zestril 5 MG PO SCH (11:10)
[2022-11-12] MEDS: NON-FORMULARY ITEM PO SCH ×2 (11:11→22:34)
[2022-11-12] MEDS ORDERED: MEDICATION INTERVENTION MC SCH ×2 (11:15)
[2022-11-12] MEDS ORDERED: Advair Hfa 115/21 Common canister IH SCH (12:00)
[2022-11-12] MEDS: HUMALOG SQ SCH ×2 (13:52→16:57)
[2022-11-12] MEDS ORDERED: FLUTICASONE-SALMETEROL 250-50 IH SCH (19:00)
[2022-11-12] MEDS ORDERED: SACCHAROMYCES BOULARDII 250 MG PO SCH (22:00)
[2022-11-12] MEDS ORDERED: MESALAMINE 500 MG PO SCH (22:00)
[2022-11-12] MEDS ORDERED: AZATHIOPRINE 50 MG PO SCH (22:00)
[2022-11-12] MEDS ORDERED: Zocor 10MG PO SCH (22:00)
[2022-11-12] MEDS: Acidophilus TABLET PO SCH (22:34)
[2022-11-12] MEDS: HUMALOG SQ PRN (22:34)
[2022-11-13] MEDS: HYDROCODONE-ACETAMIN 10-325 MG PO PRN (01:31)
[2022-11-13 05:50] LABS: Absolute Neutrophil Ct (ANC) 3.34 x10^3/uL (1.4-6.9); BASOPHIL % 0.6 % (0.0-0.4); Basophil (Absolute #) 0.03 x10^3/uL (0-0.4); Eosinophil % 10.8 % (0.00-5.0); Eosinophil (Absolute #) 0.52 x10^3/uL (0-0.5); Hematocrit 28.9 % (35-47); Hemoglobin 8.1 g/dL (12.0-16.0); IMMATURE GRAN # 0.02 x10^3u/L (0.00-0.03); IMMATURE GRAN % 0.4 % (0.00-0.4); Lymphocyte (Absolute #) 0.54 x10^3/uL (1.0-4.6); Lymphocytes % 11.2 % (24.0-44.0); Mean Cell Volume 80.3 fL (78-100); Mean Corpuscular Hemoglobin 22.5 pg (26-32); Monocyte (Absolute #) 0.38 x10^3/uL (0.0-1.3); Monocytes % 7.9 % (0.0-12.0); Neutrophil % 69.1 % (36.0-66.0); Platelet Count 215 x10^3/uL (150-450); Red Cell Distribution Width 20.5 % (11.5-14.0); White Blood Count 4.8 x10^3/uL (4.0-10.5)
[2022-11-13 06:15] LABS: ANION GAP 10.7 MEQ/L (5-15); BLOOD UREA NITROGEN 26 mg/dL (7-17); CHLORIDE 93 mmol/L (98-107); Calcium 8.4 mg/dL (8.4-10.2); Carbon Dioxide 32 mmol/L (22-30); Creatinine 1 0.83 mg/dL (0.52-1.04); EST GLOMERULAR FILTRATION RATE > 60.0 ML/MIN; Glucose 204 mg/dL (74-106); SODIUM 131 mmol/L (137-145)
[2022-11-13 07:16] LABS: Slide Review 1 YES
[2022-11-13 08:03] VITALS: BP 103/55; PULSE 77; O2SAT 100
[2022-11-13] MEDS: HUMALOG SQ SCH (08:24)
[2022-11-13] MEDS: Acidophilus TABLET PO SCH (08:25)
[2022-11-13] MEDS: MYSOLINE 50MG PO SCH (08:25)
[2022-11-13] MEDS: Lasix 40 MG PO SCH ×2 (08:25→08:28)
[2022-11-13] MEDS: Ranexa 500 MG PO SCH (08:25)
[2022-11-13] MEDS: SYNTHROID 25 MCG PO SCH (08:25)
[2022-11-13] MEDS: ELIQUIS 2.5 MG TABLET PO SCH (08:25)
[2022-11-13] MEDS: Klor Con PO SCH (08:25)
[2022-11-13] MEDS: Cymbalta 30 MG Capsule PO SCH (08:25)
[2022-11-13] MEDS: NON-FORMULARY ITEM PO SCH (08:26)
[2022-11-13] MEDS: MAG-OX 400 PO SCH (08:26)
[2022-11-13] MEDS: Protonix 40MG Tablet PO SCH (08:26)
[2022-11-13] MEDS: Zestril 5 MG PO SCH (08:30)
[2022-11-13] MEDS: Imdur 60MG PO SCH (08:30)
--- NOTE | 2022-11-13 08:39 | PCM.DS ---
Discharge Summary Date of Admission: 11/11/22 21:22 Admitting Physician: YESY HASKINS Primary Care Provider: CALVIN HOLGUIN Allergies Allergies cyclobenzaprine HCl [From Flexeril] Allergy (Mild, Verified 11/11/22 15:48) Rash metoclopramide [From Reglan] Allergy (Mild, Verified 11/11/22 15:48) Rash Sulfa (Sulfonamide Antibiotics) [Sulfa(Sulfonamide Antibiotics)] Allergy (Mild, Verified 11/11/22 15:48) Rash adhesive Allergy (Verified 11/11/22 15:48) Rash nalbuphine HCl [From Nubain] Adverse Reaction (Intermediate, Verified 11/11/22 15:48) Stomach Cramps patient states she had stomach "burning" and that her legs felt like "rubber bands" ciprofloxacin [From Cipro] Adverse Reaction (Mild, Verified 11/11/22 15:48) Rash meperidine HCl [From Demerol] Adverse Reaction (Mild, Verified 11/11/22 15:48) Vomiting Hospital Summary - Hospital Course Hospital Course: patient admitted with blood sugars over 500. patient lives with her son and currently stays on the couch. she is on 3L oxygen chronically. her blood sugars are very much better controlled now. she has basaglar and novolog at home and has plenty of them. - Vitals & Intake/Output Vital Signs: Vital Signs Temperature 97.5 F 11/13/22 08:02 Pulse Rate 77 11/13/22 08:02 Respiratory Rate 18 11/13/22 08:02 Blood Pressure 103/55 11/13/22 08:02 O2 Sat by Pulse Oximetry 100 11/13/22 08:02 Intake & Output: Intake & Output 11/10/22 11/11/22 11/12/22 11/13/22 11:59 11:59 11:59 11:59 Intake Total 1202 2320 Output Total 1200 800 Balance 2 1520 Weight 133.2 kg 133.8 kg - Lab Result Diagrams: 11/13/22 04:59 11/13/22 04:59 Lab Results-Last 24 Hrs: Lab Results-Last 24 Hours 11/12/22 11/12/22 11/12/22 Range/Units 04:56 10:57 16:18 WBC (4.0-10.5) x10^3/uL RBC (4.1-5.4) x10^6/uL Hgb (12.0-16.0) g/dL Hct (35-47) % MCV (78-100) fL MCH (26-32) pg MCHC (32-36) g/dL RDW (11.5-14.0) % Plt Count (150-450) x10^3/uL MPV (7.5-11.0) fL Gran % (36.0-66.0) % Immature Gran % (Auto) (0.00-0.4) % Nucleat RBC Rel Count (0.00-0.1) % Eos # (Auto) (0-0.5) x10^3/uL Immature Gran # (Auto) (0.00-0.03) x10^3u/L Absolute Lymphs (auto) (1.0-4.6) x10^3/uL Absolute Monos (auto) (0.0-1.3) x10^3/uL Absolute Nucleated RBC (0.00-0.01) x10^3u/L Lymphocytes % (24.0-44.0) % Monocytes % (0.0-12.0) % Eosinophils % (0.00-5.0) % Basophils % (0.0-0.4) % Absolute Granulocytes (1.4-6.9) x10^3/uL Basophils # (0-0.4) x10^3/uL Sodium (137-145) mmol/L Potassium (3.5-5.1) mmol/L Chloride (98-107) mmol/L Carbon Dioxide (22-30) mmol/L Anion Gap (5-15) MEQ/L BUN (7-17) mg/dL Creatinine (0.52-1.04) mg/dL Estimated GFR ML/MIN Glucose (74-106) mg/dL POC Glucometer 232 H 246 H (74 to 106) mg/dL Calcium (8.4-10.2) mg/dL Slides for Path Review YES 11/12/22 11/13/22 11/13/22 Range/Units 22:06 04:59 04:59 WBC 4.8 (4.0-10.5) x10^3/uL RBC 3.60 L (4.1-5.4) x10^6/uL Hgb 8.1 L (12.0-16.0) g/dL Hct 28.9 L (35-47) % MCV 80.3 (78-100) fL MCH 22.5 L (26-32) pg MCHC 28.0 L (32-36) g/dL RDW 20.5 H (11.5-14.0) % Plt Count 215 (150-450) x10^3/uL MPV 12.0 H (7.5-11.0) fL Gran % 69.1 H (36.0-66.0) % Immature Gran % (Auto) 0.4 (0.00-0.4) % Nucleat RBC Rel Count 0.0 (0.00-0.1) % Eos # (Auto) 0.52 H (0-0.5) x10^3/uL Immature Gran # (Auto) 0.02 (0.00-0.03) x10^3u/L Absolute Lymphs (auto) 0.54 L (1.0-4.6) x10^3/uL Absolute Monos (auto) 0.38 (0.0-1.3) x10^3/uL Absolute Nucleated RBC 0.00 (0.00-0.01) x10^3u/L Lymphocytes % 11.2 L (24.0-44.0) % Monocytes % 7.9 (0.0-12.0) % Eosinophils % 10.8 H (0.00-5.0) % Basophils % 0.6 (0.0-0.4) % Absolute Granulocytes 3.34 (1.4-6.9) x10^3/uL Basophils # 0.03 (0-0.4) x10^3/uL Sodium 131 L (137-145) mmol/L Potassium 5.0 D (3.5-5.1) mmol/L Chloride 93 L (98-107) mmol/L Carbon Dioxide 32 H (22-30) mmol/L Anion Gap 10.7 (5-15) MEQ/L BUN 26 H (7-17) mg/dL Creatinine 0.83 (0.52-1.04) mg/dL Estimated GFR > 60.0 ML/MIN Glucose 204 H (74-106) mg/dL POC Glucometer 241 H (74 to 106) mg/dL Calcium 8.4 (8.4-10.2) mg/dL Slides for Path Review YES 11/13/22 Range/Units 06:55 WBC (4.0-10.5) x10^3/uL RBC (4.1-5.4) x10^6/uL Hgb (12.0-16.0) g/dL Hct (35-47) % MCV (78-100) fL MCH (26-32) pg MCHC (32-36) g/dL RDW (11.5-14.0) % Plt Count (150-450) x10^3/uL MPV (7.5-11.0) fL Gran % (36.0-66.0) % Immature Gran % (Auto) (0.00-0.4) % Nucleat RBC Rel Count (0.00-0.1) % Eos # (Auto) (0-0.5) x10^3/uL Immature Gran # (Auto) (0.00-0.03) x10^3u/L Absolute Lymphs (auto) (1.0-4.6) x10^3/uL Absolute Monos (auto) (0.0-1.3) x10^3/uL Absolute Nucleated RBC (0.00-0.01) x10^3u/L Lymphocytes % (24.0-44.0) % Monocytes % (0.0-12.0) % Eosinophils % (0.00-5.0) % Basophils % (0.0-0.4) % Absolute Granulocytes (1.4-6.9) x10^3/uL Basophils # (0-0.4) x10^3/uL Sodium (137-145) mmol/L Potassium (3.5-5.1) mmol/L Chloride (98-107) mmol/L Carbon Dioxide (22-30) mmol/L Anion Gap (5-15) MEQ/L BUN (7-17) mg/dL Creatinine (0.52-1.04) mg/dL Estimated GFR ML/MIN Glucose (74-106) mg/dL POC Glucometer 154 H (74 to 106) mg/dL Calcium (8.4-10.2) mg/dL Slides for Path Review Micro Results-Entire Visit: Microbiology 02/01/23 Unknown Urine Culture - Final Clean Catch Midstream MIXED VIVEK; 3 OR MORE TYPES. NO PREDOMINANT ORGANISM. NO FURTHER WORKUP. PLEASE RESUBMIT IF CLINICALLY INDICATED. 11/11/22 15:55 Blood Culture - Preliminary Blood NO GROWTH TO DATE 11/11/22 15:50 Blood Culture - Preliminary Blood NO GROWTH TO DATE Accuchecks Date 11/13/22 Date 11/12/22 Time 08:02 - Radiology Exams Ordered Rad Exams-Entire Visit: Radiology Procedures Category Date Time Status CHEST 1 VIEW (PORTABLE) Stat Exams 11/11/22 15:43 Completed - Procedures and Test Procedures and Tests throughout Hospitalization: Therapy Orders & Screens 11/11/22 21:48 Oxygen Nasal Cannula 3 lpm Comment: Diagnosis: Hyperglycemia Respiratory Therapy Assessment DAILY Comment: Diagnosis: Hyperglycemia Discharge Exam General Appearance: no apparent distress, obese Neurologic Exam: alert, oriented x 3 Respiratory Exam: normal breath sounds, lungs clear, No respiratory distress Cardiovascular Exam: regular rate/rhythm, normal heart sounds Gastrointestinal/Abdomen Exam: soft, No tenderness, No mass Skin Exam: normal color, warm, dry Wound Assessment: Skin/Wound Assessment Wound/Incision Assessment Start: 11/11/22 21:49 Text: Status: Active Freq: Q6H Protocol: Document 11/13/22 01:44 LM (Rec: 11/13/22 01:47 LM [id number]) Wound/Incision Assessment Buttock Wound Assessment Shift Assessment Wound Type Pressure Ulcer Wound Stage Stage II General Appearance Open to air Length (cm) (cm) 1.5 Width (cm) (cm) 1.5 Wound Bed Greatest Portion Red (Granulation) Surrounding Tissue [place] Comment open to air; barrier cream applied Right Buttock Wound Assessment Shift Assessment Wound Type Pressure Ulcer Wound Stage Stage II General Appearance Open to air Length (cm) (cm) 2 Width (cm) (cm) 1.5 Wound Bed Greatest Portion Red (Granulation) Surrounding Tissue [place] Comment open to air; barrier cream applied Wound Photo Photo Taken Yes Date: 11/12/22 Comment: TAKEN BY Marino GEORGE RN Final Diagnosis/Problem List - Final Discharge Diagnosis/Problem (1) Uncontrolled type 2 diabetes mellitus Current Visit: Yes Status: Acute Assessment & Plan: doing great at this time, will restart basaglar 42 units daily and novolog 15 units sq ac, her blood sugars are in the 150-200 range consistently now on this regimen Code(s): NZU1395 - (2) CHF (congestive heart failure) Current Visit: No Status: Chronic Code(s): I50.9 - HEART FAILURE, UNSPECIFIED (3) Chronic back pain Current Visit: No Status: Chronic Code(s): M54.9 - DORSALGIA, UNSPECIFIED; G89.29 - OTHER CHRONIC PAIN (4) Coronary artery disease Current Visit: No Status: Chronic Code(s): I25.10 - ATHSCL HEART DISEASE OF [place] CORONARY ARTERY W/O ANG PCTRS - Discharge Disposition: Home, Self-Care Condition: Stable Prescriptions: New Insulin Glargine,Hum.rec.anlog [Basaglar Kwikpen U-100] 42 unit SQ DAILY #5 units Continue Mesalamine [Pentasa] 500 mg PO BID Omeprazole 20 MG [Prilosec 20 mg] 20 mg PO BID Duloxetine HCl 60 mg PO DAILY Atorvastatin Calcium 10 mg PO DAILY Meclizine HCl 25 mg [Antivert 25 mg] 25 mg PO Q8H PRN PRN PRN Reason: Dizziness Levothyroxine Sodium 25 Mcg [Synthroid 25 Mcg] 25 mcg PO DAILY Isosorbide Mononitrate 60 mg [Imdur 60MG] 60 mg PO DAILY Saccharomyces Boulardii [Florastor] 250 mg PO BID Ranolazine 500 MG [Ranexa 500 MG] 500 mg PO BID Primidone 50 MG [Mysoline 50Mg] 50 mg PO TID Pravastatin Sodium 80 mg PO DAILY Nitroglycerin 0.4 mg Tablet [Nitrostat 0.4 MG Tablet] 0.4 mg SL Q5MIN PRN MR X 3 PRN PRN Reason: Chest Pain Magnesium Oxide 400 mg [Mag-Ox 400] 800 mg PO DAILY Loperamide HCl [Loperamide] 4 mg PO Q12H PRN PRN PRN Reason: Diarrhea lisinopriL [Zestril] 2.5 mg PO DAILY azaTHIOprine [Azathioprine] 50 mg PO BID Aripiprazole [Abilify] 2 mg PO DAILY Apixaban [Eliquis 5 mg Tablet] 5 mg PO BID Carvedilol [Coreg ] 6.25 mg PO BID #60 tablet Furosemide 40 mg [Lasix 40 MG] 40 mg PO DAILY Insulin Glargine,Hum.rec.anlog [Insulin Glargine] 42 units SQ HS Acetaminophen 325 mg [Tylenol 325 mg] 2 tab PO Q4HPRN PRN PRN Reason: Pain Albuterol Sulfate [Proventil Hfa] 2 puff IH Q6HPRN PRN PRN Reason: Shortness Of Breath Hydrocortisone [Proctocort] 28.35 gm RC Q12H PRN PRN PRN Reason: Hemorrhoids Potassium Chloride 10 meq PO DAILY Metformin HCl 500 mg [Glucophage 500 MG] 500 mg PO DAILY Magnesium Hydroxide 30 ml [Milk of Magnesia 30 ml] 30 ml PO DAILY PRN PRN Reason: Constipation Hydrocodone/Acetaminophen [Hydrocodone-Acetamin 7.5-325] 1 tab PO BID PRN #60 tablet MDD 2 PRN Reason: Pain Changed Insulin Aspart [NovoLOG Insulin] 15 units SQ TIDWM #5 units Additional Instructions: PATIENT HAS BASAGLAR AND NOVOLOG AT HOME! take 42 units basaglar SQ once daily take 15 units of novolog SQ with each meal three times daily see Dr Holguin to review blood sugars and for followup next week Follow up with: CALVIN HOLGUIN [Primary Care Provider] - 1 Week
[2022-11-13] MEDS ORDERED: NON-FORMULARY ITEM (Lisinopril [Zestril] 2.5 MG Tablet) PO SCH (10:00)
[2022-11-13] MEDS ORDERED: NON-FORMULARY ITEM (Aripiprazole [Abilify] 2 MG Tablet) PO SCH (10:00)
[2022-11-13] MEDS ORDERED: NON-FORMULARY ITEM (Duloxetine Hcl [Duloxetine Hcl] 60 MG Capsule.Dr) PO SCH (10:00)
[2022-11-13] MEDS ORDERED: NON-FORMULARY ITEM (Atorvastatin Calcium [Atorvastatin Calcium] 10 MG Tablet) PO SCH (10:00)
== END 2022-11-13 12:09 | disposition home or self-care (01) ==
LOC: ED 15:27 → MED SURG 21:22
PROVIDERS: ADMIT Family Medicine; ATTEND Family Medicine
DX: E11.65 Type 2 diabetes mellitus with hyperglycemia (principal); I11.0 Hypertensive heart disease with heart failure; I50.9 Heart failure, unspecified; M54.9 Dorsalgia, unspecified; I25.10 Atherosclerotic heart disease of native coronary artery without angina pectoris; L89.322 Pressure ulcer of left buttock, stage 2; L89.312 Pressure ulcer of right buttock, stage 2; Z79.01 Long term (current) use of anticoagulants; Z79.899 Other long term (current) drug therapy; Z20.828 Contact with and (suspected) exposure to other viral communicable diseases
CPT/HCPCS: 0241U; 36000; 36415; 71045; 80048; 80053; 81001; 82805; 82947; 83605; 85025; 87040; 87086; 93005; 94760; 96360; 96372; 96374; 96375; 99285; 93268; G0378; J1815; J1817; J2405; J3010; A9270-GY

== ENCOUNTER 2022-11-26 18:55 | Emergency (ER) | payer MEDICARE ==
--- NOTE | 2022-11-26 19:07 | ERPHSYRPT ---
- History of Present Illness Time Seen by Provider: 11/26/22 19:07 Source: patient Exam Limitations: no limitations Physician History: This is a morbidly obese 62-year-old patient of Dr. Holguin who has oxygen dependent COPD as well as history of CHF, coronary disease, renal insufficiency and diabetes as well as gastroesophageal reflux disease. Patient frequents the emergency room often for shortness of breath symptoms. Today, she had a sudden increase in her shortness of breath and associated chest pain that is central, substernal without radiation. Patient was taken by ambulance to [facility] emergency department. I received and reviewed those records and obtained information from them. Patient's blood work and chest x-ray were performed around 4-5 o'clock this afternoon and patient arrived to the emergency department around 715 to 7:30 PM here at [facility]. Patient was taken to our facility by a patient's friend. Patient states that her symptoms are not improved. Patient has chronic shortness of breath and chronic COPD and was placed on oxygen 1 to 2 months ago. She has had CTA of chest as recent as 10/06/2023 which did not show pulmonary embolus. Patient lab from today shows no acute findings except for an elevated D-dimer of 1020 (normal range 0-500). In addition there is a mildly elevated BNP of 276 (normal range 0-100) patient's white count is normal. Patient's sodium is 134 which is good for her. She is chronically anemic and 8.8 is within her typical range of hemoglobin. She also has chronic hyperglycemia and today's value is 416. Patient's troponin and renal function are within normal limits. Patient arrived to the emergency department without her oxygen on and her room air oxygenation level is 86%. However when we placed her on her normal/usual 3 L nasal cannula oxygen, her oxygen saturations increased to 98%. Timing/Duration: today Activities at Onset: none Severity of Dyspnea-Max: mild Severity of Dyspnea-Current: mild Possible Cause: frequent episodes Modifying Factors: Improves With: oxygen (Improved symptoms) Associated Symptoms: chest pain/discomfort (Mild substernal/central nonradiating chest pain), No weakness, No calf pain Allergies/Adverse Reactions: cyclobenzaprine HCl [From Flexeril] Allergy (Mild, Verified 11/26/22 19:09) Rash metoclopramide [From Reglan] Allergy (Mild, Verified 11/26/22 19:09) Rash Sulfa (Sulfonamide Antibiotics) [Sulfa(Sulfonamide Antibiotics)] Allergy (Mild, Verified 11/26/22 19:09) Rash adhesive Allergy (Verified 11/26/22 19:09) Rash nalbuphine HCl [From Nubain] Adverse Reaction (Intermediate, Verified 11/26/22 19:09) Stomach Cramps patient states she had stomach "burning" and that her legs felt like "rubber bands" ciprofloxacin [From Cipro] Adverse Reaction (Mild, Verified 11/26/22 19:09) Rash meperidine HCl [From Demerol] Adverse Reaction (Mild, Verified 11/26/22 19:09) Vomiting Home Medications: Duloxetine HCl 60 mg PO DAILY 03/17/16 [History] Mesalamine [Pentasa] 500 mg PO BID 03/17/16 [History] Omeprazole 20 MG [Prilosec 20 mg] 20 mg PO BID 03/17/16 [History] Atorvastatin Calcium 10 mg PO DAILY 01/25/18 [History] Meclizine HCl 25 mg [Antivert 25 mg] 25 mg PO Q8H PRN PRN 12/05/19 [History] Isosorbide Mononitrate 60 mg [Imdur 60MG] 60 mg PO DAILY 12/31/20 [History] Levothyroxine Sodium 25 Mcg [Synthroid 25 Mcg] 25 mcg PO DAILY 12/31/20 [History] Aripiprazole [Abilify] 2 mg PO DAILY 06/03/22 [History] Loperamide HCl [Loperamide] 4 mg PO Q12H PRN PRN 06/03/22 [History] Magnesium Oxide 400 mg [Mag-Ox 400] 800 mg PO DAILY 06/03/22 [History] Nitroglycerin 0.4 mg Tablet [Nitrostat 0.4 MG Tablet] 0.4 mg SL Q5MIN PRN MR X 3 PRN 06/03/22 [History] Pravastatin Sodium 80 mg PO DAILY 06/03/22 [History] Primidone 50 MG [Mysoline 50Mg] 50 mg PO TID 06/03/22 [History] Ranolazine 500 MG [Ranexa 500 MG] 500 mg PO BID 06/03/22 [History] Saccharomyces Boulardii [Florastor] 250 mg PO BID 06/03/22 [History] azaTHIOprine [Azathioprine] 50 mg PO BID 06/03/22 [History] lisinopriL [Zestril] 2.5 mg PO DAILY 06/03/22 [History] Apixaban [Eliquis 5 mg Tablet] 5 mg PO BID 08/16/22 [History] Acetaminophen 325 mg [Tylenol 325 mg] 2 tab PO Q4HPRN PRN 10/06/22 [His tory] Albuterol Sulfate [Proventil Hfa] 2 puff IH Q6HPRN PRN 10/06/22 [History] Furosemide 40 mg [Lasix 40 MG] 40 mg PO DAILY 10/06/22 [History] Hydrocortisone [Proctocort] 28.35 gm RC Q12H PRN PRN 10/06/22 [History] Insulin Glargine,Hum.rec.anlog [Insulin Glargine] 42 units SQ HS 10/06/22 [History] Magnesium Hydroxide 30 ml [Milk of Magnesia 30 ml] 30 ml PO DAILY PRN 10/06/22 [History] Metformin HCl 500 mg [Glucophage 500 MG] 500 mg PO DAILY 10/06/22 [History] Potassium Chloride 10 meq PO DAILY 10/06/22 [History] Hx Tetanus, Diphtheria Vaccination/Date Given: No (unknown) Hx Influenza Vaccination/Date Given: No Hx Pneumococcal Vaccination/Date Given: No Travel Risk - International Travel Have you traveled outside of the country in past 3 weeks: No - Coronavirus Screening Are you exhibiting any of the following symptoms?: No Close contact with a COVID-19 positive Pt in past 14-21 Days: No - Vaccine Status Have you recieved a Covid-19 vaccination: No - Review of Systems Constitutional: No Symptoms Eyes: No Symptoms Ears, Nose, & Throat: No Symptoms Respiratory: Dyspnea Cardiac: Chest Pain (Mild substernal, central) Abdominal/Gastrointestinal: No Symptoms Genitourinary Symptoms: No Symptoms Musculoskeletal: No Symptoms Skin: No Symptoms Neurological: No Symptoms Psychological: No Symptoms Endocrine: No Symptoms Hematologic/Lymphatic: No Symptoms Immunological/Allergic: No Symptoms All Other Systems: Reviewed and Negative - Past Medical History Pertinent Past Medical History: Yes Neurological History: Migraines, Peripheral Neuropathy ENT History: Cataracts Cardiac History: Coronary Artery Disease, High Cholesterol, Hypertension, Myocardial Infarction (MT), Other Respiratory History: Asthma, Bronchitis, CHF, COPD, Sleep Apnea Endocrine Medical History: Diabetes Type II Musculoskeletal History: Arthritis, Degenerative Disk Disease, Fibromyalgia, Osteoarthritis GI Medical History: Crohns Disease, Diverticulitis, GERD, Irritable Bowel History: No Pertinent History Psycho-Social History: Anxiety, Depression Female Reproductive Disorders: No Pertinent History Other Medical History: HX UTI, HX Yeast Infection, Neuropathy, degenerative joint disease - Past Surgical History Past Surgical History: Yes Neuro Surgical History: No Pertinent History Cardiac: Cardiac Catheterization Respiratory: No Pertinent History Gastrointestinal: No Pertinent History Genitourinary: No Pertinent History Musculoskeletal: No Pertinent History Female Surgical History: Dilation & Curettage, Section, Tubal Ligation Other Surgical History: KIDNEY STONE REMOVAL, right 2nd toe amputated 2021. heart cath x3, no stents, clot removal rt thigh artery - Social History Smoking Status: Never smoker How long have you smoked: years Exposure to second hand smoke: No Alcohol Use: None Drug Use: none Patient Lives Alone: No Significant Family History: no pertinent family hx, diabetes, hypertension - Nursing Vital Signs Nursing Vital Signs: Initial Vital Signs Temperature 97.8 F 11/26/22 19:09 Pulse Rate 120 H 11/26/22 19:09 Respiratory Rate 30 H 11/26/22 19:09 Blood Pressure 165/104 11/26/22 19:09 O2 Sat by Pulse Oximetry 98 11/26/22 19:09 Pain Scale Pain Intensity 0 - Physical Exam General Appearance: no apparent distress, alert, anxiety, obese Eye Exam: PERRL/EOMI, eyes nml inspection Ears, Nose, Throat Exam: hearing grossly normal, normal ENT inspection, normal pharynx Neck Exam: normal inspection, non-tender, supple, full range of motion Respiratory Exam: normal breath sounds, lungs clear, airway intact, No chest tenderness, No respiratory distress Cardiovascular/Chest Exam: normal heart sounds Abdominal/Gastrointestinal Exam: soft, normal bowel sounds, No tenderness Rectal Exam: not done Extremity Exam: non-tender, normal range of motion, normal inspection Neurologic Exam: alert, oriented x 3, cooperative, supervisor II-XII nml as tested, normal mood/affect, nml cerebellar function, nml station & gait, sensation nml Skin Exam: normal color, warm, dry Lymphatic Exam: No adenopathy SpO2 Interpretation: normal, O2 applied O2 Delivery: Nasal Cannula (3 L oxygen nasal cannula) - Course Nursing assessment & vital signs reviewed: Yes EKG Interpreted by Me: RATE (78), Sinus Rhythm, NORMAL AXIS, NORMAL QRS, Other (Prolonged MD interval. Persistent LVH present. No acute ischemia present. I compared this twelve-lead EKG today to the 1 performed on 11/11/2022) Ordered Tests: Active Orders 24 hr Category Date Time Status EKG-ER Only STAT Care 11/26/22 19:45 Active IV Insertion STAT Care 11/26/22 19:45 Active Pulse Oximetry (ED) STAT Care 11/26/22 19:45 Active CHEST WITH CONTRAST [CT] Stat Exams 11/26/22 21:09 Taken Medication Summary Discontinued Medications Generic Name Dose Route Start Last Admin Trade Name Freq PRN Reason Stop Dose Admin Furosemide 40 mg 11/26/22 19:45 11/26/22 20:16 Furosemide 40 Mg/4 Ml Vial IV 11/26/22 19:46 40 mg STAT ONE Administration Furosemide Confirm 11/26/22 20:15 Furosemide 40 Mg/4 Ml Vial Administered 11/26/22 20:16 Dose 40 mg .ROUTE .STK-MED ONE - Progress Progress: improved Air Movement: good Progress Note: 11/26/22 21:58 CTA of chest shows no acute cardiopulmonary process. There is no evidence of pulmonary embolus. There is stable cardiomegaly present. 11/26/22 22:00 Medical decision making: This patient underwent a work-up at [facility] emergency department prior to her arrival to our emergency department. Patient left her oxygen in the car while she was transported to the emergency department. Initially, the patient had a low oxygen level but when we placed her nasal cannula oxygen at 3 L, her normal level, her oxygenation saturation level went up to 98 to 100%. Based on the patient's history, her current complaint, physical exam findings and review of the patient's chart from [facility] emergency department, I opted to perform a twelve-lead EKG, provide the patient with Lasix, and perform a CTA of the chest these studies and interventions were not performed at the [facility] emergency department. The CTA of the chest shows findings as stated above. Patient has no acute, admissible diagnoses. Therefore, patient be discharged to home with instructions to continue her medication as prescribed and continue her oxygen via nasal cannula at the 3 L level. She is to follow-up with her primary care physician next week. Her medical complexity is moderate. Blood Culture(s) Obtained: No Antibiotics given: No Counseled pt/family regarding: lab results, diagnosis, need for follow-up, rad results Medical Desision Making - External Record(s) Reviewed Records reviewed as a part of evaluation & management: Clinic ([facility] emergency department records were reviewed and part of the evaluation and management) - Discussion of managment Reviewed:: Test results (I discussed with the patient) Agreed on:: Treatment plan (I discussed with the patient), need for follow-up (I discussed with the patient) - Diagnostic Testing Diagnostic Testing: Diagnostic tests were ordered,analyzed, and reviewed by me and used in my medical decision making for this patient. Radiologic studies (if ordered) were read by me initially then discussed with the radiologist . - Risk of complications Low Risk: Low risk of morbidity from additional dx testing or treatment - Departure Departure Disposition: Home Clinical Impression: Non-cardiac chest pain, Shortness of breath Condition: Stable Critical Care Time: No Referrals: CALVIN HOLGUIN [Primary Care Provider] - Follow up/PCP as directed Additional Instructions: Continue your oxygen and your medication as prescribed. Follow-up with your primary care provider for further evaluation and management.
[2022-11-26] MEDS ORDERED: Lasix 40 MG/4 ML IV ONE (19:45)
[2022-11-26] MEDS ORDERED: Lasix 40 MG/4 ML ONE (20:15)
[2022-11-26 22:03] VITALS: BP 142/81; PULSE 95; O2SAT 99
--- NOTE | 2022-11-27 08:32 | XRAY ---
Indication: Left chest pain and short of breath. Elevated d-dimer. History CHF, COPD, and pulmonary embolus. Multiple contiguous axial images obtained through the chest using 80 cc Isovue 370 contrast and PE protocol. Comparison: October 06, 2022 Good opacification of the pulmonary arteries to include the lobar and segmental branches. Mild respiration artifact limits evaluation for pulmonary embolus. No obvious pulmonary embolus. Heart is enlarged. Aorta is normal in course and caliber without aneurysm/dissection. No pathologic mediastinal/hilar lymphadenopathy. Stable chronic right hemidiaphragm elevation with adjacent atelectasis. No suspicious pulmonary mass/nodule, infiltrate, effusion, or pneumothorax. Bony thorax intact again with minimal degenerative changes throughout the spine. Limited upper abdomen again demonstrate fatty hepatomegaly, tiny gallstones, and left renal cyst. Impression: 1. Continued negative pulmonary embolus. No new/acute cardiopulmonary abnormalities. 2. Again chronic findings including right hemidiaphragm elevation with adjacent atelectasis, degenerative spondylosis, fatty hepatomegaly, tiny gallstones, and left renal cyst.
== END 2022-11-26 22:17 | disposition home or self-care (01) ==
LOC: ED 18:55
DX: R07.89 Other chest pain (principal); R06.02 Shortness of breath; J44.9 Chronic obstructive pulmonary disease, unspecified; E78.5 Hyperlipidemia, unspecified; I10 Essential (primary) hypertension; E11.42 Type 2 diabetes mellitus with diabetic polyneuropathy; E11.65 Type 2 diabetes mellitus with hyperglycemia; Z99.81 Dependence on supplemental oxygen; Z79.4 Long term (current) use of insulin; Z79.84 Long term (current) use of oral hypoglycemic drugs; Z79.899 Other long term (current) drug therapy; Z28.310 Unvaccinated for COVID-19
CPT/HCPCS: 71260; 93005; 94760; 96374; 99284; J1940

== ENCOUNTER 2022-12-11 16:18 | Emergency (ER) | payer MEDICARE ==
[2022-12-11 16:29] VITALS: O2SAT 100
--- NOTE | 2022-12-11 17:17 | XRAY ---
Indication: Dyspnea. Comparison: November 11, 2022. Portable chest remains underinflated with minimal bibasilar atelectasis. Heart remains borderline enlarged. No new/acute cardiopulmonary abnormalities compared to CT PE exam November 26, 2022.
--- NOTE | 2022-12-11 17:18 | ERPHSYRPT ---
- History of Present Illness Source: patient Exam Limitations: no limitations Patient Subjective Stated Complaint: PT HERE FOR INCREASE SOB FOR A COUPLE DAYS WITH A COUGH, SHE STATES SHE THINKS HER SWELLING IS WORSE Triage Nursing Assessment: PT ALERT, RESP LABORED WITH MOVEMENT, NO COUGH AT PRESENT TIME, EDEMA TO LOWER LEGS AND FEET, WEARS HOME O2 PER NC Physician History: 62 yo Wf who is 3L O2 dep at home presents w dyspnea x1 day. Pt states that she has had a cough x 2 days w coryza. She denies fever/chest pain/N/V/D/melena/hematochezia. Pt is morbidly obese and sleeps in a recliner in her son's house. dyspnea worse w exertion. She has a h/o Afib and is on Eliquis. Timing/Duration: day(s) (1 day) Activities at Onset: rest Severity of Dyspnea-Max: moderate Severity of Dyspnea-Current: mild Possible Cause: frequent episodes Modifying Factors: Improves With: activity, coughing Associated Symptoms: cough, edema, weakness, ankle swelling, No chest pain/disco mfort Allergies/Adverse Reactions: cyclobenzaprine HCl [From Flexeril] Allergy (Mild, Verified 12/11/22 16:20) Rash metoclopramide [From Reglan] Allergy (Mild, Verified 12/11/22 16:20) Rash Sulfa (Sulfonamide Antibiotics) [Sulfa(Sulfonamide Antibiotics)] Allergy (Mild, Verified 12/11/22 16:20) Rash adhesive Allergy (Verified 12/11/22 16:20) Rash nalbuphine HCl [From Nubain] Adverse Reaction (Intermediate, Verified 12/11/22 16:20) Stomach Cramps patient states she had stomach "burning" and that her legs felt like "rubber bands" ciprofloxacin [From Cipro] Adverse Reaction (Mild, Verified 12/11/22 16:20) Rash meperidine HCl [From Demerol] Adverse Reaction (Mild, Verified 12/11/22 16:20) Vomiting Home Medications: Duloxetine HCl 60 mg PO DAILY 03/17/16 [History] Mesalamine [Pentasa] 500 mg PO BID 03/17/16 [History] Omeprazole 20 MG [Prilosec 20 mg] 20 mg PO BID 03/17/16 [History] Atorvastatin Calcium 10 mg PO DAILY 01/25/18 [History] Meclizine HCl 25 mg [Antivert 25 mg] 25 mg PO Q8H PRN PRN 12/05/19 [History] Isosorbide Mononitrate 60 mg [Imdur 60MG] 60 mg PO DAILY 12/31/20 [History] Levothyroxine Sodium 25 Mcg [Synthroid 25 Mcg] 25 mcg PO DAILY 12/31/20 [History] Aripiprazole [Abilify] 2 mg PO DAILY 06/03/22 [History] Loperamide HCl [Loperamide] 4 mg PO Q12H PRN PRN 06/03/22 [History] Magnesium Oxide 400 mg [Mag-Ox 400] 800 mg PO DAILY 06/03/22 [History] Nitroglycerin 0.4 mg Tablet [Nitrostat 0.4 MG Tablet] 0.4 mg SL Q5MIN PRN MR X 3 PRN 06/03/22 [History] Pravastatin Sodium 80 mg PO DAILY 06/03/22 [History] Primidone 50 MG [Mysoline 50Mg] 50 mg PO TID 06/03/22 [History] Ranolazine 500 MG [Ranexa 500 MG] 500 mg PO BID 06/03/22 [History] Saccharomyces Boulardii [Florastor] 250 mg PO BID 06/03/22 [History] azaTHIOprine [Azathioprine] 50 mg PO BID 06/03/22 [History] lisinopriL [Zestril] 2.5 mg PO DAILY 06/03/22 [History] Apixaban [Eliquis 5 mg Tablet] 5 mg PO BID 08/16/22 [History] Acetaminophen 325 mg [Tylenol 325 mg] 2 tab PO Q4HPRN PRN 10/06/22 [History] Albuterol Sulfate [Proventil Hfa] 2 puff IH Q6HPRN PRN 10/06/22 [History] Furosemide 40 mg [Lasix 40 MG] 40 mg PO DAILY 10/06/22 [History] Hydrocortisone [Proctocort] 28.35 gm RC Q12H PRN PRN 10/06/22 [History] Insulin Glargine,Hum.rec.anlog [Insulin Glargine] 42 units SQ HS 10/06/22 [History] Magnesium Hydroxide 30 ml [Milk of Magnesia 30 ml] 30 ml PO DAILY PRN 10/06/22 [History] Metformin HCl 500 mg [Glucophage 500 MG] 500 mg PO DAILY 10/06/22 [History] Potassium Chloride 10 meq PO DAILY 10/06/22 [History] Hx Tetanus, Diphtheria Vaccination/Date Given: No (unknown) Hx Influenza Vaccination/Date Given: No Hx Pneumococcal Vaccination/Date Given: No Immunizations Up to Date: Yes Travel Risk - International Travel Have you traveled outside of the country in past 3 weeks: No - Coronavirus Screening Are you exhibiting any of the following symptoms?: No - Vaccine Status Have you recieved a Covid-19 vaccination: No - Review of Systems Constitutional: No Symptoms, Fatigue, Malaise Eyes: No Symptoms Ears, Nose, & Throat: No Symptoms, Nose Congestion, Nose Discharge Respiratory: No Symptoms, Cough, Dyspnea, Dyspnea on Exertion ([place]) Cardiac: No Symptoms Abdominal/Gastrointestinal: No Symptoms Genitourinary Symptoms: No Symptoms Musculoskeletal: No Symptoms Skin: No Symptoms Neurological: No Symptoms Psychological: No Symptoms Endocrine: No Symptoms Hematologic/Lymphatic: No Symptoms Immunological/Allergic: No Symptoms - Past Medical History Pertinent Past Medical History: Yes Neurological History: Migraines, Peripheral Neuropathy ENT History: Cataracts Cardiac History: Coronary Artery Disease, High Cholesterol, Hypertension, Myocardial Infarction ([place]), Other Respiratory History: Asthma, Bronchitis, CHF, COPD, Sleep Apnea Endocrine Medical History: Diabetes Type II Musculoskeletal History: Arthritis, Degenerative Disk Disease, Fibromyalgia, Osteoarthritis GI Medical History: Crohns Disease, Diverticulitis, GERD, Irritable Bowel History: No Pertinent History Psycho-Social History: Anxiety, Depression Female Reproductive Disorders: No Pertinent History Other Medical History: HX UTI, HX Yeast Infection, Neuropathy, degenerative j oint disease - Past Surgical History Past Surgical History: Yes Neuro Surgical History: No Pertinent History Cardiac: Cardiac Catheterization Respiratory: No Pertinent History Gastrointestinal: No Pertinent History Genitourinary: No Pertinent History Musculoskeletal: No Pertinent History Female Surgical History: Dilation & Curettage, Section, Tubal Ligation Other Surgical History: KIDNEY STONE REMOVAL, right 2nd toe amputated 2021. heart cath x3, no stents, clot removal rt thigh artery - Social History Smoking Status: Never smoker How long have you smoked: years Exposure to second hand smoke: No Alcohol Use: None Drug Use: none Patient Lives Alone: No Significant Family History: no pertinent family hx, diabetes, hypertension - Nursing Vital Signs Nursing Vital Signs: Initial Vital Signs Temperature 97.0 F 12/11/22 16:26 Pulse Rate 106 H 12/11/22 16:26 Respiratory Rate 26 H 12/11/22 16:26 Blood Pressure 153/110 12/11/22 16:26 O2 Sat by Pulse Oximetry 99 12/11/22 16:26 Pain Scale Pain Intensity 4 Tachy/Hypertensive/tachypneic - Physical Exam General Appearance: no apparent distress Eye Exam: PERRL/EOMI, eyes nml inspection Ears, Nose, Throat Exam: hearing grossly normal, normal ENT inspection, normal pharynx Neck Exam: normal inspection, non-tender, supple, full range of motion, No Brudzinski, No Kernig's, No meningismus Respiratory Exam: diminished breath sounds (R base), crackles/rales (Rales L base) Cardiovascular/Chest Exam: irregular (Ir-Ir(Afib)) Abdominal/Gastrointestinal Exam: soft, normal bowel sounds, No tenderness Extremity Exam: non-tender, pedal edema (3+B), No calf tenderness Neurologic Exam: alert, oriented x 3, cooperative, satin finisher II-XII nml as tested, normal mood/affect, sensation nml Skin Exam: normal color, warm, dry Lymphatic Exam: No adenopathy SpO2 Interpretation: normal SpO2: 100 O2 Delivery: Nasal Cannula (3L NC) - Course Nursing assessment & vital signs reviewed: Yes EKG Interpreted by Me: RATE (Afib/Rate 111/Old inferior FL/Old anterior FL/ Normal QT-QTc/Normal Twaves/No acute ST segment changes) - Radiology Exams Chest X-ray Interpretation: Reviewed by me, Discussed w/ radiologist (Cardiomegaly/atelectsis) - CT Exams Chest CT Interpretation: Discussed w/radiologist (CT of chest nothing acute) Ordered Tests: Active Orders 24 hr Category Date Time Status EKG-ER Only STAT Care 12/11/22 16:25 Completed CHEST 1 VIEW (PORTABLE) Stat Exams 12/11/22 16:25 Completed CHEST WITHOUT CONTRAST [CT] Stat Exams 12/11/22 18:52 Completed CBC W DIFF Stat Lab 12/11/22 18:10 Completed CMP Stat Lab 12/11/22 18:10 Completed Lactic Acid Stat Lab 12/11/22 17:25 Completed NT PRO BNPII Stat Lab 12/11/22 18:10 Completed PROTIME WITH INR Stat Lab 12/11/22 18:10 Completed PTT Stat Lab 12/11/22 18:10 Completed TROPONIN Q4H Lab 12/11/22 18:10 Completed Lab/Rad Data: Laboratory Result Diagrams 12/11/22 18:10 12/11/22 18:10 Laboratory Results 12/11/22 12/11/22 12/11/22 Range/Units 18:10 18:10 18:10 WBC (4.0-10.5) x10^3/uL RBC (4.1-5.4) x10^6/uL Hgb (12.0-16.0) g/dL Hct (35-47) % MCV (78-100) fL MCH (26-32) pg MCHC (32-36) g/dL RDW (11.5-14.0) % Plt Count (150-450) x10^3/uL MPV (7.5-11.0) fL Gran % (36.0-66.0) % Immature Gran % (Auto) (0.00-0.4) % Nucleat RBC Rel Count (0.00-0.1) % Eos # (Auto) (0-0.5) x10^3/uL Immature Gran # (Auto) (0.00-0.03) x10^3u/L Absolute Lymphs (auto) (1.0-4.6) x10^3/uL Absolute Monos (auto) (0.0-1.3) x10^3/uL Absolute Nucleated RBC (0.00-0.01) x10^3u/L Lymphocytes % (24.0-44.0) % Monocytes % (0.0-12.0) % Eosinophils % (0.00-5.0) % Basophils % (0.0-0.4) % Absolute Granulocytes (1.4-6.9) x10^3/uL Basophils # (0-0.4) x10^3/uL PT 10.6 (9.4-12.5) SECONDS INR 0.97 (0.8-3.0) APTT < 20.0 L (25.1-36.5) SECONDS Sodium (137-145) mmol/L Potassium (3.5-5.1) mmol/L Chloride (98-107) mmol/L Carbon Dioxide (22-30) mmol/L Anion Gap (5-15) MEQ/L BUN (7-17) mg/dL Creatinine (0.52-1.04) mg/dL Estimated GFR ML/MIN Glucose (74-106) mg/dL Lactic Acid (0.4-2.0) Calcium (8.4-10.2) mg/dL Total Bilirubin (0.2-1.3) mg/dL AST (14-36) U/L ALT (0-35) U/L Alkaline Phosphatase (38-126) U/L Troponin I 0.013 (0.000-0.034) ng/mL NT-Pro-B Natriuret Pep 591 (<300) pg/mL Serum Total Protein (6.3-8.2) g/dL Albumin (3.5-5.0) g/dL Influenza Type A Ag (NEGATIVE) Influenza Type B Ag (NEGATIVE) RSV (PCR) (Negative) SARS-CoV-2 (PCR) (NEGATIVE) Slides for Path Review 12/11/22 12/11/22 12/11/22 Range/Units 18:10 18:10 17:25 WBC 6.2 (4.0-10.5) x10^3/uL RBC 4.05 L (4.1-5.4) x10^6/uL Hgb 9.3 L (12.0-16.0) g/dL Hct 31.9 L (35-47) % MCV 78.8 (78-100) fL MCH 23.0 L (26-32) pg MCHC 29.2 L (32-36) g/dL RDW 18.9 H (11.5-14.0) % Plt Count 221 (150-450) x10^3/uL MPV 11.5 H (7.5-11.0) fL Gran % 73.5 H (36.0-66.0) % Immature Gran % (Auto) 0.3 (0.00-0.4) % Nucleat RBC Rel Count 0.0 (0.00-0.1) % Eos # (Auto) 0.35 (0-0.5) x10^3/uL Immature Gran # (Auto) 0.02 (0.00-0.03) x10^3u/L Absolute Lymphs (auto) 0.84 L (1.0-4.6) x10^3/uL Absolute Monos (auto) 0.41 (0.0-1.3) x10^3/uL Absolute Nucleated RBC 0.00 (0.00-0.01) x10^3u/L Lymphocytes % 13.5 L (24.0-44.0) % Monocytes % 6.6 (0.0-12.0) % Eosinophils % 5.6 H (0.00-5.0) % Basophils % 0.5 (0.0-0.4) % Absolute Granulocytes 4.55 (1.4-6.9) x10^3/uL Basophils # 0.03 (0-0.4) x10^3/uL PT (9.4-12.5) SECONDS INR (0.8-3.0) APTT (25.1-36.5) SECONDS Sodium 134 L (137-145) mmol/L Potassium 4.1 (3.5-5.1) mmol/L Chloride 99 (98-107) mmol/L Carbon Dioxide 27 (22-30) mmol/L Anion Gap 11.8 (5-15) MEQ/L BUN 13 (7-17) mg/dL Creatinine 0.44 L (0.52-1.04) mg/dL Estimated GFR > 60.0 ML/MIN Glucose 351 H (74-106) mg/dL Lactic Acid 1.5 (0.4-2.0) Calcium 8.6 (8.4-10.2) mg/dL Total Bilirubin 0.40 (0.2-1.3) mg/dL AST 21 (14-36) U/L ALT 18 (0-35) U/L Alkaline Phosphatase 207 H (38-126) U/L Troponin I (0.000-0.034) ng/mL NT-Pro-B Natriuret Pep (<300) pg/mL Serum Total Protein 6.9 (6.3-8.2) g/dL Albumin 3.5 (3.5-5.0) g/dL Influenza Type A Ag (NEGATIVE) Influenza Type B Ag (NEGATIVE) RSV (PCR) (Negative) SARS-CoV-2 (PCR) (NEGATIVE) Slides for Path Review YES 12/11/22 Range/Units 17:00 WBC (4.0-10.5) x10^3/uL RBC (4.1-5.4) x10^6/uL Hgb (12.0-16.0) g/dL Hct (35-47) % MCV (78-100) fL MCH (26-32) pg MCHC (32-36) g/dL RDW (11.5-14.0) % Plt Count (150-450) x10^3/uL MPV (7.5-11.0) fL Gran % (36.0-66.0) % Immature Gran % (Auto) (0.00-0.4) % Nucleat RBC Rel Count (0.00-0.1) % Eos # (Auto) (0-0.5) x10^3/uL Immature Gran # (Auto) (0.00-0.03) x10^3u/L Absolute Lymphs (auto) (1.0-4.6) x10^3/uL Absolute Monos (auto) (0.0-1.3) x10^3/uL Absolute Nucleated RBC (0.00-0.01) x10^3u/L Lymphocytes % (24.0-44.0) % Monocytes % (0.0-12.0) % Eosinophils % (0.00-5.0) % Basophils % (0.0-0.4) % Absolute Granulocytes (1.4-6.9) x10^3/uL Basophils # (0-0.4) x10^3/uL PT (9.4-12.5) SECONDS INR (0.8-3.0) APTT (25.1-36.5) SECONDS Sodium (137-145) mmol/L Potassium (3.5-5.1) mmol/L Chloride (98-107) mmol/L Carbon Dioxide (22-30) mmol/L Anion Gap (5-15) MEQ/L BUN (7-17) mg/dL Creatinine (0.52-1.04) mg/dL Estimated GFR ML/MIN Glucose (74-106) mg/dL Lactic Acid (0.4-2.0) Calcium (8.4-10.2) mg/dL Total Bilirubin (0.2-1.3) mg/dL AST (14-36) U/L ALT (0-35) U/L Alkaline Phosphatase (38-126) U/L Troponin I (0.000-0.034) ng/mL NT-Pro-B Natriuret Pep (<300) pg/mL Serum Total Protein (6.3-8.2) g/dL Albumin (3.5-5.0) g/dL Influenza Type A Ag NEGATIVE (NEGATIVE) Influenza Type B Ag NEGATIVE (NEGATIVE) RSV (PCR) NEGATIVE (Negative) SARS-CoV-2 (PCR) NEGATIVE (NEGATIVE) Slides for Path Review - Progress Progress: improved Progress Note: 12/11/22 23:12 Nursing note and vital signs reviewed No food or housing insecurities noted Lab results/CXR/CT chest results reviewed and shared w pt Pt is a full code Pt w obesity/hypoventilation syndrome/COPD appears to be at baseline w Sats in mid-high 90's o 3L O2 NC. There is no evidence of FL/Acute CHF/pneumonia. She is to be discharged home w PCP follow up. Pt has Afib which is rate controlled and is on Eliquis for embolic risk 12/11/22 23:13 12/11/22 23:16 Counseled pt/family regarding: lab results, diagnosis, need for follow-up, rad results - Departure Departure Disposition: Home Clinical Impression: Dyspnea Condition: Stable Critical Care Time: No Referrals: CALVIN PALOMINO [Primary Care Provider] - Follow up/PCP as directed Instructions: Shortness of Breath (Dyspnea) (DC) Additional Instructions: Follow up with your family MD on Wednesday Continue to use your oxygen Return to ER for increasing shortness of breath or temperature greater than 100.5
[2022-12-11 17:52] LABS: INFLUENZA A NEGATIVE (NEGATIVE); INFLUENZA B NEGATIVE (NEGATIVE); RESPIRATORY SYNCTIAL VIRUS NEGATIVE (Negative); SARS-CoV-2 Xpert Express NEGATIVE (NEGATIVE)
[2022-12-11 18:18] LABS: Absolute Neutrophil Ct (ANC) 4.55 x10^3/uL (1.4-6.9); BASOPHIL % 0.5 % (0.0-0.4); Basophil (Absolute #) 0.03 x10^3/uL (0-0.4); Eosinophil % 5.6 % (0.00-5.0); Eosinophil (Absolute #) 0.35 x10^3/uL (0-0.5); Hematocrit 31.9 % (35-47); Hemoglobin 9.3 g/dL (12.0-16.0); IMMATURE GRAN # 0.02 x10^3u/L (0.00-0.03); IMMATURE GRAN % 0.3 % (0.00-0.4); Lymphocyte (Absolute #) 0.84 x10^3/uL (1.0-4.6); Lymphocytes % 13.5 % (24.0-44.0); Mean Cell Volume 78.8 fL (78-100); Mean Corpuscular Hgb Concent. 29.2 g/dL (32-36); Mean Platelet Volume 11.5 fL (7.5-11.0); Monocyte (Absolute #) 0.41 x10^3/uL (0.0-1.3); Monocytes % 6.6 % (0.0-12.0); Neutrophil % 73.5 % (36.0-66.0); Platelet Count 221 x10^3/uL (150-450); Red Blood Count 4.05 x10^6/uL (4.1-5.4); Red Cell Distribution Width 18.9 % (11.5-14.0); White Blood Count 6.2 x10^3/uL (4.0-10.5)
[2022-12-11 18:35] LABS: INR 0.97 (0.8-3.0); PROTIME 10.6 SECONDS (9.4-12.5); PTT < 20.0 SECONDS (25.1-36.5)
[2022-12-11 18:36] LABS: ALBUMIN 3.5 g/dL (3.5-5.0); ALKALINE PHOSPHATASE 207 U/L (38-126); ANION GAP 11.8 MEQ/L (5-15); BLOOD UREA NITROGEN 13 mg/dL (7-17); CHLORIDE 99 mmol/L (98-107); Calcium 8.6 mg/dL (8.4-10.2); Carbon Dioxide 27 mmol/L (22-30); Creatinine 1 0.44 mg/dL (0.52-1.04); EST GLOMERULAR FILTRATION RATE > 60.0 ML/MIN; Glucose 351 mg/dL (74-106); Potassium 4.1 mmol/L (3.5-5.1); SGOT/AST 21 U/L (14-36); SGPT/ALT 18 U/L (0-35); SODIUM 134 mmol/L (137-145); Total Protein 6.9 g/dL (6.3-8.2)
[2022-12-11 19:10] LABS: Slide Review 1 YES
--- NOTE | 2022-12-11 20:01 | XRAY ---
Indication: Short of breath 2 days. COPD. Multiple contiguous axial images obtained through the chest without contrast. Comparison: November 26, 2022 Stable right hemidiaphragm elevation and bibasilar subsegmental atelectasis. No suspicious pulmonary mass/nodule, infiltrate, effusion, or pneumothorax. Heart remains borderline enlarged. Aorta is normal in course and caliber. No pathologic mediastinal lymphadenopathy. Bony thorax intact again with minimal degenerative changes throughout the spine. Limited upper abdomen again demonstrates fatty hepatomegaly, tiny gallstones, and left renal cyst. Impression: Stable CT chest without contrast exam. Chronic findings including right hemidiaphragm elevation, bibasilar atelectasis, degenerative spondylosis, fatty hepatomegaly, tiny gallstones, and left renal cyst. No new/acute findings.
[2022-12-11 20:12] VITALS: BP 150/83; PULSE 99
== END 2022-12-11 21:00 | disposition home or self-care (01) ==
LOC: ED 16:18
DX: R06.02 Shortness of breath (principal); R05.1 Acute cough; R09.81 Nasal congestion; J44.9 Chronic obstructive pulmonary disease, unspecified; E78.5 Hyperlipidemia, unspecified; I10 Essential (primary) hypertension; E11.42 Type 2 diabetes mellitus with diabetic polyneuropathy; I48.91 Unspecified atrial fibrillation; Z99.81 Dependence on supplemental oxygen; Z79.01 Long term (current) use of anticoagulants; Z79.4 Long term (current) use of insulin; Z79.84 Long term (current) use of oral hypoglycemic drugs; Z79.899 Other long term (current) drug therapy; Z28.310 Unvaccinated for COVID-19
CPT/HCPCS: 0241U; 36415; 71045; 71250; 80053; 83605; 83880; 84484; 85025; 85610; 85730; 93005; 99284; 99291

== ENCOUNTER 2023-01-02 11:28 | Emergency (ER) | payer MEDICARE ==
[2023-01-02] MEDS ORDERED: Adacel Vial IM ONE ×2 (11:43→11:45)
[2023-01-02 11:49] VITALS: O2SAT 100
--- NOTE | 2023-01-02 11:49 | ERPHSYRPT ---
- History of Present Illness Time Seen by Provider: 01/02/23 11:44 Source: patient Exam Limitations: no limitations Physician History: Patient is a 62-year-old white female who is a frequent visitor to the ER for various medical problems. She presents today with a complaint of mice bites to her right great and third toe. The second toe on the right foot has been amputated in the past. She reports that the Miles problem has been present for 1 month at the house where she is staying. She has been getting bitten on and off over the past month. She states she needs a tetanus shot. Timing/Duration: week(s) (4) Quality: painful Severity: moderate Location: feet (Right foot) Possible Causes: other (Mouse bites) Allergies/Adverse Reactions: cyclobenzaprine HCl [From Flexeril] Allergy (Mild, Verified 12/11/22 16:20) Rash metoclopramide [From Reglan] Allergy (Mild, Verified 12/11/22 16:20) Rash Sulfa (Sulfonamide Antibiotics) [Sulfa(Sulfonamide Antibiotics)] Allergy (Mild, Verified 12/11/22 16:20) Rash adhesive Allergy (Verified 12/11/22 16:20) Rash nalbuphine HCl [From Nubain] Adverse Reaction (Intermediate, Verified 12/11/22 16:20) Stomach Cramps patient states she had stomach "burning" and that her legs felt like "rubber bands" ciprofloxacin [From Cipro] Adverse Reaction (Mild, Verified 12/11/22 16:20) Rash meperidine HCl [From Demerol] Adverse Reaction (Mild, Verified 12/11/22 16:20) Vomiting Home Medications: Duloxetine HCl 60 mg PO DAILY 03/17/16 [History] Mesalamine [Pentasa] 500 mg PO BID 03/17/16 [History] Omeprazole 20 MG [Prilosec 20 mg] 20 mg PO BID 03/17/16 [History] Atorvastatin Calcium 10 mg PO DAILY 01/25/18 [History] Meclizine HCl 25 mg [Antivert 25 mg] 25 mg PO Q8H PRN PRN 12/05/19 [History] Isosorbide Mononitrate 60 mg [Imdur 60MG] 60 mg PO DAILY 12/31/20 [History] Levothyroxine Sodium 25 Mcg [Synthroid 25 Mcg] 25 mcg PO DAILY 12/31/20 [History] Aripiprazole [Abilify] 2 mg PO DAILY 06/03/22 [History] Loperamide HCl [Loperamide] 4 mg PO Q12H PRN PRN 06/03/22 [History] Magnesium Oxide 400 mg [Mag-Ox 400] 800 mg PO DAILY 06/03/22 [History] Nitroglycerin 0.4 mg Tablet [Nitrostat 0.4 MG Tablet] 0.4 mg SL Q5MIN PRN MR X 3 PRN 06/03/22 [History] Pravastatin Sodium 80 mg PO DAILY 06/03/22 [History] Primidone 50 MG [Mysoline 50Mg] 50 mg PO TID 06/03/22 [History] Ranolazine 500 MG [Ranexa 500 MG] 500 mg PO BID 06/03/22 [History] Saccharomyces Boulardii [Florastor] 250 mg PO BID 06/03/22 [History] azaTHIOprine [Azathioprine] 50 mg PO BID 06/03/22 [History] lisinopriL [Zestril] 2.5 mg PO DAILY 06/03/22 [History] Apixaban [Eliquis 5 mg Tablet] 5 mg PO BID 08/16/22 [History] Acetaminophen 325 mg [Tylenol 325 mg] 2 tab PO Q4HPRN PRN 10/06/22 [History] Albuterol Sulfate [Proventil Hfa] 2 puff IH Q6HPRN PRN 10/06/22 [History] Furosemide 40 mg [Lasix 40 MG] 40 mg PO DAILY 10/06/22 [History] Hydrocortisone [Proctocort] 28.35 gm RC Q12H PRN PRN 10/06/22 [History] Insulin Glargine,Hum.rec.anlog [Insulin Glargine] 42 units SQ HS 10/06/22 [History] Magnesium Hydroxide 30 ml [Milk of Magnesia 30 ml] 30 ml PO DAILY PRN 10/06/22 [History] Metformin HCl 500 mg [Glucophage 500 MG] 500 mg PO DAILY 10/06/22 [History] Potassium Chloride 10 meq PO DAILY 10/06/22 [History] Hx Tetanus, Diphtheria Vaccination/Date Given: No (unknown) Hx Influenza Vaccination/Date Given: No Hx Pneumococcal Vaccination/Date Given: No Travel Risk - Vaccine Status Have you recieved a Covid-19 vaccination: No - Review of Systems Constitutional: No Fever, No Chills Eyes: No Symptoms Ears, Nose, & Throat: No Symptoms Respiratory: No Cough, No Dyspnea Cardiac: No Chest Pain, No Edema, No Syncope Abdominal/Gastrointestinal: No Abdominal Pain, No Nausea, No Vomiting, No Diarrhea Genitourinary Symptoms: No Dysuria Musculoskeletal: No Back Pain, No Neck Pain Skin: Other (Bites to the right first and third toe no active bleeding.), No Rash Neurological: No Dizziness, No Focal Weakness, No Sensory Changes Psychological: No Symptoms Endocrine: No Symptoms All Other Systems: Reviewed and Negative - Past Medical History Pertinent Past Medical History: Yes Neurological History: Migraines, Peripheral Neuropathy ENT History: Cataracts Cardiac History: Coronary Artery Disease, High Cholesterol, Hypertension, Myocardial Infarction ([place]), Other Respiratory History: Asthma, Bronchitis, CHF, COPD, Sleep Apnea Endocrine Medical History: Diabetes Type II Musculoskeletal History: Arthritis, Degenerative Disk Disease, Fibromyalgia, Osteoarthritis GI Medical History: Crohns Disease, Diverticulitis, GERD, Irritable Bowel History: No Pertinent History Psycho-Social History: Anxiety, Depression Female Reproductive Disorders: No Pertinent History Other Medical History: HX UTI, HX Yeast Infection, Neuropathy, degenerative joint disease - Past Surgical History Past Surgical History: Yes Neuro Surgical History: No Pertinent History Cardiac: Cardiac Catheterization Respiratory: No Pertinent History Gastrointestinal: No Pertinent History Genitourinary: No Pertinent History Musculoskeletal: No Pertinent History Female Surgical History: Dilation & Curettage, Section, Tubal Ligation Other Surgical History: KIDNEY STONE REMOVAL, right 2nd toe amputated 2021. heart cath x3, no stents, clot removal rt thigh artery - Social History Smoking Status: Never smoker How long have you smoked: years Exposure to second hand smoke: No Alcohol Use: None Drug Use: none Patient Lives Alone: No Significant Family History: no pertinent family hx, diabetes, hypertension - Physical Exam General Appearance: mild distress, alert Eye Exam: PERRL/EOMI, eyes nml inspection Ears, Nose, Throat Exam: normal ENT inspection, pharynx normal, moist mucous membranes Neck Exam: normal inspection, non-tender, supple, full range of motion Respiratory Exam: normal breath sounds, lungs clear, No respiratory distress Cardiovascular Exam: regular rate/rhythm, normal heart sounds Gastrointestinal/Abdomen Exam: soft, mass, No tenderness Back Exam: normal inspection, normal range of motion, No CVA tenderness, No vertebral tenderness Extremity Exam: normal inspection, normal range of motion, other (Right foot shows multiple mouse bites to the great toe and the third toe the second toe on the right foot has been amputated previously.) Neurologic Exam: alert, oriented x 3, cooperative, normal mood/affect, sensation nml, No motor deficits Skin Exam: normal color, warm, dry SpO2 Interpretation: O2 applied SpO2: 100 O2 Delivery: Nasal Cannula - Course Nursing assessment & vital signs reviewed: Yes Ordered Tests: Medication Summary Generic Name Dose Route Start Last Admin Trade Name Freq PRN Reason Stop Dose Admin Diphtheria/Tetanus/Acell Pertussis 0.5 ml 01/02/23 11:43 Tdap --Diph,Pertuss(Acell),Tet Vac/Pf 0.5 Ml Vial IM 01/02/23 11:44 .ONCE ONE - Progress Progress: unchanged Progress Note: 01/02/23 11:49 Patient's foot was cleaned. Bacitracin was applied and a dressing as well.Patient was not given rabies prophylaxis secondary to this being a small rodent words and not recommended. 01/02/23 11:51 Medical Desision Making - Social Determinants of Health Pt's dx & treatment plan are significantly limited by SDOH: Unemployed, housing insecurity Limited access to: transportation - Risk of complications The pt has a mod risk of morbidity or mortality based on: Need for prescription drug management - Departure Departure Disposition: Home Clinical Impression: Bitten by mouse Condition: Stable Critical Care Time: No Referrals: CALVIN PALOMINO [Primary Care Provider] - Follow up/PCP as directed Prescriptions: clindamycin HCL [Cleocin HCl] 300 mg PO TID 7 Days #21 cap
[2023-01-02] MEDS ORDERED: BACIGUENT PACKET TP ONE (11:54)
[2023-01-02 11:57] VITALS: BP 190/90; PULSE 66
[2023-01-02] MEDS ORDERED: BACIGUENT PACKET ONE (12:03)
== END 2023-01-02 12:13 | disposition home or self-care (01) ==
LOC: ED 11:28
DX: S90.471A Other superficial bite of right great toe, initial encounter (principal); S90.474A Other superficial bite of right lesser toe(s), initial encounter; W53.01XA Bitten by mouse, initial encounter; E78.5 Hyperlipidemia, unspecified; I10 Essential (primary) hypertension; E11.42 Type 2 diabetes mellitus with diabetic polyneuropathy; Z79.01 Long term (current) use of anticoagulants; Z79.4 Long term (current) use of insulin; Z79.84 Long term (current) use of oral hypoglycemic drugs; Z79.899 Other long term (current) drug therapy; Z28.310 Unvaccinated for COVID-19; Z59.1 Inadequate housing; Z56.0 Unemployment, unspecified; Z59.82 Transportation insecurity
CPT/HCPCS: 90471; 90715; 99282; A9270-GY

== ENCOUNTER 2023-01-29 19:43 | Emergency (ER) | payer MEDICARE ==
--- NOTE | 2023-01-29 19:46 | ERPHSYRPT ---
- History of Present Illness Time Seen by Provider: 01/29/23 19:46 Historian: patient Exam Limitations: no limitations Physician History: Pt c/o chest pain; a few episodes during last few weeks. Pain located on center. + radiation. Described as pressure. Lasts for a few minutes. Both at rest and on exertion. Endorses SOB, heartburn and emotional stressors. Denies palpitations. Timing/Duration: today Activities at Onset: rest Quality: dullness, pressure, sharpness Location: central Chest Pain Radiation: arm, back Severity of Pain-Max: severe Severity of Pain-Current: moderate Modifying Factors: Improves With: rest. Worsens With: exertion, lying down, movement Associated Symptoms: shortness of breath, edema, back pain, No nausea, No vo miting, No abdominal pain, No cough, No fever Prior Chest Pain/Cardiac Workup: cardiac cath, echocardiography, heart attack Nitro Today/Relief: provided by ED Aspirin Treatment Today: 81 mg x 4, provided by ED Allergies/Adverse Reactions: cyclobenzaprine HCl [From Flexeril] Allergy (Mild, Verified 01/29/23 20:00) Rash metoclopramide [From Reglan] Allergy (Mild, Verified 01/29/23 20:00) Rash Sulfa (Sulfonamide Antibiotics) [Sulfa(Sulfonamide Antibiotics)] Allergy (Mild, Verified 01/29/23 20:00) Rash adhesive Allergy (Verified 01/29/23 20:00) Rash nalbuphine HCl [From Nubain] Adverse Reaction (Intermediate, Verified 01/29/23 20:00) Stomach Cramps patient states she had stomach "burning" and that her legs felt like "rubber bands" ciprofloxacin [From Cipro] Adverse Reaction (Mild, Verified 01/29/23 20:00) Rash meperidine HCl [From Demerol] Adverse Reaction (Mild, Verified 01/29/23 20:00) Vomiting Home Medications: Duloxetine HCl 60 mg PO DAILY 03/17/16 [History] Mesalamine [Pentasa] 500 mg PO BID 03/17/16 [History] Omeprazole 20 MG [Prilosec 20 mg] 20 mg PO BID 03/17/16 [History] Atorvastatin Calcium 10 mg PO DAILY 01/25/18 [History] Meclizine HCl 25 mg [Antivert 25 mg] 25 mg PO Q8H PRN PRN 12/05/19 [History] Isosorbide Mononitrate 60 mg [Imdur 60MG] 120 mg PO DAILY 12/31/20 [History] Levothyroxine Sodium 25 Mcg [Synthroid 25 Mcg] 25 mcg PO DAILY 12/31/20 [History] Aripiprazole [Abilify] 2 mg PO DAILY 06/03/22 [History] Loperamide HCl [Loperamide] 4 mg PO Q12H PRN PRN 06/03/22 [History] Magnesium Oxide 400 mg [Mag-Ox 400] 800 mg PO DAILY 06/03/22 [History] Nitroglycerin 0.4 mg Tablet [Nitrostat 0.4 MG Tablet] 0.4 mg SL Q5MIN PRN MR X 3 PRN 06/03/22 [History] Pravastatin Sodium 80 mg PO DAILY 06/03/22 [History] Primidone 50 MG [Mysoline 50Mg] 50 mg PO BID 06/03/22 [History] Ranolazine 500 MG [Ranexa 500 MG] 500 mg PO BID 06/03/22 [History] Saccharomyces Boulardii [Florastor] 250 mg PO BID 06/03/22 [History] azaTHIOprine [Azathioprine] 50 mg PO BID 06/03/22 [History] lisinopriL [Zestril] 2.5 mg PO DAILY 06/03/22 [History] Apixaban [Eliquis 5 mg Tablet] 5 mg PO BID 08/16/22 [History] Acetaminophen 325 mg [Tylenol 325 mg] 2 tab PO Q4HPRN PRN 10/06/22 [History] Albuterol Sulfate [Proventil Hfa] 2 puff IH Q6HPRN PRN 10/06/22 [History] Furosemide 40 mg [Lasix 40 MG] 40 mg PO DAILY 10/06/22 [History] Metformin HCl 500 mg [Glucophage 500 MG] 500 mg PO DAILY 10/06/22 [ History] Potassium Chloride 10 meq PO DAILY 10/06/22 [History] Fluticasone/Umeclidin/Vilanter [Trelegy Ellipta 100-62.5-25] 1 puff IH DAILY 01/29/23 [History] Insulin Aspart [NovoLOG Insulin] 15 units SQ TIDWM 01/29/23 [History] Insulin Glargine,Hum.rec.anlog [Basaglar Kwikpen U-100] 38 unit SQ HS 01/29/23 [History] Hx Tetanus, Diphtheria Vaccination/Date Given: No (unknown) Hx Influenza Vaccination/Date Given: No Hx Pneumococcal Vaccination/Date Given: No Travel Risk - Vaccine Status Have you recieved a Covid-19 vaccination: No - Review of Systems Constitutional: No Symptoms Eyes: No Symptoms Ears, Nose, & Throat: No Symptoms Respiratory: Dyspnea, Dyspnea on Exertion ([place]), No Cough, No Wheezing Cardiac: Chest Pain, Edema, Orthopnea, PND Abdominal/Gastrointestinal: No Symptoms Genitourinary Symptoms: No Symptoms Musculoskeletal: Back Pain Skin: No Symptoms Neurological: No Symptoms Psychological: Anxiety - Past Medical History Pertinent Past Medical History: Yes Neurological History: Migraines, Peripheral Neuropathy ENT History: Cataracts Cardiac History: Coronary Artery Disease, High Cholesterol, Hypertension, Myocardial Infarction ([place]), Other Respiratory History: Asthma, Bronchitis, CHF, COPD, Sleep Apnea Endocrine Medical History: Diabetes Type II Musculoskeletal History: Arthritis, Degenerative Disk Disease, Fibromyalgia, Osteoarthritis GI Medical History: Crohns Disease, Diverticulitis, GERD, Irritable Bowel History: No Pertinent History Psycho-Social History: Anxiety, Depression Female Reproductive Disorders: No Pertinent History Other Medical History: HX UTI, HX Yeast Infection, Neuropathy, degenerative joint disease - Past Surgical History Past Surgical History: Yes Neuro Surgical History: No Pertinent History Cardiac: Cardiac Catheterization Respiratory: No Pertinent History Gastrointestinal: No Pertinent History Genitourinary: No Pertinent History Musculoskeletal: No Pertinent History Female Surgical History: Dilation & Curettage, Section, Tubal Ligation Other Surgical History: KIDNEY STONE REMOVAL, right 2nd toe amputated 2021. heart cath x3, no stents, clot removal rt thigh artery - Social History Smoking Status: Never smoker How long have you smoked: years Exposure to second hand smoke: No Alcohol Use: None Drug Use: none Patient Lives Alone: No Significant Family History: no pertinent family hx, diabetes, hypertension - Nursing Vital Signs Nursing Vital Signs: Initial Vital Signs Temperature 98.3 F 01/29/23 19:45 Pulse Rate 96 H 01/29/23 19:45 Respiratory Rate 26 H 01/29/23 19:45 Blood Pressure 213/104 01/29/23 19:45 O2 Sat by Pulse Oximetry 100 01/29/23 19:45 Pain Scale Pain Intensity 0 - Physical Exam General Appearance: moderate distress, anxiety, obese Eye Exam: eyes nml inspection Ears, Nose, Throat Exam: normal ENT inspection Neck Exam: normal inspection, full range of motion Respiratory Exam: normal breath sounds, chest tenderness, respiratory distress (increased work of breathing), airway intact, crackles/rales (right base) Cardiovascular Exam: regular rate/rhythm, normal heart sounds, capillary refill <2 sec, edema (3+) Gastrointestinal/Abdomen Exam: soft, normal bowel sounds, No tenderness Back Exam: normal inspection, normal range of motion, No CVA tenderness Extremity Exam: pedal edema, swelling, tenderness Neurologic Exam: alert, oriented x 3, cooperative, No confusion Skin Exam: normal color, warm, dry SpO2 Interpretation: normal O2 Delivery: Nasal Cannula (3L) - Course Nursing assessment & vital signs reviewed: Yes EKG Interpreted by Me: RATE (95), Sinus Rhythm, Left [place] Deviation (borderline), Other (ID 260) - CT Exams Chest CT Interpretation: Tele-radiologist Report, Other (no obvious PE, bibasilar atelectasis) Ordered Tests: Active Orders 24 hr Category Date Time Status Stock Associate STAT Care 01/29/23 19:48 Active EKG-ER Only STAT Care 01/29/23 19:47 Active Arnold [Catheter-[place] Arnold] STAT Care 01/29/23 20:46 Active IV Insertion STAT Care 01/29/23 19:47 Active Oxygen-ED Only Nasal Cannula 3 lpm Care 01/29/23 20:01 Active Pulse Oximetry (ED) STAT Care 01/29/23 19:47 Active CHEST WITH CONTRAST [CT] Stat Exams 01/29/23 20:00 Completed BLOOD CULTURE Stat Lab 01/29/23 20:10 Received CBC W DIFF Stat Lab 01/29/23 20:00 Completed CMP Stat Lab 01/29/23 20:00 Completed CULTURE,URINE Stat Lab 01/29/23 21:37 Received D-DIMER QUANTITATIVE Stat Lab 01/29/23 20:00 Completed LIPASE Stat Lab 01/29/23 20:00 Completed Lactic Acid Stat Lab 01/29/23 20:00 Completed Lactic Acid Stat Lab 01/29/23 22:05 Completed MAGNESIUM Stat Lab 01/29/23 20:00 Completed NT PRO BNPII Stat Lab 01/29/23 20:00 Completed TROPONIN Q4H Lab 01/29/23 20:00 Completed TROPONIN Q4H Lab 01/30/23 00:07 Completed TROPONIN Q4H Lab 01/30/23 04:00 Ordered UA W/RFX UR CULTURE Stat Lab 01/29/23 20:47 Completed Medication Summary Generic Name Dose Route Start Last Admin Trade Name Freq PRN Reason Stop Dose Admin Magnesium Sulfate/Dextrose 100 mls @ 100 mls/hr 01/29/23 20:45 01/29/23 21:55 Magnesium 1 Gm / 100 Ml D5w IV 01/29/23 22:44 100 mls/hr Q1H MITCH Administration Discontinued Medications Generic Name Dose Route Start Last Admin Trade Name Freq PRN Reason Stop Dose Admin Aspirin 324 mg 01/29/23 19:47 01/29/23 20:08 Aspirin 81 Mg Tab.Chew PO 01/29/23 19:48 324 mg STAT ONE Administration Aspirin Confirm 01/29/23 20:06 Aspirin 81 Mg Tab.Chew Administered 01/29/23 20:07 Dose 324 mg .ROUTE .STK-MED ONE Furosemide 40 mg 01/29/23 19:47 01/29/23 20:08 Furosemide 40 Mg/4 Ml Vial IV 01/29/23 19:48 40 mg STAT ONE Administration Furosemide Confirm 01/29/23 20:06 Furosemide 40 Mg/4 Ml Vial Administered 01/29/23 20:07 Dose 40 mg .ROUTE .STK-MED ONE Sodium Chloride 1,000 mls @ 999 mls/hr 01/29/23 20:27 01/29/23 21:57 Sodium Chloride 0.9% 1000 Ml IV 01/29/23 21:27 Infused .Q1H1M STA Infusion Sodium Chloride Confirm 01/29/23 20:31 Sodium Chloride 0.9% 1000 Ml Administered 01/29/23 20:32 Dose 1,000 mls @ ud .ROUTE .STK-MED ONE Labetalol HCl 20 mg 01/29/23 19:47 01/29/23 20:08 Labetalol Hcl 20 Mg/4 Ml Disp.Syringe IV 01/29/23 19:48 20 mg STAT ONE Administration Labetalol HCl Confirm 01/29/23 20:06 Labetalol Hcl 20 Mg/4 Ml Disp.Syringe Administered 01/29/23 20:07 Dose 20 mg IV .STK-MED ONE Morphine Sulfate 2 mg 01/29/23 19:47 01/29/23 20:32 Morphine Sulfate 2 Mg/Ml Inj IV 01/29/23 19:48 2 mg STAT ONE Administration Morphine Sulfate Confirm 01/29/23 20:30 Morphine Sulfate 2 Mg/Ml Inj Administered 01/29/23 20:31 Dose 2 mg .ROUTE .STK-MED ONE Nitroglycerin 0.4 mg 01/29/23 19:47 01/29/23 20:08 Nitroglycerin 0.4 Mg (Ed) 0.4 Mg Tab.Subl SL 01/29/23 19:48 0.4 mg STAT ONE Administration Nitroglycerin Confirm 01/29/23 20:06 Nitroglycerin 0.4 Mg (Ed) 0.4 Mg Tab.Subl Administered 01/29/23 20:07 Dose 0.4 mg SL .STK-MED ONE Lab/Rad Data: Laboratory Result Diagrams 01/29/23 20:00 01/29/23 20:00 Laboratory Results 01/30/23 01/29/23 01/29/23 Range/Units 00:07 22:05 20:47 WBC (4.0-10.5) x10^3/uL RBC (4.1-5.4) x10^6/uL Hgb (12.0-16.0) g/dL Hct (35-47) % MCV (78-100) fL MCH (26-32) pg MCHC (32-36) g/dL RDW (11.5-14.0) % Plt Count (150-450) x10^3/uL MPV (7.5-11.0) fL Gran % (36.0-66.0) % Immature Gran % (Auto) (0.00-0.4) % Nucleat RBC Rel Count (0.00-0.1) % Eos # (Auto) (0-0.5) x10^3/uL Immature Gran # (Auto) (0.00-0.03) x10^3u/L Absolute Lymphs (auto) (1.0-4.6) x10^3/uL Absolute Monos (auto) (0.0-1.3) x10^3/uL Absolute Nucleated RBC (0.00-0.01) x10^3u/L Lymphocytes % (24.0-44.0) % Monocytes % (0.0-12.0) % Eosinophils % (0.00-5.0) % Basophils % (0.0-0.4) % Absolute Granulocytes (1.4-6.9) x10^3/uL Basophils # (0-0.4) x10^3/uL D-Dimer (0.0-0.50) mg/L Sodium (137-145) mmol/L Potassium (3.5-5.1) mmol/L Chloride (98-107) mmol/L Carbon Dioxide (22-30) mmol/L Anion Gap (5-15) MEQ/L BUN (7-17) mg/dL Creatinine (0.52-1.04) mg/dL Estimated GFR ML/MIN Glucose (74-106) mg/dL Lactic Acid 2.1 H (0.4-2.0) Calcium (8.4-10.2) mg/dL Magnesium (1.6-2.3) mg/dL Total Bilirubin (0.2-1.3) mg/dL AST (14-36) U/L ALT (0-35) U/L Alkaline Phosphatase (38-126) U/L Troponin I < 0.012 (0.000-0.034) ng/mL NT-Pro-B Natriuret Pep (<300) pg/mL Serum Total Protein (6.3-8.2) g/dL Albumin (3.5-5.0) g/dL Lipase (23-300) U/L Urine Color Yellow (Yellow) Urine Appearance Clear (Clear) Urine pH 6.5 (4.6-8.0) Ur Specific [place] <=1.005 (1.005-1.030) Urine Protein Negative (Negative) Urine Glucose (UA) Negative (Negative) mg/dL Urine Ketones Negative (Negative) Urine Blood Negative (Negative) Urine Nitrite Negative (Negative) Urine Bilirubin Negative (Negative) Urine Urobilinogen 0.2 (0.2) mg/dL Ur Leukocyte Esterase Moderate A (Negative) U Hyaline Cast (Auto) NONE SEEN (0-2) /LPF Urine Microscopic RBC 0-2 (0-5) /HPF Urine Microscopic WBC 21-50 A (0-5) /HPF Ur Epithelial Cells None Seen (None Seen) /HPF Urine Bacteria None Seen (None Seen) /HPF Urine Culture Reflexed ORDERED SEPARATELY (NO) Influenza Type A Ag (NEGATIVE) Influenza Type B Ag (NEGATIVE) RSV (PCR) (NEGATIVE) SARS-CoV-2 (PCR) (NEGATIVE) Slides for Path Review 01/29/23 01/29/23 01/29/23 Range/Units 20:00 20:00 20:00 WBC (4.0-10.5) x10^3/uL RBC (4.1-5.4) x10^6/uL Hgb (12.0-16.0) g/dL Hct (35-47) % MCV (78-100) fL MCH (26-32) pg MCHC (32-36) g/dL RDW (11.5-14.0) % Plt Count (150-450) x10^3/uL MPV (7.5-11.0) fL Gran % (36.0-66.0) % Immature Gran % (Auto) (0.00-0.4) % Nucleat RBC Rel Count (0.00-0.1) % Eos # (Auto) (0-0.5) x10^3/uL Immature Gran # (Auto) (0.00-0.03) x10^3u/L Absolute Lymphs (auto) (1.0-4.6) x10^3/uL Absolute Monos (auto) (0.0-1.3) x10^3/uL Absolute Nucleated RBC (0.00-0.01) x10^3u/L Lymphocytes % (24.0-44.0) % Monocytes % (0.0-12.0) % Eosinophils % (0.00-5.0) % Basophils % (0.0-0.4) % Absolute Granulocytes (1.4-6.9) x10^3/uL Basophils # (0-0.4) x10^3/uL D-Dimer 0.63 H* (0.0-0.50) mg/L Sodium (137-145) mmol/L Potassium (3.5-5.1) mmol/L Chloride (98-107) mmol/L Carbon Dioxide (22-30) mmol/L Anion Gap (5-15) MEQ/L BUN (7-17) mg/dL Creatinine (0.52-1.04) mg/dL Estimated GFR ML/MIN Glucose (74-106) mg/dL Lactic Acid (0.4-2.0) Calcium (8.4-10.2) mg/dL Magnesium (1.6-2.3) mg/dL Total Bilirubin (0.2-1.3) mg/dL AST (14-36) U/L ALT (0-35) U/L Alkaline Phosphatase (38-126) U/L Troponin I < 0.012 (0.000-0.034) ng/mL NT-Pro-B Natriuret Pep (<300) pg/mL Serum Total Protein (6.3-8.2) g/dL Albumin (3.5-5.0) g/dL Lipase (23-300) U/L Urine Color (Yellow) Urine Appearance (Clear) Urine pH (4.6-8.0) Ur Specific [place] (1.005-1.030) Urine Protein (Negative) Urine Glucose (UA) (Negative) mg/dL Urine Ketones (Negative) Urine Blood (Negative) Urine Nitrite (Negative) Urine Bilirubin (Negative) Urine Urobilinogen (0.2) mg/dL Ur Leukocyte Esterase (Negative) U Hyaline Cast (Auto) (0-2) /LPF Urine Microscopic RBC (0-5) /HPF Urine Microscopic WBC (0-5) /HPF Ur Epithelial Cells (None Seen) /HPF Urine Bacteria (None Seen) /HPF Urine Culture Reflexed (NO) Influenza Type A Ag NEGATIVE (NEGATIVE) Influenza Type B Ag NEGATIVE (NEGATIVE) RSV (PCR) NEGATIVE (NEGATIVE) SARS-CoV-2 (PCR) NEGATIVE (NEGATIVE) Slides for Path Review 01/29/23 01/29/23 01/29/23 Range/Units 20:00 20:00 20:00 WBC 6.4 (4.0-10.5) x10^3/uL RBC 4.28 (4.1-5.4) x10^6/uL Hgb 9.8 L (12.0-16.0) g/dL Hct 34.3 L (35-47) % MCV 80.1 (78-100) fL MCH 22.9 L (26-32) pg MCHC 28.6 L (32-36) g/dL RDW 17.0 H (11.5-14.0) % Plt Count 199 (150-450) x10^3/uL MPV 12.2 H (7.5-11.0) fL Gran % 76.1 H (36.0-66.0) % Immature Gran % (Auto) 0.3 (0.00-0.4) % Nucleat RBC Rel Count 0.0 (0.00-0.1) % Eos # (Auto) 0.25 (0-0.5) x10^3/uL Immature Gran # (Auto) 0.02 (0.00-0.03) x10^3u/L Absolute Lymphs (auto) 0.82 L (1.0-4.6) x10^3/uL Absolute Monos (auto) 0.41 (0.0-1.3) x10^3/uL Absolute Nucleated RBC 0.00 (0.00-0.01) x10^3u/L Lymphocytes % 12.9 L (24.0-44.0) % Monocytes % 6.5 (0.0-12.0) % Eosinophils % 3.9 (0.00-5.0) % Basophils % 0.3 (0.0-0.4) % Absolute Granulocytes 4.83 (1.4-6.9) x10^3/uL Basophils # 0.02 (0-0.4) x10^3/uL D-Dimer (0.0-0.50) mg/L Sodium 135 L (137-145) mmol/L Potassium 4.6 (3.5-5.1) mmol/L Chloride 96 L (98-107) mmol/L Carbon Dioxide 32 H (22-30) mmol/L Anion Gap 12.3 (5-15) MEQ/L BUN 15 (7-17) mg/dL Creatinine 0.54 (0.52-1.04) mg/dL Estimated GFR > 60.0 ML/MIN Glucose 318 H (74-106) mg/dL Lactic Acid 2.2 H (0.4-2.0) Calcium 9.4 (8.4-10.2) mg/dL Magnesium 1.5 L (1.6-2.3) mg/dL Total Bilirubin 0.50 (0.2-1.3) mg/dL AST 28 (14-36) U/L ALT 22 (0-35) U/L Alkaline Phosphatase 167 H (38-126) U/L Troponin I (0.000-0.034) ng/mL NT-Pro-B Natriuret Pep 247 (<300) pg/mL Serum Total Protein 7.5 (6.3-8.2) g/dL Albumin 3.9 (3.5-5.0) g/dL Lipase 64 (23-300) U/L Urine Color (Yellow) Urine Appearance (Clear) Urine pH (4.6-8.0) Ur Specific [place] (1.005-1.030) Urine Protein (Negative) Urine Glucose (UA) (Negative) mg/dL Urine Ketones (Negative) Urine Blood (Negative) Urine Nitrite (Negative) Urine Bilirubin (Negative) Urine Urobilinogen (0.2) mg/dL Ur Leukocyte Esterase (Negative) U Hyaline Cast (Auto) (0-2) /LPF Urine Microscopic RBC (0-5) /HPF Urine Microscopic WBC (0-5) /HPF Ur Epithelial Cells (None Seen) /HPF Urine Bacteria (None Seen) /HPF Urine Culture Reflexed (NO) Influenza Type A Ag (NEGATIVE) Influenza Type B Ag (NEGATIVE) RSV (PCR) (NEGATIVE) SARS-CoV-2 (PCR) (NEGATIVE) Slides for Path Review YES - Progress Progress: improved Air Movement: good Progress Note: 01/29/23 22:[address] Garcia regarding admission for observation to r/o ACS and he feels like if second troponin is neg she can be discharged home. I discussed the plan with the patient who is agreeable. 01/29/23 22:31 Hb 9.8, Na 135, Mg 1.5, Glu 318, Lactate 2.2, Troponin neg x1, D-dimer 0.63, BNP 247, Lipase 64 UA - mod LE, 21-50 WBC, no urinary sxs will send for cx, decision made to not treat CTA showed no obvious PE, bibasilar atelectasis 01/30/23 00:44 Repeat Troponin neg, patient has no CP at this time. She is agreeable to d/c home at this time and f/u closely w/ PCP. Blood Culture(s) Obtained: Yes Antibiotics given: No Discussed with Dr.: Other (Radha) Counseled pt/family regarding: lab results, diagnosis, need for follow-up, rad results Medical Desision Making - Discussion of managment Care discussed with:: hospitalist Reviewed:: Test results, Need for additional workup Agreed on:: Treatment plan, need for follow-up - Diagnostic Testing Diagnostic test were ordered, analyzed, and reviewed by me: Yes Radiological Interpretation: Interpreted by me, Reviewed by me, Teleradiologist Report - Risk of complications The pt has a mod risk of morbidity or mortality based on: Need for prescription drug management - Departure Departure Disposition: Home Clinical Impression: Unstable angina, Hypomagnesemia, Hyperglycemia due to type 2 diabetes mellitus, Anemia Condition: Stable Critical Care Time: No Referrals: CALVIN PALOMINO [Primary Care Provider] - Follow up/PCP as directed Instructions: Angina (DC)
[2023-01-29] MEDS ORDERED: TRANDATE 20 MG/4 ML SYRINGE IV ONE ×2 (19:47→20:06)
[2023-01-29] MEDS ORDERED: MORPHINE SULFATE 2 MG INJ IV ONE (19:47)
[2023-01-29] MEDS ORDERED: Nitrostat 0.4 MG (ED) SL ONE ×2 (19:47→20:06)
[2023-01-29] MEDS ORDERED: Lasix 40 MG/4 ML IV ONE (19:47)
[2023-01-29] MEDS ORDERED: BABY ASPIRIN 81 MG CHEW PO ONE (19:47)
[2023-01-29] MEDS ORDERED: BABY ASPIRIN 81 MG CHEW ONE (20:06)
[2023-01-29] MEDS ORDERED: Lasix 40 MG/4 ML ONE (20:06)
[2023-01-29 20:10] LABS: Absolute Neutrophil Ct (ANC) 4.83 x10^3/uL (1.4-6.9); BASOPHIL % 0.3 % (0.0-0.4); Basophil (Absolute #) 0.02 x10^3/uL (0-0.4); Eosinophil % 3.9 % (0.00-5.0); Eosinophil (Absolute #) 0.25 x10^3/uL (0-0.5); Hematocrit 34.3 % (35-47); Hemoglobin 9.8 g/dL (12.0-16.0); IMMATURE GRAN # 0.02 x10^3u/L (0.00-0.03); IMMATURE GRAN % 0.3 % (0.00-0.4); Lymphocyte (Absolute #) 0.82 x10^3/uL (1.0-4.6); Lymphocytes % 12.9 % (24.0-44.0); Mean Cell Volume 80.1 fL (78-100); Mean Corpuscular Hemoglobin 22.9 pg (26-32); Mean Corpuscular Hgb Concent. 28.6 g/dL (32-36); Mean Platelet Volume 12.2 fL (7.5-11.0); Monocyte (Absolute #) 0.41 x10^3/uL (0.0-1.3); Monocytes % 6.5 % (0.0-12.0); Neutrophil % 76.1 % (36.0-66.0); Platelet Count 199 x10^3/uL (150-450); Red Blood Count 4.28 x10^6/uL (4.1-5.4); White Blood Count 6.4 x10^3/uL (4.0-10.5)
[2023-01-29] MEDS ORDERED: Sodium Chloride 0.9% 1000 ML 1,000 ML IV STA (20:27)
[2023-01-29] MEDS ORDERED: MORPHINE SULFATE 2 MG INJ ONE (20:30)
[2023-01-29] MEDS ORDERED: Sodium Chloride 0.9% 1000 ML 1,000 ML ONE (20:31)
[2023-01-29 20:37] LABS: ALBUMIN 3.9 g/dL (3.5-5.0); ALKALINE PHOSPHATASE 167 U/L (38-126); ANION GAP 12.3 MEQ/L (5-15); BLOOD UREA NITROGEN 15 mg/dL (7-17); CHLORIDE 96 mmol/L (98-107); Calcium 9.4 mg/dL (8.4-10.2); Carbon Dioxide 32 mmol/L (22-30); Creatinine 1 0.54 mg/dL (0.52-1.04); EST GLOMERULAR FILTRATION RATE > 60.0 ML/MIN; Glucose 318 mg/dL (74-106); LIPASE 64 U/L (23-300); MAGNESIUM 1.5 mg/dL (1.6-2.3); NT PRO BNPII 247 pg/mL (<300); Potassium 4.6 mmol/L (3.5-5.1); SGOT/AST 28 U/L (14-36); SGPT/ALT 22 U/L (0-35); SODIUM 135 mmol/L (137-145); Total Protein 7.5 g/dL (6.3-8.2)
[2023-01-29 20:52] LABS: INFLUENZA A NEGATIVE (NEGATIVE); INFLUENZA B NEGATIVE (NEGATIVE); RESPIRATORY SYNCTIAL VIRUS NEGATIVE (NEGATIVE); SARS-CoV-2 Xpert Express NEGATIVE (NEGATIVE)
[2023-01-29] MEDS ORDERED: Magnesium 1 Gm / 100 Ml D5W*** 100 ML IV ONE ×2 (20:54→21:54)
[2023-01-29] MEDS: Magnesium 1 Gm / 100 Ml D5W*** 100 ML IV SCH ×2 (21:17→21:55)
[2023-01-29 21:29] LABS: Appearance Clear (Clear); Bacteria None Seen /HPF (None Seen); Bilirubin Negative (Negative); Blood Negative (Negative); Epithelial Cells None Seen /HPF (None Seen); Glucose, Urine Negative (Negative); Hyaline Casts NONE SEEN /LPF (0-2); Ketones Negative (Negative); Leukocyte Esterase Moderate (Negative); Nitrite Negative (Negative); Ph 6.5 (4.6-8.0); Protein,Urine Dip Negative (Negative); RBC 0-2 /HPF (0-5); Specific Gravity <=1.005 (1.005-1.030); Urobilinogen 0.2 mg/dL (0.2); WBC 21-50 /HPF (0-5)
[2023-01-29 21:32] LABS: ADD URINE CULTURE? ORDERED SEPARATELY (NO)
[2023-01-29 21:47] LABS: Slide Review 1 YES
--- NOTE | 2023-01-29 21:52 | XRAY ---
Indication: Chest pain intraoperative breath. Right thigh "clots." Elevated d-dimer. Multiple contiguous axial images obtained through the chest using 100 cc Isovue 370 contrast and PE protocol. Comparison: December 11, 2022 Good opacification of the pulmonary arteries to include the lobar and segmental branches. However mild respiration artifact limits evaluation of the more distal lobar and segmental branches. No obvious pulmonary embolus. Heart remains borderline enlarged. Aorta remains normal course and caliber. No pathologic mediastinal/hilar lymphadenopathy. Stable right hemidiaphragm elevation and bibasilar subsegmental atelectasis. No suspicious pulmonary mass/nodule, infiltrate, effusion, or pneumothorax. Bony thorax remains intact again with minimal degenerative changes throughout the spine. Limited upper abdomen again demonstrates fatty liver, tiny gallstones, and left renal cyst. Impression: 1. Pulmonary embolus evaluation limited by respiration artifact. No obvious pulmonary embolus. 2. Stable right hemidiaphragm elevation, bibasilar atelectasis, degenerative spondylosis, fatty hepatomegaly, tiny gallstones, and left renal cyst.
[2023-01-29 23:11] VITALS: O2SAT 100
[2023-01-30 00:08] VITALS: BP 124/59; PULSE 87
== END 2023-01-30 01:04 | disposition home or self-care (01) ==
LOC: ED 19:43
DX: I25.110 Atherosclerotic heart disease of native coronary artery with unstable angina pectoris (principal); E11.65 Type 2 diabetes mellitus with hyperglycemia; D64.9 Anemia, unspecified; E83.42 Hypomagnesemia; R06.02 Shortness of breath; R12 Heartburn; E78.5 Hyperlipidemia, unspecified; I10 Essential (primary) hypertension; E11.42 Type 2 diabetes mellitus with diabetic polyneuropathy; Z79.4 Long term (current) use of insulin; Z79.84 Long term (current) use of oral hypoglycemic drugs; Z79.01 Long term (current) use of anticoagulants; Z79.899 Other long term (current) drug therapy; Z28.310 Unvaccinated for COVID-19; Z20.828 Contact with and (suspected) exposure to other viral communicable diseases
CPT/HCPCS: 0241U; 36000; 36415; 51702; 71260; 80053; 81001; 83605; 83690; 83735; 83880; 84484; 85025; 85379; 87040; 87086; 93005; 93041; 94760; 96360; 96374; 96375; 99285; 87077; 87186; 96365; 96366; J1940; J2270; J3475; A9270-GY

== ENCOUNTER 2023-07-02 10:37 | Emergency (ER) | payer MEDICARE ==
--- NOTE | 2023-07-02 10:49 | ERPHSYRPT ---
- History of Present Illness Time Seen by Provider: 07/02/23 10:40 Historian: patient, EMS, old records Exam Limitations: no limitations Physician History: This is a morbidly obese white female patient of Dr. Holguin who has had 2 days of intermittent rectal bleeding. It was mild yesterday and it had increased today. She has mild bilateral lower quadrant and suprapubic abdominal pain. Patient has a history of irritable bowel syndrome, Crohn's disease and ulcerativ e colitis per her report. She is on Pentasa. When she has flareups like this, she has Dr. Holguin call in prednisone for her. However Dr. Holguin is out of the office today. She was brought to the emergency department by the ambulance service. The paramedics provided independent, additional history on this patient. Patient has not had any nausea vomiting or diarrhea symptoms. She has not had any fevers. Patient has multiple medical problems including hyperlipidemia, diabetes, hypothyroidism, gastroesophageal reflux disease, coronary artery disease, hypertension, COPD, degenerative disc disease and fibromyalgia Timing/Duration: yesterday Quality: aching Abdominal Pain Onset Location: RLQ, LLQ, suprapubic Pain Radiation: no radiation Severity of Pain-Max: mild Severity of Pain-Current: mild Modifying Factors: Improves With: nothing Associated Symptoms: denies symptoms, No chest pain, No fever/chills, No nausea, No neck pain, No weakness Previous symptoms: same symptoms as today, no recent treatment Allergies/Adverse Reactions: cyclobenzaprine HCl [From Flexeril] Allergy (Mild, Verified 07/02/23 10:44) Rash metoclopramide [From Reglan] Allergy (Mild, Verified 07/02/23 10:44) Rash Sulfa (Sulfonamide Antibiotics) [Sulfa(Sulfonamide Antibiotics)] Allergy (Mild, Verified 07/02/23 10:44) Rash adhesive Allergy (Verified 07/02/23 10:44) Rash nalbuphine HCl [From Nubain] Adverse Reaction (Intermediate, Verified 07/02/23 10:44) Stomach Cramps patient states she had stomach "burning" and that her legs felt like "rubber bands" ciprofloxacin [From Cipro] Adverse Reaction (Mild, Verified 07/02/23 10:44) Rash meperidine HCl [From Demerol] Adverse Reaction (Mild, Verified 07/02/23 10:44) Vomiting Home Medications: Duloxetine HCl 60 mg PO DAILY 03/17/16 [History] Mesalamine [Pentasa] 500 mg PO BID 03/17/16 [History] Omeprazole 20 MG [Prilosec 20 mg] 20 mg PO BID 03/17/16 [History] Atorvastatin Calcium 10 mg PO DAILY 01/25/18 [History] Meclizine HCl 25 mg [Antivert 25 mg] 25 mg PO Q8H PRN PRN 12/05/19 [History] Isosorbide Mononitrate 60 mg [Imdur 60MG] 120 mg PO DAILY 12/31/20 [History] Levothyroxine Sodium 25 Mcg [Synthroid 25 Mcg] 25 mcg PO DAILY 12/31/20 [History] Aripiprazole [Abilify] 2 mg PO DAILY 06/03/22 [History] Loperamide HCl [Loperamide] 4 mg PO Q12H PRN PRN 06/03/22 [History] Magnesium Oxide 400 mg [Mag-Ox 400] 800 mg PO DAILY 06/03/22 [History] Nitroglycerin 0.4 mg Tablet [Nitrostat 0.4 MG Tablet] 0.4 mg SL Q5MIN PRN MR X 3 PRN 06/03/22 [History] Pravastatin Sodium 80 mg PO DAILY 06/03/22 [History] Primidone 50 MG [Mysoline 50Mg] 50 mg PO BID 06/03/22 [History] Ranolazine 500 MG [Ranexa 500 MG] 500 mg PO BID 06/03/22 [History] Saccharomyces Boulardii [Florastor] 250 mg PO BID 06/03/22 [History] azaTHIOprine [Azathioprine] 50 mg PO BID 06/03/22 [History] lisinopriL [Zestril] 2.5 mg PO DAILY 06/03/22 [History] Apixaban [Eliquis 5 mg Tablet] 5 mg PO BID 08/16/22 [History] Acetaminophen 325 mg [Tylenol 325 mg] 2 tab PO Q4HPRN PRN 10/06/22 [History] Albuterol Sulfate [Proventil Hfa] 2 puff IH Q6HPRN PRN 10/06/22 [History] Furosemide 40 mg [Lasix 40 MG] 40 mg PO DAILY 10/06/22 [History] Metformin HCl 500 mg [Glucophage 500 MG] 500 mg PO DAILY 10/06/22 [History] Potassium Chloride 10 meq PO DAILY 10/06/22 [History] Fluticasone/Umeclidin/Vilanter [Trelegy Ellipta 100-62.5-25] 1 puff IH DAILY 01/29/23 [History] Insulin Aspart [NovoLOG Insulin] 15 units SQ TIDWM 01/29/23 [History] Insulin Glargine,Hum.rec.anlog [Basaglar Kwikpen U-100] 38 unit SQ HS 01/29/23 [History] Hx Tetanus, Diphtheria Vaccination/Date Given: No (unknown) Hx Influenza Vaccination/Date Given: No Hx Pneumococcal Vaccination/Date Given: No Travel Risk - International Travel Have you traveled outside of the country in past 3 weeks: No - Coronavirus Screening Are you exhibiting any of the following symptoms?: No Symptoms: Loss of Taste or Smell - Vaccine Status Have you recieved a Covid-19 vaccination: No - Review of Systems Constitutional: No Symptoms Eyes: No Symptoms Respiratory: No Symptoms Abdominal/Gastrointestinal: Abdominal Pain (Mild bilateral lower quadrant and suprapubic discomfort), Hematochezia (Intermittent) Genitourinary Symptoms: No Symptoms Musculoskeletal: No Symptoms Skin: No Symptoms Neurological: No Symptoms Psychological: No Symptoms Endocrine: No Symptoms Hematologic/Lymphatic: No Symptoms Immunological/Allergic: No Symptoms All Other Systems: Reviewed and Negative - Past Medical History Pertinent Past Medical History: Yes Neurological History: Migraines, Peripheral Neuropathy ENT History: Cataracts Cardiac History: Coronary Artery Disease, High Cholesterol, Hypertension, Myocardial Infarction (ID), Other Respiratory History: Asthma, Bronchitis, CHF, COPD, Sleep Apnea Endocrine Medical History: Diabetes Type II Musculoskeletal History: Arthritis, Degenerative Disk Disease, Fibromyalgia, Osteoarthritis GI Medical History: Crohns Disease, Diverticulitis, GERD, Irritable Bowel History: No Pertinent History Psycho-Social History: Anxiety, Depression Female Reproductive Disorders: No Pertinent History Other Medical History: HX UTI, HX Yeast Infection, Neuropathy, degenerative joint disease - Past Surgical History Past Surgical History: Yes Neuro Surgical History: No Pertinent History Cardiac: Cardiac Catheterization Respiratory: No Pertinent History Gastrointestinal: No Pertinent History Genitourinary: No Pertinent History Musculoskeletal: No Pertinent History Female Surgical History: Dilation & Curettage, Section, Tubal Ligation Other Surgical History: KIDNEY STONE REMOVAL, right 2nd toe amputated 2021. heart cath x3, no stents, clot removal rt thigh artery - Social History Smoking Status: Never smoker How long have you smoked: years Exposure to second hand smoke: No Alcohol Use: None Drug Use: none Patient Lives Alone: No Significant Family History: no pertinent family hx, diabetes, hypertension - Nursing Vital Signs Nursing Vital Signs: Initial Vital Signs Temperature 98.2 F 07/02/23 10:46 Pulse Rate 82 07/02/23 10:46 Respiratory Rate 18 07/02/23 10:46 Blood Pressure 147/88 07/02/23 10:46 O2 Sat by Pulse Oximetry 98 07/02/23 10:46 Pain Scale Pain Intensity 5 - Physical Exam General Appearance: no apparent distress, alert, anxiety, obese Eye Exam: PERRL/EOMI, eyes nml inspection Ears, Nose, Throat Exam: normal ENT inspection, moist mucous membranes Neck Exam: normal inspection, non-tender, supple, full range of motion Respiratory Exam: normal breath sounds, lungs clear, airway intact, No chest tenderness, No respiratory distress Cardiovascular Exam: regular rate/rhythm, normal heart sounds, normal peripheral pulses Gastrointestinal/Abdomen Exam: soft, normal bowel sounds, tenderness (Mild tenderness suprapubic and bilateral lower quadrants to palpation), No guarding, No rebound Pelvic Exam: adnexal mass Rectal Exam: not done Back Exam: normal inspection, normal range of motion, No CVA tenderness, No vertebral tenderness Extremity Exam: normal inspection, normal range of motion, pelvis stable Neurologic Exam: alert, oriented x 3, cooperative, [employer] II-XII nml as tested, normal mood/affect Skin Exam: normal color, warm, dry Lymphatic Exam: No adenopathy SpO2 Interpretation: normal O2 Delivery: Room Air - Course Nursing assessment & vital signs reviewed: Yes Ordered Tests: Active Orders 24 hr Category Date Time Status IV Insertion STAT Care 07/02/23 11:04 Active ABDOMEN AND PELVIS W/0 CONTRAS [CT] Stat Exams 07/02/23 11:04 Completed AMYLASE Stat Lab 07/02/23 11:07 Completed BLOOD CULTURE Stat Lab 07/02/23 11:20 Ordered CBC W DIFF Stat Lab 07/02/23 11:07 Completed CMP Stat Lab 07/02/23 11:07 Completed LIPASE Stat Lab 07/02/23 11:07 Completed Lactic Acid Stat Lab 07/02/23 11:04 Completed Medication Summary Discontinued Medications Generic Name Dose Route Start Last Admin Trade Name Fadia PRN Reason Stop Dose Admin Sodium Chloride 1,000 mls @ 999 mls/hr 07/02/23 11:04 07/02/23 12:23 Sodium Chloride 0.9% 1000 Ml IV 07/02/23 12:04 Infused .Q1H1M STA Infusion Sodium Chloride Confirm 07/02/23 11:17 Sodium Chloride 0.9% 1000 Ml Administered 07/02/23 11:18 Dose 1,000 mls @ ud .ROUTE .STK-MED ONE Lab/Rad Data: Laboratory Result Diagrams 07/02/23 11:07 07/02/23 11:07 Laboratory Results 07/02/23 07/02/23 07/02/23 Range/Units 11:07 11:07 11:04 WBC 5.8 (4.0-10.5) x10^3/uL RBC 3.81 L (4.1-5.4) x10^6/uL Hgb 9.2 L (12.0-16.0) g/dL Hct 32.5 L (35-47) % MCV 85.3 (78-100) fL MCH 24.1 L (26-32) pg MCHC 28.3 L (32-36) g/dL RDW 15.9 H (11.5-14.0) % Plt Count 202 (150-450) x10^3/uL MPV 12.8 H (7.5-11.0) fL Gran % 78.5 H (36.0-66.0) % Immature Gran % (Auto) 0.3 (0.00-0.4) % Nucleat RBC Rel Count 0.0 (0.00-0.1) % Eos # (Auto) 0.21 (0-0.5) x10^3/uL Immature Gran # (Auto) 0.02 (0.00-0.03) x10^3u/L Absolute Lymphs (auto) 0.58 L (1.0-4.6) x10^3/uL Absolute Monos (auto) 0.41 (0.0-1.3) x10^3/uL Absolute Nucleated RBC 0.00 (0.00-0.01) x10^3u/L Lymphocytes % 10.0 L (24.0-44.0) % Monocytes % 7.1 (0.0-12.0) % Eosinophils % 3.6 (0.00-5.0) % Basophils % 0.5 (0.0-0.4) % Absolute Granulocytes 4.54 (1.4-6.9) x10^3/uL Basophils # 0.03 (0-0.4) x10^3/uL Sodium 137 (137-145) mmol/L Potassium 4.3 (3.5-5.1) mmol/L Chloride 92 L (98-107) mmol/L Carbon Dioxide 32 H (22-30) mmol/L Anion Gap 17.3 H (5-15) MEQ/L BUN 17 (7-17) mg/dL Creatinine 0.56 (0.52-1.04) mg/dL Estimated GFR > 60.0 ML/MIN Glucose 401 H (74-106) mg/dL Lactic Acid 2.1 H (0.4-2.0) Calcium 8.9 (8.4-10.2) mg/dL Total Bilirubin 0.40 (0.2-1.3) mg/dL AST 23 (14-36) U/L ALT 17 (0-35) U/L Alkaline Phosphatase 121 (38-126) U/L Serum Total Protein 7.3 (6.3-8.2) g/dL Albumin 4.0 (3.5-5.0) g/dL Amylase 58 (30-110) U/L Lipase 74 (23-300) U/L - Progress Progress: improved, pain not gone completely, re-examined Progress Note: 07/02/23 12:55 This patient's medical issue is 1 of moderate complexity. The level of complexity in the work-up performed is based on review of the patient's past medical history, review the patient's medication list, review of the patient's drug allergy list, history present illness and physical findings on examination. The work-up in this patient includes placement of intravenous line, infusion of normal saline solution, CBC, CMP, amylase level, lactic acid level, urinalysis (patient refuses urinalysis) and CT scan of the abdomen pelvis without contrast. I reviewed the results of this patient's laboratory data. The patient does not have an acute, emergent abnormality on her blood work today. Patient's range of hemoglobin that is normal for her is anywhere between 8.1 and 9.8. Patient hemoglobin today is 9.2. The lactic acid level is normal. Patient has a normal white count. The CT scan of the abdomen pelvis was interpreted by the radiologist and I read the impression. There is mildly distended gallbladder with tiny gallstones and mild biliary prominence. The noncontrasted stomach and bowel loops are nonobstructed with a normal-appearing appendix. Patient does not have any acute, surgical findings on her CAT scan of the abdomen pelvis. She is having rectal bleeding which she has had intermittently in the past because of her history of ulcerative colitis and Crohn's disease. Typically, the patient received steroids. We will provide her with 125 mg intravenous Solu-Medrol fol lowed by outpatient treatment of prednisone. Patient is to contact Dr. Holguin's office on 07/05/2023 to obtain appointment for follow-up in the next 3 days. Counseled pt/family regarding: lab results, diagnosis, need for follow-up, rad results Medical Desision Making - Independent Historian Additional History obtained from: Registered Nurse Nursery/EMT - Diagnostic Testing Diagnostic test were ordered, analyzed, and reviewed by me: Yes Radiological Interpretation: Reviewed by me, Teleradiologist Report - Risk of complications The pt has a mod risk of morbidity or mortality based on: Need for prescription drug management - Departure Departure Disposition: Home Clinical Impression: Rectal bleeding Condition: Stable Critical Care Time: No Referrals: CALVIN HOLGUIN [Primary Care Provider] - Follow up/PCP as directed Additional Instructions: Drink plenty of fluids. Take your steroids and other medication as prescribed. Call Dr. Holguin's office on 07/05/2023 to make arrangements for further evaluation and management in the next 3 to 5 days. Follow and manage your blood sugars closely while taking the steroids. Prescriptions: Prednisone 10 mg [Deltasone 10 mg] 10 mg PO TID #12 tablet
[2023-07-02 10:51] VITALS: TEMP 98.2; O2SAT 98
[2023-07-02] MEDS ORDERED: Sodium Chloride 0.9% 1000 ML 1,000 ML IV STA (11:04)
[2023-07-02] MEDS ORDERED: Sodium Chloride 0.9% 1000 ML 1,000 ML ONE (11:17)
[2023-07-02 11:26] LABS: Absolute Neutrophil Ct (ANC) 4.54 x10^3/uL (1.4-6.9); BASOPHIL % 0.5 % (0.0-0.4); Basophil (Absolute #) 0.03 x10^3/uL (0-0.4); Eosinophil % 3.6 % (0.00-5.0); Eosinophil (Absolute #) 0.21 x10^3/uL (0-0.5); Hematocrit 32.5 % (35-47); Hemoglobin 9.2 g/dL (12.0-16.0); IMMATURE GRAN # 0.02 x10^3u/L (0.00-0.03); IMMATURE GRAN % 0.3 % (0.00-0.4); Lymphocyte (Absolute #) 0.58 x10^3/uL (1.0-4.6); Mean Cell Volume 85.3 fL (78-100); Mean Corpuscular Hemoglobin 24.1 pg (26-32); Mean Corpuscular Hgb Concent. 28.3 g/dL (32-36); Mean Platelet Volume 12.8 fL (7.5-11.0); Monocyte (Absolute #) 0.41 x10^3/uL (0.0-1.3); Monocytes % 7.1 % (0.0-12.0); Neutrophil % 78.5 % (36.0-66.0); Platelet Count 202 x10^3/uL (150-450); Red Blood Count 3.81 x10^6/uL (4.1-5.4); Red Cell Distribution Width 15.9 % (11.5-14.0); White Blood Count 5.8 x10^3/uL (4.0-10.5)
[2023-07-02 11:41] LABS: ALKALINE PHOSPHATASE 121 U/L (38-126); AMYLASE 58 U/L (30-110); BLOOD UREA NITROGEN 17 mg/dL (7-17); CHLORIDE 92 mmol/L (98-107); Calcium 8.9 mg/dL (8.4-10.2); Creatinine 1 0.56 mg/dL (0.52-1.04); EST GLOMERULAR FILTRATION RATE > 60.0 ML/MIN; Glucose 401 mg/dL (74-106); LIPASE 74 U/L (23-300); Potassium 4.3 mmol/L (3.5-5.1); SGOT/AST 23 U/L (14-36); SGPT/ALT 17 U/L (0-35); SODIUM 137 mmol/L (137-145); Total Protein 7.3 g/dL (6.3-8.2)
[2023-07-02 12:02] LABS: Carbon Dioxide 32 mmol/L (22-30)
[2023-07-02 12:06] LABS: ANION GAP 17.3 MEQ/L (5-15)
--- NOTE | 2023-07-02 12:49 | XRAY ---
Indication: Rectal bleeding. History Crohn's disease/ulcerative colitis. Multiple contiguous axial images obtained through the abdomen and pelvis without contrast. Comparison: August 18, 2022. Lung bases demonstrates moderate bibasilar subsegmental atelectasis again with chronic right hemidiaphragm elevation. Heart remains borderline enlarged. Noncontrasted stomach and bowel loops nonobstructed with normal-appearing appendix. Again mildly distended gallbladder with 2 tiny gallstones and mild biliary prominence. Stable small left mid renal cyst. No free fluid/air. Remaining liver, gallbladder, pancreas, spleen, adrenal glands, kidneys, ureters, bladder, and uterus are unremarkable for noncontrast exam. Stable minimal aortoiliac calcifications without AAA. Osseous structures intact again with minimal degenerative changes throughout the spine. Impression: 1. Again mild distended gallbladder with tiny gallstones and mild biliary prominence. Sonogram may yield further information if not already performed. 2. Stable left renal cyst, chronic right hemidiaphragm elevation, borderline cardiomegaly, arteriosclerotic disease, and degenerative spondylosis. 3. Remaining CT abdomen/pelvis without contrast exam is negative.
[2023-07-02] MEDS ORDERED: solu-MEDROL 125 MG, Sterile H2O 10 ml 2 ML IV ONE ×2 (12:54)
[2023-07-02] MEDS ORDERED: solu-MEDROL ONE (12:58)
[2023-07-02] MEDS ORDERED: Sterile H2O 10 ml IJ ONE (12:58)
[2023-07-02 13:08] LABS: Slide Review 1 YES
[2023-07-02 13:47] VITALS: BP 140/80; PULSE 78; RESP 20
== END 2023-07-02 13:48 | disposition home or self-care (01) ==
LOC: ED 10:37
DX: K62.5 Hemorrhage of anus and rectum (principal); R10.31 Right lower quadrant pain; R10.32 Left lower quadrant pain; E78.5 Hyperlipidemia, unspecified; E11.42 Type 2 diabetes mellitus with diabetic polyneuropathy; I10 Essential (primary) hypertension; Z79.52 Long term (current) use of systemic steroids; Z79.01 Long term (current) use of anticoagulants; Z79.84 Long term (current) use of oral hypoglycemic drugs; Z79.4 Long term (current) use of insulin; Z79.899 Other long term (current) drug therapy; Z28.310 Unvaccinated for COVID-19
CPT/HCPCS: 36000; 36415; 74176; 80053; 82150; 83605; 83690; 85025; 87040; 96360; 96374; 99284; J2930

== ENCOUNTER 2023-07-30 09:04 | Emergency (ER) | payer MEDICARE ==
--- NOTE | 2023-07-30 09:13 | ERPHSYRPT ---
- History of Present Illness Time Seen by Provider: 07/30/23 09:13 Source: patient, family Exam Limitations: no limitations Physician History: This is a morbidly obese white female patient of Dr. Holguin who presents to the emergency department with sudden onset of significant shortness of breath when she was traveling from her home to a doctor's appointment in [facility]. Because of the degree of shortness of breath, she presented to our emergency department. She also states that she has had worsening bilateral lower extremity edema. Patient has multiple medical problems including atrial fibrillation, insulin-dependent diabetes, hypothyroidism, hyperlipidemia, hypertension, coronary artery disease, peripheral neuropathy, COPD and wears 4 L of oxygen via nasal cannula, asthma, degenerative disc disease, Crohn's disease, anxiety and depression, CHF, gastroesophageal reflux disease and she is taking Eliquis. She denies fevers. She denies cough. She denies nausea vomiting and diarrhea. She has no significant chest pain. Timing/Duration: today Activities at Onset: none Severity of Dyspnea-Max: moderate Severity of Dyspnea-Current: moderate Possible Cause: occasional episodes Modifying Factors: Improves With: activity (Worsens) Associated Symptoms: ankle swelling (Bilateral feet and ankle), No chest pain/discomfort, No hemoptysis, No calf pain Allergies/Adverse Reactions: cyclobenzaprine HCl [From Flexeril] Allergy (Mild, Verified 07/16/23 13:37) Rash metoclopramide [From Reglan] Allergy (Mild, Verified 07/16/23 13:37) Rash Sulfa (Sulfonamide Antibiotics) [Sulfa(Sulfonamide Antibiotics)] Allergy (Mild, Verified 07/16/23 13:37) Rash adhesive Allergy (Verified 07/16/23 13:37) Rash nalbuphine HCl [From Nubain] Adverse Reaction (Intermediate, Verified 07/16/23 13:37) Stomach Cramps patient states she had stomach "burning" and that her legs felt like "rubber bands" ciprofloxacin [From Cipro] Adverse Reaction (Mild, Verified 07/16/23 13:37) Rash meperidine HCl [From Demerol] Adverse Reaction (Mild, Verified 07/16/23 13:37) Vomiting coban Adverse Reaction (Uncoded 07/09/23 22:30) Itching Home Medications: Duloxetine HCl 60 mg PO DAILY 03/17/16 [History] Mesalamine [Pentasa] 500 mg PO BID 03/17/16 [History] Omeprazole 20 MG [Prilosec 20 mg] 20 mg PO BID 03/17/16 [History] Atorvastatin Calcium 10 mg PO DAILY 01/25/18 [History] Isosorbide Mononitrate 60 mg [Imdur 60MG] 60 mg PO DAILY 12/31/20 [History] Levothyroxine Sodium 25 Mcg [Synthroid 25 Mcg] 25 mcg PO DAILY 12/31/20 [History] Aripiprazole [Abilify] 2 mg PO DAILY 06/03/22 [History] Loperamide HCl [Loperamide] 4 mg PO Q12H PRN PRN 06/03/22 [History] Ranolazine 500 MG [Ranexa 500 MG] 500 mg PO BID 06/03/22 [History] azaTHIOprine [Azathioprine] 50 mg PO BID 06/03/22 [History] Apixaban [Eliquis 5 mg Tablet] 5 mg PO BID 08/16/22 [History] Acetaminophen 325 mg [Tylenol 325 mg] 2 tab PO Q4HPRN PRN 10/06/22 [History] Albuterol Sulfate [Proventil Hfa] 2 puff IH Q4HPRN PRN 10/06/22 [History] Fluticasone/Umeclidin/Vilanter [Trelegy Ellipta 100-62.5-25] 1 puff IH DAILY 01/29/23 [History] Insulin Glargine,Hum.rec.anlog [Basaglar Kwikpen U-100] 38 unit SQ HS 01/29/23 [History] Aspirin EC 81 mg [Ecotrin 81 mg] 81 mg PO DAILY 07/09/23 [History] Diclofenac Sodium [Pennsaid] See Rx Instructions .ROUTE .COMPLEX 07/09/23 [History] Gabapentin 600 mg PO TID 07/09/23 [History] Hydralazine HCl 25 mg PO Q6H PRN PRN 07/09/23 [History] Insulin Lispro [Humalog Kwikpen U-100] See Rx Instructions .ROUTE .COMPLEX 07/09/23 [History] carvediloL [Carvedilol] 6.25 mg PO BID 07/09/23 [History] methocarbamoL [Methocarbamol] 1 tab PO Q6HPRN PRN 07/09/23 [History] Hx Tetanus, Diphtheria Vaccination/Date Given: Yes Hx Influenza Vaccination/Date Given: No Hx Pneumococcal Vaccination/Date Given: No Travel Risk - International Travel Have you traveled outside of the country in past 3 weeks: No - Coronavirus Screening Are you exhibiting any of the following symptoms?: Yes Symptoms: Shortness of Breath Close contact with a COVID-19 positive Pt in past 14-21 Days: No - Vaccine Status Have you recieved a Covid-19 vaccination: No - Review of Systems Constitutional: No Symptoms Eyes: No Symptoms Ears, Nose, & Throat: No Symptoms Respiratory: Dyspnea on Exertion ([place]) Cardiac: No Symptoms Abdominal/Gastrointestinal: No Symptoms Genitourinary Symptoms: No Symptoms Musculoskeletal: No Symptoms Skin: No Symptoms Neurological: No Symptoms Psychological: No Symptoms Endocrine: No Symptoms Hematologic/Lymphatic: No Symptoms Immunological/Allergic: No Symptoms All Other Systems: Reviewed and Negative - Past Medical History Pertinent Past Medical History: Yes Neurological History: Migraines, Peripheral Neuropathy ENT History: Cataracts Cardiac History: Coronary Artery Disease, High Cholesterol, Hypertension, Myocardial Infarction ([place]), Other Respiratory History: Asthma, Bronchitis, CHF, COPD, Sleep Apnea Endocrine Medical History: Diabetes Type II Musculoskeletal History: Arthritis, Degenerative Disk Disease, Fibromyalgia, Osteoarthritis GI Medical History: Crohns Disease, Diverticulitis, GERD, Irritable Bowel History: No Pertinent History Psycho-Social History: Anxiety, Depression Female Reproductive Disorders: No Pertinent History Other Medical History: HX UTI, HX Yeast Infection, Neuropathy, degenerative joint disease - Past Surgical History Past Surgical History: Yes Neuro Surgical History: No Pertinent History Cardiac: Cardiac Catheterization Respiratory: No Pertinent History Gastrointestinal: No Pertinent History Genitourinary: No Pertinent History Musculoskeletal: No Pertinent History Female Surgical History: Dilation & Curettage, Section, Tubal Ligation Other Surgical History: KIDNEY STONE REMOVAL, right 2nd toe amputated 2021. heart cath x3, no stents, clot removal rt thigh artery - Social History Smoking Status: Never smoker How long have you smoked: years Exposure to second hand smoke: No Alcohol Use: None Drug Use: none Patient Lives Alone: Yes Significant Family History: no pertinent family hx, diabetes, hypertension - Nursing Vital Signs Nursing Vital Signs: Initial Vital Signs Pulse Rate 111 H 07/30/23 09:15 Respiratory Rate 39 H 07/30/23 09:15 Blood Pressure 151/123 07/30/23 09:15 O2 Sat by Pulse Oximetry 79 L 07/30/23 09:15 Pain Scale Pain Intensity 8 - Physical Exam General Appearance: mild distress, alert, anxiety, obese Eye Exam: PERRL/EOMI, eyes nml inspection Ears, Nose, Throat Exam: hearing grossly normal, normal ENT inspection, normal pharynx Neck Exam: normal inspection, non-tender, supple, full range of motion Respiratory Exam: respiratory distress, airway intact, diminished breath sounds (Bilateral bases), No chest tenderness Cardiovascular/Chest Exam: irregular Abdominal/Gastrointestinal Exam: soft, normal bowel sounds, No tenderness Rectal Exam: not done Extremity Exam: non-tender, normal range of motion, pedal edema (Bilateral feet and ankle edema) Neurologic Exam: alert, oriented x 3, cooperative, ancillary specialist II-XII nml as tested, nml cerebellar function, nml station & gait, sensation nml Skin Exam: normal color, warm, dry Lymphatic Exam: No adenopathy SpO2 Interpretation: normal O2 Delivery: Room Air - Course Nursing assessment & vital signs reviewed: Yes EKG Interpreted by Me: RATE ([id number]), A-fib, Other (No acute ischemic changes on today's twelve-lead EKG) Ordered Tests: Active Orders 24 hr Category Date Time Status Byproducts Maker STAT Care 07/30/23 09:23 Active EKG-ER Only STAT Care 07/30/23 09:23 Active IV Insertion STAT Care 07/30/23 09:23 Active Pulse Oximetry (ED) STAT Care 07/30/23 09:23 Active CHEST 1 VIEW (PORTABLE) Stat Exams 07/30/23 09:23 Completed CBC W DIFF Stat Lab 07/30/23 09:51 Completed CMP Stat Lab 07/30/23 09:51 Completed MONO SCREEN Stat Lab 07/30/23 09:51 Completed NT PRO BNPII Stat Lab 07/30/23 09:51 Completed PROTIME WITH INR Stat Lab 07/30/23 09:51 Completed TROPONIN Q4H Lab 07/30/23 09:51 Received TROPONIN Q4H Lab 07/30/23 13:30 Ordered TROPONIN Q4H Lab 07/30/23 17:30 Ordered Respiratory Therapy Assessment DAILY RT 07/30/23 09:19 Completed Medication Summary Discontinued Medications Generic Name Dose Route Start Last Admin Trade Name Fadia PRN Reason Stop Dose Admin Albuterol Sulfate 2.5 mg 07/30/23 09:20 07/30/23 09:21 Albuterol Sulfate 2.5 Mg/3 Ml Neb IH 07/30/23 09:21 2.5 mg STAT ONE Administration Albuterol Sulfate Confirm 07/30/23 09:24 Albuterol Sulfate 2.5 Mg/3 Ml Neb Administered 07/30/23 09:25 Dose 2.5 mg IH .STK-MED ONE Lab/Rad Data: Laboratory Result Diagrams 07/30/23 09:51 07/30/23 09:51 Laboratory Results 07/30/23 07/30/23 07/30/23 Range/Units 09:51 09:51 09:51 WBC (4.0-10.5) x10^3/uL RBC (4.1-5.4) x10^6/uL Hgb (12.0-16.0) g/dL Hct (35-47) % MCV (78-100) fL MCH (26-32) pg MCHC (32-36) g/dL RDW (11.5-14.0) % Plt Count (150-450) x10^3/uL MPV (7.5-11.0) fL Gran % (36.0-66.0) % Immature Gran % (Auto) (0.00-0.4) % Nucleat RBC Rel Count (0.00-0.1) % Eos # (Auto) (0-0.5) x10^3/uL Immature Gran # (Auto) (0.00-0.03) x10^3u/L Absolute Lymphs (auto) (1.0-4.6) x10^3/uL Absolute Monos (auto) (0.0-1.3) x10^3/uL Absolute Nucleated RBC (0.00-0.01) x10^3u/L Lymphocytes % (24.0-44.0) % Monocytes % (0.0-12.0) % Eosinophils % (0.00-5.0) % Basophils % (0.0-0.4) % Absolute Granulocytes (1.4-6.9) x10^3/uL Basophils # (0-0.4) x10^3/uL PT 11.4 (9.4-12.5) SECONDS INR 1.05 (0.8-3.0) Sodium (137-145) mmol/L Potassium (3.5-5.1) mmol/L Chloride (98-107) mmol/L Carbon Dioxide (22-30) mmol/L Anion Gap (5-15) MEQ/L BUN (7-17) mg/dL Creatinine (0.52-1.04) mg/dL Estimated GFR ML/MIN Glucose (74-106) mg/dL Calcium (8.4-10.2) mg/dL Total Bilirubin (0.2-1.3) mg/dL AST (14-36) U/L ALT (0-35) U/L Alkaline Phosphatase (38-126) U/L NT-Pro-B Natriuret Pep (<300) pg/mL Serum Total Protein (6.3-8.2) g/dL Albumin (3.5-5.0) g/dL Monoscreen NEGATIVE (NEGATIVE) Influenza Type A Ag NEGATIVE (NEGATIVE) Influenza Type B Ag NEGATIVE (NEGATIVE) RSV (PCR) NEGATIVE (NEGATIVE) SARS-CoV-2 (PCR) NEGATIVE (NEGATIVE) 07/30/23 07/30/23 Range/Units 09:51 09:51 WBC 6.0 (4.0-10.5) x10^3/uL RBC 3.83 L (4.1-5.4) x10^6/uL Hgb 9.1 L (12.0-16.0) g/dL Hct 33.1 L (35-47) % MCV 86.4 (78-100) fL MCH 23.8 L (26-32) pg MCHC 27.5 L (32-36) g/dL RDW 17.2 H (11.5-14.0) % Plt Count 197 (150-450) x10^3/uL MPV 11.3 H (7.5-11.0) fL Gran % 82.4 H (36.0-66.0) % Immature Gran % (Auto) 0.5 H (0.00-0.4) % Nucleat RBC Rel Count 0.0 (0.00-0.1) % Eos # (Auto) 0.22 (0-0.5) x10^3/uL Immature Gran # (Auto) 0.03 (0.00-0.03) x10^3u/L Absolute Lymphs (auto) 0.47 L (1.0-4.6) x10^3/uL Absolute Monos (auto) 0.31 (0.0-1.3) x10^3/uL Absolute Nucleated RBC 0.00 (0.00-0.01) x10^3u/L Lymphocytes % 7.9 L (24.0-44.0) % Monocytes % 5.2 (0.0-12.0) % Eosinophils % 3.7 (0.00-5.0) % Basophils % 0.3 (0.0-0.4) % Absolute Granulocytes 4.92 (1.4-6.9) x10^3/uL Basophils # 0.02 (0-0.4) x10^3/uL PT (9.4-12.5) SECONDS INR (0.8-3.0) Sodium 138 (137-145) mmol/L Potassium 4.0 (3.5-5.1) mmol/L Chloride 96 L (98-107) mmol/L Carbon Dioxide 39 H (22-30) mmol/L Anion Gap 6.1 (5-15) MEQ/L BUN 13 (7-17) mg/dL Creatinine 0.56 (0.52-1.04) mg/dL Estimated GFR > 60.0 ML/MIN Glucose 196 H (74-106) mg/dL Calcium 8.7 (8.4-10.2) mg/dL Total Bilirubin 0.60 (0.2-1.3) mg/dL AST 23 (14-36) U/L ALT 18 (0-35) U/L Alkaline Phosphatase 119 (38-126) U/L NT-Pro-B Natriuret Pep 1670 (<300) pg/mL Serum Total Protein 6.8 (6.3-8.2) g/dL Albumin 3.8 (3.5-5.0) g/dL Monoscreen (NEGATIVE) Influenza Type A Ag (NEGATIVE) Influenza Type B Ag (NEGATIVE) RSV (PCR) (NEGATIVE) SARS-CoV-2 (PCR) (NEGATIVE) - Progress Progress: improved, re-examined Air Movement: fair Progress Note: 07/30/23 10:13 This patient's medical issue is 1 of moderate complexity. Level complex in the work-up performed is based on review of the patient's past medical history, review the patient's medication list, review the patient's drug allergy list, history of present illness and physical findings on examination. The work-up includes placement of intravenous line, twelve-lead EKG, CBC, CMP, troponin level, BNP, viral studies, mono test. Chest x-ray was interpreted by the radiologist and I reviewed the impression. Patient states chronic right hemidiaphragm elevation, mild bibasilar atelectasis/scarring, borderline cardiomegaly. No new cardiopulmonary abnormalities. 07/30/23 10:41 I reviewed the results of the laboratory testing. So far patient has no evidence of any acute, emergent laboratory data results. The troponin is pending. Clinically, the patient was reexamined, she is breathing much better and feeling better. Her oxygenation saturation levels on her 4 L of oxygen via nasal cannula is 98 to 99%. Her heart rate is in the 80s to 90s. It is rate controlled atrial fibrillation. 07/30/23 10:44 The troponin level is also normal. Although there are no signs of pleural effusions on chest x-ray, the patient does have borderline cardiomegaly. I will provide her with a dose of intravenous Lasix prior to her discharge. Patient has chronic anemia and her hemoglobin level is in her typical range of approximately 8.5-9.5. Blood Culture(s) Obtained: Yes Antibiotics given: No Counseled pt/family regarding: lab results, diagnosis, rad results Medical Desision Making - Independent Historian Additional History obtained from: Child (Son) - Diagnostic Testing Diagnostic test were ordered, analyzed, and reviewed by me: Yes Radiological Interpretation: Reviewed by me, Teleradiologist Report - Risk of complications Low Risk: Low risk of morbidity from additional dx testing or treatment - Departure Departure Disposition: Home Clinical Impression: Chronic anemia, Shortness of breath, CHF (congestive heart failure) Condition: Stable Critical Care Time: No Referrals: CALVIN HOLGUIN [Primary Care Provider] - Follow up/PCP as directed Instructions: Heart Failure Additional Instructions: Wear your oxygen as prescribed via nasal cannula. Call your primary care provider today, 07/30/2023, to make arranges for follow-up appointment for further evaluation management. Discussed with your primary care provider the use of a diuretic. Continue your nebulizer treatments every 4 hours while you are awake for the next 48 hours.
[2023-07-30] MEDS ORDERED: PROVENTIL 2.5 MG/3 ML NEB IH ONE ×2 (09:20→09:24)
[2023-07-30 09:24] VITALS: TEMP 97
[2023-07-30 09:51] LABS: Absolute Neutrophil Ct (ANC) 4.92 x10^3/uL (1.4-6.9); BASOPHIL % 0.3 % (0.0-0.4); Basophil (Absolute #) 0.02 x10^3/uL (0-0.4); Eosinophil % 3.7 % (0.00-5.0); Eosinophil (Absolute #) 0.22 x10^3/uL (0-0.5); Hematocrit 33.1 % (35-47); Hemoglobin 9.1 g/dL (12.0-16.0); IMMATURE GRAN # 0.03 x10^3u/L (0.00-0.03); IMMATURE GRAN % 0.5 % (0.00-0.4); Lymphocyte (Absolute #) 0.47 x10^3/uL (1.0-4.6); Lymphocytes % 7.9 % (24.0-44.0); Mean Cell Volume 86.4 fL (78-100); Mean Corpuscular Hemoglobin 23.8 pg (26-32); Mean Corpuscular Hgb Concent. 27.5 g/dL (32-36); Mean Platelet Volume 11.3 fL (7.5-11.0); Monocyte (Absolute #) 0.31 x10^3/uL (0.0-1.3); Monocytes % 5.2 % (0.0-12.0); Neutrophil % 82.4 % (36.0-66.0); Platelet Count 197 x10^3/uL (150-450); Red Blood Count 3.83 x10^6/uL (4.1-5.4); Red Cell Distribution Width 17.2 % (11.5-14.0)
[2023-07-30 10:04] LABS: INR 1.05 (0.8-3.0); PROTIME 11.4 SECONDS (9.4-12.5)
--- NOTE | 2023-07-30 10:10 | XRAY ---
Indication: Short of breath. Comparison: July 09, 2023 Portable chest grossly unchanged again demonstrating chronic right hemidiaphragm elevation, mild bibasilar discoid atelectasis/scarring, and borderline cardiomegaly. Bony thorax intact again with osteopenia and mild degenerative changes. No new cardiopulmonary abnormalities.
[2023-07-30 10:12] LABS: ALBUMIN 3.8 g/dL (3.5-5.0); ALKALINE PHOSPHATASE 119 U/L (38-126); ANION GAP 6.1 MEQ/L (5-15); BLOOD UREA NITROGEN 13 mg/dL (7-17); CHLORIDE 96 mmol/L (98-107); Calcium 8.7 mg/dL (8.4-10.2); Carbon Dioxide 39 mmol/L (22-30); Creatinine 1 0.56 mg/dL (0.52-1.04); EST GLOMERULAR FILTRATION RATE > 60.0 ML/MIN; Glucose 196 mg/dL (74-106); NT PRO BNPII 1670 pg/mL (<300); SGOT/AST 23 U/L (14-36); SGPT/ALT 18 U/L (0-35); SODIUM 138 mmol/L (137-145); Total Protein 6.8 g/dL (6.3-8.2)
[2023-07-30 10:27] LABS: INFLUENZA A NEGATIVE (NEGATIVE); INFLUENZA B NEGATIVE (NEGATIVE); RESPIRATORY SYNCTIAL VIRUS NEGATIVE (NEGATIVE); SARS-CoV-2 Xpert Express NEGATIVE (NEGATIVE)
[2023-07-30] MEDS ORDERED: Lasix 40 MG/4 ML IV ONE (10:43)
[2023-07-30] MEDS ORDERED: solu-MEDROL 125 MG, Sterile H2O 10 ml 2 ML IV ONE ×2 (10:54)
[2023-07-30] MEDS ORDERED: Sterile H2O 10 ml IJ ONE (10:56)
[2023-07-30] MEDS ORDERED: solu-MEDROL ONE (10:56)
[2023-07-30 11:20] LABS: Slide Review 1 YES
[2023-07-30 11:54] VITALS: BP 122/84; PULSE 71; RESP 22; O2SAT 98
== END 2023-07-30 11:50 | disposition home or self-care (01) ==
LOC: ED 09:04
DX: D64.9 Anemia, unspecified (principal); R06.02 Shortness of breath; I11.0 Hypertensive heart disease with heart failure; I50.9 Heart failure, unspecified; J44.1 Chronic obstructive pulmonary disease with (acute) exacerbation; R60.0 Localized edema; E11.42 Type 2 diabetes mellitus with diabetic polyneuropathy; E78.5 Hyperlipidemia, unspecified; Z79.01 Long term (current) use of anticoagulants; Z79.4 Long term (current) use of insulin; Z79.899 Other long term (current) drug therapy; Z28.310 Unvaccinated for COVID-19
CPT/HCPCS: 0241U; 36000; 36415; 71045; 80053; 83880; 84484; 85025; 85610; 86308; 93005; 93041; 94640; 94760; 96374; 99284; J2930; J7609; A9270-GY

== ENCOUNTER 2023-08-17 15:33 | Inpatient (IN) | payer MEDICARE ==
[2023-08-17 16:43] LABS: ALBUMIN 3.6 g/dL (3.5-5.0); BILIRUBIN,TOTAL 0.4 mg/dL (0.2-1.3); Creatinine 1 0.55 mg/dL (0.52-1.04); EST GLOMERULAR FILTRATION RATE 103.6 ML/MIN; Potassium 4.5 mmol/L (3.5-5.1); Total Protein 6.7 g/dL (6.3-8.2)
[2023-08-17 16:46] LABS: Absolute Neutrophil Ct (ANC) 4.69 x10^3/uL (1.4-6.9); BASOPHIL % 0.5 % (0.0-0.4); Basophil (Absolute #) 0.03 x10^3/uL (0-0.4); Eosinophil % 3.3 % (0.00-5.0); Eosinophil (Absolute #) 0.21 x10^3/uL (0-0.5); Hematocrit 30.6 % (35-47); Hemoglobin 8.5 g/dL (12.0-16.0); IMMATURE GRAN # 0.02 x10^3u/L (0.00-0.03); IMMATURE GRAN % 0.3 % (0.00-0.4); Lymphocyte (Absolute #) 0.64 x10^3/uL (1.0-4.6); Lymphocytes % 10.1 % (24.0-44.0); Mean Corpuscular Hemoglobin 23.6 pg (26-32); Mean Corpuscular Hgb Concent. 27.8 g/dL (32-36); Mean Platelet Volume 12.8 fL (7.5-11.0); Monocyte (Absolute #) 0.73 x10^3/uL (0.0-1.3); Monocytes % 11.6 % (0.0-12.0); Neutrophil % 74.2 % (36.0-66.0); Platelet Count 144 x10^3/uL (150-450); Red Cell Distribution Width 17.5 % (11.5-14.0); White Blood Count 6.3 x10^3/uL (4.0-10.5)
--- NOTE | 2023-08-17 16:47 | ERPHSYRPT ---
- History of Present Illness Time Seen by Provider: 08/17/23 16:20 Historian: patient Exam Limitations: no limitations Patient Subjective Stated Complaint: PT states "I have had chest pain since last night. I took a nitro this morning and it did not help. I have gained quite a bit of weight in the past two months I was 270 lbs two months ago." Triage Nursing Assessment: Pt presented alert and oriented X 3, skin pwd. PT in no apparent respiratory distress. PT able to stand and ambulate slowly. PT bilat lower extremities has severe edema and are tight. Pt able to speak in clear full sentenecs. Physician History: Patient 63-year-old female with a history of CHF, diabetes, peripheral neuropathy, COPD presents to our ED for evaluation of chest pain and swelling to her bilateral lower extremities. Patient chest pain started last night. Chest pain has been substernal. No radiation. Mild nausea. No vomiting or diaphoresis. Patient has observed that she has gained approximately 74 pounds of water weight. Patient believes she is experiencing a CHF exacerbation. Symptoms are progressive. Symptoms are moderate in intensity. No specific worsening or improving factors. Patient voices no other complaints or concerns at this time. Portions of this note were created with voice recognition technology. There may be grammatical, spelling, punctuation or sound alike errors Timing/Duration: yesterday Activities at Onset: none Quality: aching Location: substernal Chest Pain Radiation: no radiation Severity of Pain-Max: moderate Severity of Pain-Current: mild Modifying Factors: Improves With: nothing Associated Symptoms: denies symptoms Prior Chest Pain/Cardiac Workup: no prior chest pain Nitro Today/Relief: no nitro taken today Aspirin Treatment Today: no aspirin today Allergies/Adverse Reactions: cyclobenzaprine HCl [From Flexeril] Allergy (Mild, Verified 07/16/23 13:37) Rash metoclopramide [From Reglan] Allergy (Mild, Verified 07/16/23 13:37) Rash Sulfa (Sulfonamide Antibiotics) [Sulfa(Sulfonamide Antibiotics)] Allergy (Mild, Verified 07/16/23 13:37) Rash adhesive Allergy (Verified 07/16/23 13:37) Rash nalbuphine HCl [From Nubain] Adverse Reaction (Intermediate, Verified 07/16/23 13:37) Stomach Cramps patient states she had stomach "burning" and that her legs felt like "rubber bands" ciprofloxacin [From Cipro] Adverse Reaction (Mild, Verified 07/16/23 13:37) Rash meperidine HCl [From Demerol] Adverse Reaction (Mild, Verified 07/16/23 13:37) Vomiting coban Adverse Reaction (Uncoded 07/09/23 22:30) Itching Home Medications: Duloxetine HCl 60 mg PO DAILY 03/17/16 [History] Mesalamine [Pentasa] 500 mg PO BID 03/17/16 [History] Omeprazole 20 MG [Prilosec 20 mg] 20 mg PO BID 03/17/16 [History] Atorvastatin Calcium 10 mg PO DAILY 01/25/18 [History] Isosorbide Mononitrate 60 mg [Imdur 60MG] 60 mg PO DAILY 12/31/20 [History] Levothyroxine Sodium 25 Mcg [Synthroid 25 Mcg] 25 mcg PO DAILY 12/31/20 [History] Aripiprazole [Abilify] 2 mg PO DAILY 06/03/22 [History] Loperamide HCl [Loperamide] 4 mg PO Q12H PRN PRN 06/03/22 [History] Ranolazine 500 MG [Ranexa 500 MG] 500 mg PO BID 06/03/22 [History] azaTHIOprine [Azathioprine] 50 mg PO BID 06/03/22 [History] Apixaban [Eliquis 5 mg Tablet] 5 mg PO BID 08/16/22 [History] Acetaminophen 325 mg [Tylenol 325 mg] 2 tab PO Q4HPRN PRN 10/06/22 [History] Albuterol Sulfate [Proventil Hfa] 2 puff IH Q4HPRN PRN 10/06/22 [History] Fluticasone/Umeclidin/Vilanter [Trelegy Ellipta 100-62.5-25] 1 puff IH DAILY 01/29/23 [History] Aspirin EC 81 mg [Ecotrin 81 mg] 81 mg PO DAILY 07/09/23 [History] Diclofenac Sodium [Pennsaid] See Rx Instructions .ROUTE .COMPLEX 07/09/23 [History] Gabapentin 300 mg PO TID 07/09/23 [History] Hydralazine HCl 25 mg PO Q6H PRN PRN 07/09/23 [History] Insulin Lispro [Humalog Kwikpen U-100] See Rx Instructions .ROUTE .COMPLEX 07/09/23 [History] carvediloL [Carvedilol] 6.25 mg PO BID 07/09/23 [History] methocarbamoL [Methocarbamol] 1 tab PO Q6HPRN PRN 07/09/23 [History] Ergocalciferol (Vitamin D2) [Vitamin D2] 1 cap PO WEEKLY 08/17/23 [History] Furosemide [Lasix] 40 mg PO DAILY 08/17/23 [History] Hydroxyzine HCl 25 mg [Atarax 25 mg] 25 mg PO QID PRN 08/17/23 [History] Insulin Glargine,Hum.rec.anlog [Toujeo Solostar] 46 units SQ HS 08/17/23 [History] Mesalamine [Pentasa] 500 mg PO BID 08/17/23 [History] Potassium Chloride 8 meq PO DAILY 08/17/23 [History] Hx Tetanus, Diphtheria Vaccination/Date Given: Yes Hx Influenza Vaccination/Date Given: Yes Hx Pneumococcal Vaccination/Date Given: No Immunizations Up to Date: No Travel Risk - International Travel Have you traveled outside of the country in past 3 weeks: No - Coronavirus Screening Are you exhibiting any of the following symptoms?: No Close contact with a COVID-19 positive Pt in past 14-21 Days: No - Vaccine Status Have you recieved a Covid-19 vaccination: No - Review of Systems Constitutional: No Symptoms, No Fever, No Chills Eyes: No Symptoms Ears, Nose, & Throat: No Symptoms Respiratory: No Symptoms, No Cough, No Dyspnea Cardiac: No Symptoms, No Chest Pain, No Edema, No Syncope Abdominal/Gastrointestinal: No Symptoms, No Abdominal Pain, No Nausea, No Vomiting, No Diarrhea Genitourinary Symptoms: No Symptoms, No Dysuria Musculoskeletal: No Symptoms, No Back Pain, No Neck Pain Skin: No Symptoms, No Rash Neurological: No Symptoms, No Dizziness, No Focal Weakness, No Sensory Changes Psychological: No Symptoms Endocrine: No Symptoms Hematologic/Lymphatic: No Symptoms Immunological/Allergic: No Symptoms All Other Systems: Reviewed and Negative - Past Medical History Pertinent Past Medical History: Yes Neurological History: Migraines, Peripheral Neuropathy ENT History: Cataracts Cardiac History: Coronary Artery Disease, High Cholesterol, Hypertension, Myocardial Infarction ([place]), Other Respiratory History: Asthma, Bronchitis, CHF, COPD, Sleep Apnea Endocrine Medical History: Diabetes Type II Musculoskeletal History: Arthritis, Degenerative Disk Disease, Fibromyalgia, Osteoarthritis GI Medical History: Crohns Disease, Diverticulitis, GERD, Irritable Bowel History: No Pertinent History Psycho-Social History: Anxiety, Depression Female Reproductive Disorders: No Pertinent History Other Medical History: HX UTI, HX Yeast Infection, Neuropathy, degenerative joint disease - Past Surgical History Past Surgical History: Yes Neuro Surgical History: No Pertinent History Cardiac: Cardiac Catheterization Respiratory: No Pertinent History Gastrointestinal: No Pertinent History Genitourinary: No Pertinent History Musculoskeletal: No Pertinent History Female Surgical History: Dilation & Curettage, Section, Tubal Ligation Other Surgical History: KIDNEY STONE REMOVAL, right 2nd toe amputated 2021. h eart cath x3, no stents, clot removal rt thigh artery - Social History Smoking Status: Never smoker How long have you smoked: years Exposure to second hand smoke: No Alcohol Use: None Drug Use: none Patient Lives Alone: Yes Significant Family History: no pertinent family hx, diabetes, hypertension - Nursing Vital Signs Nursing Vital Signs: Initial Vital Signs Temperature 97.2 F 08/17/23 15:40 Pulse Rate 94 H 08/17/23 15:40 Respiratory Rate 24 08/17/23 15:40 Blood Pressure 162/94 08/17/23 15:40 O2 Sat by Pulse Oximetry 98 08/17/23 15:40 Pain Scale Pain Intensity 8 - Physical Exam General Appearance: no apparent distress, alert Eye Exam: PERRL/EOMI, eyes nml inspection Ears, Nose, Throat Exam: normal ENT inspection, moist mucous membranes Neck Exam: normal inspection, non-tender, supple, full range of motion Respiratory Exam: normal breath sounds, lungs clear, airway intact, No respiratory distress Cardiovascular Exam: regular rate/rhythm, normal heart sounds, normal peripheral pulses Gastrointestinal/Abdomen Exam: soft, No tenderness, No mass Back Exam: normal inspection, No CVA tenderness, No vertebral tenderness Extremity Exam: normal inspection, normal range of motion, swelling, other (3+ lower pitting pitting edema) Neurologic Exam: alert, oriented x 3, cooperative, normal mood/affect, sensation nml, No motor deficits Skin Exam: normal color, warm, dry Lymphatic Exam: adenopathy SpO2 Interpretation: normal SpO2: 100 O2 Delivery: Room Air - Course Nursing assessment & vital signs reviewed: Yes - Radiology Exams Chest X-ray Interpretation: Teleradiologist Report (Chest x-ray unchanged from previous) Ordered Tests: Active Orders 24 hr Category Date Time Status Shells Inspector STAT Care 08/17/23 16:07 Active EKG-ER Only STAT Care 08/17/23 16:06 Active IV Insertion STAT Care 08/17/23 16:06 Active Pulse Oximetry (ED) STAT Care 08/17/23 16:06 Active CHEST 1 VIEW (PORTABLE) Stat Exams 08/17/23 18:38 Taken CBC W DIFF Stat Lab 08/17/23 16:25 Completed CMP Stat Lab 08/17/23 16:25 Completed D-DIMER QUANTITATIVE Stat Lab 08/17/23 16:25 Completed NT PRO BNPII Stat Lab 08/17/23 Completed TROPONIN Q4H Lab 08/17/23 16:25 Completed TROPONIN Q4H Lab 08/17/23 19:25 Completed TROPONIN Q4H Lab 08/18/23 00:15 Ordered Transfer Order Routine Transfer 08/17/23 Ordered Medication Summary Generic Name Dose Route Start Last Admin Trade Name Freq PRN Reason Stop Dose Admin Hydrocodone Bitart/Acetaminophen 1 tablet 08/17/23 19:41 08/17/23 19:43 Hydrocodone/Acetamin 10-325 Mg Tablet PO 08/22/23 19:40 1 tablet Q4H PRN PRN Administration PAIN Discontinued Medications Generic Name Dose Route Start Last Admin Trade Name Freq PRN Reason Stop Dose Admin Aspirin 324 mg 08/17/23 19:06 08/17/23 19:12 Aspirin 81 Mg Tab.Chew PO 08/17/23 19:07 324 mg STAT ONE Administration Aspirin Confirm 08/17/23 19:11 Aspirin 81 Mg Tab.Chew Administered 08/17/23 19:12 Dose 324 mg .ROUTE .STK-MED ONE Ketorolac Tromethamine 30 mg 08/17/23 17:36 08/17/23 17:38 Ketorolac Tromethamine 30 Mg/Ml Inj IV 08/17/23 17:37 30 mg STAT ONE Administration Ketorolac Tromethamine Confirm 08/17/23 17:37 Ketorolac Tromethamine 30 Mg/Ml Inj Administered 08/17/23 17:38 Dose 30 mg .ROUTE .STK-MED ONE Nitroglycerin 1 gm 08/17/23 19:06 08/17/23 19:13 Nitroglycerin 1 Gm Packet TOP 08/17/23 19:07 1 gm STAT ONE Administration Nitroglycerin Confirm 08/17/23 19:12 Nitroglycerin 1 Gm Packet Administered 08/17/23 19:13 Dose 1 gm .ROUTE .STK-MED ONE Lab/Rad Data: Laboratory Result Diagrams 08/17/23 16:25 08/17/23 16:25 Laboratory Results 08/17/23 08/17/23 08/17/23 Range/Units Unknown 19:25 16:25 WBC (4.0-10.5) x10^3/uL RBC (4.1-5.4) x10^6/uL Hgb (12.0-16.0) g/dL Hct (35-47) % MCV (78-100) fL MCH (26-32) pg MCHC (32-36) g/dL RDW (11.5-14.0) % Plt Count (150-450) x10^3/uL MPV (7.5-11.0) fL Gran % (36.0-66.0) % Immature Gran % (Auto) (0.00-0.4) % Nucleat RBC Rel Count (0.00-0.1) % Eos # (Auto) (0-0.5) x10^3/uL Immature Gran # (Auto) (0.00-0.03) x10^3u/L Absolute Lymphs (auto) (1.0-4.6) x10^3/uL Absolute Monos (auto) (0.0-1.3) x10^3/uL Absolute Nucleated RBC (0.00-0.01) x10^3u/L Lymphocytes % (24.0-44.0) % Monocytes % (0.0-12.0) % Eosinophils % (0.00-5.0) % Basophils % (0.0-0.4) % Absolute Granulocytes (1.4-6.9) x10^3/uL Basophils # (0-0.4) x10^3/uL D-Dimer (0.0-0.50) mg/L Sodium (137-145) mmol/L Potassium (3.5-5.1) mmol/L Chloride (98-107) mmol/L Carbon Dioxide (22-30) mmol/L Anion Gap (5-15) MEQ/L BUN (7-17) mg/dL Creatinine (0.52-1.04) mg/dL Estimated GFR ML/MIN Glucose (74-106) mg/dL Calcium (8.4-10.2) mg/dL Total Bilirubin (0.2-1.3) mg/dL AST (14-36) U/L ALT (0-35) U/L Alkaline Phosphatase (38-126) U/L Troponin I < 0.012 < 0.012 (0.000-0.034) ng/mL NT-Pro-B Natriuret Pep 1340 (<300) pg/mL Serum Total Protein (6.3-8.2) g/dL Albumin (3.5-5.0) g/dL 08/17/23 08/17/23 08/17/23 Range/Units 16:25 16:25 16:25 WBC 6.3 (4.0-10.5) x10^3/uL RBC 3.60 L (4.1-5.4) x10^6/uL Hgb 8.5 L (12.0-16.0) g/dL Hct 30.6 L (35-47) % MCV 85.0 (78-100) fL MCH 23.6 L (26-32) pg MCHC 27.8 L (32-36) g/dL RDW 17.5 H (11.5-14.0) % Plt Count 144 L (150-450) x10^3/uL MPV 12.8 H (7.5-11.0) fL Gran % 74.2 H (36.0-66.0) % Immature Gran % (Auto) 0.3 (0.00-0.4) % Nucleat RBC Rel Count 0.0 (0.00-0.1) % Eos # (Auto) 0.21 (0-0.5) x10^3/uL Immature Gran # (Auto) 0.02 (0.00-0.03) x10^3u/L Absolute Lymphs (auto) 0.64 L (1.0-4.6) x10^3/uL Absolute Monos (auto) 0.73 (0.0-1.3) x10^3/uL Absolute Nucleated RBC 0.00 (0.00-0.01) x10^3u/L Lymphocytes % 10.1 L (24.0-44.0) % Monocytes % 11.6 (0.0-12.0) % Eosinophils % 3.3 (0.00-5.0) % Basophils % 0.5 (0.0-0.4) % Absolute Granulocytes 4.69 (1.4-6.9) x10^3/uL Basophils # 0.03 (0-0.4) x10^3/uL D-Dimer 0.35 (0.0-0.50) mg/L Sodium 136 L (137-145) mmol/L Potassium 4.5 (3.5-5.1) mmol/L Chloride 92 L (98-107) mmol/L Carbon Dioxide 36 H (22-30) mmol/L Anion Gap 12.0 (5-15) MEQ/L BUN 16 (7-17) mg/dL Creatinine 0.55 (0.52-1.04) mg/dL Estimated GFR 103.6 ML/MIN Glucose 418 H (74-106) mg/dL Calcium 9.0 (8.4-10.2) mg/dL Total Bilirubin 0.40 (0.2-1.3) mg/dL AST 19 (14-36) U/L ALT 18 (0-35) U/L Alkaline Phosphatase 113 (38-126) U/L Troponin I (0.000-0.034) ng/mL NT-Pro-B Natriuret Pep (<300) pg/mL Serum Total Protein 6.7 (6.3-8.2) g/dL Albumin 3.6 (3.5-5.0) g/dL - Progress Progress: improved Air Movement: good Progress Note: Patient is a 63-year-old female BMI of 52.7 presents to our ED for evaluation of chest pain. Patient advises that her lower extremities have been significantly swollen. Patient reports a weight gain of approximately 70 pounds in the last 2 months. Physical exam otherwise nonremarkable. EKG shows atrial fibrillation. Patient has a history of chronic A-fib and is currently anticoagulated. Chest x-ray unchanged. Patient's hemoglobin is 8.5. Chemistry otherwise essentially nonremarkable. D-dimer negative. Initial 2 troponins negative. Patient has been typed and screened due to the anemia. Patient received aspirin and nitroglycerin. Per patient's request she requested hydrocodone instead of morphine for her chest pain. Patient also received Toradol for pain control. Patient's heart score is a 4. Patient will be admitted for cardiac rule out. Case discussed with Dr. Solomon at 8:40 PM. Patient excepted to observation. Plan of care discussed with patient. She agrees to admission to [facility] for further evaluation and treatment. Portions of this note were created with voice recognition technology. There may be grammatical, spelling, punctuation or sound alike errors Complexity of problems addressed is moderate acute complicated Complexity of data reviewed and analyzed is extensive. Test ordered test revi ewed. Results analyzed and correlated clinically with history and physical examination. Plan of care/management discussed with hospitalist who excepts admission to observation. Risk of complication and a risk of morbidity/mortality of patient management is high. Patient requires hospitalization for further evaluation and treatment Vital stable. Diagnosis chest pain/acute coronary syndrome. Time spent admit patient approximately 20 minutes. Plan of care established for shared decision making. Portions of this note were created with voice recognition technology. There may be grammatical, spelling, punctuation or sound alike errors 08/17/23 20:44 Blood Culture(s) Obtained: No Antibiotics given: No Discussed with Dr.: Other (Dr. Solomon at 8:40pm) Counseled pt/family regarding: lab results, diagnosis, need for follow-up - Departure Departure Disposition: Observation Clinical Impression: Normocytic anemia, Thrombocytopenia, Hyperglycemia, Elevated brain natriuretic peptide (BNP) level, Chest pain, Acute coronary syndrome Condition: Stable Critical Care Time: No Referrals: CALVIN PALOMINO [Primary Care Provider] - Follow up/PCP as directed
[2023-08-17] MEDS ORDERED: TORAdol 30 mg Injection IV ONE (17:36)
[2023-08-17] MEDS ORDERED: TORAdol 30 mg Injection ONE (17:37)
[2023-08-17] MEDS ORDERED: BABY ASPIRIN 81 MG CHEW PO ONE (19:06)
[2023-08-17] MEDS ORDERED: NITRO-BID 2% UD PACKETS TOP ONE (19:06)
[2023-08-17] MEDS ORDERED: BABY ASPIRIN 81 MG CHEW ONE (19:11)
[2023-08-17] MEDS ORDERED: NITRO-BID 2% UD PACKETS ONE (19:12)
[2023-08-17] MEDS ORDERED: HYDROCODONE-ACETAMIN 10-325 MG ONE (19:41)
[2023-08-17] MEDS ORDERED: HYDROCODONE-ACETAMIN 10-325 MG PO PRN (19:41)
--- NOTE | 2023-08-17 23:53 | PCM.HP ---
History of Present Illness - Chief Complaint Chief Complaint: Chest pain, acute coronary syndrome History of Present Illness: Ms. Muro is a 63 year old female with a past medical history significant for poorly controlled diabetes, hypertension, hyperlipidemia and obesity who presents to the hospital with complaints of a several month history of increasing weight up to 75lbs, abdominal distention and swelling/pain of her lower extremities. She also reports some vague chest pain and shortness of breath associated with her symptoms. She denies any excessive salt intake in her diet. BNP was somewhat elevated so she was recommended for admission to the hospital with deal with her symptoms. She currently denies any chest pain or palpitations. She denies any nausea, vomiting or diarrhea. She denies any dysuria, hematuria or foamy/frothy appearing urine. Previous HbA1c 12.3 with elevated urine albumin creatinine ratios. - Review of Systems Constitutional: No Symptoms Eyes: No Symptoms Ears, Nose, & Throat: No Symptoms Respiratory: Short Of Breath Cardiac: Chest Pain Abdominal/Gastrointestinal: No Symptoms Genitourinary Symptoms: No Symptoms Musculoskeletal: No Symptoms Skin: No Symptoms, Cellulitis Neurological: No Symptoms Psychological: No Symptoms Endocrine: No Symptoms Hematologic/Lymphatic: No Symptoms Immunological/Allergic: No Symptoms Medications & Allergies Home Medications: Home Medication List Duloxetine HCl 60 mg PO DAILY 03/17/16 [History Confirmed 08/17/23] Mesalamine [Pentasa] 500 mg PO BID 03/17/16 [History Confirmed 08/17/23] Omeprazole 20 MG [Prilosec 20 mg] 20 mg PO BID 03/17/16 [History Confirmed 08/17/23] Atorvastatin Calcium 10 mg PO DAILY 01/25/18 [History Confirmed 08/17/23] Isosorbide Mononitrate 60 mg [Imdur 60MG] 60 mg PO DAILY 12/31/20 [History Confirmed 08/17/23] Levothyroxine Sodium 25 Mcg [Synthroid 25 Mcg] 25 mcg PO DAILY 12/31/20 [History Confirmed 08/17/23] Aripiprazole [Abilify] 2 mg PO DAILY 06/03/22 [History Confirmed 08/17/23] Loperamide HCl [Loperamide] 4 mg PO Q12H PRN PRN 06/03/22 [History Confirmed 08/17/23] Ranolazine 500 MG [Ranexa 500 MG] 500 mg PO BID 06/03/22 [History Confirmed 08/17/23] azaTHIOprine [Azathioprine] 50 mg PO BID 06/03/22 [History Confirmed 08/17/23] Apixaban [Eliquis 5 mg Tablet] 5 mg PO BID 08/16/22 [History Confirmed 08/17/23] Acetaminophen 325 mg [Tylenol 325 mg] 2 tab PO Q4HPRN PRN 10/06/22 [History Confirmed 08/17/23] Albuterol Sulfate [Proventil Hfa] 2 puff IH Q4HPRN PRN 10/06/22 [History Confirmed 08/17/23] Fluticasone/Umeclidin/Vilanter [Trelegy Ellipta 100-62.5-25] 1 puff IH DAILY 01/29/23 [History Confirmed 08/17/23] Aspirin EC 81 mg [Ecotrin 81 mg] 81 mg PO DAILY 07/09/23 [History Confirmed 08/17/23] Diclofenac Sodium [Pennsaid] See Rx Instructions .ROUTE .COMPLEX 07/09/23 [History Confirmed 08/17/23] Gabapentin 300 mg PO TID 07/09/23 [History Confirmed 08/17/23] Hydralazine HCl 25 mg PO Q6H PRN PRN 07/09/23 [History Confirmed 08/17/23] Insulin Lispro [Humalog Kwikpen U-100] See Rx Instructions .ROUTE .COMPLEX 07/09/23 [History Confirmed 08/17/23] carvediloL [Carvedilol] 6.25 mg PO BID 07/09/23 [History Confirmed 08/17/23] methocarbamoL [Methocarbamol] 1 tab PO Q6HPRN PRN 07/09/23 [History Confirmed 08/17/23] Ergocalciferol (Vitamin D2) [Vitamin D2] 1 cap PO WEEKLY 08/17/23 [History Confirmed 08/17/23] Furosemide [Lasix] 40 mg PO DAILY 08/17/23 [History Confirmed 08/17/23] Insulin Glargine,Hum.rec.anlog [Flavio Duque] 46 units SQ HS 08/17/23 [History Confirmed 08/17/23] Potassium Chloride 8 meq PO DAILY 08/17/23 [History Confirmed 08/17/23] Allergies/Adverse Reactions: Allergies Allergy/AdvReac Type Severity Reaction Status Date / Time cyclobenzaprine HCl Allergy Mild Rash Verified 07/16/23 13:37 [From Flexeril] metoclopramide [From Reglan] Allergy Mild Rash Verified 07/16/23 13:37 Sulfa (Sulfonamide Allergy Mild Rash Verified 07/16/23 13:37 Antibiotics) [Sulfa(Sulfonamide Antibiotics)] adhesive Allergy Rash Verified 07/16/23 13:37 nalbuphine HCl [From Nubain] AdvReac Intermediate Stomach Verified 07/16/23 13:37 Cramps ciprofloxacin [From Cipro] AdvReac Mild Rash Verified 07/16/23 13:37 meperidine HCl [From Demerol] AdvReac Mild Vomiting Verified 07/16/23 13:37 coban AdvReac Itching Uncoded 07/09/23 22:30 - Past Medical History Past Medical History: Yes Neurological History: Migraines, Peripheral Neuropathy ENT History: Cataracts Cardiac History: Arrhythmia, Coronary Artery Disease, High Cholesterol, Hyper tension, Myocardial Infarction (NH), Other Respiratory History: Asthma, Bronchitis, CHF, COPD, Sleep Apnea Endocrine Medical History: Diabetes Type II Musculoskelatal History: Arthritis, Degenerative Disk Disease, Fibromyalgia, Osteoarthritis GI Medical History: Crohns Disease, Diverticulitis, GERD, Irritable Bowel History: No Pertinent History Pyscho-Social History: Anxiety, Depression Reproductive Disorders: No Pertinent History Comment: HX UTI, HX Yeast Infection, Neuropathy, degenerative joint disease - Female History Are you now?: No - Past Surgical History Past Surgical History: Yes Neuro Surgical History: No Pertinent History Cardiac History: Cardiac Catheterization Respiratory Surgery: No Pertinent History GI Surgical History: No Pertinent History Genitourinary Surgical Hx: No Pertinent History Musculskeletal Surgical Hx: No Pertinent History Female Surgical History: Dilation & Curettage, Section, Tubal Ligation Other Surgical History: KIDNEY STONE REMOVAL, right 2nd toe amputated 2021. heart cath x3, no stents, clot removal rt thigh artery - Social History Smoking Status: Never smoker How long have you smoked: years Exposure to second hand smoke: No Alcohol: None Drug Use: none Significant Family History: no pertinent family hx, diabetes, hypertension - Physical Exam Vital Signs: Vital Signs - 24 hr Temp Pulse Pulse Resp BP BP Pulse Ox 08/17/23 21:49 97.1 F 97 H 28 H 129/87 98 08/17/23 21:45 112 H 24 98 08/17/23 21:00 120 H 23 157/98 96 08/17/23 20:48 100 08/17/23 20:32 108 H 26 H 155/82 96 08/17/23 20:01 169 H 28 H 108/47 98 08/17/23 19:30 131 H 28 H 162/121 98 08/17/23 19:09 102 H 21 184/118 98 08/17/23 19:01 108 H 24 136/91 98 08/17/23 18:00 120 H 22 132/103 98 08/17/23 17:45 116 H 22 124/96 100 08/17/23 17:31 112 H 143/77 100 08/17/23 17:15 80 24 180/71 99 08/17/23 17:00 97 H 27 H 191/76 100 08/17/23 16:55 90 23 186/94 100 08/17/23 16:17 100 08/17/23 15:40 97.2 F 94 H 102 H 24 162/94 98 General Appearance: no apparent distress Neurologic Exam: alert, oriented x 3 Ears, Nose, Throat Exam: moist mucous membranes Neck Exam: non-tender, supple Respiratory Exam: normal breath sounds Cardiovascular Exam: regular rate/rhythm Gastrointestinal/Abdomen Exam: soft, distention Extremity Exam: normal inspection, pedal edema Skin Exam: normal color Results - Labs Lab/Micro Results: Lab Results-Last 24 Hours 08/17/23 08/17/23 08/17/23 Range/Units 16:25 16:25 16:25 WBC 6.3 (4.0-10.5) x10^3/uL RBC 3.60 L (4.1-5.4) x10^6/uL Hgb 8.5 L (12.0-16.0) g/dL Hct 30.6 L (35-47) % MCV 85.0 (78-100) fL MCH 23.6 L (26-32) pg MCHC 27.8 L (32-36) g/dL RDW 17.5 H (11.5-14.0) % Plt Count 144 L (150-450) x10^3/uL MPV 12.8 H (7.5-11.0) fL Gran % 74.2 H (36.0-66.0) % Immature Gran % (Auto) 0.3 (0.00-0.4) % Nucleat RBC Rel Count 0.0 (0.00-0.1) % Eos # (Auto) 0.21 (0-0.5) x10^3/uL Immature Gran # (Auto) 0.02 (0.00-0.03) x10^3u/L Absolute Lymphs (auto) 0.64 L (1.0-4.6) x10^3/uL Absolute Monos (auto) 0.73 (0.0-1.3) x10^3/uL Absolute Nucleated RBC 0.00 (0.00-0.01) x10^3u/L Lymphocytes % 10.1 L (24.0-44.0) % Monocytes % 11.6 (0.0-12.0) % Eosinophils % 3.3 (0.00-5.0) % Basophils % 0.5 (0.0-0.4) % Absolute Granulocytes 4.69 (1.4-6.9) x10^3/uL Basophils # 0.03 (0-0.4) x10^3/uL D-Dimer 0.35 (0.0-0.50) mg/L Sodium 136 L (137-145) mmol/L Potassium 4.5 (3.5-5.1) mmol/L Chloride 92 L (98-107) mmol/L Carbon Dioxide 36 H (22-30) mmol/L Anion Gap 12.0 (5-15) MEQ/L BUN 16 (7-17) mg/dL Creatinine 0.55 (0.52-1.04) mg/dL Estimated GFR 103.6 ML/MIN Glucose 418 H (74-106) mg/dL POC Glucometer (74 to 106) mg/dL Calcium 9.0 (8.4-10.2) mg/dL Total Bilirubin 0.40 (0.2-1.3) mg/dL AST 19 (14-36) U/L ALT 18 (0-35) U/L Alkaline Phosphatase 113 (38-126) U/L Troponin I (0.000-0.034) ng/mL NT-Pro-B Natriuret Pep (<300) pg/mL Serum Total Protein 6.7 (6.3-8.2) g/dL Albumin 3.6 (3.5-5.0) g/dL 08/17/23 08/17/23 08/17/23 Range/Units 16:25 19:25 22:07 WBC (4.0-10.5) x10^3/uL RBC (4.1-5.4) x10^6/uL Hgb (12.0-16.0) g/dL Hct (35-47) % MCV (78-100) fL MCH (26-32) pg MCHC (32-36) g/dL RDW (11.5-14.0) % Plt Count (150-450) x10^3/uL MPV (7.5-11.0) fL Gran % (36.0-66.0) % Immature Gran % (Auto) (0.00-0.4) % Nucleat RBC Rel Count (0.00-0.1) % Eos # (Auto) (0-0.5) x10^3/uL Immature Gran # (Auto) (0.00-0.03) x10^3u/L Absolute Lymphs (auto) (1.0-4.6) x10^3/uL Absolute Monos (auto) (0.0-1.3) x10^3/uL Absolute Nucleated RBC (0.00-0.01) x10^3u/L Lymphocytes % (24.0-44.0) % Monocytes % (0.0-12.0) % Eosinophils % (0.00-5.0) % Basophils % (0.0-0.4) % Absolute Granulocytes (1.4-6.9) x10^3/uL Basophils # (0-0.4) x10^3/uL D-Dimer (0.0-0.50) mg/L Sodium (137-145) mmol/L Potassium (3.5-5.1) mmol/L Chloride (98-107) mmol/L Carbon Dioxide (22-30) mmol/L Anion Gap (5-15) MEQ/L BUN (7-17) mg/dL Creatinine (0.52-1.04) mg/dL Estimated GFR ML/MIN Glucose (74-106) mg/dL POC Glucometer 316 H (74 to 106) mg/dL Calcium (8.4-10.2) mg/dL Total Bilirubin (0.2-1.3) mg/dL AST (14-36) U/L ALT (0-35) U/L Alkaline Phosphatase (38-126) U/L Troponin I < 0.012 < 0.012 (0.000-0.034) ng/mL NT-Pro-B Natriuret Pep (<300) pg/mL Serum Total Protein (6.3-8.2) g/dL Albumin (3.5-5.0) g/dL 08/17/23 Range/Units Unknown WBC (4.0-10.5) x10^3/uL RBC (4.1-5.4) x10^6/uL Hgb (12.0-16.0) g/dL Hct (35-47) % MCV (78-100) fL MCH (26-32) pg MCHC (32-36) g/dL RDW (11.5-14.0) % Plt Count (150-450) x10^3/uL MPV (7.5-11.0) fL Gran % (36.0-66.0) % Immature Gran % (Auto) (0.00-0.4) % Nucleat RBC Rel Count (0.00-0.1) % Eos # (Auto) (0-0.5) x10^3/uL Immature Gran # (Auto) (0.00-0.03) x10^3u/L Absolute Lymphs (auto) (1.0-4.6) x10^3/uL Absolute Monos (auto) (0.0-1.3) x10^3/uL Absolute Nucleated RBC (0.00-0.01) x10^3u/L Lymphocytes % (24.0-44.0) % Monocytes % (0.0-12.0) % Eosinophils % (0.00-5.0) % Basophils % (0.0-0.4) % Absolute Granulocytes (1.4-6.9) x10^3/uL Basophils # (0-0.4) x10^3/uL D-Dimer (0.0-0.50) mg/L Sodium (137-145) mmol/L Potassium (3.5-5.1) mmol/L Chloride (98-107) mmol/L Carbon Dioxide (22-30) mmol/L Anion Gap (5-15) MEQ/L BUN (7-17) mg/dL Creatinine (0.52-1.04) mg/dL Estimated GFR ML/MIN Glucose (74-106) mg/dL POC Glucometer (74 to 106) mg/dL Calcium (8.4-10.2) mg/dL Total Bilirubin (0.2-1.3) mg/dL AST (14-36) U/L ALT (0-35) U/L Alkaline Phosphatase (38-126) U/L Troponin I (0.000-0.034) ng/mL NT-Pro-B Natriuret Pep 1340 (<300) pg/mL Serum Total Protein (6.3-8.2) g/dL Albumin (3.5-5.0) g/dL - Radiology Impressions Radiology Exams & Impressions: Radiology Procedures Category Date Time Status CHEST 1 VIEW (PORTABLE) Stat Exams 08/17/23 18:38 Taken - Other Procedures and Tests Respiratory Therapy 08/17/23 22:18 Oxygen Nasal Cannula 4 lpm Respiratory Therapy Assessment DAILY Assessment/Plan (1) Anasarca Current Visit: Yes Status: Acute Assessment & Plan: Likely from nephrotic range proteinuria versus CHF versus underlying liver disease with 3+ proteinuria, abdominal distention and weight gain 1. Attempt diuresis with Bumex 1mg IV q8 2. Limit sodium intake 3. Check echo 4. Check urine protein:Cr ratio to rule out nephrosis Code(s): R60.1 - GENERALIZED EDEMA (2) Hypertensive urgency Current Visit: No Status: Acute Assessment & Plan: Likely worsened by fluid overload and dietary indiscretion with salt 1. Continue bp meds 2. Attempt diuresis 3. Monitor blood pressure results Code(s): I16.0 - HYPERTENSIVE URGENCY (3) Diabetes mellitus type II, uncontrolled Current Visit: No Status: Chronic Qualifiers: Assessment & Plan: Poorly controlled with likely nephropathy 1. Check HbA1c 2. Check urine protein:Cr ratio 3. Start JORGE A or ARB Code(s): CAA2608 -
[2023-08-17] MEDS ORDERED: Apresoline 25 MG TABLET PO PRN (23:59)
[2023-08-18] MEDS ORDERED: BUMEX 1 MG ONE (00:07)
[2023-08-18] MEDS: BUMEX 1 MG IV SCH ×5 (00:09→23:25)
[2023-08-18] MEDS: NORCO 5/325 MG PO PRN ×3 (00:44→18:47)
[2023-08-18 02:20] LABS: ALBUMIN 3.7 g/dL (3.5-5.0); Calcium 9.2 mg/dL (8.4-10.2); Creatinine 1 0.53 mg/dL (0.52-1.04); EST GLOMERULAR FILTRATION RATE 104.5 ML/MIN; MAGNESIUM 1.4 mg/dL (1.6-2.3); PHOSPHOROUS 4.2 mg/dL (2.5-4.5); Potassium 4.1 mmol/L (3.5-5.1)
[2023-08-18 02:37] LABS: ANION GAP 14.1 MEQ/L (5-15)
[2023-08-18] MEDS ORDERED: Coreg PO ONE (04:29)
[2023-08-18] MEDS ORDERED: MAG-OX 400 PO ONE (07:24)
[2023-08-18 07:34] LABS: Hematocrit 32.5 % (35-47); Hemoglobin 8.8 g/dL (12.0-16.0); Mean Cell Volume 86.7 fL (78-100); Mean Corpuscular Hemoglobin 23.5 pg (26-32); Mean Corpuscular Hgb Concent. 27.1 g/dL (32-36); Platelet Count 128 x10^3/uL (150-450); Red Blood Count 3.75 x10^6/uL (4.1-5.4); Red Cell Distribution Width 17.3 % (11.5-14.0); White Blood Count 8.6 x10^3/uL (4.0-10.5)
[2023-08-18] MEDS: Advair Hfa 115/21 Common canister IH SCH ×2 (07:57→18:40)
[2023-08-18 08:23] LABS: Slide Review YES
--- NOTE | 2023-08-18 08:39 | XRAY ---
Indication: Chest pain. Comparison: July 30, 2023 Portable chest unchanged again demonstrating chronic right hemidiaphragm elevation, bibasilar discoid atelectasis/scarring, cardiomegaly, osteopenia, and mild bony degenerative changes. No new cardiopulmonary abnormalities.
[2023-08-18] MEDS ORDERED: VITAMIN D2 PO SCH (10:00)
[2023-08-18] MEDS ORDERED: Coreg PO SCH ×2 (10:00→22:00)
[2023-08-18] MEDS: Abilify 10 MG PO SCH (10:26)
[2023-08-18] MEDS: ECOTRIN 81 MG PO SCH (10:27)
[2023-08-18] MEDS: Zocor 10MG PO SCH (10:27)
[2023-08-18] MEDS: ELIQUIS 2.5 MG TABLET PO SCH ×2 (10:27→22:13)
[2023-08-18] MEDS: Imdur 60MG PO SCH (10:27)
[2023-08-18] MEDS: Protonix 40MG Tablet PO SCH ×2 (10:27→22:13)
[2023-08-18] MEDS: SYNTHROID 25 MCG PO SCH (10:27)
[2023-08-18] MEDS: Cymbalta 30 MG Capsule PO SCH (10:27)
[2023-08-18] MEDS: TYLENOL 325 MG PO PRN ×2 (11:26→18:47)
[2023-08-18] MEDS ORDERED: LOPRESSOR INJECTION IV ONE (11:27)
[2023-08-18] MEDS: BACIGUENT 30 GM TP SCH (11:27)
--- NOTE | 2023-08-18 12:22 | XRAY ---
Indication: Wound. 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 Head 5th metatarsal and lesser base 5th proximal phalanx demonstrates bony moth-eaten appearance, possible osteomyelitis in right clinical setting. No other bony, articular, or soft tissue abnormalities.
[2023-08-18 13:03] LABS: Appearance Cloudy (Clear); Bacteria Many /HPF (None Seen); Bilirubin Negative (Negative); Blood Negative (Negative); Epithelial Cells None Seen /HPF (None Seen); Glucose, Urine >=1000 mg/dL (Negative); Hyaline Casts NONE SEEN /LPF (0-2); Ketones Trace (Negative); Leukocyte Esterase Trace (Negative); Nitrite Positive (Negative); Protein,Urine Dip Trace (Negative); RBC 0-2 /HPF (0-5)
[2023-08-18 13:04] LABS: ADD URINE CULTURE? ORDERED SEPARATELY (NO)
[2023-08-18] MEDS: HUMALOG SQ SCH ×2 (13:26→17:16)
[2023-08-18 13:49] LABS: CREATININE,URINE RANDOM 50.7 MG/DL
--- NOTE | 2023-08-18 14:29 | PCM.NOTE ---
Date and Time: 08/18/23 1406 Subjective Assessment: 08/17/23 Ms. Muro is a 63 year old female with a past medical history significant for poorly controlled diabetes, hypertension, hyperlipidemia and obesity who presents to the hospital with complaints of a several month history of increasing weight up to 75lbs, abdominal distention and swelling/pain of her l ower extremities. She also reports some vague chest pain and shortness of breath associated with her symptoms. She denies any excessive salt intake in her diet. BNP was somewhat elevated so she was recommended for admission to the hospital with deal with her symptoms. She currently denies any chest pain or palpitations. She denies any nausea, vomiting or diarrhea. She denies any dysuria, hematuria or foamy/frothy appearing urine. Previous HbA1c 12.3 with elevated urine albumin creatinine ratios. 08/18/23 Pt resting in the chair. She is c/o SOB and CP that radiates to her back. She is in new onset afib RVR per EKG. Cardiology consulted and trop x 3 ordered, last 2 have been negative. Echo pending. Cardiology recommendations pending. One time dose of metoprolol ordered IV. EF44% on last echo 08/17/22. Current echo shows EF at 50%. Right foot XR shows possible osteomyelitis of right 5th digit. Podiatry consulted for further evaluation. <STEFAN MARCIAL - Last Filed: 08/18/23 14:06> Date and Time: 08/18/23 1822 <AGUILA SORENSEN - Last Filed: 08/18/23 18:24> - Review of Systems Constitutional: No Fever, No Chills Eyes: No Symptoms Ears, Nose, & Throat: No Symptoms Respiratory: Short Of Breath, No Cough Cardiac: Chest Pain, Edema, No Syncope Abdominal/Gastrointestinal: No Nausea, No Vomiting, No Diarrhea Genitourinary Symptoms: No Dysuria Musculoskeletal: No Back Pain, No Neck Pain Skin: No Rash Neurological: No Dizziness, No Focal Weakness, No Sensory Changes Psychological: No Symptoms Endocrine: No Symptoms Hematologic/Lymphatic: No Symptoms Immunological/Allergic: No Symptoms <STEFAN MARCIAL - Last Filed: 08/18/23 14:06> Objective Exam General Appearance: no apparent distress, mild distress, alert Neurologic Exam: alert, oriented x 3, cooperative, normal mood/affect, nml cerebellar function, sensation nml, No motor deficits Skin Exam: normal color, warm, dry, other (right foot 5th digit black area of concern on side of toe.) Eye Exam: PERRL, EOMI, eyes nml inspection Ears, Nose, Throat Exam: normal ENT inspection, pharynx normal, moist mucous membranes Neck Exam: normal inspection, non-tender, supple, full range of motion Respiratory Exam: normal breath sounds, lungs clear, No respiratory distress Cardiovascular Exam: normal heart sounds, irregular Gastrointestinal/Abdomen Exam: soft, No tenderness, No mass Extremity Exam: normal inspection, normal range of motion Back Exam: normal inspection, normal range of motion, No CVA tenderness, No vertebral tenderness Pelvic Exam: deferred Rectal Exam: deferred <STEFAN MARCIAL - Last Filed: 08/18/23 14:06> OBJECTIVE DATA Vital Signs: Vital Signs - 24 hr Temp Pulse Pulse Resp BP BP Pulse Ox 08/18/23 12:00 97.3 F 120 H 44 H 122/65 94 L 08/18/23 08:02 107 H 27 H 97 08/18/23 07:40 98.2 F 125 H 20 135/81 94 L 08/18/23 04:00 97.3 F 144 H 32 H 174/91 95 08/17/23 21:50 98 08/17/23 21:49 97.1 F 97 H 28 H 129/87 98 08/17/23 21:45 112 H 24 98 08/17/23 21:00 120 H 23 157/98 96 08/17/23 20:48 100 08/17/23 20:32 108 H 26 H 155/82 96 08/17/23 20:01 169 H 28 H 108/47 98 08/17/23 19:30 131 H 28 H 162/121 98 08/17/23 19:09 102 H 21 184/118 98 08/17/23 19:01 108 H 24 136/91 98 08/17/23 18:00 120 H 22 132/103 98 08/17/23 17:45 116 H 22 124/96 100 08/17/23 17:31 112 H 143/77 100 08/17/23 17:15 80 24 180/71 99 08/17/23 17:00 97 H 27 H 191/76 100 11/07/23 16:55 90 23 186/94 100 08/17/23 16:17 100 08/17/23 15:40 97.2 F 94 H 102 H 24 162/94 98 Pain Assessment - Last Documented Pain Intensity 8 Pain Scale Used 0-10 Pain Scale Intake and Output: Intake & Output 08/16/23 08/17/23 08/18/23 08/19/23 11:59 11:59 11:59 11:59 Intake Total 920 60 Balance 920 60 Weight 158.1 kg Lab Results: Lab Results-Last 24 Hours 08/17/23 08/17/23 08/17/23 Range/Units 10:05 16:25 16:25 WBC 6.3 (4.0-10.5) x10^3/uL RBC 3.60 L (4.1-5.4) x10^6/uL Hgb 8.5 L (12.0-16.0) g/dL Hct 30.6 L (35-47) % MCV 85.0 (78-100) fL MCH 23.6 L (26-32) pg MCHC 27.8 L (32-36) g/dL RDW 17.5 H (11.5-14.0) % Plt Count 144 L (150-450) x10^3/uL MPV 12.8 H (7.5-11.0) fL Gran % 74.2 H (36.0-66.0) % Immature Gran % (Auto) 0.3 (0.00-0.4) % Nucleat RBC Rel Count 0.0 (0.00-0.1) % Eos # (Auto) 0.21 (0-0.5) x10^3/uL Immature Gran # (Auto) 0.02 (0.00-0.03) x10^3u/L Absolute Lymphs (auto) 0.64 L (1.0-4.6) x10^3/uL Absolute Monos (auto) 0.73 (0.0-1.3) x10^3/uL Absolute Nucleated RBC 0.00 (0.00-0.01) x10^3u/L Lymphocytes % 10.1 L (24.0-44.0) % Monocytes % 11.6 (0.0-12.0) % Eosinophils % 3.3 (0.00-5.0) % Basophils % 0.5 (0.0-0.4) % Absolute Granulocytes 4.69 (1.4-6.9) x10^3/uL Basophils # 0.03 (0-0.4) x10^3/uL D-Dimer (0.0-0.50) mg/L Sodium 136 L (137-145) mmol/L Potassium 4.5 (3.5-5.1) mmol/L Chloride 92 L (98-107) mmol/L Carbon Dioxide 36 H (22-30) mmol/L Anion Gap 12.0 (5-15) MEQ/L BUN 16 (7-17) mg/dL Creatinine 0.55 (0.52-1.04) mg/dL Estimated GFR 103.6 ML/MIN Glucose 418 H (74-106) mg/dL POC Glucometer (74 to 106) mg/dL Calcium 9.0 (8.4-10.2) mg/dL Phosphorus (2.5-4.5) mg/dL Magnesium (1.6-2.3) mg/dL Total Bilirubin 0.40 (0.2-1.3) mg/dL AST 19 (14-36) U/L ALT 18 (0-35) U/L Alkaline Phosphatase 113 (38-126) U/L Troponin I (0.000-0.034) ng/mL NT-Pro-B Natriuret Pep (<300) pg/mL Serum Total Protein 6.7 (6.3-8.2) g/dL Albumin 3.6 (3.5-5.0) g/dL Urine Color (Yellow) Urine Appearance (Clear) Urine pH (4.6-8.0) Ur Specific [place] (1.005-1.030) Urine Protein (Negative) Urine Glucose (UA) (Negative) mg/dL Urine Ketones (Negative) Urine Blood (Negative) Urine Nitrite (Negative) Urine Bilirubin (Negative) Urine Urobilinogen (0.2) mg/dL Ur Leukocyte Esterase (Negative) U Hyaline Cast (Auto) (0-2) /LPF Urine Microscopic RBC (0-5) /HPF Urine Microscopic WBC (0-5) /HPF Ur Epithelial Cells (None Seen) /HPF Urine Bacteria (None Seen) /HPF Urine Culture Reflexed (NO) Ur Random Creatinine 50.7 MG/DL U Random Total Protein 17 H (0-12) mg/dL Urine Sodium 124 H (30-90) mmol/L Slides for Path Review 08/17/23 08/17/23 08/17/23 Range/Units 16:25 16:25 19:25 WBC (4.0-10.5) x10^3/uL RBC (4.1-5.4) x10^6/uL Hgb (12.0-16.0) g/dL Hct (35-47) % MCV (78-100) fL MCH (26-32) pg MCHC (32-36) g/dL RDW (11.5-14.0) % Plt Count (150-450) x10^3/uL MPV (7.5-11.0) fL Gran % (36.0-66.0) % Immature Gran % (Auto) (0.00-0.4) % Nucleat RBC Rel Count (0.00-0.1) % Eos # (Auto) (0-0.5) x10^3/uL Immature Gran # (Auto) (0.00-0.03) x10^3u/L Absolute Lymphs (auto) (1.0-4.6) x10^3/uL Absolute Monos (auto) (0.0-1.3) x10^3/uL Absolute Nucleated RBC (0.00-0.01) x10^3u/L Lymphocytes % (24.0-44.0) % Monocytes % (0.0-12.0) % Eosinophils % (0.00-5.0) % Basophils % (0.0-0.4) % Absolute Granulocytes (1.4-6.9) x10^3/uL Basophils # (0-0.4) x10^3/uL D-Dimer 0.35 (0.0-0.50) mg/L Sodium (137-145) mmol/L Potassium (3.5-5.1) mmol/L Chloride (98-107) mmol/L Carbon Dioxide (22-30) mmol/L Anion Gap (5-15) MEQ/L BUN (7-17) mg/dL Creatinine (0.52-1.04) mg/dL Estimated GFR ML/MIN Glucose (74-106) mg/dL POC Glucometer (74 to 106) mg/dL Calcium (8.4-10.2) mg/dL Phosphorus (2.5-4.5) mg/dL Magnesium (1.6-2.3) mg/dL Total Bilirubin (0.2-1.3) mg/dL AST (14-36) U/L ALT (0-35) U/L Alkaline Phosphatase (38-126) U/L Troponin I < 0.012 < 0.012 (0.000-0.034) ng/mL NT-Pro-B Natriuret Pep (<300) pg/mL Serum Total Protein (6.3-8.2) g/dL Albumin (3.5-5.0) g/dL Urine Color (Yellow) Urine Appearance (Clear) Urine pH (4.6-8.0) Ur Specific [place] (1.005-1.030) Urine Protein (Negative) Urine Glucose (UA) (Negative) mg/dL Urine Ketones (Negative) Urine Blood (Negative) Urine Nitrite (Negative) Urine Bilirubin (Negative) Urine Urobilinogen (0.2) mg/dL Ur Leukocyte Esterase (Negative) U Hyaline Cast (Auto) (0-2) /LPF Urine Microscopic RBC (0-5) /HPF Urine Microscopic WBC (0-5) /HPF Ur Epithelial Cells (None Seen) /HPF Urine Bacteria (None Seen) /HPF Urine Culture Reflexed (NO) Ur Random Creatinine MG/DL U Random Total Protein (0-12) mg/dL Urine Sodium (30-90) mmol/L Slides for Path Review 08/17/23 08/17/23 08/18/23 Range/Units 22:07 Unknown 02:04 WBC (4.0-10.5) x10^3/uL RBC (4.1-5.4) x10^6/uL Hgb (12.0-16.0) g/dL Hct (35-47) % MCV (78-100) fL MCH (26-32) pg MCHC (32-36) g/dL RDW (11.5-14.0) % Plt Count (150-450) x10^3/uL MPV (7.5-11.0) fL Gran % (36.0-66.0) % Immature Gran % (Auto) (0.00-0.4) % Nucleat RBC Rel Count (0.00-0.1) % Eos # (Auto) (0-0.5) x10^3/uL Immature Gran # (Auto) (0.00-0.03) x10^3u/L Absolute Lymphs (auto) (1.0-4.6) x10^3/uL Absolute Monos (auto) (0.0-1.3) x10^3/uL Absolute Nucleated RBC (0.00-0.01) x10^3u/L Lymphocytes % (24.0-44.0) % Monocytes % (0.0-12.0) % Eosinophils % (0.00-5.0) % Basophils % (0.0-0.4) % Absolute Granulocytes (1.4-6.9) x10^3/uL Basophils # (0-0.4) x10^3/uL D-Dimer (0.0-0.50) mg/L Sodium (137-145) mmol/L Potassium (3.5-5.1) mmol/L Chloride (98-107) mmol/L Carbon Dioxide (22-30) mmol/L Anion Gap (5-15) MEQ/L BUN (7-17) mg/dL Creatinine (0.52-1.04) mg/dL Estimated GFR ML/MIN Glucose (74-106) mg/dL POC Glucometer 316 H (74 to 106) mg/dL Calcium (8.4-10.2) mg/dL Phosphorus (2.5-4.5) mg/dL Magnesium (1.6-2.3) mg/dL Total Bilirubin (0.2-1.3) mg/dL AST (14-36) U/L ALT (0-35) U/L Alkaline Phosphatase (38-126) U/L Troponin I < 0.012 (0.000-0.034) ng/mL NT-Pro-B Natriuret Pep 1340 (<300) pg/mL Serum Total Protein (6.3-8.2) g/dL Albumin (3.5-5.0) g/dL Urine Color (Yellow) Urine Appearance (Clear) Urine pH (4.6-8.0) Ur Specific [place] (1.005-1.030) Urine Protein (Negative) Urine Glucose (UA) (Negative) mg/dL Urine Ketones (Negative) Urine Blood (Negative) Urine Nitrite (Negative) Urine Bilirubin (Negative) Urine Urobilinogen (0.2) mg/dL Ur Leukocyte Esterase (Negative) U Hyaline Cast (Auto) (0-2) /LPF Urine Microscopic RBC (0-5) /HPF Urine Microscopic WBC (0-5) /HPF Ur Epithelial Cells (None Seen) /HPF Urine Bacteria (None Seen) /HPF Urine Culture Reflexed (NO) Ur Random Creatinine MG/DL U Random Total Protein (0-12) mg/dL Urine Sodium (30-90) mmol/L Slides for Path Review 08/18/23 08/18/23 08/18/23 Range/Units 02:04 07:07 07:28 WBC 8.6 (4.0-10.5) x10^3/uL RBC 3.75 L (4.1-5.4) x10^6/uL Hgb 8.8 L (12.0-16.0) g/dL Hct 32.5 L (35-47) % MCV 86.7 (78-100) fL MCH 23.5 L (26-32) pg MCHC 27.1 L (32-36) g/dL RDW 17.3 H (11.5-14.0) % Plt Count 128 L (150-450) x10^3/uL MPV (7.5-11.0) fL Gran % (36.0-66.0) % Immature Gran % (Auto) (0.00-0.4) % Nucleat RBC Rel Count (0.00-0.1) % Eos # (Auto) (0-0.5) x10^3/uL Immature Gran # (Auto) (0.00-0.03) x10^3u/L Absolute Lymphs (auto) (1.0-4.6) x10^3/uL Absolute Monos (auto) (0.0-1.3) x10^3/uL Absolute Nucleated RBC (0.00-0.01) x10^3u/L Lymphocytes % (24.0-44.0) % Monocytes % (0.0-12.0) % Eosinophils % (0.00-5.0) % Basophils % (0.0-0.4) % Absolute Granulocytes (1.4-6.9) x10^3/uL Basophils # (0-0.4) x10^3/uL D-Dimer (0.0-0.50) mg/L Sodium 135 L (137-145) mmol/L Potassium 4.1 (3.5-5.1) mmol/L Chloride 89 L (98-107) mmol/L Carbon Dioxide 36 H (22-30) mmol/L Anion Gap 14.1 (5-15) MEQ/L BUN 15 (7-17) mg/dL Creatinine 0.53 (0.52-1.04) mg/dL Estimated GFR 104.5 ML/MIN Glucose 301 H (74-106) mg/dL POC Glucometer 298 H (74 to 106) mg/dL Calcium 9.2 (8.4-10.2) mg/dL Phosphorus 4.2 (2.5-4.5) mg/dL Magnesium 1.4 L (1.6-2.3) mg/dL Total Bilirubin (0.2-1.3) mg/dL AST (14-36) U/L ALT (0-35) U/L Alkaline Phosphatase (38-126) U/L Troponin I (0.000-0.034) ng/mL NT-Pro-B Natriuret Pep (<300) pg/mL Serum Total Protein (6.3-8.2) g/dL Albumin 3.7 (3.5-5.0) g/dL Urine Color (Yellow) Urine Appearance (Clear) Urine pH (4.6-8.0) Ur Specific [place] (1.005-1.030) Urine Protein (Negative) Urine Glucose (UA) (Negative) mg/dL Urine Ketones (Negative) Urine Blood (Negative) Urine Nitrite (Negative) Urine Bilirubin (Negative) Urine Urobilinogen (0.2) mg/dL Ur Leukocyte Esterase (Negative) U Hyaline Cast (Auto) (0-2) /LPF Urine Microscopic RBC (0-5) /HPF Urine Microscopic WBC (0-5) /HPF Ur Epithelial Cells (None Seen) /HPF Urine Bacteria (None Seen) /HPF Urine Culture Reflexed (NO) Ur Random Creatinine MG/DL U Random Total Protein (0-12) mg/dL Urine Sodium (30-90) mmol/L Slides for Path Review YES 08/18/23 08/18/23 08/18/23 Range/Units 10:05 12:31 12:35 WBC (4.0-10.5) x10^3/uL RBC (4.1-5.4) x10^6/uL Hgb (12.0-16.0) g/dL Hct (35-47) % MCV (78-100) fL MCH (26-32) pg MCHC (32-36) g/dL RDW (11.5-14.0) % Plt Count (150-450) x10^3/uL MPV (7.5-11.0) fL Gran % (36.0-66.0) % Immature Gran % (Auto) (0.00-0.4) % Nucleat RBC Rel Count (0.00-0.1) % Eos # (Auto) (0-0.5) x10^3/uL Immature Gran # (Auto) (0.00-0.03) x10^3u/L Absolute Lymphs (auto) (1.0-4.6) x10^3/uL Absolute Monos (auto) (0.0-1.3) x10^3/uL Absolute Nucleated RBC (0.00-0.01) x10^3u/L Lymphocytes % (24.0-44.0) % Monocytes % (0.0-12.0) % Eosinophils % (0.00-5.0) % Basophils % (0.0-0.4) % Absolute Granulocytes (1.4-6.9) x10^3/uL Basophils # (0-0.4) x10^3/uL D-Dimer (0.0-0.50) mg/L Sodium (137-145) mmol/L Potassium (3.5-5.1) mmol/L Chloride (98-107) mmol/L Carbon Dioxide (22-30) mmol/L Anion Gap (5-15) MEQ/L BUN (7-17) mg/dL Creatinine (0.52-1.04) mg/dL Estimated GFR ML/MIN Glucose (74-106) mg/dL POC Glucometer 339 H (74 to 106) mg/dL Calcium (8.4-10.2) mg/dL Phosphorus (2.5-4.5) mg/dL Magnesium (1.6-2.3) mg/dL Total Bilirubin (0.2-1.3) mg/dL AST (14-36) U/L ALT (0-35) U/L Alkaline Phosphatase (38-126) U/L Troponin I < 0.012 (0.000-0.034) ng/mL NT-Pro-B Natriuret Pep (<300) pg/mL Serum Total Protein (6.3-8.2) g/dL Albumin (3.5-5.0) g/dL Urine Color Yellow (Yellow) Urine Appearance Cloudy A (Clear) Urine pH 7.0 (4.6-8.0) Ur Specific [place] 1.020 (1.005-1.030) Urine Protein Trace A (Negative) Urine Glucose (UA) >=1000 A (Negative) mg/dL Urine Ketones Trace A (Negative) Urine Blood Negative (Negative) Urine Nitrite Positive A (Negative) Urine Bilirubin Negative (Negative) Urine Urobilinogen 1.0 A (0.2) mg/dL Ur Leukocyte Esterase Trace A (Negative) U Hyaline Cast (Auto) NONE SEEN (0-2) /LPF Urine Microscopic RBC 0-2 (0-5) /HPF Urine Microscopic WBC 11-20 A (0-5) /HPF Ur Epithelial Cells None Seen (None Seen) /HPF Urine Bacteria Many A (None Seen) /HPF Urine Culture Reflexed ORDERED SEPARATELY (NO) Ur Random Creatinine MG/DL U Random Total Protein (0-12) mg/dL Urine Sodium (30-90) mmol/L Slides for Path Review Radiology Exams: Radiology Procedures Category Date Time Status CHEST 1 VIEW (PORTABLE) Stat Exams 08/17/23 18:38 Completed ECHO W/2D AND DOPPLER [US] Urgent Exams 08/18/23 07:29 Taken FOOT (MINIMUM 3 VIEWS) Urgent Exams 08/18/23 10:08 Completed Multi-Disciplinary Progress Notes: Multi-Disciplinary Progress Notes 08/18/23 11:40 Case Management Note by Lyric Hauser PATIENT CURRENTLY NOT FEELING WELL. PATIENT HAS C/O CHEST PAIN. NO AWARE- PATIENT REPORTS SHE WAS DOING WELL AT [facility] AND PLANS TO RETURN THERE AT TIME OF DC. WILL DO MORE IN DEPTH ASSESS WHEN PATIENT IS FEELING BETTER Initialized on 08/18/23 11:40 - END OF NOTE <STEFAN MARCIAL - Last Filed: 08/18/23 14:06> Vital Signs: Vital Signs - 24 hr Temp Pulse Resp BP BP Pulse Ox 08/18/23 16:00 97.5 F 118 H 31 H 141/78 95 08/18/23 12:00 97.3 F 120 H 44 H 122/65 94 L 08/18/23 08:02 107 H 27 H 97 08/18/23 07:40 98.2 F 125 H 20 135/81 94 L 08/18/23 04:00 97.3 F 144 H 32 H 174/91 95 08/17/23 21:50 98 08/17/23 21:49 97.1 F 97 H 28 H 129/87 98 08/17/23 21:45 112 H 24 98 08/17/23 21:00 120 H 23 157/98 96 08/17/23 20:48 100 08/17/23 20:32 108 H 26 H 155/82 96 08/17/23 20:01 169 H 28 H 108/47 98 08/17/23 19:30 131 H 28 H 162/121 98 08/17/23 19:09 102 H 21 184/118 98 08/17/23 19:01 108 H 24 136/91 98 Pain Assessment - Last Documented Pain Intensity 8 Pain Scale Used 0-10 Pain Scale Intake and Output: Intake & Output 08/16/23 08/17/23 08/18/23 08/19/23 11:59 11:59 11:59 11:59 Intake Total 920 1367 Output Total 1200 Balance 920 167 Weight 158.1 kg Lab Results: Lab Results-Last 24 Hours 08/17/23 08/17/23 08/17/23 Range/Units 10:05 19:25 22:07 WBC (4.0-10.5) x10^3/uL RBC (4.1-5.4) x10^6/uL Hgb (12.0-16.0) g/dL Hct (35-47) % MCV (78-100) fL MCH (26-32) pg MCHC (32-36) g/dL RDW (11.5-14.0) % Plt Count (150-450) x10^3/uL Sodium (137-145) mmol/L Potassium (3.5-5.1) mmol/L Chloride (98-107) mmol/L Carbon Dioxide (22-30) mmol/L Anion Gap (5-15) MEQ/L BUN (7-17) mg/dL Creatinine (0.52-1.04) mg/dL Estimated GFR ML/MIN Glucose (74-106) mg/dL POC Glucometer 316 H (74 to 106) mg/dL Lactic Acid (0.4-2.0) Calcium (8.4-10.2) mg/dL Phosphorus (2.5-4.5) mg/dL Magnesium (1.6-2.3) mg/dL Troponin I < 0.012 (0.000-0.034) ng/mL Albumin (3.5-5.0) g/dL Urine Color (Yellow) Urine Appearance (Clear) Urine pH (4.6-8.0) Ur Specific [place] (1.005-1.030) Urine Protein (Negative) Urine Glucose (UA) (Negative) mg/dL Urine Ketones (Negative) Urine Blood (Negative) Urine Nitrite (Negative) Urine Bilirubin (Negative) Urine Urobilinogen (0.2) mg/dL Ur Leukocyte Esterase (Negative) U Hyaline Cast (Auto) (0-2) /LPF Urine Microscopic RBC (0-5) /HPF Urine Microscopic WBC (0-5) /HPF Ur Epithelial Cells (None Seen) /HPF Urine Bacteria (None Seen) /HPF Urine Culture Reflexed (NO) Ur Random Creatinine 50.7 MG/DL U Random Total Protein 17 H (0-12) mg/dL Urine Sodium 124 H (30-90) mmol/L Slides for Path Review 08/18/23 08/18/23 08/18/23 Range/Units 02:04 02:04 07:07 WBC (4.0-10.5) x10^3/uL RBC (4.1-5.4) x10^6/uL Hgb (12.0-16.0) g/dL Hct (35-47) % MCV (78-100) fL MCH (26-32) pg MCHC (32-36) g/dL RDW (11.5-14.0) % Plt Count (150-450) x10^3/uL Sodium 135 L (137-145) mmol/L Potassium 4.1 (3.5-5.1) mmol/L Chloride 89 L (98-107) mmol/L Carbon Dioxide 36 H (22-30) mmol/L Anion Gap 14.1 (5-15) MEQ/L BUN 15 (7-17) mg/dL Creatinine 0.53 (0.52-1.04) mg/dL Estimated GFR 104.5 ML/MIN Glucose 301 H (74-106) mg/dL POC Glucometer 298 H (74 to 106) mg/dL Lactic Acid (0.4-2.0) Calcium 9.2 (8.4-10.2) mg/dL Phosphorus 4.2 (2.5-4.5) mg/dL Magnesium 1.4 L (1.6-2.3) mg/dL Troponin I < 0.012 (0.000-0.034) ng/mL Albumin 3.7 (3.5-5.0) g/dL Urine Color (Yellow) Urine Appearance (Clear) Urine pH (4.6-8.0) Ur Specific [place] (1.005-1.030) Urine Protein (Negative) Urine Glucose (UA) (Negative) mg/dL Urine Ketones (Negative) Urine Blood (Negative) Urine Nitrite (Negative) Urine Bilirubin (Negative) Urine Urobilinogen (0.2) mg/dL Ur Leukocyte Esterase (Negative) U Hyaline Cast (Auto) (0-2) /LPF Urine Microscopic RBC (0-5) /HPF Urine Microscopic WBC (0-5) /HPF Ur Epithelial Cells (None Seen) /HPF Urine Bacteria (None Seen) /HPF Urine Culture Reflexed (NO) Ur Random Creatinine MG/DL U Random Total Protein (0-12) mg/dL Urine Sodium (30-90) mmol/L Slides for Path Review 08/18/23 08/18/23 08/18/23 Range/Units 07:28 10:05 12:31 WBC 8.6 (4.0-10.5) x10^3/uL RBC 3.75 L (4.1-5.4) x10^6/uL Hgb 8.8 L (12.0-16.0) g/dL Hct 32.5 L (35-47) % MCV 86.7 (78-100) fL MCH 23.5 L (26-32) pg MCHC 27.1 L (32-36) g/dL RDW 17.3 H (11.5-14.0) % Plt Count 128 L (150-450) x10^3/uL Sodium (137-145) mmol/L Potassium (3.5-5.1) mmol/L Chloride (98-107) mmol/L Carbon Dioxide (22-30) mmol/L Anion Gap (5-15) MEQ/L BUN (7-17) mg/dL Creatinine (0.52-1.04) mg/dL Estimated GFR ML/MIN Glucose (74-106) mg/dL POC Glucometer (74 to 106) mg/dL Lactic Acid (0.4-2.0) Calcium (8.4-10.2) mg/dL Phosphorus (2.5-4.5) mg/dL Magnesium (1.6-2.3) mg/dL Troponin I < 0.012 (0.000-0.034) ng/mL Albumin (3.5-5.0) g/dL Urine Color Yellow (Yellow) Urine Appearance Cloudy A (Clear) Urine pH 7.0 (4.6-8.0) Ur Specific [place] 1.020 (1.005-1.030) Urine Protein Trace A (Negative) Urine Glucose (UA) >=1000 A (Negative) mg/dL Urine Ketones Trace A (Negative) Urine Blood Negative (Negative) Urine Nitrite Positive A (Negative) Urine Bilirubin Negative (Negative) Urine Urobilinogen 1.0 A (0.2) mg/dL Ur Leukocyte Esterase Trace A (Negative) U Hyaline Cast (Auto) NONE SEEN (0-2) /LPF Urine Microscopic RBC 0-2 (0-5) /HPF Urine Microscopic WBC 11-20 A (0-5) /HPF Ur Epithelial Cells None Seen (None Seen) /HPF Urine Bacteria Many A (None Seen) /HPF Urine Culture Reflexed ORDERED SEPARATELY (NO) Ur Random Creatinine MG/DL U Random Total Protein (0-12) mg/dL Urine Sodium (30-90) mmol/L Slides for Path Review YES 08/18/23 08/18/23 08/18/23 Range/Units 12:35 15:35 16:12 WBC (4.0-10.5) x10^3/uL RBC (4.1-5.4) x10^6/uL Hgb (12.0-16.0) g/dL Hct (35-47) % MCV (78-100) fL MCH (26-32) pg MCHC (32-36) g/dL RDW (11.5-14.0) % Plt Count (150-450) x10^3/uL Sodium (137-145) mmol/L Potassium (3.5-5.1) mmol/L Chloride (98-107) mmol/L Carbon Dioxide (22-30) mmol/L Anion Gap (5-15) MEQ/L BUN (7-17) mg/dL Creatinine (0.52-1.04) mg/dL Estimated GFR ML/MIN Glucose (74-106) mg/dL POC Glucometer 339 H 314 H (74 to 106) mg/dL Lactic Acid 0.9 (0.4-2.0) Calcium (8.4-10.2) mg/dL Phosphorus (2.5-4.5) mg/dL Magnesium (1.6-2.3) mg/dL Troponin I (0.000-0.034) ng/mL Albumin (3.5-5.0) g/dL Urine Color (Yellow) Urine Appearance (Clear) Urine pH (4.6-8.0) Ur Specific [place] (1.005-1.030) Urine Protein (Negative) Urine Glucose (UA) (Negative) mg/dL Urine Ketones (Negative) Urine Blood (Negative) Urine Nitrite (Negative) Urine Bilirubin (Negative) Urine Urobilinogen (0.2) mg/dL Ur Leukocyte Esterase (Negative) U Hyaline Cast (Auto) (0-2) /LPF Urine Microscopic RBC (0-5) /HPF Urine Microscopic WBC (0-5) /HPF Ur Epithelial Cells (None Seen) /HPF Urine Bacteria (None Seen) /HPF Urine Culture Reflexed (NO) Ur Random Creatinine MG/DL U Random Total Protein (0-12) mg/dL Urine Sodium (30-90) mmol/L Slides for Path Review Radiology Exams: Radiology Procedures Category Date Time Status CHEST 1 VIEW (PORTABLE) Stat Exams 08/17/23 18:38 Completed ECHO W/2D AND DOPPLER [US] Urgent Exams 08/18/23 07:29 Draft FOOT (MINIMUM 3 VIEWS) Urgent Exams 08/18/23 10:08 Completed Multi-Disciplinary Progress Notes: Multi-Disciplinary Progress Notes 08/18/23 11:40 Case Management Note by Lyric Hauser PATIENT CURRENTLY NOT FEELING WELL. PATIENT HAS C/O CHEST PAIN. NO AWARE- PATIENT REPORTS SHE WAS DOING WELL AT [facility] AND PLANS TO RETURN THERE AT TIME OF DC. WILL DO MORE IN DEPTH ASSESS WHEN PATIENT IS FEELING BETTER Initialized on 08/18/23 11:40 - END OF NOTE <AGUILA SORENSEN - Last Filed: 08/18/23 18:24> Assessment/Plan (1) Anasarca Current Visit: Yes Status: Acute Assessment & Plan: - Attempt diuresis with Bumex 1mg IV q8 - Consider adding metolazone - Limit sodium intake - Echo- EF 50% awaiting- cardiology to read Code(s): R60.1 - GENERALIZED EDEMA (2) Hypertensive urgency Current Visit: No Status: Acute Assessment & Plan: - BP stable - Cont. 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 Head 5th metatarsal and lesser base 5th proximal phalanx demonstrates bony moth-eaten appearance, possible osteomyelitis in right clinical setting. No other bony, articular, or soft tissue abnormalities Code(s): E11.621 - TYPE 2 DIABETES MELLITUS WITH FOOT ULCER; L97.509 - NON- PRESSURE CHRONIC ULCER OTH PRT UNSP FOOT W UNSP SEVERITY (4) Uncontrolled type 2 diabetes mellitus Current Visit: No Status: Acute Assessment & Plan: - Continue home dosing of insulin. Humalog 30 units in am, 24 at lunch, and 30 at dinner then 46 units at bedtime. - A1c 07/16/23: 12.43 - Uncontrolled Code(s): [id number] - (5) UTI (urinary tract infection) Current Visit: Yes Status: Acute Assessment & Plan: - Zosyn - UC pending Code(s): N39.0 - URINARY TRACT INFECTION, SITE NOT SPECIFIED (6) Atrial fibrillation with RVR Current Visit: Yes Status: Acute Assessment & Plan: - One time dose of metoprolol gave - EKG- reviewed shows new onset a-fib. - cardiology consulted.- awaiting recommendations - Echo 08-17-22 EF44% 1) mild [facility]EN[facility] left ventricular hypertrophy. 2) mild decrease in left ventricular systolic function. 3) moderate left atrial dilatation. 4) Mild aortic regurgitation. 5) hypokinesis of the septum which is mild. - Echo 08/18- pending reading -ASA, statin, Trops negative - Eliquis - TSH - Chest XR 08/18/23 Portable chest unchanged again demonstrating chronic right hemidiaphragm elevation, bibasilar discoid atelectasis/scarring, cardiomegaly, osteopenia, and mild bony degenerative changes. No new cardiopulmonary abnormalities. Code(s): I48.91 - UNSPECIFIED ATRIAL FIBRILLATION (7) Obesity, morbid, BMI 50 or higher Current Visit: Yes Status: Chronic Assessment & Plan: - advised diet control - ADA diet Code(s): E66.01 - MORBID (SEVERE) OBESITY DUE TO EXCESS CALORIES (8) Hypothyroid Current Visit: Yes Status: Chronic Assessment & Plan: - Continue synthroid - TSH in AM Code(s): E03.9 - HYPOTHYROIDISM, UNSPECIFIED <STEFAN MARCIAL - Last Filed: 08/18/23 14:06> SEFERINO Encounter - SEFERINO Encounter Attestation SEFERINO Encounter Attestation: "[facility] andhavediscussed pertinent aspects of their care with Stefan Doty agree with the history, physical exam (any modifications based on my personal exam will be noted below), assessment, and plan as outlined in original note. Please see immediately below for my summary of findings and additional assessment and plan along with any meaningful corrections/explanations to the Subjective/Objective portions of the SEFERINO note will be noted." My portion of the encounter took place via telemedicine. -Patient complained of chest pain today and noted to be in Afib with RVR. Given metoprolol 5 mg IV x 1, discontinue carvedilol and start metoprolol for better rate control. Echo with mildly depressed EF of 34% compared to last one. Cardiology consulted. Podiatry also consulted for right foot wound, appreciate recommendations. Started on vanc zosyn pending cultures, as patient is a poorly controlled diabetic. <AGUILA SORENSEN - Last Filed: 08/18/23 18:24>
[2023-08-18] MEDS ORDERED: PHARMACY DOSING REQUIRED: VANCOMYCIN IV STA (14:45)
--- NOTE | 2023-08-18 15:08 | ECHO ---
DATE OF PROCEDURE: 08/18/2023 CLINICAL INFORMATION: Shortness of breath and rapid heart rate. The M-mode 2D, and Doppler echocardiogram including color flow Doppler is extremely limited due to morbid obesity and patient position. The patient is not able to lay flat on the left side. The left ventricle is normal in size. There is mild concentric left ventricular hypertrophy. The left ventricular systolic function is moderately decreased. The ejection fraction is calculated to be 34%. The heart rate is 98 beats/minute. The right ventricle is not well visualized. The left atrium is moderately dilated. The interatrial septum is intact. The right atrium is normal. The aortic valve opens well. It is trileaflet. There is no aortic regurgitation. There is mitral valve leaflet thickening and calcification without evidence of a significant stenosis. The tricuspid valve is not well visualized. There is mild tricuspid regurgitation. The right ventricular systolic pressure is calculated to be 17 mm of Mercury. The pulmonic valve is not well visualized. The aortic root is normal. There is no pericardial effusion present. IMPRESSION: 1) TECHNICALLY DIFFICULT ECHOCARDIOGRAM. 2) MODERATE DECREASE IN LEFT VENTRICULAR SYSTOLIC FUNCTION. 3) MODERATE LEFT ATRIAL DILATATION. 4) MILD CONCENTRIC LEFT VENTRICULAR HYPERTROPHY. 5) MILD TRICUSPID REGURGITATION. 6) NORMAL RIGHT VENTRICULAR SYSTOLIC PRESSURE. 7) NO PERICARDIAL EFFUSION IS NOTED.
[2023-08-18] MEDS: VANCOMYCIN 1.5 GRAM/300 ML BAG 1.5 GM/300 ML PIGGYBACK IV SCH (15:50)
--- NOTE | 2023-08-18 16:48 | PCM.CONS ---
Podiatry HPI - Consult Date of Consultation Date: 08/18/23 Reason for Consult: 3rd toe ulcer right Consulting Provider: WILY CALDERON DPM - [facility] History of Present Illness: Francesca is a very plesant 63 year old female well known to our service for 3rd toe ulcer of the right foot. Patient had amputation of 2nd digit right foot last year with Dr. Posadas. Her past medical history significant for poorly controlled diabetes, hypertension, hyperlipidemia and obesity who presents to the hospital with complaints of a several month history of increasing weight up to 75lbs, abdominal distention and swelling/pain of her lower extremities. She also reports some vague chest pain and shortness of breath associated with her symptoms. Previous HbA1c 12.3 with elevated urine albumin creatinine ratios. She is very SOB on assessment today. Lethargic however no other complaints. Medications & Allergies Home Medications: Home Medication List Duloxetine HCl 60 mg PO DAILY 03/17/16 [History Confirmed 08/17/23] Mesalamine [Pentasa] 500 mg PO BID 03/17/16 [History Confirmed 08/17/23] Omeprazole 20 MG [Prilosec 20 mg] 20 mg PO BID 03/17/16 [History Confirmed 08/17/23] Atorvastatin Calcium 10 mg PO DAILY 01/25/18 [History Confirmed 08/17/23] Isosorbide Mononitrate 60 mg [Imdur 60MG] 60 mg PO DAILY 12/31/20 [History Confirmed 08/17/23] Levothyroxine Sodium 25 Mcg [Synthroid 25 Mcg] 25 mcg PO DAILY 12/31/20 [History Confirmed 08/17/23] Aripiprazole [Abilify] 2 mg PO DAILY 06/03/22 [History Confirmed 08/17/23] Loperamide HCl [Loperamide] 4 mg PO Q12H PRN PRN 06/03/22 [History Confirmed 08/17/23] Ranolazine 500 MG [Ranexa 500 MG] 500 mg PO BID 06/03/22 [History Confirmed 08/17/23] azaTHIOprine [Azathioprine] 50 mg PO BID 06/03/22 [History Confirmed 08/17/23] Apixaban [Eliquis 5 mg Tablet] 5 mg PO BID 08/16/22 [History Confirmed 08/17/23] Acetaminophen 325 mg [Tylenol 325 mg] 2 tab PO Q4HPRN PRN 10/06/22 [History Confirmed 08/17/23] Albuterol Sulfate [Proventil Hfa] 2 puff IH Q4HPRN PRN 10/06/22 [History Confirmed 08/17/23] Fluticasone/Umeclidin/Vilanter [Trelegy Ellipta 100-62.5-25] 1 puff IH DAILY 01/29/23 [History Confirmed 08/17/23] Aspirin EC 81 mg [Ecotrin 81 mg] 81 mg PO DAILY 07/09/23 [History Confirmed 08/17/23] Diclofenac Sodium [Pennsaid] See Rx Instructions .ROUTE .COMPLEX 07/09/23 [History Confirmed 08/17/23] Gabapentin 300 mg PO TID 07/09/23 [History Confirmed 08/17/23] Hydralazine HCl 25 mg PO Q6H PRN PRN 07/09/23 [History Confirmed 08/17/23] Insulin Lispro [Humalog Kwikpen U-100] See Rx Instructions .ROUTE .COMPLEX 0 07/09/23 [History Confirmed 08/17/23] carvediloL [Carvedilol] 6.25 mg PO BID 07/09/23 [History Confirmed 08/17/23] methocarbamoL [Methocarbamol] 1 tab PO Q6HPRN PRN 07/09/23 [History Confirmed 08/17/23] Ergocalciferol (Vitamin D2) [Vitamin D2] 1 cap PO WEEKLY 08/17/23 [History Confirmed 08/17/23] Furosemide [Lasix] 40 mg PO DAILY 08/17/23 [History Confirmed 08/17/23] Insulin Glargine,Hum.rec.anlog [Flavio Duque] 46 units SQ HS 08/17/23 [History Confirmed 08/17/23] Potassium Chloride 8 meq PO DAILY 08/17/23 [History Confirmed 08/17/23] Allergies/Adverse Reactions: Allergies Allergy/AdvReac Type Severity Reaction Status Date / Time cyclobenzaprine HCl Allergy Mild Rash Verified 07/16/23 13:37 [From Flexeril] metoclopramide [From Reglan] Allergy Mild Rash Verified 07/16/23 13:37 Sulfa (Sulfonamide Allergy Mild Rash Verified 07/16/23 13:37 Antibiotics) [Sulfa(Sulfonamide Antibiotics)] adhesive Allergy Rash Verified 07/16/23 13:37 nalbuphine HCl [From Nubain] AdvReac Intermediate Stomach Verified 07/16/23 13:37 Cramps ciprofloxacin [From Cipro] AdvReac Mild Rash Verified 07/16/23 13:37 meperidine HCl [From Demerol] AdvReac Mild Vomiting Verified 07/16/23 13:37 coban AdvReac Itching Uncoded 07/09/23 22:30 - Past Medical History Past Medical History: Yes Neurological History: Migraines, Peripheral Neuropathy ENT History: Cataracts Cardiac History: Arrhythmia, Coronary Artery Disease, High Cholesterol, Hypertension, Myocardial Infarction ([place]), Other Respiratory History: Asthma, Bronchitis, CHF, COPD, Sleep Apnea Endocrine Medical History: Diabetes Type II Musculoskelatal History: Arthritis, Degenerative Disk Disease, Fibromyalgia, Osteoarthritis GI Medical History: Crohns Disease, Diverticulitis, GERD, Irritable Bowel History: No Pertinent History Pyscho-Social History: Anxiety, Depression Reproductive Disorders: No Pertinent History Comment: HX UTI, HX Yeast Infection, Neuropathy, degenerative joint disease - Female History Are you now?: No - Past Surgical History Past Surgical History: Yes Neuro Surgical History: No Pertinent History Cardiac History: Cardiac Catheterization Respiratory Surgery: No Pertinent History GI Surgical History: No Pertinent History Genitourinary Surgical Hx: No Pertinent History Musculskeletal Surgical Hx: No Pertinent History Female Surgical History: Dilation & Curettage, Section, Tubal Ligation Other Surgical History: KIDNEY STONE REMOVAL, right 2nd toe amputated 2021. heart cath x3, no stents, clot removal rt thigh artery - Social History Smoking Status: Never smoker How long have you smoked: years Exposure to second hand smoke: No Alcohol: None Drug Use: none Significant Family History: no pertinent family hx, diabetes, hypertension Physical Exam - Narrative Narrative Physical Exam: Podiatry Physical Exam Results - Labs Lab/Micro Results: Lab Results-Last 24 Hours 08/17/23 08/17/23 08/17/23 Range/Units 10:05 16:25 16:25 WBC 6.3 (4.0-10.5) x10^3/uL RBC 3.60 L (4.1-5.4) x10^6/uL Hgb 8.5 L (12.0-16.0) g/dL Hct 30.6 L (35-47) % MCV 85.0 (78-100) fL MCH 23.6 L (26-32) pg MCHC 27.8 L (32-36) g/dL RDW 17.5 H (11.5-14.0) % Plt Count 144 L (150-450) x10^3/uL MPV 12.8 H (7.5-11.0) fL Gran % 74.2 H (36.0-66.0) % Immature Gran % (Auto) 0.3 (0.00-0.4) % Nucleat RBC Rel Count 0.0 (0.00-0.1) % Eos # (Auto) 0.21 (0-0.5) x10^3/uL Immature Gran # (Auto) 0.02 (0.00-0.03) x10^3u/L Absolute Lymphs (auto) 0.64 L (1.0-4.6) x10^3/uL Absolute Monos (auto) 0.73 (0.0-1.3) x10^3/uL Absolute Nucleated RBC 0.00 (0.00-0.01) x10^3u/L Lymphocytes % 10.1 L (24.0-44.0) % Monocytes % 11.6 (0.0-12.0) % Eosinophils % 3.3 (0.00-5.0) % Basophils % 0.5 (0.0-0.4) % Absolute Granulocytes 4.69 (1.4-6.9) x10^3/uL Basophils # 0.03 (0-0.4) x10^3/uL D-Dimer (0.0-0.50) mg/L Sodium 136 L (137-145) mmol/L Potassium 4.5 (3.5-5.1) mmol/L Chloride 92 L (98-107) mmol/L Carbon Dioxide 36 H (22-30) mmol/L Anion Gap 12.0 (5-15) MEQ/L BUN 16 (7-17) mg/dL Creatinine 0.55 (0.52-1.04) mg/dL Estimated GFR 103.6 ML/MIN Glucose 418 H (74-106) mg/dL POC Glucometer (74 to 106) mg/dL Lactic Acid (0.4-2.0) Calcium 9.0 (8.4-10.2) mg/dL Phosphorus (2.5-4.5) mg/dL Magnesium (1.6-2.3) mg/dL Total Bilirubin 0.40 (0.2-1.3) mg/dL AST 19 (14-36) U/L ALT 18 (0-35) U/L Alkaline Phosphatase 113 (38-126) U/L Troponin I (0.000-0.034) ng/mL NT-Pro-B Natriuret Pep (<300) pg/mL Serum Total Protein 6.7 (6.3-8.2) g/dL Albumin 3.6 (3.5-5.0) g/dL Urine Color (Yellow) Urine Appearance (Clear) Urine pH (4.6-8.0) Ur Specific [place] (1.005-1.030) Urine Protein (Negative) Urine Glucose (UA) (Negative) mg/dL Urine Ketones (Negative) Urine Blood (Negative) Urine Nitrite (Negative) Urine Bilirubin (Negative) Urine Urobilinogen (0.2) mg/dL Ur Leukocyte Esterase (Negative) U Hyaline Cast (Auto) (0-2) /LPF Urine Microscopic RBC (0-5) /HPF Urine Microscopic WBC (0-5) /HPF Ur Epithelial Cells (None Seen) /HPF Urine Bacteria (None Seen) /HPF Urine Culture Reflexed (NO) Ur Random Creatinine 50.7 MG/DL U Random Total Protein 17 H (0-12) mg/dL Urine Sodium 124 H (30-90) mmol/L Slides for Path Review 08/17/23 08/17/23 08/17/23 Range/Units 16:25 16:25 19:25 WBC (4.0-10.5) x10^3/uL RBC (4.1-5.4) x10^6/uL Hgb (12.0-16.0) g/dL Hct (35-47) % MCV (78-100) fL MCH (26-32) pg MCHC (32-36) g/dL RDW (11.5-14.0) % Plt Count (150-450) x10^3/uL MPV (7.5-11.0) fL Gran % (36.0-66.0) % Immature Gran % (Auto) (0.00-0.4) % Nucleat RBC Rel Count (0.00-0.1) % Eos # (Auto) (0-0.5) x10^3/uL Immature Gran # (Auto) (0.00-0.03) x10^3u/L Absolute Lymphs (auto) (1.0-4.6) x10^3/uL Absolute Monos (auto) (0.0-1.3) x10^3/uL Absolute Nucleated RBC (0.00-0.01) x10^3u/L Lymphocytes % (24.0-44.0) % Monocytes % (0.0-12.0) % Eosinophils % (0.00-5.0) % Basophils % (0.0-0.4) % Absolute Granulocytes (1.4-6.9) x10^3/uL Basophils # (0-0.4) x10^3/uL D-Dimer 0.35 (0.0-0.50) mg/L Sodium (137-145) mmol/L Potassium (3.5-5.1) mmol/L Chloride (98-107) mmol/L Carbon Dioxide (22-30) mmol/L Anion Gap (5-15) MEQ/L BUN (7-17) mg/dL Creatinine (0.52-1.04) mg/dL Estimated GFR ML/MIN Glucose (74-106) mg/dL POC Glucometer (74 to 106) mg/dL Lactic Acid (0.4-2.0) Calcium (8.4-10.2) mg/dL Phosphorus (2.5-4.5) mg/dL Magnesium (1.6-2.3) mg/dL Total Bilirubin (0.2-1.3) mg/dL AST (14-36) U/L ALT (0-35) U/L Alkaline Phosphatase (38-126) U/L Troponin I < 0.012 < 0.012 (0.000-0.034) ng/mL NT-Pro-B Natriuret Pep (<300) pg/mL Serum Total Protein (6.3-8.2) g/dL Albumin (3.5-5.0) g/dL Urine Color (Yellow) Urine Appearance (Clear) Urine pH (4.6-8.0) Ur Specific [place] (1.005-1.030) Urine Protein (Negative) Urine Glucose (UA) (Negative) mg/dL Urine Ketones (Negative) Urine Blood (Negative) Urine Nitrite (Negative) Urine Bilirubin (Negative) Urine Urobilinogen (0.2) mg/dL Ur Leukocyte Esterase (Negative) U Hyaline Cast (Auto) (0-2) /LPF Urine Microscopic RBC (0-5) /HPF Urine Microscopic WBC (0-5) /HPF Ur Epithelial Cells (None Seen) /HPF Urine Bacteria (None Seen) /HPF Urine Culture Reflexed (NO) Ur Random Creatinine MG/DL U Random Total Protein (0-12) mg/dL Urine Sodium (30-90) mmol/L Slides for Path Review 08/17/23 08/17/23 08/18/23 Range/Units 22:07 Unknown 02:04 WBC (4.0-10.5) x10^3/uL RBC (4.1-5.4) x10^6/uL Hgb (12.0-16.0) g/dL Hct (35-47) % MCV (78-100) fL MCH (26-32) pg MCHC (32-36) g/dL RDW (11.5-14.0) % Plt Count (150-450) x10^3/uL MPV (7.5-11.0) fL Gran % (36.0-66.0) % Immature Gran % (Auto) (0.00-0.4) % Nucleat RBC Rel Count (0.00-0.1) % Eos # (Auto) (0-0.5) x10^3/uL Immature Gran # (Auto) (0.00-0.03) x10^3u/L Absolute Lymphs (auto) (1.0-4.6) x10^3/uL Absolute Monos (auto) (0.0-1.3) x10^3/uL Absolute Nucleated RBC (0.00-0.01) x10^3u/L Lymphocytes % (24.0-44.0) % Monocytes % (0.0-12.0) % Eosinophils % (0.00-5.0) % Basophils % (0.0-0.4) % Absolute Granulocytes (1.4-6.9) x10^3/uL Basophils # (0-0.4) x10^3/uL D-Dimer (0.0-0.50) mg/L Sodium (137-145) mmol/L Potassium (3.5-5.1) mmol/L Chloride (98-107) mmol/L Carbon Dioxide (22-30) mmol/L Anion Gap (5-15) MEQ/L BUN (7-17) mg/dL Creatinine (0.52-1.04) mg/dL Estimated GFR ML/MIN Glucose (74-106) mg/dL POC Glucometer 316 H (74 to 106) mg/dL Lactic Acid (0.4-2.0) Calcium (8.4-10.2) mg/dL Phosphorus (2.5-4.5) mg/dL Magnesium (1.6-2.3) mg/dL Total Bilirubin (0.2-1.3) mg/dL AST (14-36) U/L ALT (0-35) U/L Alkaline Phosphatase (38-126) U/L Troponin I < 0.012 (0.000-0.034) ng/mL NT-Pro-B Natriuret Pep 1340 (<300) pg/mL Serum Total Protein (6.3-8.2) g/dL Albumin (3.5-5.0) g/dL Urine Color (Yellow) Urine Appearance (Clear) Urine pH (4.6-8.0) Ur Specific [place] (1.005-1.030) Urine Protein (Negative) Urine Glucose (UA) (Negative) mg/dL Urine Ketones (Negative) Urine Blood (Negative) Urine Nitrite (Negative) Urine Bilirubin (Negative) Urine Urobilinogen (0.2) mg/dL Ur Leukocyte Esterase (Negative) U Hyaline Cast (Auto) (0-2) /LPF Urine Microscopic RBC (0-5) /HPF Urine Microscopic WBC (0-5) /HPF Ur Epithelial Cells (None Seen) /HPF Urine Bacteria (None Seen) /HPF Urine Culture Reflexed (NO) Ur Random Creatinine MG/DL U Random Total Protein (0-12) mg/dL Urine Sodium (30-90) mmol/L Slides for Path Review 08/18/23 08/18/23 08/18/23 Range/Units 02:04 07:07 07:28 WBC 8.6 (4.0-10.5) x10^3/uL RBC 3.75 L (4.1-5.4) x10^6/uL Hgb 8.8 L (12.0-16.0) g/dL Hct 32.5 L (35-47) % MCV 86.7 (78-100) fL MCH 23.5 L (26-32) pg MCHC 27.1 L (32-36) g/dL RDW 17.3 H (11.5-14.0) % Plt Count 128 L (150-450) x10^3/uL MPV (7.5-11.0) fL Gran % (36.0-66.0) % Immature Gran % (Auto) (0.00-0.4) % Nucleat RBC Rel Count (0.00-0.1) % Eos # (Auto) (0-0.5) x10^3/uL Immature Gran # (Auto) (0.00-0.03) x10^3u/L Absolute Lymphs (auto) (1.0-4.6) x10^3/uL Absolute Monos (auto) (0.0-1.3) x10^3/uL Absolute Nucleated RBC (0.00-0.01) x10^3u/L Lymphocytes % (24.0-44.0) % Monocytes % (0.0-12.0) % Eosinophils % (0.00-5.0) % Basophils % (0.0-0.4) % Absolute Granulocytes (1.4-6.9) x10^3/uL Basophils # (0-0.4) x10^3/uL D-Dimer (0.0-0.50) mg/L Sodium 135 L (137-145) mmol/L Potassium 4.1 (3.5-5.1) mmol/L Chloride 89 L (98-107) mmol/L Carbon Dioxide 36 H (22-30) mmol/L Anion Gap 14.1 (5-15) MEQ/L BUN 15 (7-17) mg/dL Creatinine 0.53 (0.52-1.04) mg/dL Estimated GFR 104.5 ML/MIN Glucose 301 H (74-106) mg/dL POC Glucometer 298 H (74 to 106) mg/dL Lactic Acid (0.4-2.0) Calcium 9.2 (8.4-10.2) mg/dL Phosphorus 4.2 (2.5-4.5) mg/dL Magnesium 1.4 L (1.6-2.3) mg/dL Total Bilirubin (0.2-1.3) mg/dL AST (14-36) U/L ALT (0-35) U/L Alkaline Phosphatase (38-126) U/L Troponin I (0.000-0.034) ng/mL NT-Pro-B Natriuret Pep (<300) pg/mL Serum Total Protein (6.3-8.2) g/dL Albumin 3.7 (3.5-5.0) g/dL Urine Color (Yellow) Urine Appearance (Clear) Urine pH (4.6-8.0) Ur Specific [place] (1.005-1.030) Urine Protein (Negative) Urine Glucose (UA) (Negative) mg/dL Urine Ketones (Negative) Urine Blood (Negative) Urine Nitrite (Negative) Urine Bilirubin (Negative) Urine Urobilinogen (0.2) mg/dL Ur Leukocyte Esterase (Negative) U Hyaline Cast (Auto) (0-2) /LPF Urine Microscopic RBC (0-5) /HPF Urine Microscopic WBC (0-5) /HPF Ur Epithelial Cells (None Seen) /HPF Urine Bacteria (None Seen) /HPF Urine Culture Reflexed (NO) Ur Random Creatinine MG/DL U Random Total Protein (0-12) mg/dL Urine Sodium (30-90) mmol/L Slides for Path Review YES 08/18/23 08/18/23 08/18/23 Range/Units 10:05 12:31 12:35 WBC (4.0-10.5) x10^3/uL RBC (4.1-5.4) x10^6/uL Hgb (12.0-16.0) g/dL Hct (35-47) % MCV (78-100) fL MCH (26-32) pg MCHC (32-36) g/dL RDW (11.5-14.0) % Plt Count (150-450) x10^3/uL MPV (7.5-11.0) fL Gran % (36.0-66.0) % Immature Gran % (Auto) (0.00-0.4) % Nucleat RBC Rel Count (0.00-0.1) % Eos # (Auto) (0-0.5) x10^3/uL Immature Gran # (Auto) (0.00-0.03) x10^3u/L Absolute Lymphs (auto) (1.0-4.6) x10^3/uL Absolute Monos (auto) (0.0-1.3) x10^3/uL Absolute Nucleated RBC (0.00-0.01) x10^3u/L Lymphocytes % (24.0-44.0) % Monocytes % (0.0-12.0) % Eosinophils % (0.00-5.0) % Basophils % (0.0-0.4) % Absolute Granulocytes (1.4-6.9) x10^3/uL Basophils # (0-0.4) x10^3/uL D-Dimer (0.0-0.50) mg/L Sodium (137-145) mmol/L Potassium (3.5-5.1) mmol/L Chloride (98-107) mmol/L Carbon Dioxide (22-30) mmol/L Anion Gap (5-15) MEQ/L BUN (7-17) mg/dL Creatinine (0.52-1.04) mg/dL Estimated GFR ML/MIN Glucose (74-106) mg/dL POC Glucometer 339 H (74 to 106) mg/dL Lactic Acid (0.4-2.0) Calcium (8.4-10.2) mg/dL Phosphorus (2.5-4.5) mg/dL Magnesium (1.6-2.3) mg/dL Total Bilirubin (0.2-1.3) mg/dL AST (14-36) U/L ALT (0-35) U/L Alkaline Phosphatase (38-126) U/L Troponin I < 0.012 (0.000-0.034) ng/mL NT-Pro-B Natriuret Pep (<300) pg/mL Serum Total Protein (6.3-8.2) g/dL Albumin (3.5-5.0) g/dL Urine Color Yellow (Yellow) Urine Appearance Cloudy A (Clear) Urine pH 7.0 (4.6-8.0) Ur Specific [place] 1.020 (1.005-1.030) Urine Protein Trace A (Negative) Urine Glucose (UA) >=1000 A (Negative) mg/dL Urine Ketones Trace A (Negative) Urine Blood Negative (Negative) Urine Nitrite Positive A (Negative) Urine Bilirubin Negative (Negative) Urine Urobilinogen 1.0 A (0.2) mg/dL Ur Leukocyte Esterase Trace A (Negative) U Hyaline Cast (Auto) NONE SEEN (0-2) /LPF Urine Microscopic RBC 0-2 (0-5) /HPF Urine Microscopic WBC 11-20 A (0-5) /HPF Ur Epithelial Cells None Seen (None Seen) /HPF Urine Bacteria Many A (None Seen) /HPF Urine Culture Reflexed ORDERED SEPARATELY (NO) Ur Random Creatinine MG/DL U Random Total Protein (0-12) mg/dL Urine Sodium (30-90) mmol/L Slides for Path Review 08/18/23 08/18/23 Range/Units 15:35 16:12 WBC (4.0-10.5) x10^3/uL RBC (4.1-5.4) x10^6/uL Hgb (12.0-16.0) g/dL Hct (35-47) % MCV (78-100) fL MCH (26-32) pg MCHC (32-36) g/dL RDW (11.5-14.0) % Plt Count (150-450) x10^3/uL MPV (7.5-11.0) fL Gran % (36.0-66.0) % Immature Gran % (Auto) (0.00-0.4) % Nucleat RBC Rel Count (0.00-0.1) % Eos # (Auto) (0-0.5) x10^3/uL Immature Gran # (Auto) (0.00-0.03) x10^3u/L Absolute Lymphs (auto) (1.0-4.6) x10^3/uL Absolute Monos (auto) (0.0-1.3) x10^3/uL Absolute Nucleated RBC (0.00-0.01) x10^3u/L Lymphocytes % (24.0-44.0) % Monocytes % (0.0-12.0) % Eosinophils % (0.00-5.0) % Basophils % (0.0-0.4) % Absolute Granulocytes (1.4-6.9) x10^3/uL Basophils # (0-0.4) x10^3/uL D-Dimer (0.0-0.50) mg/L Sodium (137-145) mmol/L Potassium (3.5-5.1) mmol/L Chloride (98-107) mmol/L Carbon Dioxide (22-30) mmol/L Anion Gap (5-15) MEQ/L BUN (7-17) mg/dL Creatinine (0.52-1.04) mg/dL Estimated GFR ML/MIN Glucose (74-106) mg/dL POC Glucometer 314 H (74 to 106) mg/dL Lactic Acid 0.9 (0.4-2.0) Calcium (8.4-10.2) mg/dL Phosphorus (2.5-4.5) mg/dL Magnesium (1.6-2.3) mg/dL Total Bilirubin (0.2-1.3) mg/dL AST (14-36) U/L ALT (0-35) U/L Alkaline Phosphatase (38-126) U/L Troponin I (0.000-0.034) ng/mL NT-Pro-B Natriuret Pep (<300) pg/mL Serum Total Protein (6.3-8.2) g/dL Albumin (3.5-5.0) g/dL Urine Color (Yellow) Urine Appearance (Clear) Urine pH (4.6-8.0) Ur Specific [place] (1.005-1.030) Urine Protein (Negative) Urine Glucose (UA) (Negative) mg/dL Urine Ketones (Negative) Urine Blood (Negative) Urine Nitrite (Negative) Urine Bilirubin (Negative) Urine Urobilinogen (0.2) mg/dL Ur Leukocyte Esterase (Negative) U Hyaline Cast (Auto) (0-2) /LPF Urine Microscopic RBC (0-5) /HPF Urine Microscopic WBC (0-5) /HPF Ur Epithelial Cells (None Seen) /HPF Urine Bacteria (None Seen) /HPF Urine Culture Reflexed (NO) Ur Random Creatinine MG/DL U Random Total Protein (0-12) mg/dL Urine Sodium (30-90) mmol/L Slides for Path Review Accuchecks Date 08/18/23 Date 08/18/23 Date 08/18/23 Time 16:26 Time 12:42 - Radiology Impressions Radiology Exams & Impressions: Radiology Procedures Category Date Time Status CHEST 1 VIEW (PORTABLE) Stat Exams 08/17/23 18:38 Completed ECHO W/2D AND DOPPLER [US] Urgent Exams 08/18/23 07:29 Draft FOOT (MINIMUM 3 VIEWS) Urgent Exams 08/18/23 10:08 Completed - Other Procedures and Tests Respiratory Therapy 08/17/23 22:18 Oxygen Nasal Cannula 4 lpm Respiratory Therapy Assessment DAILY Assessment/Plan (1) Chest pain in adult Current Visit: No Status: Acute Assessment & Plan: Patient examination and evaluation. Wound to 3rd digit of the right foot debrided revealing ulceration Cultures obtained Non invasive vascular studies recommended at this time to assess wound healing potential. Wound does not probe to bone at this time however is much larger than we have inspected in the past. Radiographs reviewed demonstrating relatively normal anatomy with no concerning pathology. Options discussed at this time for wound care and patient will think of options between routine wound care and surgical debridement vs flexor tenotomy Patient lethargic and states will think about options. Vancomycin/ zosyn per medicine at this time. No immediate plans for OR. 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 Current Visit: No Status: Chronic Code(s): E11.51 - TYPE 2 DIABETES W DIABETIC PERIPHERAL ANGIOPATH W/O GANGRENE; I70.209 - UNSP ATHSCL [place] ARTERIES OF EXTREMITIES, UNSP EXTREMITY (5) Diabetes mellitus type II, uncontrolled Current Visit: No Status: Chronic Qualifiers: Code(s): [id number] - (6) CHF (congestive heart failure) Current Visit: No Status: Chronic Code(s): I50.9 - HEART FAILURE, UNSPECIFIED (7) Shortness of breath Current Visit: No Status: Resolved Code(s): R06.02 - SHORTNESS OF BREATH (8) COPD exacerbation Current Visit: No Status: Acute Code(s): J44.1 - CHRONIC OBSTRUCTIVE PULMONARY DISEASE W (ACUTE) EXACERBATION (9) Uncontrolled type 2 diabetes mellitus Current Visit: No Status: Acute Code(s): FAC0470 - (10) Diabetic foot ulcer Current Visit: Yes Status: Acute Code(s): E11.621 - TYPE 2 DIABETES MELLITUS WITH FOOT ULCER; L97.509 - NON-PRESSURE CHRONIC ULCER OTH PRT UNSP FOOT W UNSP SEVERITY (11) Obesity, morbid, BMI 50 or higher Current Visit: Yes Status: Chronic Code(s): E66.01 - MORBID (SEVERE) OBESITY DUE TO EXCESS CALORIES (12) Type 2 diabetes mellitus Current Visit: No Status: Chronic Qualifiers: Diabetes mellitus fdc insulin use: with fdc use Diabetes mellitus complication status: with hyperglycemia Qualified Code(s): E11.65 - Type 2 diabetes mellitus with hyperglycemia; Z79.4 - retirement (current) use of insulin
[2023-08-18] MEDS: PIPERACILLIN/TAZOBACTAM 4.5 GM in Sodium Chloride 100ML MINI-BAG PLUS 100 ML IV SCH ×2 (18:05→23:26)
[2023-08-18] MEDS ORDERED: Lopressor 25MG Tab PO SCH (22:00)
[2023-08-18] MEDS: Lantus Insulin SQ SCH (22:27)
[2023-08-19] MEDS: VANCOMYCIN 1.5 GRAM/300 ML BAG 1.5 GM/300 ML PIGGYBACK IV SCH (02:43)
[2023-08-19] MEDS: NORCO 5/325 MG PO PRN ×3 (04:08→17:12)
[2023-08-19] MEDS: PIPERACILLIN/TAZOBACTAM 4.5 GM in Sodium Chloride 100ML MINI-BAG PLUS 100 ML IV SCH (05:28)
[2023-08-19 05:44] LABS: Hematocrit 31.3 % (35-47); Hemoglobin 8.6 g/dL (12.0-16.0); Mean Cell Volume 84.8 fL (78-100); Mean Corpuscular Hemoglobin 23.3 pg (26-32); Mean Corpuscular Hgb Concent. 27.5 g/dL (32-36); Mean Platelet Volume 12.8 fL (7.5-11.0); Platelet Count 109 x10^3/uL (150-450); Red Blood Count 3.69 x10^6/uL (4.1-5.4); Red Cell Distribution Width 17.3 % (11.5-14.0); White Blood Count 13.2 x10^3/uL (4.0-10.5)
[2023-08-19 05:57] LABS: ALBUMIN 3.8 g/dL (3.5-5.0); ANION GAP 12.6 MEQ/L (5-15); BILIRUBIN,TOTAL 0.8 mg/dL (0.2-1.3); Calcium 8.9 mg/dL (8.4-10.2); Creatinine 1 0.46 mg/dL (0.52-1.04); EST GLOMERULAR FILTRATION RATE 108.1 ML/MIN; MAGNESIUM 1.3 mg/dL (1.6-2.3); PHOSPHOROUS 3.4 mg/dL (2.5-4.5); Potassium 3.6 mmol/L (3.5-5.1); TSH, 3RD Generation 1.67 mIU/L (0.47-4.68)
--- NOTE | 2023-08-19 06:48 | PCM.NOTE ---
Date and Time: 08/19/23 0648 Subjective Assessment: 08/17/23 Ms. Muro is a 63 year old female with a past medical history significant for poorly controlled diabetes, hypertension, hyperlipidemia and obesity who presents to the hospital with complaints of a several month history of increasing weight up to 75lbs, abdominal distention and swelling/pain of her lower extremities. She also reports some vague chest pain and shortness of breath associated with her symptoms. She denies any excessive salt intake in her diet. BNP was somewhat elevated so she was recommended for admission to the hospital with deal with her symptoms. She currently denies any chest pain or palpitations. She denies any nausea, vomiting or diarrhea. She denies any dysuria, hematuria or foamy/frothy appearing urine. Previous HbA1c 12.3 with elevated urine albumin creatinine ratios. 08/18/23 Pt resting in the chair. She is c/o SOB and CP that radiates to her back. She is in new onset afib RVR per EKG. Cardiology consulted and trop x 3 ordered, last 2 have been negative. Echo pending. Cardiology recommendations pending. One time dose of metoprolol ordered IV. EF44% on last echo 08/17/22. Current echo shows EF at 50%. Right foot XR shows possible osteomyelitis of right 5th digit. Podiatry consulted for further evaluation. 08/19/23: Patient still complained of chest discomfort/pressure this morning. Trops have been negatve x 4, likely related to her RVR though HR is now slightly better in 110s. Coreg will be increased per cardiology recs. Seen by podiatry yesterday. - Review of Systems Constitutional: Weakness Eyes: No Symptoms Ears, Nose, & Throat: No Symptoms Respiratory: No Cough, No Short Of Breath Cardiac: Chest Pain Abdominal/Gastrointestinal: No Abdominal Pain, No Nausea, No Vomiting, No Diarrhea Genitourinary Symptoms: No Dysuria Musculoskeletal: No Back Pain, No Neck Pain Skin: Skin Lesions (R third toe wound) Neurological: No Dizziness, No Focal Weakness, No Sensory Changes Psychological: No Symptoms Endocrine: No Symptoms Hematologic/Lymphatic: No Symptoms Objective Exam General Appearance: no apparent distress, mild distress Neurologic Exam: alert, oriented x 3, cooperative, normal mood/affect, nml cerebellar function, sensation nml, No motor deficits Skin Exam: other (distal right 3rd toe wound with black discoloration) Eye Exam: PERRL, EOMI, eyes nml inspection Ears, Nose, Throat Exam: normal ENT inspection, pharynx normal, moist mucous membranes Neck Exam: normal inspection, non-tender, supple, full range of motion Respiratory Exam: normal breath sounds Cardiovascular Exam: tachycardia Gastrointestinal/Abdomen Exam: soft, No tenderness, No mass Extremity Exam: pedal edema, swelling Pelvic Exam: deferred Rectal Exam: deferred OBJECTIVE DATA Vital Signs: Vital Signs - 24 hr Temp Pulse Resp BP Pulse Ox 08/19/23 04:13 91 L 08/19/23 04:10 91 L 08/19/23 04:00 98.5 F 116 H 40 H 147/90 94 L 08/18/23 23:50 98.0 F 131 H 28 H 126/82 96 08/18/23 20:00 98.9 F 120 H 36 H 149/66 93 L 08/18/23 18:43 126 H 32 H 93 L 08/18/23 16:00 97.5 F 118 H 31 H 141/78 95 08/18/23 12:00 97.3 F 120 H 44 H 122/65 94 L 08/18/23 08:02 107 H 27 H 97 08/18/23 07:40 98.2 F 125 H 20 135/81 94 L Pain Assessment - Last Documented Pain Intensity 8 Pain Scale Used 0-10 Pain Scale Intake and Output: Intake & Output 08/16/23 08/17/23 08/18/23 08/19/23 11:59 11:59 11:59 11:59 Intake Total 920 2327 Output Total 2200 Balance 920 127 Weight 158.1 kg Lab Results: Lab Results-Last 24 Hours 08/17/23 08/18/23 08/18/23 Range/Units 10:05 07:07 07:28 WBC 8.6 (4.0-10.5) x10^3/uL RBC 3.75 L (4.1-5.4) x10^6/uL Hgb 8.8 L (12.0-16.0) g/dL Hct 32.5 L (35-47) % MCV 86.7 (78-100) fL MCH 23.5 L (26-32) pg MCHC 27.1 L (32-36) g/dL RDW 17.3 H (11.5-14.0) % Plt Count 128 L (150-450) x10^3/uL MPV (7.5-11.0) fL Sodium (137-145) mmol/L Potassium (3.5-5.1) mmol/L Chloride (98-107) mmol/L Carbon Dioxide (22-30) mmol/L Anion Gap (5-15) MEQ/L BUN (7-17) mg/dL Creatinine (0.52-1.04) mg/dL Estimated GFR ML/MIN Glucose (74-106) mg/dL POC Glucometer 298 H (74 to 106) mg/dL Lactic Acid (0.4-2.0) Calcium (8.4-10.2) mg/dL Phosphorus (2.5-4.5) mg/dL Magnesium (1.6-2.3) mg/dL Total Bilirubin (0.2-1.3) mg/dL AST (14-36) U/L ALT (0-35) U/L Alkaline Phosphatase (38-126) U/L Troponin I (0.000-0.034) ng/mL Serum Total Protein (6.3-8.2) g/dL Albumin (3.5-5.0) g/dL TSH 3rd Generation (0.47-4.68) mIU/L Urine Color (Yellow) Urine Appearance (Clear) Urine pH (4.6-8.0) Ur Specific Seale (1.005-1.030) Urine Protein (Negative) Urine Glucose (UA) (Negative) mg/dL Urine Ketones (Negative) Urine Blood (Negative) Urine Nitrite (Negative) Urine Bilirubin (Negative) Urine Urobilinogen (0.2) mg/dL Ur Leukocyte Esterase (Negative) U Hyaline Cast (Auto) (0-2) /LPF Urine Microscopic RBC (0-5) /HPF Urine Microscopic WBC (0-5) /HPF Ur Epithelial Cells (None Seen) /HPF Urine Bacteria (None Seen) /HPF Urine Culture Reflexed (NO) Ur Random Creatinine 50.7 MG/DL U Random Total Protein 17 H (0-12) mg/dL Urine Sodium 124 H (30-90) mmol/L Slides for Path Review YES 08/18/23 08/18/23 08/18/23 Range/Units 10:05 12:31 12:35 WBC (4.0-10.5) x10^3/uL RBC (4.1-5.4) x10^6/uL Hgb (12.0-16.0) g/dL Hct (35-47) % MCV (78-100) fL MCH (26-32) pg MCHC (32-36) g/dL RDW (11.5-14.0) % Plt Count (150-450) x10^3/uL MPV (7.5-11.0) fL Sodium (137-145) mmol/L Potassium (3.5-5.1) mmol/L Chloride (98-107) mmol/L Carbon Dioxide (22-30) mmol/L Anion Gap (5-15) MEQ/L BUN (7-17) mg/dL Creatinine (0.52-1.04) mg/dL Estimated GFR ML/MIN Glucose (74-106) mg/dL POC Glucometer 339 H (74 to 106) mg/dL Lactic Acid (0.4-2.0) Calcium (8.4-10.2) mg/dL Phosphorus (2.5-4.5) mg/dL Magnesium (1.6-2.3) mg/dL Total Bilirubin (0.2-1.3) mg/dL AST (14-36) U/L ALT (0-35) U/L Alkaline Phosphatase (38-126) U/L Troponin I < 0.012 (0.000-0.034) ng/mL Serum Total Protein (6.3-8.2) g/dL Albumin (3.5-5.0) g/dL TSH 3rd Generation (0.47-4.68) mIU/L Urine Color Yellow (Yellow) Urine Appearance Cloudy A (Clear) Urine pH 7.0 (4.6-8.0) Ur Specific Seale 1.020 (1.005-1.030) Urine Protein Trace A (Negative) Urine Glucose (UA) >=1000 A (Negative) mg/dL Urine Ketones Trace A (Negative) Urine Blood Negative (Negative) Urine Nitrite Positive A (Negative) Urine Bilirubin Negative (Negative) Urine Urobilinogen 1.0 A (0.2) mg/dL Ur Leukocyte Esterase Trace A (Negative) U Hyaline Cast (Auto) NONE SEEN (0-2) /LPF Urine Microscopic RBC 0-2 (0-5) /HPF Urine Microscopic WBC 11-20 A (0-5) /HPF Ur Epithelial Cells None Seen (None Seen) /HPF Urine Bacteria Many A (None Seen) /HPF Urine Culture Reflexed ORDERED SEPARATELY (NO) Ur Random Creatinine MG/DL U Random Total Protein (0-12) mg/dL Urine Sodium (30-90) mmol/L Slides for Path Review 08/18/23 08/18/23 08/18/23 Range/Units 15:35 16:12 21:03 WBC (4.0-10.5) x10^3/uL RBC (4.1-5.4) x10^6/uL Hgb (12.0-16.0) g/dL Hct (35-47) % MCV (78-100) fL MCH (26-32) pg MCHC (32-36) g/dL RDW (11.5-14.0) % Plt Count (150-450) x10^3/uL MPV (7.5-11.0) fL Sodium (137-145) mmol/L Potassium (3.5-5.1) mmol/L Chloride (98-107) mmol/L Carbon Dioxide (22-30) mmol/L Anion Gap (5-15) MEQ/L BUN (7-17) mg/dL Creatinine (0.52-1.04) mg/dL Estimated GFR ML/MIN Glucose (74-106) mg/dL POC Glucometer 314 H 314 H (74 to 106) mg/dL Lactic Acid 0.9 (0.4-2.0) Calcium (8.4-10.2) mg/dL Phosphorus (2.5-4.5) mg/dL Magnesium (1.6-2.3) mg/dL Total Bilirubin (0.2-1.3) mg/dL AST (14-36) U/L ALT (0-35) U/L Alkaline Phosphatase (38-126) U/L Troponin I (0.000-0.034) ng/mL Serum Total Protein (6.3-8.2) g/dL Albumin (3.5-5.0) g/dL TSH 3rd Generation (0.47-4.68) mIU/L Urine Color (Yellow) Urine Appearance (Clear) Urine pH (4.6-8.0) Ur Specific Seale (1.005-1.030) Urine Protein (Negative) Urine Glucose (UA) (Negative) mg/dL Urine Ketones (Negative) Urine Blood (Negative) Urine Nitrite (Negative) Urine Bilirubin (Negative) Urine Urobilinogen (0.2) mg/dL Ur Leukocyte Esterase (Negative) U Hyaline Cast (Auto) (0-2) /LPF Urine Microscopic RBC (0-5) /HPF Urine Microscopic WBC (0-5) /HPF Ur Epithelial Cells (None Seen) /HPF Urine Bacteria (None Seen) /HPF Urine Culture Reflexed (NO) Ur Random Creatinine MG/DL U Random Total Protein (0-12) mg/dL Urine Sodium (30-90) mmol/L Slides for Path Review 08/19/23 08/19/23 Range/Units 04:46 04:46 WBC 13.2 H (4.0-10.5) x10^3/uL RBC 3.69 L (4.1-5.4) x10^6/uL Hgb 8.6 L (12.0-16.0) g/dL Hct 31.3 L (35-47) % MCV 84.8 (78-100) fL MCH 23.3 L (26-32) pg MCHC 27.5 L (32-36) g/dL RDW 17.3 H (11.5-14.0) % Plt Count 109 L (150-450) x10^3/uL MPV 12.8 H (7.5-11.0) fL Sodium 130 L (137-145) mmol/L Potassium 3.6 (3.5-5.1) mmol/L Chloride 84 L (98-107) mmol/L Carbon Dioxide 37 H (22-30) mmol/L Anion Gap 12.6 (5-15) MEQ/L BUN 13 (7-17) mg/dL Creatinine 0.46 L (0.52-1.04) mg/dL Estimated GFR 108.1 ML/MIN Glucose 308 H (74-106) mg/dL POC Glucometer (74 to 106) mg/dL Lactic Acid (0.4-2.0) Calcium 8.9 (8.4-10.2) mg/dL Phosphorus 3.4 (2.5-4.5) mg/dL Magnesium 1.3 L (1.6-2.3) mg/dL Total Bilirubin 0.80 (0.2-1.3) mg/dL AST 17 (14-36) U/L ALT 15 (0-35) U/L Alkaline Phosphatase 99 (38-126) U/L Troponin I (0.000-0.034) ng/mL Serum Total Protein 7.0 (6.3-8.2) g/dL Albumin 3.8 (3.5-5.0) g/dL TSH 3rd Generation 1.670 (0.47-4.68) mIU/L Urine Color (Yellow) Urine Appearance (Clear) Urine pH (4.6-8.0) Ur Specific Seale (1.005-1.030) Urine Protein (Negative) Urine Glucose (UA) (Negative) mg/dL Urine Ketones (Negative) Urine Blood (Negative) Urine Nitrite (Negative) Urine Bilirubin (Negative) Urine Urobilinogen (0.2) mg/dL Ur Leukocyte Esterase (Negative) U Hyaline Cast (Auto) (0-2) /LPF Urine Microscopic RBC (0-5) /HPF Urine Microscopic WBC (0-5) /HPF Ur Epithelial Cells (None Seen) /HPF Urine Bacteria (None Seen) /HPF Urine Culture Reflexed (NO) Ur Random Creatinine MG/DL U Random Total Protein (0-12) mg/dL Urine Sodium (30-90) mmol/L Slides for Path Review Radiology Exams: Radiology Procedures Category Date Time Status CHEST 1 VIEW (PORTABLE) Stat Exams 08/17/23 18:38 Completed ECHO W/2D AND DOPPLER [US] Urgent Exams 08/18/23 07:29 Draft FOOT (MINIMUM 3 VIEWS) Urgent Exams 08/18/23 10:08 Completed Multi-Disciplinary Progress Notes: Multi-Disciplinary Progress Notes 08/18/23 11:40 Case Management Note by Lyric Hauser PATIENT CURRENTLY NOT FEELING WELL. PATIENT HAS C/O CHEST PAIN. NO AWARE- PATIENT REPORTS SHE WAS DOING WELL AT [facility] AND PLANS TO RETURN THERE AT TIME OF DC. WILL DO MORE IN DEPTH ASSESS WHEN PATIENT IS FEELING BETTER Initialized on 08/18/23 11:40 - END OF NOTE Assessment/Plan (1) CHF (congestive heart failure) Current Visit: No Status: Acute Qualifiers: Heart failure type: systolic Assessment & Plan: -patient presented with anasarca, weight gain. -Echo this admission revealed EF of 34% -currently tolerating bumex 1 mg every 8 hours -recommend daily weights, strict I and O, low salt diet -cardiology consulted, appreciate recs. Code(s): I50.9 - HEART FAILURE, UNSPECIFIED (2) Atrial fibrillation with RVR Current Visit: Yes Status: Acute Assessment & Plan: -patient reported chest pain on morning of 08/18 and was noted to be in atrial fibrillation with RVR. No prior diagnosis in chart. Patient already anticoagulated with eliquis. Will increase Coreg to 12.5 mg BID per cardiology recommendations. -metoprolol 5 mg IVP prn tachycardia Code(s): I48.91 - UNSPECIFIED ATRIAL FIBRILLATION (3) Diabetic foot ulcer Current Visit: Yes Status: Chronic Assessment & Plan: - Started on vanc and zosyn but will deescalate to ceftriaxone only as wound is chronic and no concern for osteomyelitis at this time per podiatry evaluation. - podiatry consult appreciated. Right 3rd toe wound debrided by podiatry by the bedside on 08/18, cultures obtained. Arterial dopplers ordered per podiatry request. 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 Head 5th metatarsal and lesser base 5th proximal phalanx demonstrates bony moth-eaten appearance, possible osteomyelitis in right clinical setting. No other bony, articular, or soft tissue abnormalities Code(s): E11.621 - TYPE 2 DIABETES MELLITUS WITH FOOT ULCER; L97.509 - NON- PRESSURE CHRONIC ULCER OTH PRT UNSP FOOT W UNSP SEVERITY (4) Uncontrolled type 2 diabetes mellitus Current Visit: No Status: Acute Assessment & Plan: - Continue home dosing of insulin. Humalog 30 units in am, 24 at lunch, and 30 at dinner then 46 units of lantus at bedtime. -blood glucose checks AC and HS - A1c 07/16/23: 12.43 Code(s): JCN1842 - (5) UTI (urinary tract infection) Current Visit: No Status: Acute Assessment & Plan: -gram negative on culture. Continue ceftriaxone. Code(s): N39.0 - URINARY TRACT INFECTION, SITE NOT SPECIFIED (6) Morbid obesity Current Visit: No Status: Chronic Assessment & Plan: - advised diet control - ADA diet Code(s): E66.01 - MORBID (SEVERE) OBESITY DUE TO EXCESS CALORIES (7) Hypothyroid Current Visit: Yes Status: Chronic Assessment & Plan: -continue synthroid Code(s): E03.9 - HYPOTHYROIDISM, UNSPECIFIED (8) Chest pain Current Visit: Yes Status: Acute Assessment & Plan: -likely related to Afib with RVR. Trops have been negative x 4 since admission. Code(s): R07.9 - CHEST PAIN, UNSPECIFIED Telemedicine Encounter - Telemedicine Encounter Telemedicine Encounter: The entirety of this encounter was performed via Telemedicine"
[2023-08-19] MEDS: Advair Hfa 115/21 Common canister IH SCH ×2 (06:49→21:07)
[2023-08-19 07:05] LABS: Slide Review YES
[2023-08-19] MEDS: BUMEX 1 MG IV SCH ×2 (08:02→15:34)
[2023-08-19] MEDS: HUMALOG SQ SCH ×3 (08:02→18:13)
[2023-08-19] MEDS ORDERED: COREG 12.5 MG PO SCH (10:00)
[2023-08-19] MEDS: Cymbalta 30 MG Capsule PO SCH (10:59)
[2023-08-19] MEDS: Abilify 10 MG PO SCH (10:59)
[2023-08-19] MEDS: ROCEPHIN 1 Gm-D5w 50 ml Bag** 1 G/50 ML IVPB IV SCH (10:59)
[2023-08-19] MEDS: Imdur 60MG PO SCH (11:00)
[2023-08-19] MEDS: ELIQUIS 2.5 MG TABLET PO SCH ×2 (11:00→22:11)
[2023-08-19] MEDS: MAG-OX 400 PO SCH ×2 (11:00→22:12)
[2023-08-19] MEDS: Zocor 10MG PO SCH (11:00)
[2023-08-19] MEDS: SYNTHROID 25 MCG PO SCH (11:00)
[2023-08-19] MEDS: ECOTRIN 81 MG PO SCH (11:00)
[2023-08-19] MEDS: Protonix 40MG Tablet PO SCH ×2 (11:00→22:12)
[2023-08-19] MEDS: NYSTOP POWDER 15 GM TP SCH ×2 (11:01→23:54)
--- NOTE | 2023-08-19 13:34 | XRAY ---
Indication: Right great toe ulceration. Two-dimensional sonogram and color Doppler imaging of the major arteries of the left and right leg performed. Comparison: None Examination of the right leg demonstrates widely patent common femoral, deep femoral, proximal superficial femoral, and popliteal arteries with multiphasic arterial waveforms. Mild/moderate arteriosclerotic disease in the mid/distal superficial femoral and greater degree in the posterior tibial and dorsal pedal arteries with attenuated monophasic arterial waveforms. Examination of the left leg demonstrates widely patent common femoral, deep femoral, superficial femoral, and popliteal arteries with multiphasic arterial waveforms. Remaining posterior tibial and dorsal pedal artery stenosis is mild arteriosclerotic disease with multiphasic arterial waveforms. Impression: Mild/moderate scattered arteriosclerotic disease right leg and lesser mild scattered disease left leg. Right mid to lower leg arterial waveforms are attenuated and demonstrate monophasic arterial waveforms suggesting more proximal stenosis. Left leg negative for critical stenosis/obstruction.
--- NOTE | 2023-08-19 13:37 | XRAY ---
Indication: Right great toe ulcer. Bilateral ankle brachial index exam performed. Comparison: None Right arm brachial pressure is 178. Right ankle pressure is 105. Ankle brachial index is 0.59 favoring moderate ischemic disease. Left arm brachial pressure is 134. Left ankle pressure is 154. Ankle brachial index is 0.87 favoring mild ischemic disease. Impression: Left and right ABIs as above.
[2023-08-19] MEDS: BACIGUENT 30 GM TP SCH (15:33)
[2023-08-19] MEDS: VENTOLIN COMMON CANISTER IH PRN (16:36)
[2023-08-19] MEDS ORDERED: LOPRESSOR INJECTION IV ONE ×2 (17:00→17:50)
[2023-08-19] MEDS: Lopressor 25MG Tab PO SCH ×2 (18:02→23:56)
[2023-08-19 18:04] LABS: A-aADO2 122; ABG HEMOGLOBIN 8.7; ABG POTASSIUM 3.9 (3.5-5.1); ARTERIAL BLD GAS O2 SATURATION 98.3 % (95-100); ARTERIAL BLOOD GAS BASE EXCESS 24.7 (-2.0-2.0); ARTERIAL BLOOD GAS FIO2 44 %; ARTERIAL BLOOD GAS PO2 90 mmHg (75-100); ARTERIAL BLOOD GAS pH 7.42 (7.35-7.45); CARBOXYHEMOGLOBIN 2.1 % THgb (0.0-6.9); HCO3- 52.5 (22-28); HGB O2 SAT 96.2 g/dF (94-100); paO2 pAO1 0.42
[2023-08-19 18:05] LABS: ABG SITE rt brach; ARTERIAL BLOOD GAS PCO2 81 mmHg (35-45)
[2023-08-19 20:09] LABS: A-aADO2 210; ABG HEMOGLOBIN 8.4; ABG POTASSIUM 3.7 (3.5-5.1); ARTERIAL BLD GAS O2 SATURATION 98.1 % (95-100); ARTERIAL BLOOD GAS BASE EXCESS 24.3 (-2.0-2.0); ARTERIAL BLOOD GAS FIO2 60 %; ARTERIAL BLOOD GAS PO2 118 mmHg (75-100); ARTERIAL BLOOD GAS pH 7.42 (7.35-7.45); CARBOXYHEMOGLOBIN 1.2 % THgb (0.0-6.9); HCO3- 51.9 (22-28); HGB O2 SAT 96.7 g/dF (94-100); Methhemoglobin 0.2 % (1.4-1.5); paO2 pAO1 0.36
[2023-08-19 20:10] LABS: ABG SITE RIGHT BRACHIAL; ARTERIAL BLOOD GAS PCO2 80 mmHg (35-45); BIPAP(E) 6; BIPAP(I) 14
[2023-08-19 22:00] LABS: A-aADO2 230; ABG HEMOGLOBIN 8.3; ABG POTASSIUM 3.8 (3.5-5.1); ABG SITE LEFT BRACHIAL; ARTERIAL BLOOD GAS BASE EXCESS 23.1 (-2.0-2.0); ARTERIAL BLOOD GAS FIO2 60 %; ARTERIAL BLOOD GAS PCO2 78 mmHg (35-45); ARTERIAL BLOOD GAS PO2 100 mmHg (75-100); ARTERIAL BLOOD GAS VENT RATE 16 /MIN; ARTERIAL BLOOD GAS pH 7.42 (7.35-7.45); BIPAP(E) 6; BIPAP(I) 14; CARBOXYHEMOGLOBIN 1.4 % THgb (0.0-6.9); HCO3- 50.6 (22-28); Methhemoglobin 0.6 % (1.4-1.5)
[2023-08-19] MEDS: Lantus Insulin SQ SCH (22:11)
[2023-08-20 04:42] LABS: Hematocrit 27.9 % (35-47); Hemoglobin 7.7 g/dL (12.0-16.0); Mean Cell Volume 84.5 fL (78-100); Mean Corpuscular Hemoglobin 23.3 pg (26-32); Mean Corpuscular Hgb Concent. 27.6 g/dL (32-36); Mean Platelet Volume 11.8 fL (7.5-11.0); Platelet Count 109 x10^3/uL (150-450); Red Cell Distribution Width 17.2 % (11.5-14.0); White Blood Count 10.5 x10^3/uL (4.0-10.5)
[2023-08-20 04:56] LABS: ALBUMIN 3.2 g/dL (3.5-5.0); BILIRUBIN,TOTAL 0.5 mg/dL (0.2-1.3); Calcium 8.6 mg/dL (8.4-10.2); Creatinine 1 0.64 mg/dL (0.52-1.04); EST GLOMERULAR FILTRATION RATE 99.9 ML/MIN; Potassium 3.5 mmol/L (3.5-5.1); Total Protein 6.4 g/dL (6.3-8.2)
[2023-08-20 05:13] LABS: ANION GAP 11.5 MEQ/L (5-15)
[2023-08-20] MEDS ORDERED: Nitrostat 0.4 MG Tablet SL PRN (05:28)
[2023-08-20] MEDS: NORCO 5/325 MG PO PRN ×4 (06:04→23:08)
[2023-08-20 07:10] LABS: A-aADO2 184; ABG HEMOGLOBIN 8.1; ABG POTASSIUM 3.6 (3.5-5.1); ARTERIAL BLD GAS O2 SATURATION 98.9 % (95-100); ARTERIAL BLOOD GAS BASE EXCESS 25.7 (-2.0-2.0); ARTERIAL BLOOD GAS FIO2 60 %; ARTERIAL BLOOD GAS PO2 149 mmHg (75-100); ARTERIAL BLOOD GAS VENT MODE BiPAP; ARTERIAL BLOOD GAS pH 7.45 (7.35-7.45); BIPAP(E) 6; BIPAP(I) 14; HCO3- 52.8 (22-28); HGB O2 SAT 97.9 g/dF (94-100); paO2 pAO1 0.45
[2023-08-20 07:12] LABS: ABG SITE RIGHT BRACHIAL; ARTERIAL BLOOD GAS PCO2 76 mmHg (35-45)
[2023-08-20] MEDS: Lopressor 25MG Tab PO SCH ×4 (07:24→23:08)
[2023-08-20] MEDS: Advair Hfa 115/21 Common canister IH SCH ×2 (07:31→22:07)
[2023-08-20] MEDS: HUMALOG SQ SCH ×3 (07:40→16:19)
[2023-08-20 08:40] LABS: Slide Review YES
--- NOTE | 2023-08-20 08:43 | XRAY ---
Indication: Worsening short of breath. Impression: August 17, 2023 Portable chest grossly unchanged again demonstrating chronic right hemidiaphragm elevation, bibasilar discoid atelectasis/scarring, and cardiomegaly. No new cardiopulmonary abnormalities.
[2023-08-20] MEDS: ROCEPHIN 1 Gm-D5w 50 ml Bag** 1 G/50 ML IVPB IV SCH (08:52)
[2023-08-20] MEDS: Abilify 10 MG PO SCH (08:56)
[2023-08-20] MEDS: Zocor 10MG PO SCH (08:56)
[2023-08-20] MEDS: NYSTOP POWDER 15 GM TP SCH ×2 (08:57→21:34)
[2023-08-20] MEDS: SYNTHROID 25 MCG PO SCH (08:57)
[2023-08-20] MEDS: ELIQUIS 2.5 MG TABLET PO SCH ×2 (08:57→21:34)
[2023-08-20] MEDS: ECOTRIN 81 MG PO SCH (08:57)
[2023-08-20] MEDS: Protonix 40MG Tablet PO SCH ×2 (08:57→22:46)
[2023-08-20] MEDS: MAG-OX 400 PO SCH ×2 (08:57→21:34)
[2023-08-20] MEDS: Cymbalta 30 MG Capsule PO SCH (08:57)
[2023-08-20] MEDS: Imdur 60MG PO SCH (08:59)
[2023-08-20] MEDS: BACIGUENT 30 GM TP SCH (08:59)
[2023-08-20] MEDS ORDERED: MAGNESIUM SULF 2 G/50 ML BAG 2 GM/50 ML PIGGYBACK IV ONE (10:00)
--- NOTE | 2023-08-20 11:36 | PCM.NOTE ---
Date and Time: 08/20/231134 Subjective Assessment: on Bipap. appearing distressed. subjective examination limited. Physical Exam - Vascular Peripheral Pulses: Posterior tibialis: 1+, Dorsalis-Pedis: 2+ Capillary Refill Time: < 3 seconds Hair Growth: Symmetrical and Bilateral Varicosities: Positive Edema: Pitting Edema Degree: 2+ Skin: Supple, not atrophic - Narrative Narrative Physical Exam: Podiatry Physical Exam OBJECTIVE DATA Vital Signs: Vital Signs - 24 hr Temp Pulse Resp BP BP Pulse Ox 08/20/23 07:20 118 H 29 H 99 08/20/23 06:00 120 H 23 113/69 100 08/20/23 05:33 117 H 113/49 08/20/23 05:05 115 H 29 H 113/49 96 08/20/23 05:00 103 H 35 H 88/67 100 08/20/23 04:00 98.7 F 114 H 19 96/68 97 08/20/23 03:00 116 H 26 H 100/64 97 08/20/23 02:00 97.7 F 110 H 22 106/83 100 08/20/23 01:00 97.5 F 103 H 30 H 115/81 100 08/20/23 00:10 105 H 30 H 131/82 99 08/20/23 00:09 104 H 31 H 99 08/20/23 00:06 108 H 43 H 99 08/20/23 00:00 103 H 23 99 08/19/23 23:39 101 H 35 H 100 08/19/23 23:09 110 H 28 H 103/62 100 08/19/23 19:42 98.7 F 103 H 26 H 118/71 99 08/19/23 18:45 114 H 28 H 98 08/19/23 18:34 120/67 08/19/23 18:30 105 H 27 H 95 08/19/23 18:21 112 H 30 H 92 L 08/19/23 18:06 127 H 35 H 94 L 08/19/23 17:36 146 H 37 H 110/56 91 L 08/19/23 17:10 141 H 38 H 122/60 92 L 08/19/23 16:36 124 H 28 H 96 08/19/23 16:00 98.0 F 120 H 25 H 142/87 91 L Pain Assessment - Last Documented Pain Intensity 6 Pain Scale Used 0-10 Pain Scale Intake and Output: Intake & Output 08/17/23 08/18/23 08/19/23 08/20/23 11:59 11:59 11:59 11:59 Intake Total 920 3017 120 Output Total 2200 1300 Balance 920 817 -1180 Weight 158.1 kg 155.3 kg Lab Results: Lab Results-Last 24 Hours 08/19/23 08/19/23 08/19/23 Range/Units 11:46 15:50 17:48 WBC (4.0-10.5) x10^3/uL RBC (4.1-5.4) x10^6/uL Hgb (12.0-16.0) g/dL Hct (35-47) % MCV (78-100) fL MCH (26-32) pg MCHC (32-36) g/dL RDW (11.5-14.0) % Plt Count (150-450) x10^3/uL MPV (7.5-11.0) fL Puncture Site rt brach pCO2 81 H* (35-45) mmHg pO2 90 (75-100) mmHg Base Excess 24.7 H (-2.0-2.0) O2 Saturation 96.2 (94-100) g/dF ABG pH 7.42 (7.35-7.45) ABG HCO3 52.5 H* (22-28) ABG O2 Sat (Measured) 98.3 (95-100) % Lucio Test n/a A-a Gradient 122 a/A Ratio 0.42 Hemoglobin 8.7 Carboxyhemoglobin 2.1 (0.0-6.9) % THgb Methemoglobin 0.0 L (1.4-1.5) % Potassium 3.9 (3.5-5.1) Temperature 37.0 C POC O2 Flow Rate 44 % Vent Mode Vent Rate /MIN Inspiratory BiPAP Expiratory BiPAP Sodium (137-145) mmol/L Chloride (98-107) mmol/L Carbon Dioxide (22-30) mmol/L Anion Gap (5-15) MEQ/L BUN (7-17) mg/dL Creatinine (0.52-1.04) mg/dL Estimated GFR ML/MIN Glucose (74-106) mg/dL POC Glucometer 287 H 184 H (74 to 106) mg/dL Calcium (8.4-10.2) mg/dL Magnesium (1.6-2.3) mg/dL Total Bilirubin (0.2-1.3) mg/dL AST (14-36) U/L ALT (0-35) U/L Alkaline Phosphatase (38-126) U/L Troponin I (0.000-0.034) ng/mL NT-Pro-B Natriuret Pep (<300) pg/mL Serum Total Protein (6.3-8.2) g/dL Albumin (3.5-5.0) g/dL Slides for Path Review 08/19/23 08/19/23 08/19/23 Range/Units 18:10 20:03 21:50 WBC (4.0-10.5) x10^3/uL RBC (4.1-5.4) x10^6/uL Hgb (12.0-16.0) g/dL Hct (35-47) % MCV (78-100) fL MCH (26-32) pg MCHC (32-36) g/dL RDW (11.5-14.0) % Plt Count (150-450) x10^3/uL MPV (7.5-11.0) fL Puncture Site RIGHT BRACHIAL LEFT BRACHIAL pCO2 80 H* 78 H* (35-45) mmHg pO2 118 H 100 (75-100) mmHg Base Excess 24.3 H 23.1 H (-2.0-2.0) O2 Saturation 96.7 96.0 (94-100) g/dF ABG pH 7.42 7.42 (7.35-7.45) ABG HCO3 51.9 H* 50.6 H* (22-28) ABG O2 Sat (Measured) 98.1 98.0 (95-100) % Lucio Test NOT APPLICABLE NOT APPLICABLE A-a Gradient 210 230 a/A Ratio 0.36 0.30 Hemoglobin 8.4 8.3 Carboxyhemoglobin 1.2 1.4 (0.0-6.9) % THgb Methemoglobin 0.2 L 0.6 L (1.4-1.5) % Potassium 3.7 3.8 (3.5-5.1) Temperature 37.0 37.0 C POC O2 Flow Rate 60 60 % Vent Mode Vent Rate 16 /MIN Inspiratory BiPAP 14 14 Expiratory BiPAP 6 6 Sodium (137-145) mmol/L Chloride (98-107) mmol/L Carbon Dioxide (22-30) mmol/L Anion Gap (5-15) MEQ/L BUN (7-17) mg/dL Creatinine (0.52-1.04) mg/dL Estimated GFR ML/MIN Glucose (74-106) mg/dL POC Glucometer (74 to 106) mg/dL Calcium (8.4-10.2) mg/dL Magnesium (1.6-2.3) mg/dL Total Bilirubin (0.2-1.3) mg/dL AST (14-36) U/L ALT (0-35) U/L Alkaline Phosphatase (38-126) U/L Troponin I < 0.012 (0.000-0.034) ng/mL NT-Pro-B Natriuret Pep (<300) pg/mL Serum Total Protein (6.3-8.2) g/dL Albumin (3.5-5.0) g/dL Slides for Path Review 08/19/23 08/20/23 08/20/23 Range/Units 21:51 04:17 04:17 WBC 10.5 (4.0-10.5) x10^3/uL RBC 3.30 L (4.1-5.4) x10^6/uL Hgb 7.7 L (12.0-16.0) g/dL Hct 27.9 L (35-47) % MCV 84.5 (78-100) fL MCH 23.3 L (26-32) pg MCHC 27.6 L (32-36) g/dL RDW 17.2 H (11.5-14.0) % Plt Count 109 L (150-450) x10^3/uL MPV 11.8 H (7.5-11.0) fL Puncture Site pCO2 (35-45) mmHg pO2 (75-100) mmHg Base Excess (-2.0-2.0) O2 Saturation (94-100) g/dF ABG pH (7.35-7.45) ABG HCO3 (22-28) ABG O2 Sat (Measured) (95-100) % Lucio Test A-a Gradient a/A Ratio Hemoglobin Carboxyhemoglobin (0.0-6.9) % THgb Methemoglobin (1.4-1.5) % Potassium 3.5 (3.5-5.1) Temperature C POC O2 Flow Rate % Vent Mode Vent Rate /MIN Inspiratory BiPAP Expiratory BiPAP Sodium 131 L (137-145) mmol/L Chloride 84 L (98-107) mmol/L Carbon Dioxide 39 H (22-30) mmol/L Anion Gap 11.5 (5-15) MEQ/L BUN 21 H (7-17) mg/dL Creatinine 0.64 (0.52-1.04) mg/dL Estimated GFR 99.9 ML/MIN Glucose 168 H (74-106) mg/dL POC Glucometer 195 H (74 to 106) mg/dL Calcium 8.6 (8.4-10.2) mg/dL Magnesium (1.6-2.3) mg/dL Total Bilirubin 0.50 (0.2-1.3) mg/dL AST 18 (14-36) U/L ALT 14 (0-35) U/L Alkaline Phosphatase 89 (38-126) U/L Troponin I (0.000-0.034) ng/mL NT-Pro-B Natriuret Pep (<300) pg/mL Serum Total Protein 6.4 (6.3-8.2) g/dL Albumin 3.2 L (3.5-5.0) g/dL Slides for Path Review YES 08/20/23 08/20/23 08/20/23 Range/Units 05:42 05:42 06:42 WBC (4.0-10.5) x10^3/uL RBC (4.1-5.4) x10^6/uL Hgb (12.0-16.0) g/dL Hct (35-47) % MCV (78-100) fL MCH (26-32) pg MCHC (32-36) g/dL RDW (11.5-14.0) % Plt Count (150-450) x10^3/uL MPV (7.5-11.0) fL Puncture Site pCO2 (35-45) mmHg pO2 (75-100) mmHg Base Excess (-2.0-2.0) O2 Saturation (94-100) g/dF ABG pH (7.35-7.45) ABG HCO3 (22-28) ABG O2 Sat (Measured) (95-100) % Lucio Test A-a Gradient a/A Ratio Hemoglobin Carboxyhemoglobin (0.0-6.9) % THgb Methemoglobin (1.4-1.5) % Potassium (3.5-5.1) Temperature C POC O2 Flow Rate % Vent Mode Vent Rate /MIN Inspiratory BiPAP Expiratory BiPAP Sodium (137-145) mmol/L Chloride (98-107) mmol/L Carbon Dioxide (22-30) mmol/L Anion Gap (5-15) MEQ/L BUN (7-17) mg/dL Creatinine (0.52-1.04) mg/dL Estimated GFR ML/MIN Glucose (74-106) mg/dL POC Glucometer 156 H (74 to 106) mg/dL Calcium (8.4-10.2) mg/dL Magnesium (1.6-2.3) mg/dL Total Bilirubin (0.2-1.3) mg/dL AST (14-36) U/L ALT (0-35) U/L Alkaline Phosphatase (38-126) U/L Troponin I < 0.012 (0.000-0.034) ng/mL NT-Pro-B Natriuret Pep 2730 (<300) pg/mL Serum Total Protein (6.3-8.2) g/dL Albumin (3.5-5.0) g/dL Slides for Path Review 08/20/23 08/20/23 08/20/23 Range/Units 06:50 07:00 10:57 WBC (4.0-10.5) x10^3/uL RBC (4.1-5.4) x10^6/uL Hgb (12.0-16.0) g/dL Hct (35-47) % MCV (78-100) fL MCH (26-32) pg MCHC (32-36) g/dL RDW (11.5-14.0) % Plt Count (150-450) x10^3/uL MPV (7.5-11.0) fL Puncture Site RIGHT BRACHIAL pCO2 76 H* (35-45) mmHg pO2 149 H* (75-100) mmHg Base Excess 25.7 H (-2.0-2.0) O2 Saturation 97.9 (94-100) g/dF ABG pH 7.45 (7.35-7.45) ABG HCO3 52.8 H* (22-28) ABG O2 Sat (Measured) 98.9 (95-100) % Lucio Test NOT APPLICABLE A-a Gradient 184 a/A Ratio 0.45 Hemoglobin 8.1 Carboxyhemoglobin 1.0 (0.0-6.9) % THgb Methemoglobin 0.0 L (1.4-1.5) % Potassium 3.6 (3.5-5.1) Temperature 37.0 C POC O2 Flow Rate 60 % Vent Mode BiPAP Vent Rate /MIN Inspiratory BiPAP 14 Expiratory BiPAP 6 Sodium (137-145) mmol/L Chloride (98-107) mmol/L Carbon Dioxide (22-30) mmol/L Anion Gap (5-15) MEQ/L BUN (7-17) mg/dL Creatinine (0.52-1.04) mg/dL Estimated GFR ML/MIN Glucose (74-106) mg/dL POC Glucometer 165 H (74 to 106) mg/dL Calcium (8.4-10.2) mg/dL Magnesium 1.3 L (1.6-2.3) mg/dL Total Bilirubin (0.2-1.3) mg/dL AST (14-36) U/L ALT (0-35) U/L Alkaline Phosphatase (38-126) U/L Troponin I (0.000-0.034) ng/mL NT-Pro-B Natriuret Pep (<300) pg/mL Serum Total Protein (6.3-8.2) g/dL Albumin (3.5-5.0) g/dL Slides for Path Review Radiology Exams: Radiology Procedures Category Date Time Status ELADIO/LIMB PRESSURES BILATERAL [US] Routine Exams 08/19/23 13:04 Completed ARTERIAL BILAT LOWER EXTREMITY [US] Routine Exams 08/19/23 06:51 Completed CHEST 1 VIEW (PORTABLE) Stat Exams 08/19/23 17:48 Completed Multi-Disciplinary Progress Notes: Multi-Disciplinary Progress Notes 08/20/23 08:35 Case Management Note by Lyric Hauser PATIENT CRITICALLY ILL AT THIS TIME, ATTEMPTING TO TRANSFER TO HIGHER LEVEL OF CARE. FURTHER DC PLANNING DEFERRED AT THIS TIME. IF PATIENT STAYS HERE AND STABILIZES WITH WORK WITH PATIENT AGAIN ON DC PLANS Initialized on 08/20/23 08:35 - END OF NOTE Assessment/Plan (1) Chest pain in adult Current Visit: No Status: Acute Assessment & Plan: Patient examination and evaluation. Wound to 3rd digit of the right foot debrided revealing ulceration. improvement with measurements almost 1 full cm smaller in length. Radiographs reviewed demonstrating relatively normal anatomy with no concerning pathology. Patient decides against flexor tenotomy. wound healing with no urgency to preform however recurrent issue. 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 Current Visit: No Status: Chronic Code(s): E11.51 - TYPE 2 DIABETES W DIABETIC PERIPHERAL ANGIOPATH W/O GANGRENE; I70.209 - UNSP ATHSCL [place] ARTERIES OF EXTREMITIES, UNSP EXTREMITY (5) Diabetes mellitus type II, uncontrolled Current Visit: No Status: Chronic Qualifiers: Code(s): ABN9128 - (6) CHF (congestive heart failure) Current Visit: No Status: Chronic Code(s): I50.9 - HEART FAILURE, UNSPECIFIED (7) Shortness of breath Current Visit: No Status: Resolved Code(s): R06.02 - SHORTNESS OF BREATH (8) COPD exacerbation Current Visit: No Status: Acute Code(s): J44.1 - CHRONIC OBSTRUCTIVE PULMONARY DISEASE W (ACUTE) EXACERBATION (9) Uncontrolled type 2 diabetes mellitus Current Visit: No Status: Acute Code(s): IED1325 - (10) Diabetic foot ulcer Current Visit: Yes Status: Chronic Code(s): E11.621 - TYPE 2 DIABETES MELLITUS WITH FOOT ULCER; L97.509 - NON-PRESSURE CHRONIC ULCER OTH PRT UNSP FOOT W UNSP SEVERITY (11) Obesity, morbid, BMI 50 or higher Current Visit: Yes Status: Chronic Code(s): E66.01 - MORBID (SEVERE) OBESITY DUE TO EXCESS CALORIES (12) Type 2 diabetes mellitus Current Visit: No Status: Chronic Qualifiers: Diabetes mellitus nursing home insulin use: with nursing home use Diabetes mellitus complication status: with hyperglycemia Qualified Code(s): E11.65 - Type 2 diabetes mellitus with hyperglycemia; Z79.4 - jail (current) use of insulin
--- NOTE | 2023-08-20 11:41 | PCM.DS ---
Discharge Summary Date of Admission: 08/17/23 Date of Discharge: 08/20/2023 Admitting Physician: SAM PIKE MD Consults: Consults on Case 08/18/23 09:08 Consult Podiatry ROUTINE 08/18/23 11:43 Consult Cardiology ROUTINE Primary Care Provider: CALVIN PALOMINO Allergies Allergies cyclobenzaprine HCl [From Flexeril] Allergy (Mild, Verified 07/16/23 13:37) Rash metoclopramide [From Reglan] Allergy (Mild, Verified 07/16/23 13:37) Rash Sulfa (Sulfonamide Antibiotics) [Sulfa(Sulfonamide Antibiotics)] Allergy (Mild, Verified 07/16/23 13:37) Rash adhesive Allergy (Verified 07/16/23 13:37) Rash nalbuphine HCl [From Nubain] Adverse Reaction (Intermediate, Verified 07/16/23 13:37) Stomach Cramps patient states she had stomach "burning" and that her legs felt like "rubber bands" ciprofloxacin [From Cipro] Adverse Reaction (Mild, Verified 07/16/23 13:37) Rash meperidine HCl [From Demerol] Adverse Reaction (Mild, Verified 07/16/23 13:37) Vomiting coban Adverse Reaction (Uncoded 07/09/23 22:30) Itching Hospital Summary - Hospital Course Hospital Course: Admission information: Ms. Muro is a 63 year old female with a past medical history significant for p oorly controlled diabetes, hypertension, hyperlipidemia and obesity who presents to the hospital with complaints of a several month history of increasing weight up to 75lbs, abdominal distention and swelling/pain of her lower extremities. She also reports some vague chest pain and shortness of breath associated with her symptoms. She denies any excessive salt intake in her diet. BNP was somewhat elevated so she was recommended for admission to the hospital with deal with her symptoms. She currently denies any chest pain or palpitations. She denies any nausea, vomiting or diarrhea. She denies any dysuria, hematuria or foamy/frothy appearing urine. Previous HbA1c 12.3 with elevated urine albumin creatinine ratios. Hospital Course: Patient was started on IV diuresis with bumex 1 mg every 8 hours for her heart failure. Echo revealed an ejection fraction of 34%. She complained of ongoing chest pain but troponins were negative several times. EKG did reveal atrial f ibrillation however and she was in RVR. Coreg was increased to 12.5 mg BID per cardiology recommendations but patient ultimately had to be started on metoprolol 25 mg every 6 hours for rate control, in addition to prn 5 mg IVP of metoprolol. In addition, patient started to get more tachypneic and hypoxic yesterday afternoon requiring 6L of oxygen along with lethargy. ABG reveal a normal pH with high pCO2 and bicarb, indicating mixed disorder with respiratory acidosis and metabolic alkalosis. She was started on bipap with some improvement in her work of breathing, ABG and mental status. She is now alert and following commands. Her diuresis was discontinued yesterday evening for fear of further worsening her metabolic alkalosis. Patient is obese and also had COPD which makes ventilation difficult. She would like to be full code. I believe patient needs higher level of care with ICU and cardiology services. She is therefore being transferred to [facility]. She also is being treated for a UTI and has a chronic right 3rd toe ulcer for which podiatry was following her here. Right 3rd toe wound debrided by podiatry by the bedside on 08/18, cultures obtained. Arterial dopplers ordered per podiatry request. She is on ceftriaxone for both her URI and possible cellulitis associated with the toe. No concern for osteomyelitis per podiatry. - Vitals & Intake/Output Vital Signs: Vital Signs Temperature 98.7 F 08/20/23 04:00 Pulse Rate 118 H 08/20/23 07:20 Respiratory Rate 29 H 08/20/23 07:20 Blood Pressure 113/69 08/20/23 06:00 O2 Sat by Pulse Oximetry 99 08/20/23 07:20 Intake & Output: Intake & Output 08/17/23 08/18/23 08/19/23 08/20/23 11:59 11:59 11:59 11:59 Intake Total 920 3017 120 Output Total 2200 1300 Balance 920 817 -1180 Weight 158.1 kg 155.3 kg - Lab Result Diagrams: 08/20/23 04:17 08/20/23 04:17 Lab Results-Last 24 Hrs: Lab Results-Last 24 Hours 08/19/23 08/19/23 08/19/23 Range/Units 11:46 15:50 17:48 WBC (4.0-10.5) x10^3/uL RBC (4.1-5.4) x10^6/uL Hgb (12.0-16.0) g/dL Hct (35-47) % MCV (78-100) fL MCH (26-32) pg MCHC (32-36) g/dL RDW (11.5-14.0) % Plt Count (150-450) x10^3/uL MPV (7.5-11.0) fL Puncture Site rt brach pCO2 81 H* (35-45) mmHg pO2 90 (75-100) mmHg Base Excess 24.7 H (-2.0-2.0) O2 Saturation 96.2 (94-100) g/dF ABG pH 7.42 (7.35-7.45) ABG HCO3 52.5 H* (22-28) ABG O2 Sat (Measured) 98.3 (95-100) % Lucio Test n/a A-a Gradient 122 a/A Ratio 0.42 Hemoglobin 8.7 Carboxyhemoglobin 2.1 (0.0-6.9) % THgb Methemoglobin 0.0 L (1.4-1.5) % Potassium 3.9 (3.5-5.1) Temperature 37.0 C POC O2 Flow Rate 44 % Vent Mode Vent Rate /MIN Inspiratory BiPAP Expiratory BiPAP Sodium (137-145) mmol/L Chloride (98-107) mmol/L Carbon Dioxide (22-30) mmol/L Anion Gap (5-15) MEQ/L BUN (7-17) mg/dL Creatinine (0.52-1.04) mg/dL Estimated GFR ML/MIN Glucose (74-106) mg/dL POC Glucometer 287 H 184 H (74 to 106) mg/dL Calcium (8.4-10.2) mg/dL Magnesium (1.6-2.3) mg/dL Total Bilirubin (0.2-1.3) mg/dL AST (14-36) U/L ALT (0-35) U/L Alkaline Phosphatase (38-126) U/L Troponin I (0.000-0.034) ng/mL NT-Pro-B Natriuret Pep (<300) pg/mL Serum Total Protein (6.3-8.2) g/dL Albumin (3.5-5.0) g/dL Slides for Path Review 08/19/23 08/19/23 08/19/23 Range/Units 18:10 20:03 21:50 WBC (4.0-10.5) x10^3/uL RBC (4.1-5.4) x10^6/uL Hgb (12.0-16.0) g/dL Hct (35-47) % MCV (78-100) fL MCH (26-32) pg MCHC (32-36) g/dL RDW (11.5-14.0) % Plt Count (150-450) x10^3/uL MPV (7.5-11.0) fL Puncture Site RIGHT BRACHIAL LEFT BRACHIAL pCO2 80 H* 78 H* (35-45) mmHg pO2 118 H 100 (75-100) mmHg Base Excess 24.3 H 23.1 H (-2.0-2.0) O2 Saturation 96.7 96.0 (94-100) g/dF ABG pH 7.42 7.42 (7.35-7.45) ABG HCO3 51.9 H* 50.6 H* (22-28) ABG O2 Sat (Measured) 98.1 98.0 (95-100) % Lucio Test NOT APPLICABLE NOT APPLICABLE A-a Gradient 210 230 a/A Ratio 0.36 0.30 Hemoglobin 8.4 8.3 Carboxyhemoglobin 1.2 1.4 (0.0-6.9) % THgb Methemoglobin 0.2 L 0.6 L (1.4-1.5) % Potassium 3.7 3.8 (3.5-5.1) Temperature 37.0 37.0 C POC O2 Flow Rate 60 60 % Vent Mode Vent Rate 16 /MIN Inspiratory BiPAP 14 14 Expiratory BiPAP 6 6 Sodium (137-145) mmol/L Chloride (98-107) mmol/L Carbon Dioxide (22-30) mmol/L Anion Gap (5-15) MEQ/L BUN (7-17) mg/dL Creatinine (0.52-1.04) mg/dL Estimated GFR ML/MIN Glucose (74-106) mg/dL POC Glucometer (74 to 106) mg/dL Calcium (8.4-10.2) mg/dL Magnesium (1.6-2.3) mg/dL Total Bilirubin (0.2-1.3) mg/dL AST (14-36) U/L ALT (0-35) U/L Alkaline Phosphatase (38-126) U/L Troponin I < 0.012 (0.000-0.034) ng/mL NT-Pro-B Natriuret Pep (<300) pg/mL Serum Total Protein (6.3-8.2) g/dL Albumin (3.5-5.0) g/dL Slides for Path Review 08/19/23 08/20/23 08/20/23 Range/Units 21:51 04:17 04:17 WBC 10.5 (4.0-10.5) x10^3/uL RBC 3.30 L (4.1-5.4) x10^6/uL Hgb 7.7 L (12.0-16.0) g/dL Hct 27.9 L (35-47) % MCV 84.5 (78-100) fL MCH 23.3 L (26-32) pg MCHC 27.6 L (32-36) g/dL RDW 17.2 H (11.5-14.0) % Plt Count 109 L (150-450) x10^3/uL MPV 11.8 H (7.5-11.0) fL Puncture Site pCO2 (35-45) mmHg pO2 (75-100) mmHg Base Excess (-2.0-2.0) O2 Saturation (94-100) g/dF ABG pH (7.35-7.45) ABG HCO3 (22-28) ABG O2 Sat (Measured) (95-100) % Lucio Test A-a Gradient a/A Ratio Hemoglobin Carboxyhemoglobin (0.0-6.9) % THgb Methemoglobin (1.4-1.5) % Potassium 3.5 (3.5-5.1) Temperature C POC O2 Flow Rate % Vent Mode Vent Rate /MIN Inspiratory BiPAP Expiratory BiPAP Sodium 131 L (137-145) mmol/L Chloride 84 L (98-107) mmol/L Carbon Dioxide 39 H (22-30) mmol/L Anion Gap 11.5 (5-15) MEQ/L BUN 21 H (7-17) mg/dL Creatinine 0.64 (0.52-1.04) mg/dL Estimated GFR 99.9 ML/MIN Glucose 168 H (74-106) mg/dL POC Glucometer 195 H (74 to 106) mg/dL Calcium 8.6 (8.4-10.2) mg/dL Magnesium (1.6-2.3) mg/dL Total Bilirubin 0.50 (0.2-1.3) mg/dL AST 18 (14-36) U/L ALT 14 (0-35) U/L Alkaline Phosphatase 89 (38-126) U/L Troponin I (0.000-0.034) ng/mL NT-Pro-B Natriuret Pep (<300) pg/mL Serum Total Protein 6.4 (6.3-8.2) g/dL Albumin 3.2 L (3.5-5.0) g/dL Slides for Path Review YES 08/20/23 08/20/23 08/20/23 Range/Units 05:42 05:42 06:42 WBC (4.0-10.5) x10^3/uL RBC (4.1-5.4) x10^6/uL Hgb (12.0-16.0) g/dL Hct (35-47) % MCV (78-100) fL MCH (26-32) pg MCHC (32-36) g/dL RDW (11.5-14.0) % Plt Count (150-450) x10^3/uL MPV (7.5-11.0) fL Puncture Site pCO2 (35-45) mmHg pO2 (75-100) mmHg Base Excess (-2.0-2.0) O2 Saturation (94-100) g/dF ABG pH (7.35-7.45) ABG HCO3 (22-28) ABG O2 Sat (Measured) (95-100) % Lucio Test A-a Gradient a/A Ratio Hemoglobin Carboxyhemoglobin (0.0-6.9) % THgb Methemoglobin (1.4-1.5) % Potassium (3.5-5.1) Temperature C POC O2 Flow Rate % Vent Mode Vent Rate /MIN Inspiratory BiPAP Expiratory BiPAP Sodium (137-145) mmol/L Chloride (98-107) mmol/L Carbon Dioxide (22-30) mmol/L Anion Gap (5-15) MEQ/L BUN (7-17) mg/dL Creatinine (0.52-1.04) mg/dL Estimated GFR ML/MIN Glucose (74-106) mg/dL POC Glucometer 156 H (74 to 106) mg/dL Calcium (8.4-10.2) mg/dL Magnesium (1.6-2.3) mg/dL Total Bilirubin (0.2-1.3) mg/dL AST (14-36) U/L ALT (0-35) U/L Alkaline Phosphatase (38-126) U/L Troponin I < 0.012 (0.000-0.034) ng/mL NT-Pro-B Natriuret Pep 2730 (<300) pg/mL Serum Total Protein (6.3-8.2) g/dL Albumin (3.5-5.0) g/dL Slides for Path Review 08/20/23 08/20/23 08/20/23 Range/Units 06:50 07:00 10:57 WBC (4.0-10.5) x10^3/uL RBC (4.1-5.4) x10^6/uL Hgb (12.0-16.0) g/dL Hct (35-47) % MCV (78-100) fL MCH (26-32) pg MCHC (32-36) g/dL RDW (11.5-14.0) % Plt Count (150-450) x10^3/uL MPV (7.5-11.0) fL Puncture Site RIGHT BRACHIAL pCO2 76 H* (35-45) mmHg pO2 149 H* (75-100) mmHg Base Excess 25.7 H (-2.0-2.0) O2 Saturation 97.9 (94-100) g/dF ABG pH 7.45 (7.35-7.45) ABG HCO3 52.8 H* (22-28) ABG O2 Sat (Measured) 98.9 (95-100) % Lucio Test NOT APPLICABLE A-a Gradient 184 a/A Ratio 0.45 Hemoglobin 8.1 Carboxyhemoglobin 1.0 (0.0-6.9) % THgb Methemoglobin 0.0 L (1.4-1.5) % Potassium 3.6 (3.5-5.1) Temperature 37.0 C POC O2 Flow Rate 60 % Vent Mode BiPAP Vent Rate /MIN Inspiratory BiPAP 14 Expiratory BiPAP 6 Sodium (137-145) mmol/L Chloride (98-107) mmol/L Carbon Dioxide (22-30) mmol/L Anion Gap (5-15) MEQ/L BUN (7-17) mg/dL Creatinine (0.52-1.04) mg/dL Estimated GFR ML/MIN Glucose (74-106) mg/dL POC Glucometer 165 H (74 to 106) mg/dL Calcium (8.4-10.2) mg/dL Magnesium 1.3 L (1.6-2.3) mg/dL Total Bilirubin (0.2-1.3) mg/dL AST (14-36) U/L ALT (0-35) U/L Alkaline Phosphatase (38-126) U/L Troponin I (0.000-0.034) ng/mL NT-Pro-B Natriuret Pep (<300) pg/mL Serum Total Protein (6.3-8.2) g/dL Albumin (3.5-5.0) g/dL Slides for Path Review Micro Results-Entire Visit: Microbiology 08/18/23 10:05 Urine Culture - Final Urine, Indwelling Catheter Escherichia Coli Accuchecks Date 08/19/23 Date 08/19/23 Time 16:22 Time 11:49 - Radiology Exams Ordered Rad Exams-Entire Visit: Radiology Procedures Category Date Time Status ELADIO/LIMB PRESSURES BILATERAL [US] Routine Exams 08/19/23 13:04 Completed ARTERIAL BILAT LOWER EXTREMITY [US] Routine Exams 08/19/23 06:51 Completed CHEST 1 VIEW (PORTABLE) Stat Exams 08/19/23 17:48 Completed - Procedures and Test Procedures and Tests throughout Hospitalization: Therapy Orders & Screens 08/17/23 22:18 Oxygen Nasal Cannula 4 lpm Comment: Diagnosis: Chest pain, acute coronary syndrome Respiratory MDI BID Comment: Diagnosis: Chest pain, acute coronary syndrome Respiratory Therapy Assessment DAILY Comment: Diagnosis: Chest pain, acute coronary syndrome 08/18/23 11:12 EKG STAT Comment: Diagnosis: Chest pain, acute coronary syndrome 08/19/23 21:11 BiPap/CPAP ROUTINE Comment: Diagnosis: CHF, ANASARCA, AFIB W/RVR NEW ONSET 08/20/23 05:27 EKG STAT Comment: Diagnosis: CHF, ANASARCA, AFIB W/RVR NEW ONSET Discharge Exam General Appearance: mild distress, alert Neurologic Exam: alert, oriented x 3, cooperative, normal mood/affect, nml cerebellar function, sensation nml, No motor deficits Eye Exam: PERRL, EOMI, eyes nml inspection Ears, Nose, Throat Exam: normal ENT inspection, pharynx normal, moist mucous membranes Neck Exam: normal inspection, non-tender, supple, full range of motion Respiratory Exam: normal breath sounds, lungs clear, other (on bipap), No respiratory distress Cardiovascular Exam: regular rate/rhythm, normal heart sounds Gastrointestinal/Abdomen Exam: soft, No tenderness, No mass Pelvic Exam: deferred Rectal Exam: deferred Back Exam: normal inspection, normal range of motion, No CVA tenderness, No vertebral tenderness Extremity Exam: normal inspection, normal range of motion, pedal edema (non pitting, 1+), other (distal right 3rd toe wound with black discoloration) Skin Exam: normal color, warm, dry Final Diagnosis/Problem List - Final Discharge Diagnosis/Problem (1) CHF (congestive heart failure) Current Visit: No Status: Acute Code(s): I50.9 - HEART FAILURE, UNSPECIFIED (2) Atrial fibrillation with RVR Current Visit: Yes Status: Acute Code(s): I48.91 - UNSPECIFIED ATRIAL FIBRILLATION (3) Diabetic foot ulcer Current Visit: Yes Status: Chronic Code(s): E11.621 - TYPE 2 DIABETES MELLITUS WITH FOOT ULCER; L97.509 - NON-PRESSURE CHRONIC ULCER OTH PRT UNSP FOOT W UNSP SEVERITY (4) Uncontrolled type 2 diabetes mellitus Current Visit: No Status: Acute Code(s): [id number] - (5) UTI (urinary tract infection) Current Visit: No Status: Acute Code(s): N39.0 - URINARY TRACT INFECTION, SITE NOT SPECIFIED (6) Morbid obesity Current Visit: No Status: Chronic Code(s): E66.01 - MORBID (SEVERE) OBESITY DUE TO EXCESS CALORIES (7) Hypothyroid Current Visit: Yes Status: Chronic Code(s): E03.9 - HYPOTHYROIDISM, UNSPECIF IED (8) Chest pain Current Visit: Yes Status: Acute Code(s): R07.9 - CHEST PAIN, UNSPECIFIED Telemedicine Encounter - Telemedicine Encounter Telemedicine Encounter: The entirety of this encounter was performed via Telemedicine" - Discharge Discharge Date: 08/20/23 Disposition: DC TO OTHER HOSP Condition: Serious Prescriptions: New Metoprolol Tartrate 25 mg [Lopressor 25MG Tab] 25 mg PO Q6H tablet Nitroglycerin 0.4 mg Tablet [Nitrostat 0.4 MG Tablet] 0.4 mg SL Q5MIN PRN MR X 3 PRN PRN Reason: Chest Pain Nystatin Powder 15 gm [Nystop Powder 15 gm] 1 gm TP BID Ceftriaxone 1 GM/50 ML PREMIX* [ROCEPHIN 1 Gm-D5w 50 ml Bag] 1 g IV Q24H10 iv piggy Albuterol Common Canister [Ventolin Common Canister] 2 puff IH Q4H PRN PRN PRN Reason: WHEEZING Continue Mesalamine [Pentasa] 500 mg PO BID Omeprazole 20 MG [Prilosec 20 mg] 20 mg PO BID Duloxetine HCl 60 mg PO DAILY Atorvastatin Calcium 10 mg PO DAILY Levothyroxine Sodium 25 Mcg [Synthroid 25 Mcg] 25 mcg PO DAILY Isosorbide Mononitrate 60 mg [Imdur 60MG] 60 mg PO DAILY Ranolazine 500 MG [Ranexa 500 MG] 500 mg PO BID azaTHIOprine [Azathioprine] 50 mg PO BID Aripiprazole [Abilify] 2 mg PO DAILY Apixaban [Eliquis 5 mg Tablet] 5 mg PO BID Acetaminophen 325 mg [Tylenol 325 mg] 2 tab PO Q4HPRN PRN PRN Reason: Pain Fluticasone/Umeclidin/Vilanter [Trelegy Ellipta 100-62.5-25] 1 puff IH DAILY Insulin Lispro [Humalog Kwikpen U-100] See Rx Instructions .ROUTE .COMPLEX Diclofenac Sodium [Pennsaid] See Rx Instructions .ROUTE .COMPLEX Hydralazine HCl 25 mg PO Q6H PRN PRN PRN Reason: Hypertension Aspirin EC 81 mg [Ecotrin 81 mg] 81 mg PO DAILY Gabapentin 300 mg PO TID Ergocalciferol (Vitamin D2) [Vitamin D2] 1 cap PO WEEKLY Insulin Glargine,Hum.rec.anlog [Flavio Lillietereso] 46 units SQ HS Discontinued Loperamide HCl [Loperamide] 4 mg PO Q12H PRN PRN PRN Reason: Diarrhea Albuterol Sulfate [Proventil Hfa] 2 puff IH Q4HPRN PRN PRN Reason: Shortness Of Breath methocarbamoL [Methocarbamol] 1 tab PO Q6HPRN PRN PRN Reason: Muscle Spasms carvediloL [Carvedilol] 6.25 mg PO BID Furosemide [Lasix] 40 mg PO DAILY Potassium Chloride 8 meq PO DAILY Follow up with: CALVIN PALOMINO [Primary Care Provider] -
[2023-08-20] MEDS: TYLENOL 325 MG PO PRN (13:10)
[2023-08-20] MEDS ORDERED: TROUGH DRUG LEVELS IJ ONE (14:30)
--- NOTE | 2023-08-20 18:29 | TM.IN ---
Tele-Medicine Incident Note - Incident Note Tel-Medicine Incident Note: 08/20/23 1827 Late entry note: Overnight, the patient demonstrated persistent elevation in pCO2 so the patient was moved to the ICU for closer monitoring. During the course of the night, the patient's somnolence improved with BIPAP use but subsequently the patient reported chest pain. There were no acute findings on telemetry or on EKG tracing. Troponin was ordered and analgesia was administeered. Telemedicine Encounter - Telemedicine Encounter Telemedicine Encounter: The entirety of this encounter was performed via Telemedicine"
[2023-08-20] MEDS ORDERED: NITRO-BID 2% UD PACKETS TOP SCH (22:00)
[2023-08-20] MEDS: Lantus Insulin SQ SCH (22:45)
[2023-08-21] MEDS: NORCO 5/325 MG PO PRN (05:19)
[2023-08-21 07:10] VITALS: BP 105/66; TEMP 98.4
[2023-08-21] MEDS: Lopressor 25MG Tab PO SCH (07:49)
[2023-08-21] MEDS: HUMALOG SQ SCH (07:49)
[2023-08-21] MEDS: VENTOLIN COMMON CANISTER IH PRN (07:55)
[2023-08-21] MEDS: Advair Hfa 115/21 Common canister IH SCH (07:55)
[2023-08-21 08:02] VITALS: RESP 22; O2SAT 91
[2023-08-21 08:34] VITALS: PULSE 106
--- NOTE | 2023-08-21 08:59 | PCM.DS ---
Discharge Summary Date of Admission: 08/17/2023 Date of Discharge: 08/21/23 Admitting Physician: SAM PIKE MD Consults: Consults on Case 08/18/23 09:08 Consult Podiatry ROUTINE 08/18/23 11:43 Consult Cardiology ROUTINE Primary Care Provider: CALVIN PALOMINO Allergies Allergies cyclobenzaprine HCl [From Flexeril] Allergy (Mild, Verified 07/16/23 13:37) Rash metoclopramide [From Reglan] Allergy (Mild, Verified 07/16/23 13:37) Rash Sulfa (Sulfonamide Antibiotics) [Sulfa(Sulfonamide Antibiotics)] Allergy (Mild, Verified 07/16/23 13:37) Rash adhesive Allergy (Verified 07/16/23 13:37) Rash nalbuphine HCl [From Nubain] Adverse Reaction (Intermediate, Verified 07/16/23 13:37) Stomach Cramps patient states she had stomach "burning" and that her legs felt like "rubber bands" ciprofloxacin [From Cipro] Adverse Reaction (Mild, Verified 07/16/23 13:37) Rash meperidine HCl [From Demerol] Adverse Reaction (Mild, Verified 07/16/23 13:37) Vomiting coban Adverse Reaction (Uncoded 07/09/23 22:30) Itching Hospital Summary - Hospital Course Hospital Course: Ms. Muro is a 63 year old female with a past medical history significant for poorly controlled diabetes, hypertension, hyperlipidemia and obesity who presents to the hospital with complaints of a several month history of increas ing weight up to 75lbs, abdominal distention and swelling/pain of her lower extremities. She also reports some vague chest pain and shortness of breath associated with her symptoms. She denies any excessive salt intake in her diet. BNP was somewhat elevated so she was recommended for admission to the hospital with deal with her symptoms. She currently denies any chest pain or palpitations. She denies any nausea, vomiting or diarrhea. She denies any dysuria, hematuria or foamy/frothy appearing urine. Previous HbA1c 12.3 with elevated urine albumin creatinine ratios. Hospital Course: Patient was started on IV diuresis with bumex 1 mg every 8 hours for her heart failure. Echo revealed an ejection fraction of 34%. She complained of ongoing chest pain but troponins were negative several times. EKG did reveal atrial fibrillation however and she was in RVR. Coreg was increased to 12.5 mg BID per cardiology recommendations but patient ultimately had to be started on metoprolol 25 mg every 6 hours for rate control, in addition to prn 5 mg IVP of metoprolol. In addition, patient started to get more tachypneic and hypoxic yesterday afternoon requiring 6L of oxygen along with lethargy. ABG reveal a normal pH with high pCO2 and bicarb, indicating mixed disorder with respiratory acidosis and metabolic alkalosis. She was started on bipap with some improvement in her work of breathing, ABG and mental status. She is now alert and following commands. Her diuresis was discontinued yesterday evening for fear of further worsening her metabolic alkalosis. Patient is obese and also had COPD which makes ventilation difficult. She would like to be full code. I believe patient needs higher level of care with ICU and cardiology services. She is therefore being transferred to [facility]. She also is being treated for a UTI and has a chronic right 3rd toe ulcer for which podiatry was following her here. Right 3rd toe wound debrided by podiatry by the bedside on 08/18, cultures obtained. Arterial dopplers ordered per podiatry request. She is on ceftriaxone for both her URI and possible cellulitis associated with the toe. No concern for osteomyelitis per podiatry. 08/21/2023: Patient not transferred yesterday due to unavailability of beds in the ICU. Patient now off bipap, no 4L nasal cannula without any respiratory distress. Still needs cardiology and pulmonary evaluations however with her HFrEF, Afib, chest pains and COPD. Spoke with hospitalist at [facility], patient downgraded to stepdown. - Vitals & Intake/Output Vital Signs: Vital Signs Temperature 98.4 F 08/21/23 07:10 Pulse Rate 106 H 08/21/23 08:00 Respiratory Rate 22 08/21/23 07:59 Blood Pressure 105/66 08/21/23 07:10 O2 Sat by Pulse Oximetry 91 L 08/21/23 07:59 Intake & Output: Intake & Output 08/18/23 08/19/23 08/20/23 08/21/23 11:59 11:59 11:59 11:59 Intake Total 920 3017 120 920 Output Total 2200 1300 1050 Balance 920 817 -1180 -130 Weight 158.1 kg 155.3 kg 155.3 kg - Lab Result Diagrams: 08/20/23 04:17 08/20/23 04:17 Lab Results-Last 24 Hrs: Lab Results-Last 24 Hours 08/20/23 08/20/23 08/20/23 Range/Units 10:57 14:25 16:06 POC Glucometer 165 H 145 H (74 to 106) mg/dL Vancomycin Trough < 5.00 L (10-20) ug/mL 08/20/23 08/21/23 Range/Units 20:57 07:06 POC Glucometer 192 H 152 H (74 to 106) mg/dL Vancomycin Trough (10-20) ug/mL Micro Results-Entire Visit: Microbiology 08/19/23 07:55 Wound Culture - Preliminary Toe - R Third GRAM POSITIVE ID AND SENSITIVITY PENDING 08/18/23 10:05 Urine Culture - Final Urine, Indwelling Catheter Escherichia Coli Accuchecks Date 08/21/23 Date 08/20/23 Time 07:10 Time 16:11 - Radiology Exams Ordered Rad Exams-Entire Visit: Radiology Procedures Category Date Time Status ELADIO/LIMB PRESSURES BILATERAL [US] Routine Exams 08/19/23 13:04 Completed CHEST 1 VIEW (PORTABLE) Stat Exams 08/19/23 17:48 Completed - Procedures and Test Procedures and Tests throughout Hospitalization: Therapy Orders & Screens 08/17/23 22:18 Oxygen Nasal Cannula 4 lpm Comment: Diagnosis: Chest pain, acute coronary syndrome Respiratory MDI BID Comment: Diagnosis: Chest pain, acute coronary syndrome Respiratory Therapy Assessment DAILY Comment: Diagnosis: Chest pain, acute coronary syndrome 08/18/23 11:12 EKG STAT Comment: Diagnosis: Chest pain, acute coronary syndrome 08/19/23 21:11 BiPap/CPAP ROUTINE Comment: Diagnosis: CHF, ANASARCA, AFIB W/RVR NEW ONSET 08/20/23 05:27 EKG STAT Comment: Diagnosis: CHF, ANASARCA, AFIB W/RVR NEW ONSET Discharge Exam General Appearance: no apparent distress, alert Neurologic Exam: alert, oriented x 3, cooperative, normal mood/affect, nml cerebellar function, sensation nml, No motor deficits Eye Exam: PERRL, EOMI, eyes nml inspection Ears, Nose, Throat Exam: normal ENT inspection, pharynx normal, moist mucous membranes Neck Exam: normal inspection, non-tender, supple, full range of motion Respiratory Exam: normal breath sounds, lungs clear, No respiratory distress Cardiovascular Exam: regular rate/rhythm, normal heart sounds Gastrointestinal/Abdomen Exam: soft, No tenderness, No mass Pelvic Exam: deferred Rectal Exam: deferred Back Exam: normal inspection, normal range of motion, No CVA tenderness, No vertebral tenderness Extremity Exam: pedal edema, other (distal right 3rd toe wound with black discoloration.) Skin Exam: other (distal right 3rd toe wound with black discoloration.) Final Diagnosis/Problem List - Final Discharge Diagnosis/Problem (1) CHF (congestive heart failure) Current Visit: No Status: Acute Code(s): I50.9 - HEART FAILURE, UNSPECIFIED (2) Atrial fibrillation with RVR Current Visit: Yes Status: Acute Code(s): I48.91 - UNSPECIFIED ATRIAL FIBRILLATION (3) Diabetic foot ulcer Current Visit: Yes Status: Chronic Code(s): E11.621 - TYPE 2 DIABETES MELLITUS WITH FOOT ULCER; L97.509 - NON-PRESSURE CHRONIC ULCER OTH PRT UNSP FOOT W UNSP SEVERITY (4) Uncontrolled type 2 diabetes mellitus Current Visit: No Status: Acute Code(s): VIP7852 - (5) UTI (urinary tract infection) Current Visit: No Status: Acute Code(s): N39.0 - URINARY TRACT INFECTION, SITE NOT SPECIFIED (6) Morbid obesity Current Visit: No Status: Chronic Code(s): E66.01 - MORBID (SEVERE) OBESITY DUE TO EXCESS CALORIES (7) Hypothyroid Current Visit: Yes Status: Chronic Code(s): E03.9 - HYPOTHYROIDISM, UNSPECIFIED (8) Chest pain Current Visit: Yes Status: Acute Code(s): R07.9 - CHEST PAIN, UNSPECIFIED Telemedicine Encounter - Telemedicine Encounter Telemedicine Encounter: The entirety of this encounter was performed via Telemedicine" - Discharge Disposition: DC TO OTHER HOSP Condition: Serious Prescriptions: New Metoprolol Tartrate 25 mg [Lopressor 25MG Tab] 25 mg PO Q6H tablet Nitroglycerin 0.4 mg Tablet [Nitrostat 0.4 MG Tablet] 0.4 mg SL Q5MIN PRN MR X 3 PRN PRN Reason: Chest Pain Nystatin Powder 15 gm [Nystop Powder 15 gm] 1 gm TP BID Ceftriaxone 1 GM/50 ML PREMIX* [ROCEPHIN 1 Gm-D5w 50 ml Bag] 1 g IV Q24H10 iv piggy Albuterol Common Canister [Ventolin Common Canister] 2 puff IH Q4H PRN PRN PRN Reason: WHEEZING Continue Mesalamine [Pentasa] 500 mg PO BID Omeprazole 20 MG [Prilosec 20 mg] 20 mg PO BID Duloxetine HCl 60 mg PO DAILY Atorvastatin Calcium 10 mg PO DAILY Levothyroxine Sodium 25 Mcg [Synthroid 25 Mcg] 25 mcg PO DAILY Isosorbide Mononitrate 60 mg [Imdur 60MG] 60 mg PO DAILY Ranolazine 500 MG [Ranexa 500 MG] 500 mg PO BID azaTHIOprine [Azathioprine] 50 mg PO BID Aripiprazole [Abilify] 2 mg PO DAILY Apixaban [Eliquis 5 mg Tablet] 5 mg PO BID Acetaminophen 325 mg [Tylenol 325 mg] 2 tab PO Q4HPRN PRN PRN Reason: Pain Fluticasone/Umeclidin/Vilanter [Trelegy Ellipta 100-62.5-25] 1 puff IH DAILY Insulin Lispro [Humalog Kwikpen U-100] See Rx Instructions .ROUTE .COMPLEX Diclofenac Sodium [Pennsaid] See Rx Instructions .ROUTE .COMPLEX Hydralazine HCl 25 mg PO Q6H PRN PRN PRN Reason: Hypertension Aspirin EC 81 mg [Ecotrin 81 mg] 81 mg PO DAILY Gabapentin 300 mg PO TID Ergocalciferol (Vitamin D2) [Vitamin D2] 1 cap PO WEEKLY Insulin Glargine,Hum.rec.anlog [[place] Solostar] 46 units SQ HS Discontinued Loperamide HCl [Loperamide] 4 mg PO Q12H PRN PRN PRN Reason: Diarrhea Albuterol Sulfate [Proventil Hfa] 2 puff IH Q4HPRN PRN PRN Reason: Shortness Of Breath methocarbamoL [Methocarbamol] 1 tab PO Q6HPRN PRN PRN Reason: Muscle Spasms carvediloL [Carvedilol] 6.25 mg PO BID Furosemide [Lasix] 40 mg PO DAILY Potassium Chloride 8 meq PO DAILY Follow up with: CALVIN PALOMINO [Primary Care Provider] -
== END 2023-08-21 09:05 | disposition short-term general hospital (02) | DRG 264 ==
LOC: ED 15:33 → MED SURG 21:49 → OBSVTOIN 08-18 14:06 → ICU 08-19 21:59
PROVIDERS: ADMIT Internal Medicine Nephrology; ATTEND Internal Medicine Nephrology
PROC: 0JBQ0ZZ Excision of Right Foot Subcutaneous Tissue and Fascia, Open Approach (ICD-10-PCS; principal; 2023-08-18)
DX: I11.0 Hypertensive heart disease with heart failure (principal); I48.20 Chronic atrial fibrillation, unspecified; J44.1 Chronic obstructive pulmonary disease with (acute) exacerbation; N39.0 Urinary tract infection, site not specified; I50.9 Heart failure, unspecified; L97.519 Non-pressure chronic ulcer of other part of right foot with unspecified severity; E11.621 Type 2 diabetes mellitus with foot ulcer; R07.9 Chest pain, unspecified; E03.9 Hypothyroidism, unspecified; S81.801A Unspecified open wound, right lower leg, initial encounter; E11.51 Type 2 diabetes mellitus with diabetic peripheral angiopathy without gangrene; I70.201 Unspecified atherosclerosis of native arteries of extremities, right leg; R06.02 Shortness of breath; I16.0 Hypertensive urgency; E66.01 Morbid (severe) obesity due to excess calories; E78.5 Hyperlipidemia, unspecified; I25.10 Atherosclerotic heart disease of native coronary artery without angina pectoris; R41.82 Altered mental status, unspecified; R60.1 Generalized edema; Z20.828 Contact with and (suspected) exposure to other viral communicable diseases; Z79.01 Long term (current) use of anticoagulants; Z79.899 Other long term (current) drug therapy; Z79.4 Long term (current) use of insulin
CPT/HCPCS: 11042; 36000; 36415; 36600; 71045; 73630; 80053; 80069; 80202; 81001; 82375; 82570; 82803; 82947; 83605; 83735; 83880; 84156; 84300; 84443; 84484; 85025; 85027; 85379; 87070; 87077; 87086; 87186; 93005; 93041; 93268; 93306; 93922; 93925; 94002; 94003; 94640; 94760; 94762; 96374; 99223; 99232; 99284; G0378; Q3014; J0696; J1817; J1885; J2543; A9270-GY; J3370; J3475